=== PATIENT | female | born 1945 | race Caucasian/White ===

== ENCOUNTER → 2017-02-06 | Outpatient (CLI) | payer MEDICARE, MEDICAID ==
[~2017-02-06] MED LIST: AC325T; ACET-1697 PO; ACET-2267 PO; ACET325T38 PO; ACET650S15 PR; ACTOS15 MG PO; ALBU17AE23 IH; ALBU2.5V4 NEB; ALBU8.5H2 IH; AMLO10TA PO; AMLO10TA2 PO; AMLO10TA82 PO; AMLO5TAB2 GT; AMLO5TAB2 PO; ASP81CT PO; ASPI-266 PO; BISA10SU6 RC; BUPR150T14 PO; BUPR300T51 PO; BUSP10TA95 PO; BUSP15TA60 PO; CARV12.53 PO; CEFD300C3 PO; CEFP250T2 PO; CETI10TA17 PO; CHOL200059 PO; CHOL400T43 PO; CHOL500050 PO; CINN500C7 PO; CIPR500T4 PO; CLN.1T PO; CLOB15CR3 TP; CLON0.1T PO; CLON1PAT33 TD; CNC1KV IJ; CPR500T PO; CYCL10TA9 PO; DEXL60CA5 PO; DEXT1TAB3 PO; DIGO125T PO; DIGO250T PO; DIVA-20; DOCU-143 PO; ESTR42.52 VG; FAMO20TA5 PO; FESO8TAB PO; FLUT16SP22 NS; FNT.05A2 IV; FRSM20T PO; FURO20TA4 PO; FURO40TA4 PO; GABA-486 PO; GABA-488 PO; HCT25T PO; HYDR-3583 PO; HYDR-3729 PO; HYDR-3731 PO; HYDR-3812 PO; HYDR-3816 PO; HYDR-3820 PO; HYDR-3923 PO; HYDR-756 PO; HYDR1TAB PO; HYDR25TA4 PO; HYDR473S17 GT; IMIP50TA2 PO; INSU100C4 SQ; INSU100I10 SQ; INSU100I14 SC; INSU100I14 SQ; INSU100I16 SQ; INSU100I29 SC; INSU100V3 SC; INSU100V3 SQ; INSU100V5 SQ; IRB150T; ISOS30TA3 PO; KETO120S11 TOP; KETO120S11 TP; KETO15CR TP; LACT10SO PO; LACT10SO46 PO; LACT1CAP62 PO; LEVO500T80 PO; LEVO750T9 PO; LINA5TAB PO; LISD70CA3; LISI-552 PO; LISI1TAB10 PO; LISI20TA PO; LISI40TA PO; LORA-407 PO; LORA1TAB PO; LORA2TAB PO; MAG355OR16 PO; MAGN400O7 PO; MAGN400T39 PO; MAGN400T6 PO; MAX FREEZE TOP; METF-380 PO; METF1000 PO; METF500T4 PO; METH20TA9 PO; METH85CR TP; MULT-35 PO; NAPR-243 PO; NF-ESOM40C PO; NITR100C3 PO; NYST1000 PO; OMEG1CAP74 PO; ONDA4TAB8 PO; ONDA4VIA28 IV; OXCA300T PO; OXCA600T PO; PARO20TA57 PO; PHEN57OI3 RC; PHENOL MM; POLY17PO6 PO; POTA10CA43 PO; POTA10TA10 PO; POTA10TA6 PO; POTA20TA15 PO; PRAV10TA PO; PREG75CA PO; PRIM250T PO; PRM25T PO; PROC10TA PO; PROC10TA23 PO; PROM25TA14 PO; PROP20TA5 PO; PROP80TA3 PO; QUET100T69 PO; QUET25TA73 PO; QUET50TA55 PO; RANI150T15 PO; RIVA20TA PO; RIVA20TA2 PO; RT-ALBUINH IH; SCR1T1 PO; SENN-1 PO; SENN-140 PO; SITA1TAB2; SODIUM PHENOLATE MM; SUCR1TAB PO; SUCR1TAB36 PO; TOPI200T19 PO; TRAM50TA2 PO; TROS20TA3 PO; VANC1PLA3 IV; WARF7.5T PO; WRF10T PO; WRF5T PO; [UNRECOGNIZED DRUG - CODE]
--- OUTSIDE RECORDS SUMMARY | 2017-02-06 11:54 | XMS REPORT | Continuity of Care Document ---
Author Author [facility] Organization [facility] Address Unknown Phone Unavailable Care Team Providers Care Bath Mixer Name Role Phone PCP Unavailable Source Comments Some departments are not documenting in the electronic medical record. If you do not see the information that you expected, contact Release of Information in the Health Information Management department at [phone] for further assistance in locating additional records.[facility] Active Allergies and Adverse Reactions Allergen Noted Date Severity Reactions Comments Codeine 02/05/2013 NAUSEA AND VOMITING Estrace 02/05/2013 HEADACHE, NAUSEA AND VOMITING, DIZZINESS Pcn 02/05/2013 NAUSEA AND VOMITING Sulfur 02/05/2013 NAUSEA AND VOMITING Current Medications Prescription Sig. Disp. Refills Start End Date Status Date furosemide (LASIX) 20 mg Take 20 mg by mouth Active tablet daily. potassium chloride(+) Take 10 mEq by mouth Active (MICRO-K) 10 mEq capsule daily. primidone (MYSOLINE) 250 Take 250 mg by mouth Active mg tablet every 6 hours. prochlorperazine Take 10 mg by mouth every Active (COMPAZINE) 10 mg tablet 6 hours as needed. propranolol (INDERAL) 80 Take 80 mg by mouth three Active mg tablet times daily. traMADol (ULTRAM) 50 mg Take 50 mg by mouth every Active tablet 6 hours as needed. esomeprazole DR(+) Take 40 mg by mouth every Active (NEXIUM) 40 mg capsule morning. albuterol (VENTOLIN HFA, Inhale 2 Puffs by mouth Active PROAIR HFA) 90 every 6 hours as needed. mcg/actuation inhaler rosiglitazone/metFORMIN Take by mouth twice Active (AVANDAMET) 12/999 mg daily with meals. tablet insulin aspart (NOVOLOG) Inject 5 Units into Active 100 unit/mL flexPEN area(s) as directed three times daily with meals. 4 units with breakfast and 5 units with dinner promethazine (PHENERGAN) Take 12.5 mg by mouth Active 25 mg tablet every 6 hours as needed. LORazepam (ATIVAN) 2 mg Take 2 mg by mouth every Active tablet 6 hours as needed. methylphenidate CD Take 20 mg by mouth daily Active (METADATE CD) 20 mg before breakfast capsule topiramate (TOPAMAX) 200 Take 200 mg by mouth Active mg tablet twice daily. OXcarbazepine (TRILEPTAL) Take 300 mg by mouth Active 300 mg tablet twice daily. aspirin EC 81 mg tablet Take 81 mg by mouth Active daily. warfarin (COUMADIN) 10 mg Take 10 mg by mouth Active tablet daily. pravastatin (PRAVACHOL) Take 10 mg by mouth Active 10 mg tablet daily. fesoterodine ER(+) Take by mouth. 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 She had CT scans on 09/05 and 01/07 for non-specific right lower quadrant abdominal pain. The first CT in 09/05 did not mention AML of right kidney, but it appears that they were present on review. CT in December mentioned AML. Referred here by Dr. Luz for further evaluation. Both CT scans were non-contrast (stone protocol). L ast Assessment & Plan: Patient with 2 small AMLs of right kidney. Not likely source of her right lower quadrant discomfort (which appears either more musculoskeletal or GI in nature). I do recommend a renal ultrasound to ensure no other masses not fully evaluated on non-contrast CT scan. She would prefer to get closer to home. Given small size of angiomyolipomas and no evidence of bleeding, she does not require any intervention for those at this time. -- Renal ultrasound in 2-3 months to ensure stability of AMLs and evaluate for any additional lesions/masses. Patient will get done locally and send me results. -- F/U with Dr. Sethi in [place] for further urological issues (already has an appointment with him) -- Patient to call with any questions -- Warnings given to patient who expressed understanding. Chronic right flank pain 02/05/2013 Overview: Patient with right lower quadrant/flank pain for several months. Usually dull at best, but occasionally sharp. Has history of kidney stones, but none on recent imaging. Patient on oxycodone for pain. L ast Assessment & Plan: Kidney lesions not likely source of pain. Patient is also taking oxycodone ever 6 hours since that is the way it was prescribed. -- I have recommended that she taper off the oxycodone and start on plain tylenol since it does not appear her pain is bad enough to require narcotics -- Continue to monitor discomfort -- Stay on current bowel regimen Social History Tobacco Use Types Packs/Day Years Used Date Former Smoker Smokeless Tobacco: Never Used Alcohol Use Drinks/Week oz/Week Comments No Last Filed Vital Signs Vital Sign Reading Time Taken Blood Pressure 155/72 02/05/2013 1:30 PM CDT Pulse 89 02/05/2013 1:30 PM CDT Temperature - - Respiratory Rate - - Height 1.727 m (5' 8") 02/05/2013 1:30 PM CDT Weight 107.049 kg (236 lb) 02/05/2013 1:30 PM CDT Body Mass Index 35.89 02/05/2013 1:30 PM CDT Oxygen Saturation - - Plan of Care Health Maintenance Due Date Last Done Comments Physical (Comprehensive) 1951 Exam Pertussis Vaccine 1955 Tetanus Vaccine 1961 Breast Cancer Screening 1984 Colorectal Cancer 1994 Screening Shingles Vaccine 2004 Osteoporosis Screening 2009 Prevnar/Pneumovax (#1) 2009 Influenza Vaccine 07/26/2016 Results from Last 3 Months Not on file
--- NOTE | 2017-02-07 09:08 | ECHOCARDIOGRAPHY REPORT ---
PROCEDURE PHYSICIAN: SHEELA BANUELOS DATE OF PROCEDURE: 02/06/2017 TWO DIMENSIONAL ECHOCARDIOGRAM REPORT PRIMARY PHYSICIAN: OTHER PHYSICIAN: REFERRING PHYSICIAN: Dr. Lb Christine ORDERING PHYSICIAN: INDICATION FOR THE PROCEDURE: 1. Chest pain. 2. Atrial fibrillation. MEASUREMENTS DERIVED VALUES LV DIAMETER (LAX) NORMALS NORMALS Diastolic 4.5 (3.6-5.2) Eject. Fract. 60% (60%+/-6%) Systolic (2.3-3.9) Diastolic Vol. % Shortening (0.22-0.42) Systolic Vol. Aortic Root IVS THICKNESS Diastolic 1.2 (0.6-1.1) LVPW THICKNESS Diastolic 1.2 (0.6-1.1) LA DIAMETER Systolic 3.7 (2.1-3.7) FINDINGS: 1. Technical quality is good. 2. The left ventricle is normal in size with mild left ventricular hypertrophy noted diffusely. Systolic function appeared to be normal. Estimated ejection fraction 60%. 3. The left atrium is normal in size. No clot or thrombus were seen within the left atrium. 4. The right atrium and right ventricle are normal in size. No clot or thrombus were seen within the right side. 5. Mitral valve is calcified with mild to moderate mitral regurgitation noted by color Doppler flow. No mitral valve prolapse. No mitral valve stenosis. 6. Aortic valve is calcified. Doppler across the aortic valve estimated the peak gradient of 15 mmHg, mean gradient of 9 mmHg. There is no significant aortic valve stenosis. Mild aortic regurgitation noted by color Doppler flow. 7. Tricuspid valve is normal in morphology with mild tricuspid regurgitation noted by color Doppler flow. Doppler across tricuspid valve estimated pulmonary artery pressure of 42+ right atrial pressure. 8. Pulmonic valve is functioning normally. 9. No pericardial effusion. IN CONCLUSION: 1. Mild left ventricular hypertrophy with normal systolic function. Estimated ejection fraction 60%. 2. 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 3. Calcified aortic valve with trivial aortic valve stenosis. Mild aortic regurgitation. 4. Pulmonary hypertension with estimated pulmonary artery pressure of 50 mmHg. Job ID: [id number] Dictated Date: 02/06/2017 16:26:46 Sap Hana Developer Date: 02/07/2017 09:04:24 / ruperto
== END ==
LOC: CARD 11:50
PROVIDERS: ATTEND Internal Medicine Cardiovascular Disease
DX: I48.0 Paroxysmal atrial fibrillation (principal); R07.9 Chest pain, unspecified; I10 Essential (primary) hypertension; E78.2 Mixed hyperlipidemia; G25.0 Essential tremor
CPT/HCPCS: 93306

== ENCOUNTER 2017-03-04 22:17 | Observation (INO) | payer MEDICARE, MEDICAID ==
[~2017-03-04] VITALS: Ht 172.7 cm; Wt 91.3 kg
[~2017-03-04 22:17] MED LIST changes: -CHOL500050 PO; -CIPR500T4 PO; -CNC1KV IJ; -DIGO125T PO; -HYDR-3729 PO; -HYDR-756 PO; -LINA5TAB PO; -PREG75CA PO; -TROS20TA3 PO
[2017-03-04] MEDS ORDERED: ASPIRIN 81 MG CHEW (CHILDREN'S ASA) PO ONE (22:30)
[2017-03-04 22:35] LABS: BASOPHILS # (AUTO) 0.1 10^3/uL (0.0-0.1); BASOPHILS % (AUTO) 1 % (0-10); EOSINOPHILS # (AUTO) 0.2 10^3/uL (0.0-0.3); EOSINOPHILS % (AUTO) 2 % (0-10); LYMPHOCYTES # (AUTO) 3.7 X 10^3 (1.0-4.0); LYMPHOCYTES % (AUTO) 30 % (12-44); MEAN CORPUSCULAR HEMOGLOBIN 30 PG (25-34); MEAN CORPUSCULAR HGB CONC 33 G/DL (32-36); MEAN CORPUSCULAR VOLUME 90 FL (80-99); MONOCYTES # (AUTO) 0.8 X 10^3 (0.0-1.0); MONOCYTES % (AUTO) 6 % (0-12); NEUTROPHILS # (AUTO) 7.8 X 10^3 (1.8-7.8); NEUTROPHILS % (AUTO) 62 % (42-75); PLATELET COUNT 262 10^3/uL (130-400); RED BLOOD COUNT 4.79 10^6/uL (4.35-5.85); RED CELL DISTRIBUTION WIDTH 14.3 % (10.0-14.5); WHITE BLOOD COUNT 12.6 10^3/uL (4.3-11.0)
[2017-03-04 22:45] LABS: INR 1.2 (0.8-1.4); PROTHROMBIN TIME PATIENT 14.8 SEC (12.2-14.7)
[2017-03-04] MEDS ORDERED: LINA5TAB PO (22:47)
[2017-03-04] MEDS ORDERED: METF500T4 PO (22:47)
[2017-03-04] MEDS ORDERED: TROS20TA3 PO (22:47)
[2017-03-04] MEDS ORDERED: PREG75CA PO (22:47)
[2017-03-04 22:52] LABS: ALANINE AMINOTRANSFERASE 20 U/L (0-55); ALBUMIN 3.3 G/DL (3.2-4.5); ANION GAP 13 MMOL/L (5-14); ASPARTATE AMINO TRANSFERASE 60 U/L (5-34); BILIRUBIN,TOTAL 0.4 MG/DL (0.1-1.0); BLOOD UREA NITROGEN 12 MG/DL (7-18); BUN/CREATININE RATIO 14; CALCIUM 9.5 MG/DL (8.5-10.1); CARBON DIOXIDE 29 MMOL/L (21-32); CHLORIDE 102 MMOL/L (98-107); CREATININE SERUM 0.84 MG/DL (0.60-1.30); GFR ESTIMATED > 60; GLUCOSE 117 MG/DL (70-105); POTASSIUM 2.9 MMOL/L (3.6-5.0); SODIUM 144 MMOL/L (135-145); TOTAL PROTEIN 7.3 G/DL (6.4-8.2)
[2017-03-04 22:59] LABS: MYOGLOBIN SERUM 30.2 NG/ML (10.0-92.0)
[2017-03-04 23:11] VITALS: BP 173/80
[2017-03-04] MEDS ORDERED: NS W/KCL 20 MEQ/L 1,000 ML IV ONE (23:30)
[2017-03-05] VITALS (13 sets, daily range): BP systolic 170–215; BP diastolic 85–104
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
[2017-03-05] MEDS ORDERED: HYDROcodone/APAP 5 MG/325 MG (LORTAB) TAB PO ONE (00:45)
[2017-03-05] MEDS ORDERED: NITROGLYCERIN SUBLINGUAL 0.4 MG TAB (NITROSTAT) SL PRN (01:30)
[2017-03-05] MEDS ORDERED: morphine INJ 4 MG/ML 1 ML (VIAL/SYRINGE) IV PRN (01:30)
[2017-03-05] MEDS: NS W/KCL 40 MEQ/L 1,000 ML IV SCH ×2 (01:59→09:30)
[2017-03-05] MEDS ORDERED: lisINopril 20 MG (ZESTRIL) TAB PO ONE (04:30)
[2017-03-05 05:05] LABS: BASOPHILS # (AUTO) 0.1 10^3/uL (0.0-0.1); BASOPHILS % (AUTO) 1 % (0-10); EOSINOPHILS # (AUTO) 0.1 10^3/uL (0.0-0.3); EOSINOPHILS % (AUTO) 1 % (0-10); LYMPHOCYTES # (AUTO) 2.7 X 10^3 (1.0-4.0); LYMPHOCYTES % (AUTO) 18 % (12-44); MEAN CORPUSCULAR HEMOGLOBIN 30 PG (25-34); MEAN CORPUSCULAR HGB CONC 33 G/DL (32-36); MEAN CORPUSCULAR VOLUME 91 FL (80-99); MEAN PLATELET VOLUME 11.8 FL (7.4-10.4); MONOCYTES # (AUTO) 0.8 X 10^3 (0.0-1.0); MONOCYTES % (AUTO) 5 % (0-12); NEUTROPHILS # (AUTO) 11.3 X 10^3 (1.8-7.8); NEUTROPHILS % (AUTO) 76 % (42-75); PLATELET COUNT 243 10^3/uL (130-400); RED CELL DISTRIBUTION WIDTH 14.2 % (10.0-14.5); WHITE BLOOD COUNT 14.9 10^3/uL (4.3-11.0)
[2017-03-05 05:32] LABS: ANION GAP 13 MMOL/L (5-14); BLOOD UREA NITROGEN 11 MG/DL (7-18); BUN/CREATININE RATIO 15; CALCIUM 9.2 MG/DL (8.5-10.1); CARBON DIOXIDE 23 MMOL/L (21-32); CHLORIDE 106 MMOL/L (98-107); CREATININE SERUM 0.73 MG/DL (0.60-1.30); GFR ESTIMATED > 60; GLUCOSE 173 MG/DL (70-105); POTASSIUM 3.6 MMOL/L (3.6-5.0); SODIUM 142 MMOL/L (135-145)
[2017-03-05 06:01] LABS: CHOLESTEROL 165 MG/DL (< 200); DIRECT LDL 81 MG/DL (1-129); TRIGLYCERIDES 107 MG/DL (<150); VLDL CHOLESTEROL 21 MG/DL (5-40)
--- NOTE | 2017-03-05 07:19 | Consultation-Cardiology ---
HPI-Cardiology Cardiology Consultation Date of Consultation 03/05/17 Date of Admission Indication: chest pain HPI 71 years old lady with history of mild coronary artery disease per cardiac catheterization done twice in 2010 and 2013. Was in her usual state of health until last night while she was laying down in bed she had sudden onset sharp chest pain in the retrosternal area, continue to wax and wane, came into the emergency room where she was admitted. She was hypertensive. Currently feeling better although her blood pressure has been elevated for the past week. Denied any palpitation, no syncope, noted to be in atrial fibrillation. Home Medications & Allergies Allergies: Coded Allergies: Penicillins (Verified Allergy, Mild, 09/15/15) codeine (Verified Allergy, Mild, PT TAKES HYDROCODONE AT HOME, 10/17/15) nitrofurantoin (Verified Allergy, Mild, RASH, 11/13/14) ITCHING/RASH sulfur dioxide (Verified Allergy, Unknown, 09/15/15) Home Medication List Reviewed: Yes JVG-Valbph-Fzorug Hx Patient Social History Marital Status: Employed/Student: retired Alcohol Use: Denies Use Recreational Drug Use: No Smoking Status: Never a Smoker 2nd Hand Smoke Exposure: No Recent Foreign Travel: No Recent Infectious Disease Expo: No Recent Hopitalizations: No Physical Abuse Screen: No Sexual Abuse: No Immunizations Up To Date Tetanus Booster (TDap): Unknown Date of Pneumonia Vaccine: Sep 05, 2012 Date of Influenza Vaccine: Aug 25, 2015 Past Medical History past medical history as discussed below Family Medical History Significant Family History: No Pertinent Family Hx Family History: G8 BROTHER FH: cancer G8 SISTER FH: kidney cancer G8 BROTHER Diabetes mellitus G8 BROTHER BULBAR POLIO UNCLE Diabetes mellitus Constitutional: see HPI, malaise, weakness EENTM: no symptoms reported, see HPI Respiratory: no symptoms reported, see HPI Cardiovascular: see HPI, chest pain, No edema, No Hx of Intervention, No palpitations, No syncope, No vascular heart diseas, No other Gastrointestinal: no symptoms reported, see HPI Genitourinary: no symptoms reported, see HPI Musculoskeletal: no symptoms reported, see HPI Skin: no symptoms reported, see HPI Psychiatric/Neurological: No Symptoms Reported, See HPI Reviewed Test Results Reviewed Test Results Lab Laboratory Tests Test 03/04/17 22:25 03/05/17 04:50 Range/Units White Blood Count 12.6 H 14.9 H 4.3-11.0 10^3/uL Red Blood Count 4.79 4.20 L 4.35-5.85 10^6/uL Hemoglobin 14.2 12.6 11.5-16.0 G/DL Hematocrit 43 38 35-52 % Mean Corpuscular Volume 90 91 80-99 FL Mean Corpuscular Hemoglobin 30 30 25-34 PG Mean Corpuscular Hemoglobin Concent 33 33 32-36 G/DL Red Cell Distribution Width 14.3 14.2 10.0-14.5 % Platelet Count 262 243 130-400 10^3/uL Mean Platelet Volume 12.0 H 11.8 H 7.4-10.4 FL Neutrophils (%) (Auto) 62 76 H 42-75 % Lymphocytes (%) (Auto) 30 18 12-44 % Monocytes (%) (Auto) 6 5 0-12 % Eosinophils (%) (Auto) 2 1 0-10 % Basophils (%) (Auto) 1 1 0-10 % Neutrophils # (Auto) 7.8 11.3 H 1.8-7.8 X 10^3 Lymphocytes # (Auto) 3.7 2.7 1.0-4.0 X 10^3 Monocytes # (Auto) 0.8 0.8 0.0-1.0 X 10^3 Eosinophils # (Auto) 0.2 0.1 0.0-0.3 10^3/uL Basophils # (Auto) 0.1 0.1 0.0-0.1 10^3/uL Prothrombin Time 14.8 H 12.2-14.7 SEC INR Comment 1.2 0.8-1.4 Activated Partial Thromboplast Time 30 24-35 SEC Sodium Level 144 142 135-145 MMOL/L Potassium Level 2.9 L 3.6 3.6-5.0 MMOL/L Chloride Level 102 106 98-107 MMOL/L Carbon Dioxide Level 29 23 21-32 MMOL/L Anion Gap 13 13 5-14 MMOL/L Blood Urea Nitrogen 12 11 7-18 MG/DL Creatinine 0.84 0.73 0.60-1.30 MG/DL Estimat Glomerular Filtration Rate > 60 > 60 BUN/Creatinine Ratio 14 15 Glucose Level 117 H 173 H 70-105 MG/DL Calcium Level 9.5 9.2 8.5-10.1 MG/DL Magnesium Level 2.0 1.8-2.4 MG/DL Total Bilirubin 0.4 0.1-1.0 MG/DL Aspartate Amino Transf (AST/SGOT) 60 H 5-34 U/L Alanine Aminotransferase (ALT/SGPT) 20 0-55 U/L Alkaline Phosphatase 65 40-136 U/L Myoglobin 30.2 10.0-92.0 NG/ML Troponin I < 0.30 < 0.30 <0.30 NG/ML C-Reactive Protein High Sensitivity 0.53 H 0.00-0.50 MG/DL Total Protein 7.3 6.4-8.2 G/DL Albumin 3.3 3.2-4.5 G/DL Digoxin Level < 0.30 L 0.80-2.00 NG/ML Triglycerides Level 107 <150 MG/DL Cholesterol Level 165 < 200 MG/DL LDL Cholesterol Direct 81 1-129 MG/DL VLDL Cholesterol 21 5-40 MG/DL HDL Cholesterol 61 H 40-60 MG/DL Physical Exam Vital Signs Vital Sign - Last 12Hours Capillary Refill : Less Than 3 Seconds General Appearance: No Apparent Distress, WD/WN Eyes: Bilateral Eye EOMI, Bilateral Eye Normal Inspection, Bilateral Eye PERRL HEENT: PERRL/EOMI, TMs Normal, Normal ENT Inspection, Pharynx Normal Neck: Full Range of Motion, Normal Inspection, Non Tender, Supple, Carotid Bruit Respiratory: Chest Non Tender, Lungs Clear, Normal Breath Sounds, No Accessory Muscle Use, No Respiratory Distress Cardiovascular: No Edema, No Gallop, No JVD, Normal Peripheral Pulses, Systolic Murmur, Irregularly Irregular Gastrointestinal: Normal Bowel Sounds, No Organomegaly, No Pulsatile Mass, Non Tender, Soft Back: Normal Inspection, No CVA Tenderness, No Vertebral Tenderness Extremity: Normal Capillary Refill, Normal Inspection, Normal Range of Motion, Non Tender, No Calf Tenderness, Pedal Edema Neurologic/Psychiatric: Alert, Oriented x3, No Motor/Sensory Deficits, Normal Mood/Affect Skin: Normal Color, Warm/Dry Lymphatic: No Adenopathy A/P-Cardiology Admission Diagnosis chest pain nonspecific etiology Hypertensive emergency Paroxysmal atrial fibrillation Coronary artery disease Assessment/Plan Chest pain nonspecific etiology, atypical in presentation, extensive cardiac workup in the past, so far her EKG showed atrial fibrillation with occasional PVCs, cardiac enzymes has been normal. I reassured her, it could be secondary to her elevated blood pressure or gastroesophageal reflux disease noncardiac pain. Coronary artery disease, cardiac catheterization was carried out in 2010 and it was normal, repeat cardiac catheterization was done in October 2014 with IVS done by Dr. Carney and showed 30-40 percent stenosis in the LAD, 10 percent stenosis in the left main, nonobstructive disease. Cardiac enzymes are normal at this time. Paroxysmal atrial fibrillation, status post electrical cardioversion, back to atrial fibrillation. Rate is controlled, maintained on Coreg 12.5 mg twice daily. Hypertensive emergency, poorly controlled. History of syncope in the past. I will add lisinopril and evaluate her tolerance and response. History of Syncope-unknown etiology. Patient underwent cardiac catheterization in 2013 revealing nonobstructive disease. Tilt table test negative, 2-D echocardiogram revealed normal EF. Patient denies any further episodes. Continue to monitor. [id number] score is 4, yearly risk patient is 4 percent, started on Xarelto, doing well. Continue on current medication. Patent haw[place], 1.1 cm with [id number] shunt per 2-D echocardiogram 2014, continue to monitor Pulmonary hypertension, followed and managed by primary care physician. Chronic DVT to lower extremity-no changes recommended at this time, maintained on Xarelto. Hyperlipidemia, last lipid profile was done in June 2016 showing total cholesterol 139, triglyceride 70, LDL 79, HDL 46. Continue to monitor Mild bilateral carotid stenosis, last ultrasound was done in June 2016, continue to monitor History of dyspnea on exertion, chronic, no changes from baseline. Continue to monitor Mild to moderate mitral regurgitation, Mild tricuspid regurgitation, continue to monitor at this time., No change from baseline. Obesity, BMI is 30, lost significant weight, managed by Dr Christine Benign essential tremor Diabetes mellitus, managed by primary care physician History of renal cysts, has been followed by Dr. Sethi. History of breast cancer, followed and managed by Dr. Fernández. Bipolar disorder Mnires disease Anxiety Depression Obstructive sleep apnea using Bi-PAP Clinical Quality Measures AMI/AHF: ASA po Prior to arrival: No DVT/VTE Risk/Contraindication: Risk Factor Score Per Nursin RFS Level Per Nursing on Admit: 4+=Very High SHEELA BANUELOS MD Mar 05, 2017 07:19
--- NOTE | 2017-03-05 08:09 | Diagnostic Imaging Report ---
Portable upright radiograph of the chest. INDICATION: Chest pain. FINDINGS: The heart is mildly enlarged. There is diffuse interstitial thickening with right perihilar atelectasis. There is also prominent right perihilar opacity measuring 3 cm. The left lung demonstrates no focal infiltrate. No pleural effusion or pneumothorax. IMPRESSION: Prominent 3-cm opacity in the right perihilar region seen on this portable radiograph. Better evaluation with PA and lateral radiographs or CT chest is recommended. Dictated by: Dictated on workstation # [id number]
[2017-03-05] MEDS ORDERED: PATIENT MAY USE OWN MEDS, ALL MC SCH (08:15)
[2017-03-05] MEDS ORDERED: lisINopril 5 MG (PRINIVIL) TABLET PO SCH (09:00)
[2017-03-05] MEDS ORDERED: ASPIRIN E.C. 325 MG (ECOTRIN) TABLET PO SCH (09:00)
[2017-03-05] MEDS ORDERED: FUROSEMIDE 40 MG (LASIX) TAB PO SCH (09:00)
[2017-03-05] MEDS ORDERED: DIGOXIN 0.25 MG (LANOXIN) TAB PO SCH (09:00)
[2017-03-05] MEDS ORDERED: CARVEDILOL 12.5 MG (COREG) TABLET PO SCH ×2 (09:00→09:22)
[2017-03-05] MEDS ORDERED: CNC1KV IJ (09:12)
[2017-03-05] MEDS ORDERED: CIPR500T4 PO (09:12)
[2017-03-05] MEDS ORDERED: POTA10TA10 PO (09:12)
[2017-03-05] MEDS ORDERED: HYDR-756 PO (09:12)
[2017-03-05] MEDS ORDERED: DIGO125T PO (09:12)
[2017-03-05] MEDS ORDERED: CHOL500050 PO (09:12)
[2017-03-05] MEDS ORDERED: LISI-552 PO (10:18)
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
[2017-03-05] MEDS ORDERED: MAGNESIUM OXIDE (MAG-OX)400 MG TAB PO SCH (12:00)
[2017-03-05] MEDS ORDERED: RIVAROXABAN 20 MG TABLET (XARELTO) PO SCH (18:00)
[2017-03-05] MEDS ORDERED: KCL 20 MEQ TAB (K-DUR) PO SCH (21:00)
[2017-03-13] MEDS ORDERED: HYDR-3729 PO (09:16)
== END 2017-03-05 10:19 | disposition home or self-care (01) ==
LOC: EDUNIT# 22:17 → ER 22:18 → UNDOADMOB 03-05 00:09 → ICU 03-05 00:09 → UNDODISOB 03-05 10:19
PROVIDERS: ADMIT Internal Medicine; ATTEND Internal Medicine
DX: R07.9 Chest pain, unspecified (principal); I16.1 Hypertensive emergency; I10 Essential (primary) hypertension; I25.10 Atherosclerotic heart disease of native coronary artery without angina pectoris; I48.0 Paroxysmal atrial fibrillation; I27.2 Other secondary pulmonary hypertension; Z86.718 Personal history of other venous thrombosis and embolism; E78.5 Hyperlipidemia, unspecified; I65.23 Occlusion and stenosis of bilateral carotid arteries; I08.1 Rheumatic disorders of both mitral and tricuspid valves; E66.9 Obesity, unspecified; G25.0 Essential tremor; F31.9 Bipolar disorder, unspecified; G47.33 Obstructive sleep apnea (adult) (pediatric); E87.6 Hypokalemia; Z68.30 Body mass index [BMI] 30.0-30.9, adult
CPT/HCPCS: 36415; 71010; 80048; 80053; 80061; 80162; 82962; 83735; 83874; 84484; 85025; 85610; 85730; 86141; 93005; 93041; 96360; G0378

== ENCOUNTER 2017-03-06 09:10 | Outpatient (CLI) | payer MEDICARE, MEDICAID ==
[~2017-03-06] VITALS: Ht 172.7 cm; Wt 89.8 kg
[~2017-03-06 09:10] MED LIST changes: +CHOL500050 PO; +CIPR500T4 PO; +CNC1KV IJ; +DIGO125T PO; +HYDR-756 PO; +LINA5TAB PO; +PREG75CA PO; +TROS20TA3 PO
[2017-03-06 09:34] VITALS: BP 150/74
[2017-03-13] MEDS ORDERED: HYDR-3729 PO (09:16)
== END 2017-03-06 10:27 | disposition home or self-care (01) ==
LOC: PREOP 09:10
PROVIDERS: ATTEND Podiatrist
DX: Z01.818 Encounter for other preprocedural examination (principal); Z11.2 Encounter for screening for other bacterial diseases; M21.6X1 Other acquired deformities of right foot
CPT/HCPCS: 87081

== ENCOUNTER → 2017-03-28 | Outpatient (CLI) | payer MEDICARE, MEDICAID ==
[~2017-03-28] MED LIST changes: +HYDR-3729 PO
--- NOTE | 2017-03-28 11:18 | Diagnostic Imaging Report ---
EXAMINATION: Right lower extremity duplex venous ultrasound. TECHNIQUE: DVT protocol. Multiple sonographic images with color Doppler and waveform interrogation were performed of the right lower extremity veins with compression and augmentation maneuvers. INDICATION: Right leg edema and pain. FINDINGS: The right lower extremity veins from the groin to below the knee veins were examined with normal color-flow, compressibility and normal waveform demonstrated. The great saphenous vein is patent. IMPRESSION: No evidence of DVT in the right lower extremity. Dictated by: Dictated on workstation # [id number]
== END ==
LOC: RAD 10:22
PROVIDERS: ATTEND Podiatrist
DX: M79.604 Pain in right leg (principal)

== ENCOUNTER → 2017-04-12 | Outpatient (CLI) | payer MEDICARE, MEDICAID ==
--- NOTE | 2017-04-12 09:44 | Diagnostic Imaging Report ---
INDICATION: Pelvic pain TECHNIQUE: Multiple real time redmond scale sonographic images were obtained of the pelvis transabdominally. CORRELATION STUDY: None FINDINGS: UTERUS/ENDOMETRIUM: Absent. RIGHT OVARY: Not visualized. LEFT OVARY: Not visualized. Left portion urinary bladder appearing unremarkable. No definitive abnormal pelvic mass lesion. No significant free pelvic fluid. IMPRESSION: 1. Nonvisualization of the uterus and/or either ovary. No abnormal pelvic mass lesion. Dictated by: Dictated on workstation # [id number]
--- NOTE | 2017-04-12 14:42 | Diagnostic Imaging Report ---
PROCEDURE: US abdomen complete. TECHNIQUE: Multiple real-time grayscale images were obtained over the abdomen in various projections. INDICATION: Abdominal and pelvic pain. FINDINGS: The pancreas is largely obscured by bowel gas. The liver is fairly homogeneous with no focal lesion seen. Hepatopetal flow in the portal vein is demonstrated. The gallbladder has been surgically removed. The CBD is 11 mm in caliber with no significant intrahepatic biliary dilatation seen. This is the probably normal for the patient's age and after cholecystectomy. The spleen has been removed. The abdominal aorta distal aspect is visualized and appears grossly unremarkable. The right kidney is 13.3 cm and the left kidney is 13.4 cm in length. There is no hydronephrosis. An exophytic simple-appearing large cyst from the left kidney upper pole measuring 13.8 x 13 x 8 cm is seen with no solid component. No fluid collection or free fluid in the abdomen is seen. IMPRESSION: 1. Large simple cyst in the left kidney with no solid component identified. 2. Minimal dilatation of the CBD probably normal for the patient's age and after cholecystectomy. If there are clinical signs of biliary obstruction, then evaluation with MRCP could be considered. Dictated by: Dictated on workstation # [id number]
== END ==
LOC: RAD 08:15
PROVIDERS: ATTEND Nurse Practitioner Family
DX: R10.2 Pelvic and perineal pain (principal); N28.1 Cyst of kidney, acquired
CPT/HCPCS: 76700; 76830; 76856

== ENCOUNTER → 2017-04-23 | Outpatient (CLI) | payer MEDICARE, MEDICAID ==
--- NOTE | 2017-04-23 18:48 | Diagnostic Imaging Report ---
Exam: Renal ultrasound. Indication: Right flank pain. Left renal cyst. Comparison: 04/17/2016 Findings: The right kidney is 11.6 and the left kidney is 12.8 cm in length. There is no hydronephrosis or focal lesion. A large simple-appearing cyst is seen arising from the medial inferior aspect of the left kidney measuring 13.4 x 9.4 x 10 cm. Another 2 cm simple cyst in the lower pole of the left kidney is seen. Also, less prominently seen on the current exam is a 1.6 cm hyperechoic lesion in the upper pole of the right kidney, similar to prior studies, suggestive of angiomyolipoma. The urinary bladder appears unremarkable. Impression: 1. A 13.4 cm simple-appearing cyst at the inferior aspect of the left kidney, similar to the previous exam. 2. 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 Dictated by: Dictated on workstation # [id number]
== END ==
LOC: RAD 14:02
PROVIDERS: ATTEND Urology
DX: N28.1 Cyst of kidney, acquired (principal)
CPT/HCPCS: 76770

== ENCOUNTER 2017-05-09 12:00 | Outpatient (RCR) | payer MEDICARE, MEDICAID ==
[~2017-05-09 12:00] MED LIST changes: -KETO15CR TP; +KETO15CR2 TP; -VANC1PLA3 IV; +VANC1PLA6 IV
[2017-05-09 12:45] LABS: BASOPHILS % (AUTO) 0 % (0-10); EOSINOPHILS # (AUTO) 0.2 10^3/uL (0.0-0.3); EOSINOPHILS % (AUTO) 2 % (0-10); LYMPHOCYTES % (AUTO) 32 % (12-44); MEAN CORPUSCULAR HEMOGLOBIN 30 PG (25-34); MEAN CORPUSCULAR HGB CONC 33 G/DL (32-36); MEAN CORPUSCULAR VOLUME 90 FL (80-99); MEAN PLATELET VOLUME 11.6 FL (7.4-10.4); MONOCYTES # (AUTO) 0.8 X 10^3 (0.0-1.0); MONOCYTES % (AUTO) 7 % (0-12); NEUTROPHILS # (AUTO) 7.3 X 10^3 (1.8-7.8); NEUTROPHILS % (AUTO) 59 % (42-75); PLATELET COUNT 260 10^3/uL (130-400); RED BLOOD COUNT 4.63 10^6/uL (4.35-5.85); RED CELL DISTRIBUTION WIDTH 14.6 % (10.0-14.5); WHITE BLOOD COUNT 12.4 10^3/uL (4.3-11.0)
[2017-05-09 13:02] LABS: ALANINE AMINOTRANSFERASE 11 U/L (0-55); ALBUMIN 3.4 GM/DL (3.2-4.5); ANION GAP 10 MMOL/L (5-14); ASPARTATE AMINO TRANSFERASE 17 U/L (5-34); BILIRUBIN,TOTAL 0.5 MG/DL (0.1-1.0); BLOOD UREA NITROGEN 16 MG/DL (7-18); BUN/CREATININE RATIO 21 (0-20); CALCIUM 9.4 MG/DL (8.5-10.1); CARBON DIOXIDE 25 MMOL/L (21-32); CHLORIDE 107 MMOL/L (98-107); CREATININE SERUM 0.78 MG/DL (0.60-1.30); GFR ESTIMATED > 60; GLUCOSE 105 MG/DL (70-105); POTASSIUM 3.8 MMOL/L (3.6-5.0); SODIUM 142 MMOL/L (135-145); TOTAL PROTEIN 6.8 GM/DL (6.4-8.2)
[2017-09-04] MEDS ORDERED: HYDR-3820 PO (12:24)
== END 2017-08-07 | disposition home or self-care (01) ==
LOC: ONC 12:00
PROVIDERS: ATTEND Internal Medicine Hematology & Oncology
DX: Z08 Encounter for follow-up examination after completed treatment for malignant neoplasm (principal); Z85.3 Personal history of malignant neoplasm of breast; I10 Essential (primary) hypertension; E78.5 Hyperlipidemia, unspecified; E11.9 Type 2 diabetes mellitus without complications; Z86.718 Personal history of other venous thrombosis and embolism; Z90.11 Acquired absence of right breast and nipple; Z92.21 Personal history of antineoplastic chemotherapy; Z79.01 Long term (current) use of anticoagulants; Z79.4 Long term (current) use of insulin
CPT/HCPCS: 80053; 85025; 99213

== ENCOUNTER 2017-05-29 05:34 | Outpatient (CLI) | payer MEDICARE, MEDICAID ==
[~2017-05-29] VITALS: Ht 172.7 cm; Wt 89.8 kg
[2017-09-04] MEDS ORDERED: HYDR-3820 PO (12:24)
== END 2017-05-29 15:35 ==
LOC: PREOP 05:34
PROVIDERS: ATTEND Internal Medicine
DX: Z01.818 Encounter for other preprocedural examination (principal); K62.5 Hemorrhage of anus and rectum

== ENCOUNTER 2017-05-31 06:27 | Day surgery (SDC) | payer MEDICARE, MEDICAID ==
[~2017-05-31] VITALS: Ht 172.7 cm; Wt 89.8 kg
[2017-05-31] MEDS ORDERED: 1/2 NS IV SOLUTION 1,000 ML IV STA (07:10)
[2017-05-31] MEDS ORDERED: LIDOCAINE JELLY 2% (XYLOCAINE) 5 ML TUBE MM PRN (07:15)
[2017-05-31 07:34] VITALS: BP 193/80
--- NOTE | 2017-05-31 07:39 | Pre-Op Note & Conscious Sedat ---
Pre-Operative Progress Note H&P Reviewed The H&P was reviewed, patient examined and no changes noted. Date H&P Reviewed: May 31, 2017 Time H&P Reviewed: 07:39 Conscious Sedation Pre-Proced ASA Class: 2 Airway Mallampati Classification: ([place] appropriate class) I. II. III, IV Lungs Heart ASA score ASA 1: a normal healthy patient ASA 2: a patient with a mild systemic disease (mid diabetes, controlled hypertension, obesity ASA 3: a patient with a severe systemic disease that limits activity (angina , COPD, prior Myocardial infarction) ASA 4: a patient with an incapacitating disease that is a constant threat to life (CHF, renal failure) ASA 5: a moribund patient not expected to survive 24 hrs. (ruptured aneurysm) ASA 6: a declared brain patient whose organs are being harvested. For emergent operations, add the letter E after the classification Grade 3 Sedation Plan: Analgesia, Amnesia, Plan communicated to team members, Discussed options with patient/fam, Discussed risks with patient/fam Note The patient is an appropriate candidate to undergo the planned procedure, sedation, and anesthesia. The patient immediately re-assessed prior to indication. YANG VALERA MD May 31, 2017 07:39
[2017-05-31] MEDS ORDERED: LIDOCAINE JELLY 2% (XYLOCAINE) 5 ML TUBE ONE (07:45)
[2017-05-31] MEDS ORDERED: fentaNYL INJECTION 100 MCG/2 ML AMP ONE (07:45)
[2017-05-31] MEDS ORDERED: MIDAZOLAM 2 MG/2 ML (VERSED) VIAL ONE ×2 (07:46)
[2017-05-31] MEDS: fentaNYL INJECTION 100 MCG/2 ML AMP IVP PRN ×2 (08:17→08:20)
[2017-05-31] MEDS: MIDAZOLAM 2 MG/2 ML (VERSED) VIAL IVP PRN ×2 (08:18→08:21)
[2017-05-31 09:15] VITALS: BP 185/79
[2017-05-31 09:45] VITALS: BP 166/91
[2017-05-31 10:05] VITALS: BP 166/91
--- NOTE | 2017-06-02 00:06 | PROCEDURE REPORT ---
PROCEDURE PHYSICIAN: YANG VALERA DATE OF PROCEDURE: 05/31/2017 INDICATION FOR THE PROCEDURE: Diagnostic colonoscopy. The patient has past history of colon polyps and was noticing some intermittent bright red blood per rectum. The patient was placed in left lateral decubitus position. Prior to undergoing colonoscopy, digital rectal evaluation was performed. Anal sphincter tone was normal and the perianal reflex was intact. The colonoscope was then inserted into the rectum and under direct visualization advanced to the cecum. The cecum was identified by identification of the ileocecal valve and cecal strap. Photographic documentation was obtained. A careful inspection was made as colonoscope withdrawn. The patient tolerated the procedure well. FINDINGS: No evidence for internal or external hemorrhoids. The rectum was unremarkable. Mild to moderate number of medium to large sized diverticulum were noted, confined to the sigmoid colon. There was no evidence for diverticulitis. The proximal transverse colon was unremarkable. A diminutive adenomas appearing polyp measuring 3 x 4 mm in size was noted in the mid transverse colon. It was biopsied and ablated, and submitted for histopathology. A similar sessile polyp was noted in the hepatic flexure. It was biopsied, ablated, and submitted for histopathology. The remainder of the colonoscopy was unremarkable. ASSESSMENT: Two diminutive polyps were removed; one from the transverse colon and the other one from the hepatic flexure via hot forceps with no significant blood loss. It was advised the patient abstain from Xarelto until next Saturday and then resume. She had mild to moderate diverticular disease confined to the sigmoid colon without evidence for diverticulitis. We will need to await histopathology report before advocating timing of future surveillance colonoscopy. I thank you for the referral. Sincerely, Job ID: [id number] Dictated Date: 05/31/2017 11:58:36 Cooker Cleaner Date: 06/02/2017 00:00:42 / ruperto OLIVA
--- OUTSIDE RECORDS SUMMARY | 2017-06-04 06:08 | XMS REPORT | Continuity of Care Document ---
Author Author [facility] Organization [facility] Address Unknown Phone Unavailable Care Team Providers Care Barber Shop Manager Name Role Phone PCP Unavailable Source Comments Some departments are not documenting in the electronic medical record. If you do not see the information that you expected, contact Release of Information in the Health Information Management department at [phone] for further assistance in locating additional records.[facility] Active Allergies and Adverse Reactions Allergen Noted [...] results. -- F/U with Dr. Sethi in [place] for further urological issues (already has an [...] Screening 2009 Prevnar/Pneumovax (#1) 2009 Influenza Vaccine 07/26/2017 Results from Last 3 Months Not on file
--- OUTSIDE RECORDS SUMMARY | 2017-06-04 06:24 | XMS REPORT | Continuity of Care Document ---
Author Author [facility] Organization [facility] Address Unknown Phone Unavailable Allergies Active Description Code Type Severity Reaction Onset Reported/Identified Relationship to Patient Clinical Status Yes Sulfa (Sulfonamide Antibiotics) [id number] Drug Allergy Mild N/A 03/27/2009 Yes codeine [id number] Drug Allergy Mild N/A 09/15/2015 Yes codeine [id number] Drug Allergy Mild PT TAKES HYDROC 03/06/2017 Yes nitrofurantoin [id number] Drug Allergy Mild RASH 03/06/2017 Yes Penicillins [id number] Drug Allergy Mild N/A 03/06/2017 Yes sulfur dioxide [id number] Drug Allergy Unknown N/A 03/06/2017 Medications Problems Date Dx Coded Attending Type Code Diagnosis Diagnosed By 08/29/2009 Ot 726.0 08/29/2009 Ot 905.2 08/29/2009 Ot E929.3 08/29/2009 Ot V57.1 09/18/2009 Ot 250.00 09/18/2009 Ot 451.2 09/29/2009 Ot 786.09 11/28/2009 Ot 250.00 11/28/2009 Ot 451.2 04/03/2010 Ot 250.00 04/03/2010 Ot 333.1 04/03/2010 Ot 401.9 04/03/2010 Ot 714.0 04/03/2010 Ot 724.2 04/03/2010 Ot 729.1 04/03/2010 Ot V10.3 04/03/2010 Ot V45.71 04/03/2010 Ot V54.11 04/03/2010 Ot V57.1 04/03/2010 Ot V58.43 05/24/2010 Ot 250.00 05/24/2010 Ot 451.2 08/24/2010 Ot 250.00 08/24/2010 Ot 451.2 04/30/2011 Ot 250.00 DIAB TJ WO COMPL, TYPE II OR UNSPEC TY 04/30/2011 Ot 251.0 HYPOGLYCEMIC COMA 04/30/2011 Ot 401.9 HYPERTENSION NOS 04/30/2011 Ot E932.3 ADV EFF INSULIN/ANTIDIAB 07/18/2011 Ot 272.4 HYPERLIPIDEMIA NEC/NOS 07/18/2011 Ot 327.23 OBSTRUCTIVE SLEEP APNEA (ADULT) (PEDIATR 07/18/2011 Ot 333.1 TREMOR NEC 07/18/2011 Ot 401.9 HYPERTENSION NOS 07/18/2011 Ot 416.8 CHR PULMON HEART DIS NEC 07/18/2011 Ot 496 CHR AIRWAY OBSTRUCT NEC 07/18/2011 Ot 794.30 ABN CARDIOVASC STUDY NOS 07/18/2011 Ot V10.3 HX OF BREAST MALIGNANCY 07/18/2011 Ot V58.67 LONG-TERM (CURRENT) USE OF INSULIN 07/18/2011 Ot V58.69 OTH MED,LT,CURRENT USE 09/06/2011 Ot 250.00 DIAB TJ WO COMPL, TYPE II OR UNSPEC TY 09/06/2011 Ot 354.0 CARPAL TUNNEL SYNDROME 09/06/2011 Ot V58.61 ANTICOAGULANTS,LT,CURRENT USE 09/06/2011 Ot V58.69 OTH MED,LT,CURRENT USE 09/21/2011 Ot 250.00 DIAB TJ WO COMPL, TYPE II OR UNSPEC TY 09/21/2011 Ot 251.0 HYPOGLYCEMIC COMA 09/21/2011 Ot 276.8 HYPOPOTASSEMIA 09/21/2011 Ot 401.9 HYPERTENSION NOS 09/21/2011 Ot 427.31 ATRIAL FIBRILLATION 09/21/2011 Ot 780.09 OTHER ALTERATION OF CONSCIOUSNESS 09/21/2011 Ot 791.9 ABN URINE FINDINGS NEC 09/21/2011 Ot E932.3 ADV EFF INSULIN/ANTIDIAB 09/21/2011 Ot V58.67 LONG-TERM (CURRENT) USE OF INSULIN 05/13/2012 Ot 217 BENIGN NEOPLASM BREAST 05/13/2012 Ot 610.8 BENIGN MAMM DYSPLAS NEC 05/13/2012 Ot 611.89 OTHER SPECIFIED DISORDERS OF BREAST 09/16/2012 Ot 599.0 URIN TRACT INFECTION NOS 09/16/2012 Ot 789.09 ABDOMINAL PAIN, OTHER SPECIFIED SITE 09/16/2012 Ot V58.61 ANTICOAGULANTS,LT,CURRENT USE 09/16/2012 Ot V58.69 OTH MED,LT,CURRENT USE 12/31/2012 Ot 250.00 DIAB TJ WO COMPL, TYPE II OR UNSPEC TY 12/31/2012 Ot 272.4 HYPERLIPIDEMIA NEC/NOS 12/31/2012 Ot 275.2 DIS MAGNESIUM METABOLISM 12/31/2012 Ot 276.8 HYPOPOTASSEMIA 12/31/2012 Ot 327.23 OBSTRUCTIVE SLEEP APNEA (ADULT) (PEDIATR 12/31/2012 Ot 401.9 HYPERTENSION NOS 12/31/2012 Ot 427.31 ATRIAL FIBRILLATION 12/31/2012 Ot 496 CHR AIRWAY OBSTRUCT NEC 12/31/2012 Ot 729.1 MYALGIA AND MYOSITIS NOS 12/31/2012 Ot 786.59 CHEST PAIN NEC 12/31/2012 Ot V12.51 HX-VENOUS THROMBOSIS EMBOLISM 12/31/2012 Ot V58.61 ANTICOAGULANTS,LT,CURRENT USE 01/02/2013 Ot 599.0 URIN TRACT INFECTION NOS 01/02/2013 Ot 789.01 ABDOMINAL PAIN, RIGHT UPPER QUADRANT 12/16/2013 ARI GASTELUM MD Ot 250.00 DIAB TJ WO COMPL, TYPE II OR UNSPEC TY 12/16/2013 ARI GASTELUM MD Ot 272.0 PURE HYPERCHOLESTEROLEM 12/16/2013 ARI GASTELUM MD Ot 401.9 HYPERTENSION NOS 12/16/2013 ARI GASTELUM MD Ot 496 CHR AIRWAY OBSTRUCT NEC 12/16/2013 ARI GASTELUM MD Ot 530.11 REFLUX ESOPHAGITIS 12/16/2013 ARI GASTELUM MD Ot 535.50 UNSP GASTRITIS GASTRODUODENITIS W/O ME 12/16/2013 ARI GASTELUM MD Ot 535.60 DUODENITIS, WITHOUT MENTION OF HEMORRHAG 12/16/2013 ARI GASTELUM MD Ot 553.3 DIAPHRAGMATIC HERNIA 12/16/2013 ARI GASTELUM MD Ot V12.51 HX-VENOUS THROMBOSIS EMBOLISM 12/16/2013 ARI GASTELUM MD Ot V25.5 [ENCOUNTER] INSERT IMPLANT SUBDERM CONTR 12/16/2013 ARI GASTELUM MD Ot V58.69 OTH MED,LT,CURRENT USE 06/04/2014 CORBY SULTANA MD Ot 327.23 OBSTRUCTIVE SLEEP APNEA (ADULT) (PEDIATR 06/04/2014 CORBY SULTANA MD Ot 799.02 HYPOXEMIA 11/09/2014 MEGHA PANDA MD Ot 786.2 11/15/2014 MEGHA PANDA MD Ot 250.70 DIAB W PERIPH CIRC DIS, TYPE II OR UNSPE 11/15/2014 MEGHA PANDA MD Ot 272.0 PURE HYPERCHOLESTEROLEM 11/15/2014 MEGHA PANDA MD Ot 276.1 HYPOSMOLALITY 11/15/2014 MEGHA PANDA MD Ot 278.00 OBESITY, NOS 11/15/2014 MEGHA PANDA MD Ot 300.00 ANXIETY STATE NOS 11/15/2014 MEGHA PANDA MD Ot 311 DEPRESSIVE DISORDER NEC 11/15/2014 MEGHA PANDA MD Ot 333.1 TREMOR NEC 11/15/2014 MEGHA PANDA MD Ot 386.00 MENIERE'S DISEASE, UNSPECIFIED 11/15/2014 MEGHA PANDA MD Ot 401.9 HYPERTENSION NOS 11/15/2014 MEGHA PANDA MD Ot 410.71 AC MYOCARDIAL INFARCT,SUBENDO INFARCT,IN 11/15/2014 MEGHA PANDA MD Ot 414.01 CORONARY ATHEROSCLEROSIS OF [place] CORON 11/15/2014 MEGHA PANDA MD Ot 427.31 ATRIAL FIBRILLATION 11/15/2014 MEGHA PANDA MD Ot 443.81 ANGIOPATHY IN OTHER DIS 11/15/2014 MEGHA PANDA MD Ot 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 11/15/2014 MEGHA PANDA MD Ot 729.1 MYALGIA AND MYOSITIS NOS 11/15/2014 MEGHA PANDA MD Ot 780.57 UNSPECIFIED SLEEP APNEA 11/15/2014 MEGHA PANDA MD Ot 794.2 ABN PULMONARY FUNC STUDY 11/15/2014 MEGHA PANDA MD Ot E944.3 ADV EFF SALURETICS 11/15/2014 MEGHA PANDA MD Ot E944.4 ADV EFF DIURETICS NEC 11/15/2014 MEGHA PANDA MD Ot V10.3 HX OF BREAST MALIGNANCY 11/15/2014 MEGHA PANDA MD Ot V12.51 HX-VENOUS THROMBOSIS EMBOLISM 11/15/2014 MEGHA PANDA MD Ot V12.79 PERSONAL HISTORY OTH SPEC DIGESTIVE SYST 11/15/2014 MEGHA PANDA MD Ot V13.02 PERSONAL HISTORY, URINARY (TRACT) INFECT 11/15/2014 MEGHA PANDA MD Ot V45.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 11/15/2014 MEGHA PANDA MD Ot V58.67 LONG-TERM (CURRENT) USE OF INSULIN 11/15/2014 MEGHA PANAD MD Ot V85.41 BODY MASS INDEX 40.0-44.9, ADULT 11/16/2014 MEGHA PANDA MD, Ot 786.2 11/16/2014 DANY HOLLIS DO Ot 428.0 CONGESTIVE HEART FAILURE NOS 11/16/2014 DANY HOLLIS DO Ot 599.0 URIN TRACT INFECTION NOS 11/16/2014 DANY HOLLIS DO Ot 786.2 COUGH 11/16/2014 DANY HOLLIS DO Ot 786.50 CHEST PAIN NOS 11/16/2014 DANY HOLLIS DO Ot 786.59 CHEST PAIN NEC 11/16/2014 MEGHA PANDA MD Ot 250.70 11/16/2014 MEGHA PANDA MD Ot 272.0 11/16/2014 MEGHA PANDA MD Ot 276.1 11/16/2014 MEGHA PANDA MD Ot 278.00 11/16/2014 MEGHA PANDA MD Ot 300.00 11/16/2014 MEGHA PANDA MD Ot 311 11/16/2014 MEGHA PANDA MD Ot 333.1 11/16/2014 MEGHA PANDA MD Ot 386.00 11/16/2014 MEGHA PANDA MD Ot 401.9 11/16/2014 MEGHA PANDA MD Ot 410.71 11/16/2014 MEGHA PANDA MD Ot 414.01 11/16/2014 MEGHA PANDA MD Ot 427.31 11/16/2014 MEGHA PANDA MD Ot 443.81 11/16/2014 MEGHA PANDA MD Ot 721.90 11/16/2014 MEGHA PANDA MD Ot 729.1 11/16/2014 MEGHA PANDA MD Ot 780.57 11/16/2014 MEGHA PANDA MD Ot 794.2 11/16/2014 MEGHA PANDA MD Ot E944.3 11/16/2014 MEGHA PANDA MD Ot E944.4 11/16/2014 MEGHA PANDA MD Ot V10.3 11/16/2014 MEGHA PANDA MD Ot V12.51 11/16/2014 MEGHA PANDA MD Ot V12.79 11/16/2014 MEGHA PANDA MD Ot V13.02 11/16/2014 MEGHA PANDA MD Ot V45.77 11/16/2014 MEGHA PANDA MD Ot V58.67 11/16/2014 MEGHA PANDA MD Ot V85.41 11/16/2014 MEGHA PANDA MD Ot 250.70 11/16/2014 MEGHA PANDA MD Ot 272.0 11/16/2014 MEGHA PANDA MD Ot 276.1 11/16/2014 FARZAD MOULTON, MEGHA Ku Ot 278.00 11/16/2014 MEGHA PANDA MD Ot 300.00 11/16/2014 FARZAD MOULTON, MEGHA Ku Ot 311 11/16/2014 MEGHA PANDA MD Ot 333.1 11/16/2014 FARZAD MOULTON, MEGHA Ku Ot 386.00 11/16/2014 MEGHA PANDA MD Ot 401.9 11/16/2014 MEGHA PANDA MD Ot 410.71 11/16/2014 MEGHA PANDA MD Ot 414.01 11/16/2014 MEGHA PANDA MD Ot 427.31 11/16/2014 MEGHA PANDA MD Ot 443.81 11/16/2014 MEGHA PANDA MD Ot 721.90 11/16/2014 MEGHA PANDA MD Ot 729.1 11/16/2014 MEGHA PANDA MD Ot 780.57 11/16/2014 MEGHA PANDA MD Ot 794.2 11/16/2014 MEGHA PANDA MD Ot E944.3 11/16/2014 MEGHA PANDA MD Ot E944.4 11/16/2014 MEGHA PANDA MD Ot V10.3 11/16/2014 MEGHA PANDA MD Ot V12.51 11/16/2014 MEGHA PANDA MD Ot V12.79 11/16/2014 MEGHA PANDA MD Ot V13.02 11/16/2014 MEGHA PANDA MD Ot V45.77 11/16/2014 MEGHA PANDA MD Ot V58.67 11/16/2014 MEGHA PANDA MD Ot V85.41 11/16/2014 MEGHA PANDA MD Ot 250.70 11/16/2014 MEGHA PANDA MD Ot 272.0 11/16/2014 MEGHA PANDA MD Ot 276.1 11/16/2014 MEGHA PANDA MD Ot 278.00 11/16/2014 MEGHA PANDA MD Ot 300.00 11/16/2014 MEGHA PANDA MD Ot 311 11/16/2014 MEGHA PANDA MD Ot 333.1 11/16/2014 MEGHA PANDA MD Ot 386.00 11/16/2014 MEGHA PANDA MD Ot 401.9 11/16/2014 MEGHA PANDA MD Ot 410.71 11/16/2014 MEGHA PANDA MD Ot 414.01 11/16/2014 MEGHA PANDA MD Ot 427.31 11/16/2014 MEGHA PANDA MD Ot 443.81 11/16/2014 MEGHA PANDA MD Ot 721.90 11/16/2014 MEGHA PANDA MD Ot 729.1 11/16/2014 MEGHA PANDA MD Ot 780.57 11/16/2014 MEGHA PANDA MD Ot 794.2 11/16/2014 MEGHA PANDA MD Ot E944.3 11/16/2014 MEGHA PANDA MD Ot E944.4 11/16/2014 MEGHA PANDA MD Ot V10.3 11/16/2014 MEGHA PANDA MD Ot V12.51 11/16/2014 MEGHA PANDA MD Ot V12.79 11/16/2014 MEGHA PANDA MD Ot V13.02 11/16/2014 MEGHA PANDA MD Ot V45.77 11/16/2014 MEGHA PANDA MD Ot V58.67 11/16/2014 MEGHA PANDA MD Ot V85.41 11/24/2014 ERVIN OSBORNE MD Ot 593.2 11/29/2014 Ot 397.0 11/29/2014 Ot 401.9 11/29/2014 Ot 416.8 11/29/2014 Ot 424.1 11/29/2014 Ot 429.3 11/29/2014 Ot 496 11/29/2014 Ot 726.0 11/29/2014 Ot 905.2 11/29/2014 Ot E929.3 11/29/2014 Ot V57.1 11/29/2014 Ot V49.81 11/29/2014 Ot V82.81 11/29/2014 Ot 733.82 11/29/2014 Ot 250.00 11/29/2014 Ot 278.00 11/29/2014 Ot 301.13 11/29/2014 Ot 250.00 11/29/2014 Ot 416.2 11/29/2014 Ot 453.50 11/29/2014 Ot V10.3 11/29/2014 Ot V45.71 11/29/2014 Ot V58.61 11/29/2014 Ot V58.67 11/29/2014 Ot V58.69 11/29/2014 Ot V67.2 11/29/2014 Ot V10.3 11/29/2014 Ot V45.71 11/29/2014 Ot V76.11 11/29/2014 Ot 272.4 11/29/2014 Ot 401.9 11/29/2014 Ot 414.00 11/29/2014 Ot 250.00 11/29/2014 Ot 451.2 11/29/2014 Ot V10.3 11/29/2014 Ot V45.71 11/29/2014 Ot V76.11 11/29/2014 Ot 793.80 11/29/2014 Ot 354.9 11/29/2014 Ot 416.2 11/29/2014 Ot 453.50 11/29/2014 Ot V10.3 11/29/2014 Ot V45.71 11/29/2014 Ot V58.61 11/29/2014 Ot V58.67 11/29/2014 Ot V58.69 11/29/2014 Ot V67.2 11/29/2014 Ot 174.9 11/29/2014 Ot 397.0 11/29/2014 Ot 401.9 11/29/2014 Ot 416.8 11/29/2014 Ot 424.0 11/29/2014 Ot 429.3 11/29/2014 Ot 722.4 11/29/2014 Ot 250.00 11/29/2014 Ot 272.4 11/29/2014 Ot 401.9 11/29/2014 Ot 429.3 11/29/2014 Ot 786.09 11/29/2014 Ot 354.0 11/29/2014 Ot V72.83 11/29/2014 Ot V74.8 11/29/2014 Ot 250.00 11/29/2014 Ot 401.9 11/29/2014 Ot 562.10 11/29/2014 Ot 569.89 11/29/2014 Ot V10.3 11/29/2014 Ot V58.61 11/29/2014 Ot V58.69 11/29/2014 Ot V76.51 11/29/2014 Ot 562.10 11/29/2014 Ot 174.9 11/29/2014 Ot 174.9 11/29/2014 Ot V76.11 11/29/2014 Ot 174.9 11/29/2014 Ot 793.81 11/29/2014 Ot 793.81 11/29/2014 Ot V64.3 11/29/2014 Ot 611.72 11/29/2014 Ot V72.83 11/29/2014 Ot V74.8 11/29/2014 Ot 611.89 11/29/2014 Ot V67.09 11/29/2014 FARZAD MOULTON, MEGHA Ku Ot 786.2 11/29/2014 Ot 729.5 11/29/2014 Ot V12.51 11/29/2014 FAITH TURK N Ot 174.9 11/29/2014 FARZAD MOULTON, MEGHA Ku Ot 453.40 11/29/2014 ROSALEEFAITH RABAGO N Ot V10.3 11/29/2014 ROSALEEFAITH RABAGO N Ot V67.9 11/29/2014 INDIA MOULTON, ERVIN A Ot 593.9 11/29/2014 INDIA MOULTON, ERVIN A Ot 753.10 11/29/2014 JOSELUIS BORGES CAMPAIGN ANALYST Ot 174.9 11/29/2014 JOSELUIS BORGES CAMPAIGN ANALYST Ot V67.9 11/29/2014 INDIA MOULTON, ERVIN A Ot 593.2 11/29/2014 [facility] Ot V72.84 11/29/2014 INDIA MOULTON, ERVIN A Ot 593.2 11/29/2014 FAITH TURK N Ot 174.9 11/29/2014 ROSALEEFAITH RABAGO N Ot V67.9 11/29/2014 FAITH TURK N Ot 793.80 11/29/2014 RAVEN LEO APRN Ot 729.5 11/29/2014 ARVEN LEO SET BUILDER Ot 786.05 11/29/2014 INDIA MOULTON, ERVIN Lanier Ot 593.2 11/29/2014 RAVEN LEO SET BUILDER Ot 729.5 11/29/2014 RAVEN LEO SET BUILDER Ot 786.05 11/30/2014 RAVEN LEO SET BUILDER Ot 729.5 11/30/2014 RAVEN LEO SET BUILDER Ot 786.05 11/30/2014 Ot 397.0 11/30/2014 Ot 401.9 11/30/2014 Ot 416.8 11/30/2014 Ot 424.1 11/30/2014 Ot 429.3 11/30/2014 Ot 496 11/30/2014 Ot 726.0 11/30/2014 Ot 905.2 11/30/2014 Ot E929.3 11/30/2014 Ot V57.1 11/30/2014 Ot V49.81 11/30/2014 Ot V82.81 11/30/2014 Ot 733.82 11/30/2014 Ot 250.00 11/30/2014 Ot 278.00 11/30/2014 Ot 301.13 11/30/2014 Ot 250.00 11/30/2014 Ot 416.2 11/30/2014 Ot 453.50 11/30/2014 Ot V10.3 11/30/2014 Ot V45.71 11/30/2014 Ot V58.61 11/30/2014 Ot V58.67 11/30/2014 Ot V58.69 11/30/2014 Ot V67.2 11/30/2014 Ot V10.3 11/30/2014 Ot V45.71 11/30/2014 Ot V76.11 11/30/2014 Ot 272.4 11/30/2014 Ot 401.9 11/30/2014 Ot 414.00 11/30/2014 Ot 250.00 11/30/2014 Ot 451.2 11/30/2014 Ot V10.3 11/30/2014 Ot V45.71 11/30/2014 Ot V76.11 11/30/2014 Ot 793.80 11/30/2014 Ot 354.9 11/30/2014 Ot 416.2 11/30/2014 Ot 453.50 11/30/2014 Ot V10.3 11/30/2014 Ot V45.71 11/30/2014 Ot V58.61 11/30/2014 Ot V58.67 11/30/2014 Ot V58.69 11/30/2014 Ot V67.2 11/30/2014 Ot 174.9 11/30/2014 Ot 397.0 11/30/2014 Ot 401.9 11/30/2014 Ot 416.8 11/30/2014 Ot 424.0 11/30/2014 Ot 429.3 11/30/2014 Ot 722.4 11/30/2014 Ot 250.00 11/30/2014 Ot 272.4 11/30/2014 Ot 401.9 11/30/2014 Ot 429.3 11/30/2014 Ot 786.09 11/30/2014 Ot 354.0 11/30/2014 Ot V72.83 11/30/2014 Ot V74.8 11/30/2014 Ot 250.00 11/30/2014 Ot 401.9 11/30/2014 Ot 562.10 11/30/2014 Ot 569.89 11/30/2014 Ot V10.3 11/30/2014 Ot V58.61 11/30/2014 Ot V58.69 11/30/2014 Ot V76.51 11/30/2014 Ot 562.10 11/30/2014 Ot 174.9 11/30/2014 Ot 174.9 11/30/2014 Ot V76.11 11/30/2014 Ot 174.9 11/30/2014 Ot 793.81 11/30/2014 Ot 793.81 11/30/2014 Ot V64.3 11/30/2014 Ot 611.72 11/30/2014 Ot V72.83 11/30/2014 Ot V74.8 11/30/2014 Ot 611.89 11/30/2014 Ot V67.09 11/30/2014 FARZAD MOULTON, MEGAH Ku Ot 786.2 11/30/2014 Ot 729.5 11/30/2014 Ot V12.51 11/30/2014 FAITH TURK N Ot 174.9 11/30/2014 FARZAD MOULTON, MEGHA Ku Ot 453.40 11/30/2014 ROSALEEFAITH N Ot V10.3 11/30/2014 ROSALEEFAITH RABAGO N Ot V67.9 11/30/2014 INDIA MOULTON, ERVIN Lanier Ot 593.9 11/30/2014 INDIA MOULTON, ERVIN Lanier Ot 753.10 11/30/2014 JOSELUIS BORGES CAMPAIGN ANALYST Ot 174.9 11/30/2014 JOSELUIS BORGES CAMPAIGN ANALYST Ot V67.9 11/30/2014 INDIA MOULTON, ERVIN Lanier Ot 593.2 11/30/2014 NIRAV MOULTON, ARI Ot V72.84 11/30/2014 INDIA MOULTON, ERVIN Lanier Ot 593.2 11/30/2014 ROSALEEFAITH RABAGO N Ot 174.9 11/30/2014 ROSALEE, BOBAN N Ot V67.9 11/30/2014 ROSALEE BOBAN N Ot 793.80 11/30/2014 RAVEN LEO SET BUILDER Ot 729.5 11/30/2014 RAVEN LEO APRN Ot 786.05 11/30/2014 INDIA MOULTON, ERVIN A Ot 593.2 12/02/2014 LAKISHA MOULTON, SHEELA Short Ot 724.5 12/02/2014 LAKISHA MOULTON, SHEELA Short Ot 729.5 12/02/2014 LAKISHA MOULTON, SHEELA Short Ot V57.1 12/02/2014 INDIA MOULTON, ERVIN Lanier Ot 593.2 12/07/2014 LAKISHA MOULTON, SHEELA Shrot Ot 724.5 12/07/2014 LAKISHA MOULTON, SHEELA Short Ot 729.5 12/07/2014 LAKISHA MOULTON, SHEELA Short Ot V57.1 12/28/2014 LAKISHA MOULTON, SHEELA Short Ot 724.5 12/28/2014 LAKISHA MOULTON, SHEELA Short Ot 729.5 12/28/2014 SHEELA BANUELOS MD Ot V57.1 12/28/2014 LAKISHA MOULTON, SHEELA Short Ot 724.5 12/28/2014 SHEELA BANUELOS MD Ot 729.5 12/28/2014 SHEELA BANUELOS MD Ot V57.1 01/03/2015 SHEELA BANUELOS MD Ot 724.5 01/03/2015 LAKISHA MOULTON, SHEELA Short Ot 729.5 01/03/2015 SHEELA BANUELOS MD Ot V57.1 01/03/2015 FARZAD MOULTON, MEGHA Ku Ot 428.0 01/04/2015 MEGHA PANDA MD Ot 428.0 01/07/2015 SHEELA BANUELOS MD Ot 724.5 01/07/2015 SHEELA BANUELOS MD Ot 729.5 01/07/2015 SHEELA BANUELOS MD Ot V57.1 02/18/2015 SHEELA BANUELOS MD Ot 724.5 BACKACHE NOS 02/18/2015 SHEELA BANUELOS MD Ot 729.5 PAIN IN LIMB 02/18/2015 SHEELA BANUELOS MD Ot V57.1 PHYSICAL THERAPY NEC 04/09/2015 MEGHA PANDA MD Ot 250.00 04/09/2015 MEGHA PANDA MD Ot 311 04/09/2015 MEGHA PANDA MD Ot 327.23 04/09/2015 MEGHA PANDA MD Ot 333.1 04/09/2015 MEGHA PANDA MD Ot 386.00 04/09/2015 MEGHA PANDA MD Ot 401.9 04/09/2015 MEGHA PANDA MD Ot 414.01 04/09/2015 MEGHA PANDA MD Ot 493.00 04/09/2015 MEGHA PANDA MD Ot 596.51 04/09/2015 MEGHA PANDA MD Ot 729.1 04/09/2015 MEGHA PANDA MD Ot 745.5 04/09/2015 MEGHA PANDA MD Ot 786.59 04/09/2015 MEGHA PANDA MD Ot V12.51 04/09/2015 MEGHA PANDA MD Ot 250.00 DIAB TJ WO COMPL, TYPE II OR UNSPEC TY 04/09/2015 MEGHA PANDA MD Ot 311 DEPRESSIVE DISORDER NEC 04/09/2015 MEGHA PANDA MD Ot 327.23 OBSTRUCTIVE SLEEP APNEA (ADULT) (PEDIATR 04/09/2015 MEGHA PANDA MD Ot 333.1 TREMOR NEC 04/09/2015 MEGHA PANDA MD Ot 386.00 MENIERE'S DISEASE, UNSPECIFIED 04/09/2015 MEGHA PANDA MD Ot 401.9 HYPERTENSION NOS 04/09/2015 MEGHA PANDA MD Ot 414.01 CORONARY ATHEROSCLEROSIS OF [place] CORON 04/09/2015 MEGHA PANDA MD Ot 493.00 EXTRINSIC ASTHMA, NOS 04/09/2015 MEGHA PANDA MD Ot 596.51 HYPERTONICITY OF [place]AD[place] 04/09/2015 MEGHA PANDA MD Ot 729.1 MYALGIA AND MYOSITIS NOS 04/09/2015 MEGHA PANDA MD Ot 745.5 SECUNDUM ATRIAL SEPT DEF 04/09/2015 MEGHA PANDA MD Ot 786.59 CHEST PAIN NEC 04/09/2015 MEGHA PANDA MD Ot V12.51 HX-VENOUS THROMBOSIS EMBOLISM 05/03/2015 Ot 733.82 05/03/2015 Ot 250.00 05/03/2015 Ot 278.00 05/03/2015 Ot 301.13 05/03/2015 Ot 250.00 05/03/2015 Ot 416.2 05/03/2015 Ot 453.50 05/03/2015 Ot V10.3 05/03/2015 Ot V45.71 05/03/2015 Ot V58.61 05/03/2015 Ot V58.67 05/03/2015 Ot V58.69 05/03/2015 Ot V67.2 05/03/2015 Ot V10.3 05/03/2015 Ot V45.71 05/03/2015 Ot V76.11 05/03/2015 Ot 272.4 05/03/2015 Ot 401.9 05/03/2015 Ot 414.00 05/03/2015 Ot 250.00 05/03/2015 Ot 451.2 05/03/2015 Ot V10.3 05/03/2015 Ot V45.71 05/03/2015 Ot V76.11 05/03/2015 Ot 793.80 05/03/2015 Ot 354.9 05/03/2015 Ot 416.2 05/03/2015 Ot 453.50 05/03/2015 Ot V10.3 05/03/2015 Ot V45.71 05/03/2015 Ot V58.61 05/03/2015 Ot V58.67 05/03/2015 Ot V58.69 05/03/2015 Ot V67.2 05/03/2015 Ot 174.9 05/03/2015 Ot 397.0 05/03/2015 Ot 401.9 05/03/2015 Ot 416.8 05/03/2015 Ot 424.0 05/03/2015 Ot 429.3 05/03/2015 Ot 722.4 05/03/2015 Ot 250.00 05/03/2015 Ot 272.4 05/03/2015 Ot 401.9 05/03/2015 Ot 429.3 05/03/2015 Ot 786.09 05/03/2015 Ot 354.0 05/03/2015 Ot V72.83 05/03/2015 Ot V74.8 05/03/2015 Ot 250.00 05/03/2015 Ot 401.9 05/03/2015 Ot 562.10 05/03/2015 Ot 569.89 05/03/2015 Ot V10.3 05/03/2015 Ot V58.61 05/03/2015 Ot V58.69 05/03/2015 Ot V76.51 05/03/2015 Ot 562.10 05/03/2015 Ot 174.9 05/03/2015 Ot 174.9 05/03/2015 Ot V76.11 05/03/2015 Ot 174.9 05/03/2015 Ot 793.81 05/03/2015 Ot 793.81 05/03/2015 Ot V64.3 05/03/2015 Ot 611.72 05/03/2015 Ot V72.83 05/03/2015 Ot V74.8 05/03/2015 Ot 611.89 05/03/2015 Ot V67.09 05/03/2015 FARZAD MOULTON, MEGHA Ku Ot 786.2 05/03/2015 Ot 729.5 05/03/2015 Ot V12.51 05/03/2015 FAITH TURK N Ot 174.9 05/03/2015 FARZAD MOULTON, MEGHA Ku Ot 453.40 05/03/2015 FAITH TURK N Ot V10.3 05/03/2015 FAITH TURK N Ot V67.9 05/03/2015 INDIA MOULTON, ERVIN A Ot 593.9 05/03/2015 INDIA MOULTON, ERVIN A Ot 753.10 05/03/2015 JOSELUIS BORGES CAMPAIGN ANALYST Ot 174.9 05/03/2015 JOSELUIS BORGES CAMPAIGN ANALYST Ot V67.9 05/03/2015 INDIA MOULTON, ERVIN A Ot 593.2 05/03/2015 NIRAV MOULTON, ARI Ot V72.84 05/03/2015 INDIA MOULTON, ERVIN A Ot 593.2 05/03/2015 FAITH TURK N Ot 174.9 05/03/2015 FATIH TURK N Ot V67.9 05/03/2015 FAITH TURK N Ot 793.80 05/03/2015 RAVEN LEO APRN Ot 729.5 05/03/2015 RAVEN LEO APRN Ot 786.05 05/03/2015 INDIA MOULTON, ERVIN Lanier Ot 593.2 05/03/2015 FARZAD MOULTON, MEGHA Ku Ot 428.0 05/18/2015 Ot 733.82 05/18/2015 Ot 250.00 05/18/2015 Ot 278.00 05/18/2015 Ot 301.13 05/18/2015 Ot 250.00 05/18/2015 Ot 416.2 05/18/2015 Ot 453.50 05/18/2015 Ot V10.3 05/18/2015 Ot V45.71 05/18/2015 Ot V58.61 05/18/2015 Ot V58.67 05/18/2015 Ot V58.69 05/18/2015 Ot V67.2 05/18/2015 Ot V10.3 05/18/2015 Ot V45.71 05/18/2015 Ot V76.11 05/18/2015 Ot 272.4 05/18/2015 Ot 401.9 05/18/2015 Ot 414.00 05/18/2015 Ot 250.00 05/18/2015 Ot 451.2 05/18/2015 Ot V10.3 05/18/2015 Ot V45.71 05/18/2015 Ot V76.11 05/18/2015 Ot 793.80 05/18/2015 Ot 354.9 05/18/2015 Ot 416.2 05/18/2015 Ot 453.50 05/18/2015 Ot V10.3 05/18/2015 Ot V45.71 05/18/2015 Ot V58.61 05/18/2015 Ot V58.67 05/18/2015 Ot V58.69 05/18/2015 Ot V67.2 05/18/2015 Ot 174.9 05/18/2015 Ot 397.0 05/18/2015 Ot 401.9 05/18/2015 Ot 416.8 05/18/2015 Ot 424.0 05/18/2015 Ot 429.3 05/18/2015 Ot 722.4 05/18/2015 Ot 250.00 05/18/2015 Ot 272.4 05/18/2015 Ot 401.9 05/18/2015 Ot 429.3 05/18/2015 Ot 786.09 05/18/2015 Ot 354.0 05/18/2015 Ot V72.83 05/18/2015 Ot V74.8 05/18/2015 Ot 250.00 05/18/2015 Ot 401.9 05/18/2015 Ot 562.10 05/18/2015 Ot 569.89 05/18/2015 Ot V10.3 05/18/2015 Ot V58.61 05/18/2015 Ot V58.69 05/18/2015 Ot V76.51 05/18/2015 Ot 562.10 05/18/2015 Ot 174.9 05/18/2015 Ot 174.9 05/18/2015 Ot V76.11 05/18/2015 Ot 174.9 05/18/2015 Ot 793.81 05/18/2015 Ot 793.81 05/18/2015 Ot V64.3 05/18/2015 Ot 611.72 05/18/2015 Ot V72.83 05/18/2015 Ot V74.8 05/18/2015 Ot 611.89 05/18/2015 Ot V67.09 05/18/2015 FARZAD MOULTON, MEGHA Ku Ot 786.2 05/18/2015 Ot 729.5 05/18/2015 Ot V12.51 05/18/2015 ROSALEE, BOBAN N Ot 174.9 05/18/2015 FARZAD MOULTON, MEGHA Ku Ot 453.40 05/18/2015 ROSALEE, EDNAAN N Ot V10.3 05/18/2015 ROSALEE, BOBAN N Ot V67.9 05/18/2015 INDIA MOULTON, ERVIN A Ot 593.9 05/18/2015 INDIA MOULTON, ERVIN A Ot 753.10 05/18/2015 JOSELUIS BORGES CAMPAIGN ANALYST Ot 174.9 05/18/2015 JOSELUIS BORGES CAMPAIGN ANALYST Ot V67.9 05/18/2015 INDIA MOULTON, ERVIN A Ot 593.2 05/18/2015 NIRAV [facility]LTON[facility] Ot V72.84 05/18/2015 INDIA MOULTON, ERVIN A Ot 593.2 05/18/2015 ROSALEE, BOBAN N Ot 174.9 05/18/2015 ROSALEE, BOBAN N Ot V67.9 05/18/2015 ROSALEE, BOBAN N Ot 793.80 05/18/2015 RAVEN LEO SET BUILDER Ot 729.5 05/18/2015 RAVEN LEO SET BUILDER Ot 786.05 05/18/2015 INDIA MOULTON, ERVIN Lanier Ot 593.2 05/18/2015 FARZAD MOULTON, MEGHA Ku Ot 428.0 05/18/2015 RAVEN LEO SET BUILDER Ot 719.41 05/18/2015 RAVEN LEO SET BUILDER Ot 786.59 05/18/2015 RAVEN LEO SET BUILDER Ot V57.1 05/18/2015 INDIA MOULTON, ERVIN A Ot 753.10 05/18/2015 ROSALEE, BOBAN N Ot V10.3 05/18/2015 ROSALEE, BOBAN N Ot V12.51 05/18/2015 ROSALEE, BOBAN N Ot V12.55 05/18/2015 ROSALEE, BOBAN N Ot V45.71 05/18/2015 ROSALEE, BOBAN N Ot V58.61 05/18/2015 FAITH TURK N Ot V58.69 05/18/2015 FAITH TURK Ot V67.2 05/23/2015 RAVEN LEO SET BUILDER Ot 719.41 05/23/2015 RAVEN LEO SET BUILDER Ot 786.59 05/23/2015 RAVEN LEO SET BUILDER Ot V57.1 05/23/2015 ERVIN OSBORNE MD Ot 753.10 05/25/2015 Ot 733.82 05/25/2015 Ot 250.00 05/25/2015 Ot 278.00 05/25/2015 Ot 301.13 05/25/2015 Ot 250.00 05/25/2015 Ot 416.2 05/25/2015 Ot 453.50 05/25/2015 Ot V10.3 05/25/2015 Ot V45.71 05/25/2015 Ot V58.61 05/25/2015 Ot V58.67 05/25/2015 Ot V58.69 05/25/2015 Ot V67.2 05/25/2015 Ot V10.3 05/25/2015 Ot V45.71 05/25/2015 Ot V76.11 05/25/2015 Ot 272.4 05/25/2015 Ot 401.9 05/25/2015 Ot 414.00 05/25/2015 Ot 250.00 05/25/2015 Ot 451.2 05/25/2015 Ot V10.3 05/25/2015 Ot V45.71 05/25/2015 Ot V76.11 05/25/2015 Ot 793.80 05/25/2015 Ot 354.9 05/25/2015 Ot 416.2 05/25/2015 Ot 453.50 05/25/2015 Ot V10.3 05/25/2015 Ot V45.71 05/25/2015 Ot V58.61 05/25/2015 Ot V58.67 05/25/2015 Ot V58.69 05/25/2015 Ot V67.2 05/25/2015 Ot 174.9 05/25/2015 Ot 397.0 05/25/2015 Ot 401.9 05/25/2015 Ot 416.8 05/25/2015 Ot 424.0 05/25/2015 Ot 429.3 05/25/2015 Ot 722.4 05/25/2015 Ot 250.00 05/25/2015 Ot 272.4 05/25/2015 Ot 401.9 05/25/2015 Ot 429.3 05/25/2015 Ot 786.09 05/25/2015 Ot 354.0 05/25/2015 Ot V72.83 05/25/2015 Ot V74.8 05/25/2015 Ot 250.00 05/25/2015 Ot 401.9 05/25/2015 Ot 562.10 05/25/2015 Ot 569.89 05/25/2015 Ot V10.3 05/25/2015 Ot V58.61 05/25/2015 Ot V58.69 05/25/2015 Ot V76.51 05/25/2015 Ot 562.10 05/25/2015 Ot 174.9 05/25/2015 Ot 174.9 05/25/2015 Ot V76.11 05/25/2015 Ot 174.9 05/25/2015 Ot 793.81 05/25/2015 Ot 793.81 05/25/2015 Ot V64.3 05/25/2015 Ot 611.72 05/25/2015 Ot V72.83 05/25/2015 Ot V74.8 05/25/2015 Ot 611.89 05/25/2015 Ot V67.09 05/25/2015 FARZAD MOULTON, MEGHA Ku Ot 786.2 05/25/2015 Ot 729.5 05/25/2015 Ot V12.51 05/25/2015 FAITH TURK Ot 174.9 05/25/2015 FARZAD MOULTON, MEGHA Ku Ot 453.40 05/25/2015 FAITH TURK Ot V10.3 05/25/2015 FAITH TURK Ot V67.9 05/25/2015 INDIA MOULTON, ERVIN Lanier Ot 593.9 05/25/2015 INDIA MOULTON, ERVIN Lanier Ot 753.10 05/25/2015 JOSELUIS BORGES CAMPAIGN ANALYST Ot 174.9 05/25/2015 JOSELUIS BORGES CAMPAIGN ANALYST Ot V67.9 05/25/2015 INDIA MOULTON, ERVIN Lanier Ot 593.2 05/25/2015 NIRAV MOULTON, ARI Ot V72.84 05/25/2015 INDIA MOULTON, ERVIN Lanier Ot 593.2 05/25/2015 ROSALEE, BOBAN N Ot 174.9 05/25/2015 ROSALEE, BOBAN N Ot V67.9 05/25/2015 ROSALEE, BOBAN N Ot 793.80 05/25/2015 AHMET, RAVEN R SET BUILDER Ot 729.5 05/25/2015 AHMET,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 05/11/2016 JOSELUIS BORGESP Ot Z08 ENCNTR FOR FOLLOW-UP EXAM AFTER TRTMT FO 05/11/2016 JOSELUIS BORGESP Ot Z79.01 MCC (CURRENT) USE OF ANTICOAGULANT 05/11/2016 JOSELUIS BORGESP Ot Z85.3 PERSONAL HISTORY OF MALIGNANT NEOPLASM O 05/11/2016 JOSELUIS BORGESP Ot Z86.718 PERSONAL HISTORY OF OTHER VENOUS THROMBO 05/11/2016 JOSELUIS BORGES CAMPAIGN ANALYST Ot Z90.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 05/14/2016 Ot 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 05/14/2016 Ot N28.1 CYST OF KIDNEY, ACQUIRED 05/17/2016 Ot 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 05/17/2016 Ot N28.1 CYST OF KIDNEY, ACQUIRED 05/22/2016 DANY ESPINAL DO Ot F02.81 DEMENTIA IN OTH DISEASES CLASSD [facility] W 05/24/2016 DANY ESPINAL DO, Ot F02.81 [facility] 05/24/2016 DANY ESPINAL DO, Ot F02.81 DEMENTIA IN OT DISEASES CLASSD [facility] W 05/24/2016 DANY ESPINAL DO Ot 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 , 05/25/2016 NELLY SMITH DO Ot I51.7 CARDIOMEGALY 05/25/2016 NELLY SMITH DO Ot N39.0 URINARY TRACT INFECTION, SITE NOT SPECIF 05/25/2016 NELLY SMITH DO Ot R09.89 [facility] SYMPTOMS AND SIGNS INVOLVING THE CIR 05/26/2016 DANY ESPINAL DO Ot F02.81 DEMENTIA IN OTH DISEASES CLASSD [facility] W 05/26/2016 DANY ESPINAL DO, Ot 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 , 05/28/2016 Ot 354.9 MONONEURITIS ARM NOS 05/28/2016 Ot 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 05/28/2016 Ot 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 05/28/2016 Ot V10.3 HX OF BREAST MALIGNANCY 05/28/2016 Ot V45.71 ACQUIRED ABSENCE OF BREAST AND NIPPLE 05/28/2016 Ot V58.61 ANTICOAGULANTS,LT,CURRENT USE 05/28/2016 Ot V58.67 LONG-TERM (CURRENT) USE OF INSULIN 05/28/2016 Ot V58.69 OTH MED,LT,CURRENT USE 05/28/2016 Ot V67.2 CHEMOTHERAPY FOLLOW-UP 05/28/2016 Ot 174.9 MALIGN NEOPL BREAST NOS 05/28/2016 Ot 397.0 TRICUSPID VALVE DISEASE 05/28/2016 Ot 401.9 HYPERTENSION NOS 05/28/2016 Ot 416.8 CHR PULMON HEART DIS NEC 05/28/2016 Ot 424.0 MITRAL VALVE DISORDER 05/28/2016 Ot 429.3 CARDIOMEGALY 05/28/2016 Ot 722.4 CERVICAL DISC DEGEN 05/28/2016 Ot 250.00 DIAB TJ WO COMPL, TYPE II OR UNSPEC TY 05/28/2016 Ot 272.4 HYPERLIPIDEMIA NEC/NOS 05/28/2016 Ot 401.9 HYPERTENSION NOS 05/28/2016 Ot 429.3 CARDIOMEGALY 05/28/2016 Ot 786.09 RESPIRATORY ABNORM NEC 05/28/2016 Ot 354.0 CARPAL TUNNEL SYNDROME 05/28/2016 Ot V72.83 EXAM PRE-OPERATIVE NEC 05/28/2016 Ot V74.8 SCREEN-BACTERIAL DIS NEC 05/28/2016 Ot 250.00 DIAB TJ WO COMPL, TYPE II OR UNSPEC TY 05/28/2016 Ot 401.9 HYPERTENSION NOS 05/28/2016 Ot 562.10 DIVERTICULOSIS COLON (W/O MENT OF HEMORR 05/28/2016 Ot 569.89 INTESTINAL DISORDERS NEC 05/28/2016 Ot V10.3 HX OF BREAST MALIGNANCY 05/28/2016 Ot V58.61 ANTICOAGULANTS,LT,CURRENT USE 05/28/2016 Ot V58.69 OTH MED,LT,CURRENT USE 05/28/2016 Ot V76.51 SCREEN MAL NEOP-COLON 05/28/2016 Ot 562.10 DIVERTICULOSIS COLON (W/O MENT OF HEMORR 05/28/2016 Ot 174.9 MALIGN NEOPL BREAST NOS 05/28/2016 Ot 174.9 MALIGN NEOPL BREAST NOS 05/28/2016 Ot V76.11 SCRN MAMMO-HIGH RISK PT, MALIGNANT NEOPL 05/28/2016 Ot 174.9 MALIGN NEOPL BREAST NOS 05/28/2016 Ot 793.81 MAMMOGRAPHIC MICROCLACIFICATION 05/28/2016 Ot 793.81 MAMMOGRAPHIC MICROCLACIFICATION 05/28/2016 Ot V64.3 NO PROC FOR REASONS NEC 05/28/2016 Ot 611.72 LUMP OR MASS IN BREAST 05/28/2016 Ot V72.83 EXAM PRE-OPERATIVE NEC 05/28/2016 Ot V74.8 SCREEN-BACTERIAL DIS NEC 05/28/2016 Ot 611.89 OTHER SPECIFIED DISORDERS OF BREAST 05/28/2016 Ot V67.09 SURGERY FOLLOW-UP, OTHER SURGERY 05/28/2016 FARZAD MOULTON, MEGHA Ku Ot 786.2 COUGH 05/28/2016 Ot 729.5 PAIN IN LIMB 05/28/2016 Ot V12.51 HX-VENOUS THROMBOSIS EMBOLISM 05/28/2016 FAITH TURK Ot 174.9 MALIGN NEOPL BREAST NOS 05/28/2016 FARZAD MOULTON, MEGHA Ku Ot 453.40 ACUTE VENOUS EMBOLISM THROMBOSIS UNSP 05/28/2016 FAITH TURK Ot V10.3 HX OF BREAST MALIGNANCY 05/28/2016 FAITH TURK Ot V67.9 FOLLOW-UP EXAM NOS 05/28/2016 INDIA MOULTON, ERVIN Lanier Ot 593.9 RENAL URETERAL DIS NOS 05/28/2016 ERVIN OSBORNE MD Ot 753.10 CYSTIC KIDNEY DISEASE, UNSPECIFIED 05/28/2016 JOSELUIS BORGES CAMPAIGN ANALYST Ot 174.9 MALIGN NEOPL BREAST NOS 05/28/2016 JOSELUIS BORGES CAMPAIGN ANALYST Ot V67.9 FOLLOW-UP EXAM NOS 05/28/2016 ERVIN OSBORNE MD Ot 593.2 CYST OF KIDNEY, ACQUIRED 05/28/2016 NIRAV MOULTON, ARI Ot V72.84 EXAM PRE-OPERATIVE NOS 05/28/2016 INDIA MOULTON, ERVIN Lanier Ot 593.2 CYST OF KIDNEY, ACQUIRED 05/28/2016 FAITH TURK Ot 174.9 MALIGN NEOPL BREAST NOS 05/28/2016 FAITH TURK Ot V67.9 FOLLOW-UP EXAM NOS 05/28/2016 FAITH TURK Ot 793.80 UNSPEC ABNORMAL MAMMOGRAM 05/28/2016 RAVEN LEO SET BUILDER Ot 729.5 PAIN IN LIMB 05/28/2016 RAVEN LEO SET BUILDER Ot 786.05 SHORTNESS OF BREATH 05/28/2016 ERVIN OSBORNE MD Ot 593.2 CYST OF KIDNEY, ACQUIRED 05/28/2016 FARZAD MOULTON, MEGHA Ku Ot 428.0 CONGESTIVE HEART FAILURE NOS 05/28/2016 ERVIN OSBORNE MD Ot 753.10 CYSTIC KIDNEY DISEASE, UNSPECIFIED 05/28/2016 FAITH TURK Ot V10.3 HX OF BREAST MALIGNANCY 05/28/2016 FAITH TURK Ot V12.51 HX-VENOUS THROMBOSIS EMBOLISM 05/28/2016 FAITH TURK Ot V12.55 PERSONAL HISTORY OF PULMONARY EMBOLISM 05/28/2016 FAITH TURK Ot V45.71 ACQUIRED ABSENCE OF BREAST AND NIPPLE 05/28/2016 FAITH TURK Ot V58.61 ANTICOAGULANTS,LT,CURRENT USE 05/28/2016 FAITH TURK Ot V58.69 OTH MED,LT,CURRENT USE 05/28/2016 FAITH TURK Ot V67.2 CHEMOTHERAPY FOLLOW-UP 05/28/2016 FAITH TURK Evy Ot 174.9 MALIGN NEOPL BREAST NOS 05/28/2016 MEGHA PANDA MD Ot 276.1 HYPOSMOLALITY 05/28/2016 MEGHA PANDA MD Ot 250.00 DIAB TJ WO COMPL, TYPE II OR UNSPEC TY 05/28/2016 MEGHA PANDA MD Ot 276.8 HYPOPOTASSEMIA 05/28/2016 MEGHA PANDA MD Ot 250.00 DIAB TJ WO COMPL, TYPE II OR UNSPEC TY 05/28/2016 MEGHA PANDA MD Ot V58.69 OTH MED,LT,CURRENT USE 05/28/2016 MEGHA PANDA MD Ot L03.90 CELLULITIS, UNSPECIFIED 05/28/2016 MEGHA PANDA MD Ot Z51.81 ENCOUNTER FOR THERAPEUTIC DRUG LEVEL MON 05/28/2016 MEGHA PANDA MD Ot Z79.2 MCC (CURRENT) USE OF ANTIBIOTICS 05/28/2016 AGATHA ESPINAL Ot N39.0 URINARY TRACT INFECTION, SITE NOT SPECIF 05/28/2016 DANY ESPINAL DO Ot E03.9 HYPOTHYROIDISM, UNSPECIFIED 05/28/2016 DANY ESPINAL DO Ot I48.2 CHRONIC ATRIAL FIBRILLATION 05/28/2016 DANY ESPINAL DO Ot N39.0 URINARY TRACT INFECTION, SITE NOT SPECIF 05/28/2016 DANY ESPINAL DO Ot N39.0 URINARY TRACT INFECTION, SITE NOT SPECIF 05/28/2016 Ot 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 05/28/2016 Ot N28.1 CYST OF KIDNEY, ACQUIRED 05/28/2016 JOSELUIS BORGES Ot Z08 ENCNTR FOR FOLLOW-UP EXAM AFTER TRTMT FO 05/28/2016 BORGES, HILAH S CAMPAIGN ANALYST Ot Z79.01 MCC (CURRENT) USE OF ANTICOAGULANT 05/28/2016 JOSELUIS BORGES CAMPAIGN ANALYST Ot Z85.3 PERSONAL HISTORY OF MALIGNANT NEOPLASM O 05/28/2016 JOSELUIS BORGES CAMPAIGN ANALYST Ot Z86.718 PERSONAL HISTORY OF OTHER VENOUS THROMBO 05/28/2016 REDD BORGESCAITIE Marito CAMPAIGN ANALYST Ot Z90.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 05/28/2016 DANY ESPINAL DO Ot 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 05/28/2016 DANY ESPINAL DO Ot 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 , 05/28/2016 JAYE MENG SET BUILDER Ot I48.2 CHRONIC ATRIAL FIBRILLATION 05/28/2016 JAYE MENG SET BUILDER Ot I50.9 HEART FAILURE, UNSPECIFIED 05/28/2016 JAYE MENG APRN Ot K59.00 CONSTIPATION, UNSPECIFIED 05/28/2016 JAYE MENG SET BUILDER Ot R07.89 OTHER CHEST PAIN 05/30/2016 JOSELUIS BORGESP Ot Z08 ENCNTR FOR FOLLOW-UP EXAM AFTER TRTMT FO 05/30/2016 JOSELUIS BORGESP Ot Z79.01 MCC (CURRENT) USE OF ANTICOAGULANT 05/30/2016 JOSELUIS BORGES CAMPAIGN ANALYST Ot Z85.3 PERSONAL HISTORY OF MALIGNANT NEOPLASM O 05/30/2016 JOSELUIS BORGES CAMPAIGN ANALYST Ot Z86.718 PERSONAL HISTORY OF OTHER VENOUS THROMBO 05/30/2016 JOSELUIS BOGRES CAMPAIGN ANALYST Ot Z90.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 05/31/2016 JAYE MENG SET BUILDER Ot I48.2 CHRONIC ATRIAL FIBRILLATION 05/31/2016 JAYE MENG SET BUILDER Ot I50.9 HEART FAILURE, UNSPECIFIED 05/31/2016 JAYE MENG SET BUILDER Ot K59.00 CONSTIPATION, UNSPECIFIED 05/31/2016 JAYE MENG SET BUILDER Ot R07.89 OTHER CHEST PAIN 06/07/2016 JOSELUIS BORGES CAMPAIGN ANALYST Ot Z08 ENCNTR FOR FOLLOW-UP EXAM AFTER TRTMT FO 06/07/2016 JOSELUIS BORGES CAMPAIGN ANALYST Ot Z79.01 MCC (CURRENT) USE OF ANTICOAGULANT 06/07/2016 JOSELUIS BORGES CAMPAIGN ANALYST Ot Z85.3 PERSONAL HISTORY OF MALIGNANT NEOPLASM O 06/07/2016 BORGESJOSELUIS Devi CAMPAIGN ANALYST Ot Z86.718 PERSONAL HISTORY OF OTHER VENOUS THROMBO 06/07/2016 BORGESJOSELUIS Devi [facility] Ot Z90.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 06/14/2016 DANY ESPINAL DO Ot 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 06/14/2016 DANY ESPINAL DO, Ot 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 , 06/25/2016 Ot S05.02XA INJ CONJUNCTIVA AND CORNEAL ABRASION W/O 06/25/2016 Ot W22.8XXA STRIKING AGAINST OR STRUCK BY OTHER OBJE 06/28/2016 DANY ESPINAL DO, Ot 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 06/28/2016 DANY ESPINAL DO, Ot 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 , 07/11/2016 Ot 354.9 MONONEURITIS ARM NOS 07/11/2016 Ot 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 07/11/2016 Ot 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 07/11/2016 Ot V10.3 HX OF BREAST MALIGNANCY 07/11/2016 Ot V45.71 ACQUIRED ABSENCE OF BREAST AND NIPPLE 07/11/2016 Ot V58.61 ANTICOAGULANTS,LT,CURRENT USE 07/11/2016 Ot V58.67 LONG-TERM (CURRENT) USE OF INSULIN 07/11/2016 Ot V58.69 OTH MED,LT,CURRENT USE 07/11/2016 Ot V67.2 CHEMOTHERAPY FOLLOW-UP 07/11/2016 Ot 174.9 MALIGN NEOPL BREAST NOS 07/11/2016 Ot 397.0 TRICUSPID VALVE DISEASE 07/11/2016 Ot 401.9 HYPERTENSION NOS 07/11/2016 Ot 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 CHR PULMON HEART DIS NEC 07/11/2016 Ot 424.0 MITRAL VALVE DISORDER 07/11/2016 Ot 429.3 CARDIOMEGALY 07/11/2016 Ot 722.4 CERVICAL DISC DEGEN 07/11/2016 Ot 250.00 DIAB TJ WO COMPL, TYPE II OR UNSPEC TY 07/11/2016 Ot 272.4 HYPERLIPIDEMIA NEC/NOS 07/11/2016 Ot 401.9 HYPERTENSION NOS 07/11/2016 Ot 429.3 CARDIOMEGALY 07/11/2016 Ot 786.09 RESPIRATORY ABNORM NEC 07/11/2016 Ot 354.0 CARPAL TUNNEL SYNDROME 07/11/2016 Ot V72.83 EXAM PRE-OPERATIVE NEC 07/11/2016 Ot V74.8 SCREEN-BACTERIAL DIS NEC 07/11/2016 Ot 250.00 DIAB TJ WO COMPL, TYPE II OR UNSPEC TY 07/11/2016 Ot 401.9 HYPERTENSION NOS 07/11/2016 Ot 562.10 DIVERTICULOSIS COLON (W/O MENT OF HEMORR 07/11/2016 Ot 569.89 INTESTINAL DISORDERS NEC 07/11/2016 Ot V10.3 HX OF BREAST MALIGNANCY 07/11/2016 Ot V58.61 ANTICOAGULANTS,LT,CURRENT USE 07/11/2016 Ot V58.69 OTH MED,LT,CURRENT USE 07/11/2016 Ot V76.51 SCREEN MAL NEOP-COLON 07/11/2016 Ot 562.10 DIVERTICULOSIS COLON (W/O MENT OF HEMORR 07/11/2016 Ot 174.9 MALIGN NEOPL BREAST NOS 07/11/2016 Ot 174.9 MALIGN NEOPL BREAST NOS 07/11/2016 Ot V76.11 SCRN MAMMO-HIGH RISK PT, MALIGNANT NEOPL 07/11/2016 Ot 174.9 MALIGN NEOPL BREAST NOS 07/11/2016 Ot 793.81 MAMMOGRAPHIC MICROCLACIFICATION 07/11/2016 Ot 793.81 MAMMOGRAPHIC MICROCLACIFICATION 07/11/2016 Ot V64.3 NO PROC FOR REASONS NEC 07/11/2016 Ot 611.72 LUMP OR MASS IN BREAST 07/11/2016 Ot V72.83 EXAM PRE-OPERATIVE NEC 07/11/2016 Ot V74.8 SCREEN-BACTERIAL DIS NEC 07/11/2016 Ot 611.89 OTHER SPECIFIED DISORDERS OF BREAST 07/11/2016 Ot V67.09 SURGERY FOLLOW-UP, OTHER SURGERY 07/11/2016 FARZAD MOULTON, MEGHA Ku Ot 786.2 COUGH 07/11/2016 Ot 729.5 PAIN IN LIMB 07/11/2016 Ot V12.51 HX-VENOUS THROMBOSIS EMBOLISM 07/11/2016 FAITH TURK Ot 174.9 MALIGN NEOPL BREAST NOS 07/11/2016 MEGHA PANDA MD Ot 453.40 ACUTE VENOUS EMBOLISM THROMBOSIS UNSP 07/11/2016 FAITH TURK Ot V10.3 HX OF BREAST MALIGNANCY 07/11/2016 FAITH TURK Ot V67.9 FOLLOW-UP EXAM NOS 07/11/2016 INDIA MOULTON, ERVIN Lanier Ot 593.9 RENAL URETERAL DIS NOS 07/11/2016 INDIA MOULTON, ERVIN Lanier Ot 753.10 CYSTIC KIDNEY DISEASE, UNSPECIFIED 07/11/2016 JOSELUIS BORGES CAMPAIGN ANALYST Ot 174.9 MALIGN NEOPL BREAST NOS 07/11/2016 JOSEULIS BORGES CAMPAIGN ANALYST Ot V67.9 FOLLOW-UP EXAM NOS 07/11/2016 INDIA MOULTON, ERVIN Lanier Ot 593.2 CYST OF KIDNEY, ACQUIRED 07/11/2016 NIRAV MOULTON, ARI Ot V72.84 EXAM PRE-OPERATIVE NOS 07/11/2016 INDIA MOULTON, ERVIN Lanier Ot 593.2 CYST OF KIDNEY, ACQUIRED 07/11/2016 FAITH TURK Ot 174.9 MALIGN NEOPL BREAST NOS 07/11/2016 FAITH TURK Ot V67.9 FOLLOW-UP EXAM NOS 07/11/2016 FAITH TURK Ot 793.80 UNSPEC ABNORMAL MAMMOGRAM 07/11/2016 RAVEN LEO SET BUILDER Ot 729.5 PAIN IN LIMB 07/11/2016 RAVEN LEO SET BUILDER Ot 786.05 SHORTNESS OF BREATH 07/11/2016 INDIA MOULTON, ERVIN Lanier Ot 593.2 CYST OF KIDNEY, ACQUIRED 07/11/2016 FARZAD MOULTON, MEGHA Ku Ot 428.0 CONGESTIVE HEART FAILURE NOS 07/11/2016 INDIA MOULTON, ERVIN Lanier Ot 753.10 CYSTIC KIDNEY DISEASE, UNSPECIFIED 07/11/2016 FAITH TURK Ot V10.3 HX OF BREAST MALIGNANCY 07/11/2016 FAITH TURK Ot V12.51 HX-VENOUS THROMBOSIS EMBOLISM 07/11/2016 FAITH TURK Ot V12.55 PERSONAL HISTORY OF PULMONARY EMBOLISM 07/11/2016 FAITH TURK Ot V45.71 ACQUIRED ABSENCE OF BREAST AND NIPPLE 07/11/2016 FAITH TURK Ot V58.61 ANTICOAGULANTS,LT,CURRENT USE 07/11/2016 FAITH TURK Ot V58.69 OTH MED,LT,CURRENT USE 07/11/2016 FAITH TURK Ot V67.2 CHEMOTHERAPY FOLLOW-UP 07/11/2016 FAITH TURK Ot 174.9 MALIGN NEOPL BREAST NOS 07/11/2016 MEGHA PANDA MD Ot 276.1 HYPOSMOLALITY 07/11/2016 MEGHA PANDA MD Ot 250.00 DIAB TJ WO COMPL, TYPE II OR UNSPEC TY 07/11/2016 MEGHA PANDA MD Ot 276.8 HYPOPOTASSEMIA 07/11/2016 MEGHA PANDA MD Ot 250.00 DIAB TJ WO COMPL, TYPE II OR UNSPEC TY 07/11/2016 MEGHA PANDA MD Ot V58.69 OT MED,LT,CURRENT USE 07/11/2016 MEGHA PANDA MD Ot L03.90 CELLULITIS, UNSPECIFIED 07/11/2016 MEGHA PANDA MD Ot Z51.81 ENCOUNTER FOR THERAPEUTIC DRUG LEVEL MON 07/11/2016 MEGHA PANDA MD Ot Z79.2 DIRECTOR GLOBAL DEVELOPMENT (CURRENT) USE OF ANTIBIOTICS 07/11/2016 AGATHA ESPINAL Ot N39.0 URINARY TRACT INFECTION, SITE NOT SPECIF 07/11/2016 DANY ESPINAL DO Ot E03.9 HYPOTHYROIDISM, UNSPECIFIED 07/11/2016 DANY ESPINAL DO Ot I48.2 CHRONIC ATRIAL FIBRILLATION 07/11/2016 DANY ESPINAL DO Ot N39.0 URINARY TRACT INFECTION, SITE NOT SPECIF 07/11/2016 DANY ESPINAL DO, Ot N39.0 URINARY TRACT INFECTION, SITE NOT SPECIF 07/11/2016 Ot 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 07/11/2016 Ot N28.1 CYST OF KIDNEY, ACQUIRED 07/11/2016 JOSELUIS BORGES Ot Z08 ENCNTR FOR FOLLOW-UP EXAM AFTER TRTMT FO 07/11/2016 JOSELUIS BORGES Ot Z79.01 DIRECTOR GLOBAL DEVELOPMENT (CURRENT) USE OF ANTICOAGULANT 07/11/2016 JOSELUIS BORGES Ot Z85.3 PERSONAL HISTORY OF MALIGNANT NEOPLASM O 07/11/2016 JOSELUIS BORGES Ot Z86.718 PERSONAL HISTORY OF OTHER VENOUS THROMBO 07/11/2016 JOSELUIS BORGES Ot Z90.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 07/11/2016 DANY ESPINAL DO Ot F02.81 DEMENTIA IN OT DISEASES CLASSD ELSWHR W 07/11/2016 DANY ESPINAL DO Ot 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 , 07/11/2016 MEGHA PANDA MD Ot L03.90 CELLULITIS, UNSPECIFIED 07/11/2016 MEGHA PANDA MD Ot Z51.81 ENCOUNTER FOR THERAPEUTIC DRUG LEVEL MON 07/11/2016 MEGHA PANDA MD Ot Z79.2 MCC (CURRENT) USE OF ANTIBIOTICS 07/11/2016 MEGHA PANDA MD Ot L03.90 CELLULITIS, UNSPECIFIED 07/11/2016 MEGHA PANDA MD Ot Z51.81 ENCOUNTER FOR THERAPEUTIC DRUG LEVEL MON 07/11/2016 MEGHA PANDA MD Ot Z79.2 MCC (CURRENT) USE OF ANTIBIOTICS 08/07/2016 JOSELUIS BORGES CAMPAIGN ANALYST Ot Z12.31 ENCNTR SCREEN MAMMOGRAM FOR MALIGNANT NE 08/08/2016 JOSELUIS BORGES CAMPAIGN ANALYST Ot Z12.31 ENCNTR SCREEN MAMMOGRAM FOR MALIGNANT NE 08/08/2016 JOSELUIS BORGES CAMPAIGN ANALYST Ot Z12.31 ENCNTR SCREEN MAMMOGRAM FOR MALIGNANT NE 08/14/2016 JOSELUIS BORGES CAMPAIGN ANALYST Ot R92.8 OTH ABN AND INCONCLUSIVE FINDINGS ON DX 08/15/2016 JOSELUIS BORGES CAMPAIGN ANALYST Ot R92.8 OTH ABN AND INCONCLUSIVE FINDINGS ON DX 08/15/2016 JOSELUIS BORGES CAMPAIGN ANALYST Ot R92.8 OTH ABN AND INCONCLUSIVE FINDINGS ON DX 08/29/2016 JOSELUIS BORGES CAMPAIGN ANALYST Ot Z12.31 ENCNTR SCREEN MAMMOGRAM FOR MALIGNANT NE 09/05/2016 JOSELUIS BORGES CAMPAIGN ANALYST Ot R92.8 OTH ABN AND INCONCLUSIVE FINDINGS ON DX 09/05/2016 JOSELUIS BORGES CAMPAIGN ANALYST Ot Z12.31 ENCNTR SCREEN MAMMOGRAM FOR MALIGNANT NE 09/12/2016 JOSELUIS BORGES CAMPAIGN ANALYST Ot R92.8 OTH ABN AND INCONCLUSIVE FINDINGS ON DX 09/25/2016 NELLY SMITH DO Ot I51.7 CARDIOMEGALY 09/25/2016 NELLY SMITH DO Ot N39.0 URINARY TRACT INFECTION, SITE NOT SPECIF 09/25/2016 NELLY SMITH DO Ot R09.89 OTH SYMPTOMS AND SIGNS INVOLVING THE CIR 01/23/2017 Ot S05.02XA INJ CONJUNCTIVA AND CORNEAL ABRASION W/O 01/23/2017 Ot W22.8XXA STRIKING AGAINST OR STRUCK BY OTHER OBJE 02/06/2017 Ot 354.0 CARPAL TUNNEL SYNDROME 02/06/2017 Ot V72.83 EXAM PRE-OPERATIVE NEC 02/06/2017 Ot V74.8 SCREEN-BACTERIAL DIS NEC 02/06/2017 Ot 250.00 DIAB TJ WO COMPL, TYPE II OR UNSPEC TY 02/06/2017 Ot 401.9 HYPERTENSION NOS 02/06/2017 Ot 562.10 DIVERTICULOSIS COLON (W/O MENT OF HEMORR 02/06/2017 Ot 569.89 INTESTINAL DISORDERS NEC 02/06/2017 Ot V10.3 HX OF BREAST MALIGNANCY 02/06/2017 Ot V58.61 ANTICOAGULANTS,LT,CURRENT USE 02/06/2017 Ot V58.69 OTH MED,LT,CURRENT USE 02/06/2017 Ot V76.51 SCREEN MAL NEOP-COLON 02/06/2017 Ot 562.10 DIVERTICULOSIS COLON (W/O MENT OF HEMORR 02/06/2017 Ot 174.9 MALIGN NEOPL BREAST NOS 02/06/2017 Ot 174.9 MALIGN NEOPL BREAST NOS 02/06/2017 Ot V76.11 SCRN MAMMO-HIGH RISK PT, MALIGNANT NEOPL 02/06/2017 Ot 174.9 MALIGN NEOPL BREAST NOS 02/06/2017 Ot 793.81 MAMMOGRAPHIC MICROCLACIFICATION 02/06/2017 Ot 793.81 MAMMOGRAPHIC MICROCLACIFICATION 02/06/2017 Ot V64.3 NO PROC FOR REASONS NEC 02/06/2017 Ot 611.72 LUMP OR MASS IN BREAST 02/06/2017 Ot V72.83 EXAM PRE-OPERATIVE NEC 02/06/2017 Ot V74.8 SCREEN-BACTERIAL DIS NEC 02/06/2017 Ot 611.89 OTHER SPECIFIED DISORDERS OF BREAST 02/06/2017 Ot V67.09 SURGERY FOLLOW-UP, OTHER SURGERY 02/06/2017 MEGHA PANDA MD Ot 786.2 COUGH 02/06/2017 Ot 729.5 PAIN IN LIMB 02/06/2017 Ot V12.51 HX-VENOUS THROMBOSIS EMBOLISM 02/06/2017 FAITH TURK Ot 174.9 MALIGN NEOPL BREAST NOS 02/06/2017 MEGHA PANDA MD Ot 453.40 ACUTE VENOUS EMBOLISM THROMBOSIS UNSP 02/06/2017 FAITH TURK Ot V10.3 HX OF BREAST MALIGNANCY 02/06/2017 FAITH TURK Ot V67.9 FOLLOW-UP EXAM NOS 02/06/2017 ERVIN OSBORNE MD Ot 593.9 RENAL URETERAL DIS NOS 02/06/2017 ERVIN OSBORNE MD Ot 753.10 CYSTIC KIDNEY DISEASE, UNSPECIFIED 02/06/2017 JOSELUIS BORGES CAMPAIGN ANALYST Ot 174.9 MALIGN NEOPL BREAST NOS 02/06/2017 JOSELUIS BORGES CAMPAIGN ANALYST Ot V67.9 FOLLOW-UP EXAM NOS 02/06/2017 ERVIN OSBORNE MD Ot 593.2 CYST OF KIDNEY, ACQUIRED 02/06/2017 NIRAV MOULTON, ARI Ot V72.84 EXAM PRE-OPERATIVE NOS 02/06/2017 ERVIN OSBORNE MD Ot 593.2 CYST OF KIDNEY, ACQUIRED 02/06/2017 FAITH TURK Ot 174.9 MALIGN NEOPL BREAST NOS 02/06/2017 FAITH TURK Ot V67.9 FOLLOW-UP EXAM NOS 02/06/2017 FAITH TURK Ot 793.80 UNSPEC ABNORMAL MAMMOGRAM 02/06/2017 RAVEN LEO SET BUILDER Ot 729.5 PAIN IN LIMB 02/06/2017 RAVEN LEO SET BUILDER Ot 786.05 SHORTNESS OF BREATH 02/06/2017 ERVIN OSBORNE MD Ot 593.2 CYST OF KIDNEY, ACQUIRED 02/06/2017 FARZAD MOULTON, MEGHA Ku Ot 428.0 CONGESTIVE HEART FAILURE NOS 02/06/2017 ERVIN OSBORNE MD Ot 753.10 CYSTIC KIDNEY DISEASE, UNSPECIFIED 02/06/2017 FAITH TURK Ot V10.3 HX OF BREAST MALIGNANCY 02/06/2017 FAITH TURK Ot V12.51 HX-VENOUS THROMBOSIS EMBOLISM 02/06/2017 FAITH TURK Ot V12.55 PERSONAL HISTORY OF PULMONARY EMBOLISM 02/06/2017 FAITH TURK Ot V45.71 ACQUIRED ABSENCE OF BREAST AND NIPPLE 02/06/2017 FAITH TURK Ot V58.61 ANTICOAGULANTS,LT,CURRENT USE 02/06/2017 FAITH TURK Ot V58.69 OTH MED,LT,CURRENT USE 02/06/2017 FAITH UTRK Ot V67.2 CHEMOTHERAPY FOLLOW-UP 02/06/2017 ROSALEE, BOBAN N Ot 174.9 MALIGN NEOPL BREAST NOS 02/06/2017 MEGHA PANDA MD Ot 276.1 HYPOSMOLALITY 02/06/2017 MEGHA PANDA MD Ot 250.00 DIAB TJ WO COMPL, TYPE II OR UNSPEC TY 02/06/2017 MEGHA PANDA MD Ot 276.8 HYPOPOTASSEMIA 02/06/2017 MEGHA PANDA MD Ot 250.00 DIAB TJ WO COMPL, TYPE II OR UNSPEC TY 02/06/2017 MEGHA PANDA MD Ot V58.69 OTH MED,LT,CURRENT USE 02/06/2017 MEGHA PANDA MD Ot L03.90 CELLULITIS, UNSPECIFIED 02/06/2017 MEGHA PANDA MD Ot Z51.81 ENCOUNTER FOR THERAPEUTIC DRUG LEVEL MON 02/06/2017 MEGHA PANDA MD Ot Z79.2 DIRECTOR GLOBAL DEVELOPMENT (CURRENT) USE OF ANTIBIOTICS 02/06/2017 AGATHA ESPINAL Ot N39.0 URINARY TRACT INFECTION, SITE NOT SPECIF 02/06/2017 DANY ESPINAL DO Ot E03.9 HYPOTHYROIDISM, UNSPECIFIED 02/06/2017 DANY ESPINAL DO Ot I48.2 CHRONIC ATRIAL FIBRILLATION 02/06/2017 DANY ESPINAL DO Ot N39.0 URINARY TRACT INFECTION, SITE NOT SPECIF 02/06/2017 DANY ESPINAL DO Ot N39.0 URINARY TRACT INFECTION, SITE NOT SPECIF 02/06/2017 Ot 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 02/06/2017 Ot N28.1 CYST OF KIDNEY, ACQUIRED 02/06/2017 JOSELUIS BORGES Ot Z08 ENCNTR FOR FOLLOW-UP EXAM AFTER TRTMT FO 02/06/2017 JOSELUIS BORGES Ot Z79.01 MCC (CURRENT) USE OF ANTICOAGULANT 02/06/2017 JOSELUIS BORGES Ot Z85.3 PERSONAL HISTORY OF MALIGNANT NEOPLASM O 02/06/2017 JOSELUIS BORGES Ot Z86.718 PERSONAL HISTORY OF OTHER VENOUS THROMBO 02/06/2017 JOSELUIS BORGES Ot Z90.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 02/06/2017 JOSELUIS BORGES Ot Z12.31 ENCNTR SCREEN MAMMOGRAM FOR MALIGNANT NE 02/06/2017 DANY ESPINAL DO Ot F02.81 DEMENTIA IN OT DISEASES CLASSD ELSWHR W 02/06/2017 DANY ESPINAL DO Ot 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 , 02/06/2017 JOSELUIS BORGES Ot R92.8 OT ABN AND INCONCLUSIVE FINDINGS ON DX 02/07/2017 SHEELA BANUELOS MD Ot E78.2 MIXED HYPERLIPIDEMIA 02/07/2017 SHEELA BANUELOS MD Ot G25.0 ESSENTIAL TREMOR 02/07/2017 SHEELA BANUELOS MD Ot I10 ESSENTIAL (PRIMARY) HYPERTENSION 02/07/2017 SHEELA BANUELOS MD Ot I48.0 PAROXYSMAL ATRIAL FIBRILLATION 02/07/2017 SHEELA BANUELOS MD Ot R07.9 CHEST PAIN, UNSPECIFIED 02/12/2017 SHEELA BANUELOS MD Ot E78.2 MIXED HYPERLIPIDEMIA 02/12/2017 SHEELA BANUELOS MD Ot G25.0 ESSENTIAL TREMOR 02/12/2017 SHEELA BANUELOS MD Ot I10 ESSENTIAL (PRIMARY) HYPERTENSION 02/12/2017 SHEELA BANUELOS MD Ot I48.0 PAROXYSMAL ATRIAL FIBRILLATION 02/12/2017 SHEELA BANUELOS MD Ot R07.9 CHEST PAIN, UNSPECIFIED 02/27/2017 SHEELA BANUELOS MD Ot E78.2 MIXED HYPERLIPIDEMIA 02/27/2017 SHEELA BANUELOS MD Ot G25.0 ESSENTIAL TREMOR 02/27/2017 SHEELA BANUELOS MD Ot I10 ESSENTIAL (PRIMARY) HYPERTENSION 02/27/2017 SHELEA BANUELOS MD Ot I48.0 PAROXYSMAL ATRIAL FIBRILLATION 02/27/2017 SHEELA BANUELOS MD Ot R07.9 CHEST PAIN, UNSPECIFIED 03/05/2017 SANGEETA MARSHALL MD Ot E66.9 OBESITY, UNSPECIFIED 03/05/2017 SANGEETA MARSHALL MD Ot E78.5 HYPERLIPIDEMIA, UNSPECIFIED 03/05/2017 SANGEETA MARSHALL MD Ot E87.6 HYPOKALEMIA 03/05/2017 SANGEETA MARSHALL MD Ot F31.9 BIPOLAR DISORDER, UNSPECIFIED 03/05/2017 SANGEETA MARSHALL MD Ot G25.0 ESSENTIAL TREMOR 03/05/2017 SANGEETA MARSHALL MD Ot G47.33 OBSTRUCTIVE SLEEP APNEA (ADULT) (PEDIATR 03/05/2017 SANGEETA MARSHALL MD Ot 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9, ADULT 03/05/2017 SANGEETA MARSHALL MD Ot Z86.718 PERSONAL HISTORY OF OTHER VENOUS THROMBO 03/05/2017 SANGEETA MARSHALL MD Ot E66.9 OBESITY, UNSPECIFIED 03/05/2017 SANGEETA MARSHALL MD Ot E78.5 HYPERLIPIDEMIA, UNSPECIFIED 03/05/2017 SANGEETA MARSHALL MD Ot E87.6 HYPOKALEMIA 03/05/2017 SANGEETA MARSHALL MD Ot F31.9 BIPOLAR DISORDER, UNSPECIFIED 03/05/2017 SANGEETA MARSHALL MD Ot G25.0 ESSENTIAL TREMOR 03/05/2017 SANGEETA MARSHALL MD Ot G47.33 OBSTRUCTIVE SLEEP APNEA (ADULT) (PEDIATR 03/05/2017 SANGEETA MARSHALL MD Ot 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9, ADULT 03/05/2017 SANGEETA MARSHALL MD Ot Z86.718 PERSONAL HISTORY OF OTHER VENOUS THROMBO 03/06/2017 BLANCHO DPMFRANCK Ot M21.6X1 OTHER ACQUIRED DEFORMITIES OF RIGHT FOOT 03/06/2017 BLANCHO DPMFRANCK Ot Z01.818 ENCOUNTER FOR OTHER PREPROCEDURAL EXAMIN 03/06/2017 YASSINENCHO DPMFRANCK Ot Z11.2 ENCOUNTER FOR SCREENING FOR OTHER BACTER 03/06/2017 SHEELA BANUELOS MD Ot E78.2 MIXED HYPERLIPIDEMIA 03/06/2017 SHEELA BANUELOS MD Ot G25.0 ESSENTIAL TREMOR 03/06/2017 SHEELA BANUELOS MD Ot I10 ESSENTIAL (PRIMARY) HYPERTENSION 03/06/2017 SHEELA BANUELOS MD Ot I48.0 PAROXYSMAL ATRIAL FIBRILLATION 03/06/2017 SHEELA BANUELOS MD Ot R07.9 CHEST PAIN, UNSPECIFIED 03/08/2017 BLANCHO DPM, FRANCK Stanton Ot M21.6X1 OTHER ACQUIRED DEFORMITIES OF RIGHT FOOT 03/08/2017 BLANCHO DPMFRANCK Ot Z01.818 ENCOUNTER FOR OTHER PREPROCEDURAL EXAMIN 03/08/2017 BLANCHO DPMFRANCK Ot Z11.2 ENCOUNTER FOR SCREENING FOR OTHER BACTER 03/12/2017 BLANCHO DPMFRANCK Ot M21.6X1 OTHER ACQUIRED DEFORMITIES OF RIGHT FOOT 03/12/2017 BLANCHO DPMFRANCK Ot Z01.818 ENCOUNTER FOR OTHER PREPROCEDURAL EXAMIN 03/12/2017 BLANCHO DPMFRANCK Ot Z11.2 ENCOUNTER FOR SCREENING FOR OTHER BACTER 03/13/2017 Ot 250.00 DIAB TJ WO COMPL, TYPE II OR UNSPEC TY 03/13/2017 Ot 401.9 HYPERTENSION NOS 03/13/2017 Ot 562.10 DIVERTICULOSIS COLON (W/O MENT OF HEMORR 03/13/2017 Ot 569.89 INTESTINAL DISORDERS NEC 03/13/2017 Ot V10.3 HX OF BREAST MALIGNANCY 03/13/2017 Ot V58.61 ANTICOAGULANTS,LT,CURRENT USE 03/13/2017 Ot V58.69 OTH MED,LT,CURRENT USE 03/13/2017 Ot V76.51 SCREEN MAL NEOP-COLON 03/13/2017 Ot 562.10 DIVERTICULOSIS COLON (W/O MENT OF HEMORR 03/13/2017 Ot 174.9 MALIGN NEOPL BREAST NOS 03/13/2017 Ot 174.9 MALIGN NEOPL BREAST NOS 03/13/2017 Ot V76.11 SCRN MAMMO-HIGH RISK PT, MALIGNANT NEOPL 03/13/2017 Ot 174.9 MALIGN NEOPL BREAST NOS 03/13/2017 Ot 793.81 MAMMOGRAPHIC MICROCLACIFICATION 03/13/2017 Ot 793.81 MAMMOGRAPHIC MICROCLACIFICATION 03/13/2017 Ot V64.3 NO PROC FOR REASONS NEC 03/13/2017 Ot 611.72 LUMP OR MASS IN BREAST 03/13/2017 Ot V72.83 EXAM PRE-OPERATIVE NEC 03/13/2017 Ot V74.8 SCREEN-BACTERIAL DIS NEC 03/13/2017 Ot 611.89 OTHER SPECIFIED DISORDERS OF BREAST 03/13/2017 Ot V67.09 SURGERY FOLLOW-UP, OTHER SURGERY 03/13/2017 FARZAD MOULTON, MEGHA Ku Ot 786.2 COUGH 03/13/2017 Ot 729.5 PAIN IN LIMB 03/13/2017 Ot V12.51 HX-VENOUS THROMBOSIS EMBOLISM 03/13/2017 FAITH TURK Ot 174.9 MALIGN NEOPL BREAST NOS 03/13/2017 MEGHA PANDA MD Ot 453.40 ACUTE VENOUS EMBOLISM THROMBOSIS UNSP 03/13/2017 FAITH TURK Ot V10.3 HX OF BREAST MALIGNANCY 03/13/2017 FAITH TURK Ot V67.9 FOLLOW-UP EXAM NOS 03/13/2017 INDIA MOULTON, ERVIN Lanier Ot 593.9 RENAL URETERAL DIS NOS 03/13/2017 INDIA MOULTON, ERVIN Lanier Ot 753.10 CYSTIC KIDNEY DISEASE, UNSPECIFIED 03/13/2017 JOSELUIS BORGES CAMPAIGN ANALYST Ot 174.9 MALIGN NEOPL BREAST NOS 03/13/2017 JOSELUIS BORGES CAMPAIGN ANALYST Ot V67.9 FOLLOW-UP EXAM NOS 03/13/2017 INDIA MOULTON, ERVIN Lanier Ot 593.2 CYST OF KIDNEY, ACQUIRED 03/13/2017 NIRAV MOULTON, ARI Ot V72.84 EXAM PRE-OPERATIVE NOS 03/13/2017 INDIA MOULTON, ERVIN Lanier Ot 593.2 CYST OF KIDNEY, ACQUIRED 03/13/2017 ROSALEEFAITH Ot 174.9 MALIGN NEOPL BREAST NOS 03/13/2017 ROSALEE FAITH Ratliff Ot V67.9 FOLLOW-UP EXAM NOS 03/13/2017 ROSALEE FAITH Ratliff Ot 793.80 UNSPEC ABNORMAL MAMMOGRAM 03/13/2017 RAVEN LEO SET BUILDER Ot 729.5 PAIN IN LIMB 03/13/2017 RAVEN LEO SET BUILDER Ot 786.05 SHORTNESS OF BREATH 03/13/2017 INDIA MOULTON, ERVIN Lanier Ot 593.2 CYST OF KIDNEY, ACQUIRED 03/13/2017 FARZAD MOULTON, MEGHA Ku Ot 428.0 CONGESTIVE HEART FAILURE NOS 03/13/2017 INDIA MOULTON, ERVIN Lanier Ot 753.10 CYSTIC KIDNEY DISEASE, UNSPECIFIED 03/13/2017 FAITH TURK Ot V10.3 HX OF BREAST MALIGNANCY 03/13/2017 FAITH TURK Ot V12.51 HX-VENOUS THROMBOSIS EMBOLISM 03/13/2017 FAITH TURK Ot V12.55 PERSONAL HISTORY OF PULMONARY EMBOLISM 03/13/2017 FAITH TURK Ot V45.71 ACQUIRED ABSENCE OF BREAST AND NIPPLE 03/13/2017 FAITH TURK Ot V58.61 ANTICOAGULANTS,LT,CURRENT USE 03/13/2017 FAITH TURK Ot V58.69 OTH MED,LT,CURRENT USE 03/13/2017 FAITH TURK Ot V67.2 CHEMOTHERAPY FOLLOW-UP 03/13/2017 FAITH TURK Ot 174.9 MALIGN NEOPL BREAST NOS 03/13/2017 MEGHA PANDA MD Ot 276.1 HYPOSMOLALITY 03/13/2017 MEGHA PANDA MD Ot 250.00 DIAB TJ WO COMPL, TYPE II OR UNSPEC TY 03/13/2017 MEGHA PANDA MD Ot 276.8 HYPOPOTASSEMIA 03/13/2017 MEGHA PANDA MD Ot 250.00 DIAB TJ WO COMPL, TYPE II OR UNSPEC TY 03/13/2017 MEGHA PANDA MD Ot V58.69 OTH MED,LT,CURRENT USE 03/13/2017 MEGHA PANDA MD Ot L03.90 CELLULITIS, UNSPECIFIED 03/13/2017 FARZAD MOULTON, MEGHA Ku Ot Z51.81 ENCOUNTER FOR THERAPEUTIC DRUG LEVEL MON 03/13/2017 MEGHA PANDA MD Ot Z79.2 DIRECTOR GLOBAL DEVELOPMENT (CURRENT) USE OF ANTIBIOTICS 03/13/2017 AGATHA ESPINAL Ot N39.0 URINARY TRACT INFECTION, SITE NOT SPECIF 03/13/2017 DANY ESPINAL DO Ot E03.9 HYPOTHYROIDISM, UNSPECIFIED 03/13/2017 DANY ESPINAL DO Ot I48.2 CHRONIC ATRIAL FIBRILLATION 03/13/2017 DANY ESPINAL DO Ot N39.0 URINARY TRACT INFECTION, SITE NOT SPECIF 03/13/2017 DANY ESPINAL DO Ot N39.0 URINARY TRACT INFECTION, SITE NOT SPECIF 03/13/2017 Ot 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 03/13/2017 Ot N28.1 CYST OF KIDNEY, ACQUIRED 03/13/2017 JOSELUIS BORGES Ot Z08 ENCNTR FOR FOLLOW-UP EXAM AFTER TRTMT FO 03/13/2017 JOSELUIS BORGES Ot Z79.01 DIRECTOR GLOBAL DEVELOPMENT (CURRENT) USE OF ANTICOAGULANT 03/13/2017 JOSELUIS BORGES Ot Z85.3 PERSONAL HISTORY OF MALIGNANT NEOPLASM O 03/13/2017 JOSELUIS BORGES Ot Z86.718 PERSONAL HISTORY OF OTHER VENOUS THROMBO 03/13/2017 JOSELUIS BORGES Ot Z90.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 03/13/2017 JOSELUIS BORGES Ot Z12.31 ENCNTR SCREEN MAMMOGRAM FOR MALIGNANT NE 03/13/2017 DANY ESPINAL DO Ot 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 03/13/2017 DANY ESPINAL DO Ot 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 , 03/13/2017 JOSELUIS BORGES Ot R92.8 OTH ABN AND INCONCLUSIVE FINDINGS ON DX 03/13/2017 SHEELA BANUELOS MD Ot E78.2 MIXED HYPERLIPIDEMIA 03/13/2017 SHEELA BANUELOS MD, Ot G25.0 ESSENTIAL TREMOR 03/13/2017 SHEELA BANUELOS MD Ot I10 ESSENTIAL (PRIMARY) HYPERTENSION 03/13/2017 SHEELA BANUELOS MD Ot I48.0 PAROXYSMAL ATRIAL FIBRILLATION 03/13/2017 LAKISHA MOULTON, SHEELA Short Ot R07.9 CHEST PAIN, UNSPECIFIED 03/13/2017 BLANCHO DPM, FRANCK Stanton Ot E11.9 TYPE 2 DIABETES MELLITUS WITHOUT COMPLIC 03/13/2017 BLANCHO DPM, FRANCK Stanton Ot I10 ESSENTIAL (PRIMARY) HYPERTENSION 03/13/2017 BLANCHO DPM, FRANCK Stanton Ot M20.41 OTHER HAMMER TOE(S) (ACQUIRED), RIGHT FO 03/13/2017 BLANCHO DPM, FRANCK Stanton Ot M21.6X1 OTHER ACQUIRED DEFORMITIES OF RIGHT FOOT 03/13/2017 BLANCHO DPM, FRANCK Stanton Ot Z79.4 MCC (CURRENT) USE OF INSULIN 03/13/2017 JOAOHO DPAsh, FRANCK Maximino Ot Z79.84 DIRECTOR GLOBAL DEVELOPMENT (CURRENT) USE OF ORAL HYPOGLYC 03/13/2017 YASSINENCHO DPAsh, FRANCK Stanton Ot Z79.899 OTHER DIRECTOR GLOBAL DEVELOPMENT (CURRENT) DRUG THERAPY 03/28/2017 Ot 250.00 DIAB TJ WO COMPL, TYPE II OR UNSPEC TY 03/28/2017 Ot 401.9 HYPERTENSION NOS 03/28/2017 Ot 562.10 DIVERTICULOSIS COLON (W/O MENT OF HEMORR 03/28/2017 Ot 569.89 INTESTINAL DISORDERS NEC 03/28/2017 Ot V10.3 HX OF BREAST MALIGNANCY 03/28/2017 Ot V58.61 ANTICOAGULANTS,LT,CURRENT USE 03/28/2017 Ot V58.69 OTH MED,LT,CURRENT USE 03/28/2017 Ot V76.51 SCREEN MAL NEOP-COLON 03/28/2017 Ot 562.10 DIVERTICULOSIS COLON (W/O MENT OF HEMORR 03/28/2017 Ot 174.9 MALIGN NEOPL BREAST NOS 03/28/2017 Ot 174.9 MALIGN NEOPL BREAST NOS 03/28/2017 Ot V76.11 SCRN MAMMO-HIGH RISK PT, MALIGNANT NEOPL 03/28/2017 Ot 174.9 MALIGN NEOPL BREAST NOS 03/28/2017 Ot 793.81 MAMMOGRAPHIC MICROCLACIFICATION 03/28/2017 Ot 793.81 MAMMOGRAPHIC MICROCLACIFICATION 03/28/2017 Ot V64.3 NO PROC FOR REASONS NEC 03/28/2017 Ot 611.72 LUMP OR MASS IN BREAST 03/28/2017 Ot V72.83 EXAM PRE-OPERATIVE NEC 03/28/2017 Ot V74.8 SCREEN-BACTERIAL DIS NEC 03/28/2017 Ot 611.89 OTHER SPECIFIED DISORDERS OF BREAST 03/28/2017 Ot V67.09 SURGERY FOLLOW-UP, OTHER SURGERY 03/28/2017 FARZAD MOULTON, MEGHA Ku Ot 786.2 COUGH 03/28/2017 Ot 729.5 PAIN IN LIMB 03/28/2017 Ot V12.51 HX-VENOUS THROMBOSIS EMBOLISM 03/28/2017 FAITH TURK Ot 174.9 MALIGN NEOPL BREAST NOS 03/28/2017 FARZAD MOULTON, MEGHA Ku Ot 453.40 ACUTE VENOUS EMBOLISM THROMBOSIS UNSP 03/28/2017 FAITH TURK Ot V10.3 HX OF BREAST MALIGNANCY 03/28/2017 FAITH TURK Ot V67.9 FOLLOW-UP EXAM NOS 03/28/2017 INDIA MOULTON, ERVIN Lanier Ot 593.9 RENAL URETERAL DIS NOS 03/28/2017 INDIA MOULTON, ERVIN Lanier Ot 753.10 CYSTIC KIDNEY DISEASE, UNSPECIFIED 03/28/2017 JOSELUIS BORGES CAMPAIGN ANALYST Ot 174.9 MALIGN NEOPL BREAST NOS 03/28/2017 JOSELUIS BORGES CAMPAIGN ANALYST Ot V67.9 FOLLOW-UP EXAM NOS 03/28/2017 ERVIN OSBORNE MD Ot 593.2 CYST OF KIDNEY, ACQUIRED 03/28/2017 NIRAV MOULTON, ARI Ot V72.84 EXAM PRE-OPERATIVE NOS 03/28/2017 ERVIN OSBORNE MD Ot 593.2 CYST OF KIDNEY, ACQUIRED 03/28/2017 FAITH TURK Ot 174.9 MALIGN NEOPL BREAST NOS 03/28/2017 FAITH TURK Ot V67.9 FOLLOW-UP EXAM NOS 03/28/2017 FAITH TURK Ot 793.80 UNSPEC ABNORMAL MAMMOGRAM 03/28/2017 RAVEN LEO APRN Ot 729.5 PAIN IN LIMB 03/28/2017 RAVEN LEO APRN Ot 786.05 SHORTNESS OF BREATH 03/28/2017 ERVIN OSBORNE MD Ot 593.2 CYST OF KIDNEY, ACQUIRED 03/28/2017 MARSHA DPAsh, FRANCK Stanton Ot M79.604 PAIN IN RIGHT LEG 04/19/2017 FRANCK LARSON DPM Ot M79.604 PAIN IN RIGHT LEG 04/25/2017 SARAH NELLY CHAUHAN Ot I51.7 CARDIOMEGALY 04/25/2017 NELLY SMITH DO Ot N39.0 URINARY TRACT INFECTION, SITE NOT SPECIF 04/25/2017 NELLY SMITH DO Ot R09.89 OTH SYMPTOMS AND SIGNS INVOLVING THE CIR 04/25/2017 AGATHA ESPINAL CAMPAIGN ANALYST Ot N28.1 CYST OF KIDNEY, ACQUIRED 04/25/2017 AGATHA ESPINAL CAMPAIGN ANALYST Ot R10.2 PELVIC AND PERINEAL PAIN 04/26/2017 INDIA MOULTON, ERVIN Lanier Ot N28.1 CYST OF KIDNEY, ACQUIRED 04/26/2017 MARSHA PAL, FRANCK Stanton Ot M79.604 PAIN IN RIGHT LEG 04/26/2017 INDIA MOULTON, ERVIN Lanier Ot N28.1 CYST OF KIDNEY, ACQUIRED 04/26/2017 INDIA MOULTON, ERVIN Lanier Ot N28.1 CYST OF KIDNEY, ACQUIRED 04/26/2017 INDIA MOULTON, ERVIN A Ot N28.1 CYST OF KIDNEY, ACQUIRED 05/10/2017 FAITH TURK Ot E11.9 TYPE 2 DIABETES MELLITUS WITHOUT COMPLIC 05/10/2017 FAITH TURK Ot E78.5 HYPERLIPIDEMIA, UNSPECIFIED 05/10/2017 FAITH TURK Ot I10 ESSENTIAL (PRIMARY) HYPERTENSION 05/10/2017 FAITH TURK Ot Z08 ENCNTR FOR FOLLOW-UP EXAM AFTER TRTMT FO 05/10/2017 FAITH TURK Ot Z79.01 DIRECTOR GLOBAL DEVELOPMENT (CURRENT) USE OF ANTICOAGULANT 05/10/2017 FAITH TURK Ot Z79.4 MCC (CURRENT) USE OF INSULIN 05/10/2017 FAITH TURK Ot Z85.3 PERSONAL HISTORY OF MALIGNANT NEOPLASM O 05/10/2017 FAITH TURK Ot Z86.718 PERSONAL HISTORY OF OTHER VENOUS THROMBO 05/10/2017 FAITH TURK Ot Z90.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 05/10/2017 FAITH TURK Ot Z92.21 PERSONAL HISTORY OF ANTINEOPLASTIC CHEMO 05/14/2017 AGATHA ESPINAL CAMPAIGN ANALYST Ot N28.1 CYST OF KIDNEY, ACQUIRED 05/14/2017 AGATHA ESPINAL CAMPAIGN ANALYST Ot R10.2 PELVIC AND PERINEAL PAIN 05/14/2017 INDIA MOULTON, ERVIN Lanier Ot N28.1 CYST OF KIDNEY, ACQUIRED 05/24/2017 ERVIN OSBORNE MD Ot N28.1 CYST OF KIDNEY, ACQUIRED 05/30/2017 YANG VALERA MD Ot K62.5 HEMORRHAGE OF ANUS AND RECTUM 05/30/2017 YANG VALERA MD Ot Z01.818 ENCOUNTER FOR OTHER PREPROCEDURAL EXAMIN Procedures Code Description Performed By Performed On 88.72 DX ULTRASOUND-HEART 12/30/2012 99.62 HEART COUNTERSHOCK NEC 12/30/2012 37.22 LEFT HEART CARDIAC CATH 11/14/2014 88.53 LT HEART ANGIOCARDIOGRAM 11/14/2014 88.56 CORONAR ARTERIOGR-2 CATH 11/14/2014 [id number] REPOSITION R UP FEMUR WITH INTRAMED FIX, 09/04/2015 [id number] REMOVAL OF INT FIX FROM R UP FEMUR, EXTE 09/16/2015 [id number] REPOSITION RIGHT UPPER FEMUR WITH INT FI 09/16/2015 [id number] DRAIN OF L UP LEG SUBCU/FASCIA WITH DRAI 10/17/2015 Results Test Result Range Complete blood count (CBC) with automated white blood cell (WBC) differential - 03/04/17 22:25 Blood leukocytes automated count (number/volume) 12.6 10*3/ uL 4.3-11.0 Blood erythrocytes automated count (number/volume) 4.79 10*6 /uL 4.35-5.85 Venous blood hemoglobin measurement (mass/volume) 14.2 g/dL 11.5-16.0 Blood hematocrit (volume fraction) 43 % 35-52 Automated erythrocyte mean corpuscular volume 90 [foz_us] 80-99 Automated erythrocyte mean corpuscular hemoglobin (mass per erythrocyte) 30 pg 25-34 Automated erythrocyte mean corpuscular hemoglobin concentration measurement ( mass/volume) 33 g/dL 32-36 Automated erythrocyte distribution width ratio 14.3 % 10.0-14.5 Automated blood platelet count (count/volume) 262 10*3/uL 130-400 Automated blood platelet mean volume measurement 12.0 [foz_ us] 7.4-10.4 Automated blood neutrophils/100 leukocytes 62 % 42-75 Automated blood lymphocytes/100 leukocytes 30 % 12-44 Blood monocytes/100 leukocytes 6 % 0-12 Automated blood eosinophils/100 leukocytes 2 % 0-10 Automated blood basophils/100 leukocytes 1 % 0-10 Blood neutrophils automated count (number/volume) 7.8 10*3 1.8-7.8 Blood lymphocytes automated count (number/volume) 3.7 10*3 1.0-4.0 Blood monocytes automated count (number/volume) 0.8 10*3 0.0-1.0 Automated eosinophil count 0.2 10*3/uL 0.0-0.3 Automated blood basophil count (count/volume) 0.1 10*3/uL 0.0-0.1 PT panel in platelet poor plasma by coagulation assay - 03/04/17 22:25 Prothrombin time (PT) in platelet poor plasma by coagulation assay 14.8 s 12.2-14.7 INR in platelet poor plasma or blood by coagulation assay 1.2 0.8-1.4 Activated partial thromboplastin time (aPTT) in platelet poor plasma bycoagulation assay - 03/04/17 22:25 Activated partial thromboplastin time (aPTT) in platelet poor plasma bycoagulation assay 30 s 24-35 Comprehensive metabolic panel - 03/04/17 22:25 Serum or plasma sodium measurement (moles/volume) 144 mmol/ L 135-145 Serum or plasma potassium measurement (moles/volume) 2.9 mmol/L 3.6-5.0 Serum or plasma chloride measurement (moles/volume) 102 mmol /L 98-107 Carbon dioxide 29 mmol/L 21-32 Serum or plasma anion gap determination (moles/volume) 13 mmol/L 5-14 Serum or plasma urea nitrogen measurement (mass/volume) 12 mg/dL 7-18 Serum or plasma creatinine measurement (mass/volume) 0.84 mg /dL 0.60-1.30 Serum or plasma urea nitrogen/creatinine mass ratio 14 NRG Serum or plasma creatinine measurement with calculation of estimated glomerular filtration rate > NRG Serum or plasma glucose measurement (mass/volume) 117 mg/dL 70-105 Serum or plasma calcium measurement (mass/volume) 9.5 mg/dL 8.5-10.1 Serum or plasma total bilirubin measurement (mass/volume) 0.4 mg/dL 0.1-1.0 Serum or plasma alkaline phosphatase measurement (enzymatic activity/volume) 65 U/L 40-136 Serum or plasma aspartate aminotransferase measurement (enzymatic activity/ volume) 60 U/L 5-34 Serum or plasma alanine aminotransferase measurement (enzymatic activity/volume ) 20 U/L 0-55 Serum or plasma protein measurement (mass/volume) 7.3 g/dL 6.4-8.2 Serum or plasma albumin measurement (mass/volume) 3.3 g/dL 3.2-4.5 Magnesium - 03/04/17 22:25 Magnesium 2.0 mg/dL 1.8-2.4 Serum or plasma troponin i.cardiac measurement (mass/volume) - 03/04/17 22:25 Serum or plasma troponin i.cardiac measurement (mass/volume) < ng/mL <0.30 Myoglobin, serum - 03/04/17 22:25 Myoglobin, serum 30.2 ng/mL 10.0-92.0 Digoxin - 03/04/17 22:25 Digoxin < ng/mL 0.80-2.00 Serum or plasma C reactive protein measurement (mass/volume) - 03/04/17 22:25 Serum or plasma C reactive protein measurement (mass/volume) 0.53 mg/dL 0.00-0.50 Complete blood count (CBC) with automated white blood cell (WBC) differential - 03/05/17 04:50 Blood leukocytes automated count (number/volume) 14.9 10*3/ uL 4.3-11.0 Blood erythrocytes automated count (number/volume) 4.20 10*6 /uL 4.35-5.85 Venous blood hemoglobin measurement (mass/volume) 12.6 g/dL 11.5-16.0 Blood hematocrit (volume fraction) 38 % 35-52 Automated erythrocyte mean corpuscular volume 91 [foz_us] 80-99 Automated erythrocyte mean corpuscular hemoglobin (mass per erythrocyte) 30 pg 25-34 Automated erythrocyte mean corpuscular hemoglobin concentration measurement ( mass/volume) 33 g/dL 32-36 Automated erythrocyte distribution width ratio 14.2 % 10.0-14.5 Automated blood platelet count (count/volume) 243 10*3/uL 130-400 Automated blood platelet mean volume measurement 11.8 [foz_ us] 7.4-10.4 Automated blood neutrophils/100 leukocytes 76 % 42-75 Automated blood lymphocytes/100 leukocytes 18 % 12-44 Blood monocytes/100 leukocytes 5 % 0-12 Automated blood eosinophils/100 leukocytes 1 % 0-10 Automated blood basophils/100 leukocytes 1 % 0-10 Blood neutrophils automated count (number/volume) 11.3 10*3 1.8-7.8 Blood lymphocytes automated count (number/volume) 2.7 10*3 1.0-4.0 Blood monocytes automated count (number/volume) 0.8 10*3 0.0-1.0 Automated eosinophil count 0.1 10*3/uL 0.0-0.3 Automated blood basophil count (count/volume) 0.1 10*3/uL 0.0-0.1 Whole blood basic metabolic panel - 03/05/17 04:50 Serum or plasma sodium measurement (moles/volume) 142 mmol/ L 135-145 Serum or plasma potassium measurement (moles/volume) 3.6 mmol/L 3.6-5.0 Serum or plasma chloride measurement (moles/volume) 106 mmol /L 98-107 Carbon dioxide 23 mmol/L 21-32 Serum or plasma anion gap determination (moles/volume) 13 mmol/L 5-14 Serum or plasma urea nitrogen measurement (mass/volume) 11 mg/dL 7-18 Serum or plasma creatinine measurement (mass/volume) 0.73 mg /dL 0.60-1.30 Serum or plasma urea nitrogen/creatinine mass ratio 15 NRG Serum or plasma creatinine measurement with calculation of estimated glomerular filtration rate > NRG Serum or plasma glucose measurement (mass/volume) 173 mg/dL 70-105 Serum or plasma calcium measurement (mass/volume) 9.2 mg/dL 8.5-10.1 Serum or plasma troponin i.cardiac measurement (mass/volume) - 03/05/17 04:50 Serum or plasma troponin i.cardiac measurement (mass/volume) < ng/mL <0.30 Lipid 1996 panel - 03/05/17 04:50 Serum or plasma triglyceride measurement (mass/volume) 107 mg/dL <150 Serum or plasma cholesterol measurement (mass/volume) 165 mg /dL < 200 Serum or plasma cholesterol in HDL measurement (mass/volume) 61 mg/dL 40-60 Cholesterol in LDL [mass/volume] in serum or plasma by direct assay 81 mg/dL 1-129 Serum or plasma cholesterol in VLDL measurement (mass/volume) 21 mg/dL 5-40 Capillary blood glucose measurement by glucometer (mass/volume) - 03/05/17 09: 40 Capillary blood glucose measurement by glucometer (mass/volume) 201 mg/dL 70-110 Methicillin resistant Staphylococcus aureus (MRSA) screening culture - 10:15 MRSA SCREEN RESULT MRSA ISOLATED NRG Capillary blood glucose measurement by glucometer (mass/volume) - 03/13/17 06: 19 Capillary blood glucose measurement by glucometer (mass/volume) 186 mg/dL 70-110 Capillary blood glucose measurement by glucometer (mass/volume) - 05/31/17 07: 42 Capillary blood glucose measurement by glucometer (mass/volume) 174 mg/dL 70-110 Encounters ACCT No. Visit Date/Time Discharge Status Pt. Type Provider Facility Loc./Unit Complaint [id number] 05/31/2017 06:27:00 2016 10:05:00 DIS Outpatient YANG VALERA MD [facility] ENDO RECTAL BLEEDING [id number] 05/29/2017 05:34:00 2016 15:35:00 DIS Outpatient YANG VALERA MD [facility] PREOP COLONOSCOPY [id number] 03/13/2017 06:00:00 2016 11:25:00 DIS Outpatient FRANCK LARSON DPM [facility] SDC EQUINUS DEFORMITY RLE [id number] 03/06/2017 09:10:00 2016 10:27:00 DIS Outpatient FRANCK LARSON DPM [facility] PREOP EQUINUS DEFORMITY RLE [id number] 03/05/2017 00:09:00 2016 11:15:00 DIS Inpatient SANGEETA MARSHALL MD [facility] ICU CHEST PAIN [id number] 05/28/2016 19:14:00 2015 21:28:00 DIS Emergency JAYE MENG APRN [facility] ER CHEST PAIN [id number] 03/19/2016 01:26:00 2015 13:45:00 DIS Inpatient SANGEETA MARSHALL MD [facility] 4TH AMS; SUSPENDED UTI; FEVER [id number] 03/08/2016 21:09:00 2015 12:07:00 DIS Inpatient JOSE ELIAS NG DO [facility] 4TH SEPSIS,UTI,AMS [id number] 03/08/2016 01:39:00 2015 03:44:00 DIS Outpatient NELLY SMITH DO [facility] ER AMS,UTI,R LEG PAIN [id number] 01/30/2016 17:30:00 2015 14:30:00 DIS Inpatient SANGEETA MARSHALL MD Via [address] UTI,CONFUSION [id number] 10/15/2015 15:55:00 2014 16:30:00 DIS Inpatient MEGHA PANDA MD Via [address] EXTENSIVE CELLULITIS RT HIP,FEVER,S/P RT HIP IF [id number] 09/15/2015 14:20:00 2014 14:37:00 DIS Inpatient MEGHA MATIAS MD Via [address] HARDWARE FAILURE [id number] 09/08/2015 13:29:00 2014 13:30:00 DIS Inpatient JAQUAN MOULTON, VENUS Felix [facility] IRF RIGHT HIP FRACTURE, CLOSED [id number] 09/03/2015 18:45:00 2014 11:15:00 DIS Inpatient MEGHA PANDA MD [facility] 4TH RIGHT HIP FRACTURE, CLOSED [id number] 07/05/2015 10:30:00 2014 23:59:59 CLS Outpatient MEGHA PANDA MD [facility] DIABETES,CHRONIC DIURETIC USE [id number] 06/24/2015 10:40:00 2014 23:59:59 CLS Outpatient MEGHA PANDA MD [facility] DM, HYPOPOTASSEMIA [id number] 06/17/2015 12:00:00 2014 23:59:59 CLS Outpatient MEGHA PANDA MD [facility] HYPONATREMIA [id number] 05/20/2015 14:13:00 2014 09:42:00 DIS Outpatient RAVEN LEO APRN [facility] REHAB MUSCULOSKELETAL CHEST AND SHOULDER PAIN [id number] 06/14/2015 11:45:00 2014 14:36:00 DIS Outpatient WILLARD PARR [facility] CARD AFIB,HTN,SYNCOPE [id number] 06/08/2015 21:25:00 2014 13:15:00 DIS Inpatient MEGHA PANDA MD [facility] SURGICAL HYPONATREMIA, AMS, WEAKNESS [id number] 05/25/2015 07:00:00 2014 14:20:00 DIS Inpatient MEGHA PANDA MD [facility] SURGICAL FALL/CONTUSION [id number] 05/18/2015 14:02:00 2014 23:59:59 CLS Outpatient FAITH TURK [facility] RAD BREAST CA [id number] 05/12/2015 13:11:00 2014 23:59:59 CLS Outpatient FAITH TURK [facility] ONC [id number] 05/03/2015 13:04:00 2014 23:59:59 CLS Outpatient ERVIN OSBORNE MD [facility] RAD LEFT RENAL CYST [id number] 04/08/2015 21:00:00 2014 13:25:00 DIS Inpatient MGEHA PANDA MD [facility] ICU CHEST PAIN [id number] 01/10/2015 10:18:00 2014 23:59:59 CLS Outpatient SHEELA BANUELOS MD [facility] REHAB LEG AND BACK PAIN [id number] 11/29/2014 09:14:00 2014 23:59:59 CLS Outpatient MEGHA PANDA MD [facility] RAD F/U CHF [id number] 11/16/2014 10:19:00 2013 12:59:00 DIS Emergency DANY HOLLIS DO [facility] ER CHEST PAINS [id number] 11/14/2014 15:42:00 2013 16:15:00 DIS Inpatient MEGHA PANDA MD [facility] ICU CHEST AND SHOULDER PAIN [id number] 11/01/2014 14:09:00 2013 23:59:59 CLS Outpatient ERVIN OSBORNE MD [facility] RAD LEFT RENAL CYST [id number] 10/28/2014 14:49:00 2013 23:59:59 CLS Outpatient RAVEN LEO APRN [facility] RAD SOB,BLE PAIN [id number] 10/14/2014 12:15:00 2013 23:59:59 CLS Outpatient MEGHA PANDA MD [facility] RAD COUGH [id number] 07/18/2014 12:07:00 2013 23:59:59 CLS Outpatient [id number] 06/03/2014 21:01:00 2013 07:38:00 DIS Outpatient CORBY SULTANA MD [facility] SLEEP MAEDLYN [id number] 06/01/2014 15:12:00 2013 23:59:59 CLS Outpatient FAITH TURK [facility] RAD SCREENING [id number] 05/13/2014 13:29:00 2013 23:59:59 CLS Outpatient FAITH TURK [facility] ONC [id number] 05/04/2014 13:59:00 2013 23:59:59 CLS Outpatient ERVIN OSBORNE MD [facility] RAD LEFT RENAL CYST,RAML [id number] 12/16/2013 07:13:00 2013 10:35:00 DIS Outpatient ARI GASTELUM MD [facility] SDC DYSPHAGIA [id number] 12/09/2013 07:36:00 2013 23:59:59 CLS Outpatient ARI GASTELUM MD [facility] PREOP DYSPHAGIA [id number] 12/03/2013 13:16:00 2013 23:59:59 CLS Outpatient JOSELUIS BORGES [facility] RAD SIX MONTH FOLLOW-UP [id number] 11/04/2013 14:02:00 2012 23:59:59 CLS Outpatient ERVIN OSBORNE MD [facility] RAD LT RENAL CYST [id number] 06/01/2013 14:05:00 2012 23:59:59 CLS Outpatient FAITH TURK [facility] RAD FOLLOW-UP,HX CA BREAST [id number] 04/28/2013 13:07:00 2012 23:59:59 CLS Outpatient ERVIN OSBORNE MD [facility] RAD RENAL MASSES [id number] 03/23/2013 14:02:00 2012 23:59:59 CLS Outpatient MEGHA PANDA MD [facility] LAB [id number] 03/23/2013 13:33:00 2012 23:59:59 CLS Outpatient FAITH TURK [facility] ONC [id number] 05/09/2017 15:12:00 PEN Preadmit FAITH TURK [facility] RAD SCREENING Z12.31 [id number] 05/09/2017 12:00:00 ACT Outpatient FAITH TURK [facility] ONC [id number] 05/09/2017 10:38:00 PEN Preadmit FAITH TURK [facility] ONC [id number] 04/23/2017 14:02:00 ACT Outpatient ERVIN OSBORNE MD [facility] RAD RT SM,LT RENAL CYST [id number] 04/12/2017 08:15:00 ACT Outpatient AGATHA ESPINAL CAMPAIGN ANALYST [facility] RAD ABDOMINAL/PELVIC PAIN [id number] 03/28/2017 10:22:00 ACT Outpatient FRANCK LARSON DPM [facility] RAD DVT [id number] 02/06/2017 11:50:00 ACT Outpatient SHEELA BANUELOS MD [facility] CARD AF,CHEST PAIN,HTN,HLP [id number] 08/14/2016 07:46:00 ACT Outpatient JOSELUIS BORGES CAMPAIGN ANALYST [facility] RAD ABNORMAL SCREENING MAMMO [id number] 08/07/2016 10:57:00 ACT Outpatient JOSELUIS BORGES [facility] RAD SCREENING,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 [id number] 05/22/2016 11:13:00 ACT Outpatient DANY ESPINAL DO [facility] RAD F02.81 [id number] 05/10/2016 12:33:00 ACT Outpatient JOSELUIS BORGES [facility] ONC [id number] 04/17/2016 09:14:00 Document Registration [id number] 03/01/2016 12:00:00 ACT Outpatient DANY ESPINAL DO [facility] POSSIBLE UTI [id number] 02/16/2016 14:52:00 ACT Outpatient DANY ESPINAL DO [facility] UTI, HYPOTHYROIDISM [id number] 01/28/2016 18:13:00 ACT Outpatient AGATHA ESPINAL [facility] LAB UTI [id number] 11/15/2015 10:07:00 ACT Outpatient MEGHA PANDA MD [facility] GLC CELLULITIS, VANCO IV [id number] 09/06/2015 17:01:00 Document Registration [id number] 11/29/2014 09:14:00 Document Registration [id number] 01/01/2013 18:45:00 Document Registration [id number] 12/28/2012 17:05:00 Document Registration [id number] 12/01/2012 13:35:00 Document Registration [id number] 11/28/2012 12:10:00 Document Registration [id number] 09/16/2012 19:40:00 Document Registration [id number] 05/13/2012 05:38:00 Document Registration [id number] 05/08/2012 11:44:00 Document Registration [id number] 05/06/2012 12:30:00 Document Registration [id number] 04/29/2012 07:26:00 Document Registration [id number] 04/08/2012 13:03:00 Document Registration [id number] 03/26/2012 15:10:00 Document Registration [id number] 03/24/2012 10:29:00 Document Registration [id number] 12/17/2011 07:36:00 Document Registration [id number] 09/21/2011 21:48:00 Document Registration [id number] 09/06/2011 05:38:00 Document Registration [id number] 09/04/2011 09:37:00 Document Registration [id number] 07/18/2011 08:49:00 Document Registration [id number] 07/11/2011 06:30:00 Document Registration [id number] 04/30/2011 18:01:00 Document Registration [id number] 04/25/2011 13:30:00 Document Registration [id number] 03/12/2011 13:01:00 Document Registration [id number] 03/02/2011 13:14:00 Document Registration [id number] 02/19/2011 12:40:00 Document Registration [id number] 07/07/2010 15:10:00 Document Registration [id number] 04/07/2010 16:16:00 Document Registration [id number] 03/17/2010 15:02:00 Document Registration [id number] 03/07/2010 14:00:00 Document Registration [id number] 03/02/2010 12:39:00 Document Registration [id number] 03/02/2010 12:35:00 Document Registration [id number] 02/23/2010 09:02:00 Document Registration [id number] 02/13/2010 14:39:00 Document Registration [id number] 12/07/2009 10:08:00 Document Registration [id number] 12/07/2009 10:07:00 Document Registration [id number] 10/07/2009 12:26:00 Document Registration [id number] 09/28/2009 10:28:00 Document Registration [id number] 09/21/2009 11:39:00 Document Registration [id number] 08/30/2009 00:00:00 Document Registration [id number] 08/23/2009 13:57:00 Document Registration [id number] 08/17/2009 13:00:00 Document Registration [id number] 08/12/2009 12:31:00 Document Registration
--- NOTE | 2017-06-06 12:03 | PROCEDURE REPORT ---
PROCEDURE PHYSICIAN: YANG VALERA ADDENDUM - FOLLOW-UP TO PATHOLOGY RESULTS: This is a follow-up on histopathology results on Agata Pringle. She had 2 polyps removed. They both were tubular adenomas and small in size around 5 mm. The tubular adenoma from the hepatic flexure, however did have some high grade dysplasia noted in the center only. Considering this and it's small size, would advocate repeat surveillance colonoscopy in one year. I thank you for the referral of this pleasant lady. Sincerely, Job ID: [id number] Dictated Date: 06/04/2017 11:10:53 Scientific Investigator Date: 06/06/2017 11:57:22 / ruperto OLIVA
--- NOTE | 2017-06-28 11:01 | HISTORY AND PHYSICAL ---
DATE OF SERVICE: COLONOSCOPY HISTORY AND PHYSICAL REQUESTING PHYSICIAN: Dr. Christine. INDICATION FOR PROCEDURE: Rectal bleeding. HISTORY OF PRESENT ILLNESS: The patient is a pleasant 71-year-old white female who reports intermittent bright red blood per rectum over the past 2 weeks. She reports no past history of known hemorrhoids and denies any association with pain or with constipation. Her last colonoscopy was in [address] Rodrigez. It was incomplete as there was failure to visualize the right colon apparently due to technical difficulty. Part of it was a bowel prep issue for which she was given Colyte and reported that it did not work well for her despite reportedly compliant with instructions. She did undergo barium enema evaluation that was also reportedly a difficult procedure in reading radiologist report. A few diverticulum were noted with no other abnormalities under apparent suboptimal viewing. She denies any change in her usual abdominal pain. It is in the right lower quadrant and over the previous herpes zoster involved dermatome. She reports that her weight has been stable. PAST MEDICAL HISTORY: Rather extensive. She does have nonobstructive coronary disease, history of hypertension, atrial fibrillation and type 2 diabetes mellitus. She also reports history of Meniere's disease and obstructive sleep apnea. She has a past history of right mastectomy for breast cancer in 1994. She had a cholecystectomy in 1987, hysterectomy in 1986, splenectomy in 1962 and tonsillectomy in 1958. She has had several DVTs and superficial thrombophlebitis and has been on chronic anticoagulant therapy apparently since in 1995. As of late, she has been on Xarelto. SOCIAL HISTORY: She has been in the assisted on at least 1 occasion, but is currently living at home with her , with no reported past significant smoking or drinking history. MEDICATIONS ON ADMISSION: Include buspirone 15 mg 3 times daily, carvedilol 12.5 mg b.i.d., digoxin 0.125 mg daily, Pepcid 20 mg p.o. daily, furosemide 40 mg daily, hydrocodone 7.5/325 mg q.6 hours p.r.n. mag oxide 400 mg daily, metformin 500 mg daily, Lyrica 75 mg t.i.d., oxcarbazepine 300 mg for mood stabilization and underlying bipolar disorder mentioned above, potassium 10 mEq daily, Tradjenta 5 mg daily and Xarelto 20 mg daily. She is on 15 units of Levemir each morning with NovoLog for sliding scale. PHYSICAL EXAMINATION: GENERAL: Reveals a pleasant, articulate white female who appears to be in no acute distress. SKIN: Evaluation reveals no evidence for pallor. VITAL SIGNS: Blood pressure was 140/62, heart rate 72 and regular. HEENT: Oral cavity reveals a Mallampati class II configuration. NECK: Revealed no JVD, adenopathy or bruits. CARDIOVASCULAR: Reveals a regular rate and rhythm with a 2/6 systolic ejection murmur heard best over the left lower sternal border and second intercostal space without significant pulsus parvus or tardus being noted. No S3 or S4 were appreciated. ABDOMEN: Soft, supple. There is hypesthesia over the right lower quadrant of the abdomen. No mass or organomegaly is noted. She does have some mild epigastric discomfort to palpation without rebound or guarding. No bruits are appreciated. EXTREMITIES: Reveal trace edema without cyanosis or clubbing. ASSESSMENT: The patient was set up for diagnostic colonoscopy for evaluation of intermittent bright red blood per rectum on the 05/31/2017 as she was offered this week, but she was going to be gone as I recall. She will need to hold Xarelto for 48 hours prior and will continue her other medications unchanged except for the morning of her procedure. Prep instructions with the Suprep kit were given and a sample of the kit was given as well. Questions were answered. With review of her extensive records and evaluation today, a little over 45 minutes of my direct care was spent, another 15 minutes of staff time. Job ID: [id number] DocumentID: [id number] Dictated Date: 05/15/2017 14:58:25 Stamp Redemption Clerk Date: 05/15/2017 15:44:33 Dictated By: YANG VALERA MD
[2017-09-04] MEDS ORDERED: HYDR-3820 PO (12:24)
== END 2017-05-31 10:05 | disposition home or self-care (01) ==
LOC: ENDO 06:27
PROVIDERS: ATTEND Internal Medicine
DX: K62.5 Hemorrhage of anus and rectum; I10 Essential (primary) hypertension; I48.0 Paroxysmal atrial fibrillation; E11.9 Type 2 diabetes mellitus without complications; K57.30 Diverticulosis of large intestine without perforation or abscess without bleeding; Z79.899 Other long term (current) drug therapy; D12.3 Benign neoplasm of transverse colon
CPT/HCPCS: 82962; 88305

== ENCOUNTER → 2017-07-25 | Outpatient (CLI) | payer MEDICARE, MEDICAID ==
--- NOTE | 2017-07-25 19:22 | Diagnostic Imaging Report ---
PROCEDURE: MRI lumbar spine. TECHNIQUE: Multiplanar, multisequence MRI of the lumbar spine was performed without contrast. INDICATION: Pain radiating into the right leg. FINDINGS: There is mild left convexity curvature of the lumbar spine. Vertebral body heights are maintained. There is diffuse desiccation of lumbar discs with moderate disc space narrowing at L4-5. There is associated degenerative disc bulging and endplate spurring at L4-5 which flattens the ventral thecal sac. This, in association with degenerative facet arthropathy, results in mild trefoil type spinal stenosis at this level. There is also mild disc bulging eccentric toward the left at L3-4 without significant spinal or neural foraminal stenosis. No other focal disc herniation is identified. There is increased T2 signal within the superior endplate of T12 to the right of midline. Conus medullaris is unremarkable at the T12-L1 level. IMPRESSION: Degenerative disc and facet disease at L4-5 results in mild trefoil type spinal stenosis. Abnormal increased T2 signal to the right of midline at the T12 superior endplate is noted. There is mild degenerative spurring at this level, as well. The possibility of marrow edema or contusion is not excluded however no definite fracture or volume loss is seen. Correlation at the site of pain would be of use. Dictated by: Dictated on workstation # [id number]
== END ==
LOC: RAD 17:31
PROVIDERS: ATTEND Orthopaedic Surgery
DX: M51.36 Other intervertebral disc degeneration, lumbar region (principal)
CPT/HCPCS: 72148

== ENCOUNTER → 2017-08-09 | Outpatient (CLI) | payer MEDICARE, MEDICAID ==
--- NOTE | 2017-08-09 11:39 | Diagnostic Imaging Report ---
Left breast diagnostic mammogram with tomography. CAD is utilized. COMPARISON: 08/07/2016. INDICATION: Prominent lymph nodes in the left axilla seen on exam from 08/07/2016. Breast cancer status post right mastectomy. FINDINGS: Scattered fibroglandular densities are seen. There are scattered benign-appearing calcifications noted. No mass, architectural distortion, or suspicious cluster of calcifications. The previously seen left axillary lymph nodes are not present at this time. Questionable asymmetry along the upper aspect of the left breast appears to spread out between the lateral and MLO views with no definitive underlying lesion on tomography. IMPRESSION: 1. Resolution of the previously seen left axillary lymph nodes. 2. Asymmetry along the upper aspect of the left breast is favored to be summation artifact of parenchyma. Ultrasound evaluation pending. ACR BI-RADS Category 0: Incomplete. (Needs additional imaging evaluation). Result letter will be mailed to the patient. Note: At least 10% of breast cancer is not imaged by mammography. Dictated by: Dictated on workstation # [id number]
--- NOTE | 2017-08-09 19:32 | Diagnostic Imaging Report ---
Left breast ultrasound. INDICATION: Upper left breast asymmetry. FINDINGS: At 2 o'clock zone, 6 cm from the nipple there is a 4 mm cystic lesion with internal debris and no internal vascularity identified. It is uncertain if this would explain the asymmetry seen on mammography. IMPRESSION: Findings suggestive of a complicated cyst at 2 o'clock zone, 6 cm from the nipple. It is uncertain if this explains the upper left breast asymmetry. Six-month follow-up mammogram and ultrasound is recommended to ensure no adverse development. ACR BI-RADS Category 3: Probably benign findings. Dictated on workstation # [id number]
== END ==
LOC: RAD 10:23
PROVIDERS: ATTEND Internal Medicine Hematology & Oncology
DX: R92.8 Other abnormal and inconclusive findings on diagnostic imaging of breast (principal)
CPT/HCPCS: 76642

== ENCOUNTER 2017-09-04 11:43 | Day surgery (SDC) | payer MEDICARE, MEDICAID ==
[~2017-09-04] VITALS: Ht 172.7 cm; Wt 90.7 kg
--- OUTSIDE RECORDS SUMMARY | 2017-09-04 11:47 | XMS REPORT | Clinical Summary ---
Author Author [facility] Organization [facility] Address Unknown Phone Unavailable Care Team Providers Care Security Systems Integrator Name Role Phone PCP Unavailable Source Comments Some departments are not documenting in the electronic medical record. If you do not see the information that you expected, contact Release of Information in the Health Information Management department at [phone] for further assistance in locating additional records.[facility] Allergies Active Allergy Reactions Severity Noted Date Comments Codeine NAUSEA AND VOMITING 02/05/2013 Estradiol HEADACHE, NAUSEA AND 02/05/2013 VOMITING, DIZZINESS Penicillins NAUSEA AND VOMITING 02/05/2013 Sulfur NAUSEA AND VOMITING 02/05/2013 Current Medications Prescription Sig. Disp. Refills Start [...] results. -- F/U with Dr. Sethi in [place] for further urological issues (already has an [...] discomfort -- Stay on current bowel regimen Family History Medical History Relation Name Comments Cancer Other Diabetes Other Hypertension Other Relation Name Status Comments Other Social History Tobacco Use Types Packs/Day Years Used Date Former Smoker Smokeless Tobacco: Never Used Alcohol Use Drinks/Week oz/Week Comments No Sex Assigned at Date Recorded Not on file Last Filed Vital Signs Vital Sign Reading Time Taken Blood Pressure 155/72 02/05/2013 1:30 PM CDT Pulse 89 02/05/2013 1:30 PM CDT Temperature - - Respiratory Rate - - Oxygen Saturation - - Inhaled Oxygen - - Concentration Weight 107 kg (236 lb) 02/05/2013 1:30 PM CDT Height 172.7 cm (5' 8") 02/05/2013 1:30 PM CDT Body Mass Index 35.88 02/05/2013 1:30 PM CDT Plan of Treatment Health Maintenance Due Date Last Done Comments PHYSICAL (COMPREHENSIVE) 1952 EXAM PERTUSSIS VACCINE 1955 TETANUS VACCINE 1961 BREAST CANCER SCREENING 1984 COLORECTAL CANCER 1994 SCREENING SHINGLES VACCINE 2004 OSTEOPOROSIS SCREENING 2009 PREVNAR/PNEUMOVAX (#1) 2009 INFLUENZA VACCINE 08/25/2017 Results Not on filefrom Last 3 Months
[2017-09-04] MEDS ORDERED: BUP/EPI 0.5% 1:200,000 (MARCAINE) 10ML VIAL IJ ONE (12:07)
[2017-09-04] MEDS ORDERED: VANCOMYCIN 1 GM/NS 250 ML IVPB IV ONE ×2 (12:15)
[2017-09-04 12:20] VITALS: BP 167/78
[2017-09-04] MEDS ORDERED: ONDANSETRON 4 MG/2 ML (SDV) Z0FRAN ONE ×2 (12:23→13:25)
[2017-09-04] MEDS ORDERED: fentaNYL INJECTION 100 MCG/2 ML AMP ONE ×2 (12:23→12:29)
[2017-09-04] MEDS ORDERED: FAMOTIDINE 20MG/2ML IV (PEPCID) ONE (12:23)
--- NOTE | 2017-09-04 12:23 | Progress Note-Pre Operative ---
Pre-Operative Progress Note H&P Reviewed The H&P was reviewed, patient examined and no changes noted. Date Seen by Provider: Sep 04, 2017 Time Seen by Provider: 12:35 Date H&P Reviewed: Sep 04, 2017 Time H&P Reviewed: 12:22 Pre-Operative Diagnosis: Bilateral temporal headache ARVIND BOGGS MD Sep 04, 2017 12:23 pm
[2017-09-04] MEDS ORDERED: HYDR-3820 PO (12:24)
--- NOTE | 2017-09-04 12:24 | Discharge Inst-Simple/Standard ---
Discharge Inst-Standard Discharge Medications New, Converted or Re-Newed RX: RX on Chart Patient Instructions/Follow Up Plan of Care/Instructions/FU: Dressing off in 48 hours. We shall call with pathology reports. Activity as Tolerated: Yes Discharge Diet: No Restrictions ARVIND BOGGS MD Sep 04, 2017 12:24 pm
[2017-09-04] MEDS ORDERED: SEVOFLURANE (ULTANE) 15 ML INHAL SOLN ONE (12:28)
[2017-09-04] MEDS ORDERED: proPOfol 200 MG/20 ML (DIPRIVAN) VIAL IV ONE (12:28)
[2017-09-04] MEDS ORDERED: LIDOCAINE PF 2% 5 ML (XYLOCAINE) VIAL ONE (12:28)
[2017-09-04] MEDS ORDERED: MIDAZOLAM 2 MG/2 ML (VERSED) VIAL ONE (12:29)
[2017-09-04] MEDS: LACTATED RINGERS 1,000 ML IV PRN ×2 (12:30→13:34)
[2017-09-04] MEDS ORDERED: ONDANSETRON 4 MG/2 ML (SDV) Z0FRAN IV ONE (12:45)
[2017-09-04] MEDS ORDERED: fentaNYL INJECTION 100 MCG/2 ML AMP IV ONE (12:45)
[2017-09-04] MEDS ORDERED: FAMOTIDINE 20MG/2ML IV (PEPCID) IV ONE (12:45)
--- NOTE | 2017-09-04 13:51 | Operative Report ---
Operative Report Date of Procedure/Surgery Sep 04, 2017 Surgeon (s) ARVIND BOGGS MD Tube Teller (s): Not applicable Post-Operative Diagnosis Same Procedure Performed Bilateral temporal artery biopsy Description of Procedure Anesthesia Type: General Estimated blood loss (mL): Minimal Specimen(s) collected/removed segments of superficial temporal artery from each side Description of the Procedure Indication for procedure: This lady presented with classic symptoms of temporal arteritis. It was therefore felt reasonable to perform temporal artery biopsy to establish a definitive diagnosis. Informed consent was obtained after reviewing the operative details and complications postoperative hematoma and wound infection. Description of the procedure: She was placed supine on the operative table and general anesthesia induced using a laryngeal mask airway. A gram of vancomycin was administered intravenously as prophylaxis against wound infection. Both temporal regions were prepared and draped in the usual sterile manner. I began the dissection on the right side. Pre-emptive analgesia was established using 0.5 percent Marcaine with epinephrine. A 3 cm vertical incision was made anterior to the lobe and a segment of the superficial temporal artery isolated. Both ends where controlled using 3-0 silk ties and ligaclips and the segment was sent for histological examination. Hemostasis was achieved using cautery and ligaclips. The incision was then closed using 4- 0 Vicryl sutures in an interrupted, subcuticular fashion. A similar procedure was repeated on the left side. She tolerated the procedure well, was extubated in the operating room and taken to the recovery room in a stable condition. Findings of the Procedure see operative report Allergies and Home Medications Allergies Coded Allergies: Penicillins (Verified Allergy, Mild, 03/06/17) codeine (Verified Allergy, Mild, PT TAKES HYDROCODONE AT HOME, 03/06/17) nitrofurantoin (Verified Allergy, Mild, RASH, 03/06/17) ITCHING/RASH sulfur dioxide (Verified Allergy, Unknown, 03/06/17) Home Medications Buspirone HCl 15 Mg Tablet, 15 MG PO TID, (Reported) Carvedilol 12.5 Mg Tablet, 12.5 MG PO BID, (Reported) Cholecalciferol (Vitamin D3) 5,000 Unit Capsule, 5,000 UNIT PO DAILY, (Reported) Cyanocobalamin 1,000 Mcg/Ml Inj, 1,000 MCG IJ WEEK, (Reported) RECEIVES ON SATURDAYS Digoxin 125 Mcg Tablet, 0.125 MCG PO DAILY, (Reported) IF HEART RATE IS < 60 Famotidine 20 Mg Tablet, 20 MG PO DAILY, (Reported) Furosemide 40 Mg Tablet, 40 MG PO DAILY, (Reported) Hydrocodone/Acetaminophen 1 Each Tablet, 1 TAB PO Q6H PRN for PAIN, (Reported) Hydrocodone/Acetaminophen 1 Each Tablet, 1 TAB PO Q4H PRN for PAIN-MILD TO MODERATE, #20 Ref 0 Prescribed by: ARVIND BOGGS on 09/04/17 1224 Insulin Aspart 300 Units/3 Ml Solution, SC SLIDING/SCALE, (Reported) 70-140 = 0 UNITS 141-180= 2 UNITS 181-220= 4 UNITS 221-260= 6 UNITS 261-300= 8 UNITS 301-340=10 UNITS 341-380=12 UNITS 381-400=14 UNITS ABOVE [address] Insulin Detemir 100 Unit/1 Ml Insuln.pen, 10 UNITS SC DAILY, (Reported) Linagliptin 5 Mg Tablet, 5 MG PO DAILY, (Reported) Magnesium Oxide 400 Mg Tablet, 400 MG PO 1200, (Reported) Metformin HCl 500 Mg Tablet, 500 MG PO DAILY, (Reported) Oxcarbazepine 300 Mg Tablet, 300 MG PO DAILY, (Reported) Potassium Chloride 10 Meq Tablet.er, 10 MEQ PO DAILY, (Reported) ARVIND BOGGS MD Sep 04, 2017 1:51 pm
[2017-09-04] MEDS ORDERED: ONDANSETRON 4 MG/2 ML (SDV) Z0FRAN IVP PRN (14:00)
[2017-09-04] MEDS: morphine INJ 10 MG/ML 1ML (SYR OR VIAL) IVP PRN ×2 (14:09→14:25)
[2017-09-04 15:00] VITALS: BP 181/90
[2017-09-04 15:30] VITALS: BP 193/94
[2017-09-04 16:00] VITALS: BP 193/94
[2017-09-04 17:03] VITALS: BP 193/94
== END 2017-09-04 16:40 | disposition home or self-care (01) ==
LOC: SDC 11:43
PROVIDERS: ATTEND Surgery
DX: R51 Headache (principal); I10 Essential (primary) hypertension; E11.9 Type 2 diabetes mellitus without complications; E78.5 Hyperlipidemia, unspecified; I27.20 Pulmonary hypertension, unspecified; G47.33 Obstructive sleep apnea (adult) (pediatric); F31.9 Bipolar disorder, unspecified; G25.0 Essential tremor; M79.7 Fibromyalgia; Z79.4 Long term (current) use of insulin; Z79.899 Other long term (current) drug therapy
CPT/HCPCS: 82962; 87081

== ENCOUNTER 2017-09-13 19:40 | Observation (INO) | payer MEDICARE, MEDICAID ==
[~2017-09-13] VITALS: Ht 172.7 cm; Wt 91.3 kg
--- OUTSIDE RECORDS SUMMARY | 2017-09-13 19:46 | XMS REPORT | Clinical Summary ---
Author Author [facility] Organization [facility] Address Unknown Phone Unavailable Care Team Providers Care Rn Enterostomal Name Role Phone PCP Unavailable Source Comments Some departments are not documenting in the electronic medical record. If you do not see the information that you expected, contact Release of Information in the Health Information Management department at [phone] for further assistance in locating additional records.[facility] Allergies Active Allergy Reactions Severity Noted Date [...] results. -- F/U with Dr. Sethi in [place] for further urological issues (already has an [...] SCREENING 2009 PREVNAR/PNEUMOVAX (#1) 2009 INFLUENZA VACCINE 06/25/2017 Results Not on filefrom Last 3 Months
[2017-09-13] MEDS ORDERED: DOXY100C2 (19:50)
[2017-09-13] MEDS ORDERED: ONDANSETRON 4 MG/2 ML (SDV) Z0FRAN IV ONE (20:00)
[2017-09-13] MEDS ORDERED: ASPIRIN 81 MG CHEW (CHILDREN'S ASA) PO ONE (20:00)
[2017-09-13 20:04] LABS: BASOPHILS # (AUTO) 0.1 10^3/uL (0.0-0.1); BASOPHILS % (AUTO) 0 % (0-10); EOSINOPHILS # (AUTO) 0.1 10^3/uL (0.0-0.3); EOSINOPHILS % (AUTO) 1 % (0-10); LYMPHOCYTES # (AUTO) 2.4 X 10^3 (1.0-4.0); LYMPHOCYTES % (AUTO) 14 % (12-44); MEAN CORPUSCULAR HEMOGLOBIN 30 PG (25-34); MEAN CORPUSCULAR HGB CONC 33 G/DL (32-36); MEAN CORPUSCULAR VOLUME 90 FL (80-99); MEAN PLATELET VOLUME 11.7 FL (7.4-10.4); MONOCYTES # (AUTO) 1.2 X 10^3 (0.0-1.0); MONOCYTES % (AUTO) 7 % (0-12); NEUTROPHILS # (AUTO) 14.2 X 10^3 (1.8-7.8); NEUTROPHILS % (AUTO) 79 % (42-75); PLATELET COUNT 277 10^3/uL (130-400); RED BLOOD COUNT 4.74 10^6/uL (4.35-5.85); RED CELL DISTRIBUTION WIDTH 14.6 % (10.0-14.5)
[2017-09-13 20:14] LABS: INR 1.1 (0.8-1.4); PROTHROMBIN TIME PATIENT 13.8 SEC (12.2-14.7)
[2017-09-13 20:18] LABS: BAND NEUTROPHILS 1 %; BASOPHILS % (MANUAL) 1 %; EOSINOPHILS % (MANUAL) 1 %; LYMPHOCYTES % (MANUAL) 27 %; NEUTROPHILS % (MANUAL) 66 %
--- NOTE | 2017-09-13 20:18 | Diagnostic Imaging Report ---
INDICATION: Chest pain, atrial fibrillation. TECHNIQUE: Single view chest, 8:04 p.m. CORRELATION STUDY: 03/04/2017. FINDINGS: Heart size and mediastinum remain enlarged. Soft tissue fullness and density of the right robert are generally stable. No evidence for overt failure with the vasculature appearing improved on followup. Chronic type change about the lung parenchyma. No infiltrate. Chronic deformity of the right shoulder. IMPRESSION: 1. Cardiac enlargement. Vasculature is slightly prominent without evidence for overt failure and actually improved from prior study. 2. Density over the right hilum appears to be generally stable. Dictated by: Dictated on workstation # [id number]
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
[2017-09-13 20:23] LABS: ALANINE AMINOTRANSFERASE 59 U/L (0-55); ALBUMIN 3.5 GM/DL (3.2-4.5); AMYLASE 60 U/L (25-125); ANION GAP 9 MMOL/L (5-14); ASPARTATE AMINO TRANSFERASE 136 U/L (5-34); BILIRUBIN,TOTAL 0.6 MG/DL (0.1-1.0); BLOOD UREA NITROGEN 25 MG/DL (7-18); BUN/CREATININE RATIO 32; CALCIUM 9.5 MG/DL (8.5-10.1); CARBON DIOXIDE 27 MMOL/L (21-32); CHLORIDE 106 MMOL/L (98-107); CREATINE KINASE 21 U/L (29-168); CREATININE SERUM 0.79 MG/DL (0.60-1.30); GFR ESTIMATED > 60; GLUCOSE 119 MG/DL (70-105); LIPASE 73 U/L (8-78); MAGNESIUM 2.2 MG/DL (1.8-2.4); POTASSIUM 4.2 MMOL/L (3.6-5.0); SODIUM 142 MMOL/L (135-145); TOTAL PROTEIN 7.7 GM/DL (6.4-8.2)
[2017-09-13 20:29] LABS: TROPONIN I < 0.30 NG/ML (<0.30)
[2017-09-13 20:52] VITALS: BP 152/88
[2017-09-13] MEDS ORDERED: NITROGLYCERIN 0.4 MG SL TABS BTL 25'S SL PRN ×2 (21:00→22:30)
[2017-09-13] MEDS ORDERED: PANTOPRAZOLE 40 MG/10 ML (PROTONIX) VIAL IV ONE (21:00)
[2017-09-13 21:45] VITALS: BP 147/75
[2017-09-13 22:00] VITALS: BP 153/81
[2017-09-13] MEDS ORDERED: morphine INJ 4 MG/ML 1 ML (VIAL/SYRINGE) IV PRN (22:30)
[2017-09-13 23:00] VITALS: BP 159/92
[2017-09-13] MEDS ORDERED: TROS20TA3 PO (23:31)
[2017-09-13] MEDS ORDERED: CLON0.1T PO (23:31)
[2017-09-13] MEDS ORDERED: FAMO20TA3 PO (23:31)
[2017-09-13] MEDS ORDERED: SUCR1TAB PO (23:31)
[2017-09-13] MEDS ORDERED: LISI40TA PO (23:31)
[2017-09-14] VITALS (7 sets, daily range): BP systolic 150–183; BP diastolic 72–89
[2017-09-14 02:31] LABS: BASOPHILS % (AUTO) 0 % (0-10); EOSINOPHILS # (AUTO) 0.1 10^3/uL (0.0-0.3); EOSINOPHILS % (AUTO) 1 % (0-10); LYMPHOCYTES # (AUTO) 2.3 X 10^3 (1.0-4.0); LYMPHOCYTES % (AUTO) 12 % (12-44); MEAN CORPUSCULAR HEMOGLOBIN 30 PG (25-34); MEAN CORPUSCULAR HGB CONC 33 G/DL (32-36); MEAN CORPUSCULAR VOLUME 90 FL (80-99); MEAN PLATELET VOLUME 11.5 FL (7.4-10.4); MONOCYTES # (AUTO) 1.2 X 10^3 (0.0-1.0); MONOCYTES % (AUTO) 6 % (0-12); NEUTROPHILS % (AUTO) 81 % (42-75); PLATELET COUNT 245 10^3/uL (130-400); RED BLOOD COUNT 4.34 10^6/uL (4.35-5.85); RED CELL DISTRIBUTION WIDTH 14.3 % (10.0-14.5); WHITE BLOOD COUNT 18.5 10^3/uL (4.3-11.0)
[2017-09-14 02:57] LABS: ALANINE AMINOTRANSFERASE 93 U/L (0-55); ALBUMIN 3.1 GM/DL (3.2-4.5); ANION GAP 9 MMOL/L (5-14); ASPARTATE AMINO TRANSFERASE 138 U/L (5-34); BILIRUBIN,TOTAL 0.3 MG/DL (0.1-1.0); BLOOD UREA NITROGEN 28 MG/DL (7-18); BUN/CREATININE RATIO 37; CALCIUM 9.3 MG/DL (8.5-10.1); CARBON DIOXIDE 25 MMOL/L (21-32); CHLORIDE 105 MMOL/L (98-107); CHOLESTEROL 142 MG/DL (< 200); CREATININE SERUM 0.75 MG/DL (0.60-1.30); DIRECT LDL 69 MG/DL (1-129); GFR ESTIMATED > 60; GLUCOSE 196 MG/DL (70-105); POTASSIUM 4.1 MMOL/L (3.6-5.0); SODIUM 139 MMOL/L (135-145); TOTAL PROTEIN 6.7 GM/DL (6.4-8.2); TRIGLYCERIDES 51 MG/DL (<150); VLDL CHOLESTEROL 10 MG/DL (5-40)
[2017-09-14 03:06] LABS: MYOGLOBIN SERUM 32.9 NG/ML (10.0-92.0)
[2017-09-14] MEDS: inSUlin (REGULAR) HUMAN 1 UNIT/0.01 ML (CHARGE PER UNIT) SC SCH ×2 (06:55→14:13)
[2017-09-14] MEDS ORDERED: INFLUENZA TRIvalent 2017-2018 0.5 ML/45 MCG SYR IM ONE (07:30)
[2017-09-14] MEDS ORDERED: CARVEDILOL 12.5 MG (COREG) TABLET PO SCH (09:00)
[2017-09-14] MEDS ORDERED: ASPIRIN E.C. 325 MG (ECOTRIN) TABLET PO SCH (09:00)
[2017-09-14] MEDS ORDERED: FUROSEMIDE 40 MG (LASIX) TAB PO SCH (09:00)
[2017-09-14] MEDS ORDERED: DIGOXIN 0.125 MG (LANOXIN) TAB PO SCH (09:00)
--- NOTE | 2017-09-14 11:16 | Consultation-Cardiology ---
HPI-Cardiology Cardiology Consultation: Date of Consultation 09/14/17 Time Seen by Provider: 10:50 Date of Admission Attending Physician Lb Christine DO Admitting Physician Lb Christine DO Consulting Physician SAVANNAH BLACKWELL MD, MA, FACP, FACC, FSCAI, CCDS HPI: Chief Complaint: Chest discomfort 71 yo woman with chest discomfort on 09/13/17: lower transthoracic, mod to severe, sharp, squeezing, no radiation, no associated symptoms other than a feeling of palpitations, no relation to exertion, lasted an hour, no aggravating or relieving factors. Has experienced symptoms like this before, last was in February 2017 and he was seen by Dr Pavon, her voucher clerk, at this hosp at that time She does not report syncope or presyncope. Has a h/o intermittent leg swelling Review of Systems-Cardiology Review of Systems Constitutional: tiredness, weight loss (Has had 130 lb wgt loss in the last one year), No weight gain Eyes: No vision change Ears/Nose/Throat: No ear discharge, No nasal drainage, No recent hearing loss, No ulcerations Respiratory: As described under HPI Cardiovascular: As described under HPI Gastrointestinal: No constipation, No diarrhea, No nausea, No vomiting Genitourinary: No dysuria, No hematuria, No urine frequency changes Musculoskeletal: back pain, joint pain (chronic) Skin: No rash, No ulcerations Psychiatric/Neurological: syncope (H/o syncope several years ago that she states was worked up Dr Pavon and no specific reason found; no recurrence since) , No seizure, No focal weakness Hematologic: No bleeding abnormalities JBC-[id number]-Wgdpla Hx Patient Social History Alcohol Use: Denies Use Recreational Drug Use: No Smoking Status: Never a Smoker 2nd Hand Smoke Exposure: No Recent Foreign Travel: No Recent Infectious Disease Expo: No Hospitalization with Isolation: Denies Physical Abuse Screen: No Sexual Abuse: No Immunizations Up To Date Tetanus Booster (TDap): Unknown Date of Pneumonia Vaccine: Sep 05, 2012 Date of Influenza Vaccine: Sep 03, 2016 Past Medical History PMH As described under Assessment. Family Medical History Family History: BULBAR POLIO G8 BROTHER Diabetes mellitus G8 BROTHER UNCLE FH: cancer G8 BROTHER FH: kidney cancer G8 SISTER Allergies and Home Medications Allergies Coded Allergies: Penicillins (Verified Allergy, Mild, 03/06/17) codeine (Verified Allergy, Mild, PT TAKES HYDROCODONE AT HOME, 03/06/17) nitrofurantoin (Verified Allergy, Mild, RASH, 03/06/17) ITCHING/RASH sulfur dioxide (Verified Allergy, Unknown, 03/06/17) Home Medications Buspirone HCl 15 Mg Tablet, 15 MG PO TID, (Reported) Carvedilol 12.5 Mg Tablet, 12.5 MG PO BID, (Reported) Cholecalciferol (Vitamin D3) 5,000 Unit Capsule, 5,000 UNIT PO DAILY, (Reported) Clonidine HCl 0.1 Mg Tablet, 0.1 MG PO DAILY, (Reported) Cyanocobalamin 1,000 Mcg/Ml Inj, 1,000 MCG IJ WEEK, (Reported) RECEIVES ON SATURDAYS Digoxin 125 Mcg Tablet, 0.125 MCG PO DAILY, (Reported) IF HEART RATE IS < 60 Doxycycline Hyclate 100 Mg Capsule, (Reported) Famotidine 20 Mg Tablet, 20 MG PO DAILY, (Reported) Furosemide 40 Mg Tablet, 40 MG PO DAILY, (Reported) Hydrocodone/Acetaminophen 1 Each Tablet, 1 TAB PO Q6H PRN for PAIN, (Reported) Insulin Aspart 300 Units/3 Ml Solution, SC SLIDING/SCALE, (Reported) 70-140 = 0 UNITS 141-180= 2 UNITS 181-220= 4 UNITS 221-260= 6 UNITS 261-300= 8 UNITS 301-340=10 UNITS 341-380=12 UNITS 381-400=14 UNITS ABOVE 4000 CALL Insulin Detemir 100 Unit/1 Ml Insuln.pen, 10 UNITS SC DAILY, (Reported) Linagliptin 5 Mg Tablet, 5 MG PO DAILY, (Reported) Lisinopril 40 Mg Tablet, 40 MG PO DAILY, (Reported) Magnesium Oxide 400 Mg Tablet, 400 MG PO 1200, (Reported) Metformin HCl 500 Mg Tablet, 500 MG PO DAILY, (Reported) Oxcarbazepine 300 Mg Tablet, 300 MG PO DAILY, (Reported) Potassium Chloride 10 Meq Tablet.er, 10 MEQ PO DAILY, (Reported) Sucralfate 1 Gm Tablet, 1 GM PO AC, (Reported) Trospium Chloride 20 Mg Tablet, 20 MG PO DAILY, (Reported) Physical Exam-Cardiology Physical Exam Vital Signs/I&O Vital Sign - Last 12Hours 09/14/17 09/14/17 09/14/17 09/14/17 00:00 00:00 00:00 01:00 Temp 97.0 Pulse 75 70 B/P (MAP) 158/75 150/83 O2 Delivery Room Air Room Air Room Air 09/14/17 09/14/17 09/14/17 09/14/17 01:00 02:00 03:00 04:00 Pulse 59 67 65 B/P (MAP) 151/73 158/72 O2 Delivery Room Air Room Air Room Air 09/14/17 09/14/17 09/14/17 09/14/17 04:00 04:00 07:00 08:00 Temp 98.0 98.2 Pulse 78 63 76 Resp 18 B/P (MAP) 160/79 183/89 O2 Delivery Room Air Room Air Capillary Refill : Less Than 3 Seconds Constitutional: AAO x 3, well-developed, well-nourished HEENT: PERRL, hearing is well preserved, xanthelasmas are seen Neck: carotid pulses are 2 + bilaterally, with good upstrokes Respiratory: No accessory muscle use, lungs clear to percussion, lungs clear to auscultation Cardiovascular: irregularly irregular, S1 and S2, systolic murmur (2/6 SABRINA at card base) Gastrointestinal: No tender, soft, No guarding, No rebound, audible bowel sounds Extremities: No clubbing, No cyanosis, No significant edema Neurologic/Psychiatric: oriented x 3, grossly intact, power is 5/5 both on sides Skin: No rash on exposed areas, No ulcerations on exposed areas Data Review Labs Laboratory Tests 09/13/17 19:50: White Blood Count 18.0H, Red Blood Count 4.74, Hemoglobin 14.0, Hematocrit 43, Mean Corpuscular Volume 90, Mean Corpuscular Hemoglobin 30, Mean Corpuscular Hemoglobin Concent 33, Red Cell Distribution Width 14.6H, Platelet Count 277, Mean Platelet Volume 11.7H, Neutrophils (%) (Auto) 79H, Lymphocytes (%) (Auto) 14, Monocytes (%) (Auto) 7, Eosinophils (%) (Auto) 1, Basophils (%) (Auto) 0, Neutrophils # (Auto) 14.2H, Lymphocytes # (Auto) 2.4, Monocytes # (Auto) 1.2H, Eosinophils # (Auto) 0.1, Basophils # (Auto) 0.1, Neutrophils % (Manual) 66, Lymphocytes % (Manual) 27, Monocytes % (Manual) 3, Eosinophils % (Manual) 1, Basophils % (Manual) 1, Band Neutrophils 1, Blood Morphology Comment NORMAL, Prothrombin Time 13.8, INR Comment 1.1, Activated Partial Thromboplast Time 27, Sodium Level 142, Potassium Level 4.2, Chloride Level 106, Carbon Dioxide Level 27, Anion Gap 9, Blood Urea Nitrogen 25H, Creatinine 0.79, Estimat Glomerular Filtration Rate > 60, BUN/Creatinine Ratio 32, Glucose Level 119H, Calcium Level 9.5, Magnesium Level 2.2, Total Bilirubin 0.6, Aspartate Amino Transf (AST /SGOT) 136H, Alanine Aminotransferase (ALT/SGPT) 59H, Alkaline Phosphatase 64, Total Creatine Kinase 21L, Creatine Kinase MB 0.8, Troponin I < 0.30, B-Type Natriuretic Peptide 131.2H, Total Protein 7.7, Albumin 3.5, Amylase Level 60, Lipase 73, Digoxin Level < 0.30L 09/14/17 02:21: White Blood Count 18.5H, Red Blood Count 4.34L, Hemoglobin 12.9, Hematocrit 39, Mean Corpuscular Volume 90, Mean Corpuscular Hemoglobin 30, Mean Corpuscular Hemoglobin Concent 33, Red Cell Distribution Width 14.3, Platelet Count 245, Mean Platelet Volume 11.5H, Neutrophils (%) (Auto) 81H, Lymphocytes (%) (Auto) 12, Monocytes (%) (Auto) 6, Eosinophils (%) (Auto) 1, Basophils (%) (Auto) 0, Neutrophils # (Auto) 15.0H, Lymphocytes # (Auto) 2.3, Monocytes # (Auto) 1.2H, Eosinophils # (Auto) 0.1, Basophils # (Auto) 0.0, Sodium Level 139, Potassium Level 4.1, Chloride Level 105, Carbon Dioxide Level 25, Anion Gap 9, Blood Urea Nitrogen 28H, Creatinine 0.75, Estimat Glomerular Filtration Rate > 60, BUN/ Creatinine Ratio 37, Glucose Level 196H, Calcium Level 9.3, Total Bilirubin 0.3 , Aspartate Amino Transf (AST/SGOT) 138H, Alanine Aminotransferase (ALT/SGPT) 93H, Alkaline Phosphatase 66, Troponin I < 0.30, Total Protein 6.7, Albumin 3.1L , Myoglobin 32.9, Triglycerides Level 51, Cholesterol Level 142, LDL Cholesterol Direct 69, VLDL Cholesterol 10, HDL Cholesterol 62H 09/14/17 08:05: Troponin I < 0.30 A/P-Cardiology Assessment/Admission Diagnosis Chest discomfort w/o any evidence of ACS Mild CAD on card caths of 2010 and 2013 Relatively remote syncope for which she has undergone a w/u with Dr Pavon and specific cause found. Patient underwent cardiac catheterization in 2013 revealing nonobstructive disease. Tilt table test negative, 2-D echocardiogram revealed normal EF. No recent episodes Paroxysmal atrial fibrillation-maintained on digoxin, Coreg, Xarelto Patent hawkins ovale, 1.1 cm with [id number] shunt per 2-D echocardiogram 2014 Pulmonary hypertension-pulmonary artery pressure 50 mmHg per 2-D echocardiogram January 2017. Possibly due to COPD. Monitored by Dr Pavon Chronic DVT to lower extremity-no changes recommended at this time, maintained on Xarelto. Hypertension, poorly controlled Hyperlipidemia, managed by Dr Pavon Mild bilateral carotid stenosis, last ultrasound was done in June 2016 H/o mild to moderate mitral regurgitation and mild tricuspid regurgitation Obesity, BMI currently 30. Reports 130 lbs wgt loss in [id number]. This is being managed by Dr Christine, her pcp Essential tremor, chronic Diabetes mellitus, managed by Dr. Romero. History of renal cysts, has been followed by Dr. Sethi. History of breast cancer, followed and managed by Dr. Fernández. Bipolar disorder Mnires disease H/o anxiety and depression, currently controlled Discussion and Recomendations * Continue current cardiac regimen of bb, FER-inhib, clonidine, dig, rivaroxaban that Dr Pavon has her maintained on * Add low dose ASA, given h/o mild CAD * I reviewed her previous records, including Dr Pavon's office notes * I had an extensive discussion with her and her family and answered CV related questions * I have advised f/u with Dr Pavon next week * I have advised return to ER in case or recurrence of symptoms Clinical Quality Measures AMI/AHF: ASA po Prior to arrival: No DVT/VTE Risk/Contraindication: Risk Factor Score Per Nursin RFS Level Per Nursing on Admit: 3=High SAVANNAH BLACKWELL MD FACP FAC CCDS Sep 14, 2017 11:16
[2017-09-14] MEDS ORDERED: HYDROcodone/APAP 7.5 MG/325 MG (LORTAB, LORCET PLUS) TABLET PO PRN (12:00)
[2017-09-14] MEDS ORDERED: MAGNESIUM OXIDE (MAG-OX)400 MG TAB PO SCH (12:00)
[2017-09-14] MEDS ORDERED: cloNIDine 0.1 MG (CATAPRES) TAB PO NR (12:05)
[2017-09-14] MEDS ORDERED: lisINopril 20 MG (ZESTRIL) TAB PO NR (12:09)
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
[2017-09-14] MEDS ORDERED: busPIRone 15 MG (BUSPAR) TABLET PO SCH (13:00)
[2017-09-14] MEDS ORDERED: SUCRALFATE 1 GM (CARAFATE) TAB PO SCH (16:00)
[2017-09-14] MEDS ORDERED: inSUlin DETERMIR 1 UNIT/0.01 ML (LEVEMIR) CHARGE PER UNIT SQ SCH (21:00)
[2017-09-14] MEDS ORDERED: cloNIDine 0.1 MG (CATAPRES) TAB PO SCH (21:00)
[2017-09-15] MEDS ORDERED: NON-FORMULARY MEDICATION 1 EA EA (Lisinopril 40 MG) PO SCH (09:00)
[2017-09-15] MEDS ORDERED: lisINopril 20 MG (ZESTRIL) TAB PO SCH (09:00)
[2017-09-15] MEDS ORDERED: LINAGLIPTIN (TRADJENTA) 5 MG TABLET PO SCH (09:00)
[2017-09-15] MEDS ORDERED: OXcarbazepine (TRILEPTAL) 300 MG TAB PO SCH (09:00)
[2017-09-15] MEDS ORDERED: cloNIDine 0.1 MG (CATAPRES) TAB PO SCH (09:00)
[2017-09-15] MEDS ORDERED: FAMOTIDINE 20 MG (PEPCID) TABLET PO SCH (09:00)
[2017-09-15] MEDS ORDERED: metFORMIN 500 MG (GLUCOPHAGE) TAB PO SCH (09:00)
[2017-09-15] MEDS ORDERED: KCL 10 MEQ TAB (MICRO K) PO SCH (09:00)
[2017-09-15] MEDS ORDERED: TROSPIUM 20 MG (SANCTURA) TAB PO SCH (09:00)
== END 2017-09-14 11:53 | disposition home or self-care (01) ==
LOC: EDUNIT# 19:40 → ER 19:41 → ICU 21:00 → UNDOADMOB 21:00 → ICU 21:45 → UNDODISOB 09-14 15:45
PROVIDERS: ADMIT Internal Medicine; ATTEND Internal Medicine
DX: R07.9 Chest pain, unspecified (principal); N39.0 Urinary tract infection, site not specified; I51.7 Cardiomegaly; I25.10 Atherosclerotic heart disease of native coronary artery without angina pectoris; J44.9 Chronic obstructive pulmonary disease, unspecified; I48.2 Chronic atrial fibrillation; E78.5 Hyperlipidemia, unspecified; E11.9 Type 2 diabetes mellitus without complications; I27.20 Pulmonary hypertension, unspecified; K59.00 Constipation, unspecified; E66.9 Obesity, unspecified; Z68.30 Body mass index [BMI] 30.0-30.9, adult; D72.829 Elevated white blood cell count, unspecified; F31.9 Bipolar disorder, unspecified; Z79.4 Long term (current) use of insulin; Z79.01 Long term (current) use of anticoagulants; Z79.899 Other long term (current) drug therapy; Z90.81 Acquired absence of spleen; Z90.11 Acquired absence of right breast and nipple; Z85.3 Personal history of malignant neoplasm of breast; Z86.718 Personal history of other venous thrombosis and embolism
CPT/HCPCS: 36415; 71010; 80053; 80061; 80162; 82150; 82550; 82553; 82962; 83690; 83735; 83874; 83880; 84484; 85007; 85025; 85027; 85610; 85730; 93005; 93041; 96374; 96375

== ENCOUNTER → 2018-02-10 | Outpatient (CLI) | payer MEDICARE, MEDICAID ==
[~2018-02-10] MED LIST changes: +ACHD5005 PO; +DOXY100C2; +FAMO20TA3 PO; +HYDR-34 PO; -HYDR-3812 PO; -HYDR-3816 PO; +VANC1PLA12 IV; -VANC1PLA6 IV
--- NOTE | 2018-02-10 14:07 | Diagnostic Imaging Report ---
INDICATION: Six-month followup of left breast density. COMPARISON: 08/09/2017, 08/07/2016. TECHNIQUE: Digital diagnostic mammography was performed of the left breast with a Computer Aided Detection (CAD) system. FINDINGS: Moderate parenchymal density is noted in the left breast. The area of asymmetry in the upper outer left breast appears stable. No new mass or malignant appearing microcalcifications are seen. There are benign calcifications. The left axilla is unremarkable. IMPRESSION: Stable left mammogram. The patient will undergo left breast ultrasound today to further evaluate the previously described complex left breast cyst at the 2 o'clock location. ACR BI-RADS Category 0: Incomplete. (Needs additional imaging evaluation). Result letter will be mailed to the patient. Note: At least 10% of breast cancer is not imaged by mammography. Dictated by: Dictated on workstation # [id number]
--- NOTE | 2018-02-10 14:10 | Diagnostic Imaging Report ---
INDICATION: Six-month followup of left breast cyst. COMPARISON: Correlation is made with the prior left breast ultrasound from 08/09/2017 as well as a diagnostic mammogram performed earlier this same day. FINDINGS: Sonographic interrogation of the 2 o'clock location of the left breast was performed. There is a small cyst at this location 4 cm from the nipple measuring 4 mm x 4 mm x 3 mm. This is similar in size and appearance to the prior exam. There appears to be minimal internal debris. No internal vascularity is present. No new mass is identified. IMPRESSION: Stable when compared with the prior examination of 6 months earlier. Followup mammogram and left breast ultrasound in 6 months would be recommended to show continued stability. ACR BI-RADS Category 3: Probably benign findings. Dictated by: Dictated on workstation # [id number]
== END ==
LOC: RAD 12:48
PROVIDERS: ATTEND Nurse Practitioner Adult Health
DX: C50.911 Malignant neoplasm of unspecified site of right female breast (principal); N60.02 Solitary cyst of left breast
CPT/HCPCS: 76642

== ENCOUNTER 2018-03-08 09:24 | Emergency (ER) | payer MEDICARE, MEDICAID ==
[~2018-03-08] VITALS: Ht 175.3 cm; Wt 90.7 kg
[~2018-03-08 09:24] MED LIST changes: -METF1000 PO; +METF10002 PO; -METF500T4 PO; +METF500T5 PO; -PROC10TA PO; +PROC10TA10 PO; -RANI150T15 PO; +RANI150T46 PO; -SENN-1 PO; +SENN-145 PO
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
[2018-03-08] MEDS ORDERED: LIDOCAINE UROJET 2% GEL 10 ML PKG TOP ONE (10:45)
[2018-03-08 11:00] LABS: BASOPHILS % (AUTO) 0 % (0-10); EOSINOPHILS # (AUTO) 0.2 10^3/uL (0.0-0.3); EOSINOPHILS % (AUTO) 2 % (0-10); HEMATOCRIT 38 % (35-52); HEMOGLOBIN 12.5 G/DL (11.5-16.0); LYMPHOCYTES # (AUTO) 2.3 X 10^3 (1.0-4.0); LYMPHOCYTES % (AUTO) 18 % (12-44); MEAN CORPUSCULAR HEMOGLOBIN 30 PG (25-34); MEAN CORPUSCULAR HGB CONC 33 G/DL (32-36); MEAN CORPUSCULAR VOLUME 93 FL (80-99); MEAN PLATELET VOLUME 11.9 FL (7.4-10.4); MONOCYTES # (AUTO) 0.8 X 10^3 (0.0-1.0); MONOCYTES % (AUTO) 6 % (0-12); NEUTROPHILS # (AUTO) 9.4 X 10^3 (1.8-7.8); NEUTROPHILS % (AUTO) 74 % (42-75); PLATELET COUNT 236 10^3/uL (130-400); RED BLOOD COUNT 4.12 10^6/uL (4.35-5.85); RED CELL DISTRIBUTION WIDTH 14.5 % (10.0-14.5); WHITE BLOOD COUNT 12.7 10^3/uL (4.3-11.0)
[2018-03-08 11:30] VITALS: BP 170/100
--- NOTE | 2018-03-08 12:02 | Diagnostic Imaging Report ---
EXAMINATION: Paranasal sinus radiographs, 3 views. COMPARISON: CT head, neck, and facial area and cervical spine 05/25/2015. HISTORY: 72-year-old female, trouble breathing. Difficulty with nosebleeds. FINDINGS: There is no radiographically apparent air-fluid level within the paranasal sinuses. IMPRESSION: No radiographically apparent air-fluid level to specifically suggest acute sinusitis. Dictated by: Dictated on workstation # [id number]
--- OUTSIDE RECORDS SUMMARY | 2018-03-09 09:34 | XMS REPORT | Clinical Summary ---
Author Author [facility] Organization [facility] Address Unknown Phone Unavailable Care Team Providers Care Freight Service Inspector Name Role Phone Darien Salguero MD Unavailable Source Comments Some departments are not documenting in the electronic medical record. If you do not see the information that you expected, contact Release of Information in the Health Information Management department at [phone] for further assistance in locating additional records.[facility] Allergies Active Allergy Reactions Severity Noted Date [...] results. -- F/U with Dr. Sethi in [place] for further urological issues (already has an [...] SCREENING 2009 PREVNAR/PNEUMOVAX (#1) 2009 INFLUENZA VACCINE 08/25/2018 Results Not on filefrom Last 3 Months
--- OUTSIDE RECORDS SUMMARY | 2018-03-09 09:37 | XMS REPORT ---
Author Author RAYO RIVAS Organization [facility] Address [address] [place] [address] Care Team Providers Care Quick Technician Name Role Phone RAYO RIVAS Unavailable PROBLEMS Unknown Problems ALLERGIES No Information ENCOUNTERS Encounter Location Date Diagnosis [facility] [id number] [place] [address] [id number] Dec, Dental caries K02.9 [facility] [id number] [place] [address] [phone] Dec, Dental examination Z01.20 [facility] [id number] [place] [address] [phone] Apr, Dental examination Z01.20 [facility] [id number] [place] [address] [id number] Apr, Dental examination Z01.20 [facility] [id number] [place] [address] [phone] Oct, Encounter for dental examination Z01.20 [facility] [id number] [place] [phone] Jun, IMMUNIZATIONS No Known Immunizations SOCIAL HISTORY Never Assessed REASON FOR VISIT prophy/mena PLAN OF CARE Activity Details Follow Up First Available Reason:Prophy VITAL SIGNS MEDICATIONS No Known Medications RESULTS No Results PROCEDURES Procedure Date Ordered Result Body Site Billing Notes on claim May 10, 2017 INSTRUCTIONS MEDICATIONS ADMINISTERED No Known Medications MEDICAL (GENERAL) HISTORY Type Description Date Medical History Acute CHF Medical History Personal hx of UTI Medical History Fracture of left radius Medical History Altered mental status Medical History Sepsis Medical History Dementia Medical History Bipolar Medical History diabetes Surgical History 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 Surgical History Gall Bladder removed Surgical History Spleen removed Surgical History Tonsils Surgical History 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
--- OUTSIDE RECORDS SUMMARY | 2018-03-09 09:38 | XMS REPORT ---
Author Author RUSTY BEATTY Organization [facility] Address [address] [place] [address] Phone Unavailable Care Team Providers Care Entertainment Centre Manager Name Role Phone RUSTY BEATTY Unavailable Unavailable PROBLEMS Unknown Problems ALLERGIES Substance Reaction Event Type Date Status Sulfacetamide Sodium Unknown Drug Allergy Apr, Active Penicillin V Potassium Unknown Drug Allergy Apr, Active Nitrofurantoin Unknown Drug Allergy Apr, Active Codeine Sulfate Unknown Drug Allergy Apr, Active ENCOUNTERS Encounter Location Date Diagnosis [facility] [id number] [place] [address] [phone] Dec, Dental caries K02.9 [facility] [id number] [place] [address] [phone] Dec, Dental examination Z01.20 [facility] [id number] [place] [address] [phone] Apr, Dental examination Z01.20 [facility] [id number] [place] [address] [phone] Apr, Dental examination Z01.20 [facility] [id number] [place] [address] [phone] Oct, Encounter for dental examination Z01.20 [facility] [id number] [place] [address] [phone] Jun, IMMUNIZATIONS No Known Immunizations SOCIAL HISTORY Never Assessed REASON FOR VISIT Prprophy/premed required PLAN OF CARE Activity Details Follow Up chase Reason:restore VITAL SIGNS Blood pressure systolic 164 mmHg 2017-05-22 Blood pressure diastolic 85 mmHg 2017-05-22 MEDICATIONS Medication Instructions Dosage Frequency Start Date End Date Duration Status NovoLog Active Lyrica Active Hydrocodone-Acetaminophen 7.5-325 MG Orally every 4-6 hrs 1 or 2 tablets as needed SENIOR CARE PATIENT Jun, Active Digoxin Active Furosemide Active Vitamin B 12 Active potassium Active Oxcarbazepine Active Famotidine Active BusPIRone HCl Active Coreg Active Xarelto Active Levemir Active Tradjenta Active Metformin HCl Active Vitamin D Active RESULTS No Results PROCEDURES Procedure Date Ordered Result Body Site COMP ORAL EVALUATION - NEW/EST PT May 22, 2017 INTRAORL-PERIAPICAL 1 FILM [id number] May 22, 2017 TOPICAL FLUORIDE VARNISH May 22, 2017 INTRAORL-PERIAPICAL EA ADD FILM May 22, 2017 INTRAORL-PERIAPICAL EA ADD FILM May 22, 2017 PROPHYLAXIS - ADULT May 22, 2017 INTRAORL-PERIAPICAL EA ADD FILM May 22, 2017 INSTRUCTIONS MEDICATIONS ADMINISTERED No Known Medications [...]
--- OUTSIDE RECORDS SUMMARY | 2018-03-09 09:54 | XMS REPORT | Continuity of Care Document ---
Author Author [facility] Organization [facility] Address Unknown Phone Unavailable Allergies Active Description Code Type Severity Reaction Onset Reported/Identified Relationship to Patient Clinical Status Yes Sulfa (Sulfonamide Antibiotics) [id number] Drug Allergy Mild N/A 2008 Yes codeine [id number] Drug Allergy Mild N/A 09/15/2015 Yes codeine [id number] Drug Allergy Mild PT TAKES HYDROC 03/06/2017 Yes nitrofurantoin [id number] Drug Allergy Mild RASH 03/06/2017 Yes Penicillins [id number] Drug Allergy Mild N/A 03/06/2017 Yes sulfur dioxide [id number] Drug Allergy Unknown N/A 03/06/2017 Medications There is no data. Problems Date Dx Coded Attending Type Code [...] OF BREAST MALIGNANCY 07/18/2011 Ot V58.67 LONG-TERM ( CURRENT) USE OF INSULIN 07/18/2011 Ot V58.69 OTH MED,LT, CURRENT USE 09/06/2011 Ot 250.00 DIAB TJ WO COMPL, TYPE II OR UNSPEC TY 09/06/2011 Ot 354.0 CARPAL TUNNEL SYNDROME 09/06/2011 Ot V58.61 ANTICOAGULANTS,LT,CURRENT USE 09/06/2011 Ot V58.69 OTH MED,LT, CURRENT USE 09/21/2011 Ot 250.00 DIAB TJ WO COMPL, TYPE II OR UNSPEC TY 09/21/2011 Ot 251.0 HYPOGLYCEMIC COMA 09/21/2011 Ot 276.8 HYPOPOTASSEMIA 09/21/2011 Ot 401.9 HYPERTENSION NOS 09/21/2011 Ot 427.31 ATRIAL FIBRILLATION 09/21/2011 Ot 780.09 OTHER ALTERATION OF CONSCIOUSNESS 09/21/2011 Ot 791.9 ABN URINE FINDINGS NEC 09/21/2011 Ot E932.3 ADV EFF INSULIN/ANTIDIAB 09/21/2011 Ot V58.67 LONG-TERM ( CURRENT) USE OF INSULIN 05/13/2012 Ot 217 BENIGN NEOPLASM BREAST 05/13/2012 Ot 610.8 BENIGN MAMM DYSPLAS NEC 05/13/2012 Ot 611.89 OTHER SPECIFIED DISORDERS OF BREAST 09/16/2012 Ot 599.0 URIN TRACT INFECTION NOS 09/16/2012 Ot 789.09 ABDOMINAL PAIN, OTHER SPECIFIED SITE 09/16/2012 Ot V58.61 ANTICOAGULANTS,LT,CURRENT USE 09/16/2012 Ot V58.69 OTH MED,LT, CURRENT USE 12/31/2012 Ot 250.00 DIAB TJ WO [...] PANDA MD Ot 414.01 CORONARY ATHEROSCLEROSIS OF [place] CORON 11/15/2014 MEGHA PANDA MD Ot 427.31 [...] LONG-TERM (CURRENT) USE OF INSULIN 11/15/2014 MEGHA PANDA MD Ot V85.41 BODY MASS INDEX 40.0-44.9, ADULT 11/16/2014 MEGHA PANDA MD Ot 786.2 11/16/2014 DANY HOLLIS DO Ot [...] 11/29/2014 Ot 729.5 11/29/2014 Ot V12.51 11/29/2014 ROSALEEFAITH RABAGO N Ot 174.9 11/29/2014 FARZAD MOULTON, MEGHA Ku Ot 453.40 11/29/2014 ROSALEEFAITH RABAGO N Ot V10.3 11/29/2014 ROSALEEFAITH RABAGO N Ot V67.9 11/29/2014 INDIA MOULTON, ERVIN Lanier Ot 593.9 11/29/2014 INDIA MOULTON, ERVIN A Ot 753.10 11/29/2014 JOSELUIS BORGES FINANCIAL AID Ot 174.9 11/29/2014 BORGESJOSELUIS Devi FINANCIAL AID Ot V67.9 11/29/2014 INDIA MOULTON, ERVIN A Ot 593.2 11/29/2014 [facility] Ot V72.84 11/29/2014 INDIA MOULTON, ERVIN A Ot 593.2 11/29/2014 ROSALEEFAITH RABAGO N Ot 174.9 11/29/2014 ROSALEEFAITH RABAGO N Ot V67.9 11/29/2014 ROSALEEFAITH RABAGO N Ot 793.80 11/29/2014 RAVEN LEO ATTRACTION ATTENDANT Ot 729.5 11/29/2014 RAVEN LEO ATTRACTION ATTENDANT Ot 786.05 11/29/2014 INDIA MOULTON, ERVIN Lanier Ot 593.2 11/29/2014 RAVEN LEO APRN Ot 729.5 11/29/2014 RAVEN LEO ATTRACTION ATTENDANT Ot 786.05 11/30/2014 RAVEN LEO ATTRACTION ATTENDANT Ot 729.5 11/30/2014 RAVEN LEO APRN Ot 786.05 11/30/2014 Ot 397.0 11/30/2014 Ot [...] 611.89 11/30/2014 Ot V67.09 11/30/2014 FARZAD MOULTON, MEGHA Ku Ot 786.2 11/30/2014 Ot 729.5 11/30/2014 Ot V12.51 11/30/2014 FAITH TURK N Ot 174.9 11/30/2014 FARZAD MOULTON, MEGHA Ku Ot 453.40 11/30/2014 ROSALEEFAITH N Ot V10.3 11/30/2014 ROSALEEFAITH RABAGO N Ot V67.9 11/30/2014 INDIA MOULTON, ERVIN Lanier Ot 593.9 11/30/2014 INDIA MOULTON, ERVIN Lanier Ot 753.10 11/30/2014 JOSELUIS BORGES FINANCIAL AID Ot 174.9 11/30/2014 JOSELUIS BORGES FINANCIAL AID Ot V67.9 11/30/2014 INDIA MOULTON, ERVIN Lanier Ot 593.2 11/30/2014 NIRAV MOULTON, TAKANALI Ot V72.84 11/30/2014 INDIA MOULTON, ERVIN Lanier Ot 593.2 11/30/2014 ROSALEEFAITH RABAGO N Ot 174.9 11/30/2014 ROSALEE, BOBAN N Ot V67.9 11/30/2014 ROSALEEFAITH RABAGO N Ot 793.80 11/30/2014 RAVEN LEO APRN Ot 729.5 11/30/2014 RAVEN LEO APRN Ot 786.05 11/30/2014 INDIA MOULTON, ERVIN Lanier Ot 593.2 12/02/2014 LAKISHA MOULTON, SHELEA Short Ot 724.5 12/02/2014 LAKISHA MOULTON, SHEELA Short Ot 729.5 12/02/2014 LAKISHA MOULTON, SHEELA Short Ot V57.1 12/02/2014 INDIA MOULTON, ERVIN Lanier Ot 593.2 12/07/2014 LAKISHA MOULTON, SHEELA Short Ot 724.5 12/07/2014 LAKISHA MOULTON, SHEELA Short Ot 729.5 12/07/2014 LAKISHA MOULTON, SHEELA Short Ot V57.1 12/28/2014 LAKISHA MOULTON, SHEELA Short Ot 724.5 12/28/2014 LAKISHA MOULTON, SHEELA Short Ot 729.5 12/28/2014 LAKISHA MOULTON, SHEELA Short Ot V57.1 12/28/2014 SHEELA BANUELOS MD Ot 724.5 12/28/2014 SHEELA BANUELOS MD Ot 729.5 12/28/2014 SHEELA BANUELOS MD Ot V57.1 01/03/2015 LAKISHA MOULTON, SHEELA Short Ot 724.5 01/03/2015 LAKISHA MOULTON, SHEELA Short Ot 729.5 01/03/2015 LAKISHA MOULTON, SHEELA Short Ot V57.1 01/03/2015 FARZAD MOULTON, MEGHA Ku Ot 428.0 01/04/2015 MEGHA PANDA MD Ot 428.0 01/07/2015 LAKISHA MOULTON, SHEELA Short Ot 724.5 01/07/2015 SHEELA BANUELOS MD Ot [...] PANDA MD Ot 414.01 CORONARY ATHEROSCLEROSIS OF [place] CORON 04/09/2015 MEGHA PANDA MD Ot 493.00 [...] N Ot V67.9 05/03/2015 INDIA MOULTON, ERVIN Lanier Ot 593.9 05/03/2015 INDIA MOULTON, ERVIN Lanier Ot 753.10 05/03/2015 JOSELUIS BORGES FINANCIAL AID Ot 174.9 05/03/2015 JOSELUIS BORGES FINANCIAL AID Ot V67.9 05/03/2015 INDIA MOULTON, ERVIN A Ot 593.2 05/03/2015 NIRAV MOULTON, ARI Ot V72.84 05/03/2015 INDIA MOULTON, ERVIN A Ot 593.2 05/03/2015 FAITH TURK N Ot 174.9 05/03/2015 FAITH TURK N Ot V67.9 05/03/2015 FAITH TUKR N Ot 793.80 05/03/2015 RAVEN LEO ATTRACTION ATTENDANT Ot 729.5 05/03/2015 RAVEN LEO APRN Ot [...] Ot 729.5 05/18/2015 Ot V12.51 05/18/2015 ROSALEE, EDNAAN N Ot 174.9 05/18/2015 FARZAD MOULTON, MEGHA Ku Ot 453.40 05/18/2015 ROSALEE, BOBAN N Ot V10.3 05/18/2015 ROSALEE, BOBAN N Ot V67.9 05/18/2015 INDIA MOULTON, ERVIN A Ot 593.9 05/18/2015 INDIA MOULTON, ERVIN A Ot 753.10 05/18/2015 JOSELUIS BORGES FINANCIAL AID Ot 174.9 05/18/2015 BORGESJOSELUIS Devi FINANCIAL AID Ot V67.9 05/18/2015 INDIA MOULTON, ERVIN A Ot 593.2 05/18/2015 NIRAV [facility]LTON[facility] Ot V72.84 05/18/2015 INDIA MOULTON, ERVIN A Ot 593.2 05/18/2015 ROSALEE, BOBAN N Ot 174.9 05/18/2015 ROSALEE, FAITH N Ot V67.9 05/18/2015 ROSALEE, BOBAN N Ot 793.80 05/18/2015 RAVEN LEO ATTRACTION ATTENDANT Ot 729.5 05/18/2015 RAVEN LEO ATTRACTION ATTENDANT Ot 786.05 05/18/2015 INDIA MOULTON, ERVIN Lanier Ot 593.2 05/18/2015 FARZAD MOULTON, MEGHA Ku Ot 428.0 05/18/2015 RAVEN LEO ATTRACTION ATTENDANT Ot 719.41 05/18/2015 RAVEN LEO ATTRACTION ATTENDANT Ot 786.59 05/18/2015 RAVEN LEO ATTRACTION ATTENDANT Ot V57.1 05/18/2015 INDIA MOULTON, ERVIN A Ot 753.10 05/18/2015 ROSALEE, BOBAN N Ot V10.3 05/18/2015 ROSALEE, BOBAN N Ot V12.51 05/18/2015 ROSALEE, BOBAN N Ot V12.55 05/18/2015 ROSALEE, BOBAN N Ot V45.71 05/18/2015 FAITH TURK N Ot V58.61 05/18/2015 FAITH TURK N Ot V58.69 05/18/2015 FAITH TURK Ot V67.2 05/23/2015 RAVEN LEO ATTRACTION ATTENDANT Ot 719.41 05/23/2015 RAVEN LEO ATTRACTION ATTENDANT Ot 786.59 05/23/2015 RAVEN LEO ATTRACTION ATTENDANT Ot V57.1 05/23/2015 ERVIN OSBORNE MD Ot [...] V12.51 05/25/2015 FAITH TURK Ot 174.9 05/25/2015 MEGHA PANAD MD Ot 453.40 05/25/2015 FAITH TURK N Ot V10.3 05/25/2015 FAITH TURK N Ot V67.9 05/25/2015 INDIA MOULTON, ERVIN Lanier Ot 593.9 05/25/2015 INDIA MOULTON, ERVIN Lanier Ot 753.10 05/25/2015 JOSELUIS BORGES FINANCIAL AID Ot 174.9 05/25/2015 JOSELUIS BORGES FINANCIAL AID Ot V67.9 05/25/2015 INDIA MOULTON, ERVIN Lanier Ot 593.2 05/25/2015 NIRAV MOULTON, ARI Ot V72.84 05/25/2015 INDIA MOULTON, ERVIN Lanier Ot 593.2 05/25/2015 ROSALEE, BOBAN N Ot 174.9 05/25/2015 ROSALEE, BOBAN N Ot V67.9 05/25/2015 ROSALEE, BOBAN N Ot 793.80 05/25/2015 AHMET, RAVEN R ATTRACTION ATTENDANT Ot 729.5 05/25/2015 AHMET, RAVEN R ATTRACTION ATTENDANT Ot 786.05 05/25/2015 INDIA MOULTON, ERVIN Lanier Ot 593.2 05/25/2015 FARZAD MOULTON, MEGHA Ku Ot 428.0 05/25/2015 AHMET, RAVEN R ATTRACTION ATTENDANT Ot 719.41 05/25/2015 AHMET, RAVEN R ATTRACTION ATTENDANT Ot 786.59 05/25/2015 AHMET, RAVEN R ATTRACTION ATTENDANT Ot V57.1 05/25/2015 INDIA MOULTON, ERVIN A Ot 753.10 05/25/2015 ROSALEE, BOBAN N Ot V10.3 05/25/2015 ROSALEE, BOBAN N Ot V12.51 05/25/2015 ROSALEE, BOBAN N Ot V12.55 05/25/2015 ROSALEE, BOBAN N Ot V45.71 05/25/2015 ROSALEE, BOBAN N Ot V58.61 05/25/2015 ROSALEE, BOBAN N Ot V58.69 05/25/2015 ROSALEE, BOBAN N Ot V67.2 05/25/2015 ROSALEE, BOBAN N Ot 174.9 05/25/2015 AHMET, RAVEN R ATTRACTION ATTENDANT Ot 719.41 05/25/2015 AHMET, RAVEN R ATTRACTION ATTENDANT Ot 786.59 05/25/2015 AHMET, RAVEN R ATTRACTION ATTENDANT Ot V57.1 05/25/2015 AHMET, RAVEN R ATTRACTION ATTENDANT Ot 719.41 05/25/2015 AHMET, RAVEN R ATTRACTION ATTENDANT Ot 786.59 05/25/2015 AHMET, RAVNE R ATTRACTION ATTENDANT Ot V57.1 05/25/2015 AHMET, RAVEN R ATTRACTION ATTENDANT Ot 719.41 05/25/2015 AHMET, RAVEN R ATTRACTION ATTENDANT Ot 786.59 05/25/2015 AHMET, RAVEN R ATTRACTION ATTENDANT Ot V57.1 05/27/2015 FARZAD MOULTON, MEGHA Ku [...] 06/03/2015 ROSALEE, BOBAN N Ot V12.55 06/03/2015 ROASLEE, BOBAN N Ot V45.71 06/03/2015 ROSALEE, BOBAN [...] 780.2 SYNCOPE AND COLLAPSE 06/14/2015 FAITH TURK N Ot 174.9 06/16/2015 RAVEN LEO APRN Ot 719.41 JOINT PAIN-SHLDER 06/16/2015 RAVEN LEO ATTRACTION ATTENDANT Ot 786.59 CHEST PAIN NEC 06/16/2015 RAVEN [...] STRUCK BY OTHER OBJE 09/08/2015 MEGHA PANDA MD, Ot D62 ACUTE POSTHEMORRHAGIC ANEMIA 09/08/2015 MEGHA [...] ADULT 09/08/2015 MEGHA PANDA MD, Ot Z79.01 SENIOR LIVING (CURRENT) USE OF ANTICOAGULANT 09/08/2015 MEGHA PANDA MD, Ot Z79.4 SENIOR LIVING (CURRENT) USE OF INSULIN 09/08/2015 MEGHA PANDA MD Ot Z85.3 PERSONAL HISTORY OF MALIGNANT NEOPLASM O 09/08/2015 MEGHA PANDA MD Ot Z86.711 PERSONAL HISTORY OF PULMONARY EMBOLISM 09/08/2015 MEGHA PANDA MD Ot Z86.718 PERSONAL HISTORY OF OTHER VENOUS THROMBO 09/15/2015 DASH PARTIDA MDIC E Ot D64.9 ANEMIA, UNSPECIFIED 09/15/2015 JAQUAN MOULTON VENUS E Ot E11.9 TYPE 2 DIABETES MELLITUS WITHOUT COMPLIC 09/15/2015 JAQUAN MOULTON VENUS E Ot E66.9 OBESITY, UNSPECIFIED 09/15/2015 DASH PARTIDA MDIC E Ot E83.42 HYPOMAGNESEMIA 09/15/2015 DASH PARTIDA MDIC E Ot E83.51 HYPOCALCEMIA 09/15/2015 DASH PARTIDA MDIC E Ot E87.6 HYPOKALEMIA 09/15/2015 VENUS PARTIDA MD E Ot F31.9 BIPOLAR DISORDER, UNSPECIFIED 09/15/2015 DASH PARTIDA MDIC E Ot F41.9 ANXIETY DISORDER, UNSPECIFIED 09/15/2015 JAQUAN MOULTON VENUS E Ot G25.0 ESSENTIAL TREMOR 09/15/2015 DASH PARTIDA MDIC E Ot G47.33 OBSTRUCTIVE SLEEP APNEA (ADULT) (PEDIATR 09/15/2015 DASH PARTIDA MDIC E Ot H91.10 PRESBYCUSIS, UNSPECIFIED EAR 09/15/2015 JAQUAN MOULTON VENUS E Ot I10 ESSENTIAL (PRIMARY) HYPERTENSION 09/15/2015 DASH PARTIDA MDIC E Ot I27.2 OTHER SECONDARY PULMONARY HYPERTENSION 09/15/2015 DASH PARTIDA MDIC E Ot I48.91 UNSPECIFIED ATRIAL FIBRILLATION 09/15/2015 JAQUAN MOULTON VENUS E Ot J44.9 CHRONIC OBSTRUCTIVE PULMONARY DISEASE, U 09/15/2015 DASH PARTIDA MDIC E Ot K59.00 CONSTIPATION, UNSPECIFIED 09/15/2015 DASH PARTIDA MDIC E Ot Q21.1 ATRIAL SEPTAL DEFECT 09/15/2015 VENUS PARTIDA MD E Ot R50.9 FEVER, UNSPECIFIED 09/15/2015 VENUS PARTIDA MD E Ot S72.141D DISPL INTERTROCH FX R FEMUR, SUBS FOR CL 09/15/2015 VEUNS PARTIDA MD E Ot S72.21XD DISPL SUBTROCHNT [...] ADULT 09/23/2015 MEGHA MATIAS MD, Ot Z79.01 SPOOL WINDER (CURRENT) USE OF ANTICOAGULANT 09/23/2015 MEGHA MATIAS MD, Ot Z79.4 SENIOR LIVING (CURRENT) USE OF INSULIN 10/19/2015 MEGHA PANDA MD, Ot B95.62 METHICILLIN RESIS STAPH INFCT CAUSING DI 10/19/2015 MEGHA PANDA MD, Ot D64.9 ANEMIA, UNSPECIFIED 10/19/2015 MEGHA PANDA MD, Ot E11.9 TYPE 2 DIABETES MELLITUS WITHOUT COMPLIC 10/19/2015 MEGHA PANDA MD, Ot E66.01 MORBID (SEVERE) OBESITY DUE [...] MD, Ot I48.91 UNSPECIFIED ATRIAL FIBRILLATION 10/19/2015 EMGHA PANDA MD, Ot J44.9 CHRONIC OBSTRUCTIVE PULMONARY DISEASE, U 10/19/2015 MEGHA PANDA MD, Ot L03.115 CELLULITIS OF RIGHT LOWER LIMB 10/19/2015 MEGHA PANDA MD, Ot L29.9 PRURITUS, UNSPECIFIED 10/19/2015 MEGHA PANDA MD, Ot Q21.1 ATRIAL SEPTAL DEFECT 10/19/2015 MEGHA PANDA MD, Ot T81.4XXA INFECTION FOLLOWING A PROCEDURE, INITIAL 10/19/2015 MEGHA PANDA MD, Ot T88.8XXA OTH COMPLICATIONS OF SURGICAL AND MEDICA 10/19/2015 MEGHA PANDA MD, Ot Z68.38 BODY MASS INDEX (BMI) 38.0-38.9, ADULT 10/19/2015 MEGHA PANDA MD, Ot Z79.4 SPOOL WINDER (CURRENT) USE OF INSULIN 12/06/2015 MEGHA PANDA [...] SPECIF 02/02/2016 SANGEETA MARSHALL MD Ot Z79.4 SPOOL WINDER (CURRENT) USE OF INSULIN 02/17/2016 DANY ESPINAL DO Ot E03.9 02/17/2016 DANY ESPINAL DO Ot I48.2 02/17/2016 DANY ESPINAL DO Ot N39.0 02/22/2016 AGATHA ESPINAL FINANCIAL AID Ot N39.0 03/01/2016 AGATHA ESPINAL FINANCIAL AID Ot N39.0 03/06/2016 DANY ESPINAL DO Ot N39.0 03/07/2016 DANY ESPINAL DO Ot E03.9 03/07/2016 DANY ESPINAL DO Ot I48.2 03/07/2016 DANY ESPINAL DO Ot N39.0 03/08/2016 CELI SMITH DOA Cricket Ot I51.7 CARDIOMEGALY 03/08/2016 SARAH DO NELLY K Ot N39.0 URINARY TRACT INFECTION, SITE NOT SPECIF 03/08/2016 SARAH CELI CHAUHANA K Ot R09.89 OT SYMPTOMS AND SIGNS INVOLVING THE CIR 03/09/2016 SARAH DO NELLY K Ot I51.7 CARDIOMEGALY 03/09/2016 SARAH DO NELLY K Ot N39.0 URINARY TRACT INFECTION, SITE NOT SPECIF 03/09/2016 SARAH DO, NELLY K Ot R09.89 OT SYMPTOMS AND SIGNS INVOLVING THE CIR 03/12/2016 BERENICE CHAUHAN JOSE ELIAS Ot A41.51 SEPSIS DUE TO ESCHERICHIA COLI [E. 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 03/12/2016 BERENICE CHAUHAN JOSE ELIAS Ot J44.9 CHRONIC OBSTRUCTIVE PULMONARY DISEASE, U 03/12/2016 BERENICE CHAUHAN JOSE ELIAS Ot K59.00 CONSTIPATION, UNSPECIFIED 03/12/2016 BERENICE CHAUHAN JOSE ELIAS Ot N39.0 URINARY TRACT INFECTION, SITE NOT SPECIF 03/12/2016 BERENICE CHAUHAN JOSE ELIAS Ot Z66 DO NOT RESUSCITATE 03/12/2016 BERENICE CHAUHAN JOSE ELIAS Ot Z68.33 BODY MASS INDEX (BMI) 33.0-33.9, ADULT 03/12/2016 BERENICE CHAUHAN JOSE ELIAS Ot Z99.81 DEPENDENCE ON SUPPLEMENTAL OXYGEN 03/14/2016 DANY ESPINAL DO Ot E03.9 HYPOTHYROIDISM, UNSPECIFIED 03/14/2016 DANY ESPINAL DO Ot I48.2 CHRONIC ATRIAL FIBRILLATION 03/14/2016 DANY ESPINAL DO Ot N39.0 URINARY TRACT INFECTION, SITE NOT SPECIF 03/21/2016 SANGEETA MARSHALL MD Ot D72.829 ELEVATED WHITE [...] Ot M54.10 RADICULOPATHY, SITE UNSPECIFIED 03/21/2016 SANGEETA MARSHLAL MD Ot R41.0 DISORIENTATION, UNSPECIFIED 03/21/2016 SANGEETA MARSHALL MD Ot R44.3 HALLUCINATIONS, UNSPECIFIED 03/21/2016 SANGEETA MARSHALL MD Ot R50.9 FEVER, UNSPECIFIED 03/21/2016 SANGEETA MARSHALL MD Ot Z79.01 SPOOL WINDER (CURRENT) USE OF ANTICOAGULANT 03/21/2016 SANGEETA MARSHALL MD Ot Z79.4 SPOOL WINDER (CURRENT) USE OF INSULIN 03/21/2016 SANGEETA MARSHALL MD Ot Z86.711 PERSONAL HISTORY OF PULMONARY EMBOLISM 03/21/2016 SANGEETA MARSHALL MD Ot Z86.718 PERSONAL HISTORY OF OTHER VENOUS THROMBO 03/22/2016 DANY ESPINAL DO Ot N39.0 URINARY TRACT INFECTION, SITE NOT SPECIF 03/22/2016 SANGEETA MARSHALL MD Ot D72.829 ELEVATED WHITE BLOOD CELL COUNT, UNSPECI 03/22/2016 SANGEETA MARSHALL MD Ot E11.9 TYPE 2 DIABETES MELLITUS WITHOUT COMPLIC 03/22/2016 SANGEETA MARSHALL MD Ot E78.0 PURE HYPERCHOLESTEROLEMIA 03/22/2016 SANGEETA MARSHALL MD Ot E87.6 HYPOKALEMIA 03/22/2016 SANGEETA MARSHALL MD Ot F32.9 MAJOR DEPRESSIVE DISORDER, SINGLE EPISOD 03/22/2016 SANGEETA MARSHALL MD Ot F41.9 ANXIETY DISORDER, UNSPECIFIED 03/22/2016 SANGEETA MARSHALL MD Ot G47.30 SLEEP APNEA, UNSPECIFIED 03/22/2016 SANGEETA MARSHALL MD Ot I10 ESSENTIAL (PRIMARY) HYPERTENSION 03/22/2016 SANGEETA MARSHALL MD Ot I27.2 OTHER SECONDARY PULMONARY HYPERTENSION 03/22/2016 SANGEETA MARSHALL MD Ot I48.91 UNSPECIFIED ATRIAL FIBRILLATION 03/22/2016 SANGEETA MARSHALL MD Ot J44.9 CHRONIC OBSTRUCTIVE PULMONARY DISEASE, U 03/22/2016 SANGEETA MARSHALL MD Ot K59.00 CONSTIPATION, UNSPECIFIED 03/22/2016 SANGEETA MARSHALL MD Ot M21.371 FOOT DROP, RIGHT FOOT 03/22/2016 SANGEETA MARSHALL MD Ot M54.10 RADICULOPATHY, SITE UNSPECIFIED 03/22/2016 SANGEETA MARSHALL MD Ot R41.0 DISORIENTATION, UNSPECIFIED 03/22/2016 SANGEETA MARSAHLL MD Ot R44.3 HALLUCINATIONS, UNSPECIFIED 03/22/2016 SANGEETA MARSHALL MD Ot R50.9 FEVER, UNSPECIFIED 03/22/2016 SANGEETA MARSHALL MD Ot R53.2 FUNCTIONAL QUADRIPLEGIA 03/22/2016 SANGEETA MARSHALL MD Ot Z79.01 SPOOL WINDER (CURRENT) USE OF ANTICOAGULANT 03/22/2016 SANGEETA MARSHALL MD Ot Z79.4 SENIOR LIVING (CURRENT) USE OF INSULIN 03/22/2016 SANGEETA MARSHALL MD Ot Z86.711 PERSONAL HISTORY OF PULMONARY EMBOLISM 03/22/2016 SANGEETA MARSHALL MD Ot Z86.718 PERSONAL HISTORY OF OTHER VENOUS THROMBO 03/22/2016 SANGEETA MARSHALL MD Ot Z87.440 PERSONAL HISTORY OF URINARY (TRACT) INFE 03/22/2016 SANGEETA MARSHALL MD Ot Z91.19 PATIENT'S NONCOMPLIANCE W OT MEDICAL TR 03/28/2016 NELLY SMITH DO Ot I51.7 CARDIOMEGALY 03/28/2016 NELLY SMITH DO Ot N39.0 URINARY TRACT INFECTION, SITE NOT SPECIF 03/28/2016 NELLY SMITH DO Ot R09.89 OT SYMPTOMS AND SIGNS INVOLVING THE CIR 04/04/2016 [...] V58.61 ANTICOAGULANTS,LT,CURRENT USE 04/26/2016 Ot V58.67 LONG-TERM ( CURRENT) USE OF INSULIN 04/26/2016 Ot V58.69 OT MED,LT, CURRENT USE 04/26/2016 Ot V67.2 CHEMOTHERAPY FOLLOW-UP 04/26/2016 [...] CARPAL TUNNEL SYNDROME 04/26/2016 Ot V72.83 EXAM PRE- OPERATIVE NEC 04/26/2016 Ot V74.8 SCREEN- BACTERIAL DIS NEC 04/26/2016 Ot 250.00 DIAB TJ WO COMPL, TYPE II OR UNSPEC TY 04/26/2016 Ot 401.9 HYPERTENSION NOS 04/26/2016 Ot 562.10 DIVERTICULOSIS COLON (W/O MENT OF HEMORR 04/26/2016 Ot 569.89 INTESTINAL DISORDERS NEC 04/26/2016 Ot V10.3 HX OF BREAST MALIGNANCY 04/26/2016 Ot V58.61 ANTICOAGULANTS,LT,CURRENT USE 04/26/2016 Ot V58.69 OTH MED,LT, CURRENT USE 04/26/2016 Ot V76.51 SCREEN MAL NEOP-COLON 04/26/2016 Ot 562.10 DIVERTICULOSIS COLON (W/O MENT OF HEMORR 04/26/2016 Ot 174.9 MALIGN NEOPL BREAST NOS 04/26/2016 Ot 174.9 MALIGN NEOPL BREAST NOS 04/26/2016 Ot V76.11 SCRN MAMMO- HIGH RISK PT, MALIGNANT NEOPL 04/26/2016 Ot 174.9 MALIGN NEOPL BREAST NOS 04/26/2016 Ot 793.81 MAMMOGRAPHIC MICROCLACIFICATION 04/26/2016 Ot 793.81 MAMMOGRAPHIC MICROCLACIFICATION 04/26/2016 Ot V64.3 NO PROC FOR REASONS NEC 04/26/2016 Ot 611.72 LUMP OR MASS IN BREAST 04/26/2016 Ot V72.83 EXAM PRE- OPERATIVE NEC 04/26/2016 Ot V74.8 SCREEN- BACTERIAL DIS NEC 04/26/2016 Ot 611.89 OTHER SPECIFIED [...] TURK Ot V67.9 FOLLOW-UP EXAM NOS 04/26/2016 ERVIN OSBORNE MD Ot 593.9 RENAL URETERAL DIS NOS 04/26/2016 ERVIN OSBORNE MD Ot 753.10 CYSTIC KIDNEY DISEASE, UNSPECIFIED 04/26/2016 JOSELUIS BORGES FINANCIAL AID Ot 174.9 MALIGN NEOPL BREAST NOS 04/26/2016 JOSELUIS BORGES FINANCIAL AID Ot V67.9 FOLLOW-UP EXAM NOS 04/26/2016 ERVIN OSBORNE MD Ot 593.2 CYST OF KIDNEY, ACQUIRED 04/26/2016 [facility]TON[facility] Ot V72.84 EXAM PRE-OPERATIVE NOS 04/26/2016 ERVIN OSBORNE MD Ot 593.2 CYST OF KIDNEY, ACQUIRED 04/26/2016 FAITH TURK Ot 174.9 MALIGN NEOPL BREAST NOS 04/26/2016 FAITH TURK Ot V67.9 FOLLOW-UP EXAM NOS 04/26/2016 FAITH TURK Ot 793.80 UNSPEC ABNORMAL MAMMOGRAM 04/26/2016 RAVEN LEO ATTRACTION ATTENDANT Ot 729.5 PAIN IN LIMB 04/26/2016 RAVEN LEO ATTRACTION ATTENDANT Ot 786.05 SHORTNESS OF BREATH 04/26/2016 ERVIN OSBORNE MD Ot 593.2 CYST OF KIDNEY, ACQUIRED 04/26/2016 FARZAD MOULTON, MEGHA Ku Ot 428.0 CONGESTIVE HEART FAILURE NOS 04/26/2016 [...] TY 04/26/2016 MEGHA PANDA MD Ot V58.69 OTH MED,LT,CURRENT USE 04/26/2016 MEGHA PANDA MD Ot L03.90 CELLULITIS, UNSPECIFIED 04/26/2016 MEGHA PANDA MD Ot Z51.81 ENCOUNTER FOR THERAPEUTIC DRUG LEVEL MON 04/26/2016 MEGHA PANDA MD Ot Z79.2 SPOOL WINDER (CURRENT) USE OF ANTIBIOTICS 04/26/2016 AGATHA ESPINAL [...] FOLLOW-UP EXAM AFTER TRTMT FO 05/11/2016 JOSELUIS BORGES Ot Z79.01 SENIOR LIVING (CURRENT) USE OF ANTICOAGULANT 05/11/2016 JOSELUIS BORGESP Ot Z85.3 PERSONAL HISTORY OF MALIGNANT NEOPLASM O 05/11/2016 JOSELUIS BORGES Ot Z86.718 PERSONAL HISTORY OF OTHER VENOUS THROMBO 05/11/2016 JOSELUIS BORGES Ot Z90.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 05/11/2016 JOSELUIS BORGES Ot Z08 ENCNTR FOR FOLLOW-UP EXAM AFTER TRTMT FO 05/11/2016 JOSELUIS BORGES Ot Z79.01 SPOOL WINDER (CURRENT) USE OF ANTICOAGULANT 05/11/2016 JOSELUIS BORGESP Ot Z85.3 PERSONAL HISTORY OF MALIGNANT NEOPLASM O 05/11/2016 BORGESJOSELUIS Devi JASON Ot Z86.718 PERSONAL HISTORY OF OTHER VENOUS THROMBO 05/11/2016 BORGESJOSELUIS Devi FINANCIAL AID Ot Z90.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 05/14/2016 Ot 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 05/14/2016 Ot N28.1 CYST OF KIDNEY, ACQUIRED 05/17/2016 Ot 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 05/17/2016 Ot N28.1 CYST OF KIDNEY, ACQUIRED 05/22/2016 DANY ESPINAL DO Ot F02.81 DEMENTIA IN OT DISEASES CLASSD ELSR W 05/24/2016 DANY ESPINAL DO, Ot F02.81 DEMENTIA IN OT DISEASES CLASSD ELSR W 05/24/2016 DANY ESPINLA DO, Ot F02.81 DEMENTIA IN OT DISEASES [facility] 05/24/2016 DANY ESPINAL DO Ot 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, 05/25/2016 NELLY SMITH DO Ot I51.7 CARDIOMEGALY 05/25/2016 NELLY SMITH DO Ot N39.0 URINARY TRACT INFECTION, SITE NOT SPECIF 05/25/2016 NELLY SMITH DO Ot R09.89 [facility] SYMPTOMS AND SIGNS INVOLVING THE CIR 05/26/2016 DANY ESPINAL DO Ot F02.81 DEMENTIA IN OTH DISEASES CLASSD ELSR W 05/26/2016 DANY ESPINAL DO, Ot 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, 05/28/2016 Ot 354.9 MONONEURITIS ARM NOS 05/28/2016 Ot 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 05/28/2016 Ot 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 05/28/2016 Ot V10.3 HX OF BREAST MALIGNANCY 05/28/2016 Ot V45.71 ACQUIRED ABSENCE OF BREAST AND NIPPLE 05/28/2016 Ot V58.61 ANTICOAGULANTS,LT,CURRENT USE 05/28/2016 Ot V58.67 LONG-TERM ( CURRENT) USE OF INSULIN 05/28/2016 Ot V58.69 OTH MED,LT, CURRENT USE 05/28/2016 Ot V67.2 CHEMOTHERAPY FOLLOW-UP 05/28/2016 [...] CARPAL TUNNEL SYNDROME 05/28/2016 Ot V72.83 EXAM PRE- OPERATIVE NEC 05/28/2016 Ot V74.8 SCREEN- BACTERIAL DIS NEC 05/28/2016 Ot 250.00 DIAB TJ WO COMPL, TYPE II OR UNSPEC TY 05/28/2016 Ot 401.9 HYPERTENSION NOS 05/28/2016 Ot 562.10 DIVERTICULOSIS COLON (W/O MENT OF HEMORR 05/28/2016 Ot 569.89 INTESTINAL DISORDERS NEC 05/28/2016 Ot V10.3 HX OF BREAST MALIGNANCY 05/28/2016 Ot V58.61 ANTICOAGULANTS,LT,CURRENT USE 05/28/2016 Ot V58.69 OTH MED,LT, CURRENT USE 05/28/2016 Ot V76.51 SCREEN MAL NEOP-COLON 05/28/2016 Ot 562.10 DIVERTICULOSIS COLON (W/O MENT OF HEMORR 05/28/2016 Ot 174.9 MALIGN NEOPL BREAST NOS 05/28/2016 Ot 174.9 MALIGN NEOPL BREAST NOS 05/28/2016 Ot V76.11 SCRN MAMMO- HIGH RISK PT, MALIGNANT NEOPL 05/28/2016 Ot 174.9 MALIGN NEOPL BREAST NOS 05/28/2016 Ot 793.81 MAMMOGRAPHIC MICROCLACIFICATION 05/28/2016 Ot 793.81 MAMMOGRAPHIC MICROCLACIFICATION 05/28/2016 Ot V64.3 NO PROC FOR REASONS NEC 05/28/2016 Ot 611.72 LUMP OR MASS IN BREAST 05/28/2016 Ot V72.83 EXAM PRE- OPERATIVE NEC 05/28/2016 Ot V74.8 SCREEN- BACTERIAL DIS NEC 05/28/2016 Ot 611.89 OTHER SPECIFIED [...] CYSTIC KIDNEY DISEASE, UNSPECIFIED 05/28/2016 JOSELUIS BORGES FINANCIAL AID Ot 174.9 MALIGN NEOPL BREAST NOS 05/28/2016 JOSELUIS BORGES FINANCIAL AID Ot V67.9 FOLLOW-UP EXAM NOS 05/28/2016 ERVIN OSBORNE MD Ot 593.2 CYST OF KIDNEY, ACQUIRED 05/28/2016 NIRAV MOULTON, ARI Ot V72.84 EXAM PRE-OPERATIVE NOS 05/28/2016 ERVIN OSBORNE MD Ot 593.2 CYST OF KIDNEY, ACQUIRED 05/28/2016 FAITH TURK Ot 174.9 MALIGN NEOPL BREAST NOS 05/28/2016 FAITH TURK Ot V67.9 FOLLOW-UP EXAM NOS 05/28/2016 FAITH TURK Ot 793.80 UNSPEC ABNORMAL MAMMOGRAM 05/28/2016 RAVEN LEO ATTRACTION ATTENDANT Ot 729.5 PAIN IN LIMB 05/28/2016 RAVEN LEO ATTRACTION ATTENDANT Ot 786.05 SHORTNESS OF BREATH 05/28/2016 ERVIN [...] MON 05/28/2016 MEGHA PANDA MD Ot Z79.2 SENIOR LIVING (CURRENT) USE OF ANTIBIOTICS 05/28/2016 AGATHA ESPINAL [...] AFTER TRTMT FO 05/28/2016 BORGES, HILAH S FINANCIAL AID Ot Z79.01 SPOOL WINDER (CURRENT) USE OF ANTICOAGULANT 05/28/2016 JOSELUIS BORGES FINANCIAL AID Ot Z85.3 PERSONAL HISTORY OF MALIGNANT NEOPLASM O 05/28/2016 JOSELUIS BORGESP Ot Z86.718 PERSONAL HISTORY OF OTHER VENOUS THROMBO 05/28/2016 JOSELUIS BORGES FINANCIAL AID Ot Z90.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 05/28/2016 DANY ESPINAL DO Ot 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 05/28/2016 DANY ESPINAL DO Ot 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, 05/28/2016 JAYE MENG APRN Ot I48.2 CHRONIC ATRIAL FIBRILLATION 05/28/2016 JAYE MENG APRN Ot I50.9 HEART FAILURE, UNSPECIFIED 05/28/2016 JAYE MENG APRN Ot K59.00 CONSTIPATION, UNSPECIFIED 05/28/2016 JAYE MENG APRN Ot R07.89 OTHER CHEST PAIN 05/30/2016 JOSELUIS BORGES FINANCIAL AID Ot Z08 ENCNTR FOR FOLLOW-UP EXAM AFTER TRTMT FO 05/30/2016 JOSELUIS BORGES FINANCIAL AID Ot Z79.01 SENIOR LIVING (CURRENT) USE OF ANTICOAGULANT 05/30/2016 JOSELUIS BORGES FINANCIAL AID Ot Z85.3 PERSONAL HISTORY OF MALIGNANT NEOPLASM O 05/30/2016 JOSELUIS BORGES FINANCIAL AID Ot Z86.718 PERSONAL HISTORY OF OTHER VENOUS THROMBO 05/30/2016 JOSELUIS BORGES FINANCIAL AID Ot Z90.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 05/31/2016 JAYE MENG ATTRACTION ATTENDANT Ot I48.2 CHRONIC ATRIAL FIBRILLATION 05/31/2016 JAYE MENG ATTRACTION ATTENDANT Ot I50.9 HEART FAILURE, UNSPECIFIED 05/31/2016 JAYE MENG APRN Ot K59.00 CONSTIPATION, UNSPECIFIED 05/31/2016 JAYE MENG ATTRACTION ATTENDANT Ot R07.89 OTHER CHEST PAIN 06/07/2016 JOSELUIS BORGES FINANCIAL AID Ot Z08 ENCNTR FOR FOLLOW-UP EXAM AFTER TRTMT FO 06/07/2016 JOSELUIS BORGES FINANCIAL AID Ot Z79.01 SPOOL WINDER (CURRENT) USE OF ANTICOAGULANT 06/07/2016 JOSELUIS BORGES FINANCIAL AID Ot Z85.3 PERSONAL HISTORY OF MALIGNANT NEOPLASM O 06/07/2016 BORGES JOSELUIS Marito GOMEZ Ot Z86.718 PERSONAL HISTORY OF OTHER VENOUS THROMBO 06/07/2016 REDD BORGESCAITIE Marito GOMEZ Ot Z90.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 06/14/2016 DANY ESPINAL DO Ot 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 06/14/2016 DANY ESPINAL DO, Ot 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, 06/25/2016 Ot S05.02XA INJ CONJUNCTIVA AND CORNEAL ABRASION W/O 06/25/2016 Ot W22.8XXA STRIKING AGAINST OR STRUCK BY OTHER OBJE 06/28/2016 DANY ESPINAL DO, Ot 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 06/28/2016 DANY ESPINAL DO, Ot 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, 07/11/2016 Ot 354.9 MONONEURITIS ARM NOS 07/11/2016 Ot 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 07/11/2016 Ot 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 07/11/2016 Ot V10.3 HX OF BREAST MALIGNANCY 07/11/2016 Ot V45.71 ACQUIRED ABSENCE OF BREAST AND NIPPLE 07/11/2016 Ot V58.61 ANTICOAGULANTS,LT,CURRENT USE 07/11/2016 Ot V58.67 LONG-TERM ( CURRENT) USE OF INSULIN 07/11/2016 Ot V58.69 OTH MED,LT, CURRENT USE 07/11/2016 Ot V67.2 CHEMOTHERAPY FOLLOW-UP 07/11/2016 [...] CARPAL TUNNEL SYNDROME 07/11/2016 Ot V72.83 EXAM PRE- OPERATIVE NEC 07/11/2016 Ot V74.8 SCREEN- BACTERIAL DIS NEC 07/11/2016 Ot 250.00 DIAB JT WO COMPL, TYPE II OR UNSPEC TY 07/11/2016 Ot 401.9 HYPERTENSION NOS 07/11/2016 Ot 562.10 DIVERTICULOSIS COLON (W/O MENT OF HEMORR 07/11/2016 Ot 569.89 INTESTINAL DISORDERS NEC 07/11/2016 Ot V10.3 HX OF BREAST MALIGNANCY 07/11/2016 Ot V58.61 ANTICOAGULANTS,LT,CURRENT USE 07/11/2016 Ot V58.69 OTH MED,LT, CURRENT USE 07/11/2016 Ot V76.51 SCREEN MAL NEOP-COLON 07/11/2016 Ot 562.10 DIVERTICULOSIS COLON (W/O MENT OF HEMORR 07/11/2016 Ot 174.9 MALIGN NEOPL BREAST NOS 07/11/2016 Ot 174.9 MALIGN NEOPL BREAST NOS 07/11/2016 Ot V76.11 SCRN MAMMO- HIGH RISK PT, MALIGNANT NEOPL 07/11/2016 Ot 174.9 MALIGN NEOPL BREAST NOS 07/11/2016 Ot 793.81 MAMMOGRAPHIC MICROCLACIFICATION 07/11/2016 Ot 793.81 MAMMOGRAPHIC MICROCLACIFICATION 07/11/2016 Ot V64.3 NO PROC FOR REASONS NEC 07/11/2016 Ot 611.72 LUMP OR MASS IN BREAST 07/11/2016 Ot V72.83 EXAM PRE- OPERATIVE NEC 07/11/2016 Ot V74.8 SCREEN- BACTERIAL DIS NEC 07/11/2016 Ot 611.89 OTHER SPECIFIED DISORDERS OF BREAST 07/11/2016 Ot V67.09 SURGERY FOLLOW-UP, OTHER SURGERY 07/11/2016 MEGHA PANDA MD Ot 786.2 COUGH 07/11/2016 Ot 729.5 PAIN [...] CYSTIC KIDNEY DISEASE, UNSPECIFIED 07/11/2016 JOSELUIS BORGES FINANCIAL AID Ot 174.9 MALIGN NEOPL BREAST NOS 07/11/2016 JOSELUIS BORGES FINANCIAL AID Ot V67.9 FOLLOW-UP EXAM NOS 07/11/2016 [place] [...] 793.80 UNSPEC ABNORMAL MAMMOGRAM 07/11/2016 RAVEN LEO ATTRACTION ATTENDANT Ot 729.5 PAIN IN LIMB 07/11/2016 RAVEN LEO ATTRACTION ATTENDANT Ot 786.05 SHORTNESS OF BREATH 07/11/2016 [place] [...] FAITH TURK Ot V67.2 CHEMOTHERAPY FOLLOW-UP 07/11/2016 ROSALEE, BOBAN N Ot 174.9 MALIGN NEOPL BREAST NOS 07/11/2016 MEGHA PANDA MD Ot 276.1 HYPOSMOLALITY 07/11/2016 MEGHA PANDA MD Ot 250.00 DIAB TJ WO COMPL, TYPE II OR UNSPEC TY 07/11/2016 MEGHA PANDA MD Ot 276.8 HYPOPOTASSEMIA 07/11/2016 MEGHA PANDA MD, Ot 250.00 DIAB TJ WO COMPL, TYPE II OR UNSPEC TY 07/11/2016 MEGHA PANDA MD, Ot V58.69 OT MED,LT,CURRENT USE 07/11/2016 MEGHA PANDA MD, Ot L03.90 CELLULITIS, UNSPECIFIED 07/11/2016 MEGHA PANDA MD, Ot Z51.81 ENCOUNTER FOR THERAPEUTIC DRUG LEVEL MON 07/11/2016 MEGHA PANDA MD, Ot Z79.2 SENIOR LIVING (CURRENT) USE OF ANTIBIOTICS 07/11/2016 AGATHA ESPINAL [...] TRTMT FO 07/11/2016 JOSELUIS BORGES Ot Z79.01 SENIOR LIVING (CURRENT) USE OF ANTICOAGULANT 07/11/2016 JOSELUIS BORGES Ot Z85.3 PERSONAL HISTORY OF MALIGNANT NEOPLASM O 07/11/2016 JOSELUIS BORGES Ot Z86.718 PERSONAL HISTORY OF OTHER VENOUS THROMBO 07/11/2016 JOSELUIS BORGES Ot Z90.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 07/11/2016 DANY ESPINAL DO Ot F02.81 DEMENTIA IN OT DISEASES CLASSD ELSWHR W 07/11/2016 ESPINAL DO, DANY J Ot 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, 07/11/2016 MEGHA PNADA MD Ot L03.90 CELLULITIS, UNSPECIFIED 07/11/2016 MEGHA PANDA MD Ot Z51.81 ENCOUNTER FOR THERAPEUTIC DRUG LEVEL MON 07/11/2016 MEGHA PANDA MD Ot Z79.2 SENIOR LIVING (CURRENT) USE OF ANTIBIOTICS 07/11/2016 MEGHA PANDA MD, Ot L03.90 CELLULITIS, UNSPECIFIED 07/11/2016 MEGHA PANDA MD Ot Z51.81 ENCOUNTER FOR THERAPEUTIC DRUG LEVEL MON 07/11/2016 MEGHA PANDA MD, Ot Z79.2 SPOOL WINDER (CURRENT) USE OF ANTIBIOTICS 08/07/2016 JOSELUIS BORGES FINANCIAL AID Ot Z12.31 ENCNTR SCREEN MAMMOGRAM FOR MALIGNANT NE 08/08/2016 JOSELUIS BORGES FINANCIAL AID Ot Z12.31 ENCNTR SCREEN MAMMOGRAM FOR MALIGNANT NE 08/08/2016 JOSELUIS BORGES FINANCIAL AID Ot Z12.31 ENCNTR SCREEN MAMMOGRAM FOR MALIGNANT NE 08/14/2016 JOSELUIS BORGES FINANCIAL AID Ot R92.8 OTH ABN AND INCONCLUSIVE FINDINGS ON DX 08/15/2016 JOSELUIS BORGES FINANCIAL AID Ot R92.8 OTH ABN AND INCONCLUSIVE FINDINGS ON DX 08/15/2016 JOSELUIS BORGES FINANCIAL AID Ot R92.8 OTH ABN AND INCONCLUSIVE FINDINGS ON DX 08/29/2016 JOSELUIS BORGES FINANCIAL AID Ot Z12.31 ENCNTR SCREEN MAMMOGRAM FOR MALIGNANT NE 09/05/2016 JOSELUIS BORGES FINANCIAL AID Ot R92.8 OTH ABN AND INCONCLUSIVE FINDINGS ON DX 09/05/2016 JOSELUIS BORGES FINANCIAL AID Ot Z12.31 ENCNTR SCREEN MAMMOGRAM FOR MALIGNANT NE 09/12/2016 JOSELUIS BORGES FINANCIAL AID Ot R92.8 OTH ABN AND INCONCLUSIVE FINDINGS [...] CARPAL TUNNEL SYNDROME 02/06/2017 Ot V72.83 EXAM PRE- OPERATIVE NEC 02/06/2017 Ot V74.8 SCREEN- BACTERIAL DIS NEC 02/06/2017 Ot 250.00 DIAB TJ WO COMPL, TYPE II OR UNSPEC TY 02/06/2017 Ot 401.9 HYPERTENSION NOS 02/06/2017 Ot 562.10 DIVERTICULOSIS COLON (W/O MENT OF HEMORR 02/06/2017 Ot 569.89 INTESTINAL DISORDERS NEC 02/06/2017 Ot V10.3 HX OF BREAST MALIGNANCY 02/06/2017 Ot V58.61 ANTICOAGULANTS,LT,CURRENT USE 02/06/2017 Ot V58.69 OTH MED,LT, CURRENT USE 02/06/2017 Ot V76.51 SCREEN MAL NEOP-COLON 02/06/2017 Ot 562.10 DIVERTICULOSIS COLON (W/O MENT OF HEMORR 02/06/2017 Ot 174.9 MALIGN NEOPL BREAST NOS 02/06/2017 Ot 174.9 MALIGN NEOPL BREAST NOS 02/06/2017 Ot V76.11 SCRN MAMMO- HIGH RISK PT, MALIGNANT NEOPL 02/06/2017 Ot 174.9 MALIGN NEOPL BREAST NOS 02/06/2017 Ot 793.81 MAMMOGRAPHIC MICROCLACIFICATION 02/06/2017 Ot 793.81 MAMMOGRAPHIC MICROCLACIFICATION 02/06/2017 Ot V64.3 NO PROC FOR REASONS NEC 02/06/2017 Ot 611.72 LUMP OR MASS IN BREAST 02/06/2017 Ot V72.83 EXAM PRE- OPERATIVE NEC 02/06/2017 Ot V74.8 SCREEN- BACTERIAL DIS NEC 02/06/2017 Ot 611.89 OTHER SPECIFIED [...] CYSTIC KIDNEY DISEASE, UNSPECIFIED 02/06/2017 JOSELUIS BORGES FINANCIAL AID Ot 174.9 MALIGN NEOPL BREAST NOS 02/06/2017 JOSELUIS BORGES FINANCIAL AID Ot V67.9 FOLLOW-UP EXAM NOS 02/06/2017 ERVIN OSBORNE MD Ot 593.2 CYST OF KIDNEY, ACQUIRED 02/06/2017 NIRAV MOULTON, ARI Ot V72.84 EXAM PRE-OPERATIVE NOS 02/06/2017 ERVIN OSBORNE MD Ot 593.2 CYST OF KIDNEY, ACQUIRED 02/06/2017 FAITH TURK Ot 174.9 MALIGN NEOPL BREAST NOS 02/06/2017 FAITH TURK Ot V67.9 FOLLOW-UP EXAM NOS 02/06/2017 FAITH TURK Ot 793.80 UNSPEC ABNORMAL MAMMOGRAM 02/06/2017 RAVEN LEO ATTRACTION ATTENDANT Ot 729.5 PAIN IN LIMB 02/06/2017 RAVEN LEO ATTRACTION ATTENDANT Ot 786.05 SHORTNESS OF BREATH 02/06/2017 ERVIN [...] Ot V58.69 OTH MED,LT,CURRENT USE 02/06/2017 FAITH TURK Ot V67.2 CHEMOTHERAPY FOLLOW-UP 02/06/2017 FAITH TURK N Ot 174.9 MALIGN NEOPL BREAST NOS [...] MON 02/06/2017 MEGHA PANDA MD Ot Z79.2 SENIOR LIVING (CURRENT) USE OF ANTIBIOTICS 02/06/2017 AGATHA ESPINAL Ot N39.0 URINARY TRACT INFECTION, SITE NOT SPECIF 02/06/2017 DANY ESPINAL DO Ot E03.9 HYPOTHYROIDISM, UNSPECIFIED 02/06/2017 DANY ESPINAL DO Ot I48.2 CHRONIC ATRIAL FIBRILLATION 02/06/2017 DANY ESPINAL DO Ot N39.0 URINARY TRACT INFECTION, SITE NOT SPECIF 02/06/2017 DANY ESPINAL DO, Ot N39.0 URINARY TRACT INFECTION, SITE NOT SPECIF 02/06/2017 Ot 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 02/06/2017 Ot N28.1 CYST OF KIDNEY, ACQUIRED 02/06/2017 JOSELUIS BORGES Ot Z08 ENCNTR FOR FOLLOW-UP EXAM AFTER TRTMT FO 02/06/2017 JOSELUIS BORGES Ot Z79.01 SENIOR LIVING (CURRENT) USE OF ANTICOAGULANT 02/06/2017 JOSELUIS BORGES [...] DO Ot 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, 02/06/2017 JOSELUIS BORGES FINANCIAL AID Ot R92.8 OT ABN AND INCONCLUSIVE FINDINGS [...] MD Ot I10 ESSENTIAL (PRIMARY) HYPERTENSION 02/27/2017 SHEELA BANUELOS MD Ot I48.0 PAROXYSMAL ATRIAL FIBRILLATION 02/27/2017 SHEELA BANUELOS MD Ot R07.9 CHEST PAIN, UNSPECIFIED 03/05/2017 SANGEETA MARSAHLL MD Ot E66.9 OBESITY, UNSPECIFIED 03/05/2017 SANGEETA [...] MARSHALL MD Ot I16.1 HYPERTENSIVE EMERGENCY 03/05/2017 SANGETEA MARSHALL MD Ot I25.10 ATHSCL HEART DISEASE OF [place] CORONARY 03/05/2017 SANGEETA MARSHALL MD Ot I27.2 [...] MD Ot I25.10 ATHSCL HEART DISEASE OF [place] CORONARY 03/05/2017 SANGEETA MARSHALL MD Ot I27.2 [...] HISTORY OF OTHER VENOUS THROMBO 03/06/2017 BLANCHO DPMFARNCK Ot M21.6X1 OTHER ACQUIRED DEFORMITIES OF RIGHT FOOT 03/06/2017 BLANCHO DPMFRANCK Ot Z01.818 ENCOUNTER FOR OTHER PREPROCEDURAL EXAMIN 03/06/2017 YASSINENCHO DPFRANCK Aleman Ot Z11.2 ENCOUNTER FOR SCREENING FOR OTHER [...] V58.61 ANTICOAGULANTS,LT,CURRENT USE 03/13/2017 Ot V58.69 OTH MED,LT, CURRENT USE 03/13/2017 Ot V76.51 SCREEN MAL NEOP-COLON 03/13/2017 Ot 562.10 DIVERTICULOSIS COLON (W/O MENT OF HEMORR 03/13/2017 Ot 174.9 MALIGN NEOPL BREAST NOS 03/13/2017 Ot 174.9 MALIGN NEOPL BREAST NOS 03/13/2017 Ot V76.11 SCRN MAMMO- HIGH RISK PT, MALIGNANT NEOPL 03/13/2017 Ot 174.9 MALIGN NEOPL BREAST NOS 03/13/2017 Ot 793.81 MAMMOGRAPHIC MICROCLACIFICATION 03/13/2017 Ot 793.81 MAMMOGRAPHIC MICROCLACIFICATION 03/13/2017 Ot V64.3 NO PROC FOR REASONS NEC 03/13/2017 Ot 611.72 LUMP OR MASS IN BREAST 03/13/2017 Ot V72.83 EXAM PRE- OPERATIVE NEC 03/13/2017 Ot V74.8 SCREEN- BACTERIAL DIS NEC 03/13/2017 Ot 611.89 OTHER SPECIFIED DISORDERS OF BREAST 03/13/2017 Ot V67.09 SURGERY FOLLOW-UP, OTHER SURGERY 03/13/2017 MEGHA PANDA MD Ot 786.2 COUGH 03/13/2017 Ot 729.5 PAIN IN LIMB 03/13/2017 Ot V12.51 HX-VENOUS THROMBOSIS EMBOLISM 03/13/2017 FAITH TURK Ot 174.9 MALIGN NEOPL BREAST NOS 03/13/2017 MEGHA PANDA MD Ot 453.40 ACUTE VENOUS EMBOLISM THROMBOSIS UNSP 03/13/2017 FAITH TURK Ot V10.3 HX OF BREAST MALIGNANCY 03/13/2017 FAITH TURK Ot V67.9 FOLLOW-UP EXAM NOS 03/13/2017 ERVIN OSBORNE MD Ot 593.9 RENAL URETERAL DIS NOS 03/13/2017 [place] MOULTON, ERVIN Lanier Ot 753.10 CYSTIC KIDNEY DISEASE, UNSPECIFIED 03/13/2017 JOSELUIS BORGES FINANCIAL AID Ot 174.9 MALIGN NEOPL BREAST NOS 03/13/2017 JOSELUIS BORGES FINANCIAL AID Ot V67.9 FOLLOW-UP EXAM NOS 03/13/2017 ERVIN OSBORNE MD Ot 593.2 CYST OF KIDNEY, ACQUIRED 03/13/2017 NIRAV MOULTON, ARI Ot V72.84 EXAM PRE-OPERATIVE NOS 03/13/2017 [place] MOULTON, ERVIN Lanier Ot 593.2 CYST OF KIDNEY, ACQUIRED 03/13/2017 ROSALEEFAITH Ot 174.9 MALIGN NEOPL BREAST NOS 03/13/2017 FAITH TURK Evy Ot V67.9 FOLLOW-UP EXAM NOS 03/13/2017 ROSALEE EDNASUJATA Evy Ot 793.80 UNSPEC ABNORMAL MAMMOGRAM 03/13/2017 RAVEN LEO ATTRACTION ATTENDANT Ot 729.5 PAIN IN LIMB 03/13/2017 RAVEN LEO ATTRACTION ATTENDANT Ot 786.05 SHORTNESS OF BREATH 03/13/2017 [place] MOULTON, ERVIN Lanier Ot 593.2 CYST OF KIDNEY, ACQUIRED 03/13/2017 FARZAD MOULTON, MEGHA Ku Ot 428.0 CONGESTIVE HEART FAILURE NOS 03/13/2017 [place] MOULTON, ERVIN Lanier Ot 753.10 CYSTIC KIDNEY DISEASE, UNSPECIFIED 03/13/2017 ROSALEEEDNA RABAGOSUJATA Evy Ot V10.3 HX OF BREAST MALIGNANCY 03/13/2017 ROSALEEFAITH Ot V12.51 HX-VENOUS THROMBOSIS EMBOLISM 03/13/2017 FAITH TURK Ot V12.55 PERSONAL HISTORY OF PULMONARY EMBOLISM 03/13/2017 FAITH TURK Ot V45.71 ACQUIRED ABSENCE OF BREAST AND NIPPLE 03/13/2017 ROSALEEFAITH Ot V58.61 ANTICOAGULANTS,LT,CURRENT USE 03/13/2017 EDNA TURKSUJATA Evy Ot V58.69 OTH MED,LT,CURRENT USE 03/13/2017 ROSALEEFAITH Ot V67.2 CHEMOTHERAPY FOLLOW-UP 03/13/2017 ROSALEEFAITH RABAGO Ot 174.9 MALIGN NEOPL BREAST NOS 03/13/2017 [...] PANDA MD Ot L03.90 CELLULITIS, UNSPECIFIED 03/13/2017 MEGHA PANDA MD Ot Z51.81 ENCOUNTER FOR THERAPEUTIC DRUG LEVEL MON 03/13/2017 MEGHA PANDA MD Ot Z79.2 SENIOR LIVING (CURRENT) USE OF ANTIBIOTICS 03/13/2017 AGATHA ESPINAL [...] TRTMT FO 03/13/2017 JOSELUIS BORGES Ot Z79.01 SENIOR LIVING (CURRENT) USE OF ANTICOAGULANT 03/13/2017 JOSELUIS BORGES Ot Z85.3 PERSONAL HISTORY OF MALIGNANT NEOPLASM O 03/13/2017 JOSELUIS BORGES Ot Z86.718 PERSONAL HISTORY OF OTHER VENOUS THROMBO 03/13/2017 JOSELUIS BORGES Ot Z90.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 03/13/2017 JOSELUIS BORGES Ot Z12.31 ENCNTR SCREEN MAMMOGRAM FOR MALIGNANT NE 03/13/2017 DANY ESPINAL DO Ot F02.81 DEMENTIA IN OT DISEASES CLASSD ELSWHR W 03/13/2017 DANY ESPINAL DO Ot 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, 03/13/2017 JOSELUIS BORGES Ot R92.8 OT ABN AND INCONCLUSIVE FINDINGS ON DX 03/13/2017 SHEELA BANUELOS MD Ot E78.2 MIXED HYPERLIPIDEMIA 03/13/2017 SHEELA BANUELOS MD, Ot G25.0 ESSENTIAL TREMOR 03/13/2017 SHEELA BANUELOS MD Ot I10 ESSENTIAL (PRIMARY) HYPERTENSION 03/13/2017 LAKISHA MD, BASHAR J Ot I48.0 PAROXYSMAL ATRIAL FIBRILLATION 03/13/2017 SHEELA BANUELOS MD Ot R07.9 CHEST PAIN, UNSPECIFIED 03/13/2017 JOAOHO DPAsh, FRANCK Maximino Ot E11.9 TYPE 2 DIABETES MELLITUS WITHOUT COMPLIC 03/13/2017 JOAOHO DPAsh, FRANCK Stanton Ot I10 ESSENTIAL (PRIMARY) HYPERTENSION 03/13/2017 BLANCHO DPM, FRANCK Stanton Ot M20.41 OTHER HAMMER TOE(S) (ACQUIRED), RIGHT FO 03/13/2017 BLANCHO DPM, FRANCK Maximino Ot M21.6X1 OTHER ACQUIRED DEFORMITIES OF RIGHT FOOT 03/13/2017 BLAXOCHILTHO DPM, FRANCK Stanton Ot Z79.4 SENIOR LIVING (CURRENT) USE OF INSULIN 03/13/2017 JOAOHO DPAsh, FRANCK Maximino Ot Z79.84 SPOOL WINDER (CURRENT) USE OF ORAL HYPOGLYC 03/13/2017 JOAOHO DPAsh FRANCK Stanton Ot Z79.899 OTHER SPOOL WINDER (CURRENT) DRUG THERAPY 03/28/2017 Ot 250.00 DIAB TJ WO COMPL, TYPE II OR UNSPEC TY 03/28/2017 Ot 401.9 HYPERTENSION NOS 03/28/2017 Ot 562.10 DIVERTICULOSIS COLON (W/O MENT OF HEMORR 03/28/2017 Ot 569.89 INTESTINAL DISORDERS NEC 03/28/2017 Ot V10.3 HX OF BREAST MALIGNANCY 03/28/2017 Ot V58.61 ANTICOAGULANTS,LT,CURRENT USE 03/28/2017 Ot V58.69 OTH MED,LT, CURRENT USE 03/28/2017 Ot V76.51 SCREEN MAL NEOP-COLON 03/28/2017 Ot 562.10 DIVERTICULOSIS COLON (W/O MENT OF HEMORR 03/28/2017 Ot 174.9 MALIGN NEOPL BREAST NOS 03/28/2017 Ot 174.9 MALIGN NEOPL BREAST NOS 03/28/2017 Ot V76.11 SCRN MAMMO- HIGH RISK PT, MALIGNANT NEOPL 03/28/2017 Ot 174.9 MALIGN NEOPL BREAST NOS 03/28/2017 Ot 793.81 MAMMOGRAPHIC MICROCLACIFICATION 03/28/2017 Ot 793.81 MAMMOGRAPHIC MICROCLACIFICATION 03/28/2017 Ot V64.3 NO PROC FOR REASONS NEC 03/28/2017 Ot 611.72 LUMP OR MASS IN BREAST 03/28/2017 Ot V72.83 EXAM PRE- OPERATIVE NEC 03/28/2017 Ot V74.8 SCREEN- BACTERIAL DIS NEC 03/28/2017 Ot 611.89 OTHER SPECIFIED DISORDERS OF BREAST 03/28/2017 Ot V67.09 SURGERY FOLLOW-UP, OTHER SURGERY 03/28/2017 MEGHA PANDA MD Ot 786.2 COUGH 03/28/2017 Ot 729.5 PAIN IN LIMB 03/28/2017 Ot V12.51 HX-VENOUS THROMBOSIS EMBOLISM 03/28/2017 FAITH TURK Ot 174.9 MALIGN NEOPL BREAST NOS 03/28/2017 MEGAH PANDA MD Ot 453.40 ACUTE VENOUS EMBOLISM THROMBOSIS UNSP 03/28/2017 FAITH TURK Ot V10.3 HX OF BREAST MALIGNANCY 03/28/2017 FAITH TURK Ot V67.9 FOLLOW-UP EXAM NOS 03/28/2017 ERIVN OSBORNE MD Ot 593.9 RENAL URETERAL DIS NOS 03/28/2017 ERVIN OSBORNE MD Ot 753.10 CYSTIC KIDNEY DISEASE, UNSPECIFIED 03/28/2017 JOSELUIS BORGES FINANCIAL AID Ot 174.9 MALIGN NEOPL BREAST NOS 03/28/2017 JOSELUIS BORGES FINANCIAL AID Ot V67.9 FOLLOW-UP EXAM NOS 03/28/2017 ERVIN [...] Ot 593.2 CYST OF KIDNEY, ACQUIRED 03/28/2017 FRANCK LARSON DPM Ot M79.604 PAIN IN RIGHT LEG 04/19/2017 FRANCK LARSON DPM Ot M79.604 PAIN IN RIGHT LEG 04/25/2017 SARAH NELLY CHAUHAN K Ot I51.7 CARDIOMEGALY 04/25/2017 SARAH NELLY CHAUHAN K Ot N39.0 URINARY TRACT INFECTION, SITE NOT SPECIF 04/25/2017 SARAH NELLY CHAUHAN K Ot R09.89 OTH SYMPTOMS AND SIGNS INVOLVING THE CIR 04/25/2017 AGATHA ESPINAL FINANCIAL AID Ot N28.1 CYST OF KIDNEY, ACQUIRED 04/25/2017 AGATHA ESPINAL FINANCIAL AID Ot R10.2 PELVIC AND PERINEAL PAIN 04/26/2017 [place] MOULTON, ERVIN Lanier Ot N28.1 CYST OF KIDNEY, ACQUIRED 04/26/2017 MARSHA GALLOWAYM, FRANCK Stanton Ot M79.604 PAIN IN RIGHT LEG 04/26/2017 [place] MOULTON, ERVIN A Ot N28.1 CYST OF KIDNEY, ACQUIRED 04/26/2017 [place] MOULTON, ERVIN A Ot N28.1 CYST OF KIDNEY, ACQUIRED 04/26/2017 [place] MOULTON, ERVIN A Ot N28.1 CYST OF KIDNEY, ACQUIRED 05/10/2017 FAITH TURK Ot E11.9 TYPE 2 DIABETES MELLITUS WITHOUT COMPLIC 05/10/2017 FAITH TURK Ot E78.5 HYPERLIPIDEMIA, UNSPECIFIED 05/10/2017 FAITH TURK Ot I10 ESSENTIAL (PRIMARY) HYPERTENSION 05/10/2017 FAITH TURK Ot Z08 ENCNTR FOR FOLLOW-UP EXAM AFTER TRTMT FO 05/10/2017 FAITH TURK Ot Z79.01 SENIOR LIVING (CURRENT) USE OF ANTICOAGULANT 05/10/2017 FAITH TURK Ot Z79.4 SPOOL WINDER (CURRENT) USE OF INSULIN 05/10/2017 FAITH TURK Ot Z85.3 PERSONAL HISTORY OF MALIGNANT NEOPLASM O 05/10/2017 FAITH TURK Ot Z86.718 PERSONAL HISTORY OF OTHER VENOUS THROMBO 05/10/2017 FAITH TURK Ot Z90.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 05/10/2017 FAITH TURK Ot Z92.21 PERSONAL HISTORY OF ANTINEOPLASTIC CHEMO 05/14/2017 AGATHA ESPINAL FINANCIAL AID Ot N28.1 CYST OF KIDNEY, ACQUIRED 05/14/2017 AGATHA ESPINALP Ot R10.2 PELVIC AND PERINEAL PAIN 05/14/2017 [place] MOULTON, ERVIN A Ot N28.1 CYST OF KIDNEY, ACQUIRED 05/24/2017 [place] MOULTON, ERVIN A Ot N28.1 CYST OF KIDNEY, ACQUIRED 05/29/2017 YANG VALERA MD Ot K62.5 HEMORRHAGE OF ANUS AND RECTUM 05/29/2017 MORAIMA MOULTON, YANG Ku Ot Z01.818 ENCOUNTER FOR OTHER PREPROCEDURAL EXAMIN 05/30/2017 YANG VALERA MD Ot K62.5 HEMORRHAGE OF ANUS AND RECTUM 05/30/2017 MORAIMA MOULTON, YANG Ku Ot Z01.818 ENCOUNTER FOR OTHER PREPROCEDURAL EXAMIN 05/31/2017 YANG VALERA MD Ot D12.3 BENIGN NEOPLASM OF TRANSVERSE COLON 05/31/2017 YANG VALERA MD Ot E11.9 TYPE 2 DIABETES MELLITUS WITHOUT COMPLIC 05/31/2017 YANG VALERA MD Ot I10 ESSENTIAL (PRIMARY) HYPERTENSION 05/31/2017 YANG VALERA MD Ot I48.0 PAROXYSMAL ATRIAL FIBRILLATION 05/31/2017 YANG VALERA MD Ot K57.30 DVRTCLOS OF LG INT W/O PERFORATION OR AB 05/31/2017 YANG VALERA MD Ot K62.5 HEMORRHAGE OF ANUS AND RECTUM 05/31/2017 YANG VALERA MD Ot Z79.899 OTHER SENIOR LIVING (CURRENT) DRUG THERAPY 06/04/2017 YANG VALERA MD Ot D12.3 BENIGN NEOPLASM OF TRANSVERSE COLON 06/04/2017 YANG VALERA MD Ot E11.9 TYPE 2 DIABETES MELLITUS WITHOUT COMPLIC 06/04/2017 YANG VALERA MD Ot I10 ESSENTIAL (PRIMARY) HYPERTENSION 06/04/2017 YANG VALERA MD Ot I48.0 PAROXYSMAL ATRIAL FIBRILLATION 06/04/2017 YANG VALERA MD Ot K57.30 DVRTCLOS OF LG INT W/O PERFORATION OR AB 06/04/2017 YANG VALERA MD Ot K62.5 HEMORRHAGE OF ANUS AND RECTUM 06/04/2017 YANG VALERA MD Ot Z79.899 OTHER SPOOL WINDER (CURRENT) DRUG THERAPY 06/13/2017 AGATHA ESPINAL FINANCIAL AID Ot N28.1 CYST OF KIDNEY, ACQUIRED 06/13/2017 AGATHA ESPINAL FINANCIAL AID Ot R10.2 PELVIC AND PERINEAL PAIN 06/17/2017 ROSALEE EDNASUJATA Evy Ot E11.9 TYPE 2 DIABETES MELLITUS WITHOUT COMPLIC 06/17/2017 ROSALEE EDNASUJATA Evy Ot E78.5 HYPERLIPIDEMIA, UNSPECIFIED 06/17/2017 ROSALEEEDNA RABAGOSUJATA Evy Ot I10 ESSENTIAL (PRIMARY) HYPERTENSION 06/17/2017 FAITH TURK Ot Z08 ENCNTR FOR FOLLOW-UP EXAM AFTER TRTMT FO 06/17/2017 FAITH TURK Ot Z79.01 SPOOL WINDER (CURRENT) USE OF ANTICOAGULANT 06/17/2017 FAITH TURK Ot Z79.4 SPOOL WINDER (CURRENT) USE OF INSULIN 06/17/2017 FAITH TURK Ot Z85.3 PERSONAL HISTORY OF MALIGNANT NEOPLASM O 06/17/2017 FAITH TURK Ot Z86.718 PERSONAL HISTORY OF OTHER VENOUS THROMBO 06/17/2017 FAITH TURK Ot Z90.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 06/17/2017 FAITH TURK Ot Z92.21 PERSONAL HISTORY OF ANTINEOPLASTIC CHEMO 06/25/2017 Ot S05.02XA INJ CONJUNCTIVA AND CORNEAL ABRASION W/O 06/25/2017 Ot W22.8XXA STRIKING AGAINST OR STRUCK BY OTHER OBJE 06/26/2017 FAITH TURK Ot E11.9 TYPE 2 DIABETES MELLITUS WITHOUT COMPLIC 06/26/2017 FAITH TURK Ot E78.5 HYPERLIPIDEMIA, UNSPECIFIED 06/26/2017 FAITH TURK Ot I10 ESSENTIAL (PRIMARY) HYPERTENSION 06/26/2017 FAITH TURK Ot Z08 ENCNTR FOR FOLLOW-UP EXAM AFTER TRTMT FO 06/26/2017 FAITH TURK Ot Z79.01 SENIOR LIVING (CURRENT) USE OF ANTICOAGULANT 06/26/2017 FAITH TURK Ot Z79.4 SPOOL WINDER (CURRENT) USE OF INSULIN 06/26/2017 FAITH TURK Ot Z85.3 PERSONAL HISTORY OF MALIGNANT NEOPLASM O 06/26/2017 FAITH TURK Ot Z86.718 PERSONAL HISTORY OF OTHER VENOUS THROMBO 06/26/2017 FAITH TURK Ot Z90.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 06/26/2017 ROSALEEFAITH Ot Z92.21 PERSONAL HISTORY OF ANTINEOPLASTIC CHEMO 07/04/2017 FAITH TURK Ot Z12.31 ENCNTR SCREEN MAMMOGRAM FOR MALIGNANT NE 07/26/2017 Ot S05.02XA INJ CONJUNCTIVA AND CORNEAL ABRASION W/O 07/26/2017 Ot W22.8XXA STRIKING AGAINST OR STRUCK BY OTHER OBJE 07/26/2017 SARAH DO NELLY K Ot I51.7 CARDIOMEGALY 07/26/2017 SARAH DO NELLY K Ot N39.0 URINARY TRACT INFECTION, SITE NOT SPECIF 07/26/2017 SARAH DO NELLY K Ot R09.89 OTH SYMPTOMS AND SIGNS INVOLVING THE CIR 08/07/2017 FAITH TURK Ot E11.9 TYPE 2 DIABETES MELLITUS WITHOUT COMPLIC 08/07/2017 FAITH TURK Ot E78.5 HYPERLIPIDEMIA, UNSPECIFIED 08/07/2017 FAITH TURK Ot I10 ESSENTIAL (PRIMARY) HYPERTENSION 08/07/2017 FAITH TURK Ot Z08 ENCNTR FOR FOLLOW-UP EXAM AFTER TRTMT FO 08/07/2017 FAITH TURK Ot Z79.01 SENIOR LIVING (CURRENT) USE OF ANTICOAGULANT 08/07/2017 FAITH TURK Ot Z79.4 SENIOR LIVING (CURRENT) USE OF INSULIN 08/07/2017 FAITH TURK Ot Z85.3 PERSONAL HISTORY OF MALIGNANT NEOPLASM O 08/07/2017 FAITH TURK Ot Z86.718 PERSONAL HISTORY OF OTHER VENOUS THROMBO 08/07/2017 FAITH TURK Ot Z90.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 08/07/2017 FAITH TURK Ot Z92.21 PERSONAL HISTORY OF ANTINEOPLASTIC CHEMO 08/09/2017 FAITH TURK Ot R92.8 OTH ABN AND INCONCLUSIVE FINDINGS ON DX 08/16/2017 KO KENDRICK DO Ot M51.36 OTHER INTERVERTEBRAL DISC DEGENERATION, 08/23/2017 KO KENDRICK DO Ot M51.36 OTHER INTERVERTEBRAL DISC DEGENERATION, 08/30/2017 FAITH TURK Ot R92.8 OTH ABN AND INCONCLUSIVE FINDINGS ON DX 09/04/2017 FLAKITA MOULTON, ARVIND Aleman Ot E11.9 TYPE 2 DIABETES MELLITUS WITHOUT COMPLIC 09/04/2017 FLAKITA MOULTON, ARVIND Aleman Ot E78.5 HYPERLIPIDEMIA, UNSPECIFIED 09/04/2017 FLAKITA MOULTON, ARVIND Aleman Ot F31.9 BIPOLAR DISORDER, UNSPECIFIED 09/04/2017 FLAKITA MOULTON, ARVIND Aleman Ot G25.0 ESSENTIAL TREMOR 09/04/2017 ARVIND BOGGS MD Ot G47.33 OBSTRUCTIVE SLEEP APNEA (ADULT) (PEDIATR 09/04/2017 FLAKITA MOULTON, ARVIND Aleman Ot I10 ESSENTIAL (PRIMARY) HYPERTENSION 09/04/2017 FLAKITA MOULTON, ARVIND Aleman Ot I27.20 PULMONARY HYPERTENSION, UNSPECIFIED 09/04/2017 FLAKITA MOULTON, ARVIND Aleman Ot M79.7 FIBROMYALGIA 09/04/2017 ARVIND BOGGS MD Ot R51 HEADACHE 09/04/2017 ARVIND BOGGS MD Ot Z79.4 SPOOL WINDER (CURRENT) USE OF INSULIN 09/04/2017 ARVIND BOGGS MD Ot Z79.899 OTHER SPOOL WINDER (CURRENT) DRUG THERAPY 09/11/2017 ARVIND BOGGS MD Ot E11.9 TYPE 2 DIABETES MELLITUS WITHOUT COMPLIC 09/11/2017 ARVIND BOGGS MD Ot E78.5 HYPERLIPIDEMIA, UNSPECIFIED 09/11/2017 ARVIND BOGGS MD Ot F31.9 BIPOLAR DISORDER, UNSPECIFIED 09/11/2017 ARVIND BOGGS MD Ot G25.0 ESSENTIAL TREMOR 09/11/2017 ARVIND BOGGS MD Ot G47.33 OBSTRUCTIVE SLEEP APNEA (ADULT) (PEDIATR 09/11/2017 ARVIND BOGGS MD Ot I10 ESSENTIAL (PRIMARY) HYPERTENSION 09/11/2017 ARVIND BOGGS MD Ot I27.20 PULMONARY HYPERTENSION, UNSPECIFIED 09/11/2017 ARVIND BOGGS MD Ot M79.7 FIBROMYALGIA 09/11/2017 ARVIND BOGGS MD Ot R51 HEADACHE 09/11/2017 ARVIND BOGGS MD Ot Z79.4 SPOOL WINDER (CURRENT) USE OF INSULIN 09/11/2017 ARVIND BOGGS MD Ot Z79.899 OTHER SPOOL WINDER (CURRENT) DRUG THERAPY 09/14/2017 DANY ESPINAL DO Ot D72.829 ELEVATED WHITE BLOOD CELL COUNT, UNSPECI 09/14/2017 DANY ESPINAL DO Ot E11.9 TYPE 2 DIABETES MELLITUS WITHOUT COMPLIC 09/14/2017 DANY ESPINAL DO, Ot E66.9 OBESITY, UNSPECIFIED 09/14/2017 DANY ESPINAL DO, Ot E78.5 HYPERLIPIDEMIA, UNSPECIFIED 09/14/2017 DANY ESPINAL DO, Ot F31.9 BIPOLAR DISORDER, UNSPECIFIED 09/14/2017 DANY ESPINAL DO, Ot I25.10 ATHSCL HEART DISEASE OF [place] CORONARY 09/14/2017 DANY ESPINAL DO, Ot I27.20 PULMONARY HYPERTENSION, UNSPECIFIED 09/14/2017 DANY ESPINAL DO, Ot I48.2 CHRONIC ATRIAL FIBRILLATION 09/14/2017 DANY ESPINAL DO, Ot I51.7 CARDIOMEGALY 09/14/2017 DANY ESPINAL DO, Ot J44.9 CHRONIC OBSTRUCTIVE PULMONARY DISEASE, U 09/14/2017 DANY ESPINAL DO, Ot K59.00 CONSTIPATION, UNSPECIFIED 09/14/2017 DANY ESPINAL DO, Ot N39.0 URINARY TRACT INFECTION, SITE NOT SPECIF 09/14/2017 DANY ESPINAL DO, Ot R07.9 CHEST PAIN, UNSPECIFIED 09/14/2017 DANY ESPINAL DO, Ot Z68.30 BODY MASS INDEX (BMI) 30.0-30.9, ADULT 09/14/2017 DANY ESPINAL DO, Ot Z79.01 SPOOL WINDER (CURRENT) USE OF ANTICOAGULANT 09/14/2017 DANY ESPINAL DO, Ot Z79.4 SPOOL WINDER (CURRENT) USE OF INSULIN 09/14/2017 DANY ESPINAL DO, Ot Z79.899 OTHER SENIOR LIVING (CURRENT) DRUG THERAPY 09/14/2017 DANY ESPINAL DO, Ot Z85.3 PERSONAL HISTORY OF MALIGNANT NEOPLASM O 09/14/2017 DANY ESPINAL DO, Ot Z86.718 PERSONAL HISTORY OF OTHER VENOUS THROMBO 09/14/2017 DANY ESPINAL DO, Ot Z90.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 09/14/2017 DANY ESPINAL DO, Ot Z90.81 ACQUIRED ABSENCE OF SPLEEN 09/16/2017 FAITH TURK Ot R92.8 OTH ABN AND INCONCLUSIVE FINDINGS ON DX 02/03/2018 JOSELUIS BORGES Ot R92.8 OTH ABN AND INCONCLUSIVE FINDINGS ON DX 02/03/2018 Ot 611.89 OTHER SPECIFIED DISORDERS OF BREAST 02/03/2018 Ot V67.09 SURGERY FOLLOW-UP, OTHER SURGERY 02/03/2018 FARZAD MOULTON, MEGHA Ku Ot 786.2 COUGH 02/03/2018 Ot 729.5 PAIN IN LIMB 02/03/2018 Ot V12.51 HX-VENOUS THROMBOSIS EMBOLISM 02/03/2018 FAITH TURK Ot 174.9 MALIGN NEOPL BREAST NOS 02/03/2018 FARZAD MOULTON, MEGHA Ku Ot 453.40 ACUTE VENOUS EMBOLISM THROMBOSIS UNSP 02/03/2018 FAITH TURK Ot V10.3 HX OF BREAST MALIGNANCY 02/03/2018 FAITH TURK Ot V67.9 FOLLOW-UP EXAM NOS 02/03/2018 INDIA MOULTON, ERVIN Lanier Ot 593.9 RENAL URETERAL DIS NOS 02/03/2018 ERVIN OSBORNE MD Ot 753.10 CYSTIC KIDNEY DISEASE, UNSPECIFIED 02/03/2018 JOSELUIS BORGES FINANCIAL AID Ot 174.9 MALIGN NEOPL BREAST NOS 02/03/2018 JOSELUIS BORGES FINANCIAL AID Ot V67.9 FOLLOW-UP EXAM NOS 02/03/2018 ERVIN OSBORNE MD Ot 593.2 CYST OF KIDNEY, ACQUIRED 02/03/2018 NIRAV MOULTON, ARI Ot V72.84 EXAM PRE-OPERATIVE NOS 02/03/2018 ERVIN OSBORNE MD Ot 593.2 CYST OF KIDNEY, ACQUIRED 02/03/2018 FAITH TURK Ot 174.9 MALIGN NEOPL BREAST NOS 02/03/2018 FAITH TURK Ot V67.9 FOLLOW-UP EXAM NOS 02/03/2018 FAITH TURK Ot 793.80 UNSPEC ABNORMAL MAMMOGRAM 02/03/2018 RAVEN LEO ATTRACTION ATTENDANT Ot 729.5 PAIN IN LIMB 02/03/2018 RAVEN LEO ATTRACTION ATTENDANT Ot 786.05 SHORTNESS OF BREATH 02/03/2018 ERVIN OSBORNE MD Ot 593.2 CYST OF KIDNEY, ACQUIRED 02/03/2018 FARZAD MOULTON, MEGHA Ku Ot 428.0 CONGESTIVE HEART FAILURE NOS 02/03/2018 ERVIN OSBORNE MD Ot 753.10 CYSTIC KIDNEY DISEASE, UNSPECIFIED 02/03/2018 FAITH TURK Ot V10.3 HX OF BREAST MALIGNANCY 02/03/2018 FAITH TURK Ot V12.51 HX-VENOUS THROMBOSIS EMBOLISM 02/03/2018 FAITH TURK Ot V12.55 PERSONAL HISTORY OF PULMONARY EMBOLISM 02/03/2018 FAITH TURK Ot V45.71 ACQUIRED ABSENCE OF BREAST AND NIPPLE 02/03/2018 FAITH TURK Ot V58.61 ANTICOAGULANTS,LT,CURRENT USE 02/03/2018 FAITH TURK Ot V58.69 OTH MED,LT,CURRENT USE 02/03/2018 FAITH TURK Ot V67.2 CHEMOTHERAPY FOLLOW-UP 02/03/2018 FAITH TURK Evy Ot 174.9 MALIGN NEOPL BREAST NOS 02/03/2018 MEGHA PANDA MD Ot 276.1 HYPOSMOLALITY 02/03/2018 MEGHA PANDA MD Ot 250.00 DIAB TJ WO COMPL, TYPE II OR UNSPEC TY 02/03/2018 MEGHA PANDA MD Ot 276.8 HYPOPOTASSEMIA 02/03/2018 MEGHA PANDA MD Ot 250.00 DIAB TJ WO COMPL, TYPE II OR UNSPEC TY 02/03/2018 MEGHA PANDA MD Ot V58.69 OTH MED,LT,CURRENT USE 02/03/2018 MEGHA PANDA MD Ot L03.90 CELLULITIS, UNSPECIFIED 02/03/2018 MEGHA PANDA MD Ot Z51.81 ENCOUNTER FOR THERAPEUTIC DRUG LEVEL MON 02/03/2018 MEGHA PANDA MD Ot Z79.2 SPOOL WINDER (CURRENT) USE OF ANTIBIOTICS 02/03/2018 AGATHA ESPINAL Ot N39.0 URINARY TRACT INFECTION, SITE NOT SPECIF 02/03/2018 DANY ESPINAL DO Ot E03.9 HYPOTHYROIDISM, UNSPECIFIED 02/03/2018 DANY ESPINAL DO Ot I48.2 CHRONIC ATRIAL FIBRILLATION 02/03/2018 DANY ESPINAL DO Ot N39.0 URINARY TRACT INFECTION, SITE NOT SPECIF 02/03/2018 DANY ESPINAL DO Ot N39.0 URINARY TRACT INFECTION, SITE NOT SPECIF 02/03/2018 Ot 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 02/03/2018 Ot N28.1 CYST OF KIDNEY, ACQUIRED 02/03/2018 JOSELUIS BORGES Ot Z08 ENCNTR FOR FOLLOW-UP EXAM AFTER TRTMT FO 02/03/2018 BORGES, HILAH S FINANCIAL AID Ot Z79.01 SPOOL WINDER (CURRENT) USE OF ANTICOAGULANT 02/03/2018 JOSELUIS BORGES FINANCIAL AID Ot Z85.3 PERSONAL HISTORY OF MALIGNANT NEOPLASM O 02/03/2018 JOSELUIS BORGES JASON Ot Z86.718 PERSONAL HISTORY OF OTHER VENOUS THROMBO 02/03/2018 JOSELUIS BORGES JASON Ot Z90.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 02/03/2018 BORGESJOSELUIS Devi JASON Ot Z12.31 ENCNTR SCREEN MAMMOGRAM FOR MALIGNANT NE 02/03/2018 DANY ESPINAL DO Ot 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 02/03/2018 DANY ESPINAL DO Ot 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, 02/03/2018 BORGESJOSELUIS Devi JASON Ot R92.8 OTH ABN AND INCONCLUSIVE FINDINGS ON DX 02/03/2018 SHEELA BANUELOS MD Ot E78.2 MIXED HYPERLIPIDEMIA 02/03/2018 SHEELA BANUELOS MD Ot G25.0 ESSENTIAL TREMOR 02/03/2018 SHEELA BANUELOS MD Ot I10 ESSENTIAL (PRIMARY) HYPERTENSION 02/03/2018 SHEELA BANUELOS MD Ot I48.0 PAROXYSMAL ATRIAL FIBRILLATION 02/03/2018 SHEELA BANUELOS MD Ot R07.9 CHEST PAIN, UNSPECIFIED 02/03/2018 MARSHA PAL, FRANCK Stanton Ot M79.604 PAIN IN RIGHT LEG 02/03/2018 AGATHA ESPINAL FINANCIAL AID Ot N28.1 CYST OF KIDNEY, ACQUIRED 02/03/2018 AGATHA ESPINAL FINANCIAL AID Ot R10.2 PELVIC AND PERINEAL PAIN 02/03/2018 [place] MOULTON, ERVIN Lanier Ot N28.1 CYST OF KIDNEY, ACQUIRED 02/03/2018 KO KENDRICK DO Ot M51.36 OTHER INTERVERTEBRAL DISC DEGENERATION, 02/03/2018 FAITH TURK Ot R92.8 OTH ABN AND INCONCLUSIVE FINDINGS ON DX 02/03/2018 FAITH TURK Ot E11.9 TYPE 2 DIABETES MELLITUS WITHOUT COMPLIC 02/03/2018 FAITH TURK Ot E78.5 HYPERLIPIDEMIA, UNSPECIFIED 02/03/2018 FAITH TURK Ot I10 ESSENTIAL (PRIMARY) HYPERTENSION 02/03/2018 FAITH TURK Ot Z08 ENCNTR FOR FOLLOW-UP EXAM AFTER TRTMT FO 02/03/2018 FAITH TURK Ot Z79.01 SENIOR LIVING (CURRENT) USE OF ANTICOAGULANT 02/03/2018 FAITH TURK Ot Z79.4 SENIOR LIVING (CURRENT) USE OF INSULIN 02/03/2018 FAITH TURK Ot Z85.3 PERSONAL HISTORY OF MALIGNANT NEOPLASM O 02/03/2018 FAITH TURK Ot Z86.718 PERSONAL HISTORY OF OTHER VENOUS THROMBO 02/03/2018 FAITH TURK Ot Z90.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 02/03/2018 FAITH TURK Ot Z92.21 PERSONAL HISTORY OF ANTINEOPLASTIC CHEMO 02/03/2018 JOSELUIS BORGES Ot R92.8 OTH ABN AND INCONCLUSIVE FINDINGS ON DX 02/10/2018 Ot 611.89 OTHER SPECIFIED DISORDERS OF BREAST 02/10/2018 Ot V67.09 SURGERY FOLLOW-UP, OTHER SURGERY 02/10/2018 MEGHA PANDA MD Ot 786.2 COUGH 02/10/2018 Ot 729.5 PAIN IN LIMB 02/10/2018 Ot V12.51 HX-VENOUS THROMBOSIS EMBOLISM 02/10/2018 FAITH TURK Ot 174.9 MALIGN NEOPL BREAST NOS 02/10/2018 MEGHA PANDA MD Ot 453.40 ACUTE VENOUS EMBOLISM THROMBOSIS UNSP 02/10/2018 FAITH TURK Ot V10.3 HX OF BREAST MALIGNANCY 02/10/2018 FAITH TURK Ot V67.9 FOLLOW-UP EXAM NOS 02/10/2018 ERVIN OSBORNE MD Ot 593.9 RENAL URETERAL DIS NOS 02/10/2018 ERVIN OSBORNE MD Ot 753.10 CYSTIC KIDNEY DISEASE, UNSPECIFIED 02/10/2018 JOSELUIS BORGES Ot 174.9 MALIGN NEOPL BREAST NOS 02/10/2018 JOSELUIS BORGES Ot V67.9 FOLLOW-UP EXAM NOS 02/10/2018 ERVIN OSBORNE MD Ot 593.2 CYST OF KIDNEY, ACQUIRED 02/10/2018 NIRAV MOULTON, ARI Ot V72.84 EXAM PRE-OPERATIVE NOS 02/10/2018 ERVIN OSBORNE MD Ot 593.2 CYST OF KIDNEY, ACQUIRED 02/10/2018 ROSALEE FAITH Ratliff Ot 174.9 MALIGN NEOPL BREAST NOS 02/10/2018 ROSALEE FAITH Ratliff Ot V67.9 FOLLOW-UP EXAM NOS 02/10/2018 ROSALEE EDNASUJATA Evy Ot 793.80 UNSPEC ABNORMAL MAMMOGRAM 02/10/2018 RAVEN LEO ATTRACTION ATTENDANT Ot 729.5 PAIN IN LIMB 02/10/2018 RAVEN LEO ATTRACTION ATTENDANT Ot 786.05 SHORTNESS OF BREATH 02/10/2018 [place] MOULTON, ERVIN Lanier Ot 593.2 CYST OF KIDNEY, ACQUIRED 02/10/2018 MEGHA PANDA MD Ot 428.0 CONGESTIVE HEART FAILURE NOS 02/10/2018 [place] MOULTON, ERVIN Lanier Ot 753.10 CYSTIC KIDNEY DISEASE, UNSPECIFIED 02/10/2018 ROSALEEFAITH Ot V10.3 HX OF BREAST MALIGNANCY 02/10/2018 FAITH TURK Ot V12.51 HX-VENOUS THROMBOSIS EMBOLISM 02/10/2018 FAITH TURK Ot V12.55 PERSONAL HISTORY OF PULMONARY EMBOLISM 02/10/2018 ROSALEEFAITH Ot V45.71 ACQUIRED ABSENCE OF BREAST AND NIPPLE 02/10/2018 ROSALEEFAITH Ot V58.61 ANTICOAGULANTS,LT,CURRENT USE 02/10/2018 FAITH TURK Ot V58.69 OTH MED,LT,CURRENT USE 02/10/2018 ROSALEEFAITH N Ot V67.2 CHEMOTHERAPY FOLLOW-UP 02/10/2018 ROSALEEFAITH RABAGO Ot 174.9 MALIGN NEOPL BREAST NOS 02/10/2018 MEGHA PANDA MD Ot 276.1 HYPOSMOLALITY 02/10/2018 MEGHA PANDA MD Ot 250.00 DIAB TJ WO COMPL, TYPE II OR UNSPEC TY 02/10/2018 MEGHA PANDA MD Ot 276.8 HYPOPOTASSEMIA 02/10/2018 MEGHA PANDA MD Ot 250.00 DIAB TJ WO COMPL, TYPE II OR UNSPEC TY 02/10/2018 MEGHA PANDA MD Ot V58.69 OTH MED,LT,CURRENT USE 02/10/2018 MEGHA PANDA MD Ot L03.90 CELLULITIS, UNSPECIFIED 02/10/2018 MEGHA PANDA MD Ot Z51.81 ENCOUNTER FOR THERAPEUTIC DRUG LEVEL MON 02/10/2018 MEGHA PANDA MD Ot Z79.2 SENIOR LIVING (CURRENT) USE OF ANTIBIOTICS 02/10/2018 AGATHA ESPINAL Ot N39.0 URINARY TRACT INFECTION, SITE NOT SPECIF 02/10/2018 DANY ESPINAL DO Ot E03.9 HYPOTHYROIDISM, UNSPECIFIED 02/10/2018 DANY ESPINAL DO Ot I48.2 CHRONIC ATRIAL FIBRILLATION 02/10/2018 DANY ESPINAL DO Ot N39.0 URINARY TRACT INFECTION, SITE NOT SPECIF 02/10/2018 DANY ESPINAL DO Ot N39.0 URINARY TRACT INFECTION, SITE NOT SPECIF 02/10/2018 Ot 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 02/10/2018 Ot N28.1 CYST OF KIDNEY, ACQUIRED 02/10/2018 JOSELUIS BORGES Ot Z08 ENCNTR FOR FOLLOW-UP EXAM AFTER TRTMT FO 02/10/2018 JOSELUIS BORGES Ot Z79.01 SENIOR LIVING (CURRENT) USE OF ANTICOAGULANT 02/10/2018 JOSELUIS BORGES Ot Z85.3 PERSONAL HISTORY OF MALIGNANT NEOPLASM O 02/10/2018 JOSELUIS BORGES Ot Z86.718 PERSONAL HISTORY OF OTHER VENOUS THROMBO 02/10/2018 JOSELUIS BORGES Ot Z90.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 02/10/2018 JOSELUIS BORGES Ot Z12.31 ENCNTR SCREEN MAMMOGRAM FOR MALIGNANT NE 02/10/2018 DANY ESPINAL DO Ot F02.81 DEMENTIA IN OT DISEASES CLASSD ELSWHR W 02/10/2018 DANY ESPINAL DO, Ot 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, 02/10/2018 JOSELUIS BORGES Ot R92.8 OT ABN AND INCONCLUSIVE FINDINGS ON DX 02/10/2018 SHEELA BANUELOS MD Ot E78.2 MIXED HYPERLIPIDEMIA 02/10/2018 SHEELA BANUELOS MD Ot G25.0 ESSENTIAL TREMOR 02/10/2018 SHEELA BANUELOS MD Ot I10 ESSENTIAL (PRIMARY) HYPERTENSION 02/10/2018 SHEELA BANUELOS MD Ot I48.0 PAROXYSMAL ATRIAL FIBRILLATION 02/10/2018 SHEELA BANUELOS MD Ot R07.9 CHEST PAIN, UNSPECIFIED 02/10/2018 MARSHA DPM, FRANCK Stanton Ot M79.604 PAIN IN RIGHT LEG 02/10/2018 TEDDYHENRIETTAAGATHA L FINANCIAL AID Ot N28.1 CYST OF KIDNEY, ACQUIRED 02/10/2018 AGATHA ESPINAL FINANCIAL AID Ot R10.2 PELVIC AND PERINEAL PAIN 02/10/2018 [place] MOULTON, ERVIN Lanier Ot N28.1 CYST OF KIDNEY, ACQUIRED 02/10/2018 KO KENDRICK DO Ot M51.36 OTHER INTERVERTEBRAL DISC DEGENERATION, 02/10/2018 FAITH TURK Evy Ot R92.8 OTH ABN AND INCONCLUSIVE FINDINGS ON DX 02/10/2018 FAITH TURK Evy Ot E11.9 TYPE 2 DIABETES MELLITUS WITHOUT COMPLIC 02/10/2018 FAITH TURK Evy Ot E78.5 HYPERLIPIDEMIA, UNSPECIFIED 02/10/2018 FAITH TURK Evy Ot I10 ESSENTIAL (PRIMARY) HYPERTENSION 02/10/2018 ROSALEEFAITH RABAGO Evy Ot Z08 ENCNTR FOR FOLLOW-UP EXAM AFTER TRTMT FO 02/10/2018 ROSALEE FAITH Evy Ot Z79.01 SPOOL WINDER (CURRENT) USE OF ANTICOAGULANT 02/10/2018 ROSALEE FAITH N Ot Z79.4 SENIOR LIVING (CURRENT) USE OF INSULIN 02/10/2018 FAITH TURK Evy Ot Z85.3 PERSONAL HISTORY OF MALIGNANT NEOPLASM O 02/10/2018 ROSALEEFAITH RABAGO Evy Ot Z86.718 PERSONAL HISTORY OF OTHER VENOUS THROMBO 02/10/2018 FAITH TURK Evy Ot Z90.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 02/10/2018 FAITH TURK Evy Ot Z92.21 PERSONAL HISTORY OF ANTINEOPLASTIC CHEMO 02/10/2018 JOSELUIS BORGES FINANCIAL AID Ot R92.8 OTH ABN AND INCONCLUSIVE FINDINGS ON DX 02/11/2018 JOSELUIS BORGES FINANCIAL AID Ot C50.911 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 02/11/2018 JOSELUIS BORGES FINANCIAL AID Ot 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 02/11/2018 JOSELUIS BORGES FINANCIAL AID Ot C50.911 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 02/11/2018 JOSELUIS BORGES FINANCIAL AID Ot 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 02/21/2018 JOSELUIS BORGES FINANCIAL AID Ot C50.911 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 02/21/2018 JOSELUIS BORGES FINANCIAL AID Ot 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 02/21/2018 JOSELUIS BORGES FINANCIAL AID Ot C50.911 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 02/21/2018 JOSELUIS BORGES FINANCIAL AID Ot 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 Procedures Code Description Performed By Performed On 88.72 DX ULTRASOUND-HEART 12/30/2012 99.62 HEART COUNTERSHOCK NEC 12/30/2012 37.22 LEFT HEART CARDIAC CATH 11/14/2014 88.53 LT HEART ANGIOCARDIOGRAM 11/14/2014 88.56 CORONAR ARTERIOGR-2 CATH 11/14/2014 [id number] REPOSITION R UP FEMUR WITH INTRAMED FIX, 09/04/2015 [id number] REMOVAL OF INT FIX FROM R UP FEMUR, EXTE 09/16/2015 [id number] REPOSITION RIGHT UPPER FEMUR WITH INT FI 09/16/2015 [id number] DRAIN OF L UP LEG SUBCU/ FASCIA WITH DRAI 10/17/2015 Results Test Result Range Complete blood count (CBC) with automated white blood cell (WBC) differential - 03/04/17 22:25 Blood leukocytes automated count (number/volume) 12.6 10*3/uL 4.3-11.0 Blood erythrocytes automated count (number/volume) 4.79 10*6/uL 4.35-5.85 Venous blood hemoglobin measurement (mass/volume) 14.2 [...] Automated blood platelet mean volume measurement 12.0 [foz_us] 7.4-10.4 Automated blood neutrophils/100 leukocytes 62 % [...] Serum or plasma sodium measurement (moles/volume) 144 mmol/L 135-145 Serum or plasma potassium measurement (moles/volume) 2.9 mmol/L 3.6-5.0 Serum or plasma chloride measurement (moles/volume) 102 mmol/L 98-107 Carbon dioxide 29 mmol/L 21-32 Serum or plasma anion gap determination (moles/volume) 13 mmol/L 5-14 Serum or plasma urea nitrogen measurement (mass/volume) 12 mg/dL 7-18 Serum or plasma creatinine measurement (mass/volume) 0.84 mg/dL 0.60-1.30 Serum or plasma urea nitrogen/creatinine mass [...] or plasma troponin i.cardiac measurement (mass/volume) < ng/ mL <0.30 Myoglobin, serum - 03/04/17 22:25 Myoglobin, serum 30.2 ng/mL 10.0-92.0 Digoxin - 03/04/17 22:25 Digoxin < ng/mL 0.80-2.00 Serum or plasma C reactive protein measurement (mass/volume) - 03/04/17 22:25 Serum or plasma C reactive protein measurement (mass/volume) 0.53 mg /dL 0.00-0.50 Complete blood count (CBC) with automated white blood cell (WBC) differential - 03/05/17 04:50 Blood leukocytes automated count (number/volume) 14.9 10*3/uL 4.3-11.0 Blood erythrocytes automated count (number/volume) 4.20 10*6/uL 4.35-5.85 Venous blood hemoglobin measurement (mass/volume) 12.6 [...] Automated blood platelet mean volume measurement 11.8 [foz_us] 7.4-10.4 Automated blood neutrophils/100 leukocytes 76 % [...] Serum or plasma sodium measurement (moles/volume) 142 mmol/L 135-145 Serum or plasma potassium measurement (moles/volume) 3.6 mmol/L 3.6-5.0 Serum or plasma chloride measurement (moles/volume) 106 mmol/L 98-107 Carbon dioxide 23 mmol/L 21-32 Serum or plasma anion gap determination (moles/volume) 13 mmol/L 5-14 Serum or plasma urea nitrogen measurement (mass/volume) 11 mg/dL 7-18 Serum or plasma creatinine measurement (mass/volume) 0.73 mg/dL 0.60-1.30 Serum or plasma urea nitrogen/creatinine mass ratio 15 NRG Serum or plasma creatinine measurement with calculation of estimated glomerular filtration rate > NRG Serum or plasma glucose measurement (mass/volume) 173 mg/dL 70-105 Serum or plasma calcium measurement (mass/volume) 9.2 mg/dL 8.5-10.1 Serum or plasma troponin i.cardiac measurement (mass/volume) - 03/05/17 04:50 Serum or plasma troponin i.cardiac measurement (mass/volume) < ng/ mL <0.30 Lipid 1996 panel - 03/05/17 04:50 Serum or plasma triglyceride measurement (mass/volume) 107 mg/dL <150 Serum or plasma cholesterol measurement (mass/volume) 165 mg/dL < 200 Serum or plasma cholesterol in HDL measurement (mass/volume) 61 mg/ dL 40-60 Cholesterol in LDL [mass/volume] in serum or plasma by direct assay 81 mg/dL 1-129 Serum or plasma cholesterol in VLDL measurement (mass/volume) 21 mg/ dL 5-40 Capillary blood glucose measurement by glucometer [...] measurement by glucometer (mass/volume) 174 mg/dL 70-110 Methicillin resistant Staphylococcus aureus (MRSA) screening culture - 12:10 Methicillin resistant Staphylococcus aureus (MRSA) screening culture NEG NRG Capillary blood glucose measurement by glucometer (mass/volume) - 09/04/17 12: 16 Capillary blood glucose measurement by glucometer (mass/volume) 134 mg/dL 70-110 Complete blood count (CBC) with automated white blood cell (WBC) differential - 09/13/17 19:50 Blood leukocytes automated count (number/volume) 18.0 10*3/uL 4.3-11.0 Blood erythrocytes automated count (number/volume) 4.74 10*6/uL 4.35-5.85 Venous blood hemoglobin measurement (mass/volume) 14.0 g/dL 11.5-16.0 Blood hematocrit (volume fraction) 43 % 35-52 Automated erythrocyte mean corpuscular volume 90 [foz_us] 80-99 Automated erythrocyte mean corpuscular hemoglobin (mass per erythrocyte) 30 pg 25-34 Automated erythrocyte mean corpuscular hemoglobin concentration measurement ( mass/volume) 33 g/dL 32-36 Automated erythrocyte distribution width ratio 14.6 % 10.0-14.5 Automated blood platelet count (count/volume) 277 10*3/uL 130-400 Automated blood platelet mean volume measurement 11.7 [foz_us] 7.4-10.4 Automated blood neutrophils/100 leukocytes 79 % 42-75 Automated blood lymphocytes/100 leukocytes 14 % 12-44 Blood monocytes/100 leukocytes 7 % 0-12 Automated blood eosinophils/100 leukocytes 1 % 0-10 Automated blood basophils/100 leukocytes 0 % 0-10 Blood neutrophils automated count (number/volume) 14.2 10*3 1.8-7.8 Blood lymphocytes automated count (number/volume) 2.4 10*3 1.0-4.0 Blood monocytes automated count (number/volume) 1.2 10*3 0.0-1.0 Automated eosinophil count 0.1 10*3/uL 0.0-0.3 Automated blood basophil count (count/volume) 0.1 10*3/uL 0.0-0.1 Blood manual differential performed detection - 09/13/17 19:50 Blood monocytes/100 leukocytes 3 % NRG Manual blood segmented neutrophils/100 leukocytes 66 % NRG Blood band neutrophils/100 leukocytes 1 % NRG Manual blood lymphocytes/100 leukocytes 27 % NRG Manual eosinophils/100 leukocytes in nose 1 % NRG Manual blood basophils/100 leukocytes 1 % NRG Blood erythrocyte morphology finding identification NORMAL NRG PT panel in platelet poor plasma by coagulation assay - 09/13/17 19:50 Prothrombin time (PT) in platelet poor plasma by coagulation assay 13.8 s 12.2-14.7 INR in platelet poor plasma or blood by coagulation assay 1.1 0.8-1.4 Activated partial thromboplastin time (aPTT) in platelet poor plasma bycoagulation assay - 09/13/17 19:50 Activated partial thromboplastin time (aPTT) in platelet poor plasma bycoagulation assay 27 s 24-35 Comprehensive metabolic panel - 09/13/17 19:50 Serum or plasma sodium measurement (moles/volume) 142 mmol/L 135-145 Serum or plasma potassium measurement (moles/volume) 4.2 mmol/L 3.6-5.0 Serum or plasma chloride measurement (moles/volume) 106 mmol/L 98-107 Carbon dioxide 27 mmol/L 21-32 Serum or plasma anion gap determination (moles/volume) 9 mmol/L 5-14 Serum or plasma urea nitrogen measurement (mass/volume) 25 mg/dL 7-18 Serum or plasma creatinine measurement (mass/volume) 0.79 mg/dL 0.60-1.30 Serum or plasma urea nitrogen/creatinine mass ratio 32 NRG Serum or plasma creatinine measurement with calculation of estimated glomerular filtration rate > NRG Serum or plasma glucose measurement (mass/volume) 119 mg/dL 70-105 Serum or plasma calcium measurement (mass/volume) 9.5 mg/dL 8.5-10.1 Serum or plasma total bilirubin measurement (mass/volume) 0.6 mg/dL 0.1-1.0 Serum or plasma alkaline phosphatase measurement (enzymatic activity/volume) 64 U/L 40-136 Serum or plasma aspartate aminotransferase measurement (enzymatic activity/ volume) 136 U/L 5-34 Serum or plasma alanine aminotransferase measurement (enzymatic activity/volume ) 59 U/L 0-55 Serum or plasma protein measurement (mass/volume) 7.7 g/dL 6.4-8.2 Serum or plasma albumin measurement (mass/volume) 3.5 g/dL 3.2-4.5 Magnesium - 09/13/17 19:50 Magnesium 2.2 mg/dL 1.8-2.4 Serum or plasma creatine kinase measurement (enzymatic activity/volume) - 09/13 19:50 Serum or plasma creatine kinase measurement (enzymatic activity/volume) 21 U/L 29-168 Serum or plasma creatine kinase MB measurement (enzymatic activity/volume) - 19:50 Serum or plasma creatine kinase MB measurement (enzymatic activity/volume) 0.8 ng/mL <6.6 Serum or plasma troponin i.cardiac measurement (mass/volume) - 09/13/17 19:50 Serum or plasma troponin i.cardiac measurement (mass/volume) < ng/ mL <0.30 Serum or plasma amylase measurement (enzymatic activity/volume) - 09/13/17 19: 50 Serum or plasma amylase measurement (enzymatic activity/volume) 60 U /L 25-125 Serum or plasma lithium measurement (moles/volume) - 09/13/17 19:50 BNP level 131.2 pg/mL <100.0 Lipase - 09/13/17 19:50 Lipase 73 U/L 8-78 Digoxin - 09/13/17 19:50 Digoxin < ng/mL 0.80-2.00 Complete blood count (CBC) with automated white blood cell (WBC) differential - 09/14/17 02:21 Blood leukocytes automated count (number/volume) 18.5 10*3/uL 4.3-11.0 Blood erythrocytes automated count (number/volume) 4.34 10*6/uL 4.35-5.85 Venous blood hemoglobin measurement (mass/volume) 12.9 g/dL 11.5-16.0 Blood hematocrit (volume fraction) 39 % 35-52 Automated erythrocyte mean corpuscular volume 90 [foz_us] 80-99 Automated erythrocyte mean corpuscular hemoglobin (mass per erythrocyte) 30 pg 25-34 Automated erythrocyte mean corpuscular hemoglobin concentration measurement ( mass/volume) 33 g/dL 32-36 Automated erythrocyte distribution width ratio 14.3 % 10.0-14.5 Automated blood platelet count (count/volume) 245 10*3/uL 130-400 Automated blood platelet mean volume measurement 11.5 [foz_us] 7.4-10.4 Automated blood neutrophils/100 leukocytes 81 % 42-75 Automated blood lymphocytes/100 leukocytes 12 % 12-44 Blood monocytes/100 leukocytes 6 % 0-12 Automated blood eosinophils/100 leukocytes 1 % 0-10 Automated blood basophils/100 leukocytes 0 % 0-10 Blood neutrophils automated count (number/volume) 15.0 10*3 1.8-7.8 Blood lymphocytes automated count (number/volume) 2.3 10*3 1.0-4.0 Blood monocytes automated count (number/volume) 1.2 10*3 0.0-1.0 Automated eosinophil count 0.1 10*3/uL 0.0-0.3 Automated blood basophil count (count/volume) 0.0 10*3/uL 0.0-0.1 Comprehensive metabolic panel - 09/14/17 02:21 Serum or plasma sodium measurement (moles/volume) 139 mmol/L 135-145 Serum or plasma potassium measurement (moles/volume) 4.1 mmol/L 3.6-5.0 Serum or plasma chloride measurement (moles/volume) 105 mmol/L 98-107 Carbon dioxide 25 mmol/L 21-32 Serum or plasma anion gap determination (moles/volume) 9 mmol/L 5-14 Serum or plasma urea nitrogen measurement (mass/volume) 28 mg/dL 7-18 Serum or plasma creatinine measurement (mass/volume) 0.75 mg/dL 0.60-1.30 Serum or plasma urea nitrogen/creatinine mass ratio 37 NRG Serum or plasma creatinine measurement with calculation of estimated glomerular filtration rate > NRG Serum or plasma glucose measurement (mass/volume) 196 mg/dL 70-105 Serum or plasma calcium measurement (mass/volume) 9.3 mg/dL 8.5-10.1 Serum or plasma total bilirubin measurement (mass/volume) 0.3 mg/dL 0.1-1.0 Serum or plasma alkaline phosphatase measurement (enzymatic activity/volume) 66 U/L 40-136 Serum or plasma aspartate aminotransferase measurement (enzymatic activity/ volume) 138 U/L 5-34 Serum or plasma alanine aminotransferase measurement (enzymatic activity/volume ) 93 U/L 0-55 Serum or plasma protein measurement (mass/volume) 6.7 g/dL 6.4-8.2 Serum or plasma albumin measurement (mass/volume) 3.1 g/dL 3.2-4.5 Lipid 1996 panel - 09/14/17 02:21 Serum or plasma triglyceride measurement (mass/volume) 51 mg/dL <150 Serum or plasma cholesterol measurement (mass/volume) 142 mg/dL < 200 Serum or plasma cholesterol in HDL measurement (mass/volume) 62 mg/ dL 40-60 Cholesterol in LDL [mass/volume] in serum or plasma by direct assay 69 mg/dL 1-129 Serum or plasma cholesterol in VLDL measurement (mass/volume) 10 mg/ dL 5-40 Serum or plasma troponin i.cardiac measurement (mass/volume) - 09/14/17 02:21 Serum or plasma troponin i.cardiac measurement (mass/volume) < ng/ mL <0.30 Myoglobin, serum - 09/14/17 02:21 Myoglobin, serum 32.9 ng/mL 10.0-92.0 Serum or plasma troponin i.cardiac measurement (mass/volume) - 09/14/17 08:05 Serum or plasma troponin i.cardiac measurement (mass/volume) < ng/ mL <0.30 Capillary blood glucose measurement by glucometer (mass/volume) - 09/14/17 11: 46 Capillary blood glucose measurement by glucometer (mass/volume) 312 mg/dL 70-110 Encounters ACCT No. Visit Date/Time Discharge Status Pt. Type Provider Facility Loc./Unit Complaint [id number] 02/10/2018 12:48:00 02/10/2018 23:59:59 CLS Outpatient JOSELUIS BORGES [facility] RAD ABNORMAL SCREENING [id number] 09/13/2017 21:00:00 09/14/2017 15:45:00 DIS Inpatient DANY ESPINAL DO [facility] ICU CHEST PAIN,CHRONIC ATRIAL FIB [id number] 09/04/2017 11:43:00 09/04/2017 16:40:00 DIS Outpatient ARVIND BOGGS MD [facility] SDC TEMPORAL ARTERITIS/ SEVERE HEADACHE [id number] 08/09/2017 10:23:00 08/09/2017 23:59:59 CLS Outpatient FAITH TURK [facility] RAD R92.8 [id number] 08/08/2017 00:25:00 08/08/2017 23:59:59 CLS Preadmit FAITH TURK N [facility] ONC [id number] 05/09/2017 12:00:00 08/07/2017 00:01:00 DIS Outpatient FAITH TURK Evy [facility] ONC [id number] 07/25/2017 17:31:00 07/25/2017 23:59:59 CLS Outpatient KO KENDRICK DO [facility] RAD BACK PAIN [id number] 05/31/2017 06:27:00 05/31/2017 10:05:00 DIS Outpatient YANG VALERA MD [facility] ENDO RECTAL BLEEDING [id number] 05/29/2017 05:34:00 05/29/2017 15:35:00 DIS Outpatient YANG VALERA MD [facility] PREOP COLONOSCOPY [id number] 05/09/2017 15:12:00 05/09/2017 23:59:59 CLS Preadmit ROSALEE FAITH Evy [facility] RAD SCREENING Z12.31 [id number] 05/09/2017 10:38:00 05/09/2017 23:59:59 CLS Preadmit FAITH TURK Evy [facility] ONC [id number] 04/23/2017 14:02:00 04/23/2017 23:59:59 CLS Outpatient ERVIN OSBORNE MD [facility] RAD RT SM,LT RENAL CYST [id number] 04/12/2017 08:15:00 04/12/2017 23:59:59 CLS Outpatient AGATHA ESPINAL FINANCIAL AID [facility] RAD ABDOMINAL/PELVIC PAIN [id number] 03/28/2017 10:22:00 03/28/2017 23:59:59 CLS Outpatient FRANCK LARSON DPM [facility] RAD DVT [id number] 03/13/2017 06:00:00 03/13/2017 11:25:00 DIS Outpatient BLAFRANCK JARRETT DPM [facility] SDC EQUINUS DEFORMITY RLE [id number] 03/06/2017 09:10:00 03/06/2017 10:27:00 DIS Outpatient BLANCHO FRANCK PAL [facility] PREOP EQUINUS DEFORMITY RLE [id number] 03/05/2017 00:09:00 03/05/2017 11:15:00 DIS Inpatient SANGEETA MARSHALL MD [facility] ICU CHEST PAIN [id number] 02/06/2017 11:50:00 02/06/2017 23:59:59 CLS Outpatient SHEELA BANUELOS MD [facility] CARD AF,CHEST PAIN,HTN,HLP [id number] 08/14/2016 07:46:00 08/14/2016 23:59:59 CLS Outpatient JOSELUIS BORGES [employer]CIAL AID [facility] RAD ABNORMAL SCREENING MAMMO [id number] 08/07/2016 10:57:00 08/07/2016 23:59:59 CLS Outpatient JOSELUIS BORGES FINANCIAL AID [facility] RAD SCREENING,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 [id number] 05/28/2016 19:14:00 05/28/2016 21:28:00 DIS Emergency JAYE MENG APRN [facility] ER CHEST PAIN [id number] 05/22/2016 11:13:00 05/22/2016 23:59:59 CLS Outpatient DANY ESPINAL DO [facility] RAD F02.81 [id number] 05/10/2016 12:33:00 05/10/2016 23:59:59 CLS Outpatient JOSELUIS BORGES FINANCIAL AID [facility] ONC [id number] 03/19/2016 01:26:00 03/22/2016 13:45:00 DIS Inpatient SANGEETA MARSHALL MD [facility] 4TH AMS; SUSPENDED UTI; FEVER [id number] 03/08/2016 21:09:00 03/12/2016 12:07:00 DIS Inpatient NG DO, JOSE ELIAS [facility] 4TH SEPSIS,UTI,AMS [id number] 03/08/2016 01:39:00 03/08/2016 03:44:00 DIS Emergency NELLY SMITH DO [facility] ER AMS,UTI,R LEG PAIN [id number] 03/01/2016 12:00:00 03/01/2016 23:59:59 CLS Outpatient DANY ESPINAL DO [facility] HH POSSIBLE UTI [id number] 02/16/2016 14:52:00 02/16/2016 23:59:59 CLS Outpatient DANY ESPINAL DO [facility] UTI, HYPOTHYROIDISM [id number] 01/30/2016 17:30:00 02/02/2016 14:30:00 DIS Inpatient SANGEETA MARSHALL MD [facility] 4TH UTI,CONFUSION [id number] 01/28/2016 18:13:00 01/28/2016 23:59:59 CLS Outpatient AGATHA ESPINAL FINANCIAL AID [facility] LAB UTI [id number] 11/15/2015 10:07:00 11/15/2015 23:59:59 CLS Outpatient MEGHA PANDA MD [facility] GLC CELLULITIS, VANCO IV [id number] 10/15/2015 15:55:00 10/19/2015 16:30:00 DIS Inpatient MEGHA PANDA MD [address] EXTENSIVE CELLULITIS RT HIP,FEVER,S/P RT HIP IF [id number] 09/15/2015 14:20:00 09/23/2015 14:37:00 DIS Inpatient MEGHA MATIAS MD [facility] 4TH HARDWARE FAILURE [id number] 09/08/2015 13:29:00 09/15/2015 13:30:00 DIS Inpatient VENUS PARTIDA MD [facility] IRF RIGHT HIP FRACTURE, CLOSED [id number] 09/03/2015 18:45:00 09/08/2015 11:15:00 DIS Inpatient MEGHA PANDA MD [facility] 4TH RIGHT HIP FRACTURE, CLOSED [id number] 07/05/2015 10:30:00 07/05/2015 23:59:59 CLS Outpatient MEGHA PANDA MD [facility] DIABETES,CHRONIC DIURETIC USE [id number] 06/24/2015 10:40:00 06/24/2015 23:59:59 CLS Outpatient MEGHA PANDA MD [facility] DM, HYPOPOTASSEMIA [id number] 06/17/2015 12:00:00 06/17/2015 23:59:59 CLS Outpatient MEGHA PANDA MD [facility] HYPONATREMIA [id number] 05/20/2015 14:13:00 06/16/2015 09:42:00 DIS Outpatient RAVEN LEO APRN [facility] REHAB MUSCULOSKELETAL CHEST AND SHOULDER PAIN [id number] 06/14/2015 11:45:00 06/14/2015 14:36:00 DIS Outpatient WILLARD PARR [facility] CARD AFIB,HTN, SYNCOPE [id number] 06/08/2015 21:25:00 06/10/2015 13:15:00 DIS Inpatient MEGHA PANDA MD [facility] SURGICAL HYPONATREMIA, AMS, WEAKNESS [id number] 05/25/2015 07:00:00 05/27/2015 14:20:00 DIS Inpatient MEGHA PANDA MD [facility] SURGICAL FALL/CONTUSION [id number] 05/18/2015 14:02:00 05/18/2015 23:59:59 CLS Outpatient FAITH TURK [facility] RAD BREAST CA [id number] 05/12/2015 13:11:00 05/12/2015 23:59:59 CLS Outpatient FATIH TURK [facility] ONC [id number] 05/03/2015 13:04:00 05/03/2015 23:59:59 CLS Outpatient ERVIN OSBORNE MD [facility] RAD LEFT RENAL CYST [id number] 04/08/2015 21:00:00 04/09/2015 13:25:00 DIS Inpatient MEGHA PANDA MD [facility] ICU CHEST PAIN [id number] 01/10/2015 10:18:00 01/10/2015 23:59:59 CLS Outpatient SHEELA BANUELOS MD [facility] REHAB LEG AND BACK PAIN [id number] 11/29/2014 09:14:00 11/29/2014 23:59:59 CLS Outpatient MEGHA PANDA MD [facility] RAD F/U CHF [id number] 11/16/2014 10:19:00 11/16/2014 12:59:00 DIS Emergency DANY HOLLIS DO [facility] ER CHEST PAINS [id number] 11/14/2014 15:42:00 11/15/2014 16:15:00 DIS Inpatient MEGHA PANDA MD [facility] ICU CHEST AND SHOULDER PAIN [id number] 11/01/2014 14:09:00 11/01/2014 23:59:59 CLS Outpatient ERVIN OSBORNE MD [facility] RAD LEFT RENAL CYST [id number] 10/28/2014 14:49:00 10/28/2014 23:59:59 CLS Outpatient RAVEN LEO APRN [facility] RAD SOB,BLE PAIN [id number] 10/14/2014 12:15:00 10/14/2014 23:59:59 CLS Outpatient MEGHA PANDA MD [facility] RAD COUGH [id number] 07/18/2014 12:07:00 07/18/2014 23:59:59 CLS Outpatient [id number] 06/03/2014 21:01:00 06/04/2014 07:38:00 DIS Outpatient CORBY SULTANA MD [facility] SLEEP MADELYN [id number] 06/01/2014 15:12:00 06/01/2014 23:59:59 CLS Outpatient FAITH TURK [facility] RAD SCREENING [id number] 05/13/2014 13:29:00 05/13/2014 23:59:59 CLS Outpatient FAITH TURK [facility] ONC [id number] 05/04/2014 13:59:00 05/04/2014 23:59:59 CLS Outpatient ERVIN OSBORNE MD [facility] RAD LEFT RENAL CYST,RAML [id number] 12/16/2013 07:13:00 12/16/2013 10:35:00 DIS Outpatient ARI GASTELUM MD [facility] SDC DYSPHAGIA [id number] 12/09/2013 07:36:00 12/09/2013 23:59:59 CLS Outpatient ARI GASTELUM MD [facility] PREOP DYSPHAGIA [id number] 12/03/2013 13:16:00 12/03/2013 23:59:59 CLS Outpatient JOSELUIS BORGES [facility] RAD SIX MONTH FOLLOW-UP [id number] 11/04/2013 14:02:00 11/04/2013 23:59:59 CLS Outpatient ERVIN OSBORNE MD [facility] RAD LT RENAL CYST [id number] 06/01/2013 14:05:00 06/01/2013 23:59:59 CLS Outpatient FAITH TURK [facility] RAD FOLLOW-UP,HX CA BREAST [id number] 04/28/2013 13:07:00 04/28/2013 23:59:59 CLS Outpatient ERVIN OSBORNE MD [facility] RAD RENAL MASSES [id number] 03/23/2013 14:02:00 03/23/2013 23:59:59 CLS Outpatient MEGHA PANDA MD [facility] LAB [id number] 03/23/2013 13:33:00 03/23/2013 23:59:59 CLS Outpatient FAITH TURK [facility] ONC [id number] 04/17/2016 09:14:00 Document Registration [id number] 09/06/2015 17:01:00 Document Registration [id number] 11/29/2014 09:14:00 Document Registration [id number] 01/01/2013 18:45:00 Document Registration [id number] 12/28/2012 17:05:00 Document Registration [id number] 12/01/2012 13:35:00 Document Registration [id number] 11/28/2012 12:10:00 Document Registration [id number] 09/16/2012 19:40:00 Document Registration [id number] 05/13/2012 05:38:00 Document Registration [id number] 05/08/2012 11:44:00 Document Registration [id number] 05/06/2012 12:30:00 Document Registration [id number] 04/29/2012 07:26:00 Document Registration [id number] 04/08/2012 13:03:00 Document Registration [id number] 03/26/2012 15:10:00 Document Registration [id number] 03/24/2012 10:29:00 Document Registration [id number] 12/17/2011 07:36:00 Document Registration [id number] 09/21/2011 21:48:00 Document Registration [id number] 09/06/2011 05:38:00 Document Registration [id number] 09/04/2011 09:37:00 Document Registration [id number] 07/18/2011 08:49:00 Document Registration [id number] 07/11/2011 06:30:00 Document Registration [id number] 04/30/2011 18:01:00 Document Registration [id number] 04/25/2011 13:30:00 Document Registration [id number] 03/12/2011 13:01:00 Document Registration [id number] 03/02/2011 13:14:00 Document Registration [id number] 02/19/2011 12:40:00 Document Registration [id number] 07/07/2010 15:10:00 Document Registration [id number] 04/07/2010 16:16:00 Document Registration [id number] 03/17/2010 15:02:00 Document Registration [id number] 03/07/2010 14:00:00 Document Registration [id number] 03/02/2010 12:39:00 Document Registration [id number] 03/02/2010 12:35:00 Document Registration [id number] 02/23/2010 09:02:00 Document Registration [id number] 02/13/2010 14:39:00 Document Registration [id number] 12/07/2009 10:08:00 Document Registration [id number] 12/07/2009 10:07:00 Document Registration [id number] 10/07/2009 12:26:00 Document Registration [id number] 09/28/2009 10:28:00 Document Registration [id number] 09/21/2009 11:39:00 Document Registration [id number] 08/30/2009 00:00:00 Document Registration [id number] 08/23/2009 13:57:00 Document Registration [id number] 08/17/2009 13:00:00 Document Registration [id number] 08/12/2009 12:31:00 Document Registration [id number] 07/06/2015 08:10:04 ACT Document Registration [id number] 01/03/2018 14:30:00 01/03/2018 23:59:59 [facility] Outpatient DARCY HAN APRN [facility]
== END 2018-03-08 11:30 | disposition home or self-care (01) ==
LOC: EDUNIT# 09:24 → ER 09:26
DX: R04.0 Epistaxis (principal); F41.9 Anxiety disorder, unspecified; F32.9 Major depressive disorder, single episode, unspecified; E11.9 Type 2 diabetes mellitus without complications; F03.90 Unspecified dementia, unspecified severity, without behavioral disturbance, psychotic disturbance, mood disturbance, and anxiety; I48.91 Unspecified atrial fibrillation; I25.10 Atherosclerotic heart disease of native coronary artery without angina pectoris; E78.00 Pure hypercholesterolemia, unspecified; I10 Essential (primary) hypertension; J44.9 Chronic obstructive pulmonary disease, unspecified; Z85.3 Personal history of malignant neoplasm of breast; Z79.01 Long term (current) use of anticoagulants; Z86.711 Personal history of pulmonary embolism; Z86.718 Personal history of other venous thrombosis and embolism; Z87.81 Personal history of (healed) traumatic fracture; Z87.19 Personal history of other diseases of the digestive system; Z87.01 Personal history of pneumonia (recurrent); Z90.49 Acquired absence of other specified parts of digestive tract; Z90.11 Acquired absence of right breast and nipple; Z90.710 Acquired absence of both cervix and uterus; Z87.828 Personal history of other (healed) physical injury and trauma; Z90.89 Acquired absence of other organs; Z87.09 Personal history of other diseases of the respiratory system; Z79.4 Long term (current) use of insulin; Z88.0 Allergy status to penicillin; Z88.2 Allergy status to sulfonamides; Z88.5 Allergy status to narcotic agent
CPT/HCPCS: 30901; 36415; 70220; 85025; 99281

== ENCOUNTER 2018-03-08 17:37 | Emergency (ER) | payer MEDICARE, MEDICAID ==
[~2018-03-08] VITALS: Ht 175.3 cm; Wt 90.8 kg
[2018-03-08 17:50] VITALS: BP 158/89
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
--- OUTSIDE RECORDS SUMMARY | 2018-03-09 10:14 | XMS REPORT | Clinical Summary ---
Author Author [facility] Organization [facility] Address Unknown Phone Unavailable Care Team Providers Care Passenger Coach Driver Name Role Phone Darien Salguero MD Unavailable Source Comments Some departments are not documenting in the electronic medical record. If you do not see the information that you expected, contact Release of Information in the Health Information Management department at [phone] for further assistance in locating additional records.[facility] Allergies Active Allergy Reactions Severity Noted Date [...] results. -- F/U with Dr. Sethi in [place] for further urological issues (already has an [...]
--- OUTSIDE RECORDS SUMMARY | 2018-03-09 10:33 | XMS REPORT | Continuity of Care Document ---
Author Author [facility] Organization [facility] Address Unknown Phone Unavailable Allergies Active Description Code Type Severity Reaction Onset Reported/Identified Relationship to Patient Clinical Status Yes Sulfa (Sulfonamide Antibiotics) [id number] Drug Allergy Mild N/A 2008 Yes codeine [id number] Drug Allergy Mild N/A 09/15/2015 Yes codeine [id number] Drug Allergy Mild PT TAKES HYDROC 03/06/2017 Yes nitrofurantoin [id number] Drug Allergy Mild RASH 03/06/2017 Yes Penicillins [id number] Drug Allergy Mild N/A 03/06/2017 Yes sulfur dioxide [id number] Drug Allergy Unknown N/A 03/06/2017 Medications There [...] GASTELUM MD Ot 530.11 REFLUX ESOPHAGITIS 12/16/2013 RAI GASTELUM MD Ot 535.50 UNSP GASTRITIS GASTRODUODENITIS [...] PANDA MD Ot 414.01 CORONARY ATHEROSCLEROSIS OF [place] CORON 11/15/2014 MEGHA PANDA MD Ot 427.31 [...] 11/16/2014 MEGHA PANDA MD Ot V58.67 11/16/2014 EMGHA PANDA MD Ot V85.41 11/16/2014 MEGHA PANDA [...] MEGHA PANDA MD Ot 794.2 11/16/2014 MEGHA PNADA MD Ot E944.3 11/16/2014 MEGHA PANDA MD [...] ERVIN A Ot 753.10 11/29/2014 JOSELUIS BORGES TRANSITION PROGRAM MANAGER Ot 174.9 11/29/2014 BORGESJOSELUIS Devi TRANSITION PROGRAM MANAGER Ot V67.9 11/29/2014 INDIA MOULTON, ERVIN A Ot 593.2 11/29/2014 NIRAV MOULTON, [facility] Ot V72.84 11/29/2014 [place] MOULTON, ERVIN A Ot 593.2 11/29/2014 ROSALEEFAITH RABAGO N Ot 174.9 11/29/2014 ROSALEEFAITH RABAGO N Ot V67.9 11/29/2014 ROSALEEFAITH RABAGO N Ot 793.80 11/29/2014 RAVEN LEO ORDER ANALYST Ot 729.5 11/29/2014 RAVEN LEO ORDER ANALYST Ot 786.05 11/29/2014 IND[place] MOULTON, ERVIN Lanier Ot 593.2 11/29/2014 RAVEN LEO APRN Ot 729.5 11/29/2014 RAVEN LEO ORDER ANALYST Ot 786.05 11/30/2014 RAVEN LEO ORDER ANALYST Ot 729.5 11/30/2014 RAVEN LEO APRN Ot [...] ERVIN Lanier Ot 753.10 11/30/2014 JOSELUIS BORGES TRANSITION PROGRAM MANAGER Ot 174.9 11/30/2014 JOSELUIS BORGES TRANSITION PROGRAM MANAGER Ot V67.9 11/30/2014 [place] MOULTON, ERVIN Lanier Ot 593.2 11/30/2014 NIRAV MOULTON, TAKANALI Ot V72.84 11/30/2014 [place] MOULTON, ERVIN Lanier Ot 593.2 11/30/2014 ROSALEEFAITH RABAGO N Ot 174.9 11/30/2014 ROSALEE, BOBAN N Ot V67.9 11/30/2014 ROSALEEFAITH RABAGO N Ot 793.80 11/30/2014 RAVEN LEO APRN Ot 729.5 11/30/2014 RAVEN LEO APRN Ot 786.05 11/30/2014 [place] MOULTON, ERVIN Lanier Ot 593.2 12/02/2014 LAKISHA MOULTON, SHEELA Short [...] FARZAD MOULTON, MEGHA Ku Ot 428.0 01/04/2015 EMGHA PANDA MD Ot 428.0 01/07/2015 LAKISHA MOULTON, [...] PANDA MD Ot 414.01 CORONARY ATHEROSCLEROSIS OF [place] CORON 04/09/2015 MEGHA PANDA MD Ot 493.00 [...] ERVIN Lanier Ot 753.10 05/03/2015 JOSELUIS BORGES TRANSITION PROGRAM MANAGER Ot 174.9 05/03/2015 JOSELUIS BORGES TRANSITION PROGRAM MANAGER Ot V67.9 05/03/2015 IND[place] MOULTON, ERVIN A Ot 593.2 05/03/2015 NIRAV MOULTON, ARI Ot V72.84 05/03/2015 INDIA MOULTON, ERVIN A Ot 593.2 05/03/2015 FAITH TURK N Ot 174.9 05/03/2015 FAITH TURK N Ot V67.9 05/03/2015 FAITH TURK N Ot 793.80 05/03/2015 RAVEN LEO ORDER ANALYST Ot 729.5 05/03/2015 RAVEN LEO APRN Ot [...] ERVIN A Ot 753.10 05/18/2015 JOSELUIS BORGES TRANSITION PROGRAM MANAGER Ot 174.9 05/18/2015 BORGESJOSELUIS Devi TRANSITION PROGRAM MANAGER Ot V67.9 05/18/2015 INDIA MOULTON, ERVIN A Ot 593.2 05/18/2015 NIRAV MOULTON, [facility]LL Ot V72.84 05/18/2015 IND[place] MOULTON, ERVIN A Ot 593.2 05/18/2015 ROSALEE, BOBAN N Ot 174.9 05/18/2015 ROSALEE, FAITH N Ot V67.9 05/18/2015 ROSALEE, BOBAN N Ot 793.80 05/18/2015 RAVEN LEO ORDER ANALYST Ot 729.5 05/18/2015 RAVEN LEO ORDER ANALYST Ot 786.05 05/18/2015 INDIA MOULTON, ERVIN Lanier Ot 593.2 05/18/2015 FARZAD MOULTON, MEGHA Ku Ot 428.0 05/18/2015 RAVEN LEO ORDER ANALYST Ot 719.41 05/18/2015 RAVEN LEO ORDER ANALYST Ot 786.59 05/18/2015 RAVEN LEO ORDER ANALYST Ot V57.1 05/18/2015 INDIA MOULTON, ERVIN A Ot 753.10 05/18/2015 ROSALEE, BOBAN N Ot V10.3 05/18/2015 ROSALEE, BOBAN N Ot V12.51 05/18/2015 ROSALEE, BOBAN N Ot V12.55 05/18/2015 ROSALEE, BOBAN N Ot V45.71 05/18/2015 FAITH TURK N Ot V58.61 05/18/2015 FAITH TURK N Ot V58.69 05/18/2015 FAITH TURK Ot V67.2 05/23/2015 RAVEN LEO ORDER ANALYST Ot 719.41 05/23/2015 RAVEN LEO ORDER ANALYST Ot 786.59 05/23/2015 RAVEN LEO ORDER ANALYST Ot V57.1 05/23/2015 ERVIN OSBORNE MD Ot [...] 05/25/2015 FAITH TURK Ot 174.9 05/25/2015 MEGHA PANDA MD Ot 453.40 05/25/2015 FAITH TURK N Ot V10.3 05/25/2015 FAITH TURK N Ot V67.9 05/25/2015 INDIA MOULTON, ERVIN Lanier Ot 593.9 05/25/2015 INDIA MOULTON, ERVIN Lanier Ot 753.10 05/25/2015 JOSELUIS BORGES TRANSITION PROGRAM MANAGER Ot 174.9 05/25/2015 JOSELUIS BORGES TRANSITION PROGRAM MANAGER Ot V67.9 05/25/2015 INDIA MOULTON, ERVIN Lanier Ot 593.2 05/25/2015 NIRAV MOULTON, ARI Ot V72.84 05/25/2015 INDIA MOULTON, ERVIN Lanier Ot 593.2 05/25/2015 ROSALEE, BOBAN N Ot 174.9 05/25/2015 ROSALEE, BOBAN N Ot V67.9 05/25/2015 ROSALEE, BOBAN N Ot 793.80 05/25/2015 AHMET, RAVEN R ORDER ANALYST Ot 729.5 05/25/2015 AHMET, RAVEN R ORDER ANALYST Ot 786.05 05/25/2015 IND[place] MOULTON, ERVIN Lanier Ot 593.2 05/25/2015 FARZAD MOULTON, MEGHA Ku Ot 428.0 05/25/2015 AHMET, RAVEN R ORDER ANALYST Ot 719.41 05/25/2015 AHMET, RAVEN R ORDER ANALYST Ot 786.59 05/25/2015 AHMET, RAVEN R ORDER ANALYST Ot V57.1 05/25/2015 INDIA MOULTON, ERVIN A Ot 753.10 05/25/2015 ROSALEE, BOBAN N Ot V10.3 05/25/2015 ROSALEE, BOBAN N Ot V12.51 05/25/2015 ROSALEE, BOBAN N Ot V12.55 05/25/2015 ROSALEE, BOBAN N Ot V45.71 05/25/2015 ROSALEE, BOBAN N Ot V58.61 05/25/2015 ROSALEE, BOBAN N Ot V58.69 05/25/2015 ROSALEE, BOBAN N Ot V67.2 05/25/2015 ROSALEE, BOBAN N Ot 174.9 05/25/2015 AHMET, RAVEN R ORDER ANALYST Ot 719.41 05/25/2015 AHMET, RAVEN R ORDER ANALYST Ot 786.59 05/25/2015 AHMET, RAVEN R ORDER ANALYST Ot V57.1 05/25/2015 AHMET, RAVEN R ORDER ANALYST Ot 719.41 05/25/2015 AHMET, RAVEN R ORDER ANALYST Ot 786.59 05/25/2015 AHMET, RAVEN R ORDER ANALYST Ot V57.1 05/25/2015 AHMET, RAVEN R ORDER ANALYST Ot 719.41 05/25/2015 AHMET, RAVEN R ORDER ANALYST Ot 786.59 05/25/2015 AHMET, RAVEN R ORDER ANALYST Ot V57.1 05/27/2015 FARZAD MOULTON, MEGHA Ku [...] Ot 719.41 JOINT PAIN-SHLDER 06/16/2015 RAVEN LEO ORDER ANALYST Ot 786.59 CHEST PAIN NEC 06/16/2015 RAVEN [...] ADULT 09/08/2015 MEGHA PANDA MD, Ot Z79.01 [facility] (CURRENT) USE OF ANTICOAGULANT 09/08/2015 MEGHA PANDA MD, Ot Z79.4 [facility] (CURRENT) USE OF INSULIN 09/08/2015 MEGHA PANDA [...] ADULT 09/23/2015 MEGHA MATIAS MD, Ot Z79.01 [facility] ([facility]) USE OF ANTICOAGULANT 09/23/2015 MEGHA MATIAS MD, Ot Z79.4 [facility] (CURRENT) USE OF INSULIN 10/19/2015 MEGHA PANDA [...] ADULT 10/19/2015 MEGHA PANDA MD, Ot Z79.4 [facility] (CURRENT) USE OF INSULIN 12/06/2015 MEGHA PANDA [...] SPECIF 02/02/2016 SANGEETA MARSHALL MD Ot Z79.4 [facility] ([facility]) USE OF INSULIN 02/17/2016 DANY ESPINAL DO Ot E03.9 02/17/2016 DANY ESPINAL DO Ot I48.2 02/17/2016 DANY ESPINAL DO Ot N39.0 02/22/2016 AGATHA ESPINAL TRANSITION PROGRAM MANAGER Ot N39.0 03/01/2016 AGATHA ESPINAL TRANSITION PROGRAM MANAGER Ot N39.0 03/06/2016 DANY ESPINAL DO Ot [...] UNSPECIFIED 03/21/2016 SANGEETA MARSHALL MD Ot Z79.01 [facility] (CURRENT) USE OF ANTICOAGULANT 03/21/2016 SANGEETA MARSHALL MD Ot Z79.4 [facility] ([facility]) USE OF INSULIN 03/21/2016 SANGEETA MARSHALL [...] Ot R41.0 DISORIENTATION, UNSPECIFIED 03/22/2016 SANGEETA MARSHALL MD Ot R44.3 HALLUCINATIONS, UNSPECIFIED 03/22/2016 SANGEETA MARSHALL MD Ot R50.9 FEVER, UNSPECIFIED 03/22/2016 SANGEETA MARSHALL MD Ot R53.2 FUNCTIONAL QUADRIPLEGIA 03/22/2016 SANGEETA MARSHALL MD Ot Z79.01 [facility] (CURRENT) USE OF ANTICOAGULANT 03/22/2016 SANGEETA MARSHALL MD Ot Z79.4 [facility] (CURRENT) USE OF INSULIN 03/22/2016 SANGEETA MARSHALL [...] CYSTIC KIDNEY DISEASE, UNSPECIFIED 04/26/2016 JOSELUIS BORGES TRANSITION PROGRAM MANAGER Ot 174.9 MALIGN NEOPL BREAST NOS 04/26/2016 JOSELUIS BORGES TRANSITION PROGRAM MANAGER Ot V67.9 FOLLOW-UP EXAM NOS 04/26/2016 ERVIN OSBORNE MD Ot 593.2 CYST OF KIDNEY, ACQUIRED 04/26/2016 NIRAV [facility]OULTON[facility] Ot V72.84 EXAM PRE-OPERATIVE NOS 04/26/2016 ERVIN OSBORNE MD Ot 593.2 CYST OF KIDNEY, ACQUIRED 04/26/2016 FAITH TURK Ot 174.9 MALIGN NEOPL BREAST NOS 04/26/2016 FAITH TURK Ot V67.9 FOLLOW-UP EXAM NOS 04/26/2016 FAITH TURK Ot 793.80 UNSPEC ABNORMAL MAMMOGRAM 04/26/2016 RAVEN LEO ORDER ANALYST Ot 729.5 PAIN IN LIMB 04/26/2016 RAVEN LEO ORDER ANALYST Ot 786.05 SHORTNESS OF BREATH 04/26/2016 ERVIN [...] MON 04/26/2016 MEGHA PANDA MD Ot Z79.2 [facility] (CURRENT) USE OF ANTIBIOTICS 04/26/2016 AGATHA ESPINAL [...] TRTMT FO 05/11/2016 JOSELUIS BORGES Ot Z79.01 [facility] (CURRENT) USE OF ANTICOAGULANT 05/11/2016 JOSELUIS BORGESP Ot Z85.3 PERSONAL HISTORY OF MALIGNANT NEOPLASM O 05/11/2016 JOSELUIS BORGES Ot Z86.718 PERSONAL HISTORY OF OTHER VENOUS THROMBO 05/11/2016 JOSELUIS BORGES Ot Z90.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 05/11/2016 JOSELUIS BORGES Ot Z08 ENCNTR FOR FOLLOW-UP EXAM AFTER TRTMT FO 05/11/2016 JOSELUIS BORGES Ot Z79.01 [facility] (CURRENT) USE OF ANTICOAGULANT 05/11/2016 JOSELUIS BORGESP Ot Z85.3 PERSONAL HISTORY OF MALIGNANT NEOPLASM O 05/11/2016 BORGESJOSELUIS Devi JASON Ot Z86.718 PERSONAL HISTORY OF OTHER VENOUS THROMBO 05/11/2016 BORGESJOSELUIS Devi TRANSITION PROGRAM MANAGER Ot Z90.11 ACQUIRED ABSENCE OF RIGHT BREAST [...] Ot F02.81 DEMENTIA IN [facility] 05/24/2016 DANY ESPINAL DO Ot 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, 05/25/2016 NELLY SMITH DO Ot I51.7 CARDIOMEGALY 05/25/2016 NELLY SMITH DO Ot N39.0 URINARY TRACT INFECTION, SITE NOT SPECIF 05/25/2016 NELLY SMITH DO Ot R09.89 [facility] SYMPTOMS AND SIGNS INVOLVING THE [...] V67.09 SURGERY FOLLOW-UP, OTHER SURGERY 05/28/2016 FARZAD MOLUTON, MEGHA Ku Ot 786.2 COUGH 05/28/2016 Ot [...] CYSTIC KIDNEY DISEASE, UNSPECIFIED 05/28/2016 JOSELUIS BORGES TRANSITION PROGRAM MANAGER Ot 174.9 MALIGN NEOPL BREAST NOS 05/28/2016 JOSELUIS BORGES TRANSITION PROGRAM MANAGER Ot V67.9 FOLLOW-UP EXAM NOS 05/28/2016 ERVIN OSBORNE MD Ot 593.2 CYST OF KIDNEY, ACQUIRED 05/28/2016 NIRAV MOULTON, ARI Ot V72.84 EXAM PRE-OPERATIVE NOS 05/28/2016 ERVIN OSBORNE MD Ot 593.2 CYST OF KIDNEY, ACQUIRED 05/28/2016 FAITH TURK Ot 174.9 MALIGN NEOPL BREAST NOS 05/28/2016 FAITH TURK Ot V67.9 FOLLOW-UP EXAM NOS 05/28/2016 FAITH TURK Ot 793.80 UNSPEC ABNORMAL MAMMOGRAM 05/28/2016 RAVEN LEO ORDER ANALYST Ot 729.5 PAIN IN LIMB 05/28/2016 RAVEN LEO ORDER ANALYST Ot 786.05 SHORTNESS OF BREATH 05/28/2016 ERVIN [...] MON 05/28/2016 MEGHA PANDA MD Ot Z79.2 [facility] (CURRENT) USE OF ANTIBIOTICS 05/28/2016 AGATHA ESPINAL [...] AFTER TRTMT FO 05/28/2016 BORGES, HILAH S TRANSITION PROGRAM MANAGER Ot Z79.01 [facility] (CURRENT) USE OF ANTICOAGULANT 05/28/2016 JOSELUIS BORGES TRANSITION PROGRAM MANAGER Ot Z85.3 PERSONAL HISTORY OF MALIGNANT NEOPLASM O 05/28/2016 JOSELUIS BORGESP Ot Z86.718 PERSONAL HISTORY OF OTHER VENOUS THROMBO 05/28/2016 JOSELUIS BORGES TRANSITION PROGRAM MANAGER Ot Z90.11 ACQUIRED ABSENCE OF RIGHT BREAST [...] R07.89 OTHER CHEST PAIN 05/30/2016 JOSELUIS BORGES TRANSITION PROGRAM MANAGER Ot Z08 ENCNTR FOR FOLLOW-UP EXAM AFTER TRTMT FO 05/30/2016 JOSELUIS BORGES TRANSITION PROGRAM MANAGER Ot Z79.01 [facility] (CURRENT) USE OF ANTICOAGULANT 05/30/2016 JOSELUIS BORGES TRANSITION PROGRAM MANAGER Ot Z85.3 PERSONAL HISTORY OF MALIGNANT NEOPLASM O 05/30/2016 JOSELUIS BORGES TRANSITION PROGRAM MANAGER Ot Z86.718 PERSONAL HISTORY OF OTHER VENOUS THROMBO 05/30/2016 JOSELUIS BORGES TRANSITION PROGRAM MANAGER Ot Z90.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 05/31/2016 JAYE MENG ORDER ANALYST Ot I48.2 CHRONIC ATRIAL FIBRILLATION 05/31/2016 JAYE MENG ORDER ANALYST Ot I50.9 HEART FAILURE, UNSPECIFIED 05/31/2016 JAYE MENG APRN Ot K59.00 CONSTIPATION, UNSPECIFIED 05/31/2016 JAYE MENG ORDER ANALYST Ot R07.89 OTHER CHEST PAIN 06/07/2016 JOSELUIS BORGES TRANSITION PROGRAM MANAGER Ot Z08 ENCNTR FOR FOLLOW-UP EXAM AFTER TRTMT FO 06/07/2016 JOSELUIS BORGES TRANSITION PROGRAM MANAGER Ot Z79.01 [facility] ([facility]) USE OF ANTICOAGULANT 06/07/2016 JOSELUIS BORGES TRANSITION PROGRAM MANAGER Ot Z85.3 PERSONAL HISTORY OF MALIGNANT NEOPLASM [...] BACTERIAL DIS NEC 07/11/2016 Ot 250.00 DIAB TJ [...] CYSTIC KIDNEY DISEASE, UNSPECIFIED 07/11/2016 JOSELUIS BORGES TRANSITION PROGRAM MANAGER Ot 174.9 MALIGN NEOPL BREAST NOS 07/11/2016 JOSELUIS BORGES TRANSITION PROGRAM MANAGER Ot V67.9 FOLLOW-UP EXAM NOS 07/11/2016 [place] [...] 793.80 UNSPEC ABNORMAL MAMMOGRAM 07/11/2016 RAVEN LEO ORDER ANALYST Ot 729.5 PAIN IN LIMB 07/11/2016 RAVEN LEO ORDER ANALYST Ot 786.05 SHORTNESS OF BREATH 07/11/2016 [place] [...] 07/11/2016 MEGHA PANDA MD, Ot 250.00 DIAB JT WO COMPL, TYPE II OR UNSPEC TY 07/11/2016 MEGHA PANDA MD, Ot V58.69 OT MED,LT,CURRENT USE 07/11/2016 MEGHA PANDA MD, Ot L03.90 CELLULITIS, UNSPECIFIED 07/11/2016 MEGHA PANDA MD, Ot Z51.81 ENCOUNTER FOR THERAPEUTIC DRUG LEVEL MON 07/11/2016 MEGHA PANDA MD, Ot Z79.2 [facility] (CURRENT) USE OF ANTIBIOTICS 07/11/2016 AGATHA ESPINAL [...] TRTMT FO 07/11/2016 JOSELUIS BORGES Ot Z79.01 [facility] (CURRENT) USE OF ANTICOAGULANT 07/11/2016 JOSELUIS BORGES [...] DEGENERATIVE DISEASE OF NERVOUS SYSTEM, 07/11/2016 MEGHA PANDA MD Ot L03.90 CELLULITIS, UNSPECIFIED 07/11/2016 MEGHA PANDA MD Ot Z51.81 ENCOUNTER FOR THERAPEUTIC DRUG LEVEL MON 07/11/2016 MEGHA PANDA MD Ot Z79.2 [facility] (CURRENT) USE OF ANTIBIOTICS 07/11/2016 MEGHA PANDA MD, Ot L03.90 CELLULITIS, UNSPECIFIED 07/11/2016 MEGHA PANDA MD Ot Z51.81 ENCOUNTER FOR THERAPEUTIC DRUG LEVEL MON 07/11/2016 MEGHA PANDA MD, Ot Z79.2 [facility] (CURRENT) USE OF ANTIBIOTICS 08/07/2016 JOSELUIS BORGES TRANSITION PROGRAM MANAGER Ot Z12.31 ENCNTR SCREEN MAMMOGRAM FOR MALIGNANT NE 08/08/2016 JOSELUIS BORGES TRANSITION PROGRAM MANAGER Ot Z12.31 ENCNTR SCREEN MAMMOGRAM FOR MALIGNANT NE 08/08/2016 JOSELUIS BORGES TRANSITION PROGRAM MANAGER Ot Z12.31 ENCNTR SCREEN MAMMOGRAM FOR MALIGNANT NE 08/14/2016 JOSELUIS BORGES TRANSITION PROGRAM MANAGER Ot R92.8 OTH ABN AND INCONCLUSIVE FINDINGS ON DX 08/15/2016 JOSELUIS BORGES TRANSITION PROGRAM MANAGER Ot R92.8 OTH ABN AND INCONCLUSIVE FINDINGS ON DX 08/15/2016 JOSELUIS BORGES TRANSITION PROGRAM MANAGER Ot R92.8 OTH ABN AND INCONCLUSIVE FINDINGS ON DX 08/29/2016 JOSELUIS BORGES TRANSITION PROGRAM MANAGER Ot Z12.31 ENCNTR SCREEN MAMMOGRAM FOR MALIGNANT NE 09/05/2016 JOSELUIS BORGES TRANSITION PROGRAM MANAGER Ot R92.8 OTH ABN AND INCONCLUSIVE FINDINGS ON DX 09/05/2016 JOSELUIS BORGES TRANSITION PROGRAM MANAGER Ot Z12.31 ENCNTR SCREEN MAMMOGRAM FOR MALIGNANT NE 09/12/2016 JOSELUIS BORGES TRANSITION PROGRAM MANAGER Ot R92.8 OTH ABN AND INCONCLUSIVE FINDINGS [...] CYSTIC KIDNEY DISEASE, UNSPECIFIED 02/06/2017 JOSELUIS BORGES TRANSITION PROGRAM MANAGER Ot 174.9 MALIGN NEOPL BREAST NOS 02/06/2017 JOSELUIS BORGES TRANSITION PROGRAM MANAGER Ot V67.9 FOLLOW-UP EXAM NOS 02/06/2017 ERVIN OSBORNE MD Ot 593.2 CYST OF KIDNEY, ACQUIRED 02/06/2017 NIRAV MOULTON, ARI Ot V72.84 EXAM PRE-OPERATIVE NOS 02/06/2017 ERVIN OSBORNE MD Ot 593.2 CYST OF KIDNEY, ACQUIRED 02/06/2017 FAITH TURK Ot 174.9 MALIGN NEOPL BREAST NOS 02/06/2017 FAITH TURK Ot V67.9 FOLLOW-UP EXAM NOS 02/06/2017 FAITH TURK Ot 793.80 UNSPEC ABNORMAL MAMMOGRAM 02/06/2017 RAVEN LEO ORDER ANALYST Ot 729.5 PAIN IN LIMB 02/06/2017 RAVEN LEO ORDER ANALYST Ot 786.05 SHORTNESS OF BREATH 02/06/2017 ERVIN [...] ABSENCE OF BREAST AND NIPPLE 02/06/2017 FAITH UTRK Ot V58.61 ANTICOAGULANTS,LT,CURRENT USE 02/06/2017 FAITH TURK [...] MON 02/06/2017 MEGHA PANDA MD Ot Z79.2 [facility] (CURRENT) USE OF ANTIBIOTICS 02/06/2017 AGATHA ESPINAL [...] N28.1 CYST OF KIDNEY, ACQUIRED 02/06/2017 JOSELUIS BROGES Ot Z08 ENCNTR FOR FOLLOW-UP EXAM AFTER TRTMT FO 02/06/2017 JOSELUIS BORGES Ot Z79.01 [facility] (CURRENT) USE OF ANTICOAGULANT 02/06/2017 JOSELUIS BORGES Ot Z85.3 PERSONAL HISTORY OF MALIGNANT NEOPLASM O 02/06/2017 JSOELUIS BORGES Ot Z86.718 PERSONAL HISTORY OF OTHER VENOUS THROMBO 02/06/2017 JOSELUIS BORGES Ot Z90.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 02/06/2017 JOSELUIS BORGES Ot Z12.31 ENCNTR SCREEN MAMMOGRAM FOR MALIGNANT NE 02/06/2017 DANY ESPINAL DO Ot F02.81 DEMENTIA IN OT DISEASES CLASSD ELSWHR W 02/06/2017 DANY ESPINAL DO Ot 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, 02/06/2017 JOSELUIS BORGES TRANSITION PROGRAM MANAGER Ot R92.8 OT ABN AND INCONCLUSIVE FINDINGS [...] MD Ot I25.10 ATHSCL HEART DISEASE OF [place] CORONARY 03/05/2017 SANGEETA MARSHALL MD Ot I27.2 [...] MD Ot I16.1 HYPERTENSIVE EMERGENCY 03/05/2017 SANGEETA MASRHALL MD Ot I25.10 ATHSCL HEART DISEASE OF [place] CORONARY 03/05/2017 SANGEETA MARSHALL MD Ot I27.2 [...] CYSTIC KIDNEY DISEASE, UNSPECIFIED 03/13/2017 JOSELUIS BORGES TRANSITION PROGRAM MANAGER Ot 174.9 MALIGN NEOPL BREAST NOS 03/13/2017 JOSELUIS BORGES TRANSITION PROGRAM MANAGER Ot V67.9 FOLLOW-UP EXAM NOS 03/13/2017 ERVIN [...] 793.80 UNSPEC ABNORMAL MAMMOGRAM 03/13/2017 RAVEN LEO ORDER ANALYST Ot 729.5 PAIN IN LIMB 03/13/2017 RAVEN LEO ORDER ANALYST Ot 786.05 SHORTNESS OF BREATH 03/13/2017 [place] [...] MON 03/13/2017 MEGHA PANDA MD Ot Z79.2 [facility] (CURRENT) USE OF ANTIBIOTICS 03/13/2017 AGATHA ESPINAL [...] TRTMT FO 03/13/2017 JOSELUIS BORGES Ot Z79.01 [facility] (CURRENT) USE OF ANTICOAGULANT 03/13/2017 JOSELUIS BORGES [...] 03/13/2017 BLAXOCHILTHO DPM, FRANCK Stanton Ot Z79.4 [facility] (CURRENT) USE OF INSULIN 03/13/2017 JOAOHO DPAsh, FRANCK Maximino Ot Z79.84 [facility] (CURRENT) USE OF ORAL HYPOGLYC 03/13/2017 JOAOHO DPAsh FRANCK Stanton Ot Z79.899 [facility] (CURRENT) DRUG THERAPY 03/28/2017 Ot 250.00 DIAB [...] Ot 174.9 MALIGN NEOPL BREAST NOS 03/28/2017 MEGHA PANDA MD Ot 453.40 ACUTE VENOUS EMBOLISM THROMBOSIS UNSP 03/28/2017 FAITH TURK Ot V10.3 HX OF BREAST MALIGNANCY 03/28/2017 FAITH TURK Ot V67.9 FOLLOW-UP EXAM NOS 03/28/2017 ERVIN OSBORNE MD Ot 593.9 RENAL URETERAL DIS NOS 03/28/2017 ERVIN OSBORNE MD Ot 753.10 CYSTIC KIDNEY DISEASE, UNSPECIFIED 03/28/2017 JOSELUIS BORGES TRANSITION PROGRAM MANAGER Ot 174.9 MALIGN NEOPL BREAST NOS 03/28/2017 JOSELUIS BORGES TRANSITION PROGRAM MANAGER Ot V67.9 FOLLOW-UP EXAM NOS 03/28/2017 ERVIN [...] M79.604 PAIN IN RIGHT LEG 04/25/2017 SARAH ENLLY CHAUHAN K Ot I51.7 CARDIOMEGALY 04/25/2017 SARAH NELLY CHAUHAN K Ot N39.0 URINARY TRACT INFECTION, SITE NOT SPECIF 04/25/2017 SARAH NELLY CHAUHAN K Ot R09.89 OTH SYMPTOMS AND SIGNS INVOLVING THE CIR 04/25/2017 AGATHA ESPINAL TRANSITION PROGRAM MANAGER Ot N28.1 CYST OF KIDNEY, ACQUIRED 04/25/2017 AGATHA ESPINAL TRANSITION PROGRAM MANAGER Ot R10.2 PELVIC AND PERINEAL PAIN 04/26/2017 [...] TRTMT FO 05/10/2017 FAITH TURK Ot Z79.01 [facility] (CURRENT) USE OF ANTICOAGULANT 05/10/2017 FAITH TURK Ot Z79.4 [facility] ([facility]) USE OF INSULIN 05/10/2017 FAITH TURK Ot Z85.3 PERSONAL HISTORY OF MALIGNANT NEOPLASM O 05/10/2017 FAITH TURK Ot Z86.718 PERSONAL HISTORY OF OTHER VENOUS THROMBO 05/10/2017 FAITH TURK Ot Z90.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 05/10/2017 FAITH TURK Ot Z92.21 PERSONAL HISTORY OF ANTINEOPLASTIC CHEMO 05/14/2017 AGATHA ESPINAL TRANSITION PROGRAM MANAGER Ot N28.1 CYST OF KIDNEY, ACQUIRED 05/14/2017 [...] 05/31/2017 YANG VALERA MD Ot Z79.899 OTHER [facility] (CURRENT) DRUG THERAPY 06/04/2017 YANG VALERA MD [...] 06/04/2017 YANG VALERA MD Ot Z79.899 [facility] ([facility]) DRUG THERAPY 06/13/2017 AGATHA ESPINAL TRANSITION PROGRAM MANAGER Ot N28.1 CYST OF KIDNEY, ACQUIRED 06/13/2017 AGATHA ESPINAL TRANSITION PROGRAM MANAGER Ot R10.2 PELVIC AND PERINEAL PAIN 06/17/2017 ROSALEE EDNASUJATA Evy Ot E11.9 TYPE 2 DIABETES MELLITUS WITHOUT COMPLIC 06/17/2017 ROSALEE EDNASUJATA Evy Ot E78.5 HYPERLIPIDEMIA, UNSPECIFIED 06/17/2017 ROSALEEEDNA RABAGOSUJATA Evy Ot I10 ESSENTIAL (PRIMARY) HYPERTENSION 06/17/2017 FAITH TURK Ot Z08 ENCNTR FOR FOLLOW-UP EXAM AFTER TRTMT FO 06/17/2017 FAITH TURK Ot Z79.01 [facility] ([facility] USE OF ANTICOAGULANT 06/17/2017 FAITH TURK Ot Z79.4 [facility] ([facility]) USE OF INSULIN 06/17/2017 FAITH TURK [...] TRTMT FO 06/26/2017 FAITH TURK Ot Z79.01 [facility] (CURRENT) USE OF ANTICOAGULANT 06/26/2017 FAITH TURK Ot Z79.4 [facility] ([facility]) USE OF INSULIN 06/26/2017 FAITH TURK [...] TRTMT FO 08/07/2017 FAITH TURK Ot Z79.01 [facility] (CURRENT) USE OF ANTICOAGULANT 08/07/2017 FAITH TURK Ot Z79.4 [facility] (CURRENT) USE OF INSULIN 08/07/2017 FAITH TURK [...] HEADACHE 09/04/2017 ARVIND BOGGS MD Ot Z79.4 [facility] USE OF INSULIN 09/04/2017 ARVIND BOGGS MD Ot Z79.899 [facility] (CURRENT) DRUG THERAPY 09/11/2017 ARVIND BOGGS MD [...] HEADACHE 09/11/2017 ARVIND BOGGS MD Ot Z79.4 [facility] ([facility]) USE OF INSULIN 09/11/2017 ARVIND BOGGS MD Ot Z79.899 [facility] (CURRENT) DRUG THERAPY 09/14/2017 DANY ESPINAL DO Ot D72.829 ELEVATED WHITE BLOOD CELL COUNT, UNSPECI 09/14/2017 DANY ESPINAL DO Ot E11.9 TYPE 2 DIABETES MELLITUS WITHOUT COMPLIC 09/14/2017 DANY ESPINAL DO, Ot E66.9 OBESITY, UNSPECIFIED 09/14/2017 DANY ESPINAL DO, Ot E78.5 HYPERLIPIDEMIA, UNSPECIFIED 09/14/2017 DANY ESPINAL DO, Ot F31.9 BIPOLAR DISORDER, UNSPECIFIED 09/14/2017 DANY ESPINAL DO, Ot I25.10 ATHSCL HEART DISEASE OF [place] CORONARY 09/14/2017 DANY ESPINAL DO, Ot I27.20 [...] ADULT 09/14/2017 DANY ESPINAL DO, Ot Z79.01 [facility] ([facility] USE OF ANTICOAGULANT 09/14/2017 DANY ESPINAL DO, Ot Z79.4 [facility] ([facility] USE OF INSULIN 09/14/2017 DANY ESPINAL DO, Ot Z79.899 OTHER [facility] (CURRENT) DRUG THERAPY 09/14/2017 DANY ESPINAL DO, [...] CYSTIC KIDNEY DISEASE, UNSPECIFIED 02/03/2018 JOSELUIS BORGES TRANSITION PROGRAM MANAGER Ot 174.9 MALIGN NEOPL BREAST NOS 02/03/2018 JOSELUIS BORGES TRANSITION PROGRAM MANAGER Ot V67.9 FOLLOW-UP EXAM NOS 02/03/2018 ERVIN OSBORNE MD Ot 593.2 CYST OF KIDNEY, ACQUIRED 02/03/2018 NIRAV MOULTON, ARI Ot V72.84 EXAM PRE-OPERATIVE NOS 02/03/2018 ERVIN OSBORNE MD Ot 593.2 CYST OF KIDNEY, ACQUIRED 02/03/2018 FAITH TURK Ot 174.9 MALIGN NEOPL BREAST NOS 02/03/2018 FAITH TURK Ot V67.9 FOLLOW-UP EXAM NOS 02/03/2018 FAITH TURK Ot 793.80 UNSPEC ABNORMAL MAMMOGRAM 02/03/2018 RAVEN LEO ORDER ANALYST Ot 729.5 PAIN IN LIMB 02/03/2018 RAVEN LEO ORDER ANALYST Ot 786.05 SHORTNESS OF BREATH 02/03/2018 ERVIN [...] MON 02/03/2018 MEGHA PANDA MD Ot Z79.2 [facility] ([facility] USE OF ANTIBIOTICS 02/03/2018 AGATHA ESPINAL [...] AFTER TRTMT FO 02/03/2018 BORGES, HILAH S TRANSITION PROGRAM MANAGER Ot Z79.01 [facility] ([facility] USE OF ANTICOAGULANT 02/03/2018 JOSELUIS BORGES TRANSITION PROGRAM MANAGER Ot Z85.3 PERSONAL HISTORY OF MALIGNANT NEOPLASM [...] Ot I48.0 PAROXYSMAL ATRIAL FIBRILLATION 02/03/2018 SHEELA BANEULOS MD Ot R07.9 CHEST PAIN, UNSPECIFIED 02/03/2018 MARSHA PAL, FRANCK Stanton Ot M79.604 PAIN IN RIGHT LEG 02/03/2018 AGATHA ESPINAL TRANSITION PROGRAM MANAGER Ot N28.1 CYST OF KIDNEY, ACQUIRED 02/03/2018 AGATHA ESPINAL TRANSITION PROGRAM MANAGER Ot R10.2 PELVIC AND PERINEAL PAIN 02/03/2018 [...] TRTMT FO 02/03/2018 FAITH TURK Ot Z79.01 [facility] (CURRENT) USE OF ANTICOAGULANT 02/03/2018 FAITH TURK Ot Z79.4 [facility] (CURRENT) USE OF INSULIN 02/03/2018 FAITH TURK [...] 793.80 UNSPEC ABNORMAL MAMMOGRAM 02/10/2018 RAVEN LEO ORDER ANALYST Ot 729.5 PAIN IN LIMB 02/10/2018 RAVEN LEO ORDER ANALYST Ot 786.05 SHORTNESS OF BREATH 02/10/2018 [place] [...] MON 02/10/2018 MEGHA PANDA MD Ot Z79.2 [facility] (CURRENT) USE OF ANTIBIOTICS 02/10/2018 AGATHA ESPINAL [...] TRTMT FO 02/10/2018 JOSELUIS BORGES Ot Z79.01 [facility] (CURRENT) USE OF ANTICOAGULANT 02/10/2018 JOSELUIS BORGES [...] PAIN IN RIGHT LEG 02/10/2018 TEDDYHENRIETTAAGATHA L TRANSITION PROGRAM MANAGER Ot N28.1 CYST OF KIDNEY, ACQUIRED 02/10/2018 AGATHA ESPINAL TRANSITION PROGRAM MANAGER Ot R10.2 PELVIC AND PERINEAL PAIN 02/10/2018 [...] FO 02/10/2018 ROSALEE FAITH Evy Ot Z79.01 [facility] (CURRENT) USE OF ANTICOAGULANT 02/10/2018 ROSALEE FAITH N Ot Z79.4 [facility] (CURRENT) USE OF INSULIN 02/10/2018 FAITH TURK Evy Ot Z85.3 PERSONAL HISTORY OF MALIGNANT NEOPLASM O 02/10/2018 ROSALEEFAITH RABAGO Evy Ot Z86.718 PERSONAL HISTORY OF OTHER VENOUS THROMBO 02/10/2018 FAITH TURK Evy Ot Z90.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 02/10/2018 FAITH TURK Evy Ot Z92.21 PERSONAL HISTORY OF ANTINEOPLASTIC CHEMO 02/10/2018 JOSELUIS BORGES TRANSITION PROGRAM MANAGER Ot R92.8 OTH ABN AND INCONCLUSIVE FINDINGS ON DX 02/11/2018 JOSELUIS BORGES TRANSITION PROGRAM MANAGER Ot C50.911 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 02/11/2018 JOSELUIS BORGES TRANSITION PROGRAM MANAGER Ot 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 02/11/2018 JOSELUIS BORGES TRANSITION PROGRAM MANAGER Ot C50.911 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 02/11/2018 JOSELUIS BORGES TRANSITION PROGRAM MANAGER Ot 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 02/21/2018 JOSELUIS BORGES TRANSITION PROGRAM MANAGER Ot C50.911 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 02/21/2018 JOSELUIS BORGES TRANSITION PROGRAM MANAGER Ot 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 02/21/2018 JOSELUIS BORGES TRANSITION PROGRAM MANAGER Ot C50.911 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 02/21/2018 JOSELUIS BORGES TRANSITION PROGRAM MANAGER Ot 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 Procedures Code Description Performed By Performed On 88.72 DX ULTRASOUND-HEART 12/30/2012 99.62 HEART COUNTERSHOCK NEC 12/30/2012 37.22 LEFT HEART CARDIAC CATH 11/14/2014 88.53 LT HEART ANGIOCARDIOGRAM 11/14/2014 88.56 CORONAR ARTERIOGR-2 CATH 11/14/2014 [id number] REPOSITION R UP FEMUR WITH INTRAMED FIX, 09/04/2015 0XL4H6C REMOVAL OF INT FIX FROM R UP FEMUR, EXTE 09/16/2015 [id number] REPOSITION RIGHT UPPER FEMUR WITH INT FI 09/16/2015 [id number] DRAIN OF L UP LEG SUBCU/ FASCIA [...] Status Pt. Type Provider Facility Loc./Unit Complaint [id number] 02/10/2018 12:48:00 02/10/2018 23:59:59 CLS Outpatient JOSELUIS BORGES [facility] RAD ABNORMAL SCREENING [id number] 09/13/2017 21:00:00 09/14/2017 15:45:00 DIS Inpatient DANY ESPINAL DO [facility] ICU CHEST PAIN,CHRONIC ATRIAL FIB [id number] 09/04/2017 11:43:00 09/04/2017 16:40:00 DIS Outpatient ARVIND BOGGS MD [facility] SDC TEMPORAL ARTERITIS/ SEVERE HEADACHE [id number] 08/09/2017 10:23:00 08/09/2017 23:59:59 CLS Outpatient FAITH TURK [facility] RAD R92.8 [id number] 08/08/2017 00:25:00 08/08/2017 23:59:59 CLS Preadmit FAITH TURK N [facility] ONC [id number] 05/09/2017 12:00:00 08/07/2017 00:01:00 DIS Outpatient FAITH TURK Evy [facility] ONC [id number] 07/25/2017 17:31:00 07/25/2017 23:59:59 CLS Outpatient KO KENDRICK DO [facility] RAD BACK PAIN [id number] 05/31/2017 06:27:00 05/31/2017 10:05:00 DIS Outpatient YANG VALERA MD [facility] ENDO RECTAL BLEEDING [id number] 05/29/2017 05:34:00 05/29/2017 15:35:00 DIS Outpatient YANG VALERA MD [facility] PREOP COLONOSCOPY [id number] 05/09/2017 15:12:00 05/09/2017 23:59:59 CLS Preadmit ROSALEE FAITH Evy [facility] RAD SCREENING Z12.31 [id number] 05/09/2017 10:38:00 05/09/2017 23:59:59 CLS Preadmit FAITH TURK Evy [facility] ONC [id number] 04/23/2017 14:02:00 04/23/2017 23:59:59 CLS Outpatient ERVIN OSBORNE MD [facility] RAD RT SM,LT RENAL CYST [id number] 04/12/2017 08:15:00 04/12/2017 23:59:59 CLS Outpatient AGATHA ESPINAL TRANSITION PROGRAM MANAGER [facility] RAD ABDOMINAL/PELVIC PAIN [id number] 03/28/2017 10:22:00 03/28/2017 23:59:59 CLS Outpatient FRANCK LARSON DPM [facility] RAD DVT [id number] 03/13/2017 06:00:00 03/13/2017 11:25:00 DIS Outpatient BLAFRANCK JARRETT DPM [facility] SDC EQUINUS DEFORMITY RLE [id number] 03/06/2017 09:10:00 03/06/2017 10:27:00 DIS Outpatient BLANCHO FRANCK PAL [facility] PREOP EQUINUS DEFORMITY RLE [id number] 03/05/2017 00:09:00 03/05/2017 11:15:00 DIS Inpatient SANGEETA MARSHALL MD [facility] ICU CHEST PAIN [id number] 02/06/2017 11:50:00 02/06/2017 23:59:59 CLS Outpatient SHEELA BANUELOS MD [facility] CARD AF,CHEST PAIN,HTN,HLP [id number] 08/14/2016 07:46:00 08/14/2016 23:59:59 CLS Outpatient JOSELUIS BORGES TRANSITION PROGRAM MANAGER [facility] RAD ABNORMAL SCREENING MAMMO [id number] 08/07/2016 10:57:00 08/07/2016 23:59:59 CLS Outpatient JOSELUIS BORGES TRANSITION PROGRAM MANAGER [facility] RAD SCREENING,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 [id number] 05/28/2016 19:14:00 05/28/2016 21:28:00 DIS Emergency JAYE MENG APRN [facility] ER CHEST PAIN [id number] 05/22/2016 11:13:00 05/22/2016 23:59:59 CLS Outpatient DANY ESPINAL DO [facility] RAD F02.81 [id number] 05/10/2016 12:33:00 05/10/2016 23:59:59 CLS Outpatient JOSELUIS BORGES TRANSITION PROGRAM MANAGER [facility] ONC [id number] 03/19/2016 01:26:00 03/22/2016 13:45:00 DIS Inpatient SANGEETA MARSHALL MD [facility] 4TH AMS; SUSPENDED UTI; FEVER [id number] 03/08/2016 21:09:00 03/12/2016 12:07:00 DIS Inpatient NG DO, JOSE ELIAS [facility] 4TH SEPSIS,UTI,AMS [id number] 03/08/2016 01:39:00 03/08/2016 03:44:00 DIS Emergency NELLY SMITH DO [facility] ER AMS,UTI,R LEG PAIN [id number] 03/01/2016 12:00:00 03/01/2016 23:59:59 CLS Outpatient DANY ESPINAL DO [facility] HH POSSIBLE UTI [id number] 02/16/2016 14:52:00 02/16/2016 23:59:59 CLS Outpatient DANY ESPINAL DO [facility] UTI, HYPOTHYROIDISM [id number] 01/30/2016 17:30:00 02/02/2016 14:30:00 DIS Inpatient SANGEETA MARSHALL MD [facility] 4TH UTI,CONFUSION [id number] 01/28/2016 18:13:00 01/28/2016 23:59:59 CLS Outpatient AGATHA ESPINAL TRANSITION PROGRAM MANAGER [facility] LAB UTI [id number] 11/15/2015 10:07:00 11/15/2015 23:59:59 CLS Outpatient MEGHA PANDA MD [facility] GLC CELLULITIS, VANCO IV [id number] 10/15/2015 15:55:00 10/19/2015 16:30:00 DIS Inpatient MEGHA PANDA MD [address] EXTENSIVE CELLULITIS RT HIP,FEVER,S/P RT HIP IF [id number] 09/15/2015 14:20:00 09/23/2015 14:37:00 DIS Inpatient MEGHA MATIAS MD [facility] 4TH HARDWARE FAILURE [id number] 09/08/2015 13:29:00 09/15/2015 13:30:00 DIS Inpatient VENUS PARTIDA MD [facility] IRF RIGHT HIP FRACTURE, CLOSED [id number] 09/03/2015 18:45:00 09/08/2015 11:15:00 DIS Inpatient MEGHA PANDA MD [facility] 4TH RIGHT HIP FRACTURE, CLOSED [id number] 07/05/2015 10:30:00 07/05/2015 23:59:59 CLS Outpatient MEGHA PANDA MD [facility] DIABETES,CHRONIC DIURETIC USE [id number] 06/24/2015 10:40:00 06/24/2015 23:59:59 CLS Outpatient MEGHA PANDA MD [facility] DM, HYPOPOTASSEMIA [id number] 06/17/2015 12:00:00 06/17/2015 23:59:59 CLS Outpatient MEGHA PANDA MD [facility] HYPONATREMIA [id number] 05/20/2015 14:13:00 06/16/2015 09:42:00 DIS Outpatient RAVEN LEO APRN [facility] REHAB MUSCULOSKELETAL CHEST AND SHOULDER PAIN [id number] 06/14/2015 11:45:00 06/14/2015 14:36:00 DIS Outpatient WILLARD PARR [facility] CARD AFIB,HTN, SYNCOPE [id number] 06/08/2015 21:25:00 06/10/2015 13:15:00 DIS Inpatient MEGHA PANDA MD [facility] SURGICAL HYPONATREMIA, AMS, WEAKNESS [id number] 05/25/2015 07:00:00 05/27/2015 14:20:00 DIS Inpatient MEGHA PANDA MD [facility] SURGICAL FALL/CONTUSION [id number] 05/18/2015 14:02:00 05/18/2015 23:59:59 CLS Outpatient FAITH TURK [facility] RAD BREAST CA [id number] 05/12/2015 13:11:00 05/12/2015 23:59:59 CLS Outpatient FAITH TURK [facility] ONC [id number] 05/03/2015 13:04:00 05/03/2015 23:59:59 CLS Outpatient ERVIN OSBORNE MD [facility] RAD LEFT RENAL CYST [id number] 04/08/2015 21:00:00 04/09/2015 13:25:00 DIS Inpatient MEGHA PANDA MD [facility] ICU CHEST PAIN [id number] 01/10/2015 10:18:00 01/10/2015 23:59:59 CLS Outpatient SHEELA BANUELOS MD [facility] REHAB LEG AND BACK PAIN [id number] 11/29/2014 09:14:00 11/29/2014 23:59:59 CLS Outpatient MEGHA PANDA MD [facility] RAD F/U CHF [id number] 11/16/2014 10:19:00 11/16/2014 12:59:00 DIS Emergency DANY HOLLIS DO [facility] ER CHEST PAINS [id number] 11/14/2014 15:42:00 11/15/2014 16:15:00 DIS Inpatient MEGHA PANDA MD [facility] ICU CHEST AND SHOULDER PAIN [id number] 11/01/2014 14:09:00 11/01/2014 23:59:59 CLS Outpatient ERVIN OSBORNE MD [facility] RAD LEFT RENAL CYST [id number] 10/28/2014 14:49:00 10/28/2014 23:59:59 CLS Outpatient RAVEN LEO APRN [facility] RAD SOB,BLE PAIN [id number] 10/14/2014 12:15:00 10/14/2014 23:59:59 CLS Outpatient MEGHA PANDA MD [facility] RAD COUGH [id number] 07/18/2014 12:07:00 07/18/2014 23:59:59 CLS Outpatient [id number] 06/03/2014 21:01:00 06/04/2014 07:38:00 DIS Outpatient CORBY SULTANA MD [facility] SLEEP MADELYN [id number] 06/01/2014 15:12:00 06/01/2014 23:59:59 CLS Outpatient FAITH TURK [facility] RAD SCREENING [id number] 05/13/2014 13:29:00 05/13/2014 23:59:59 CLS Outpatient FAITH TURK [facility] ONC [id number] 05/04/2014 13:59:00 05/04/2014 23:59:59 CLS Outpatient ERVIN OSBORNE MD [facility] RAD LEFT RENAL CYST,RAML [id number] 12/16/2013 07:13:00 12/16/2013 10:35:00 DIS Outpatient ARI GASTELUM MD [facility] SDC DYSPHAGIA [id number] 12/09/2013 07:36:00 12/09/2013 23:59:59 CLS Outpatient ARI GASTELUM MD [facility] PREOP DYSPHAGIA [id number] 12/03/2013 13:16:00 12/03/2013 23:59:59 CLS Outpatient JOSELUIS BORGES [facility] RAD SIX MONTH FOLLOW-UP [id number] 11/04/2013 14:02:00 11/04/2013 23:59:59 CLS Outpatient ERVIN OSBORNE MD [facility] RAD LT RENAL CYST [id number] 06/01/2013 14:05:00 06/01/2013 23:59:59 CLS Outpatient FAITH TURK [facility] RAD FOLLOW-UP,HX CA BREAST [id number] 04/28/2013 13:07:00 04/28/2013 23:59:59 CLS Outpatient ERVIN OSBORNE MD [facility] RAD RENAL MASSES [id number] 03/23/2013 14:02:00 03/23/2013 23:59:59 CLS Outpatient MEGHA PANDA MD [facility] LAB [id number] 03/23/2013 13:33:00 03/23/2013 23:59:59 CLS Outpatient FAITH TURK [facility] ONC [id number] 04/17/2016 09:14:00 Document Registration [id number] 09/06/2015 17:01:00 Document Registration [id number] 11/29/2014 09:14:00 Document Registration [id number] 01/01/2013 18:45:00 Document Registration [id number] 12/28/2012 17:05:00 Document Registration [id number] 12/01/2012 13:35:00 Document Registration [id number] 11/28/2012 12:10:00 Document Registration [id number] 09/16/2012 19:40:00 Document Registration [id number] 05/13/2012 05:38:00 Document Registration [id number] 05/08/2012 11:44:00 Document Registration [id number] 05/06/2012 12:30:00 Document Registration [id number] 04/29/2012 07:26:00 Document Registration [id number] 04/08/2012 13:03:00 Document Registration [id number] 03/26/2012 15:10:00 Document Registration [id number] 03/24/2012 10:29:00 Document Registration [id number] 12/17/2011 07:36:00 Document Registration [id number] 09/21/2011 21:48:00 Document Registration [id number] 09/06/2011 05:38:00 Document Registration [id number] 09/04/2011 09:37:00 Document Registration [id number] 07/18/2011 08:49:00 Document Registration [id number] 07/11/2011 06:30:00 Document Registration [id number] 04/30/2011 18:01:00 Document Registration [id number] 04/25/2011 13:30:00 Document Registration [id number] 03/12/2011 13:01:00 Document Registration [id number] 03/02/2011 13:14:00 Document Registration [id number] 02/19/2011 12:40:00 Document Registration [id number] 07/07/2010 15:10:00 Document Registration [id number] 04/07/2010 16:16:00 Document Registration [id number] 03/17/2010 15:02:00 Document Registration [id number] 03/07/2010 14:00:00 Document Registration [id number] 03/02/2010 12:39:00 Document Registration [id number] 03/02/2010 12:35:00 Document Registration [id number] 02/23/2010 09:02:00 Document Registration [id number] 02/13/2010 14:39:00 Document Registration [id number] 12/07/2009 10:08:00 Document Registration [id number] 12/07/2009 10:07:00 Document Registration [id number] 10/07/2009 12:26:00 Document Registration [id number] 09/28/2009 10:28:00 Document Registration [id number] 09/21/2009 11:39:00 Document Registration [id number] 08/30/2009 00:00:00 Document Registration [id number] 08/23/2009 13:57:00 Document Registration [id number] 08/17/2009 13:00:00 Document Registration [id number] 08/12/2009 12:31:00 Document Registration [id number] 07/06/2015 08:10:04 ACT Document Registration [id number] 01/03/2018 14:30:00 01/03/2018 23:59:59 [facility] Outpatient DARCY HAN APRN [facility]
== END 2018-03-08 17:50 | disposition home or self-care (01) ==
LOC: EDUNIT# 17:37 → ER 17:40
DX: R04.0 Epistaxis (principal); J44.9 Chronic obstructive pulmonary disease, unspecified; G47.30 Sleep apnea, unspecified; E11.9 Type 2 diabetes mellitus without complications; I25.10 Atherosclerotic heart disease of native coronary artery without angina pectoris; E78.00 Pure hypercholesterolemia, unspecified; I10 Essential (primary) hypertension; F41.9 Anxiety disorder, unspecified; F32.9 Major depressive disorder, single episode, unspecified; F03.90 Unspecified dementia, unspecified severity, without behavioral disturbance, psychotic disturbance, mood disturbance, and anxiety; I48.91 Unspecified atrial fibrillation; Z86.718 Personal history of other venous thrombosis and embolism; Z87.828 Personal history of other (healed) physical injury and trauma; Z86.711 Personal history of pulmonary embolism; Z87.2 Personal history of diseases of the skin and subcutaneous tissue; Z90.49 Acquired absence of other specified parts of digestive tract; Z90.710 Acquired absence of both cervix and uterus; Z90.89 Acquired absence of other organs; Z87.448 Personal history of other diseases of urinary system; Z87.19 Personal history of other diseases of the digestive system; Z87.81 Personal history of (healed) traumatic fracture; Z85.3 Personal history of malignant neoplasm of breast; Z98.890 Other specified postprocedural states; Z90.10 Acquired absence of unspecified breast and nipple; Z79.4 Long term (current) use of insulin; Z79.01 Long term (current) use of anticoagulants; Z88.0 Allergy status to penicillin; Z88.5 Allergy status to narcotic agent; Z88.2 Allergy status to sulfonamides; Z88.8 Allergy status to other drugs, medicaments and biological substances
CPT/HCPCS: 99281

== ENCOUNTER 2018-03-11 09:58 | Emergency (ER) | payer MEDICARE, MEDICAID ==
[~2018-03-11] VITALS: Ht 175.3 cm; Wt 90.7 kg
--- OUTSIDE RECORDS SUMMARY | 2018-03-11 10:04 | XMS REPORT | Clinical Summary ---
Author Author [facility] Organization [facility] Address Unknown Phone Unavailable Care Team Providers Care Card Decorator Name Role Phone Darien Salguero MD Unavailable Source Comments Some departments are not documenting in the electronic medical record. If you do not see the information that you expected, contact Release of Information in the Health Information Management department at [phone] for further assistance in locating additional records.[facility] Allergies Active Allergy Reactions Severity Noted Date [...] results. -- F/U with Dr. Sethi in [place] for further urological issues (already has an [...]
[2018-03-11] MEDS ORDERED: ONDANSETRON 4 MG/2 ML (SDV) Z0FRAN IVP ONE (10:15)
--- OUTSIDE RECORDS SUMMARY | 2018-03-11 10:21 | XMS REPORT | Continuity of Care Document ---
Author Author [facility] Organization [facility] Address Unknown Phone Unavailable Allergies Active Description Code Type Severity Reaction Onset Reported/Identified Relationship to Patient Clinical Status Yes Sulfa (Sulfonamide Antibiotics) [id number] Drug Allergy Mild N/A 2008 Yes codeine [id number] Drug Allergy Mild N/A 09/15/2015 Yes codeine [id number] Drug Allergy Mild PT TAKES HYDROC 03/06/2017 Yes nitrofurantoin [id number] Drug Allergy Mild RASH 03/06/2017 Yes Penicillins [id number] Drug Allergy Mild N/A 03/06/2017 Yes sulfur dioxide [id number] Drug Allergy Unknown N/A 03/06/2017 Medications There [...] PANDA MD Ot 414.01 CORONARY ATHEROSCLEROSIS OF [place] CORON 11/15/2014 MEGHA PANDA MD Ot 427.31 [...] E944.4 ADV EFF DIURETICS NEC 11/15/2014 MEGHA APNDA MD Ot V10.3 HX OF BREAST MALIGNANCY [...] 11/16/2014 MEGHA PANDA MD Ot 410.71 11/16/2014 MEGAH PANDA MD Ot 414.01 11/16/2014 MEGHA PANDA [...] MEGHA PANDA MD Ot 276.1 11/16/2014 MEGHA PNADA MD Ot 278.00 11/16/2014 MEGHA PANDA MD [...] ERVIN A Ot 753.10 11/29/2014 JOSELUIS BORGES TONGUE PRESSER Ot 174.9 11/29/2014 BORGESJOSELUIS Devi TONGUE PRESSER Ot V67.9 11/29/2014 INDIA MOULTON, ERVIN A Ot 593.2 11/29/2014 NIRAV MOULTON, [facility] Ot V72.84 11/29/2014 INDIA MOULTON, ERVIN A Ot 593.2 11/29/2014 ROSALEEFAITH RABAGO N Ot 174.9 11/29/2014 ROSALEEFAITH RABAGO N Ot V67.9 11/29/2014 ROSALEEFAITH RABAGO N Ot 793.80 11/29/2014 RAVEN LEO SQUILGEER Ot 729.5 11/29/2014 RAVEN LEO SQUILGEER Ot 786.05 11/29/2014 INDIA MOULTON, ERVIN Lanier Ot 593.2 11/29/2014 RAVEN LEO APRN Ot 729.5 11/29/2014 RAVEN LEO SQUILGEER Ot 786.05 11/30/2014 RAVEN LEO SQUILGEER Ot 729.5 11/30/2014 RAVEN LEO APRN Ot [...] ERVIN Lanier Ot 753.10 11/30/2014 JOSELUIS BORGES TONGUE PRESSER Ot 174.9 11/30/2014 JOSELUIS BORGES TONGUE PRESSER Ot V67.9 11/30/2014 INDIA MOULTON, ERVIN Lanier [...] PANDA MD Ot 414.01 CORONARY ATHEROSCLEROSIS OF [place] CORON 04/09/2015 MEGHA PANDA MD Ot 493.00 [...] ERVIN Lanier Ot 753.10 05/03/2015 JOSELUIS BORGES TONGUE PRESSER Ot 174.9 05/03/2015 JOSELUIS BORGES TONGUE PRESSER Ot V67.9 05/03/2015 INDIA MOULTON, ERVIN A Ot 593.2 05/03/2015 NIRAV MOULTON, ARI Ot V72.84 05/03/2015 INDIA MOULTON, ERVIN A Ot 593.2 05/03/2015 FAITH TURK N Ot 174.9 05/03/2015 FAITH TURK N Ot V67.9 05/03/2015 FAITH TURK N Ot 793.80 05/03/2015 RAVEN LEO SQUILGEER Ot 729.5 05/03/2015 RAVEN LEO APRN Ot [...] ERVIN A Ot 753.10 05/18/2015 JOSELUIS BORGES TONGUE PRESSER Ot 174.9 05/18/2015 BORGESJOSELUIS Devi TONGUE PRESSER Ot V67.9 05/18/2015 INDIA MOULTON, ERVIN A Ot 593.2 05/18/2015 NIRAV MOULTON, [facility] Ot V72.84 05/18/2015 INDIA MOULTON, ERVIN A Ot 593.2 05/18/2015 ROSALEE, BOBAN N Ot 174.9 05/18/2015 ROSALEE, FAITH N Ot V67.9 05/18/2015 ROSALEE, BOBAN N Ot 793.80 05/18/2015 RAVEN LEO SQUILGEER Ot 729.5 05/18/2015 RAVEN LEO SQUILGEER Ot 786.05 05/18/2015 INDIA MOULTON, ERVIN Lanier Ot 593.2 05/18/2015 FARZAD MOULTON, MEGHA Ku Ot 428.0 05/18/2015 RAVEN LEO SQUILGEER Ot 719.41 05/18/2015 RAVEN LEO SQUILGEER Ot 786.59 05/18/2015 RAVEN LEO SQUILGEER Ot V57.1 05/18/2015 INDIA MOULTON, ERVIN A Ot 753.10 05/18/2015 ROSALEE, BOBAN N Ot V10.3 05/18/2015 ROSALEE, BOBAN N Ot V12.51 05/18/2015 ROSALEE, BOBAN N Ot V12.55 05/18/2015 ROSALEE, BOBAN N Ot V45.71 05/18/2015 FAITH TURK N Ot V58.61 05/18/2015 FAITH TURK N Ot V58.69 05/18/2015 FAITH TURK Ot V67.2 05/23/2015 RAVEN LEO SQUILGEER Ot 719.41 05/23/2015 RAVEN LEO SQUILGEER Ot 786.59 05/23/2015 RAVEN LEO SQUILGEER Ot V57.1 05/23/2015 ERVIN OSBORNE MD Ot [...] ERVIN Lanier Ot 753.10 05/25/2015 JOSELUIS BORGES TONGUE PRESSER Ot 174.9 05/25/2015 JOSELUIS BORGES TONGUE PRESSER Ot V67.9 05/25/2015 INDIA MOULTON, ERVIN Lanier Ot 593.2 05/25/2015 NIRAV MOULTON, ARI Ot V72.84 05/25/2015 INDIA MOULTON, ERVIN Lanier Ot 593.2 05/25/2015 ROSALEE, BOBAN N Ot 174.9 05/25/2015 ROSALEE, BOBAN N Ot V67.9 05/25/2015 ROSALEE, BOBAN N Ot 793.80 05/25/2015 AHMET, RAVEN R SQUILGEER Ot 729.5 05/25/2015 AHMET, RAVEN R SQUILGEER Ot 786.05 05/25/2015 INDIA MOULTON, ERVIN Lanier Ot 593.2 05/25/2015 FARZAD MOULTON, MEGHA Ku Ot 428.0 05/25/2015 AHMET, RAVEN R SQUILGEER Ot 719.41 05/25/2015 AHMET, RAVEN R SQUILGEER Ot 786.59 05/25/2015 AHMET, RAVEN R SQUILGEER Ot V57.1 05/25/2015 INDIA MOULTON, ERVIN A Ot 753.10 05/25/2015 ROSALEE, BOBAN N Ot V10.3 05/25/2015 ROSALEE, BOBAN N Ot V12.51 05/25/2015 ROSALEE, BOBAN N Ot V12.55 05/25/2015 ROSALEE, BOBAN N Ot V45.71 05/25/2015 ROSALEE, BOBAN N Ot V58.61 05/25/2015 ROSALEE, BOBAN N Ot V58.69 05/25/2015 ROSALEE, BOBAN N Ot V67.2 05/25/2015 ROSALEE, BOBAN N Ot 174.9 05/25/2015 AHMET, RAVEN R SQUILGEER Ot 719.41 05/25/2015 AHMET, RAVEN R SQUILGEER Ot 786.59 05/25/2015 AHMET, RAVEN R SQUILGEER Ot V57.1 05/25/2015 AHMET, RAVEN R SQUILGEER Ot 719.41 05/25/2015 AHMET, RAVEN R SQUILGEER Ot 786.59 05/25/2015 AHMET, RAVEN R SQUILGEER Ot V57.1 05/25/2015 AHMET, RAVEN R SQUILGEER Ot 719.41 05/25/2015 AHMET, RAVEN R SQUILGEER Ot 786.59 05/25/2015 AHMET, RAVEN R SQUILGEER Ot V57.1 05/27/2015 FARZAD MOULTON, MEGHA Ku [...] WILLARD PARR Ot 272.4 HYPERLIPIDEMIA NEC/NOS 06/14/2015 WILALRD PARR Ot 278.00 OBESITY, NOS 06/14/2015 WILLARD PARR Ot 401.9 HYPERTENSION NOS 06/14/2015 WILLARD PARR Ot 427.31 ATRIAL FIBRILLATION 06/14/2015 WILLARD PARR Ot 780.2 SYNCOPE AND COLLAPSE 06/14/2015 FAITH TURK N Ot 174.9 06/16/2015 RAVEN LEO APRN Ot 719.41 JOINT PAIN-SHLDER 06/16/2015 RAVEN LEO SQUILGEER Ot 786.59 CHEST PAIN NEC 06/16/2015 RAVEN [...] ADULT 09/08/2015 MEGHA PANDA MD, Ot Z79.01 [facility] (CURRENT) USE OF ANTICOAGULANT 09/08/2015 MEGHA PANDA MD, Ot Z79.4 [facility] (CURRENT) USE OF INSULIN 09/08/2015 MEGHA PANDA [...] ADULT 09/23/2015 MEGHA MATIAS MD, Ot Z79.01 LOGISTICS SUPPORT (CURRENT) USE OF ANTICOAGULANT 09/23/2015 MEGHA MATIAS MD, Ot Z79.4 [facility] (CURRENT) USE OF INSULIN 10/19/2015 MEGHA PANDA [...] ADULT 10/19/2015 MEGHA PANDA MD, Ot Z79.4 LOGISTICS SUPPORT (CURRENT) USE OF INSULIN 12/06/2015 MEGHA PANDA [...] SPECIF 02/02/2016 SANGEETA MARSHALL MD Ot Z79.4 LOGISTICS SUPPORT (CURRENT) USE OF INSULIN 02/17/2016 DANY ESPINAL DO Ot E03.9 02/17/2016 DANY ESPINAL DO Ot I48.2 02/17/2016 DANY ESPINAL DO Ot N39.0 02/22/2016 AGATHA ESPINAL TONGUE PRESSER Ot N39.0 03/01/2016 AGATHA ESPINAL TONGUE PRESSER Ot N39.0 03/06/2016 DANY ESPINAL DO Ot [...] UNSPECIFIED 03/21/2016 SANGEETA MARSHALL MD Ot Z79.01 LOGISTICS SUPPORT (CURRENT) USE OF ANTICOAGULANT 03/21/2016 SANGEETA MARSHALL MD Ot Z79.4 LOGISTICS SUPPORT (CURRENT) USE OF INSULIN 03/21/2016 SANGEETA MARSHALL [...] QUADRIPLEGIA 03/22/2016 SANGEETA MARSHALL MD Ot Z79.01 LOGISTICS SUPPORT (CURRENT) USE OF ANTICOAGULANT 03/22/2016 SANGEETA MARSHALL MD Ot Z79.4 [facility] (CURRENT) USE OF INSULIN 03/22/2016 SANGEETA MARSHALL [...] CYSTIC KIDNEY DISEASE, UNSPECIFIED 04/26/2016 JOSELUIS BORGES TONGUE PRESSER Ot 174.9 MALIGN NEOPL BREAST NOS 04/26/2016 JOSELUIS BORGES TONGUE PRESSER Ot V67.9 FOLLOW-UP EXAM NOS 04/26/2016 ERVIN OSBORNE MD Ot 593.2 CYST OF KIDNEY, ACQUIRED 04/26/2016 [facility]AV [facility]LTON[facility] Ot V72.84 EXAM PRE-OPERATIVE NOS 04/26/2016 ERVIN OSBORNE MD Ot 593.2 CYST OF KIDNEY, ACQUIRED 04/26/2016 FAITH TURK Ot 174.9 MALIGN NEOPL BREAST NOS 04/26/2016 FAITH TURK Ot V67.9 FOLLOW-UP EXAM NOS 04/26/2016 FAITH TURK Ot 793.80 UNSPEC ABNORMAL MAMMOGRAM 04/26/2016 RAVEN LEO SQUILGEER Ot 729.5 PAIN IN LIMB 04/26/2016 RAVEN LEO SQUILGEER Ot 786.05 SHORTNESS OF BREATH 04/26/2016 ERVIN [...] MON 04/26/2016 MEGHA PANDA MD Ot Z79.2 LOGISTICS SUPPORT (CURRENT) USE OF ANTIBIOTICS 04/26/2016 AGATHA ESPINAL [...] TRTMT FO 05/11/2016 JOSELUIS BORGES Ot Z79.01 [facility] (CURRENT) USE OF ANTICOAGULANT 05/11/2016 JOSELUIS BORGESP Ot Z85.3 PERSONAL HISTORY OF MALIGNANT NEOPLASM O 05/11/2016 JOSELUIS BORGES Ot Z86.718 PERSONAL HISTORY OF OTHER VENOUS THROMBO 05/11/2016 JOSELUIS BORGES Ot Z90.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 05/11/2016 JOSELUIS BORGES Ot Z08 ENCNTR FOR FOLLOW-UP EXAM AFTER TRTMT FO 05/11/2016 JOSELUIS BORGES Ot Z79.01 LOGISTICS SUPPORT (CURRENT) USE OF ANTICOAGULANT 05/11/2016 JOSELUIS BORGESP Ot Z85.3 PERSONAL HISTORY OF MALIGNANT NEOPLASM O 05/11/2016 BORGESJOSELUIS Devi JASON Ot Z86.718 PERSONAL HISTORY OF OTHER VENOUS THROMBO 05/11/2016 BORGESJOSELUIS Devi TONGUE PRESSER Ot Z90.11 ACQUIRED ABSENCE OF RIGHT BREAST [...] Ot F02.81 DEMENTIA IN OT DISEASES [facility] W 05/24/2016 DANY ESPINAL DO Ot 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, 05/25/2016 NELLY SMITH DO Ot I51.7 CARDIOMEGALY 05/25/2016 NELLY SMITH DO Ot N39.0 URINARY TRACT INFECTION, SITE NOT SPECIF 05/25/2016 NELLY SMITH DO Ot R09.89 [facility] SYMPTOMS AND SIGNS INVOLVING THE [...] CYSTIC KIDNEY DISEASE, UNSPECIFIED 05/28/2016 JOSELUIS BORGES TONGUE PRESSER Ot 174.9 MALIGN NEOPL BREAST NOS 05/28/2016 JOSELUIS BORGES TONGUE PRESSER Ot V67.9 FOLLOW-UP EXAM NOS 05/28/2016 ERVIN OSBORNE MD Ot 593.2 CYST OF KIDNEY, ACQUIRED 05/28/2016 NIRAV MOULTON, ARI Ot V72.84 EXAM PRE-OPERATIVE NOS 05/28/2016 ERVIN OSBORNE MD Ot 593.2 CYST OF KIDNEY, ACQUIRED 05/28/2016 FAITH TURK Ot 174.9 MALIGN NEOPL BREAST NOS 05/28/2016 FAITH TURK Ot V67.9 FOLLOW-UP EXAM NOS 05/28/2016 FAITH TURK Ot 793.80 UNSPEC ABNORMAL MAMMOGRAM 05/28/2016 RAVEN LEO SQUILGEER Ot 729.5 PAIN IN LIMB 05/28/2016 RAVEN LEO SQUILGEER Ot 786.05 SHORTNESS OF BREATH 05/28/2016 ERVIN [...] MON 05/28/2016 MEGHA PANDA MD Ot Z79.2 [facility] (CURRENT) USE OF ANTIBIOTICS 05/28/2016 AGATHA ESPINAL [...] AFTER TRTMT FO 05/28/2016 BORGES, HILAH S TONGUE PRESSER Ot Z79.01 LOGISTICS SUPPORT (CURRENT) USE OF ANTICOAGULANT 05/28/2016 JOSELUIS BORGES TONGUE PRESSER Ot Z85.3 PERSONAL HISTORY OF MALIGNANT NEOPLASM O 05/28/2016 JOSELUIS BORGESP Ot Z86.718 PERSONAL HISTORY OF OTHER VENOUS THROMBO 05/28/2016 JOSELUIS BORGES TONGUE PRESSER Ot Z90.11 ACQUIRED ABSENCE OF RIGHT BREAST [...] R07.89 OTHER CHEST PAIN 05/30/2016 JOSELUIS BORGES TONGUE PRESSER Ot Z08 ENCNTR FOR FOLLOW-UP EXAM AFTER TRTMT FO 05/30/2016 JOSELUIS BORGES TONGUE PRESSER Ot Z79.01 [facility] (CURRENT) USE OF ANTICOAGULANT 05/30/2016 JOSELUIS BORGES TONGUE PRESSER Ot Z85.3 PERSONAL HISTORY OF MALIGNANT NEOPLASM O 05/30/2016 JOSELUIS BORGES TONGUE PRESSER Ot Z86.718 PERSONAL HISTORY OF OTHER VENOUS THROMBO 05/30/2016 JOSELUIS BORGES TONGUE PRESSER Ot Z90.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 05/31/2016 JAYE MENG SQUILGEER Ot I48.2 CHRONIC ATRIAL FIBRILLATION 05/31/2016 JAYE MENG SQUILGEER Ot I50.9 HEART FAILURE, UNSPECIFIED 05/31/2016 JAYE MENG APRN Ot K59.00 CONSTIPATION, UNSPECIFIED 05/31/2016 JAYE MENG SQUILGEER Ot R07.89 OTHER CHEST PAIN 06/07/2016 JOSELUIS BORGES TONGUE PRESSER Ot Z08 ENCNTR FOR FOLLOW-UP EXAM AFTER TRTMT FO 06/07/2016 JOSELUIS BORGES TONGUE PRESSER Ot Z79.01 LOGISTICS SUPPORT (CURRENT) USE OF ANTICOAGULANT 06/07/2016 JOSELUIS BORGES TONGUE PRESSER Ot Z85.3 PERSONAL HISTORY OF MALIGNANT NEOPLASM [...] CYSTIC KIDNEY DISEASE, UNSPECIFIED 07/11/2016 JOSELUIS BORGES TONGUE PRESSER Ot 174.9 MALIGN NEOPL BREAST NOS 07/11/2016 JOSELUIS BORGES TONGUE PRESSER Ot V67.9 FOLLOW-UP EXAM NOS 07/11/2016 INDIA [...] 793.80 UNSPEC ABNORMAL MAMMOGRAM 07/11/2016 RAVEN LEO SQUILGEER Ot 729.5 PAIN IN LIMB 07/11/2016 RAVEN LEO SQUILGEER Ot 786.05 SHORTNESS OF BREATH 07/11/2016 INDIA [...] MON 07/11/2016 MEGHA PANDA MD, Ot Z79.2 [facility] (CURRENT) USE OF ANTIBIOTICS 07/11/2016 AGATHA ESPINAL [...] TRTMT FO 07/11/2016 JOSELUIS BORGES Ot Z79.01 [facility] (CURRENT) USE OF ANTICOAGULANT 07/11/2016 JOSELUIS BORGES [...] MON 07/11/2016 MEGHA PANDA MD Ot Z79.2 [facility] (CURRENT) USE OF ANTIBIOTICS 07/11/2016 MEGHA PANDA MD, Ot L03.90 CELLULITIS, UNSPECIFIED 07/11/2016 MEGHA PANDA MD Ot Z51.81 ENCOUNTER FOR THERAPEUTIC DRUG LEVEL MON 07/11/2016 MEGHA PANDA MD, Ot Z79.2 LOGISTICS SUPPORT (CURRENT) USE OF ANTIBIOTICS 08/07/2016 JOSELUIS BORGES TONGUE PRESSER Ot Z12.31 ENCNTR SCREEN MAMMOGRAM FOR MALIGNANT NE 08/08/2016 JOSELUIS BORGES TONGUE PRESSER Ot Z12.31 ENCNTR SCREEN MAMMOGRAM FOR MALIGNANT NE 08/08/2016 JOSELUIS BORGES TONGUE PRESSER Ot Z12.31 ENCNTR SCREEN MAMMOGRAM FOR MALIGNANT NE 08/14/2016 JOSELUIS BORGES TONGUE PRESSER Ot R92.8 OTH ABN AND INCONCLUSIVE FINDINGS ON DX 08/15/2016 JOSELUIS BORGES TONGUE PRESSER Ot R92.8 OTH ABN AND INCONCLUSIVE FINDINGS ON DX 08/15/2016 JOSELUIS BORGES TONGUE PRESSER Ot R92.8 OTH ABN AND INCONCLUSIVE FINDINGS ON DX 08/29/2016 JOSELUIS BORGES TONGUE PRESSER Ot Z12.31 ENCNTR SCREEN MAMMOGRAM FOR MALIGNANT NE 09/05/2016 JOSELUIS BORGES TONGUE PRESSER Ot R92.8 OTH ABN AND INCONCLUSIVE FINDINGS ON DX 09/05/2016 JOSELUIS BORGES TONGUE PRESSER Ot Z12.31 ENCNTR SCREEN MAMMOGRAM FOR MALIGNANT NE 09/12/2016 JOSELUIS BORGES TONGUE PRESSER Ot R92.8 OTH ABN AND INCONCLUSIVE FINDINGS [...] CYSTIC KIDNEY DISEASE, UNSPECIFIED 02/06/2017 JOSELUIS BORGES TONGUE PRESSER Ot 174.9 MALIGN NEOPL BREAST NOS 02/06/2017 JOSELUIS BORGES TONGUE PRESSER Ot V67.9 FOLLOW-UP EXAM NOS 02/06/2017 ERVIN OSBORNE MD Ot 593.2 CYST OF KIDNEY, ACQUIRED 02/06/2017 NIRAV MOULTON, ARI Ot V72.84 EXAM PRE-OPERATIVE NOS 02/06/2017 ERVIN OSBORNE MD Ot 593.2 CYST OF KIDNEY, ACQUIRED 02/06/2017 FAITH TURK Ot 174.9 MALIGN NEOPL BREAST NOS 02/06/2017 FAITH TURK Ot V67.9 FOLLOW-UP EXAM NOS 02/06/2017 FAITH TURK Ot 793.80 UNSPEC ABNORMAL MAMMOGRAM 02/06/2017 RAVEN LEO SQUILGEER Ot 729.5 PAIN IN LIMB 02/06/2017 RAVEN LEO SQUILGEER Ot 786.05 SHORTNESS OF BREATH 02/06/2017 ERVIN [...] MON 02/06/2017 MEGHA PANDA MD Ot Z79.2 [facility] (CURRENT) USE OF ANTIBIOTICS 02/06/2017 AGATHA ESPINAL [...] TRTMT FO 02/06/2017 JOSELUIS BORGES Ot Z79.01 [facility] (CURRENT) USE OF ANTICOAGULANT 02/06/2017 JOSELUIS BORGES [...] DISEASE OF NERVOUS SYSTEM, 02/06/2017 JOSELUIS BORGES TONGUE PRESSER Ot R92.8 OT ABN AND INCONCLUSIVE FINDINGS [...] MD Ot I25.10 ATHSCL HEART DISEASE OF [place] CORONARY 03/05/2017 SANGEETA MARSHALL MD Ot I27.2 OTHER SECONDARY PULMONARY HYPERTENSION 03/05/2017 SANGEETA MARSHALL MD Ot I48.0 PAROXYSMAL ATRIAL FIBRILLATION 03/05/2017 SANGEETA MARSHALL MD Ot I65.23 OCCLUSION AND STENOSIS OF BILATERAL [place] 03/05/2017 SANGEETA MARSHALL MD Ot R07.9 CHEST PAIN, UNSPECIFIED 03/05/2017 SANGEETA MARSHALL MD Ot Z68.30 BODY MASS INDEX (BMI) 30.0-30.9, ADULT 03/05/2017 SANEGETA MARSHALL MD Ot Z86.718 PERSONAL HISTORY OF [...] MD Ot I25.10 ATHSCL HEART DISEASE OF [place] CORONARY 03/05/2017 SANGEETA MARSHALL MD Ot I27.2 [...] Ot 174.9 MALIGN NEOPL BREAST NOS 03/13/2017 MEGAH PANDA MD Ot 453.40 ACUTE VENOUS EMBOLISM THROMBOSIS UNSP 03/13/2017 FAITH TURK Ot V10.3 HX OF BREAST MALIGNANCY 03/13/2017 FAITH TURK Ot V67.9 FOLLOW-UP EXAM NOS 03/13/2017 ERVIN OSBORNE MD Ot 593.9 RENAL URETERAL DIS NOS 03/13/2017 INDIA MOULTON, ERVIN Lanier Ot 753.10 CYSTIC KIDNEY DISEASE, UNSPECIFIED 03/13/2017 JOSELUIS BORGES TONGUE PRESSER Ot 174.9 MALIGN NEOPL BREAST NOS 03/13/2017 JOSELUIS BORGES TONGUE PRESSER Ot V67.9 FOLLOW-UP EXAM NOS 03/13/2017 ERVIN [...] 793.80 UNSPEC ABNORMAL MAMMOGRAM 03/13/2017 RAVEN LEO SQUILGEER Ot 729.5 PAIN IN LIMB 03/13/2017 RAVEN LEO SQUILGEER Ot 786.05 SHORTNESS OF BREATH 03/13/2017 INDIA [...] MON 03/13/2017 MEGHA PANDA MD Ot Z79.2 [facility] (CURRENT) USE OF ANTIBIOTICS 03/13/2017 AGATHA ESPINAL [...] TRTMT FO 03/13/2017 JOSELUIS BORGES Ot Z79.01 [facility] (CURRENT) USE OF ANTICOAGULANT 03/13/2017 JOSELUIS BORGES [...] 03/13/2017 BLAXOCHILTHO DPM, FRANCK Stanton Ot Z79.4 [facility] (CURRENT) USE OF INSULIN 03/13/2017 JOAOHO DPAsh, FRANCK Maximino Ot Z79.84 LOGISTICS SUPPORT (CURRENT) USE OF ORAL HYPOGLYC 03/13/2017 JOAOHO DPAsh FRANCK Stanton Ot Z79.899 OTHER LOGISTICS SUPPORT (CURRENT) DRUG THERAPY 03/28/2017 Ot 250.00 DIAB [...] V67.09 SURGERY FOLLOW-UP, OTHER SURGERY 03/28/2017 MEGHA APNDA MD Ot 786.2 COUGH 03/28/2017 Ot 729.5 PAIN IN LIMB 03/28/2017 Ot V12.51 HX-VENOUS THROMBOSIS EMBOLISM 03/28/2017 FAITH TURK Ot 174.9 MALIGN NEOPL BREAST NOS 03/28/2017 MEGHA PNADA MD Ot 453.40 ACUTE VENOUS EMBOLISM THROMBOSIS UNSP 03/28/2017 FAITH TURK Ot V10.3 HX OF BREAST MALIGNANCY 03/28/2017 FAITH TURK Ot V67.9 FOLLOW-UP EXAM NOS 03/28/2017 ERVIN OSBORNE MD Ot 593.9 RENAL URETERAL DIS NOS 03/28/2017 ERVIN OSBORNE MD Ot 753.10 CYSTIC KIDNEY DISEASE, UNSPECIFIED 03/28/2017 JOSELUIS BORGES TONGUE PRESSER Ot 174.9 MALIGN NEOPL BREAST NOS 03/28/2017 JOSELUIS BORGES TONGUE PRESSER Ot V67.9 FOLLOW-UP EXAM NOS 03/28/2017 ERVIN [...] SIGNS INVOLVING THE CIR 04/25/2017 AGATHA ESPINAL TONGUE PRESSER Ot N28.1 CYST OF KIDNEY, ACQUIRED 04/25/2017 AGATHA ESPINAL TONGUE PRESSER Ot R10.2 PELVIC AND PERINEAL PAIN 04/26/2017 [...] TRTMT FO 05/10/2017 FAITH TURK Ot Z79.01 [facility] (CURRENT) USE OF ANTICOAGULANT 05/10/2017 FAITH TURK Ot Z79.4 LOGISTICS SUPPORT (CURRENT) USE OF INSULIN 05/10/2017 FAITH TURK Ot Z85.3 PERSONAL HISTORY OF MALIGNANT NEOPLASM O 05/10/2017 FAITH TURK Ot Z86.718 PERSONAL HISTORY OF OTHER VENOUS THROMBO 05/10/2017 FAITH TURK Ot Z90.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 05/10/2017 FAITH TURK Ot Z92.21 PERSONAL HISTORY OF ANTINEOPLASTIC CHEMO 05/14/2017 AGATHA ESPINAL TONGUE PRESSER Ot N28.1 CYST OF KIDNEY, ACQUIRED 05/14/2017 [...] 05/31/2017 YANG VALERA MD Ot Z79.899 OTHER [facility] (CURRENT) DRUG THERAPY 06/04/2017 YANG VALERA MD [...] 06/04/2017 YANG VALERA MD Ot Z79.899 OTHER LOGISTICS SUPPORT (CURRENT) DRUG THERAPY 06/13/2017 AGATHA ESPINAL TONGUE PRESSER Ot N28.1 CYST OF KIDNEY, ACQUIRED 06/13/2017 AGATHA ESPINAL TONGUE PRESSER Ot R10.2 PELVIC AND PERINEAL PAIN 06/17/2017 ROSALEE EDNASUJATA Evy Ot E11.9 TYPE 2 DIABETES MELLITUS WITHOUT COMPLIC 06/17/2017 ROSALEE EDNASUJATA Evy Ot E78.5 HYPERLIPIDEMIA, UNSPECIFIED 06/17/2017 ROSALEEEDNA RABAGOSUJATA Evy Ot I10 ESSENTIAL (PRIMARY) HYPERTENSION 06/17/2017 FAITH TURK Ot Z08 ENCNTR FOR FOLLOW-UP EXAM AFTER TRTMT FO 06/17/2017 FAITH TURK Ot Z79.01 LOGISTICS SUPPORT (CURRENT) USE OF ANTICOAGULANT 06/17/2017 FAITH TURK Ot Z79.4 LOGISTICS SUPPORT (CURRENT) USE OF INSULIN 06/17/2017 FAITH TURK [...] FAITH TURK Ot E78.5 HYPERLIPIDEMIA, UNSPECIFIED 06/26/2017 AFITH TURK Ot I10 ESSENTIAL (PRIMARY) HYPERTENSION 06/26/2017 FAITH TURK Ot Z08 ENCNTR FOR FOLLOW-UP EXAM AFTER TRTMT FO 06/26/2017 FAITH TURK Ot Z79.01 [facility] (CURRENT) USE OF ANTICOAGULANT 06/26/2017 FAITH TURK Ot Z79.4 LOGISTICS SUPPORT (CURRENT) USE OF INSULIN 06/26/2017 FAITH TURK [...] TRTMT FO 08/07/2017 FAITH TURK Ot Z79.01 [facility] (CURRENT) USE OF ANTICOAGULANT 08/07/2017 FAITH TURK Ot Z79.4 [facility] (CURRENT) USE OF INSULIN 08/07/2017 FAITH TURK [...] HEADACHE 09/04/2017 ARVIND BOGGS MD Ot Z79.4 LOGISTICS SUPPORT (CURRENT) USE OF INSULIN 09/04/2017 ARVIND BOGGS MD Ot Z79.899 OTHER LOGISTICS SUPPORT (CURRENT) DRUG THERAPY 09/11/2017 ARVIND BOGGS MD [...] HEADACHE 09/11/2017 ARVIND BOGGS MD Ot Z79.4 LOGISTICS SUPPORT (CURRENT) USE OF INSULIN 09/11/2017 ARVIND BOGGS MD Ot Z79.899 OTHER LOGISTICS SUPPORT (CURRENT) DRUG THERAPY 09/14/2017 DANY ESPINAL DO Ot D72.829 ELEVATED WHITE BLOOD CELL COUNT, UNSPECI 09/14/2017 DANY ESPINAL DO Ot E11.9 TYPE 2 DIABETES MELLITUS WITHOUT COMPLIC 09/14/2017 ADNY ESPINAL DO, Ot E66.9 OBESITY, UNSPECIFIED 09/14/2017 DANY ESPINAL DO, Ot E78.5 HYPERLIPIDEMIA, UNSPECIFIED 09/14/2017 DANY ESPINAL DO, Ot F31.9 BIPOLAR DISORDER, UNSPECIFIED 09/14/2017 DANY ESPINAL DO, Ot I25.10 ATHSCL HEART DISEASE OF [place] CORONARY 09/14/2017 DANY ESPINAL DO, Ot I27.20 [...] ADULT 09/14/2017 DANY ESPINAL DO, Ot Z79.01 LOGISTICS SUPPORT (CURRENT) USE OF ANTICOAGULANT 09/14/2017 DANY ESPINAL DO, Ot Z79.4 LOGISTICS SUPPORT (CURRENT) USE OF INSULIN 09/14/2017 DANY ESPINAL DO, Ot Z79.899 OTHER [facility] (CURRENT) DRUG THERAPY 09/14/2017 DANY ESPINAL DO, [...] CYSTIC KIDNEY DISEASE, UNSPECIFIED 02/03/2018 JOSELUIS BORGES TONGUE PRESSER Ot 174.9 MALIGN NEOPL BREAST NOS 02/03/2018 JOSELUIS BORGES TONGUE PRESSER Ot V67.9 FOLLOW-UP EXAM NOS 02/03/2018 ERVIN OSBORNE MD Ot 593.2 CYST OF KIDNEY, ACQUIRED 02/03/2018 NIRAV MOULTON, ARI Ot V72.84 EXAM PRE-OPERATIVE NOS 02/03/2018 ERVIN OSBORNE MD Ot 593.2 CYST OF KIDNEY, ACQUIRED 02/03/2018 FAITH TURK Ot 174.9 MALIGN NEOPL BREAST NOS 02/03/2018 FAITH TURK Ot V67.9 FOLLOW-UP EXAM NOS 02/03/2018 FAITH TURK Ot 793.80 UNSPEC ABNORMAL MAMMOGRAM 02/03/2018 RAEVN LEO SQUILGEER Ot 729.5 PAIN IN LIMB 02/03/2018 RAVEN LEO SQUILGEER Ot 786.05 SHORTNESS OF BREATH 02/03/2018 ERVIN [...] MON 02/03/2018 MEGHA PANDA MD Ot Z79.2 LOGISTICS SUPPORT (CURRENT) USE OF ANTIBIOTICS 02/03/2018 AGATHA ESPINAL [...] AFTER TRTMT FO 02/03/2018 BORGES, HILAH S TONGUE PRESSER Ot Z79.01 LOGISTICS SUPPORT (CURRENT) USE OF ANTICOAGULANT 02/03/2018 JOSELUIS BORGES TONGUE PRESSER Ot Z85.3 PERSONAL HISTORY OF MALIGNANT NEOPLASM [...] PAIN IN RIGHT LEG 02/03/2018 AGATHA ESPINAL TONGUE PRESSER Ot N28.1 CYST OF KIDNEY, ACQUIRED 02/03/2018 AGATHA ESPINAL TONGUE PRESSER Ot R10.2 PELVIC AND PERINEAL PAIN 02/03/2018 [...] TRTMT FO 02/03/2018 FAITH TURK Ot Z79.01 [facility] (CURRENT) USE OF ANTICOAGULANT 02/03/2018 FAITH TURK Ot Z79.4 [facility] (CURRENT) USE OF INSULIN 02/03/2018 FAITH TURK [...] 793.80 UNSPEC ABNORMAL MAMMOGRAM 02/10/2018 RAVEN LEO SQUILGEER Ot 729.5 PAIN IN LIMB 02/10/2018 RAVEN LEO SQUILGEER Ot 786.05 SHORTNESS OF BREATH 02/10/2018 [place] [...] MON 02/10/2018 MEGHA PANDA MD Ot Z79.2 [facility] (CURRENT) USE OF ANTIBIOTICS 02/10/2018 AGATHA ESPINAL [...] TRTMT FO 02/10/2018 JOSELUIS BORGES Ot Z79.01 [facility] (CURRENT) USE OF ANTICOAGULANT 02/10/2018 JOSELUIS BORGES [...] PAIN IN RIGHT LEG 02/10/2018 TEDDYHENRIETTAAGATHA L TONGUE PRESSER Ot N28.1 CYST OF KIDNEY, ACQUIRED 02/10/2018 AGATHA ESPINAL TONGUE PRESSER Ot R10.2 PELVIC AND PERINEAL PAIN 02/10/2018 [...] FO 02/10/2018 ROSALEE FAITH Evy Ot Z79.01 LOGISTICS SUPPORT (CURRENT) USE OF ANTICOAGULANT 02/10/2018 ROSALEE FAITH N Ot Z79.4 [facility] (CURRENT) USE OF INSULIN 02/10/2018 FAITH TURK Evy Ot Z85.3 PERSONAL HISTORY OF MALIGNANT NEOPLASM O 02/10/2018 ROSALEEFAITH RABAGO Evy Ot Z86.718 PERSONAL HISTORY OF OTHER VENOUS THROMBO 02/10/2018 FAITH TURK Evy Ot Z90.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 02/10/2018 FAITH TURK Evy Ot Z92.21 PERSONAL HISTORY OF ANTINEOPLASTIC CHEMO 02/10/2018 JOSELUIS BORGES TONGUE PRESSER Ot R92.8 OTH ABN AND INCONCLUSIVE FINDINGS ON DX 02/11/2018 JOSELUIS BORGES TONGUE PRESSER Ot C50.911 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 02/11/2018 JOSELUIS BORGES TONGUE PRESSER Ot 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 02/11/2018 JOSELUIS BORGES TONGUE PRESSER Ot C50.911 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 02/11/2018 JOSELUIS BORGES TONGUE PRESSER Ot 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 02/21/2018 JOSELUIS BORGES TONGUE PRESSER Ot C50.911 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 02/21/2018 JOSELUIS BORGES TONGUE PRESSER Ot 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 02/21/2018 JOSELUIS BORGES TONGUE PRESSER Ot C50.911 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 02/21/2018 JOSELUIS BORGES TONGUE PRESSER Ot 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 Procedures Code Description Performed By Performed On 88.72 DX ULTRASOUND-HEART 12/30/2012 99.62 HEART COUNTERSHOCK NEC 12/30/2012 37.22 LEFT HEART CARDIAC CATH 11/14/2014 88.53 LT HEART ANGIOCARDIOGRAM 11/14/2014 88.56 CORONAR ARTERIOGR-2 CATH 11/14/2014 [id number] REPOSITION R UP FEMUR WITH INTRAMED FIX, 09/04/2015 [id number] REMOVAL OF INT FIX FROM R UP FEMUR, EXTE 09/16/2015 [id number] REPOSITION RIGHT UPPER FEMUR WITH INT FI 09/16/2015 [id number] DRAIN OF L UP LEG SUBCU/ FASCIA [...] Status Pt. Type Provider Facility Loc./Unit Complaint [id number] 02/10/2018 12:48:00 02/10/2018 23:59:59 CLS Outpatient JOSELUIS BORGES [facility] RAD ABNORMAL SCREENING [id number] 09/13/2017 21:00:00 09/14/2017 15:45:00 DIS Inpatient DANY ESPINAL DO [facility] ICU CHEST PAIN,CHRONIC ATRIAL FIB [id number] 09/04/2017 11:43:00 09/04/2017 16:40:00 DIS Outpatient ARVIND BOGGS MD [facility] SDC TEMPORAL ARTERITIS/ SEVERE HEADACHE [id number] 08/09/2017 10:23:00 08/09/2017 23:59:59 CLS Outpatient FAITH TURK [facility] RAD R92.8 [id number] 08/08/2017 00:25:00 08/08/2017 23:59:59 CLS Preadmit FAITH TURK N [facility] ONC [id number] 05/09/2017 12:00:00 08/07/2017 00:01:00 DIS Outpatient FAITH TURK [facility] [facility] ONC [id number] 07/25/2017 17:31:00 07/25/2017 23:59:59 CLS Outpatient KO KENDRICK DO [facility] RAD BACK PAIN [id number] 05/31/2017 06:27:00 05/31/2017 10:05:00 DIS Outpatient YANG VALERA MD [facility] ENDO RECTAL BLEEDING [id number] 05/29/2017 05:34:00 05/29/2017 15:35:00 DIS Outpatient YANG VALERA MD [facility] PREOP COLONOSCOPY [id number] 05/09/2017 15:12:00 05/09/2017 23:59:59 CLS Preadmit ROSALEE FAITH Evy [facility] RAD SCREENING Z12.31 [id number] 05/09/2017 10:38:00 05/09/2017 23:59:59 CLS Preadmit FAITH TURK Evy [facility] ONC [id number] 04/23/2017 14:02:00 04/23/2017 23:59:59 CLS Outpatient ERVIN OSBORNE MD [facility] RAD RT SM,LT RENAL CYST [id number] 04/12/2017 08:15:00 04/12/2017 23:59:59 CLS Outpatient AGATHA ESPINAL TONGUE PRESSER [facility] RAD ABDOMINAL/PELVIC PAIN [id number] 03/28/2017 10:22:00 03/28/2017 23:59:59 CLS Outpatient FRANCK LARSON DPM [facility] RAD DVT [id number] 03/13/2017 06:00:00 03/13/2017 11:25:00 DIS Outpatient BLAFRANCK JARRETT DPM [facility] SDC EQUINUS DEFORMITY RLE [id number] 03/06/2017 09:10:00 03/06/2017 10:27:00 DIS Outpatient BLANCHO FRANCK PAL [facility] PREOP EQUINUS DEFORMITY RLE [id number] 03/05/2017 00:09:00 03/05/2017 11:15:00 DIS Inpatient SANGEETA MARSHALL MD [facility] ICU CHEST PAIN [id number] 02/06/2017 11:50:00 02/06/2017 23:59:59 CLS Outpatient SHEELA BANUELOS MD [facility] CARD AF,CHEST PAIN,HTN,HLP [id number] 08/14/2016 07:46:00 08/14/2016 23:59:59 CLS Outpatient JOSELUIS BORGES TONGUE PRESSER [facility] RAD ABNORMAL SCREENING MAMMO [id number] 08/07/2016 10:57:00 08/07/2016 23:59:59 CLS Outpatient JOSELUIS BORGES TONGUE PRESSER 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 ER CHEST PAIN [id number] 05/22/2016 11:13:00 05/22/2016 23:59:59 CLS Outpatient DANY ESPINAL DO [facility] RAD F02.81 [id number] 05/10/2016 12:33:00 05/10/2016 23:59:59 CLS Outpatient JOSELUIS BORGES TONGUE PRESSER [facility] ONC [id number] 03/19/2016 01:26:00 03/22/2016 13:45:00 DIS Inpatient SANGEETA MARSHALL MD [facility] 4TH AMS; SUSPENDED UTI; FEVER [id number] 03/08/2016 21:09:00 03/12/2016 12:07:00 DIS Inpatient NG DO, JOSE ELIAS [facility] 4TH SEPSIS,UTI,AMS [id number] 03/08/2016 01:39:00 03/08/2016 03:44:00 DIS Emergency NELLY SMITH DO [facility] ER AMS,UTI,R LEG PAIN [id number] 03/01/2016 12:00:00 03/01/2016 23:59:59 CLS Outpatient DANY ESPINAL DO [facility] HH POSSIBLE UTI [id number] 02/16/2016 14:52:00 02/16/2016 23:59:59 CLS Outpatient DANY ESPINAL DO [facility] UTI, HYPOTHYROIDISM [id number] 01/30/2016 17:30:00 02/02/2016 14:30:00 DIS Inpatient SANGEETA MARSHALL MD [facility] 4TH UTI,CONFUSION [id number] 01/28/2016 18:13:00 01/28/2016 23:59:59 CLS Outpatient AGATHA ESPINAL TONGUE PRESSER [facility] LAB UTI [id number] 11/15/2015 10:07:00 11/15/2015 23:59:59 CLS Outpatient MEGHA PANDA MD [facility] GLC CELLULITIS, VANCO IV [id number] 10/15/2015 15:55:00 10/19/2015 16:30:00 DIS Inpatient MEGHA PANDA MD Via [address] EXTENSIVE CELLULITIS RT HIP,FEVER,S/P RT HIP IF [id number] 09/15/2015 14:20:00 09/23/2015 14:37:00 DIS Inpatient MEGHA MATIAS MD [facility] 4TH HARDWARE FAILURE [id number] 09/08/2015 13:29:00 09/15/2015 13:30:00 DIS Inpatient VENUS PARTIDA MD [facility] IRF RIGHT HIP FRACTURE, CLOSED [id number] 09/03/2015 18:45:00 09/08/2015 11:15:00 DIS Inpatient MEGHA PANDA MD [facility] 4TH RIGHT HIP FRACTURE, CLOSED [id number] 07/05/2015 10:30:00 07/05/2015 23:59:59 CLS Outpatient MEGHA PANDA MD [facility] DIABETES,CHRONIC DIURETIC USE [id number] 06/24/2015 10:40:00 06/24/2015 23:59:59 CLS Outpatient MEGHA PANDA MD [facility] DM, HYPOPOTASSEMIA [id number] 06/17/2015 12:00:00 06/17/2015 23:59:59 CLS Outpatient MEGHA PANDA MD [facility] HYPONATREMIA [id number] 05/20/2015 14:13:00 06/16/2015 09:42:00 DIS Outpatient RAVEN LEO APRN [facility] REHAB MUSCULOSKELETAL CHEST AND SHOULDER PAIN [id number] 06/14/2015 11:45:00 06/14/2015 14:36:00 DIS Outpatient WILLARD PARR [facility] CARD AFIB,HTN, SYNCOPE [id number] 06/08/2015 21:25:00 06/10/2015 13:15:00 DIS Inpatient MEGHA PANDA MD [facility] SURGICAL HYPONATREMIA, AMS, WEAKNESS [id number] 05/25/2015 07:00:00 05/27/2015 14:20:00 DIS Inpatient MEGHA PANDA MD [facility] SURGICAL FALL/CONTUSION [id number] 05/18/2015 14:02:00 05/18/2015 23:59:59 CLS Outpatient FAITH TURK [facility] RAD BREAST CA [id number] 05/12/2015 13:11:00 05/12/2015 23:59:59 CLS Outpatient FAITH TURK [facility] ONC [id number] 05/03/2015 13:04:00 05/03/2015 23:59:59 CLS Outpatient ERVIN OSBORNE MD [facility] RAD LEFT RENAL CYST [id number] 04/08/2015 21:00:00 04/09/2015 13:25:00 DIS Inpatient MEGHA PANDA MD [facility] ICU CHEST PAIN [id number] 01/10/2015 10:18:00 01/10/2015 23:59:59 CLS Outpatient SHEELA BANUELOS MD [facility] REHAB LEG AND BACK PAIN [id number] 11/29/2014 09:14:00 11/29/2014 23:59:59 CLS Outpatient MEGHA PANDA MD [facility] RAD F/U CHF [id number] 11/16/2014 10:19:00 11/16/2014 12:59:00 DIS Emergency DANY HOLLIS DO [facility] ER CHEST PAINS [id number] 11/14/2014 15:42:00 11/15/2014 16:15:00 DIS Inpatient MEGHA PANDA MD [facility] ICU CHEST AND SHOULDER PAIN [id number] 11/01/2014 14:09:00 11/01/2014 23:59:59 CLS Outpatient ERVIN OSBORNE MD [facility] RAD LEFT RENAL CYST [id number] 10/28/2014 14:49:00 10/28/2014 23:59:59 CLS Outpatient RAVEN LEO APRN [facility] RAD SOB,BLE PAIN [id number] 10/14/2014 12:15:00 10/14/2014 23:59:59 CLS Outpatient MEGHA PANDA MD [facility] RAD COUGH [id number] 07/18/2014 12:07:00 07/18/2014 23:59:59 CLS Outpatient [id number] 06/03/2014 21:01:00 06/04/2014 07:38:00 DIS Outpatient CORBY SULTANA MD [facility] SLEEP MADELYN [id number] 06/01/2014 15:12:00 06/01/2014 23:59:59 CLS Outpatient FAITH TURK [facility] RAD SCREENING [id number] 05/13/2014 13:29:00 05/13/2014 23:59:59 CLS Outpatient FAITH TURK [facility] ONC [id number] 05/04/2014 13:59:00 05/04/2014 23:59:59 CLS Outpatient ERVIN OSBORNE MD [facility] RAD LEFT RENAL CYST,RAML [id number] 12/16/2013 07:13:00 12/16/2013 10:35:00 DIS Outpatient ARI GASTELUM MD [facility] SDC DYSPHAGIA [id number] 12/09/2013 07:36:00 12/09/2013 23:59:59 CLS Outpatient ARI GASTELUM MD [facility] PREOP DYSPHAGIA [id number] 12/03/2013 13:16:00 12/03/2013 23:59:59 CLS Outpatient JOSELUIS BORGES [facility] RAD SIX MONTH FOLLOW-UP [id number] 11/04/2013 14:02:00 11/04/2013 23:59:59 CLS Outpatient ERVIN OSBORNE MD [facility] RAD LT RENAL CYST [id number] 06/01/2013 14:05:00 06/01/2013 23:59:59 CLS Outpatient FAITH TURK [facility] RAD FOLLOW-UP,HX CA BREAST [id number] 04/28/2013 13:07:00 04/28/2013 23:59:59 CLS Outpatient ERVIN OSBORNE MD [facility] RAD RENAL MASSES [id number] 03/23/2013 14:02:00 03/23/2013 23:59:59 CLS Outpatient MEGHA PANDA MD [facility] LAB [id number] 03/23/2013 13:33:00 03/23/2013 23:59:59 CLS Outpatient FAITH TURK [facility] ONC [id number] 04/17/2016 09:14:00 Document Registration [id number] 09/06/2015 17:01:00 Document Registration [id number] 11/29/2014 09:14:00 Document Registration [id number] 01/01/2013 18:45:00 Document Registration [id number] 12/28/2012 17:05:00 Document Registration [id number] 12/01/2012 13:35:00 Document Registration [id number] 11/28/2012 12:10:00 Document Registration [id number] 09/16/2012 19:40:00 Document Registration [id number] 05/13/2012 05:38:00 Document Registration [id number] 05/08/2012 11:44:00 Document Registration [id number] 05/06/2012 12:30:00 Document Registration [id number] 04/29/2012 07:26:00 Document Registration [id number] 04/08/2012 13:03:00 Document Registration [id number] 03/26/2012 15:10:00 Document Registration [id number] 03/24/2012 10:29:00 Document Registration [id number] 12/17/2011 07:36:00 Document Registration [id number] 09/21/2011 21:48:00 Document Registration [id number] 09/06/2011 05:38:00 Document Registration [id number] 09/04/2011 09:37:00 Document Registration [id number] 07/18/2011 08:49:00 Document Registration [id number] 07/11/2011 06:30:00 Document Registration [id number] 04/30/2011 18:01:00 Document Registration [id number] 04/25/2011 13:30:00 Document Registration [id number] 03/12/2011 13:01:00 Document Registration [id number] 03/02/2011 13:14:00 Document Registration [id number] 02/19/2011 12:40:00 Document Registration [id number] 07/07/2010 15:10:00 Document Registration [id number] 04/07/2010 16:16:00 Document Registration [id number] 03/17/2010 15:02:00 Document Registration [id number] 03/07/2010 14:00:00 Document Registration [id number] 03/02/2010 12:39:00 Document Registration [id number] 03/02/2010 12:35:00 Document Registration [id number] 02/23/2010 09:02:00 Document Registration [id number] 02/13/2010 14:39:00 Document Registration [id number] 12/07/2009 10:08:00 Document Registration [id number] 12/07/2009 10:07:00 Document Registration [id number] 10/07/2009 12:26:00 Document Registration [id number] 09/28/2009 10:28:00 Document Registration [id number] 09/21/2009 11:39:00 Document Registration [id number] 08/30/2009 00:00:00 Document Registration [id number] 08/23/2009 13:57:00 Document Registration [id number] 08/17/2009 13:00:00 Document Registration [id number] 08/12/2009 12:31:00 Document Registration [id number] 07/06/2015 08:10:04 ACT Document Registration [id number] 01/03/2018 14:30:00 01/03/2018 23:59:59 [facility] Outpatient DARCY HAN APRN [facility]
[2018-03-11 10:25] LABS: BASOPHILS % (AUTO) 0 % (0-10); EOSINOPHILS # (AUTO) 0.3 10^3/uL (0.0-0.3); EOSINOPHILS % (AUTO) 2 % (0-10); HEMATOCRIT 39 % (35-52); HEMOGLOBIN 12.7 G/DL (11.5-16.0); LYMPHOCYTES # (AUTO) 2.4 X 10^3 (1.0-4.0); LYMPHOCYTES % (AUTO) 17 % (12-44); MEAN CORPUSCULAR HEMOGLOBIN 31 PG (25-34); MEAN CORPUSCULAR HGB CONC 33 G/DL (32-36); MEAN CORPUSCULAR VOLUME 94 FL (80-99); MEAN PLATELET VOLUME 11.8 FL (7.4-10.4); MONOCYTES % (AUTO) 7 % (0-12); NEUTROPHILS # (AUTO) 10.3 X 10^3 (1.8-7.8); NEUTROPHILS % (AUTO) 74 % (42-75); PLATELET COUNT 252 10^3/uL (130-400); RED BLOOD COUNT 4.14 10^6/uL (4.35-5.85); RED CELL DISTRIBUTION WIDTH 14.8 % (10.0-14.5); WHITE BLOOD COUNT 13.9 10^3/uL (4.3-11.0)
[2018-03-11 10:38] LABS: INR 1.6 (0.8-1.4); PROTHROMBIN TIME PATIENT 18.7 SEC (12.2-14.7)
[2018-03-11 10:44] LABS: LIPASE 9 U/L (8-78); MAGNESIUM 1.7 MG/DL (1.8-2.4)
--- NOTE | 2018-03-11 10:50 | Diagnostic Imaging Report ---
INDICATION: Chest pain, atrial fibrillation.. TECHNIQUE: Single view chest 10:36 AM. CORRELATION STUDY: 09/21/2017 FINDINGS: Heart size has increased. Vasculature also appears increased from prior study. Lung mendoza with prominent interstitial markings. No superimposed infiltrate. No significant effusion. Density over the right robert generally stable, given difference in technique. Probable old healed traumatic changes about the right shoulder girdle including the bony glenoid, proximal humerus and clavicle with some associated advanced degenerative changes. IMPRESSION: 1. Increasing cardiac enlargement with vascular congestion suggesting fluid overload or failure. Dictated by: Dictated on workstation # [id number]
[2018-03-11 10:53] LABS: MYOGLOBIN SERUM 32.3 NG/ML (10.0-92.0)
[2018-03-11 11:35] LABS: ALANINE AMINOTRANSFERASE 10 U/L (0-55); ALBUMIN 3.5 GM/DL (3.2-4.5); ALKALINE PHOSPHATASE 51 U/L (40-136); BILIRUBIN,TOTAL 0.5 MG/DL (0.1-1.0); BUN/CREATININE RATIO 17; CALCIUM 9.3 MG/DL (8.5-10.1); CARBON DIOXIDE 29 MMOL/L (21-32); CHLORIDE 103 MMOL/L (98-107); CREATININE SERUM 0.77 MG/DL (0.60-1.30); GFR ESTIMATED > 60; GLUCOSE 120 MG/DL (70-105); SODIUM 141 MMOL/L (135-145); TOTAL PROTEIN 7.3 GM/DL (6.4-8.2)
[2018-03-11] MEDS ORDERED: ANTACID SUSP 30 ML UDC (MYLANTA) PO ONE (11:45)
[2018-03-11] MEDS ORDERED: LIDOCAINE 2% VISCOUS 15 ML UDC PO ONE (11:45)
[2018-03-11 12:23] LABS: BILIRUBIN,URINE NEGATIVE (NEGATIVE); CLARITY,URINE CLEAR; COLOR,URINE YELLOW; GLUCOSE, URINE (UA) NEGATIVE (NEGATIVE); KETONES,URINE NEGATIVE (NEGATIVE); LEUKOCYTE ESTERASE ,URINE NEGATIVE (NEGATIVE); NITRITE,URINE NEGATIVE (NEGATIVE); PH,URINE 5 (5-9); PROTEIN,URINE 3+ (NEGATIVE); UROBILINOGEN,URINE NORMAL (NORMAL)
[2018-03-11 12:29] LABS: BACTERIA,URINE NEGATIVE /HPF; SQUAMOUS EPITHELIAL CELL,UR 0-2 /HPF
[2018-03-11] MEDS ORDERED: ONDA4TAB8 SL (12:40)
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
[2018-03-11 12:45] VITALS: BP 141/84
== END 2018-03-11 12:45 | disposition home or self-care (01) ==
LOC: EDUNIT# 09:58 → ER 09:59
DX: R10.13 Epigastric pain (principal); R11.2 Nausea with vomiting, unspecified; E87.70 Fluid overload, unspecified; G47.30 Sleep apnea, unspecified; J44.9 Chronic obstructive pulmonary disease, unspecified; I25.10 Atherosclerotic heart disease of native coronary artery without angina pectoris; E78.00 Pure hypercholesterolemia, unspecified; I10 Essential (primary) hypertension; F03.90 Unspecified dementia, unspecified severity, without behavioral disturbance, psychotic disturbance, mood disturbance, and anxiety; F41.9 Anxiety disorder, unspecified; F32.9 Major depressive disorder, single episode, unspecified; E11.9 Type 2 diabetes mellitus without complications; I48.91 Unspecified atrial fibrillation; Z85.3 Personal history of malignant neoplasm of breast; Z92.21 Personal history of antineoplastic chemotherapy; Z80.51 Family history of malignant neoplasm of kidney; Z79.01 Long term (current) use of anticoagulants; Z88.2 Allergy status to sulfonamides; Z87.440 Personal history of urinary (tract) infections; Z88.0 Allergy status to penicillin; Z88.5 Allergy status to narcotic agent; Z88.8 Allergy status to other drugs, medicaments and biological substances; Z79.4 Long term (current) use of insulin; Z90.11 Acquired absence of right breast and nipple; Z90.81 Acquired absence of spleen; Z90.49 Acquired absence of other specified parts of digestive tract; Z90.710 Acquired absence of both cervix and uterus; Z86.718 Personal history of other venous thrombosis and embolism; Z90.89 Acquired absence of other organs; Z87.19 Personal history of other diseases of the digestive system
CPT/HCPCS: 36415; 71045; 80053; 80162; 81000; 83690; 83735; 83874; 83880; 84484; 85025; 85610; 85730; 86141; 93005; 93041; 96374

== ENCOUNTER 2018-03-13 14:51 | Outpatient (CLI) | payer MEDICARE, MEDICAID ==
[~2018-03-13] VITALS: Ht 175.3 cm; Wt 90.8 kg
[~2018-03-13 14:51] MED LIST changes: +ONDA4TAB8 SL
[2018-03-13] MEDS ORDERED: CARV25TA PO (15:05)
[2018-03-13] MEDS ORDERED: RIVA20TA PO (15:05)
[2018-03-13] MEDS ORDERED: NYST50002 PO (15:05)
[2018-03-14] MEDS ORDERED: LEVO500T2 PO (10:28)
== END 2018-03-13 15:26 ==
LOC: PREOP 14:51
PROVIDERS: ATTEND Otolaryngology Otolaryngology/Facial Plastic Surgery
DX: Z01.818 Encounter for other preprocedural examination (principal); R04.0 Epistaxis; Z88.1 Allergy status to other antibiotic agents

== ENCOUNTER 2018-03-14 06:57 | Day surgery (SDC) | payer MEDICARE, MEDICAID ==
[~2018-03-14] VITALS: Ht 175.3 cm; Wt 90.8 kg
[~2018-03-14 06:57] MED LIST changes: +CARV25TA PO; +METF1000 PO; -METF10002 PO; +METF500T4 PO; -METF500T5 PO; +NYST50002 PO; +PROC10TA PO; -PROC10TA10 PO; +SENN-1 PO; -SENN-145 PO
[2018-03-14 07:00] VITALS: BP 179/97
--- OUTSIDE RECORDS SUMMARY | 2018-03-14 07:02 | XMS REPORT | Clinical Summary ---
Author Author [facility] Organization [facility] Address Unknown Phone Unavailable Care Team Providers Care Property Analyst Name Role Phone Darien Salguero MD Unavailable Source Comments Some departments are not documenting in the electronic medical record. If you do not see the information that you expected, contact Release of Information in the Health Information Management department at [phone] for further assistance in locating additional records.[facility] Allergies Active Allergy Reactions Severity Noted [...] results. -- F/U with Dr. Sethi in [place] for further urological issues (already has an [...]
--- NOTE | 2018-03-14 07:07 | Progress Note-Pre Operative ---
Pre-Operative Progress Note H&P Reviewed The H&P was reviewed, patient examined and no changes noted. Date Seen by Provider: Mar 14, 2018 Time Seen by Provider: 07:00 Date H&P Reviewed: Mar 14, 2018 Time H&P Reviewed: 07:00 Pre-Operative Diagnosis: Recurrent Right Epistaxis CORBY SULTANA MD Mar 14, 2018 7:07 am
--- OUTSIDE RECORDS SUMMARY | 2018-03-14 07:19 | XMS REPORT | Continuity of Care Document ---
Author Author [facility] Organization [facility] Address Unknown Phone Unavailable Allergies Active Description Code Type Severity Reaction Onset Reported/Identified Relationship to Patient Clinical Status Yes Sulfa (Sulfonamide Antibiotics) [id number] Drug Allergy Mild N/A 2008 Yes codeine [id number] Drug Allergy Mild N/A 09/15/2015 Yes codeine [id number] Drug Allergy Mild PT TAKES HYDROC 03/06/2017 Yes nitrofurantoin [id number] Drug Allergy Mild RASH 03/06/2017 Yes Penicillins [id number] Drug Allergy Mild N/A 03/06/2017 Yes sulfur dioxide [id number] Drug Allergy Unknown N/A 03/06/2017 Medications There [...] PANDA MD Ot 414.01 CORONARY ATHEROSCLEROSIS OF [place] CORON 11/15/2014 MEGHA PANDA MD Ot 427.31 [...] MEGHA PANDA MD Ot 272.0 11/16/2014 MEGHA APNDA MD Ot 276.1 11/16/2014 MEGHA PANDA MD [...] RABAGO N Ot V67.9 11/29/2014 INDIA MOULTON, ERVNI Lanier Ot 593.9 11/29/2014 INDIA MOULTON, ERVIN A Ot 753.10 11/29/2014 JOSELUIS BORGES BILL CHECKER Ot 174.9 11/29/2014 BORGESJOSELUIS Devi BILL CHECKER Ot V67.9 11/29/2014 INDIA MOULTON, ERVIN A Ot 593.2 11/29/2014 NIRAV MOULTON, [facility] Ot V72.84 11/29/2014 INDIA MOULTON, ERVIN A Ot 593.2 11/29/2014 ROSALEEFAITH RABAGO N Ot 174.9 11/29/2014 ROSALEEFAITH RABAGO N Ot V67.9 11/29/2014 ROSALEEFAITH RABAGO N Ot 793.80 11/29/2014 RAVEN LEO SURVEILL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 Ot 729.5 11/29/2014 RAVEN LEO SURVEILL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 Ot 786.05 11/29/2014 INDIA MOULTON, ERVIN Lanier Ot 593.2 11/29/2014 RAVEN LEO APRN Ot 729.5 11/29/2014 RAVEN LEO SURVEILL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 Ot 786.05 11/30/2014 RAVEN LEO SURVEILL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 Ot 729.5 11/30/2014 RAVEN LEO APRN [...] ERVIN Lanier Ot 753.10 11/30/2014 JOSELUIS BORGES BILL CHECKER Ot 174.9 11/30/2014 JOSELUIS BORGES BILL CHECKER Ot V67.9 11/30/2014 INDIA MOULTON, ERVIN Lanier [...] PANDA MD Ot 414.01 CORONARY ATHEROSCLEROSIS OF [place] CORON 04/09/2015 MEGHA PANDA MD Ot 493.00 [...] ERVIN Lanier Ot 753.10 05/03/2015 JOSELUIS BORGES BILL CHECKER Ot 174.9 05/03/2015 JOSELUIS BORGES BILL CHECKER Ot V67.9 05/03/2015 INDIA MOULTON, ERVIN A Ot 593.2 05/03/2015 NIRAV MOULTON, ARI Ot V72.84 05/03/2015 INDIA MOULTON, ERVIN A Ot 593.2 05/03/2015 FIATH TURK N Ot 174.9 05/03/2015 FAITH TURK N Ot V67.9 05/03/2015 FAITH TURK N Ot 793.80 05/03/2015 RAVEN [employer] SUR[employer]ILL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 Ot 729.5 05/03/2015 RAVEN LEO APRN [...] ERVIN A Ot 753.10 05/18/2015 JOSELUIS BORGES BILL CHECKER Ot 174.9 05/18/2015 BORGESJOSELUIS Devi BILL CHECKER Ot V67.9 05/18/2015 INDIA MOULTON, ERVIN A Ot 593.2 05/18/2015 NIRAV MOULTON, [facility] Ot V72.84 05/18/2015 INDIA MOULTON, ERVIN A Ot 593.2 05/18/2015 ROSALEE, BOBAN N Ot 174.9 05/18/2015 ROSALEE, FAITH N Ot V67.9 05/18/2015 ROSALEE, BOBAN N Ot 793.80 05/18/2015 RAVEN LE[employer] SURVEILL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 Ot 729.5 05/18/2015 RAVEN LEO SURVEILL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 Ot 786.05 05/18/2015 INDIA MOULTON, ERVIN Lanier Ot 593.2 05/18/2015 FARZAD MOULTON, MEGHA Ku Ot 428.0 05/18/2015 RAVEN [employer] SUR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 Ot 719.41 05/18/2015 RAVEN LEO SURVEILL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 Ot 786.59 05/18/2015 RAVEN LEO SURVEILL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 Ot V57.1 05/18/2015 INDIA MOULTON, ERVIN A Ot 753.10 05/18/2015 ROSALEE, BOBAN N Ot V10.3 05/18/2015 ROSALEE, BOBAN N Ot V12.51 05/18/2015 ROSALEE, BOBAN N Ot V12.55 05/18/2015 ROSALEE, BOBAN N Ot V45.71 05/18/2015 FAITH TURK N Ot V58.61 05/18/2015 FAITH TURK N Ot V58.69 05/18/2015 FAITH TURK Ot V67.2 05/23/2015 RAVEN LE[employer] SUR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 Ot 719.41 05/23/2015 RAVEN LEO SURVEILL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 Ot 786.59 05/23/2015 RAVEN LEO SURVEILL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 Ot V57.1 05/23/2015 ERVIN OSBORNE MD [...] MEGHA PANDA MD Ot 453.40 05/25/2015 FAITH TUKR N Ot V10.3 05/25/2015 FAITH TURK N Ot V67.9 05/25/2015 INDIA MOULTON, ERVIN Lanier Ot 593.9 05/25/2015 INDIA MOULTON, ERVIN Lanier Ot 753.10 05/25/2015 JOSELUIS BORGES BILL CHECKER Ot 174.9 05/25/2015 JOSELUIS BORGES BILL CHECKER Ot V67.9 05/25/2015 INDIA MOULTON, ERVIN Lanier Ot 593.2 05/25/2015 NIRAV MOULTON, ARI Ot V72.84 05/25/2015 INDIA MOULTON, ERVIN Lanier Ot 593.2 05/25/2015 ROSALEE, BOBAN N Ot 174.9 05/25/2015 ROSALEE, BOBAN N Ot V67.9 05/25/2015 ROSALEE, BOBAN N Ot 793.80 05/25/2015 AHMET, RAVEN R SURVEILL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 Ot 729.5 05/25/2015 AHMET, RAVEN R SURVEILL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 Ot 786.05 05/25/2015 INDIA MOULTON, ERVIN Lanier Ot 593.2 05/25/2015 FARZAD MOULTON, MEGHA Ku Ot 428.0 05/25/2015 AHMET, RAVEN R SURVEILL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 Ot 719.41 05/25/2015 AHMET, RAVEN R SURVEILL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 Ot 786.59 05/25/2015 AHMET, RAVEN R SURVEILL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 Ot V57.1 05/25/2015 INDIA MOULTON, ERVIN A Ot 753.10 05/25/2015 ROSALEE, BOBAN N Ot V10.3 05/25/2015 ROSALEE, BOBAN N Ot V12.51 05/25/2015 ROSALEE, BOBAN N Ot V12.55 05/25/2015 ROSALEE, BOBAN N Ot V45.71 05/25/2015 ROSALEE, BOBAN N Ot V58.61 05/25/2015 ROSALEE, BOBAN N Ot V58.69 05/25/2015 ROSALEE, BOBAN N Ot V67.2 05/25/2015 ROSALEE, BOBAN N Ot 174.9 05/25/2015 AHMET, RAVEN R SURVEILL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 Ot 719.41 05/25/2015 AHMET, RAVEN R SURVEILL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 Ot 786.59 05/25/2015 AHMET, RAVEN R SURVEILL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 Ot V57.1 05/25/2015 AHMET, RAVEN R SURVEILL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 Ot 719.41 05/25/2015 AHMET, RAVEN R SURVEILL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 Ot 786.59 05/25/2015 AHMET, RAVEN R SURVEILL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 Ot V57.1 05/25/2015 AHMET, RAVEN R SURVEILL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 Ot 719.41 05/25/2015 AHMET, RAVEN R SURVEILL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 Ot 786.59 05/25/2015 AHMET, RAVEN R SURVEILL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 Ot V57.1 05/27/2015 FARZAD MOULTON, MEGHA [...] 05/27/2015 MEGHA PANDA MD Ot E000.8 05/27/2015 MEGAH PANDA MD Ot E849.0 05/27/2015 MEGHA PANDA [...] Ot 719.41 JOINT PAIN-SHLDER 06/16/2015 RAVEN LEO SURVE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 Ot 786.59 CHEST PAIN NEC 06/16/2015 [...] PANDA MD, Ot E66.9 OBESITY, UNSPECIFIED 09/08/2015 MEHGA PANDA MD, Ot E78.0 PURE HYPERCHOLESTEROLEMIA 09/08/2015 [...] ADULT 09/08/2015 MEGHA PANDA MD, Ot Z79.01 CARE HOME (CURRENT) USE OF ANTICOAGULANT 09/08/2015 MEGHA PANDA MD, Ot Z79.4 CARE HOME (CURRENT) USE OF INSULIN 09/08/2015 MEGHA PANDA [...] ADULT 09/23/2015 MEGHA MATIAS MD, Ot Z79.01 ANALYTICAL LAB ANALYST (CURRENT) USE OF ANTICOAGULANT 09/23/2015 MEGHA MATIAS MD, Ot Z79.4 CARE HOME (CURRENT) USE OF INSULIN 10/19/2015 MEGHA PANDA [...] ADULT 10/19/2015 MEGHA PANDA MD, Ot Z79.4 ANALYTICAL LAB ANALYST (CURRENT) USE OF INSULIN 12/06/2015 MEGHA PANDA [...] SPECIF 02/02/2016 SANGEETA MARSHALL MD Ot Z79.4 ANALYTICAL LAB ANALYST (CURRENT) USE OF INSULIN 02/17/2016 DANY ESPINAL DO Ot E03.9 02/17/2016 DANY ESPINAL DO Ot I48.2 02/17/2016 DANY ESPINAL DO Ot N39.0 02/22/2016 AGATHA ESPINAL BILL CHECKER Ot N39.0 03/01/2016 AGATHA ESPINAL BILL CHECKER Ot N39.0 03/06/2016 DANY ESPINAL DO Ot [...] UNSPECIFIED 03/21/2016 SANGEETA MARSHALL MD Ot Z79.01 ANALYTICAL LAB ANALYST (CURRENT) USE OF ANTICOAGULANT 03/21/2016 SANGEETA MARSHALL MD Ot Z79.4 ANALYTICAL LAB ANALYST (CURRENT) USE OF INSULIN 03/21/2016 SANGEETA MARSHALL [...] QUADRIPLEGIA 03/22/2016 SANGEETA MARSHALL MD Ot Z79.01 ANALYTICAL LAB ANALYST (CURRENT) USE OF ANTICOAGULANT 03/22/2016 SANGEETA MARSHALL MD Ot Z79.4 CARE HOME (CURRENT) USE OF INSULIN 03/22/2016 SANGEETA MARSHALL [...] CYSTIC KIDNEY DISEASE, UNSPECIFIED 04/26/2016 JOSELUIS BORGES BILL CHECKER Ot 174.9 MALIGN NEOPL BREAST NOS 04/26/2016 JOSELUIS BORGES BILL CHECKER Ot V67.9 FOLLOW-UP EXAM NOS 04/26/2016 ERVIN OSBORNE MD Ot 593.2 CYST OF KIDNEY, ACQUIRED 04/26/2016 NIRAV [facility]OULTON[facility] Ot V72.84 EXAM PRE-OPERATIVE NOS 04/26/2016 ERVIN OSBORNE MD Ot 593.2 CYST OF KIDNEY, ACQUIRED 04/26/2016 FAITH TURK Ot 174.9 MALIGN NEOPL BREAST NOS 04/26/2016 FAITH TURK Ot V67.9 FOLLOW-UP EXAM NOS 04/26/2016 FAITH TURK Ot 793.80 UNSPEC ABNORMAL MAMMOGRAM 04/26/2016 RAVEN LEO SURVEILL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 Ot 729.5 PAIN IN LIMB 04/26/2016 RAVEN LEO SURVE[employer]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 Ot 786.05 SHORTNESS OF BREATH 04/26/2016 [...] MON 04/26/2016 MEGHA PANDA MD Ot Z79.2 ANALYTICAL LAB ANALYST (CURRENT) USE OF ANTIBIOTICS 04/26/2016 AGATHA ESPINAL [...] TRTMT FO 05/11/2016 JOSELUIS BORGES Ot Z79.01 CARE HOME (CURRENT) USE OF ANTICOAGULANT 05/11/2016 JOSELUIS BORGESP Ot Z85.3 PERSONAL HISTORY OF MALIGNANT NEOPLASM O 05/11/2016 JOSELUIS BORGES Ot Z86.718 PERSONAL HISTORY OF OTHER VENOUS THROMBO 05/11/2016 JOSELUIS BORGES Ot Z90.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 05/11/2016 JOSELUIS BORGES Ot Z08 ENCNTR FOR FOLLOW-UP EXAM AFTER TRTMT FO 05/11/2016 JOSELUIS BORGES Ot Z79.01 ANALYTICAL LAB ANALYST (CURRENT) USE OF ANTICOAGULANT 05/11/2016 JOSELUIS BORGESP Ot Z85.3 PERSONAL HISTORY OF MALIGNANT NEOPLASM O 05/11/2016 BORGESJOSELUIS Devi JASON Ot Z86.718 PERSONAL HISTORY OF OTHER VENOUS THROMBO 05/11/2016 BORGESJOSELUIS Devi BILL CHECKER Ot Z90.11 ACQUIRED ABSENCE OF RIGHT BREAST [...] Ot F02.81 DEMENTIA IN [facility] 05/24/2016 DANY ESPINAL DO Ot 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, 05/25/2016 NELLY SMITH DO Ot I51.7 CARDIOMEGALY 05/25/2016 NELLY SMITH DO Ot N39.0 URINARY TRACT INFECTION, SITE NOT SPECIF 05/25/2016 NELLY SMITH DO Ot R09.89 [facility] SYMPTOMS AND SIGNS INVOLVING THE CIR 05/26/2016 DANY ESPINAL DO Ot F02.81 DEMENTIA IN OTH DISEASES CLASSD [facility] W 05/26/2016 DANY ESPINLA DO, Ot G31.9 DEGENERATIVE DISEASE OF NERVOUS [...] CYSTIC KIDNEY DISEASE, UNSPECIFIED 05/28/2016 JOSELUIS BORGES BILL CHECKER Ot 174.9 MALIGN NEOPL BREAST NOS 05/28/2016 JOSELUIS BORGES BILL CHECKER Ot V67.9 FOLLOW-UP EXAM NOS 05/28/2016 ERVIN OSBORNE MD Ot 593.2 CYST OF KIDNEY, ACQUIRED 05/28/2016 NIRAV MOULTON, ARI Ot V72.84 EXAM PRE-OPERATIVE NOS 05/28/2016 ERVIN OSBORNE MD Ot 593.2 CYST OF KIDNEY, ACQUIRED 05/28/2016 FAITH TURK Ot 174.9 MALIGN NEOPL BREAST NOS 05/28/2016 FAITH TURK Ot V67.9 FOLLOW-UP EXAM NOS 05/28/2016 FAITH TURK Ot 793.80 UNSPEC ABNORMAL MAMMOGRAM 05/28/2016 RAVEN LEO SURVEILL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 Ot 729.5 PAIN IN LIMB 05/28/2016 RAVEN LEO SURVEILL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 Ot 786.05 SHORTNESS OF BREATH 05/28/2016 [...] MON 05/28/2016 MEGHA PANDA MD Ot Z79.2 CARE HOME (CURRENT) USE OF ANTIBIOTICS 05/28/2016 AGATHA ESPINAL [...] AFTER TRTMT FO 05/28/2016 BORGES, HILAH S BILL CHECKER Ot Z79.01 ANALYTICAL LAB ANALYST (CURRENT) USE OF ANTICOAGULANT 05/28/2016 JOSELUIS BORGES BILL CHECKER Ot Z85.3 PERSONAL HISTORY OF MALIGNANT NEOPLASM O 05/28/2016 JOSELUIS BORGESP Ot Z86.718 PERSONAL HISTORY OF OTHER VENOUS THROMBO 05/28/2016 JOSELUIS BORGES BILL CHECKER Ot Z90.11 ACQUIRED ABSENCE OF RIGHT BREAST [...] R07.89 OTHER CHEST PAIN 05/30/2016 JOSELUIS BORGES BILL CHECKER Ot Z08 ENCNTR FOR FOLLOW-UP EXAM AFTER TRTMT FO 05/30/2016 JOSELUIS BORGES BILL CHECKER Ot Z79.01 CARE HOME (CURRENT) USE OF ANTICOAGULANT 05/30/2016 JOSELUIS BORGES BILL CHECKER Ot Z85.3 PERSONAL HISTORY OF MALIGNANT NEOPLASM O 05/30/2016 JOSELUIS BORGSE BILL CHECKER Ot Z86.718 PERSONAL HISTORY OF OTHER VENOUS THROMBO 05/30/2016 JOSELUIS BORGES BILL CHECKER Ot Z90.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 05/31/2016 JAYE MENG SURVEILL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 Ot I48.2 CHRONIC ATRIAL FIBRILLATION 05/31/2016 JAYE MENG SURVEILL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 Ot I50.9 HEART FAILURE, UNSPECIFIED 05/31/2016 JAYE MENG APRN Ot K59.00 CONSTIPATION, UNSPECIFIED 05/31/2016 JAYE MENG SURVEILL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 Ot R07.89 OTHER CHEST PAIN 06/07/2016 JOSELUIS BORGES BILL CHECKER Ot Z08 ENCNTR FOR FOLLOW-UP EXAM AFTER TRTMT FO 06/07/2016 JOSELUIS BORGES BILL CHECKER Ot Z79.01 ANALYTICAL LAB ANALYST (CURRENT) USE OF ANTICOAGULANT 06/07/2016 JOSELUIS BORGES BILL CHECKER Ot Z85.3 PERSONAL HISTORY OF MALIGNANT NEOPLASM [...] V10.3 HX OF BREAST MALIGNANCY 07/11/2016 FAITH UTRK Ot V67.9 FOLLOW-UP EXAM NOS 07/11/2016 INDIA MOULTON, ERVIN Lanier Ot 593.9 RENAL URETERAL DIS NOS 07/11/2016 INDIA MOULTON, ERVIN Lanier Ot 753.10 CYSTIC KIDNEY DISEASE, UNSPECIFIED 07/11/2016 JOSELUIS BORGES BILL CHECKER Ot 174.9 MALIGN NEOPL BREAST NOS 07/11/2016 JOSELUIS BORGES BILL CHECKER Ot V67.9 FOLLOW-UP EXAM NOS 07/11/2016 INDIA [...] 793.80 UNSPEC ABNORMAL MAMMOGRAM 07/11/2016 RAVEN LEO SURVEILL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 Ot 729.5 PAIN IN LIMB 07/11/2016 RAVEN LEO SURVEILL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 Ot 786.05 SHORTNESS OF BREATH 07/11/2016 [...] MON 07/11/2016 MEGHA PANDA MD, Ot Z79.2 CARE HOME (CURRENT) USE OF ANTIBIOTICS 07/11/2016 AGATHA ESPINAL [...] TRTMT FO 07/11/2016 JOSELUIS BORGES Ot Z79.01 CARE HOME (CURRENT) USE OF ANTICOAGULANT 07/11/2016 JOSELUIS BORGES [...] MON 07/11/2016 MEGHA PANDA MD Ot Z79.2 CARE HOME (CURRENT) USE OF ANTIBIOTICS 07/11/2016 MEGHA PANDA MD, Ot L03.90 CELLULITIS, UNSPECIFIED 07/11/2016 MEGHA PANDA MD Ot Z51.81 ENCOUNTER FOR THERAPEUTIC DRUG LEVEL MON 07/11/2016 MEGHA PANDA MD, Ot Z79.2 ANALYTICAL LAB ANALYST (CURRENT) USE OF ANTIBIOTICS 08/07/2016 JOSELUIS BORGES BILL CHECKER Ot Z12.31 ENCNTR SCREEN MAMMOGRAM FOR MALIGNANT NE 08/08/2016 JOSELUIS BORGES BILL CHECKER Ot Z12.31 ENCNTR SCREEN MAMMOGRAM FOR MALIGNANT NE 08/08/2016 JOSELUIS BORGES BILL CHECKER Ot Z12.31 ENCNTR SCREEN MAMMOGRAM FOR MALIGNANT NE 08/14/2016 JOSELUIS BORGES BILL CHECKER Ot R92.8 OTH ABN AND INCONCLUSIVE FINDINGS ON DX 08/15/2016 JOSELUIS BORGES BILL CHECKER Ot R92.8 OTH ABN AND INCONCLUSIVE FINDINGS ON DX 08/15/2016 JOSELUIS BORGES BILL CHECKER Ot R92.8 OTH ABN AND INCONCLUSIVE FINDINGS ON DX 08/29/2016 JOSELUIS BORGES BILL CHECKER Ot Z12.31 ENCNTR SCREEN MAMMOGRAM FOR MALIGNANT NE 09/05/2016 JOSELUIS BORGES BILL CHECKER Ot R92.8 OTH ABN AND INCONCLUSIVE FINDINGS ON DX 09/05/2016 JOSELUIS BORGES BILL CHECKER Ot Z12.31 ENCNTR SCREEN MAMMOGRAM FOR MALIGNANT NE 09/12/2016 JOSELUIS BORGES BILL CHECKER Ot R92.8 OTH ABN AND INCONCLUSIVE FINDINGS [...] CYSTIC KIDNEY DISEASE, UNSPECIFIED 02/06/2017 JOSELUIS BORGES BILL CHECKER Ot 174.9 MALIGN NEOPL BREAST NOS 02/06/2017 JOSELUIS BORGES BILL CHECKER Ot V67.9 FOLLOW-UP EXAM NOS 02/06/2017 ERVIN OSBORNE MD Ot 593.2 CYST OF KIDNEY, ACQUIRED 02/06/2017 NIRAV MOULTON, ARI Ot V72.84 EXAM PRE-OPERATIVE NOS 02/06/2017 ERVIN OSBORNE MD Ot 593.2 CYST OF KIDNEY, ACQUIRED 02/06/2017 FAITH TURK Ot 174.9 MALIGN NEOPL BREAST NOS 02/06/2017 FAITH TURK Ot V67.9 FOLLOW-UP EXAM NOS 02/06/2017 FAITH TURK Ot 793.80 UNSPEC ABNORMAL MAMMOGRAM 02/06/2017 RAVEN LEO SURVEILL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 Ot 729.5 PAIN IN LIMB 02/06/2017 RAVEN LEO SURVEILL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 Ot 786.05 SHORTNESS OF BREATH 02/06/2017 [...] MON 02/06/2017 MEGHA PANDA MD Ot Z79.2 CARE HOME (CURRENT) USE OF ANTIBIOTICS 02/06/2017 AGATHA ESPINAL [...] TRTMT FO 02/06/2017 JOSELUIS BORGES Ot Z79.01 CARE HOME (CURRENT) USE OF ANTICOAGULANT 02/06/2017 JOSELUIS BORGES [...] DISEASE OF NERVOUS SYSTEM, 02/06/2017 JOSELUIS BORGES BILL CHECKER Ot R92.8 OT ABN AND INCONCLUSIVE FINDINGS [...] MD Ot I25.10 ATHSCL HEART DISEASE OF [place] CORONARY 03/05/2017 SANGEETA MARSHALL MD Ot I27.2 [...] MD Ot I25.10 ATHSCL HEART DISEASE OF [place] CORONARY 03/05/2017 SANGEETA MARSHALL MD Ot I27.2 [...] ENCOUNTER FOR OTHER PREPROCEDURAL EXAMIN 03/08/2017 BLANCHO DPMRFANCK Ot Z11.2 ENCOUNTER FOR SCREENING FOR OTHER [...] CYSTIC KIDNEY DISEASE, UNSPECIFIED 03/13/2017 JOSELUIS BORGES BILL CHECKER Ot 174.9 MALIGN NEOPL BREAST NOS 03/13/2017 JOSELUIS BORGES BILL CHECKER Ot V67.9 FOLLOW-UP EXAM NOS 03/13/2017 ERVIN [...] 793.80 UNSPEC ABNORMAL MAMMOGRAM 03/13/2017 RAVEN LEO SURVEILL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 Ot 729.5 PAIN IN LIMB 03/13/2017 RAVEN LEO SURVEILL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 Ot 786.05 SHORTNESS OF BREATH 03/13/2017 [...] MON 03/13/2017 MEGHA PANDA MD Ot Z79.2 CARE HOME (CURRENT) USE OF ANTIBIOTICS 03/13/2017 AGATHA ESPINAL [...] TRTMT FO 03/13/2017 JOSELUIS BORGES Ot Z79.01 CARE HOME (CURRENT) USE OF ANTICOAGULANT 03/13/2017 JOSELUIS BORGES [...] 03/13/2017 BLAXOCHILTHO DPM, FRANCK Stanton Ot Z79.4 CARE HOME (CURRENT) USE OF INSULIN 03/13/2017 JOAOHO DPAsh, FRANCK Maximino Ot Z79.84 ANALYTICAL LAB ANALYST (CURRENT) USE OF ORAL HYPOGLYC 03/13/2017 JOAOHO DPAsh FRANCK Stanton Ot Z79.899 OTHER ANALYTICAL LAB ANALYST (CURRENT) DRUG THERAPY 03/28/2017 Ot 250.00 DIAB [...] CYSTIC KIDNEY DISEASE, UNSPECIFIED 03/28/2017 JOSELUIS BORGES BILL CHECKER Ot 174.9 MALIGN NEOPL BREAST NOS 03/28/2017 JOSELUIS BORGES BILL CHECKER Ot V67.9 FOLLOW-UP EXAM NOS 03/28/2017 ERVIN [...] SIGNS INVOLVING THE CIR 04/25/2017 AGATHA ESPINAL BILL CHECKER Ot N28.1 CYST OF KIDNEY, ACQUIRED 04/25/2017 AGATHA ESPINAL BILL CHECKER Ot R10.2 PELVIC AND PERINEAL PAIN 04/26/2017 INDIA MOULTON, ERVIN Lanier Ot N28.1 CYST OF KIDNEY, ACQUIRED 04/26/2017 MARSHA GALLWOAYM, FRANCK Stanton Ot M79.604 PAIN IN RIGHT [...] TRTMT FO 05/10/2017 FAITH TURK Ot Z79.01 CARE HOME (CURRENT) USE OF ANTICOAGULANT 05/10/2017 FAITH TURK Ot Z79.4 ANALYTICAL LAB ANALYST (CURRENT) USE OF INSULIN 05/10/2017 FAITH TURK Ot Z85.3 PERSONAL HISTORY OF MALIGNANT NEOPLASM O 05/10/2017 FAITH TURK Ot Z86.718 PERSONAL HISTORY OF OTHER VENOUS THROMBO 05/10/2017 FAITH TURK Ot Z90.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 05/10/2017 FAITH TURK Ot Z92.21 PERSONAL HISTORY OF ANTINEOPLASTIC CHEMO 05/14/2017 AGATHA ESPINAL BILL CHECKER Ot N28.1 CYST OF KIDNEY, ACQUIRED 05/14/2017 [...] 05/31/2017 YANG VALERA MD Ot Z79.899 OTHER CARE HOME (CURRENT) DRUG THERAPY 06/04/2017 YANG VALERA MD [...] 06/04/2017 YANG VALERA MD Ot Z79.899 OTHER ANALYTICAL LAB ANALYST (CURRENT) DRUG THERAPY 06/13/2017 AGATHA ESPINAL BILL CHECKER Ot N28.1 CYST OF KIDNEY, ACQUIRED 06/13/2017 AGATHA ESPINAL BILL CHECKER Ot R10.2 PELVIC AND PERINEAL PAIN 06/17/2017 ROSALEE EDNASUJATA Evy Ot E11.9 TYPE 2 DIABETES MELLITUS WITHOUT COMPLIC 06/17/2017 ROSALEE EDNASUJATA Evy Ot E78.5 HYPERLIPIDEMIA, UNSPECIFIED 06/17/2017 ROSALEEEDNA RABAGOSUJATA Evy Ot I10 ESSENTIAL (PRIMARY) HYPERTENSION 06/17/2017 FAITH TURK Ot Z08 ENCNTR FOR FOLLOW-UP EXAM AFTER TRTMT FO 06/17/2017 FAITH TURK Ot Z79.01 ANALYTICAL LAB ANALYST (CURRENT) USE OF ANTICOAGULANT 06/17/2017 FAITH TURK Ot Z79.4 ANALYTICAL LAB ANALYST (CURRENT) USE OF INSULIN 06/17/2017 FAITH TURK [...] FOR FOLLOW-UP EXAM AFTER TRTMT FO 06/26/2017 FATIH TURK Ot Z79.01 CARE HOME (CURRENT) USE OF ANTICOAGULANT 06/26/2017 FAITH TURK Ot Z79.4 ANALYTICAL LAB ANALYST (CURRENT) USE OF INSULIN 06/26/2017 FAITH TURK [...] TRTMT FO 08/07/2017 FAITH TURK Ot Z79.01 CARE HOME (CURRENT) USE OF ANTICOAGULANT 08/07/2017 FAITH TURK Ot Z79.4 CARE HOME (CURRENT) USE OF INSULIN 08/07/2017 FAITH TURK [...] HEADACHE 09/04/2017 ARVIND BOGGS MD Ot Z79.4 ANALYTICAL LAB ANALYST (CURRENT) USE OF INSULIN 09/04/2017 ARVIND BOGGS MD Ot Z79.899 OTHER ANALYTICAL LAB ANALYST (CURRENT) DRUG THERAPY 09/11/2017 ARVIND BOGGS MD [...] HEADACHE 09/11/2017 ARVIND BOGGS MD Ot Z79.4 ANALYTICAL LAB ANALYST (CURRENT) USE OF INSULIN 09/11/2017 ARVIND BOGGS MD Ot Z79.899 OTHER ANALYTICAL LAB ANALYST (CURRENT) DRUG THERAPY 09/14/2017 DANY ESPINAL DO Ot D72.829 ELEVATED WHITE BLOOD CELL COUNT, UNSPECI 09/14/2017 DANY ESPINAL DO Ot E11.9 TYPE 2 DIABETES MELLITUS WITHOUT COMPLIC 09/14/2017 DANY ESPINAL DO, Ot E66.9 OBESITY, UNSPECIFIED 09/14/2017 DANY ESPINAL DO, Ot E78.5 HYPERLIPIDEMIA, UNSPECIFIED 09/14/2017 DANY ESPINAL DO, Ot F31.9 BIPOLAR DISORDER, UNSPECIFIED 09/14/2017 DANY ESPINAL DO, Ot I25.10 ATHSCL HEART DISEASE OF [place] CORONARY 09/14/2017 DANY ESPINAL DO, Ot I27.20 PULMONARY HYPERTENSION, UNSPECIFIED 09/14/2017 DANY ESPINAL DO, Ot I48.2 CHRONIC ATRIAL FIBRILLATION 09/14/2017 ADNY ESPINAL DO, Ot I51.7 CARDIOMEGALY 09/14/2017 DANY ESPINAL DO, Ot J44.9 CHRONIC OBSTRUCTIVE PULMONARY DISEASE, U 09/14/2017 DANY ESPINAL DO, Ot K59.00 CONSTIPATION, UNSPECIFIED 09/14/2017 DANY ESPINAL DO, Ot N39.0 URINARY TRACT INFECTION, SITE NOT SPECIF 09/14/2017 DANY ESPINAL DO, Ot R07.9 CHEST PAIN, UNSPECIFIED 09/14/2017 DANY ESPINAL DO, Ot Z68.30 BODY MASS INDEX (BMI) 30.0-30.9, ADULT 09/14/2017 DANY ESPINAL DO, Ot Z79.01 ANALYTICAL LAB ANALYST (CURRENT) USE OF ANTICOAGULANT 09/14/2017 DANY ESPINAL DO, Ot Z79.4 ANALYTICAL LAB ANALYST (CURRENT) USE OF INSULIN 09/14/2017 DANY ESPINAL DO, Ot Z79.899 OTHER CARE HOME (CURRENT) DRUG THERAPY 09/14/2017 ADNY ESPINAL DO, Ot Z85.3 PERSONAL HISTORY OF [...] CYSTIC KIDNEY DISEASE, UNSPECIFIED 02/03/2018 JOSELUIS BORGES BILL CHECKER Ot 174.9 MALIGN NEOPL BREAST NOS 02/03/2018 JOSELUIS BORGES BILL CHECKER Ot V67.9 FOLLOW-UP EXAM NOS 02/03/2018 ERVIN OSBORNE MD Ot 593.2 CYST OF KIDNEY, ACQUIRED 02/03/2018 NIRAV MOULTON, ARI Ot V72.84 EXAM PRE-OPERATIVE NOS 02/03/2018 ERVIN OSBORNE MD Ot 593.2 CYST OF KIDNEY, ACQUIRED 02/03/2018 FAITH TURK Ot 174.9 MALIGN NEOPL BREAST NOS 02/03/2018 FAITH TURK Ot V67.9 FOLLOW-UP EXAM NOS 02/03/2018 FAITH TUKR Ot 793.80 UNSPEC ABNORMAL MAMMOGRAM 02/03/2018 RAVEN LEO SURVEILL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 Ot 729.5 PAIN IN LIMB 02/03/2018 RAVEN LEO SURVEILL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 Ot 786.05 SHORTNESS OF BREATH 02/03/2018 [...] PANDA MD Ot L03.90 CELLULITIS, UNSPECIFIED 02/03/2018 MGEHA PANDA MD Ot Z51.81 ENCOUNTER FOR THERAPEUTIC DRUG LEVEL MON 02/03/2018 MEGHA PANDA MD Ot Z79.2 ANALYTICAL LAB ANALYST (CURRENT) USE OF ANTIBIOTICS 02/03/2018 AGATHA ESPINAL [...] AFTER TRTMT FO 02/03/2018 BORGES, HILAH S BILL CHECKER Ot Z79.01 ANALYTICAL LAB ANALYST (CURRENT) USE OF ANTICOAGULANT 02/03/2018 JOSELUIS BORGES BILL CHECKER Ot Z85.3 PERSONAL HISTORY OF MALIGNANT NEOPLASM [...] PAIN IN RIGHT LEG 02/03/2018 AGATHA ESPINAL BILL CHECKER Ot N28.1 CYST OF KIDNEY, ACQUIRED 02/03/2018 AGATHA ESPINAL BILL CHECKER Ot R10.2 PELVIC AND PERINEAL PAIN 02/03/2018 INDIA MOULTON, ERVIN Lanier Ot N28.1 CYST OF KIDNEY, ACQUIRED 02/03/2018 KO KENDRICK DO Ot M51.36 OTHER INTERVERTEBRAL DISC DEGENERATION, 02/03/2018 FAITH TURK Ot R92.8 OTH ABN AND INCONCLUSIVE FINDINGS ON DX 02/03/2018 FAITH TURK Ot E11.9 TYPE 2 DIABETES MELLITUS WITHOUT COMPLIC 02/03/2018 FAIHT TRUK Ot E78.5 HYPERLIPIDEMIA, UNSPECIFIED 02/03/2018 FAITH TURK Ot I10 ESSENTIAL (PRIMARY) HYPERTENSION 02/03/2018 FAITH TURK Ot Z08 ENCNTR FOR FOLLOW-UP EXAM AFTER TRTMT FO 02/03/2018 FAITH TURK Ot Z79.01 CARE HOME (CURRENT) USE OF ANTICOAGULANT 02/03/2018 FAITH TURK Ot Z79.4 CARE HOME (CURRENT) USE OF INSULIN 02/03/2018 FAITH TURK [...] 793.80 UNSPEC ABNORMAL MAMMOGRAM 02/10/2018 RAVEN LEO SURVEILL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 Ot 729.5 PAIN IN LIMB 02/10/2018 RAVEN LEO SURVEILL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 Ot 786.05 SHORTNESS OF BREATH 02/10/2018 [...] MON 02/10/2018 MEGHA PANDA MD Ot Z79.2 CARE HOME (CURRENT) USE OF ANTIBIOTICS 02/10/2018 AGATHA ESPINAL [...] TRTMT FO 02/10/2018 JOSELUIS BORGES Ot Z79.01 CARE HOME (CURRENT) USE OF ANTICOAGULANT 02/10/2018 JOSELUIS BORGES [...] PAIN IN RIGHT LEG 02/10/2018 TEDDYHENRIETTAAGATHA L BILL CHECKER Ot N28.1 CYST OF KIDNEY, ACQUIRED 02/10/2018 AGATHA ESPINAL BILL CHECKER Ot R10.2 PELVIC AND PERINEAL PAIN 02/10/2018 INDIA MOULTON, ERVIN Lanier Ot N28.1 CYST OF KIDNEY, ACQUIRED 02/10/2018 OK KENRDICK DO Ot M51.36 OTHER INTERVERTEBRAL DISC DEGENERATION, 02/10/2018 FAITH TURK Evy Ot R92.8 OTH ABN AND INCONCLUSIVE FINDINGS ON DX 02/10/2018 FAIHT TURK Evy Ot E11.9 TYPE 2 DIABETES MELLITUS WITHOUT COMPLIC 02/10/2018 FAITH TURK Evy Ot E78.5 HYPERLIPIDEMIA, UNSPECIFIED 02/10/2018 FAITH TURK Evy Ot I10 ESSENTIAL (PRIMARY) HYPERTENSION 02/10/2018 ROSALEEFAITH RABAGO Evy Ot Z08 ENCNTR FOR FOLLOW-UP EXAM AFTER TRTMT FO 02/10/2018 ROSALEE FAITH Evy Ot Z79.01 ANALYTICAL LAB ANALYST (CURRENT) USE OF ANTICOAGULANT 02/10/2018 ROSALEE FAITH N Ot Z79.4 CARE HOME (CURRENT) USE OF INSULIN 02/10/2018 FAITH TURK Evy Ot Z85.3 PERSONAL HISTORY OF MALIGNANT NEOPLASM O 02/10/2018 ROSALEEFAITH RABAGO Evy Ot Z86.718 PERSONAL HISTORY OF OTHER VENOUS THROMBO 02/10/2018 FAITH TURK Evy Ot Z90.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 02/10/2018 FAITH TURK Evy Ot Z92.21 PERSONAL HISTORY OF ANTINEOPLASTIC CHEMO 02/10/2018 JOSELUIS BORGES BILL CHECKER Ot R92.8 OTH ABN AND INCONCLUSIVE FINDINGS ON DX 02/11/2018 JOSELUIS BORGES BILL CHECKER Ot C50.911 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 02/11/2018 JOSELUIS BORGES BILL CHECKER Ot 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 02/11/2018 JOSELUIS BORGES BILL CHECKER Ot C50.911 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 02/11/2018 JOSELUIS BORGES BILL CHECKER Ot 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 02/21/2018 JOSELUIS BORGES BILL CHECKER Ot C50.911 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 02/21/2018 JOSELUIS BORGES BILL CHECKER Ot 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 02/21/2018 JOSELUIS BORGES BILL CHECKER Ot C50.911 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 02/21/2018 JOSELUIS BORGES BILL CHECKER Ot 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 03/08/2018 Ot 611.89 OTHER SPECIFIED DISORDERS OF BREAST 03/08/2018 Ot V67.09 SURGERY FOLLOW-UP, OTHER SURGERY 03/08/2018 FARZAD MOULTON, MEGHA Ku Ot 786.2 COUGH 03/08/2018 Ot 729.5 PAIN IN LIMB 03/08/2018 Ot V12.51 HX-VENOUS THROMBOSIS EMBOLISM 03/08/2018 FAITH TURK Ot 174.9 MALIGN NEOPL BREAST NOS 03/08/2018 FARZAD MOULTON, MEGHA Ku Ot 453.40 ACUTE VENOUS EMBOLISM THROMBOSIS UNSP 03/08/2018 FAITH TURK Ot V10.3 HX OF BREAST MALIGNANCY 03/08/2018 FAITH TURK Ot V67.9 FOLLOW-UP EXAM NOS 03/08/2018 ERVIN OSBORNE MD Ot 593.9 RENAL URETERAL DIS NOS 03/08/2018 INDIA MOULTON, ERVIN Lanier Ot 753.10 CYSTIC KIDNEY DISEASE, UNSPECIFIED 03/08/2018 JOSELUIS BORGES Marito BILL CHECKER Ot 174.9 MALIGN NEOPL BREAST NOS 03/08/2018 BORGESJOSELUIS Devi BILL CHECKER Ot V67.9 FOLLOW-UP EXAM NOS 03/08/2018 ERVIN OSBORNE MD Ot 593.2 CYST OF KIDNEY, ACQUIRED 03/08/2018 NIRAV MOULTON, ARI Ot V72.84 EXAM PRE-OPERATIVE NOS 03/08/2018 ERVIN OSBORNE MD Ot 593.2 CYST OF KIDNEY, ACQUIRED 03/08/2018 FAITH TURK Ot 174.9 MALIGN NEOPL BREAST NOS 03/08/2018 FAITH TURK Ot V67.9 FOLLOW-UP EXAM NOS 03/08/2018 FAITH TURK Ot 793.80 UNSPEC ABNORMAL MAMMOGRAM 03/08/2018 RAVEN LEO SURVEILL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 Ot 729.5 PAIN IN LIMB 03/08/2018 RAVEN LEO SURVEILL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 Ot 786.05 SHORTNESS OF BREATH 03/08/2018 IND[place] MOULTON, ERVIN Lanier Ot 593.2 CYST OF KIDNEY, ACQUIRED 03/08/2018 MEGHA PANDA MD Ot 428.0 CONGESTIVE HEART FAILURE NOS 03/08/2018 IND[place] MOULTON, ERVIN Lanier Ot 753.10 CYSTIC KIDNEY DISEASE, UNSPECIFIED 03/08/2018 ROSALEEFAITH Ot V10.3 HX OF BREAST MALIGNANCY 03/08/2018 FAITH TURK Ot V12.51 HX-VENOUS THROMBOSIS EMBOLISM 03/08/2018 FAITH TURK Ot V12.55 PERSONAL HISTORY OF PULMONARY EMBOLISM 03/08/2018 FAITH TURK Ot V45.71 ACQUIRED ABSENCE OF BREAST AND NIPPLE 03/08/2018 FAITH TURK Ot V58.61 ANTICOAGULANTS,LT,CURRENT USE 03/08/2018 FAITH TURK Ot V58.69 OTH MED,LT,CURRENT USE 03/08/2018 FAITH TURK Ot V67.2 CHEMOTHERAPY FOLLOW-UP 03/08/2018 FAITH TURK Ot 174.9 MALIGN NEOPL BREAST NOS 03/08/2018 MEGHA PANDA MD Ot 276.1 HYPOSMOLALITY 03/08/2018 MEGHA PANDA MD Ot 250.00 DIAB TJ WO COMPL, TYPE II OR UNSPEC TY 03/08/2018 MEGHA PANDA MD Ot 276.8 HYPOPOTASSEMIA 03/08/2018 MEGHA PANDA MD Ot 250.00 DIAB TJ WO COMPL, TYPE II OR UNSPEC TY 03/08/2018 MEGHA PANDA MD Ot V58.69 OTH MED,LT,CURRENT USE 03/08/2018 MEGHA PANDA MD Ot L03.90 CELLULITIS, UNSPECIFIED 03/08/2018 MEGHA PANDA MD Ot Z51.81 ENCOUNTER FOR THERAPEUTIC DRUG LEVEL MON 03/08/2018 MEGHA PANDA MD Ot Z79.2 CARE HOME (CURRENT) USE OF ANTIBIOTICS 03/08/2018 AGATHA ESPINAL Ot N39.0 URINARY TRACT INFECTION, SITE NOT SPECIF 03/08/2018 DANY ESPINAL DO Ot E03.9 HYPOTHYROIDISM, UNSPECIFIED 03/08/2018 DANY ESPINAL DO Ot I48.2 CHRONIC ATRIAL FIBRILLATION 03/08/2018 DANY ESPINAL DO Ot N39.0 URINARY TRACT INFECTION, SITE NOT SPECIF 03/08/2018 DANY ESPINAL DO Ot N39.0 URINARY TRACT INFECTION, SITE NOT SPECIF 03/08/2018 Ot 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 03/08/2018 Ot N28.1 CYST OF KIDNEY, ACQUIRED 03/08/2018 JOSELUIS BORGES Ot Z08 ENCNTR FOR FOLLOW-UP EXAM AFTER TRTMT FO 03/08/2018 JOSELUIS BORGES Ot Z79.01 CARE HOME (CURRENT) USE OF ANTICOAGULANT 03/08/2018 JOSELUIS BORGES Ot Z85.3 PERSONAL HISTORY OF MALIGNANT NEOPLASM O 03/08/2018 JOSELUIS BORGES Ot Z86.718 PERSONAL HISTORY OF OTHER VENOUS THROMBO 03/08/2018 JOSELUIS BORGES Ot Z90.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 03/08/2018 JOSELUIS BORGES Ot Z12.31 ENCNTR SCREEN MAMMOGRAM FOR MALIGNANT NE 03/08/2018 DANY ESPINAL DO Ot 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 03/08/2018 DANY ESPINAL DO Ot 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, 03/08/2018 JOSELUIS BORGES Ot R92.8 OTH ABN AND INCONCLUSIVE FINDINGS ON DX 03/08/2018 SHEELA BANUELOS MD Ot E78.2 MIXED HYPERLIPIDEMIA 03/08/2018 SHEELA BANUELOS MD, Ot G25.0 ESSENTIAL TREMOR 03/08/2018 SHEELA BANUELOS MD Ot I10 ESSENTIAL (PRIMARY) HYPERTENSION 03/08/2018 SHEELA BANUELOS MD Ot I48.0 PAROXYSMAL ATRIAL FIBRILLATION 03/08/2018 SHEELA BANUELOS MD Ot R07.9 CHEST PAIN, UNSPECIFIED 03/08/2018 MARSHA GALLOWAYM, FRANCK Stanton Ot M79.604 PAIN IN RIGHT LEG 03/08/2018 AGATHA ESPINAL Ot N28.1 CYST OF KIDNEY, ACQUIRED 03/08/2018 AGATHA ESPINAL Ot R10.2 PELVIC AND PERINEAL PAIN 03/08/2018 IND[place] MOULTON, ERVIN Lanier Ot N28.1 CYST OF KIDNEY, ACQUIRED 03/08/2018 KO KENDRICK DO Ot M51.36 OTHER INTERVERTEBRAL DISC DEGENERATION, 03/08/2018 FAITH TURK Ot R92.8 OTH ABN AND INCONCLUSIVE FINDINGS ON DX 03/08/2018 FAITH TURK Ot E11.9 TYPE 2 DIABETES MELLITUS WITHOUT COMPLIC 03/08/2018 FAITH TURK Ot E78.5 HYPERLIPIDEMIA, UNSPECIFIED 03/08/2018 FAITH TURK Ot I10 ESSENTIAL (PRIMARY) HYPERTENSION 03/08/2018 FAITH TURK Ot Z08 ENCNTR FOR FOLLOW-UP EXAM AFTER TRTMT FO 03/08/2018 FAITH TURK Ot Z79.01 ANALYTICAL LAB ANALYST (CURRENT) USE OF ANTICOAGULANT 03/08/2018 FAITH TURK Ot Z79.4 ANALYTICAL LAB ANALYST (CURRENT) USE OF INSULIN 03/08/2018 FAITH TURK Ot Z85.3 PERSONAL HISTORY OF MALIGNANT NEOPLASM O 03/08/2018 FAITH TURK Ot Z86.718 PERSONAL HISTORY OF OTHER VENOUS THROMBO 03/08/2018 FAITH TURK Ot Z90.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 03/08/2018 FAITH TURK Ot Z92.21 PERSONAL HISTORY OF ANTINEOPLASTIC CHEMO 03/08/2018 JOSELUIS BORGES BILL CHECKER Ot C50.911 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 03/08/2018 JOSELUIS BORGES BILL CHECKER Ot 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 03/10/2018 DEEPA MOULTON, YANG Devi Ot E11.9 TYPE 2 DIABETES MELLITUS WITHOUT COMPLIC 03/10/2018 YANG ARENAS MD Ot E78.00 PURE HYPERCHOLESTEROLEMIA, UNSPECIFIED 03/10/2018 YANG ARENAS MD Ot F03.90 UNSPECIFIED DEMENTIA WITHOUT BEHAVIORAL 03/10/2018 YANG ARENAS MD Ot F32.9 MAJOR DEPRESSIVE DISORDER, SINGLE EPISOD 03/10/2018 YANG ARENAS MD Ot F41.9 ANXIETY DISORDER, UNSPECIFIED 03/10/2018 YANG ARENAS MD Ot I10 ESSENTIAL (PRIMARY) HYPERTENSION 03/10/2018 YANG ARENAS MD Ot I25.10 ATHSCL HEART DISEASE OF [place] CORONARY 03/10/2018 YANG ARENAS MD Ot I48.91 UNSPECIFIED ATRIAL FIBRILLATION 03/10/2018 YANG ARENAS MD Ot J44.9 CHRONIC OBSTRUCTIVE PULMONARY DISEASE, U 03/10/2018 YANG ARENAS MD Ot R04.0 EPISTAXIS 03/10/2018 YANG ARENAS MD Ot Z79.01 CARE HOME (CURRENT) USE OF ANTICOAGULANT 03/10/2018 YANG ARENAS MD Ot Z79.4 CARE HOME (CURRENT) USE OF INSULIN 03/10/2018 YANG ARENAS MD Ot Z85.3 PERSONAL HISTORY OF MALIGNANT NEOPLASM O 03/10/2018 YANG ARENAS MD Ot Z86.711 PERSONAL HISTORY OF PULMONARY EMBOLISM 03/10/2018 YANG ARENAS MD Ot Z86.718 PERSONAL HISTORY OF OTHER VENOUS THROMBO 03/10/2018 YANG ARENAS MD Ot Z87.01 PERSONAL HISTORY OF PNEUMONIA (RECURRENT 03/10/2018 YANG ARENAS MD Ot Z87.09 PERSONAL HISTORY OF OTHER DISEASES OF 03/10/2018 YANG ARENAS MD Ot Z87.19 PERSONAL HISTORY OF OTHER DISEASES OF 03/10/2018 YANG ARENAS MD Ot Z87.81 PERSONAL HISTORY OF (HEALED) TRAUMATIC F 03/10/2018 YANG ARENAS MD Ot Z87.828 PERSONAL HISTORY OF OTH (HEALED) PHYSICA 03/10/2018 YANG ARENAS MD Ot Z88.0 ALLERGY STATUS TO PENICILLIN 03/10/2018 YANG ARENAS MD Ot Z88.2 ALLERGY STATUS TO SULFONAMIDES STATUS 03/10/2018 YANG ARENAS MD Ot Z88.5 ALLERGY STATUS TO NARCOTIC AGENT STATUS 03/10/2018 YANG ARENAS MD Ot Z90.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 03/10/2018 YANG ARENAS MD Ot Z90.49 ACQUIRED ABSENCE OF OTHER SPECIFIED PART 03/10/2018 YANG ARENAS MD Ot Z90.710 ACQUIRED ABSENCE OF BOTH CERVIX AND UTER 03/10/2018 YANG ARENAS MD Ot Z90.89 ACQUIRED ABSENCE OF OTHER ORGANS 03/10/2018 YANG ARENAS MD Ot E11.9 TYPE 2 DIABETES MELLITUS WITHOUT COMPLIC 03/10/2018 YANG ARENAS MD Ot E78.00 PURE HYPERCHOLESTEROLEMIA, UNSPECIFIED 03/10/2018 YANG ARENAS MD Ot F03.90 UNSPECIFIED DEMENTIA WITHOUT BEHAVIORAL 03/10/2018 DEEPA MOULTON, YANG Devi Ot F32.9 MAJOR DEPRESSIVE DISORDER, SINGLE EPISOD 03/10/2018 DEEPA MOULTON, YANG Devi Ot F41.9 ANXIETY DISORDER, UNSPECIFIED 03/10/2018 DEEPA MOULTON, YANG Devi Ot G47.30 SLEEP APNEA, UNSPECIFIED 03/10/2018 YANG ARENAS MD Ot I10 ESSENTIAL (PRIMARY) HYPERTENSION 03/10/2018 DEEPA MOULTON, YANG Devi Ot I25.10 ATHSCL HEART DISEASE OF [place] CORONARY 03/10/2018 DEEPA MOULTON, YANG Devi Ot I48.91 UNSPECIFIED ATRIAL FIBRILLATION 03/10/2018 DEEPA MOULTON, YANG Devi Ot J44.9 CHRONIC OBSTRUCTIVE PULMONARY DISEASE, U 03/10/2018 YANG ARENAS MD Ot R04.0 EPISTAXIS 03/10/2018 YANG ARENAS MD Ot Z79.01 ANALYTICAL LAB ANALYST (CURRENT) USE OF ANTICOAGULANT 03/10/2018 YANG ARENAS MD Ot Z79.4 ANALYTICAL LAB ANALYST (CURRENT) USE OF INSULIN 03/10/2018 YANG ARENAS MD Ot Z85.3 PERSONAL HISTORY OF MALIGNANT NEOPLASM O 03/10/2018 YANG ARENAS MD Ot Z86.711 PERSONAL HISTORY OF PULMONARY EMBOLISM 03/10/2018 YANG ARENAS MD Ot Z86.718 PERSONAL HISTORY OF OTHER VENOUS THROMBO 03/10/2018 YANG ARENAS MD Ot Z87.19 PERSONAL HISTORY OF OTHER DISEASES OF TH 03/10/2018 YANG ARENAS MD Ot Z87.2 PERSONAL HISTORY OF DISEASES OF THE SKIN 03/10/2018 YANG ARENAS MD Ot Z87.448 PERSONAL HISTORY OF OTHER DISEASES OF UR 03/10/2018 YANG ARENAS MD Ot Z87.81 PERSONAL HISTORY OF (HEALED) TRAUMATIC F 03/10/2018 YANG ARENAS MD Ot Z87.828 PERSONAL HISTORY OF OTH (HEALED) PHYSICA 03/10/2018 YANG ARENAS MD Ot Z88.0 ALLERGY STATUS TO PENICILLIN 03/10/2018 YANG ARENAS MD Ot Z88.2 ALLERGY STATUS TO SULFONAMIDES STATUS 03/10/2018 YANG ARENAS MD Ot Z88.5 ALLERGY STATUS TO NARCOTIC AGENT STATUS 03/10/2018 YANG ARENAS MD Ot Z88.8 ALLERGY STATUS TO [facility] DRUG/MEDS/BIOL SUB 03/10/2018 DEEPA MOULTON, YANG Marito Ot Z90.10 ACQUIRED ABSENCE OF UNSPECIFIED BREAST A 03/10/2018 DEEPA MOULTON, YANG Marito Ot Z90.49 ACQUIRED ABSENCE OF OTHER SPECIFIED PART 03/10/2018 DEEPA MOULTON, YANG Marito Ot Z90.710 ACQUIRED ABSENCE OF BOTH CERVIX AND UTER 03/10/2018 DEEPA MOULTON, YANG Devi Ot Z90.89 ACQUIRED ABSENCE OF OTHER ORGANS 03/10/2018 DEEPA MOULTON, YANG Devi Ot Z98.890 OTHER SPECIFIED POSTPROCEDURAL STATES 03/10/2018 DEEPA MOULTON, YANG Marito Ot E11.9 TYPE 2 DIABETES MELLITUS WITHOUT COMPLIC 03/10/2018 DEEPA MOULTON, YANG Devi Ot E78.00 PURE HYPERCHOLESTEROLEMIA, UNSPECIFIED 03/10/2018 DEEPA MOULTON, YANG Devi Ot F03.90 UNSPECIFIED DEMENTIA WITHOUT BEHAVIORAL 03/10/2018 DEEPA MOULTON, YANG Devi Ot F32.9 MAJOR DEPRESSIVE DISORDER, SINGLE EPISOD 03/10/2018 DEEPA MOULTON, YANG Marito Ot F41.9 ANXIETY DISORDER, UNSPECIFIED 03/10/2018 DEEPA MOULTON, YANG eDvi Ot G47.30 SLEEP APNEA, UNSPECIFIED 03/10/2018 DEEPA MOULTON, YANG Devi Ot I10 ESSENTIAL (PRIMARY) HYPERTENSION 03/10/2018 DEEPA MOULTON, YANG Marito Ot I25.10 ATHSCL HEART DISEASE OF [place] CORONARY 03/10/2018 DEEPA MOULTON, YANG Marito Ot I48.91 UNSPECIFIED ATRIAL FIBRILLATION 03/10/2018 DEEPA MOULTON, YANG Devi Ot J44.9 CHRONIC OBSTRUCTIVE PULMONARY DISEASE, U 03/10/2018 DEEPA MOULTON, YANG Marito Ot R04.0 EPISTAXIS 03/10/2018 DEEPA MOULTON, YANG Marito Ot Z79.01 CARE HOME (CURRENT) USE OF ANTICOAGULANT 03/10/2018 YANG ARENAS MD Ot Z79.4 CARE HOME (CURRENT) USE OF INSULIN 03/10/2018 DEEPA MOULTON, YANG Devi Ot Z85.3 PERSONAL HISTORY OF MALIGNANT NEOPLASM O 03/10/2018 DEEPA MOULTON, YANG Devi Ot Z86.711 PERSONAL HISTORY OF PULMONARY EMBOLISM 03/10/2018 DEEPA MOULTON, YANG Devi Ot Z86.718 PERSONAL HISTORY OF OTHER VENOUS THROMBO 03/10/2018 YANG ARENAS MD Ot Z87.19 PERSONAL HISTORY OF OTHER DISEASES OF TH 03/10/2018 YANG ARENAS MD Ot Z87.2 PERSONAL HISTORY OF DISEASES OF THE SKIN 03/10/2018 YANG ARENAS MD Ot Z87.448 PERSONAL HISTORY OF OTHER DISEASES OF UR 03/10/2018 YANG ARENAS MD Ot Z87.81 PERSONAL HISTORY OF (HEALED) TRAUMATIC F 03/10/2018 YANG ARENAS MD Ot Z87.828 PERSONAL HISTORY OF OTH (HEALED) PHYSICA 03/10/2018 YANG ARENSA MD Ot Z88.0 ALLERGY STATUS TO PENICILLIN 03/10/2018 YANG ARENAS MD Ot Z88.2 ALLERGY STATUS TO SULFONAMIDES STATUS 03/10/2018 YANG ARENAS MD Ot Z88.5 ALLERGY STATUS TO NARCOTIC AGENT STATUS 03/10/2018 YANG ARENAS MD Ot Z88.8 ALLERGY STATUS TO OTH DRUG/MEDS/BIOL SUB 03/10/2018 YANG ARENAS MD Ot Z90.10 ACQUIRED ABSENCE OF UNSPECIFIED BREAST A 03/10/2018 YANG ARENAS MD Ot Z90.49 ACQUIRED ABSENCE OF OTHER SPECIFIED PART 03/10/2018 YANG ARENAS MD Ot Z90.710 ACQUIRED ABSENCE OF BOTH CERVIX AND UTER 03/10/2018 YANG ARENAS MD Ot Z90.89 ACQUIRED ABSENCE OF OTHER ORGANS 03/10/2018 YANG ARENAS MD Ot Z98.890 OTHER SPECIFIED POSTPROCEDURAL STATES 03/13/2018 BRIAN HENDRICKSON MD Ot E11.9 TYPE 2 DIABETES MELLITUS WITHOUT COMPLIC 03/13/2018 BRIAN HENDRICKSON MD Ot E78.00 PURE HYPERCHOLESTEROLEMIA, UNSPECIFIED 03/13/2018 BRIAN HENDRICKSON MD Ot E87.70 FLUID OVERLOAD, UNSPECIFIED 03/13/2018 BRIAN HENDRICKSON MD Ot F03.90 UNSPECIFIED DEMENTIA WITHOUT BEHAVIORAL 03/13/2018 BRIAN HENDRICKSON MD Ot F32.9 MAJOR DEPRESSIVE DISORDER, SINGLE EPISOD 03/13/2018 BRIAN HENDRICKSON MD Ot F41.9 ANXIETY DISORDER, UNSPECIFIED 03/13/2018 BRIAN HENDRICKSON MD, Ot G47.30 SLEEP APNEA, UNSPECIFIED 03/13/2018 BRIAN HENDRICKSON MD, Ot I10 ESSENTIAL (PRIMARY) HYPERTENSION 03/13/2018 BRIAN HENDRICKSON MD, Ot I25.10 ATHSCL HEART DISEASE OF [place] CORONARY 03/13/2018 BRIAN HENDRICKSON MD, Ot I48.91 UNSPECIFIED ATRIAL FIBRILLATION 03/13/2018 BRIAN HENDRICKSON MD, Ot J44.9 CHRONIC OBSTRUCTIVE PULMONARY DISEASE, U 03/13/2018 BRIAN HENDRICKSON MD, Ot R10.13 EPIGASTRIC PAIN 03/13/2018 BRIAN HENDRICKSON MD, Ot R11.2 NAUSEA WITH VOMITING, UNSPECIFIED 03/13/2018 BRIAN HENDRICKSON MD, Ot Z79.01 ANALYTICAL LAB ANALYST (CURRENT) USE OF ANTICOAGULANT 03/13/2018 BRIAN HENDRICKSON MD, Ot Z79.4 CARE HOME (CURRENT) USE OF INSULIN 03/13/2018 BRIAN HENDRICKSON MD, Ot Z80.51 FAMILY HISTORY OF MALIGNANT NEOPLASM OF 03/13/2018 BRIAN HENDRICKSON MD, Ot Z85.3 PERSONAL HISTORY OF MALIGNANT NEOPLASM O 03/13/2018 BRIAN HENDRICKSON MD, Ot Z86.718 PERSONAL HISTORY OF OTHER VENOUS THROMBO 03/13/2018 BRIAN HENDRICKSON MD, Ot Z87.19 PERSONAL HISTORY OF OTHER DISEASES OF 03/13/2018 BRIAN HENDRICKSON MD Ot Z87.440 PERSONAL HISTORY OF URINARY (TRACT) INFE 03/13/2018 BRIAN HENDRICKSON MD Ot Z88.0 ALLERGY STATUS TO PENICILLIN 03/13/2018 BRIAN HENDRICKSON MD Ot Z88.2 ALLERGY STATUS TO SULFONAMIDES STATUS 03/13/2018 BRIAN HENDRICKSON MD Ot Z88.5 ALLERGY STATUS TO NARCOTIC AGENT STATUS 03/13/2018 BRIAN HENDRICKSON MD, Ot Z88.8 ALLERGY STATUS TO OTH DRUG/MEDS/BIOL SUB 03/13/2018 BRIAN HENDRICKSON MD, Ot Z90.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 03/13/2018 BRIAN HENDRICKSON MD, Ot Z90.49 ACQUIRED ABSENCE OF OTHER SPECIFIED PART 03/13/2018 BRIAN HENDRICKSON MD, Ot Z90.710 ACQUIRED ABSENCE OF BOTH CERVIX AND UTER 03/13/2018 BRIAN HENDRICKSON MD, Ot Z90.81 ACQUIRED ABSENCE OF SPLEEN 03/13/2018 BRIAN HENDRICKSON MD, Ot Z90.89 ACQUIRED ABSENCE OF OTHER ORGANS 03/13/2018 BRIAN HENDRICKSON MD, Ot Z92.21 PERSONAL HISTORY OF ANTINEOPLASTIC CHEMO Procedures Code Description Performed By Performed On 88.72 DX ULTRASOUND-HEART 12/30/2012 99.62 HEART COUNTERSHOCK NEC 12/30/2012 37.22 LEFT HEART CARDIAC CATH 11/14/2014 88.53 LT HEART ANGIOCARDIOGRAM 11/14/2014 88.56 CORONAR ARTERIOGR-2 CATH 11/14/2014 [id number] REPOSITION R UP FEMUR WITH INTRAMED FIX, 09/04/2015 [id number] REMOVAL OF INT FIX FROM R UP FEMUR, EXTE 09/16/2015 [id number] REPOSITION RIGHT UPPER FEMUR WITH INT FI 09/16/2015 [id number] DRAIN OF L UP LEG SUBCU/ FASCIA [...] measurement by glucometer (mass/volume) 312 mg/dL 70-110 Complete blood count (CBC) with automated white blood cell (WBC) differential - 03/08/18 10:48 Blood leukocytes automated count (number/volume) 12.7 10*3/uL 4.3-11.0 Blood erythrocytes automated count (number/volume) 4.12 10*6/uL 4.35-5.85 Venous blood hemoglobin measurement (mass/volume) 12.5 g/dL 11.5-16.0 Blood hematocrit (volume fraction) 38 % 35-52 Automated erythrocyte mean corpuscular volume 93 [foz_us] 80-99 Automated erythrocyte mean corpuscular hemoglobin (mass per erythrocyte) 30 pg 25-34 Automated erythrocyte mean corpuscular hemoglobin concentration measurement ( mass/volume) 33 g/dL 32-36 Automated erythrocyte distribution width ratio 14.5 % 10.0-14.5 Automated blood platelet count (count/volume) 236 10*3/uL 130-400 Automated blood platelet mean volume measurement 11.9 [foz_us] 7.4-10.4 Automated blood neutrophils/100 leukocytes 74 % 42-75 Automated blood lymphocytes/100 leukocytes 18 % 12-44 Blood monocytes/100 leukocytes 6 % 0-12 Automated blood eosinophils/100 leukocytes 2 % 0-10 Automated blood basophils/100 leukocytes 0 % 0-10 Blood neutrophils automated count (number/volume) 9.4 10*3 1.8-7.8 Blood lymphocytes automated count (number/volume) 2.3 10*3 1.0-4.0 Blood monocytes automated count (number/volume) 0.8 10*3 0.0-1.0 Automated eosinophil count 0.2 10*3/uL 0.0-0.3 Automated blood basophil count (count/volume) 0.0 10*3/uL 0.0-0.1 Complete blood count (CBC) with automated white blood cell (WBC) differential - 03/11/18 10:17 Blood leukocytes automated count (number/volume) 13.9 10*3/uL 4.3-11.0 Blood erythrocytes automated count (number/volume) 4.14 10*6/uL 4.35-5.85 Venous blood hemoglobin measurement (mass/volume) 12.7 g/dL 11.5-16.0 Blood hematocrit (volume fraction) 39 % 35-52 Automated erythrocyte mean corpuscular volume 94 [foz_us] 80-99 Automated erythrocyte mean corpuscular hemoglobin (mass per erythrocyte) 31 pg 25-34 Automated erythrocyte mean corpuscular hemoglobin concentration measurement ( mass/volume) 33 g/dL 32-36 Automated erythrocyte distribution width ratio 14.8 % 10.0-14.5 Automated blood platelet count (count/volume) 252 10*3/uL 130-400 Automated blood platelet mean volume measurement 11.8 [foz_us] 7.4-10.4 Automated blood neutrophils/100 leukocytes 74 % 42-75 Automated blood lymphocytes/100 leukocytes 17 % 12-44 Blood monocytes/100 leukocytes 7 % 0-12 Automated blood eosinophils/100 leukocytes 2 % 0-10 Automated blood basophils/100 leukocytes 0 % 0-10 Blood neutrophils automated count (number/volume) 10.3 10*3 1.8-7.8 Blood lymphocytes automated count (number/volume) 2.4 10*3 1.0-4.0 Blood monocytes automated count (number/volume) 1.0 10*3 0.0-1.0 Automated eosinophil count 0.3 10*3/uL 0.0-0.3 Automated blood basophil count (count/volume) 0.0 10*3/uL 0.0-0.1 PT panel in platelet poor plasma by coagulation assay - 03/11/18 10:17 Prothrombin time (PT) in platelet poor plasma by coagulation assay 18.7 s 12.2-14.7 INR in platelet poor plasma or blood by coagulation assay 1.6 0.8-1.4 Activated partial thromboplastin time (aPTT) in platelet poor plasma bycoagulation assay - 03/11/18 10:17 Activated partial thromboplastin time (aPTT) in platelet poor plasma bycoagulation assay 35 s 24-35 Comprehensive metabolic panel - 03/11/18 10:17 Serum or plasma sodium measurement (moles/volume) 141 mmol/L 135-145 Serum or plasma potassium measurement (moles/volume) 4.0 mmol/L 3.6-5.0 Serum or plasma chloride measurement (moles/volume) 103 mmol/L 98-107 Carbon dioxide 29 mmol/L 21-32 Serum or plasma anion gap determination (moles/volume) 9 mmol/L 5-14 Serum or plasma urea nitrogen measurement (mass/volume) 13 mg/dL 7-18 Serum or plasma creatinine measurement (mass/volume) 0.77 mg/dL 0.60-1.30 Serum or plasma urea nitrogen/creatinine mass ratio 17 NRG Serum or plasma creatinine measurement with calculation of estimated glomerular filtration rate > NRG Serum or plasma glucose measurement (mass/volume) 120 mg/dL 70-105 Serum or plasma calcium measurement (mass/volume) 9.3 mg/dL 8.5-10.1 Serum or plasma total bilirubin measurement (mass/volume) 0.5 mg/dL 0.1-1.0 Serum or plasma alkaline phosphatase measurement (enzymatic activity/volume) 51 U/L 40-136 Serum or plasma aspartate aminotransferase measurement (enzymatic activity/ volume) 12 U/L 5-34 Serum or plasma alanine aminotransferase measurement (enzymatic activity/volume ) 10 U/L 0-55 Serum or plasma protein measurement (mass/volume) 7.3 g/dL 6.4-8.2 Serum or plasma albumin measurement (mass/volume) 3.5 g/dL 3.2-4.5 Magnesium - 03/11/18 10:17 Magnesium 1.7 mg/dL 1.8-2.4 Serum or plasma troponin i.cardiac measurement (mass/volume) - 03/11/18 10:17 Serum or plasma troponin i.cardiac measurement (mass/volume) < ng/ mL <0.30 Myoglobin, serum - 03/11/18 10:17 Myoglobin, serum 32.3 ng/mL 10.0-92.0 Lipase - 03/11/18 10:17 Lipase 9 U/L 8-78 Serum or plasma C reactive protein measurement (mass/volume) - 03/11/18 10:17 Serum or plasma C reactive protein measurement (mass/volume) 1.77 mg /dL 0.00-0.50 Serum or plasma lithium measurement (moles/volume) - 03/11/18 10:17 BNP level 259.8 pg/mL <100.0 Digoxin - 03/11/18 10:17 Digoxin 0.39 ng/mL 0.80-2.00 Complete urinalysis with reflex to culture - 03/11/18 12:15 Urine color determination YELLOW NRG Urine clarity determination CLEAR NRG Urine pH measurement by test strip 5 5-9 Specific gravity of urine by test strip 1.020 1.016- 1.022 Urine protein assay by test strip, semi-quantitative 3+ NEGATIVE Urine glucose detection by automated test strip NEGATIVE NEGATIVE Erythrocytes detection in urine sediment by light microscopy NEGATIVE NEGATIVE Urine ketones detection by automated test strip NEGATIVE NEGATIVE Urine nitrite detection by test strip NEGATIVE NEGATIVE Urine total bilirubin detection by test strip NEGATIVE NEGATIVE Urine urobilinogen measurement by automated test strip (mass/volume) NORMAL NORMAL Urine leukocyte esterase detection by dipstick NEGATIVE NEGATIVE Automated urine sediment erythrocyte count by microscopy (number/high power field) NONE NRG Automated urine sediment leukocyte count by microscopy (number/high power field ) NONE NRG Bacteria detection in urine sediment by light microscopy NEGATIVE NRG Squamous epithelial cells detection in urine sediment by light microscopy 0-2 NRG Crystals detection in urine sediment by light microscopy NONE NRG Casts detection in urine sediment by light microscopy PRESENT NRG Mucus detection in urine sediment by light microscopy NEGATIVE NRG Complete urinalysis with reflex to culture NO NRG Hyaline casts detection in urine sediment by light microscopy 5-10 NRG Encounters ACCT No. Visit Date/Time Discharge Status Pt. Type Provider Facility Loc./Unit Complaint [id number] 03/11/2018 09:59:00 03/11/2018 12:45:00 DIS Outpatient BRIAN HENDRICKSON MD [facility] ER VOMITING,TROUBLE BREATHING [id number] 03/08/2018 17:40:00 03/08/2018 17:50:00 DIS Emergency YANG RAENAS MD [facility] ER WOUND CARE NO CHARGE [id number] 03/08/2018 09:26:00 03/08/2018 11:30:00 DIS Outpatient YANG ARENAS MD [facility] ER SINUS INFECTION,NOSE BLEEDS,SOB [id number] 02/10/2018 12:48:00 02/10/2018 23:59:59 CLS Outpatient JOSELUIS BORGES BILL CHECKER [facility] RAD ABNORMAL SCREENING [id number] 09/13/2017 21:00:00 09/14/2017 15:45:00 DIS Inpatient DANY ESPINAL DO [facility] ICU CHEST PAIN,CHRONIC ATRIAL FIB [id number] 09/04/2017 11:43:00 09/04/2017 16:40:00 DIS Outpatient ARVIND BOGGS MD [facility] SDC TEMPORAL ARTERITIS/ SEVERE HEADACHE [id number] 08/09/2017 10:23:00 08/09/2017 23:59:59 CLS Outpatient FAITH TURK [facility] RAD R92.8 [id number] 08/08/2017 00:25:00 08/08/2017 23:59:59 CLS Preadmit FAITH TURK [facility] ONC [id number] 05/09/2017 12:00:00 08/07/2017 00:01:00 DIS Outpatient FAITH TURK [facility] ONC [id number] 07/25/2017 17:31:00 07/25/2017 23:59:59 CLS Outpatient KO KENDRICK DO [facility] RAD BACK PAIN [id number] 05/31/2017 06:27:00 05/31/2017 10:05:00 DIS Outpatient YANG VALERA MD [facility] ENDO RECTAL BLEEDING [id number] 05/29/2017 05:34:00 05/29/2017 15:35:00 DIS Outpatient YANG VALERA MD [facility] PREOP COLONOSCOPY [id number] 05/09/2017 15:12:00 05/09/2017 23:59:59 CLS Preadmit FAITH TURK [facility] RAD SCREENING Z12.31 [id number] 05/09/2017 10:38:00 05/09/2017 23:59:59 CLS Preadmit FAITH TURK [facility] ONC [id number] 04/23/2017 14:02:00 04/23/2017 23:59:59 CLS Outpatient ERVIN OSBORNE MD [facility] RAD RT SM,LT RENAL CYST [id number] 04/12/2017 08:15:00 04/12/2017 23:59:59 CLS Outpatient AGATHA ESPINAL BILL CHECKER [facility] RAD ABDOMINAL/PELVIC PAIN [id number] 03/28/2017 10:22:00 03/28/2017 23:59:59 CLS Outpatient JOAOHO FRANCK PAL [facility] RAD DVT [id number] 03/13/2017 06:00:00 03/13/2017 11:25:00 DIS Outpatient FRANCK LARSON DPM [facility] SDC EQUINUS DEFORMITY RLE [id number] 03/06/2017 09:10:00 03/06/2017 10:27:00 DIS Outpatient FRANCK LARSON DPM [facility] PREOP EQUINUS DEFORMITY RLE [id number] 03/05/2017 00:09:00 03/05/2017 11:15:00 DIS Inpatient SANGEETA MARSHALL MD [facility] ICU CHEST PAIN [id number] 02/06/2017 11:50:00 02/06/2017 23:59:59 CLS Outpatient SHEELA BANUELOS MD [facility] CARD AF,CHEST PAIN,HTN,HLP [id number] 08/14/2016 07:46:00 08/14/2016 23:59:59 CLS Outpatient JOSELUIS BORGESP [facility] RAD ABNORMAL SCREENING MAMMO [id number] 08/07/2016 10:57:00 08/07/2016 23:59:59 CLS Outpatient JOSELUIS BORGES BILL CHECKER [facility] RAD SCREENING,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 [id number] 05/28/2016 19:14:00 05/28/2016 21:28:00 DIS Emergency JAYE MENG [employer]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 [facility] ER CHEST PAIN [id number] 05/22/2016 11:13:00 05/22/2016 23:59:59 CLS Outpatient DANY ESPINAL DO [facility] RAD F02.81 [id number] 05/10/2016 12:33:00 05/10/2016 23:59:59 CLS Outpatient JOSELUIS BORGESP [facility] ONC [id number] 03/19/2016 01:26:00 03/22/2016 13:45:00 DIS Inpatient SANGEETA MARSHALL MD [facility] 4TH AMS; SUSPENDED UTI; FEVER [id number] 03/08/2016 21:09:00 03/12/2016 12:07:00 DIS Inpatient JOSE ELIAS NG DO [facility] 4TH SEPSIS,UTI,AMS [id number] 03/08/2016 01:39:00 03/08/2016 03:44:00 DIS Emergency NELLY SMITH DO [facility] ER AMS,UTI,R LEG PAIN [id number] 03/01/2016 12:00:00 03/01/2016 23:59:59 CLS Outpatient DANY ESPINAL DO [facility] HH POSSIBLE UTI [id number] 02/16/2016 14:52:00 02/16/2016 23:59:59 CLS Outpatient TEDDY CHAUHAN DANY Short [facility] UTI, HYPOTHYROIDISM [id number] 01/30/2016 17:30:00 02/02/2016 14:30:00 DIS Inpatient SANGEETA MARSHALL MD [address] UTI,CONFUSION [id number] 01/28/2016 18:13:00 01/28/2016 23:59:59 CLS Outpatient AGATHA ESPINAL [place] GOMEZ [facility] UTI [id number] 11/15/2015 10:07:00 11/15/2015 23:59:59 CLS Outpatient MEGHA PANDA MD [facility] CELLULITIS, VANCO IV [id number] 10/15/2015 15:55:00 10/19/2015 16:30:00 DIS Inpatient MEGHA PANDA MD [address] EXTENSIVE CELLULITIS RT HIP,FEVER,S/P RT HIP IF [id number] 09/15/2015 14:20:00 09/23/2015 14:37:00 DIS Inpatient MEGHA MATIAS MD Via [address] HARDWARE FAILURE [id number] 09/08/2015 13:29:00 09/15/2015 13:30:00 DIS Inpatient VENUS PARTIDA MD [facility] RIGHT HIP FRACTURE, CLOSED [id number] 09/03/2015 18:45:00 09/08/2015 11:15:00 DIS Inpatient MEGHA PANDA MD [facility] 4TH RIGHT HIP FRACTURE, CLOSED [id number] 07/05/2015 10:30:00 07/05/2015 23:59:59 CLS Outpatient MEGHA PANDA MD [facility] DIABETES,CHRONIC DIURETIC USE [id number] 06/24/2015 10:40:00 06/24/2015 23:59:59 CLS Outpatient MEGHA PANDA MD [facility] DM, HYPOPOTASSEMIA [id number] 06/17/2015 12:00:00 06/17/2015 23:59:59 CLS Outpatient MEGHA PANDA MD [facility] HYPONATREMIA [id number] 05/20/2015 14:13:00 06/16/2015 09:42:00 DIS Outpatient RAVEN LEO APRN [facility] REHAB MUSCULOSKELETAL CHEST AND SHOULDER PAIN [id number] 06/14/2015 11:45:00 06/14/2015 14:36:00 DIS Outpatient WILLRAD PARR [facility] CARD AFIB,HTN, SYNCOPE [id number] 06/08/2015 21:25:00 06/10/2015 13:15:00 DIS Inpatient MEGHA PANDA MD [facility] SURGICAL HYPONATREMIA, AMS, WEAKNESS [id number] 05/25/2015 07:00:00 05/27/2015 14:20:00 DIS Inpatient MEGHA PANDA MD [facility] SURGICAL FALL/CONTUSION [id number] 05/18/2015 14:02:00 05/18/2015 23:59:59 CLS Outpatient FAITH TURK [facility] RAD BREAST CA [id number] 05/12/2015 13:11:00 05/12/2015 23:59:59 CLS Outpatient FAITH TURK [facility] ONC [id number] 05/03/2015 13:04:00 05/03/2015 23:59:59 CLS Outpatient ERVIN OSBORNE MD [facility] RAD LEFT RENAL CYST [id number] 04/08/2015 21:00:00 04/09/2015 13:25:00 DIS Inpatient MEGHA PANDA MD [facility] ICU CHEST PAIN [id number] 01/10/2015 10:18:00 01/10/2015 23:59:59 CLS Outpatient SHEELA BANUELOS MD [facility] REHAB LEG AND BACK PAIN [id number] 11/29/2014 09:14:00 11/29/2014 23:59:59 CLS Outpatient MEGHA PANDA MD [facility] RAD F/U CHF [id number] 11/16/2014 10:19:00 11/16/2014 12:59:00 DIS Emergency DANY HOLLIS DO [facility] ER CHEST PAINS [id number] 11/14/2014 15:42:00 11/15/2014 16:15:00 DIS Inpatient MEGHA PANDA MD [facility] ICU CHEST AND SHOULDER PAIN [id number] 11/01/2014 14:09:00 11/01/2014 23:59:59 CLS Outpatient ERVIN OSBORNE MD [facility] RAD LEFT RENAL CYST [id number] 10/28/2014 14:49:00 10/28/2014 23:59:59 CLS Outpatient RAVEN LEO APRN [facility] RAD SOB,BLE PAIN [id number] 10/14/2014 12:15:00 10/14/2014 23:59:59 CLS Outpatient MEGHA PANDA MD [facility] RAD COUGH [id number] 07/18/2014 12:07:00 07/18/2014 23:59:59 CLS Outpatient [id number] 06/03/2014 21:01:00 06/04/2014 07:38:00 DIS Outpatient CORBY SULTANA MD [facility] SLEEP MADELYN [id number] 06/01/2014 15:12:00 06/01/2014 23:59:59 CLS Outpatient FAITH TURK [facility] RAD SCREENING [id number] 05/13/2014 13:29:00 05/13/2014 23:59:59 CLS Outpatient FAITH TURK [facility] ONC [id number] 05/04/2014 13:59:00 05/04/2014 23:59:59 CLS Outpatient ERVIN OSBORNE MD [facility] RAD LEFT RENAL CYST,RAML [id number] 12/16/2013 07:13:00 12/16/2013 10:35:00 DIS Outpatient ARI GASTELUM MD [facility] SDC DYSPHAGIA [id number] 12/09/2013 07:36:00 12/09/2013 23:59:59 CLS Outpatient ARI GASTELUM MD [facility] PREOP DYSPHAGIA [id number] 12/03/2013 13:16:00 12/03/2013 23:59:59 CLS Outpatient BORGES JOSELUIS Marito GOMEZ [facility] RAD SIX MONTH FOLLOW-UP [id number] 11/04/2013 14:02:00 11/04/2013 23:59:59 CLS Outpatient ERVIN OSBORNE MD [facility] RAD LT RENAL CYST [id number] 06/01/2013 14:05:00 06/01/2013 23:59:59 CLS Outpatient FAITH TURK [facility] RAD FOLLOW-UP,HX CA BREAST [id number] 04/28/2013 13:07:00 04/28/2013 23:59:59 CLS Outpatient ERVIN OSBORNE MD [facility] RAD RENAL MASSES [id number] 03/23/2013 14:02:00 03/23/2013 23:59:59 CLS Outpatient MEGHA PANDA MD [facility] LAB [id number] 03/23/2013 13:33:00 03/23/2013 23:59:59 CLS Outpatient FAITH TURK [facility] ONC [id number] 03/14/2018 07:08:00 Document Registration [id number] 04/17/2016 09:14:00 Document Registration [id number] 09/06/2015 17:01:00 Document Registration [id number] 11/29/2014 09:14:00 Document Registration [id number] 01/01/2013 18:45:00 Document Registration [id number] 12/28/2012 17:05:00 Document Registration [id number] 12/01/2012 13:35:00 Document Registration [id number] 11/28/2012 12:10:00 Document Registration [id number] 09/16/2012 19:40:00 Document Registration [id number] 05/13/2012 05:38:00 Document Registration [id number] 05/08/2012 11:44:00 Document Registration [id number] 05/06/2012 12:30:00 Document Registration [id number] 04/29/2012 07:26:00 Document Registration [id number] 04/08/2012 13:03:00 Document Registration [id number] 03/26/2012 15:10:00 Document Registration [id number] 03/24/2012 10:29:00 Document Registration [id number] 12/17/2011 07:36:00 Document Registration [id number] 09/21/2011 21:48:00 Document Registration [id number] 09/06/2011 05:38:00 Document Registration [id number] 09/04/2011 09:37:00 Document Registration [id number] 07/18/2011 08:49:00 Document Registration [id number] 07/11/2011 06:30:00 Document Registration [id number] 04/30/2011 18:01:00 Document Registration [id number] 04/25/2011 13:30:00 Document Registration [id number] 03/12/2011 13:01:00 Document Registration [id number] 03/02/2011 13:14:00 Document Registration [id number] 02/19/2011 12:40:00 Document Registration [id number] 07/07/2010 15:10:00 Document Registration [id number] 04/07/2010 16:16:00 Document Registration [id number] 03/17/2010 15:02:00 Document Registration [id number] 03/07/2010 14:00:00 Document Registration [id number] 03/02/2010 12:39:00 Document Registration [id number] 03/02/2010 12:35:00 Document Registration [id number] 02/23/2010 09:02:00 Document Registration [id number] 02/13/2010 14:39:00 Document Registration [id number] 12/07/2009 10:08:00 Document Registration [id number] 12/07/2009 10:07:00 Document Registration [id number] 10/07/2009 12:26:00 Document Registration [id number] 09/28/2009 10:28:00 Document Registration [id number] 09/21/2009 11:39:00 Document Registration [id number] 08/30/2009 00:00:00 Document Registration [id number] 08/23/2009 13:57:00 Document Registration [id number] 08/17/2009 13:00:00 Document Registration [id number] 08/12/2009 12:31:00 Document Registration [id number] 07/06/2015 08:10:04 ACT Document Registration [id number] 01/03/2018 14:30:00 01/03/2018 23:59:59 CLS Outpatient DARCY HAN APRN [facility]
[2018-03-14] MEDS ORDERED: LACTATED RINGERS 1,000 ML IV PRN ×2 (07:20→07:22)
[2018-03-14] MEDS ORDERED: SCOPOLAMINE 1.5 MG (TRANSDERM-SCOP) PATCH ONE (07:22)
[2018-03-14] MEDS ORDERED: ONDANSETRON 4 MG/2 ML (SDV) Z0FRAN ONE ×2 (07:22→08:12)
[2018-03-14] MEDS ORDERED: FAMOTIDINE 20MG/2ML IV (PEPCID) ONE (07:22)
[2018-03-14] MEDS ORDERED: ONDANSETRON 4 MG/2 ML (SDV) Z0FRAN IV ONE (07:30)
[2018-03-14] MEDS ORDERED: SCOPOLAMINE 1.5 MG (TRANSDERM-SCOP) PATCH TOP ONE (07:30)
[2018-03-14] MEDS ORDERED: FAMOTIDINE 20MG/2ML IV (PEPCID) IV ONE (07:30)
[2018-03-14 07:32] LABS: BASOPHILS % (AUTO) 0 % (0-10); EOSINOPHILS # (AUTO) 0.2 10^3/uL (0.0-0.3); EOSINOPHILS % (AUTO) 1 % (0-10); HEMATOCRIT 38 % (35-52); HEMOGLOBIN 12.2 G/DL (11.5-16.0); LYMPHOCYTES # (AUTO) 1.9 X 10^3 (1.0-4.0); LYMPHOCYTES % (AUTO) 16 % (12-44); MEAN CORPUSCULAR HEMOGLOBIN 30 PG (25-34); MEAN CORPUSCULAR HGB CONC 32 G/DL (32-36); MEAN CORPUSCULAR VOLUME 94 FL (80-99); MEAN PLATELET VOLUME 12.3 FL (7.4-10.4); MONOCYTES # (AUTO) 0.7 X 10^3 (0.0-1.0); MONOCYTES % (AUTO) 6 % (0-12); NEUTROPHILS # (AUTO) 9.4 X 10^3 (1.8-7.8); NEUTROPHILS % (AUTO) 77 % (42-75); PLATELET COUNT 262 10^3/uL (130-400); RED BLOOD COUNT 4.07 10^6/uL (4.35-5.85); RED CELL DISTRIBUTION WIDTH 14.9 % (10.0-14.5); WHITE BLOOD COUNT 12.3 10^3/uL (4.3-11.0)
[2018-03-14] MEDS ORDERED: COCAINE HCL 4% 2 ML SYR ONE (07:41)
[2018-03-14] MEDS ORDERED: LIDOCAINE/EPI 1%-1:200,000 (XYLOCAINE) 10 ML VIAL ONE (07:41)
[2018-03-14] MEDS ORDERED: MUPIROCIN 2% OINT 22 GM (BACTROBAN) TUBE ONE (07:41)
[2018-03-14] MEDS ORDERED: PHENYLEPHRINE 0.5% NASAL SPR (NEO-SYNEPHRINE) REG ONE (07:41)
[2018-03-14] MEDS ORDERED: fentaNYL INJECTION 100 MCG/2 ML AMP ONE (07:44)
[2018-03-14 07:47] LABS: CALCIUM 9.8 MG/DL (8.5-10.1); CREATININE SERUM 1.03 MG/DL (0.60-1.30); POTASSIUM 4.8 MMOL/L (3.6-5.0)
[2018-03-14] MEDS ORDERED: MIDAZOLAM 2 MG/2 ML (VERSED) VIAL ONE (07:50)
[2018-03-14] MEDS ORDERED: SEVOFLURANE (ULTANE) 15 ML INHAL SOLN ONE ×2 (08:11→08:22)
[2018-03-14] MEDS ORDERED: SUCCINYLCHOLINE INJ 100 MG/5 ML SYR ONE (08:12)
[2018-03-14] MEDS ORDERED: proPOfol 200 MG/20 ML (DIPRIVAN) VIAL IV ONE (08:12)
[2018-03-14] MEDS ORDERED: LIDOCAINE PF 2% 5 ML (XYLOCAINE) VIAL ONE (08:12)
[2018-03-14] MEDS ORDERED: D5 1/2 NS W/KCL 20 MEQ/L 1,000 ML IV SCH (08:39)
--- NOTE | 2018-03-14 08:39 | Progress Note-Post Operative ---
Post-Operative Progess Note Surgeon (s)/Grappler (s) Surgeon CORBY SULTANA MD Grappler n/a Pre-Operative Diagnosis Recurrent Right Epistaxis Post-Operative Diagnosis same Post-Op Procedure Note Date of Procedure: Mar 14, 2018 Name of Procedure Performed: Endoscopic REpair of Right Posterior Epistaxis Description & Findings Description and Findings: n/a Anesthesia Type get Estimated Blood Loss minimal Packing none. Specimen(s) collected/removed none CORBY SULTANA MD Mar 14, 2018 8:39 am
[2018-03-14] MEDS ORDERED: ONDANSETRON 4 MG/2 ML (SDV) Z0FRAN IVP PRN (08:45)
[2018-03-14] MEDS ORDERED: PHENYLEPHRINE 0.5% NASAL SPR (NEO-SYNEPHRINE) REG PRN (08:45)
[2018-03-14] MEDS ORDERED: MEPERIDINE (DEMEROL) INJ 50 MG/ML IVP PRN (08:45)
[2018-03-14] MEDS: morphine INJ 10 MG/ML 1ML (SYR OR VIAL) IVP PRN ×2 (09:04→09:18)
[2018-03-14] MEDS ORDERED: ACETAMINOPHEN 325 MG TABLET/CAPLET (TYLENOL) PO PRN (09:30)
[2018-03-14 09:40] VITALS: BP_SYST 168; BP_SYST 180; BP_DIAS 88; BP_DIAS 91
[2018-03-14 10:10] VITALS: BP 168/91
[2018-03-14] MEDS ORDERED: LEVO500T2 PO (10:28)
[2018-03-14 10:40] VITALS: BP 186/97
[2018-03-14 11:30] VITALS: BP 186/97
== END 2018-03-14 11:30 | disposition home or self-care (01) ==
LOC: SDC 06:57
PROVIDERS: ATTEND Otolaryngology Otolaryngology/Facial Plastic Surgery
DX: R04.0 Epistaxis (principal); E11.9 Type 2 diabetes mellitus without complications; I10 Essential (primary) hypertension; I48.91 Unspecified atrial fibrillation; K21.9 Gastro-esophageal reflux disease without esophagitis; Z85.3 Personal history of malignant neoplasm of breast; Z79.01 Long term (current) use of anticoagulants; Z79.4 Long term (current) use of insulin; Z79.899 Other long term (current) drug therapy
CPT/HCPCS: 36415; 80048; 82962; 85025; 87081; 93005

== ENCOUNTER → 2018-03-28 | Outpatient (CLI) | payer MEDICARE, MEDICAID ==
[~2018-03-28] MED LIST changes: +ASPI-983 PO; +CETI10TA20 PO; +CHOL500044 PO; +CLOT15CR6 TOP; +FLUT9.9S NS; +LEVO500T2 PO; +LIDO700A45 TOP; -METF1000 PO; +METF10002 PO; -METF500T4 PO; +METF500T5 PO; +NAPR220C11 PO; +NPB.9O TP; +OXYM30SP70 NS; -PROC10TA PO; +PROC10TA10 PO; -SENN-1 PO; +SENN-145 PO; +SODI14.12 NS; +VITA400C60 PO
--- NOTE | 2018-03-28 09:03 | Diagnostic Imaging Report ---
PROCEDURE: CT sinuses without contrast TECHNIQUE: Multiple contiguous axial images were obtained through the sinuses without the use of intravenous contrast. Coronal and sagittal reformations were then performed. INDICATION: Sinus infection There is rightward bowing of the nasal septum. Ostiomeatal complexes are patent. There is no evidence of mural thickening or fluid within the paranasal sinuses. Atherosclerotic calcification is noted within distal internal carotid arteries, bilaterally. Mastoid air cells appear clear. There are dystrophic calcifications in the tissues anterior to the ears, bilaterally. IMPRESSION: Rightward bowing of nasal septum without CT evidence of sinusitis. Dictated by: Dictated on workstation # [id number]
== END ==
LOC: RAD 08:39
PROVIDERS: ATTEND Internal Medicine
DX: J32.9 Chronic sinusitis, unspecified (principal)
CPT/HCPCS: 70486

== ENCOUNTER 2018-04-21 08:16 | Observation (INO) | payer MEDICARE, MEDICAID ==
[~2018-04-21] VITALS: Ht 175.3 cm; Wt 103.0 kg
[~2018-04-21 08:16] MED LIST changes: -ASPI-983 PO; -CETI10TA20 PO; -CHOL500044 PO; -CLOT15CR6 TOP; -FLUT9.9S NS; -LIDO700A45 TOP; -NAPR220C11 PO; -NPB.9O TP; -OXYM30SP70 NS; -SODI14.12 NS; -VITA400C60 PO
--- OUTSIDE RECORDS SUMMARY | 2018-04-21 08:21 | XMS REPORT | Clinical Summary ---
Author Author [facility] Organization [facility] Address Unknown Phone Unavailable Care Team Providers Care Snorkelling Instructor Name Role Phone Darien Salguero MD Unavailable Source Comments Some departments are not documenting in the electronic medical record. If you do not see the information that you expected, contact Release of Information in the Health Information Management department at [phone] for further assistance in locating additional records.[place] [...] results. -- F/U with Dr. Sethi in [place] for further urological issues (already has an [...] SCREENING SHINGLES VACCINE 2004 OSTEOPOROSIS SCREENING 2009 PNEUMONIA (PCV13/PPSV23) 2009 VACCINES (1 of 2 - PCV13) INFLUENZA VACCINE 08/25/2018 Results Not on filefrom Last 3 Months
[2018-04-21] MEDS ORDERED: NITROGLYCERIN 0.4 MG SL TABS BTL 25'S SL PRN ×2 (08:30→13:30)
[2018-04-21] MEDS ORDERED: ASPIRIN 81 MG CHEW (CHILDREN'S ASA) PO ONE (08:30)
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
[2018-04-21] MEDS ORDERED: ONDANSETRON 4 MG/2 ML (SDV) Z0FRAN IVP ONE (08:45)
[2018-04-21 08:58] LABS: BASOPHILS % (AUTO) 0 % (0-10); EOSINOPHILS # (AUTO) 0.2 10^3/uL (0.0-0.3); EOSINOPHILS % (AUTO) 2 % (0-10); HEMATOCRIT 36 % (35-52); HEMOGLOBIN 11.4 G/DL (11.5-16.0); LYMPHOCYTES # (AUTO) 1.7 X 10^3 (1.0-4.0); LYMPHOCYTES % (AUTO) 12 % (12-44); MEAN CORPUSCULAR HEMOGLOBIN 30 PG (25-34); MEAN CORPUSCULAR HGB CONC 32 G/DL (32-36); MEAN CORPUSCULAR VOLUME 93 FL (80-99); MEAN PLATELET VOLUME 12.3 FL (7.4-10.4); MONOCYTES # (AUTO) 0.7 X 10^3 (0.0-1.0); MONOCYTES % (AUTO) 5 % (0-12); NEUTROPHILS # (AUTO) 11.3 X 10^3 (1.8-7.8); NEUTROPHILS % (AUTO) 81 % (42-75); PLATELET COUNT 241 10^3/uL (130-400); RED BLOOD COUNT 3.81 10^6/uL (4.35-5.85); RED CELL DISTRIBUTION WIDTH 15.1 % (10.0-14.5); WHITE BLOOD COUNT 13.9 10^3/uL (4.3-11.0)
[2018-04-21 09:06] LABS: INR 1.6 (0.8-1.4); PROTHROMBIN TIME PATIENT 19.5 SEC (12.2-14.7)
--- NOTE | 2018-04-21 09:08 | Diagnostic Imaging Report ---
EXAMINATION: Chest radiograph, portable AP view. DATE: April 21, 2018 at 0855 hours. INDICATION: 72-year-old female, chest pain and shortness of breath. COMPARISON: 03/16/2018. FINDINGS: Stable overall appearance of the cardiomediastinal silhouette. There is no identified pneumothorax. There is no large pleural effusion. There are mildly prominent interstitial markings which appear unchanged since comparison exam. This is unchanged since at least 09/13/2017. There is no identified interval focal airspace consolidation. There is a redemonstrated fracture deformity of the right proximal humerus. IMPRESSION: 1. No identified interval acute cardiopulmonary abnormality. 2. Redemonstrated fracture deformity of the right proximal humerus. Dictated by: Dictated on workstation # [id number]
[2018-04-21 09:10] LABS: BILIRUBIN,URINE NEGATIVE (NEGATIVE); CLARITY,URINE CLEAR; COLOR,URINE YELLOW; GLUCOSE, URINE (UA) 2+ (NEGATIVE); KETONES,URINE NEGATIVE (NEGATIVE); LEUKOCYTE ESTERASE ,URINE NEGATIVE (NEGATIVE); NITRITE,URINE NEGATIVE (NEGATIVE); PH,URINE 8 (5-9); PROTEIN,URINE 3+ (NEGATIVE); UROBILINOGEN,URINE NORMAL (NORMAL)
[2018-04-21 09:17] LABS: ALANINE AMINOTRANSFERASE 12 U/L (0-55); ALBUMIN 3.5 GM/DL (3.2-4.5); ALKALINE PHOSPHATASE 54 U/L (40-136); BILIRUBIN,TOTAL 0.5 MG/DL (0.1-1.0); BUN/CREATININE RATIO 17; CALCIUM 9.5 MG/DL (8.5-10.1); CARBON DIOXIDE 24 MMOL/L (21-32); CHLORIDE 103 MMOL/L (98-107); CREATININE SERUM 0.81 MG/DL (0.60-1.30); GFR ESTIMATED > 60; GLUCOSE 283 MG/DL (70-105); LIPASE 11 U/L (8-78); POTASSIUM 4.2 MMOL/L (3.6-5.0); SODIUM 139 MMOL/L (135-145); TOTAL PROTEIN 7.3 GM/DL (6.4-8.2)
[2018-04-21 09:25] LABS: MYOGLOBIN SERUM 37.5 NG/ML (10.0-92.0)
[2018-04-21 09:29] LABS: BACTERIA,URINE NEGATIVE /HPF
--- OUTSIDE RECORDS SUMMARY | 2018-04-21 11:01 | XMS REPORT | Clinical Summary ---
Author Author [facility] Organization [facility] Address Unknown Phone Unavailable Care Team Providers Care Corporate Legal Intern Name Role Phone Darien Salguero MD Unavailable Source Comments Some departments are not documenting in the electronic medical record. If you do not see the information that you expected, contact Release of Information in the Health Information Management department at [phone] for further assistance in locating additional records.[facility] Allergies Active Allergy Reactions Severity Noted Date [...] results. -- F/U with Dr. Sethi in [place] for further urological issues (already has an [...]
[2018-04-21] MEDS ORDERED: ASPI-983 PO (12:14)
[2018-04-21] MEDS ORDERED: FLUT9.9S NS (12:32)
[2018-04-21] MEDS ORDERED: CLON0.1T PO ×2 (12:32)
[2018-04-21] MEDS ORDERED: GABA-486 PO (12:35)
--- NOTE | 2018-04-21 12:38 | Consultation-Cardiology ---
HPI-Cardiology Cardiology Consultation: Date of Consultation 04/21/18 Time Seen by Provider: 12:10 Date of Admission Attending Physician Zak Mckeon MD Admitting Physician Lb Christine DO Consulting Physician SAVANNAH BLACKWELL MD, MA, FACP, FACC, FSCAI, CCDS Primary junior underwriter: Dr Pavno HPI: Chief Complaint: CC: Chest discomfort 72 yo woman with chest discomfort: L parasternal and lower mid sternal, present for 3 days, continuous, varies but unresolved, worse today, mod in intensity, radiating to mid back, perceived as pressure, not associated with other symptoms , w/o aggravating or relieving factors Chronic exertional shortness of breath, worse lately Chronic bilat leg swelling, worse over last several days No fever or chills No palp or syncope Review of Systems-Cardiology Review of Systems Constitutional: malaise, tiredness; No weight loss, No weight gain Eyes: No vision change Ears/Nose/Throat: No ear discharge, No recent hearing loss Respiratory: As described under HPI Cardiovascular: As described under HPI Gastrointestinal: No diarrhea, No nausea, No vomiting Genitourinary: No dysuria Musculoskeletal: back pain (chronic), joint pain (chronic) Skin: No rash Psychiatric/Neurological: No seizure, No focal weakness, No syncope Hematologic: No bleeding abnormalities [id number] Hx Patient Social History Alcohol Use: Denies Use Recreational Drug Use: No Smoking Status: Never a Smoker 2nd Hand Smoke Exposure: No Recent Foreign Travel: No Recent Infectious Disease Expo: No Hospitalization with Isolation: Denies Immunizations Up To Date Tetanus Booster (TDap): Unknown Date of Pneumonia Vaccine: Sep 05, 2012 Date of Influenza Vaccine: Sep 03, 2017 Past Medical History PMH As described under Assessment. Family Medical History Family History: BULBAR POLIO G8 BROTHER Diabetes mellitus G8 BROTHER UNCLE FH: cancer G8 BROTHER FH: kidney cancer G8 SISTER Allergies and Home Medications Allergies Coded Allergies: Penicillins (Verified Allergy, Mild, 03/06/17) codeine (Verified Allergy, Mild, PT TAKES HYDROCODONE AT HOME, 03/06/17) nitrofurantoin (Verified Allergy, Mild, RASH, 03/06/17) ITCHING/RASH pregabalin (Verified Allergy, Unknown, 03/13/18) sulfur dioxide (Verified Allergy, Unknown, 03/06/17) Home Medications Aspirin 81 Mg Tablet., 81 MG PO DAILY Prescribed by: JANNIE GUARDADO on 04/21/18 1214 Buspirone HCl 15 Mg Tablet, 15 MG PO TID, (Reported) Carvedilol 25 Mg Tablet, 25 MG PO BID, (Reported) Cholecalciferol (Vitamin D3) 5,000 Unit Capsule, 5,000 UNIT PO DAILY, (Reported) Clonidine HCl 0.1 Mg Tablet, 0.1 MG PO BID CLONIDINE 0.1 MG TAB PO BID (AM AND HS) AND MAY TAKE ON ADDITIONAL TAB AT NOON IF B/P >150/90 Prescribed by: JANNIE GUARDADO on 04/21/18 1232 Clonidine HCl 0.1 Mg Tablet, 0.1 MG PO PRN PRN for BLOOD PRESSURE MAY AT ONE TAB PRN AT NOON IF B/P >150/90 IF NEEDED Prescribed by: JANNIE GUARDADO on 04/21/18 1232 Cyanocobalamin 1,000 Mcg/Ml Inj, 1,000 MCG IJ WEEK, (Reported) RECEIVES ON SATURDAYS Digoxin 125 Mcg Tablet, 0.125 MCG PO DAILY, (Reported) IF HEART RATE IS > 60 Famotidine 20 Mg Tablet, 20 MG PO DAILY, (Reported) Fluticasone Propionate 9.9 Ml [place].susp, 2 SPRAY NS DAILY 2 SPRAYS PER NOSTRIL DAILY Prescribed by: JANNIE GUARDADO on 04/21/18 1232 Furosemide 40 Mg Tablet, 40 MG PO DAILY, (Reported) Hydrocodone/Acetaminophen 1 Each Tablet, 1 TAB PO Q6H PRN for PAIN, (Reported) Insulin Aspart 300 Units/3 Ml Solution, SC SLIDING/SCALE, (Reported) 70-140 = 0 UNITS 141-180= 2 UNITS 181-220= 4 UNITS 221-260= 6 UNITS 261-300= 8 UNITS 301-340=10 UNITS 341-380=12 UNITS 381-400=14 UNITS ABOVE 4000 CALL Insulin Detemir 100 Unit/1 Ml Insuln.pen, 26 UNITS SC DAILY, (Reported) Linagliptin 5 Mg Tablet, 5 MG PO DAILY, (Reported) Lisinopril 40 Mg Tablet, 40 MG PO DAILY, (Reported) Magnesium Oxide 400 Mg Tablet, 400 MG PO 1200, (Reported) Metformin HCl 500 Mg Tablet, 500 MG PO BID, (Reported) Nystatin 500,000 Unit Tablet, 500,000 UNIT PO TID, (Reported) Ondansetron 4 Mg Tab.rapdis, 4 MG SL Q4H PRN for NAUSEA/VOMITING-1ST LINE Prescribed by: BRIAN HERBERT on 03/11/18 1240 Oxcarbazepine 300 Mg Tablet, 300 MG PO DAILY, (Reported) Potassium Chloride 10 Meq Tablet.er, 10 MEQ PO DAILY, (Reported) Trospium Chloride 20 Mg Tablet, 20 MG PO BID, (Reported) Patient Home Medication List Home Medication List Reviewed: Yes Physical Exam-Cardiology Physical Exam Vital Signs/I&O 04/21/18 04/21/18 04/21/18 08:16 08:18 11:09 Temp 98.2 98.2 Pulse 73 73 Resp 20 20 B/P (MAP) 180/95 (123) 180/95 (123) Pulse Ox 97 97 97 O2 Delivery Room Air Room Air Capillary Refill : Less Than 3 Seconds Constitutional: AAO x 3, well-developed, well-nourished HEENT: PERRL, EOMI; No xanthelasmas are seen Neck: carotid pulses are 2 + bilaterally Respiratory: No accessory muscle use; other (Fair to good bilat air entry) Cardiovascular: irregularly irregular, S1 and S2, systolic murmur (2-3/6 MSM) Gastrointestinal: No tender; soft; No guarding, No rebound; audible bowel sounds Extremities: No clubbing, No cyanosis, No significant edema (2+ leg edema on L ; 3+ leg edema on R) Neurologic/Psychiatric: oriented x 3, grossly intact, power is 5/5 both on sides Skin: No rash on exposed areas, No ulcerations on exposed areas Data Review Labs Laboratory Tests 04/21/18 08:50: White Blood Count 13.9H, Red Blood Count 3.81L, Hemoglobin 11.4L, Hematocrit 36 , Mean Corpuscular Volume 93, Mean Corpuscular Hemoglobin 30, Mean Corpuscular Hemoglobin Concent 32, Red Cell Distribution Width 15.1H, Platelet Count 241, Mean Platelet Volume 12.3H, Neutrophils (%) (Auto) 81H, Lymphocytes (%) (Auto) 12, Monocytes (%) (Auto) 5, Eosinophils (%) (Auto) 2, Basophils (%) (Auto) 0, Neutrophils # (Auto) 11.3H, Lymphocytes # (Auto) 1.7, Monocytes # (Auto) 0.7, Eosinophils # (Auto) 0.2, Basophils # (Auto) 0.0, Prothrombin Time 19.5H, INR Comment 1.6H, Activated Partial Thromboplast Time 33, Sodium Level 139, Potassium Level 4.2, Chloride Level 103, Carbon Dioxide Level 24, Anion Gap 12, Blood Urea Nitrogen 14, Creatinine 0.81, Estimat Glomerular Filtration Rate > 60 , BUN/Creatinine Ratio 17, Glucose Level 283H, Calcium Level 9.5, Magnesium Level 2.0, Total Bilirubin 0.5, Aspartate Amino Transf (AST/SGOT) 17, Alanine Aminotransferase (ALT/SGPT) 12, Alkaline Phosphatase 54, Myoglobin 37.5, Troponin I < 0.30, B-Type Natriuretic Peptide 417.9H, Total Protein 7.3, Albumin 3.5, Lipase 11 04/21/18 08:58: Urine Color YELLOW, Urine Clarity CLEAR, Urine pH 8, Urine Specific [place] 1.010L, Urine Protein 3+H, Urine Glucose (UA) 2+H, Urine Ketones NEGATIVE, Urine Nitrite NEGATIVE, Urine Bilirubin NEGATIVE, Urine Urobilinogen NORMAL, Urine Leukocyte Esterase NEGATIVE, Urine RBC (Auto) NEGATIVE, Urine RBC NONE, Urine WBC NONE, Urine Squamous Epithelial Cells NONE, Urine Crystals NONE, Urine Bacteria NEGATIVE, Urine Casts NONE, Urine Mucus NEGATIVE, Urine Culture Indicated NO Laboratory Tests 04/21/18 08:50 A/P-Cardiology Assessment/Admission Diagnosis Chest discomfort w/o any evidence of ACS Probable acute diastolic CHF, as suggested by shortness of breath, elevated BNP and increasing ankle swelling Mild CAD on card caths of 2010 and 2013 Relatively remote syncope for which she has undergone a w/u with Dr Pavon and specific cause found. Patient underwent cardiac catheterization in 2013 revealing nonobstructive disease. Tilt table test negative, 2-D echocardiogram revealed normal EF. No recent episodes Chronic A Fib with good rate control; stroke prophylaxis with Xarelto Patent hawkins ovale, 1.1 cm with [id number] shunt per 2-D echocardiogram 2014 Pulmonary hypertension-pulmonary artery pressure 50 mmHg per 2-D echocardiogram January 2017. Possibly due to COPD. Monitored by Dr Pavon Chronic DVT to lower extremity- maintained on Xarelto. Hypertension, not well controlled Hyperlipidemia, managed by Dr Pavon Mild bilateral carotid stenosis, last ultrasound was done in June 2016 H/o mild to moderate mitral regurgitation and mild tricuspid regurgitation Obesity, BMI currently 30. Reports 130 lbs wgt loss in [id number]. This is being managed by Dr Christine, her pcp Essential tremor, chronic Diabetes mellitus, managed by Dr. Romero. History of renal cysts, has been followed by Dr. Sethi. History of breast cancer, followed and managed by Dr. Fernández. H/o Bipolar disorder H/o Mnires disease H/o anxiety and depression, currently controlled Discussion and Recomendations * She had multiple comorbidities that are outlined above * Continue OAC (Xarelto) * iv diuretics to treat bilat leg swelling and suspected ac brunson CHF * Adjust treatment for hypertension as needed and as tolerated * Monitor labs * I spoke with her in detail and answered questions SAVANNAH BLACKWELL MD FACP FAC CCDS April 21, 2018 12:38
[2018-04-21] MEDS ORDERED: cloNIDine 0.1 MG (CATAPRES) TAB PO SCH ×2 (13:00→21:00)
[2018-04-21] MEDS ORDERED: FUROSEMIDE 40 MG/4 ML INJ (LASIX) IVP NR (13:05)
[2018-04-21] MEDS ORDERED: ACETAMINOPHEN 500 MG TAB (TYLENOL) PO PRN (13:15)
[2018-04-21] MEDS ORDERED: ONDANSETRON 4 MG/2 ML (SDV) Z0FRAN IVP PRN (13:15)
[2018-04-21] MEDS ORDERED: morphine INJ 4 MG/ML 1 ML (VIAL/SYRINGE) IVP PRN (13:30)
[2018-04-21] MEDS: fentaNYL INJECTION 100 MCG/2 ML AMP IVP PRN ×3 (13:42→19:13)
[2018-04-21] MEDS: 1/2 NS W/KCL 20 MEQ/L 1,000 ML IV SCH ×2 (13:59→22:18)
[2018-04-21] MEDS ORDERED: PATIENT MAY USE OWN MEDS, ALL MC SCH (14:15)
[2018-04-21] MEDS ORDERED: RT-ALBUTEROL SULF 2.5 MG/3 ML PRE-MIX VIAL INH PRN (15:45)
[2018-04-21 15:49] VITALS: BP 168/72
[2018-04-21 16:00] VITALS: BP 168/72
[2018-04-21] MEDS: inSUlin ASPART (NovoLOG) 1 UNIT/0.01 ML (CHARGE PER UNIT) SC SCH ×2 (16:08→21:58)
[2018-04-21] MEDS ORDERED: RIVAROXABAN 20 MG TABLET (XARELTO) PO SCH (17:00)
[2018-04-21] MEDS ORDERED: GABAPENTIN 100 MG (NEURONTIN) CAP ONE ×2 (18:29→19:53)
[2018-04-21] MEDS ORDERED: HYDROcodone/APAP 7.5 MG/325 MG (LORTAB, LORCET PLUS) TABLET PO ONE (18:30)
[2018-04-21] MEDS: HYDROcodone/APAP 7.5 MG/325 MG (LORTAB, LORCET PLUS) TABLET PO PRN (18:37)
[2018-04-21] MEDS: GABAPENTIN 100 MG (NEURONTIN) CAP PO SCH ×2 (18:37→21:58)
[2018-04-21 19:30] VITALS: BP_SYST 168; BP_SYST 182; BP_DIAS 72; BP_DIAS 80
[2018-04-21] MEDS ORDERED: busPIRone 10 MG (BUSPAR) TAB ONE (19:53)
[2018-04-21] MEDS ORDERED: metFORMIN 500 MG (GLUCOPHAGE) TAB ONE (19:54)
[2018-04-21] MEDS ORDERED: CARVEDILOL 25MG TABLET PO SCH (21:00)
[2018-04-21] MEDS ORDERED: NYSTATIN 500000 UNIT PO SCH (21:00)
[2018-04-21] MEDS ORDERED: TROSPIUM 20 MG (SANCTURA) TAB PO SCH (21:00)
[2018-04-21] MEDS ORDERED: NON-FORMULARY MEDICATION 1 EA EA (Metformin HCl 500 MG) PO SCH (21:00)
[2018-04-21] MEDS ORDERED: busPIRone 15 MG (BUSPAR) TABLET PO SCH (21:00)
[2018-04-21] MEDS ORDERED: TROSPIUM 20 MG (SANCTURA) TAB PO ONE (21:23)
[2018-04-21] MEDS: SALINE NASAL SPRAY (OCEAN) 45 ML BTL SCH (21:36)
[2018-04-22] VITALS: BP 178/82
[2018-04-22] MEDS ORDERED: HYDROcodone/APAP 7.5 MG/325 MG (LORTAB, LORCET PLUS) TABLET PO ONE (02:44)
[2018-04-22] MEDS: HYDROcodone/APAP 7.5 MG/325 MG (LORTAB, LORCET PLUS) TABLET PO PRN ×2 (02:50→10:22)
[2018-04-22 04:00] VITALS: BP 182/81
[2018-04-22 05:28] LABS: BASOPHILS % (AUTO) 0 % (0-10); EOSINOPHILS # (AUTO) 0.3 10^3/uL (0.0-0.3); EOSINOPHILS % (AUTO) 2 % (0-10); HEMATOCRIT 35 % (35-52); HEMOGLOBIN 11.4 G/DL (11.5-16.0); LYMPHOCYTES # (AUTO) 2.3 X 10^3 (1.0-4.0); LYMPHOCYTES % (AUTO) 18 % (12-44); MEAN CORPUSCULAR HEMOGLOBIN 30 PG (25-34); MEAN CORPUSCULAR HGB CONC 32 G/DL (32-36); MEAN CORPUSCULAR VOLUME 93 FL (80-99); MEAN PLATELET VOLUME 11.6 FL (7.4-10.4); MONOCYTES # (AUTO) 0.7 X 10^3 (0.0-1.0); MONOCYTES % (AUTO) 6 % (0-12); NEUTROPHILS # (AUTO) 9.6 X 10^3 (1.8-7.8); NEUTROPHILS % (AUTO) 74 % (42-75); PLATELET COUNT 223 10^3/uL (130-400); RED BLOOD COUNT 3.77 10^6/uL (4.35-5.85); RED CELL DISTRIBUTION WIDTH 15.1 % (10.0-14.5); WHITE BLOOD COUNT 12.9 10^3/uL (4.3-11.0)
[2018-04-22 05:47] LABS: BUN/CREATININE RATIO 16; CARBON DIOXIDE 23 MMOL/L (21-32); CHLORIDE 105 MMOL/L (98-107); CHOLESTEROL 153 MG/DL (< 200); CREATININE SERUM 0.75 MG/DL (0.60-1.30); GFR ESTIMATED > 60; GLUCOSE 189 MG/DL (70-105); HDL CHOLESTEROL 53 MG/DL (40-60); POTASSIUM 4.4 MMOL/L (3.6-5.0); SODIUM 139 MMOL/L (135-145); TRIGLYCERIDES 97 MG/DL (<150); VLDL CHOLESTEROL 19 MG/DL (5-40)
[2018-04-22] MEDS: inSUlin ASPART (NovoLOG) 1 UNIT/0.01 ML (CHARGE PER UNIT) SC SCH ×2 (06:46→11:59)
[2018-04-22] MEDS ORDERED: KCL 10 MEQ TAB (MICRO K) PO SCH ×2 (07:00→09:00)
[2018-04-22 08:00] VITALS: BP 219/95
--- NOTE | 2018-04-22 08:20 | Cardiology Progress Note ---
Subjective Date Seen by Provider: April 22, 2018 Time Seen by Provider: 08:15 Subjective/Events-last exam Patient was seen and evaluated, event since admission were reviewed. Patient reported improvement in the chest pain and shortness of breath, still having some pedal edema on the right side, reported significant pain and discomfort in her right lower extremity, reporting improvement at this time. Review of Systems General: No Chills, No Night Sweats, No Fatigue, No Malaise, No Appetite, No Other HEENT: No Head Aches, No Visual Changes, No Eye Pain, No Ear Pain, No Dysphasia , No Sinus Congestion, No Post Nasal Drip, No Sore Throat, No Other Pulmonary: No Dyspnea, No Cough, No Pleuritic Chest Pain, No Other Cardiovascular: Edema (RLE); No: Chest Pain, Palpitations, Orthopnea, Paroxysmal Noc. Dyspnea, Lt Headedness, Other Objective-Cardiology Exam Last Set of Vital Signs Vital Signs 04/21/18 04/22/18 04/22/18 04/22/18 15:27 04:00 07:00 07:13 Temp 98.9 Pulse 62 Resp 16 B/P (MAP) 182/81 (114) Pulse Ox 97 O2 Delivery Room Air FiO2 21 Capillary Refill : Less Than 3 Seconds I&O Intake and Output 04/22/18 00:00 Intake Total 350 ml Output Total 1700 ml Balance -1350 ml Intake Oral 350 ml Output Urine Total 1700 ml Daily Weight Change Unsure General: Alert, Oriented X3, Cooperative HEENT: Atraumatic, PERRLA Neck: Supple, No JVD, No Thyromegaly Lungs: Clear to Auscultation, Normal Air Movement Heart: Normal S1, Normal S2, No Murmurs, Other (a fib) Abdomen: Normal Bowel Sounds, Soft, No Tenderness, No Hepatosplenomegaly, No Masses Extremities: No Clubbing, No Cyanosis, Normal Pulses, No Tenderness/Swelling, Other (RLE edema) Skin: No Rashes, No Breakdown, No Significant Lesion Neuro: Normal Gait, Normal Speech, Strength at 5/5 X4 Ext, Normal Tone, Sensation Intact Psych/Mental Status: Mental Status NL, Mood NL Results Lab Laboratory Tests 04/21/18 08:50 04/22/18 05:10 A/P-Cardiology Admission Diagnosis Chest pain Shortness of breath DVT Hypertension Assessment/Plan Chest pain, atypical in presentation. No EKG changes, cardiac enzymes were negative Shortness of breath, mild elevation in BNP, pedal edema more pronounced on the right. Although patient has been on Xarelto, I will evaluate ultrasound to the right lower extremity Mild CAD on card caths of 2010 and 2013 Relatively remote syncope for which she has undergone a w/u with Dr Pavon and specific cause was not found. Patient underwent cardiac catheterization in 2013 revealing nonobstructive disease. Tilt table test negative, 2-D echocardiogram revealed normal EF. No recent episodes Chronic A Fib with good rate control; stroke prophylaxis with Xarelto Patent [place]kins [place], 1.1 cm with [id number] shunt per 2-D echocardiogram 2014 Pulmonary hypertension-pulmonary artery pressure 50 mmHg per 2-D echocardiogram January 2017. Possibly due to COPD. continue to monitor Chronic DVT to lower extremity- maintained on Xarelto, having worsening pain at this time, reevaluate ultrasound Hypertension, not well controlled, restart home medication, has been on lisinopril, Coreg and clonidine which will be restarted Hyperlipidemia, continue home medications Mild bilateral carotid stenosis, last ultrasound was done in June 2016 H/o mild to moderate mitral regurgitation and mild tricuspid regurgitation Obesity, BMI currently 30. Reports 130 lbs wgt loss in [id number]. This is being managed by Dr Christine, her pcp Essential tremor, chronic Diabetes mellitus, managed by Dr. Romero. History of renal cysts, has been followed by Dr. Sethi. History of breast cancer, followed and managed by Dr. Fernández. H/o Bipolar disorder H/o Mnires disease H/o anxiety and depression, currently controlled Clinical Quality Measures DVT/VTE Risk/Contraindication: Risk Factor Score Per Nursin RFS Level Per Nursing on Admit: 4+=Very High SHEELA PAVON MD April 22, 2018 08:20
[2018-04-22] MEDS ORDERED: cloNIDine 0.1 MG (CATAPRES) TAB PO PRN (08:45)
[2018-04-22] MEDS ORDERED: LISINOPRIL 40 MG PO SCH (09:00)
[2018-04-22] MEDS ORDERED: FUROSEMIDE 40 MG/4 ML INJ (LASIX) IVP SCH (09:00)
[2018-04-22] MEDS ORDERED: CARVEDILOL 25 MG PO SCH (09:00)
[2018-04-22] MEDS ORDERED: lisINopril 40 MG (PRINIVIL) TABLET PO SCH (09:00)
[2018-04-22] MEDS ORDERED: FUROSEMIDE 40 MG (LASIX) TAB PO SCH (09:00)
[2018-04-22] MEDS ORDERED: inSUlin DETERMIR 1 UNIT/0.01 ML (LEVEMIR) CHARGE PER UNIT SQ SCH ×2 (09:00)
[2018-04-22] MEDS ORDERED: TROSPIUM 20 MG (SANCTURA) TAB PO SCH (09:00)
[2018-04-22] MEDS ORDERED: VITAMIN D3 5,000 UNITS (CHOLECALCIFEROL ) CAPSULE PO SCH (09:00)
[2018-04-22] MEDS ORDERED: DIGOXIN 0.125 MG (LANOXIN) TAB PO SCH ×2 (09:00)
[2018-04-22] MEDS ORDERED: cloNIDine 0.1 MG (CATAPRES) TAB PO SCH (09:00)
[2018-04-22] MEDS ORDERED: LINAGLIPTIN (TRADJENTA) 5 MG TABLET PO SCH (09:00)
[2018-04-22] MEDS ORDERED: OXcarbazepine (TRILEPTAL) 300 MG TAB PO SCH ×2 (09:00)
[2018-04-22] MEDS ORDERED: FAMOTIDINE 20 MG (PEPCID) TABLET PO SCH ×2 (09:00)
[2018-04-22] MEDS ORDERED: ASPIRIN E.C. 81 MG (ECOTRIN) TAB PO SCH ×2 (09:00)
--- NOTE | 2018-04-22 09:26 | Diagnostic Imaging Report ---
PROCEDURE: US right lower extremity venous. TECHNIQUE: Multiple real-time grayscale images were obtained over the right lower extremity in various projections. Additional duplex Doppler and color Doppler images were also obtained. INDICATION: Right lower extremity pain and swelling. FINDINGS: There is normal color flow enhancement from the external iliac vein throughout the right lower extremity to the ankle. Calf compression shows normal augmentation of flow at the popliteal level with normal waveforms. No evidence of popliteal cyst. IMPRESSION: Negative right lower extremity for venous thrombosis. Dictated by: Dictated on workstation # [id number]
[2018-04-22] MEDS ORDERED: ONDANSETRON 4 MG (ZOFRAN) ORAL DISSOLVE TAB PO PRN (09:30)
[2018-04-22] MEDS: GABAPENTIN 100 MG (NEURONTIN) CAP PO SCH ×2 (09:52→12:01)
[2018-04-22] MEDS: busPIRone 15 MG (BUSPAR) TABLET PO SCH ×2 (09:52→12:01)
[2018-04-22] MEDS: SALINE NASAL SPRAY (OCEAN) 45 ML BTL SCH (09:57)
[2018-04-22] MEDS: SALINE NASAL SPRAY SCH ×2 (10:21→12:01)
[2018-04-22] MEDS: 1/2 NS W/KCL 20 MEQ/L 1,000 ML IV SCH (10:21)
[2018-04-22] MEDS: NYSTATIN ORAL SUSP 5 ML UDC PO SCH ×2 (10:21→12:01)
[2018-04-22] MEDS ORDERED: RIVA20TA PO (11:19)
[2018-04-22] MEDS ORDERED: VITA400C60 PO (11:19)
[2018-04-22] MEDS ORDERED: SODI14.12 NS (11:19)
[2018-04-22] MEDS ORDERED: OXYM30SP70 NS (11:19)
[2018-04-22] MEDS ORDERED: NAPR220C11 PO (11:19)
[2018-04-22] MEDS ORDERED: LIDO700A45 TOP (11:19)
[2018-04-22] MEDS ORDERED: CLOT15CR6 TOP (11:19)
[2018-04-22] MEDS ORDERED: CETI10TA20 PO (11:19)
[2018-04-22] MEDS ORDERED: NPB.9O TP (11:19)
[2018-04-22] MEDS ORDERED: CHOL500044 PO (11:24)
[2018-04-22 12:00] VITALS: BP 180/82
[2018-04-22] MEDS ORDERED: MAGNESIUM PO SCH (12:00)
--- NOTE | 2018-04-22 12:18 | Discharge Inst-Simple/Standard ---
Discharge Inst-Standard Discharge Medications New, Converted or Re-Newed RX: Other Patient Instructions/Follow Up Plan of Care/Instructions/FU: Please continue to take your medications as written and follow up with you PCP Dr Christine and Dr Pavon as scheduled. Activity as Tolerated: Yes Discharge Diet: ADA Diet, Cardiac Diet Return to The Hospital For: Chest pain, shortness of breath, if you feel you are getting worse. ILENE GORMAN MD April 22, 2018 12:18 pm
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
[2018-04-22 14:36] VITALS: BP 180/82
[2018-04-22] MEDS ORDERED: metFORMIN 500 MG (GLUCOPHAGE) TAB PO SCH (17:00)
--- OUTSIDE RECORDS SUMMARY | 2018-04-24 17:12 | XMS REPORT | Clinical Summary ---
Author Author [facility] Organization [facility] Address Unknown Phone Unavailable Care Team Providers Care Loader Operator/Ground Leader Name Role Phone Darien Salguero MD Unavailable Source Comments Some departments are not documenting in the electronic medical record. If you do not see the information that you expected, contact Release of Information in the Health Information Management department at [phone] for further assistance in locating additional records.[facility] Allergies Active Allergy Reactions Severity Noted [...] results. -- F/U with Dr. Sethi in [place] for further urological issues (already has an [...]
--- OUTSIDE RECORDS SUMMARY | 2018-04-24 17:30 | XMS REPORT | Continuity of Care Document ---
Author Author [facility] Organization [facility] Address Unknown Phone Unavailable Allergies Active Description Code Type Severity Reaction Onset Reported/Identified Relationship to Patient Clinical Status Yes Sulfa (Sulfonamide Antibiotics) [id number] Drug Allergy Mild N/A 2008 Yes codeine [id number] Drug Allergy Mild N/A 09/15/2015 Yes codeine [id number] Drug Allergy Mild PT TAKES HYDROC 03/06/2017 Yes nitrofurantoin [id number] Drug Allergy Mild RASH 03/06/2017 Yes Penicillins [id number] Drug Allergy Mild N/A 03/06/2017 Yes sulfur dioxide [id number] Drug Allergy Unknown N/A 03/06/2017 Yes pregabalin [id number] Drug Allergy Unknown N/A 03/13/2018 Medications There is no data. 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 11/15/2014 MEGHA PANDA MD Ot 729.1 MYALGIA AND MYOSITIS NOS 11/15/2014 MEGHA PANDA MD Ot 780.57 UNSPECIFIED SLEEP APNEA 11/15/2014 MEGHA PANDA MD Ot 794.2 ABN PULMONARY FUNC STUDY 11/15/2014 MEGHA PNADA MD Ot E944.3 ADV EFF SALURETICS 11/15/2014 [...] 11/16/2014 MEGHA PANDA MD Ot V85.41 11/16/2014 FARZAD MOULTON, MEGHA Ku Ot 250.70 11/16/2014 FARZAD MOULTON, MEGHA Ku Ot 272.0 11/16/2014 MEGHA PANDA MD Ot [...] ERVIN A Ot 753.10 11/29/2014 JOSELUIS BORGES BRANCH ASSISTANT Ot 174.9 11/29/2014 BORGESJOSELUIS Devi BRANCH ASSISTANT Ot V67.9 11/29/2014 INDIA MOULTON, ERVIN A Ot 593.2 11/29/2014 NIRAV MOULTON, ARI Ot V72.84 11/29/2014 INDIA MOULTON, ERVIN Lanier Ot 593.2 11/29/2014 ROSALEEFAITH RABAGO N Ot 174.9 11/29/2014 ROSALEE, FAITH N Ot V67.9 11/29/2014 ROSALEE, FAITH N Ot 793.80 11/29/2014 RAVEN LEO TREE KILLER Ot 729.5 11/29/2014 RAVEN LEO TREE KILLER Ot 786.05 11/29/2014 INDIA MOULTON, ERVIN Lanier Ot 593.2 11/29/2014 RAVEN LEO TREE KILLER Ot 729.5 11/29/2014 RAVEN LEO TREE KILLER Ot 786.05 11/30/2014 RAVEN LEO TREE KILLER Ot 729.5 11/30/2014 RAVEN LEO APRN Ot [...] 11/30/2014 Ot 729.5 11/30/2014 Ot V12.51 11/30/2014 ROSALEE, FAITH N Ot 174.9 11/30/2014 FARZAD MOULTON, MEGHA Ku Ot 453.40 11/30/2014 ROSALEEFAITH RABAGO N Ot V10.3 11/30/2014 ROSALEEFAITH RABAGO N Ot V67.9 11/30/2014 INDIA MOULTON, ERVIN Lanier Ot 593.9 11/30/2014 INDIA MOULTON, ERVIN Lanier Ot 753.10 11/30/2014 JOSELUIS BORGES BRANCH ASSISTANT Ot 174.9 11/30/2014 JOSELUIS BORGES BRANCH ASSISTANT Ot V67.9 11/30/2014 INDIA MOULTON, ERVIN A Ot 593.2 11/30/2014 NIRVA MOULTON, ARI Ot V72.84 11/30/2014 INDIA MOULTON, ERVIN Lanier Ot 593.2 11/30/2014 ROSALEEFAITH RABAGO N Ot 174.9 11/30/2014 ROSALEEEDNA RABAGOAN N Ot V67.9 11/30/2014 ROSALEEFAITH RABAGO N Ot 793.80 11/30/2014 RAVEN LEO APRN Ot 729.5 11/30/2014 RAVEN LEO APRN Ot 786.05 11/30/2014 INDIA MOULTON, ERVIN Lanier Ot 593.2 12/02/2014 LAKISHA MOULTON, SHEELA Short Ot 724.5 12/02/2014 LAKISHA MOULTON, SHEELA Short Ot 729.5 12/02/2014 LAKISHA MOULTON, SHEELA Short Ot V57.1 12/02/2014 INDIA MOULTON, ERVIN Lanier Ot 593.2 12/07/2014 SHEELA BANUELOS MD Ot 724.5 12/07/2014 SHEELA BANUELOS MD Ot 729.5 12/07/2014 SHEELA BANUELOS MD Ot V57.1 12/28/2014 SHEELA BANUELOS MD Ot 724.5 12/28/2014 SHEELA BANUELOS MD Ot 729.5 12/28/2014 SHEELA BANUELOS MD Ot V57.1 12/28/2014 SHEELA BANUELOS MD Ot 724.5 12/28/2014 SHEELA BANUELOS MD Ot 729.5 12/28/2014 SHEELA BANUELOS MD Ot V57.1 01/03/2015 SHEELA BANUELOS MD Ot 724.5 01/03/2015 SHEELA BANUELOS MD Ot 729.5 01/03/2015 SHEELA BANUELOS MD Ot [...] PANDA MD Ot 414.01 CORONARY ATHEROSCLEROSIS OF [place] CORON 04/09/2015 MEGHA PANDA MD Ot 493.00 [...] ERVIN Lanier Ot 753.10 05/03/2015 JOSELUIS BORGES BRANCH ASSISTANT Ot 174.9 05/03/2015 JOSELUIS BORGES BRANCH ASSISTANT Ot V67.9 05/03/2015 INDIA MOULTON, ERVIN Lanier Ot 593.2 05/03/2015 NIRAV MOULTON, ARI Ot V72.84 05/03/2015 INDIA MOULTON, ERVIN Lanier Ot 593.2 05/03/2015 FAITH TURK N Ot [...] Ot 729.5 05/18/2015 Ot V12.51 05/18/2015 ROSALEE, FAITH N Ot 174.9 05/18/2015 FARZAD MOULTON, MEGHA Ku Ot 453.40 05/18/2015 ROSALEE, EDNAAN N Ot V10.3 05/18/2015 ROSALEE, EDNAAN N Ot V67.9 05/18/2015 INDIA MOULTON, ERVIN Lanier Ot 593.9 05/18/2015 INDIA MOULTON, ERVIN A Ot 753.10 05/18/2015 JOSELUIS BORGES BRANCH ASSISTANT Ot 174.9 05/18/2015 JOSELUIS BORGES BRANCH ASSISTANT Ot V67.9 05/18/2015 INDIA MOULTON, ERVIN A Ot 593.2 05/18/2015 NIRAV MOULTON, ARI Ot V72.84 05/18/2015 INDIA MOULTON, ERVIN Lanier Ot 593.2 05/18/2015 ROSALEE, FAITH N Ot 174.9 05/18/2015 ROSALEE, FAITH N Ot V67.9 05/18/2015 ROSALEE, FAITH N Ot 793.80 05/18/2015 RAVEN LEO TREE KILLER Ot 729.5 05/18/2015 RAVEN LEO TREE KILLER Ot 786.05 05/18/2015 INDIA MOULTON, ERVIN Lanier Ot 593.2 05/18/2015 FARZAD MOULTON, MEGHA Ku Ot 428.0 05/18/2015 RAVEN LEO TREE KILLER Ot 719.41 05/18/2015 RAVEN LEO TREE KILLER Ot 786.59 05/18/2015 RAVEN LEO TREE KILLER Ot V57.1 05/18/2015 INDIA MOULTON, ERVIN Lanier Ot 753.10 05/18/2015 ROSALEEFAITH RABAGO N Ot V10.3 05/18/2015 ROSALEEFAITH RABAGO N Ot V12.51 05/18/2015 ROSALEEFAITH RABAGO N Ot V12.55 05/18/2015 FAITH TURK N Ot V45.71 05/18/2015 FAITH TURK N Ot V58.61 05/18/2015 FAITH TURK N Ot V58.69 05/18/2015 FAITH TURK N Ot V67.2 05/23/2015 RAVEN LEO TREE KILLER Ot 719.41 05/23/2015 RAVEN LEO TREE KILLER Ot 786.59 05/23/2015 RAVEN LEO TREE KILLER Ot V57.1 05/23/2015 ERVIN OSBORNE MD Ot [...] 729.5 05/25/2015 Ot V12.51 05/25/2015 FAITH TURK N Ot 174.9 05/25/2015 FARZAD MOULTON, MEGHA Ku Ot 453.40 05/25/2015 FAITH TURK N Ot V10.3 05/25/2015 FAITH TURK N Ot V67.9 05/25/2015 INDIA MOULTON, ERVIN Lanier Ot 593.9 05/25/2015 INDIA MOULTON, ERVIN Lanier Ot 753.10 05/25/2015 JOSELUIS BORGES BRANCH ASSISTANT Ot 174.9 05/25/2015 JOSELUIS BORGES BRANCH ASSISTANT Ot V67.9 05/25/2015 INDIA MOULTON, ERVIN Lanier Ot 593.2 05/25/2015 ARI GASTELUM MD Ot V72.84 05/25/2015 INDIA MOULTON, ERVIN A Ot 593.2 05/25/2015 ROSALEE, BOBAN N Ot 174.9 05/25/2015 ROSALEE, BOBAN N Ot V67.9 05/25/2015 ROSALEE, BOBAN N Ot 793.80 05/25/2015 AHMET, RAVEN R TREE KILLER Ot 729.5 05/25/2015 AHMET, RAVEN R TREE KILLER Ot 786.05 05/25/2015 INDIA MOULTON, ERVIN Lanier Ot 593.2 05/25/2015 FARZAD MOULTON, MEGHA Ku Ot 428.0 05/25/2015 AHMET, RAVEN R TREE KILLER Ot 719.41 05/25/2015 AHMET, RAVEN R TREE KILLER Ot 786.59 05/25/2015 AHMET, RAVEN R TREE KILLER Ot V57.1 05/25/2015 INDIA MOULTON, ERVIN A Ot 753.10 05/25/2015 ROSALEE, BOBAN N Ot V10.3 05/25/2015 ROSALEE, BOBAN N Ot V12.51 05/25/2015 ROSALEE, BOBAN N Ot V12.55 05/25/2015 ROSALEE, BOBAN N Ot V45.71 05/25/2015 ROSALEE, BOBAN N Ot V58.61 05/25/2015 ROSALEE, BOBAN N Ot V58.69 05/25/2015 ROSALEE, BOBAN N Ot V67.2 05/25/2015 ROSALEE, BOBAN N Ot 174.9 05/25/2015 AHMET, RAVEN R TREE KILLER Ot 719.41 05/25/2015 AHMET, RAVEN R TREE KILLER Ot 786.59 05/25/2015 AHMET, RAVEN R TREE KILLER Ot V57.1 05/25/2015 AHMET, RAVEN R TREE KILLER Ot 719.41 05/25/2015 AHMET, RAVEN R TREE KILLER Ot 786.59 05/25/2015 AHMET, RAVEN R TREE KILLER Ot V57.1 05/25/2015 AHMET, RAVEN R TREE KILLER Ot 719.41 05/25/2015 AHMET, RAVEN R TREE KILLER Ot 786.59 05/25/2015 AHMET, RAVEN R TREE KILLER Ot V57.1 05/27/2015 FARZAD MOULTON, MEGHA Ku Ot 250.00 DIAB TJ WO COMPL, TYPE II OR UNSPEC TY 05/27/2015 MEGHA PANDA MD Ot 276.1 HYPOSMOLALITY 05/27/2015 MEGHA PANDA MD [...] 05/27/2015 MEGHA PANDA MD Ot 496 05/27/2015 FARZAD MOULTON, MEGHA Ku Ot 564.1 05/27/2015 MEGHA PANDA MD Ot 715.90 05/27/2015 MEGHA PANDA MD Ot 729.1 05/27/2015 FARZAD MOULTON, MEGHA Ku Ot 802.0 05/27/2015 MEGHA PANDA MD Ot [...] PARR Ot 780.2 SYNCOPE AND COLLAPSE 06/14/2015 ROSALEE EDNASUJATA N Ot 174.9 06/16/2015 RAVEN LEO APRN Ot 719.41 JOINT PAIN-SHLDER 06/16/2015 RAVEN LEO TREE KILLER Ot 786.59 CHEST PAIN NEC 06/16/2015 RAVEN [...] ADULT 09/08/2015 MEGHA PANDA MD, Ot Z79.01 CORRECTION (CURRENT) USE OF ANTICOAGULANT 09/08/2015 MEGHA PANDA MD Ot Z79.4 BUILDING APPRAISER (CURRENT) USE OF INSULIN 09/08/2015 MEGHA PANDA MD Ot Z85.3 PERSONAL HISTORY OF MALIGNANT NEOPLASM O 09/08/2015 MEGHA PANDA MD Ot Z86.711 PERSONAL HISTORY OF PULMONARY EMBOLISM 09/08/2015 MEGHA PANDA MD Ot Z86.718 PERSONAL HISTORY OF OTHER VENOUS THROMBO 09/15/2015 VENUS PARTIDA MD E Ot D64.9 ANEMIA, UNSPECIFIED 09/15/2015 JAQUAN MOULTON VENUS E Ot E11.9 TYPE 2 DIABETES MELLITUS WITHOUT COMPLIC 09/15/2015 DASH PARTIDA MDIC E Ot E66.9 OBESITY, UNSPECIFIED 09/15/2015 DASH PARTIDA MDIC E Ot E83.42 HYPOMAGNESEMIA 09/15/2015 DASH PARTIDA MDIC E Ot E83.51 HYPOCALCEMIA 09/15/2015 DASH PARTIDA MDIC E Ot E87.6 HYPOKALEMIA 09/15/2015 DASH PARTIDA MDIC E Ot F31.9 BIPOLAR DISORDER, UNSPECIFIED 09/15/2015 JAQUAN MOULTON VENUS E Ot F41.9 ANXIETY DISORDER, UNSPECIFIED 09/15/2015 JAQUAN MOULTON VENUS E Ot G25.0 ESSENTIAL TREMOR 09/15/2015 DASH PARTIDA MDIC E Ot G47.33 OBSTRUCTIVE SLEEP APNEA (ADULT) (PEDIATR 09/15/2015 JAQUAN MOULTON VENUS E Ot H91.10 PRESBYCUSIS, UNSPECIFIED EAR 09/15/2015 JAQUAN MOULTON VENUS E Ot I10 ESSENTIAL (PRIMARY) HYPERTENSION 09/15/2015 JAQUAN MOULTON VENUS E Ot I27.2 OTHER SECONDARY PULMONARY HYPERTENSION 09/15/2015 JAQUAN MOULTON VENUS E Ot I48.91 UNSPECIFIED ATRIAL FIBRILLATION 09/15/2015 [...] ADULT 09/23/2015 MEGHA MATIAS MD, Ot Z79.01 BUILDING APPRAISER (CURRENT) USE OF ANTICOAGULANT 09/23/2015 MEGHA MATIAS MD, Ot Z79.4 CORRECTION (CURRENT) USE OF INSULIN 10/19/2015 MEGHA PANDA [...] ADULT 10/19/2015 MEGHA PANDA MD, Ot Z79.4 CORRECTION (CURRENT) USE OF INSULIN 12/06/2015 MEGHA PANDA MD, Ot L03.90 12/06/2015 MEGHA PANDA MD, Ot Z51.81 12/06/2015 MEGHA PANDA MD, Ot Z79.2 01/02/2016 MEGHA PANDA MD, Ot L03.90 01/02/2016 MEGHA PANDA MD Ot Z51.81 01/02/2016 MEGHA PANDA MD Ot Z79.2 02/02/2016 SANGEETA MARSHALL MD Ot [...] SPECIF 02/02/2016 SANGEETA MARSHALL MD Ot Z79.4 BUILDING APPRAISER (CURRENT) USE OF INSULIN 02/17/2016 DANY ESPINAL DO Ot E03.9 02/17/2016 DANY ESPINAL DO Ot I48.2 02/17/2016 DANY ESPINAL DO Ot N39.0 02/22/2016 AGATHA ESPINAL BRANCH ASSISTANT Ot N39.0 03/01/2016 AGATHA ESPINAL BRANCH ASSISTANT Ot N39.0 03/06/2016 DANY ESPINAL DO Ot N39.0 03/07/2016 DANY ESPINAL DO Ot E03.9 03/07/2016 DANY ESPINAL DO Ot I48.2 03/07/2016 DNAY ESPINAL DO Ot N39.0 03/08/2016 NELLY SMITH DO Ot I51.7 CARDIOMEGALY 03/08/2016 SARAH CELI CHAUHANA Cricket Ot N39.0 URINARY TRACT INFECTION, SITE NOT SPECIF 03/08/2016 CELI SMITH DOA Cricket Ot R09.89 OTH SYMPTOMS AND SIGNS INVOLVING THE CIR 03/09/2016 CELI SMITH DOA Cricket Ot I51.7 CARDIOMEGALY 03/09/2016 SARAH DO NELLY K Ot N39.0 URINARY TRACT INFECTION, SITE NOT SPECIF 03/09/2016 NELLY SMITH DO Ot R09.89 OTH SYMPTOMS AND SIGNS INVOLVING THE CIR 03/12/2016 OLGA NG DOI Ot A41.51 SEPSIS DUE TO ESCHERICHIA COLI [E. COLI] 03/12/2016 BERENICE CHAUHAN JOSE ELIAS Ot E11.649 TYPE 2 DIABETES MELLITUS WITH [...] UNSPECIFIED 03/21/2016 SANGEETA MARSHALL MD Ot Z79.01 CORRECTION (CURRENT) USE OF ANTICOAGULANT 03/21/2016 SANGEETA MARSHALL MD Ot Z79.4 BUILDING APPRAISER (CURRENT) USE OF INSULIN 03/21/2016 SANGEETA MARSHALL [...] QUADRIPLEGIA 03/22/2016 SANGEETA MARSHALL MD Ot Z79.01 CORRECTION (CURRENT) USE OF ANTICOAGULANT 03/22/2016 SANGEETA MARSHALL MD Ot Z79.4 BUILDING APPRAISER (CURRENT) USE OF INSULIN 03/22/2016 SANGEETA MARSHALL MD Ot Z86.711 PERSONAL HISTORY OF PULMONARY EMBOLISM 03/22/2016 SANGEETA MARSHALL MD Ot Z86.718 PERSONAL HISTORY OF OTHER VENOUS THROMBO 03/22/2016 SANGEETA MARSHALL MD Ot Z87.440 PERSONAL HISTORY OF URINARY (TRACT) INFE 03/22/2016 JOANNA MOULTON, SANGEETA Cricket Ot Z91.19 PATIENT'S NONCOMPLIANCE W OT MEDICAL TR 03/28/2016 NELLY SMITH DO Cricket Ot I51.7 CARDIOMEGALY 03/28/2016 NELLY SMITH DO [...] CYSTIC KIDNEY DISEASE, UNSPECIFIED 04/26/2016 JOSELUIS BORGES BRANCH ASSISTANT Ot 174.9 MALIGN NEOPL BREAST NOS 04/26/2016 JOSELUIS BORGES BRANCH ASSISTANT Ot V67.9 FOLLOW-UP EXAM NOS 04/26/2016 ERVIN OSBORNE MD Ot 593.2 CYST OF KIDNEY, ACQUIRED 04/26/2016 NIRAV MOULTON, [facility] Ot V72.84 EXAM PRE-OPERATIVE NOS 04/26/2016 INDIA MOULTON, ERVIN Lanier Ot 593.2 CYST OF KIDNEY, ACQUIRED 04/26/2016 FAITH TURK Ot 174.9 MALIGN NEOPL BREAST NOS 04/26/2016 FAITH TURK Ot V67.9 FOLLOW-UP EXAM NOS 04/26/2016 FAITH TURK Ot 793.80 UNSPEC ABNORMAL MAMMOGRAM 04/26/2016 RAVEN LEO TREE KILLER Ot 729.5 PAIN IN LIMB 04/26/2016 RAVEN LEO TREE KILLER Ot 786.05 SHORTNESS OF BREATH 04/26/2016 ERVIN [...] MON 04/26/2016 MEGHA PANDA MD Ot Z79.2 BUILDING APPRAISER (CURRENT) USE OF ANTIBIOTICS 04/26/2016 AGATHA ESPINAL [...] TRTMT FO 05/11/2016 JOSELUIS BORGES Ot Z79.01 CORRECTION (CURRENT) USE OF ANTICOAGULANT 05/11/2016 JOSELUIS BORGESP Ot Z85.3 PERSONAL HISTORY OF MALIGNANT NEOPLASM O 05/11/2016 JOSELUIS BORGES Ot Z86.718 PERSONAL HISTORY OF OTHER VENOUS THROMBO 05/11/2016 JOSELUIS BORGES Ot Z90.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 05/11/2016 JOSELUIS BORGES Ot Z08 ENCNTR FOR FOLLOW-UP EXAM AFTER TRTMT FO 05/11/2016 JOSELUIS BORGES Ot Z79.01 CORRECTION (CURRENT) USE OF ANTICOAGULANT 05/11/2016 JOSELUIS BORGES S JASON Ot Z85.3 PERSONAL HISTORY OF MALIGNANT NEOPLASM O 05/11/2016 BORGES JOSELUIS Devi JASON Ot Z86.718 PERSONAL HISTORY OF OTHER VENOUS THROMBO 05/11/2016 BORGES JOSELUIS Devi JASON Ot Z90.11 ACQUIRED ABSENCE OF RIGHT [...] DISEASES CLASSD ELSR W 05/24/2016 DANY ESPINAL DO Ot F02.81 DEMENTIA IN OTH DISEASES CLASSD [facility] W 05/24/2016 DANY ESPINAL DO Ot 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, 05/25/2016 NELLY SMITH DO Ot I51.7 CARDIOMEGALY 05/25/2016 NELLY SMITH DO Ot N39.0 URINARY TRACT INFECTION, SITE NOT SPECIF 05/25/2016 NELLY SMITH DO Ot R09.89 [facility] SYMPTOMS AND SIGNS INVOLVING THE CIR 05/26/2016 DANY ESPINAL DO Ot F02.81 DEMENTIA IN OTH DISEASES CLASSD [facility] W 05/26/2016 DANY ESPINAL DO, Ot [...] BREAST NOS 05/28/2016 MEGHA PANDA MD Ot 453.40 ACUTE VENOUS EMBOLISM THROMBOSIS UNSP 05/28/2016 FAITH TURK Ot V10.3 HX OF BREAST MALIGNANCY 05/28/2016 FAITH TURK Ot V67.9 FOLLOW-UP EXAM NOS 05/28/2016 INDIA MOULTON, ERVIN Lanier Ot 593.9 RENAL URETERAL DIS NOS 05/28/2016 ERVIN OSBORNE MD Ot 753.10 CYSTIC KIDNEY DISEASE, UNSPECIFIED 05/28/2016 JOSELUIS BORGES BRANCH ASSISTANT Ot 174.9 MALIGN NEOPL BREAST NOS 05/28/2016 JOSELUIS BORGES BRANCH ASSISTANT Ot V67.9 FOLLOW-UP EXAM NOS 05/28/2016 ERVIN OSBORNE MD Ot 593.2 CYST OF KIDNEY, ACQUIRED 05/28/2016 NIRAV MOULTON, ARI Ot V72.84 EXAM PRE-OPERATIVE NOS 05/28/2016 ERVIN OSBORNE MD Ot 593.2 CYST OF KIDNEY, ACQUIRED 05/28/2016 FAITH TURK Ot 174.9 MALIGN NEOPL BREAST NOS 05/28/2016 FAITH TURK Ot V67.9 FOLLOW-UP EXAM NOS 05/28/2016 FAITH TURK Ot 793.80 UNSPEC ABNORMAL MAMMOGRAM 05/28/2016 RAVNE LEO TREE KILLER Ot 729.5 PAIN IN LIMB 05/28/2016 RAVEN LEO TREE KILLER Ot 786.05 SHORTNESS OF BREATH 05/28/2016 ERVIN OSBORNE MD Ot 593.2 CYST OF KIDNEY, ACQUIRED 05/28/2016 MEGHA PANDA MD Ot 428.0 CONGESTIVE HEART FAILURE NOS 05/28/2016 [...] MON 05/28/2016 MEGHA PANDA MD Ot Z79.2 CORRECTION (CURRENT) USE OF ANTIBIOTICS 05/28/2016 AGATHA ESPINAL [...] FOR FOLLOW-UP EXAM AFTER TRTMT FO 05/28/2016 JOSELUIS BORGES BRANCH ASSISTANT Ot Z79.01 BUILDING APPRAISER (CURRENT) USE OF ANTICOAGULANT 05/28/2016 JOSELUIS BORGES BRANCH ASSISTANT Ot Z85.3 PERSONAL HISTORY OF MALIGNANT NEOPLASM O 05/28/2016 JOSELUIS BORGES BRANCH ASSISTANT Ot Z86.718 PERSONAL HISTORY OF OTHER VENOUS THROMBO 05/28/2016 JOSELUIS BORGES BRANCH ASSISTANT Ot Z90.11 ACQUIRED ABSENCE OF RIGHT BREAST [...] TRTMT FO 05/30/2016 JOSELUIS BORGESP Ot Z79.01 BUILDING APPRAISER (CURRENT) USE OF ANTICOAGULANT 05/30/2016 JOSELUIS BORGES BRANCH ASSISTANT Ot Z85.3 PERSONAL HISTORY OF MALIGNANT NEOPLASM O 05/30/2016 JOSELUIS BOREGS BRANCH ASSISTANT Ot Z86.718 PERSONAL HISTORY OF OTHER VENOUS THROMBO 05/30/2016 JOSELUIS BORGES BRANCH ASSISTANT Ot Z90.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 05/31/2016 JAYE MENG APRN Ot I48.2 CHRONIC ATRIAL FIBRILLATION 05/31/2016 JAYE MENG APRN Ot I50.9 HEART FAILURE, UNSPECIFIED 05/31/2016 JAYE MENG APRN Ot K59.00 CONSTIPATION, UNSPECIFIED 05/31/2016 JAYE MENG TREE KILLER Ot R07.89 OTHER CHEST PAIN 06/07/2016 JOSELUIS BORGES BRANCH ASSISTANT Ot Z08 ENCNTR FOR FOLLOW-UP EXAM AFTER TRTMT FO 06/07/2016 JOSELUIS BORGES BRANCH ASSISTANT Ot Z79.01 BUILDING APPRAISER (CURRENT) USE OF ANTICOAGULANT 06/07/2016 BORGESJOSELUIS Devi JASON Ot Z85.3 PERSONAL HISTORY OF MALIGNANT NEOPLASM O 06/07/2016 BORGES JOSELUIS Devi JASON Ot Z86.718 PERSONAL HISTORY OF OTHER VENOUS THROMBO 06/07/2016 BORGES JOSELUIS Devi JASON Ot Z90.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 06/14/2016 DANY ESPINAL DO Ot 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 06/14/2016 DANY ESPINAL DO Ot 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, 06/25/2016 Ot S05.02XA INJ CONJUNCTIVA AND CORNEAL ABRASION W/O 06/25/2016 Ot W22.8XXA STRIKING AGAINST OR STRUCK BY OTHER OBJE 06/28/2016 DANY ESPINAL DO Ot F02.81 DEMENTIA IN OTH DISEASES CLASSD ELSR W 06/28/2016 DANY ESPINAL DO, Ot G31.9 [...] Ot 593.9 RENAL URETERAL DIS NOS 07/11/2016 ERVIN OSBORNE MD Ot 753.10 CYSTIC KIDNEY DISEASE, UNSPECIFIED 07/11/2016 JOSELUIS BORGES BRANCH ASSISTANT Ot 174.9 MALIGN NEOPL BREAST NOS 07/11/2016 JOSELUIS BORGES BRANCH ASSISTANT Ot V67.9 FOLLOW-UP EXAM NOS 07/11/2016 INDIA MOULTON, ERVIN Lanier Ot 593.2 CYST OF KIDNEY, ACQUIRED 07/11/2016 NIRAV MOULTON, ARI Ot V72.84 EXAM PRE-OPERATIVE NOS 07/11/2016 INDIA MOULTON, ERVIN Lanier Ot 593.2 CYST OF KIDNEY, ACQUIRED 07/11/2016 FAITH TURK Ot 174.9 MALIGN NEOPL BREAST NOS 07/11/2016 FIATH TURK Ot V67.9 FOLLOW-UP EXAM NOS 07/11/2016 FAITH TURK Ot 793.80 UNSPEC ABNORMAL MAMMOGRAM 07/11/2016 RAVEN LEO TREE KILLER Ot 729.5 PAIN IN LIMB 07/11/2016 RAVEN LEO TREE KILLER Ot 786.05 SHORTNESS OF BREATH 07/11/2016 INDIA [...] Ot V67.2 CHEMOTHERAPY FOLLOW-UP 07/11/2016 FAITH TURK Evy Ot 174.9 MALIGN NEOPL BREAST NOS 07/11/2016 [...] MON 07/11/2016 MEGHA PANDA MD Ot Z79.2 CORRECTION (CURRENT) USE OF ANTIBIOTICS 07/11/2016 AGATHA ESPINAL Ot N39.0 URINARY TRACT INFECTION, SITE NOT SPECIF 07/11/2016 DANY ESPINAL DO Ot E03.9 HYPOTHYROIDISM, UNSPECIFIED 07/11/2016 DANY ESPINAL DO Ot I48.2 CHRONIC ATRIAL FIBRILLATION 07/11/2016 DANY ESPINAL DO Ot N39.0 URINARY TRACT INFECTION, SITE NOT SPECIF 07/11/2016 DANY ESPINAL DO Ot N39.0 URINARY TRACT INFECTION, SITE NOT SPECIF 07/11/2016 Ot 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 07/11/2016 Ot N28.1 CYST OF KIDNEY, ACQUIRED 07/11/2016 JOSELUIS BORGES Ot Z08 ENCNTR FOR FOLLOW-UP EXAM AFTER TRTMT FO 07/11/2016 JOSELUIS BORGES Ot Z79.01 CORRECTION (CURRENT) USE OF ANTICOAGULANT 07/11/2016 JOSELUIS BORGES Ot Z85.3 PERSONAL HISTORY OF MALIGNANT NEOPLASM O 07/11/2016 JOSELUIS BORGES Ot Z86.718 PERSONAL HISTORY OF OTHER VENOUS THROMBO 07/11/2016 JOSELUIS BORGES Ot Z90.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 07/11/2016 DANY ESPINAL DO Ot 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 07/11/2016 TEDDY CHAUHAN DANY Short Ot 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, 07/11/2016 MEGHA PANDA MD Ot L03.90 CELLULITIS, UNSPECIFIED 07/11/2016 MEGHA PANDA MD Ot Z51.81 ENCOUNTER FOR THERAPEUTIC DRUG LEVEL MON 07/11/2016 MEGHA PANDA MD Ot Z79.2 CORRECTION (CURRENT) USE OF ANTIBIOTICS 07/11/2016 MEGHA PANDA MD, Ot L03.90 CELLULITIS, UNSPECIFIED 07/11/2016 MEGHA PANDA MD Ot Z51.81 ENCOUNTER FOR THERAPEUTIC DRUG LEVEL MON 07/11/2016 MEGHA PANDA MD, Ot Z79.2 CORRECTION (CURRENT) USE OF ANTIBIOTICS 08/07/2016 JOSELUIS BORGES BRANCH ASSISTANT Ot Z12.31 ENCNTR SCREEN MAMMOGRAM FOR MALIGNANT NE 08/08/2016 JOSELUIS BORGES BRANCH ASSISTANT Ot Z12.31 ENCNTR SCREEN MAMMOGRAM FOR MALIGNANT NE 08/08/2016 JOSELUIS BORGES BRANCH ASSISTANT Ot Z12.31 ENCNTR SCREEN MAMMOGRAM FOR MALIGNANT NE 08/14/2016 JOSELUIS BORGES BRANCH ASSISTANT Ot R92.8 OTH ABN AND INCONCLUSIVE FINDINGS ON DX 08/15/2016 JOSELUIS BORGES BRANCH ASSISTANT Ot R92.8 OTH ABN AND INCONCLUSIVE FINDINGS ON DX 08/15/2016 JOSELUIS BORGES BRANCH ASSISTANT Ot R92.8 OTH ABN AND INCONCLUSIVE FINDINGS ON DX 08/29/2016 JOSELUIS BORGES BRANCH ASSISTANT Ot Z12.31 ENCNTR SCREEN MAMMOGRAM FOR MALIGNANT NE 09/05/2016 JOSELUIS BORGES BRANCH ASSISTANT Ot R92.8 OTH ABN AND INCONCLUSIVE FINDINGS ON DX 09/05/2016 JOSELUIS BORGES BRANCH ASSISTANT Ot Z12.31 ENCNTR SCREEN MAMMOGRAM FOR MALIGNANT NE 09/12/2016 JOSELUIS BORGES BRANCH ASSISTANT Ot R92.8 OTH ABN AND INCONCLUSIVE FINDINGS ON DX 09/25/2016 NELLY SMITH DO Ot I51.7 CARDIOMEGALY 09/25/2016 NELLY SMITH DO Ot N39.0 URINARY TRACT INFECTION, SITE NOT SPECIF 09/25/2016 NELLY SMITH DO Ot R09.89 OT SYMPTOMS AND SIGNS INVOLVING THE CIR 01/23/2017 [...] CYSTIC KIDNEY DISEASE, UNSPECIFIED 02/06/2017 JOSELUIS BORGES BRANCH ASSISTANT Ot 174.9 MALIGN NEOPL BREAST NOS 02/06/2017 JOSELUIS BORGES BRANCH ASSISTANT Ot V67.9 FOLLOW-UP EXAM NOS 02/06/2017 ERVIN OSBORNE MD Ot 593.2 CYST OF KIDNEY, ACQUIRED 02/06/2017 NIRAV MOULTON, ARI Ot V72.84 EXAM PRE-OPERATIVE NOS 02/06/2017 ERVIN OSBORNE MD Ot 593.2 CYST OF KIDNEY, ACQUIRED 02/06/2017 FAITH TURK Ot 174.9 MALIGN NEOPL BREAST NOS 02/06/2017 FAITH TURK Ot V67.9 FOLLOW-UP EXAM NOS 02/06/2017 FAITH TURK Ot 793.80 UNSPEC ABNORMAL MAMMOGRAM 02/06/2017 RAVEN LEO TREE KILLER Ot 729.5 PAIN IN LIMB 02/06/2017 RAVEN LEO TREE KILLER Ot 786.05 SHORTNESS OF BREATH 02/06/2017 ERVIN [...] Ot V67.2 CHEMOTHERAPY FOLLOW-UP 02/06/2017 FAITH TURK Ot 174.9 MALIGN NEOPL [...] MON 02/06/2017 MEGHA PANDA MD Ot Z79.2 CORRECTION (CURRENT) USE OF ANTIBIOTICS 02/06/2017 AGATHA ESPINAL [...] TRTMT FO 02/06/2017 JOSELUIS BORGES Ot Z79.01 CORRECTION (CURRENT) USE OF ANTICOAGULANT 02/06/2017 JOSELUIS BORGES Ot Z85.3 PERSONAL HISTORY OF MALIGNANT NEOPLASM O 02/06/2017 JOSELUIS BORGES Ot Z86.718 PERSONAL HISTORY OF OTHER VENOUS THROMBO 02/06/2017 JOSELUIS BORGES Ot Z90.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 02/06/2017 JOSELUIS BORGES Ot Z12.31 ENCNTR SCREEN MAMMOGRAM FOR MALIGNANT NE 02/06/2017 DANY ESPINAL DO Ot 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 02/06/2017 DANY ESPINAL DO Ot 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, 02/06/2017 JOSELUIS BORGES JASON Ot R92.8 OTH ABN AND INCONCLUSIVE FINDINGS ON DX 02/07/2017 [...] MD Ot I25.10 ATHSCL HEART DISEASE OF [place] CORONARY 03/05/2017 SANGEETA MARSHALL MD Ot I27.2 [...] MD Ot I25.10 ATHSCL HEART DISEASE OF [place] CORONARY 03/05/2017 SANGEETA MARSHALL MD Ot I27.2 [...] OTHER ACQUIRED DEFORMITIES OF RIGHT FOOT 03/06/2017 JOAOHO DPFRANCK Aleman Ot Z01.818 ENCOUNTER FOR OTHER PREPROCEDURAL EXAMIN 03/06/2017 FRANCK LARSON DPM Ot Z11.2 ENCOUNTER FOR SCREENING FOR OTHER BACTER 03/06/2017 SHEELA BANUELOS MD Ot E78.2 MIXED HYPERLIPIDEMIA 03/06/2017 SHEELA BANUELOS MD Ot G25.0 ESSENTIAL TREMOR 03/06/2017 SHEELA BANUELOS MD Ot I10 ESSENTIAL (PRIMARY) HYPERTENSION 03/06/2017 SHEELA BANUELOS MD Ot I48.0 PAROXYSMAL ATRIAL FIBRILLATION 03/06/2017 SHEELA BANUELOS MD Ot R07.9 CHEST PAIN, UNSPECIFIED 03/08/2017 BLANCHO DPMFRANCK Ot M21.6X1 OTHER ACQUIRED DEFORMITIES OF RIGHT FOOT 03/08/2017 JOAOHO DPFRANCK Aleman Ot Z01.818 ENCOUNTER FOR OTHER PREPROCEDURAL EXAMIN 03/08/2017 BLANCHO DPFRANCK Aleman Ot Z11.2 ENCOUNTER FOR SCREENING FOR OTHER BACTER 03/12/2017 YASSINENCHO DPMFRANCK Ot M21.6X1 OTHER ACQUIRED DEFORMITIES OF RIGHT FOOT 03/12/2017 BLAXOCHILTHO DPMFRANCK Ot Z01.818 ENCOUNTER FOR OTHER PREPROCEDURAL EXAMIN 03/12/2017 JOAOHO FRANCK PAL Ot Z11.2 ENCOUNTER FOR SCREENING FOR OTHER [...] CYSTIC KIDNEY DISEASE, UNSPECIFIED 03/13/2017 JOSELUIS BORGES BRANCH ASSISTANT Ot 174.9 MALIGN NEOPL BREAST NOS 03/13/2017 JOSELUIS BORGES BRANCH ASSISTANT Ot V67.9 FOLLOW-UP EXAM NOS 03/13/2017 [place] MOULTON, ERVIN Lanier Ot 593.2 CYST OF KIDNEY, ACQUIRED 03/13/2017 NIRAV MOULTON, ARI Ot V72.84 EXAM PRE-OPERATIVE NOS 03/13/2017 [place] MOULTON, ERVIN Lanier Ot 593.2 CYST OF KIDNEY, ACQUIRED 03/13/2017 FAITH TURK Ot 174.9 MALIGN NEOPL BREAST NOS 03/13/2017 FAITH TURK Ot V67.9 FOLLOW-UP EXAM NOS 03/13/2017 FAITH TURK Ot 793.80 UNSPEC ABNORMAL MAMMOGRAM 03/13/2017 RAVEN LEO TREE KILLER Ot 729.5 PAIN IN LIMB 03/13/2017 RAVEN LEO TREE KILLER Ot 786.05 SHORTNESS OF BREATH 03/13/2017 [place] [...] Ot 174.9 MALIGN NEOPL BREAST NOS 03/13/2017 FARZAD MOULTON, MEGHA Ku Ot 276.1 HYPOSMOLALITY 03/13/2017 MEGHA PANDA MD [...] MON 03/13/2017 MEGHA PANDA MD Ot Z79.2 CORRECTION (CURRENT) USE OF ANTIBIOTICS 03/13/2017 AGATHA ESPINAL Ot N39.0 URINARY TRACT INFECTION, SITE NOT SPECIF 03/13/2017 DANY ESPINAL DO Ot E03.9 HYPOTHYROIDISM, UNSPECIFIED 03/13/2017 DANY ESPINAL DO Ot I48.2 CHRONIC ATRIAL FIBRILLATION 03/13/2017 DANY ESPINAL DO Ot N39.0 URINARY TRACT INFECTION, SITE NOT SPECIF 03/13/2017 DANY ESPINAL DO, Ot N39.0 URINARY TRACT INFECTION, SITE NOT SPECIF 03/13/2017 Ot 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 03/13/2017 Ot N28.1 CYST OF KIDNEY, ACQUIRED 03/13/2017 JOSELUIS BORGES Ot Z08 ENCNTR FOR FOLLOW-UP EXAM AFTER TRTMT FO 03/13/2017 JOSELUIS BORGES Ot Z79.01 CORRECTION (CURRENT) USE OF ANTICOAGULANT 03/13/2017 JOSELUIS BORGES [...] BANUELOS MD, Ot G25.0 ESSENTIAL TREMOR 03/13/2017 LAKISHA MD, BASHAR J Ot I10 ESSENTIAL (PRIMARY) HYPERTENSION 03/13/2017 LAKISHA MOULTON, SHEELA Short Ot I48.0 PAROXYSMAL ATRIAL FIBRILLATION 03/13/2017 SHEELA BANUELOS MD Ot R07.9 CHEST PAIN, UNSPECIFIED 03/13/2017 MARSHA DPFRANCK Aleman Ot E11.9 TYPE 2 DIABETES MELLITUS WITHOUT COMPLIC 03/13/2017 JOAOHO DPM, FRANCK Stanton Ot I10 ESSENTIAL (PRIMARY) HYPERTENSION 03/13/2017 BLANCHO DPM, FRANCK Stanton Ot M20.41 OTHER HAMMER TOE(S) (ACQUIRED), RIGHT FO 03/13/2017 BLANCHO DPM, FRANCK Stanton Ot M21.6X1 OTHER ACQUIRED DEFORMITIES OF RIGHT FOOT 03/13/2017 JOAOHO DPAsh, FRANCK Stanton Ot Z79.4 BUILDING APPRAISER (CURRENT) USE OF INSULIN 03/13/2017 JOAOHO DPFRANCK Aleman Ot Z79.84 BUILDING APPRAISER (CURRENT) USE OF ORAL HYPOGLYC 03/13/2017 JOAOHO DPFRANCK Aleman Ot Z79.899 OTHER BUILDING APPRAISER (CURRENT) DRUG THERAPY 03/28/2017 Ot 250.00 DIAB [...] CYSTIC KIDNEY DISEASE, UNSPECIFIED 03/28/2017 JOSELUIS BORGES BRANCH ASSISTANT Ot 174.9 MALIGN NEOPL BREAST NOS 03/28/2017 JOSELUIS BORGES BRANCH ASSISTANT Ot V67.9 FOLLOW-UP EXAM NOS 03/28/2017 ERVIN [...] 729.5 PAIN IN LIMB 03/28/2017 RAVEN LEO TREE KILLER Ot 786.05 SHORTNESS OF BREATH 03/28/2017 ERVIN OSBORNE MD Ot 593.2 CYST OF KIDNEY, ACQUIRED 03/28/2017 MARSHA PAL, FRANCK Stanton Ot M79.604 PAIN IN RIGHT LEG 04/19/2017 BLANCHO DPM, FRANCK Stanton Ot M79.604 PAIN IN RIGHT LEG 04/25/2017 NELLY SMITH DO Ot I51.7 CARDIOMEGALY 04/25/2017 NELLY SMITH DO Ot N39.0 URINARY TRACT INFECTION, SITE NOT SPECIF 04/25/2017 NELLY SMITH DO Ot R09.89 OTH SYMPTOMS AND SIGNS INVOLVING THE CIR 04/25/2017 AGATHA ESPINAL BRANCH ASSISTANT Ot N28.1 CYST OF KIDNEY, ACQUIRED 04/25/2017 AGATHA ESPINAL BRANCH ASSISTANT Ot R10.2 PELVIC AND PERINEAL PAIN 04/26/2017 INDIA MOULTON, ERVIN Lanier Ot N28.1 CYST OF KIDNEY, ACQUIRED 04/26/2017 JOAOHO DPM, FRANCK Maximino Ot M79.604 PAIN IN RIGHT LEG 04/26/2017 [...] TRTMT FO 05/10/2017 FAITH TURK Ot Z79.01 BUILDING APPRAISER (CURRENT) USE OF ANTICOAGULANT 05/10/2017 FAITH TURK Ot Z79.4 CORRECTION (CURRENT) USE OF INSULIN 05/10/2017 FAITH TURK Ot Z85.3 PERSONAL HISTORY OF MALIGNANT NEOPLASM O 05/10/2017 FAITH TURK Ot Z86.718 PERSONAL HISTORY OF OTHER VENOUS THROMBO 05/10/2017 FAITH TURK Ot Z90.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 05/10/2017 FAITH TURK Ot Z92.21 PERSONAL HISTORY OF ANTINEOPLASTIC CHEMO 05/14/2017 AGATHA ESPINAL BRANCH ASSISTANT Ot N28.1 CYST OF KIDNEY, ACQUIRED 05/14/2017 TEDDY AGATHA L BRANCH ASSISTANT Ot R10.2 PELVIC AND PERINEAL PAIN 05/14/2017 INDIA MOULTON, ERVIN Yannick Ot N28.1 CYST OF KIDNEY, ACQUIRED 05/24/2017 [...] 05/31/2017 YANG VALERA MD Ot Z79.899 OTHER BUILDING APPRAISER (CURRENT) DRUG THERAPY 06/04/2017 YANG VALERA MD [...] 06/04/2017 YANG VALERA MD Ot Z79.899 OTHER BUILDING APPRAISER (CURRENT) DRUG THERAPY 06/13/2017 AGATHA ESPINAL BRANCH ASSISTANT Ot N28.1 CYST OF KIDNEY, ACQUIRED 06/13/2017 AGATHA ESPINAL BRANCH ASSISTANT Ot R10.2 PELVIC AND PERINEAL PAIN 06/17/2017 FAITH TURK Ot E11.9 TYPE 2 DIABETES MELLITUS WITHOUT COMPLIC 06/17/2017 FAITH TURK Ot E78.5 HYPERLIPIDEMIA, UNSPECIFIED 06/17/2017 FAITH TURK Ot I10 ESSENTIAL (PRIMARY) HYPERTENSION 06/17/2017 FAITH TURK Ot Z08 ENCNTR FOR FOLLOW-UP EXAM AFTER TRTMT FO 06/17/2017 FAITH TURK Ot Z79.01 BUILDING APPRAISER (CURRENT) USE OF ANTICOAGULANT 06/17/2017 FAITH TURK Ot Z79.4 BUILDING APPRAISER (CURRENT) USE OF INSULIN 06/17/2017 FAITH TURK [...] TRTMT FO 06/26/2017 FAITH TURK Ot Z79.01 BUILDING APPRAISER (CURRENT) USE OF ANTICOAGULANT 06/26/2017 FAITH TURK Ot Z79.4 CORRECTION (CURRENT) USE OF INSULIN 06/26/2017 FAITH TURK Ot Z85.3 PERSONAL HISTORY OF MALIGNANT NEOPLASM O 06/26/2017 FAITH TURK Ot Z86.718 PERSONAL HISTORY OF OTHER VENOUS THROMBO 06/26/2017 FAITH TURK Evy Ot Z90.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 06/26/2017 FAITH TURK Evy Ot Z92.21 PERSONAL HISTORY OF ANTINEOPLASTIC CHEMO 07/04/2017 FAITH TURK Evy Ot Z12.31 ENCNTR SCREEN MAMMOGRAM FOR MALIGNANT NE 07/26/2017 Ot S05.02XA INJ CONJUNCTIVA AND CORNEAL ABRASION W/O 07/26/2017 Ot W22.8XXA STRIKING AGAINST OR STRUCK BY OTHER OBJE 07/26/2017 SARAH DO NELLY K Ot I51.7 CARDIOMEGALY 07/26/2017 SARAH DO NELLY K Ot N39.0 URINARY TRACT INFECTION, SITE NOT SPECIF 07/26/2017 SARAH DO NELLY K Ot R09.89 OTH SYMPTOMS AND SIGNS INVOLVING THE CIR 08/07/2017 ROSALEE, EDNASUJATA Evy Ot E11.9 TYPE 2 DIABETES MELLITUS WITHOUT COMPLIC 08/07/2017 EDNA TURKSUJATA Evy Ot E78.5 HYPERLIPIDEMIA, UNSPECIFIED 08/07/2017 EDNA TURKSUJATA Evy Ot I10 ESSENTIAL (PRIMARY) HYPERTENSION 08/07/2017 ROSALEE, EDNASUJATA Evy Ot Z08 ENCNTR FOR FOLLOW-UP EXAM AFTER TRTMT FO 08/07/2017 ROSALEEFAITH RABAGO Evy Ot Z79.01 BUILDING APPRAISER (CURRENT) USE OF ANTICOAGULANT 08/07/2017 EDNA TURKSUJATA Evy Ot Z79.4 CORRECTION (CURRENT) USE OF INSULIN 08/07/2017 ROSALEEEDNASUJATA Evy Ot Z85.3 PERSONAL HISTORY OF MALIGNANT NEOPLASM O 08/07/2017 ROSALEE, EDNASUJATA Evy Ot Z86.718 PERSONAL HISTORY OF OTHER VENOUS THROMBO 08/07/2017 ROSALEE, EDNASUJATA Evy Ot Z90.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 08/07/2017 FAITH TURK Evy Ot Z92.21 PERSONAL HISTORY OF ANTINEOPLASTIC CHEMO 08/09/2017 ROSALEE EDNASUJATA Evy Ot R92.8 OTH ABN AND INCONCLUSIVE [...] Aleman Ot F31.9 BIPOLAR DISORDER, UNSPECIFIED 09/04/2017 ARVIND BOGGS MD Ot G25.0 ESSENTIAL TREMOR 09/04/2017 FLAKITA MOULTON, ARVIND Aleman Ot G47.33 OBSTRUCTIVE SLEEP APNEA (ADULT) (PEDIATR 09/04/2017 ARVIND BOGGS MD Ot I10 ESSENTIAL (PRIMARY) HYPERTENSION 09/04/2017 ARVIND BOGGS MD Ot I27.20 PULMONARY HYPERTENSION, UNSPECIFIED 09/04/2017 ARVIND BOGGS MD Ot M79.7 FIBROMYALGIA 09/04/2017 ARVIND BOGGS MD Ot R51 HEADACHE 09/04/2017 ARVIND BOGGS MD Ot Z79.4 BUILDING APPRAISER (CURRENT) USE OF INSULIN 09/04/2017 ARVIND BOGGS MD Ot Z79.899 OTHER BUILDING APPRAISER (CURRENT) DRUG THERAPY 09/11/2017 ARVIND BOGGS MD [...] HEADACHE 09/11/2017 ARVIND BOGGS MD Ot Z79.4 BUILDING APPRAISER (CURRENT) USE OF INSULIN 09/11/2017 ARVIND BOGGS MD Ot Z79.899 OTHER CORRECTION (CURRENT) DRUG THERAPY 09/14/2017 DANY ESPINAL DO Ot D72.829 ELEVATED WHITE BLOOD CELL COUNT, UNSPECI 09/14/2017 DANY ESPINAL DO, Ot E11.9 TYPE 2 DIABETES MELLITUS WITHOUT COMPLIC 09/14/2017 DANY ESPINAL DO, Ot E66.9 OBESITY, UNSPECIFIED 09/14/2017 DANY ESPINAL DO, Ot E78.5 HYPERLIPIDEMIA, UNSPECIFIED 09/14/2017 DANY ESPINAL DO, Ot F31.9 BIPOLAR DISORDER, UNSPECIFIED 09/14/2017 DANY ESPINAL DO, Ot I25.10 ATHSCL HEART DISEASE OF [place] CORONARY 09/14/2017 DANY ESPINAL DO, Ot I27.20 [...] ADULT 09/14/2017 DANY ESPINAL DO, Ot Z79.01 BUILDING APPRAISER (CURRENT) USE OF ANTICOAGULANT 09/14/2017 DANY ESPINAL DO, Ot Z79.4 CORRECTION (CURRENT) USE OF INSULIN 09/14/2017 DANY ESPINAL DO, Ot Z79.899 OTHER CORRECTION (CURRENT) DRUG THERAPY 09/14/2017 DANY ESPINAL DO, Ot Z85.3 PERSONAL HISTORY OF MALIGNANT NEOPLASM O 09/14/2017 DANY ESPINAL DO, Ot Z86.718 PERSONAL HISTORY OF OTHER VENOUS THROMBO 09/14/2017 DANY ESPINAL DO, Ot Z90.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 09/14/2017 DANY ESPINAL DO, Ot Z90.81 ACQUIRED ABSENCE OF SPLEEN 09/16/2017 FAITH TURK Ot R92.8 OTH ABN AND INCONCLUSIVE FINDINGS ON DX 02/03/2018 BORGES, HILAH S BRANCH ASSISTANT Ot R92.8 OTH ABN AND INCONCLUSIVE FINDINGS ON DX 02/03/2018 Ot 611.89 OTHER SPECIFIED DISORDERS OF BREAST 02/03/2018 Ot V67.09 SURGERY FOLLOW-UP, OTHER SURGERY 02/03/2018 FARZAD MOULTON, MEGHA Ku Ot 786.2 COUGH 02/03/2018 Ot 729.5 PAIN IN LIMB 02/03/2018 Ot V12.51 HX-VENOUS THROMBOSIS EMBOLISM 02/03/2018 FAITH TURK Ot 174.9 MALIGN NEOPL BREAST NOS 02/03/2018 MEGHA PANDA MD Ot 453.40 ACUTE VENOUS EMBOLISM THROMBOSIS UNSP 02/03/2018 FAITH TURK Ot V10.3 HX OF BREAST MALIGNANCY 02/03/2018 FAITH TURK Ot V67.9 FOLLOW-UP EXAM NOS 02/03/2018 ERVIN OSBORNE MD Ot 593.9 RENAL URETERAL DIS NOS 02/03/2018 ERVIN OSBORNE MD Ot 753.10 CYSTIC KIDNEY DISEASE, UNSPECIFIED 02/03/2018 JOSELUIS BORGES BRANCH ASSISTANT Ot 174.9 MALIGN NEOPL BREAST NOS 02/03/2018 JOSELUIS BORGES BRANCH ASSISTANT Ot V67.9 FOLLOW-UP EXAM NOS 02/03/2018 ERVIN OSBORNE MD Ot 593.2 CYST OF KIDNEY, ACQUIRED 02/03/2018 NIRAV MOULTON, ARI Ot V72.84 EXAM PRE-OPERATIVE NOS 02/03/2018 ERVIN OSBORNE MD Ot 593.2 CYST OF KIDNEY, ACQUIRED 02/03/2018 FAITH TURK Ot 174.9 MALIGN NEOPL BREAST NOS 02/03/2018 FAITH TURK Ot V67.9 FOLLOW-UP EXAM NOS 02/03/2018 FAITH TURK Ot 793.80 UNSPEC ABNORMAL MAMMOGRAM 02/03/2018 RAVEN LEO TREE KILLER Ot 729.5 PAIN IN LIMB 02/03/2018 RAVEN LEO TREE KILLER Ot 786.05 SHORTNESS OF BREATH 02/03/2018 ERVIN OSBORNE MD Ot 593.2 CYST OF KIDNEY, ACQUIRED 02/03/2018 MEGHA PANDA MD Ot 428.0 CONGESTIVE HEART FAILURE NOS 02/03/2018 [...] FAITH TURK Ot V67.2 CHEMOTHERAPY FOLLOW-UP 02/03/2018 FATIH TURK Ot 174.9 MALIGN NEOPL BREAST NOS 02/03/2018 MEGHA PANDA MD Ot 276.1 HYPOSMOLALITY 02/03/2018 MEGHA PANDA MD Ot 250.00 DIAB TJ WO COMPL, TYPE II OR UNSPEC TY 02/03/2018 MEGHA PANDA MD Ot 276.8 HYPOPOTASSEMIA 02/03/2018 MEGHA PANDA MD Ot 250.00 DIAB TJ WO COMPL, TYPE II OR UNSPEC TY 02/03/2018 MEGHA PANDA MD, Ot V58.69 OTH MED,LT,CURRENT USE 02/03/2018 MEGHA PANDA MD Ot L03.90 CELLULITIS, UNSPECIFIED 02/03/2018 MEGHA PANDA MD Ot Z51.81 ENCOUNTER FOR THERAPEUTIC DRUG LEVEL MON 02/03/2018 MEGHA PANDA MD Ot Z79.2 CORRECTION (CURRENT) USE OF ANTIBIOTICS 02/03/2018 AGATHA ESPINAL [...] FOR FOLLOW-UP EXAM AFTER TRTMT FO 02/03/2018 JOSELUIS BORGES BRANCH ASSISTANT Ot Z79.01 BUILDING APPRAISER (CURRENT) USE OF ANTICOAGULANT 02/03/2018 JOSELUIS BORGES BRANCH ASSISTANT Ot Z85.3 PERSONAL HISTORY OF MALIGNANT NEOPLASM O 02/03/2018 JOSELUIS BORGESP Ot Z86.718 PERSONAL HISTORY OF OTHER VENOUS THROMBO 02/03/2018 JOSELUIS BORGES JASON Ot Z90.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 02/03/2018 JOSELUIS BORGES BRANCH ASSISTANT Ot Z12.31 ENCNTR SCREEN MAMMOGRAM FOR MALIGNANT [...] Ot R07.9 CHEST PAIN, UNSPECIFIED 02/03/2018 MARSHA GALLOWAYM, FRANCK Stanton Ot M79.604 PAIN IN RIGHT LEG 02/03/2018 AGATHA ESPINAL BRANCH ASSISTANT Ot N28.1 CYST OF KIDNEY, ACQUIRED 02/03/2018 AGATHA ESPINAL BRANCH ASSISTANT Ot R10.2 PELVIC AND PERINEAL PAIN 02/03/2018 [...] TRTMT FO 02/03/2018 FAITH TURK Ot Z79.01 CORRECTION (CURRENT) USE OF ANTICOAGULANT 02/03/2018 FAITH TURK Ot Z79.4 BUILDING APPRAISER (CURRENT) USE OF INSULIN 02/03/2018 FAITH TURK [...] Ot V67.09 SURGERY FOLLOW-UP, OTHER SURGERY 02/10/2018 FARZAD MOULTON, MEGHA Ku Ot 786.2 COUGH 02/10/2018 Ot 729.5 PAIN IN LIMB 02/10/2018 Ot V12.51 HX-VENOUS THROMBOSIS EMBOLISM 02/10/2018 FAITH TURK Evy Ot 174.9 MALIGN NEOPL BREAST NOS 02/10/2018 MEGHA PANDA MD Ot 453.40 ACUTE VENOUS EMBOLISM THROMBOSIS UNSP 02/10/2018 FAITH TURK Evy Ot V10.3 HX OF BREAST MALIGNANCY 02/10/2018 FAITH TURK Evy Ot V67.9 FOLLOW-UP EXAM NOS 02/10/2018 INDIA MOULTON, ERVIN Lanier Ot 593.9 RENAL URETERAL DIS NOS 02/10/2018 INDIA MOULTON, ERVIN Lanier Ot 753.10 CYSTIC KIDNEY DISEASE, UNSPECIFIED 02/10/2018 JOSELUIS BORGES BRANCH ASSISTANT Ot 174.9 MALIGN NEOPL BREAST NOS 02/10/2018 JOSELUIS BORGESP Ot V67.9 FOLLOW-UP EXAM NOS 02/10/2018 ERVIN OSBORNE MD Ot 593.2 CYST OF KIDNEY, ACQUIRED 02/10/2018 NIRAV MOULTON, ARI Ot V72.84 EXAM PRE-OPERATIVE NOS 02/10/2018 INDIA MOULTON, ERVIN Lanier Ot 593.2 CYST OF KIDNEY, ACQUIRED 02/10/2018 FAITH TURK Ot 174.9 MALIGN NEOPL BREAST NOS 02/10/2018 ROSALEEFAITH Ot V67.9 FOLLOW-UP EXAM NOS 02/10/2018 ROSALEE FAITH Ratliff Ot 793.80 UNSPEC ABNORMAL MAMMOGRAM 02/10/2018 RAVEN LEO TREE KILLER Ot 729.5 PAIN IN LIMB 02/10/2018 RAVEN LEO TREE KILLER Ot 786.05 SHORTNESS OF BREATH 02/10/2018 INDIA MOULTON, ERVIN Lanier Ot 593.2 CYST OF KIDNEY, ACQUIRED 02/10/2018 FARZAD MOULTON, MEGHA Ku Ot 428.0 CONGESTIVE HEART FAILURE NOS 02/10/2018 IND[place] MOULTON, ERVIN Lanier Ot 753.10 CYSTIC KIDNEY DISEASE, UNSPECIFIED 02/10/2018 FAITH TURK Ot V10.3 HX OF BREAST MALIGNANCY 02/10/2018 FAITH TURK Ot V12.51 HX-VENOUS THROMBOSIS EMBOLISM 02/10/2018 FAITH TURK Ot V12.55 PERSONAL HISTORY OF PULMONARY EMBOLISM 02/10/2018 FAITH TURK Ot V45.71 ACQUIRED ABSENCE OF BREAST AND NIPPLE 02/10/2018 FAITH TURK Ot V58.61 ANTICOAGULANTS,LT,CURRENT USE 02/10/2018 FAITH TURK Ot V58.69 OTH MED,LT,CURRENT USE 02/10/2018 FAITH TURK Ot V67.2 CHEMOTHERAPY FOLLOW-UP 02/10/2018 FAITH TURK Ot 174.9 MALIGN NEOPL BREAST NOS 02/10/2018 MEGAH PANDA MD Ot 276.1 HYPOSMOLALITY 02/10/2018 MEGHA [...] ENCOUNTER FOR THERAPEUTIC DRUG LEVEL MON 02/10/2018 FARZAD MOULTON, MEGHA Ku Ot Z79.2 CORRECTION (CURRENT) USE OF ANTIBIOTICS 02/10/2018 AGATHA ESPINAL Ot N39.0 URINARY TRACT INFECTION, SITE NOT SPECIF 02/10/2018 DANY ESPINAL DO Ot E03.9 HYPOTHYROIDISM, UNSPECIFIED 02/10/2018 DANY ESPINAL DO Ot I48.2 CHRONIC ATRIAL FIBRILLATION 02/10/2018 DANY ESPINAL DO Ot N39.0 URINARY TRACT INFECTION, SITE NOT SPECIF 02/10/2018 DANY ESPINAL DO, Ot N39.0 URINARY TRACT INFECTION, SITE NOT SPECIF 02/10/2018 Ot 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 02/10/2018 Ot N28.1 CYST OF KIDNEY, ACQUIRED 02/10/2018 JOSELUIS BORGES Ot Z08 ENCNTR FOR FOLLOW-UP EXAM AFTER TRTMT FO 02/10/2018 JOSELUIS BORGES Ot Z79.01 BUILDING APPRAISER (CURRENT) USE OF ANTICOAGULANT 02/10/2018 JOSELUIS BORGES Ot Z85.3 PERSONAL HISTORY OF MALIGNANT NEOPLASM O 02/10/2018 JOSELUIS BORGES Ot Z86.718 PERSONAL HISTORY OF OTHER VENOUS THROMBO 02/10/2018 JOSELUIS BORGES Ot Z90.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 02/10/2018 JOSELUIS BORGES Ot Z12.31 ENCNTR SCREEN MAMMOGRAM FOR MALIGNANT NE 02/10/2018 DANY ESPINAL DO Ot 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 02/10/2018 DANY ESPINAL DO Ot 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, 02/10/2018 JOSELUIS BORGES Ot R92.8 OTH ABN AND INCONCLUSIVE FINDINGS ON DX 02/10/2018 SHEELA BANUELOS MD Ot E78.2 MIXED HYPERLIPIDEMIA 02/10/2018 SHEELA BANULEOS MD, Ot G25.0 ESSENTIAL TREMOR 02/10/2018 SHEELA BANUELOS MD Ot I10 ESSENTIAL (PRIMARY) HYPERTENSION 02/10/2018 SHEELA BANUELOS MD Ot I48.0 PAROXYSMAL ATRIAL FIBRILLATION 02/10/2018 SHEELA BANUELOS MD Ot R07.9 CHEST PAIN, UNSPECIFIED 02/10/2018 MARSHA PAL, FRANCK Stanton Ot M79.604 PAIN IN RIGHT LEG 02/10/2018 AGATHA ESPINAL BRANCH ASSISTANT Ot N28.1 CYST OF KIDNEY, ACQUIRED 02/10/2018 ESPINALAGATHA RIOS BRANCH ASSISTANT Ot R10.2 PELVIC AND PERINEAL PAIN 02/10/2018 IND[place] MOULTON, ERVIN Lanier Ot N28.1 CYST OF KIDNEY, ACQUIRED 02/10/2018 KO KENDRICK DO Ot M51.36 OTHER INTERVERTEBRAL DISC DEGENERATION, 02/10/2018 FAITH TURK Evy Ot R92.8 OTH ABN AND INCONCLUSIVE FINDINGS ON DX 02/10/2018 ROSALEEFAITH RABAGO Evy Ot E11.9 TYPE 2 DIABETES MELLITUS WITHOUT COMPLIC 02/10/2018 ROSALEE FAITH Evy Ot E78.5 HYPERLIPIDEMIA, UNSPECIFIED 02/10/2018 ROSALEE FAITH Evy Ot I10 ESSENTIAL (PRIMARY) HYPERTENSION 02/10/2018 EDNA TURKSUJATA Evy Ot Z08 ENCNTR FOR FOLLOW-UP EXAM AFTER TRTMT FO 02/10/2018 ROSALEE FAITH Evy Ot Z79.01 CORRECTION (CURRENT) USE OF ANTICOAGULANT 02/10/2018 ROSALEEEDNASUJATA Evy Ot Z79.4 BUILDING APPRAISER (CURRENT) USE OF INSULIN 02/10/2018 ROSALEE FAITH Evy Ot Z85.3 PERSONAL HISTORY OF MALIGNANT NEOPLASM O 02/10/2018 ROSALEE FAITH Evy Ot Z86.718 PERSONAL HISTORY OF OTHER VENOUS THROMBO 02/10/2018 ROSALEE FAITH Evy Ot Z90.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 02/10/2018 ROSALEE FAITH Evy Ot Z92.21 PERSONAL HISTORY OF ANTINEOPLASTIC CHEMO 02/10/2018 JOSELUIS BORGES BRANCH ASSISTANT Ot R92.8 OTH ABN AND INCONCLUSIVE FINDINGS ON DX 02/11/2018 JOSLEUIS BORGES BRANCH ASSISTANT Ot C50.911 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 02/11/2018 JOSELUIS BORGES BRANCH ASSISTANT Ot 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 02/11/2018 JOSEULIS BORGES BRANCH ASSISTANT Ot C50.911 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 02/11/2018 JOSELUIS BORGES BRANCH ASSISTANT Ot 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 02/21/2018 JOSELUIS BORGES BRANCH ASSISTANT Ot C50.911 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 02/21/2018 JOSELUIS BORGES BRANCH ASSISTANT Ot 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 02/21/2018 JOSELUIS BORGES BRANCH ASSISTANT Ot C50.911 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 02/21/2018 JOSELUIS BORGES BRANCH ASSISTANT Ot 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 03/08/2018 DEEPA MOULTON, YANG Devi Ot E11.9 TYPE 2 DIABETES MELLITUS WITHOUT COMPLIC 03/08/2018 DEEPA MOULTON, YANG Devi Ot E78.00 PURE HYPERCHOLESTEROLEMIA, UNSPECIFIED 03/08/2018 DEEPA MOULTON, YANG Devi Ot F03.90 UNSPECIFIED DEMENTIA WITHOUT BEHAVIORAL 03/08/2018 DEEPA MOULTON, YANG Devi Ot F32.9 MAJOR DEPRESSIVE DISORDER, SINGLE EPISOD 03/08/2018 DEEPA MOULTON, YANG Devi Ot F41.9 ANXIETY DISORDER, UNSPECIFIED 03/08/2018 DEEPA MOULTON, YANG Devi Ot I10 ESSENTIAL (PRIMARY) HYPERTENSION 03/08/2018 DEEPA MOULTON, YANG Devi Ot I25.10 ATHSCL HEART DISEASE OF [place] CORONARY 03/08/2018 DEEPA MOULTON, YANG Devi Ot I48.91 UNSPECIFIED ATRIAL FIBRILLATION 03/08/2018 YANG ARENAS MD Ot J44.9 CHRONIC OBSTRUCTIVE PULMONARY DISEASE, U 03/08/2018 YANG ARENAS MD Ot R04.0 EPISTAXIS 03/08/2018 YANG ARENAS MD Ot Z79.01 BUILDING APPRAISER (CURRENT) USE OF ANTICOAGULANT 03/08/2018 YANG ARENAS MD Ot Z79.4 CORRECTION (CURRENT) USE OF INSULIN 03/08/2018 YANG ARENAS MD Ot Z85.3 PERSONAL HISTORY OF MALIGNANT NEOPLASM O 03/08/2018 YANG ARENAS MD Ot Z86.711 PERSONAL HISTORY OF PULMONARY EMBOLISM 03/08/2018 YANG ARENAS MD Ot Z86.718 PERSONAL HISTORY OF OTHER VENOUS THROMBO 03/08/2018 YANG ARENAS MD Ot Z87.01 PERSONAL HISTORY OF PNEUMONIA (RECURRENT 03/08/2018 YANG ARENAS MD Ot Z87.09 PERSONAL HISTORY OF OTHER DISEASES OF TH 03/08/2018 YANG ARENAS MD Ot Z87.19 PERSONAL HISTORY OF OTHER DISEASES OF TH 03/08/2018 DEEPA MOULTON, YANG Devi Ot Z87.81 PERSONAL HISTORY OF (HEALED) TRAUMATIC F 03/08/2018 DEEPA MOULTON, YANG Devi Ot Z87.828 PERSONAL HISTORY OF OTH (HEALED) PHYSICA 03/08/2018 DEEPA MOULTON, YANG Devi Ot Z88.0 ALLERGY STATUS TO PENICILLIN 03/08/2018 DEEPA MOULTON, YANG Devi Ot Z88.2 ALLERGY STATUS TO SULFONAMIDES STATUS 03/08/2018 DEEPA MOULTON, YANG Marito Ot Z88.5 ALLERGY STATUS TO NARCOTIC AGENT STATUS 03/08/2018 DEEPA MOULTON, YANG Devi Ot Z90.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 03/08/2018 DEEPA MOULTON, YANG Marito Ot Z90.49 ACQUIRED ABSENCE OF OTHER SPECIFIED PART 03/08/2018 DEEPA MOULTON YANG Marito Ot Z90.710 ACQUIRED ABSENCE OF BOTH CERVIX AND UTER 03/08/2018 DEEPA MOULTON YANG Marito Ot Z90.89 ACQUIRED ABSENCE OF OTHER ORGANS 03/08/2018 Ot 611.89 OTHER SPECIFIED DISORDERS OF BREAST 03/08/2018 Ot V67.09 SURGERY FOLLOW-UP, OTHER SURGERY 03/08/2018 FARZAD MOULTON, MEGHA Ku Ot 786.2 COUGH 03/08/2018 Ot 729.5 PAIN IN LIMB 03/08/2018 Ot V12.51 HX-VENOUS THROMBOSIS EMBOLISM 03/08/2018 FAITH TURK Ot 174.9 MALIGN NEOPL BREAST NOS 03/08/2018 MEGHA PANDA MD Ot 453.40 ACUTE VENOUS EMBOLISM THROMBOSIS UNSP 03/08/2018 FAITH TURK Ot V10.3 HX OF BREAST MALIGNANCY 03/08/2018 FAITH TURK Ot V67.9 FOLLOW-UP EXAM NOS 03/08/2018 ERVIN OSBORNE MD Ot 593.9 RENAL URETERAL DIS NOS 03/08/2018 ERVIN OSBORNE MD Ot 753.10 CYSTIC KIDNEY DISEASE, UNSPECIFIED 03/08/2018 JOSELUIS BORGES BRANCH ASSISTANT Ot 174.9 MALIGN NEOPL BREAST NOS 03/08/2018 JOSELUIS BORGES BRANCH ASSISTANT Ot V67.9 FOLLOW-UP EXAM NOS 03/08/2018 ERVIN OSBORNE MD Ot 593.2 CYST OF KIDNEY, ACQUIRED 03/08/2018 NIRAV MOULTON, ARI Ot V72.84 EXAM PRE-OPERATIVE NOS 03/08/2018 INDIA MOULTON, ERVIN Lanier Ot 593.2 CYST OF KIDNEY, ACQUIRED 03/08/2018 FAITH TURK Evy Ot 174.9 MALIGN NEOPL BREAST NOS 03/08/2018 FAITH TURK Evy Ot V67.9 FOLLOW-UP EXAM NOS 03/08/2018 FAITH TURK Evy Ot 793.80 UNSPEC ABNORMAL MAMMOGRAM 03/08/2018 RAVEN LEO TREE KILLER Ot 729.5 PAIN IN LIMB 03/08/2018 RAVEN LEO TREE KILLER Ot 786.05 SHORTNESS OF BREATH 03/08/2018 IND[place] MOULTON, ERVIN Lanier Ot 593.2 CYST OF KIDNEY, ACQUIRED 03/08/2018 FARZAD MOULTON, MEGHA Ku Ot 428.0 CONGESTIVE HEART FAILURE NOS 03/08/2018 [place] MOULTON, ERVIN Lanier Ot 753.10 CYSTIC KIDNEY DISEASE, UNSPECIFIED 03/08/2018 ROSALEEEDNASUJATA Evy Ot V10.3 HX OF BREAST MALIGNANCY 03/08/2018 ROSALEEEDNASUJATA Evy Ot V12.51 HX-VENOUS THROMBOSIS EMBOLISM 03/08/2018 ROSALEEEDNASUJATA Evy Ot V12.55 PERSONAL HISTORY OF PULMONARY EMBOLISM 03/08/2018 ROSALEE FAITH Evy Ot V45.71 ACQUIRED ABSENCE OF BREAST AND NIPPLE 03/08/2018 ROSALEE FAITH Evy Ot V58.61 ANTICOAGULANTS,LT,CURRENT USE 03/08/2018 ROSALEE FAITH Evy Ot V58.69 OTH MED,LT,CURRENT USE 03/08/2018 ROSALEE FAITH Evy Ot V67.2 CHEMOTHERAPY FOLLOW-UP 03/08/2018 ROSALEEFAITH Ot 174.9 MALIGN NEOPL BREAST NOS 03/08/2018 [...] MON 03/08/2018 MEGHA PANDA MD Ot Z79.2 BUILDING APPRAISER (CURRENT) USE OF ANTIBIOTICS 03/08/2018 AGATHA ESPINAL [...] TRTMT FO 03/08/2018 JOSELUIS BORGES Ot Z79.01 BUILDING APPRAISER (CURRENT) USE OF ANTICOAGULANT 03/08/2018 JOSELUIS BORGES Ot Z85.3 PERSONAL HISTORY OF MALIGNANT NEOPLASM O 03/08/2018 JOSELUIS BORGES Ot Z86.718 PERSONAL HISTORY OF OTHER VENOUS THROMBO 03/08/2018 JOSELUIS BORGES Ot Z90.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 03/08/2018 JOSELUIS BORGES Ot Z12.31 ENCNTR SCREEN MAMMOGRAM FOR MALIGNANT NE 03/08/2018 DANY ESPINAL DO Ot F02.81 DEMENTIA IN OT DISEASES CLASSD ELSWHR W 03/08/2018 DANY ESPINAL DO Ot 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, 03/08/2018 JOSELUIS BORGES Ot R92.8 OT ABN AND INCONCLUSIVE FINDINGS ON DX 03/08/2018 SHEELA BANUELOS MD, Ot E78.2 MIXED HYPERLIPIDEMIA 03/08/2018 SHEELA BANUELOS MD, Ot G25.0 ESSENTIAL TREMOR 03/08/2018 SHEELA BANUELOS MD Ot I10 ESSENTIAL (PRIMARY) HYPERTENSION 03/08/2018 LAKISHA MD, BASHAR J Ot I48.0 PAROXYSMAL ATRIAL FIBRILLATION 03/08/2018 LAKISHA MOULTON, SHEELA Short Ot R07.9 CHEST PAIN, UNSPECIFIED 03/08/2018 MARSHA PAL, FRANCK Stanton Ot M79.604 PAIN IN RIGHT LEG 03/08/2018 AGATHA ESPINAL BRANCH ASSISTANT Ot N28.1 CYST OF KIDNEY, ACQUIRED 03/08/2018 ESPINALAGATHA CASTRO L BRANCH ASSISTANT Ot R10.2 PELVIC AND PERINEAL PAIN 03/08/2018 INDIA MOULTON, ERVIN Lanier Ot N28.1 CYST OF KIDNEY, ACQUIRED 03/08/2018 MIREILEL DO KO Aleman Ot M51.36 OTHER INTERVERTEBRAL DISC DEGENERATION, 03/08/2018 ROSALEEFAITH RABAGO Evy Ot R92.8 OTH ABN AND INCONCLUSIVE FINDINGS ON DX 03/08/2018 ROSALEEEDNASUJATA Evy Ot E11.9 TYPE 2 DIABETES MELLITUS WITHOUT COMPLIC 03/08/2018 EDNA TURKSUJATA Evy Ot E78.5 HYPERLIPIDEMIA, UNSPECIFIED 03/08/2018 ROSALEE FAITH Evy Ot I10 ESSENTIAL (PRIMARY) HYPERTENSION 03/08/2018 ROSALEE FAITH Evy Ot Z08 ENCNTR FOR FOLLOW-UP EXAM AFTER TRTMT FO 03/08/2018 ROSALEE FAITH Evy Ot Z79.01 CORRECTION (CURRENT) USE OF ANTICOAGULANT 03/08/2018 ROSALEE FAITH Evy Ot Z79.4 CORRECTION (CURRENT) USE OF INSULIN 03/08/2018 ROSALEE FAITH Evy Ot Z85.3 PERSONAL HISTORY OF MALIGNANT NEOPLASM O 03/08/2018 ROSALEE FAITH Evy Ot Z86.718 PERSONAL HISTORY OF OTHER VENOUS THROMBO 03/08/2018 ROSALEE FAITH Evy Ot Z90.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 03/08/2018 ROSALEE FAITH Evy Ot Z92.21 PERSONAL HISTORY OF ANTINEOPLASTIC CHEMO 03/08/2018 JOSELUIS BORGES BRANCH ASSISTANT Ot C50.911 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 03/08/2018 JOSELUIS BORGES BRANCH ASSISTANT Ot 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 03/08/2018 DEEPA MOULTON, YANG Devi Ot E11.9 TYPE 2 DIABETES MELLITUS WITHOUT COMPLIC 03/08/2018 DEEPA MOULTON, YANG Devi Ot E78.00 PURE HYPERCHOLESTEROLEMIA, UNSPECIFIED 03/08/2018 DEEPA MOULTON, YANG Devi Ot F03.90 UNSPECIFIED DEMENTIA WITHOUT BEHAVIORAL 03/08/2018 DEEPA MOULTON, YANG Devi Ot F32.9 MAJOR DEPRESSIVE DISORDER, SINGLE EPISOD 03/08/2018 DEEPA MOULTON, YANG Devi Ot F41.9 ANXIETY DISORDER, UNSPECIFIED 03/08/2018 DEEPA MOULTON, YANG Devi Ot G47.30 SLEEP APNEA, UNSPECIFIED 03/08/2018 DEEPA MOULTON, YANG Devi Ot I10 ESSENTIAL (PRIMARY) HYPERTENSION 03/08/2018 DEEPA MOULTON, YANG eDvi Ot I25.10 ATHSCL HEART DISEASE OF [place] CORONARY 03/08/2018 DEEPA MOULTON, YANG Devi Ot I48.91 UNSPECIFIED ATRIAL FIBRILLATION 03/08/2018 DEEPA MOULTON, YANG Devi Ot J44.9 CHRONIC OBSTRUCTIVE PULMONARY DISEASE, U 03/08/2018 YANG ARENAS MD Ot R04.0 EPISTAXIS 03/08/2018 DEEPA MOULTON, YANG Devi Ot Z79.01 CORRECTION (CURRENT) USE OF ANTICOAGULANT 03/08/2018 YANG ARENAS MD Ot Z79.4 CORRECTION (CURRENT) USE OF INSULIN 03/08/2018 YANG ARENAS MD Ot Z85.3 PERSONAL HISTORY OF MALIGNANT NEOPLASM O 03/08/2018 YANG ARENAS MD Ot Z86.711 PERSONAL HISTORY OF PULMONARY EMBOLISM 03/08/2018 YANG ARENAS MD Ot Z86.718 PERSONAL HISTORY OF OTHER VENOUS THROMBO 03/08/2018 YANG ARENAS MD Ot Z87.19 PERSONAL HISTORY OF OTHER DISEASES OF TH 03/08/2018 YANG ARENAS MD Ot Z87.2 PERSONAL HISTORY OF DISEASES OF THE SKIN 03/08/2018 YANG ARENAS MD Ot Z87.448 PERSONAL HISTORY OF OTHER DISEASES OF UR 03/08/2018 YANG ARENAS MD Ot Z87.81 PERSONAL HISTORY OF (HEALED) TRAUMATIC F 03/08/2018 YANG ARENAS MD Ot Z87.828 PERSONAL HISTORY OF OTH (HEALED) PHYSICA 03/08/2018 YANG ARENAS MD Ot Z88.0 ALLERGY STATUS TO PENICILLIN 03/08/2018 YANG ARENAS MD Ot Z88.2 ALLERGY STATUS TO SULFONAMIDES STATUS 03/08/2018 YANG ARENAS MD Ot Z88.5 ALLERGY STATUS TO NARCOTIC AGENT STATUS 03/08/2018 DEEPA MOULTON, YANG Marito Ot Z88.8 ALLERGY STATUS TO OTH DRUG/MEDS/BIOL SUB 03/08/2018 DEEPA MOULTON YANG Marito Ot Z90.10 ACQUIRED ABSENCE OF UNSPECIFIED BREAST A 03/08/2018 YANG ARENAS MD Ot Z90.49 ACQUIRED ABSENCE OF OTHER SPECIFIED PART 03/08/2018 YANG ARENAS MD Ot Z90.710 ACQUIRED ABSENCE OF BOTH CERVIX AND UTER 03/08/2018 DEEPA MOULTON YANG Marito Ot Z90.89 ACQUIRED ABSENCE OF OTHER ORGANS 03/08/2018 DEEPA MOULTON, YANG Devi Ot Z98.890 OTHER SPECIFIED POSTPROCEDURAL STATES 03/10/2018 YANG ARENAS MD Ot E11.9 TYPE 2 DIABETES MELLITUS WITHOUT COMPLIC 03/10/2018 YANG ARENAS MD Ot E78.00 PURE HYPERCHOLESTEROLEMIA, UNSPECIFIED 03/10/2018 DEEPA MOULTON YANG Marito Ot F03.90 UNSPECIFIED DEMENTIA WITHOUT BEHAVIORAL 03/10/2018 YANG ARENAS MD Ot F32.9 MAJOR DEPRESSIVE DISORDER, SINGLE EPISOD 03/10/2018 DEEPA MOULTON YANG Marito Ot F41.9 ANXIETY DISORDER, UNSPECIFIED 03/10/2018 YANG ARENAS MD Ot I10 ESSENTIAL (PRIMARY) HYPERTENSION 03/10/2018 YANG ARENAS MD Ot I25.10 ATHSCL HEART DISEASE OF [place] CORONARY 03/10/2018 DEEPA MOULTON YANG Marito Ot I48.91 UNSPECIFIED ATRIAL FIBRILLATION 03/10/2018 YANG ARENAS MD Ot J44.9 CHRONIC OBSTRUCTIVE PULMONARY DISEASE, U 03/10/2018 YANG ARENAS MD Ot R04.0 EPISTAXIS 03/10/2018 YANG ARENAS MD Ot Z79.01 CORRECTION (CURRENT) USE OF ANTICOAGULANT 03/10/2018 YANG ARENAS MD Ot Z79.4 BUILDING APPRAISER (CURRENT) USE OF INSULIN 03/10/2018 YANG ARENAS MD Ot Z85.3 PERSONAL HISTORY OF MALIGNANT NEOPLASM O 03/10/2018 YANG ARENAS MD Ot Z86.711 PERSONAL HISTORY OF PULMONARY EMBOLISM 03/10/2018 YANG ARENAS MD Ot Z86.718 PERSONAL HISTORY OF OTHER VENOUS THROMBO 03/10/2018 DEEPA MOULTON YANG Devi Ot Z87.01 PERSONAL HISTORY OF PNEUMONIA (RECURRENT 03/10/2018 YANG ARNEAS MD Ot Z87.09 PERSONAL HISTORY OF OTHER DISEASES OF TH 03/10/2018 YANG ARENAS MD Ot Z87.19 PERSONAL HISTORY OF OTHER DISEASES OF TH 03/10/2018 YANG ARENAS MD Ot Z87.81 PERSONAL HISTORY OF (HEALED) TRAUMATIC F 03/10/2018 YANG ARENAS MD Ot Z87.828 PERSONAL HISTORY OF OTH (HEALED) PHYSICA 03/10/2018 DEEPA MOULTON, YANG Devi Ot Z88.0 ALLERGY STATUS TO PENICILLIN 03/10/2018 [...] DISORDER, UNSPECIFIED 03/10/2018 YANG ARENAS MD Ot G47.30 SLEEP APNEA, UNSPECIFIED 03/10/2018 YANG ARENAS MD Ot I10 ESSENTIAL (PRIMARY) HYPERTENSION 03/10/2018 YANG ARENAS MD Ot I25.10 ATHSCL HEART DISEASE OF [place] CORONARY 03/10/2018 YANG ARENAS MD Ot I48.91 UNSPECIFIED ATRIAL FIBRILLATION 03/10/2018 YANG ARENAS MD Ot J44.9 CHRONIC OBSTRUCTIVE PULMONARY DISEASE, U 03/10/2018 YANG ARENAS MD Ot R04.0 EPISTAXIS 03/10/2018 YANG ARENAS MD Ot Z79.01 CORRECTION (CURRENT) USE OF ANTICOAGULANT 03/10/2018 YANG ARENAS MD Ot Z79.4 CORRECTION (CURRENT) USE OF INSULIN 03/10/2018 YANG ARENAS [...] ABSENCE OF UNSPECIFIED BREAST A 03/10/2018 YANG RAENAS MD Ot Z90.49 ACQUIRED ABSENCE OF OTHER SPECIFIED PART 03/10/2018 YANG ARENAS MD Ot Z90.710 ACQUIRED ABSENCE OF BOTH CERVIX AND UTER 03/10/2018 YANG ARENAS MD Ot Z90.89 ACQUIRED ABSENCE OF OTHER ORGANS 03/10/2018 YANG ARENAS MD Ot Z98.890 OTHER SPECIFIED POSTPROCEDURAL STATES 03/10/2018 YANG ARENAS MD Ot E11.9 TYPE [...] Devi Ot G47.30 SLEEP APNEA, UNSPECIFIED 03/10/2018 DEEPA MOULTON, YANG Devi Ot I10 ESSENTIAL (PRIMARY) HYPERTENSION 03/10/2018 DEEPA MOULTON, YANG Devi Ot I25.10 ATHSCL HEART DISEASE OF [place] CORONARY 03/10/2018 DEEPA MOULTON, YANG Devi Ot I48.91 UNSPECIFIED ATRIAL FIBRILLATION 03/10/2018 DEEPA MOULTON, YANG Devi Ot J44.9 CHRONIC OBSTRUCTIVE PULMONARY DISEASE, U 03/10/2018 YANG ARENAS MD Ot R04.0 EPISTAXIS 03/10/2018 YANG ARENAS MD Ot Z79.01 CORRECTION (CURRENT) USE OF ANTICOAGULANT 03/10/2018 YANG ARENAS MD Ot Z79.4 BUILDING APPRAISER (CURRENT) USE OF INSULIN 03/10/2018 YANG ARENAS [...] MD Ot Z98.890 OTHER SPECIFIED POSTPROCEDURAL STATES 03/11/2018 MADHAVI MOULTON, BRIAN Dangelo Ot E11.9 TYPE 2 DIABETES MELLITUS WITHOUT COMPLIC 03/11/2018 BRIAN HENDRICKSON MD Ot E78.00 PURE HYPERCHOLESTEROLEMIA, UNSPECIFIED 03/11/2018 BRIAN HENDRICKSON MD Ot E87.70 FLUID OVERLOAD, UNSPECIFIED 03/11/2018 BRIAN HENDRICKSON MD Ot F03.90 UNSPECIFIED DEMENTIA WITHOUT BEHAVIORAL 03/11/2018 BRIAN HENDRICKSON MD Ot F32.9 MAJOR DEPRESSIVE DISORDER, SINGLE EPISOD 03/11/2018 BRIAN HENDRICKSON MD Ot F41.9 ANXIETY DISORDER, UNSPECIFIED 03/11/2018 BRIAN HENDRICKSON MD Ot G47.30 SLEEP APNEA, UNSPECIFIED 03/11/2018 BRIAN HENDRICKSON MD Ot I10 ESSENTIAL (PRIMARY) HYPERTENSION 03/11/2018 BRIAN HENDRICKSON MD Ot I25.10 ATHSCL HEART DISEASE OF [place] CORONARY 03/11/2018 BRIAN HENDRICKSON MD Ot I48.91 UNSPECIFIED ATRIAL FIBRILLATION 03/11/2018 BRIAN HENDRICKSON MD Ot J44.9 CHRONIC OBSTRUCTIVE PULMONARY DISEASE, U 03/11/2018 BRIAN HENDRICKSON MD Ot R10.13 EPIGASTRIC PAIN 03/11/2018 BRIAN HENDRICKSON MD Ot R11.2 NAUSEA WITH VOMITING, UNSPECIFIED 03/11/2018 BRIAN HENDRICKSON MD, Ot Z79.01 CORRECTION (CURRENT) USE OF ANTICOAGULANT 03/11/2018 BRIAN HENDRICKSON MD, Ot Z79.4 CORRECTION (CURRENT) USE OF INSULIN 03/11/2018 BRIAN HENDRICKSON MD Ot Z80.51 FAMILY HISTORY OF MALIGNANT NEOPLASM OF 03/11/2018 BRIAN HENDRICKSON MD, Ot Z85.3 PERSONAL HISTORY OF MALIGNANT NEOPLASM O 03/11/2018 BRIAN HENDRICKSON MD, Ot Z86.718 PERSONAL HISTORY OF OTHER VENOUS THROMBO 03/11/2018 BRIAN HENDRICKSON MD, Ot Z87.19 PERSONAL HISTORY OF OTHER DISEASES OF TH 03/11/2018 BRIAN HENDRICKSON MD, Ot Z87.440 PERSONAL HISTORY OF URINARY (TRACT) INFE 03/11/2018 BRIAN HENDRICKSON MD Ot Z88.0 ALLERGY STATUS TO PENICILLIN 03/11/2018 BRIAN HENDRICKSON MD Ot Z88.2 ALLERGY STATUS TO SULFONAMIDES STATUS 03/11/2018 BRIAN HENDRICKSON MD, Ot Z88.5 ALLERGY STATUS TO NARCOTIC AGENT STATUS 03/11/2018 BRIAN HENDRICKSON MD, Ot Z88.8 ALLERGY STATUS TO OTH DRUG/MEDS/BIOL SUB 03/11/2018 BRIAN HENDRICKSON MD Ot Z90.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 03/11/2018 BRIAN HENDRICKSON MD Ot Z90.49 ACQUIRED ABSENCE OF OTHER SPECIFIED PART 03/11/2018 BRIAN HENDRICKSON MD, Ot Z90.710 ACQUIRED ABSENCE OF BOTH CERVIX AND UTER 03/11/2018 BRIAN HENDRICKSON MD Ot Z90.81 ACQUIRED ABSENCE OF SPLEEN 03/11/2018 BRIAN HENDRICKSON MD, Ot Z90.89 ACQUIRED ABSENCE OF OTHER ORGANS 03/11/2018 BRIAN HENDRICKSON MD, Ot Z92.21 PERSONAL HISTORY OF ANTINEOPLASTIC CHEMO 03/13/2018 BRIAN HENDRICKSON MD Ot E11.9 TYPE 2 DIABETES MELLITUS WITHOUT COMPLIC 03/13/2018 BRIAN HENDRICKSON MD Ot E78.00 PURE HYPERCHOLESTEROLEMIA, UNSPECIFIED 03/13/2018 BRIAN HENDRICKSON MD Ot E87.70 FLUID OVERLOAD, UNSPECIFIED 03/13/2018 BRIAN HENDRICKSON MD Ot F03.90 UNSPECIFIED DEMENTIA WITHOUT BEHAVIORAL 03/13/2018 BRIAN HENDRICKSON MD Ot F32.9 MAJOR DEPRESSIVE DISORDER, SINGLE EPISOD 03/13/2018 BRIAN HENDRICKSON MD Ot F41.9 ANXIETY DISORDER, UNSPECIFIED 03/13/2018 BRIAN HENDRICKSON MD Ot G47.30 SLEEP APNEA, UNSPECIFIED 03/13/2018 BRIAN HENDRICKSON MD Ot I10 ESSENTIAL (PRIMARY) HYPERTENSION 03/13/2018 BRIAN HENDRICKSON MD Ot I25.10 ATHSCL HEART DISEASE OF [place] CORONARY 03/13/2018 BRIAN HENDRICKSON MD Ot I48.91 UNSPECIFIED ATRIAL FIBRILLATION 03/13/2018 BRIAN HENDRICKSON MD Ot J44.9 CHRONIC OBSTRUCTIVE PULMONARY DISEASE, U 03/13/2018 BRIAN HENDRICKSON MD Ot R10.13 EPIGASTRIC PAIN 03/13/2018 BRIAN HENDRICKSON MD Ot R11.2 NAUSEA WITH VOMITING, UNSPECIFIED 03/13/2018 BRIAN HENDRICKSON MD Ot Z79.01 CORRECTION (CURRENT) USE OF ANTICOAGULANT 03/13/2018 BRIAN HENDRICKSON MD Ot Z79.4 BUILDING APPRAISER (CURRENT) USE OF INSULIN 03/13/2018 BRIAN HENDRICKSON MD Ot Z80.51 FAMILY HISTORY OF MALIGNANT NEOPLASM OF 03/13/2018 BRIAN HENDRICKSON MD Ot Z85.3 PERSONAL HISTORY OF MALIGNANT NEOPLASM O 03/13/2018 BRIAN HENDRICKSON MD Ot Z86.718 PERSONAL HISTORY OF OTHER VENOUS THROMBO 03/13/2018 BRIAN HENDRICKSON MD Ot Z87.19 PERSONAL HISTORY OF OTHER DISEASES OF TH 03/13/2018 BRIAN HENDRICKSON MD Ot Z87.440 PERSONAL HISTORY OF URINARY (TRACT) INFE 03/13/2018 BRIAN HENDRICKSON MD Ot Z88.0 ALLERGY STATUS TO PENICILLIN 03/13/2018 BRIAN HENDRICKSON MD Ot Z88.2 ALLERGY STATUS TO SULFONAMIDES STATUS 03/13/2018 BRIAN HENDRICKSON MD, Ot Z88.5 ALLERGY STATUS TO NARCOTIC AGENT STATUS 03/13/2018 BRIAN HENDRICKSON MD Ot Z88.8 ALLERGY STATUS TO OTH DRUG/MEDS/BIOL SUB 03/13/2018 BRIAN HENDRICKSON MD Ot Z90.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 03/13/2018 BRIAN HENDRICKSON MD Ot Z90.49 ACQUIRED ABSENCE OF OTHER SPECIFIED PART 03/13/2018 BRIAN HENDRICKSON MD Ot Z90.710 ACQUIRED ABSENCE OF BOTH CERVIX AND UTER 03/13/2018 BRIAN HENDRICKSON MD Ot Z90.81 ACQUIRED ABSENCE OF SPLEEN 03/13/2018 BRIAN HENDRICKSON MD Ot Z90.89 ACQUIRED ABSENCE OF OTHER ORGANS 03/13/2018 BRIAN HENDRICKSON MD Ot Z92.21 PERSONAL HISTORY OF ANTINEOPLASTIC CHEMO 03/13/2018 FAITH TURK Ot E11.9 TYPE 2 DIABETES MELLITUS WITHOUT COMPLIC 03/13/2018 FAITH TURK Ot E78.5 HYPERLIPIDEMIA, UNSPECIFIED 03/13/2018 FAITH TURK Ot I10 ESSENTIAL (PRIMARY) HYPERTENSION 03/13/2018 FAITH TURK Ot Z08 ENCNTR FOR FOLLOW-UP EXAM AFTER TRTMT FO 03/13/2018 FAITH TURK Ot Z79.01 CORRECTION (CURRENT) USE OF ANTICOAGULANT 03/13/2018 FAITH TURK Ot Z79.4 CORRECTION (CURRENT) USE OF INSULIN 03/13/2018 FAITH TURK Ot Z85.3 PERSONAL HISTORY OF MALIGNANT NEOPLASM O 03/13/2018 FAITH TURK Ot Z86.718 PERSONAL HISTORY OF OTHER VENOUS THROMBO 03/13/2018 FAITH TURK Ot Z90.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 03/13/2018 FAITH TURK Ot Z92.21 PERSONAL HISTORY OF ANTINEOPLASTIC CHEMO 03/13/2018 KAYY MOULTON, CORBY Duncan Ot R04.0 EPISTAXIS 03/13/2018 KAYY MOULTON, CORBY Duncan Ot Z01.818 ENCOUNTER FOR OTHER PREPROCEDURAL EXAMIN 03/13/2018 KAYY MOULTON, CORBY Duncan Ot Z88.1 ALLERGY STATUS TO OTHER ANTIBIOTIC AGENT 03/14/2018 DEEPA MOULTON, YANG Devi Ot E11.9 TYPE 2 DIABETES MELLITUS WITHOUT COMPLIC 03/14/2018 DEEPA MOULTON, YANG Devi Ot E78.00 PURE HYPERCHOLESTEROLEMIA, UNSPECIFIED 03/14/2018 DEEPA MOULTON, YANG Devi Ot F03.90 UNSPECIFIED DEMENTIA WITHOUT BEHAVIORAL 03/14/2018 DEEPA MOULTON, YANG Devi Ot F32.9 MAJOR DEPRESSIVE DISORDER, SINGLE EPISOD 03/14/2018 DEEPA MOULTON, YANG Devi Ot F41.9 ANXIETY DISORDER, UNSPECIFIED 03/14/2018 DEEPA MOULTON, YANG Devi Ot I10 ESSENTIAL (PRIMARY) HYPERTENSION 03/14/2018 DEEPA MOULTON, YANG Devi Ot I25.10 ATHSCL HEART DISEASE OF [place] CORONARY 03/14/2018 DEEPA MOULTON, YANG Devi Ot I48.91 UNSPECIFIED ATRIAL FIBRILLATION 03/14/2018 DEEPA MOULTON, YANG Devi Ot J44.9 CHRONIC OBSTRUCTIVE PULMONARY DISEASE, U 03/14/2018 DEEPA MOULTON, YANG Devi Ot R04.0 EPISTAXIS 03/14/2018 DEEPA MOULTON, YANG Devi Ot Z79.01 BUILDING APPRAISER (CURRENT) USE OF ANTICOAGULANT 03/14/2018 YANG ARENAS MD Ot Z79.4 CORRECTION (CURRENT) USE OF INSULIN 03/14/2018 DEEPA MOULTON, YANG Devi Ot Z85.3 PERSONAL HISTORY OF MALIGNANT NEOPLASM O 03/14/2018 DEEPA MOULTON, YANG Devi Ot Z86.711 PERSONAL HISTORY OF PULMONARY EMBOLISM 03/14/2018 YANG ARENAS MD Ot Z86.718 PERSONAL HISTORY OF OTHER VENOUS THROMBO 03/14/2018 DEEPA MOULTON, YANG Devi Ot Z87.01 PERSONAL HISTORY OF PNEUMONIA (RECURRENT 03/14/2018 DEEPA MOULTON, YANG Devi Ot Z87.09 PERSONAL HISTORY OF OTHER DISEASES OF TH 03/14/2018 DEEPA MOULTON, YANG Devi Ot Z87.19 PERSONAL HISTORY OF OTHER DISEASES OF TH 03/14/2018 DEEPA MOULTON, YANG Devi Ot Z87.81 PERSONAL HISTORY OF (HEALED) TRAUMATIC F 03/14/2018 DEEPA MOULTON, YANG Devi Ot Z87.828 PERSONAL HISTORY OF OTH (HEALED) PHYSICA 03/14/2018 YANG ARENAS MD Ot Z88.0 ALLERGY STATUS TO PENICILLIN 03/14/2018 YANG ARENAS MD Ot Z88.2 ALLERGY STATUS TO SULFONAMIDES STATUS 03/14/2018 YANG ARENAS MD Ot Z88.5 ALLERGY STATUS TO NARCOTIC AGENT STATUS 03/14/2018 YANG ARENAS MD Ot Z90.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 03/14/2018 YANG ARENAS MD Ot Z90.49 ACQUIRED ABSENCE OF OTHER SPECIFIED PART 03/14/2018 YANG ARENAS MD Ot Z90.710 ACQUIRED ABSENCE OF BOTH CERVIX AND UTER 03/14/2018 YANG ARENAS MD Ot Z90.89 ACQUIRED ABSENCE OF OTHER ORGANS 03/14/2018 CORBY SULTANA MD Ot E11.9 TYPE 2 DIABETES MELLITUS WITHOUT COMPLIC 03/14/2018 CORBY SULTANA MD Ot I10 ESSENTIAL (PRIMARY) HYPERTENSION 03/14/2018 CORBY SULTANA MD Ot I48.91 UNSPECIFIED ATRIAL FIBRILLATION 03/14/2018 CORBY SULTANA MD Ot K21.9 GASTRO-ESOPHAGEAL REFLUX DISEASE WITHOUT 03/14/2018 CORBY SULTANA MD Ot R04.0 EPISTAXIS 03/14/2018 CORBY SULTANA MD Ot Z79.01 CORRECTION (CURRENT) USE OF ANTICOAGULANT 03/14/2018 CORBY SULTANA MD Ot Z79.4 BUILDING APPRAISER (CURRENT) USE OF INSULIN 03/14/2018 CORBY SULTANA MD Ot Z79.899 OTHER CORRECTION (CURRENT) DRUG THERAPY 03/14/2018 CORBY SULTANA MD Ot Z85.3 PERSONAL HISTORY OF MALIGNANT NEOPLASM O 03/14/2018 CORBY SULTANA MD Ot R04.0 EPISTAXIS 03/14/2018 CORBY SULTANA MD Ot Z01.818 ENCOUNTER FOR OTHER PREPROCEDURAL EXAMIN 03/14/2018 CORBY SULTANA MD Ot Z88.1 ALLERGY STATUS TO OTHER ANTIBIOTIC AGENT 03/14/2018 CORBY SULTANA MD Ot R04.0 EPISTAXIS 03/14/2018 CORBY SULTANA MD Ot Z01.818 ENCOUNTER FOR OTHER PREPROCEDURAL EXAMIN 03/14/2018 CORBY SULTANA MD Ot Z88.1 ALLERGY STATUS TO OTHER ANTIBIOTIC AGENT 03/16/2018 NELLY SMITH DO Ot E11.9 TYPE 2 DIABETES MELLITUS WITHOUT COMPLIC 03/16/2018 SARAH CHAUHAN NELLY Cricket Ot E78.00 PURE HYPERCHOLESTEROLEMIA, UNSPECIFIED 03/16/2018 SARAH NELLY Cricket Ot F03.90 UNSPECIFIED DEMENTIA WITHOUT BEHAVIORAL 03/16/2018 SARAH NELLY Cricket Ot F32.9 MAJOR DEPRESSIVE DISORDER, SINGLE EPISOD 03/16/2018 SARAH NELLY Cricket Ot F41.9 ANXIETY DISORDER, UNSPECIFIED 03/16/2018 SARAH NELLY Cricket Ot G47.30 SLEEP APNEA, UNSPECIFIED 03/16/2018 SARAH NELLY Cricket Ot G89.18 OTHER ACUTE POSTPROCEDURAL PAIN 03/16/2018 SARAH NELLY K Ot I10 ESSENTIAL (PRIMARY) HYPERTENSION 03/16/2018 SARAH NELLY K Ot I25.10 ATHSCL HEART DISEASE OF [place] CORONARY 03/16/2018 SARAH DO NELLY K Ot I48.91 UNSPECIFIED ATRIAL FIBRILLATION 03/16/2018 SARAH DO NELLY K Ot J31.0 CHRONIC RHINITIS 03/16/2018 SARAH DO NELLY K Ot J44.9 CHRONIC OBSTRUCTIVE PULMONARY DISEASE, U 03/16/2018 SARAH DO NELLY K Ot Z79.4 CORRECTION (CURRENT) USE OF INSULIN 03/16/2018 SARAH DO NELLY K Ot Z80.51 FAMILY HISTORY OF MALIGNANT NEOPLASM OF 03/16/2018 SARAH NELLY CHAUHAN Ot Z85.3 PERSONAL HISTORY OF MALIGNANT NEOPLASM O 03/16/2018 SARAH DO NELLY K Ot Z86.718 PERSONAL HISTORY OF OTHER VENOUS THROMBO 03/16/2018 SARAH NELLY CHAUHAN Ot Z87.01 PERSONAL HISTORY OF PNEUMONIA (RECURRENT 03/16/2018 SARAH NELLY CHAUHAN Ot Z87.19 PERSONAL HISTORY OF OTHER DISEASES OF TH 03/16/2018 SARAH NELLY CHAUHAN Ot Z87.440 PERSONAL HISTORY OF URINARY (TRACT) INFE 03/16/2018 NELLY SMITH DO Ot Z88.0 ALLERGY STATUS TO PENICILLIN 03/16/2018 SARAH CELI CHAUHANA Cricket Ot Z88.2 ALLERGY STATUS TO SULFONAMIDES STATUS 03/16/2018 SARAH NELLY CHAUHAN Ot Z88.5 ALLERGY STATUS TO NARCOTIC AGENT STATUS 03/16/2018 SARAH NELLY CHAUHAN Ot Z88.8 ALLERGY STATUS TO OTH DRUG/MEDS/BIOL SUB 03/16/2018 SARAH NELLY Cricket Ot Z90.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 03/16/2018 SARAH NELLY K Ot Z90.49 ACQUIRED ABSENCE OF OTHER SPECIFIED PART 03/16/2018 SARAH NELLY K Ot Z90.710 ACQUIRED ABSENCE OF BOTH CERVIX AND UTER 03/16/2018 SARAH NELLY K Ot Z90.81 ACQUIRED ABSENCE OF SPLEEN 03/16/2018 [facility] NELLY K Ot Z90.89 ACQUIRED ABSENCE OF OTHER ORGANS 03/16/2018 SARAH NELLY K Ot Z98.890 OTHER SPECIFIED POSTPROCEDURAL STATES 03/18/2018 SARAH NELLY K Ot E11.9 TYPE 2 DIABETES MELLITUS WITHOUT COMPLIC 03/18/2018 SARAH NELLY Cricket Ot E78.00 PURE HYPERCHOLESTEROLEMIA, UNSPECIFIED 03/18/2018 SARAH NELLY K Ot F03.90 UNSPECIFIED DEMENTIA WITHOUT BEHAVIORAL 03/18/2018 SARAH NELLY CHAUHAN Ot F32.9 MAJOR DEPRESSIVE DISORDER, SINGLE EPISOD 03/18/2018 SARAH NELLY Ot F41.9 ANXIETY DISORDER, UNSPECIFIED 03/18/2018 [facility] NELLY K Ot G47.30 SLEEP APNEA, UNSPECIFIED 03/18/2018 SARAH NELLY K Ot G89.18 OTHER ACUTE POSTPROCEDURAL PAIN 03/18/2018 SARAH DO NELLY Cricket Ot I10 ESSENTIAL (PRIMARY) HYPERTENSION 03/18/2018 SARAH DO NELLY K Ot I25.10 ATHSCL HEART DISEASE OF [place] CORONARY 03/18/2018 SARAH NELLY CHAUHAN Ot I48.91 UNSPECIFIED ATRIAL FIBRILLATION 03/18/2018 SARAH CELI CHAUHANA Cricket Ot J31.0 CHRONIC RHINITIS 03/18/2018 SARAH CELI CHAUHANA Cricket Ot J44.9 CHRONIC OBSTRUCTIVE PULMONARY DISEASE, U 03/18/2018 SARAH NELLY CHAUHAN Ot Z79.4 CORRECTION (CURRENT) USE OF INSULIN 03/18/2018 SARAH CELI CHAUHANA Cricket Ot Z80.51 FAMILY HISTORY OF MALIGNANT NEOPLASM OF 03/18/2018 NELLY SMITH DO Ot Z85.3 PERSONAL HISTORY OF MALIGNANT NEOPLASM O 03/18/2018 SARAH NELLY CHAUHAN Ot Z86.718 PERSONAL HISTORY OF OTHER VENOUS THROMBO 03/18/2018 NELLY SMITH DO Ot Z87.01 PERSONAL HISTORY OF PNEUMONIA (RECURRENT 03/18/2018 SARAH CHAUHAN NELLY Harley Ot Z87.19 PERSONAL HISTORY OF OTHER DISEASES OF TH 03/18/2018 SARAH CHAUHAN NELLY Cricket Ot Z87.440 PERSONAL HISTORY OF URINARY (TRACT) INFE 03/18/2018 SARAH CHAUHAN NELLY Harley Ot Z88.0 ALLERGY STATUS TO PENICILLIN 03/18/2018 SARAH CHAUHAN NELLY Cricket Ot Z88.2 ALLERGY STATUS TO SULFONAMIDES STATUS 03/18/2018 SARAH CHAUHAN NELLY Harley Ot Z88.5 ALLERGY STATUS TO NARCOTIC AGENT STATUS 03/18/2018 SARAH CHAUHAN NELLY Cricket Ot Z88.8 ALLERGY STATUS TO OTH DRUG/MEDS/BIOL SUB 03/18/2018 SARAH CHAUHAN NELLY Cricket Ot Z90.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 03/18/2018 SARAH CHAUHAN NELLY Cricket Ot Z90.49 ACQUIRED ABSENCE OF OTHER SPECIFIED PART 03/18/2018 SARAH CHAUHAN NELLY Cricket Ot Z90.710 ACQUIRED ABSENCE OF BOTH CERVIX AND UTER 03/18/2018 SARAH CHAUHAN NELLY Cricket Ot Z90.81 ACQUIRED ABSENCE OF SPLEEN 03/18/2018 SARAH CHAUHAN NELLY Cricket Ot Z90.89 ACQUIRED ABSENCE OF OTHER ORGANS 03/18/2018 SARAH CHAUHAN NELLY Cricket Ot Z98.890 OTHER SPECIFIED POSTPROCEDURAL STATES 03/23/2018 CORBY SULTANA MD Ot R04.0 EPISTAXIS 03/23/2018 CORBY SULTANA MD Ot Z01.818 ENCOUNTER FOR OTHER PREPROCEDURAL EXAMIN 03/23/2018 CORBY SULTANA MD Ot Z88.1 ALLERGY STATUS TO OTHER ANTIBIOTIC AGENT 03/31/2018 DANY ESPINAL DO, Ot J32.9 CHRONIC SINUSITIS, UNSPECIFIED 04/03/2018 DANY ESPINAL DO, Ot J32.9 CHRONIC SINUSITIS, UNSPECIFIED 04/10/2018 DANY ESPINAL DO, Ot J32.9 CHRONIC SINUSITIS, UNSPECIFIED Procedures Code Description Performed By Performed On 88.72 DX ULTRASOUND-HEART 12/30/2012 99.62 HEART COUNTERSHOCK NEC 12/30/2012 37.22 LEFT HEART CARDIAC CATH 11/14/2014 88.53 LT HEART ANGIOCARDIOGRAM 11/14/2014 88.56 CORONAR ARTERIOGR-2 CATH 11/14/2014 [id number] REPOSITION R UP FEMUR WITH INTRAMED FIX, 09/04/2015 [id number] REMOVAL OF INT FIX FROM R UP FEMUR, EXTE 09/16/2015 [id number] REPOSITION RIGHT UPPER FEMUR WITH INT FI 09/16/2015 [id number] DRAIN OF L UP LEG SUBCU/ FASCIA [...] urine sediment by light microscopy 5-10 NRG Methicillin resistant Staphylococcus aureus (MRSA) screening culture - 07:12 Methicillin resistant Staphylococcus aureus (MRSA) screening culture NEG NRG Complete blood count (CBC) with automated white blood cell (WBC) differential - 03/14/18 07:20 Blood leukocytes automated count (number/volume) 12.3 10*3/uL 4.3-11.0 Blood erythrocytes automated count (number/volume) 4.07 10*6/uL 4.35-5.85 Venous blood hemoglobin measurement (mass/volume) 12.2 g/dL 11.5-16.0 Blood hematocrit (volume fraction) 38 % 35-52 Automated erythrocyte mean corpuscular volume 94 [foz_us] 80-99 Automated erythrocyte mean corpuscular hemoglobin (mass per erythrocyte) 30 pg 25-34 Automated erythrocyte mean corpuscular hemoglobin concentration measurement ( mass/volume) 32 g/dL 32-36 Automated erythrocyte distribution width ratio 14.9 % 10.0-14.5 Automated blood platelet count (count/volume) 262 10*3/uL 130-400 Automated blood platelet mean volume measurement 12.3 [foz_us] 7.4-10.4 Automated blood neutrophils/100 leukocytes 77 % 42-75 Automated blood lymphocytes/100 leukocytes 16 % 12-44 Blood monocytes/100 leukocytes 6 % 0-12 Automated blood eosinophils/100 leukocytes 1 % 0-10 Automated blood basophils/100 leukocytes 0 % 0-10 Blood neutrophils automated count (number/volume) 9.4 10*3 1.8-7.8 Blood lymphocytes automated count (number/volume) 1.9 10*3 1.0-4.0 Blood monocytes automated count (number/volume) 0.7 10*3 0.0-1.0 Automated eosinophil count 0.2 10*3/uL 0.0-0.3 Automated blood basophil count (count/volume) 0.0 10*3/uL 0.0-0.1 Whole blood basic metabolic panel - 03/14/18 07:20 Serum or plasma sodium measurement (moles/volume) 142 mmol/L 135-145 Serum or plasma potassium measurement (moles/volume) 4.8 mmol/L 3.6-5.0 Serum or plasma chloride measurement (moles/volume) 102 mmol/L 98-107 Carbon dioxide 27 mmol/L 21-32 Serum or plasma anion gap determination (moles/volume) 13 mmol/L 5-14 Serum or plasma urea nitrogen measurement (mass/volume) 19 mg/dL 7-18 Serum or plasma creatinine measurement (mass/volume) 1.03 mg/dL 0.60-1.30 Serum or plasma urea nitrogen/creatinine mass ratio 18 NRG Serum or plasma creatinine measurement with calculation of estimated glomerular filtration rate 53 NRG Serum or plasma glucose measurement (mass/volume) 227 mg/dL 70-105 Serum or plasma calcium measurement (mass/volume) 9.8 mg/dL 8.5-10.1 Capillary blood glucose measurement by glucometer (mass/volume) - 03/14/18 07: 37 Capillary blood glucose measurement by glucometer (mass/volume) 245 mg/dL 70-110 Complete blood count (CBC) with automated white blood cell (WBC) differential - 03/16/18 21:10 Blood leukocytes automated count (number/volume) 15.2 10*3/uL 4.3-11.0 Blood erythrocytes automated count (number/volume) 3.93 10*6/uL 4.35-5.85 Venous blood hemoglobin measurement (mass/volume) 11.9 g/dL 11.5-16.0 Blood hematocrit (volume fraction) 37 % 35-52 Automated erythrocyte mean corpuscular volume 93 [foz_us] 80-99 Automated erythrocyte mean corpuscular hemoglobin (mass per erythrocyte) 30 pg 25-34 Automated erythrocyte mean corpuscular hemoglobin concentration measurement ( mass/volume) 33 g/dL 32-36 Automated erythrocyte distribution width ratio 14.6 % 10.0-14.5 Automated blood platelet count (count/volume) 254 10*3/uL 130-400 Automated blood platelet mean volume measurement 12.0 [foz_us] 7.4-10.4 Automated blood neutrophils/100 leukocytes 77 % 42-75 Automated blood lymphocytes/100 leukocytes 14 % 12-44 Blood monocytes/100 leukocytes 8 % 0-12 Automated blood eosinophils/100 leukocytes 1 % 0-10 Automated blood basophils/100 leukocytes 0 % 0-10 Blood neutrophils automated count (number/volume) 11.7 10*3 1.8-7.8 Blood lymphocytes automated count (number/volume) 2.1 10*3 1.0-4.0 Blood monocytes automated count (number/volume) 1.2 10*3 0.0-1.0 Automated eosinophil count 0.2 10*3/uL 0.0-0.3 Automated blood basophil count (count/volume) 0.0 10*3/uL 0.0-0.1 PT panel in platelet poor plasma by coagulation assay - 03/16/18 21:10 Prothrombin time (PT) in platelet poor plasma by coagulation assay 14.0 s 12.2-14.7 INR in platelet poor plasma or blood by coagulation assay 1.1 0.8-1.4 Activated partial thromboplastin time (aPTT) in platelet poor plasma bycoagulation assay - 03/16/18 21:10 Activated partial thromboplastin time (aPTT) in platelet poor plasma bycoagulation assay 29 s 24-35 Comprehensive metabolic panel - 03/16/18 21:10 Serum or plasma sodium measurement (moles/volume) 141 mmol/L 135-145 Serum or plasma potassium measurement (moles/volume) 3.3 mmol/L 3.6-5.0 Serum or plasma chloride measurement (moles/volume) 101 mmol/L 98-107 Carbon dioxide 27 mmol/L 21-32 Serum or plasma anion gap determination (moles/volume) 13 mmol/L 5-14 Serum or plasma urea nitrogen measurement (mass/volume) 18 mg/dL 7-18 Serum or plasma creatinine measurement (mass/volume) 1.01 mg/dL 0.60-1.30 Serum or plasma urea nitrogen/creatinine mass ratio 18 NRG Serum or plasma creatinine measurement with calculation of estimated glomerular filtration rate 54 NRG Serum or plasma glucose measurement (mass/volume) 150 mg/dL 70-105 Serum or plasma calcium measurement (mass/volume) 9.2 mg/dL 8.5-10.1 Serum or plasma total bilirubin measurement (mass/volume) 0.4 mg/dL 0.1-1.0 Serum or plasma alkaline phosphatase measurement (enzymatic activity/volume) 49 U/L 40-136 Serum or plasma aspartate aminotransferase measurement (enzymatic activity/ volume) 13 U/L 5-34 Serum or plasma alanine aminotransferase measurement (enzymatic activity/volume ) 11 U/L 0-55 Serum or plasma protein measurement (mass/volume) 6.9 g/dL 6.4-8.2 Serum or plasma albumin measurement (mass/volume) 3.4 g/dL 3.2-4.5 Magnesium - 03/16/18 21:10 Magnesium 1.7 mg/dL 1.8-2.4 Serum or plasma lithium measurement (moles/volume) - 03/16/18 21:10 BNP level 323.1 pg/mL <100.0 Serum or plasma troponin i.cardiac measurement (mass/volume) - 03/16/18 21:10 Serum or plasma troponin i.cardiac measurement (mass/volume) < ng/ mL <0.30 Complete blood count (CBC) with automated white blood cell (WBC) differential - 04/21/18 08:50 Blood leukocytes automated count (number/volume) 13.9 10*3/uL 4.3-11.0 Blood erythrocytes automated count (number/volume) 3.81 10*6/uL 4.35-5.85 Venous blood hemoglobin measurement (mass/volume) 11.4 g/dL 11.5-16.0 Blood hematocrit (volume fraction) 36 % 35-52 Automated erythrocyte mean corpuscular volume 93 [foz_us] 80-99 Automated erythrocyte mean corpuscular hemoglobin (mass per erythrocyte) 30 pg 25-34 Automated erythrocyte mean corpuscular hemoglobin concentration measurement ( mass/volume) 32 g/dL 32-36 Automated erythrocyte distribution width ratio 15.1 % 10.0-14.5 Automated blood platelet count (count/volume) 241 10*3/uL 130-400 Automated blood platelet mean volume measurement 12.3 [foz_us] 7.4-10.4 Automated blood neutrophils/100 leukocytes 81 % 42-75 Automated blood lymphocytes/100 leukocytes 12 % 12-44 Blood monocytes/100 leukocytes 5 % 0-12 Automated blood eosinophils/100 leukocytes 2 % 0-10 Automated blood basophils/100 leukocytes 0 % 0-10 Blood neutrophils automated count (number/volume) 11.3 10*3 1.8-7.8 Blood lymphocytes automated count (number/volume) 1.7 10*3 1.0-4.0 Blood monocytes automated count (number/volume) 0.7 10*3 0.0-1.0 Automated eosinophil count 0.2 10*3/uL 0.0-0.3 Automated blood basophil count (count/volume) 0.0 10*3/uL 0.0-0.1 PT panel in platelet poor plasma by coagulation assay - 04/21/18 08:50 Prothrombin time (PT) in platelet poor plasma by coagulation assay 19.5 s 12.2-14.7 INR in platelet poor plasma or blood by coagulation assay 1.6 0.8-1.4 Activated partial thromboplastin time (aPTT) in platelet poor plasma bycoagulation assay - 04/21/18 08:50 Activated partial thromboplastin time (aPTT) in platelet poor plasma bycoagulation assay 33 s 24-35 Comprehensive metabolic panel - 04/21/18 08:50 Serum or plasma sodium measurement (moles/volume) 139 mmol/L 135-145 Serum or plasma potassium measurement (moles/volume) 4.2 mmol/L 3.6-5.0 Serum or plasma chloride measurement (moles/volume) 103 mmol/L 98-107 Carbon dioxide 24 mmol/L 21-32 Serum or plasma anion gap determination (moles/volume) 12 mmol/L 5-14 Serum or plasma urea nitrogen measurement (mass/volume) 14 mg/dL 7-18 Serum or plasma creatinine measurement (mass/volume) 0.81 mg/dL 0.60-1.30 Serum or plasma urea nitrogen/creatinine mass ratio 17 NRG Serum or plasma creatinine measurement with calculation of estimated glomerular filtration rate > NRG Serum or plasma glucose measurement (mass/volume) 283 mg/dL 70-105 Serum or plasma calcium measurement (mass/volume) 9.5 mg/dL 8.5-10.1 Serum or plasma total bilirubin measurement (mass/volume) 0.5 mg/dL 0.1-1.0 Serum or plasma alkaline phosphatase measurement (enzymatic activity/volume) 54 U/L 40-136 Serum or plasma aspartate aminotransferase measurement (enzymatic activity/ volume) 17 U/L 5-34 Serum or plasma alanine aminotransferase measurement (enzymatic activity/volume ) 12 U/L 0-55 Serum or plasma protein measurement (mass/volume) 7.3 g/dL 6.4-8.2 Serum or plasma albumin measurement (mass/volume) 3.5 g/dL 3.2-4.5 Magnesium - 04/21/18 08:50 Magnesium 2.0 mg/dL 1.8-2.4 Serum or plasma troponin i.cardiac measurement (mass/volume) - 04/21/18 08:50 Serum or plasma troponin i.cardiac measurement (mass/volume) < ng/ mL <0.30 Serum or plasma lithium measurement (moles/volume) - 04/21/18 08:50 BNP level 417.9 pg/mL <100.0 Myoglobin, serum - 04/21/18 08:50 Myoglobin, serum 37.5 ng/mL 10.0-92.0 Lipase - 04/21/18 08:50 Lipase 11 U/L 8-78 Complete urinalysis with reflex to culture - 04/21/18 08:58 Urine color determination YELLOW NRG Urine clarity determination CLEAR NRG Urine pH measurement by test strip 8 5-9 Specific gravity of urine by test strip 1.010 1.016- 1.022 Urine protein assay by test strip, semi-quantitative 3+ NEGATIVE Urine glucose detection by automated test strip 2+ NEGATIVE Erythrocytes detection in urine sediment by [...] urine sediment by light microscopy NONE NRG Crystals detection in urine sediment by light microscopy NONE NRG Casts detection in urine sediment by light microscopy NONE NRG Mucus detection in urine sediment by light microscopy NEGATIVE NRG Complete urinalysis with reflex to culture NO NRG Capillary blood glucose measurement by glucometer (mass/volume) - 04/21/18 15: 49 Capillary blood glucose measurement by glucometer (mass/volume) 165 mg/dL 70-110 Capillary blood glucose measurement by glucometer (mass/volume) - 04/21/18 21: 17 Capillary blood glucose measurement by glucometer (mass/volume) 222 mg/dL 70-110 Capillary blood glucose measurement by glucometer (mass/volume) - 04/22/18 05: 09 Capillary blood glucose measurement by glucometer (mass/volume) 191 mg/dL 70-110 Complete blood count (CBC) with automated white blood cell (WBC) differential - 04/22/18 05:10 Blood leukocytes automated count (number/volume) 12.9 10*3/uL 4.3-11.0 Blood erythrocytes automated count (number/volume) 3.77 10*6/uL 4.35-5.85 Venous blood hemoglobin measurement (mass/volume) 11.4 g/dL 11.5-16.0 Blood hematocrit (volume fraction) 35 % 35-52 Automated erythrocyte mean corpuscular volume 93 [foz_us] 80-99 Automated erythrocyte mean corpuscular hemoglobin (mass per erythrocyte) 30 pg 25-34 Automated erythrocyte mean corpuscular hemoglobin concentration measurement ( mass/volume) 32 g/dL 32-36 Automated erythrocyte distribution width ratio 15.1 % 10.0-14.5 Automated blood platelet count (count/volume) 223 10*3/uL 130-400 Automated blood platelet mean volume measurement 11.6 [foz_us] 7.4-10.4 Automated blood neutrophils/100 leukocytes 74 % 42-75 Automated blood lymphocytes/100 leukocytes 18 % 12-44 Blood monocytes/100 leukocytes 6 % 0-12 Automated blood eosinophils/100 leukocytes 2 % 0-10 Automated blood basophils/100 leukocytes 0 % 0-10 Blood neutrophils automated count (number/volume) 9.6 10*3 1.8-7.8 Blood lymphocytes automated count (number/volume) 2.3 10*3 1.0-4.0 Blood monocytes automated count (number/volume) 0.7 10*3 0.0-1.0 Automated eosinophil count 0.3 10*3/uL 0.0-0.3 Automated blood basophil count (count/volume) 0.0 10*3/uL 0.0-0.1 Whole blood basic metabolic panel - 04/22/18 05:10 Serum or plasma sodium measurement (moles/volume) 139 mmol/L 135-145 Serum or plasma potassium measurement (moles/volume) 4.4 mmol/L 3.6-5.0 Serum or plasma chloride measurement (moles/volume) 105 mmol/L 98-107 Carbon dioxide 23 mmol/L 21-32 Serum or plasma anion gap determination (moles/volume) 11 mmol/L 5-14 Serum or plasma urea nitrogen measurement (mass/volume) 12 mg/dL 7-18 Serum or plasma creatinine measurement (mass/volume) 0.75 mg/dL 0.60-1.30 Serum or plasma urea nitrogen/creatinine mass ratio 16 NRG Serum or plasma creatinine measurement with calculation of estimated glomerular filtration rate > NRG Serum or plasma glucose measurement (mass/volume) 189 mg/dL 70-105 Serum or plasma calcium measurement (mass/volume) 9.0 mg/dL 8.5-10.1 Lipid 1996 panel - 04/22/18 05:10 Serum or plasma triglyceride measurement (mass/volume) 97 mg/dL <150 Serum or plasma cholesterol measurement (mass/volume) 153 mg/dL < 200 Serum or plasma cholesterol in HDL measurement (mass/volume) 53 mg/ dL 40-60 Cholesterol in LDL [mass/volume] in serum or plasma by direct assay 86 mg/dL 1-129 Serum or plasma cholesterol in VLDL measurement (mass/volume) 19 mg/ dL 5-40 Capillary blood glucose measurement by glucometer (mass/volume) - 04/22/18 11: 12 Capillary blood glucose measurement by glucometer (mass/volume) 237 mg/dL 70-110 Encounters ACCT No. Visit Date/Time Discharge Status Pt. Type Provider Facility Loc./Unit Complaint [id number] 04/15/2018 14:13:00 04/15/2018 23:59:59 CLS Preadmit ERVIN OSBORNE MD [facility] RAD RV AML,LV RENAL CYST [id number] 03/28/2018 08:39:00 03/28/2018 23:59:59 CLS Outpatient DANY ESPINAL DO [facility] RAD REFACTORY SINUSITIS [id number] 03/16/2018 20:05:00 03/16/2018 22:59:00 DIS Emergency NELYL SMITH DO [facility] ER NOSE SURGERY SATURDAY, LEAKING FLUIDS [id number] 03/14/2018 06:57:00 03/14/2018 11:30:00 DIS Outpatient CORBY SULTAAN MD [facility] SDC EPISTAXIS [id number] 03/13/2018 14:51:00 03/13/2018 15:26:00 DIS Outpatient CORBY SULTANA MD [facility] PREOP EPISTAXIS [id number] 03/11/2018 09:59:00 03/11/2018 12:45:00 DIS Emergency BRIAN HENDRICKSON MD [facility] ER VOMITING,TROUBLE BREATHING [id number] 03/08/2018 17:40:00 03/08/2018 17:50:00 DIS Emergency YANG ARENAS MD [facility] ER WOUND CARE NO CHARGE [id number] 03/08/2018 09:26:00 03/08/2018 11:30:00 DIS Emergency YANG ARENAS MD [facility] ER SINUS INFECTION,NOSE BLEEDS,SOB [id number] 02/10/2018 12:48:00 02/10/2018 23:59:59 CLS Outpatient JOSELUIS BORGES [facility] RAD ABNORMAL SCREENING [id number] 09/13/2017 21:00:00 09/14/2017 15:45:00 DIS Inpatient TEDDY CHAUHAN DANY Short [facility] ICU CHEST PAIN,CHRONIC ATRIAL FIB [id number] 09/04/2017 11:43:00 09/04/2017 16:40:00 DIS Outpatient ARVIND BOGGS MD [facility] SDC TEMPORAL ARTERITIS/ SEVERE HEADACHE [id number] 08/09/2017 10:23:00 08/09/2017 23:59:59 CLS Outpatient FAITH TURK [facility] RAD R92.8 [id number] 08/08/2017 00:25:00 08/08/2017 23:59:59 CLS Preadmit FAITH TURK [facility] ONC [id number] 05/09/2017 12:00:00 08/07/2017 00:01:00 DIS Outpatient FAITH TURK [facility] ONC [id number] 07/25/2017 17:31:00 07/25/2017 23:59:59 CLS Outpatient KO KENDRICK DO [facility] RAD BACK PAIN [id number] 05/31/2017 06:27:00 05/31/2017 10:05:00 DIS Outpatient YANG VALERA MD [facility] ENDO RECTAL BLEEDING [id number] 05/29/2017 05:34:00 05/29/2017 15:35:00 DIS Outpatient YANG VALERA MD [facility] PREOP COLONOSCOPY [id number] 05/09/2017 15:12:00 05/09/2017 23:59:59 CLS Preadmit FAITH TURK [facility] RAD SCREENING Z12.31 [id number] 05/09/2017 10:38:00 05/09/2017 23:59:59 CLS Preadmit FAITH TURK [facility] ONC [id number] 04/23/2017 14:02:00 04/23/2017 23:59:59 CLS Outpatient ERVIN OSBORNE MD [facility] RAD RT SM,LT RENAL CYST [id number] 04/12/2017 08:15:00 04/12/2017 23:59:59 CLS Outpatient AGATHA ESPINAL BRANCH ASSISTANT [facility] RAD ABDOMINAL/PELVIC PAIN [id number] 03/28/2017 10:22:00 03/28/2017 23:59:59 CLS Outpatient BLANCHO DPFRANCK Aleman [facility] RAD DVT [id number] 03/13/2017 06:00:00 03/13/2017 11:25:00 DIS Outpatient BLANCHO DPFRANCK Aleman Maximino [facility] SDC EQUINUS DEFORMITY RLE [id number] 03/06/2017 09:10:00 03/06/2017 10:27:00 DIS Outpatient BLANCHO DPFRANCK Aleman [facility] PREOP EQUINUS DEFORMITY RLE [id number] 03/05/2017 00:09:00 03/05/2017 11:15:00 DIS Inpatient JOANNA MOULTON, SANGEETA Harley [facility] ICU CHEST PAIN [id number] 02/06/2017 11:50:00 02/06/2017 23:59:59 CLS Outpatient SHEELA BANUELOS MD [facility] CARD AF,CHEST PAIN,HTN,HLP [id number] 08/14/2016 07:46:00 08/14/2016 23:59:59 CLS Outpatient JOSELUIS BORGES BRANCH ASSISTANT [facility] RAD ABNORMAL SCREENING MAMMO [id number] 08/07/2016 10:57:00 08/07/2016 23:59:59 CLS Outpatient JOSELUIS BORGES BRANCH ASSISTANT [facility] RAD SCREENING,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 [id number] 05/28/2016 19:14:00 05/28/2016 21:28:00 DIS Emergency JAYE MENG APRN [facility] ER CHEST PAIN [id number] 05/22/2016 11:13:00 05/22/2016 23:59:59 CLS Outpatient DANY ESPINAL DO [facility] RAD F02.81 [id number] 05/10/2016 12:33:00 05/10/2016 23:59:59 CLS Outpatient JOSELUIS BORGES BRANCH ASSISTANT [facility] ONC [id number] 03/19/2016 01:26:00 03/22/2016 13:45:00 DIS Inpatient SANGEETA MARSHALL MD [address] AMS; SUSPENDED UTI; FEVER [id number] 03/08/2016 21:09:00 03/12/2016 12:07:00 DIS Inpatient JOSE ELIAS NG DO [facility] 4TH SEPSIS,UTI,AMS [id number] 03/08/2016 01:39:00 03/08/2016 03:44:00 DIS Emergency NELLY SMITH DO [facility] ER AMS,UTI,R LEG PAIN [id number] 03/01/2016 12:00:00 03/01/2016 23:59:59 CLS Outpatient DANY ESPINAL DO [facility] POSSIBLE UTI [id number] 02/16/2016 14:52:00 02/16/2016 23:59:59 CLS Outpatient DANY ESPINAL DO [facility] UTI, HYPOTHYROIDISM [id number] 01/30/2016 17:30:00 02/02/2016 14:30:00 DIS Inpatient SANGEETA MARSHALL MD [address] UTI,CONFUSION [id number] 01/28/2016 18:13:00 01/28/2016 23:59:59 CLS Outpatient AGATHA ESPINAL [facility] LAB UTI [id number] 11/15/2015 10:07:00 11/15/2015 23:59:59 CLS Outpatient MEGHA PANDA MD [facility] GLC CELLULITIS, VANCO IV [id number] 10/15/2015 15:55:00 10/19/2015 16:30:00 DIS Inpatient MEGHA PANDA MD [facility] [address] EXTENSIVE CELLULITIS RT HIP,FEVER,S/P RT HIP IF [id number] 09/15/2015 14:20:00 09/23/2015 14:37:00 DIS Inpatient MEGHA MATIAS MD [facility] 4TH HARDWARE FAILURE [id number] 09/08/2015 13:29:00 09/15/2015 13:30:00 DIS Inpatient VENUS PARTIDA MD [facility] IRF RIGHT HIP FRACTURE, CLOSED [id number] 09/03/2015 18:45:00 09/08/2015 11:15:00 DIS Inpatient MEGHA PANDA MD [facility] 4TH RIGHT HIP FRACTURE, CLOSED [id number] 07/05/2015 10:30:00 07/05/2015 23:59:59 CLS Outpatient MEGHA PANDA MD [facility] DIABETES,CHRONIC DIURETIC USE [id number] 06/24/2015 10:40:00 06/24/2015 23:59:59 CLS Outpatient MEGHA PANDA MD [facility] DM, HYPOPOTASSEMIA [id number] 06/17/2015 12:00:00 06/17/2015 23:59:59 CLS Outpatient MEGHA PANDA MD [facility] HH HYPONATREMIA [id number] 05/20/2015 14:13:00 06/16/2015 09:42:00 DIS Outpatient RAVEN LEO APRN [facility] REHAB MUSCULOSKELETAL CHEST AND SHOULDER PAIN [id number] 06/14/2015 11:45:00 06/14/2015 14:36:00 DIS Outpatient WILLARD PARR [facility] CARD AFIB,HTN, SYNCOPE [id number] 06/08/2015 21:25:00 06/10/2015 13:15:00 DIS Inpatient MEGHA PANDA MD [facility] SURGICAL HYPONATREMIA, AMS, WEAKNESS [id number] 05/25/2015 07:00:00 05/27/2015 14:20:00 DIS Inpatient MEGHA PANDA MD [facility] SURGICAL FALL/CONTUSION [id number] 05/18/2015 14:02:00 05/18/2015 23:59:59 CLS Outpatient FAITH TURK [facility] RAD BREAST CA [id number] 05/12/2015 13:11:00 05/12/2015 23:59:59 CLS Outpatient FAITH TURK [facility] ONC [id number] 05/03/2015 13:04:00 05/03/2015 23:59:59 CLS Outpatient ERVIN OSBORNE MD [facility] RAD LEFT RENAL CYST [id number] 04/08/2015 21:00:00 04/09/2015 13:25:00 DIS Inpatient MEGHA PANDA MD [facility] ICU CHEST PAIN [id number] 01/10/2015 10:18:00 01/10/2015 23:59:59 CLS Outpatient SHEELA BANUELOS MD [facility] REHAB LEG AND BACK PAIN [id number] 11/29/2014 09:14:00 11/29/2014 23:59:59 CLS Outpatient MEGHA PANDA MD [facility] RAD F/U CHF [id number] 11/16/2014 10:19:00 11/16/2014 12:59:00 DIS Emergency DANY HOLLIS DO [facility] ER CHEST PAINS [id number] 11/14/2014 15:42:00 11/15/2014 16:15:00 DIS Inpatient MEGHA PANDA MD [facility] ICU CHEST AND SHOULDER PAIN [id number] 11/01/2014 14:09:00 11/01/2014 23:59:59 CLS Outpatient ERVIN OSBORNE MD [facility] RAD LEFT RENAL CYST [id number] 10/28/2014 14:49:00 10/28/2014 23:59:59 CLS Outpatient RAVEN LEO APRN [facility] RAD SOB,BLE PAIN [id number] 10/14/2014 12:15:00 10/14/2014 23:59:59 CLS Outpatient MEGHA PANDA MD [facility] RAD COUGH [id number] 07/18/2014 12:07:00 07/18/2014 23:59:59 CLS Outpatient [id number] 06/03/2014 21:01:00 06/04/2014 07:38:00 DIS Outpatient CORBY SULTANA MD [facility] SLEEP MADELYN [id number] 06/01/2014 15:12:00 06/01/2014 23:59:59 CLS Outpatient FAITH TURK [facility] RAD SCREENING [id number] 05/13/2014 13:29:00 05/13/2014 23:59:59 CLS Outpatient FAITH TURK [facility] ONC [id number] 05/04/2014 13:59:00 05/04/2014 23:59:59 CLS Outpatient ERVIN OSBORNE MD [facility] RAD LEFT RENAL CYST,RAML [id number] 12/16/2013 07:13:00 12/16/2013 10:35:00 DIS Outpatient ARI GASTELUM MD [facility] SDC DYSPHAGIA [id number] 12/09/2013 07:36:00 12/09/2013 23:59:59 CLS Outpatient ARI GASTELUM MD [facility] PREOP DYSPHAGIA [id number] 12/03/2013 13:16:00 12/03/2013 23:59:59 CLS Outpatient JOSELUIS BORGES [facility] RAD SIX MONTH FOLLOW-UP [id number] 11/04/2013 14:02:00 11/04/2013 23:59:59 CLS Outpatient ERVIN OSBORNE MD [facility] RAD LT RENAL CYST [id number] 06/01/2013 14:05:00 06/01/2013 23:59:59 CLS Outpatient FAITH TURK [facility] RAD FOLLOW-UP,HX CA BREAST [id number] 04/28/2013 13:07:00 04/28/2013 23:59:59 CLS Outpatient ERVIN OSBORNE MD [facility] RAD RENAL MASSES [id number] 03/23/2013 14:02:00 03/23/2013 23:59:59 CLS Outpatient MEGHA PANDA MD [facility] LAB [id number] 03/23/2013 13:33:00 03/23/2013 23:59:59 CLS Outpatient FAITH TURK [facility] ONC [id number] 04/21/2018 08:59:00 Document Registration [id number] 04/17/2016 09:14:00 Document Registration [id number] 09/06/2015 17:01:00 Document Registration [id number] 11/29/2014 09:14:00 Document Registration [id number] 01/01/2013 18:45:00 Document Registration [id number] 12/28/2012 17:05:00 Document Registration [id number] 12/01/2012 13:35:00 Document Registration [id number] 11/28/2012 12:10:00 Document Registration [id number] 09/16/2012 19:40:00 Document Registration [id number] 05/13/2012 05:38:00 Document Registration [id number] 05/08/2012 11:44:00 Document Registration [id number] 05/06/2012 12:30:00 Document Registration [id number] 04/29/2012 07:26:00 Document Registration [id number] 04/08/2012 13:03:00 Document Registration [id number] 03/26/2012 15:10:00 Document Registration [id number] 03/24/2012 10:29:00 Document Registration [id number] 12/17/2011 07:36:00 Document Registration [id number] 09/21/2011 21:48:00 Document Registration [id number] 09/06/2011 05:38:00 Document Registration [id number] 09/04/2011 09:37:00 Document Registration [id number] 07/18/2011 08:49:00 Document Registration [id number] 07/11/2011 06:30:00 Document Registration [id number] 04/30/2011 18:01:00 Document Registration [id number] 04/25/2011 13:30:00 Document Registration [id number] 03/12/2011 13:01:00 Document Registration [id number] 03/02/2011 13:14:00 Document Registration [id number] 02/19/2011 12:40:00 Document Registration [id number] 07/07/2010 15:10:00 Document Registration [id number] 04/07/2010 16:16:00 Document Registration [id number] 03/17/2010 15:02:00 Document Registration [id number] 03/07/2010 14:00:00 Document Registration [id number] 03/02/2010 12:39:00 Document Registration [id number] 03/02/2010 12:35:00 Document Registration [id number] 02/23/2010 09:02:00 Document Registration [id number] 02/13/2010 14:39:00 Document Registration [id number] 12/07/2009 10:08:00 Document Registration [id number] 12/07/2009 10:07:00 Document Registration [id number] 10/07/2009 12:26:00 Document Registration [id number] 09/28/2009 10:28:00 Document Registration [id number] 09/21/2009 11:39:00 Document Registration [id number] 08/30/2009 00:00:00 Document Registration [id number] 08/23/2009 13:57:00 Document Registration [id number] 08/17/2009 13:00:00 Document Registration [id number] 08/12/2009 12:31:00 Document Registration [id number] 07/06/2015 08:10:04 ACT Document Registration [id number] 01/03/2018 14:30:00 01/03/2018 23:59:59 [facility] Outpatient DARCY HAN APRN [facility]
[2018-04-26] MEDS ORDERED: CYANOCOBALAMIN INJ 1000 MCG/ML IM SCH (09:00)
== END 2018-04-22 12:18 | disposition home or self-care (01) ==
LOC: EDUNIT# 08:16 → ER 08:17 → 4TH 10:57 → UNDOADMOB 10:57 → 4TH 11:35 → UNDODISOB 04-22 14:38
PROVIDERS: ADMIT Internal Medicine; ATTEND Internal Medicine
DX: R07.9 Chest pain, unspecified (principal); I48.2 Chronic atrial fibrillation; I25.10 Atherosclerotic heart disease of native coronary artery without angina pectoris; E78.00 Pure hypercholesterolemia, unspecified; I10 Essential (primary) hypertension; J44.9 Chronic obstructive pulmonary disease, unspecified; Z86.718 Personal history of other venous thrombosis and embolism; E11.9 Type 2 diabetes mellitus without complications; Z79.4 Long term (current) use of insulin; Z92.21 Personal history of antineoplastic chemotherapy; Z85.3 Personal history of malignant neoplasm of breast; F41.9 Anxiety disorder, unspecified; M79.7 Fibromyalgia; I27.20 Pulmonary hypertension, unspecified; I65.23 Occlusion and stenosis of bilateral carotid arteries; I08.1 Rheumatic disorders of both mitral and tricuspid valves; F31.9 Bipolar disorder, unspecified
CPT/HCPCS: 36415; 71045; 80048; 80053; 80061; 81000; 82962; 83690; 83735; 83874; 83880; 84484; 85025; 85610; 85730; 93005; 93041; 93306; 94760; 96374; G0378

== ENCOUNTER → 2018-04-23 | Outpatient (CLI) | payer MEDICARE, MEDICAID ==
[~2018-04-23] MED LIST changes: +ASPI-983 PO; +CETI10TA20 PO; +CHOL500044 PO; +CLOT15CR6 TOP; +FLUT9.9S NS; +LIDO700A45 TOP; +NAPR220C11 PO; +NPB.9O TP; +OXYM30SP70 NS; +SODI14.12 NS; +VITA400C60 PO
--- NOTE | 2018-04-23 11:01 | Diagnostic Imaging Report ---
PROCEDURE: CT abdomen and pelvis without contrast. TECHNIQUE: Multiple contiguous axial images were obtained through the abdomen and pelvis without the use of intravenous contrast. INDICATION: Followup renal cyst. COMPARISON: Correlation is made with prior CT from 01/01/2013. FINDINGS: The lung bases are clear. No discrete liver mass is identified. The gallbladder is not well-seen and may be surgically absent. The pancreas and spleen are unremarkable. No adrenal mass is identified. The large exophytic cyst extending anteriorly from the left kidney is again noted. This is slightly larger in size now measuring 11.5 cm transverse compared with 10.6 cm on prior exam. Several other cortical lesions appear to be larger as well. A cyst in the lower pole of the left kidney is approximately 2 cm in diameter. The previously noted fat-containing mass in the upper pole right kidney is actually not well seen on today's study. There is a tiny exophytic lesion arising posteriorly from the upper pole right kidney, not present on prior exam measuring approximately 1 cm in size. This does show some increased density and is indeterminate between a solid lesion versus a hemorrhagic cyst. No renal calculi are identified. There is no hydronephrosis. The aorta is nonaneurysmal. Small and large bowel loops are normal caliber. There is no ascites. Moderate stool in the rectum and sigmoid colon. There are shotty lymph nodes in the central retroperitoneum but no pathologically enlarged nodes are seen. No definite pelvic lymphadenopathy is seen. There are postop changes to the right hip. IMPRESSION: 1. Slight increase in size of large simple cyst in the left kidney when compared with exam from 01/01/2013. There has been some increase in size of additional smaller cysts in left kidney as well. 2. Previously noted fat-containing lesion of the right kidney is not visualized on today's exam. There is a small hyperdense mass in the right kidney upper pole, new since prior exam, indeterminate between a solid lesion versus a hemorrhagic cyst. Close CT followup with repeat study in 3-4 months recommended to confirm stability. 3. No other significant abnormality is detected. Dictated by: Dictated on workstation # [id number]
== END ==
LOC: RAD 10:14
PROVIDERS: ATTEND Urology
DX: C92.00 Acute myeloblastic leukemia, not having achieved remission (principal); N28.1 Cyst of kidney, acquired
CPT/HCPCS: 74176

== ENCOUNTER → 2018-05-06 | Outpatient (CLI) | payer MEDICARE, MEDICAID ==
[2018-05-06 13:19] LABS: BASOPHILS % (AUTO) 0 % (0-10); EOSINOPHILS # (AUTO) 0.3 10^3/uL (0.0-0.3); EOSINOPHILS % (AUTO) 3 % (0-10); HEMATOCRIT 34 % (35-52); HEMOGLOBIN 11.2 G/DL (11.5-16.0); LYMPHOCYTES # (AUTO) 2.3 X 10^3 (1.0-4.0); LYMPHOCYTES % (AUTO) 19 % (12-44); MEAN CORPUSCULAR HEMOGLOBIN 31 PG (25-34); MEAN CORPUSCULAR HGB CONC 33 G/DL (32-36); MEAN CORPUSCULAR VOLUME 94 FL (80-99); MEAN PLATELET VOLUME 11.7 FL (7.4-10.4); MONOCYTES # (AUTO) 0.7 X 10^3 (0.0-1.0); MONOCYTES % (AUTO) 5 % (0-12); NEUTROPHILS % (AUTO) 73 % (42-75); PLATELET COUNT 251 10^3/uL (130-400); RED BLOOD COUNT 3.62 10^6/uL (4.35-5.85); RED CELL DISTRIBUTION WIDTH 15.7 % (10.0-14.5); WHITE BLOOD COUNT 12.4 10^3/uL (4.3-11.0)
[2018-05-06 13:31] LABS: ALANINE AMINOTRANSFERASE 11 U/L (0-55); ALBUMIN 3.4 GM/DL (3.2-4.5); ALKALINE PHOSPHATASE 51 U/L (40-136); BILIRUBIN,TOTAL 0.3 MG/DL (0.1-1.0); BUN/CREATININE RATIO 20; CALCIUM 9.2 MG/DL (8.5-10.1); CARBON DIOXIDE 26 MMOL/L (21-32); CHLORIDE 104 MMOL/L (98-107); CREATININE SERUM 0.82 MG/DL (0.60-1.30); GFR ESTIMATED > 60; GLUCOSE 246 MG/DL (70-105); POTASSIUM 4.2 MMOL/L (3.6-5.0); SODIUM 141 MMOL/L (135-145); TOTAL PROTEIN 7.4 GM/DL (6.4-8.2)
== END ==
LOC: ONC 12:55
PROVIDERS: ATTEND Internal Medicine Hematology & Oncology
DX: Z08 Encounter for follow-up examination after completed treatment for malignant neoplasm (principal); Z85.3 Personal history of malignant neoplasm of breast; B02.29 Other postherpetic nervous system involvement; I48.2 Chronic atrial fibrillation; I10 Essential (primary) hypertension; E11.9 Type 2 diabetes mellitus without complications; E78.5 Hyperlipidemia, unspecified; I27.20 Pulmonary hypertension, unspecified; G47.33 Obstructive sleep apnea (adult) (pediatric); Z86.711 Personal history of pulmonary embolism; Z86.718 Personal history of other venous thrombosis and embolism; Z90.11 Acquired absence of right breast and nipple; Z79.01 Long term (current) use of anticoagulants; Z79.4 Long term (current) use of insulin; Z79.82 Long term (current) use of aspirin; Z79.899 Other long term (current) drug therapy; Z92.21 Personal history of antineoplastic chemotherapy
CPT/HCPCS: 36415; 80053; 85025; 99213

== ENCOUNTER 2018-05-23 13:50 | Emergency (ER) | payer OTHER, MEDICAID ==
[~2018-05-23] VITALS: Ht 160 cm; Wt 108.9 kg
[~2018-05-23 13:50] MED LIST changes: -KETO120S11 TOP; -KETO120S11 TP; +KETO120S2 TOP; +KETO120S2 TP
--- OUTSIDE RECORDS SUMMARY | 2018-05-23 13:56 | XMS REPORT | Clinical Summary ---
Author Author [facility] Organization [facility] Address Unknown Phone Unavailable Care Team Providers Care [employer] Name Role Phone Darien Salguero MD Unavailable Source Comments Some departments are not documenting in the electronic medical record. If you do not see the information that you expected, contact Release of Information in the Health Information Management department at [phone] for further assistance in locating additional records.[facility] Allergies Active Allergy Reactions Severity Noted [...] results. -- F/U with Dr. Sethi in [place] for further urological issues (already has an [...] SCREENING 1984 COLORECTAL CANCER 1994 SCREENING SHINGLES RECOMBINANT 1994 VACCINE (1 of 2) OSTEOPOROSIS SCREENING 2009 PNEUMONIA (PCV13/PPSV23) 2009 VACCINES (1 of 2 - PCV13) INFLUENZA VACCINE 08/25/2018 Results Not on filefrom Last 3 Months
[2018-05-23 14:02] LABS: BASOPHILS % (AUTO) 0 % (0-10); EOSINOPHILS # (AUTO) 0.3 10^3/uL (0.0-0.3); EOSINOPHILS % (AUTO) 3 % (0-10); HEMATOCRIT 36 % (35-52); HEMOGLOBIN 11.4 G/DL (11.5-16.0); LYMPHOCYTES # (AUTO) 1.9 X 10^3 (1.0-4.0); LYMPHOCYTES % (AUTO) 14 % (12-44); MEAN CORPUSCULAR HEMOGLOBIN 30 PG (25-34); MEAN CORPUSCULAR HGB CONC 32 G/DL (32-36); MEAN CORPUSCULAR VOLUME 94 FL (80-99); MEAN PLATELET VOLUME 11.7 FL (7.4-10.4); MONOCYTES # (AUTO) 0.9 X 10^3 (0.0-1.0); MONOCYTES % (AUTO) 7 % (0-12); NEUTROPHILS # (AUTO) 10.2 X 10^3 (1.8-7.8); NEUTROPHILS % (AUTO) 76 % (42-75); PLATELET COUNT 285 10^3/uL (130-400); RED CELL DISTRIBUTION WIDTH 16.3 % (10.0-14.5); WHITE BLOOD COUNT 13.4 10^3/uL (4.3-11.0)
[2018-05-23 14:22] LABS: ALBUMIN 3.5 GM/DL (3.2-4.5); BILIRUBIN,TOTAL 0.3 MG/DL (0.1-1.0); CALCIUM 9.4 MG/DL (8.5-10.1); CREATININE SERUM 0.96 MG/DL (0.60-1.30); POTASSIUM 4.1 MMOL/L (3.6-5.0); TOTAL PROTEIN 7.6 GM/DL (6.4-8.2)
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
[2018-05-23 15:04] LABS: BILIRUBIN,URINE NEGATIVE (NEGATIVE); CLARITY,URINE CLEAR; COLOR,URINE YELLOW; GLUCOSE, URINE (UA) NEGATIVE (NEGATIVE); KETONES,URINE NEGATIVE (NEGATIVE); LEUKOCYTE ESTERASE ,URINE 2+ (NEGATIVE); NITRITE,URINE NEGATIVE (NEGATIVE); PH,URINE 5 (5-9); PROTEIN,URINE 3+ (NEGATIVE); UROBILINOGEN,URINE NORMAL (NORMAL)
[2018-05-23 15:17] LABS: BACTERIA,URINE FEW /HPF; RBC,URINE 0-2 /HPF
[2018-05-23 15:18] LABS: HYALINE CASTS, URINE 0-2 /LPF; SQUAMOUS EPITHELIAL CELL,UR 0-2 /HPF
--- NOTE | 2018-05-23 16:13 | Diagnostic Imaging Report ---
PROCEDURE: CT head without contrast. TECHNIQUE: Multiple contiguous axial images were obtained through the brain without the use of intravenous contrast. INDICATION: Hypoglycemia, drowsiness, altered mental status. COMPARISON: 05/22/2016. FINDINGS: The ventricles and cortical sulci are mildly prominent, consistent with generalized parenchymal volume loss. There are few focal areas of white matter hypoattenuation suggestive of chronic microvascular disease. There is no midline shift or mass effect. No CT evidence of acute territorial ischemia seen. There is a stable calcification in the left choroid plexus. There is marked hyperostosis frontalis. Small calcifications or foreign bodies are seen anterior to the ears bilaterally, new since 2015. The paranasal sinuses appear clear. IMPRESSION: 1. No acute intracranial hemorrhage. No CT evidence of acute territorial ischemia. 2. Generalized parenchymal volume loss with findings of chronic microvascular disease. 3. Marked hyperostosis frontalis. 4. Soft tissue calcifications or foreign bodies anterior to the ears bilaterally, new since 2015. Dictated by: Dictated on workstation # [id number]
[2018-05-23 16:34] VITALS: BP 139/80
[2018-06-25] MEDS ORDERED: CEFD300C3 PO (08:09)
== END 2018-05-23 16:41 | disposition home or self-care (01) ==
LOC: EDUNIT# 13:50 → ER 13:51
DX: R53.1 Weakness (principal); E11.9 Type 2 diabetes mellitus without complications; J44.9 Chronic obstructive pulmonary disease, unspecified; G47.30 Sleep apnea, unspecified; I48.91 Unspecified atrial fibrillation; I25.10 Atherosclerotic heart disease of native coronary artery without angina pectoris; E78.00 Pure hypercholesterolemia, unspecified; I10 Essential (primary) hypertension; F41.9 Anxiety disorder, unspecified; F32.9 Major depressive disorder, single episode, unspecified; Z85.3 Personal history of malignant neoplasm of breast; Z87.81 Personal history of (healed) traumatic fracture; Z86.718 Personal history of other venous thrombosis and embolism; Z79.01 Long term (current) use of anticoagulants; Z90.49 Acquired absence of other specified parts of digestive tract; Z90.710 Acquired absence of both cervix and uterus; Z90.89 Acquired absence of other organs; Z87.01 Personal history of pneumonia (recurrent); Z86.711 Personal history of pulmonary embolism; Z79.82 Long term (current) use of aspirin; Z79.4 Long term (current) use of insulin; Z88.0 Allergy status to penicillin; Z88.6 Allergy status to analgesic agent; Z88.2 Allergy status to sulfonamides; Z88.8 Allergy status to other drugs, medicaments and biological substances
CPT/HCPCS: 36415; 70450; 80053; 81000; 82962; 85025

== ENCOUNTER 2018-06-16 05:31 | Outpatient (CLI) | payer MEDICARE, MEDICAID ==
[~2018-06-16] VITALS: Ht 160 cm; Wt 108.9 kg
[2018-06-16] MEDS ORDERED: GABA-488 PO (15:32)
[2018-06-16] MEDS ORDERED: METO2.5T PO (15:32)
[2018-06-16] MEDS ORDERED: CALC-250 PO (15:32)
[2018-06-16] MEDS ORDERED: CYAN50008 PO (15:32)
[2018-06-16] MEDS ORDERED: AMLO5TAB2 PO (15:32)
[2018-06-16] MEDS ORDERED: NYST50002 PO (15:32)
[2018-06-16] MEDS ORDERED: FLUT15.88 NS (15:32)
[2018-06-16] MEDS ORDERED: INSU100I32 SQ (15:32)
[2018-06-25] MEDS ORDERED: CEFD300C3 PO (08:09)
== END 2018-06-16 15:35 ==
LOC: PREOP 05:31
PROVIDERS: ATTEND Internal Medicine
DX: Z01.818 Encounter for other preprocedural examination (principal)

== ENCOUNTER 2018-06-19 15:53 | Emergency (ER) | payer MEDICARE, MEDICAID ==
[~2018-06-19] VITALS: Ht 175.3 cm; Wt 111.1 kg
[~2018-06-19 15:53] MED LIST changes: +CALC-250 PO; +CYAN50008 PO; +FLUT15.88 NS; +INSU100I32 SQ; +METO2.5T PO
[2018-06-19] MEDS ORDERED: D5 1/2 NS 1000 ML IV SOLUTION 500 ML IV ONE (16:15)
[2018-06-19 17:14] LABS: BASOPHILS # (AUTO) 0.1 10^3/uL (0.0-0.1); BASOPHILS % (AUTO) 0 % (0-10); EOSINOPHILS # (AUTO) 0.4 10^3/uL (0.0-0.3); EOSINOPHILS % (AUTO) 4 % (0-10); HEMATOCRIT 35 % (35-52); HEMOGLOBIN 11.2 G/DL (11.5-16.0); LYMPHOCYTES # (AUTO) 2.1 X 10^3 (1.0-4.0); LYMPHOCYTES % (AUTO) 18 % (12-44); MEAN CORPUSCULAR HEMOGLOBIN 30 PG (25-34); MEAN CORPUSCULAR HGB CONC 32 G/DL (32-36); MEAN CORPUSCULAR VOLUME 94 FL (80-99); MEAN PLATELET VOLUME 12.1 FL (7.4-10.4); MONOCYTES % (AUTO) 9 % (0-12); NEUTROPHILS # (AUTO) 8.1 X 10^3 (1.8-7.8); NEUTROPHILS % (AUTO) 69 % (42-75); PLATELET COUNT 212 10^3/uL (130-400); RED BLOOD COUNT 3.69 10^6/uL (4.35-5.85); RED CELL DISTRIBUTION WIDTH 15.8 % (10.0-14.5); WHITE BLOOD COUNT 11.7 10^3/uL (4.3-11.0)
[2018-06-19 17:36] LABS: ALBUMIN 3.6 GM/DL (3.2-4.5); BILIRUBIN,TOTAL 0.3 MG/DL (0.1-1.0); CALCIUM 9.5 MG/DL (8.5-10.1); CREATININE SERUM 1.09 MG/DL (0.60-1.30); TOTAL PROTEIN 7.5 GM/DL (6.4-8.2)
[2018-06-19 17:44] LABS: BILIRUBIN,URINE NEGATIVE (NEGATIVE); CLARITY,URINE CLEAR; COLOR,URINE YELLOW; GLUCOSE, URINE (UA) NEGATIVE (NEGATIVE); KETONES,URINE NEGATIVE (NEGATIVE); LEUKOCYTE ESTERASE ,URINE 1+ (NEGATIVE); NITRITE,URINE NEGATIVE (NEGATIVE); PH,URINE 7 (5-9); PROTEIN,URINE 2+ (NEGATIVE); UROBILINOGEN,URINE NORMAL (NORMAL)
[2018-06-19 17:56] LABS: BACTERIA,URINE FEW /HPF; SQUAMOUS EPITHELIAL CELL,UR 0-2 /HPF
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
[2018-06-19] MEDS ORDERED: AZIT500T5 PO (18:17)
[2018-06-19 18:22] VITALS: BP 139/75
[2018-06-25] MEDS ORDERED: CEFD300C3 PO (08:09)
== END 2018-06-19 18:30 | disposition home or self-care (01) ==
LOC: EDUNIT# 15:53 → ER 15:54
DX: E10.649 Type 1 diabetes mellitus with hypoglycemia without coma (principal); N39.0 Urinary tract infection, site not specified; I10 Essential (primary) hypertension; I27.0 Primary pulmonary hypertension; I48.91 Unspecified atrial fibrillation; I25.10 Atherosclerotic heart disease of native coronary artery without angina pectoris; F03.90 Unspecified dementia, unspecified severity, without behavioral disturbance, psychotic disturbance, mood disturbance, and anxiety; E78.00 Pure hypercholesterolemia, unspecified; G47.30 Sleep apnea, unspecified; F41.9 Anxiety disorder, unspecified; F32.9 Major depressive disorder, single episode, unspecified; J44.9 Chronic obstructive pulmonary disease, unspecified; Z86.718 Personal history of other venous thrombosis and embolism; Z87.01 Personal history of pneumonia (recurrent); Z80.51 Family history of malignant neoplasm of kidney; Z88.0 Allergy status to penicillin; Z85.3 Personal history of malignant neoplasm of breast; Z92.21 Personal history of antineoplastic chemotherapy; Z88.5 Allergy status to narcotic agent; Z88.2 Allergy status to sulfonamides; Z88.8 Allergy status to other drugs, medicaments and biological substances; Z79.82 Long term (current) use of aspirin; Z79.52 Long term (current) use of systemic steroids; Z79.4 Long term (current) use of insulin; Z79.01 Long term (current) use of anticoagulants; Z90.11 Acquired absence of right breast and nipple; Z98.890 Other specified postprocedural states; Z90.81 Acquired absence of spleen; Z90.89 Acquired absence of other organs; Z90.710 Acquired absence of both cervix and uterus
CPT/HCPCS: 36415; 80053; 81000; 82962; 85025; 87077; 87088; 87186; 96360

== ENCOUNTER → 2018-07-09 | Outpatient (CLI) | payer MEDICARE, MEDICAID ==
[~2018-07-09] MED LIST changes: +AZIT500T5 PO
--- NOTE | 2018-07-09 14:25 | Diagnostic Imaging Report ---
PROCEDURE: CT sinuses without contrast TECHNIQUE: Multiple contiguous axial images were obtained through the sinuses without the use of intravenous contrast. Coronal and sagittal reformations were then performed. INDICATION: Chronic sinus issues. The frontal sinus is clear. Ethmoid air cells and sphenoid sinus are clear. Bilateral maxillary sinuses as well as mastoid air cells are well aerated. No mucosal thickening or air-fluid levels are seen. The ostiomeatal complexes are patent bilaterally. There is slight nasal septal deviation to the right. IMPRESSION: No evidence of sinusitis. Dictated by: Dictated on workstation # [id number]
== END ==
LOC: RAD 14:01
PROVIDERS: ATTEND Internal Medicine
DX: J01.01 Acute recurrent maxillary sinusitis (principal)
CPT/HCPCS: 70486

== ENCOUNTER 2018-07-11 08:25 | Day surgery (SDC) | payer MEDICARE, MEDICAID ==
--- NOTE | 2018-06-03 13:25 | HISTORY AND PHYSICAL ---
DATE OF SERVICE: COLONOSCOPY H AND P HISTORY OF PRESENT ILLNESS: The patient is a 72-year-old white female referred by Dr. Christine for surveillance colonoscopy. She underwent colonoscopy 1 year ago at which time she had a sessile tubular adenoma noted at the hepatic flexure. It did have high-grade dysplastic features noted in the center of the polyp with no reported evidence for invasive carcinoma. She had another tubular adenoma without evidence for advance dysplasia removed from the mid transverse colon. She reports no changes in rather extensive past medical history. She has had baseline level of intermittent abdominal discomfort without bloating and without bright red blood per rectum, melena or reported change in weight. She is not aware of any family history for colon cancer. She also denies chills or fever. PAST MEDICAL HISTORY: Significant for nonobstructive coronary artery disease, history of hypertension, atrial fibrillation, type 2 diabetes mellitus, Meniere's disease and obstructive sleep apnea as well as a past history of breast cancer. PAST SURGICAL HISTORY: Significant for right mastectomy for breast cancer in 1994, she had a cholecystectomy in 1987, hysterectomy in 1986, appendectomy in 1962 and a tonsillectomy in 1958. ADDITIONAL PAST MEDICAL HISTORY: Significant for several episodes of lower extremity DVT and superficial thrombophlebitis for which the patient has been chronically on Xarelto after a long history of being on Coumadin. SOCIAL HISTORY: She currently lives at home with her , is disabled due to her multiple medical problems with no reported past smoking or drinking history. PHYSICAL EXAMINATION: GENERAL: Reveals a very pleasant overweight white female, who appears to be in no acute distress and she is wheelchair bound due to obesity, chronic back pain with deconditioning and we were unable to weigh her today. This was the case last year as well. VITAL SIGNS: Blood pressure was 140/76 with a heart rate of 70 and regular. HEENT: Examination is unremarkable. Oral cavity reveals a Mallampati class 2 configuration. NECK: Reveals no JVD, adenopathy or bruits. CHEST: Clear. CARDIOVASCULAR: Reveals a regular rate and rhythm with a 2/6 systolic ejection murmur heard best at second intercostal space and left lower sternal border without evidence for pulsus, parvus or tardus. No S3 or S4 were appreciated. ABDOMEN: Soft, supple, obese and nontender. No organomegaly or masses are noted, but sensitivity is significantly diminished by obesity. EXTREMITIES: Reveal chronic venous insufficiency change with 2 to 3+ edema. No evidence for ulceration is noted and the patient reports after a recent exacerbation with need for increasing diuretic therapy. She is back to about her usual baseline level of edema. ASSESSMENT: The patient is set up for surveillance colonoscopy. Attention to the hepatic flexure where a tubular adenoma with high-grade dysplasia was removed one year ago. Prep instructions with Suprep kit were given and questions were answered. I thank you for the referral of this pleasant lady. Sincerely, Job ID: [id number] DocumentID: [id number] Dictated Date: 06/03/2018 10:48:39 Dinkey Mechanic Date: 06/03/2018 11:36:07 Dictated By: YANG VALERA MD
--- NOTE | 2018-06-30 12:22 | HISTORY AND PHYSICAL ---
DATE OF SERVICE: ADDENDUM The patient is a 72-year-old white female, who we had originally scheduled for colonoscopy towards the end of May. The day prior to her test, she had hypoglycemic reaction with blood sugar down to 40. In the early afternoon, she had not had any calories in liquid diet, only having some sugarless popsicles and inadvertently took her regular dose of NovoLog around 23 units and several hours later, blood sugars were low. She came in with a current blood sugar log on 45 units of Tarceva each morning and 23 units of NovoLog before meals three times daily and has had no subsequent hypoglycemic symptomatology. She is set up for surveillance colonoscopy. She has had past history of colon polyps and it has been over 5 years since her last colonoscopy. PHYSICAL EXAMINATION: GENERAL: Reveals a pleasant white female, who appears to be in no acute distress. VITAL SIGNS: Blood pressure 140/76. CHEST: Clear. CARDIOVASCULAR: Reveal a regular rate and rhythm without significant murmur, S3 or S4. EXTREMITIES: Reveal trace edema without cyanosis or clubbing. ASSESSMENT: The patient was set up for repeat colonoscopy on the 07/11/2018. She had written instructions outlining the need to discontinue aspirin one week before the test, Xarelto 48 hours before the test and the day before the test, she is to take 25 units of Traciba and decrease her NovoLog to 10 units before meals. Discussed the need to have calories in her liquid diet and she has honey on hand should she start to feel low. She is to monitor her blood sugar more closely and we will hold insulin the morning of her dose. She will require anesthesia. She is extremely anxious and had difficulty with past colonoscopies per her report. Job ID: [id number] DocumentID: [id number] Dictated Date: 06/30/2018 11:55:02 Sales Correspondence Clerk Date: 06/30/2018 12:21:34 Dictated By: YANG VALERA MD [facility]ITALElm[facility]
--- NOTE | 2018-06-30 12:24 | HISTORY AND PHYSICAL ---
DATE OF SERVICE: ADDENDUM The patient was seen in the office on 06/30/2017. Job ID: [id number] DocumentID: [id number] Dictated Date: 06/30/2018 11:56:21 Senior Functional Analyst Date: 06/30/2018 12:24:01 Dictated By: YANG VALERA MD MTDD
[~2018-07-11] VITALS: Ht 175.3 cm; Wt 111.1 kg
[2018-07-11] MEDS ORDERED: LACTATED RINGERS 1,000 ML IV STA (08:37)
[2018-07-11] MEDS ORDERED: LACTATED RINGERS 1,000 ML IV ONE (08:40)
[2018-07-11 09:30] VITALS: BP 154/76
[2018-07-11] MEDS ORDERED: RT-ALBUINH IH (09:56)
[2018-07-11] MEDS ORDERED: PROPOFOL INJECTION 50 ML IV ONE (09:59)
[2018-07-11] MEDS ORDERED: LIDOCAINE JELLY 2% (XYLOCAINE) 5 ML TUBE ONE (10:01)
--- NOTE | 2018-07-11 10:03 | Pre-Op Note & Conscious Sedat ---
Pre-Operative Progress Note H&P Reviewed The H&P was reviewed, patient examined and no changes noted. Date H&P Reviewed: Jul 11, 2018 Time H&P Reviewed: 09:55 Conscious Sedation Pre-Proced ASA Class: 3 Airway Mallampati Classification: ([place] appropriate class) I. II. III, IV Lungs Heart ASA score ASA 1: a normal healthy patient ASA 2: a patient with a mild systemic disease (mid diabetes, controlled hypertension, obesity ASA 3: a patient with a severe systemic disease that limits activity (angina , COPD, prior Myocardial infarction) ASA 4: a patient with an incapacitating disease that is a constant threat to life (CHF, renal failure) ASA 5: a moribund patient not expected to survive 24 hrs. (ruptured aneurysm) ASA 6: a declared brain patient whose organs are being harvested. For emergent operations, add the letter E after the classification Grade 3 Sedation Plan: Analgesia, Amnesia, Plan communicated to team members, Discussed options with patient/fam, Discussed risks with patient/fam Note The patient is an appropriate candidate to undergo the planned procedure, sedation, and anesthesia. The patient immediately re-assessed prior to indication. YANG VALERA MD Jul 11, 2018 10:03
[2018-07-11] MEDS ORDERED: proPOfol 200 MG/20 ML (DIPRIVAN) VIAL IV ONE ×2 (10:44→11:00)
[2018-07-11] MEDS ORDERED: LIDOCAINE JELLY 2% (XYLOCAINE) 5 ML TUBE TOP ONE (11:00)
[2018-07-11 11:25] VITALS: BP 154/78
[2018-07-11 11:55] VITALS: BP 154/84
[2018-07-11 12:18] VITALS: BP 154/84
--- NOTE | 2018-07-11 14:03 | OPERATIVE REPORT ---
DATE OF SERVICE: COLONOSCOPY SUMMARY INDICATION FOR THE PROCEDURE: Surveillance. History of colon polyps. DESCRIPTION OF PROCEDURE: The patient was placed in the left lateral decubitus position. Prior to undergoing colonoscopy, a digital rectal evaluation was performed. Anal sphincter tone was somewhat lax, but the perianal reflex was intact. No abnormalities were noted to digital inspection of the anal canal or distal rectal vault. The colonoscope was then inserted into the rectum and under direct visualization advanced to the cecum. The cecum was identified by the identification of the ileocecal valve and cecal strap. Photographic documentation was obtained. A careful inspection was made with colonoscope withdrawn. FINDINGS: There was no evidence for internal or external hemorrhoids and the rectum was unremarkable. Several small to medium sigmoid diverticulum were present without evidence for diverticulitis. No other sigmoid colonic abnormalities were appreciated. The descending colon, splenic flexure, transverse colon, hepatic flexure, ascending colon and cecum were unremarkable. ASSESSMENT: Mild diverticular disease confined to the sigmoid colon was present with otherwise normal colonoscopy to the cecum. Considering the patient's age and significant medical comorbidities, IG would not advocate future surveillance colonoscopy. I thank you for the referral of this pleasant lady. Job ID: [id number] DocumentID: [id number] Dictated Date: 07/11/2018 11:41:12 Toilet Attendant Date: 07/11/2018 14:03:02 Dictated By: YANG VALERA MD
--- OUTSIDE RECORDS SUMMARY | 2018-07-11 17:10 | XMS REPORT ---
Author Author [facility] Address Unknown Care Team Providers Care Technical Instructor Name Role Phone RED PLASCENCIA Unavailable PROBLEMS Unknown Problems ALLERGIES Substance Reaction Event Type Date Status Sulfacetamide Sodium Unknown Drug Allergy Dec, Active Penicillin V Potassium Unknown Drug Allergy Dec, Active Nitrofurantoin Unknown Drug Allergy Dec, Active Codeine Sulfate Unknown Drug Allergy Dec, Active ENCOUNTERS Encounter Location Date Diagnosis [facility] [address] [id number] Dec, Dental caries K02.9 [facility] [address] [phone] Dec, Dental examination Z01.20 [facility] [phone] [place] [phone] Apr, Dental examination Z01.20 [facility] [phone] [place] [phone] Apr, Dental examination Z01.20 [facility] [phone] [place] [phone] Oct, Encounter for dental examination Z01.20 [facility] [id number] [place] [address] [phone] Jun, IMMUNIZATIONS No Known Immunizations SOCIAL HISTORY Never Assessed REASON FOR VISIT 1 WK TE PLAN OF CARE Activity Details Follow Up prn Reason:JOY VITAL SIGNS Blood pressure systolic 177 mmHg 2018-01-16 Blood pressure diastolic 64 mmHg 2018-01-16 MEDICATIONS Medication Instructions Dosage Frequency Start Date End Date Duration Status NovoLog Active Vitamin D Active Lactulose Not-Taking Oxcarbazepine Active Trileptal Not-Taking Hydrocodone-Acetaminophen 7.5-325 MG Orally every 4-6 hrs 1 or 2 tablets as needed [facility] PATIENT Jun, Active Furosemide Active Lactinex Not-Taking Famotidine Active BusPIRone HCl Active Xarelto Active Metformin HCl Active Coricidin HBP Cold/Flu Not-Taking Carafate Not-Taking Lasix Not-Taking Tradjenta Active Lyrica Active Digoxin Active Mucinex Not-Taking Zithromax 250 MG Orally Once a day 2 tablets on the first day, then 1 tablet daily for 4 days 24h 5 day(s) Active Gabapentin Not-Taking Clonidine HCl (Analgesia) Not-Taking Vitamin B 12 Active Magnesium Oxide Not-Taking Ativan Not-Taking Senna Not-Taking potassium Active Tramadol HCl Not-Taking Coreg Active Levemir Active Sanctura Not-Taking Flonase Not-Taking RESULTS No Results PROCEDURES Procedure Date Ordered Result Body Site EXTRAC ERUPTED TOOTH/EXPOSED ROOT Jan 16, 2018 INSTRUCTIONS MEDICATIONS ADMINISTERED No Known Medications MEDICAL [...]
--- OUTSIDE RECORDS SUMMARY | 2018-07-11 17:10 | XMS REPORT | Clinical Summary ---
Author Author [facility] Organization [facility] Address Unknown Phone Unavailable Care Team Providers Care Supervisor Asphalt Paving Name Role Phone Darien Salguero MD Unavailable Source Comments Some departments are not documenting in the electronic medical record. 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 Referred here by Dr. uLz for further evaluation. Both CT scans were [...] results. -- F/U with Dr. Sethi in [place] for further urological issues (already has an [...]
== END 2018-07-11 12:18 | disposition home or self-care (01) ==
LOC: ENDO 08:25
PROVIDERS: ATTEND Internal Medicine
DX: Z09 Encounter for follow-up examination after completed treatment for conditions other than malignant neoplasm (principal); Z86.010 Personal history of colon polyps; K57.30 Diverticulosis of large intestine without perforation or abscess without bleeding; E11.9 Type 2 diabetes mellitus without complications; I25.10 Atherosclerotic heart disease of native coronary artery without angina pectoris; I10 Essential (primary) hypertension; I48.91 Unspecified atrial fibrillation; G47.33 Obstructive sleep apnea (adult) (pediatric); H81.09 Meniere's disease, unspecified ear; Z85.3 Personal history of malignant neoplasm of breast; Z86.718 Personal history of other venous thrombosis and embolism; Z79.01 Long term (current) use of anticoagulants; Z90.11 Acquired absence of right breast and nipple
CPT/HCPCS: 82962

== ENCOUNTER → 2018-08-21 | Outpatient (CLI) | payer MEDICARE, MEDICAID ==
[~2018-08-21] MED LIST changes: -AMLO10TA2 PO; +AMLO10TA6 PO; -AMLO5TAB2 PO; +AMLO5TAB7 PO; +HYDR-4227 PO; -HYDR-756 PO; +METF-397 PO; +METF-399 PO; -METF10002 PO; -METF500T5 PO; +ONDA2VIACC IV; -ONDA4VIA28 IV; +OXCA300T18 PO; -OXCA600T PO; +OXCA600T10 PO
--- NOTE | 2018-08-21 19:56 | Diagnostic Imaging Report ---
EXAMINATION: Ultrasound of the left breast, limited. INDICATION: Followup exam. FINDINGS: The previous left breast ultrasound exam of 02/10/2018 noted a small slightly complicated 4 x 4 x 3 mm cyst in the 2 o'clock position of the left breast. This finding seemed stable on the diagnostic mammogram performed prior to this exam. On this study, there is again a benign-appearing fairly well-circumscribed hypoechoic lesion in the 2 o'clock position of the left breast, roughly 6 cm from the nipple. This measures 4 x 3 x 5 mm and would correspond to the finding of the previous exam. This hypoechoic lesion has the appearance of a simple cyst on this study. There is no solid mass identified. IMPRESSION: 1. There is a small benign-appearing simple cyst in the 2 o'clock position of the left breast. There is no evidence of malignancy. 2. The patient should have her annual bilateral screening mammogram on schedule in six months for continued evaluation. ACR BI-RADS Category 2: Benign findings. Dictated by: Dictated on workstation # [id number]
--- NOTE | 2018-08-22 22:52 | Diagnostic Imaging Report ---
Unilateral diagnostic left mammogram with 3-D tomosynthesis The current study was also evaluated with a Computer Aided Detection (CAD) system. 3-D tomosynthesis was also performed and reviewed. INDICATION: Followup cyst This study was compared to prior exams of 02/10/2018, 08/09/2017 and 08/07/2016. The previous diagnostic mammogram and ultrasound exam of 02/10/2018 noted a small benign-appearing complex cyst in the left breast at the 2 o'clock position. That density is again evident on this study and does not seem to have changed significantly. Ultrasound is pending for further evaluation. There are scattered fibroglandular densities in the left breast which could obscure a lesion. Overall, there does not appear to have been any significant change when compared to the prior studies. There is no primary or secondary sign of malignancy noted. IMPRESSION: 1. The small benign-appearing nodular density in the upper-outer aspect of the left breast seen previously is again evident and appear stable. Ultrasound is pending for further study. 2. There is no evidence for malignancy. ACR BI-RADS Category 0: Incomplete. (Needs additional imaging evaluation). Result letter will be mailed to the patient. Note: At least 10% of breast cancer is not imaged by mammography. Dictated by: Dictated on workstation # [id number]
== END ==
LOC: RAD 12:32
PROVIDERS: ATTEND Nurse Practitioner Adult Health
DX: Z12.31 Encounter for screening mammogram for malignant neoplasm of breast (principal); N60.02 Solitary cyst of left breast; R92.8 Other abnormal and inconclusive findings on diagnostic imaging of breast; Z85.3 Personal history of malignant neoplasm of breast
CPT/HCPCS: 76642

== ENCOUNTER 2018-09-12 10:09 | Observation (INO) | payer MEDICARE, MEDICAID ==
[~2018-09-12] VITALS: Ht 177.8 cm; Wt 112.9 kg
[2018-09-12] MEDS ORDERED: ASPIRIN 81 MG CHEW (CHILDREN'S ASA) PO ONE (10:15)
--- OUTSIDE RECORDS SUMMARY | 2018-09-12 10:15 | XMS REPORT | Clinical Summary ---
Author Author [facility] Organization [facility] Address Unknown Phone Unavailable Care Team Providers Care Dip Painter Name Role Phone Darien Salguero MD Unavailable Source Comments Some departments are not documenting in the electronic medical record. If you do not see the information that you expected, contact Release of Information in the Health Information Management department at [phone] for further assistance in locating additional records.[facility] Allergies Active Allergy Reactions Severity Noted [...] results. -- F/U with Dr. Sethi in [place] for further urological issues (already has an [...] (1 of 2 - PCV13) INFLUENZA VACCINE 06/25/2018 Results Not on filefrom Last 3 Months
[2018-09-12 10:29] LABS: BASOPHILS % (AUTO) 0 % (0-10); EOSINOPHILS # (AUTO) 0.1 10^3/uL (0.0-0.3); EOSINOPHILS % (AUTO) 1 % (0-10); HEMATOCRIT 37 % (35-52); HEMOGLOBIN 12.5 G/DL (11.5-16.0); LYMPHOCYTES # (AUTO) 1.1 X 10^3 (1.0-4.0); LYMPHOCYTES % (AUTO) 10 % (12-44); MEAN CORPUSCULAR HEMOGLOBIN 31 PG (25-34); MEAN CORPUSCULAR HGB CONC 34 G/DL (32-36); MEAN CORPUSCULAR VOLUME 90 FL (80-99); MEAN PLATELET VOLUME 12.1 FL (7.4-10.4); MONOCYTES # (AUTO) 0.3 X 10^3 (0.0-1.0); MONOCYTES % (AUTO) 2 % (0-12); NEUTROPHILS # (AUTO) 9.6 X 10^3 (1.8-7.8); NEUTROPHILS % (AUTO) 87 % (42-75); PLATELET COUNT 242 10^3/uL (130-400); RED BLOOD COUNT 4.09 10^6/uL (4.35-5.85); RED CELL DISTRIBUTION WIDTH 15.9 % (10.0-14.5)
[2018-09-12] MEDS ORDERED: NITROGLYCERIN 0.4 MG SL TABS BTL 25'S SL PRN (10:30)
[2018-09-12 10:44] LABS: INR 1.8 (0.8-1.4); PROTHROMBIN TIME PATIENT 20.9 SEC (12.2-14.7)
[2018-09-12 10:48] LABS: ALANINE AMINOTRANSFERASE 35 U/L (0-55); ALBUMIN 3.4 GM/DL (3.2-4.5); ALKALINE PHOSPHATASE 62 U/L (40-136); BILIRUBIN,TOTAL 0.5 MG/DL (0.1-1.0); BUN/CREATININE RATIO 21; CALCIUM 9.8 MG/DL (8.5-10.1); CARBON DIOXIDE 26 MMOL/L (21-32); CHLORIDE 96 MMOL/L (98-107); GFR ESTIMATED 49; GLUCOSE 350 MG/DL (70-105); MAGNESIUM 2.5 MG/DL (1.8-2.4); POTASSIUM 4.4 MMOL/L (3.6-5.0); SODIUM 137 MMOL/L (135-145); TOTAL PROTEIN 8.1 GM/DL (6.4-8.2)
[2018-09-12 10:53] LABS: BAND NEUTROPHILS 0 %; BASOPHILS % (MANUAL) 0 %; EOSINOPHILS % (MANUAL) 0 %; LYMPHOCYTES % (MANUAL) 14 %; MONOCYTES % (MANUAL) 1 %; NEUTROPHILS % (MANUAL) 85 %; RBC MORPH NORMAL
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
[2018-09-12 10:56] LABS: MYOGLOBIN SERUM 42.4 NG/ML (10.0-92.0)
--- NOTE | 2018-09-12 10:57 | Diagnostic Imaging Report ---
INDICATION: Substernal chest pain. Portable chest 10:38 AM FINDINGS: Heart size and pulmonary vascularity are normal. Lungs are clear. There are no effusions or pneumothoraces. IMPRESSION: Negative chest. Dictated by: Dictated on workstation # [id number]
--- OUTSIDE RECORDS SUMMARY | 2018-09-12 12:33 | XMS REPORT | Clinical Summary ---
Author Author [facility] Organization [facility] Address Unknown Phone Unavailable Care Team Providers Care Solar Energy Sales Specialist Name Role Phone Darien Salguero MD Unavailable Source Comments Some departments are not documenting in the electronic medical record. If you do not see the information that you expected, contact Release of Information in the Health Information Management department at [phone] for further assistance in locating additional records.[facility] [...] results. -- F/U with Dr. Sethi in [place] for further urological issues (already has an [...]
--- NOTE | 2018-09-12 12:50 | Consultation-Cardiology ---
HPI-Cardiology Cardiology Consultation: Date of Consultation 09/12/18 Date of Admission Attending Physician Robbie Bonilla MD Admitting Physician Lb Christine DO Consulting Physician Ash WEBSTER MD HPI: Time Seen by a Provider: 12:50 Chief Complaint: Chest pain. This is a 72-year-old lady who follows with Dr. Pavon. She has history of mild CAD on coronary angiography in 2010 and 2013. Apparently the coronary angiography in 2013 was done because of for non-ST elevation [place] but no significant stenosis was noted. Echocardiogram done in January 2017 shows normal LV function with myxomatous mitral valve with pulmonary hypertension. She has atrial fibrillation on oral anticoagulation. She presents with an episode of chest pain which was substernal with no significant radiation. She denies any shortness of breath, palpitation, syncope or near syncope. Review of Systems-Cardiology Review of Systems Constitutional: As described under HPI; No As described under HPI, No no symptoms reported, No chills, No fever, No lightheadedness Eyes: No As described under HPI, No no symptoms reported, No blindness, No blurred vision, No contact lenses, No drainage, No decreased acuity, No foreign body sensation, No pain, No vision change Ears/Nose/Throat: No As described under HPI, No no symptoms reported, No chronic hearing loss, No ear discharge, No ear pain, No nasal drainage, No ulcerations Respiratory: No no symptoms reported; As described under HPI; No As described under HPI, No cough, No orthopnea, No shortness of breath, No SOB with excertion Cardiovascular: No no symptoms reported; As described under HPI; No As described under HPI; chest pain; No edema, No irregular heart rate, No lightheadedness, No palpitations Gastrointestinal: No no symptoms reported, No As described under HPI, No abdomen distended, No abdominal pain, No blood streaked bowels, No constipation , No diarrhea, No nausea, No vomiting, No stool coloration changes Genitourinary: No As described under HPI, No burning, No dysuria, No discharge , No frequency, No flank pain, No hematuria, No urgency : Yes : No Skin: No rash, No skin related problems, No ulcerations Psychiatric/Neurological: No anxiety, No depression, No seizure, No focal weakness, No syncope Hematologic: No bleeding abnormalities All Other Systems Reviewed Negative Unless Noted: Yes WIT-[id number]-Ohrgzs Hx Patient Social History Alcohol Use: Denies Use Recreational Drug Use: No Smoking Status: Never a Smoker Type Used: Cigarettes 2nd Hand Smoke Exposure: No Recent Foreign Travel: No Recent Infectious Disease Expo: No Immunizations Up To Date Tetanus Booster (TDap): Unknown Date of Pneumonia Vaccine: Sep 05, 2012 Date of Influenza Vaccine: Aug 25, 2018 Past Medical History PMH As described under Assessment. Family Medical History Family History: BULBAR POLIO G8 BROTHER Diabetes mellitus G8 BROTHER UNCLE FH: cancer G8 BROTHER FH: kidney cancer G8 SISTER Allergies and Home Medications Allergies Coded Allergies: Penicillins (Verified Allergy, Mild, 06/16/18) codeine (Verified Allergy, Mild, PT TAKES HYDROCODONE AT HOME, 06/16/18) nitrofurantoin (Verified Allergy, Mild, RASH, 06/16/18) ITCHING/RASH pregabalin (Verified Allergy, Unknown, 06/16/18) sulfur dioxide (Verified Allergy, Unknown, 06/16/18) Home Medications Albuterol Sulfate 1 Puff Puff, 2 PUFF IH Q6H PRN for SHORTNESS OF BREATH, ( Reported) 1 PUFF = 90 MCG Amlodipine Besylate 5 Mg Tablet, 5 MG PO DAILY, (Reported) Aspirin 81 Mg Tablet.dr, 81 MG PO DAILY, (Reported) Buspirone HCl 15 Mg Tablet, 15 MG PO TID, (Reported) Carvedilol 25 Mg Tablet, 25 MG PO BID, (Reported) Cetirizine HCl 10 Mg Tablet, 10 MG PO DAILY, (Reported) Cholecalciferol 5,000 Unit Capsule, 5,000 UNIT PO DAILY, (Reported) Clonidine HCl 0.1 Mg Tablet, 0.1 MG PO BID, (Reported) Clonidine HCl 0.1 Mg Tablet, 0.1 MG PO 1200 PRN for BP ABOVE 150/90, (Reported) Cyanocobalamin 1,000 Mcg/Ml Inj, 1,000 MCG IM Th, (Reported) Digoxin 125 Mcg Tablet, 0.125 MCG PO DAILY, (Reported) IF HEART RATE IS > 60 Famotidine 20 Mg Tablet, 20 MG PO DAILY, (Reported) Fluticasone Propionate 16 Gm [place].susp, 16 GM NS BID PRN for CONGESTION, ( Reported) Furosemide 40 Mg Tablet, 80 MG PO DAILY, (Reported) TAKES 2 (40MG) TABLETS Gabapentin 300 Mg Capsule, 300 MG PO TID, (Reported) Hydrocodone/Acetaminophen 1 Each Tablet, 1 TAB PO Q6H PRN for PAIN-MODERATE, ( Reported) Insulin Aspart 300 Units/3 Ml Solution, 23 UNITS SC TIDAC, (Reported) Insulin Degludec 100 Unit/1 Ml Insuln.pen, 45 UNIT SQ DAILY, (Reported) Lisinopril 40 Mg Tablet, 40 MG PO DAILY, (Reported) Magnesium Oxide 400 Mg Tablet, 400 MG PO 1200, (Reported) Menthol/Lanolin/Calamine/Znox 71 Gm Oint, TP BID PRN for BARRIER, (Reported) Metformin HCl 500 Mg Tablet, 500 MG PO BID, (Reported) Metolazone 2.5 Mg Tablet, 2.5 MG PO MoWeFr, (Reported) Oxcarbazepine 300 Mg Tablet, 300 MG PO DAILY, (Reported) Potassium Chloride 10 Meq Tablet.er, 10 MEQ PO DAILY, (Reported) Rivaroxaban 20 Mg Tablet, 20 MG PO HS, (Reported) Sodium Chloride/Aloe Vera 14.1 Gm Gel..gram., NS DAILY PRN for MINERE'S DISEASE, (Reported) Trospium Chloride 20 Mg Tablet, 20 MG PO BID, (Reported) Vit C/Vit E/Lutein/Min/[place]worth-3 1 Each Capsule, 1 CAP PO DAILY, (Reported) Patient Home Medication List Home Medication List Reviewed: Yes Physical Exam-Cardiology Physical Exam Vital Signs/I&O 09/13/18 09/13/18 09/13/18 09/13/18 04:00 07:00 08:00 08:00 Temp 97.8 97.4 Pulse 65 66 64 Resp 16 16 B/P (MAP) 133/66 (88) 152/68 (96) Pulse Ox 91 95 97 O2 Delivery Room Air Room Air Room Air 09/13/18 00:00 Intake Total 1490 ml Balance 1490 ml Capillary Refill : Less Than 3 Seconds Constitutional: appears stated age, AAO x 3; No apparent distress; well- developed, well-nourished HEENT: PERRL; No normal ENT inspection, No TMs normal, No pharynx normal, No scleral icterus (R), No scleral icterus (L), No pale conjunctivae (R), No pale conjunctivae (L), No photophobia, No TM abnormal (R), No TM abnormal (L), No pharyngeal erythema, No tonsillar exudate, No other, No discharge, No EOMI; hearing is well preserved; No hard of hearing; oral hygience is good; No ulceration, No xanthelasmas are seen Neck: No non-tender, No full range of motion, No supple, No normal inspection, No carotid bruit, No limited range of motion, No lymphadenopathy (R), No lymphadenopathy (L), No tender lateral, No tender midline, No thyromegaly, No other; carotid pulses are 2 + bilaterally; No with good upstrokes Respiratory: No accessory muscle use, No respiratory distress, No chest tender , No chest expansion is symmetric; chest is bilaterally symmetric; No lungs clear to percussion; lungs clear to auscultation; No crackles, No rhonchi, No rales, No stridor, No wheezing, No pleural rub, No other Cardiovascular: irregularly irregular; No extra beats, No parasternal heave is noted, No JVD, No edema, No bradycardia, No tachycardia, No point of maximal impulse, No cardiac thrills are palpable; S1 and S2; No gallop/S3, No gallop/S4 , No diastolic murmur, No systolic murmur, No friction rub, No click, No other Gastrointestinal: No tender, No soft, No round, No distended, No pulsatile mass , No organomegaly, No guarding, No rebound, No tenderness, No hernia, No mass, No audible bowel sounds, No abnormal bowel sounds, No abdominal bruits, No spleenomegaly, No other Rectal: deferred Extremities: No normal range of motion, No non-tender, No normal inspection, No pedal edema, No calf tenderness, No normal capillary refill, No pelvis stable , No calf tenderness, No inflammation, No pedal edema, No slow capillary refill , No swelling, No other, No abrasion, No clubbing, No cyanosis, No ecchymosis, No laceration, No no lower extremity edema bilateral, No significant edema, No tenderness, No wound Neurologic/Psychiatric: no motor/sensory deficits, alert, normal mood/affect, oriented x 3, power is 5/5 both on sides Skin: No rash, No ulcerations Data Review Labs Laboratory Tests 09/12/18 15:01: Glucometer 452*H 09/12/18 19:43: Glucometer 343H 09/13/18 05:10: White Blood Count 8.1, Red Blood Count 3.91L, Hemoglobin 11.5, Hematocrit 36, Mean Corpuscular Volume 91, Mean Corpuscular Hemoglobin 29, Mean Corpuscular Hemoglobin Concent 32, Red Cell Distribution Width 16.1H, Platelet Count 215, Mean Platelet Volume 11.9H, Neutrophils (%) (Auto) 78H, Lymphocytes (%) (Auto) 16, Monocytes (%) (Auto) 5, Eosinophils (%) (Auto) 1, Basophils (%) (Auto) 0, Neutrophils # (Auto) 6.3, Lymphocytes # (Auto) 1.3, Monocytes # (Auto) 0.4, Eosinophils # (Auto) 0.1, Basophils # (Auto) 0.0, Sodium Level 138, Potassium Level 3.8, Chloride Level 97L, Carbon Dioxide Level 29, Anion Gap 12, Blood Urea Nitrogen 21H, Creatinine 0.99, Estimat Glomerular Filtration Rate 55, BUN/ Creatinine Ratio 21, Glucose Level 240H, Calcium Level 8.8, Corrected Calcium 9.6, Total Bilirubin 0.3, Aspartate Amino Transf (AST/SGOT) 58H, Alanine Aminotransferase (ALT/SGPT) 46, Alkaline Phosphatase 53, Total Creatine Kinase 34, Myoglobin 49.3, Troponin I < 0.30, Total Protein 7.0, Albumin 3.0L, Triglycerides Level 107, Cholesterol Level 145, LDL Cholesterol Direct 80, VLDL Cholesterol 21, HDL Cholesterol 48 09/13/18 06:40: Glucometer 264H 09/13/18 09:27: Glucometer 246H ECG Impression ECG Initial ECG Impression: Atrial Fibrillation Comment Downsloping ST segment and T-wave inversion noted A/P-Cardiology Assessment/Admission Diagnosis Admission Diagnosis Chest pain Shortness of breath DVT Hypertension, Atrial fibrillation Plan Assessment/Plan Chest pain, atypical in presentation. EKG shows downsloping ST segment with T wave inversion. First troponin is negative. We will admit to rule out ACS with serial negative troponin. Mild CAD on card caths of 2010 and 2013 Relatively remote syncope for which she has undergone a w/u with Dr Pavon and specific cause was not found. Patient underwent cardiac catheterization in 2013 revealing nonobstructive disease. Tilt table test negative, 2-D echocardiogram revealed normal EF. No recent episodes Chronic A Fib with good rate control; stroke prophylaxis with Xarelto Patent [place], 1.1 cm with [id number] shunt per 2-D echocardiogram 2014 Pulmonary hypertension-pulmonary artery pressure 50 mmHg per 2-D echocardiogram January 2017. Possibly due to COPD. continue to monitor Chronic DVT to lower extremity- maintained on Xarelto, having worsening pain at this time, reevaluate ultrasound Hypertension, well controlled. Hyperlipidemia, continue home medications Mild bilateral carotid stenosis, followed with Dr. Pavon. H/o mild to moderate mitral regurgitation and mild tricuspid regurgitation Obesity, BMI currently 30. Reports 130 lbs wgt loss in [id number]. This is being managed by Dr Christine, her pcp Essential tremor, chronic Diabetes mellitus, managed by Dr. Romero. History of renal cysts, has been followed by Dr. Sethi. History of breast cancer, followed and managed by Dr. Fernández. H/o Bipolar disorder H/o Mnires disease H/o anxiety and depression, currently controlled Thank you for your consultation. Please call me if you have any questions. Rebeca Webster MD, FACP, FACC, FSCAI, FHRS, CCDS Interventional Cardiology Cardiac Electrophysiology Vascular Medicine and Endovascular Interventions Clinical Quality Measures AMI/AHF: ASA po Prior to arrival: Yes Ash WEBSTER MD Sep 12, 2018 12:50
[2018-09-12] MEDS ORDERED: NS IV 1000 ML 1,000 ML IV SCH (13:45)
[2018-09-12] MEDS ORDERED: CATHETER FLUSH 10 ML SYR IV PRN (13:45)
[2018-09-12] MEDS ORDERED: inSUlin ASPART (NovoLOG) 1 UNIT/0.01 ML (CHARGE PER UNIT) SC SCH (14:30)
[2018-09-12] MEDS: CATHETER FLUSH 10 ML SYR IV SCH ×2 (15:11→22:01)
[2018-09-12] MEDS ORDERED: inSUlin (REGULAR) HUMAN 1 UNIT/0.01 ML (CHARGE PER UNIT) SC ONE (15:15)
[2018-09-12] MEDS ORDERED: inSUlin ASPART (NovoLOG) 1 UNIT/0.01 ML (CHARGE PER UNIT) SC NR (15:15)
[2018-09-12] MEDS ORDERED: FLUT16SP22 NS (15:27)
[2018-09-12] MEDS ORDERED: CNC1KV IM (15:27)
[2018-09-12] MEDS ORDERED: AMOX1TAB11 PO (15:28)
[2018-09-12] MEDS ORDERED: MENT71OI TP (15:28)
[2018-09-12] MEDS ORDERED: VIT1CAPS9 PO (15:28)
[2018-09-12] MEDS ORDERED: CLON0.1T PO ×2 (15:28)
[2018-09-12] MEDS ORDERED: ASPI-983 PO (15:28)
[2018-09-12] MEDS ORDERED: HYDR-3816 PO (15:28)
[2018-09-12] MEDS ORDERED: SODI14.12 NS (15:28)
[2018-09-12 16:00] VITALS: BP 139/65
[2018-09-12] MEDS ORDERED: cloNIDine 0.1 MG (CATAPRES) TAB PO PRN (16:15)
[2018-09-12] MEDS ORDERED: FLUTICASONE NASAL SPRAY (FLONASE) 16 GM BTL NS PRN (16:15)
[2018-09-12] MEDS ORDERED: PATIENT MAY USE OWN MEDS, ALL MC SCH ×3 (16:15)
[2018-09-12] MEDS ORDERED: RT-ALBUTEROL SULF 2.5 MG/3 ML PRE-MIX VIAL IH PRN (16:15)
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
[2018-09-12 19:25] VITALS: BP 155/70
[2018-09-12] MEDS ORDERED: RIVAROXABAN 20 MG TABLET (XARELTO) PO SCH (21:00)
[2018-09-12] MEDS: TROSPIUM 20 MG (SANCTURA) TAB PO SCH (21:57)
[2018-09-12] MEDS: NOVOLOG FLEX PEN SQ SCH (21:57)
[2018-09-12] MEDS: cloNIDine 0.1 MG (CATAPRES) TAB PO SCH (21:58)
[2018-09-12] MEDS: Carvedilol 25 MG TABLET PO SCH (21:59)
[2018-09-12] MEDS: busPIRone 15 MG (BUSPAR) TABLET PO SCH (21:59)
[2018-09-12] MEDS: GABAPENTIN 300 MG (NEURONTIN) CAP PO SCH (22:00)
[2018-09-13] VITALS: BP 149/65
[2018-09-13] MEDS ORDERED: HYDROcodone/APAP 5 MG/325 MG (LORTAB) TAB PO PRN (00:45)
[2018-09-13 04:00] VITALS: BP 133/66
[2018-09-13 05:23] LABS: BASOPHILS % (AUTO) 0 % (0-10); EOSINOPHILS # (AUTO) 0.1 10^3/uL (0.0-0.3); EOSINOPHILS % (AUTO) 1 % (0-10); HEMATOCRIT 36 % (35-52); HEMOGLOBIN 11.5 G/DL (11.5-16.0); LYMPHOCYTES # (AUTO) 1.3 X 10^3 (1.0-4.0); LYMPHOCYTES % (AUTO) 16 % (12-44); MEAN CORPUSCULAR HEMOGLOBIN 29 PG (25-34); MEAN CORPUSCULAR HGB CONC 32 G/DL (32-36); MEAN CORPUSCULAR VOLUME 91 FL (80-99); MEAN PLATELET VOLUME 11.9 FL (7.4-10.4); MONOCYTES # (AUTO) 0.4 X 10^3 (0.0-1.0); MONOCYTES % (AUTO) 5 % (0-12); NEUTROPHILS # (AUTO) 6.3 X 10^3 (1.8-7.8); NEUTROPHILS % (AUTO) 78 % (42-75); PLATELET COUNT 215 10^3/uL (130-400); RED BLOOD COUNT 3.91 10^6/uL (4.35-5.85); RED CELL DISTRIBUTION WIDTH 16.1 % (10.0-14.5); WHITE BLOOD COUNT 8.1 10^3/uL (4.3-11.0)
[2018-09-13 05:46] LABS: CHOLESTEROL 145 MG/DL (< 200); HDL CHOLESTEROL 48 MG/DL (40-60); TRIGLYCERIDES 107 MG/DL (<150); VLDL CHOLESTEROL 21 MG/DL (5-40)
[2018-09-13 05:48] LABS: ALANINE AMINOTRANSFERASE 46 U/L (0-55); ALKALINE PHOSPHATASE 53 U/L (40-136); BILIRUBIN,TOTAL 0.3 MG/DL (0.1-1.0); BUN/CREATININE RATIO 21; CALCIUM 8.8 MG/DL (8.5-10.1); CARBON DIOXIDE 29 MMOL/L (21-32); CHLORIDE 97 MMOL/L (98-107); CREATINE KINASE 34 U/L (29-168); CREATININE SERUM 0.99 MG/DL (0.60-1.30); GFR ESTIMATED 55; GLUCOSE 240 MG/DL (70-105); POTASSIUM 3.8 MMOL/L (3.6-5.0); SODIUM 138 MMOL/L (135-145)
[2018-09-13 06:00] VITALS: BP 133/66
[2018-09-13 06:06] LABS: MYOGLOBIN SERUM 49.3 NG/ML (10.0-92.0)
[2018-09-13] MEDS: TROSPIUM 20 MG (SANCTURA) TAB PO SCH (06:16)
[2018-09-13] MEDS: NOVOLOG FLEX PEN SQ SCH ×2 (06:16→09:59)
[2018-09-13] MEDS: CATHETER FLUSH 10 ML SYR IV SCH (06:17)
[2018-09-13] MEDS ORDERED: KCL 10 MEQ TAB (MICRO K) PO SCH (07:00)
[2018-09-13 08:00] VITALS: BP 152/68
[2018-09-13] MEDS ORDERED: ASPIRIN E.C. 81 MG (ECOTRIN) TAB PO SCH (09:00)
[2018-09-13] MEDS ORDERED: FUROSEMIDE 40 MG (LASIX) TAB PO SCH (09:00)
[2018-09-13] MEDS ORDERED: FAMOTIDINE 20 MG (PEPCID) TABLET PO SCH (09:00)
[2018-09-13] MEDS ORDERED: lisINopril 40 MG (PRINIVIL) TABLET PO SCH (09:00)
[2018-09-13] MEDS ORDERED: amLODIPine 5 MG (NORVASC) TAB PO SCH (09:00)
[2018-09-13] MEDS ORDERED: LORATADINE (CLARITIN) 10 MG TAB PO SCH (09:00)
[2018-09-13] MEDS ORDERED: OXcarbazepine (TRILEPTAL) 300 MG TAB PO SCH (09:00)
[2018-09-13] MEDS ORDERED: DIGOXIN 0.125 MG (LANOXIN) TAB PO SCH (09:00)
[2018-09-13] MEDS: Carvedilol 25 MG TABLET PO SCH (09:09)
[2018-09-13] MEDS: busPIRone 15 MG (BUSPAR) TABLET PO SCH ×2 (09:10→12:46)
[2018-09-13] MEDS: cloNIDine 0.1 MG (CATAPRES) TAB PO SCH (09:12)
[2018-09-13] MEDS: GABAPENTIN 300 MG (NEURONTIN) CAP PO SCH ×2 (09:14→12:47)
--- NOTE | 2018-09-13 09:26 | Discharge Summary-Hospitalist ---
Diagnosis/Chief Complaint Date of Admission Sep 12, 2018 at 12:29 Date of Discharge Discharge Date: Sep 13, 2018 Admission Diagnosis A/P right upper quadrant abdominal pain and chest pain. I am personally not impressed with her EKG there is nondiagnostic anterior ST changes aggravated by a little artifact as well as baseline wander will be obtaining serial troponin levels and will defer to cardiology considering that she does have a history of coronary artery disease. We'll continue her other home medications. 2. Chronic afibrillation continues her also. 3. Type II diabetes mellitus insulin requiring continual basal bolus insulin and blood sugar monitoring. 4. Hypertension continue clonidine and amlodipine. Discharge Summary Discharge Physical Exam Allergies: Coded Allergies: Penicillins (Verified Allergy, Mild, 06/16/18) codeine (Verified Allergy, Mild, PT TAKES HYDROCODONE AT HOME, 06/16/18) nitrofurantoin (Verified Allergy, Mild, RASH, 06/16/18) ITCHING/RASH pregabalin (Verified Allergy, Unknown, 06/16/18) sulfur dioxide (Verified Allergy, Unknown, 06/16/18) Vitals & I&Os Vital Signs Date Time Temp Pulse Resp B/P (MAP) Pulse Ox O2 Delivery O2 Flow Rate FiO2 09/13/18 08:00 97.4 64 16 152/68 (96) 95 Room Air General Appearance: No Apparent Distress, Obese Respiratory: Chest Non Tender, Lungs Clear, Normal Breath Sounds, No Accessory Muscle Use, No Respiratory Distress Cardiovascular: No Edema, No Gallop, No JVD, No Murmur, Irregularly Irregular Gastrointestinal: Normal Bowel Sounds, No Organomegaly, No Pulsatile Mass, Non Tender, Soft Hospital Course Patient presented to the emergency room with a several hour history of right upper quadrant abdominal pain that then radiated into the chest. It initially had been just right upper quadrant pain worse when bending forward. When she had radiation of the chest she became concerned as she does have a history of coronary artery disease. Is not similar to previous anginal discomforts that she has had prior to her previous acute coronary syndromes. The emergency room physician was concerned about anterior ST changes however on review there were quite nondiagnostic and aggravated by baseline wander. She had no subsequent discomfort overnight with negative serial troponins studies and no recurrence of discomfort. Discussed the possible neuropathic etiology as there is a thoracic radicular sounding component but no evidence for acute coronary syndrome. Patient reports she does have an appointment see Dr. Christine this coming week. She is advised to keep this follow-up and continue her home medications unchanged. Labs (last 24 hrs) Laboratory Tests 09/12/18 10:23: White Blood Count 11.0, Red Blood Count 4.09L, Hemoglobin 12.5, Hematocrit 37, Mean Corpuscular Volume 90, Mean Corpuscular Hemoglobin 31, Mean Corpuscular Hemoglobin Concent 34, Red Cell Distribution Width 15.9H, Platelet Count 242, Mean Platelet Volume 12.1H, Neutrophils (%) (Auto) 87H, Lymphocytes (%) (Auto) 10L, Monocytes (%) (Auto) 2, Eosinophils (%) (Auto) 1, Basophils (%) (Auto) 0, Neutrophils # (Auto) 9.6H, Lymphocytes # (Auto) 1.1, Monocytes # (Auto) 0.3, Eosinophils # (Auto) 0.1, Basophils # (Auto) 0.0, Neutrophils % (Manual) 85, Lymphocytes % (Manual) 14, Monocytes % (Manual) 1, Eosinophils % (Manual) 0, Basophils % (Manual) 0, Band Neutrophils 0, Blood Morphology Comment NORMAL, Prothrombin Time 20.9H, INR Comment 1.8H, Activated Partial Thromboplast Time 33 , Sodium Level 137, Potassium Level 4.4, Chloride Level 96L, Carbon Dioxide Level 26, Anion Gap 15H, Blood Urea Nitrogen 23H, Creatinine 1.10, Estimat Glomerular Filtration Rate 49, BUN/Creatinine Ratio 21, Glucose Level 350H, Calcium Level 9.8, Corrected Calcium 10.3H, Magnesium Level 2.5H, Total Bilirubin 0.5, Aspartate Amino Transf (AST/SGOT) 92H, Alanine Aminotransferase ( ALT/SGPT) 35, Alkaline Phosphatase 62, Myoglobin 42.4, Troponin I < 0.30, Total Protein 8.1, Albumin 3.4 09/12/18 15:01: Glucometer 452*H 09/12/18 19:43: Glucometer 343H 09/13/18 05:10: White Blood Count 8.1, Red Blood Count 3.91L, Hemoglobin 11.5, Hematocrit 36, Mean Corpuscular Volume 91, Mean Corpuscular Hemoglobin 29, Mean Corpuscular Hemoglobin Concent 32, Red Cell Distribution Width 16.1H, Platelet Count 215, Mean Platelet Volume 11.9H, Neutrophils (%) (Auto) 78H, Lymphocytes (%) (Auto) 16, Monocytes (%) (Auto) 5, Eosinophils (%) (Auto) 1, Basophils (%) (Auto) 0, Neutrophils # (Auto) 6.3, Lymphocytes # (Auto) 1.3, Monocytes # (Auto) 0.4, Eosinophils # (Auto) 0.1, Basophils # (Auto) 0.0, Sodium Level 138, Potassium Level 3.8, Chloride Level 97L, Carbon Dioxide Level 29, Anion Gap 12, Blood Urea Nitrogen 21H, Creatinine 0.99, Estimat Glomerular Filtration Rate 55, BUN/ Creatinine Ratio 21, Glucose Level 240H, Calcium Level 8.8, Corrected Calcium 9.6, Total Bilirubin 0.3, Aspartate Amino Transf (AST/SGOT) 58H, Alanine Aminotransferase (ALT/SGPT) 46, Alkaline Phosphatase 53, Myoglobin 49.3, Troponin I < 0.30, Total Protein 7.0, Albumin 3.0L, Total Creatine Kinase 34, Triglycerides Level 107, Cholesterol Level 145, LDL Cholesterol Direct 80, VLDL Cholesterol 21, HDL Cholesterol 48 09/13/18 06:40: Glucometer 264H Patient resulted labs reviewed. Pending Labs Laboratory Tests 09/13/18 05:10: White Blood Count 8.1, Red Blood Count 3.91, Hemoglobin 11.5, Hematocrit 36, Mean Corpuscular Volume 91, Mean Corpuscular Hemoglobin 29, Mean Corpuscular Hemoglobin Concent 32, Red Cell Distribution Width 16.1, Platelet Count 215, Mean Platelet Volume 11.9, Neutrophils (%) (Auto) 78, Lymphocytes (%) (Auto) 16 , Monocytes (%) (Auto) 5, Eosinophils (%) (Auto) 1, Basophils (%) (Auto) 0, Neutrophils # (Auto) 6.3, Lymphocytes # (Auto) 1.3, Monocytes # (Auto) 0.4, Eosinophils # (Auto) 0.1, Basophils # (Auto) 0.0, Sodium Level 138, Potassium Level 3.8, Chloride Level 97, Carbon Dioxide Level 29, Anion Gap 12, Blood Urea Nitrogen 21, Creatinine 0.99, Estimat Glomerular Filtration Rate 55, BUN/ Creatinine Ratio 21, Glucose Level 240, Calcium Level 8.8, Corrected Calcium 9.6 , Total Bilirubin 0.3, Aspartate Amino Transf (AST/SGOT) 58, Alanine Aminotransferase (ALT/SGPT) 46, Alkaline Phosphatase 53, Total Creatine Kinase 34, Myoglobin 49.3, Troponin I < 0.30, Total Protein 7.0, Albumin 3.0, Triglycerides Level 107, Cholesterol Level 145, LDL Cholesterol Direct 80, VLDL Cholesterol 21, HDL Cholesterol 48 09/13/18 06:40: Glucometer 264 Discussion & Recommendations Discharge Planning: >30 minutes discharge planning Discharge Home Medications: Active Scripts Active Reported Ocuvite Softgel (Vit C/Vit E/Lutein/Min/[place]-3) 1 Each Capsule 1 Cap PO DAILY [place] Saline Nasal Gel (Sodium Chloride/Aloe Vera) 14.1 Gm Gel..gram. NS DAILY PRN Calmoseptine Ointment (Menthol/Lanolin/Calamine/Znox) 71 Gm Oint TP BID PRN Clonidine HCl 0.1 Mg Tablet 0.1 Mg PO 1200 PRN Clonidine HCl 0.1 Mg Tablet 0.1 Mg PO BID Aspirin EC (Aspirin) 81 Mg Tablet.dr 81 Mg PO DAILY Hydrocodone-Acetamin 7.5-325 (Hydrocodone/Acetaminophen) 1 Each Tablet 1 Tab PO Q6H PRN Amox Tr-K Clv 500-125 mg Tab (Amoxicillin/Potassium Clav) 1 Each Tablet 1 Tab PO BID 7 Days 7 DAY THEARPY FILLED 09-06-18 (2 TABS LEFT) Cyanocobalamin Injection (Cyanocobalamin) 1,000 Mcg/Ml Inj 1,000 Mcg IM TH Fluticasone Propionate 16 Gm [place].susp 16 Gm NS BID PRN Ventolin Hfa (Albuterol Sulfate) 1 Puff Puff 2 Puff IH Q6H PRN 1 PUFF = 90 MCG Tresiba Flextouch U-100 (Insulin Degludec) 100 Unit/1 Ml Insuln.pen 45 Unit SQ DAILY Vitamin D (Cholecalciferol) 5,000 Unit Capsule 5,000 Unit PO DAILY Metolazone 2.5 Mg Tablet 2.5 Mg PO MOWEFR Amlodipine Besylate 5 Mg Tablet 5 Mg PO DAILY Gabapentin 300 Mg Capsule 300 Mg PO TID Zyrtec (Cetirizine HCl) 10 Mg Tablet 10 Mg PO DAILY Xarelto (Rivaroxaban) 20 Mg Tablet 20 Mg PO HS Carvedilol 25 Mg Tablet 25 Mg PO BID Acid Integration Aide (FAMOTIDINE) (Famotidine) 20 Mg Tablet 20 Mg PO DAILY Trospium Chloride 20 Mg Tablet 20 Mg PO BID Lisinopril 40 Mg Tablet 40 Mg PO DAILY Potassium Chloride 10 Meq Tablet.er 10 Meq PO DAILY Digoxin 125 Mcg Tablet 0.125 Mcg PO DAILY IF HEART RATE IS > 60 Metformin HCl 500 Mg Tablet 500 Mg PO BID Oxcarbazepine 300 Mg Tablet 300 Mg PO DAILY Novolog Flexpen (Insulin Aspart) 300 Units/3 Ml Solution 23 Units SC TIDAC Furosemide 40 Mg Tablet 80 Mg PO DAILY TAKES 2 (40MG) TABLETS Magnesium Oxide 400 Mg Tablet 400 Mg PO 1200 Buspirone HCl 15 Mg Tablet 15 Mg PO TID Instructions to patient/family Please see electronic discharge instructions given to patient. Clinical Quality Measures AMI/AHF: ASA po Prior to arrival: Yes DVT/VTE Risk/Contraindication: Risk Factor Score Per Nursin RFS Level Per Nursing on Admit: 4+=Very High Copy Copies To 2: DANY CHRISTINE MARK D MD Sep 13, 2018 09:26
[2018-09-13 12:00] VITALS: BP 130/62
[2018-09-13] MEDS ORDERED: MAGNESIUM OXIDE (MAG-OX)400 MG TAB PO SCH (12:00)
--- NOTE | 2018-09-13 13:31 | Cardiology Progress Note ---
Cardiology SOAP Progress Note Subjective: Further chest pain. Objective: I&O/Vital Signs 09/13/18 09/13/18 09/13/18 09/13/18 04:00 07:00 08:00 08:00 Temp 97.8 97.4 Pulse 65 66 64 Resp 16 16 B/P (MAP) 133/66 (88) 152/68 (96) Pulse Ox 91 95 97 O2 Delivery Room Air Room Air Room Air 09/13/18 00:00 Intake Total 1490 ml Balance 1490 ml Weight (Pounds): 249 Weight (Ounces): 0.0 Weight (Calculated Kilograms): [id number] Constitutional: appears stated age, AAO x 3; No apparent distress; well- developed, well-nourished Respiratory: No accessory muscle use, No respiratory distress, No chest tender , No chest expansion is symmetric; chest is bilaterally symmetric; No lungs clear to percussion; lungs clear to auscultation; No crackles, No rhonchi, No rales, No stridor, No wheezing, No pleural rub, No other Cardiovascular: irregularly irregular; No extra beats, No parasternal heave is noted, No JVD, No edema, No bradycardia, No tachycardia, No point of maximal impulse, No cardiac thrills are palpable; S1 and S2; No gallop/S3, No gallop/S4 , No diastolic murmur, No systolic murmur, No friction rub, No click, No other Gastrointestional: No tender, No soft, No round, No distended, No pulsatile mass, No organomegaly, No guarding, No rebound, No tenderness, No hernia, No mass, No audible bowel sounds, No abnormal bowel sounds, No abdominal bruits, No spleenomegaly, No other Extremities: No normal range of motion, No non-tender, No normal inspection, No pedal edema, No calf tenderness, No normal capillary refill, No pelvis stable , No calf tenderness, No inflammation, No pedal edema, No slow capillary refill , No swelling, No other, No abrasion, No clubbing, No cyanosis, No ecchymosis, No laceration, No no lower extremity edema bilateral, No significant edema, No tenderness, No wound Neurologic/Psychiatric: no motor/sensory deficits, alert, normal mood/affect, oriented x 3, power is 5/5 both on sides Skin: No rash, No ulcerations Results/Procedures: Labs Laboratory Tests 09/12/18 15:01: Glucometer 452*H 09/12/18 19:43: Glucometer 343H 09/13/18 05:10: White Blood Count 8.1, Red Blood Count 3.91L, Hemoglobin 11.5, Hematocrit 36, Mean Corpuscular Volume 91, Mean Corpuscular Hemoglobin 29, Mean Corpuscular Hemoglobin Concent 32, Red Cell Distribution Width 16.1H, Platelet Count 215, Mean Platelet Volume 11.9H, Neutrophils (%) (Auto) 78H, Lymphocytes (%) (Auto) 16, Monocytes (%) (Auto) 5, Eosinophils (%) (Auto) 1, Basophils (%) (Auto) 0, Neutrophils # (Auto) 6.3, Lymphocytes # (Auto) 1.3, Monocytes # (Auto) 0.4, Eosinophils # (Auto) 0.1, Basophils # (Auto) 0.0, Sodium Level 138, Potassium Level 3.8, Chloride Level 97L, Carbon Dioxide Level 29, Anion Gap 12, Blood Urea Nitrogen 21H, Creatinine 0.99, Estimat Glomerular Filtration Rate 55, BUN/ Creatinine Ratio 21, Glucose Level 240H, Calcium Level 8.8, Corrected Calcium 9.6, Total Bilirubin 0.3, Aspartate Amino Transf (AST/SGOT) 58H, Alanine Aminotransferase (ALT/SGPT) 46, Alkaline Phosphatase 53, Total Creatine Kinase 34, Myoglobin 49.3, Troponin I < 0.30, Total Protein 7.0, Albumin 3.0L, Triglycerides Level 107, Cholesterol Level 145, LDL Cholesterol Direct 80, VLDL Cholesterol 21, HDL Cholesterol 48 09/13/18 06:40: Glucometer 264H 09/13/18 09:27: Glucometer 246H A/P: Assessment/Dx: Admission Diagnosis Chest pain Shortness of breath DVT Hypertension, Atrial fibrillation Plan: Assessment/Plan Chest pain, atypical in presentation. EKG shows downsloping ST segment with T wave inversion. Acute coronary syndrome ruled out with serial negative troponin. Patient will be discharged to follow-up with Dr. Pavon in the next one week. Dr. Pavon to decide about nuclear stress testing. Mild CAD on card caths of 2010 and 2013 Relatively remote syncope for which she has undergone a w/u with Dr Pavon and specific cause was not found. Patient underwent cardiac catheterization in 2013 revealing nonobstructive disease. Tilt table test negative, 2-D echocardiogram revealed normal EF. No recent episodes Chronic A Fib with good rate control; stroke prophylaxis with Xarelto Patent [place], 1.1 cm with [id number] shunt per 2-D echocardiogram 2014 Pulmonary hypertension-pulmonary artery pressure 50 mmHg per 2-D echocardiogram January 2017. Possibly due to COPD. continue to monitor Chronic DVT to lower extremity- maintained on Xarelto, having worsening pain at this time, reevaluate ultrasound Hypertension, well controlled. Hyperlipidemia, continue home medications Mild bilateral carotid stenosis, followed with Dr. Pavon. H/o mild to moderate mitral regurgitation and mild tricuspid regurgitation Obesity, BMI currently 30. Reports 130 lbs wgt loss in [id number]. This is being managed by Dr Christine, her pcp Essential tremor, chronic Diabetes mellitus, managed by Dr. Romero. History of renal cysts, has been followed by Dr. Sethi. History of breast cancer, followed and managed by Dr. Fernández. H/o Bipolar disorder H/o Mnires disease H/o anxiety and depression, currently controlled Thank you for your consultation. Please call me if you have any questions. Rebeca Webster MD, FACP, FACC, FSCAI, FHRS, CCDS Interventional Cardiology Cardiac Electrophysiology Vascular Medicine and Endovascular Interventions Clinical Quality Measures AMI/AHF: ASA po Prior to arrival: Yes Ash WEBSTER MD Sep 13, 2018 13:31
[2018-09-13 14:20] VITALS: BP 130/62
== END 2018-09-13 14:20 | disposition home or self-care (01) ==
LOC: EDUNIT# 10:09 → ER 10:11 → 4TH 12:29
PROVIDERS: ADMIT Internal Medicine; ATTEND Internal Medicine
DX: R07.9 Chest pain, unspecified (principal); R10.11 Right upper quadrant pain; I48.2 Chronic atrial fibrillation; I10 Essential (primary) hypertension; Z79.4 Long term (current) use of insulin; Z79.899 Other long term (current) drug therapy; Z87.891 Personal history of nicotine dependence; J44.9 Chronic obstructive pulmonary disease, unspecified; Z66 Do not resuscitate; I25.10 Atherosclerotic heart disease of native coronary artery without angina pectoris; Z86.718 Personal history of other venous thrombosis and embolism; E78.00 Pure hypercholesterolemia, unspecified; F03.90 Unspecified dementia, unspecified severity, without behavioral disturbance, psychotic disturbance, mood disturbance, and anxiety; N19 Unspecified kidney failure; M79.7 Fibromyalgia; F41.9 Anxiety disorder, unspecified; E11.9 Type 2 diabetes mellitus without complications; Z85.3 Personal history of malignant neoplasm of breast; Z92.21 Personal history of antineoplastic chemotherapy; F32.9 Major depressive disorder, single episode, unspecified
CPT/HCPCS: 36415; 71045; 80053; 80061; 82550; 82962; 83735; 83874; 84484; 85007; 85025; 85027; 85610; 85730; 93005; 93041; G0378

== ENCOUNTER 2018-09-16 16:01 | Emergency (ER) | payer MEDICARE, MEDICAID ==
[~2018-09-16] VITALS: Ht 175.3 cm; Wt 108.9 kg
[~2018-09-16 16:01] MED LIST changes: +AMOX1TAB11 PO; +CNC1KV IM; +HYDR-3816 PO; +MENT71OI TP; +VIT1CAPS9 PO
--- OUTSIDE RECORDS SUMMARY | 2018-09-16 16:09 | XMS REPORT | Clinical Summary ---
Author Author [facility] Organization [facility] Address Unknown Phone Unavailable Care Team Providers Care Medical Assistant Supervisor Name Role Phone Darien Salguero MD Unavailable Source Comments Some departments are not documenting in the electronic medical record. If you do not see the information that you expected, contact Release of Information in the Health Information Management department at [phone] for further assistance in locating additional records.[facility] Allergies Active Allergy Reactions Severity [...] results. -- F/U with Dr. Sethi in [place] for further urological issues (already has an [...]
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
[2018-09-16 16:43] LABS: BILIRUBIN,URINE NEGATIVE (NEGATIVE); CLARITY,URINE SLIGHTLY CLOUDY; COLOR,URINE YELLOW; GLUCOSE, URINE (UA) NEGATIVE (NEGATIVE); KETONES,URINE NEGATIVE (NEGATIVE); LEUKOCYTE ESTERASE ,URINE 1+ (NEGATIVE); NITRITE,URINE POSITIVE (NEGATIVE); PH,URINE 6 (5-9); PROTEIN,URINE 2+ (NEGATIVE); UROBILINOGEN,URINE NORMAL (NORMAL)
[2018-09-16 16:56] LABS: BACTERIA,URINE LARGE /HPF
[2018-09-16 16:57] LABS: SQUAMOUS EPITHELIAL CELL,UR >50 /HPF; YEAST,URINE FEW /HPF
[2018-09-16] MEDS ORDERED: cefTRIAXone FOR IV USE 1,000 MG in NS (IVPB) 50 ML IV ONE (17:00)
--- NOTE | 2018-09-16 17:14 | Diagnostic Imaging Report ---
PROCEDURE: CT head without contrast. TECHNIQUE: Multiple contiguous axial images were obtained through the brain without the use of intravenous contrast. INDICATION: Weakness, dizziness, confusion, vision problems. CORRELATION STUDY: 05/23/2018 FINDINGS: The ventricles and sulci are age-appropriate and unchanged. No abnormal areas of decreased attenuation to suggest edema. No intracranial hemorrhage. No midline shift or mass effect. Unchanged calcifications in the left choroid plexus. Scattered areas of asymmetric hyperostosis of the bony calvarium is noted. Calcification of the soft tissues just anterior to both ears appear unchanged. Paranasal sinus and mastoid air cells are clear. IMPRESSION: Generally stable, negative appearing noncontrast CT imaging of the head. No acute intracranial abnormality. Dictated by: Dictated on workstation # [id number]
--- NOTE | 2018-09-16 17:20 | Diagnostic Imaging Report ---
INDICATION: Productive cough. TIME OF EXAM: 04:54 p.m. Correlation is made with prior chest from 09/12/2018. FINDINGS: The heart is enlarged. Central vascularity appears prominent consistent with congestion. No overt failure is seen. No effusion or pneumothorax is identified. IMPRESSION: Central congestion. Dictated by: Dictated on workstation # [id number]
[2018-09-16 17:31] LABS: BASOPHILS # (AUTO) 0.1 10^3/uL (0.0-0.1); BASOPHILS % (AUTO) 1 % (0-10); EOSINOPHILS # (AUTO) 0.1 10^3/uL (0.0-0.3); EOSINOPHILS % (AUTO) 1 % (0-10); HEMATOCRIT 36 % (35-52); HEMOGLOBIN 11.4 G/DL (11.5-16.0); LYMPHOCYTES # (AUTO) 2.7 X 10^3 (1.0-4.0); LYMPHOCYTES % (AUTO) 28 % (12-44); MEAN CORPUSCULAR HEMOGLOBIN 29 PG (25-34); MEAN CORPUSCULAR HGB CONC 32 G/DL (32-36); MEAN CORPUSCULAR VOLUME 93 FL (80-99); MEAN PLATELET VOLUME 11.9 FL (7.4-10.4); MONOCYTES # (AUTO) 0.8 X 10^3 (0.0-1.0); MONOCYTES % (AUTO) 8 % (0-12); NEUTROPHILS % (AUTO) 63 % (42-75); PLATELET COUNT 253 10^3/uL (130-400); RED BLOOD COUNT 3.89 10^6/uL (4.35-5.85); RED CELL DISTRIBUTION WIDTH 16.6 % (10.0-14.5); WHITE BLOOD COUNT 9.6 10^3/uL (4.3-11.0)
[2018-09-16 17:51] LABS: ALANINE AMINOTRANSFERASE 30 U/L (0-55); ALBUMIN 3.2 GM/DL (3.2-4.5); ALKALINE PHOSPHATASE 59 U/L (40-136); BILIRUBIN,TOTAL 0.2 MG/DL (0.1-1.0); BUN/CREATININE RATIO 36; CALCIUM 8.9 MG/DL (8.5-10.1); CARBON DIOXIDE 28 MMOL/L (21-32); CHLORIDE 97 MMOL/L (98-107); CREATININE SERUM 1.35 MG/DL (0.60-1.30); GFR ESTIMATED 38; GLUCOSE 159 MG/DL (70-105); POTASSIUM 4.3 MMOL/L (3.6-5.0); SODIUM 141 MMOL/L (135-145); TOTAL PROTEIN 7.1 GM/DL (6.4-8.2)
[2018-09-16] MEDS ORDERED: NS IV 500 ML 500 ML IV SCH (18:00)
[2018-09-16 18:10] LABS: DIGOXIN 0.88 NG/ML (0.80-2.00)
[2018-09-16 19:11] VITALS: BP 150/61
== END 2018-09-16 19:11 | disposition home or self-care (01) ==
LOC: EDUNIT# 16:01 → ER 16:04
DX: R53.1 Weakness (principal); N39.0 Urinary tract infection, site not specified; I48.91 Unspecified atrial fibrillation; N28.9 Disorder of kidney and ureter, unspecified; J44.9 Chronic obstructive pulmonary disease, unspecified; G47.30 Sleep apnea, unspecified; I25.10 Atherosclerotic heart disease of native coronary artery without angina pectoris; E78.00 Pure hypercholesterolemia, unspecified; I10 Essential (primary) hypertension; F03.90 Unspecified dementia, unspecified severity, without behavioral disturbance, psychotic disturbance, mood disturbance, and anxiety; E11.9 Type 2 diabetes mellitus without complications; F41.9 Anxiety disorder, unspecified; F32.9 Major depressive disorder, single episode, unspecified; Z80.51 Family history of malignant neoplasm of kidney; Z85.3 Personal history of malignant neoplasm of breast; Z98.890 Other specified postprocedural states; Z87.440 Personal history of urinary (tract) infections; Z86.718 Personal history of other venous thrombosis and embolism; Z88.0 Allergy status to penicillin; Z88.5 Allergy status to narcotic agent; Z88.2 Allergy status to sulfonamides; Z79.51 Long term (current) use of inhaled steroids; Z79.82 Long term (current) use of aspirin; Z79.4 Long term (current) use of insulin; Z79.01 Long term (current) use of anticoagulants; Z87.891 Personal history of nicotine dependence; Z90.81 Acquired absence of spleen; Z90.11 Acquired absence of right breast and nipple; Z90.710 Acquired absence of both cervix and uterus; Z86.711 Personal history of pulmonary embolism
CPT/HCPCS: 36415; 70450; 71045; 80053; 80162; 81000; 83880; 84443; 84484; 85025; 87077; 87088; 87186; 93005

== ENCOUNTER → 2018-09-22 | Outpatient (CLI) | payer MEDICARE, MEDICAID ==
[~2018-09-22] MED LIST changes: +CATHETER FLUSH 10 ML SYR IV PRN; +REGADENOSON 0.4 MG/5 ML SYR (LEXISCAN) IV ONE
[2018-09-22 08:59] VITALS: BP 174/88
[2018-09-22 09:05] VITALS: BP 155/77
--- NOTE | 2018-09-22 15:19 | STRESS TEST ---
DATE OF SERVICE: 09/22/2018 LEXISCAN MYOVIEW STRESS TEST REPORT Baseline heart rate is 74, baseline blood pressure 174/88. Baseline EKG is atrial fibrillation with occasional PVCs. In summary, the patient was injected with 10.8 mCi of technetium-99 Myoview and the resting images were obtained. Then, the patient received 0.4 mg of Lexiscan followed by 31.7 mCi of technetium-99 Myoview. Throughout the test, there were no EKG changes. The resting and stress images were reviewed and compared in the short axis, horizontal long axis, and vertical long axis views. Review of the images showed increased gastric and intestinal uptake affecting the quality of the images. Overall, there is mild fixed defect at the inferior wall, probably due to the extracardiac attenuation, no significant ischemia was noted. SSS is 5, SDS 1, TID value 1.06. On the gated images, the left ventricle appeared to be normal size with normal contractility. Calculated ejection fraction 70%. CONCLUSION: 1. The patient tolerated Lexiscan well. 2. Extracardiac attenuation affecting the quality of the images. 3. No significant ischemia or infarction on SPECT images. 4. Normal left ventricular size with normal contractility. Calculated ejection fraction 70%. Job ID: [id number] DocumentID: [id number] Dictated Date: 09/22/2018 12:34:17 Road Crew Member Date: 09/22/2018 15:18:44 Dictated By: SHEELA BANUELOS MD
== END ==
LOC: CARD 07:07
PROVIDERS: ATTEND Physician Assistant
DX: I48.0 Paroxysmal atrial fibrillation (principal); R07.9 Chest pain, unspecified; R06.00 Dyspnea, unspecified; G25.0 Essential tremor
CPT/HCPCS: 78452; 93017

== ENCOUNTER 2018-12-03 05:42 | Emergency (ER) | payer MEDICARE, MEDICAID ==
[~2018-12-03] VITALS: Ht 175.3 cm; Wt 108.9 kg
[~2018-12-03 05:42] MED LIST changes: -CATHETER FLUSH 10 ML SYR IV PRN; -REGADENOSON 0.4 MG/5 ML SYR (LEXISCAN) IV ONE; -SENN-140 PO; +SENN-141 PO
[2018-12-03] MEDS ORDERED: TRANEXAMIC ACID 100 MG/ML 10 ML INJECTION IV ONE ×2 (05:50→07:07)
--- NOTE | 2018-12-03 06:00 | NUR ---
DR. SMITH IN ROOM WITH PT FOR EXAM, ENCOURAGES PT TO BLOW HER NOSE TO EXPELL OLD BLOOD CLOTS AND APPLIES TXA SOAKED GAUZE SPONGES TO PT'S NARES. PT TOLERATES PROCEDURE WELL.
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
[2018-12-03 06:32] LABS: BASOPHILS # (AUTO) 0.1 10^3/uL (0.0-0.1); BASOPHILS % (AUTO) 0 % (0-10); EOSINOPHILS # (AUTO) 0.4 10^3/uL (0.0-0.3); EOSINOPHILS % (AUTO) 3 % (0-10); HEMATOCRIT 37 % (35-52); HEMOGLOBIN 11.4 G/DL (11.5-16.0); LYMPHOCYTES # (AUTO) 1.5 X 10^3 (1.0-4.0); LYMPHOCYTES % (AUTO) 10 % (12-44); MEAN CORPUSCULAR HEMOGLOBIN 31 PG (25-34); MEAN CORPUSCULAR HGB CONC 31 G/DL (32-36); MEAN CORPUSCULAR VOLUME 98 FL (80-99); MEAN PLATELET VOLUME 11.8 FL (7.4-10.4); MONOCYTES # (AUTO) 0.6 X 10^3 (0.0-1.0); MONOCYTES % (AUTO) 4 % (0-12); NEUTROPHILS % (AUTO) 83 % (42-75); PLATELET COUNT 268 10^3/uL (130-400); RED BLOOD COUNT 3.74 10^6/uL (4.35-5.85); RED CELL DISTRIBUTION WIDTH 16.7 % (10.0-14.5); WHITE BLOOD COUNT 15.7 10^3/uL (4.3-11.0)
[2018-12-03 06:45] LABS: ANISOCYTOSIS SLIGHT; BAND NEUTROPHILS 0 %; BASOPHILS % (MANUAL) 0 %; EOSINOPHILS % (MANUAL) 4 %; HYPOCHROMASIA SLIGHT; INR 2.2 (0.8-1.4); LYMPHOCYTES % (MANUAL) 11 %; MONOCYTES % (MANUAL) 2 %; NEUTROPHILS % (MANUAL) 83 %; POLYCHROMASIA SLIGHT; PROTHROMBIN TIME PATIENT 24.4 SEC (12.2-14.7); TARGET CELLS SLIGHT
[2018-12-03 06:48] LABS: CALCIUM 9.4 MG/DL (8.5-10.1); CREATININE SERUM 1.07 MG/DL (0.60-1.30); POTASSIUM 4.2 MMOL/L (3.6-5.0)
--- NOTE | 2018-12-03 07:11 | NUR ---
TXA PULLED FOR DR SMITH TO USE ON NOSE BLEED
[2018-12-03] MEDS ORDERED: LEVO500T2 PO (07:17)
[2018-12-03] MEDS ORDERED: meTOprolol 5 MG/5 ML (LOPRESSOR) VIAL ONE (07:21)
[2018-12-03] MEDS ORDERED: cloNIDine 0.1 MG (CATAPRES) TAB ONE (07:24)
[2018-12-03] MEDS ORDERED: cloNIDine 0.1 MG (CATAPRES) TAB PO ONE (07:30)
[2018-12-03] MEDS ORDERED: meTOprolol 5 MG/5 ML (LOPRESSOR) VIAL IV ONE ×2 (07:30→08:15)
--- NOTE | 2018-12-03 08:02 | NUR ---
DR SMITH TALKED WITH DR SULTANA OFFICE WILL COME SEE PATINT. CON'T TO HAVE BLEEDING.
[2018-12-03 08:03] VITALS: BP 170/91
--- NOTE | 2018-12-03 08:11 | NUR ---
CALLED TO ROOM BLEEDING NOTED AROUND PACKING IN L NARE CLAMP PLACED. Addendum: 12/03/[address] SARAH MONROY,
[2018-12-03] MEDS ORDERED: LORazepam INJ 2 MG/ML (ATIVAN) VIAL IVP ONE (08:15)
--- NOTE | 2018-12-03 08:21 | NUR ---
EV BOYD HERE FROM DR GARCIA OFFICE
[2018-12-03] MEDS ORDERED: PHENYLEPHRINE 0.25% NASAL SPR (NEO-SYNEPHRINE) 15 ML NS ONE (08:27)
[2018-12-03] MEDS ORDERED: RT-ALBUTEROL/IPRATROPIUM 3 ML (DUONEB) VIAL INH ONE (08:30)
--- NOTE | 2018-12-03 08:55 | NUR ---
NOSE PACKING BY VE BOYD
--- NOTE | 2018-12-03 09:00 | Progress Note-Standard ---
Standard Progress Note Progress Notes/Assess & Plan Date Seen by a Provider: Dec 03, 2018 Time Seen by a Provider: 08:30 Progress/Assessment & Plan Patient reported to ER for left nose bleed. ENT services was consulted. Patient is on Xarelto. Has Rhino Rocket in place at this time. Is bleeding anteriorly and posteriorly. Has a history of nosebleeds. Blood pressure is elevated and patient is receiving medication ordered by Dr. Samuels to improve. Nose- Rhino Rocket in place, bleeding continues. Verbal consent was obtained. The packing was removed. Active bleeding was noted midway back on the left side of the septum. 2 sticks of silver nitrate were used to cauterize the area. Hemostasis resulted. The silver nitrate was reversed with [place] Jelly. Two merocel packs were placed parallel and flooded with Afrin. The strings were attached to the side of the nose. Plan- Advised patient to keep packing in place until Saturday. Keep moist with Afrin 2 sprays BID and Saline 2 sprays BID to keep packing moist. Call office for appointment time upon discharge. Take Levaquin as prescribed. Final Diagnosis Epistaxis EV ENRIQUEZ APRN Dec 03, 2018 09:00
[2018-12-03 09:07] VITALS: BP 149/98
--- NOTE | 2018-12-03 09:07 | NUR ---
DISCHARGE PER W/C WITH NO BLEEIDNG NOTED ON DISCHARGE PACKING IN PLACE.
== END 2018-12-03 09:07 | disposition home or self-care (01) ==
LOC: EDUNIT# 05:42 → ER 05:43
DX: R04.0 Epistaxis (principal); I10 Essential (primary) hypertension; J44.1 Chronic obstructive pulmonary disease with (acute) exacerbation; J32.9 Chronic sinusitis, unspecified; F41.9 Anxiety disorder, unspecified; I27.0 Primary pulmonary hypertension; G47.30 Sleep apnea, unspecified; I25.2 Old myocardial infarction; I48.91 Unspecified atrial fibrillation; I25.10 Atherosclerotic heart disease of native coronary artery without angina pectoris; E78.00 Pure hypercholesterolemia, unspecified; F03.90 Unspecified dementia, unspecified severity, without behavioral disturbance, psychotic disturbance, mood disturbance, and anxiety; F31.9 Bipolar disorder, unspecified; E11.9 Type 2 diabetes mellitus without complications; Z86.718 Personal history of other venous thrombosis and embolism; Z85.3 Personal history of malignant neoplasm of breast; Z86.711 Personal history of pulmonary embolism; Z87.891 Personal history of nicotine dependence; Z79.01 Long term (current) use of anticoagulants; Z80.51 Family history of malignant neoplasm of kidney; Z79.02 Long term (current) use of antithrombotics/antiplatelets; Z79.82 Long term (current) use of aspirin; Z90.81 Acquired absence of spleen; Z90.11 Acquired absence of right breast and nipple; Z90.710 Acquired absence of both cervix and uterus; Z88.0 Allergy status to penicillin; Z88.2 Allergy status to sulfonamides; Z79.51 Long term (current) use of inhaled steroids; Z79.4 Long term (current) use of insulin; Z79.84 Long term (current) use of oral hypoglycemic drugs
CPT/HCPCS: 36415; 80048; 80162; 85007; 85027; 85610; 85730; 94640; 96374; 96375; 96376

== ENCOUNTER 2018-12-29 00:31 | Emergency (ER) | payer MEDICARE, MEDICAID ==
[~2018-12-29] VITALS: Ht 175.3 cm; Wt 108.9 kg
[~2018-12-29 00:31] MED LIST changes: -AMLO10TA6 PO; +AMLO10TA7 PO; -AMLO5TAB7 PO; +AMLO5TAB9 PO
--- OUTSIDE RECORDS SUMMARY | 2018-12-29 00:38 | XMS REPORT | Clinical Summary ---
Author Author [facility] Organization [facility] Address Unknown Phone Unavailable Care Team Providers Care Retail Loss Prevention Investigator Name Role Phone Darien Salguero MD Unavailable Source Comments Some departments are not documenting in the electronic medical record. If you do not see the information that you expected, contact Release of Information in the Health Information Management department at [phone] for further assistance in locating additional records.[facility] Allergies Comments Active Allergy Reactions Severity Noted Date Codeine NAUSEA AND 02/05/2013 VOMITING Estradiol HEADACHE, 02/05/2013 NAUSEA AND VOMITING, DIZZINESS Penicillins NAUSEA AND 02/05/2013 VOMITING Sulfur NAUSEA AND 02/05/2013 VOMITING Medications End Date Status Medication Sig Dispensed Refills Start Date Active furosemide (LASIX) 20 mg Take 20 mg by 0 tablet mouth daily. Active potassium chloride(+) Take 10 mEq 0 (MICRO-K) 10 mEq capsule by mouth daily. Active primidone (MYSOLINE) 250 Take 250 mg 0 mg tablet by mouth every 6 hours. Active prochlorperazine Take 10 mg by 0 (COMPAZINE) 10 mg tablet mouth every 6 hours as needed. Active propranolol (INDERAL) 80 Take 80 mg by 0 mg tablet mouth three times daily. Active traMADol (ULTRAM) 50 mg Take 50 mg by 0 tablet mouth every 6 hours as needed. Active esomeprazole DR(+) Take 40 mg by 0 (NEXIUM) 40 mg capsule mouth every morning. Active albuterol (VENTOLIN HFA, Inhale 2 0 PROAIR HFA) 90 Puffs by mcg/actuation inhaler mouth every 6 hours as needed. Active rosiglitazone/metFORMIN Take by 0 (AVANDAMET) 12/999 mg mouth twice tablet daily with meals. Active insulin aspart (NOVOLOG) Inject 5 0 100 unit/mL flexPEN Units into area(s) as directed three times daily with meals. 4 units with breakfast and 5 units with dinner Active promethazine (PHENERGAN) Take 12.5 mg 0 25 mg tablet by mouth every 6 hours as needed. Active LORazepam (ATIVAN) 2 mg Take 2 mg by 0 tablet mouth every 6 hours as needed. Active methylphenidate CD Take 20 mg by 0 (METADATE CD) 20 mg mouth daily capsule before breakfast Active topiramate (TOPAMAX) 200 Take 200 mg 0 mg tablet by mouth twice daily. Active OXcarbazepine (TRILEPTAL) Take 300 mg 0 300 mg tablet by mouth twice daily. Active aspirin EC 81 mg tablet Take 81 mg by 0 mouth daily. Active warfarin (COUMADIN) 10 mg Take 10 mg by 0 tablet mouth daily. Active pravastatin (PRAVACHOL) Take 10 mg by 0 10 mg tablet mouth daily. Active fesoterodine ER(+) Take by 0 (TOVIAZ) 8 mg tablet mouth. Active Problems Problem Noted Date Renal angiomyolipoma [...] results. -- F/U with Dr. Sethi in [place] for further urological issues (already has an [...] Relation Name Status Comments Other Social History Date Tobacco Use Types Packs/Day Years Used Former Smoker Smokeless Tobacco: Never Used Alcohol Use Drinks/Week oz/Week Comments No Sex Assigned at Date Recorded Not on file Industry Job Start Date Occupation Not on file Not on file Not on file Travel End Travel History Travel Start No recent travel history available. Last Filed Vital Signs Time Taken Vital Sign Reading 02/05/2013 1:30 PM CDT Blood Pressure 155/72 02/05/2013 1:30 PM CDT Pulse 89 - Temperature - - Respiratory Rate - - Oxygen Saturation - - Inhaled Oxygen - Concentration 02/05/2013 1:30 PM CDT Weight 107 kg (236 lb) 02/05/2013 1:30 PM CDT Height 172.7 cm (5' 8") 02/05/2013 1:30 PM CDT Body Mass Index 35.88 Plan of Treatment Health Maintenance Due Date Last Done Comments PHYSICAL (COMPREHENSIVE) 1951 EXAM DTAP/TDAP VACCINES (1 - 1962 Tdap) BREAST CANCER SCREENING 1984 COLORECTAL CANCER 1994 SCREENING SHINGLES RECOMBINANT 1994 VACCINE (1 of 2) OSTEOPOROSIS 2009 SCREENING/MONITORING PNEUMONIA (PCV13/PPSV23) 2009 VACCINES (1 of 2 - PCV13) INFLUENZA VACCINE 06/25/2018 Results Not on filefrom Last 3 Months
[2018-12-29] MEDS ORDERED: ASPIRIN 81 MG CHEW (CHILDREN'S ASA) PO ONE (00:45)
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
[2018-12-29 01:01] LABS: BASOPHILS % (AUTO) 0 % (0-10); EOSINOPHILS # (AUTO) 0.4 10^3/uL (0.0-0.3); EOSINOPHILS % (AUTO) 3 % (0-10); HEMATOCRIT 33 % (35-52); HEMOGLOBIN 10.1 G/DL (11.5-16.0); LYMPHOCYTES % (AUTO) 15 % (12-44); MEAN CORPUSCULAR HEMOGLOBIN 30 PG (25-34); MEAN CORPUSCULAR HGB CONC 31 G/DL (32-36); MEAN CORPUSCULAR VOLUME 97 FL (80-99); MEAN PLATELET VOLUME 11.8 FL (7.4-10.4); MONOCYTES # (AUTO) 0.7 X 10^3 (0.0-1.0); MONOCYTES % (AUTO) 5 % (0-12); NEUTROPHILS # (AUTO) 10.6 X 10^3 (1.8-7.8); NEUTROPHILS % (AUTO) 77 % (42-75); PLATELET COUNT 271 10^3/uL (130-400); RED CELL DISTRIBUTION WIDTH 16.2 % (10.0-14.5); WHITE BLOOD COUNT 13.7 10^3/uL (4.3-11.0)
[2018-12-29 01:51] LABS: INR 2.6 (0.8-1.4); PROTHROMBIN TIME PATIENT 28.4 SEC (12.2-14.7)
[2018-12-29 01:59] LABS: ALANINE AMINOTRANSFERASE 10 U/L (0-55); ALBUMIN 3.2 GM/DL (3.2-4.5); ALKALINE PHOSPHATASE 46 U/L (40-136); BILIRUBIN,TOTAL 0.3 MG/DL (0.1-1.0); BUN/CREATININE RATIO 16; CARBON DIOXIDE 29 MMOL/L (21-32); CHLORIDE 100 MMOL/L (98-107); GFR ESTIMATED 44; GLUCOSE 276 MG/DL (70-105); MAGNESIUM 2.1 MG/DL (1.8-2.4); POTASSIUM 3.6 MMOL/L (3.6-5.0); SODIUM 142 MMOL/L (135-145); TOTAL PROTEIN 7.1 GM/DL (6.4-8.2)
[2018-12-29 02:06] LABS: MYOGLOBIN SERUM 38.9 NG/ML (10.0-92.0)
[2018-12-29] MEDS ORDERED: ACYC800T PO (04:17)
[2018-12-29 04:34] VITALS: BP 169/76
--- NOTE | 2018-12-29 07:01 | Diagnostic Imaging Report ---
EXAMINATION: Right ribs, 3 views. INDICATION: Right rib pain. COMPARISON: Multiple prior chest radiographs, most recent performed on 09/16/2018. FINDINGS: No displaced rib fracture is demonstrated. Chronic fracture deformity of the proximal right humeral head is again demonstrated. Old right mid clavicular fracture is also demonstrated. The visualized lungs are clear. Multilevel degenerative changes involve the spine. IMPRESSION: No displaced rib fracture. Dictated by: Dictated on workstation # [id number]
== END 2018-12-29 04:35 | disposition home or self-care (01) ==
LOC: EDUNIT# 00:31 → ER 00:33
DX: R07.81 Pleurodynia (principal); B02.9 Zoster without complications; G47.30 Sleep apnea, unspecified; J44.9 Chronic obstructive pulmonary disease, unspecified; I48.91 Unspecified atrial fibrillation; I25.10 Atherosclerotic heart disease of native coronary artery without angina pectoris; I25.2 Old myocardial infarction; E11.40 Type 2 diabetes mellitus with diabetic neuropathy, unspecified; E78.00 Pure hypercholesterolemia, unspecified; F41.9 Anxiety disorder, unspecified; F31.9 Bipolar disorder, unspecified; I10 Essential (primary) hypertension; F03.90 Unspecified dementia, unspecified severity, without behavioral disturbance, psychotic disturbance, mood disturbance, and anxiety; Z86.718 Personal history of other venous thrombosis and embolism; Z85.3 Personal history of malignant neoplasm of breast; Z80.51 Family history of malignant neoplasm of kidney; Z92.21 Personal history of antineoplastic chemotherapy; Z86.711 Personal history of pulmonary embolism; Z88.0 Allergy status to penicillin; Z88.5 Allergy status to narcotic agent; Z88.2 Allergy status to sulfonamides; Z79.51 Long term (current) use of inhaled steroids; Z79.82 Long term (current) use of aspirin; Z79.4 Long term (current) use of insulin; Z79.01 Long term (current) use of anticoagulants; Z87.891 Personal history of nicotine dependence; Z90.49 Acquired absence of other specified parts of digestive tract; Z90.710 Acquired absence of both cervix and uterus; Z90.89 Acquired absence of other organs; Z87.01 Personal history of pneumonia (recurrent)
CPT/HCPCS: 36415; 71100; 80053; 83735; 83874; 84484; 85025; 85610; 85730; 93005; 93041

== ENCOUNTER 2019-01-11 21:54 | Emergency (ER) | payer MEDICARE, MEDICAID ==
[~2019-01-11] VITALS: Ht 175.3 cm; Wt 108.9 kg
[~2019-01-11 21:54] MED LIST changes: +ACYC800T PO
--- OUTSIDE RECORDS SUMMARY | 2019-01-11 21:59 | XMS REPORT | Clinical Summary ---
Author Author [facility] Organization [facility] Address Unknown Phone Unavailable Care Team Providers Care Aquacultural Worker Supervisor Name Role Phone Darien Salguero MD Unavailable Source Comments Some departments are not documenting in the electronic medical record. If you do not see the information that you expected, contact Release of Information in the Health Information Management department at [phone] for further assistance in locating additional records.[facility] Allergies Comments Active Allergy Reactions Severity Noted [...] results. -- F/U with Dr. Sethi in [place] for further urological issues (already has an [...]
[2019-01-11] MEDS ORDERED: FUROSEMIDE 40 MG/4 ML INJ (LASIX) IV STA (22:12)
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
[2019-01-11 22:30] LABS: BASOPHILS % (AUTO) 0 % (0-10); EOSINOPHILS # (AUTO) 0.4 10^3/uL (0.0-0.3); EOSINOPHILS % (AUTO) 3 % (0-10); HEMATOCRIT 33 % (35-52); HEMOGLOBIN 10.2 G/DL (11.5-16.0); LYMPHOCYTES # (AUTO) 1.8 X 10^3 (1.0-4.0); LYMPHOCYTES % (AUTO) 14 % (12-44); MEAN CORPUSCULAR HEMOGLOBIN 30 PG (25-34); MEAN CORPUSCULAR HGB CONC 31 G/DL (32-36); MEAN CORPUSCULAR VOLUME 97 FL (80-99); MEAN PLATELET VOLUME 11.8 FL (7.4-10.4); MONOCYTES # (AUTO) 0.6 X 10^3 (0.0-1.0); MONOCYTES % (AUTO) 4 % (0-12); NEUTROPHILS # (AUTO) 10.6 X 10^3 (1.8-7.8); NEUTROPHILS % (AUTO) 79 % (42-75); PLATELET COUNT 300 10^3/uL (130-400); RED CELL DISTRIBUTION WIDTH 16.9 % (10.0-14.5); WHITE BLOOD COUNT 13.3 10^3/uL (4.3-11.0)
[2019-01-11 22:34] LABS: INR 2.4 (0.8-1.4); PROTHROMBIN TIME PATIENT 26.7 SEC (12.2-14.7)
[2019-01-11 22:45] LABS: ALANINE AMINOTRANSFERASE 11 U/L (0-55); ALBUMIN 3.4 GM/DL (3.2-4.5); ALKALINE PHOSPHATASE 47 U/L (40-136); BILIRUBIN,TOTAL 0.4 MG/DL (0.1-1.0); BUN/CREATININE RATIO 13; CALCIUM 9.5 MG/DL (8.5-10.1); CARBON DIOXIDE 29 MMOL/L (21-32); CHLORIDE 98 MMOL/L (98-107); CREATINE KINASE 38 U/L (29-168); CREATININE SERUM 1.25 MG/DL (0.60-1.30); GFR ESTIMATED 42; GLUCOSE 359 MG/DL (70-105); MAGNESIUM 2.3 MG/DL (1.8-2.4); POTASSIUM 3.7 MMOL/L (3.6-5.0); SODIUM 139 MMOL/L (135-145); TOTAL PROTEIN 7.9 GM/DL (6.4-8.2)
[2019-01-11 22:54] LABS: CREATINE KINASE MB 0.8 NG/ML (<6.6)
[2019-01-11 22:56] LABS: BILIRUBIN,URINE NEGATIVE (NEGATIVE); CLARITY,URINE CLEAR; COLOR,URINE YELLOW; GLUCOSE, URINE (UA) 3+ (NEGATIVE); KETONES,URINE NEGATIVE (NEGATIVE); LEUKOCYTE ESTERASE ,URINE NEGATIVE (NEGATIVE); NITRITE,URINE NEGATIVE (NEGATIVE); PH,URINE 7 (5-9); PROTEIN,URINE 2+ (NEGATIVE); UROBILINOGEN,URINE NORMAL (NORMAL)
[2019-01-11 23:10] LABS: RBC,URINE RARE /HPF; WBC,URINE 0-2 /HPF
--- NOTE | 2019-01-11 23:10 | NUR ---
Report given to Mary Worrell RN
[2019-01-11 23:11] LABS: AMORPHOUS SEDIMENT,UR FEW AMOR URATES /LPF; BACTERIA,URINE FEW /HPF; SQUAMOUS EPITHELIAL CELL,UR RARE /HPF
[2019-01-11] MEDS ORDERED: cefTRIAXone FOR IV USE 1,000 MG in WATER (STERILE) FOR INJECTION 10 ML IV ONE (23:15)
[2019-01-11] MEDS ORDERED: cefTRIAXone 1,000 MG IV (ROCEPHIN) VIAL ONE (23:16)
[2019-01-11] MEDS ORDERED: NS (IVPB) 50 ML ONE (23:17)
[2019-01-12] MEDS ORDERED: NS (IVPB) 100 ML ONE (00:03)
[2019-01-12] MEDS ORDERED: NS (IVPB) 100 ML IV ONE (00:15)
[2019-01-12] MEDS ORDERED: inSUlin (REGULAR) HUMAN 1 UNIT/0.01 ML (CHARGE PER UNIT) IV ONE (00:15)
--- NOTE | 2019-01-12 00:40 | NUR ---
REPORT GIVEN TO KEVIN BETTENCOURT FROM [facility].
--- NOTE | 2019-01-12 00:59 | NUR ---
[facility] SQL REPORT ANALYST CONTACTED TO REQUEST PT TRANSFER TO [facility].
[2019-01-12] MEDS ORDERED: ORPHENADRINE 60 MG/2 ML (NORFLEX) AMP ONE (01:12)
[2019-01-12 01:54] VITALS: BP 142/75
--- NOTE | 2019-01-12 05:33 | Diagnostic Imaging Report ---
INDICATION: Shortness of air. COMPARISON: 09/16/2018 FINDINGS: Single frontal radiographic view of the chest was obtained and demonstrates moderate cardiomegaly and mild pulmonary vascular congestion. There is also mild diffuse prominence of the pulmonary interstitium. Jordan B-lines are noted. No large effusion or pneumothorax on either side. Bony structures show no gross acute abnormalities. IMPRESSION: 1. Cardiomegaly with sequela of CHF including interstitial pulmonary edema. Dictated by: Dictated on workstation # [id number]
== END 2019-01-12 01:55 | disposition short-term general hospital (02) ==
LOC: EDUNIT# 21:54 → ER 21:55
DX: I11.0 Hypertensive heart disease with heart failure (principal); I50.9 Heart failure, unspecified; J18.9 Pneumonia, unspecified organism; I48.2 Chronic atrial fibrillation; I27.0 Primary pulmonary hypertension; J44.9 Chronic obstructive pulmonary disease, unspecified; G47.30 Sleep apnea, unspecified; I25.10 Atherosclerotic heart disease of native coronary artery without angina pectoris; I25.2 Old myocardial infarction; E78.00 Pure hypercholesterolemia, unspecified; F03.90 Unspecified dementia, unspecified severity, without behavioral disturbance, psychotic disturbance, mood disturbance, and anxiety; E11.40 Type 2 diabetes mellitus with diabetic neuropathy, unspecified; F41.9 Anxiety disorder, unspecified; F31.9 Bipolar disorder, unspecified; Z99.81 Dependence on supplemental oxygen; Z80.51 Family history of malignant neoplasm of kidney; Z92.21 Personal history of antineoplastic chemotherapy; Z85.3 Personal history of malignant neoplasm of breast; Z87.19 Personal history of other diseases of the digestive system; Z86.718 Personal history of other venous thrombosis and embolism; Z88.0 Allergy status to penicillin; Z88.5 Allergy status to narcotic agent; Z88.2 Allergy status to sulfonamides; Z79.51 Long term (current) use of inhaled steroids; Z79.52 Long term (current) use of systemic steroids; Z87.01 Personal history of pneumonia (recurrent); Z79.82 Long term (current) use of aspirin; Z87.891 Personal history of nicotine dependence; Z90.49 Acquired absence of other specified parts of digestive tract; Z90.710 Acquired absence of both cervix and uterus
CPT/HCPCS: 36415; 51702; 71045; 80053; 80162; 81000; 82550; 82553; 82962; 83605; 83735; 83880; 84484; 85025; 85610; 85730; 87040; 87804; 93005; 93041; 96365; 96367; 96375

== ENCOUNTER 2019-02-16 12:00 | Emergency (ER) | payer MEDICARE, MEDICAID ==
[~2019-02-16] VITALS: Ht 175.3 cm; Wt 108.9 kg
[~2019-02-16 12:00] MED LIST changes: +OCUVITE SOFTGE1 EACH PO; -VIT1CAPS9 PO
--- OUTSIDE RECORDS SUMMARY | 2019-02-16 12:06 | XMS REPORT | Clinical Summary ---
Author Author [facility] Organization [facility] Address Unknown Phone Unavailable Care Team Providers Care Marshmallow Machine Operator Name Role Phone Darien Salguero MD Unavailable Source Comments Some departments are not documenting in the electronic medical record. If you do not see the information that you expected, contact Release of Information in the Health Information Management department at [phone] for further assistance in locating additional records.[facility] Allergies Comments Active Allergy Reactions Severity Noted [...] results. -- F/U with Dr. Sethi in [place] for further urological issues (already has an [...]
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
[2019-02-16] MEDS ORDERED: PANTOPRAZOLE 40 MG (PROTONIX) TAB PO ONE (12:30)
[2019-02-16] MEDS ORDERED: LIDOCAINE 2% VISCOUS 15 ML UDC PO ONE (12:30)
[2019-02-16] MEDS ORDERED: ANTACID SUSP 30 ML UDC (MYLANTA) PO ONE (12:30)
[2019-02-16 12:42] LABS: BASOPHILS % (AUTO) 0 % (0-10); EOSINOPHILS # (AUTO) 0.4 10^3/uL (0.0-0.3); EOSINOPHILS % (AUTO) 3 % (0-10); HEMATOCRIT 40 % (35-52); HEMOGLOBIN 12.5 G/DL (11.5-16.0); LYMPHOCYTES # (AUTO) 2.3 X 10^3 (1.0-4.0); LYMPHOCYTES % (AUTO) 17 % (12-44); MEAN CORPUSCULAR HEMOGLOBIN 30 PG (25-34); MEAN CORPUSCULAR HGB CONC 32 G/DL (32-36); MEAN CORPUSCULAR VOLUME 93 FL (80-99); MEAN PLATELET VOLUME 11.6 FL (7.4-10.4); MONOCYTES # (AUTO) 0.7 X 10^3 (0.0-1.0); MONOCYTES % (AUTO) 5 % (0-12); NEUTROPHILS # (AUTO) 10.2 X 10^3 (1.8-7.8); NEUTROPHILS % (AUTO) 75 % (42-75); PLATELET COUNT 313 10^3/uL (130-400); RED CELL DISTRIBUTION WIDTH 16.8 % (10.0-14.5); WHITE BLOOD COUNT 13.6 10^3/uL (4.3-11.0)
[2019-02-16 13:00] LABS: ALANINE AMINOTRANSFERASE 9 U/L (0-55); ALBUMIN 3.6 GM/DL (3.2-4.5); ALKALINE PHOSPHATASE 56 U/L (40-136); BILIRUBIN,TOTAL 0.2 MG/DL (0.1-1.0); BUN/CREATININE RATIO 14; CARBON DIOXIDE 26 MMOL/L (21-32); CHLORIDE 104 MMOL/L (98-107); CREATININE SERUM 0.86 MG/DL (0.60-1.30); GFR ESTIMATED > 60; GLUCOSE 90 MG/DL (70-105); LIPASE 23 U/L (8-78); POTASSIUM 3.8 MMOL/L (3.6-5.0); SODIUM 144 MMOL/L (135-145); TOTAL PROTEIN 8.2 GM/DL (6.4-8.2)
[2019-02-16] MEDS ORDERED: PANT40TA2 PO (13:44)
[2019-02-16 13:56] VITALS: BP 154/77
== END 2019-02-16 13:56 | disposition home or self-care (01) ==
LOC: EDUNIT# 12:00 → ER 12:01
DX: R13.10 Dysphagia, unspecified (principal); I48.91 Unspecified atrial fibrillation; K58.9 Irritable bowel syndrome, unspecified; G47.30 Sleep apnea, unspecified; J44.9 Chronic obstructive pulmonary disease, unspecified; I25.10 Atherosclerotic heart disease of native coronary artery without angina pectoris; I25.2 Old myocardial infarction; E78.00 Pure hypercholesterolemia, unspecified; I10 Essential (primary) hypertension; F03.90 Unspecified dementia, unspecified severity, without behavioral disturbance, psychotic disturbance, mood disturbance, and anxiety; K21.9 Gastro-esophageal reflux disease without esophagitis; E11.9 Type 2 diabetes mellitus without complications; F41.9 Anxiety disorder, unspecified; F31.9 Bipolar disorder, unspecified; Z80.51 Family history of malignant neoplasm of kidney; Z85.3 Personal history of malignant neoplasm of breast; Z87.440 Personal history of urinary (tract) infections; Z87.448 Personal history of other diseases of urinary system; Z86.718 Personal history of other venous thrombosis and embolism; Z87.01 Personal history of pneumonia (recurrent); Z86.711 Personal history of pulmonary embolism; Z87.891 Personal history of nicotine dependence; Z90.710 Acquired absence of both cervix and uterus; Z79.01 Long term (current) use of anticoagulants; Z88.0 Allergy status to penicillin; Z79.82 Long term (current) use of aspirin; Z79.4 Long term (current) use of insulin; Z88.5 Allergy status to narcotic agent; Z88.2 Allergy status to sulfonamides; Z79.51 Long term (current) use of inhaled steroids
CPT/HCPCS: 36415; 80053; 83690; 85025; 99283

== ENCOUNTER 2019-02-19 05:39 | Outpatient (CLI) | payer MEDICARE, MEDICAID ==
[~2019-02-19] VITALS: Ht 175.3 cm; Wt 113.4 kg
[~2019-02-19 05:39] MED LIST changes: +PANT40TA2 PO
== END 2019-02-19 10:11 | disposition home or self-care (01) ==
LOC: PREOP 05:39
PROVIDERS: ATTEND Surgery
DX: Z01.818 Encounter for other preprocedural examination (principal)

== ENCOUNTER 2019-02-20 11:09 | Day surgery (SDC) | payer MEDICARE, MEDICAID ==
[~2019-02-20] VITALS: Ht 175.3 cm; Wt 113.4 kg
[~2019-02-20 11:09] MED LIST changes: -RIVA20TA PO
--- OUTSIDE RECORDS SUMMARY | 2019-02-20 11:14 | XMS REPORT | Clinical Summary ---
Author Author [facility] Organization [facility] Address Unknown Phone Unavailable Care Team Providers Care Monument Setter Helper Name Role Phone Darien Salguero MD Unavailable Source Comments Some departments are not documenting in the electronic medical record. If you do not see the information that you expected, contact Release of Information in the Health Information Management department at [phone] for further assistance in locating additional records.[facility] Allergies Comments Active Allergy Reactions Severity Noted [...] results. -- F/U with Dr. Sethi in [place] for further urological issues (already has an [...]
[2019-02-20] MEDS ORDERED: NS IV 500 ML 500 ML IV PRN (11:31)
[2019-02-20] MEDS ORDERED: NS IV 500 ML 500 ML ONE (11:35)
[2019-02-20] MEDS ORDERED: MIDAZOLAM 2 MG/2 ML (VERSED) VIAL IVP ONE (11:45)
[2019-02-20] MEDS ORDERED: HURRICAINE EXT TUBE (BENZOCAINE) XX PRN (11:45)
[2019-02-20] MEDS ORDERED: fentaNYL INJECTION 100 MCG/2 ML AMP IVP ONE (11:45)
[2019-02-20] MEDS ORDERED: LIDOCAINE JELLY 2% 6 ML SYRINGE MM PRN (11:45)
[2019-02-20 11:48] VITALS: BP 150/87
--- NOTE | 2019-02-20 11:59 | Conscious Sedation/ASA ---
Conscious Sedation Pre-Proced Time 11:30 ASA Score 3 For ASA 3 and 4: Consider anesthesia and medical clearance. Also, for patients with a history of failed moderate sedation consider anesthesia. Airway Lungs Heart ASA score ASA 1: a normal healthy patient ASA 2: a patient with a mild systemic disease (mid diabetes, controlled hypertension, obesity ASA 3: a patient with a severe systemic disease that limits activity (angina , COPD, prior Myocardial infarction) ASA 4: a patient with an incapacitating disease that is a constant threat to life (CHF, renal failure) ASA 5: a moribund patient not expected to survive 24 hrs. (ruptured aneurysm) ASA 6: a declared brain- patient whose organs are being harvested. For emergent operations, add the letter E after the classification Mallampati Classification Grade 3 Sedation Plan Analgesia, Amnesia, Plan communicated to team members, Discussed options with patient/fam, Discussed risks with patient/fam The patient is an appropriate candidate to undergo the planned procedure, sedation, and anesthesia. The patient immediately re-assessed prior to indication. ARI GASTELUM MD Feb 20, 2019 11:58
--- NOTE | 2019-02-20 11:59 | Progress Note-Pre Operative ---
Pre-Operative Progress Note H&P Reviewed The H&P was reviewed, patient examined and no changes noted. Date Seen by Provider: Feb 20, 2019 Time Seen by Provider: 11: Date H&P Reviewed: Feb 20, 2019 Time H&P Reviewed: :30 Pre-Operative Diagnosis: GERD, dysphagia ARI GASTELUM MD Feb 20, 2019 11:59
--- NOTE | 2019-02-20 12:04 | Discharge Inst-Surgical ---
D/C Lap Instructions-NIRAV Follow Up Appt in 6 weeks Activity as tolerated High Fiber Diet 25g or more per day Avoid Alcohol, Caffeine, Spicy [place] and Acid foods. Drink 64 fluid oz or more of fluids per day. Symptoms to Report: Fever over 101 degree F, Nausea/Vomiting If any problems/questions: Contact your physician or go to Emergency Room ARI GASTELUM MD Feb 20, 2019 12:04
[2019-02-20] MEDS ORDERED: MIDAZOLAM 2 MG/2 ML (VERSED) VIAL ONE ×4 (12:54→13:22)
[2019-02-20] MEDS ORDERED: fentaNYL INJECTION 100 MCG/2 ML AMP ONE (12:54)
[2019-02-20] MEDS ORDERED: LIDOCAINE JELLY 2% 6 ML SYRINGE ONE (12:54)
[2019-02-20] MEDS ORDERED: HURRICAINE EXT TUBE (BENZOCAINE) ONE (12:55)
[2019-02-20 14:05] VITALS: BP 176/75
[2019-02-20 14:27] VITALS: BP 146/79
[2019-02-20 14:40] VITALS: BP 146/79
--- NOTE | 2019-02-20 14:42 | Progress Note-Post Operative ---
Post-Operative Progess Note Surgeon (s)/Electrical Parts Reconditioner (s) Surgeon ARI GASTELUM MD Electrical Parts Reconditioner: none Pre-Operative Diagnosis GERD, dysphagia Post-Operative Diagnosis reflux esophagitis (stage 2), small HH(2cm), moderate gastritis. Procedure & Operative Findings Date of Procedure 02/20/19 Procedure Performed/Findings EGD with bx and balloon dilation. Anesthesia Type CS Estimated Blood Loss Estimated blood loss (mL): minimal Specimens/Packing Specimens Removed ge ARI Regalado MD Feb 20, 2019 14:42
--- NOTE | 2019-02-20 21:53 | OPERATIVE REPORT ---
DATE OF SERVICE: 02/20/2019 ATTENDING PRIMARY CARE PHYSICIAN: Dr. Christine. PREOPERATIVE DIAGNOSES: Gastroesophageal reflux disease, dysphagia. POSTOPERATIVE DIAGNOSES: Reflux esophagitis stage II, mild distal esophageal stricture. Small to moderate size hiatal hernia approximately 2 cm in size. PROCEDURE: EGD with biopsy and balloon dilatation. SURGEON: Ari Gastelum MD ANESTHESIA: Conscious sedation. ESTIMATED BLOOD LOSS: Minimal. FINDINGS: Reflux esophagitis stage II, mild distal esophageal stricture. Small to moderate size hiatal hernia approximately 2 cm in size.. DISPOSITION: The patient tolerated the procedure well. INDICATIONS: The patient is a 73-year-old female known to us. She has had a longstanding history of gastroesophageal reflux disease for greater than 20 years. She has been on different acid reducers in the past and is currently on Pepcid. In 2013, we had an EGD, which did show a reflux esophagitis stage II as well as a small hiatal hernia approximately 2 cm in size and biopsies were negative for H. pylori as well for Fleming's esophagus. Since that time, she has had significant medical history including a fall, breaking her hip and then complications stemming from this, which entailed repair of the hip as well as a reoperation two weeks later and the development of MRSA and multiple debridements. Since that time, she has been in and out of rehabilitation centers as well as nursing homes for many months. She did have an EGD performed in 2018, which she brought the pictures and it appears that she does have a significant reflux esophagitis as well as a Schatzki's ring and distal esophageal stricture. DESCRIPTION OF PROCEDURE: The patient was brought to the endoscopy suite, laid in the left lateral decubitus position. The endoscope was then placed in the mouth visualizing the pharynx and hypopharyngeal region. Vocal cords, epiglottis and vallecula identified and appeared to be normal. The endoscope was then gently intubated at the esophageal opening and esophagus was insufflated. Endoscope was then advanced through the first, second and third portions of the esophagus. At the level of the GE junction, a reflux esophagitis stage II identified. There was also a mild distal esophageal stricture and Schatzki's ring identified. A biopsy was taken of this region with forceps with visualization of good hemostasis. The endoscope was then easily advanced in the stomach and the endoscope retroflexed, visualizing a hiatal hernia, which was small to moderate in size, approximately 2 to 2.5 cm in size and the Schatzki's ring was also identified through this angle. A moderate severity gastritis was noted. There were no formal ulcerations, polyps or any neoplasms. A biopsy was taken of the antrum with forceps to rule out H. pylori with visualization of good hemostasis. The endoscope was then advanced to the pylorus and first and second portion of the duodenum, which appeared normal with no distal obstructions. We then proceeded with dilatation of esophageal stricture. The balloon was placed in the stomach and then pulled back to the area of the stricture and first dilated with 2 atmospheres of pressure with no resistance. We then proceeded to 4 atmospheres of pressure with mild resistance. We then proceeded to 6 atmospheres of pressure or 20 mm in circumferential diameter with mild to moderate resistance and left this in place for approximately 60 seconds. The balloon was then desufflated and removed with visualization of good hemostasis as well as no mucosal tears. The endoscope was then slowly withdrawn while taking a second look and suctioning of residual air with no additional findings. The patient tolerated the procedure well. We will recommend the necessary lifestyle and diet accommodation including small and more frequent meals, avoidance of eating at night as well as head elevation while lying supine. Unfortunately, she is on a number of different medications for her other medical problems including nonsteroidal antiinflammatory. She does have a significant gastritis; however, which her current Pepcid is not controlling and we will start her back on Protonix 40 mg daily. If she does have recurrent episodes of dysphagia, we will have her return for a graded dilatation of the esophageal stricture. Job ID: [id number] DocumentID: [id number] Dictated Date: 02/20/2019 13:43:30 Operations Assistant Date: 02/20/2019 21:52:35 Dictated By: ARI GASTELUM MD
== END 2019-02-20 14:40 | disposition home or self-care (01) ==
LOC: ENDO 11:09
PROVIDERS: ATTEND Surgery
DX: K21.0 Gastro-esophageal reflux disease with esophagitis (principal); K22.2 Esophageal obstruction; K44.9 Diaphragmatic hernia without obstruction or gangrene; K29.50 Unspecified chronic gastritis without bleeding; I10 Essential (primary) hypertension; J44.9 Chronic obstructive pulmonary disease, unspecified; E78.00 Pure hypercholesterolemia, unspecified; F41.9 Anxiety disorder, unspecified; Z86.711 Personal history of pulmonary embolism; Z86.718 Personal history of other venous thrombosis and embolism; Z85.3 Personal history of malignant neoplasm of breast; Z79.899 Other long term (current) drug therapy

== ENCOUNTER → 2019-02-24 | Outpatient (CLI) | payer MEDICARE, MEDICAID ==
[~2019-02-24] MED LIST changes: +RIVA20TA PO
--- NOTE | 2019-02-25 13:15 | Diagnostic Imaging Report ---
INDICATION: Routine screening. COMPARISON: 08/21/2018, 02/10/2018, and 08/09/2017. TECHNIQUE: Unilateral left 2D and 3D screening mammography was performed with CAD. FINDINGS: The left breast is heterogeneously dense, limiting the sensitivity of mammography. Benign calcifications in the left breast are noted. The overall parenchymal pattern is stable. A tiny circumscribed density in the superior left breast appears stable. No new mass is identified. No suspicious microcalcifications are seen. IMPRESSION: No mammographic features suspicious for malignancy are identified. ACR BI-RADS Category 2: Benign findings. Result letter will be mailed to the patient. Note: At least 10% of breast cancer is not imaged by mammography. Dictated by: Dictated on workstation # [id number]
== END ==
LOC: RAD 12:56
PROVIDERS: ATTEND Nurse Practitioner Adult Health
DX: Z12.31 Encounter for screening mammogram for malignant neoplasm of breast (principal); Z85.3 Personal history of malignant neoplasm of breast

== ENCOUNTER → 2019-05-01 | Outpatient (CLI) | payer MEDICARE, MEDICAID ==
[~2019-05-01] MED LIST changes: -RIVA20TA PO
--- NOTE | 2019-05-01 13:15 | Diagnostic Imaging Report ---
PROCEDURE: CT abdomen and pelvis without contrast. TECHNIQUE: Multiple contiguous axial images were obtained through the abdomen and pelvis without the use of intravenous contrast. Auto Exposure Controls were utilized during the CT exam to meet ALARA standards for radiation dose reduction. INDICATION: Left renal cyst, follow-up. Correlation is made with prior CT from 04/23/2018. FINDINGS: The lung bases are clear. The liver is unremarkable. No mass is seen. Gallbladder appears to be surgically absent. There is no biliary ductal dilatation. The pancreas is unremarkable. Spleen appears to be very small. No adrenal mass is seen. Previously noted hyperdense lesion in the upper pole of the right kidney measures approximately 13 mm compared with 10-11 mm on prior exam. Continued close follow-up is recommended. The large simple-appearing cystic lesion involving the left kidney has decreased in size, measuring 10.2 cm compared with 11.5 cm on prior. A lesion in the lower pole of the left kidney also appears smaller measuring 1.8 cm compared with 2.1 cm on prior. Aorta is nonaneurysmal. No central retroperitoneal or mesenteric lymphadenopathy is seen. The small and large bowel loops are normal caliber. There is no ascites. The bladder is decompressed. There are postsurgical changes involving the right hip which also demonstrates marked degenerative changes. No acute bony abnormality is seen. IMPRESSION: 1. Decrease in size of simple left renal cysts since prior exam from March 2018. A slightly hyperdense lesion in the upper pole of right kidney is measuring minimally larger and continued close follow-up is recommended to confirm stability. Dictated by: Dictated on workstation # [id number]
== END ==
LOC: RAD 12:27
PROVIDERS: ATTEND Urology
DX: N28.1 Cyst of kidney, acquired (principal); Z98.890 Other specified postprocedural states
CPT/HCPCS: 74176

== ENCOUNTER 2019-05-05 07:54 | Outpatient (RCR) | payer MEDICARE, MEDICAID ==
[~2019-05-05 07:54] MED LIST changes: -BISA10SU6 RC; +BISA10SU8 RC; +RANI-613 PO; -RANI150T46 PO
[2019-05-05 11:12] LABS: BASOPHILS # (AUTO) 0.1 10^3/uL (0.0-0.1); BASOPHILS % (AUTO) 1 % (0-10); EOSINOPHILS # (AUTO) 0.3 10^3/uL (0.0-0.3); EOSINOPHILS % (AUTO) 2 % (0-10); HEMATOCRIT 41 % (35-52); HEMOGLOBIN 13.1 G/DL (11.5-16.0); LYMPHOCYTES # (AUTO) 2.4 X 10^3 (1.0-4.0); LYMPHOCYTES % (AUTO) 20 % (12-44); MEAN CORPUSCULAR HEMOGLOBIN 29 PG (25-34); MEAN CORPUSCULAR HGB CONC 32 G/DL (32-36); MEAN CORPUSCULAR VOLUME 90 FL (80-99); MONOCYTES # (AUTO) 0.6 X 10^3 (0.0-1.0); MONOCYTES % (AUTO) 5 % (0-12); NEUTROPHILS # (AUTO) 8.7 X 10^3 (1.8-7.8); NEUTROPHILS % (AUTO) 72 % (42-75); PLATELET COUNT 270 10^3/uL (130-400); RED CELL DISTRIBUTION WIDTH 15.9 % (10.0-14.5); WHITE BLOOD COUNT 12.1 10^3/uL (4.3-11.0)
[2019-05-05 11:30] LABS: ALBUMIN 3.5 GM/DL (3.2-4.5); BILIRUBIN,TOTAL 0.3 MG/DL (0.1-1.0); CALCIUM 9.5 MG/DL (8.5-10.1); CREATININE SERUM 1.06 MG/DL (0.60-1.30); POTASSIUM 4.5 MMOL/L (3.6-5.0); TOTAL PROTEIN 7.9 GM/DL (6.4-8.2)
== END 2019-08-03 | disposition home or self-care (01) ==
LOC: ONC 07:54
PROVIDERS: ATTEND Internal Medicine Hematology & Oncology
DX: Z08 Encounter for follow-up examination after completed treatment for malignant neoplasm (principal); Z85.3 Personal history of malignant neoplasm of breast; D64.9 Anemia, unspecified; I10 Essential (primary) hypertension; E11.9 Type 2 diabetes mellitus without complications; E78.5 Hyperlipidemia, unspecified; G47.33 Obstructive sleep apnea (adult) (pediatric); I27.20 Pulmonary hypertension, unspecified; E66.9 Obesity, unspecified; Z68.35 Body mass index [BMI] 35.0-35.9, adult; Z86.718 Personal history of other venous thrombosis and embolism; Z79.01 Long term (current) use of anticoagulants; Z79.4 Long term (current) use of insulin; Z79.899 Other long term (current) drug therapy; Z92.21 Personal history of antineoplastic chemotherapy; Z90.11 Acquired absence of right breast and nipple
CPT/HCPCS: 36415; 80053; 85025; 99213

== ENCOUNTER 2019-09-08 22:37 | Observation (INO) | payer MEDICARE, MEDICAID ==
[~2019-09-08] VITALS: Ht 175.3 cm; Wt 120.2 kg
[2019-09-08] MEDS ORDERED: morphine INJ 10 MG/ML 1ML (SYR OR VIAL) IVP ONE (23:30)
[2019-09-08 23:33] LABS: BASOPHILS % (AUTO) 0 % (0-10); EOSINOPHILS # (AUTO) 0.6 10^3/uL (0.0-0.3); EOSINOPHILS % (AUTO) 4 % (0-10); HEMATOCRIT 38 % (35-52); LYMPHOCYTES # (AUTO) 2.9 X 10^3 (1.0-4.0); LYMPHOCYTES % (AUTO) 22 % (12-44); MEAN CORPUSCULAR HEMOGLOBIN 29 PG (25-34); MEAN CORPUSCULAR HGB CONC 32 G/DL (32-36); MEAN CORPUSCULAR VOLUME 93 FL (80-99); MEAN PLATELET VOLUME 11.8 FL (7.4-10.4); MONOCYTES # (AUTO) 0.8 X 10^3 (0.0-1.0); MONOCYTES % (AUTO) 6 % (0-12); NEUTROPHILS # (AUTO) 8.6 X 10^3 (1.8-7.8); NEUTROPHILS % (AUTO) 67 % (42-75); PLATELET COUNT 303 10^3/uL (130-400); RED CELL DISTRIBUTION WIDTH 14.1 % (10.0-14.5)
[2019-09-08 23:47] LABS: ALANINE AMINOTRANSFERASE 25 U/L (0-55); ALKALINE PHOSPHATASE 72 U/L (40-136); BILIRUBIN,TOTAL 0.2 MG/DL (0.1-1.0); BUN/CREATININE RATIO 20; CALCIUM 9.2 MG/DL (8.5-10.1); CARBON DIOXIDE 30 MMOL/L (21-32); CHLORIDE 101 MMOL/L (98-107); CREATININE SERUM 0.85 MG/DL (0.60-1.30); GFR ESTIMATED > 60; GLUCOSE 175 MG/DL (70-105); POTASSIUM 3.6 MMOL/L (3.6-5.0); SODIUM 142 MMOL/L (135-145); TOTAL PROTEIN 7.1 GM/DL (6.4-8.2)
[2019-09-08 23:48] LABS: INR 1.1 (0.8-1.4); PROTHROMBIN TIME PATIENT 14.5 SEC (12.2-14.7)
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
[2019-09-09] VITALS (26 sets, daily range): BP systolic 144–210; BP diastolic 72–144
[2019-09-09] MEDS ORDERED: RIVAROXABAN 20 MG TABLET (XARELTO) PO ONE (00:45)
[2019-09-09] MEDS ORDERED: NS IV 1000 ML 1,000 ML ONE (02:26)
[2019-09-09] MEDS ORDERED: RT-ALBUTEROL SULF 2.5 MG/3 ML PRE-MIX VIAL INH PRN (02:30)
[2019-09-09] MEDS ORDERED: NS IV 1000 ML 1,000 ML IV SCH (03:30)
[2019-09-09] MEDS ORDERED: NITROGLYCERIN 0.4 MG SL TABS BTL 25'S SL PRN (03:30)
[2019-09-09] MEDS ORDERED: morphine INJ 4 MG/ML 1 ML (VIAL/SYRINGE) IV PRN (03:30)
[2019-09-09 03:38] LABS: BASOPHILS % (AUTO) 0 % (0-10); EOSINOPHILS # (AUTO) 0.6 10^3/uL (0.0-0.3); EOSINOPHILS % (AUTO) 5 % (0-10); HEMATOCRIT 37 % (35-52); HEMOGLOBIN 11.7 G/DL (11.5-16.0); LYMPHOCYTES # (AUTO) 2.4 X 10^3 (1.0-4.0); LYMPHOCYTES % (AUTO) 20 % (12-44); MEAN CORPUSCULAR HGB CONC 32 G/DL (32-36); MEAN CORPUSCULAR VOLUME 93 FL (80-99); MEAN PLATELET VOLUME 11.8 FL (7.4-10.4); MONOCYTES # (AUTO) 0.6 X 10^3 (0.0-1.0); MONOCYTES % (AUTO) 5 % (0-12); NEUTROPHILS # (AUTO) 8.7 X 10^3 (1.8-7.8); NEUTROPHILS % (AUTO) 70 % (42-75); PLATELET COUNT 285 10^3/uL (130-400); RED CELL DISTRIBUTION WIDTH 14.2 % (10.0-14.5); WHITE BLOOD COUNT 12.4 10^3/uL (4.3-11.0)
[2019-09-09 03:47] LABS: MEAN CORPUSCULAR HEMOGLOBIN 29 PG (25-34)
[2019-09-09 04:04] LABS: ALANINE AMINOTRANSFERASE 24 U/L (0-55); ALBUMIN 2.9 GM/DL (3.2-4.5); ALKALINE PHOSPHATASE 69 U/L (40-136); BILIRUBIN,TOTAL 0.2 MG/DL (0.1-1.0); BUN/CREATININE RATIO 19; CALCIUM 9.1 MG/DL (8.5-10.1); CARBON DIOXIDE 29 MMOL/L (21-32); CHLORIDE 103 MMOL/L (98-107); CHOLESTEROL 162 MG/DL (< 200); CREATININE SERUM 0.78 MG/DL (0.60-1.30); GFR ESTIMATED > 60; GLUCOSE 132 MG/DL (70-105); HDL CHOLESTEROL 49 MG/DL (40-60); POTASSIUM 3.7 MMOL/L (3.6-5.0); SODIUM 143 MMOL/L (135-145); TRIGLYCERIDES 88 MG/DL (<150); VLDL CHOLESTEROL 18 MG/DL (5-40)
--- NOTE | 2019-09-09 04:49 | NUR ---
0413-- CONTACTED DR. MARSHALL IN REGARDS TO PTS HIGH BLOOD PRESSURE. NO NEW ORDERS RECEIVED.
[2019-09-09] MEDS: inSUlin ASPART (NovoLOG) 1 UNIT/0.01 ML (CHARGE PER UNIT) SC SCH ×3 (05:02→16:18)
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
[2019-09-09] MEDS ORDERED: ACETAMINOPHEN 325 MG TABLET PO PRN (05:45)
[2019-09-09] MEDS ORDERED: cloNIDine 0.2 MG (CATAPRES) TAB ONE (05:48)
[2019-09-09] MEDS ORDERED: amLODIPine 10 MG (NORVASC) TAB ONE (05:49)
[2019-09-09] MEDS ORDERED: lisINopril 40 MG (PRINIVIL) TABLET ONE (05:49)
[2019-09-09] MEDS: amLODIPine 5 MG (NORVASC) TAB PO SCH ×2 (05:51→06:38)
[2019-09-09] MEDS: cloNIDine 0.2 MG (CATAPRES) TAB PO SCH ×2 (05:51→05:53)
[2019-09-09] MEDS: lisINopril 20 MG (PRINIVIL) TABLET PO SCH ×2 (05:52→06:39)
[2019-09-09] MEDS: hydrALAZINE (APESOLINE) 20 MG/ML VIAL IV SCH ×3 (06:03→18:50)
--- NOTE | 2019-09-09 06:12 | NUR ---
Patient called staff to the room c/o chest pain rated 7 out of 0-10. Stat EKG obtained. Patient hypertensive 201/107. Patient c/o mid sternal chest pain radiating to mid back.
--- NOTE | 2019-09-09 06:36 | Diagnostic Imaging Report ---
INDICATION: Chest pain. Comparison made with prior examination from 12/29/2018 FINDINGS: There is cardiomegaly. There is some venous congestion. There is no pleural effusion or pneumothorax. The mediastinum is unremarkable. IMPRESSION: Cardiomegaly and mild central pulmonary venous congestion. Dictated by: Dictated on workstation # [id number]
--- NOTE | 2019-09-09 06:40 | NUR ---
MORNING DOSE OF CLONIDINE, AMLODIPINE, AND LISINOPRIL ADMINISTERED EARLY PER DR. ADORNO D/T HYPERTENSION AND C/O HEADACHE.
[2019-09-09] MEDS ORDERED: RT-ALBUTEROL SULF 2.5 MG/3 ML PRE-MIX VIAL INH SCH (08:00)
[2019-09-09] MEDS ORDERED: ASPIRIN E.C. 81 MG (ECOTRIN) TAB PO SCH (09:00)
[2019-09-09] MEDS ORDERED: C,E,1CAP2 PO (09:17)
[2019-09-09] MEDS ORDERED: INSU100I23 SC (09:17)
[2019-09-09] MEDS ORDERED: ALBU18HF2 INH (09:17)
[2019-09-09] MEDS ORDERED: METO2.5T PO (09:17)
[2019-09-09] MEDS ORDERED: FAMO20TA5 PO (09:17)
[2019-09-09] MEDS ORDERED: GBPN600T PO (09:17)
[2019-09-09] MEDS ORDERED: INSU100I32 SQ (09:30)
[2019-09-09] MEDS ORDERED: NAPR220T66 PO (09:30)
[2019-09-09] MEDS ORDERED: LORA10TA76 PO (09:34)
[2019-09-09] MEDS ORDERED: MULT1TAB69 PO (09:34)
[2019-09-09] MEDS ORDERED: ASCO-262 PO (09:34)
--- NOTE | 2019-09-09 09:35 | NUR ---
WENT OVER THE EXT MED HX WITH THE PATIENT AND HER . THEY VERIFIED HOW SHE TAKES EACH MEDICATION. SHE IS NO LONGER TAKING THE METOLAZONE, IT HAS BEEN DISCONTINUED. OTC MEDS INCLUDE: VITAMIN D DAILY MAGNESIUM AT 1200 OCUVITE DAILY CALMOSEPTINE PRN FLONASE PRN ALEVE BID MTV DAILY VITAMIN D DAILY AN OTC ALLERGY MED DAILY(ENTERED CLARITIN BUT THEY ARE UNSURE, THEY JUST KNOW ITS AN EQUATE ALLERGY MED OTC.)
--- NOTE | 2019-09-09 10:43 | Consultation-Cardiology ---
HPI-Cardiology Cardiology Consultation Date of Consultation 09/09/19 Date of Admission Time Seen by Provider: 10:42 Indication: Chest pain HPI 73-year-old lady with history of recurrent chest pain, last stress test was done in August 2018, workup with tingling in her left arm spread up to her left shoulder than left side of her chest nitroglycerin then came to the emergency ro om, she was admitted for monitoring, early this morning had another episode of chest pain described it as dull in nature in the retrosternal area and left side of her arm. Currently sitting comfortably, no shortness of breath. No palpitation, no syncope, has been under increasing stress recently. Home Medications & Allergies Allergies: Coded Allergies: Penicillins (Verified Allergy, Mild, 02/19/19) codeine (Verified Allergy, Mild, PT TAKES HYDROCODONE AT HOME, 02/19/19) nitrofurantoin (Verified Allergy, Mild, RASH, 02/19/19) ITCHING/RASH pregabalin (Verified Allergy, Unknown, 02/19/19) sulfur dioxide (Verified Allergy, Unknown, 02/19/19) Home Medication List Reviewed: Yes [id number] Hx Patient Social History Marital Status: Employed/Student: retired Alcohol Use: Occasionally Uses Recreational Drug Use: No Smoking Status: Former Smoker Type Used: Cigarettes 2nd Hand Smoke Exposure: No Recent Foreign Travel: No Recent Infectious Disease Expo: No Recent Hopitalizations: No Immunizations Up To Date Tetanus Booster (TDap): Unknown Date of Pneumonia Vaccine: Sep 05, 2012 Date of Influenza Vaccine: Aug 25, 2018 Past Medical History discussed below Family Medical History Family History: BULBAR POLIO G8 BROTHER Diabetes mellitus G8 BROTHER UNCLE FH: cancer G8 BROTHER FH: kidney cancer G8 SISTER Review of Systems-General Review of Systems Constitutional: see HPI; No chills, No fever EENTM: see HPI, no symptoms reported Respiratory: no symptoms reported, see HPI Cardiovascular: see HPI, chest pain; No edema, No Hx of Intervention, No palpitations, No syncope, No vascular heart diseas, No other Gastrointestinal: no symptoms reported, see HPI Genitourinary: no symptoms reported, see HPI Musculoskeletal: muscle pain; No muscle weakness Skin: no symptoms reported Psychiatric/Neurological: No Symptoms Reported All Other Systems Reviewed Negative Unless Noted: Yes Reviewed Test Results Reviewed Test Results Lab Laboratory Tests Test 09/08/19 23:13 09/09/19 03:20 09/09/19 05:35 Range/Units White Blood Count 13.0 H 12.4 H 4.3-11.0 10^3/uL Red Blood Count 4.08 L 3.97 L 4.35-5.85 10^6/uL Hemoglobin 12.0 11.7 11.5-16.0 G/DL Hematocrit 38 37 35-52 % Mean Corpuscular Volume 93 93 80-99 FL Mean Corpuscular Hemoglobin 29 29 25-34 PG Mean Corpuscular Hemoglobin Concent 32 32 32-36 G/DL Red Cell Distribution Width 14.1 14.2 10.0-14.5 % Platelet Count 303 285 130-400 10^3/uL Mean Platelet Volume 11.8 H 11.8 H 7.4-10.4 FL Neutrophils (%) (Auto) 67 70 42-75 % Lymphocytes (%) (Auto) 22 20 12-44 % Monocytes (%) (Auto) 6 5 0-12 % Eosinophils (%) (Auto) 4 5 0-10 % Basophils (%) (Auto) 0 0 0-10 % Neutrophils # (Auto) 8.6 H 8.7 H 1.8-7.8 X 10^3 Lymphocytes # (Auto) 2.9 2.4 1.0-4.0 X 10^3 Monocytes # (Auto) 0.8 0.6 0.0-1.0 X 10^3 Eosinophils # (Auto) 0.6 H 0.6 H 0.0-0.3 10^3/uL Basophils # (Auto) 0.0 0.0 0.0-0.1 10^3/uL Prothrombin Time 14.5 12.2-14.7 SEC INR Comment 1.1 0.8-1.4 Activated Partial Thromboplast Time 33 24-35 SEC Sodium Level 142 143 135-145 MMOL/L Potassium Level 3.6 3.7 3.6-5.0 MMOL/L Chloride Level 101 103 98-107 MMOL/L Carbon Dioxide Level 30 29 21-32 MMOL/L Anion Gap 11 11 5-14 MMOL/L Blood Urea Nitrogen 17 15 7-18 MG/DL Creatinine 0.85 0.78 0.60-1.30 MG/DL Estimat Glomerular Filtration Rate > 60 > 60 BUN/Creatinine Ratio 20 19 Glucose Level 175 H 132 H 70-105 MG/DL Calcium Level 9.2 9.1 8.5-10.1 MG/DL Corrected Calcium 10.0 10.0 8.5-10.1 MG/DL Magnesium Level 2.0 1.6-2.4 MG/DL Total Bilirubin 0.2 0.2 0.1-1.0 MG/DL Aspartate Amino Transf (AST/SGOT) 19 19 5-34 U/L Alanine Aminotransferase (ALT/SGPT) 25 24 0-55 U/L Alkaline Phosphatase 72 69 40-136 U/L Myoglobin 35.7 10.0-92.0 NG/ML Troponin I < 0.028 < 0.028 <0.028 NG/ML B-Type Natriuretic Peptide 51.3 <100.0 PG/ML Total Protein 7.1 7.0 6.4-8.2 GM/DL Albumin 3.0 L 2.9 L 3.2-4.5 GM/DL Triglycerides Level 88 <150 MG/DL Cholesterol Level 162 < 200 MG/DL LDL Cholesterol Direct 102 1-129 MG/DL VLDL Cholesterol 18 5-40 MG/DL HDL Cholesterol 49 40-60 MG/DL Physical Exam Physical Exam Vital Signs Vital Signs - First Documented 09/08/19 09/09/19 09/09/19 22:39 01:38 06:16 Temp 36.5 Pulse 84 Resp 22 B/P (MAP) 158/78 (104) Pulse Ox 97 O2 Delivery Room Air O2 Flow Rate 2.00 Capillary Refill : Less Than 3 Seconds Height, Weight, BMI Height: 5'9.00" Weight: 250lbs. 0.0oz. 113.994076wc; 39.11 BMI Method:Stated General Appearance: No Apparent Distress, WD/WN Eyes: Bilateral Eye Normal Inspection, Bilateral Eye PERRL, Bilateral Eye EOMI HEENT: PERRL/EOMI, Pharynx Normal Neck: Non Tender, Supple Respiratory: Lungs Clear, Normal Breath Sounds Cardiovascular: Regular Rate, Rhythm, No Edema, No Gallop, No JVD, No Murmur, Irregularly Irregular Gastrointestinal: Normal Bowel Sounds, Non Tender, Soft Back: Normal Inspection, No CVA Tenderness, No Vertebral Tenderness Extremity: Normal Range of Motion, Non Tender Neurologic/Psychiatric: Alert, Oriented x3 Skin: Normal Color, Warm/Dry Lymphatic: No Adenopathy A/P-Cardiology Admission Diagnosis Chest pain Syncope Coronary artery disease Hypertension Assessment/Plan Chest pain, nonspecific etiology, last stress test was done in August 2018, was borderline stress test, had another episode of chest pain early this morning, planning to repeat her stress test today. history of Syncope, unknown etiology, extensive workup, no source was found, having occasional dizziness no further syncope was reported. Paroxysmal atrial fibrillation-maintained on digoxin, Coreg, Xarelto, no further episodes of atrial fibrillation were reported. Continue to monitor [id number] score is 4, yearly risk patient is 4 percent, started on Xarelto, doing well. Continue on current medication. 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 Continue to monitor Chronic DVT to lower extremity-no changes recommended at this time, maintained on Xarelto. History of chronic chest pain with a normal cardiac catheterization in 2010, repeat cardiac catheterization was done in October 2014 with IVUS done by Dr. Carney and showed 30-40 percent LAD stenosis, 10 percent left main stenosis otherwise nonobstructive disease. Patient was reassured Hypertension, currently well controlled. Continue monitor blood pressure/heart rate. Hyperlipidemia, lipid profile was done on August 04, 2018 showing total cholesterol 137, HDL 57, triglyceride 71, LDL 66. Continue on current medications and monitor Mild bilateral carotid stenosis, last ultrasound was done in August 2017, I will reevaluate carotid duplex. History of dyspnea on exertion, chronic, no changes from baseline. Continue to monitor Obesity, BMI is 35, discussed weight loss Benign essential tremor Diabetes mellitus, managed by Dr. Romero. History of renal cysts, has been followed by Dr. Sethi. History of breast cancer, followed and managed by Dr. Fernández. Bipolar disorder Mnires disease Anxiety Depression Obstructive sleep apnea not using BiPAP at this time. Degenerative joint disease, multiple hip surgeries, MRSA infection. Now followed and managed by primary care physician Clinical Quality Measures AMI/AHF: ASA po Prior to arrival: Yes DVT/VTE Risk/Contraindication: Risk Factor Score Per Nursin RFS Level Per Nursing on Admit: 4+=Very High SHEELA BANUELOS MD Sep 09, 2019 10:43
[2019-09-09] MEDS ORDERED: REGADENOSON 0.4 MG/5 ML SYR (LEXISCAN) IV ONE ×2 (10:45→13:06)
[2019-09-09 11:52] LABS: BILIRUBIN,URINE NEGATIVE (NEGATIVE); GLUCOSE, URINE (UA) NEGATIVE (NEGATIVE); KETONES,URINE NEGATIVE (NEGATIVE); LEUKOCYTE ESTERASE ,URINE 1+ (NEGATIVE); NITRITE,URINE NEGATIVE (NEGATIVE); PH,URINE 7 (5-9); PROTEIN,URINE 4+ (NEGATIVE)
[2019-09-09 11:59] LABS: BACTERIA,URINE MODERATE /HPF; CLARITY,URINE CLEAR; COLOR,URINE YELLOW; SQUAMOUS EPITHELIAL CELL,UR 25-50 /HPF
[2019-09-09] MEDS ORDERED: FLUTICASONE NASAL SPRAY (FLONASE) 16 GM BTL NS PRN (14:45)
[2019-09-09] MEDS ORDERED: SPIRONOLACTONE 25 MG (ALDACTONE) TAB PO NR (14:45)
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
[2019-09-09] MEDS ORDERED: cloNIDine 0.2 MG (CATAPRES) TAB PO SCH (15:00)
[2019-09-09] MEDS ORDERED: TROSPIUM 20 MG (SANCTURA) TAB PO SCH ×2 (16:00→21:00)
--- NOTE | 2019-09-09 17:06 | Clinic Account Progress/Dx ---
Clinic Account Progress/Dx DIAGNOSIS: Date Seen by Provider: Sep 09, 2019 Time Seen by Provider: 17:05 Chest pain Syncope Coronary artery disease Hypertension SHEELA BANUELOS MD Sep 09, 2019 17:06
--- NOTE | 2019-09-09 17:28 | STRESS TEST ---
DATE OF SERVICE: 09/09/2019 LEXISCAN MYOVIEW STRESS TEST REFERRING PHYSICIANS: 1. Lb Christine DO 2. Zak Mckeon MD Baseline heart rate is 82. Baseline blood pressure is 186/98. Baseline EKG is atrial fibrillation with no ischemic changes. In summary, the patient was injected with 9.2 mCi of technetium-99 Myoview and the resting images were obtained. Then, the patient received 0.4 mg of Lexiscan followed by 29.0 mCi of technetium-99 Myoview. Throughout the test, there were no EKG changes. The resting and stress images were reviewed and compared in the short axis, horizontal long axis, and vertical long axis views. Review of the images showed good radiotracer uptake with no significant ischemia or infarction. SSS is 2, SDS 2, TID value 1.08. On the gated images, the left ventricle appeared to be in normal size. Calculated ejection fraction is 61%. Underlying atrial fibrillation. CONCLUSION: 1. The patient tolerated Lexiscan well. 2. Baseline atrial fibrillation with no ischemic changes. 3. No ischemia or infarction on SPECT images. 4. Normal left ventricular size with normal contractility. Calculated ejection fraction is 61%, underlying rhythm is atrial fibrillation. Job ID: [id number] DocumentID: [id number] Dictated Date: 09/09/2019 16:58:14 Transfer Car Operator Date: 09/09/2019 17:26:56 Dictated By: SHEELA BANUELOS MD
[2019-09-09] MEDS ORDERED: RIVAROXABAN 20 MG TABLET (XARELTO) PO SCH (21:00)
[2019-09-09] MEDS ORDERED: busPIRone 15 MG (BUSPAR) TABLET PO SCH (21:00)
[2019-09-09] MEDS ORDERED: GABAPENTIN 600 MG (NEURONTIN) TAB PO SCH (21:00)
[2019-09-10] MEDS ORDERED: SPIRONOLACTONE 25 MG (ALDACTONE) TAB PO SCH (09:00)
[2019-09-10] MEDS ORDERED: FAMOTIDINE 20 MG (PEPCID) TABLET PO SCH (09:00)
[2019-09-10] MEDS ORDERED: OXcarbazepine (TRILEPTAL) 300 MG TAB PO SCH (09:00)
[2019-09-10] MEDS ORDERED: FUROSEMIDE 40 MG (LASIX) TAB PO SCH (09:00)
[2019-09-10] MEDS ORDERED: LORATADINE (CLARITIN) 10 MG TAB PO SCH (09:00)
== END 2019-09-09 18:25 | disposition home or self-care (01) ==
LOC: EDUNIT# 22:37 → ER 22:39 → ICU 09-09 00:40
PROVIDERS: ADMIT Internal Medicine; ATTEND Internal Medicine
DX: I25.10 Atherosclerotic heart disease of native coronary artery without angina pectoris (principal); I82.509 Chronic embolism and thrombosis of unspecified deep veins of unspecified lower extremity; I48.91 Unspecified atrial fibrillation; I25.2 Old myocardial infarction; I11.9 Hypertensive heart disease without heart failure; I26.99 Other pulmonary embolism without acute cor pulmonale; J30.9 Allergic rhinitis, unspecified; G47.30 Sleep apnea, unspecified; J44.9 Chronic obstructive pulmonary disease, unspecified; K21.9 Gastro-esophageal reflux disease without esophagitis; K52.9 Noninfective gastroenteritis and colitis, unspecified; M19.90 Unspecified osteoarthritis, unspecified site; M79.7 Fibromyalgia; G89.29 Other chronic pain; M54.9 Dorsalgia, unspecified; E11.9 Type 2 diabetes mellitus without complications; H35.30 Unspecified macular degeneration; F31.9 Bipolar disorder, unspecified; Z88.5 Allergy status to narcotic agent; Z88.0 Allergy status to penicillin; Z88.8 Allergy status to other drugs, medicaments and biological substances; Z79.4 Long term (current) use of insulin; Z79.84 Long term (current) use of oral hypoglycemic drugs
CPT/HCPCS: 36415; 71045; 80053; 80061; 81000; 82962; 83735; 83874; 83880; 84484; 85025; 85610; 85730; 87088; 93005; 93041; 94640

== ENCOUNTER → 2019-10-15 | Outpatient (CLI) | payer MEDICARE, MEDICAID ==
[~2019-10-15] MED LIST changes: +ALBU18HF2 INH; +ASCO-262 PO; +C,E,1CAP2 PO; +GBPN600T PO; +INSU100I23 SC; +LORA10TA76 PO; +MULT1TAB69 PO; +NAPR220T66 PO
--- NOTE | 2019-10-15 11:16 | Diagnostic Imaging Report ---
INDICATION: Neck pain. TIME OF EXAM: 10:08 a.m. TECHNIQUE: Multiple views of the cervical spine were obtained. FINDINGS: Curvature and alignment is normal. There is multilevel facet arthropathy. There is also degenerative disc disease at C4-C5 and C5-C6 levels with disc space narrowing and marginal spurring. Prevertebral tissues are normal. Odontoid is intact. IMPRESSION: Cervical spondylosis. No acute bony abnormality is detected. Dictated by: Dictated on workstation # [id number]
== END ==
LOC: LAB 09:13
PROVIDERS: ATTEND Nurse Practitioner Family
DX: M47.812 Spondylosis without myelopathy or radiculopathy, cervical region (principal); N30.11 Interstitial cystitis (chronic) with hematuria; J01.01 Acute recurrent maxillary sinusitis
CPT/HCPCS: 72050

== ENCOUNTER 2019-11-25 10:47 | Emergency (ER) | payer MEDICARE, MEDICAID ==
[~2019-11-25] VITALS: Ht 172.2 cm; Wt 109.0 kg
[~2019-11-25 10:47] MED LIST changes: +TRM50T PO
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
[2019-11-25] MEDS ORDERED: predniSONE 20 MG TAB PO ONE (12:15)
[2019-11-25] MEDS ORDERED: BENZONATATE 100 MG (TESSALON) CAPSULE PO ONE (12:15)
[2019-11-25] MEDS ORDERED: guaiFENesin (MUCINEX) 600 MG TAB PO ONE (12:15)
[2019-11-25] MEDS ORDERED: RT-ALBUTEROL/IPRATROPIUM 3 ML (DUONEB) VIAL INH ONE ×2 (12:15→14:15)
--- NOTE | 2019-11-25 12:49 | NUR ---
WAITING FOR MEDS TO COME FROM PHARMACY
--- NOTE | 2019-11-25 13:08 | Diagnostic Imaging Report ---
INDICATION: Chest pain. TECHNIQUE: Two-view chest at 12:58 p.m. CORRELATION STUDY: 09/08/2019. FINDINGS: Heart size is generally stable. There is abnormal fullness of the hilar structures, right greater than left. Vasculature appears increased. Lung mendoza peripherally demonstrate no consolidating infiltrate. Mild bridging osteophytes at the thoracic spine. Chronic, likely post-traumatic changes about the right shoulder. IMPRESSION: 1. Abnormal fullness of the hilar structures, right greater than left. This has adversely changed from prior study. This could be owing to underlying edema versus infiltrate. However, at the right hilum, underlying adenopathy and/or mass lesion is not excluded. Short-term follow-up two-view chest imaging would be recommended for reassessment. Dictated by: Dictated on workstation # [id number]
[2019-11-25] MEDS ORDERED: BENZ100C18 PO (14:22)
[2019-11-25] MEDS ORDERED: CIPR500T4 PO (14:22)
[2019-11-25] MEDS ORDERED: ALBU2.5V4 INH (14:22)
[2019-11-25] MEDS ORDERED: PRD20T PO (14:22)
[2019-11-25 14:56] VITALS: BP 177/109
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
== END 2019-11-25 15:00 | disposition home or self-care (01) ==
LOC: EDUNIT# 10:47 → ER 10:48
DX: J18.9 Pneumonia, unspecified organism (principal); J44.0 Chronic obstructive pulmonary disease with (acute) lower respiratory infection; I10 Essential (primary) hypertension; E78.00 Pure hypercholesterolemia, unspecified; I25.2 Old myocardial infarction; I25.10 Atherosclerotic heart disease of native coronary artery without angina pectoris; I48.91 Unspecified atrial fibrillation; G47.30 Sleep apnea, unspecified; F03.90 Unspecified dementia, unspecified severity, without behavioral disturbance, psychotic disturbance, mood disturbance, and anxiety; E11.9 Type 2 diabetes mellitus without complications; F41.9 Anxiety disorder, unspecified; F31.9 Bipolar disorder, unspecified; K21.9 Gastro-esophageal reflux disease without esophagitis; M79.7 Fibromyalgia; Z85.3 Personal history of malignant neoplasm of breast; Z99.89 Dependence on other enabling machines and devices; Z87.440 Personal history of urinary (tract) infections; Z86.718 Personal history of other venous thrombosis and embolism; Z88.0 Allergy status to penicillin; Z88.5 Allergy status to narcotic agent; Z88.8 Allergy status to other drugs, medicaments and biological substances; Z79.51 Long term (current) use of inhaled steroids; Z79.4 Long term (current) use of insulin; Z87.891 Personal history of nicotine dependence; Z90.49 Acquired absence of other specified parts of digestive tract; Z90.710 Acquired absence of both cervix and uterus; Z90.89 Acquired absence of other organs; Z86.711 Personal history of pulmonary embolism; Z80.51 Family history of malignant neoplasm of kidney
CPT/HCPCS: 71046; 87070; 87077; 87185; 87186; 87205; 94640

== ENCOUNTER 2019-12-17 10:49 | Observation (INO) | payer MEDICARE, MEDICAID ==
[~2019-12-17] VITALS: Ht 175.3 cm; Wt 133.8 kg
[~2019-12-17 10:49] MED LIST changes: +ALBU2.5V4 INH; -AZIT500T5 PO; +AZIT500T9 PO; +BENZ100C18 PO; -DIGO125T PO; +DIGO125T3 PO; -DIGO250T PO; +DIGO250T3 PO; +FLUT15.845 NS; -FLUT15.88 NS; -MAGN400T6 PO; +MAGN400T8 PO; +OX05NA15 NS; -OXYM30SP70 NS; +PRD20T PO; -VANC1PLA12 IV; +VANC1PLA18 IV
[2019-12-17] MEDS ORDERED: ASPIRIN 81 MG CHEW (CHILDREN'S ASA) PO ONE (11:00)
[2019-12-17] MEDS: NITROGLYCERIN 0.4 MG SL TABS BTL 25'S SL PRN ×2 (11:15→11:27)
[2019-12-17 11:19] LABS: BASOPHILS # (AUTO) 0.1 10^3/uL (0.0-0.1); BASOPHILS % (AUTO) 1 % (0-10); EOSINOPHILS # (AUTO) 0.5 10^3/uL (0.0-0.3); EOSINOPHILS % (AUTO) 5 % (0-10); HEMATOCRIT 40 % (35-52); HEMOGLOBIN 12.6 G/DL (11.5-16.0); LYMPHOCYTES # (AUTO) 1.9 X 10^3 (1.0-4.0); LYMPHOCYTES % (AUTO) 18 % (12-44); MEAN CORPUSCULAR HEMOGLOBIN 30 PG (25-34); MEAN CORPUSCULAR HGB CONC 31 G/DL (32-36); MEAN CORPUSCULAR VOLUME 95 FL (80-99); MEAN PLATELET VOLUME 11.3 FL (7.4-10.4); MONOCYTES # (AUTO) 0.6 X 10^3 (0.0-1.0); MONOCYTES % (AUTO) 6 % (0-12); NEUTROPHILS # (AUTO) 7.7 X 10^3 (1.8-7.8); NEUTROPHILS % (AUTO) 72 % (42-75); PLATELET COUNT 296 10^3/uL (130-400); RED CELL DISTRIBUTION WIDTH 15.6 % (10.0-14.5); WHITE BLOOD COUNT 10.8 10^3/uL (4.3-11.0)
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
[2019-12-17 11:37] LABS: ALANINE AMINOTRANSFERASE 7 U/L (0-55); ALBUMIN 3.6 GM/DL (3.2-4.5); ALKALINE PHOSPHATASE 58 U/L (40-136); BILIRUBIN,TOTAL 0.3 MG/DL (0.1-1.0); BUN/CREATININE RATIO 14; CALCIUM 9.6 MG/DL (8.5-10.1); CARBON DIOXIDE 28 MMOL/L (21-32); CHLORIDE 103 MMOL/L (98-107); CREATININE SERUM 0.84 MG/DL (0.60-1.30); GFR ESTIMATED > 60; GLUCOSE 114 MG/DL (70-105); POTASSIUM 4.1 MMOL/L (3.6-5.0); SODIUM 143 MMOL/L (135-145); TOTAL PROTEIN 8.2 GM/DL (6.4-8.2)
--- NOTE | 2019-12-17 11:45 | Diagnostic Imaging Report ---
INDICATION: Shortness of breath. Portable chest obtained at 11:32 a.m. and compared to 11/25/2019. There is cardiomegaly. There is diffuse central vascular congestion with borderline interstitial edema. There is no consolidation, pneumothorax, or pleural fluid. IMPRESSION: Cardiomegaly with central vascular congestion and borderline interstitial edema. No consolidation or pleural fluid. Dictated by: Dictated on workstation # [id number]
[2019-12-17] MEDS ORDERED: FUROSEMIDE 40 MG/4 ML INJ (LASIX) IVP ONE (12:00)
[2019-12-17 12:09] LABS: INR 1.4 (0.8-1.4); PROTHROMBIN TIME PATIENT 17.8 SEC (12.2-14.7)
[2019-12-17] MEDS ORDERED: hydrALAZINE (APESOLINE) 20 MG/ML VIAL IV ONE (12:15)
[2019-12-17] MEDS ORDERED: RT-ALBUINH IH (13:05)
[2019-12-17] MEDS ORDERED: POTA10TA PO (13:05)
[2019-12-17] MEDS ORDERED: ALBU2.5V4 NEB (13:05)
[2019-12-17] MEDS ORDERED: CARV12.53 PO (13:05)
[2019-12-17] MEDS ORDERED: cloNIDine 0.1 MG (CATAPRES) TAB PO NR (13:45)
[2019-12-17] MEDS ORDERED: CATHETER FLUSH 10 ML SYR IV PRN (14:00)
[2019-12-17] MEDS ORDERED: MAGN400C3 PO (14:03)
[2019-12-17] MEDS ORDERED: INSU100I14 SQ (14:03)
[2019-12-17] MEDS ORDERED: CHOL500050 PO (14:03)
[2019-12-17] MEDS ORDERED: MIRA50TA PO (14:03)
--- NOTE | 2019-12-17 14:05 | NUR ---
PATIENTS BROUGHT IN A DETAILED MEDICATION LIST. I WENT OVER THAT LIST WITH THE PATIENT AND HER WELL COMPARING TO THE EXT MED HX. SEE LIST ON CHART FOR DETAILS.
[2019-12-17 14:29] VITALS: BP 141/83
[2019-12-17 14:46] VITALS: BP 185/109
--- NOTE | 2019-12-17 15:17 | NUR ---
Pastoral care visit, pt requested a visit and also a huller operator. I visited with the pt and provided reassurance, I also called [facility] and they advised a Patternmaker Wood would visit.
[2019-12-17 16:00] VITALS: BP 176/73
[2019-12-17] MEDS ORDERED: RT-ALBUTEROL/IPRATROPIUM 3 ML (DUONEB) VIAL INH PRN (16:00)
[2019-12-17] MEDS ORDERED: FUROSEMIDE 40 MG/4 ML INJ (LASIX) IV SCH (17:00)
[2019-12-17] MEDS: FUROSEMIDE 40 MG/4 ML INJ (LASIX) IVP SCH (17:43)
[2019-12-17] MEDS: ENOXAPARIN 40 MG/0.4 ML (LOVENOX) SYR SC SCH (17:46)
[2019-12-17] MEDS: KCL 20 MEQ TAB (K-DUR) PO SCH (17:47)
[2019-12-17] MEDS: CATHETER FLUSH 10 ML SYR IV SCH ×2 (17:48→21:39)
[2019-12-17] MEDS: inSUlin ASPART (NovoLOG) 1 UNIT/0.01 ML (CHARGE PER UNIT) SC SCH ×2 (17:56→21:12)
[2019-12-17] MEDS ORDERED: RT-ALBUTEROL/IPRATROPIUM 3 ML (DUONEB) VIAL INH SCH (18:00)
[2019-12-17] MEDS: RT-ALBUTEROL/IPRATROPIUM 3 ML (DUONEB) VIAL INH SCH (19:00)
[2019-12-17] MEDS: CARVEDILOL 12.5 MG (COREG) TABLET PO SCH (20:17)
[2019-12-17] MEDS: cloNIDine 0.1 MG (CATAPRES) TAB PO SCH (20:17)
[2019-12-17 20:30] VITALS: BP 167/78
[2019-12-17] MEDS: HYDROcodone/APAP 7.5 MG/325 MG (LORTAB, LORCET PLUS) TABLET PO PRN (21:10)
[2019-12-17] MEDS ORDERED: MELATONIN 3 MG TABLET PO PRN (21:45)
[2019-12-18 00:40] VITALS: BP 162/68
[2019-12-18] MEDS: HYDROcodone/APAP 7.5 MG/325 MG (LORTAB, LORCET PLUS) TABLET PO PRN ×2 (01:31→10:57)
[2019-12-18 04:17] VITALS: BP 142/71
[2019-12-18 05:12] LABS: BASOPHILS % (AUTO) 0 % (0-10); EOSINOPHILS # (AUTO) 0.4 10^3/uL (0.0-0.3); EOSINOPHILS % (AUTO) 4 % (0-10); HEMATOCRIT 34 % (35-52); HEMOGLOBIN 10.6 G/DL (11.5-16.0); LYMPHOCYTES # (AUTO) 2.1 X 10^3 (1.0-4.0); LYMPHOCYTES % (AUTO) 23 % (12-44); MEAN CORPUSCULAR HEMOGLOBIN 29 PG (25-34); MEAN CORPUSCULAR HGB CONC 31 G/DL (32-36); MEAN CORPUSCULAR VOLUME 94 FL (80-99); MEAN PLATELET VOLUME 11.4 FL (7.4-10.4); MONOCYTES # (AUTO) 0.7 X 10^3 (0.0-1.0); MONOCYTES % (AUTO) 7 % (0-12); NEUTROPHILS # (AUTO) 5.9 X 10^3 (1.8-7.8); NEUTROPHILS % (AUTO) 65 % (42-75); PLATELET COUNT 273 10^3/uL (130-400); RED CELL DISTRIBUTION WIDTH 15.3 % (10.0-14.5); WHITE BLOOD COUNT 9.1 10^3/uL (4.3-11.0)
[2019-12-18 05:36] LABS: ALBUMIN 2.8 GM/DL (3.2-4.5); BILIRUBIN,TOTAL 0.3 MG/DL (0.1-1.0); CREATININE SERUM 0.91 MG/DL (0.60-1.30); POTASSIUM 4.1 MMOL/L (3.6-5.0); TOTAL PROTEIN 6.9 GM/DL (6.4-8.2)
[2019-12-18] MEDS: ENOXAPARIN 40 MG/0.4 ML (LOVENOX) SYR SC SCH (05:50)
[2019-12-18] MEDS: CATHETER FLUSH 10 ML SYR IV SCH (05:50)
[2019-12-18] MEDS: inSUlin ASPART (NovoLOG) 1 UNIT/0.01 ML (CHARGE PER UNIT) SC SCH ×2 (05:52→12:11)
[2019-12-18] MEDS: RT-ALBUTEROL/IPRATROPIUM 3 ML (DUONEB) VIAL INH SCH ×3 (06:27→14:16)
[2019-12-18] MEDS: KCL 20 MEQ TAB (K-DUR) PO SCH (06:35)
[2019-12-18] MEDS: FUROSEMIDE 40 MG/4 ML INJ (LASIX) IVP SCH (06:35)
--- NOTE | 2019-12-18 07:25 | Diagnostic Imaging Report ---
INDICATION: Congestive heart failure Portable chest 3:35 AM There is cardiomegaly with pulmonary vascular congestion. Lungs are clear. There are no effusions or pneumothoraces. IMPRESSION: Congestive heart failure. No appreciable change compared to the previous day. Dictated by: Dictated on workstation # [id number]
[2019-12-18 08:00] VITALS: BP 138/60
--- NOTE | 2019-12-18 08:49 | Consultation-Cardiology ---
HPI-Cardiology Cardiology Consultation Date of Consultation 12/18/19 Date of Admission Time Seen by Provider: 08:21 Indication: Chest pain, shortness of breath HPI This is a 74 y/o pt w/ PMH of HTN, Afib, CHF, pulmonary HTN, DVTs, and PE who presented to the ED yesterday (12/17/2019) with increased peripheral edema and chest pain over xiphoid process. States the chest pain started on Saturday (12/16/2019) and after mentioning her pain to her PCP, Dr. Christine, yesterday she was advised to report to the ED. Her cardiac work up at the ED was negative except evidence of CHF, mild interstitial edema, and pulmonary vascular HTN on CXR. Pt currently c/o swelling and tenderness to bilat LE but denies CP, SOB, palpitations, BERRY, N/V, or any other new sx. 74-year-old lady with history of congestive heart failure, left ventricular diastolic dysfunction, chronic atrial fibrillation, hypertension. Has been having increasing peripheral edema, chest pain, generalized body. Had recent workup with stress test showing no ischemia, echo was done today showing normal left ventricular size, diastolic dysfunction, feeling better this morning. Responding to diuretics. Home Medications & Allergies Allergies: Coded Allergies: Penicillins (Verified Allergy, Mild, 02/19/19) codeine (Verified Allergy, Mild, PT TAKES HYDROCODONE AT HOME, 02/19/19) nitrofurantoin (Verified Allergy, Mild, RASH, 02/19/19) ITCHING/RASH pregabalin (Verified Allergy, Unknown, 02/19/19) sulfur dioxide (Verified Allergy, Unknown, 02/19/19) Home Medication List Reviewed: Yes Medication list reviewed CLE-Fkjnzs-Hmomef Hx Patient Social History Marital Status: Employed/Student: retired Alcohol Use: Denies Use Recreational Drug Use: No Smoking Status: Former Smoker Type Used: Cigarettes 2nd Hand Smoke Exposure: No Recent Foreign Travel: No Recent Infectious Disease Expo: No Recent Hopitalizations: No Immunizations Up To Date Tetanus Booster (TDap): Unknown Date of Pneumonia Vaccine: Sep 05, 2012 Date of Influenza Vaccine: Aug 25, 2019 Past Medical History Discussed below Family Medical History Significant Family History: No Pertinent Family Hx Family History: G8 BROTHER FH: cancer G8 SISTER FH: kidney cancer G8 BROTHER Diabetes mellitus G8 BROTHER BULBAR POLIO UNCLE Diabetes mellitus Review of Systems-General Review of Systems Constitutional: see HPI, dizziness (chronic); No fever, No malaise EENTM: see HPI, no symptoms reported Respiratory: see HPI; No cough; dyspnea on exertion; No orthopnea; short of breath Cardiovascular: see HPI, chest pain, edema, Hx of Intervention; No palpitations Gastrointestinal: see HPI; No abdominal pain, No nausea, No vomiting Genitourinary: no symptoms reported, see HPI Musculoskeletal: see HPI, back pain, joint pain; No joint swelling; muscle stiffness, other (bilat LE tenderness ) Skin: no symptoms reported, see HPI Psychiatric/Neurological: No Symptoms Reported, See HPI Reviewed Test Results Reviewed Test Results Lab Laboratory Tests 12/17/19 11:09 12/18/19 04:55 Physical Exam Physical Exam Vital Signs Vital Signs - First Documented 12/17/19 14:46 FiO2 21 Capillary Refill : Less Than 3 Seconds Height, Weight, BMI Height: 5'9.00" Weight: 250lbs. 0.0oz. [id number]; 44.15 BMI Method:Stated General Appearance: No Apparent Distress, WD/WN, Obese HEENT: PERRL/EOMI, TMs Normal Respiratory: No Accessory Muscle Use, No Respiratory Distress, Crackles (mild diffuse crackles), Other (no respiratory distress speaks in full sentences smiling well appearing) Cardiovascular: Normal Peripheral Pulses, Systolic Murmur, Irregularly Irregular (rate controlled, rate of 80 A. fib) Gastrointestinal: Normal Bowel Sounds, Non Tender, Soft Extremity: Normal Capillary Refill, Calf Tenderness, Pedal Edema, Other (bilateral 3+ peripheral edema up to mid diamond, with tenderness to palpation of bilateral LE ) Neurologic/Psychiatric: Alert, Oriented x3, Other (hx of dementia) Skin: Normal Color, Warm/Dry A/P-Cardiology Admission Diagnosis Chest pain Shortness of breath Chronic atrial fibrillation Hypertension Assessment/Plan Chest pain, nonspecific etiology, last stress test was done in August 2019, showed baseline Afib with no ischemic changes. Estimated EF was calculated at 61%, cardiac enzymes are negative, EKG did not show any acute changes. Okay for discharge from cardiology standpoint Congestive heart failure, acute on chronic left ventricular diastolic dysfunction, responded to diuretics well. Continue with diuretic cautiously due to history of hypotension and syncope, discussed with Dr. High Paroxysmal atrial fibrillation-Taking Xarelto, currently in Afib. Rate controlled. Continue to monitor Pulmonary hypertension, PA pressure of 70 mmHg, last echocardiogram was done in March 2018, she had calcified mitral valve with moderate to severe mitral regurgitation, moderate aortic regurgitation and moderate tricuspid regurgitation, ejection fraction 75-80 percent. Continue to monitor Patent [place], 1.1 cm with [id number]-[id number] shunt per 2-D echocardiogram 2014, continue to monitor Chronic DVT to lower extremity-maintained on Xarelto, pt has tenderness to LE, may consider venous Doppler U/S of LE History of chronic chest pain with a normal cardiac catheterization in 2010, repeat cardiac catheterization was done in October 2014 with IVUS done by Dr. Carney and showed 30-35% percent LAD stenosis, 10 percent left main stenosis otherwise nonobstructive disease. Hypertension, better controlled, monitor blood pressure Hyperlipidemia, Managed by PCP Obesity, BMI 43.5 Benign essential tremor Diabetes mellitus, Managed by primary care team History of renal cysts, has been followed by Dr. Sethi who did a cystoscopy for her in 2018. History of breast cancer Bipolar disorder Mnires disease Anxiety Depression Dementia Obstructive sleep apnea not using BiPAP at this time. Degenerative joint disease, multiple hip surgeries, MRSA infection, and hx of multiple UTIs Clinical Quality Measures AMI/AHF: ASA po Prior to arrival: No DVT/VTE Risk/Contraindication: Risk Factor Score Per Nursin RFS Level Per Nursing on Admit: 4+=Very High Supervisory-Addendum Brief Verification & Attestation Participated in pt care: history, MDM, physical Personally performed: exam, history, MDM, supervision of care Care discussed with: Medical Student Procedures: n/a Results interpretation: Verified all documentation Verification and Attestation of Medical Student E/M Service A medical student performed and documented this service in my presence. I reviewed and verified all information documented by the medical student and made modifications to such information, when appropriate. I personally performed the physical exam and medical decision making. I made few modifications to the note using Italic font Sheela Pavon, Dec 18, 2019,10:19 [facility] Dec 18, 2019 08:49 SHEELA PAVON MD Dec 18, 2019 10:18
[2019-12-18] MEDS: cloNIDine 0.1 MG (CATAPRES) TAB PO SCH (08:55)
[2019-12-18] MEDS: CARVEDILOL 12.5 MG (COREG) TABLET PO SCH (08:55)
[2019-12-18] MEDS ORDERED: lisINopril 40 MG (PRINIVIL) TABLET PO SCH (09:00)
[2019-12-18] MEDS ORDERED: amLODIPine 5 MG (NORVASC) TAB PO SCH (09:00)
[2019-12-18 12:00] VITALS: BP 125/81
[2019-12-18 14:17] VITALS: BP 125/81
--- NOTE | 2019-12-18 14:52 | Discharge Summary ---
Discharge Summary Hospital Course Was the Problem List Reviewed?: Yes Problems/Dx: (1) Acute exacerbation of CHF (congestive heart failure) Status: Acute Qualifiers: Qualified Codes: I50.9 - Heart failure, unspecified Final Diagnosis: acute exacerbation of CHF Hospital Course Date of Admission: Dec 17, 2019 at 12:22 Admission Diagnosis : acute exacerbation of CHF Family Physician/Provider: Lb Christine DO Date of Discharge: 12/18/19 Discharge Diagnosis: acute exacerbation of CHF Hospital Course: Agata Pringle is a 74-year-old female who presented with shortness of breath and chest pain and was admitted with acute exacerbation of CHF. Her chest pain was deemed to be musculoskeletal in nature. She was given IV Lasix and responded rapidly. She was evaluated by cardiology. She was discharged home the following day. Labs and Pending Lab Test: Laboratory Tests 12/17/19 16:28: Glucometer 124H 12/17/19 18:11: Troponin I < 0.028 12/17/19 20:03: Glucometer 124H 12/18/19 04:55: White Blood Count 9.1, Red Blood Count 3.66L, Hemoglobin 10.6L, Hematocrit 34L, Mean Corpuscular Volume 94, Mean Corpuscular Hemoglobin 29, Mean Corpuscular Hemoglobin Concent 31L, Red Cell Distribution Width 15.3H, Platelet Count 273, Mean Platelet Volume 11.4H, Neutrophils (%) (Auto) 65, Lymphocytes (%) (Auto) 23, Monocytes (%) (Auto) 7, Eosinophils (%) (Auto) 4, Basophils (%) (Auto) 0, Neutrophils # (Auto) 5.9, Lymphocytes # (Auto) 2.1, Monocytes # (Auto) 0.7, Eosinophils # (Auto) 0.4H, Basophils # (Auto) 0.0, Sodium Level 143, Potassium Level 4.1, Chloride Level 103, Carbon Dioxide Level 28, Anion Gap 12, Blood Urea Nitrogen 13, Creatinine 0.91, Estimat Glomerular Filtration Rate 60, BUN/Creatinine Ratio 14, Glucose Level 69L, Calcium Level 9.0, Corrected Calcium 10.0, Total Bilirubin 0.3, Aspartate Amino Transf (AST/SGOT) 20, Alanine Abdalla otransferase (ALT/SGPT) 8, Alkaline Phosphatase 48, Total Protein 6.9, Albumin 2.8L, Triglycerides Level 75, Cholesterol Level 131, LDL Cholesterol Direct 68, VLDL Cholesterol 15, HDL Cholesterol 49 12/18/19 06:09: Glucometer 68L 12/18/19 11:07: Glucometer 152H Home Meds Active Reported Myrbetriq (Mirabegron) 50 Mg Tab.er.24h 50 Mg PO DAILY Novolog Flexpen (Insulin Aspart) 300 Units/3 Ml Solution 3-5 Units SQ TIDAC Vitamin D3 (Cholecalciferol (Vitamin D3)) 125 Mcg Capsule 125 Mcg PO DAILY Triple Magnesium Complex (Magnesium Oxide,Aspartate,Citr) 400 Mg Capsule 400 Mg PO 1200 K-Tab ER (Potassium Chloride) 10 Meq Tablet.er 10 Meq PO DAILY Carvedilol 12.5 Mg Tablet 12.5 Mg PO BID Albuterol Sulfate 2.5 Mg/3 Ml Vial.neb 2.5 Mg NEB Q6H PRN Proair Hfa (Albuterol Sulfate) 1 Puff Puff 2 Puff IH Q6H PRN 1 PUFF = 90 MCG Claritin (Loratadine) 10 Mg Tablet 10 Mg PO DAILY PRN Vitamin C (Ascorbate Calcium) 500 Mg Tablet 500 Mg PO DAILY Multivitamins (Multivitamin) 1 Each Tablet 1 Tab PO DAILY Aleve (Naproxen Sodium) 220 Mg Tablet 220 Mg PO BID Tresiba Flextouch U-100 (Insulin Degludec) 100 Unit/1 Ml Insuln.pen 46 Unit SQ TH Famotidine 20 Mg Tablet 20 Mg PO DAILY Gabapentin 600 Mg Tablet 600 Mg PO TID Ocuvite Adult 50 Plus Softgel (C,E,Zinc,Copper 24/Om3/Lut/Rita) 1 Each Capsule 1 Cap PO DAILY Clonidine HCl 0.1 Mg Tablet 0.1 Mg PO 1200 PRN Clonidine HCl 0.1 Mg Tablet 0.1 Mg PO BID Hydrocodone-Acetamin 7.5-325 (Hydrocodone/Acetaminophen) 1 Each Tablet 1 Tab PO BID PRN Fluticasone Propionate 16 Gm [place].susp 1 [place] NS BID PRN Tresiba Flextouch U-100 (Insulin Degludec) 100 Unit/1 Ml Insuln.pen 48 Unit SQ SUMOTUWEFRSA Amlodipine Besylate 5 Mg Tablet 5 Mg PO DAILY Xarelto Tablet (Rivaroxaban) 20 Mg Tablet 20 Mg PO HS Trospium Chloride 20 Mg Tablet 20 Mg PO BID TAKE ON AN EMPTY STOMACH Lisinopril 40 Mg Tablet 40 Mg PO DAILY Metformin HCl 500 Mg Tablet 500 Mg PO BID Oxcarbazepine 300 Mg Tablet 300 Mg PO DAILY Furosemide 40 Mg Tablet 80 Mg PO DAILY TAKES 2 (40MG) TABLETS Buspirone HCl 15 Mg Tablet 15 Mg PO TID Assessment/Pt Instructions take medications as prescribed. Follow-up with your primary care doctor in about 2 weeks. Follow up with cardiology as scheduled. Discharge Instructions Discharge Diet: Low Sodium Diet Activity as Tolerated: Yes Pneumonia Vaccine Order Indica: Yes Consultations Cardiology Discharge Physical Examination General Appearance: Alert, Oriented X3, Cooperative, No Acute Distress HEENT: Atraumatic, PERRLA, EOMI, Mucous Memb Moist/[place] Respiratory: Clear to Auscultation, Normal Air Movement Cardiovascular: Regular Rate, Normal S1, Normal S2, No Murmurs Abdominal: Normal Bowel Sounds, Soft, No Tenderness Extremities: No Edema, No Tenderness/Swelling Skin: No Rashes, No Significant Lesion Neuro: Normal Speech, Strength at 5/5 X4 Ext Psych/Mental Status: Mental Status NL, Mood NL Allergies: Coded Allergies: Penicillins (Verified Allergy, Mild, 02/19/19) codeine (Verified Allergy, Mild, PT TAKES HYDROCODONE AT HOME, 02/19/19) nitrofurantoin (Verified Allergy, Mild, RASH, 02/19/19) ITCHING/RASH pregabalin (Verified Allergy, Unknown, 02/19/19) sulfur dioxide (Verified Allergy, Unknown, 02/19/19) Copy Copies To 1: LB CHRISTINE DO Discharge Summary Date of Admission Dec 17, 2019 at 12:22 Date of Discharge Discharge Date: Dec 18, 2019 Discharge Time: 1500 Admission Diagnosis acute exacerbation of CHF Consults/Procedures Consulations Cardiology Discharge Diagnosis acute exacerbation of CHF (1) Acute exacerbation of CHF (congestive heart failure) Status: Acute Qualifiers: Qualified Codes: I50.9 - Heart failure, unspecified Clinical Quality Measures AMI/AHF: ASA po Prior to arrival: No DVT/VTE Risk/Contraindication: Risk Factor Score Per Nursin RFS Level Per Nursing on Admit: 4+=Very High KELY WEBSTER MD Dec 18, 2019 14:51
== END 2019-12-18 14:17 | disposition home or self-care (01) ==
LOC: EDUNIT# 10:49 → ER 10:50 → 4TH 12:22
PROVIDERS: ADMIT Internal Medicine; ATTEND Internal Medicine
DX: I11.0 Hypertensive heart disease with heart failure (principal); I50.33 Acute on chronic diastolic (congestive) heart failure; I48.0 Paroxysmal atrial fibrillation; I25.10 Atherosclerotic heart disease of native coronary artery without angina pectoris; I82.409 Acute embolism and thrombosis of unspecified deep veins of unspecified lower extremity; E78.00 Pure hypercholesterolemia, unspecified; I25.2 Old myocardial infarction; N39.0 Urinary tract infection, site not specified; K21.9 Gastro-esophageal reflux disease without esophagitis; J44.9 Chronic obstructive pulmonary disease, unspecified; M19.90 Unspecified osteoarthritis, unspecified site; M79.7 Fibromyalgia; M54.9 Dorsalgia, unspecified; G89.29 Other chronic pain; E11.9 Type 2 diabetes mellitus without complications; G47.33 Obstructive sleep apnea (adult) (pediatric); F41.9 Anxiety disorder, unspecified; F31.9 Bipolar disorder, unspecified; Z88.2 Allergy status to sulfonamides; Z88.0 Allergy status to penicillin; Z88.5 Allergy status to narcotic agent; Z79.891 Long term (current) use of opiate analgesic; Z79.84 Long term (current) use of oral hypoglycemic drugs; Z85.3 Personal history of malignant neoplasm of breast; Z92.21 Personal history of antineoplastic chemotherapy
CPT/HCPCS: 36415; 71045; 80053; 80061; 82962; 83735; 83874; 83880; 84484; 85025; 85610; 85730; 93005; 93041; 93306; 94640; 94760; 96374; 96375

== ENCOUNTER 2020-01-22 16:54 | Emergency (ER) | payer MEDICARE, MEDICAID ==
[~2020-01-22] VITALS: Ht 175.2 cm; Wt 111.1 kg
[~2020-01-22 16:54] MED LIST changes: +ACHYD1T PO; +BUPR300T98 PO; -CETI10TA20 PO; +CETI10TA21 PO; -HYDR-3816 PO; -HYDR-3820 PO; +MAGN400C3 PO; +MIRA50TA PO; +POTA10TA PO; +QUET100T33 PO; -QUET100T69 PO; +SODI0.5GEL NS; -SODI14.12 NS
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
[2020-01-22 17:33] LABS: BILIRUBIN,URINE NEGATIVE (NEGATIVE); CLARITY,URINE CLEAR; COLOR,URINE YELLOW; GLUCOSE, URINE (UA) NEGATIVE (NEGATIVE); KETONES,URINE NEGATIVE (NEGATIVE); LEUKOCYTE ESTERASE ,URINE TRACE (NEGATIVE); NITRITE,URINE NEGATIVE (NEGATIVE); PROTEIN,URINE 3+ (NEGATIVE)
[2020-01-22 17:43] LABS: BACTERIA,URINE TRACE /HPF; WBC,URINE 25-50 /HPF
[2020-01-22 17:46] LABS: BASOPHILS % (AUTO) 0 % (0-10); EOSINOPHILS # (AUTO) 0.4 10^3/uL (0.0-0.3); EOSINOPHILS % (AUTO) 4 % (0-10); HEMATOCRIT 41 % (35-52); HEMOGLOBIN 12.6 G/DL (11.5-16.0); LYMPHOCYTES # (AUTO) 2.4 X 10^3 (1.0-4.0); LYMPHOCYTES % (AUTO) 21 % (12-44); MEAN CORPUSCULAR HEMOGLOBIN 29 PG (25-34); MEAN CORPUSCULAR HGB CONC 31 G/DL (32-36); MEAN CORPUSCULAR VOLUME 92 FL (80-99); MONOCYTES # (AUTO) 0.6 X 10^3 (0.0-1.0); MONOCYTES % (AUTO) 5 % (0-12); NEUTROPHILS # (AUTO) 8.2 X 10^3 (1.8-7.8); NEUTROPHILS % (AUTO) 71 % (42-75); PLATELET COUNT 263 10^3/uL (130-400); WHITE BLOOD COUNT 11.6 10^3/uL (4.3-11.0)
[2020-01-22 18:02] LABS: CALCIUM 9.7 MG/DL (8.5-10.1); CREATININE SERUM 1.29 MG/DL (0.60-1.30)
[2020-01-22] MEDS ORDERED: NS IV 500 ML 500 ML IV ONE (18:40)
--- NOTE | 2020-01-22 18:57 | Diagnostic Imaging Report ---
PROCEDURE: CT abdomen and pelvis without contrast. TECHNIQUE: Multiple contiguous axial images were obtained through the abdomen and pelvis without the use of intravenous contrast. Auto Exposure Controls were utilized during the CT exam to meet ALARA standards for radiation dose reduction. INDICATION: Right lower quadrant pain for six months, history of several abdominal surgeries including appendectomy, cholecystectomy, hysterectomy and splenectomy. No previous history of cancer. COMPARISON STUDY: CT of the abdomen and pelvis from 05/01/2019. FINDINGS: Lung bases demonstrate calcification of the coronary arteries and aortic valve leaflets. Cardiomegaly is present. The liver appears normal. Common bile duct is prominent without intrahepatic ductal dilatation. No calculi are present. This is probably normal postoperative finding. The spleen is absent. The pancreas and adrenal glands appear normal. There is an 11.5 cm exophytic cyst off the left kidney which has not appreciably changed. Right kidney has an 18 mm nodule off of the upper pole of the right kidney that previously measured 14 mm. This is nonspecific and needs further follow-up given its enlargement. Most likely, this is a hyperdense cyst given its exophytic nature and smooth borders. This measures 29 Hounsfield units on both pre and postcontrast images and strongly suggested that this is a hyperdense cyst. Urinary bladder is normal. The uterus is absent. Bowel loops demonstrate some increased stool in the colon. No obstruction or inflammatory changes are present. There is no ascites, free air, or loculated fluid collections. Postoperative changes are present in the right hip. Degenerative changes are present in the spine. IMPRESSION: 1. There is increased stool throughout the colon. 2. Exophytic renal lesion on the right has increased in size but is still suggestive of a hyperdense cyst. 3. There is a 11.5 cm left renal cyst which was seen previously. 4. Arterial sclerosis is present with cardiomegaly, coronary and aortic valvular calcifications. Dictated by: Dictated on workstation # [id number]
[2020-01-22 19:30] VITALS: BP 152/80
== END 2020-01-22 19:31 | disposition home or self-care (01) ==
LOC: EDUNIT# 16:54 → ER 16:57
DX: K59.09 Other constipation (principal); N39.0 Urinary tract infection, site not specified; I10 Essential (primary) hypertension; E11.9 Type 2 diabetes mellitus without complications; J44.9 Chronic obstructive pulmonary disease, unspecified; I48.91 Unspecified atrial fibrillation; I25.10 Atherosclerotic heart disease of native coronary artery without angina pectoris; I25.2 Old myocardial infarction; F31.9 Bipolar disorder, unspecified; F41.9 Anxiety disorder, unspecified; G47.30 Sleep apnea, unspecified; E78.00 Pure hypercholesterolemia, unspecified; K21.9 Gastro-esophageal reflux disease without esophagitis; Z99.89 Dependence on other enabling machines and devices; Z86.711 Personal history of pulmonary embolism; Z85.3 Personal history of malignant neoplasm of breast; Z86.718 Personal history of other venous thrombosis and embolism; Z88.0 Allergy status to penicillin; Z88.5 Allergy status to narcotic agent; Z88.1 Allergy status to other antibiotic agents; Z88.8 Allergy status to other drugs, medicaments and biological substances; Z79.51 Long term (current) use of inhaled steroids; Z79.4 Long term (current) use of insulin; Z79.01 Long term (current) use of anticoagulants; Z87.891 Personal history of nicotine dependence; Z80.51 Family history of malignant neoplasm of kidney
CPT/HCPCS: 36415; 74176; 80048; 81000; 85025; 87077; 87088; 87186

== ENCOUNTER → 2020-01-25 | Outpatient (CLI) | payer MEDICARE, MEDICAID ==
--- NOTE | 2020-01-25 16:03 | Diagnostic Imaging Report ---
PROCEDURE: US Non-ob pelvis comp/trans. TECHNIQUE: Multiple realtime grayscale images were obtained of the pelvis in various projections endovaginally. Transabdominal imaging was also performed. INDICATION: Pelvic pain. FINDINGS: There are no prior bladder ultrasound examinations available for comparison. The CT abdomen/pelvis exam of 01/22/2020 failed to show any abnormality of the bladder. By history, the patient has had a prior hysterectomy and bilateral oophorectomy. On this study, the bladder is partially distended by urine. There is no obvious bladder mass evident. The prevoid bladder volume was 373.4 mL. Following voiding, there is only 10.5 mL of urine within the bladder. Neither ureteral jet was visualized. IMPRESSION: 1. There is no obvious bladder mass. 2. There was good clearing of the urine from the bladder. Dictated by: Dictated on workstation # [id number]
== END ==
LOC: RAD 12:48
PROVIDERS: ATTEND Nurse Practitioner Family
DX: R10.2 Pelvic and perineal pain (principal)
CPT/HCPCS: 76830; 76856

== ENCOUNTER 2020-02-01 10:50 | Outpatient (RCR) | payer MEDICARE, MEDICAID ==
[2020-01-13 12:36] VITALS: BP 141/78
[2020-01-13] MEDS: cefTRIAXone 1,000 MG/SWFI 10 ML IV PUSH IV SCH ×2 (13:10)
[2020-01-14] MEDS: cefTRIAXone 1,000 MG/SWFI 10 ML IV PUSH IV SCH ×2 (09:18)
[2020-01-14 09:22] VITALS: BP 158/80
[2020-01-15] MEDS: cefTRIAXone 1,000 MG/SWFI 10 ML IV PUSH IV SCH ×2 (10:10)
[2020-01-15 10:24] VITALS: BP 143/97
[2020-01-16] MEDS: cefTRIAXone 1,000 MG/SWFI 10 ML IV PUSH IV SCH ×2 (08:46)
[2020-01-16 08:55] VITALS: BP 136/73
[2020-01-17] MEDS: cefTRIAXone 1,000 MG/SWFI 10 ML IV PUSH IV SCH ×2 (08:50)
[2020-01-17 08:58] VITALS: BP 122/74
[2020-01-18] MEDS: cefTRIAXone 1,000 MG/SWFI 10 ML IV PUSH IV SCH ×2 (09:05)
[2020-01-18 09:42] VITALS: BP 136/92
[2020-01-19] MEDS: cefTRIAXone 1,000 MG/SWFI 10 ML IV PUSH IV SCH ×2 (09:02)
[2020-01-19 09:03] VITALS: BP 129/86
[2020-01-21 09:00] VITALS: BP 145/82
[2020-01-21] MEDS: cefTRIAXone 1,000 MG/SWFI 10 ML IV PUSH IV SCH ×4 (09:02→09:14)
[2020-01-22 09:20] VITALS: BP 129/83
[2020-01-22] MEDS: cefTRIAXone 1,000 MG/SWFI 10 ML IV PUSH IV SCH ×2 (09:25)
[2020-01-23] MEDS: cefTRIAXone 1,000 MG/SWFI 10 ML IV PUSH IV SCH ×2 (09:12)
[2020-01-23 09:15] VITALS: BP 125/90
[2020-01-24] MEDS: cefTRIAXone 1,000 MG/SWFI 10 ML IV PUSH IV SCH ×2 (09:41)
[2020-01-24 09:52] VITALS: BP 150/73
[2020-01-25] MEDS: cefTRIAXone 1,000 MG/SWFI 10 ML IV PUSH IV SCH ×2 (09:24)
[2020-01-25 09:34] VITALS: BP 137/78
[2020-01-26 08:54] VITALS: BP 0/0
[2020-01-26] MEDS: cefTRIAXone 1,000 MG/SWFI 10 ML IV PUSH IV SCH ×2 (09:02)
[2020-01-27 09:21] VITALS: BP 143/88
[2020-01-27] MEDS: cefTRIAXone 1,000 MG/SWFI 10 ML IV PUSH IV SCH ×2 (09:34)
[~2020-02-01] VITALS: Wt 133.8 kg
[2020-02-01 11:01] VITALS: BP 141/84
== END 2020-02-01 11:01 | disposition home or self-care (01) ==
LOC: SDC 10:50
PROVIDERS: ATTEND Nurse Practitioner Family
DX: N39.0 Urinary tract infection, site not specified (principal)
CPT/HCPCS: 76937; 96374

== ENCOUNTER 2020-02-04 10:50 | Outpatient (RCR) | payer MEDICARE, MEDICAID ==
[~2020-02-04 10:50] MED LIST changes: -SENN-141 PO; +SENN-234 PO
== END 2020-03-16 12:42 | disposition home or self-care (01) ==
PROVIDERS: ATTEND Nurse Practitioner Family
DX: M54.2 Cervicalgia (principal); I89.0 Lymphedema, not elsewhere classified; E11.40 Type 2 diabetes mellitus with diabetic neuropathy, unspecified; R32 Unspecified urinary incontinence; Z87.441 Personal history of nephrotic syndrome; Z86.718 Personal history of other venous thrombosis and embolism

== ENCOUNTER → 2020-05-03 | Outpatient (CLI) | payer MEDICARE, MEDICAID ==
[2020-05-03 10:23] LABS: BASOPHILS % (AUTO) 0 % (0-10); EOSINOPHILS # (AUTO) 0.2 10^3/uL (0.0-0.3); EOSINOPHILS % (AUTO) 2 % (0-10); HEMATOCRIT 40 % (35-52); HEMOGLOBIN 12.9 G/DL (11.5-16.0); LYMPHOCYTES # (AUTO) 1.5 X 10^3 (1.0-4.0); LYMPHOCYTES % (AUTO) 16 % (12-44); MEAN CORPUSCULAR HEMOGLOBIN 29 PG (25-34); MEAN CORPUSCULAR HGB CONC 32 G/DL (32-36); MEAN CORPUSCULAR VOLUME 91 FL (80-99); MONOCYTES # (AUTO) 0.5 X 10^3 (0.0-1.0); MONOCYTES % (AUTO) 6 % (0-12); NEUTROPHILS # (AUTO) 7.1 X 10^3 (1.8-7.8); NEUTROPHILS % (AUTO) 76 % (42-75); PLATELET COUNT 251 10^3/uL (130-400); RED CELL DISTRIBUTION WIDTH 16.9 % (10.0-14.5); WHITE BLOOD COUNT 9.4 10^3/uL (4.3-11.0)
[2020-05-03 10:39] LABS: ALBUMIN 3.3 GM/DL (3.2-4.5); BILIRUBIN,TOTAL 0.3 MG/DL (0.1-1.0); CALCIUM 8.9 MG/DL (8.5-10.1); CREATININE SERUM 0.92 MG/DL (0.60-1.30); TOTAL PROTEIN 7.7 GM/DL (6.4-8.2)
== END ==
LOC: EDSTATUS 08-04 15:18 → ONC 10:15
PROVIDERS: ATTEND Internal Medicine Hematology & Oncology
DX: I10 Essential (primary) hypertension (principal); E78.2 Mixed hyperlipidemia; Z85.3 Personal history of malignant neoplasm of breast
CPT/HCPCS: 80053; 85025; 99213

== ENCOUNTER 2020-05-12 15:07 | Emergency (ER) | payer MEDICARE, MEDICAID ==
[~2020-05-12] VITALS: Ht 175.2 cm; Wt 111.3 kg
[2020-05-12] MEDS ORDERED: meTOprolol 5 MG/5 ML (LOPRESSOR) VIAL IV ONE ×2 (15:30→17:00)
[2020-05-12 15:34] LABS: BILIRUBIN,URINE NEGATIVE (NEGATIVE); CLARITY,URINE SL CLOUDY; COLOR,URINE YELLOW; GLUCOSE, URINE (UA) NEGATIVE (NEGATIVE); KETONES,URINE NEGATIVE (NEGATIVE); LEUKOCYTE ESTERASE ,URINE NEGATIVE (NEGATIVE); NITRITE,URINE NEGATIVE (NEGATIVE); PROTEIN,URINE 2+ (NEGATIVE)
[2020-05-12 15:36] LABS: BASOPHILS # (AUTO) 0.1 10^3/uL (0.0-0.1); BASOPHILS % (AUTO) 0 % (0-10); EOSINOPHILS # (AUTO) 0.1 10^3/uL (0.0-0.3); EOSINOPHILS % (AUTO) 1 % (0-10); HEMATOCRIT 41 % (35-52); HEMOGLOBIN 13.1 G/DL (11.5-16.0); LYMPHOCYTES # (AUTO) 1.4 X 10^3 (1.0-4.0); LYMPHOCYTES % (AUTO) 10 % (12-44); MEAN CORPUSCULAR HEMOGLOBIN 30 PG (25-34); MEAN CORPUSCULAR HGB CONC 32 G/DL (32-36); MEAN CORPUSCULAR VOLUME 92 FL (80-99); MEAN PLATELET VOLUME 11.7 FL (7.4-10.4); MONOCYTES # (AUTO) 0.4 X 10^3 (0.0-1.0); MONOCYTES % (AUTO) 3 % (0-12); NEUTROPHILS # (AUTO) 12.4 X 10^3 (1.8-7.8); NEUTROPHILS % (AUTO) 86 % (42-75); PLATELET COUNT 269 10^3/uL (130-400); RED CELL DISTRIBUTION WIDTH 16.6 % (10.0-14.5); WHITE BLOOD COUNT 14.3 10^3/uL (4.3-11.0)
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
[2020-05-12] MEDS ORDERED: cloNIDine 0.1 MG (CATAPRES) TAB PO ONE (15:45)
[2020-05-12 15:49] LABS: ALBUMIN 3.4 GM/DL (3.2-4.5); CHLORIDE 101 MMOL/L (98-107); POTASSIUM 4.4 MMOL/L (3.6-5.0); SODIUM 141 MMOL/L (135-145)
[2020-05-12 15:50] LABS: CALCIUM 9.6 MG/DL (8.5-10.1)
[2020-05-12 15:51] LABS: GLUCOSE 82 MG/DL (70-105); TOTAL PROTEIN 8.4 GM/DL (6.4-8.2)
[2020-05-12 15:52] LABS: CARBON DIOXIDE 29 MMOL/L (21-32)
[2020-05-12 15:53] LABS: BILIRUBIN,TOTAL 0.3 MG/DL (0.1-1.0)
[2020-05-12 15:55] LABS: ALKALINE PHOSPHATASE 57 U/L (40-136); CREATININE SERUM 0.84 MG/DL (0.60-1.30); GFR ESTIMATED > 60
[2020-05-12 15:56] LABS: BUN/CREATININE RATIO 18
[2020-05-12 15:58] LABS: ALANINE AMINOTRANSFERASE 13 U/L (0-55)
[2020-05-12 16:06] LABS: BACTERIA,URINE TRACE /HPF; RBC,URINE RARE /HPF
[2020-05-12 16:16] LABS: INR 1.3 (0.8-1.4); PROTHROMBIN TIME PATIENT 16.6 SEC (12.2-14.7)
[2020-05-12 16:20] LABS: BAND NEUTROPHILS 6 %; LYMPHOCYTES % (MANUAL) 12 %; MONOCYTES % (MANUAL) 3 %; NEUTROPHILS % (MANUAL) 79 %; RBC MORPH NORMAL
--- NOTE | 2020-05-12 16:30 | Diagnostic Imaging Report ---
INDICATION: Altered mental status. EXAMINATION: Portable chest at 04:23 p.m. FINDINGS: Heart size and pulmonary vascularity are normal. Lungs are clear. There are no effusions or pneumothoraces. IMPRESSION: No acute abnormalities in the chest. Dictated by: Dictated on workstation # [id number]
[2020-05-12] MEDS ORDERED: amLODIPine 5 MG (NORVASC) TAB PO ONE (16:45)
--- NOTE | 2020-05-12 17:08 | NUR ---
Two cross necklaces placed in bio bag and pt sticker placed on bag. Pt in possession of bag at this time.
[2020-05-12 17:12] LABS: ABG BASE EXCESS 8.5 MMOL/L (-2.5-2.5); ABG OXYGEN SATURATION 92 % (94-100); ABG PCO2 55 MMHG (35-45); ABG PO2 68 MMHG (79-93); ABG TCO2 35.2 MMOL/L (21.0-31.0)
[2020-05-12 17:13] LABS: ALLENS TEST POS; INSPIRED O2 ROOM AIR; PATIENT TEMP 98.3; VENTILATOR NO
--- NOTE | 2020-05-12 17:27 | Diagnostic Imaging Report ---
PROCEDURE: CT head without contrast. TECHNIQUE: Multiple contiguous axial images were obtained through the brain without the use of intravenous contrast. Auto Exposure Controls were utilized during the CT exam to meet ALARA standards for radiation dose reduction. INDICATION: Altered mental status. FINDINGS: There is generalized atrophy. There are no masses or hemorrhages. There are no extra-axial fluid collections. IMPRESSION: Diffuse cerebral degeneration. No acute abnormalities seen. Dictated by: Dictated on workstation # [id number]
[2020-05-12 17:52] VITALS: BP 160/105
--- NOTE | 2020-05-12 18:18 | NUR ---
ASSIST TO W/C WITHOUT PROBLEM [facility] REMOVED APX 1500 CC URINE RETURND TO [facility] BAG.
[2020-05-13] MEDS ORDERED: CEPH-507 PO (08:59)
== END 2020-05-12 18:00 | disposition home or self-care (01) ==
LOC: EDUNIT# 15:07 → ER 15:08
DX: I16.1 Hypertensive emergency (principal); R53.1 Weakness; J44.9 Chronic obstructive pulmonary disease, unspecified; I27.20 Pulmonary hypertension, unspecified; I10 Essential (primary) hypertension; E78.00 Pure hypercholesterolemia, unspecified; I25.2 Old myocardial infarction; I25.10 Atherosclerotic heart disease of native coronary artery without angina pectoris; I48.91 Unspecified atrial fibrillation; F03.90 Unspecified dementia, unspecified severity, without behavioral disturbance, psychotic disturbance, mood disturbance, and anxiety; K21.9 Gastro-esophageal reflux disease without esophagitis; E11.9 Type 2 diabetes mellitus without complications; F31.9 Bipolar disorder, unspecified; F41.9 Anxiety disorder, unspecified; Z88.0 Allergy status to penicillin; Z88.5 Allergy status to narcotic agent; Z88.2 Allergy status to sulfonamides; Z88.8 Allergy status to other drugs, medicaments and biological substances; Z79.4 Long term (current) use of insulin; Z87.891 Personal history of nicotine dependence; Z90.710 Acquired absence of both cervix and uterus; Z86.711 Personal history of pulmonary embolism; Z85.3 Personal history of malignant neoplasm of breast; Z85.528 Personal history of other malignant neoplasm of kidney; Z79.51 Long term (current) use of inhaled steroids
CPT/HCPCS: 36415; 51702; 70450; 71045; 80053; 81000; 82805; 83880; 85007; 85027; 85610; 93005

== ENCOUNTER 2020-05-13 07:51 | Emergency (ER) | payer MEDICARE, MEDICAID ==
[~2020-05-13] VITALS: Ht 175 cm; Wt 99.7 kg
[2020-05-13 08:06] LABS: BASOPHILS % (AUTO) 0 % (0-10); EOSINOPHILS # (AUTO) 0.2 10^3/uL (0.0-0.3); EOSINOPHILS % (AUTO) 2 % (0-10); HEMATOCRIT 40 % (35-52); HEMOGLOBIN 12.6 G/DL (11.5-16.0); LYMPHOCYTES % (AUTO) 18 % (12-44); MEAN CORPUSCULAR HEMOGLOBIN 30 PG (25-34); MEAN CORPUSCULAR HGB CONC 32 G/DL (32-36); MEAN CORPUSCULAR VOLUME 93 FL (80-99); MEAN PLATELET VOLUME 11.6 FL (7.4-10.4); MONOCYTES # (AUTO) 0.7 X 10^3 (0.0-1.0); MONOCYTES % (AUTO) 6 % (0-12); NEUTROPHILS % (AUTO) 74 % (42-75); PLATELET COUNT 258 10^3/uL (130-400); RED CELL DISTRIBUTION WIDTH 16.7 % (10.0-14.5); WHITE BLOOD COUNT 10.8 10^3/uL (4.3-11.0)
--- OUTSIDE RECORDS SUMMARY | 2020-05-13 08:06 | XMS REPORT | Clinical Summary ---
Author Author [facility] Organization [facility] Address Unknown Phone Unavailable Care Team Providers Care Financial Cost Analyst Name Role Phone Darien Salguero MD Unavailable Source Comments Some departments are not documenting in the electronic medical record. If you d o not see the information that you expected, contact Release of Information in [facility] [employer] Information Management department at [phone] for further assistan ce in locating additional records.[facility] Allergies Comments Active Allergy Reactions Severity Noted [...] Overview: Patient with new diagnosis of renal ang iomyolipoma of right kidney. She had CT scans on 09/05 and 01/07 for non- specific right lower quadrant abdominal pain. The first CT in 09/05 did not mention AML of right kidney, but it appears that they were present o n review. CT in December mentioned AML. Referred here by Dr. Luz for further evaluation. Both CT scans were non-contrast (stone protocol). L ast Assessment & Plan: Patient with 2 small AMLs of right kidn ey. Not likely source of her right lower quadrant discomfort (which appear s either more musculoskeletal or GI in nature). I do recommend a renal ult rasound to ensure no other masses not fully evaluated on non-contrast CT scan. She would prefer to get closer to home. Given small size of an giomyolipomas and no evidence of bleeding, she does not require any inte rvention for those at this time. -- Renal ultrasound in 2-3 months to en sure stability of AMLs and evaluate for any additional lesions/masses. Pat ient will get done locally and send me results. -- F/U with Dr. Sethi in [place] for further urological issues (already has an appointment with him) -- Patient to call with any questions -- Warnings given to patient who expres sed understanding. Chronic right flank pain 02/05/2013 Overview: Patient with right lower quadrant/flank pain for several months. Usually dull at best, but occasionally sharp. Has history of kidney stones, but none on recent imaging. Patient on oxy codone for pain. L ast Assessment & Plan: Kidney lesions not likely source of ninfa n. Patient is also taking oxycodone ever 6 hours since that is the way it w as prescribed. -- I have recommended that she taper of f the oxycodone and start on plain tylenol since it does not appear her pa in is bad enough to require narcotics -- Continue to monitor discomfort -- Stay on current bowel regimen Family History Medical History Relation Name Comments Cancer Other Diabetes Other Hypertension Other Relation Name Status Comments Other Social History Date Tobacco Use Types Packs/Day Years Used Former Smoker Smokeless Tobacco: Never Used Drinks/Week oz/Week Comments Alcohol Use No Sex Assigned at Date Recorded Not on file Industry Job Start Date Occupation Not on file Not on file Not on file Travel End Travel History Travel Start No recent travel history available. Last Filed Vital Signs Reading Time Taken Comments Vital Sign 155/72 02/05/2013 1:30 PM CDT Blood Pressure 89 02/05/2013 1:30 PM CDT Pulse - - Temperature - - Respiratory Rate - - Oxygen Saturation - - Inhaled Oxygen Concentration 107 kg (236 lb) 02/05/2013 1:30 PM CDT Weight 172.7 cm (5' 8") 02/05/2013 1:30 PM CDT Height 35.88 02/05/2013 1:30 PM CDT Body Mass Index Plan of Treatment Health Maintenance Due Date Last Done Comments DTAP/TDAP VACCINES (1 - 1962 Tdap) HEPATITIS C SCREENING 1962 PHYSICAL (COMPREHENSIVE) 1962 EXAM COLORECTAL CANCER 1994 SCREENING SHINGLES RECOMBINANT 1994 VACCINE (1 of 2) OSTEOPOROSIS 2009 SCREENING/MONITORING PNEUMONIA (PPSV23) 2009 VACCINE (1 of 1 - PPSV23) INFLUENZA VACCINE 08/25/2020 Results Not on filefrom Last 3 Months
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
[2020-05-13 08:09] LABS: BILIRUBIN,URINE NEGATIVE (NEGATIVE); CLARITY,URINE CLEAR; COLOR,URINE YELLOW; GLUCOSE, URINE (UA) NEGATIVE (NEGATIVE); KETONES,URINE NEGATIVE (NEGATIVE); LEUKOCYTE ESTERASE ,URINE 1+ (NEGATIVE); NITRITE,URINE NEGATIVE (NEGATIVE); PH,URINE 6.5 (5-9); PROTEIN,URINE 3+ (NEGATIVE)
--- OUTSIDE RECORDS SUMMARY | 2020-05-13 08:14 | XMS REPORT | Continuity of Care Document ---
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 OBSTRUCTIVE SLEEP APNEA (ADULT) (PEDIATR 09/15/2015 VENUS PARTIDA MD E Ot H91.1 0 PRESBYCUSIS, UNSPECIFIED EAR 09/15/2015 VENUS PARTIDA MD E Ot I10 ESSENTIAL (PRIMARY) HYPERTENSION 09/15/2015 VENUS PARTIDA MD E Ot I27.2 OTHER SECONDARY PULMONARY HYPERTENSION 09/15/2015 VENUS PARTIDA MD E Ot I48.9 1 UNSPECIFIED ATRIAL FIBRILLATION 09/15/2015 VENUS PARTIDA MD E Ot J44.9 CHRONIC OBSTRUCTIVE PULMONARY DISEASE, U 09/15/2015 VENUS PARTIDA MD E Ot K59.0 0 CONSTIPATION, UNSPECIFIED 09/15/2015 VENUS PARTIDA MD E Ot Q21.1 ATRIAL SEPTAL DEFECT 09/15/2015 VENUS PARTIDA MD E Ot R50.9 FEVER, UNSPECIFIED 09/15/2015 DASH PARTIDA MDIC E Ot S72.141D DISPL INTERTROCH FX R FEMUR, SUBS FOR CL 09/15/2015 VENUS PARTIDA MD E Ot S72.21XD DISPL SUBTROCHNT FX R FEMUR, SUBS FOR CL 09/15/2015 VENUS PARTIDA MD E Ot T84.328A DISPLACEMENT OF OTH BONE DEVICES, IMPLAN 09/15/2015 VENUS PARTIDA MD E Ot W19.XXXD UNSPECIFIED FALL, SUBSEQUENT ENCOUNTER 09/15/2015 VENUS PARTIDA MD Ot Z68.4 1 BODY MASS INDEX (BMI) 40.0-44.9, ADULT 09/23/2015 MEGHA MATIAS MD Ot D62 ACUTE POSTHEMORRHAGIC ANEMIA 09/23/2015 MEGHA MATIAS MD Ot D72.82 9 ELEVATED WHITE BLOOD CELL COUNT, UNSPECI 09/23/2015 MEGHA MATIAS MD Ot E11.9 TYPE 2 DIABETES MELLITUS [...] SEPTAL DEFECT 09/23/2015 MEGHA MATIAS MD, Ot S84.11 XS INJ PERONEAL NRV AT LOWER LEG LEVEL, RIG 09/23/2015 MEGHA MATIAS MD, Ot T84.11 4A BREAKDOWN (MECHANICAL) OF INT FIX OF RIG 09/23/2015 MEGHA MATIAS MD, Ot Z68.41 BODY MASS INDEX (BMI) 40.0-44.9, ADULT 09/23/2015 MEGHA MATIAS MD, Ot Z79.01 ENVIRONMENTAL DIRECTOR (CURRENT) USE OF ANTICOAGULANT 09/23/2015 MEGHA MATIAS MD, Ot Z79.4 [facility] (CURRENT) USE OF INSULIN 10/19/2015 MEGHA PANDA MD, Ot B95.6 2 METHICILLIN RESIS STAPH INFCT CAUSING DI 10/19/2015 MEGHA PANDA MD, Ot D64.9 ANEMIA, UNSPECIFIED 10/19/2015 MEGHA PANDA MD, Ot E11.9 TYPE 2 DIABETES MELLITUS WITHOUT COMPLIC 10/19/2015 MEGHA PANDA MD, Ot E66.0 1 MORBID (SEVERE) OBESITY DUE TO EXCESS CA 10/19/2015 MEGHA PANDA MD, Ot E78.5 HYPERLIPIDEMIA, UNSPECIFIED 10/19/2015 MEGHA PANDA MD, Ot E83.4 2 HYPOMAGNESEMIA 10/19/2015 MEGHA PANDA MD, Ot E87.6 HYPOKALEMIA 10/19/2015 MEGHA PANDA MD, Ot F31.9 BIPOLAR DISORDER, UNSPECIFIED 10/19/2015 MEGHA PANDA MD, Ot F41.9 ANXIETY DISORDER, UNSPECIFIED 10/19/2015 MEGHA PANDA MD, Ot G47.3 3 OBSTRUCTIVE SLEEP APNEA (ADULT) (PEDIATR 10/19/2015 MEGHA PANDA MD, Ot G57.3 1 LESION OF LATERAL POPLITEAL NERVE, RIGHT 10/19/2015 MEGHA PANDA MD, Ot H81.0 9 MENIERE'S DISEASE, UNSPECIFIED EAR 10/19/2015 MEGHA PANDA MD, Ot I10 ESSENTIAL (PRIMARY) HYPERTENSION 10/19/2015 MEGHA PANDA MD, Ot I27.2 OTHER SECONDARY PULMONARY HYPERTENSION 10/19/2015 MEGHA PANDA MD, Ot I48.9 1 UNSPECIFIED ATRIAL FIBRILLATION 10/19/2015 MEGHA PANDA MD, Ot J44.9 CHRONIC OBSTRUCTIVE PULMONARY DISEASE, U 10/19/2015 MEGHA PANDA MD, Ot L03.1 15 CELLULITIS OF RIGHT LOWER LIMB 10/19/2015 MEGHA PANDA MD, Ot L29.9 PRURITUS, UNSPECIFIED 10/19/2015 MEGHA PANDA MD, Ot Q21.1 ATRIAL SEPTAL DEFECT 10/19/2015 MEGHA PANDA MD, Ot T81.4XXA INFECTION FOLLOWING A PROCEDURE, INITIAL 10/19/2015 MEGHA PANDA MD, Ot T88.8XXA OTH COMPLICATIONS OF SURGICAL AND MEDICA 10/19/2015 MEGHA PANDA MD, Ot Z68.3 8 BODY MASS INDEX (BMI) 38.0-38.9, ADULT 10/19/2015 MEGHA PANDA MD, Ot Z79.4 [facility] (CURRENT) USE OF INSULIN 12/06/2015 MEGHA PANDA MD, Ot L03.9 0 12/06/2015 MEGHA PANDA MD, Ot Z51.8 1 12/06/2015 MEGHA PANDA MD, Ot Z79.2 01/02/2016 MEGHA PANDA MD, Ot L03.9 0 01/02/2016 MEGHA PANDA MD, Ot Z51.8 1 01/02/2016 MEGHA PANDA MD, Ot Z79.2 02/02/2016 SANGEETA MARSHALL MD Ot B96.20 UNSP ESCHERICHIA COLI THE CAUSE OF DI 02/02/2016 SANGEETA MARSHALL MD Ot E11.649 TYPE 2 DIABETES MELLITUS WITH HYPOGLYCEM 02/02/2016 SANGEETA MARSHALL MD, Ot G93.40 ENCEPHALOPATHY, UNSPECIFIED 02/02/2016 SANGEETA MARSHALL MD Ot I10 ESSENTIAL (PRIMARY) HYPERTENSION 02/02/2016 SANGEETA MARSHALL MD, Ot I27 .2 OTHER SECONDARY PULMONARY HYPERTENSION 02/02/2016 SANGEETA MARSHALL MD, Ot I48.91 UNSPECIFIED ATRIAL FIBRILLATION 02/02/2016 SANGEETA MARSHALL MD Ot J44 .9 CHRONIC OBSTRUCTIVE PULMONARY DISEASE, U 02/02/2016 SANGEETA MARSHALL MD Ot N39 .0 URINARY TRACT INFECTION, SITE NOT SPECIF 02/02/2016 SANGEETA MARSHALL MD Ot Z79 .4 [facility] (CURRENT) USE OF INSULIN 02/17/2016 TEDDY CHAUHAN DANY Short Ot E03.9 02/17/2016 TEDDY CHAUHAN DANY Short Ot I48.2 02/17/2016 ESPINAL DO DANY Short Ot N39.0 02/22/2016 TEDDY AGATHA [place] [facility] DIRECTOR Ot N39.0 03/01/2016 TEDDY AGATHA [place] [facility] DIRECTOR Ot N39.0 03/06/2016 ESPINAL DO DANY Short Ot N39.0 03/07/2016 ESPINAL DO DANY Short Ot E03.9 03/07/2016 TEDDY CHAUHAN DANY Short Ot I48.2 03/07/2016 TEDDY CHAUHAN DANY Short Ot N39.0 03/08/2016 SARAH , NELLY K Ot I51.7 CARDIOMEGALY 03/08/2016 SARAH , NELLY K Ot N39.0 URINARY TRACT INFECTION, SITE NOT SPECIF 03/08/2016 SARAH NELLY K Ot R09.89 OTH SYMPTOMS AND SIGNS INVOLVING THE CIR 03/09/2016 SARAH NELLY K Ot I51.7 CARDIOMEGALY 03/09/2016 SARAH , NELLY K Ot N39.0 URINARY TRACT INFECTION, SITE NOT SPECIF 03/09/2016 SARAH , NELLY K Ot R09.89 OTH SYMPTOMS AND SIGNS INVOLVING THE CIR 03/12/2016 JOSE ELIAS NG DO Ot A41.51 SEPSIS DUE TO ESCHERICHIA COLI [E. COLI] 03/12/2016 JOSE ELIAS NG DO Ot E11.64 9 TYPE 2 DIABETES MELLITUS WITH HYPOGLYCEM 03/12/2016 JOSE ELIAS NG DO Ot E66.9 OBESITY, UNSPECIFIED 03/12/2016 JOSE ELIAS NG DO Ot E78.5 HYPERLIPIDEMIA, UNSPECIFIED 03/12/2016 JOSE ELIAS NG DO Ot F31.9 BIPOLAR DISORDER, UNSPECIFIED 03/12/2016 NG DO, JOSE ELIAS Ot F32.9 MAJOR DEPRESSIVE DISORDER, SINGLE EPISOD 03/12/2016 NG DO, JOSE ELIAS Ot F41.9 ANXIETY DISORDER, UNSPECIFIED 03/12/2016 NG DO, JOSE ELIAS Ot G47.30 SLEEP APNEA, UNSPECIFIED 03/12/2016 NG DO, JOSE ELIAS Ot G93.41 METABOLIC ENCEPHALOPATHY 03/12/2016 NG DO, JOSE ELIAS Ot I10 ESSENTIAL (PRIMARY) HYPERTENSION 03/12/2016 NG DO, JOSE ELIAS Ot I27.2 OTHER SECONDARY PULMONARY HYPERTENSION 03/12/2016 NG DO, JOSE ELIAS Ot I48.0 PAROXYSMAL ATRIAL FIBRILLATION 03/12/2016 NG DO, JOSE ELIAS Ot I48.1 PERSISTENT ATRIAL FIBRILLATION 03/12/2016 NG DO, JOSE ELIAS Ot I82.50 3 CHRONIC EMBLSM AND THOMBOS UNSP DEEP VEI 03/12/2016 NG DO JOSE ELIAS Ot J44.9 CHRONIC OBSTRUCTIVE PULMONARY DISEASE, U 03/12/2016 NG DO JOSE ELIAS Ot K59.00 CONSTIPATION, UNSPECIFIED 03/12/2016 NG DO JOSE ELIAS Ot N39.0 URINARY TRACT INFECTION, SITE NOT SPECIF 03/12/2016 NG DO JOSE ELIAS Ot Z66 DO NOT RESUSCITATE 03/12/2016 NG DO, JOSE ELIAS Ot Z68.33 BODY MASS INDEX (BMI) 33.0-33.9, ADULT 03/12/2016 NG DO, JOSE ELIAS Ot Z99.81 DEPENDENCE ON SUPPLEMENTAL OXYGEN 03/14/2016 DANY ESPINAL DO Ot E03.9 HYPOTHYROIDISM, UNSPECIFIED 03/14/2016 DANY ESPINAL DO Ot I48.2 CHRONIC ATRIAL FIBRILLATION 03/14/2016 DANY ESPINAL DO Ot N39.0 URINARY TRACT INFECTION, SITE NOT SPECIF 03/21/2016 SANGEETA MARSHALL MD Ot D72.829 ELEVATED WHITE BLOOD CELL COUNT, UNSPECI 03/21/2016 SANGEETA MARSHALL MD Ot E11 .9 TYPE 2 DIABETES MELLITUS WITHOUT COMPLIC 03/21/2016 SANGEETA MARSHALL MD Ot E78 .0 PURE HYPERCHOLESTEROLEMIA 03/21/2016 SANGEETA MARSHALL MD Ot F32 .9 MAJOR DEPRESSIVE DISORDER, SINGLE EPISOD 03/21/2016 SANGEETA MARSHALL MD Ot F41 .9 ANXIETY DISORDER, UNSPECIFIED 03/21/2016 SANGEETA MARSHALL MD, Ot G47.30 SLEEP APNEA, UNSPECIFIED 03/21/2016 SANGEETA MARSHALL MD Ot I10 ESSENTIAL (PRIMARY) HYPERTENSION 03/21/2016 SANGEETA MARSHALL MD, Ot I27 .2 OTHER SECONDARY PULMONARY HYPERTENSION 03/21/2016 SANGEETA MARSHALL MD Ot I48.91 UNSPECIFIED ATRIAL FIBRILLATION 03/21/2016 SANGEETA MARSHALL MD Ot J44 .9 CHRONIC OBSTRUCTIVE PULMONARY DISEASE, U 03/21/2016 SANGEETA MARSHALL MD Ot M21.371 FOOT DROP, RIGHT FOOT 03/21/2016 SANGEETA MARSHALL MD, Ot M54.10 RADICULOPATHY, SITE UNSPECIFIED 03/21/2016 SANGEETA MARSHALL MD, Ot R41 .0 DISORIENTATION, UNSPECIFIED 03/21/2016 SANGEETA MARSHALL MD, Ot R44 .3 HALLUCINATIONS, UNSPECIFIED 03/21/2016 SANGEETA MARSHALL MD Ot R50 .9 FEVER, UNSPECIFIED 03/21/2016 SANGEETA MARSHALL MD Ot Z79.01 [facility] (CURRENT) USE OF ANTICOAGULANT 03/21/2016 SANGEETA MARSHALL MD Ot Z79 .4 ENVIRONMENTAL DIRECTOR (CURRENT) USE OF INSULIN 03/21/2016 SANGEETA MARSHALL MD Ot Z86.711 PERSONAL HISTORY OF PULMONARY EMBOLISM 03/21/2016 SANGEETA MARSHALL MD, Ot Z86.718 PERSONAL HISTORY OF OTHER VENOUS THROMBO 03/22/2016 DANY ESPINAL DO Ot N39.0 URINARY TRACT INFECTION, SITE NOT SPECIF 03/22/2016 SANGEETA MARSHALL MD, Ot D72.829 ELEVATED WHITE BLOOD CELL COUNT, UNSPECI 03/22/2016 SANGEETA MARSHALL MD Ot E11 .9 TYPE 2 DIABETES MELLITUS WITHOUT COMPLIC 03/22/2016 SANGEETA MARSHALL MD Ot E78 .0 PURE HYPERCHOLESTEROLEMIA 03/22/2016 SANGEETA MARSHALL MD Ot E87 .6 HYPOKALEMIA 03/22/2016 SANGEETA MARSHALL MD Ot F32 .9 MAJOR DEPRESSIVE DISORDER, SINGLE EPISOD 03/22/2016 SANGEETA MARSHALL MD Ot F41 .9 ANXIETY DISORDER, UNSPECIFIED 03/22/2016 SANGEETA MARSHALL MD Ot G47.30 SLEEP APNEA, UNSPECIFIED 03/22/2016 SANGEETA MARSHALL MD Ot I10 ESSENTIAL (PRIMARY) HYPERTENSION 03/22/2016 SANGEETA MARSHALL MD Ot I27 .2 OTHER SECONDARY PULMONARY HYPERTENSION 03/22/2016 SANGEETA MARSHALL MD Ot I48.91 UNSPECIFIED ATRIAL FIBRILLATION 03/22/2016 SANGEETA MARSHALL MD Ot J44 .9 CHRONIC OBSTRUCTIVE PULMONARY DISEASE, U 03/22/2016 SANGEETA MARSHALL MD Ot K59.00 CONSTIPATION, UNSPECIFIED 03/22/2016 SANGEETA MARSHALL MD Ot M21.371 FOOT DROP, RIGHT FOOT 03/22/2016 SANGEETA MARSHALL MD Ot M54.10 RADICULOPATHY, SITE UNSPECIFIED 03/22/2016 SANGEETA MARSHALL MD Ot R41 .0 DISORIENTATION, UNSPECIFIED 03/22/2016 SANGEETA MARSHALL MD Ot R44 .3 HALLUCINATIONS, UNSPECIFIED 03/22/2016 SANGEETA MARSHALL MD Ot R50 .9 FEVER, UNSPECIFIED 03/22/2016 SANGEETA MARSHALL MD Ot R53 .2 FUNCTIONAL QUADRIPLEGIA 03/22/2016 SANGEETA MARSHALL MD Ot Z79.01 [facility] (CURRENT) USE OF ANTICOAGULANT 03/22/2016 SANGEETA MARSHALL MD Ot Z79 .4 ENVIRONMENTAL DIRECTOR (CURRENT) USE OF INSULIN 03/22/2016 SANGEETA MARSHALL [...] TRACT INFECTION, SITE NOT SPECIF 03/28/2016 NELLY SMIHT DO Ot R09.89 [facility] SYMPTOMS AND SIGNS INVOLVING THE CIR 04/04/2016 DANY ESPINAL DO Ot N39.0 URINARY TRACT INFECTION, SITE NOT SPECIF 04/18/2016 Ot 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 04/18/2016 Ot N28.1 CYST OF KIDNEY, ACQUIRED 04/19/2016 Ot 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 04/19/2016 Ot N28.1 CYST OF KIDNEY, ACQUIRED 04/26/2016 Ot 354.9 MONO NEURITIS ARM NOS 04/26/2016 Ot 416.2 PATCH SETTER EDVIN PULMONARY EMBOLISM 04/26/2016 Ot 453.50 CHR ONIC VENOUS EMBOLISM THROMBOSIS UNS 04/26/2016 Ot V10.3 HX O F BREAST MALIGNANCY 04/26/2016 Ot V45.71 ACQ UIRED ABSENCE OF BREAST AND NIPPLE 04/26/2016 Ot V58.61 ANTICOAGULANTS,LT,CURRENT USE 04/26/2016 Ot V58.67 WILMER G-TERM (CURRENT) USE OF INSULIN 04/26/2016 Ot V58.69 OTH MED,LT,CURRENT USE 04/26/2016 Ot V67.2 CHEM OTHERAPY FOLLOW-UP 04/26/2016 Ot 174.9 ANNA MARIE GN NEOPL BREAST NOS 04/26/2016 Ot 397.0 TRIC USPID VALVE DISEASE 04/26/2016 Ot 401.9 HYPE RTENSION NOS 04/26/2016 Ot 416.8 CHR PULMON HEART DIS NEC 04/26/2016 Ot 424.0 MITR AL VALVE DISORDER 04/26/2016 Ot 429.3 CARD IOMEGALY 04/26/2016 Ot 722.4 CERV ICAL DISC DEGEN 04/26/2016 Ot 250.00 LYN B TJ WO COMPL, TYPE II OR UNSPEC TY 04/26/2016 Ot 272.4 HYPE RLIPIDEMIA NEC/NOS 04/26/2016 Ot 401.9 HYPE RTENSION NOS 04/26/2016 Ot 429.3 CARD IOMEGALY 04/26/2016 Ot 786.09 RES PIRATORY ABNORM NEC 04/26/2016 Ot 354.0 CARP AL TUNNEL SYNDROME 04/26/2016 Ot V72.83 EXA M PRE- OPERATIVE NEC 04/26/2016 Ot V74.8 SCRE EN-BACTERIAL DIS NEC 04/26/2016 Ot 250.00 LYN B TJ WO COMPL, TYPE II OR UNSPEC TY 04/26/2016 Ot 401.9 HYPE RTENSION NOS 04/26/2016 Ot 562.10 DIV ERTICULOSIS COLON (W/O MENT OF HEMORR 04/26/2016 Ot 569.89 INT ESTINAL DISORDERS NEC 04/26/2016 Ot V10.3 HX O F BREAST MALIGNANCY 04/26/2016 Ot V58.61 ANTICOAGULANTS,LT,CURRENT USE 04/26/2016 Ot V58.69 OTH MED,LT,CURRENT USE 04/26/2016 Ot V76.51 SCR EEN MAL NEOP- COLON 04/26/2016 Ot 562.10 DIV ERTICULOSIS COLON (W/O MENT OF HEMORR 04/26/2016 Ot 174.9 ANNA MARIE GN NEOPL BREAST NOS 04/26/2016 Ot 174.9 ANNA MARIE GN NEOPL BREAST NOS 04/26/2016 Ot V76.11 SCR N MAMMO-HIGH RISK PT, MALIGNANT NEOPL 04/26/2016 Ot 174.9 ANNA MARIE GN NEOPL BREAST NOS 04/26/2016 Ot 793.81 BOO MOGRAPHIC MICROCLACIFICATION 04/26/2016 Ot 793.81 BOO MOGRAPHIC MICROCLACIFICATION 04/26/2016 Ot V64.3 NO P ANUSHA FOR REASONS NEC 04/26/2016 Ot 611.72 LUM P OR MASS IN BREAST 04/26/2016 Ot V72.83 EXA M PRE- OPERATIVE NEC 04/26/2016 Ot V74.8 SCRE EN-BACTERIAL DIS NEC 04/26/2016 Ot 611.89 OTH ER SPECIFIED DISORDERS OF BREAST 04/26/2016 Ot V67.09 PATRICK CORNELIO FOLLOW- UP, OTHER SURGERY 04/26/2016 FARZAD MOULTON, MEGHA Ku Ot 786.2 COUGH 04/26/2016 Ot 729.5 PAIN IN LIMB 04/26/2016 Ot V12.51 HX- VENOUS THROMBOSIS EMBOLISM 04/26/2016 FAITH TURK Ot 174.9 MALIGN NEOPL BREAST NOS 04/26/2016 MEGHA PANDA MD Ot 453.4 0 ACUTE VENOUS EMBOLISM THROMBOSIS UNSP 04/26/2016 FAITH TURK Ot V10.3 HX OF BREAST MALIGNANCY 04/26/2016 FAITH TURK Ot V67.9 FOLLOW-UP EXAM NOS 04/26/2016 ERVIN OSBORNE MD Ot 593.9 RENAL URETERAL DIS NOS 04/26/2016 ERVIN OSBORNE MD Ot 753.1 0 CYSTIC KIDNEY DISEASE, UNSPECIFIED 04/26/2016 JOSELUIS BORGES [facility] HEALTH DIRECTOR Ot 174.9 MALIGN NEOPL BREAST NOS 04/26/2016 JOSELUIS BORGES COMMUNITY HEALTH DIRECTOR Ot V67.9 FOLLOW-UP EXAM NOS 04/26/2016 INDIA MOULTON, ERVIN Lanier Ot 593.2 CYST OF KIDNEY, ACQUIRED 04/26/2016 ARI GASTELUM MD Ot V72.84 EXAM PRE-OPERATIVE NOS 04/26/2016 ERVIN OSBORNE MD Ot 593.2 CYST OF KIDNEY, ACQUIRED 04/26/2016 FAITH TURK Ot 174.9 MALIGN NEOPL BREAST NOS 04/26/2016 FAITH TURK Ot V67.9 FOLLOW-UP EXAM NOS 04/26/2016 FAITH TURK Ot 793.80 UNSPEC ABNORMAL MAMMOGRAM 04/26/2016 RAVEN LEO WILL CALL ORDER CLERK Ot 729.5 PAIN IN LIMB 04/26/2016 RAVEN LEO WILL CALL ORDER CLERK Ot 786.05 SHORTNESS OF BREATH 04/26/2016 ERVIN OSBORNE MD Ot 593.2 CYST OF KIDNEY, ACQUIRED 04/26/2016 FARZAD MOULTON, MEGHA Ku Ot 428.0 CONGESTIVE HEART FAILURE NOS 04/26/2016 ERVIN OSBORNE MD Ot 753.1 0 CYSTIC KIDNEY DISEASE, UNSPECIFIED 04/26/2016 FAITH TURK Ot V10.3 HX OF BREAST MALIGNANCY 04/26/2016 FAITH TURK Ot V12.51 HX- VENOUS THROMBOSIS EMBOLISM 04/26/2016 FAITH TURK Ot V12.55 [...] 276.1 HYPOSMOLALITY 04/26/2016 MEGHA PANDA MD Ot 250.0 0 DIAB TJ WO COMPL, TYPE II OR UNSPEC TY 04/26/2016 MEGHA PANDA MD Ot 276.8 HYPOPOTASSEMIA 04/26/2016 MEGHA PANDA MD Ot 250.0 0 DIAB TJ WO COMPL, TYPE II OR UNSPEC TY 04/26/2016 MEGHA PANDA MD Ot V58.6 9 OTH MED,LT,CURRENT USE 04/26/2016 MEGHA PANDA MD Ot L03.9 0 CELLULITIS, UNSPECIFIED 04/26/2016 MEGHA PANDA MD Ot Z51.8 1 ENCOUNTER FOR THERAPEUTIC DRUG LEVEL 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 04/26/2016 Ot N28.1 CYST OF KIDNEY, ACQUIRED 05/11/2016 JOSELUIS BORGESP Ot Z 08 ENCNTR FOR FOLLOW-UP EXAM AFTER TRTMT FO 05/11/2016 JOSELUIS BORGESP Ot Z79.01 [facility] (CURRENT) USE OF ANTICOAGULANT 05/11/2016 JOSELUIS BORGES COMMUNITY HE[facility] DIRECTOR Ot Z85.3 PERSONAL HISTORY OF MALIGNANT NEOPLASM O 05/11/2016 JOSELUIS BORGES COMMUNITY HEALTH DIRECTOR Ot Z86.718 PERSONAL HISTORY OF OTHER VENOUS THROMBO 05/11/2016 JOSELUIS BORGES COMMUNITY HEALTH DIRECTOR Ot Z90.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 05/11/2016 JOSELUIS BORGES COMMUNITY HEALTH DIRECTOR Ot Z 08 ENCNTR FOR FOLLOW-UP EXAM AFTER TRTMT FO 05/11/2016 JOSELUIS BORGESP Ot Z79.01 ENVIRONMENTAL DIRECTOR (CURRENT) USE OF ANTICOAGULANT 05/11/2016 JOSELUIS BORGES COMMUNITY HE[facility] DIRECTOR Ot Z85.3 PERSONAL HISTORY OF MALIGNANT NEOPLASM O 05/11/2016 JOSELUIS BORGES COMMUNITY HEALTH DIRECTOR Ot Z86.718 PERSONAL HISTORY OF OTHER VENOUS THROMBO 05/11/2016 JOSELUIS BORGES COMMUNITY HEALTH DIRECTOR Ot Z90.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 05/14/2016 Ot 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 05/14/2016 Ot N28.1 CYST OF KIDNEY, ACQUIRED 05/17/2016 Ot 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 05/17/2016 Ot N28.1 CYST OF KIDNEY, ACQUIRED 05/22/2016 DANY ESPINAL DO, Ot F02.81 DEMENTIA IN OTH DISEASES CLASSD [facility]SR W 05/24/2016 DANY ESPINAL DO, Ot 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 05/24/2016 DANY ESPINAL DO, Ot F02.81 DEMENTIA IN OTH DISEASES CLASSD [facility] W 05/24/2016 DANY ESPINAL DO Ot 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, 05/25/2016 NELLY SMITH DO Ot I51.7 CARDIOMEGALY 05/25/2016 NELLY SMITH DO Ot N39.0 URINARY TRACT INFECTION, SITE NOT SPECIF 05/25/2016 NELLY SMITH DO Ot R09.89 [facility] SYMPTOMS AND SIGNS INVOLVING THE CIR 05/26/2016 DANY ESPINAL DO Ot F02.81 DEMENTIA IN OTH DISEASES CLASSD [facility] W 05/26/2016 DANY ESPINAL DO, Ot 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, 05/28/2016 Ot 354.9 MONO NEURITIS ARM NOS 05/28/2016 Ot 416.2 PATCH SETTER EDVIN PULMONARY EMBOLISM 05/28/2016 Ot 453.50 CHR ONIC VENOUS EMBOLISM THROMBOSIS UNS 05/28/2016 Ot V10.3 HX O F BREAST MALIGNANCY 05/28/2016 Ot V45.71 ACQ UIRED ABSENCE OF BREAST AND NIPPLE 05/28/2016 Ot V58.61 ANTICOAGULANTS,LT,CURRENT USE 05/28/2016 Ot V58.67 WILMER G-TERM (CURRENT) USE OF INSULIN 05/28/2016 Ot V58.69 OTH MED,LT,CURRENT USE 05/28/2016 Ot V67.2 CHEM OTHERAPY FOLLOW-UP 05/28/2016 Ot 174.9 ANNA MARIE GN NEOPL BREAST NOS 05/28/2016 Ot 397.0 TRIC USPID VALVE DISEASE 05/28/2016 Ot 401.9 HYPE RTENSION NOS 05/28/2016 Ot 416.8 CHR PULMON HEART DIS NEC 05/28/2016 Ot 424.0 MITR AL VALVE DISORDER 05/28/2016 Ot 429.3 CARD IOMEGALY 05/28/2016 Ot 722.4 CERV ICAL DISC DEGEN 05/28/2016 Ot 250.00 LYN B TJ WO COMPL, TYPE II OR UNSPEC TY 05/28/2016 Ot 272.4 HYPE RLIPIDEMIA NEC/NOS 05/28/2016 Ot 401.9 HYPE RTENSION NOS 05/28/2016 Ot 429.3 CARD IOMEGALY 05/28/2016 Ot 786.09 RES PIRATORY ABNORM NEC 05/28/2016 Ot 354.0 CARP AL TUNNEL SYNDROME 05/28/2016 Ot V72.83 EXA M PRE- OPERATIVE NEC 05/28/2016 Ot V74.8 SCRE EN-BACTERIAL DIS NEC 05/28/2016 Ot 250.00 LYN Aspen SPENCER WO COMPL, TYPE II OR UNSPEC TY 05/28/2016 Ot 401.9 HYPE RTENSION NOS 05/28/2016 Ot 562.10 DIV ERTICULOSIS COLON (W/O MENT OF HEMORR 05/28/2016 Ot 569.89 INT ESTINAL DISORDERS NEC 05/28/2016 Ot V10.3 HX O F BREAST MALIGNANCY 05/28/2016 Ot V58.61 ANTICOAGULANTS,LT,CURRENT USE 05/28/2016 Ot V58.69 OTH MED,LT,CURRENT USE 05/28/2016 Ot V76.51 SCR EEN MAL NEOP- COLON 05/28/2016 Ot 562.10 DIV ERTICULOSIS COLON (W/O MENT OF HEMORR 05/28/2016 Ot 174.9 ANNA MARIE GN NEOPL BREAST NOS 05/28/2016 Ot 174.9 ANNA MARIE GN NEOPL BREAST NOS 05/28/2016 Ot V76.11 SCR N MAMMO-HIGH RISK PT, MALIGNANT NEOPL 05/28/2016 Ot 174.9 ANNA MARIE GN NEOPL BREAST NOS 05/28/2016 Ot 793.81 BOO MOGRAPHIC MICROCLACIFICATION 05/28/2016 Ot 793.81 BOO MOGRAPHIC MICROCLACIFICATION 05/28/2016 Ot V64.3 NO P ANUSHA FOR REASONS NEC 05/28/2016 Ot 611.72 LUM P OR MASS IN BREAST 05/28/2016 Ot V72.83 EXA M PRE- OPERATIVE NEC 05/28/2016 Ot V74.8 SCRE EN-BACTERIAL DIS NEC 05/28/2016 Ot 611.89 OTH ER SPECIFIED DISORDERS OF BREAST 05/28/2016 Ot V67.09 PATRICK CORNELIO FOLLOW- UP, OTHER SURGERY 05/28/2016 MEGHA PANDA MD Ot 786.2 COUGH 05/28/2016 Ot 729.5 PAIN IN LIMB 05/28/2016 Ot V12.51 HX- VENOUS THROMBOSIS EMBOLISM 05/28/2016 FAITH TURK Ot 174.9 MALIGN NEOPL BREAST NOS 05/28/2016 MEGHA PANDA MD Ot 453.4 0 ACUTE VENOUS EMBOLISM THROMBOSIS UNSP 05/28/2016 FAITH TURK Ot V10.3 HX OF BREAST MALIGNANCY 05/28/2016 FAITH TURK Ot V67.9 FOLLOW-UP EXAM NOS 05/28/2016 ERVIN OSBORNE MD Ot 593.9 RENAL URETERAL DIS NOS 05/28/2016 ERVIN OSBORNE MD Ot 753.1 0 CYSTIC KIDNEY DISEASE, UNSPECIFIED 05/28/2016 JOSELUIS BORGES COMMUNITY HEALTH DIRECTOR Ot 174.9 MALIGN NEOPL BREAST NOS 05/28/2016 JOSELUIS BORGES COMMUNITY HEALTH DIRECTOR Ot V67.9 FOLLOW-UP EXAM NOS 05/28/2016 ERVIN OSBORNE MD Ot 593.2 CYST OF KIDNEY, ACQUIRED 05/28/2016 NIRAV MOULTON, ARI Ot V72.84 EXAM PRE-OPERATIVE NOS 05/28/2016 ERVIN OSBORNE MD Ot 593.2 CYST OF KIDNEY, ACQUIRED 05/28/2016 FAITH TURK Ot 174.9 MALIGN NEOPL BREAST NOS 05/28/2016 FAITH TURK Ot V67.9 FOLLOW-UP EXAM NOS 05/28/2016 FAITH TURK Ot 793.80 UNSPEC ABNORMAL MAMMOGRAM 05/28/2016 RAVEN LEO APRN Ot 729.5 PAIN IN LIMB 05/28/2016 RAVEN LEO APRN Ot 786.05 SHORTNESS OF BREATH 05/28/2016 ERVIN OSBORNE MD Ot 593.2 CYST OF KIDNEY, ACQUIRED 05/28/2016 MEGHA PANDA MD Ot 428.0 CONGESTIVE HEART FAILURE NOS 05/28/2016 ERVIN OSBORNE MD Ot 753.1 0 CYSTIC KIDNEY DISEASE, UNSPECIFIED 05/28/2016 FAITH TURK Ot V10.3 HX OF BREAST MALIGNANCY 05/28/2016 FAITH TURK Evy Ot V12.51 HX- VENOUS THROMBOSIS EMBOLISM 05/28/2016 FAITH TURK Evy Ot V12.55 PERSONAL HISTORY OF PULMONARY EMBOLISM 05/28/2016 FAITH TURK Evy Ot V45.71 ACQUIRED ABSENCE OF BREAST AND NIPPLE 05/28/2016 FAITH TURK Evy Ot V58.61 ANTICOAGULANTS,LT,CURRENT USE 05/28/2016 FAITH TURK Evy Ot V58.69 OTH MED,LT,CURRENT USE 05/28/2016 FAITH TURK Evy Ot V67.2 CHEMOTHERAPY FOLLOW-UP 05/28/2016 FAITH TURK Evy Ot 174.9 MALIGN NEOPL BREAST NOS 05/28/2016 MEGHA PANDA MD Ot 276.1 HYPOSMOLALITY 05/28/2016 MEGHA PANDA MD Ot 250.0 0 DIAB TJ WO COMPL, TYPE II OR UNSPEC TY 05/28/2016 MEGHA PANDA MD Ot 276.8 HYPOPOTASSEMIA 05/28/2016 MEGHA PANDA MD Ot 250.0 0 DIAB TJ WO COMPL, TYPE II OR UNSPEC TY 05/28/2016 MEGHA PANDA MD Ot V58.6 9 OTH MED,LT,CURRENT USE 05/28/2016 MEGHA PANDA MD Ot L03.9 0 CELLULITIS, UNSPECIFIED 05/28/2016 MEGHA PANDA MD Ot Z51.8 1 ENCOUNTER FOR THERAPEUTIC DRUG LEVEL MON 05/28/2016 MEGHA PANDA MD Ot Z79.2 ENVIRONMENTAL DIRECTOR (CURRENT) USE OF ANTIBIOTICS 05/28/2016 AGATHA ESPINAL Ot N39.0 URINARY TRACT INFECTION, SITE NOT SPECIF 05/28/2016 DANY ESPINAL DO Ot E03.9 HYPOTHYROIDISM, UNSPECIFIED 05/28/2016 DANY ESPINAL DO Ot I48.2 CHRONIC ATRIAL FIBRILLATION 05/28/2016 DANY ESPINAL DO Ot N39.0 URINARY TRACT INFECTION, SITE NOT SPECIF 05/28/2016 DANY ESPINAL DO Ot N39.0 URINARY TRACT INFECTION, SITE NOT SPECIF 05/28/2016 Ot 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 05/28/2016 Ot N28.1 CYST OF KIDNEY, ACQUIRED 05/28/2016 BORGES, HILAH S COMMUNITY HEALTH DIRECTOR Ot Z 08 ENCNTR FOR FOLLOW-UP EXAM AFTER TRTMT FO 05/28/2016 JOSELUIS BORGES COMMUNITY HEALTH DIRECTOR Ot Z79.01 ENVIRONMENTAL DIRECTOR (CURRENT) USE OF ANTICOAGULANT 05/28/2016 JOSELUIS BORGES COMMUNITY HEALTH DIRECTOR Ot Z85.3 PERSONAL HISTORY OF MALIGNANT NEOPLASM O 05/28/2016 JOSELUIS BORGES COMMUNITY HEALTH DIRECTOR Ot Z86.718 PERSONAL HISTORY OF OTHER VENOUS THROMBO 05/28/2016 REDD BORGESCAITIE Marito COMMUNITY HEALTH DIRECTOR Ot Z90.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 05/28/2016 DANY ESPINAL DO Ot 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 05/28/2016 DANY ESPINAL DO Ot 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, 05/28/2016 JAYE MENG APRN Ot I48 .2 CHRONIC ATRIAL FIBRILLATION 05/28/2016 JAYE MENG APRN Ot I50 .9 HEART FAILURE, UNSPECIFIED 05/28/2016 JAYE MENG APRN Ot K59.00 CONSTIPATION, UNSPECIFIED 05/28/2016 JAYE MENG APRN Ot R07.89 OTHER CHEST PAIN 05/30/2016 JOSELUIS BORGES COMMUNITY HEALTH DIRECTOR Ot Z 08 ENCNTR FOR FOLLOW-UP EXAM AFTER TRTMT FO 05/30/2016 JOSELUIS BORGES COMMUNITY HEALTH DIRECTOR Ot Z79.01 [facility]CI (CURRENT) USE OF ANTICOAGULANT 05/30/2016 JOSELUIS BORGES COMMUNITY HEALTH DIRECTOR Ot Z85.3 PERSONAL HISTORY OF MALIGNANT NEOPLASM O 05/30/2016 JOSELUIS BORGES COMMUNITY HEALTH DIRECTOR Ot Z86.718 PERSONAL HISTORY OF OTHER VENOUS THROMBO 05/30/2016 JOSELUIS BORGES COMMUNITY HEALTH DIRECTOR Ot Z90.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 05/31/2016 JAYE MENG APRN Ot I48 .2 CHRONIC ATRIAL FIBRILLATION 05/31/2016 JAYE MENG APRN Ot I50 .9 HEART FAILURE, UNSPECIFIED 05/31/2016 JAYE MENG APRN Ot K59.00 CONSTIPATION, UNSPECIFIED 05/31/2016 JAYE MENG APRN Ot R07.89 OTHER CHEST PAIN 06/07/2016 JOSELUIS BORGES COMMUNITY HEALTH DIRECTOR Ot Z 08 ENCNTR FOR FOLLOW-UP EXAM AFTER TRTMT FO 06/07/2016 JOSELUIS BORGES Ot Z79.01 [facility]CI (CURRENT) USE OF ANTICOAGULANT 06/07/2016 JOSELUIS BORGES Ot Z85.3 PERSONAL HISTORY OF MALIGNANT NEOPLASM O 06/07/2016 JOSELUIS BORGES Ot Z86.718 PERSONAL HISTORY OF OTHER VENOUS THROMBO 06/07/2016 JOSELUIS BORGES Ot Z90.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 06/14/2016 DANY ESPINAL DO Ot 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 06/14/2016 DANY ESPINAL DO Ot 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 PAIN IN LIMB 03/28/2017 Ot V12.51 HX- VENOUS THROMBOSIS EMBOLISM 03/28/2017 FAITH TURK Ot 174.9 MALIGN NEOPL BREAST NOS 03/28/2017 MEGHA PANDA MD Ot 453.4 0 ACUTE VENOUS EMBOLISM THROMBOSIS UNSP 03/28/2017 FAITH TURK Ot V10.3 HX OF BREAST MALIGNANCY 03/28/2017 FAITH TURK Ot V67.9 FOLLOW-UP EXAM NOS 03/28/2017 ERVIN OSBORNE MD Ot 593.9 RENAL URETERAL DIS NOS 03/28/2017 ERVIN OSBORNE MD Ot 753.1 0 CYSTIC KIDNEY DISEASE, UNSPECIFIED 03/28/2017 JOSELUIS BORGES COMMUNITY HEALTH DIRECTOR Ot 174.9 MALIGN NEOPL BREAST NOS 03/28/2017 JOSELUIS BORGES COMMUNITY HEALTH DIRECTOR Ot V67.9 FOLLOW-UP EXAM NOS 03/28/2017 INDIA MOULTON, ERVIN Lanier Ot 593.2 CYST OF KIDNEY, ACQUIRED 03/28/2017 ARI GASTELUM MD Ot V72.84 EXAM PRE-OPERATIVE NOS 03/28/2017 INDIA MOULTON, ERVIN Lanier Ot 593.2 CYST OF KIDNEY, ACQUIRED 03/28/2017 FAITH TURK Ot 174.9 MALIGN NEOPL BREAST NOS 03/28/2017 FAITH TURK Ot V67.9 FOLLOW-UP EXAM NOS 03/28/2017 FAITH TURK Ot 793.80 UNSPEC ABNORMAL MAMMOGRAM 03/28/2017 RAVEN LEO WILL CALL ORDER CLERK Ot 729.5 PAIN IN LIMB 03/28/2017 RAVEN LEO WILL CALL ORDER CLERK Ot 786.05 SHORTNESS OF BREATH 03/28/2017 ERVIN OSBORNE MD Ot 593.2 CYST OF KIDNEY, ACQUIRED 03/28/2017 BLAXOCHILTHO DPM, FRANCK Stanton Ot M79.604 PAIN IN RIGHT LEG 04/19/2017 BLANCHO DPM, FRANCK Stanton Ot M79.604 PAIN IN RIGHT LEG 04/25/2017 SARAH DO, NELLY K Ot I51.7 CARDIOMEGALY 04/25/2017 SARAH DO, NELLY K Ot N39.0 URINARY TRACT INFECTION, SITE NOT SPECIF 04/25/2017 SARAH DO, NELLY K Ot R09.89 OTH SYMPTOMS AND SIGNS INVOLVING THE CIR 04/25/2017 AGATHA ESPINAL COMMUNITY HEALTH DIRECTOR Ot N28.1 CYST OF KIDNEY, ACQUIRED 04/25/2017 AGATHA ESPINAL COMMUNITY HEALTH DIRECTOR Ot R10.2 PELVIC AND PERINEAL PAIN 04/26/2017 ERVIN OSBORNE MD Ot N28.1 CYST OF KIDNEY, ACQUIRED 04/26/2017 BLANCHO DPM, FRANCK Stanton Ot M79.604 PAIN IN RIGHT LEG 04/26/2017 ERVIN OSBORNE MD Ot N28.1 CYST OF KIDNEY, ACQUIRED 04/26/2017 ERVIN OSBORNE MD Ot N28.1 CYST OF KIDNEY, ACQUIRED 04/26/2017 ERVIN OSBORNE MD Ot N28.1 CYST OF KIDNEY, ACQUIRED 05/10/2017 FAITH TURK Ot E11.9 TYPE 2 DIABETES MELLITUS WITHOUT COMPLIC 05/10/2017 FAITH TURK Ot E78.5 HYPERLIPIDEMIA, UNSPECIFIED 05/10/2017 FAITH TURK Ot I10 ESSENTIAL (PRIMARY) HYPERTENSION 05/10/2017 FAITH TURK Ot Z08 ENCNTR FOR FOLLOW-UP EXAM AFTER TRTMT FO 05/10/2017 FAITH TURK Ot Z79.01 ENVIRONMENTAL DIRECTOR (CURRENT) USE OF ANTICOAGULANT 05/10/2017 FAITH TURK Ot Z79.4 [facility] (CURRENT) USE OF INSULIN 05/10/2017 FAITH TURK Ot Z85.3 PERSONAL HISTORY OF MALIGNANT NEOPLASM O 05/10/2017 FAITH TURK Ot Z86.718 PERSONAL HISTORY OF OTHER VENOUS THROMBO 05/10/2017 FAITH TURK Ot Z90.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 05/10/2017 FAITH TURK Ot Z92.21 PERSONAL HISTORY OF ANTINEOPLASTIC CHEMO 05/14/2017 AGATHA ESPINAL COMMUNITY HEALTH DIRECTOR Ot N28.1 CYST OF KIDNEY, ACQUIRED 05/14/2017 AGATHA ESPINAL COMMUNITY HEALTH DIRECTOR Ot R10.2 PELVIC AND PERINEAL PAIN 05/14/2017 INDIA MOULTON, ERVIN A Ot N28.1 CYST OF KIDNEY, ACQUIRED 05/24/2017 ERVIN OSBORNE MD A Ot N28.1 CYST OF KIDNEY, ACQUIRED 05/29/2017 YANG VALERA MD Ot K62. 5 HEMORRHAGE OF ANUS AND RECTUM 05/29/2017 YANG VALERA MD Ot Z01.818 ENCOUNTER FOR OTHER PREPROCEDURAL EXAMIN 05/30/2017 YANG VALERA MD Ot K62. 5 HEMORRHAGE OF ANUS AND RECTUM 05/30/2017 YANG VALERA MD Ot Z01.818 ENCOUNTER FOR OTHER PREPROCEDURAL EXAMIN 05/31/2017 YANG VALERA MD Ot D12. 3 BENIGN NEOPLASM OF TRANSVERSE COLON 05/31/2017 YANG VALERA MD Ot E11. 9 TYPE 2 DIABETES MELLITUS WITHOUT COMPLIC 05/31/2017 YANG VALERA MD Ot I10 ESSENTIAL (PRIMARY) HYPERTENSION 05/31/2017 YANG VALERA MD Ot I48. 0 PAROXYSMAL ATRIAL FIBRILLATION 05/31/2017 VALERA MD, YANG D Ot K57. 30 DVRTCLOS OF LG INT W/O PERFORATION OR AB 05/31/2017 YANG VALERA MD Ot K62. 5 HEMORRHAGE OF ANUS AND RECTUM 05/31/2017 YANG VALERA MD Ot Z79.899 OTHER [facility] (CURRENT) DRUG THERAPY 06/04/2017 YANG VALERA MD Ot D12. 3 BENIGN NEOPLASM OF TRANSVERSE COLON 06/04/2017 YANG VALERA MD Ot E11. 9 TYPE 2 DIABETES MELLITUS WITHOUT COMPLIC 06/04/2017 YANG VALERA MD Ot I10 ESSENTIAL (PRIMARY) HYPERTENSION 06/04/2017 YANG VALERA MD Ot I48. 0 PAROXYSMAL ATRIAL FIBRILLATION 06/04/2017 YANG VALERA MD, Ot K57. 30 DVRTCLOS OF LG INT W/O PERFORATION OR AB 06/04/2017 YANG VALERA MD Ot K62. 5 HEMORRHAGE OF ANUS AND RECTUM 06/04/2017 YANG VALERA MD, Ot Z79.899 OTHER [facility] (CURRENT) DRUG THERAPY 06/13/2017 AGATHA ESPINAL COMMUNITY HEALTH DIRECTOR Ot N28.1 CYST OF KIDNEY, ACQUIRED 06/13/2017 AGATHA ESPINAL COMMUNITY HEALTH DIRECTOR Ot R10.2 PELVIC AND PERINEAL PAIN 06/17/2017 FAITH TURK Ot E11.9 TYPE 2 DIABETES MELLITUS WITHOUT COMPLIC 06/17/2017 FAITH TURK Ot E78.5 HYPERLIPIDEMIA, UNSPECIFIED 06/17/2017 FAITH TURK Ot I10 ESSENTIAL (PRIMARY) HYPERTENSION 06/17/2017 FAITH TURK Ot Z08 ENCNTR FOR FOLLOW-UP EXAM AFTER TRTMT FO 06/17/2017 FAITH TURK Ot Z79.01 ENVIRONMENTAL DIRECTOR (CURRENT) USE OF ANTICOAGULANT 06/17/2017 FAITH TURK Ot Z79.4 [facility] (CURRENT) USE OF INSULIN 06/17/2017 FAITH TURK Ot Z85.3 PERSONAL HISTORY OF MALIGNANT NEOPLASM O 06/17/2017 FAITH TURK Ot Z86.718 PERSONAL HISTORY OF OTHER VENOUS THROMBO 06/17/2017 FAITH TURK Ot Z90.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 06/17/2017 FAITH TURK Ot Z92.21 PERSONAL HISTORY OF ANTINEOPLASTIC CHEMO 06/25/2017 Ot S05.02XA I NJ CONJUNCTIVA AND CORNEAL ABRASION W/O 06/25/2017 Ot W22.8XXA S TRIKING AGAINST OR STRUCK BY OTHER OBJE 06/26/2017 FAITH TURK Ot E11.9 TYPE 2 DIABETES MELLITUS WITHOUT COMPLIC 06/26/2017 FAITH TURK Ot E78.5 HYPERLIPIDEMIA, UNSPECIFIED 06/26/2017 FAITH TURK Ot I10 ESSENTIAL (PRIMARY) HYPERTENSION 06/26/2017 FAITH TURK Ot Z08 ENCNTR FOR FOLLOW-UP EXAM AFTER TRTMT FO 06/26/2017 FAITH TURK Ot Z79.01 ENVIRONMENTAL DIRECTOR (CURRENT) USE OF ANTICOAGULANT 06/26/2017 FAITH TURK Ot Z79.4 ENVIRONMENTAL DIRECTOR (CURRENT) USE OF INSULIN 06/26/2017 FAITH TURK Ot Z85.3 PERSONAL HISTORY OF MALIGNANT NEOPLASM O 06/26/2017 FAITH TURK Ot Z86.718 PERSONAL HISTORY OF OTHER VENOUS THROMBO 06/26/2017 FAITH TURK Ot Z90.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 06/26/2017 FAITH TURK Ot Z92.21 PERSONAL HISTORY OF ANTINEOPLASTIC CHEMO 07/04/2017 FAITH TURK Ot Z12.31 ENCNTR SCREEN MAMMOGRAM FOR MALIGNANT NE 07/26/2017 Ot S05.02XA I NJ CONJUNCTIVA AND CORNEAL ABRASION W/O 07/26/2017 Ot W22.8XXA S TRIKING AGAINST OR STRUCK BY OTHER OBJE 07/26/2017 SARAH DO NELLY K Ot I51.7 CARDIOMEGALY 07/26/2017 SARAH DO NELLY K Ot N39.0 URINARY TRACT INFECTION, SITE NOT SPECIF 07/26/2017 SARAH CHAUHAN NELLY K Ot R09.89 OTH SYMPTOMS AND SIGNS INVOLVING THE CIR 08/07/2017 FAITH TURK Ot E11.9 TYPE 2 DIABETES MELLITUS WITHOUT COMPLIC 08/07/2017 FAITH TURK Ot E78.5 HYPERLIPIDEMIA, UNSPECIFIED 08/07/2017 FAITH TURK Ot I10 ESSENTIAL (PRIMARY) HYPERTENSION 08/07/2017 FAITH TURK Ot Z08 ENCNTR FOR FOLLOW-UP EXAM AFTER TRTMT FO 08/07/2017 FAITH TURK Ot Z79.01 ENVIRONMENTAL DIRECTOR (CURRENT) USE OF ANTICOAGULANT 08/07/2017 FAITH TURK Ot Z79.4 [facility] (CURRENT) USE OF INSULIN 08/07/2017 FAITH TURK [...] TYPE 2 DIABETES MELLITUS WITHOUT COMPLIC 09/04/2017 ARVIND BOGGS MD Ot E78.5 HYPERLIPIDEMIA, UNSPECIFIED 09/04/2017 ARVIND BOGGS MD Ot F31.9 BIPOLAR DISORDER, UNSPECIFIED 09/04/2017 ARVIND BOGGS MD Ot G25.0 ESSENTIAL TREMOR 09/04/2017 ARVIND BOGGS MD Ot G47.33 OBSTRUCTIVE SLEEP APNEA (ADULT) (PEDIATR 09/04/2017 ARVIND BOGGS MD Ot I1 0 ESSENTIAL (PRIMARY) HYPERTENSION 09/04/2017 ARVIND BOGGS MD Ot I27.20 PULMONARY HYPERTENSION, UNSPECIFIED 09/04/2017 ARVIND BOGGS MD Ot M79.7 FIBROMYALGIA 09/04/2017 ARVIND BOGGS MD Ot R5 1 HEADACHE 09/04/2017 ARVIND BOGGS MD Ot Z79.4 [facility] (CURRENT) USE OF INSULIN 09/04/2017 ARVIND BOGGS MD Ot Z79.899 OTHER [facility] (CURRENT) DRUG THERAPY 09/11/2017 ARVIND BOGGS MD Ot E11.9 TYPE 2 DIABETES MELLITUS WITHOUT COMPLIC 09/11/2017 ARVIND BOGGS MD Ot E78.5 HYPERLIPIDEMIA, UNSPECIFIED 09/11/2017 FLAKITA MOULTON, ARVIND Aleman Ot F31.9 BIPOLAR DISORDER, UNSPECIFIED 09/11/2017 FLAKITA MOULTON, ARVIND Aleman Ot G25.0 ESSENTIAL TREMOR 09/11/2017 FLAKITA MOULTON, ARVIND Aleman Ot G47.33 OBSTRUCTIVE SLEEP APNEA (ADULT) (PEDIATR 09/11/2017 FLAKITA MOULTON, ARVIND Aleman Ot I1 0 ESSENTIAL (PRIMARY) HYPERTENSION 09/11/2017 FLAKITA MOULTON, ARVIND Aleman Ot I27.20 PULMONARY HYPERTENSION, UNSPECIFIED 09/11/2017 FLAKITA MOULTON, ARVIND Aleman Ot M79.7 FIBROMYALGIA 09/11/2017 LFAKITA MOULTON, ARVIND Aleman Ot R5 1 HEADACHE 09/11/2017 FLAKITA MOULTON, ARVIND Aleman Ot Z79.4 [facility] (CURRENT) USE OF INSULIN 09/11/2017 FLAKITA MOULTON, ARVIND Aleman Ot Z79.899 OTHER [facility] (CURRENT) DRUG THERAPY 09/14/2017 DANY ESPINAL DO, Ot D72.829 ELEVATED WHITE BLOOD CELL COUNT, UNSPECI 09/14/2017 DANY ESPINAL DO, Ot E11.9 TYPE 2 DIABETES MELLITUS WITHOUT COMPLIC 09/14/2017 DANY ESPINAL DO, Ot E66.9 OBESITY, UNSPECIFIED 09/14/2017 DANY ESPINAL DO, Ot E78.5 HYPERLIPIDEMIA, UNSPECIFIED 09/14/2017 DANY ESPINAL DO, Ot F31.9 BIPOLAR DISORDER, UNSPECIFIED 09/14/2017 DANY ESPINAL DO, Ot I25.10 ATHSCL HEART DISEASE OF [place] CORONARY 09/14/2017 DANY ESPINAL DO, Ot I27.20 [...] ADULT 09/14/2017 DANY ESPINAL DO, Ot Z79.01 ENVIRONMENTAL DIRECTOR (CURRENT) USE OF ANTICOAGULANT 09/14/2017 DANY ESPINAL DO, Ot Z79.4 [facility] (CURRENT) USE OF INSULIN 09/14/2017 DANY ESPINAL DO, Ot Z79.899 OTHER [facility] (CURRENT) DRUG THERAPY 09/14/2017 DANY ESPINAL DO, [...] INCONCLUSIVE FINDINGS ON DX 02/03/2018 Ot 611.89 OTH ER SPECIFIED DISORDERS OF BREAST 02/03/2018 Ot V67.09 PATRICK CORNELIO FOLLOW- UP, OTHER SURGERY 02/03/2018 FARZAD MOULTON, MEGHA Ku Ot 786.2 COUGH 02/03/2018 Ot 729.5 PAIN IN LIMB 02/03/2018 Ot V12.51 HX- VENOUS THROMBOSIS EMBOLISM 02/03/2018 FAITH TURK Ot 174.9 MALIGN NEOPL BREAST NOS 02/03/2018 MEGHA PANDA MD Ot 453.4 0 ACUTE VENOUS EMBOLISM THROMBOSIS UNSP 02/03/2018 FAITH TURK Ot V10.3 HX OF BREAST MALIGNANCY 02/03/2018 FAITH TURK Ot V67.9 FOLLOW-UP EXAM NOS 02/03/2018 ERVIN OSBORNE MD Ot 593.9 RENAL URETERAL DIS NOS 02/03/2018 ERVIN OSBORNE MD Ot 753.1 0 CYSTIC KIDNEY DISEASE, UNSPECIFIED 02/03/2018 JOSELUIS BORGESP Ot 174.9 MALIGN NEOPL BREAST NOS 02/03/2018 JOSELUIS BORGES Ot V67.9 FOLLOW-UP EXAM NOS 02/03/2018 ERVIN OSBORNE MD Ot 593.2 CYST OF KIDNEY, ACQUIRED 02/03/2018 NIRAV MOULTON, RACHIDLAVELL Ot V72.84 EXAM PRE-OPERATIVE NOS 02/03/2018 INDIA MOULTON, ERVIN Lanier Ot 593.2 CYST OF KIDNEY, ACQUIRED 02/03/2018 FAITH TURK Ot 174.9 MALIGN NEOPL BREAST NOS 02/03/2018 ROSALEE FAITH Ratliff Ot V67.9 FOLLOW-UP EXAM NOS 02/03/2018 FAITH TURK Ot 793.80 UNSPEC ABNORMAL MAMMOGRAM 02/03/2018 RAVEN LEO WILL CALL ORDER CLERK Ot 729.5 PAIN IN LIMB 02/03/2018 RAVEN LEO WILL CALL ORDER CLERK Ot 786.05 SHORTNESS OF BREATH 02/03/2018 INDIA MOULTON, ERVIN Lanier Ot 593.2 CYST OF KIDNEY, ACQUIRED 02/03/2018 MEGHA PANDA MD Ot 428.0 CONGESTIVE HEART FAILURE NOS 02/03/2018 ERVIN OSBORNE MD Ot 753.1 0 CYSTIC KIDNEY DISEASE, UNSPECIFIED 02/03/2018 FAITH TURK Ot V10.3 HX OF BREAST MALIGNANCY 02/03/2018 FAITH TURK Ot V12.51 HX- VENOUS THROMBOSIS EMBOLISM 02/03/2018 FAITH TURK Ot V12.55 PERSONAL HISTORY OF PULMONARY EMBOLISM 02/03/2018 FAITH TURK Ot V45.71 ACQUIRED ABSENCE OF BREAST AND NIPPLE 02/03/2018 FAITH TURK Ot V58.61 ANTICOAGULANTS,LT,CURRENT USE 02/03/2018 FAITH TURK Ot V58.69 OTH MED,LT,CURRENT USE 02/03/2018 FAITH TURK Ot V67.2 CHEMOTHERAPY FOLLOW-UP 02/03/2018 FAITH TURK Ot 174.9 MALIGN NEOPL BREAST NOS 02/03/2018 MEGHA PANDA MD Ot 276.1 HYPOSMOLALITY 02/03/2018 MEGHA PANDA MD Ot 250.0 0 DIAB TJ WO COMPL, TYPE II OR UNSPEC TY 02/03/2018 MEGHA PANDA MD Ot 276.8 HYPOPOTASSEMIA 02/03/2018 MEGHA PANDA MD Ot 250.0 0 DIAB TJ WO COMPL, TYPE II OR UNSPEC TY 02/03/2018 MEGHA PANDA MD Ot V58.6 9 OTH MED,LT,CURRENT USE 02/03/2018 MEGHA PANDA MD Ot L03.9 0 CELLULITIS, UNSPECIFIED 02/03/2018 MEGHA PANDA MD Ot Z51.8 1 ENCOUNTER FOR THERAPEUTIC DRUG LEVEL MON 02/03/2018 MEGHA PANDA MD Ot Z79.2 ENVIRONMENTAL DIRECTOR (CURRENT) USE OF ANTIBIOTICS 02/03/2018 AGATHA ESPINAL Ot N39.0 URINARY TRACT INFECTION, SITE NOT SPECIF 02/03/2018 DANY ESPINAL DO Ot E03.9 HYPOTHYROIDISM, UNSPECIFIED 02/03/2018 DANY ESPINAL DO Ot I48.2 CHRONIC ATRIAL FIBRILLATION 02/03/2018 DANY ESPINAL DO Ot N39.0 URINARY TRACT INFECTION, SITE NOT SPECIF 02/03/2018 DANY ESPINAL DO Ot N39.0 URINARY TRACT INFECTION, SITE NOT SPECIF 02/03/2018 Ot 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 02/03/2018 Ot N28.1 CYST OF KIDNEY, ACQUIRED 02/03/2018 JOSELUIS BORGES Ot Z 08 ENCNTR FOR FOLLOW-UP EXAM AFTER TRTMT FO 02/03/2018 JOSELUIS BORGES Ot Z79.01 ENVIRONMENTAL DIRECTOR (CURRENT) USE OF ANTICOAGULANT 02/03/2018 JOSELUIS BORGES Ot Z85.3 PERSONAL HISTORY OF MALIGNANT NEOPLASM O 02/03/2018 JOSELUIS BORGES Ot Z86.718 PERSONAL HISTORY OF OTHER VENOUS THROMBO 02/03/2018 JOSELUIS BORGES Ot Z90.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 02/03/2018 JOSELUIS BORGES Ot Z12.31 ENCNTR SCREEN MAMMOGRAM FOR MALIGNANT NE 02/03/2018 DANY ESPINAL DO Ot 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 2 MIXED HYPERLIPIDEMIA 02/03/2018 SHEELA BANUELOS MD Ot G25. 0 ESSENTIAL TREMOR 02/03/2018 SHEELA BANUELOS MD Ot I10 ESSENTIAL (PRIMARY) HYPERTENSION 02/03/2018 LAKISHA MOULTON, SHEELA Short Ot I48. 0 PAROXYSMAL ATRIAL FIBRILLATION 02/03/2018 LAKISHA MOULTON, SHEELA Short Ot R07. 9 CHEST PAIN, UNSPECIFIED 02/03/2018 MARSHA GALLOWAYM, FRANCK Stanton Ot M79.604 PAIN IN RIGHT LEG 02/03/2018 TEDDYAGATHA [place] COMMUNITY HEALTH DIRECTOR Ot N28.1 CYST OF KIDNEY, ACQUIRED 02/03/2018 AGATHA ESPINAL L COMMUNITY HEALTH DIRECTOR Ot R10.2 PELVIC AND PERINEAL PAIN 02/03/2018 [...] TRTMT FO 02/03/2018 FAITH TURK Ot Z79.01 [facility] (CURRENT) USE OF ANTICOAGULANT 02/03/2018 FAITH TURK Ot Z79.4 [facility] (CURRENT) USE OF INSULIN 02/03/2018 FAITH TURK Ot Z85.3 PERSONAL HISTORY OF MALIGNANT NEOPLASM O 02/03/2018 FAITH TURK Ot Z86.718 PERSONAL HISTORY OF OTHER VENOUS THROMBO 02/03/2018 FAITH TURK Ot Z90.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 02/03/2018 FAITH TURK Ot Z92.21 PERSONAL HISTORY OF ANTINEOPLASTIC CHEMO 02/03/2018 JOSELUIS BORGES COMMUNITY HEALTH DIRECTOR Ot R92.8 OTH ABN AND INCONCLUSIVE FINDINGS ON DX 02/10/2018 Ot 611.89 OTH ER SPECIFIED DISORDERS OF BREAST 02/10/2018 Ot V67.09 PATRICK CORNELIO FOLLOW- UP, OTHER SURGERY 02/10/2018 FARZAD MOULTON, MEGHA Ku Ot 786.2 COUGH 02/10/2018 Ot 729.5 PAIN IN LIMB 02/10/2018 Ot V12.51 HX- VENOUS THROMBOSIS EMBOLISM 02/10/2018 FAITH TURK Ot 174.9 MALIGN NEOPL BREAST NOS 02/10/2018 FARZAD MOULTON, MEGHA Ku Ot 453.4 0 ACUTE VENOUS EMBOLISM THROMBOSIS UNSP 02/10/2018 FAITH TURK Ot V10.3 HX OF BREAST MALIGNANCY 02/10/2018 FAITH TURK Ot V67.9 FOLLOW-UP EXAM NOS 02/10/2018 INDIA MOULTON, ERVIN Lanier Ot 593.9 RENAL URETERAL DIS NOS 02/10/2018 INDIA MOULTON, ERVIN Lanier Ot 753.1 0 CYSTIC KIDNEY DISEASE, UNSPECIFIED 02/10/2018 JOSELUIS BORGES COMMUNITY HEALTH DIRECTOR Ot 174.9 MALIGN NEOPL BREAST NOS 02/10/2018 JOSELIUS BORGES COMMUNITY HEALTH DIRECTOR Ot V67.9 FOLLOW-UP EXAM NOS 02/10/2018 ERVIN OSBORNE MD Ot 593.2 CYST OF KIDNEY, ACQUIRED 02/10/2018 NIRAV MOULTON, ARI Ot V72.84 EXAM PRE-OPERATIVE NOS 02/10/2018 INDIA MOULTON, ERVIN Lanier Ot 593.2 CYST OF KIDNEY, ACQUIRED 02/10/2018 FAITH TURK Ot 174.9 MALIGN NEOPL BREAST NOS 02/10/2018 FAITH TURK Ot V67.9 FOLLOW-UP EXAM NOS 02/10/2018 FAITH TURK Ot 793.80 UNSPEC ABNORMAL MAMMOGRAM 02/10/2018 RAVEN LEO WILL CALL ORDER CLERK Ot 729.5 PAIN IN LIMB 02/10/2018 RAVEN LEO WILL CALL ORDER CLERK Ot 786.05 SHORTNESS OF BREATH 02/10/2018 ERVIN OSBORNE MD A Ot 593.2 CYST OF KIDNEY, ACQUIRED 02/10/2018 FARZAD MOULTON, MEGHA Ku Ot 428.0 CONGESTIVE HEART FAILURE NOS 02/10/2018 ERVIN OSBORNE MD A Ot 753.1 0 CYSTIC KIDNEY DISEASE, UNSPECIFIED 02/10/2018 FAITH TURK Ot V10.3 HX OF BREAST MALIGNANCY 02/10/2018 FAITH TURK Ot V12.51 HX- VENOUS THROMBOSIS EMBOLISM 02/10/2018 FAITH TURK Ot V12.55 PERSONAL HISTORY OF PULMONARY EMBOLISM 02/10/2018 FAITH TURK Evy Ot V45.71 ACQUIRED ABSENCE OF BREAST AND NIPPLE 02/10/2018 FAITH TURK Evy Ot V58.61 ANTICOAGULANTS,LT,CURRENT USE 02/10/2018 ROSALEE FAITH Ratliff Ot V58.69 OTH MED,LT,CURRENT USE 02/10/2018 FAITH TURK Evy Ot V67.2 CHEMOTHERAPY FOLLOW-UP 02/10/2018 FAITH TURK Ot 174.9 MALIGN NEOPL BREAST NOS 02/10/2018 MEGHA PANDA MD Ot 276.1 HYPOSMOLALITY 02/10/2018 MEGHA PANDA MD Ot 250.0 0 DIAB TJ WO COMPL, TYPE II OR UNSPEC TY 02/10/2018 MEGHA PANDA MD Ot 276.8 HYPOPOTASSEMIA 02/10/2018 MEGHA PANDA MD Ot 250.0 0 DIAB TJ WO COMPL, TYPE II OR UNSPEC TY 02/10/2018 MEGHA PANDA MD Ot V58.6 9 OTH MED,LT,CURRENT USE 02/10/2018 MEGHA PANDA MD Ot L03.9 0 CELLULITIS, UNSPECIFIED 02/10/2018 MEGHA PANDA MD Ot Z51.8 1 ENCOUNTER FOR THERAPEUTIC DRUG LEVEL MON 02/10/2018 MEGHA PANDA MD Ot Z79.2 [facility] (CURRENT) USE OF ANTIBIOTICS 02/10/2018 AGATHA ESPINAL Ot N39.0 URINARY TRACT INFECTION, SITE NOT SPECIF 02/10/2018 DANY ESPINAL DO Ot E03.9 HYPOTHYROIDISM, UNSPECIFIED 02/10/2018 DANY ESPINAL DO Ot I48.2 CHRONIC ATRIAL FIBRILLATION 02/10/2018 DANY ESPINAL DO Ot N39.0 URINARY TRACT INFECTION, SITE NOT SPECIF 02/10/2018 DANY ESPINAL DO Ot N39.0 URINARY TRACT INFECTION, SITE NOT SPECIF 02/10/2018 Ot 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 02/10/2018 Ot N28.1 CYST OF KIDNEY, ACQUIRED 02/10/2018 JOSELUIS BORGES Ot Z 08 ENCNTR FOR FOLLOW-UP EXAM AFTER TRTMT FO 02/10/2018 JOSELUIS BORGES Ot Z79.01 ENVIRONMENTAL DIRECTOR (CURRENT) USE OF ANTICOAGULANT 02/10/2018 BORGES, HILAH S COMMUNITY HEALTH DIRECTOR Ot Z85.3 PERSONAL HISTORY OF MALIGNANT NEOPLASM O 02/10/2018 JOSELUIS BORGES COMMUNITY HEALTH DIRECTOR Ot Z86.718 PERSONAL HISTORY OF OTHER VENOUS THROMBO 02/10/2018 JOSELUIS BORGES COMMUNITY HEALTH DIRECTOR Ot Z90.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 02/10/2018 JOSELUIS BORGES COMMUNITY HEALTH DIRECTOR Ot Z12.31 ENCNTR SCREEN MAMMOGRAM FOR MALIGNANT NE 02/10/2018 DANY ESPINAL DO Ot 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 02/10/2018 DANY ESPINAL DO Ot 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, 02/10/2018 JOSELUIS BORGES COMMUNITY HEALTH DIRECTOR Ot R92.8 OTH ABN AND INCONCLUSIVE FINDINGS ON DX 02/10/2018 SHEELA BANUELOS MD Ot E78. 2 MIXED HYPERLIPIDEMIA 02/10/2018 SHEELA BANUELOS MD Ot G25. 0 ESSENTIAL TREMOR 02/10/2018 SHEELA BANUELOS MD, Ot I10 ESSENTIAL (PRIMARY) HYPERTENSION 02/10/2018 SHEELA BANUELOS MD Ot I48. 0 PAROXYSMAL ATRIAL FIBRILLATION 02/10/2018 SHEELA BANUELOS MD Ot R07. 9 CHEST PAIN, UNSPECIFIED 02/10/2018 MARSHA GALLOWAYM, FRANCK Stanton Ot M79.604 PAIN IN RIGHT LEG 02/10/2018 AGATHA ESPINAL COMMUNITY HEALTH DIRECTOR Ot N28.1 CYST OF KIDNEY, ACQUIRED 02/10/2018 AGATHA ESPINAL COMMUNITY HEALTH DIRECTOR Ot R10.2 PELVIC AND PERINEAL PAIN 02/10/2018 INDIA MOULTON, ERVIN Lanier Ot N28.1 CYST OF KIDNEY, ACQUIRED 02/10/2018 KO KENDRICK DO Ot M51.36 OTHER INTERVERTEBRAL DISC DEGENERATION, 02/10/2018 FAITH TURK Ot R92.8 OTH ABN AND INCONCLUSIVE FINDINGS ON DX 02/10/2018 FAITH TURK Ot E11.9 TYPE 2 DIABETES MELLITUS WITHOUT COMPLIC 02/10/2018 FAITH TURK Ot E78.5 HYPERLIPIDEMIA, UNSPECIFIED 02/10/2018 FAITH TURK Ot I10 ESSENTIAL (PRIMARY) HYPERTENSION 02/10/2018 FAIHT TURK Ot Z08 ENCNTR FOR FOLLOW-UP EXAM AFTER TRTMT FO 02/10/2018 FAITH TURK Ot Z79.01 ENVIRONMENTAL DIRECTOR (CURRENT) USE OF ANTICOAGULANT 02/10/2018 FAITH TURK Ot Z79.4 [facility] (CURRENT) USE OF INSULIN 02/10/2018 FAITH TURK Ot Z85.3 PERSONAL HISTORY OF MALIGNANT NEOPLASM O 02/10/2018 FAITH TURK Ot Z86.718 PERSONAL HISTORY OF OTHER VENOUS THROMBO 02/10/2018 FAITH TURK Ot Z90.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 02/10/2018 FAITH TURK Ot Z92.21 PERSONAL HISTORY OF ANTINEOPLASTIC CHEMO 02/10/2018 REDD BORGESCAITIE Devi COMMUNITY HEALTH DIRECTOR Ot R92.8 OTH ABN AND INCONCLUSIVE FINDINGS ON DX 02/11/2018 JOSELUIS BORGES Marito COMMUNITY HEALTH DIRECTOR Ot C50.911 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 02/11/2018 REDD BORGESCAITIE S COMMUNITY HEALTH DIRECTOR Ot 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 02/11/2018 REDD BORGESCAITIE Devi COMMUNITY HEALTH DIRECTOR Ot C50.911 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 02/11/2018 BORGES JOSELUIS S COMMUNITY HEALTH DIRECTOR Ot 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 02/21/2018 BORGES JOSELUIS S COMMUNITY HEALTH DIRECTOR Ot C50.911 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 02/21/2018 REDD BORGESCAITIE S COMMUNITY HEALTH DIRECTOR Ot 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 02/21/2018 BORGES JOSELUIS S COMMUNITY HEALTH DIRECTOR Ot C50.911 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 02/21/2018 REDD BORGESCAITIE S COMMUNITY HEALTH DIRECTOR Ot 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 03/08/2018 DEEPA MOULTON, YANG Devi Ot E11. 9 TYPE 2 DIABETES MELLITUS WITHOUT COMPLIC 03/08/2018 YANG ARENAS MD Ot E78. 00 PURE HYPERCHOLESTEROLEMIA, UNSPECIFIED 03/08/2018 DEEPA MOULTON, YANG Devi Ot F03. 90 UNSPECIFIED DEMENTIA WITHOUT BEHAVIORAL 03/08/2018 DEEPA MOULTON, YANG Devi Ot F32. 9 MAJOR DEPRESSIVE DISORDER, SINGLE EPISOD 03/08/2018 YANG ARENAS MD Ot F41. 9 ANXIETY DISORDER, UNSPECIFIED 03/08/2018 DEEPA MOULTON, YANG Devi Ot I10 ESSENTIAL (PRIMARY) HYPERTENSION 03/08/2018 DEEPAYANG INGRAM MD Ot I25. 10 ATHSCL HEART DISEASE OF [place] CORONARY 03/08/2018 YANG ARENAS MD Ot I48. 91 UNSPECIFIED ATRIAL FIBRILLATION 03/08/2018 YANG ARENAS MD Ot J44. 9 CHRONIC OBSTRUCTIVE PULMONARY DISEASE, U 03/08/2018 YANG ARENAS MD Ot R04. 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 4 [facility] (CURRENT) USE OF INSULIN 03/08/2018 YANG ARENAS MD Ot Z85. 3 PERSONAL HISTORY OF MALIGNANT NEOPLASM O 03/08/2018 YANG ARENAS MD Ot Z86.711 PERSONAL HISTORY OF PULMONARY EMBOLISM 03/08/2018 YANG ARENAS MD Ot Z86.718 PERSONAL HISTORY OF OTHER VENOUS THROMBO 03/08/2018 YANG ARENAS MD Ot Z87. 01 PERSONAL HISTORY OF PNEUMONIA (RECURRENT 03/08/2018 YANG ARENAS MD Ot Z87. 09 PERSONAL HISTORY OF OTHER DISEASES OF TH 03/08/2018 YANG ARENAS MD Ot Z87. 19 PERSONAL HISTORY OF OTHER DISEASES OF TH 03/08/2018 YANG ARENAS MD Ot Z87. 81 PERSONAL HISTORY OF (HEALED) TRAUMATIC F 03/08/2018 YANG ARENAS MD Ot Z87.828 PERSONAL HISTORY OF OTH (HEALED) PHYSICA 03/08/2018 YANG ARENAS MD Ot Z88. 0 ALLERGY STATUS TO PENICILLIN 03/08/2018 YANG ARENAS MD Ot Z88. 2 ALLERGY STATUS TO SULFONAMIDES STATUS 03/08/2018 YANG ARENAS MD Ot Z88. 5 ALLERGY STATUS TO NARCOTIC AGENT STATUS 03/08/2018 YANG ARENAS MD Ot Z90. 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 03/08/2018 YANG ARENAS MD Ot Z90. 49 ACQUIRED ABSENCE OF OTHER SPECIFIED PART 03/08/2018 YANG ARENAS MD Ot Z90.710 ACQUIRED ABSENCE OF BOTH CERVIX AND UTER 03/08/2018 YANG ARENAS MD Ot Z90. 89 ACQUIRED ABSENCE OF OTHER ORGANS 03/08/2018 Ot 611.89 OTH ER SPECIFIED DISORDERS OF BREAST 03/08/2018 Ot V67.09 PATRICK CORNELIO FOLLOW- UP, OTHER SURGERY 03/08/2018 FARZAD MOULTON, MEGHA Ku Ot 786.2 COUGH 03/08/2018 Ot 729.5 PAIN IN LIMB 03/08/2018 Ot V12.51 HX- VENOUS THROMBOSIS EMBOLISM 03/08/2018 FAITH TURK Ot 174.9 MALIGN NEOPL BREAST NOS 03/08/2018 MEGHA PANDA MD Ot 453.4 0 ACUTE VENOUS EMBOLISM THROMBOSIS UNSP 03/08/2018 FAITH TURK Ot V10.3 HX OF BREAST MALIGNANCY 03/08/2018 FAITH TURK Ot V67.9 FOLLOW-UP EXAM NOS 03/08/2018 ERVIN OSBORNE MD Ot 593.9 RENAL URETERAL DIS NOS 03/08/2018 ERVIN OSBORNE MD Ot 753.1 0 CYSTIC KIDNEY DISEASE, UNSPECIFIED 03/08/2018 JOSELUIS BORGES COMMUNITY HEALTH DIRECTOR Ot 174.9 MALIGN NEOPL BREAST NOS 03/08/2018 JOSELUIS BORGES COMMUNITY HEALTH DIRECTOR Ot V67.9 FOLLOW-UP EXAM NOS 03/08/2018 ERVIN OSBORNE MD Ot 593.2 CYST OF KIDNEY, ACQUIRED 03/08/2018 NIRAV MOULTON, ARI Ot V72.84 EXAM PRE-OPERATIVE NOS 03/08/2018 ERVIN OSBORNE MD Ot 593.2 CYST OF KIDNEY, ACQUIRED 03/08/2018 FAITH TURK Ot 174.9 MALIGN NEOPL BREAST NOS 03/08/2018 FAITH TURK Ot V67.9 FOLLOW-UP EXAM NOS 03/08/2018 FAITH TURK Ot 793.80 UNSPEC ABNORMAL MAMMOGRAM 03/08/2018 RAVEN LEO WILL CALL ORDER CLERK Ot 729.5 PAIN IN LIMB 03/08/2018 RAVEN LEO WILL CALL ORDER CLERK Ot 786.05 SHORTNESS OF BREATH 03/08/2018 ERVIN OSBORNE MD Ot 593.2 CYST OF KIDNEY, ACQUIRED 03/08/2018 MEGHA PANDA MD Ot 428.0 CONGESTIVE HEART FAILURE NOS 03/08/2018 ERVIN OSBORNE MD Ot 753.1 0 CYSTIC KIDNEY DISEASE, UNSPECIFIED 03/08/2018 FAITH TURK Ot V10.3 HX OF BREAST MALIGNANCY 03/08/2018 FAITH TURK Ot V12.51 HX- VENOUS THROMBOSIS EMBOLISM 03/08/2018 FAITH TURK Ot V12.55 PERSONAL HISTORY OF PULMONARY EMBOLISM 03/08/2018 FAITH TURK Ot V45.71 ACQUIRED ABSENCE OF BREAST AND NIPPLE 03/08/2018 FAITH TURK Ot V58.61 ANTICOAGULANTS,LT,CURRENT USE 03/08/2018 FAITH TURK Ot V58.69 OTH MED,LT,CURRENT USE 03/08/2018 FAITH TURK Ot V67.2 CHEMOTHERAPY FOLLOW-UP 03/08/2018 FAITH TURK Evy Ot 174.9 MALIGN NEOPL BREAST NOS 03/08/2018 MEGHA PANDA MD Ot 276.1 HYPOSMOLALITY 03/08/2018 MEGHA PANDA MD Ot 250.0 0 DIAB TJ WO COMPL, TYPE II OR UNSPEC TY 03/08/2018 MEGHA PANDA MD Ot 276.8 HYPOPOTASSEMIA 03/08/2018 MEGHA PANDA MD Ot 250.0 0 DIAB TJ WO COMPL, TYPE II OR UNSPEC TY 03/08/2018 MEGHA PANDA MD Ot V58.6 9 OTH MED,LT,CURRENT USE 03/08/2018 MEGHA PANDA MD Ot L03.9 0 CELLULITIS, UNSPECIFIED 03/08/2018 MEGHA PANDA MD Ot Z51.8 1 ENCOUNTER FOR THERAPEUTIC DRUG LEVEL MON 03/08/2018 MEGHA PANDA MD Ot Z79.2 [facility] (CURRENT) USE OF ANTIBIOTICS 03/08/2018 AGATHA ESPINAL Ot N39.0 URINARY TRACT INFECTION, SITE NOT SPECIF 03/08/2018 DANY ESPINAL DO Ot E03.9 HYPOTHYROIDISM, UNSPECIFIED 03/08/2018 DANY ESPINAL DO Ot I48.2 CHRONIC ATRIAL FIBRILLATION 03/08/2018 DANY ESPINAL DO Ot N39.0 URINARY TRACT INFECTION, SITE NOT SPECIF 03/08/2018 DANY ESPINAL DO Ot N39.0 URINARY TRACT INFECTION, SITE NOT SPECIF 03/08/2018 Ot 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 03/08/2018 Ot N28.1 CYST OF KIDNEY, ACQUIRED 03/08/2018 JOSELUIS BORGES Ot Z 08 ENCNTR FOR FOLLOW-UP EXAM AFTER TRTMT FO 03/08/2018 JOSELUIS BORGES COMMUNITY HEALTH DIRECTOR Ot Z79.01 ENVIRONMENTAL DIRECTOR (CURRENT) USE OF ANTICOAGULANT 03/08/2018 JOSELUIS BORGES COMMUNITY HEALTH DIRECTOR Ot Z85.3 PERSONAL HISTORY OF MALIGNANT NEOPLASM O 03/08/2018 JOSELUIS BORGES COMMUNITY HEALTH DIRECTOR Ot Z86.718 PERSONAL HISTORY OF OTHER VENOUS THROMBO 03/08/2018 JOSELUIS BORGESP Ot Z90.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 03/08/2018 JOSELUIS BORGES COMMUNITY HEALTH DIRECTOR Ot Z12.31 ENCNTR SCREEN MAMMOGRAM FOR MALIGNANT NE 03/08/2018 DANY ESPINAL DO Ot 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 03/08/2018 DANY ESPINAL DO Ot 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, 03/08/2018 BORGESJOSELUIS Devi JASON Ot R92.8 OTH ABN AND INCONCLUSIVE FINDINGS ON DX 03/08/2018 SHEELA BANUELOS MD Ot E78. 2 MIXED HYPERLIPIDEMIA 03/08/2018 SHEELA BANUELOS MD Ot G25. 0 ESSENTIAL TREMOR 03/08/2018 SHEELA BANUELOS MD Ot I10 ESSENTIAL (PRIMARY) HYPERTENSION 03/08/2018 SHEELA BANUELOS MD Ot I48. 0 PAROXYSMAL ATRIAL FIBRILLATION 03/08/2018 SHEELA BANUELOS MD Ot R07. 9 CHEST PAIN, UNSPECIFIED 03/08/2018 MARSHA GALLOWAYM, FRANCK Stanton Ot M79.604 PAIN IN RIGHT LEG 03/08/2018 AGATHA ESPINAL COMMUNITY HEALTH DIRECTOR Ot N28.1 CYST OF KIDNEY, ACQUIRED 03/08/2018 AGATHA ESPINAL COMMUNITY HEALTH DIRECTOR Ot R10.2 PELVIC AND PERINEAL PAIN 03/08/2018 [...] TRTMT FO 03/08/2018 FAITH TURK Ot Z79.01 ENVIRONMENTAL DIRECTOR (CURRENT) USE OF ANTICOAGULANT 03/08/2018 FAITH TURK Ot Z79.4 ENVIRONMENTAL DIRECTOR (CURRENT) USE OF INSULIN 03/08/2018 FAITH TURK Ot Z85.3 PERSONAL HISTORY OF MALIGNANT NEOPLASM O 03/08/2018 FAITH TURK Ot Z86.718 PERSONAL HISTORY OF OTHER VENOUS THROMBO 03/08/2018 FAITH TURK Ot Z90.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 03/08/2018 FAITH TURK Ot Z92.21 PERSONAL HISTORY OF ANTINEOPLASTIC CHEMO 03/08/2018 JOSELUIS BORGES COMMUNITY HEALTH DIRECTOR Ot C50.911 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 03/08/2018 JOSELUIS BORGESP Ot 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 03/08/2018 DEEPA MOULTON, YANG Devi Ot E11. 9 TYPE 2 DIABETES MELLITUS WITHOUT COMPLIC 03/08/2018 DEEPA MOULTON, YANG Devi Ot E78. 00 PURE HYPERCHOLESTEROLEMIA, UNSPECIFIED 03/08/2018 DEEPA MOULTON, YANG Devi Ot F03. 90 UNSPECIFIED DEMENTIA WITHOUT BEHAVIORAL 03/08/2018 DEEPA MOULTON, YANG Devi Ot F32. 9 MAJOR DEPRESSIVE DISORDER, SINGLE EPISOD 03/08/2018 DEEPA MOULTON, YANG Devi Ot F41. 9 ANXIETY DISORDER, UNSPECIFIED 03/08/2018 YANG ARENAS MD Ot G47. 30 SLEEP APNEA, UNSPECIFIED 03/08/2018 DEEPA MOULTON, YANG Devi Ot I10 ESSENTIAL (PRIMARY) HYPERTENSION 03/08/2018 YANG ARENAS MD Ot I25. 10 ATHSCL HEART DISEASE OF [place] CORONARY 03/08/2018 YANG ARENAS MD Ot I48. 91 UNSPECIFIED ATRIAL FIBRILLATION 03/08/2018 DEEPA MOULTON, YANG Devi Ot J44. 9 CHRONIC OBSTRUCTIVE PULMONARY DISEASE, U 03/08/2018 YANG ARENAS MD Ot R04. 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 01 [facility] (CURRENT) USE OF ANTICOAGULANT 03/08/2018 YANG ARENAS MD Ot Z79. 4 [facility] (CURRENT) USE OF INSULIN 03/08/2018 YANG ARENAS MD Ot Z85. 3 PERSONAL HISTORY OF MALIGNANT NEOPLASM O 03/08/2018 YANG ARENAS MD Ot Z86.711 PERSONAL HISTORY OF PULMONARY EMBOLISM 03/08/2018 YANG ARENAS MD Ot Z86.718 PERSONAL HISTORY OF OTHER VENOUS THROMBO 03/08/2018 YANG ARENAS MD Ot Z87. 19 PERSONAL HISTORY OF OTHER DISEASES OF TH 03/08/2018 YANG ARENAS MD Ot Z87. 2 PERSONAL HISTORY OF DISEASES OF THE SKIN 03/08/2018 YANG ARENAS MD Ot Z87.448 PERSONAL HISTORY OF OTHER DISEASES OF UR 03/08/2018 YANG ARENAS MD Ot Z87. 81 PERSONAL HISTORY OF (HEALED) TRAUMATIC F 03/08/2018 YANG ARENAS MD Ot Z87.828 PERSONAL HISTORY OF OTH (HEALED) PHYSICA 03/08/2018 YANG ARENAS MD Ot Z88. 0 ALLERGY STATUS TO PENICILLIN 03/08/2018 YANG ARENAS MD Ot Z88. 2 ALLERGY STATUS TO SULFONAMIDES STATUS 03/08/2018 YANG ARENAS MD Ot Z88. 5 ALLERGY STATUS TO NARCOTIC AGENT STATUS 03/08/2018 YANG ARENAS MD Ot Z88. 8 ALLERGY STATUS TO OTH DRUG/MEDS/BIOL SUB 03/08/2018 YANG ARENAS MD Ot Z90. 10 ACQUIRED ABSENCE OF UNSPECIFIED BREAST A 03/08/2018 YANG ARENAS MD Ot Z90. 49 ACQUIRED ABSENCE OF OTHER SPECIFIED PART 03/08/2018 YANG ARENAS MD Ot Z90.710 ACQUIRED ABSENCE OF BOTH CERVIX AND UTER 03/08/2018 YANG ARENAS MD Ot Z90. 89 ACQUIRED ABSENCE OF OTHER ORGANS 03/08/2018 YANG ARENAS MD Ot Z98.890 OTHER SPECIFIED POSTPROCEDURAL STATES 03/10/2018 YANG ARENAS MD Ot E11. 9 TYPE 2 DIABETES MELLITUS WITHOUT COMPLIC 03/10/2018 YANG ARENAS MD Ot E78. 00 PURE HYPERCHOLESTEROLEMIA, UNSPECIFIED 03/10/2018 YANG ARENAS MD Ot F03. 90 UNSPECIFIED DEMENTIA WITHOUT BEHAVIORAL 03/10/2018 YANG ARENAS MD Ot F32. 9 MAJOR DEPRESSIVE DISORDER, SINGLE EPISOD 03/10/2018 DEEPA MOULTON, YANG Devi Ot F41. 9 ANXIETY DISORDER, UNSPECIFIED 03/10/2018 DEEPA MOULTON, YANG Devi Ot I10 ESSENTIAL (PRIMARY) HYPERTENSION 03/10/2018 DEEPA MOULTON, YANG Devi Ot I25. 10 ATHSCL HEART DISEASE OF [place] CORONARY 03/10/2018 DEEPA MOULTON, YANG Devi Ot I48. 91 UNSPECIFIED ATRIAL FIBRILLATION 03/10/2018 DEEPA MOULTON, YANG Devi Ot J44. 9 CHRONIC OBSTRUCTIVE PULMONARY DISEASE, U 03/10/2018 DEEPA MOULTON, YANG Devi Ot R04. 0 EPISTAXIS 03/10/2018 DEEPA MOULTON, YANG Devi Ot Z79. 01 ENVIRONMENTAL DIRECTOR (CURRENT) USE OF ANTICOAGULANT 03/10/2018 YANG ARENAS MD Ot Z79. 4 ENVIRONMENTAL DIRECTOR (CURRENT) USE OF INSULIN 03/10/2018 YANG ARENAS MD Ot Z85. 3 PERSONAL HISTORY OF MALIGNANT NEOPLASM O 03/10/2018 YANG ARENAS MD Ot Z86.711 PERSONAL HISTORY OF PULMONARY EMBOLISM 03/10/2018 YANG ARENAS MD Ot Z86.718 PERSONAL HISTORY OF OTHER VENOUS THROMBO 03/10/2018 EDEPA MOULTON, YANG Devi Ot Z87. 01 PERSONAL HISTORY OF PNEUMONIA (RECURRENT 03/10/2018 YANG ARENAS MD Ot Z87. 09 PERSONAL HISTORY OF OTHER DISEASES OF TH 03/10/2018 YANG ARENAS MD Ot Z87. 19 PERSONAL HISTORY OF OTHER DISEASES OF TH 03/10/2018 YANG ARENAS MD Ot Z87. 81 PERSONAL HISTORY OF (HEALED) TRAUMATIC F 03/10/2018 YANG ARENAS MD Ot Z87.828 PERSONAL HISTORY OF OTH (HEALED) PHYSICA 03/10/2018 DEEPA MOULTON, YANG Devi Ot Z88. 0 ALLERGY STATUS TO PENICILLIN 03/10/2018 YANG ARENAS MD Ot Z88. 2 ALLERGY STATUS TO SULFONAMIDES STATUS 03/10/2018 YANG ARENAS MD Ot Z88. 5 ALLERGY STATUS TO NARCOTIC AGENT STATUS 03/10/2018 DEEPA MOULTON, YANG Devi Ot Z90. 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 03/10/2018 YANG ARENAS MD Ot Z90. 49 ACQUIRED ABSENCE OF OTHER SPECIFIED PART 03/10/2018 YANG ARENAS MD Ot Z90.710 ACQUIRED ABSENCE OF BOTH CERVIX AND UTER 03/10/2018 YANG ARENAS MD Ot Z90. 89 ACQUIRED ABSENCE OF OTHER ORGANS 03/10/2018 DEEPA MOULTON, YANG Devi Ot E11. 9 TYPE 2 DIABETES MELLITUS WITHOUT COMPLIC 03/10/2018 YANG ARENAS MD Ot E78. 00 PURE HYPERCHOLESTEROLEMIA, UNSPECIFIED 03/10/2018 DEEPA MOULTON, YANG Devi Ot F03. 90 UNSPECIFIED DEMENTIA WITHOUT BEHAVIORAL 03/10/2018 DEEPA MOULTON, YANG Devi Ot F32. 9 MAJOR DEPRESSIVE DISORDER, SINGLE EPISOD 03/10/2018 DEEPA MOULTON, YANG Devi Ot F41. 9 ANXIETY DISORDER, UNSPECIFIED 03/10/2018 YANG ARENAS MD Ot G47. 30 SLEEP APNEA, UNSPECIFIED 03/10/2018 YANG ARENAS MD Ot I10 ESSENTIAL (PRIMARY) HYPERTENSION 03/10/2018 YANG ARENAS MD Ot I25. 10 ATHSCL HEART DISEASE OF [place] CORONARY 03/10/2018 YANG ARENAS MD Ot I48. 91 UNSPECIFIED ATRIAL FIBRILLATION 03/10/2018 YANG ARENAS MD Ot J44. 9 CHRONIC OBSTRUCTIVE PULMONARY DISEASE, U 03/10/2018 YANG ARENAS MD Ot R04. 0 EPISTAXIS 03/10/2018 YANG ARENAS MD Ot Z79. 01 ENVIRONMENTAL DIRECTOR (CURRENT) USE OF ANTICOAGULANT 03/10/2018 YANG ARENAS MD Ot Z79. 4 [facility] (CURRENT) USE OF INSULIN 03/10/2018 YANG ARENAS MD Ot Z85. 3 PERSONAL HISTORY OF MALIGNANT NEOPLASM O 03/10/2018 YANG ARENAS MD Ot Z86.711 PERSONAL HISTORY OF PULMONARY EMBOLISM 03/10/2018 YANG ARENAS MD Ot Z86.718 PERSONAL HISTORY OF OTHER VENOUS THROMBO 03/10/2018 YANG ARENAS MD Ot Z87. 19 PERSONAL HISTORY OF OTHER DISEASES OF TH 03/10/2018 YANG ARENAS MD Ot Z87. 2 PERSONAL HISTORY OF DISEASES OF THE SKIN 03/10/2018 YANG ARENAS MD Ot Z87.448 PERSONAL HISTORY OF OTHER DISEASES OF UR 03/10/2018 YANG ARENAS MD Ot Z87. 81 PERSONAL HISTORY OF (HEALED) TRAUMATIC F 03/10/2018 DEEPA MOULTON, YANG Devi Ot Z87.828 PERSONAL HISTORY OF OTH (HEALED) PHYSICA 03/10/2018 DEEPA MOULTON, YANG Devi Ot Z88. 0 ALLERGY STATUS TO PENICILLIN 03/10/2018 DEEPA MOULTON, YANG Marito Ot Z88. 2 ALLERGY STATUS TO SULFONAMIDES STATUS 03/10/2018 DEEPA MOULTON, YANG Marito Ot Z88. 5 ALLERGY STATUS TO NARCOTIC AGENT STATUS 03/10/2018 DEEPA MOULTON, YANG Marito Ot Z88. 8 ALLERGY STATUS TO OTH DRUG/MEDS/BIOL SUB 03/10/2018 DEEPA MOULTON, YANG Devi Ot Z90. 10 ACQUIRED ABSENCE OF UNSPECIFIED BREAST A 03/10/2018 DEEPA MOULTON, YANG Marito Ot Z90. 49 ACQUIRED ABSENCE OF OTHER SPECIFIED PART 03/10/2018 DEEPA MOULTON, YANG Mraito Ot Z90.710 ACQUIRED ABSENCE OF BOTH CERVIX AND UTER 03/10/2018 DEEPA MOULTON, YANG Marito Ot Z90. 89 ACQUIRED ABSENCE OF OTHER ORGANS 03/10/2018 DEEPA MOULTON, YANG Marito Ot Z98.890 OTHER SPECIFIED POSTPROCEDURAL STATES 03/10/2018 DEEPA MOULTON, YANG Marito Ot E11. 9 TYPE 2 DIABETES MELLITUS WITHOUT COMPLIC 03/10/2018 DEEPA MOULTON, YANG Marito Ot E78. 00 PURE HYPERCHOLESTEROLEMIA, UNSPECIFIED 03/10/2018 DEEPA MOULTON, YANG Marito Ot F03. 90 UNSPECIFIED DEMENTIA WITHOUT BEHAVIORAL 03/10/2018 DEEPA MOULTON, YANG Marito Ot F32. 9 MAJOR DEPRESSIVE DISORDER, SINGLE EPISOD 03/10/2018 DEEPA MOULTON, YANG Marito Ot F41. 9 ANXIETY DISORDER, UNSPECIFIED 03/10/2018 DEEPA MOULTON, YANG Mairto Ot G47. 30 SLEEP APNEA, UNSPECIFIED 03/10/2018 DEEPA MOULTON, YANG Marito Ot I10 ESSENTIAL (PRIMARY) HYPERTENSION 03/10/2018 DEEPA MOULTON, YANG Marito Ot I25. 10 ATHSCL HEART DISEASE OF [place] CORONARY 03/10/2018 DEEPA MOULTON, YANG Devi Ot I48. 91 UNSPECIFIED ATRIAL FIBRILLATION 03/10/2018 DEEPA MOULTON, YANG Devi Ot J44. 9 CHRONIC OBSTRUCTIVE PULMONARY DISEASE, U 03/10/2018 DEEPA MOULTON, YANG Devi Ot R04. 0 EPISTAXIS 03/10/2018 YANG ARENAS MD Ot Z79. 01 [facility] (CURRENT) USE OF ANTICOAGULANT 03/10/2018 YANG ARENAS MD Ot Z79. 4 ENVIRONMENTAL DIRECTOR (CURRENT) USE OF INSULIN 03/10/2018 YANG ARENAS MD Ot Z85. 3 PERSONAL HISTORY OF MALIGNANT NEOPLASM O 03/10/2018 YANG ARENAS MD Ot Z86.711 PERSONAL HISTORY OF PULMONARY EMBOLISM 03/10/2018 YANG ARENAS MD Ot Z86.718 PERSONAL HISTORY OF OTHER VENOUS THROMBO 03/10/2018 YANG ARENAS MD Ot Z87. 19 PERSONAL HISTORY OF OTHER DISEASES OF TH 03/10/2018 YANG ARENAS MD Ot Z87. 2 PERSONAL HISTORY OF DISEASES OF THE SKIN 03/10/2018 YANG ARENAS MD Ot Z87.448 PERSONAL HISTORY OF OTHER DISEASES OF UR 03/10/2018 YANG ARENAS MD Ot Z87. 81 PERSONAL HISTORY OF (HEALED) TRAUMATIC F 03/10/2018 YANG ARENAS MD Ot Z87.828 PERSONAL HISTORY OF OTH (HEALED) PHYSICA 03/10/2018 YANG ARENAS MD Ot Z88. 0 ALLERGY STATUS TO PENICILLIN 03/10/2018 YANG ARENAS MD Ot Z88. 2 ALLERGY STATUS TO SULFONAMIDES STATUS 03/10/2018 YANG ARENAS MD Ot Z88. 5 ALLERGY STATUS TO NARCOTIC AGENT STATUS 03/10/2018 YANG ARENAS MD Ot Z88. 8 ALLERGY STATUS TO OTH DRUG/MEDS/BIOL SUB 03/10/2018 YANG ARENAS MD Ot Z90. 10 ACQUIRED ABSENCE OF UNSPECIFIED BREAST A 03/10/2018 YANG ARENAS MD Ot Z90. 49 ACQUIRED ABSENCE OF OTHER SPECIFIED PART 03/10/2018 YANG ARENAS MD Ot Z90.710 ACQUIRED ABSENCE OF BOTH CERVIX AND UTER 03/10/2018 YANG ARENAS MD Ot Z90. 89 ACQUIRED ABSENCE OF OTHER ORGANS 03/10/2018 YANG ARENAS MD Ot Z98.890 OTHER SPECIFIED POSTPROCEDURAL STATES 03/11/2018 BRIAN HENDRICKSON MD Ot E11.9 TYPE 2 DIABETES MELLITUS WITHOUT COMPLIC 03/11/2018 BRIAN HENDRICKSON MD Ot E78.00 PURE HYPERCHOLESTEROLEMIA, UNSPECIFIED 03/11/2018 BRIAN HENDRICKSON MD Ot E87.70 FLUID OVERLOAD, UNSPECIFIED 03/11/2018 BRIAN HENDRICKSON MD Ot F03.90 UNSPECIFIED DEMENTIA WITHOUT BEHAVIORAL 03/11/2018 BRIAN HENDRICKSON MD Ot F32.9 MAJOR DEPRESSIVE DISORDER, SINGLE EPISOD 03/11/2018 BRIAN HENDRICKSON MD Ot F41.9 ANXIETY DISORDER, UNSPECIFIED 03/11/2018 BRIAN HNEDRICKSON MD Ot G47.30 SLEEP APNEA, UNSPECIFIED 03/11/2018 BRIAN HENDRICKSON MD Ot I10 ESSENTIAL (PRIMARY) HYPERTENSION 03/11/2018 BRIAN HENDRICKSON MD Ot I25.10 ATHSCL HEART DISEASE OF [place] CORONARY 03/11/2018 BRIAN HENDRICKSON MD Ot I48.91 UNSPECIFIED ATRIAL FIBRILLATION 03/11/2018 BRIAN HENDRICKSON MD Ot J44.9 CHRONIC OBSTRUCTIVE PULMONARY DISEASE, U 03/11/2018 BRIAN HENDRICKSON MD Ot R10.13 EPIGASTRIC PAIN 03/11/2018 BRIAN HENDRICKSON MD Ot R11.2 NAUSEA WITH VOMITING, UNSPECIFIED 03/11/2018 BRIAN HENDRICKSON MD Ot Z79.01 ENVIRONMENTAL DIRECTOR (CURRENT) USE OF ANTICOAGULANT 03/11/2018 BRIAN HENDRICKSON MD Ot Z79.4 [facility] (CURRENT) USE OF INSULIN 03/11/2018 BRIAN HENDRICKSON MD Ot Z80.51 FAMILY HISTORY OF MALIGNANT NEOPLASM OF 03/11/2018 BRIAN HENDRICKSON MD Ot Z85.3 PERSONAL HISTORY OF MALIGNANT NEOPLASM O 03/11/2018 BRIAN HENDRICKSON MD Ot Z86.718 PERSONAL HISTORY OF OTHER VENOUS THROMBO 03/11/2018 BRIAN HENDRICKSON MD Ot Z87.19 PERSONAL HISTORY OF OTHER DISEASES OF TH 03/11/2018 BRIAN HENDRICKSON MD Ot Z87.440 PERSONAL HISTORY OF URINARY (TRACT) INFE 03/11/2018 BRIAN HENDRICKSON MD Ot Z88.0 ALLERGY STATUS TO PENICILLIN 03/11/2018 BRIAN HENDRICKSON MD, Ot Z88.2 ALLERGY STATUS TO SULFONAMIDES STATUS 03/11/2018 BRIAN HENDRICKSON MD, Ot Z88.5 ALLERGY STATUS TO NARCOTIC AGENT STATUS 03/11/2018 BRIAN HENDRICKSON MD Ot Z88.8 ALLERGY STATUS TO OTH DRUG/MEDS/BIOL SUB 03/11/2018 BRIAN HENDRICKSON MD Ot Z90.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 03/11/2018 BRIAN HENDRICKSON MD Ot Z90.49 ACQUIRED ABSENCE OF OTHER SPECIFIED PART 03/11/2018 BRIAN HENDRICKSON MD Ot Z90.710 ACQUIRED ABSENCE OF BOTH CERVIX AND UTER 03/11/2018 BRIAN HENDRICKSON MD Ot Z90.81 ACQUIRED ABSENCE OF SPLEEN 03/11/2018 BRIAN HENDRICKSON MD Ot Z90.89 ACQUIRED ABSENCE OF OTHER ORGANS 03/11/2018 BRIAN HENDRICKSON MD Ot Z92.21 PERSONAL HISTORY [...] MD Ot I25.10 ATHSCL HEART DISEASE OF [place] CORONARY 03/13/2018 BRIAN HENDRICKSON MD Ot I48.91 UNSPECIFIED ATRIAL FIBRILLATION 03/13/2018 BRIAN HENDRICKSON MD Ot J44.9 CHRONIC OBSTRUCTIVE PULMONARY DISEASE, U 03/13/2018 BRIAN HENDRICKSON MD, Ot R10.13 EPIGASTRIC PAIN 03/13/2018 BRIAN HENDRICKSON MD, Ot R11.2 NAUSEA WITH VOMITING, UNSPECIFIED 03/13/2018 BRIAN HENDRICKSON MD, Ot Z79.01 ENVIRONMENTAL DIRECTOR (CURRENT) USE OF ANTICOAGULANT 03/13/2018 BRIAN HENDRICKSON MD Ot Z79.4 ENVIRONMENTAL DIRECTOR (CURRENT) USE OF INSULIN 03/13/2018 BRIAN HENDRICKSON MD, Ot Z80.51 FAMILY HISTORY OF MALIGNANT NEOPLASM OF 03/13/2018 BRIAN HENDRICKSON MD, Ot Z85.3 PERSONAL HISTORY OF MALIGNANT NEOPLASM O 03/13/2018 BRIAN HENDRICKSON MD, Ot Z86.718 PERSONAL HISTORY OF OTHER VENOUS THROMBO 03/13/2018 BRIAN HENDRICKSON MD, Ot Z87.19 PERSONAL HISTORY OF OTHER DISEASES OF TH 03/13/2018 BRIAN HENDRICKSON MD, Ot Z87.440 PERSONAL HISTORY OF URINARY (TRACT) INFE 03/13/2018 BRIAN HENDRICKSON MD Ot Z88.0 ALLERGY STATUS TO PENICILLIN 03/13/2018 BRIAN HENDRICKSON MD Ot Z88.2 ALLERGY STATUS TO SULFONAMIDES STATUS 03/13/2018 BRIAN HENDRICKSON MD Ot Z88.5 ALLERGY STATUS TO NARCOTIC AGENT STATUS 03/13/2018 BRIAN HENDRICKSON MD Ot Z88.8 ALLERGY STATUS TO OTH DRUG/MEDS/BIOL SUB 03/13/2018 BRIAN HENDRICKSNO MD Ot Z90.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 03/13/2018 BRIAN HENDRICKSON MD Ot Z90.49 ACQUIRED ABSENCE OF OTHER SPECIFIED PART 03/13/2018 BRIAN HENDRICKSON MD Ot Z90.710 ACQUIRED ABSENCE OF BOTH CERVIX AND UTER 03/13/2018 BRIAN HENDRICKSON MD Ot Z90.81 ACQUIRED ABSENCE OF SPLEEN 03/13/2018 BRIAN HENDRICKSON MD Ot Z90.89 ACQUIRED ABSENCE OF OTHER ORGANS 03/13/2018 BRIAN HENDRICKSON MD T Ot Z92.21 PERSONAL HISTORY OF ANTINEOPLASTIC CHEMO 03/13/2018 FAITH TURK Evy Ot E11.9 TYPE 2 DIABETES MELLITUS WITHOUT COMPLIC 03/13/2018 FAITH TURK Evy Ot E78.5 HYPERLIPIDEMIA, UNSPECIFIED 03/13/2018 FAITH TURK Evy Ot I10 ESSENTIAL (PRIMARY) HYPERTENSION 03/13/2018 FAITH TURK Evy Ot Z08 ENCNTR FOR FOLLOW-UP EXAM AFTER TRTMT FO 03/13/2018 FAITH TURK Evy Ot Z79.01 [facility] (CURRENT) USE OF ANTICOAGULANT 03/13/2018 FAITH TURK Evy Ot Z79.4 ENVIRONMENTAL DIRECTOR (CURRENT) USE OF INSULIN 03/13/2018 FAITH TURK Evy Ot Z85.3 PERSONAL HISTORY OF MALIGNANT NEOPLASM O 03/13/2018 FAITH TURK Evy Ot Z86.718 PERSONAL HISTORY OF OTHER VENOUS THROMBO 03/13/2018 FAITH TURK Evy Ot Z90.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 03/13/2018 FAITH TURK Evy Ot Z92.21 PERSONAL HISTORY OF ANTINEOPLASTIC CHEMO 03/13/2018 KAYY MOULTON, CORBY Duncan Ot R04 .0 EPISTAXIS 03/13/2018 KAYY MOULTON, CORBY Duncan Ot Z01.818 ENCOUNTER FOR OTHER PREPROCEDURAL EXAMIN 03/13/2018 KAYY MOULTON, CORBY Duncan Ot Z88 .1 ALLERGY STATUS TO OTHER ANTIBIOTIC AGENT 03/14/2018 DEEPA MOULTON, YANG Devi Ot E11. 9 TYPE 2 DIABETES MELLITUS WITHOUT COMPLIC 03/14/2018 YANG ARENAS MD Ot E78. 00 PURE HYPERCHOLESTEROLEMIA, UNSPECIFIED 03/14/2018 YANG ARENAS MD Ot F03. 90 UNSPECIFIED DEMENTIA WITHOUT BEHAVIORAL 03/14/2018 YANG ARENAS MD Ot F32. 9 MAJOR DEPRESSIVE DISORDER, SINGLE EPISOD 03/14/2018 YANG ARENAS MD Ot F41. 9 ANXIETY DISORDER, UNSPECIFIED 03/14/2018 YANG ARENAS MD Ot I10 ESSENTIAL (PRIMARY) HYPERTENSION 03/14/2018 YANG ARENAS MD Ot I25. 10 ATHSCL HEART DISEASE OF [place] CORONARY 03/14/2018 YANG ARENAS MD Ot I48. 91 UNSPECIFIED ATRIAL FIBRILLATION 03/14/2018 YANG ARENAS MD Ot J44. 9 CHRONIC OBSTRUCTIVE PULMONARY DISEASE, U 03/14/2018 DEEPA MOULTON, YANG Devi Ot R04. 0 EPISTAXIS 03/14/2018 DEEPA MOULTON, YANG Devi Ot Z79. 01 ENVIRONMENTAL DIRECTOR (CURRENT) USE OF ANTICOAGULANT 03/14/2018 YANG ARENAS MD Ot Z79. 4 ENVIRONMENTAL DIRECTOR (CURRENT) USE OF INSULIN 03/14/2018 YANG ARENAS MD Ot Z85. 3 PERSONAL HISTORY OF MALIGNANT NEOPLASM O 03/14/2018 YANG ARENAS MD Ot Z86.711 PERSONAL HISTORY OF PULMONARY EMBOLISM 03/14/2018 YANG ARENAS MD Ot Z86.718 PERSONAL HISTORY OF OTHER VENOUS THROMBO 03/14/2018 YANG ARENAS MD Ot Z87. 01 PERSONAL HISTORY OF PNEUMONIA (RECURRENT 03/14/2018 YANG ARENAS MD Ot Z87. 09 PERSONAL HISTORY OF OTHER DISEASES OF TH 03/14/2018 YANG ARENAS MD Ot Z87. 19 PERSONAL HISTORY OF OTHER DISEASES OF 03/14/2018 YANG ARENAS MD Ot Z87. 81 PERSONAL HISTORY OF (HEALED) TRAUMATIC F 03/14/2018 YANG ARENAS MD Ot Z87.828 PERSONAL HISTORY OF OTH (HEALED) PHYSICA 03/14/2018 YANG ARENAS MD Ot Z88. 0 ALLERGY STATUS TO PENICILLIN 03/14/2018 YANG ARENAS MD Ot Z88. 2 ALLERGY STATUS TO SULFONAMIDES STATUS 03/14/2018 YANG ARENAS MD Ot Z88. 5 ALLERGY STATUS TO NARCOTIC AGENT STATUS 03/14/2018 YANG ARENAS MD Ot Z90. 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 03/14/2018 YANG ARENAS MD Ot Z90. 49 ACQUIRED ABSENCE OF OTHER SPECIFIED PART 03/14/2018 YANG ARENAS MD Ot Z90.710 ACQUIRED ABSENCE OF BOTH CERVIX AND UTER 03/14/2018 YANG ARENAS MD Ot Z90. 89 ACQUIRED ABSENCE OF OTHER ORGANS 03/14/2018 CORBY SULTANA MD Ot E11 .9 TYPE 2 DIABETES MELLITUS WITHOUT COMPLIC 03/14/2018 CORBY SULTANA MD Ot I10 ESSENTIAL (PRIMARY) HYPERTENSION 03/14/2018 CORBY SULTANA MD Ot I48.91 UNSPECIFIED ATRIAL FIBRILLATION 03/14/2018 CORBY SULTANA MD, Ot K21 .9 GASTRO-ESOPHAGEAL REFLUX DISEASE WITHOUT 03/14/2018 CORBY SULTANA MD Ot R04 .0 EPISTAXIS 03/14/2018 CORBY SULTANA MD Ot Z79.01 ENVIRONMENTAL DIRECTOR (CURRENT) USE OF ANTICOAGULANT 03/14/2018 CORBY SULTANA MD Ot Z79 .4 ENVIRONMENTAL DIRECTOR (CURRENT) USE OF INSULIN 03/14/2018 CORBY SULTANA MD Ot Z79.899 OTHER ENVIRONMENTAL DIRECTOR (CURRENT) DRUG THERAPY 03/14/2018 CORBY SULTANA MD Ot Z85 .3 PERSONAL HISTORY OF MALIGNANT NEOPLASM O 03/14/2018 CORBY SULTANA MD, Ot R04 .0 EPISTAXIS 03/14/2018 CORBY SULTANA MD Ot Z01.818 ENCOUNTER FOR OTHER PREPROCEDURAL EXAMIN 03/14/2018 CORBY SULTANA MD Ot Z88 .1 ALLERGY STATUS TO OTHER ANTIBIOTIC AGENT 03/14/2018 CORBY SULTANA MD, Ot R04 .0 EPISTAXIS 03/14/2018 CORBY SULTANA MD Ot Z01.818 ENCOUNTER FOR OTHER PREPROCEDURAL EXAMIN 03/14/2018 CORBY SULTANA MD Ot Z88 .1 ALLERGY STATUS TO OTHER ANTIBIOTIC AGENT 03/16/2018 SARAH DO NELLY K Ot E11.9 TYPE 2 DIABETES MELLITUS WITHOUT COMPLIC 03/16/2018 SARAH CHAUHAN NELLY K Ot E78.00 PURE HYPERCHOLESTEROLEMIA, UNSPECIFIED 03/16/2018 SARAH DO NELLY K Ot F03.90 UNSPECIFIED DEMENTIA WITHOUT BEHAVIORAL 03/16/2018 SARAH CHAUHAN NELLY K Ot F32.9 MAJOR DEPRESSIVE DISORDER, SINGLE EPISOD 03/16/2018 SARAH CHAUHAN NELLY K Ot F41.9 ANXIETY DISORDER, UNSPECIFIED 03/16/2018 SARAH DO NELLY K Ot G47.30 SLEEP APNEA, UNSPECIFIED 03/16/2018 SARAH DO NELLY K Ot G89.18 OTHER ACUTE POSTPROCEDURAL PAIN 03/16/2018 SARAH DO NELLY K Ot I10 ESSENTIAL (PRIMARY) HYPERTENSION 03/16/2018 SARAH CHAUHAN NELLY K Ot I25.10 ATHSCL HEART DISEASE OF [place] CORONARY 03/16/2018 SARAH CHAUHAN NELLY K Ot I48.91 UNSPECIFIED ATRIAL FIBRILLATION 03/16/2018 CELI SMITH DOA K Ot J31.0 CHRONIC RHINITIS 03/16/2018 SARAH DO, NELLY K Ot J44.9 CHRONIC OBSTRUCTIVE PULMONARY DISEASE, U 03/16/2018 SARAH NELLY Ot Z79.4 ENVIRONMENTAL DIRECTOR (CURRENT) USE OF INSULIN 03/16/2018 NELLY SMITH DO Ot Z80.51 FAMILY HISTORY OF MALIGNANT NEOPLASM OF 03/16/2018 SARAH CHAUHANCELIA Cricket Ot Z85.3 PERSONAL HISTORY OF MALIGNANT NEOPLASM O 03/16/2018 SARAH CELIA Cricket Ot Z86.718 PERSONAL HISTORY OF OTHER VENOUS THROMBO 03/16/2018 NELLY SMITH DO Ot Z87.01 PERSONAL HISTORY OF PNEUMONIA (RECURRENT 03/16/2018 SARAH NELLY Ot Z87.19 PERSONAL HISTORY OF OTHER DISEASES OF TH 03/16/2018 SARAH NELLY Ot Z87.440 PERSONAL HISTORY OF URINARY (TRACT) INFE 03/16/2018 NELLY SMITH DO Ot Z88.0 ALLERGY STATUS TO PENICILLIN 03/16/2018 NELLY SMITH DO Ot Z88.2 ALLERGY STATUS TO SULFONAMIDES STATUS 03/16/2018 NELLY SMITH DO Ot Z88.5 ALLERGY STATUS TO NARCOTIC AGENT STATUS 03/16/2018 SARAH NELLY CHAUHAN Ot Z88.8 ALLERGY STATUS TO OTH DRUG/MEDS/BIOL SUB 03/16/2018 CELI SMITH DOA Cricket Ot Z90.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 03/16/2018 NELLY SMITH DO Ot Z90.49 ACQUIRED ABSENCE OF OTHER SPECIFIED PART 03/16/2018 NELLY SMITH DO Ot Z90.710 ACQUIRED ABSENCE OF BOTH CERVIX AND UTER 03/16/2018 NELLY SMITH DO Ot Z90.81 ACQUIRED ABSENCE OF SPLEEN 03/16/2018 NELLY SMITH DO Ot Z90.89 ACQUIRED ABSENCE OF OTHER ORGANS 03/16/2018 NELLY SMITH DO Ot Z98.890 OTHER SPECIFIED POSTPROCEDURAL STATES 03/18/2018 NELLY SMITH DO Ot E11.9 TYPE 2 DIABETES MELLITUS WITHOUT COMPLIC 03/18/2018 NELLY SMITH DO Ot E78.00 PURE HYPERCHOLESTEROLEMIA, UNSPECIFIED 03/18/2018 NELLY SMITH DO Ot F03.90 UNSPECIFIED DEMENTIA WITHOUT BEHAVIORAL 03/18/2018 NELLY SMITH DO Ot F32.9 MAJOR DEPRESSIVE DISORDER, SINGLE EPISOD 03/18/2018 SARAH NELLY Cricket Ot F41.9 ANXIETY DISORDER, UNSPECIFIED 03/18/2018 SARAH NELLY Cricket Ot G47.30 SLEEP APNEA, UNSPECIFIED 03/18/2018 SARAH NELLY Cricket Ot G89.18 OTHER ACUTE POSTPROCEDURAL PAIN 03/18/2018 SARAH NELLY Cricket Ot I10 ESSENTIAL (PRIMARY) HYPERTENSION 03/18/2018 SARAH NELLY Cricket Ot I25.10 ATHSCL HEART DISEASE OF [place] CORONARY 03/18/2018 SARAH NELLY Cricket Ot I48.91 UNSPECIFIED ATRIAL FIBRILLATION 03/18/2018 SARAH NELLY K Ot J31.0 CHRONIC RHINITIS 03/18/2018 SARAH NELLY K Ot J44.9 CHRONIC OBSTRUCTIVE PULMONARY DISEASE, U 03/18/2018 SARAH NELLY Cricket Ot Z79.4 ENVIRONMENTAL DIRECTOR (CURRENT) USE OF INSULIN 03/18/2018 SARAH DO NELLY Cricket Ot Z80.51 FAMILY HISTORY OF MALIGNANT NEOPLASM OF 03/18/2018 SARAH NELLY Cricket Ot Z85.3 PERSONAL HISTORY OF MALIGNANT NEOPLASM O 03/18/2018 SARAH NELLY Cricket Ot Z86.718 PERSONAL HISTORY OF OTHER VENOUS THROMBO 03/18/2018 SARAH NELLY K Ot Z87.01 PERSONAL HISTORY OF PNEUMONIA (RECURRENT 03/18/2018 SARAH NELLY Cricket Ot Z87.19 PERSONAL HISTORY OF OTHER DISEASES OF TH 03/18/2018 SARAH NELLY Cricket Ot Z87.440 PERSONAL HISTORY OF URINARY (TRACT) INFE 03/18/2018 SARAH NELLY CHAUHAN Ot Z88.0 ALLERGY STATUS TO PENICILLIN 03/18/2018 SARAH NELLY CHAUHAN Ot Z88.2 ALLERGY STATUS TO SULFONAMIDES STATUS 03/18/2018 SARAH CELI CHAUHANA Cricket Ot Z88.5 ALLERGY STATUS TO NARCOTIC AGENT STATUS 03/18/2018 SARAH CELI CHAUHANA Cricket Ot Z88.8 ALLERGY STATUS TO OTH DRUG/MEDS/BIOL SUB 03/18/2018 SARAH DO NELLY Cricket Ot Z90.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 03/18/2018 SARAH NELLY CHAUHAN Ot Z90.49 ACQUIRED ABSENCE OF OTHER SPECIFIED PART 03/18/2018 NELLY SMITH DO Ot Z90.710 ACQUIRED ABSENCE OF BOTH CERVIX AND UTER 03/18/2018 SARAH CELI CHAUHANYannick Harley Ot Z90.81 ACQUIRED ABSENCE OF SPLEEN 03/18/2018 SARAH HCAUHAN NELLY K Ot Z90.89 ACQUIRED ABSENCE OF OTHER ORGANS 03/18/2018 SARAH CHAUHAN NELLY Cricket Ot Z98.890 OTHER SPECIFIED POSTPROCEDURAL STATES 03/23/2018 CORBY SULTANA MD Ot R04 .0 EPISTAXIS 03/23/2018 CORBY SULTANA MD, Ot Z01.818 ENCOUNTER FOR OTHER PREPROCEDURAL EXAMIN 03/23/2018 CORBY SULTANA MD, Ot Z88 .1 ALLERGY STATUS TO OTHER ANTIBIOTIC AGENT 03/31/2018 DANY ESPINAL DO, Ot J32.9 CHRONIC SINUSITIS, UNSPECIFIED 04/03/2018 DANY ESPINAL DO, Ot J32.9 CHRONIC SINUSITIS, UNSPECIFIED 04/10/2018 DANY ESPINAL DO, Ot J32.9 CHRONIC SINUSITIS, UNSPECIFIED 04/22/2018 SANGEETA MARSHALL MD Ot E11 .9 TYPE 2 DIABETES MELLITUS WITHOUT COMPLIC 04/22/2018 SANGEETA MARSHALL MD, Ot E78.00 PURE HYPERCHOLESTEROLEMIA, UNSPECIFIED 04/22/2018 SANGEETA MARSHALL MD Ot F31 .9 BIPOLAR DISORDER, UNSPECIFIED 04/22/2018 SANGEETA MARSHALL MD, Ot F41 .9 ANXIETY DISORDER, UNSPECIFIED 04/22/2018 SANGEETA MARSHALL MD Ot 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 04/22/2018 SANGEETA MARSHALL MD Ot I10 ESSENTIAL (PRIMARY) HYPERTENSION 04/22/2018 SANGEETA MARSHALL MD Ot I25.10 ATHSCL HEART DISEASE OF [place] CORONARY 04/22/2018 SANGEETA MARSHALL MD, Ot I27.20 PULMONARY HYPERTENSION, UNSPECIFIED 04/22/2018 SANGEETA MARSHALL MD Ot I48 .2 CHRONIC ATRIAL FIBRILLATION 04/22/2018 SANGEETA MARSHALL MD Ot I65.23 OCCLUSION AND STENOSIS OF BILATERAL [place] 04/22/2018 SANGEETA MARSHALL MD Ot J44 .9 CHRONIC OBSTRUCTIVE PULMONARY DISEASE, U 04/22/2018 SANGEETA MARSHALL MD Ot M79 .7 FIBROMYALGIA 04/22/2018 SANGEETA MARSHALL MD Ot R07 .9 CHEST PAIN, UNSPECIFIED 04/22/2018 SANGEETA MARSHALL MD Ot Z79 .4 ENVIRONMENTAL DIRECTOR (CURRENT) USE OF INSULIN 04/22/2018 SANGEETA MARSHALL MD, Ot Z85 .3 PERSONAL HISTORY OF MALIGNANT NEOPLASM O 04/22/2018 SANGEETA MARSHALL MD, Ot Z86.718 PERSONAL HISTORY OF OTHER VENOUS THROMBO 04/22/2018 SANGEETA MARSHALL MD, Ot Z92.21 PERSONAL HISTORY OF ANTINEOPLASTIC CHEMO 04/22/2018 SANGEETA MARSHALL MD Ot E11 .9 TYPE 2 DIABETES MELLITUS WITHOUT COMPLIC 04/22/2018 SANGEETA MARSHALL MD, Ot E78.00 PURE HYPERCHOLESTEROLEMIA, UNSPECIFIED 04/22/2018 SANGEETA MARSHALL MD, Ot F31 .9 BIPOLAR DISORDER, UNSPECIFIED 04/22/2018 SANGEETA MARSHALL MD, Ot F41 .9 ANXIETY DISORDER, UNSPECIFIED 04/22/2018 SANGEETA MARSHALL MD Ot 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 04/22/2018 SANGEETA MARSHALL MD Ot I10 ESSENTIAL (PRIMARY) HYPERTENSION 04/22/2018 SANGEETA MARSHALL MD, Ot I25.10 ATHSCL HEART DISEASE OF [place] CORONARY 04/22/2018 SANGEETA MARSHALL MD, Ot I27.20 PULMONARY HYPERTENSION, UNSPECIFIED 04/22/2018 SANGEETA MARSHALL MD, Ot I48 .2 CHRONIC ATRIAL FIBRILLATION 04/22/2018 SANGEETA MARSHALL MD, Ot I65.23 OCCLUSION AND STENOSIS OF B[place]ATERAL [place] 04/22/2018 SANGEETA MARSHALL MD Ot J44 .9 CHRONIC OBSTRUCTIVE PULMONARY DISEASE, U 04/22/2018 SANGEETA MARSHALL MD Ot M79 .7 FIBROMYALGIA 04/22/2018 SANGEETA MARSHALL MD Ot R07 .9 CHEST PAIN, UNSPECIFIED 04/22/2018 SANGEETA MARSHALL MD, Ot Z79 .4 ENVIRONMENTAL DIRECTOR (CURRENT) USE OF INSULIN 04/22/2018 SANGEETA MARSHALL MD, Ot Z85 .3 PERSONAL HISTORY OF MALIGNANT NEOPLASM O 04/22/2018 SANGEETA MARSHALL MD, Ot Z86.718 PERSONAL HISTORY OF OTHER VENOUS THROMBO 04/22/2018 SANGEETA MARSHALL MD Ot Z92.21 PERSONAL HISTORY OF ANTINEOPLASTIC CHEMO 04/24/2018 ERVIN OSBORNE MD Ot C92.0 0 ACUTE MYELOBLASTIC LEUKEMIA, NOT HAVING 04/24/2018 INDIA MOULTON, ERVIN Lanier Ot N28.1 CYST OF KIDNEY, ACQUIRED 05/07/2018 INDIA MOULTON, ERVIN Lanier Ot C92.0 0 ACUTE MYELOBLASTIC LEUKEMIA, NOT HAVING 05/07/2018 ERVIN OSBORNE MD Ot N28.1 CYST OF KIDNEY, ACQUIRED 05/07/2018 FAITH TURK Ot B02.29 OTHER POSTHERPETIC NERVOUS SYSTEM INVOLV 05/07/2018 FAITH TURK Ot E11.9 TYPE 2 DIABETES MELLITUS WITHOUT COMPLIC 05/07/2018 FAITH TURK Ot E78.5 HYPERLIPIDEMIA, UNSPECIFIED 05/07/2018 FAITH TURK Ot G47.33 OBSTRUCTIVE SLEEP APNEA (ADULT) (PEDIATR 05/07/2018 FAITH TURK Ot I10 ESSENTIAL (PRIMARY) HYPERTENSION 05/07/2018 FAITH TURK Ot I27.20 PULMONARY HYPERTENSION, UNSPECIFIED 05/07/2018 FAITH TURK Ot I48.2 CHRONIC ATRIAL FIBRILLATION 05/07/2018 FAITH TURK Ot Z08 ENCNTR FOR FOLLOW-UP EXAM AFTER TRTMT FO 05/07/2018 FAITH TURK Ot Z79.01 ENVIRONMENTAL DIRECTOR (CURRENT) USE OF ANTICOAGULANT 05/07/2018 FAITH TURK Ot Z79.4 ENVIRONMENTAL DIRECTOR (CURRENT) USE OF INSULIN 05/07/2018 FAITH TURK Ot Z79.82 [facility] (CURRENT) USE OF ASPIRIN 05/07/2018 FAITH TURK Ot Z79.899 OTHER ENVIRONMENTAL DIRECTOR (CURRENT) DRUG THERAPY 05/07/2018 FAITH TURK Ot Z85.3 PERSONAL HISTORY OF MALIGNANT NEOPLASM O 05/07/2018 FAITH TURK Ot Z86.711 PERSONAL HISTORY OF PULMONARY EMBOLISM 05/07/2018 FAITH TURK Ot Z86.718 PERSONAL HISTORY OF OTHER VENOUS THROMBO 05/07/2018 FAITH TURK Ot Z90.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 05/07/2018 FAITH TURK Ot Z92.21 PERSONAL HISTORY OF ANTINEOPLASTIC CHEMO 05/19/2018 DANY ESPINAL DO Ot J32.9 CHRONIC SINUSITIS, UNSPECIFIED 05/19/2018 FAITH TURK Ot B02.29 OTHER POSTHERPETIC NERVOUS SYSTEM INVOLV 05/19/2018 ROSALEE EDNASUJATA Evy Ot E11.9 TYPE 2 DIABETES MELLITUS WITHOUT COMPLIC 05/19/2018 ROSALEE EDNASUJATA Evy Ot E78.5 HYPERLIPIDEMIA, UNSPECIFIED 05/19/2018 ROSALEE EDNASUJATA Evy Ot G47.33 OBSTRUCTIVE SLEEP APNEA (ADULT) (PEDIATR 05/19/2018 FAITH TURK Ot I10 ESSENTIAL (PRIMARY) HYPERTENSION 05/19/2018 ROSALEEFAITH Ot I27.20 PULMONARY HYPERTENSION, UNSPECIFIED 05/19/2018 ROSALEE EDNASUJATA Evy Ot I48.2 CHRONIC ATRIAL FIBRILLATION 05/19/2018 ROSALEE FAITH Ratliff Ot Z08 ENCNTR FOR FOLLOW-UP EXAM AFTER TRTMT FO 05/19/2018 ROSALEEFAITH Ot Z79.01 [facility] (CURRENT) USE OF ANTICOAGULANT 05/19/2018 FAITH TURK Ot Z79.4 [facility] (CURRENT) USE OF INSULIN 05/19/2018 FAITH TURK Ot Z79.82 ENVIRONMENTAL DIRECTOR (CURRENT) USE OF ASPIRIN 05/19/2018 ROSALEEFAITH Ot Z79.899 OTHER ENVIRONMENTAL DIRECTOR (CURRENT) DRUG THERAPY 05/19/2018 ROSALEE EDNASUJATA Evy Ot Z85.3 PERSONAL HISTORY OF MALIGNANT NEOPLASM O 05/19/2018 ROSALEEFAITH Ot Z86.711 PERSONAL HISTORY OF PULMONARY EMBOLISM 05/19/2018 ROSALEEFAITH Ot Z86.718 PERSONAL HISTORY OF OTHER VENOUS THROMBO 05/19/2018 ROSALEEFAITH Ot Z90.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 05/19/2018 FAITH TURK Ot Z92.21 PERSONAL HISTORY OF ANTINEOPLASTIC CHEMO 05/23/2018 JAYE MENG APRN Ot E11 .9 TYPE 2 DIABETES MELLITUS WITHOUT COMPLIC 05/23/2018 JAYE MENG APRN Ot E78.00 PURE HYPERCHOLESTEROLEMIA, UNSPECIFIED 05/23/2018 JAYE MENG APRN Ot F32 .9 MAJOR DEPRESSIVE DISORDER, SINGLE EPISOD 05/23/2018 JAYE MENG APRN Ot F41 .9 ANXIETY DISORDER, UNSPECIFIED 05/23/2018 JAYE MENG APRN Ot G47.30 SLEEP APNEA, UNSPECIFIED 05/23/2018 JAYE MENG APRN Ot I10 ESSENTIAL (PRIMARY) HYPERTENSION 05/23/2018 JAYE MENG APRN Ot I25.10 ATHSCL HEART DISEASE OF [place] CORONARY 05/23/2018 JAYE MENG APRN Ot I48.91 UNSPECIFIED ATRIAL FIBRILLATION 05/23/2018 JAYE MENG APRN Ot J44 .9 CHRONIC OBSTRUCTIVE PULMONARY DISEASE, U 05/23/2018 JAYE MENG APRN Ot R40 .0 SOMNOLENCE 05/23/2018 JAYE MENG APRN Ot R53 .1 WEAKNESS 05/23/2018 JAYE MENG APRN Ot Z79.01 ENVIRONMENTAL DIRECTOR (CURRENT) USE OF ANTICOAGULANT 05/23/2018 JAYE MENG APRN Ot Z79 .4 ENVIRONMENTAL DIRECTOR (CURRENT) USE OF INSULIN 05/23/2018 JAYE MENG APRN Ot Z79.82 [facility] (CURRENT) USE OF ASPIRIN 05/23/2018 JAYE MENG APRN Ot Z85 .3 PERSONAL HISTORY OF MALIGNANT NEOPLASM O 05/23/2018 JAYE MENG APRN Ot Z86.711 PERSONAL HISTORY OF PULMONARY EMBOLISM 05/23/2018 JAYE MENG APRN Ot Z86.718 PERSONAL HISTORY OF OTHER VENOUS THROMBO 05/23/2018 JAYE MENG APRN Ot Z87.01 PERSONAL HISTORY OF PNEUMONIA (RECURRENT 05/23/2018 JAYE MENG APRN Ot Z87.81 PERSONAL HISTORY OF (HEALED) TRAUMATIC F 05/23/2018 JAYE MENG APRN Ot Z88 .0 ALLERGY STATUS TO PENICILLIN 05/23/2018 JAYE MENG APRN Ot Z88 .2 ALLERGY STATUS TO SULFONAMIDES STATUS 05/23/2018 JAYE MENG APRN Ot Z88 .6 ALLERGY STATUS TO ANALGESIC AGENT STATUS 05/23/2018 JAYE MENG APRN Ot Z88 .8 ALLERGY STATUS TO OTH DRUG/MEDS/BIOL SUB 05/23/2018 JAYE MENG APRN Ot Z90.49 ACQUIRED ABSENCE OF OTHER SPECIFIED PART 05/23/2018 JAYE MENG APRN Ot Z90.710 ACQUIRED ABSENCE OF BOTH CERVIX AND UTER 05/23/2018 JAYE MENG APRN Ot Z90.89 ACQUIRED ABSENCE OF OTHER ORGANS 05/26/2018 JAYE MENG APRN Ot E11 .9 TYPE 2 DIABETES MELLITUS WITHOUT COMPLIC 05/26/2018 JAYE MENG APRN Ot E78.00 PURE HYPERCHOLESTEROLEMIA, UNSPECIFIED 05/26/2018 JAYE MENG APRN Ot F32 .9 MAJOR DEPRESSIVE DISORDER, SINGLE EPISOD 05/26/2018 JAYE MENG APRN Ot F41 .9 ANXIETY DISORDER, UNSPECIFIED 05/26/2018 JAYE MENG APRN Ot G47.30 SLEEP APNEA, UNSPECIFIED 05/26/2018 JAYE MENG APRN Ot I10 ESSENTIAL (PRIMARY) HYPERTENSION 05/26/2018 JAYE MENG APRN Ot I25.10 ATHSCL HEART DISEASE OF [place] CORONARY 05/26/2018 JAYE MENG APRN Ot I48.91 UNSPECIFIED ATRIAL FIBRILLATION 05/26/2018 JAYE MENG APRN Ot J44 .9 CHRONIC OBSTRUCTIVE PULMONARY DISEASE, U 05/26/2018 JAYE MENG APRN Ot R40 .0 SOMNOLENCE 05/26/2018 JAYE MENG APRN Ot R53 .1 WEAKNESS 05/26/2018 JAYE MENG APRN Ot Z79.01 [facility] (CURRENT) USE OF ANTICOAGULANT 05/26/2018 JAYE MENG APRN Ot Z79 .4 [facility] (CURRENT) USE OF INSULIN 05/26/2018 JAYE MENG APRN Ot Z79.82 [facility] (CURRENT) USE OF ASPIRIN 05/26/2018 JAYE MENG APRN Ot Z85 .3 PERSONAL HISTORY OF MALIGNANT NEOPLASM O 05/26/2018 JAYE MENG APRN Ot Z86.711 PERSONAL HISTORY OF PULMONARY EMBOLISM 05/26/2018 JAYE MENG APRN Ot Z86.718 PERSONAL HISTORY OF OTHER VENOUS THROMBO 05/26/2018 JAYE MENG APRN Ot Z87.01 PERSONAL HISTORY OF PNEUMONIA (RECURRENT 05/26/2018 JAYE MENG APRN Ot Z87.81 PERSONAL HISTORY OF (HEALED) TRAUMATIC F 05/26/2018 JAYE MENG APRN Ot Z88 .0 ALLERGY STATUS TO PENICILLIN 05/26/2018 JAYE MENG APRN Ot Z88 .2 ALLERGY STATUS TO SULFONAMIDES STATUS 05/26/2018 JAYE MENG APRN Ot Z88 .6 ALLERGY STATUS TO ANALGESIC AGENT STATUS 05/26/2018 JAYE MENG APRN Ot Z88 .8 ALLERGY STATUS TO OTH DRUG/MEDS/BIOL SUB 05/26/2018 JAYE MENG APRN Ot Z90.49 ACQUIRED ABSENCE OF OTHER SPECIFIED PART 05/26/2018 JAYE MENG APRN Ot Z90.710 ACQUIRED ABSENCE OF BOTH CERVIX AND UTER 05/26/2018 JAYE MENG APRN Ot Z90.89 ACQUIRED ABSENCE OF OTHER ORGANS 05/29/2018 JAYE MENG APRN Ot E11 .9 TYPE 2 DIABETES MELLITUS WITHOUT COMPLIC 05/29/2018 JAYE MENG APRN Ot E78.00 PURE HYPERCHOLESTEROLEMIA, UNSPECIFIED 05/29/2018 JAYE MENG APRN Ot F32 .9 MAJOR DEPRESSIVE DISORDER, SINGLE EPISOD 05/29/2018 JAYE MENG APRN Ot F41 .9 ANXIETY DISORDER, UNSPECIFIED 05/29/2018 JAYE MENG APRN Ot G47.30 SLEEP APNEA, UNSPECIFIED 05/29/2018 JAYE MENG APRN Ot I10 ESSENTIAL (PRIMARY) HYPERTENSION 05/29/2018 JAYE MENG APRN Ot I25.10 ATHSCL HEART DISEASE OF [place] CORONARY 05/29/2018 JAYE MENG APRN Ot I48.91 UNSPECIFIED ATRIAL FIBRILLATION 05/29/2018 JAYE MENG APRN Ot J44 .9 CHRONIC OBSTRUCTIVE PULMONARY DISEASE, U 05/29/2018 JAYE MENG APRN Ot R40 .0 SOMNOLENCE 05/29/2018 JAYE MENG APRN Ot R53 .1 WEAKNESS 05/29/2018 JAYE MENG APRN Ot Z79.01 [facility] (CURRENT) USE OF ANTICOAGULANT 05/29/2018 JAYE MENG APRN Ot Z79 .4 [facility] (CURRENT) USE OF INSULIN 05/29/2018 JAYE MENG APRN Ot Z79.82 ENVIRONMENTAL DIRECTOR (CURRENT) USE OF ASPIRIN 05/29/2018 JAYE MENG APRN Ot Z85 .3 PERSONAL HISTORY OF MALIGNANT NEOPLASM O 05/29/2018 JAYE MENG APRN Ot Z86.711 PERSONAL HISTORY OF PULMONARY EMBOLISM 05/29/2018 JAYE MENG APRN Ot Z86.718 PERSONAL HISTORY OF OTHER VENOUS THROMBO 05/29/2018 JAYE MENG APRN Ot Z87.01 PERSONAL HISTORY OF PNEUMONIA (RECURRENT 05/29/2018 JAYE MENG APRN Ot Z87.81 PERSONAL HISTORY OF (HEALED) TRAUMATIC F 05/29/2018 JAYE MENG APRN Ot Z88 .0 ALLERGY STATUS TO PENICILLIN 05/29/2018 JAYE MENG APRN Ot Z88 .2 ALLERGY STATUS TO SULFONAMIDES STATUS 05/29/2018 JAYE MENG APRN Ot Z88 .6 ALLERGY STATUS TO ANALGESIC AGENT STATUS 05/29/2018 JAYE MNEG APRN Ot Z88 .8 ALLERGY STATUS TO OTH DRUG/MEDS/BIOL SUB 05/29/2018 JAYE MENG APRN Ot Z90.49 ACQUIRED ABSENCE OF OTHER SPECIFIED PART 05/29/2018 JAYE MENG APRN Ot Z90.710 ACQUIRED ABSENCE OF BOTH CERVIX AND UTER 05/29/2018 JAYE MENG APRN Ot Z90.89 ACQUIRED ABSENCE OF OTHER ORGANS 06/16/2018 FAITH TURK Ot E11.9 TYPE 2 DIABETES MELLITUS WITHOUT COMPLIC 06/16/2018 FAITH TURK Ot E78.5 HYPERLIPIDEMIA, UNSPECIFIED 06/16/2018 FAITH TURK Ot I10 ESSENTIAL (PRIMARY) HYPERTENSION 06/16/2018 FAITH TURK Ot Z08 ENCNTR FOR FOLLOW-UP EXAM AFTER TRTMT FO 06/16/2018 FAITH TURK Ot Z79.01 [facility] (CURRENT) USE OF ANTICOAGULANT 06/16/2018 FAITH TURK Ot Z79.4 [facility] (CURRENT) USE OF INSULIN 06/16/2018 FAITH TURK Ot Z85.3 PERSONAL HISTORY OF MALIGNANT NEOPLASM O 06/16/2018 FAITH TURK Ot Z86.718 PERSONAL HISTORY OF OTHER VENOUS THROMBO 06/16/2018 FAITH TURK Ot Z90.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 06/16/2018 FAITH TURK Ot Z92.21 PERSONAL HISTORY OF ANTINEOPLASTIC CHEMO 06/16/2018 JOSELUIS BORGES COMMUNITY HEALTH DIRECTOR Ot R92.8 OT ABN AND INCONCLUSIVE FINDINGS ON DX 06/16/2018 MORAIMA MOULTON, YANG Ku Ot Z01.818 ENCOUNTER FOR OTHER PREPROCEDURAL EXAMIN 06/16/2018 YANG VALERA MD Ot Z01.818 ENCOUNTER FOR OTHER PREPROCEDURAL EXAMIN 06/17/2018 FARZAD MOULTON, MEGHA Ku Ot 786.2 COUGH 06/17/2018 ROSALEE, BOBAN N Ot 174.9 MALIGN NEOPL BREAST NOS 06/17/2018 FARZAD MOULTON, MEGHA Ku Ot 453.4 0 ACUTE VENOUS EMBOLISM THROMBOSIS UNSP 06/17/2018 FAITH TURK Ot V10.3 HX OF BREAST MALIGNANCY 06/17/2018 FAITH TURK Ot V67.9 FOLLOW-UP EXAM NOS 06/17/2018 INDIA MOULTON, ERVIN Lanier Ot 593.9 RENAL URETERAL DIS NOS 06/17/2018 INDIA MOULTON, ERVIN Lanier Ot 753.1 0 CYSTIC KIDNEY DISEASE, UNSPECIFIED 06/17/2018 BORGESJOSELUIS Devi COMMUNITY HEALTH DIRECTOR Ot 174.9 MALIGN NEOPL BREAST NOS 06/17/2018 BORGESJOSELUIS Devi COMMUNITY HEALTH DIRECTOR Ot V67.9 FOLLOW-UP EXAM NOS 06/17/2018 ERVIN OSBORNE MD Ot 593.2 CYST OF KIDNEY, ACQUIRED 06/17/2018 NIRAV MOULTON, ARI Ot V72.84 EXAM PRE-OPERATIVE NOS 06/17/2018 ERVIN OSBORNE MD Ot 593.2 CYST OF KIDNEY, ACQUIRED 06/17/2018 FAITH TURK Ot 174.9 MALIGN NEOPL BREAST NOS 06/17/2018 FAITH TURK Ot V67.9 FOLLOW-UP EXAM NOS 06/17/2018 FAITH TURK Ot 793.80 UNSPEC ABNORMAL MAMMOGRAM 06/17/2018 RAVEN LEO WILL CALL ORDER CLERK Ot 729.5 PAIN IN LIMB 06/17/2018 RAVEN LEO WILL CALL ORDER CLERK Ot 786.05 SHORTNESS OF BREATH 06/17/2018 ERVIN OSBORNE MD Ot 593.2 CYST OF KIDNEY, ACQUIRED 06/17/2018 FARZAD MOULTON, MEGHA Ku Ot 428.0 CONGESTIVE HEART FAILURE NOS 06/17/2018 ERVIN OSBORNE MD Ot 753.1 0 CYSTIC KIDNEY DISEASE, UNSPECIFIED 06/17/2018 FAITH TURK Ot V10.3 HX OF BREAST MALIGNANCY 06/17/2018 FAITH TURK Ot V12.51 HX- VENOUS THROMBOSIS EMBOLISM 06/17/2018 FAITH TURK Ot V12.55 PERSONAL HISTORY OF PULMONARY EMBOLISM 06/17/2018 FAITH TURK Ot V45.71 ACQUIRED ABSENCE OF BREAST AND NIPPLE 06/17/2018 FAITH TURK Ot V58.61 ANTICOAGULANTS,LT,CURRENT USE 06/17/2018 ROSALEEFAITH RABAGO Evy Ot V58.69 OTH MED,LT,CURRENT USE 06/17/2018 ROSALEEFAITH RABAGO Evy Ot V67.2 CHEMOTHERAPY FOLLOW-UP 06/17/2018 RSOALEE FAITH Ratliff Ot 174.9 MALIGN NEOPL BREAST NOS 06/17/2018 MEGHA PANDA MD Ot 276.1 HYPOSMOLALITY 06/17/2018 MEGHA PANDA MD Ot 250.0 0 DIAB TJ WO COMPL, TYPE II OR UNSPEC TY 06/17/2018 MEGHA PANDA MD Ot 276.8 HYPOPOTASSEMIA 06/17/2018 MEGHA PANDA MD Ot 250.0 0 DIAB TJ WO COMPL, TYPE II OR UNSPEC TY 06/17/2018 MEGHA PANDA MD Ot V58.6 9 OTH MED,LT,CURRENT USE 06/17/2018 MEGHA PANDA MD Ot L03.9 0 CELLULITIS, UNSPECIFIED 06/17/2018 MEGHA PANDA MD Ot Z51.8 1 ENCOUNTER FOR THERAPEUTIC DRUG LEVEL MON 06/17/2018 MEGHA PANDA MD Ot Z79.2 ENVIRONMENTAL DIRECTOR (CURRENT) USE OF ANTIBIOTICS 06/17/2018 AGATHA ESPINAL Ot N39.0 URINARY TRACT INFECTION, SITE NOT SPECIF 06/17/2018 DANY ESPINAL DO Ot E03.9 HYPOTHYROIDISM, UNSPECIFIED 06/17/2018 DANY ESPINAL DO Ot I48.2 CHRONIC ATRIAL FIBRILLATION 06/17/2018 DANY ESPINAL DO Ot N39.0 URINARY TRACT INFECTION, SITE NOT SPECIF 06/17/2018 DANY ESPINAL DO Ot N39.0 URINARY TRACT INFECTION, SITE NOT SPECIF 06/17/2018 Ot 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 06/17/2018 Ot N28.1 CYST OF KIDNEY, ACQUIRED 06/17/2018 JOSELUIS BORGES Ot Z 08 ENCNTR FOR FOLLOW-UP EXAM AFTER TRTMT FO 06/17/2018 JOSELUIS BORGES Ot Z79.01 ENVIRONMENTAL DIRECTOR (CURRENT) USE OF ANTICOAGULANT 06/17/2018 JOSELUIS BORGES Ot Z85.3 PERSONAL HISTORY OF MALIGNANT NEOPLASM O 06/17/2018 JOSELUIS BORGES Ot Z86.718 PERSONAL HISTORY OF OTHER VENOUS THROMBO 06/17/2018 JOSELUIS BORGESP Ot Z90.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 06/17/2018 JOSELUIS BORGES COMMUNITY HEALTH DIRECTOR Ot Z12.31 ENCNTR SCREEN MAMMOGRAM FOR MALIGNANT NE 06/17/2018 DANY ESPINAL DO Ot 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 2 MIXED HYPERLIPIDEMIA 06/17/2018 LAKISHA MOULTON, SHEELA Short Ot G25. 0 ESSENTIAL TREMOR 06/17/2018 SHEELA BANUELOS MD, Ot I10 ESSENTIAL (PRIMARY) HYPERTENSION 06/17/2018 LAKISHA MOULTON, SHEELA Short Ot I48. 0 PAROXYSMAL ATRIAL FIBRILLATION 06/17/2018 SHEELA BANUELOS MD Ot R07. 9 CHEST PAIN, UNSPECIFIED 06/17/2018 MARSHA DPM, FRANCK Stanton Ot M79.604 PAIN IN RIGHT LEG 06/17/2018 AGATHA ESPINAL COMMUNITY HEALTH DIRECTOR Ot N28.1 CYST OF KIDNEY, ACQUIRED 06/17/2018 AGATHA ESPINAL COMMUNITY HEALTH DIRECTOR Ot R10.2 PELVIC AND PERINEAL PAIN 06/17/2018 IND[place] MOULTON, ERVIN Lanier Ot N28.1 CYST OF KIDNEY, ACQUIRED 06/17/2018 FAITH TURK Ot B02.29 OTHER POSTHERPETIC NERVOUS SYSTEM INVOLV 06/17/2018 FAITH TURK Ot E11.9 TYPE 2 DIABETES MELLITUS WITHOUT COMPLIC 06/17/2018 FAITH TURK Ot E78.5 HYPERLIPIDEMIA, UNSPECIFIED 06/17/2018 FAITH TURK Ot G47.33 OBSTRUCTIVE SLEEP APNEA (ADULT) (PEDIATR 06/17/2018 FAITH TURK Ot I10 ESSENTIAL (PRIMARY) HYPERTENSION 06/17/2018 FAITH TURK Ot I27.20 PULMONARY HYPERTENSION, UNSPECIFIED 06/17/2018 FAITH TURK Ot I48.2 CHRONIC ATRIAL FIBRILLATION 06/17/2018 FAITH TURK Ot Z08 ENCNTR FOR FOLLOW-UP EXAM AFTER TRTMT FO 06/17/2018 FAITH TURK Evy Ot Z79.01 ENVIRONMENTAL DIRECTOR (CURRENT) USE OF ANTICOAGULANT 06/17/2018 ROSALEEFAITH N Ot Z79.4 ENVIRONMENTAL DIRECTOR (CURRENT) USE OF INSULIN 06/17/2018 ROSALEEFAITH N Ot Z79.82 ENVIRONMENTAL DIRECTOR (CURRENT) USE OF ASPIRIN 06/17/2018 ROSALEEFAITH Ot Z79.899 OTHER [facility] (CURRENT) DRUG THERAPY 06/17/2018 FAITH TURK Ot Z85.3 PERSONAL HISTORY OF MALIGNANT NEOPLASM O 06/17/2018 ROSALEEFAITH N Ot Z86.711 PERSONAL HISTORY OF PULMONARY EMBOLISM 06/17/2018 ROSALEEFAITH N Ot Z86.718 PERSONAL HISTORY OF OTHER VENOUS THROMBO 06/17/2018 ROSALEEFAITH N Ot Z90.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 06/17/2018 ROSALEEFAITH N Ot Z92.21 PERSONAL HISTORY OF ANTINEOPLASTIC CHEMO 06/17/2018 KO KENDRICK DO Ot M51.36 OTHER INTERVERTEBRAL DISC DEGENERATION, 06/17/2018 ROSALEEFAITH Ot R92.8 OTH ABN AND INCONCLUSIVE FINDINGS ON DX 06/17/2018 ROSALEEFAITH Ot E11.9 TYPE 2 DIABETES MELLITUS WITHOUT COMPLIC 06/17/2018 FAITH TURK Ot E78.5 HYPERLIPIDEMIA, UNSPECIFIED 06/17/2018 FAITH TURK Ot I10 ESSENTIAL (PRIMARY) HYPERTENSION 06/17/2018 ROSALEEFAITH Ot Z08 ENCNTR FOR FOLLOW-UP EXAM AFTER TRTMT FO 06/17/2018 FAITH TURK Ot Z79.01 ENVIRONMENTAL DIRECTOR (CURRENT) USE OF ANTICOAGULANT 06/17/2018 FAITH TURK N Ot Z79.4 ENVIRONMENTAL DIRECTOR (CURRENT) USE OF INSULIN 06/17/2018 ROSALEEFAITH N Ot Z85.3 PERSONAL HISTORY OF MALIGNANT NEOPLASM O 06/17/2018 FAITH TURK N Ot Z86.718 PERSONAL HISTORY OF OTHER VENOUS THROMBO 06/17/2018 FAITH TURK N Ot Z90.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 06/17/2018 ROSALEEFAITH N Ot Z92.21 PERSONAL HISTORY OF ANTINEOPLASTIC CHEMO 06/17/2018 JOSELUIS BORGES [facility] DIRECTOR Ot C50.911 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 06/17/2018 JOSELUIS [facility]GES [facility] DIRECTOR Ot 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 06/17/2018 JOSELUIS BORGES [facility] DIRECTOR Ot R92.8 OTH ABN AND INCONCLUSIVE FINDINGS ON DX 06/18/2018 JAYE MENG APRN Ot E11 .9 TYPE 2 DIABETES MELLITUS WITHOUT COMPLIC 06/18/2018 JAYE MENG APRN Ot E78.00 PURE HYPERCHOLESTEROLEMIA, UNSPECIFIED 06/18/2018 JAYE MENG APRN Ot F32 .9 MAJOR DEPRESSIVE DISORDER, SINGLE EPISOD 06/18/2018 JAYE MENG APRN Ot F41 .9 ANXIETY DISORDER, UNSPECIFIED 06/18/2018 JAYE MENG APRN Ot G47.30 SLEEP APNEA, UNSPECIFIED 06/18/2018 JAYE MENG APRN Ot I10 ESSENTIAL (PRIMARY) HYPERTENSION 06/18/2018 JAYE MENG APRN Ot I25.10 ATHSCL HEART DISEASE OF [place] CORONARY 06/18/2018 JAYE MENG APRN Ot I48.91 UNSPECIFIED ATRIAL FIBRILLATION 06/18/2018 JAYE MENG APRN Ot J44 .9 CHRONIC OBSTRUCTIVE PULMONARY DISEASE, U 06/18/2018 JAYE MENG APRN Ot R40 .0 SOMNOLENCE 06/18/2018 JAYE MENG APRN Ot R53 .1 WEAKNESS 06/18/2018 JAYE MENG APRN Ot Z79.01 ENVIRONMENTAL DIRECTOR (CURRENT) USE OF ANTICOAGULANT 06/18/2018 JAYE MENG APRN Ot Z79 .4 ENVIRONMENTAL DIRECTOR (CURRENT) USE OF INSULIN 06/18/2018 JAYE MENG APRN Ot Z79.82 ENVIRONMENTAL DIRECTOR (CURRENT) USE OF ASPIRIN 06/18/2018 JAYE MENG APRN Ot Z85 .3 PERSONAL HISTORY OF MALIGNANT NEOPLASM O 06/18/2018 JAYE MENG APRN Ot Z86.711 PERSONAL HISTORY OF PULMONARY EMBOLISM 06/18/2018 JAYE MENG APRN Ot Z86.718 PERSONAL HISTORY OF OTHER VENOUS THROMBO 06/18/2018 JAYE MENG APRN Ot Z87.01 PERSONAL HISTORY OF PNEUMONIA (RECURRENT 06/18/2018 JAYE MENG APRN Ot Z87.81 PERSONAL HISTORY OF (HEALED) TRAUMATIC F 06/18/2018 MENG, PETER J WILL CALL ORDER CLERK Ot Z88 .0 ALLERGY STATUS TO PENICILLIN 06/18/2018 JAYE MENG WILL CALL ORDER CLERK Ot Z88 .2 ALLERGY STATUS TO SULFONAMIDES STATUS 06/18/2018 JAYE MENG WILL CALL ORDER CLERK Ot Z88 .6 ALLERGY STATUS TO ANALGESIC AGENT STATUS 06/18/2018 JAYE MENG WILL CALL ORDER CLERK Ot Z88 .8 ALLERGY STATUS TO OTH DRUG/MEDS/BIOL SUB 06/18/2018 JAYE MENG APRN Ot Z90.49 ACQUIRED ABSENCE OF OTHER SPECIFIED PART 06/18/2018 JAYE MENG WILL CALL ORDER CLERK Ot Z90.710 ACQUIRED ABSENCE OF BOTH CERVIX AND UTER 06/18/2018 JAYE MENG WILL CALL ORDER CLERK Ot Z90.89 ACQUIRED ABSENCE OF OTHER ORGANS 06/19/2018 FARZAD MOULTON, MEGHA Ku Ot 786.2 COUGH 06/19/2018 FAITH TURK Ot 174.9 MALIGN NEOPL BREAST NOS 06/19/2018 FARZAD MOULTON, MEGHA Ku Ot 453.4 0 ACUTE VENOUS EMBOLISM THROMBOSIS UNSP 06/19/2018 FATIH TURK Ot V10.3 HX OF BREAST MALIGNANCY 06/19/2018 FAITH TURK Ot V67.9 FOLLOW-UP EXAM NOS 06/19/2018 ERVIN OSBORNE MD Ot 593.9 RENAL URETERAL DIS NOS 06/19/2018 [place] MOULTON, ERVIN Lanier Ot 753.1 0 CYSTIC KIDNEY DISEASE, UNSPECIFIED 06/19/2018 [facility]IS [facility] DIRECTOR Ot 174.9 MALIGN NEOPL BREAST NOS 06/19/2018 JOSELUIS [facility]ES [facility] DIRECTOR Ot V67.9 FOLLOW-UP EXAM NOS 06/19/2018 ERVIN OSBORNE MD Ot 593.2 CYST OF KIDNEY, ACQUIRED 06/19/2018 NIRAV MOULTON, ARI Ot V72.84 EXAM PRE-OPERATIVE NOS 06/19/2018 ERVIN OSBORNE MD Ot 593.2 CYST OF KIDNEY, ACQUIRED 06/19/2018 FAITH TURK Ot 174.9 MALIGN NEOPL BREAST NOS 06/19/2018 FAITH TURK Ot V67.9 FOLLOW-UP EXAM NOS 06/19/2018 FAITH TURK Ot 793.80 UNSPEC ABNORMAL MAMMOGRAM 06/19/2018 RAVEN LEO WILL CALL ORDER CLERK Ot 729.5 PAIN IN LIMB 06/19/2018 RAVEN LEO APRN Ot 786.05 SHORTNESS OF BREATH 06/19/2018 ERVIN OSBORNE MD Ot 593.2 CYST OF KIDNEY, ACQUIRED 06/19/2018 MEGHA PANDA MD Ot 428.0 CONGESTIVE HEART FAILURE NOS 06/19/2018 ERVIN OSBORNE MD Ot 753.1 0 CYSTIC KIDNEY DISEASE, UNSPECIFIED 06/19/2018 FAITH TURK Ot V10.3 HX OF BREAST MALIGNANCY 06/19/2018 FAITH TURK Ot V12.51 HX- VENOUS THROMBOSIS EMBOLISM 06/19/2018 FAITH TURK Ot V12.55 PERSONAL HISTORY OF PULMONARY EMBOLISM 06/19/2018 FAITH TURK Ot V45.71 ACQUIRED ABSENCE OF BREAST AND NIPPLE 06/19/2018 FAITH TURK Ot V58.61 ANTICOAGULANTS,LT,CURRENT USE 06/19/2018 FAITH TURK Ot V58.69 OTH MED,LT,CURRENT USE 06/19/2018 FAITH TURK Ot V67.2 CHEMOTHERAPY FOLLOW-UP 06/19/2018 FAITH TURK Ot 174.9 MALIGN NEOPL BREAST NOS 06/19/2018 MEGHA PANDA MD Ot 276.1 HYPOSMOLALITY 06/19/2018 MEGHA PANDA MD Ot 250.0 0 DIAB TJ WO COMPL, TYPE II OR UNSPEC TY 06/19/2018 MEGHA PANDA MD Ot 276.8 HYPOPOTASSEMIA 06/19/2018 MEGHA PANDA MD Ot 250.0 0 DIAB TJ WO COMPL, TYPE II OR UNSPEC TY 06/19/2018 MEGHA PANDA MD Ot V58.6 9 OTH MED,LT,CURRENT USE 06/19/2018 MEGHA PANDA MD Ot L03.9 0 CELLULITIS, UNSPECIFIED 06/19/2018 MEGHA PANDA MD Ot Z51.8 1 ENCOUNTER FOR THERAPEUTIC DRUG LEVEL MON 06/19/2018 MEGHA PANDA MD Ot Z79.2 [facility] (CURRENT) USE OF ANTIBIOTICS 06/19/2018 AGATHA ESPINAL Ot N39.0 URINARY TRACT INFECTION, SITE NOT SPECIF 06/19/2018 DANY ESPINAL DO Ot E03.9 HYPOTHYROIDISM, UNSPECIFIED 06/19/2018 DANY ESPINAL DO Ot I48.2 CHRONIC ATRIAL FIBRILLATION 06/19/2018 DANY ESPINAL DO Ot N39.0 URINARY TRACT INFECTION, SITE NOT SPECIF 06/19/2018 DANY ESPINAL DO Ot N39.0 URINARY TRACT INFECTION, SITE NOT SPECIF 06/19/2018 Ot 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 06/19/2018 Ot N28.1 CYST OF KIDNEY, ACQUIRED 06/19/2018 JOSELUIS BORGES Ot Z 08 ENCNTR FOR FOLLOW-UP EXAM AFTER TRTMT FO 06/19/2018 JOSELUIS BORGES Ot Z79.01 ENVIRONMENTAL DIRECTOR (CURRENT) USE OF ANTICOAGULANT 06/19/2018 JOSELUIS BORGES Ot Z85.3 PERSONAL HISTORY OF MALIGNANT NEOPLASM O 06/19/2018 JOSELUIS BORGES Ot Z86.718 PERSONAL HISTORY OF OTHER VENOUS THROMBO 06/19/2018 JOSELUIS BORGES Ot Z90.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 06/19/2018 JOSELUIS BORGES Ot Z12.31 ENCNTR SCREEN MAMMOGRAM FOR MALIGNANT NE 06/19/2018 DANY ESPINAL DO Ot 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 06/19/2018 DANY ESPINAL DO Ot 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, 06/19/2018 JOSELUIS BORGES Ot R92.8 OTH ABN AND INCONCLUSIVE FINDINGS ON DX 06/19/2018 SHEELA BANUELOS MD Ot E78. 2 MIXED HYPERLIPIDEMIA 06/19/2018 SHEELA BANUELOS MD Ot G25. 0 ESSENTIAL TREMOR 06/19/2018 SHEELA BANUELOS MD Ot I10 ESSENTIAL (PRIMARY) HYPERTENSION 06/19/2018 SHEELA BANUELOS MD Ot I48. 0 PAROXYSMAL ATRIAL FIBRILLATION 06/19/2018 SHEELA BANUELOS MD Ot R07. 9 CHEST PAIN, UNSPECIFIED 06/19/2018 MARSHA GALLOWAYM, FRANCK Stanton Ot M79.604 PAIN IN RIGHT LEG 06/19/2018 AGATHA ESPINAL Ot N28.1 CYST OF KIDNEY, ACQUIRED 06/19/2018 AGATHA ESPINAL COMMUNITY HEALTH DIRECTOR Ot R10.2 PELVIC AND PERINEAL PAIN 06/19/2018 [place] MOULTON, ERVIN Lanier Ot N28.1 CYST OF KIDNEY, ACQUIRED 06/19/2018 ROSALEE, FAITH Ratliff Ot B02.29 OTHER POSTHERPETIC NERVOUS SYSTEM INVOLV 06/19/2018 FAITH TURK Ot E11.9 TYPE 2 DIABETES MELLITUS WITHOUT COMPLIC 06/19/2018 FAITH TURK Ot E78.5 HYPERLIPIDEMIA, UNSPECIFIED 06/19/2018 FAITH TURK Ot G47.33 OBSTRUCTIVE SLEEP APNEA (ADULT) (PEDIATR 06/19/2018 FAITH TURK Ot I10 ESSENTIAL (PRIMARY) HYPERTENSION 06/19/2018 FAITH TURK Ot I27.20 PULMONARY HYPERTENSION, UNSPECIFIED 06/19/2018 FAITH TURK Ot I48.2 CHRONIC ATRIAL FIBRILLATION 06/19/2018 FAITH TURK Ot Z08 ENCNTR FOR FOLLOW-UP EXAM AFTER TRTMT FO 06/19/2018 FAITH TURK Ot Z79.01 [facility] (CURRENT) USE OF ANTICOAGULANT 06/19/2018 FAITH TURK Ot Z79.4 [facility] (CURRENT) USE OF INSULIN 06/19/2018 FAITH TURK Ot Z79.82 ENVIRONMENTAL DIRECTOR (CURRENT) USE OF ASPIRIN 06/19/2018 FAITH TURK Ot Z79.899 OTHER [facility] (CURRENT) DRUG THERAPY 06/19/2018 FAITH TURK Ot Z85.3 PERSONAL HISTORY OF MALIGNANT NEOPLASM O 06/19/2018 FAITH TURK Ot Z86.711 PERSONAL HISTORY OF PULMONARY EMBOLISM 06/19/2018 FAITH TURK Ot Z86.718 PERSONAL HISTORY OF OTHER VENOUS THROMBO 06/19/2018 FAITH TURK Ot Z90.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 06/19/2018 FAITH TURK Ot Z92.21 PERSONAL HISTORY OF ANTINEOPLASTIC CHEMO 06/19/2018 KO KENDRICK DO Ot M51.36 OTHER INTERVERTEBRAL DISC DEGENERATION, 06/19/2018 FAITH TURK Ot R92.8 OTH ABN AND INCONCLUSIVE FINDINGS ON DX 06/19/2018 FAITH TURK Ot E11.9 TYPE 2 DIABETES MELLITUS WITHOUT COMPLIC 06/19/2018 FAITH TURK Ot E78.5 HYPERLIPIDEMIA, UNSPECIFIED 06/19/2018 FAITH TURK Ot I10 ESSENTIAL (PRIMARY) HYPERTENSION 06/19/2018 FAITH TURK Ot Z08 ENCNTR FOR FOLLOW-UP EXAM AFTER TRTMT FO 06/19/2018 FAITH TURK Ot Z79.01 ENVIRONMENTAL DIRECTOR (CURRENT) USE OF ANTICOAGULANT 06/19/2018 FAITH TURK Ot Z79.4 ENVIRONMENTAL DIRECTOR (CURRENT) USE OF INSULIN 06/19/2018 FAITH TURK Ot Z85.3 PERSONAL HISTORY OF MALIGNANT NEOPLASM O 06/19/2018 FAITH TURK Ot Z86.718 PERSONAL HISTORY OF OTHER VENOUS THROMBO 06/19/2018 FAITH TURK Ot Z90.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 06/19/2018 FAITH TURK Ot Z92.21 PERSONAL HISTORY OF ANTINEOPLASTIC CHEMO 06/19/2018 JOSELUIS BORGESP Ot C50.911 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 06/19/2018 JOSELUIS BORGES COMMUNITY HEALTH DIRECTOR Ot 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 06/19/2018 DANY ESPINAL DO Ot J32.9 CHRONIC SINUSITIS, UNSPECIFIED 06/19/2018 [place] MOULTON, ERVIN Lanier Ot C92.0 0 ACUTE MYELOBLASTIC LEUKEMIA, NOT HAVING 06/19/2018 ERVIN OSBORNE MD Ot N28.1 CYST OF KIDNEY, ACQUIRED 06/19/2018 JOSELUIS BORGES Ot R92.8 OTH ABN AND INCONCLUSIVE FINDINGS ON DX 06/19/2018 MARTHA DAVIS COMMUNITY HEALTH DIRECTOR Ot E10.649 TYPE 1 DIABETES MELLITUS WITH HYPOGLYCEM 06/19/2018 MARTHA, DAVIS COMMUNITY HEALTH DIRECTOR Ot E16.2 HYPOGLYCEMIA, UNSPECIFIED 06/19/2018 MARTHA, DAVIS COMMUNITY HEALTH DIRECTOR Ot E78.00 PURE HYPERCHOLESTEROLEMIA, UNSPECIFIED 06/19/2018 MARTHA, DAVIS COMMUNITY HEALTH DIRECTOR Ot F03.90 UNSPECIFIED DEMENTIA WITHOUT BEHAVIORAL 06/19/2018 MARTHA, DAVIS COMMUNITY HEALTH DIRECTOR Ot F32.9 MAJOR DEPRESSIVE DISORDER, SINGLE EPISOD 06/19/2018 MARTHA, DAVIS COMMUNITY HEALTH DIRECTOR Ot F41.9 ANXIETY DISORDER, UNSPECIFIED 06/19/2018 MARTHA, DAVIS COMMUNITY HEALTH DIRECTOR Ot G47.30 SLEEP APNEA, UNSPECIFIED 06/19/2018 MARTHA, DAVIS COMMUNITY HEALTH DIRECTOR Ot I10 ESSENTIAL (PRIMARY) HYPERTENSION 06/19/2018 MARTHA, DAVIS COMMUNITY HEALTH DIRECTOR Ot I25.10 ATHSCL HEART DISEASE OF [place] CORONARY 06/19/2018 DAVIS THOMAS Ot I27.0 PRIMARY PULMONARY HYPERTENSION 06/19/2018 DAVIS THOMAS Ot I48.91 UNSPECIFIED ATRIAL FIBRILLATION 06/19/2018 DAVIS THOMAS Ot J44.9 CHRONIC OBSTRUCTIVE PULMONARY DISEASE, U 06/19/2018 DAVIS THOMAS Ot N39.0 URINARY TRACT INFECTION, SITE NOT SPECIF 06/19/2018 DAVIS THOMAS Ot Z79.01 [facility] (CURRENT) USE OF ANTICOAGULANT 06/19/2018 DAVIS THOMASP Ot Z79.4 ENVIRONMENTAL DIRECTOR (CURRENT) USE OF INSULIN 06/19/2018 DAVIS THOMASP Ot Z79.52 [facility] (CURRENT) USE OF SYSTEMIC STER 06/19/2018 DAVIS THOMASP Ot Z79.82 ENVIRONMENTAL DIRECTOR (CURRENT) USE OF ASPIRIN 06/19/2018 DAVIS THOMASP Ot Z80.51 FAMILY HISTORY OF MALIGNANT NEOPLASM OF 06/19/2018 DAVIS THOMASP Ot Z85.3 PERSONAL HISTORY OF MALIGNANT NEOPLASM O 06/19/2018 DAVIS THOMASP Ot Z86.718 PERSONAL HISTORY OF OTHER VENOUS THROMBO 06/19/2018 DAVIS THOMASP Ot Z87.01 PERSONAL HISTORY OF PNEUMONIA (RECURRENT 06/19/2018 DAVIS THOMASP Ot Z88.0 ALLERGY STATUS TO PENICILLIN 06/19/2018 DAVIS THOMASP Ot Z88.2 ALLERGY STATUS TO SULFONAMIDES STATUS 06/19/2018 DAVIS THOMASP Ot Z88.5 ALLERGY STATUS TO NARCOTIC AGENT STATUS 06/19/2018 DAVIS THOMASP Ot Z88.8 ALLERGY STATUS TO OT DRUG/MEDS/BIOL SUB 06/19/2018 DAVIS THOMASP Ot Z90.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 06/19/2018 DAVIS THOMASP Ot Z90.710 ACQUIRED ABSENCE OF BOTH CERVIX AND UTER 06/19/2018 DAVIS THOMASP Ot Z90.81 ACQUIRED ABSENCE OF SPLEEN 06/19/2018 DAVIS THOMASP Ot Z90.89 ACQUIRED ABSENCE OF OTHER ORGANS 06/19/2018 DAVIS THOMASP Ot Z92.21 PERSONAL HISTORY OF ANTINEOPLASTIC CHEMO 06/19/2018 DAVIS THOMASP Ot Z98.890 OTHER SPECIFIED POSTPROCEDURAL STATES 06/23/2018 MARTHA, DAVIS COMMUNITY HEALTH DIRECTOR Ot E10.649 TYPE 1 DIABETES MELLITUS WITH HYPOGLYCEM 06/23/2018 MARTHA, DAVIS COMMUNITY HEALTH DIRECTOR Ot E16.2 HYPOGLYCEMIA, UNSPECIFIED 06/23/2018 MARTHA, DAVIS COMMUNITY HEALTH DIRECTOR Ot E78.00 PURE HYPERCHOLESTEROLEMIA, UNSPECIFIED 06/23/2018 MARTHA, DAVIS COMMUNITY HEALTH DIRECTOR Ot F03.90 UNSPECIFIED DEMENTIA WITHOUT BEHAVIORAL 06/23/2018 MARTHA, DAVIS COMMUNITY HEALTH DIRECTOR Ot F32.9 MAJOR DEPRESSIVE DISORDER, SINGLE EPISOD 06/23/2018 MARTHA, DAVIS COMMUNITY HEALTH DIRECTOR Ot F41.9 ANXIETY DISORDER, UNSPECIFIED 06/23/2018 MARTHA, DAVIS COMMUNITY HEALTH DIRECTOR Ot G47.30 SLEEP APNEA, UNSPECIFIED 06/23/2018 MARHTA, DAVIS COMMUNITY HEALTH DIRECTOR Ot I10 ESSENTIAL (PRIMARY) HYPERTENSION 06/23/2018 MARTHA, DAVIS COMMUNITY HEALTH DIRECTOR Ot I25.10 ATHSCL HEART DISEASE OF [place] CORONARY 06/23/2018 MARTHA, DAVIS COMMUNITY HEALTH DIRECTOR Ot I27.0 PRIMARY PULMONARY HYPERTENSION 06/23/2018 MARTHA, DAVIS COMMUNITY HEALTH DIRECTOR Ot I48.91 UNSPECIFIED ATRIAL FIBRILLATION 06/23/2018 MARTHA, DAVIS COMMUNITY HEALTH DIRECTOR Ot J44.9 CHRONIC OBSTRUCTIVE PULMONARY DISEASE, U 06/23/2018 MARTHA, DAVIS COMMUNITY HEALTH DIRECTOR Ot N39.0 URINARY TRACT INFECTION, SITE NOT SPECIF 06/23/2018 MARTHA DAVIS COMMUNITY HEALTH DIRECTOR Ot Z79.01 [facility] (CURRENT) USE OF ANTICOAGULANT 06/23/2018 MARTHA DAVIS COMMUNITY HEALTH DIRECTOR Ot Z79.4 [facility] (CURRENT) USE OF INSULIN 06/23/2018 MARTHA DAVIS COMMUNITY HEALTH DIRECTOR Ot Z79.52 [facility] (CURRENT) USE OF SYSTEMIC STER 06/23/2018 MARTHA DAVIS COMMUNITY HEALTH DIRECTOR Ot Z79.82 ENVIRONMENTAL DIRECTOR (CURRENT) USE OF ASPIRIN 06/23/2018 MARTHA DAVIS COMMUNITY HEALTH DIRECTOR Ot Z80.51 FAMILY HISTORY OF MALIGNANT NEOPLASM OF 06/23/2018 MARTHA DAVIS COMMUNITY HEALTH DIRECTOR Ot Z85.3 PERSONAL HISTORY OF MALIGNANT NEOPLASM O 06/23/2018 MARTHA DAVIS COMMUNITY HEALTH DIRECTOR Ot Z86.718 PERSONAL HISTORY OF OTHER VENOUS THROMBO 06/23/2018 MARTHA DAVIS COMMUNITY HEALTH DIRECTOR Ot Z87.01 PERSONAL HISTORY OF PNEUMONIA (RECURRENT 06/23/2018 MARTHA DAVIS COMMUNITY HEALTH DIRECTOR Ot Z88.0 ALLERGY STATUS TO PENICILLIN 06/23/2018 MARTHA DAVIS COMMUNITY HEALTH DIRECTOR Ot Z88.2 ALLERGY STATUS TO SULFONAMIDES STATUS 06/23/2018 MARTHADAVIS COMMUNITY HEALTH DIRECTOR Ot Z88.5 ALLERGY STATUS TO NARCOTIC AGENT STATUS 06/23/2018 MARTHADAVIS COMMUNITY HEALTH DIRECTOR Ot Z88.8 ALLERGY STATUS TO OTH DRUG/MEDS/BIOL SUB 06/23/2018 MARTHADAVIS COMMUNITY HEALTH DIRECTOR Ot Z90.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 06/23/2018 MARTHADAVIS COMMUNITY HEALTH DIRECTOR Ot Z90.710 ACQUIRED ABSENCE OF BOTH CERVIX AND UTER 06/23/2018 MARTHADAVIS FelixP Ot Z90.81 ACQUIRED ABSENCE OF SPLEEN 06/23/2018 MARTHADAVIS FelixP Ot Z90.89 ACQUIRED ABSENCE OF OTHER ORGANS 06/23/2018 MARTHADAVIS FelixP Ot Z92.21 PERSONAL HISTORY OF ANTINEOPLASTIC CHEMO 06/23/2018 MARTHADAVIS FelixP Ot Z98.890 OTHER SPECIFIED POSTPROCEDURAL STATES 07/11/2018 MORAIMA MOULTON, YANG Ku Ot E11. 9 TYPE 2 DIABETES MELLITUS WITHOUT COMPLIC 07/11/2018 YANG VALERA MD, Ot G47. 33 OBSTRUCTIVE SLEEP APNEA (ADULT) (PEDIATR 07/11/2018 YANG VALERA MD Ot H81. 09 MENIERE'S DISEASE, UNSPECIFIED EAR 07/11/2018 YANG VALERA MD Ot I10 ESSENTIAL (PRIMARY) HYPERTENSION 07/11/2018 YANG VALERA MD, Ot I25. 10 ATHSCL HEART DISEASE OF [place] CORONARY 07/11/2018 YANG VALERA MD, Ot I48. 91 UNSPECIFIED ATRIAL FIBRILLATION 07/11/2018 YANG VALERA MD, Ot K57. 30 DVRTCLOS OF LG INT W/O PERFORATION OR AB 07/11/2018 YANG VALERA MD Ot Z09 ENCNTR FOR F/U EXAM AFT TRTMT FOR COND O 07/11/2018 YANG VALERA MD Ot Z79. 01 ENVIRONMENTAL DIRECTOR (CURRENT) USE OF ANTICOAGULANT 07/11/2018 YANG VALERA MD, Ot Z85. 3 PERSONAL HISTORY OF MALIGNANT NEOPLASM O 07/11/2018 YANG VALERA MD, Ot Z86.010 PERSONAL HISTORY OF COLONIC POLYPS 07/11/2018 YANG VALERA MD, Ot Z86.718 PERSONAL HISTORY OF OTHER VENOUS THROMBO 07/11/2018 YANG VALERA MD Ot Z90. 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 07/14/2018 ERVIN OSBORNE MD Ot C92.0 0 ACUTE MYELOBLASTIC LEUKEMIA, NOT HAVING 07/14/2018 ERVIN OSBORNE MD Ot N28.1 CYST OF KIDNEY, ACQUIRED 07/15/2018 YANG VALERA MD Ot E11. 9 TYPE 2 DIABETES MELLITUS WITHOUT COMPLIC 07/15/2018 YANG VALERA MD, Ot G47. 33 OBSTRUCTIVE SLEEP APNEA (ADULT) (PEDIATR 07/15/2018 YANG VALERA MD Ot H81. 09 MENIERE'S DISEASE, UNSPECIFIED EAR 07/15/2018 YANG VALERA MD, Ot I10 ESSENTIAL (PRIMARY) HYPERTENSION 07/15/2018 YANG VALERA MD, Ot I25. 10 ATHSCL HEART DISEASE OF [place] CORONARY 07/15/2018 YANG VALERA MD, Ot I48. 91 UNSPECIFIED ATRIAL FIBRILLATION 07/15/2018 YANG VALERA MD, Ot K57. 30 DVRTCLOS OF LG INT W/O PERFORATION OR AB 07/15/2018 YANG VALERA MD, Ot Z09 ENCNTR FOR F/U EXAM AFT TRTMT FOR COND O 07/15/2018 YANG VALERA MD Ot Z79. 01 [facility] (CURRENT) USE OF ANTICOAGULANT 07/15/2018 YANG VALERA MD Ot Z85. 3 PERSONAL HISTORY OF MALIGNANT NEOPLASM O 07/15/2018 YANG VALERA MD Ot Z86.010 PERSONAL HISTORY OF COLONIC POLYPS 07/15/2018 YANG VALERA MD Ot Z86.718 PERSONAL HISTORY OF OTHER VENOUS THROMBO 07/15/2018 YANG VALERA MD Ot Z90. 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 07/17/2018 FAITH TURK Ot B02.29 OTHER POSTHERPETIC NERVOUS SYSTEM INVOLV 07/17/2018 FAITH TURK Ot E11.9 TYPE 2 DIABETES MELLITUS WITHOUT COMPLIC 07/17/2018 FAITH TURK Ot E78.5 HYPERLIPIDEMIA, UNSPECIFIED 07/17/2018 FAITH TURK N Ot G47.33 OBSTRUCTIVE SLEEP APNEA (ADULT) (PEDIATR 07/17/2018 FAITH TURK N Ot I10 ESSENTIAL (PRIMARY) HYPERTENSION 07/17/2018 FAITH TURK N Ot I27.20 PULMONARY HYPERTENSION, UNSPECIFIED 07/17/2018 FAITH TURK Ot I48.2 CHRONIC ATRIAL FIBRILLATION 07/17/2018 FAITH TURK Ot Z08 ENCNTR FOR FOLLOW-UP EXAM AFTER TRTMT FO 07/17/2018 FAITH TURK Ot Z79.01 ENVIRONMENTAL DIRECTOR (CURRENT) USE OF ANTICOAGULANT 07/17/2018 FAITH TURK Ot Z79.4 [facility] (CURRENT) USE OF INSULIN 07/17/2018 FAITH TURK Ot Z79.82 [facility] (CURRENT) USE OF ASPIRIN 07/17/2018 FAITH TURK Ot Z79.899 OTHER ENVIRONMENTAL DIRECTOR (CURRENT) DRUG THERAPY 07/17/2018 FAITH TURK Ot Z85.3 PERSONAL HISTORY OF MALIGNANT NEOPLASM O 07/17/2018 FAITH TURK Ot Z86.711 PERSONAL HISTORY OF PULMONARY EMBOLISM 07/17/2018 FAITH TURK Ot Z86.718 PERSONAL HISTORY OF OTHER VENOUS THROMBO 07/17/2018 FAITH TURK Ot Z90.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 07/17/2018 FAITH TURK Ot Z92.21 PERSONAL HISTORY OF ANTINEOPLASTIC CHEMO 07/23/2018 Ot J01.01 ACU TE RECURRENT MAXILLARY SINUSITIS 08/04/2018 Ot J01.01 ACU TE RECURRENT MAXILLARY SINUSITIS 08/08/2018 JOSELUIS BORGES COMMUNITY HEALTH DIRECTOR Ot R92.8 OTH ABN AND INCONCLUSIVE FINDINGS ON DX 08/08/2018 JOSELUIS BORGES COMMUNITY HEALTH DIRECTOR Ot R92.8 OTH ABN AND INCONCLUSIVE FINDINGS ON DX 08/23/2018 JOSELUIS BORGES COMMUNITY HEALTH DIRECTOR Ot 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 08/23/2018 JOSELUIS BORGESP Ot R92.8 OTH ABN AND INCONCLUSIVE FINDINGS ON DX 08/23/2018 JOSELUIS BORGESP Ot Z12.31 ENCNTR SCREEN MAMMOGRAM FOR MALIGNANT NE 08/23/2018 JOSELUIS BORGES COMMUNITY HEALTH DIRECTOR Ot Z85.3 PERSONAL HISTORY OF MALIGNANT NEOPLASM O 09/06/2018 DEEPA MOULTON, YANG Devi Ot E11. 9 TYPE 2 DIABETES MELLITUS WITHOUT COMPLIC 09/06/2018 DEEPA MOULTON, YANG Devi Ot E78. 00 PURE HYPERCHOLESTEROLEMIA, UNSPECIFIED 09/06/2018 DEEPA MOULTON, YANG Devi Ot F03. 90 UNSPECIFIED DEMENTIA WITHOUT BEHAVIORAL 09/06/2018 DEEPA MOULTON, YANG Devi Ot F32. 9 MAJOR DEPRESSIVE DISORDER, SINGLE EPISOD 09/06/2018 DEEPA MOULTON, YANG Devi Ot F41. 9 ANXIETY DISORDER, UNSPECIFIED 09/06/2018 YANG ARENAS MD Ot I10 ESSENTIAL (PRIMARY) HYPERTENSION 09/06/2018 YANG ARENAS MD Ot I25. 10 ATHSCL HEART DISEASE OF [place] CORONARY 09/06/2018 YANG ARENAS MD Ot I48. 91 UNSPECIFIED ATRIAL FIBRILLATION 09/06/2018 YANG ARENAS MD Ot J44. 9 CHRONIC OBSTRUCTIVE PULMONARY DISEASE, U 09/06/2018 YANG ARENAS MD Ot R04. 0 EPISTAXIS 09/06/2018 YANG ARENAS MD Ot Z79. 01 [facility] (CURRENT) USE OF ANTICOAGULANT 09/06/2018 YANG ARENAS MD Ot Z79. 4 ENVIRONMENTAL DIRECTOR (CURRENT) USE OF INSULIN 09/06/2018 YANG ARENAS MD Ot Z85. 3 PERSONAL HISTORY OF MALIGNANT NEOPLASM O 09/06/2018 YANG ARENAS MD Ot Z86.711 PERSONAL HISTORY OF PULMONARY EMBOLISM 09/06/2018 YANG ARENAS MD Ot Z86.718 PERSONAL HISTORY OF OTHER VENOUS THROMBO 09/06/2018 YANG ARENAS MD Ot Z87. 01 PERSONAL HISTORY OF PNEUMONIA (RECURRENT 09/06/2018 YANG ARENAS MD Ot Z87. 09 PERSONAL HISTORY OF OTHER DISEASES OF TH 09/06/2018 YANG ARENAS MD Ot Z87. 19 PERSONAL HISTORY OF OTHER DISEASES OF TH 09/06/2018 YANG ARENAS MD Ot Z87. 81 PERSONAL HISTORY OF (HEALED) TRAUMATIC F 09/06/2018 YANG ARENAS MD Ot Z87.828 PERSONAL HISTORY OF OTH (HEALED) PHYSICA 09/06/2018 YANG ARENAS MD Ot Z88. 0 ALLERGY STATUS TO PENICILLIN 09/06/2018 YANG ARENAS MD Ot Z88. 2 ALLERGY STATUS TO SULFONAMIDES STATUS 09/06/2018 YANG ARENAS MD Ot Z88. 5 ALLERGY STATUS TO NARCOTIC AGENT STATUS 09/06/2018 YANG ARENAS MD Ot Z90. 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 09/06/2018 YANG ARENAS MD Ot Z90. 49 ACQUIRED ABSENCE OF OTHER SPECIFIED PART 09/06/2018 DEEPA MOULTON, YANG Devi Ot Z90.710 ACQUIRED ABSENCE OF BOTH CERVIX AND UTER 09/06/2018 DEEPA MOULTON, YANG Devi Ot Z90. 89 ACQUIRED ABSENCE OF OTHER ORGANS 09/13/2018 YANG VALERA MD Ot E11. 9 TYPE 2 DIABETES MELLITUS WITHOUT COMPLIC 09/13/2018 YANG VALERA MD Ot E78. 00 PURE HYPERCHOLESTEROLEMIA, UNSPECIFIED 09/13/2018 YANG VALERA MD Ot F03. 90 UNSPECIFIED DEMENTIA WITHOUT BEHAVIORAL 09/13/2018 YANG VALERA MD Ot F32. 9 MAJOR DEPRESSIVE DISORDER, SINGLE EPISOD 09/13/2018 YANG VALERA MD, Ot F41. 9 ANXIETY DISORDER, UNSPECIFIED 09/13/2018 YANG VALERA MD Ot I10 ESSENTIAL (PRIMARY) HYPERTENSION 09/13/2018 YANG VALERA MD Ot I25. 10 ATHSCL HEART DISEASE OF [place] CORONARY 09/13/2018 YANG VALERA MD Ot I48. 2 CHRONIC ATRIAL FIBRILLATION 09/13/2018 YANG VALERA MD Ot J44. 9 CHRONIC OBSTRUCTIVE PULMONARY DISEASE, U 09/13/2018 YANG VALERA MD Ot M79. 7 FIBROMYALGIA 09/13/2018 YANG VALERA MD Ot N19 UNSPECIFIED KIDNEY FAILURE 09/13/2018 YANG VALERA MD Ot R07. 9 CHEST PAIN, UNSPECIFIED 09/13/2018 YANG VALERA MD Ot R10. 11 RIGHT UPPER QUADRANT PAIN 09/13/2018 YANG VALERA MD Ot Z66 DO NOT RESUSCITATE 09/13/2018 YANG VALERA MD, Ot Z79. 4 ENVIRONMENTAL DIRECTOR (CURRENT) USE OF INSULIN 09/13/2018 YANG VALERA MD Ot Z79.899 OTHER ENVIRONMENTAL DIRECTOR (CURRENT) DRUG THERAPY 09/13/2018 YANG VALERA MD, Ot Z85. 3 PERSONAL HISTORY OF MALIGNANT NEOPLASM O 09/13/2018 YANG VALERA MD Ot Z86.718 PERSONAL HISTORY OF OTHER VENOUS THROMBO 09/13/2018 YANG VALERA MD, Ot Z87.891 PERSONAL HISTORY OF NICOTINE DEPENDENCE 09/13/2018 YANG VALERA MD Ot Z92. 21 PERSONAL HISTORY OF ANTINEOPLASTIC CHEMO 09/13/2018 YANG VALERA MD Ot E11. 9 TYPE 2 DIABETES MELLITUS WITHOUT COMPLIC 09/13/2018 YANG VALERA MD Ot E78. 00 PURE HYPERCHOLESTEROLEMIA, UNSPECIFIED 09/13/2018 YANG VALERA MD Ot F03. 90 UNSPECIFIED DEMENTIA WITHOUT BEHAVIORAL 09/13/2018 YANG VALERA MD Ot F32. 9 MAJOR DEPRESSIVE DISORDER, SINGLE EPISOD 09/13/2018 YANG VALERA MD Ot F41. 9 ANXIETY DISORDER, UNSPECIFIED 09/13/2018 YANG VALERA MD Ot I10 ESSENTIAL (PRIMARY) HYPERTENSION 09/13/2018 YANG VALERA MD Ot I25. 10 ATHSCL HEART DISEASE OF [place] CORONARY 09/13/2018 YANG VALERA MD Ot I48. 2 CHRONIC ATRIAL FIBRILLATION 09/13/2018 YANG VALERA MD Ot J44. 9 CHRONIC OBSTRUCTIVE PULMONARY DISEASE, U 09/13/2018 YANG VALERA MD Ot M79. 7 FIBROMYALGIA 09/13/2018 YANG VALERA MD Ot N19 UNSPECIFIED KIDNEY FAILURE 09/13/2018 YANG VALERA MD Ot R07. 9 CHEST PAIN, UNSPECIFIED 09/13/2018 YANG VALERA MD Ot R10. 11 RIGHT UPPER QUADRANT PAIN 09/13/2018 YANG VALERA MD Ot Z66 DO NOT RESUSCITATE 09/13/2018 YANG VALERA MD Ot Z79. 4 ENVIRONMENTAL DIRECTOR (CURRENT) USE OF INSULIN 09/13/2018 YANG VALERA MD Ot Z79.899 OTHER [facility] (CURRENT) DRUG THERAPY 09/13/2018 YANG VALERA MD Ot Z85. 3 PERSONAL HISTORY OF MALIGNANT NEOPLASM O 09/13/2018 YANG VALERA MD Ot Z86.718 PERSONAL HISTORY OF OTHER VENOUS THROMBO 09/13/2018 YANG VALERA MD Ot Z87.891 PERSONAL HISTORY OF NICOTINE DEPENDENCE 09/13/2018 YANG VALERA MD Ot Z92. 21 PERSONAL HISTORY OF ANTINEOPLASTIC CHEMO 09/16/2018 JAYE MENG APRN Ot E11 .9 TYPE 2 DIABETES MELLITUS WITHOUT COMPLIC 09/16/2018 JAYE MENG APRN Ot E78.00 PURE HYPERCHOLESTEROLEMIA, UNSPECIFIED 09/16/2018 JAYE MENG APRN Ot F03.90 UNSPECIFIED DEMENTIA WITHOUT BEHAVIORAL 09/16/2018 JAYE MENG APRN Ot F32 .9 MAJOR DEPRESSIVE DISORDER, SINGLE EPISOD 09/16/2018 JAYE MENG APRN Ot F41 .9 ANXIETY DISORDER, UNSPECIFIED 09/16/2018 JAYE MENG APRN Ot G47.30 SLEEP APNEA, UNSPECIFIED 09/16/2018 JAYE MENG APRN Ot I10 ESSENTIAL (PRIMARY) HYPERTENSION 09/16/2018 JAYE MENG APRN Ot I25.10 ATHSCL HEART DISEASE OF [place] CORONARY 09/16/2018 JAYE MENG APRN Ot I48.91 UNSPECIFIED ATRIAL FIBRILLATION 09/16/2018 JAYE MENG APRN Ot J44 .9 CHRONIC OBSTRUCTIVE PULMONARY DISEASE, U 09/16/2018 JAYE MENG APRN Ot N28 .9 DISORDER OF KIDNEY AND URETER, UNSPECIFI 09/16/2018 JAYE MENG APRN Ot N39 .0 URINARY TRACT INFECTION, SITE NOT SPECIF 09/16/2018 JAYE MENG APRN Ot R53 .1 WEAKNESS 09/16/2018 JAYE MENG APRN Ot Z79.01 [facility] (CURRENT) USE OF ANTICOAGULANT 09/16/2018 JAYE MENG APRN Ot Z79 .4 [facility] (CURRENT) USE OF INSULIN 09/16/2018 JAYE MENG APRN Ot Z79.51 ENVIRONMENTAL DIRECTOR (CURRENT) USE OF INHALED STERO 09/16/2018 JAYE MENG APRN Ot Z79.82 [facility] (CURRENT) USE OF ASPIRIN 09/16/2018 JAYE MENG APRN Ot Z80.51 FAMILY HISTORY OF MALIGNANT NEOPLASM OF 09/16/2018 JAYE MENG APRN Ot Z85 .3 PERSONAL HISTORY OF MALIGNANT NEOPLASM O 09/16/2018 JAYE MENG APRN Ot Z86.711 PERSONAL HISTORY OF PULMONARY EMBOLISM 09/16/2018 JAYE MENG APRN Ot Z86.718 PERSONAL HISTORY OF OTHER VENOUS THROMBO 09/16/2018 JAYE MENG APRN Ot Z87.440 PERSONAL HISTORY OF URINARY (TRACT) INFE 09/16/2018 JAYE MENG APRN Ot Z87.891 PERSONAL HISTORY OF NICOTINE DEPENDENCE 09/16/2018 JAYE MENG APRN Ot Z88 .0 ALLERGY STATUS TO PENICILLIN 09/16/2018 JAYE MENG APRN Ot Z88 .2 ALLERGY STATUS TO SULFONAMIDES STATUS 09/16/2018 JAYE MENG APRN Ot Z88 .5 ALLERGY STATUS TO NARCOTIC AGENT STATUS 09/16/2018 JAYE MENG APRN Ot Z90.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 09/16/2018 JAYE MENG APRN Ot Z90.710 ACQUIRED ABSENCE OF BOTH CERVIX AND UTER 09/16/2018 JAYE MENG APRN Ot Z90.81 ACQUIRED ABSENCE OF SPLEEN 09/16/2018 JAYE MENG APRN Ot Z98.890 OTHER SPECIFIED POSTPROCEDURAL STATES 09/18/2018 JAYE MENG APRN Ot E11 .9 TYPE 2 DIABETES MELLITUS WITHOUT COMPLIC 09/18/2018 JAYE MENG APRN Ot E78.00 PURE HYPERCHOLESTEROLEMIA, UNSPECIFIED 09/18/2018 JAYE MENG APRN Ot F03.90 UNSPECIFIED DEMENTIA WITHOUT BEHAVIORAL 09/18/2018 JAYE MENG APRN Ot F32 .9 MAJOR DEPRESSIVE DISORDER, SINGLE EPISOD 09/18/2018 JAYE MENG APRN Ot F41 .9 ANXIETY DISORDER, UNSPECIFIED 09/18/2018 JAYE MENG APRN Ot G47.30 SLEEP APNEA, UNSPECIFIED 09/18/2018 JAYE MENG APRN Ot I10 ESSENTIAL (PRIMARY) HYPERTENSION 09/18/2018 JAYE MENG APRN Ot I25.10 ATHSCL HEART DISEASE OF [place] CORONARY 09/18/2018 JAYE MENG APRN Ot I48.91 UNSPECIFIED ATRIAL FIBRILLATION 09/18/2018 JAYE MENG APRN Ot J44 .9 CHRONIC OBSTRUCTIVE PULMONARY DISEASE, U 09/18/2018 JAYE MENG APRN Ot N28 .9 DISORDER OF KIDNEY AND URETER, UNSPECIFI 09/18/2018 JAYE MENG APRN Ot N39 .0 URINARY TRACT INFECTION, SITE NOT SPECIF 09/18/2018 JAYE MENG APRN Ot R53 .1 WEAKNESS 09/18/2018 JAYE MENG APRN Ot Z79.01 ENVIRONMENTAL DIRECTOR (CURRENT) USE OF ANTICOAGULANT 09/18/2018 JAYE MENG APRN Ot Z79 .4 [facility] (CURRENT) USE OF INSULIN 09/18/2018 JAYE MENG APRN Ot Z79.51 ENVIRONMENTAL DIRECTOR (CURRENT) USE OF INHALED STERO 09/18/2018 JAYE MENG APRN Ot Z79.82 ENVIRONMENTAL DIRECTOR (CURRENT) USE OF ASPIRIN 09/18/2018 JAYE MENG APRN Ot Z80.51 FAMILY HISTORY OF MALIGNANT NEOPLASM OF 09/18/2018 JAYE MENG APRN Ot Z85 .3 PERSONAL HISTORY OF MALIGNANT NEOPLASM O 09/18/2018 JAYE MENG APRN Ot Z86.711 PERSONAL HISTORY OF PULMONARY EMBOLISM 09/18/2018 JAYE MENG APRN Ot Z86.718 PERSONAL HISTORY OF OTHER VENOUS THROMBO 09/18/2018 JAYE MENG APRN Ot Z87.440 PERSONAL HISTORY OF URINARY (TRACT) INFE 09/18/2018 JAYE MENG APRN Ot Z87.891 PERSONAL HISTORY OF NICOTINE DEPENDENCE 09/18/2018 JAYE MENG APRN Ot Z88 .0 ALLERGY STATUS TO PENICILLIN 09/18/2018 JAYE MENG APRN Ot Z88 .2 ALLERGY STATUS TO SULFONAMIDES STATUS 09/18/2018 JAYE MENG APRN Ot Z88 .5 ALLERGY STATUS TO NARCOTIC AGENT STATUS 09/18/2018 JAYE MENG APRN Ot Z90.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 09/18/2018 JAYE MENG APRN Ot Z90.710 ACQUIRED ABSENCE OF BOTH CERVIX AND UTER 09/18/2018 JAYE MENG APRN Ot Z90.81 ACQUIRED ABSENCE OF SPLEEN 09/18/2018 JAYE MENG APRN Ot Z98.890 OTHER SPECIFIED POSTPROCEDURAL STATES 09/19/2018 JOSELUIS BORGES Ot Z12.31 ENCNTR SCREEN MAMMOGRAM FOR MALIGNANT NE 09/23/2018 WILLARD PARR Ot G25.0 ESSENTIAL TREMOR 09/23/2018 WILLARD PARR Ot I48.0 PAROXYSMAL ATRIAL FIBRILLATION 09/23/2018 WILLARD PARR Ot R06.00 DYSPNEA, UNSPECIFIED 09/23/2018 WILLARD PARR Ot R07.9 CHEST PAIN, UNSPECIFIED 11/22/2018 WILLARD PARR Ot G25.0 ESSENTIAL TREMOR 11/22/2018 WILLARD PARR Ot I48.0 PAROXYSMAL ATRIAL FIBRILLATION 11/22/2018 WILLARD PARR Ot R06.00 DYSPNEA, UNSPECIFIED 11/22/2018 MONTOYA-AHMET PA, WILLARD K Ot R07.9 CHEST PAIN, UNSPECIFIED 12/03/2018 BRIAN HENDRICKSON MD Ot E11.9 TYPE 2 DIABETES MELLITUS WITHOUT COMPLIC 12/03/2018 BRIAN HENDRICKSON MD Ot E78.00 PURE HYPERCHOLESTEROLEMIA, UNSPECIFIED 12/03/2018 BRIAN HENDRICKSON MD Ot F03.90 UNSPECIFIED DEMENTIA WITHOUT BEHAVIORAL 12/03/2018 BRIAN HENDRICKSON MD Ot F31.9 BIPOLAR DISORDER, UNSPECIFIED 12/03/2018 BRIAN HENDRICKSON MD Ot F41.9 ANXIETY DISORDER, UNSPECIFIED 12/03/2018 BRIAN HENDRICKSON MD Ot G47.30 SLEEP APNEA, UNSPECIFIED 12/03/2018 BRIAN HENDRICKSON MD Ot I10 ESSENTIAL (PRIMARY) HYPERTENSION 12/03/2018 BRIAN HENDRICKSON MD Ot I25.10 ATHSCL HEART DISEASE OF [place] CORONARY 12/03/2018 BRIAN HENDRICKSON MD Ot I25.2 OLD MYOCARDIAL INFARCTION 12/03/2018 BRIAN HENDRICKSON MD Ot I27.0 PRIMARY PULMONARY HYPERTENSION 12/03/2018 BRIAN HENDRICKSON MD Ot I48.91 UNSPECIFIED ATRIAL FIBRILLATION 12/03/2018 BRIAN HENDRICKSON MD, Ot J32.9 CHRONIC SINUSITIS, UNSPECIFIED 12/03/2018 BRIAN HENDRICKSON MD, Ot J44.1 CHRONIC OBSTRUCTIVE PULMONARY DISEASE W 12/03/2018 BRIAN HENDRICKSON MD Ot R04.0 EPISTAXIS 12/03/2018 BRIAN HENDRICKSON MD Ot Z79.01 [facility] (CURRENT) USE OF ANTICOAGULANT 12/03/2018 BRIAN HENDRICKSON MD Ot Z79.02 ENVIRONMENTAL DIRECTOR (CURRENT) USE OF ANTITHROMBOTI 12/03/2018 BRIAN HENDRICKSON MD Ot Z79.4 [facility] (CURRENT) USE OF INSULIN 12/03/2018 BRIAN HENDRICKSON MD Ot Z79.51 ENVIRONMENTAL DIRECTOR (CURRENT) USE OF INHALED STERO 12/03/2018 BRIAN HENDRICKSON MD Ot Z79.82 [facility] (CURRENT) USE OF ASPIRIN 12/03/2018 BRIAN HENDRICKSON MD, Ot Z79.84 ENVIRONMENTAL DIRECTOR (CURRENT) USE OF ORAL HYPOGLYC 12/03/2018 BRIAN HENDRICKSON MD, Ot Z80.51 FAMILY HISTORY OF MALIGNANT NEOPLASM OF 12/03/2018 BRIAN HENDRICKSON MD, Ot Z85.3 PERSONAL HISTORY OF MALIGNANT NEOPLASM O 12/03/2018 BRIAN HENDRICKSON MD, Ot Z86.711 PERSONAL HISTORY OF PULMONARY EMBOLISM 12/03/2018 BRIAN HENDRICKSON MD, Ot Z86.718 PERSONAL HISTORY OF OTHER VENOUS THROMBO 12/03/2018 BRIAN HENDRICKSON MD, Ot Z87.891 PERSONAL HISTORY OF NICOTINE DEPENDENCE 12/03/2018 BRIAN HENDRICKSON MD, Ot Z88.0 ALLERGY STATUS TO PENICILLIN 12/03/2018 BRIAN HENDRICKSON MD, Ot Z88.2 ALLERGY STATUS TO SULFONAMIDES STATUS 12/03/2018 BRIAN HENDRICKSON MD, Ot Z90.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 12/03/2018 BRIAN HENDRICKSON MD, Ot Z90.710 ACQUIRED ABSENCE OF BOTH CERVIX AND UTER 12/03/2018 BRIAN HENDRICKSON MD Ot Z90.81 ACQUIRED ABSENCE OF SPLEEN 12/05/2018 RBIAN HENDRICKSON MD, Ot E11.9 TYPE 2 DIABETES MELLITUS WITHOUT COMPLIC 12/05/2018 BRIAN HENDRICKSON MD, Ot E78.00 PURE HYPERCHOLESTEROLEMIA, UNSPECIFIED 12/05/2018 BRIAN HENDRICKSON MD Ot F03.90 UNSPECIFIED DEMENTIA WITHOUT BEHAVIORAL 12/05/2018 BRIAN HENDRICKSON MD, Ot F31.9 BIPOLAR DISORDER, UNSPECIFIED 12/05/2018 BRIAN HENDRICKSON MD, Ot F41.9 ANXIETY DISORDER, UNSPECIFIED 12/05/2018 BRIAN HENDRICKSON MD, Ot G47.30 SLEEP APNEA, UNSPECIFIED 12/05/2018 BRIAN HENDRICKSON MD, Ot I10 ESSENTIAL (PRIMARY) HYPERTENSION 12/05/2018 BRIAN HENDRICKSON MD, Ot I25.10 ATHSCL HEART DISEASE OF [place] CORONARY 12/05/2018 BRIAN HENDRICKSON MD, Ot I25.2 OLD MYOCARDIAL INFARCTION 12/05/2018 BRIAN HENDRICKSON MD, Ot I27.0 PRIMARY PULMONARY HYPERTENSION 12/05/2018 BRIAN HENDRICKSON MD, Ot I48.91 UNSPECIFIED ATRIAL FIBRILLATION 12/05/2018 BRIAN HENDRICKSON MD, Ot J32.9 CHRONIC SINUSITIS, UNSPECIFIED 12/05/2018 BRIAN HENDRICKSON MD, Ot J44.1 CHRONIC OBSTRUCTIVE PULMONARY DISEASE W 12/05/2018 BRIAN HENDRICKSON MD, Ot R04.0 EPISTAXIS 12/05/2018 BRIAN HENDRICKSON MD, Ot Z79.01 [facility] (CURRENT) USE OF ANTICOAGULANT 12/05/2018 BRIAN HENDRICKSON MD, Ot Z79.02 ENVIRONMENTAL DIRECTOR (CURRENT) USE OF ANTITHROMBOTI 12/05/2018 BRIAN HENDRICKSON MD, Ot Z79.4 ENVIRONMENTAL DIRECTOR (CURRENT) USE OF INSULIN 12/05/2018 BRIAN HENDRICKSON MD, Ot Z79.51 ENVIRONMENTAL DIRECTOR (CURRENT) USE OF INHALED STERO 12/05/2018 BRIAN HENDRICKSON MD, Ot Z79.82 ENVIRONMENTAL DIRECTOR (CURRENT) USE OF ASPIRIN 12/05/2018 BRIAN HENDRICKSON MD, Ot Z79.84 ENVIRONMENTAL DIRECTOR (CURRENT) USE OF ORAL HYPOGLYC 12/05/2018 BRIAN HENDRICKSON MD, Ot Z80.51 FAMILY HISTORY OF MALIGNANT NEOPLASM OF 12/05/2018 BRIAN HENDRICKSON MD, Ot Z85.3 PERSONAL HISTORY OF MALIGNANT NEOPLASM O 12/05/2018 BRIAN HENDRICKSON MD, Ot Z86.711 PERSONAL HISTORY OF PULMONARY EMBOLISM 12/05/2018 BRIAN HENDRICKSON MD, Ot Z86.718 PERSONAL HISTORY OF OTHER VENOUS THROMBO 12/05/2018 BRIAN HENDRICKSON MD, Ot Z87.891 PERSONAL HISTORY OF NICOTINE DEPENDENCE 12/05/2018 BRIAN HENDRICKSON MD, Ot Z88.0 ALLERGY STATUS TO PENICILLIN 12/05/2018 BRIAN HENDRICKSON MD Ot Z88.2 ALLERGY STATUS TO SULFONAMIDES STATUS 12/05/2018 BRIAN HENDRICKSON MD, Ot Z90.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 12/05/2018 BRIAN HENDRICKSON MD Ot Z90.710 ACQUIRED ABSENCE OF BOTH CERVIX AND UTER 12/05/2018 BRIAN HENDRICKSON MD Ot Z90.81 ACQUIRED ABSENCE OF SPLEEN 12/29/2018 KIMO KUMAR MD Ot B02. 9 ZOSTER WITHOUT COMPLICATIONS 12/29/2018 KIMO KUMAR MD Ot E11. 40 TYPE 2 DIABETES MELLITUS WITH DIABETIC N 12/29/2018 KIMO KUMAR MD Ot E78. 00 PURE HYPERCHOLESTEROLEMIA, UNSPECIFIED 12/29/2018 KIMO KUMAR MD Ot F03. 90 UNSPECIFIED DEMENTIA WITHOUT BEHAVIORAL 12/29/2018 KIMO KUMAR MD Ot F31. 9 BIPOLAR DISORDER, UNSPECIFIED 12/29/2018 KIMO KUMAR MD Ot F41. 9 ANXIETY DISORDER, UNSPECIFIED 12/29/2018 KIMO KUMAR MD Ot G47. 30 SLEEP APNEA, UNSPECIFIED 12/29/2018 KIMO KUMAR MD Ot I10 ESSENTIAL (PRIMARY) HYPERTENSION 12/29/2018 KIMO KUMAR MD Ot I25. 10 ATHSCL HEART DISEASE OF [place] CORONARY 12/29/2018 KIMO KUMAR MD Ot I25. 2 OLD MYOCARDIAL INFARCTION 12/29/2018 KIMO KUMAR MD Ot I48. 91 UNSPECIFIED ATRIAL FIBRILLATION 12/29/2018 KIMO KUMAR MD Ot J44. 9 CHRONIC OBSTRUCTIVE PULMONARY DISEASE, U 12/29/2018 KIMO KUMAR MD Ot R07. 81 PLEURODYNIA 12/29/2018 KIMO KUMAR MD Ot Z79. 01 [facility] (CURRENT) USE OF ANTICOAGULANT 12/29/2018 KIMO KUMAR MD Ot Z79. 4 [facility] (CURRENT) USE OF INSULIN 12/29/2018 KIMO KUMAR MD Ot Z79. 51 ENVIRONMENTAL DIRECTOR (CURRENT) USE OF INHALED STERO 12/29/2018 KIMO KUMAR MD Ot Z79. 82 [facility] (CURRENT) USE OF ASPIRIN 12/29/2018 KIMO KUMAR MD Ot Z80. 51 FAMILY HISTORY OF MALIGNANT NEOPLASM OF 12/29/2018 KIMO KUMAR MD Ot Z85. 3 PERSONAL HISTORY OF MALIGNANT NEOPLASM O 12/29/2018 KIMO KUMAR MD Ot Z86.711 PERSONAL HISTORY OF PULMONARY EMBOLISM 12/29/2018 KIMO KUMAR MD Ot Z86.718 PERSONAL HISTORY OF OTHER VENOUS THROMBO 12/29/2018 KIMO KUMAR MD Ot Z87. 01 PERSONAL HISTORY OF PNEUMONIA (RECURRENT 12/29/2018 KIMO KUMAR MD Ot Z87.891 PERSONAL HISTORY OF NICOTINE DEPENDENCE 12/29/2018 KIMO KUMAR MD Ot Z88. 0 ALLERGY STATUS TO PENICILLIN 12/29/2018 KIMO KUMAR MD Ot Z88. 2 ALLERGY STATUS TO SULFONAMIDES STATUS 12/29/2018 KIMO KUMAR MD Ot Z88. 5 ALLERGY STATUS TO NARCOTIC AGENT STATUS 12/29/2018 KIMO KUMAR MD Ot Z90. 49 ACQUIRED ABSENCE OF OTHER SPECIFIED PART 12/29/2018 KIMO KUMAR MD Ot Z90.710 ACQUIRED ABSENCE OF BOTH CERVIX AND UTER 12/29/2018 KIMO KUMAR MD Ot Z90. 89 ACQUIRED ABSENCE OF OTHER ORGANS 12/29/2018 KIMO KUMAR MD Ot Z92. 21 PERSONAL HISTORY OF ANTINEOPLASTIC CHEMO 12/31/2018 KIMO KUMAR MD Ot B02. 9 ZOSTER WITHOUT COMPLICATIONS 12/31/2018 KIMO KUMAR MD Ot E11. 40 TYPE 2 DIABETES MELLITUS WITH DIABETIC N 12/31/2018 KIMO KUMAR MD Ot E78. 00 PURE HYPERCHOLESTEROLEMIA, UNSPECIFIED 12/31/2018 KIMO KUMAR MD Ot F03. 90 UNSPECIFIED DEMENTIA WITHOUT BEHAVIORAL 12/31/2018 KIMO KUMAR MD Ot F31. 9 BIPOLAR DISORDER, UNSPECIFIED 12/31/2018 KIMO KUMAR MD Ot F41. 9 ANXIETY DISORDER, UNSPECIFIED 12/31/2018 KIMO KUMAR MD Ot G47. 30 SLEEP APNEA, UNSPECIFIED 12/31/2018 KIMO KUMAR MD Ot I10 ESSENTIAL (PRIMARY) HYPERTENSION 12/31/2018 KIMO KUMAR MD Ot I25. 10 ATHSCL HEART DISEASE OF [place] CORONARY 12/31/2018 KIMO KUMAR MD Ot I25. 2 OLD MYOCARDIAL INFARCTION 12/31/2018 KIMO KUMAR MD Ot I48. 91 UNSPECIFIED ATRIAL FIBRILLATION 12/31/2018 KIMO KUMAR MD Ot J44. 9 CHRONIC OBSTRUCTIVE PULMONARY DISEASE, U 12/31/2018 KIMO KUMAR MD Ot R07. 81 PLEURODYNIA 12/31/2018 KIMO KUMAR MD Ot Z79. 01 ENVIRONMENTAL DIRECTOR (CURRENT) USE OF ANTICOAGULANT 12/31/2018 KIMO KUMAR MD Ot Z79. 4 [facility] (CURRENT) USE OF INSULIN 12/31/2018 KIMO KUMAR MD Ot Z79. 51 [facility] (CURRENT) USE OF INHALED STERO 12/31/2018 KIMO KUMAR MD Ot Z79. 82 ENVIRONMENTAL DIRECTOR (CURRENT) USE OF ASPIRIN 12/31/2018 KIMO KUMAR MD Ot Z80. 51 FAMILY HISTORY OF MALIGNANT NEOPLASM OF 12/31/2018 KIMO KUMAR MD Ot Z85. 3 PERSONAL HISTORY OF MALIGNANT NEOPLASM O 12/31/2018 KIMO KUMAR MD Ot Z86.711 PERSONAL HISTORY OF PULMONARY EMBOLISM 12/31/2018 KIMO KUMAR MD Ot Z86.718 PERSONAL HISTORY OF OTHER VENOUS THROMBO 12/31/2018 KIMO KUMAR MD Ot Z87. 01 PERSONAL HISTORY OF PNEUMONIA (RECURRENT 12/31/2018 KIMO KUMAR MD Ot Z87.891 PERSONAL HISTORY OF NICOTINE DEPENDENCE 12/31/2018 KIMO KUMAR MD Ot Z88. 0 ALLERGY STATUS TO PENICILLIN 12/31/2018 KIMO KUMAR MD Ot Z88. 2 ALLERGY STATUS TO SULFONAMIDES STATUS 12/31/2018 KIMO KUMAR MD Ot Z88. 5 ALLERGY STATUS TO NARCOTIC AGENT STATUS 12/31/2018 KIMO KUMAR MD Ot Z90. 49 ACQUIRED ABSENCE OF OTHER SPECIFIED PART 12/31/2018 KIMO KUMAR MD Ot Z90.710 ACQUIRED ABSENCE OF BOTH CERVIX AND UTER 12/31/2018 KIMO KUMAR MD Ot Z90. 89 ACQUIRED ABSENCE OF OTHER ORGANS 12/31/2018 KIMO KUMAR MD Ot Z92. 21 PERSONAL HISTORY OF ANTINEOPLASTIC CHEMO 01/11/2019 FARZAD MOULTON, MEGHA Ku Ot 786.2 COUGH 01/11/2019 JOSELUIS BORGES COMMUNITY HEALTH DIRECTOR Ot 174.9 MALIGN NEOPL BREAST NOS 01/11/2019 JOSELUIS BORGES COMMUNITY HEALTH DIRECTOR Ot V67.9 FOLLOW-UP EXAM NOS 01/11/2019 EDY OSBORNE MDAS A Ot 593.2 CYST OF KIDNEY, ACQUIRED 01/11/2019 NIRAV MOULTON, ARI Ot V72.84 EXAM PRE-OPERATIVE NOS 01/11/2019 INDIA MOULTON, ERVIN Lanier Ot 593.2 CYST OF KIDNEY, ACQUIRED 01/11/2019 FAITH TURK Ot 174.9 MALIGN NEOPL BREAST NOS 01/11/2019 FAITH TURK Ot V67.9 FOLLOW-UP EXAM NOS 01/11/2019 FAITH TURK Ot 793.80 UNSPEC ABNORMAL MAMMOGRAM 01/11/2019 RAVEN LEO WILL CALL ORDER CLERK Ot 729.5 PAIN IN LIMB 01/11/2019 RAVEN LEO WILL CALL ORDER CLERK Ot 786.05 SHORTNESS OF BREATH 01/11/2019 INDIA MOULTON, ERVIN Lanier Ot 593.2 CYST OF KIDNEY, ACQUIRED 01/11/2019 FARZAD MOULTON, MEGHA Ku Ot 428.0 CONGESTIVE HEART FAILURE NOS 01/11/2019 ERVIN OSBORNE MD Ot 753.1 0 CYSTIC KIDNEY DISEASE, UNSPECIFIED 01/11/2019 FAITH TURK Ot V10.3 HX OF BREAST MALIGNANCY 01/11/2019 FAITH TURK Ot V12.51 HX- VENOUS THROMBOSIS EMBOLISM 01/11/2019 FAITH TURK Ot V12.55 PERSONAL HISTORY OF PULMONARY EMBOLISM 01/11/2019 FAITH TURK Ot V45.71 ACQUIRED ABSENCE OF BREAST AND NIPPLE 01/11/2019 FAITH TURK Ot V58.61 ANTICOAGULANTS,LT,CURRENT USE 01/11/2019 FAITH TURK Ot V58.69 OTH MED,LT,CURRENT USE 01/11/2019 FAITH TURK Ot V67.2 CHEMOTHERAPY FOLLOW-UP 01/11/2019 FAITH TURK Ot 174.9 MALIGN NEOPL BREAST NOS 01/11/2019 FARZAD MOULTON, MEGHA Ku Ot 276.1 HYPOSMOLALITY 01/11/2019 MEGHA PANDA MD Ot 250.0 0 DIAB TJ WO COMPL, TYPE II OR UNSPEC TY 01/11/2019 MEGHA PANDA MD Ot 276.8 HYPOPOTASSEMIA 01/11/2019 MEGHA PANDA MD Ot 250.0 0 DIAB TJ WO COMPL, TYPE II OR UNSPEC TY 01/11/2019 MEGHA PANDA MD Ot V58.6 9 OTH MED,LT,CURRENT USE 01/11/2019 MEGHA PANDA MD Ot L03.9 0 CELLULITIS, UNSPECIFIED 01/11/2019 MEGHA PANDA MD Ot Z51.8 1 ENCOUNTER FOR THERAPEUTIC DRUG LEVEL MON 01/11/2019 MEGHA PANDA MD Ot Z79.2 ENVIRONMENTAL DIRECTOR (CURRENT) USE OF ANTIBIOTICS 01/11/2019 AGATHA ESPINAL Ot N39.0 URINARY TRACT INFECTION, SITE NOT SPECIF 01/11/2019 DANY ESPINAL DO Ot E03.9 HYPOTHYROIDISM, UNSPECIFIED 01/11/2019 DANY ESPINAL DO Ot I48.2 CHRONIC ATRIAL FIBRILLATION 01/11/2019 DANY ESPINAL DO Ot N39.0 URINARY TRACT INFECTION, SITE NOT SPECIF 01/11/2019 DANY ESPINAL DO Ot N39.0 URINARY TRACT INFECTION, SITE NOT SPECIF 01/11/2019 Ot 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 01/11/2019 Ot N28.1 CYST OF KIDNEY, ACQUIRED 01/11/2019 JOSELUIS BORGES Ot Z 08 ENCNTR FOR FOLLOW-UP EXAM AFTER TRTMT FO 01/11/2019 JOSELUIS BORGES Ot Z79.01 [facility] (CURRENT) USE OF ANTICOAGULANT 01/11/2019 JOSELUIS BORGES Ot Z85.3 PERSONAL HISTORY OF MALIGNANT NEOPLASM O 01/11/2019 JOSELUIS BORGES Ot Z86.718 PERSONAL HISTORY OF OTHER VENOUS THROMBO 01/11/2019 JOSELUIS BORGES Ot Z90.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 01/11/2019 JOSELUIS BORGES Ot Z12.31 ENCNTR SCREEN MAMMOGRAM FOR MALIGNANT NE 01/11/2019 DANY ESPINAL DO Ot F02.81 DEMENTIA IN OT DISEASES CLASSD ELSWHR W 01/11/2019 DANY ESPINAL DO Ot 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, 01/11/2019 JOSELUIS BORGES Ot R92.8 OT ABN AND INCONCLUSIVE FINDINGS ON DX 01/11/2019 LAKISHA MOULTON, SHEELA Short Ot E78. 2 MIXED HYPERLIPIDEMIA 01/11/2019 SHEELA BANUELOS MD Ot G25. 0 ESSENTIAL TREMOR 01/11/2019 LAKISHA MOULTON, SHEELA Short Ot I10 ESSENTIAL (PRIMARY) HYPERTENSION 01/11/2019 LAKISHA MOULTON, SHEELA Short Ot I48. 0 PAROXYSMAL ATRIAL FIBRILLATION 01/11/2019 LAKISHA MOULTON, SHEELA Short Ot R07. 9 CHEST PAIN, UNSPECIFIED 01/11/2019 MARSHA GALLOWAYM, FRANCK Maximino Ot M79.604 PAIN IN RIGHT LEG 01/11/2019 AGATHA ESPINAL COMMUNITY HEALTH DIRECTOR Ot N28.1 CYST OF KIDNEY, ACQUIRED 01/11/2019 AAGTHA ESPINAL COMMUNITY HEALTH DIRECTOR Ot R10.2 PELVIC AND PERINEAL PAIN 01/11/2019 INDIA MOULTON, ERVIN Lanier Ot N28.1 CYST OF KIDNEY, ACQUIRED 01/11/2019 FAITH TURK Ot B02.29 OTHER POSTHERPETIC NERVOUS SYSTEM INVOLV 01/11/2019 FAITH TURK Ot E11.9 TYPE 2 DIABETES MELLITUS WITHOUT COMPLIC 01/11/2019 FAITH TURK Ot E78.5 HYPERLIPIDEMIA, UNSPECIFIED 01/11/2019 FAITH TURK Ot G47.33 OBSTRUCTIVE SLEEP APNEA (ADULT) (PEDIATR 01/11/2019 FAITH TURK Ot I10 ESSENTIAL (PRIMARY) HYPERTENSION 01/11/2019 FAITH TURK Ot I27.20 PULMONARY HYPERTENSION, UNSPECIFIED 01/11/2019 FAITH TURK Ot I48.2 CHRONIC ATRIAL FIBRILLATION 01/11/2019 FAITH TURK Ot Z08 ENCNTR FOR FOLLOW-UP EXAM AFTER TRTMT FO 01/11/2019 FAITH TURK Ot Z79.01 [facility] (CURRENT) USE OF ANTICOAGULANT 01/11/2019 FAITH TURK Ot Z79.4 ENVIRONMENTAL DIRECTOR (CURRENT) USE OF INSULIN 01/11/2019 FAITH TURK Ot Z79.82 ENVIRONMENTAL DIRECTOR (CURRENT) USE OF ASPIRIN 01/11/2019 FAITH TURK Ot Z79.899 OTHER [facility] (CURRENT) DRUG THERAPY 01/11/2019 FAITH TURK Ot Z85.3 PERSONAL HISTORY OF MALIGNANT NEOPLASM O 01/11/2019 FAITH TURK Ot Z86.711 PERSONAL HISTORY OF PULMONARY EMBOLISM 01/11/2019 FAITH TURK Ot Z86.718 PERSONAL HISTORY OF OTHER VENOUS THROMBO 01/11/2019 FAITH TURK Ot Z90.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 01/11/2019 FAITH TURK Ot Z92.21 PERSONAL HISTORY OF ANTINEOPLASTIC CHEMO 01/11/2019 KO KENDRICK DO Ot M51.36 OTHER INTERVERTEBRAL DISC DEGENERATION, 01/11/2019 FAITH TURK Ot R92.8 OTH ABN AND INCONCLUSIVE FINDINGS ON DX 01/11/2019 FAITH TURK Ot E11.9 TYPE 2 DIABETES MELLITUS WITHOUT COMPLIC 01/11/2019 FAITH TURK Ot E78.5 HYPERLIPIDEMIA, UNSPECIFIED 01/11/2019 FAITH TURK Ot I10 ESSENTIAL (PRIMARY) HYPERTENSION 01/11/2019 FAITH TURK Ot Z08 ENCNTR FOR FOLLOW-UP EXAM AFTER TRTMT FO 01/11/2019 FAITH TURK Ot Z79.01 ENVIRONMENTAL DIRECTOR (CURRENT) USE OF ANTICOAGULANT 01/11/2019 FAITH TURK Evy Ot Z79.4 [facility] (CURRENT) USE OF INSULIN 01/11/2019 FAITH TURK Ot Z85.3 PERSONAL HISTORY OF MALIGNANT NEOPLASM O 01/11/2019 FAITH TURK Ot Z86.718 PERSONAL HISTORY OF OTHER VENOUS THROMBO 01/11/2019 FAITH TURK Ot Z90.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 01/11/2019 FAITH TURK Ot Z92.21 PERSONAL HISTORY OF ANTINEOPLASTIC CHEMO 01/11/2019 JOSELUIS BORGES Ot C50.911 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 01/11/2019 JOSELUIS BORGESP Ot 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 01/11/2019 DANY ESPINAL DO Ot J32.9 CHRONIC SINUSITIS, UNSPECIFIED 01/11/2019 INDIA MOULTON, ERVIN Lanier Ot C92.0 0 ACUTE MYELOBLASTIC LEUKEMIA, NOT HAVING 01/11/2019 INDIA MOULTON, ERVIN Lanier Ot N28.1 CYST OF KIDNEY, ACQUIRED 01/11/2019 JOSELUIS BORGES COMMUNITY HEALTH DIRECTOR Ot 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 01/11/2019 JOSELUIS BORGES Ot R92.8 OTH ABN AND INCONCLUSIVE FINDINGS ON DX 01/11/2019 JOSELUIS BORGES Ot Z12.31 ENCNTR SCREEN MAMMOGRAM FOR MALIGNANT NE 01/11/2019 JONYJOSELUIS JASON Ot Z85.3 PERSONAL HISTORY OF MALIGNANT NEOPLASM O 01/11/2019 Ot J01.01 ACU TE RECURRENT MAXILLARY SINUSITIS 01/11/2019 BORGESJOSELUIS Devi JASON Ot Z12.31 ENCNTR SCREEN MAMMOGRAM FOR MALIGNANT NE 01/11/2019 YANG JASSO, WILLARD Harley Ot G25.0 ESSENTIAL TREMOR 01/11/2019 YANG JASSO, WILLARD Harley Ot I48.0 PAROXYSMAL ATRIAL FIBRILLATION 01/11/2019 YANG JASSO, WILLARD Harley Ot R06.00 DYSPNEA, UNSPECIFIED 01/11/2019 YANG JASSO, WILLARD Harley Ot R07.9 CHEST PAIN, UNSPECIFIED 01/12/2019 SARAH DO NELLY K Ot E11.40 TYPE 2 DIABETES MELLITUS WITH DIABETIC N 01/12/2019 SARAH DO NELLY K Ot E78.00 PURE HYPERCHOLESTEROLEMIA, UNSPECIFIED 01/12/2019 SARAH DO NELLY K Ot F03.90 UNSPECIFIED DEMENTIA WITHOUT BEHAVIORAL 01/12/2019 SARAH DO NELLY K Ot F31.9 BIPOLAR DISORDER, UNSPECIFIED 01/12/2019 SARAH DO NELLY K Ot F41.9 ANXIETY DISORDER, UNSPECIFIED 01/12/2019 SARAH DO NELLY K Ot G47.30 SLEEP APNEA, UNSPECIFIED 01/12/2019 SARAH DO NELLY K Ot I10 ESSENTIAL (PRIMARY) HYPERTENSION 01/12/2019 SARAH DO NELLY K Ot I11.0 HYPERTENSIVE HEART DISEASE WITH HEART FA 01/12/2019 SARAH DO NELLY K Ot I25.10 ATHSCL HEART DISEASE OF [place] CORONARY 01/12/2019 SARAH DO NELLY K Ot I25.2 OLD MYOCARDIAL INFARCTION 01/12/2019 SARAH DO NELLY K Ot I27.0 PRIMARY PULMONARY HYPERTENSION 01/12/2019 SARAH DO NELLY K Ot I48.2 CHRONIC ATRIAL FIBRILLATION 01/12/2019 SARAH DO NELLY K Ot I48.91 UNSPECIFIED ATRIAL FIBRILLATION 01/12/2019 SARAH DO NELLY K Ot I50.9 HEART FAILURE, UNSPECIFIED 01/12/2019 SARAH DO NELLY K Ot J18.9 PNEUMONIA, UNSPECIFIED ORGANISM 01/12/2019 NELLY SMITH DO, Ot J44.9 CHRONIC OBSTRUCTIVE PULMONARY DISEASE, U 01/12/2019 NELLY SMITH DO, Ot R07.89 OTHER CHEST PAIN 01/12/2019 NELLY SMITH DO, Ot Z79.51 ENVIRONMENTAL DIRECTOR (CURRENT) USE OF INHALED STERO 01/12/2019 NELLY SMITH DO Ot Z79.52 [facility] (CURRENT) USE OF SYSTEMIC STER 01/12/2019 NELLY SMITH DO Ot Z79.82 [facility] (CURRENT) USE OF ASPIRIN 01/12/2019 SARAH NELLY CHAUHAN Ot Z80.51 FAMILY HISTORY OF MALIGNANT NEOPLASM OF 01/12/2019 NELLY SMITH DO, Ot Z85.3 PERSONAL HISTORY OF MALIGNANT NEOPLASM O 01/12/2019 NELLY SMITH DO, Ot Z86.19 PERSONAL HISTORY OF OTHER INFECTIOUS AND 01/12/2019 SARAH NELLY CHAUHAN Ot Z86.718 PERSONAL HISTORY OF OTHER VENOUS THROMBO 01/12/2019 NELLY SMITH DO, Ot Z87.01 PERSONAL HISTORY OF PNEUMONIA (RECURRENT 01/12/2019 NELLY SMITH DO Ot Z87.19 PERSONAL HISTORY OF OTHER DISEASES OF TH 01/12/2019 NELLY SMITH DO, Ot Z87.440 PERSONAL HISTORY OF URINARY (TRACT) INFE 01/12/2019 NELLY SMITH DO, Ot Z87.891 PERSONAL HISTORY OF NICOTINE DEPENDENCE 01/12/2019 SARAH NELLY CHAUHAN Ot Z88.0 ALLERGY STATUS TO PENICILLIN 01/12/2019 NELLY SMITH DO Ot Z88.2 ALLERGY STATUS TO SULFONAMIDES STATUS 01/12/2019 SARAH NELLY CHAUHAN Ot Z88.5 ALLERGY STATUS TO NARCOTIC AGENT STATUS 01/12/2019 SARAH NELLY CHAUHAN Ot Z88.8 ALLERGY STATUS TO OTH DRUG/MEDS/BIOL SUB 01/12/2019 NELLY SMITH DO, Ot Z90.49 ACQUIRED ABSENCE OF OTHER SPECIFIED PART 01/12/2019 NELLY SMITH DO Ot Z90.710 ACQUIRED ABSENCE OF BOTH CERVIX AND UTER 01/12/2019 NELLY SMITH DO Ot Z90.89 ACQUIRED ABSENCE OF OTHER ORGANS 01/12/2019 NELLY SMITH DO Ot Z92.21 PERSONAL HISTORY OF ANTINEOPLASTIC CHEMO 01/12/2019 NELLY SMITH DO Ot Z98.890 OTHER SPECIFIED POSTPROCEDURAL STATES 01/12/2019 NELLY SMITH DO Ot Z99.81 DEPENDENCE ON SUPPLEMENTAL OXYGEN 01/22/2019 SARAH NELLY CHAUHAN Ot E11.40 TYPE 2 DIABETES MELLITUS WITH DIABETIC N 01/22/2019 SARAH NELLY CHAUHAN Ot E78.00 PURE HYPERCHOLESTEROLEMIA, UNSPECIFIED 01/22/2019 SARAH NELLY CHAUHAN Ot F03.90 UNSPECIFIED DEMENTIA WITHOUT BEHAVIORAL 01/22/2019 SARAH NELLY CHAUHAN Ot F31.9 BIPOLAR DISORDER, UNSPECIFIED 01/22/2019 SARAH NELLY CHAUHAN Ot F41.9 ANXIETY DISORDER, UNSPECIFIED 01/22/2019 SARAH NELLY CHAUHAN Ot G47.30 SLEEP APNEA, UNSPECIFIED 01/22/2019 SARAH NELLY CHAUHAN Ot I11.0 HYPERTENSIVE HEART DISEASE WITH HEART FA 01/22/2019 NELLY SMITH DO Ot I25.10 ATHSCL HEART DISEASE OF [place] CORONARY 01/22/2019 NELLY SMITH DO Ot I25.2 OLD MYOCARDIAL INFARCTION 01/22/2019 SARAH NELLY CHAUHAN Ot I27.0 PRIMARY PULMONARY HYPERTENSION 01/22/2019 NELLY SMITH DO Ot I48.2 CHRONIC ATRIAL FIBRILLATION 01/22/2019 NELLY SMITH DO Ot I50.9 HEART FAILURE, UNSPECIFIED 01/22/2019 SARAH NELLY CHAUHAN Ot J18.9 PNEUMONIA, UNSPECIFIED ORGANISM 01/22/2019 NELLY SMITH DO Ot J44.9 CHRONIC OBSTRUCTIVE PULMONARY DISEASE, U 01/22/2019 NELLY SMITH DO Ot R07.89 OTHER CHEST PAIN 01/22/2019 NELLY SMITH DO Ot Z79.51 ENVIRONMENTAL DIRECTOR (CURRENT) USE OF INHALED STERO 01/22/2019 NELLY SMITH DO Ot Z79.52 [facility] (CURRENT) USE OF SYSTEMIC STER 01/22/2019 NELLY SMITH DO Ot Z79.82 ENVIRONMENTAL DIRECTOR (CURRENT) USE OF ASPIRIN 01/22/2019 NELLY SMITH DO Ot Z80.51 FAMILY HISTORY OF MALIGNANT NEOPLASM OF 01/22/2019 NELLY SMITH DO Ot Z85.3 PERSONAL HISTORY OF MALIGNANT NEOPLASM O 01/22/2019 NELLY SMITH DO Cricket Ot Z86.718 PERSONAL HISTORY OF OTHER VENOUS THROMBO 01/22/2019 SARAH NELLY Ot Z87.01 PERSONAL HISTORY OF PNEUMONIA (RECURRENT 01/22/2019 SARAH NELLY CHAUHAN Ot Z87.19 PERSONAL HISTORY OF OTHER DISEASES OF TH 01/22/2019 SARAH NELLY CHAUHAN Ot Z87.891 PERSONAL HISTORY OF NICOTINE DEPENDENCE 01/22/2019 [place] NELLY CHAUHAN Ot Z88.0 ALLERGY STATUS TO PENICILLIN [facility]/22[facility] ALLERGY STATUS TO SULFONAMIDES STATUS 01/22/2019 [facility].5 ALLERGY STATUS TO NARCOTIC AGENT STATUS 01/22/2019 SARAH NELLY CHAUHAN Ot Z90.49 ACQUIRED ABSENCE OF OTHER SPECIFIED PART 01/22/2019 SARAH NELLY CHAUHAN Ot Z90.710 ACQUIRED ABSENCE OF BOTH CERVIX AND UTER 01/22/2019 SARAH NELLY CHAUHAN Ot Z92.21 PERSONAL HISTORY OF ANTINEOPLASTIC CHEMO 01/22/2019 SARAH NELLY CHAUHAN Ot Z99.81 DEPENDENCE ON SUPPLEMENTAL OXYGEN 01/22/2019 [place] NELLY CHAUHAN Ot E11.40 TYPE 2 DIABETES MELLITUS WITH DIABETIC N 01/22/2019 SARAH NELLY CHAUHAN Ot E78.00 PURE HYPERCHOLESTEROLEMIA, UNSPECIFIED 01/22/2019 [facility].90 UNSPECIFIED DEMENTIA WITHOUT BEHAVIORAL 01/22/2019 [place] NELLY CHAUHAN Ot F31.9 BIPOLAR DISORDER, UNSPECIFIED 01/22/2019 [facility] F41.9 ANXIETY DISORDER, UNSPECIFIED 01/22/2019 [facility] G47.30 SLEEP APNEA, UNSPECIFIED 01/22/2019 [place] NELLY CHAUHAN Ot I11.0 HYPERTENSIVE HEART DISEASE WITH HEART FA 01/22/2019 SARAH NELLY CHAUHAN Ot I25.10 ATHSCL HEART DISEASE OF [place] CORONARY 01/22/2019 SARAH NELLY CHAUHAN Ot I25.2 OLD MYOCARDIAL INFARCTION 01/22/2019 SARAH NELLY CHAUHAN Ot I27.0 PRIMARY PULMONARY HYPERTENSION 01/22/2019 SARAH NELLY CHAUHAN Ot I48.2 CHRONIC ATRIAL FIBRILLATION 01/22/2019 SARAH NELLY CHAUHAN Ot I50.9 HEART FAILURE, UNSPECIFIED 01/22/2019 NELLY SMITH DO Ot J18.9 PNEUMONIA, UNSPECIFIED ORGANISM 01/22/2019 NELLY SMITH DO Cricket Ot J44.9 CHRONIC OBSTRUCTIVE PULMONARY DISEASE, U 01/22/2019 SARAH CHAUHAN NELLY Harley Ot R07.89 OTHER CHEST PAIN 01/22/2019 SARAH CHAUHAN NELLY Cricket Ot Z79.51 ENVIRONMENTAL DIRECTOR (CURRENT) USE OF INHALED STERO 01/22/2019 SARAH CHAUHAN NELLY Cricket Ot Z79.52 ENVIRONMENTAL DIRECTOR (CURRENT) USE OF SYSTEMIC STER 01/22/2019 SARAH NELLY Cricket Ot Z79.82 [facility] (CURRENT) USE OF ASPIRIN 01/22/2019 SARAH NELLY Cricket Ot Z80.51 FAMILY HISTORY OF MALIGNANT NEOPLASM OF 01/22/2019 SARAH CHAUHAN NELLY Cricket Ot Z85.3 PERSONAL HISTORY OF MALIGNANT NEOPLASM O 01/22/2019 SARAH CHAUHAN NELLY Cricket Ot Z86.718 PERSONAL HISTORY OF OTHER VENOUS THROMBO 01/22/2019 SARAH CHAUHAN NELLY Cricket Ot Z87.01 PERSONAL HISTORY OF PNEUMONIA (RECURRENT 01/22/2019 SARAH CHAUHAN NELLY Cricket Ot Z87.19 PERSONAL HISTORY OF OTHER DISEASES OF TH 01/22/2019 NELLY SMITH DO Ot Z87.891 PERSONAL HISTORY OF NICOTINE DEPENDENCE 01/22/2019 SARAH NELLY Harley Ot Z88.0 ALLERGY STATUS TO PENICILLIN 01/22/2019 SARAH NELLY Cricket Ot Z88.2 ALLERGY STATUS TO SULFONAMIDES STATUS 01/22/2019 SARAH NELLY Cricket Ot Z88.5 ALLERGY STATUS TO NARCOTIC AGENT STATUS 01/22/2019 SARAH NELLY Cricket Ot Z90.49 ACQUIRED ABSENCE OF OTHER SPECIFIED PART 01/22/2019 SARAH CHAUHAN NELLY Cricket Ot Z90.710 ACQUIRED ABSENCE OF BOTH CERVIX AND UTER 01/22/2019 SARAH CHAUHAN NELLY Cricket Ot Z92.21 PERSONAL HISTORY OF ANTINEOPLASTIC CHEMO 01/22/2019 SARAH CHAUHAN NELLY Cricket Ot Z99.81 DEPENDENCE ON SUPPLEMENTAL OXYGEN 02/16/2019 JOSÉ MOULTON, KIMO Short Ot E11. 9 TYPE 2 DIABETES MELLITUS WITHOUT COMPLIC 02/16/2019 JOSÉ MOULTON, KIMO Short Ot E78. 00 PURE HYPERCHOLESTEROLEMIA, UNSPECIFIED 02/16/2019 KIMO KUMAR MD Ot F03. 90 UNSPECIFIED DEMENTIA WITHOUT BEHAVIORAL 02/16/2019 KIMO KUMAR MD Ot F31. 9 BIPOLAR DISORDER, UNSPECIFIED 02/16/2019 KIMO KUMAR MD Ot F41. 9 ANXIETY DISORDER, UNSPECIFIED 02/16/2019 KIMO KUMAR MD Ot G47. 30 SLEEP APNEA, UNSPECIFIED 02/16/2019 KIMO KUMAR MD Ot I10 ESSENTIAL (PRIMARY) HYPERTENSION 02/16/2019 KIMO KUMAR MD Ot I25. 10 ATHSCL HEART DISEASE OF [place] CORONARY 02/16/2019 KIMO KUMAR MD Ot I25. 2 OLD MYOCARDIAL INFARCTION 02/16/2019 KIMO KUMAR MD Ot I48. 91 UNSPECIFIED ATRIAL FIBRILLATION 02/16/2019 KIMO KUMAR MD Ot J44. 9 CHRONIC OBSTRUCTIVE PULMONARY DISEASE, U 02/16/2019 KIMO KUMAR MD Ot K21. 9 GASTRO-ESOPHAGEAL REFLUX DISEASE WITHOUT 02/16/2019 KIMO KUMAR MD Ot K58. 9 IRRITABLE BOWEL SYNDROME WITHOUT DIARRHE 02/16/2019 KIMO KUMAR MD Ot R13. 10 DYSPHAGIA, UNSPECIFIED 02/16/2019 KIMO KUMAR MD Ot Z79. 01 ENVIRONMENTAL DIRECTOR (CURRENT) USE OF ANTICOAGULANT 02/16/2019 KIMO KUMAR MD Ot Z79. 4 [facility] (CURRENT) USE OF INSULIN 02/16/2019 KIMO KUMAR MD Ot Z79. 51 ENVIRONMENTAL DIRECTOR (CURRENT) USE OF INHALED STERO 02/16/2019 KIMO KUMAR MD Ot Z79. 82 ENVIRONMENTAL DIRECTOR (CURRENT) USE OF ASPIRIN 02/16/2019 KIMO KUMAR MD Ot Z80. 51 FAMILY HISTORY OF MALIGNANT NEOPLASM OF 02/16/2019 KIMO KUMAR MD Ot Z85. 3 PERSONAL HISTORY OF MALIGNANT NEOPLASM O 02/16/2019 KIMO KUMAR MD Ot Z86.711 PERSONAL HISTORY OF PULMONARY EMBOLISM 02/16/2019 KIMO KUMAR MD Ot Z86.718 PERSONAL HISTORY OF OTHER VENOUS THROMBO 02/16/2019 KIMO KUMAR MD Ot Z87. 01 PERSONAL HISTORY OF PNEUMONIA (RECURRENT 02/16/2019 KIMO KUMAR MD Ot Z87.440 PERSONAL HISTORY OF URINARY (TRACT) INFE 02/16/2019 KIMO KUMAR MD Ot Z87.448 PERSONAL HISTORY OF OTHER DISEASES OF UR 02/16/2019 KIMO KUMAR MD Ot Z87.891 PERSONAL HISTORY OF NICOTINE DEPENDENCE 02/16/2019 KIMO KUMAR MD Ot Z88. 0 ALLERGY STATUS TO PENICILLIN 02/16/2019 KIMO KUMAR MD Ot Z88. 2 ALLERGY STATUS TO SULFONAMIDES STATUS 02/16/2019 KIMO KUMAR MD Ot Z88. 5 ALLERGY STATUS TO NARCOTIC AGENT STATUS 02/16/2019 KIMO KUMAR MD Ot Z90.710 ACQUIRED ABSENCE OF BOTH CERVIX AND UTER 02/18/2019 KIMO KUMAR MD Ot E11. 9 TYPE 2 DIABETES MELLITUS WITHOUT COMPLIC 02/18/2019 KIMO KUMAR MD Ot E78. 00 PURE HYPERCHOLESTEROLEMIA, UNSPECIFIED 02/18/2019 KIMO KUMAR MD Ot F03. 90 UNSPECIFIED DEMENTIA WITHOUT BEHAVIORAL 02/18/2019 KIMO KUMAR MD Ot F31. 9 BIPOLAR DISORDER, UNSPECIFIED 02/18/2019 KIMO KUMAR MD Ot F41. 9 ANXIETY DISORDER, UNSPECIFIED 02/18/2019 KIMO KUMAR MD Ot G47. 30 SLEEP APNEA, UNSPECIFIED 02/18/2019 KIMO KUMAR MD Ot I10 ESSENTIAL (PRIMARY) HYPERTENSION 02/18/2019 KIMO KUMAR MD Ot I25. 10 ATHSCL HEART DISEASE OF [place] CORONARY 02/18/2019 KIMO KUMAR MD Ot I25. 2 OLD MYOCARDIAL INFARCTION 02/18/2019 KIMO KUMAR MD Ot I48. 91 UNSPECIFIED ATRIAL FIBRILLATION 02/18/2019 KIMO KUMAR MD Ot J44. 9 CHRONIC OBSTRUCTIVE PULMONARY DISEASE, U 02/18/2019 KIMO KUMAR MD Ot K21. 9 GASTRO-ESOPHAGEAL REFLUX DISEASE WITHOUT 02/18/2019 KIMO KUMAR MD Ot K58. 9 IRRITABLE BOWEL SYNDROME WITHOUT DIARRHE 02/18/2019 KIMO KUMAR MD Ot R13. 10 DYSPHAGIA, UNSPECIFIED 02/18/2019 KIMO KUMAR MD Ot Z79. 01 [facility] (CURRENT) USE OF ANTICOAGULANT 02/18/2019 KIMO KUMAR MD Ot Z79. 4 [facility] (CURRENT) USE OF INSULIN 02/18/2019 KIMO KUMAR MD Ot Z79. 51 [facility] (CURRENT) USE OF INHALED STERO 02/18/2019 KIMO KUMAR MD Ot Z79. 82 [facility] (CURRENT) USE OF ASPIRIN 02/18/2019 KIMO KUMAR MD Ot Z80. 51 FAMILY HISTORY OF MALIGNANT NEOPLASM OF 02/18/2019 KIMO KUMAR MD Ot Z85. 3 PERSONAL HISTORY OF MALIGNANT NEOPLASM O 02/18/2019 KIMO KUMAR MD Ot Z86.711 PERSONAL HISTORY OF PULMONARY EMBOLISM 02/18/2019 KIMO KUMAR MD Ot Z86.718 PERSONAL HISTORY OF OTHER VENOUS THROMBO 02/18/2019 KIMO KUMAR MD Ot Z87. 01 PERSONAL HISTORY OF PNEUMONIA (RECURRENT 02/18/2019 KIMO KUMAR MD Ot Z87.440 PERSONAL HISTORY OF URINARY (TRACT) INFE 02/18/2019 KIMO KUMAR MD Ot Z87.448 PERSONAL HISTORY OF OTHER DISEASES OF UR 02/18/2019 KIMO KUMAR MD Ot Z87.891 PERSONAL HISTORY OF NICOTINE DEPENDENCE 02/18/2019 KIMO KUMAR MD Ot Z88. 0 ALLERGY STATUS TO PENICILLIN 02/18/2019 KIMO KUMAR MD Ot Z88. 2 ALLERGY STATUS TO SULFONAMIDES STATUS 02/18/2019 KIMO KUMAR MD Ot Z88. 5 ALLERGY STATUS TO NARCOTIC AGENT STATUS 02/18/2019 KIMO KUMAR MD Ot Z90.710 ACQUIRED ABSENCE OF BOTH CERVIX AND UTER 02/19/2019 FAITH TURK Ot E11.9 TYPE 2 DIABETES MELLITUS WITHOUT COMPLIC 02/19/2019 FAITH TURK Ot E78.5 HYPERLIPIDEMIA, UNSPECIFIED 02/19/2019 FAITH TURK Ot I10 ESSENTIAL (PRIMARY) HYPERTENSION 02/19/2019 FAITH TURK Ot Z08 ENCNTR FOR FOLLOW-UP EXAM AFTER TRTMT FO 02/19/2019 FAITH TURK Ot Z79.01 ENVIRONMENTAL DIRECTOR (CURRENT) USE OF ANTICOAGULANT 02/19/2019 FAITH TURK Ot Z79.4 [facility] (CURRENT) USE OF INSULIN 02/19/2019 FAITH TURK Ot Z85.3 PERSONAL HISTORY OF MALIGNANT NEOPLASM O 02/19/2019 FAITH TURK Ot Z86.718 PERSONAL HISTORY OF OTHER VENOUS THROMBO 02/19/2019 FAITH TURK Ot Z90.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 02/19/2019 FAITH TURK Ot Z92.21 PERSONAL HISTORY OF ANTINEOPLASTIC CHEMO 02/19/2019 JOSELUIS BORGES COMMUNITY HEALTH DIRECTOR Ot Z12.31 ENCNTR SCREEN MAMMOGRAM FOR MALIGNANT NE 02/19/2019 NIRAV MOULTON, ARI Ot Z01.81 8 ENCOUNTER FOR OTHER PREPROCEDURAL EXAMIN 02/19/2019 JOSELUIS BORGES COMMUNITY HEALTH DIRECTOR Ot Z12.31 ENCNTR SCREEN MAMMOGRAM FOR MALIGNANT NE 02/20/2019 JOSELUIS BORGES COMMUNITY HEALTH DIRECTOR Ot Z12.31 ENCNTR SCREEN MAMMOGRAM FOR MALIGNANT NE 02/20/2019 FARZAD MOULTON, MEGHA Ku Ot 786.2 COUGH 02/20/2019 JOSELUIS BORGES COMMUNITY HEALTH DIRECTOR Ot 174.9 MALIGN NEOPL BREAST NOS 02/20/2019 JOSELUIS BORGES COMMUNITY HEALTH DIRECTOR Ot V67.9 FOLLOW-UP EXAM NOS 02/20/2019 ERVIN OSBORNE MD Ot 593.2 CYST OF KIDNEY, ACQUIRED 02/20/2019 NIRAV MOULTON, ARI Ot V72.84 EXAM PRE-OPERATIVE NOS 02/20/2019 ERVIN OSBORNE MD Ot 593.2 CYST OF KIDNEY, ACQUIRED 02/20/2019 FAITH TURK Ot 174.9 MALIGN NEOPL BREAST NOS 02/20/2019 FAITH TURK Ot V67.9 FOLLOW-UP EXAM NOS 02/20/2019 FAITH TURK Ot 793.80 UNSPEC ABNORMAL MAMMOGRAM 02/20/2019 RAVEN LEO WILL CALL ORDER CLERK Ot 729.5 PAIN IN LIMB 02/20/2019 RAVEN LEO WILL CALL ORDER CLERK Ot 786.05 SHORTNESS OF BREATH 02/20/2019 ERVIN OSBORNE MD Ot 593.2 CYST OF KIDNEY, ACQUIRED 02/20/2019 FARZAD MOULTON, MEGHA Ku Ot 428.0 CONGESTIVE HEART FAILURE NOS 02/20/2019 ERVIN OSBORNE MD Ot 753.1 0 CYSTIC KIDNEY DISEASE, UNSPECIFIED 02/20/2019 FAITH TURK Ot V10.3 HX OF BREAST MALIGNANCY 02/20/2019 FAITH TURK Ot V12.51 HX- VENOUS THROMBOSIS EMBOLISM 02/20/2019 FAITH TURK Evy Ot V12.55 PERSONAL HISTORY OF PULMONARY EMBOLISM 02/20/2019 FAITH TURK Ot V45.71 ACQUIRED ABSENCE OF BREAST AND NIPPLE 02/20/2019 FAITH TURK Ot V58.61 ANTICOAGULANTS,LT,CURRENT USE 02/20/2019 FAITH TURK Ot V58.69 OTH MED,LT,CURRENT USE 02/20/2019 FAITH TURK Evy Ot V67.2 CHEMOTHERAPY FOLLOW-UP 02/20/2019 FAITH TURK Evy Ot 174.9 MALIGN NEOPL BREAST NOS 02/20/2019 MEGHA PANDA MD Ot 276.1 HYPOSMOLALITY 02/20/2019 MEGHA PANDA MD Ot 250.0 0 DIAB TJ WO COMPL, TYPE II OR UNSPEC TY 02/20/2019 MEGHA PANDA MD Ot 276.8 HYPOPOTASSEMIA 02/20/2019 MEGHA PANDA MD Ot 250.0 0 DIAB TJ WO COMPL, TYPE II OR UNSPEC TY 02/20/2019 MEGHA PANDA MD Ot V58.6 9 OTH MED,LT,CURRENT USE 02/20/2019 MEGHA PANDA MD Ot L03.9 0 CELLULITIS, UNSPECIFIED 02/20/2019 MEGHA PANDA MD Ot Z51.8 1 ENCOUNTER FOR THERAPEUTIC DRUG LEVEL MON 02/20/2019 MEGHA PANDA MD Ot Z79.2 [facility] (CURRENT) USE OF ANTIBIOTICS 02/20/2019 AGATHA ESPINAL Ot N39.0 URINARY TRACT INFECTION, SITE NOT SPECIF 02/20/2019 DANY ESPINAL DO Ot E03.9 HYPOTHYROIDISM, UNSPECIFIED 02/20/2019 ADNY ESPINAL DO Ot I48.2 CHRONIC ATRIAL FIBRILLATION 02/20/2019 DANY ESPINAL DO Ot N39.0 URINARY TRACT INFECTION, SITE NOT SPECIF 02/20/2019 DANY ESPINAL DO Ot N39.0 URINARY TRACT INFECTION, SITE NOT SPECIF 02/20/2019 Ot 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 02/20/2019 Ot N28.1 CYST OF KIDNEY, ACQUIRED 02/20/2019 JOSELUIS BORGES Ot Z 08 ENCNTR FOR FOLLOW-UP EXAM AFTER TRTMT FO 02/20/2019 BORGES, HILAH S COMMUNITY HEALTH DIRECTOR Ot Z79.01 [facility] (CURRENT) USE OF ANTICOAGULANT 02/20/2019 JOSELUIS BORGES JASON Ot Z85.3 PERSONAL HISTORY OF MALIGNANT NEOPLASM O 02/20/2019 JOSELUIS BORGES JASON Ot Z86.718 PERSONAL HISTORY OF OTHER VENOUS THROMBO 02/20/2019 JOSELUIS BORGES JASON Ot Z90.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 02/20/2019 BORGESJOSELUIS Devi JASON Ot Z12.31 ENCNTR SCREEN MAMMOGRAM FOR MALIGNANT NE 02/20/2019 DANY ESPINAL DO Ot 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 02/20/2019 DANY ESPINAL DO, Ot 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, 02/20/2019 BORGESJOSELUIS Devi JASON Ot R92.8 OTH ABN AND INCONCLUSIVE FINDINGS ON DX 02/20/2019 SHEELA BANUELOS MD Ot E78. 2 MIXED HYPERLIPIDEMIA 02/20/2019 SHEELA BANUELOS MD, Ot G25. 0 ESSENTIAL TREMOR 02/20/2019 SHEELA BANUELOS MD Ot I10 ESSENTIAL (PRIMARY) HYPERTENSION 02/20/2019 SHEELA BANUELOS MD Ot I48. 0 PAROXYSMAL ATRIAL FIBRILLATION 02/20/2019 SHEELA BANUELOS MD Ot R07. 9 CHEST PAIN, UNSPECIFIED 02/20/2019 MARSHA GALLOWAYM, FRANCK Stanton Ot M79.604 PAIN IN RIGHT LEG 02/20/2019 AGATHA ESPINAL COMMUNITY HEALTH DIRECTOR Ot N28.1 CYST OF KIDNEY, ACQUIRED 02/20/2019 AGATHA ESPINALP Ot R10.2 PELVIC AND PERINEAL PAIN 02/20/2019 INDIA MOULTON, ERVIN Lanier Ot N28.1 CYST OF KIDNEY, ACQUIRED 02/20/2019 FAITH TURK Ot B02.29 OTHER POSTHERPETIC NERVOUS SYSTEM INVOLV 02/20/2019 FAITH TURK Ot E11.9 TYPE 2 DIABETES MELLITUS WITHOUT COMPLIC 02/20/2019 FAITH TURK Ot E78.5 HYPERLIPIDEMIA, UNSPECIFIED 02/20/2019 FAITH TURK Ot G47.33 OBSTRUCTIVE SLEEP APNEA (ADULT) (PEDIATR 02/20/2019 FAITH TURK Ot I10 ESSENTIAL (PRIMARY) HYPERTENSION 02/20/2019 ROSALEE FAITH Ratliff Ot I27.20 PULMONARY HYPERTENSION, UNSPECIFIED 02/20/2019 ROSALEE FAITH Ratliff Ot I48.2 CHRONIC ATRIAL FIBRILLATION 02/20/2019 ROSALEE FAITH Ratliff Ot Z08 ENCNTR FOR FOLLOW-UP EXAM AFTER TRTMT FO 02/20/2019 ROSALEE EDNASUJATA Evy Ot Z79.01 [facility] (CURRENT) USE OF ANTICOAGULANT 02/20/2019 ROSALEEFAITH Ot Z79.4 ENVIRONMENTAL DIRECTOR (CURRENT) USE OF INSULIN 02/20/2019 ROSALEEFAITH Ot Z79.82 ENVIRONMENTAL DIRECTOR (CURRENT) USE OF ASPIRIN 02/20/2019 ROSALEEFAITH Ot Z79.899 OTHER [facility] (CURRENT) DRUG THERAPY 02/20/2019 FAITH TURK Ot Z85.3 PERSONAL HISTORY OF MALIGNANT NEOPLASM O 02/20/2019 FAITH TURK Ot Z86.711 PERSONAL HISTORY OF PULMONARY EMBOLISM 02/20/2019 FAITH TURK Ot Z86.718 PERSONAL HISTORY OF OTHER VENOUS THROMBO 02/20/2019 ROSALEEFAITH Ot Z90.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 02/20/2019 ROSALEEFAITH Ot Z92.21 PERSONAL HISTORY OF ANTINEOPLASTIC CHEMO 02/20/2019 KO KENDRICK DO Ot M51.36 OTHER INTERVERTEBRAL DISC DEGENERATION, 02/20/2019 ROSALEE FAITH Ratliff Ot R92.8 OTH ABN AND INCONCLUSIVE FINDINGS ON DX 02/20/2019 ROSALEE FAITH Ratliff Ot E11.9 TYPE 2 DIABETES MELLITUS WITHOUT COMPLIC 02/20/2019 FAITH TURK Ot E78.5 HYPERLIPIDEMIA, UNSPECIFIED 02/20/2019 FAITH TURK Ot I10 ESSENTIAL (PRIMARY) HYPERTENSION 02/20/2019 ROSALEE FAITH Ratliff Ot Z08 ENCNTR FOR FOLLOW-UP EXAM AFTER TRTMT FO 02/20/2019 ROSALEEFAITH RABAGO Ot Z79.01 [facility] (CURRENT) USE OF ANTICOAGULANT 02/20/2019 FAITH TURK Ot Z79.4 [facility] (CURRENT) USE OF INSULIN 02/20/2019 FAITH TURK Ot Z85.3 PERSONAL HISTORY OF MALIGNANT NEOPLASM O 02/20/2019 FAITH TURK Ot Z86.718 PERSONAL HISTORY OF OTHER VENOUS THROMBO 02/20/2019 FAITH TURK Ot Z90.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 02/20/2019 FAITH TURK Ot Z92.21 PERSONAL HISTORY OF ANTINEOPLASTIC CHEMO 02/20/2019 REDD BORGESCAITIE Devi COMMUNITY HEALTH DIRECTOR Ot C50.911 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 02/20/2019 REDD BORGESCAITIE Devi COMMUNITY HEALTH DIRECTOR Ot 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 02/20/2019 DANY ESPINAL DO Ot J32.9 CHRONIC SINUSITIS, UNSPECIFIED 02/20/2019 ERVIN OSBORNE MD Ot C92.0 0 ACUTE MYELOBLASTIC LEUKEMIA, NOT HAVING 02/20/2019 ERVIN OSBORNE MD Ot N28.1 CYST OF KIDNEY, ACQUIRED 02/20/2019 REDD BORGESCAITIE Marito COMMUNITY HEALTH DIRECTOR Ot 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 02/20/2019 REDD BORGESCAITIE Marito COMMUNITY HEALTH DIRECTOR Ot R92.8 OTH ABN AND INCONCLUSIVE FINDINGS ON DX 02/20/2019 JOSELUIS BORGESP Ot Z12.31 ENCNTR SCREEN MAMMOGRAM FOR MALIGNANT NE 02/20/2019 JOSELUIS BORGES COMMUNITY HEALTH DIRECTOR Ot Z85.3 PERSONAL HISTORY OF MALIGNANT NEOPLASM O 02/20/2019 Ot J01.01 ACU TE RECURRENT MAXILLARY SINUSITIS 02/20/2019 JOSELUIS BORGES COMMUNITY HEALTH DIRECTOR Ot Z12.31 ENCNTR SCREEN MAMMOGRAM FOR MALIGNANT NE 02/20/2019 WILLARD PARR Ot G25.0 ESSENTIAL TREMOR 02/20/2019 WILLARD PARR Ot I48.0 PAROXYSMAL ATRIAL FIBRILLATION 02/20/2019 WILLARD PARR Ot R06.00 DYSPNEA, UNSPECIFIED 02/20/2019 WILLARD PARR Ot R07.9 CHEST PAIN, UNSPECIFIED 02/20/2019 ARI GASTELUM MD Ot E78.00 PURE HYPERCHOLESTEROLEMIA, UNSPECIFIED 02/20/2019 ARI GASTELUM MD Ot F41.9 ANXIETY DISORDER, UNSPECIFIED 02/20/2019 ARI GASTELUM MD Ot I10 ESSENTIAL (PRIMARY) HYPERTENSION 02/20/2019 ARI GASTELUM MD Ot J44.9 CHRONIC OBSTRUCTIVE PULMONARY DISEASE, U 02/20/2019 ARI GASTELUM MD, Ot K21.0 GASTRO-ESOPHAGEAL REFLUX DISEASE WITH ES 02/20/2019 ARI GASTELUM MD, Ot K22.2 ESOPHAGEAL OBSTRUCTION 02/20/2019 ARI GASTELUM MD, Ot K29.50 UNSPECIFIED CHRONIC GASTRITIS WITHOUT BL 02/20/2019 ARI GASTELUM MD, Ot K29.70 GASTRITIS, UNSPECIFIED, WITHOUT BLEEDING 02/20/2019 ARI GASTELUM MD, Ot K44.9 DIAPHRAGMATIC HERNIA WITHOUT OBSTRUCTION 02/20/2019 ARI GASTELUM MD, Ot Z79.89 9 OTHER [facility] (CURRENT) DRUG THERAPY 02/20/2019 ARI GASTELUM MD, Ot Z85.3 PERSONAL HISTORY OF MALIGNANT NEOPLASM O 02/20/2019 ARI GASTELUM MD, Ot Z86.71 1 PERSONAL HISTORY OF PULMONARY EMBOLISM 02/20/2019 ARI AGSTELUM MD, Ot Z86.71 8 PERSONAL HISTORY OF OTHER VENOUS THROMBO 02/20/2019 ARI GASTELUM MD Ot Z01.81 8 ENCOUNTER FOR OTHER PREPROCEDURAL EXAMIN 02/25/2019 ARI GASTEULM MD Ot Z01.81 8 ENCOUNTER FOR OTHER PREPROCEDURAL EXAMIN 02/26/2019 ARI GASTELUM MD Ot E78.00 PURE HYPERCHOLESTEROLEMIA, UNSPECIFIED 02/26/2019 ARI GASTELUM MD, Ot F41.9 ANXIETY DISORDER, UNSPECIFIED 02/26/2019 ARI GASTELUM MD, Ot I10 ESSENTIAL (PRIMARY) HYPERTENSION 02/26/2019 ARI GASTELUM MD, Ot J44.9 CHRONIC OBSTRUCTIVE PULMONARY DISEASE, U 02/26/2019 ARI GASTELUM MD, Ot K21.0 GASTRO-ESOPHAGEAL REFLUX DISEASE WITH ES 02/26/2019 ARI GASTELUM MD, Ot K22.2 ESOPHAGEAL OBSTRUCTION 02/26/2019 ARI GASTELUM MD, Ot K29.50 UNSPECIFIED CHRONIC GASTRITIS WITHOUT BL 02/26/2019 ARI GASTELUM MD, Ot K44.9 DIAPHRAGMATIC HERNIA WITHOUT OBSTRUCTION 02/26/2019 ARI GASTELUM MD, Ot Z79.89 9 OTHER [facility] (CURRENT) DRUG THERAPY 02/26/2019 ARI GASTELUM MD Ot Z85.3 PERSONAL HISTORY OF MALIGNANT NEOPLASM O 02/26/2019 ARI GASTELUM MD Ot Z86.71 1 PERSONAL HISTORY OF PULMONARY EMBOLISM 02/26/2019 ARI GASTELUM MD Ot Z86.71 8 PERSONAL HISTORY OF OTHER VENOUS THROMBO 03/02/2019 JOSELUIS BORGES Ot Z12.31 ENCNTR SCREEN MAMMOGRAM FOR MALIGNANT NE 03/02/2019 JOSELUIS BORGES Ot Z85.3 PERSONAL HISTORY OF MALIGNANT NEOPLASM O 03/02/2019 ARI GASTELUM MD Ot E78.00 PURE HYPERCHOLESTEROLEMIA, UNSPECIFIED 03/02/2019 ARI GASTELUM MD, Ot F41.9 ANXIETY DISORDER, UNSPECIFIED 03/02/2019 ARI GASTELUM MD Ot I10 ESSENTIAL (PRIMARY) HYPERTENSION 03/02/2019 ARI GASTELUM MD, Ot J44.9 CHRONIC OBSTRUCTIVE PULMONARY DISEASE, U 03/02/2019 ARI GASTELUM MD, Ot K21.0 GASTRO-ESOPHAGEAL REFLUX DISEASE WITH ES 03/02/2019 ARI GASTELUM MD, Ot K22.2 ESOPHAGEAL OBSTRUCTION 03/02/2019 ARI GASTELUM MD, Ot K29.50 UNSPECIFIED CHRONIC GASTRITIS WITHOUT BL 03/02/2019 ARI GASTELUM MD Ot K44.9 DIAPHRAGMATIC HERNIA WITHOUT OBSTRUCTION 03/02/2019 ARI GASTELUM MD Ot Z79.89 9 OTHER [facility] (CURRENT) DRUG THERAPY 03/02/2019 ARI GASTELUM MD, Ot Z85.3 PERSONAL HISTORY OF MALIGNANT NEOPLASM O 03/02/2019 ARI GASTELUM MD Ot Z86.71 1 PERSONAL HISTORY OF PULMONARY EMBOLISM 03/02/2019 ARI GASTELUM MD Ot Z86.71 8 PERSONAL HISTORY OF OTHER VENOUS THROMBO 05/12/2019 ERVIN OSBORNE MD Ot N28.1 CYST OF KIDNEY, ACQUIRED 05/12/2019 ERVIN OSBORNE MD Ot Z98.8 90 OTHER SPECIFIED POSTPROCEDURAL STATES 05/15/2019 ERVIN OSBORNE MD Ot N28.1 CYST OF KIDNEY, ACQUIRED 05/15/2019 ERVIN OSBORNE MD Ot Z98.8 90 OTHER SPECIFIED POSTPROCEDURAL STATES 06/11/2019 ERVIN OSBORNE MD Ot N28.1 CYST OF KIDNEY, ACQUIRED 06/11/2019 ERVIN OSBORNE MD Ot Z98.8 90 OTHER SPECIFIED POSTPROCEDURAL STATES 08/03/2019 FAITH TURK N Ot D64.9 ANEMIA, UNSPECIFIED 08/03/2019 ROSALEE FAITH Ratliff Ot E11.9 TYPE 2 DIABETES MELLITUS WITHOUT COMPLIC 08/03/2019 ROSALEEFAITH Ot E66.9 OBESITY, UNSPECIFIED 08/03/2019 ROSALEEFAITH Ot E78.5 HYPERLIPIDEMIA, UNSPECIFIED 08/03/2019 ROSALEE FAITH Ratliff Ot G47.33 OBSTRUCTIVE SLEEP APNEA (ADULT) (PEDIATR 08/03/2019 FAITH TURK Ot I10 ESSENTIAL (PRIMARY) HYPERTENSION 08/03/2019 ROSALEEFAITH Ot I27.20 PULMONARY HYPERTENSION, UNSPECIFIED 08/03/2019 ROSALEEFAITH Ot Z08 ENCNTR FOR FOLLOW-UP EXAM AFTER TRTMT FO 08/03/2019 ROSALEEFAITH Ot Z68.35 BODY MASS INDEX (BMI) 35.0-35.9, ADULT 08/03/2019 ROSALEEFAITH Ot Z79.01 [facility] (CURRENT) USE OF ANTICOAGULANT 08/03/2019 FAITH TURK Ot Z79.4 [facility] (CURRENT) USE OF INSULIN 08/03/2019 ROSALEEFAITH Ot Z79.899 OTHER ENVIRONMENTAL DIRECTOR (CURRENT) DRUG THERAPY 08/03/2019 ROSALEEFAITH Ot Z85.3 PERSONAL HISTORY OF MALIGNANT NEOPLASM O 08/03/2019 FAITH TURK Ot Z86.718 PERSONAL HISTORY OF OTHER VENOUS THROMBO 08/03/2019 FAITH TURK Ot Z90.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 08/03/2019 FAITH TURK Ot Z92.21 PERSONAL HISTORY OF ANTINEOPLASTIC CHEMO 09/09/2019 FARZAD MOULTON, MEGHA Ku Ot 786.2 COUGH 09/09/2019 [place] MOULTON, ERVIN Lanier Ot 593.2 CYST OF KIDNEY, ACQUIRED 09/09/2019 FAITH TURK Ot 174.9 MALIGN NEOPL BREAST NOS 09/09/2019 FAITH TURK Ot V67.9 FOLLOW-UP EXAM NOS 09/09/2019 FAITH TURK Ot 793.80 UNSPEC ABNORMAL MAMMOGRAM 09/09/2019 RAVEN LEO WILL CALL ORDER CLERK Ot 729.5 PAIN IN LIMB 09/09/2019 RAVEN LEO WILL CALL ORDER CLERK Ot 786.05 SHORTNESS OF BREATH 09/09/2019 INDIA MOULTON, ERVIN Lanier Ot 593.2 CYST OF KIDNEY, ACQUIRED 09/09/2019 MEGHA PANDA MD Ot 428.0 CONGESTIVE HEART FAILURE NOS 09/09/2019 INDIA MOULTON, ERVIN Lanier Ot 753.1 0 CYSTIC KIDNEY DISEASE, UNSPECIFIED 09/09/2019 FAITH TURK Ot V10.3 HX OF BREAST MALIGNANCY 09/09/2019 FAITH TURK Ot V12.51 HX- VENOUS THROMBOSIS EMBOLISM 09/09/2019 FAITH TURK Ot V12.55 PERSONAL HISTORY OF PULMONARY EMBOLISM 09/09/2019 FAITH TURK Ot V45.71 ACQUIRED ABSENCE OF BREAST AND NIPPLE 09/09/2019 FAITH TURK Ot V58.61 ANTICOAGULANTS,LT,CURRENT USE 09/09/2019 FAITH TURK Ot V58.69 OTH MED,LT,CURRENT USE 09/09/2019 FAITH TURK Ot V67.2 CHEMOTHERAPY FOLLOW-UP 09/09/2019 FAITH TURK Ot 174.9 MALIGN NEOPL BREAST NOS 09/09/2019 MEGHA PANDA MD Ot 276.1 HYPOSMOLALITY 09/09/2019 MEGHA PANDA MD Ot 250.0 0 DIAB TJ WO COMPL, TYPE II OR UNSPEC TY 09/09/2019 MEGHA PANDA MD Ot 276.8 HYPOPOTASSEMIA 09/09/2019 MEGHA PANDA MD Ot 250.0 0 DIAB TJ WO COMPL, TYPE II OR UNSPEC TY 09/09/2019 MEGHA PANDA MD Ot V58.6 9 OTH MED,LT,CURRENT USE 09/09/2019 MEGHA PANDA MD Ot L03.9 0 CELLULITIS, UNSPECIFIED 09/09/2019 MEGHA PANDA MD Ot Z51.8 1 ENCOUNTER FOR THERAPEUTIC DRUG LEVEL MON 09/09/2019 MEGHA PANDA MD Ot Z79.2 [facility] (CURRENT) USE OF ANTIBIOTICS 09/09/2019 AGATHA ESPINAL Ot N39.0 URINARY TRACT INFECTION, SITE NOT SPECIF 09/09/2019 DANY ESPINAL DO Ot E03.9 HYPOTHYROIDISM, UNSPECIFIED 09/09/2019 DANY ESPINAL DO Ot I48.2 CHRONIC ATRIAL FIBRILLATION 09/09/2019 DANY ESPINAL DO Ot N39.0 URINARY TRACT INFECTION, SITE NOT SPECIF 09/09/2019 DANY ESPINAL DO Ot N39.0 URINARY TRACT INFECTION, SITE NOT SPECIF 09/09/2019 Ot 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 09/09/2019 Ot N28.1 CYST OF KIDNEY, ACQUIRED 09/09/2019 JOSELUIS BORGES Ot Z 08 ENCNTR FOR FOLLOW-UP EXAM AFTER TRTMT FO 09/09/2019 JOSELUIS BORGES Ot Z79.01 ENVIRONMENTAL DIRECTOR (CURRENT) USE OF ANTICOAGULANT 09/09/2019 JOSELUIS BORGES Ot Z85.3 PERSONAL HISTORY OF MALIGNANT NEOPLASM O 09/09/2019 JOSELUIS BORGES Ot Z86.718 PERSONAL HISTORY OF OTHER VENOUS THROMBO 09/09/2019 JOSELUIS BORGES Ot Z90.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 09/09/2019 JOSELUIS BORGES Ot Z12.31 ENCNTR SCREEN MAMMOGRAM FOR MALIGNANT NE 09/09/2019 DANY ESPINAL DO Ot 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 09/09/2019 DANY ESPINAL DO Ot 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, 09/09/2019 JOSELUIS BORGES Ot R92.8 OTH ABN AND INCONCLUSIVE FINDINGS ON DX 09/09/2019 SHEELA BANUELOS MD Ot E78. 2 MIXED HYPERLIPIDEMIA 09/09/2019 SHEELA BANUELOS MD, Ot G25. 0 ESSENTIAL TREMOR 09/09/2019 SHEELA BANUELOS MD, Ot I10 ESSENTIAL (PRIMARY) HYPERTENSION 09/09/2019 SHEELA BANUELOS MD Ot I48. 0 PAROXYSMAL ATRIAL FIBRILLATION 09/09/2019 SHEELA BANUELOS MD Ot R07. 9 CHEST PAIN, UNSPECIFIED 09/09/2019 MARSHA PAL, FRANCK Stanton Ot M79.604 PAIN IN RIGHT LEG 09/09/2019 AGATHA ESPINAL Ot N28.1 CYST OF KIDNEY, ACQUIRED 09/09/2019 AGATHA ESPINAL Ot R10.2 PELVIC AND PERINEAL PAIN 09/09/2019 INDIA MOULTON, ERVIN Lanier Ot N28.1 CYST OF KIDNEY, ACQUIRED 09/09/2019 FAITH TURK Ot B02.29 OTHER POSTHERPETIC NERVOUS SYSTEM INVOLV 09/09/2019 FAITH TURK Ot E11.9 TYPE 2 DIABETES MELLITUS WITHOUT COMPLIC 09/09/2019 FAITH TURK Ot E78.5 HYPERLIPIDEMIA, UNSPECIFIED 09/09/2019 FAITH TURK Ot G47.33 OBSTRUCTIVE SLEEP APNEA (ADULT) (PEDIATR 09/09/2019 FAITH TURK N Ot I10 ESSENTIAL (PRIMARY) HYPERTENSION 09/09/2019 FAITH TURK Ot I27.20 PULMONARY HYPERTENSION, UNSPECIFIED 09/09/2019 FAITH TURK Ot I48.2 CHRONIC ATRIAL FIBRILLATION 09/09/2019 FAITH TURK N Ot Z08 ENCNTR FOR FOLLOW-UP EXAM AFTER TRTMT FO 09/09/2019 FAITH TURK Ot Z79.01 [facility] (CURRENT) USE OF ANTICOAGULANT 09/09/2019 FAITH TRUK N Ot Z79.4 [facility] (CURRENT) USE OF INSULIN 09/09/2019 FAITH TURK Ot Z79.82 ENVIRONMENTAL DIRECTOR (CURRENT) USE OF ASPIRIN 09/09/2019 FAITH TURK N Ot Z79.899 OTHER [facility] (CURRENT) DRUG THERAPY 09/09/2019 FAITH TURK Ot Z85.3 PERSONAL HISTORY OF MALIGNANT NEOPLASM O 09/09/2019 FAITH TURK Ot Z86.711 PERSONAL HISTORY OF PULMONARY EMBOLISM 09/09/2019 FAITH TURK Ot Z86.718 PERSONAL HISTORY OF OTHER VENOUS THROMBO 09/09/2019 FAITH TURK Ot Z90.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 09/09/2019 FAITH TURK Ot Z92.21 PERSONAL HISTORY OF ANTINEOPLASTIC CHEMO 09/09/2019 KO KENDRICK DO Ot M51.36 OTHER INTERVERTEBRAL DISC DEGENERATION, 09/09/2019 FAITH TURK Ot R92.8 OTH ABN AND INCONCLUSIVE FINDINGS ON DX 09/09/2019 FAITH TURK Ot E11.9 TYPE 2 DIABETES MELLITUS WITHOUT COMPLIC 09/09/2019 FAITH TURK Ot E78.5 HYPERLIPIDEMIA, UNSPECIFIED 09/09/2019 FAITH TURK Ot I10 ESSENTIAL (PRIMARY) HYPERTENSION 09/09/2019 FAITH TURK Ot Z08 ENCNTR FOR FOLLOW-UP EXAM AFTER TRTMT FO 09/09/2019 FAITH TURK Ot Z79.01 ENVIRONMENTAL DIRECTOR (CURRENT) USE OF ANTICOAGULANT 09/09/2019 FAITH TURK Ot Z79.4 [facility] (CURRENT) USE OF INSULIN 09/09/2019 FAITH TURK Ot Z85.3 PERSONAL HISTORY OF MALIGNANT NEOPLASM O 09/09/2019 FAITH TURK Ot Z86.718 PERSONAL HISTORY OF OTHER VENOUS THROMBO 09/09/2019 FAITH TURK Ot Z90.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 09/09/2019 FAITH TURK Ot Z92.21 PERSONAL HISTORY OF ANTINEOPLASTIC CHEMO 09/09/2019 JOSELUIS BORGES Ot C50.911 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 09/09/2019 JOSELUIS BORGES Ot 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 09/09/2019 DANY ESPINAL DO Ot J32.9 CHRONIC SINUSITIS, UNSPECIFIED 09/09/2019 INDIA MOULTON, ERVIN Lanier Ot C92.0 0 ACUTE MYELOBLASTIC LEUKEMIA, NOT HAVING 09/09/2019 ERVIN OSBORNE MD Ot N28.1 CYST OF KIDNEY, ACQUIRED 09/09/2019 JOSELUIS BORGES Ot 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 09/09/2019 JOSELUIS BORGES Ot R92.8 OTH ABN AND INCONCLUSIVE FINDINGS ON DX 09/09/2019 JOSELUIS BORGES Ot Z12.31 ENCNTR SCREEN MAMMOGRAM FOR MALIGNANT NE 09/09/2019 JOSELUIS BORGES Ot Z85.3 PERSONAL HISTORY OF MALIGNANT NEOPLASM O 09/09/2019 Ot J01.01 ACU TE RECURRENT MAXILLARY SINUSITIS 09/09/2019 JOSELUIS BORGESP Ot Z12.31 ENCNTR SCREEN MAMMOGRAM FOR MALIGNANT NE 09/09/2019 JOSELUIS BORGES Ot Z85.3 PERSONAL HISTORY OF MALIGNANT NEOPLASM O 09/09/2019 WILLARD PARR Ot G25.0 ESSENTIAL TREMOR 09/09/2019 WILLARD PARR Ot I48.0 PAROXYSMAL ATRIAL FIBRILLATION 09/09/2019 WILLARD PARR Ot R06.00 DYSPNEA, UNSPECIFIED 09/09/2019 YANG AJSSO, WILLARD Harley Ot R07.9 CHEST PAIN, UNSPECIFIED 09/09/2019 INDIA MOULTON, ERVIN Lanier Ot N28.1 CYST OF KIDNEY, ACQUIRED 09/09/2019 ERVIN OSBORNE MD Ot Z98.8 90 OTHER SPECIFIED POSTPROCEDURAL STATES 09/09/2019 FAITH TURK Ot Z12.31 ENCNTR SCREEN MAMMOGRAM FOR MALIGNANT NE 09/09/2019 FAITH TURK Ot D64.9 ANEMIA, UNSPECIFIED 09/09/2019 FAITH TURK N Ot E11.9 TYPE 2 DIABETES MELLITUS WITHOUT COMPLIC 09/09/2019 FAITH TURK Ot E66.9 OBESITY, UNSPECIFIED 09/09/2019 FAITH TURK Ot E78.5 HYPERLIPIDEMIA, UNSPECIFIED 09/09/2019 FAITH TURK N Ot G47.33 OBSTRUCTIVE SLEEP APNEA (ADULT) (PEDIATR 09/09/2019 FAITH TURK Ot I10 ESSENTIAL (PRIMARY) HYPERTENSION 09/09/2019 FAITH TURK N Ot I27.20 PULMONARY HYPERTENSION, UNSPECIFIED 09/09/2019 FAITH TURK N Ot Z08 ENCNTR FOR FOLLOW-UP EXAM AFTER TRTMT FO 09/09/2019 FAITH TURK Ot Z68.35 BODY MASS INDEX (BMI) 35.0-35.9, ADULT 09/09/2019 FAITH TURK N Ot Z79.01 ENVIRONMENTAL DIRECTOR (CURRENT) USE OF ANTICOAGULANT 09/09/2019 FAITH TURK N Ot Z79.4 ENVIRONMENTAL DIRECTOR (CURRENT) USE OF INSULIN 09/09/2019 FAITH TURK N Ot Z79.899 OTHER ENVIRONMENTAL DIRECTOR (CURRENT) DRUG THERAPY 09/09/2019 FAITH TURK N Ot Z85.3 PERSONAL HISTORY OF MALIGNANT NEOPLASM O 09/09/2019 FAITH TURK Ot Z86.718 PERSONAL HISTORY OF OTHER VENOUS THROMBO 09/09/2019 FAITH TURK N Ot Z90.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 09/09/2019 FAITH TURK Ot Z92.21 PERSONAL HISTORY OF ANTINEOPLASTIC CHEMO 09/09/2019 FARZAD MOULTON, MEGHA Ku Ot 786.2 COUGH 09/09/2019 INDIA MOULTON, ERVIN Lanier Ot 593.2 CYST OF KIDNEY, ACQUIRED 09/09/2019 FAITH TURK Ot 174.9 MALIGN NEOPL BREAST NOS 09/09/2019 FAITH TURK Ot V67.9 FOLLOW-UP EXAM NOS 09/09/2019 ROSALEE FAITH Ratliff Ot 793.80 UNSPEC ABNORMAL MAMMOGRAM 09/09/2019 RAVEN LEO WILL CALL ORDER CLERK Ot 729.5 PAIN IN LIMB 09/09/2019 RAVEN LEO WILL CALL ORDER CLERK Ot 786.05 SHORTNESS OF BREATH 09/09/2019 INDIA MOULTON, ERVIN Lanier Ot 593.2 CYST OF KIDNEY, ACQUIRED 09/09/2019 MEGHA PANDA MD Ot 428.0 CONGESTIVE HEART FAILURE NOS 09/09/2019 INDIA MOULTON, ERVIN Lanier Ot 753.1 0 CYSTIC KIDNEY DISEASE, UNSPECIFIED 09/09/2019 FAITH TURK Ot V10.3 HX OF BREAST MALIGNANCY 09/09/2019 FAITH TURK Ot V12.51 HX- VENOUS THROMBOSIS EMBOLISM 09/09/2019 FAITH TURK Ot V12.55 PERSONAL HISTORY OF PULMONARY EMBOLISM 09/09/2019 FAITH TURK Ot V45.71 ACQUIRED ABSENCE OF BREAST AND NIPPLE 09/09/2019 FAITH TURK Ot V58.61 ANTICOAGULANTS,LT,CURRENT USE 09/09/2019 FAITH TURK Ot V58.69 OTH MED,LT,CURRENT USE 09/09/2019 FAITH TURK Ot V67.2 CHEMOTHERAPY FOLLOW-UP 09/09/2019 FAITH TURK Ot 174.9 MALIGN NEOPL BREAST NOS 09/09/2019 MEGHA PANDA MD Ot 276.1 HYPOSMOLALITY 09/09/2019 MEGHA PANDA MD Ot 250.0 0 DIAB TJ WO COMPL, TYPE II OR UNSPEC TY 09/09/2019 MEGHA PANDA MD Ot 276.8 HYPOPOTASSEMIA 09/09/2019 MEGHA PANDA MD Ot 250.0 0 DIAB TJ WO COMPL, TYPE II OR UNSPEC TY 09/09/2019 MEGHA PANDA MD Ot V58.6 9 OTH MED,LT,CURRENT USE 09/09/2019 MEGHA PANDA MD Ot L03.9 0 CELLULITIS, UNSPECIFIED 09/09/2019 MEGHA PANDA MD Ot Z51.8 1 ENCOUNTER FOR THERAPEUTIC DRUG LEVEL MON 09/09/2019 FARZAD MOULTON, MEGHA Ku Ot Z79.2 ENVIRONMENTAL DIRECTOR (CURRENT) USE OF ANTIBIOTICS 09/09/2019 AGATHA ESPINAL Ot N39.0 URINARY TRACT INFECTION, SITE NOT SPECIF 09/09/2019 DANY ESPINAL DO Ot E03.9 HYPOTHYROIDISM, UNSPECIFIED 09/09/2019 DANY ESPINAL DO Ot I48.2 CHRONIC ATRIAL FIBRILLATION 09/09/2019 DANY ESPINAL DO, Ot N39.0 URINARY TRACT INFECTION, SITE NOT SPECIF 09/09/2019 DANY ESPINAL DO, Ot N39.0 URINARY TRACT INFECTION, SITE NOT SPECIF 09/09/2019 Ot 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 09/09/2019 Ot N28.1 CYST OF KIDNEY, ACQUIRED 09/09/2019 JOSELUIS BORGES Ot Z 08 ENCNTR FOR FOLLOW-UP EXAM AFTER TRTMT FO 09/09/2019 JOSELUIS BORGES Ot Z79.01 [facility] (CURRENT) USE OF ANTICOAGULANT 09/09/2019 JOSELUIS BORGES Ot Z85.3 PERSONAL HISTORY OF MALIGNANT NEOPLASM O 09/09/2019 JOSELUIS BORGES Ot Z86.718 PERSONAL HISTORY OF OTHER VENOUS THROMBO 09/09/2019 JOSELUIS BORGES Ot Z90.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 09/09/2019 JOSELUIS BORGES Ot Z12.31 ENCNTR SCREEN MAMMOGRAM FOR MALIGNANT NE 09/09/2019 DANY ESPINAL DO Ot 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 09/09/2019 DANY ESPINAL DO, Ot 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, 09/09/2019 JOSELUIS BORGES Ot R92.8 OTH ABN AND INCONCLUSIVE FINDINGS ON DX 09/09/2019 SHEELA BANUELOS MD Ot E78. 2 MIXED HYPERLIPIDEMIA 09/09/2019 SHEELA BANUELOS MD, Ot G25. 0 ESSENTIAL TREMOR 09/09/2019 SHEELA BANUELOS MD, Ot I10 ESSENTIAL (PRIMARY) HYPERTENSION 09/09/2019 SHEELA BANUELOS MD, Ot I48. 0 PAROXYSMAL ATRIAL FIBRILLATION 09/09/2019 SHEELA BANUELOS MD Ot R07. 9 CHEST PAIN, UNSPECIFIED 09/09/2019 MARSHA PAL, FRANCK Stanton Ot M79.604 PAIN IN RIGHT LEG 09/09/2019 TEDDYHENRIETTAAGATHA [place] [facility] DIRECTOR Ot N28.1 CYST OF KIDNEY, ACQUIRED 09/09/2019 ESPINALAGATHA RIOS [facility] DIRECTOR Ot R10.2 PELVIC AND PERINEAL PAIN 09/09/2019 INDIA MOULTON, ERVIN Lanier Ot N28.1 CYST OF KIDNEY, ACQUIRED 09/09/2019 FAITH TURK Ot B02.29 OTHER POSTHERPETIC NERVOUS SYSTEM INVOLV 09/09/2019 FAITH TURK Ot E11.9 TYPE 2 DIABETES MELLITUS WITHOUT COMPLIC 09/09/2019 FAITH TURK Ot E78.5 HYPERLIPIDEMIA, UNSPECIFIED 09/09/2019 FAITH TURK Ot G47.33 OBSTRUCTIVE SLEEP APNEA (ADULT) (PEDIATR 09/09/2019 FAITH TURK Ot I10 ESSENTIAL (PRIMARY) HYPERTENSION 09/09/2019 FAITH TURK Ot I27.20 PULMONARY HYPERTENSION, UNSPECIFIED 09/09/2019 FAITH TURK Ot I48.2 CHRONIC ATRIAL FIBRILLATION 09/09/2019 FAITH TURK Ot Z08 ENCNTR FOR FOLLOW-UP EXAM AFTER TRTMT FO 09/09/2019 FAITH TURK Ot Z79.01 [facility] (CURRENT) USE OF ANTICOAGULANT 09/09/2019 FAITH TURK Ot Z79.4 ENVIRONMENTAL DIRECTOR (CURRENT) USE OF INSULIN 09/09/2019 FAITH TURK Ot Z79.82 [facility] (CURRENT) USE OF ASPIRIN 09/09/2019 FAITH TURK Ot Z79.899 OTHER [facility] (CURRENT) DRUG THERAPY 09/09/2019 FAITH TURK Ot Z85.3 PERSONAL HISTORY OF MALIGNANT NEOPLASM O 09/09/2019 FAITH TURK Ot Z86.711 PERSONAL HISTORY OF PULMONARY EMBOLISM 09/09/2019 FAITH TURK Ot Z86.718 PERSONAL HISTORY OF OTHER VENOUS THROMBO 09/09/2019 FAITH TURK Ot Z90.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 09/09/2019 FAITH TURK Ot Z92.21 PERSONAL HISTORY OF ANTINEOPLASTIC CHEMO 09/09/2019 KO KENDRICK DO Ot M51.36 OTHER INTERVERTEBRAL DISC DEGENERATION, 09/09/2019 FAITH TURK Ot R92.8 OTH ABN AND INCONCLUSIVE FINDINGS ON DX 09/09/2019 FAITH UTRK Ot E11.9 TYPE 2 DIABETES MELLITUS WITHOUT COMPLIC 09/09/2019 FAITH TURK Ot E78.5 HYPERLIPIDEMIA, UNSPECIFIED 09/09/2019 FAITH TURK Ot I10 ESSENTIAL (PRIMARY) HYPERTENSION 09/09/2019 FAITH TURK Ot Z08 ENCNTR FOR FOLLOW-UP EXAM AFTER TRTMT FO 09/09/2019 FAITH TURK Ot Z79.01 [facility] (CURRENT) USE OF ANTICOAGULANT 09/09/2019 FAITH TURK Ot Z79.4 [facility] (CURRENT) USE OF INSULIN 09/09/2019 FAITH TURK Ot Z85.3 PERSONAL HISTORY OF MALIGNANT NEOPLASM O 09/09/2019 FAITH TURK Ot Z86.718 PERSONAL HISTORY OF OTHER VENOUS THROMBO 09/09/2019 FAITH TURK Ot Z90.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 09/09/2019 FAITH TURK Ot Z92.21 PERSONAL HISTORY OF ANTINEOPLASTIC CHEMO 09/09/2019 JOSELUIS BORGESP Ot C50.911 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 09/09/2019 JOSELUIS BORGESP Ot 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 09/09/2019 DANY ESPINAL DO Ot J32.9 CHRONIC SINUSITIS, UNSPECIFIED 09/09/2019 INDIA MOULTON, ERVIN Lanier Ot C92.0 0 ACUTE MYELOBLASTIC LEUKEMIA, NOT HAVING 09/09/2019 INDIA MOULTON, ERVIN Lanier Ot N28.1 CYST OF KIDNEY, ACQUIRED 09/09/2019 JOSELUIS BORGES [facility] DIRECTOR Ot 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 09/09/2019 JOSELUIS BORGES Ot R92.8 OTH ABN AND INCONCLUSIVE FINDINGS ON DX 09/09/2019 JOSELUIS BORGES Ot Z12.31 ENCNTR SCREEN MAMMOGRAM FOR MALIGNANT NE 09/09/2019 JOSELUIS BORGESP Ot Z85.3 PERSONAL HISTORY OF MALIGNANT NEOPLASM O 09/09/2019 Ot J01.01 ACU TE RECURRENT MAXILLARY SINUSITIS 09/09/2019 JOSELUIS BORGES Ot Z12.31 ENCNTR SCREEN MAMMOGRAM FOR MALIGNANT NE 09/09/2019 JOSELUIS BORGES COMMUNITY HEALTH DIRECTOR Ot Z85.3 PERSONAL HISTORY OF MALIGNANT NEOPLASM O 09/09/2019 YANG JASSO, WILLARD K Ot G25.0 ESSENTIAL TREMOR 09/09/2019 YANG JASSO, WILLARD K Ot I48.0 PAROXYSMAL ATRIAL FIBRILLATION 09/09/2019 YANG JASSO, WILLARD K Ot R06.00 DYSPNEA, UNSPECIFIED 09/09/2019 YANG JASSO, WILLARD K Ot R07.9 CHEST PAIN, UNSPECIFIED 09/09/2019 INDIA MOULTON, ERVIN Lanier Ot N28.1 CYST OF KIDNEY, ACQUIRED 09/09/2019 INDIA MOULTON, ERVIN Lanier Ot Z98.8 90 OTHER SPECIFIED POSTPROCEDURAL STATES 09/09/2019 FAITH TURK Ot Z12.31 ENCNTR SCREEN MAMMOGRAM FOR MALIGNANT NE 09/09/2019 FAITH TURK Ot D64.9 ANEMIA, UNSPECIFIED 09/09/2019 FAITH TURK N Ot E11.9 TYPE 2 DIABETES MELLITUS WITHOUT COMPLIC 09/09/2019 FAITH TRUK N Ot E66.9 OBESITY, UNSPECIFIED 09/09/2019 FAITH TURK Ot E78.5 HYPERLIPIDEMIA, UNSPECIFIED 09/09/2019 FAITH TURK N Ot G47.33 OBSTRUCTIVE SLEEP APNEA (ADULT) (PEDIATR 09/09/2019 FAITH TURK Ot I10 ESSENTIAL (PRIMARY) HYPERTENSION 09/09/2019 FAITH TURK Ot I27.20 PULMONARY HYPERTENSION, UNSPECIFIED 09/09/2019 FAITH TURK N Ot Z08 ENCNTR FOR FOLLOW-UP EXAM AFTER TRTMT FO 09/09/2019 FAITH TURK Ot Z68.35 BODY MASS INDEX (BMI) 35.0-35.9, ADULT 09/09/2019 FAITH TURK Ot Z79.01 ENVIRONMENTAL DIRECTOR (CURRENT) USE OF ANTICOAGULANT 09/09/2019 FAITH TURK Ot Z79.4 [facility] (CURRENT) USE OF INSULIN 09/09/2019 FAITH TURK Ot Z79.899 OTHER ENVIRONMENTAL DIRECTOR (CURRENT) DRUG THERAPY 09/09/2019 FAITH TURK Evy Ot Z85.3 PERSONAL HISTORY OF MALIGNANT NEOPLASM O 09/09/2019 FAITH TURK Evy Ot Z86.718 PERSONAL HISTORY OF OTHER VENOUS THROMBO 09/09/2019 FAITH TURK Evy Ot Z90.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 09/09/2019 FAITH TURK Ot Z92.21 PERSONAL HISTORY OF ANTINEOPLASTIC CHEMO 09/09/2019 SANGEETA MARSHALL MD Ot E11 .9 TYPE 2 DIABETES MELLITUS WITHOUT COMPLIC 09/09/2019 SANGEETA MARSHALL MD Ot F31 .9 BIPOLAR DISORDER, UNSPECIFIED 09/09/2019 SANGEETA MARSHALL MD Ot G47.30 SLEEP APNEA, UNSPECIFIED 09/09/2019 SANGEETA MARSHALL MD Ot G89.29 OTHER CHRONIC PAIN 09/09/2019 SANGEETA MARSHALL MD Ot H35.30 UNSPECIFIED MACULAR DEGENERATION 09/09/2019 SANGEETA MARSHALL MD Ot I11 .9 HYPERTENSIVE HEART DISEASE WITHOUT HEART 09/09/2019 SANGEETA MARSHALL MD Ot I25.10 ATHSCL HEART DISEASE OF [place] CORONARY 09/09/2019 SANGEETA MARSHALL MD Ot I25 .2 OLD MYOCARDIAL INFARCTION 09/09/2019 SANGEETA MARSHALL MD Ot I26.99 OTHER PULMONARY EMBOLISM WITHOUT ACUTE C 09/09/2019 SANGEETA MARSHALL MD Ot I48.91 UNSPECIFIED ATRIAL FIBRILLATION 09/09/2019 SANGEETA MARSHALL MD Ot I82.509 CHRONIC EMBOLISM AND THOMBOS UNSP DEEP V 09/09/2019 SANGEETA MARSHALL MD Ot J30 .9 ALLERGIC RHINITIS, UNSPECIFIED 09/09/2019 SANGEETA MARSHALL MD Ot J44 .9 CHRONIC OBSTRUCTIVE PULMONARY DISEASE, U 09/09/2019 SANGEETA MARSHALL MD Ot K21 .9 GASTRO-ESOPHAGEAL REFLUX DISEASE WITHOUT 09/09/2019 SANGEETA MARSHALL MD Ot K52 .9 NONINFECTIVE GASTROENTERITIS AND COLITIS 09/09/2019 SANGEETA MARSHALL MD Ot M19.90 UNSPECIFIED OSTEOARTHRITIS, UNSPECIFIED 09/09/2019 SANGEETA MARSHALL MD Ot M54 .9 DORSALGIA, UNSPECIFIED 09/09/2019 SANGEETA MARSHALL MD Ot M79 .7 FIBROMYALGIA 09/09/2019 SANGEETA MARSHALL MD Ot Z79 .4 [facility] (CURRENT) USE OF INSULIN 09/09/2019 SANGEETA MARSHALL MD Ot Z79.84 ENVIRONMENTAL DIRECTOR (CURRENT) USE OF ORAL HYPOGLYC 09/09/2019 SANGEETA MARSHALL MD Ot Z88 .0 ALLERGY STATUS TO PENICILLIN 09/09/2019 SANGEETA MARSHALL MD Ot Z88 .5 ALLERGY STATUS TO NARCOTIC AGENT STATUS 09/09/2019 SNAGEETA MARSHALL MD Ot Z88 .8 ALLERGY STATUS TO OTH DRUG/MEDS/BIOL SUB 09/09/2019 SANGEETA MARSHALL MD Ot E11 .9 TYPE 2 DIABETES MELLITUS WITHOUT COMPLIC 09/09/2019 SANGEETA MARSHALL MD Ot F31 .9 BIPOLAR DISORDER, UNSPECIFIED 09/09/2019 SANGEETA MARSHALL MD Ot G47.30 SLEEP APNEA, UNSPECIFIED 09/09/2019 SANGEETA MARSHALL MD Ot G89.29 OTHER CHRONIC PAIN 09/09/2019 SANGEETA MARSHALL MD Ot H35.30 UNSPECIFIED MACULAR DEGENERATION 09/09/2019 SANGEETA MARSHALL MD Ot I11 .9 HYPERTENSIVE HEART DISEASE WITHOUT HEART 09/09/2019 SANGEETA MARSHALL MD Ot I25.10 ATHSCL HEART DISEASE OF [place] CORONARY 09/09/2019 SANGEETA MARSHALL MD Ot I25 .2 OLD MYOCARDIAL INFARCTION 09/09/2019 SANGEETA MARSHALL MD Ot I26.99 OTHER PULMONARY EMBOLISM WITHOUT ACUTE C 09/09/2019 SANGEETA MARSHALL MD Ot I48.91 UNSPECIFIED ATRIAL FIBRILLATION 09/09/2019 SANGEETA MARSHALL MD Ot I82.509 CHRONIC EMBOLISM AND THOMBOS UNSP DEEP V 09/09/2019 SANGEETA MARSHALL MD Ot J30 .9 ALLERGIC RHINITIS, UNSPECIFIED 09/09/2019 SANGEETA MARSHALL MD Ot J44 .9 CHRONIC OBSTRUCTIVE PULMONARY DISEASE, U 09/09/2019 SANGEETA MARSHALL MD Ot K21 .9 GASTRO-ESOPHAGEAL REFLUX DISEASE WITHOUT 09/09/2019 SANGEETA MARSHALL MD Ot K52 .9 NONINFECTIVE GASTROENTERITIS AND COLITIS 09/09/2019 SANGEETA MARSHALL MD Ot M19.90 UNSPECIFIED OSTEOARTHRITIS, UNSPECIFIED 09/09/2019 SANGEETA MARSHALL MD Ot M54 .9 DORSALGIA, UNSPECIFIED 09/09/2019 SANGEETA MARSHALL MD, Ot M79 .7 FIBROMYALGIA 09/09/2019 SANGEETA MARSHALL MD, Ot Z79 .4 ENVIRONMENTAL DIRECTOR (CURRENT) USE OF INSULIN 09/09/2019 SANGEETA MARSHALL MD, Ot Z79.84 [facility] (CURRENT) USE OF ORAL HYPOGLYC 09/09/2019 SANGEETA MARSHALL MD, Ot Z88 .0 ALLERGY STATUS TO PENICILLIN 09/09/2019 SANGEETA MARSHALL MD, Ot Z88 .5 ALLERGY STATUS TO NARCOTIC AGENT STATUS 09/09/2019 SANGEETA MARSHALL MD, Ot Z88 .8 ALLERGY STATUS TO OTH DRUG/MEDS/BIOL SUB 10/20/2019 AGATHA ESPINAL [facility] HE[facility] DIRECTOR Ot J01.01 ACUTE RECURRENT MAXILLARY SINUSITIS 10/20/2019 AGATHA ESPINAL COMMUNITY HEALTH DIRECTOR Ot M47.812 SPONDYLOSIS W/O MYELOPATHY OR RADICULOPA 10/20/2019 AGATHA ESPINAL COMMUNITY HEALTH DIRECTOR Ot N30.11 INTERSTITIAL CYSTITIS (CHRONIC) WITH HEM 11/25/2019 ЮЛИЯ PORTILLO Ot E11.9 TYPE 2 DIABETES MELLITUS WITHOUT COMPLIC 11/25/2019 ЮЛИЯ PORTILLO Ot E78.00 PURE HYPERCHOLESTEROLEMIA, UNSPECIFIED 11/25/2019 ЮЛИЯ PORTILLO Ot F03.90 UNSPECIFIED DEMENTIA WITHOUT BEHAVIORAL 11/25/2019 ЮЛИЯ PORTILLO Ot F31.9 BIPOLAR DISORDER, UNSPECIFIED 11/25/2019 ЮЛИЯ PORTILLO Ot F41.9 ANXIETY DISORDER, UNSPECIFIED 11/25/2019 ЮЛИЯ PORTILLO Ot G47.30 SLEEP APNEA, UNSPECIFIED 11/25/2019 ЮЛИЯ PORTILLO Ot I 10 ESSENTIAL (PRIMARY) HYPERTENSION 11/25/2019 ЮЛИЯ PORTILLO Ot I25.10 ATHSCL HEART DISEASE OF [place] CORONARY 11/25/2019 ЮЛИЯ PORTILLO Ot I25.2 OLD MYOCARDIAL INFARCTION 11/25/2019 ЮЛИЯ PORTILLO Ot I48.91 UNSPECIFIED ATRIAL FIBRILLATION 11/25/2019 ЮЛИЯ PORTILLO Ot J18.9 PNEUMONIA, UNSPECIFIED ORGANISM 11/25/2019 ЮЛИЯ PORTILLO Ot J44.0 CHR OBSTRUCTIVE PULMON DISEASE WITH (ACU 11/25/2019 ЮЛИЯ PORTILLO Ot K21.9 GASTRO-ESOPHAGEAL REFLUX DISEASE WITHOUT 11/25/2019 ЮЛИЯ PORTILLO Ot M79.7 FIBROMYALGIA 11/25/2019 ЮЛИЯ PORTILLO Ot R 05 COUGH 11/25/2019 ЮЛИЯ PORTILLO Ot Z79.4 [facility] (CURRENT) USE OF INSULIN 11/25/2019 ЮЛИЯ PORTILLO Ot Z79.51 ENVIRONMENTAL DIRECTOR (CURRENT) USE OF INHALED STERO 11/25/2019 ЮЛИЯ PORTILLO Ot Z80.51 FAMILY HISTORY OF MALIGNANT NEOPLASM OF 11/25/2019 ЮЛИЯ PORTILLO Ot Z85.3 PERSONAL HISTORY OF MALIGNANT NEOPLASM O 11/25/2019 ЮЛИЯ PORTILLO Ot Z86.711 PERSONAL HISTORY OF PULMONARY EMBOLISM 11/25/2019 ЮЛИЯ PORTILLO Ot Z86.718 PERSONAL HISTORY OF OTHER VENOUS THROMBO 11/25/2019 ЮЛИЯ PORTILLO Ot Z87.440 PERSONAL HISTORY OF URINARY (TRACT) INFE 11/25/2019 ЮЛИЯ PORTILLO Ot Z87.891 PERSONAL HISTORY OF NICOTINE DEPENDENCE 11/25/2019 ЮЛИЯ PORTILLO Ot Z88.0 ALLERGY STATUS TO PENICILLIN 11/25/2019 ЮЛИЯ PORTILLO Ot Z88.5 ALLERGY STATUS TO NARCOTIC AGENT STATUS 11/25/2019 ЮЛИЯ PORTILLO Ot Z88.8 ALLERGY STATUS TO OTH DRUG/MEDS/BIOL SUB 11/25/2019 ЮЛИЯ PORTILLO Ot Z90.49 ACQUIRED ABSENCE OF OTHER SPECIFIED PART 11/25/2019 ЮЛИЯ PORTILLO Ot Z90.710 ACQUIRED ABSENCE OF BOTH CERVIX AND UTER 11/25/2019 ЮЛИЯ PORTILLO Ot Z90.89 ACQUIRED ABSENCE OF OTHER ORGANS 11/25/2019 ЮЛИЯ PORTILLO Ot Z99.89 DEPENDENCE ON OTHER ENABLING MACHINES AN 12/01/2019 ЮЛИЯ PORTILLO Ot E11.9 TYPE 2 DIABETES MELLITUS WITHOUT COMPLIC 12/01/2019 ЮЛИЯ PORTILLO Ot E78.00 PURE HYPERCHOLESTEROLEMIA, UNSPECIFIED 12/01/2019 ЮЛИЯ PORTILLO Ot F03.90 UNSPECIFIED DEMENTIA WITHOUT BEHAVIORAL 12/01/2019 ЮЛИЯ PORTILLO Ot F31.9 BIPOLAR DISORDER, UNSPECIFIED 12/01/2019 ЮЛИЯ PORTILLO Ot F41.9 ANXIETY DISORDER, UNSPECIFIED 12/01/2019 ЮЛИЯ PORTILLO Ot G47.30 SLEEP APNEA, UNSPECIFIED 12/01/2019 ЮЛИЯ PORTILLO Ot I 10 ESSENTIAL (PRIMARY) HYPERTENSION 12/01/2019 ЮЛИЯ PORTILLO Ot I25.10 ATHSCL HEART DISEASE OF [place] CORONARY 12/01/2019 ЮЛИЯ PORTILLO Ot I25.2 OLD MYOCARDIAL INFARCTION 12/01/2019 ЮЛИЯ PORTILLO Ot I48.91 UNSPECIFIED ATRIAL FIBRILLATION 12/01/2019 ЮЛИЯ PORTILLO Ot J18.9 PNEUMONIA, UNSPECIFIED ORGANISM 12/01/2019 ЮЛИЯ PORTILLO Ot J44.0 CHR OBSTRUCTIVE PULMON DISEASE WITH (ACU 12/01/2019 ЮЛИЯ PORTILLO Ot K21.9 GASTRO-ESOPHAGEAL REFLUX DISEASE WITHOUT 12/01/2019 ЮЛИЯ PORTILLO Ot M79.7 FIBROMYALGIA 12/01/2019 ЮЛИЯ PORTILLO Ot R 05 COUGH 12/01/2019 ЮЛИЯ PORTILLO Ot Z79.4 ENVIRONMENTAL DIRECTOR (CURRENT) USE OF INSULIN 12/01/2019 ЮЛИЯ PORTILLO Ot Z79.51 ENVIRONMENTAL DIRECTOR (CURRENT) USE OF INHALED STERO 12/01/2019 ЮЛИЯ PORTILLO Ot Z80.51 FAMILY HISTORY OF MALIGNANT NEOPLASM OF 12/01/2019 ЮЛИЯ PORTILLO Ot Z85.3 PERSONAL HISTORY OF MALIGNANT NEOPLASM O 12/01/2019 ЮЛИЯ PORTILLO Ot Z86.711 PERSONAL HISTORY OF PULMONARY EMBOLISM 12/01/2019 ЮЛИЯ PORTILLO Ot Z86.718 PERSONAL HISTORY OF OTHER VENOUS THROMBO 12/01/2019 ЮЛИЯ PORTILLO Ot Z87.440 PERSONAL HISTORY OF URINARY (TRACT) INFE 12/01/2019 ЮЛИЯ PORTILLO Ot Z87.891 PERSONAL HISTORY OF NICOTINE DEPENDENCE 12/01/2019 ЮЛИЯ PORTILLO Ot Z88.0 ALLERGY STATUS TO PENICILLIN 12/01/2019 ЮЛИЯ PORTILLO Ot Z88.5 ALLERGY STATUS TO NARCOTIC AGENT STATUS 12/01/2019 ЮЛИЯ PORTILLO Ot Z88.8 ALLERGY STATUS TO OTH DRUG/MEDS/BIOL SUB 12/01/2019 ЮЛИЯ PORTILLO Ot Z90.49 ACQUIRED ABSENCE OF OTHER SPECIFIED PART 12/01/2019 ЮЛИЯ PORTILLO Ot Z90.710 ACQUIRED ABSENCE OF BOTH CERVIX AND UTER 12/01/2019 ЮЛИЯ PORTILLO Ot Z90.89 ACQUIRED ABSENCE OF OTHER ORGANS 12/01/2019 ЮЛИЯ PORTILLO Ot Z99.89 DEPENDENCE ON OTHER ENABLING MACHINES AN 12/18/2019 KELY WEBSTER MD Ot E11. 9 TYPE 2 DIABETES MELLITUS WITHOUT COMPLIC 12/18/2019 KELY WEBSTER MD Ot E78. 00 PURE HYPERCHOLESTEROLEMIA, UNSPECIFIED 12/18/2019 KELY WEBSTER MD, Ot F31. 9 BIPOLAR DISORDER, UNSPECIFIED 12/18/2019 KELY WEBSTER MD, Ot F41. 9 ANXIETY DISORDER, UNSPECIFIED 12/18/2019 KELY WEBSTER MD Ot G47. 33 OBSTRUCTIVE SLEEP APNEA (ADULT) (PEDIATR 12/18/2019 KELY WEBSTER MD Ot G89. 29 OTHER CHRONIC PAIN 12/18/2019 KELY WEBSTER MD Ot I11. 0 HYPERTENSIVE HEART DISEASE WITH HEART FA 12/18/2019 KELY WEBSTER MD Ot I25. 10 ATHSCL HEART DISEASE OF [place] CORONARY 12/18/2019 KELY WEBSTER MD Ot I25. 2 OLD MYOCARDIAL INFARCTION 12/18/2019 KELY WEBSTER MD Ot I48. 0 PAROXYSMAL ATRIAL FIBRILLATION 12/18/2019 KELY WEBSTER MD Ot I50. 33 ACUTE ON CHRONIC DIASTOLIC (CONGESTIVE) 12/18/2019 KELY WEBSTER MD Ot I82.409 ACUTE EMBOLISM AND THOMBOS UNSP DEEP VN 12/18/2019 KELY WEBSTER MD Ot J44. 9 CHRONIC OBSTRUCTIVE PULMONARY DISEASE, U 12/18/2019 KELY WEBSTER MD Ot K21. 9 GASTRO-ESOPHAGEAL REFLUX DISEASE WITHOUT 12/18/2019 KELY WEBSTER MD Ot M19. 90 UNSPECIFIED OSTEOARTHRITIS, UNSPECIFIED 12/18/2019 KELY WEBSTER MD Ot M54. 9 DORSALGIA, UNSPECIFIED 12/18/2019 KELY WEBSTER MD Ot M79. 7 FIBROMYALGIA 12/18/2019 KELY WEBSTER MD Ot N39. 0 URINARY TRACT INFECTION, SITE NOT SPECIF 12/18/2019 KELY WEBSTER MD Ot Z79. 84 ENVIRONMENTAL DIRECTOR (CURRENT) USE OF ORAL HYPOGLYC 12/18/2019 KELY WEBSTER MD Ot Z79.891 ENVIRONMENTAL DIRECTOR (CURRENT) USE OF OPIATE ANALGE 12/18/2019 KELY WEBSTER MD Ot Z85. 3 PERSONAL HISTORY OF MALIGNANT NEOPLASM O 12/18/2019 KELY WEBSTER MD Ot Z88. 0 ALLERGY STATUS TO PENICILLIN 12/18/2019 KELY WEBSTER MD Ot Z88. 2 ALLERGY STATUS TO SULFONAMIDES STATUS 12/18/2019 KELY WEBSTER MD Ot Z88. 5 ALLERGY STATUS TO NARCOTIC AGENT STATUS 12/18/2019 KELY WEBSTER MD Ot Z92. 21 PERSONAL HISTORY OF ANTINEOPLASTIC CHEMO 12/18/2019 KELY WEBSTER MD Ot E11. 9 TYPE 2 DIABETES MELLITUS WITHOUT COMPLIC 12/18/2019 KELY WEBSTER MD Ot E78. 00 PURE HYPERCHOLESTEROLEMIA, UNSPECIFIED 12/18/2019 KELY WEBSTER MD Ot F31. 9 BIPOLAR DISORDER, UNSPECIFIED 12/18/2019 KELY WEBSTER MD Ot F41. 9 ANXIETY DISORDER, UNSPECIFIED 12/18/2019 KELY WEBSTER MD Ot G47. 33 OBSTRUCTIVE SLEEP APNEA (ADULT) (PEDIATR 12/18/2019 KELY WEBSTER MD Ot G89. 29 OTHER CHRONIC PAIN 12/18/2019 KELY WEBSTER MD Ot I11. 0 HYPERTENSIVE HEART DISEASE WITH HEART FA 12/18/2019 KELY WEBSTER MD Ot I25. 10 ATHSCL HEART DISEASE OF [place] CORONARY 12/18/2019 KELY WEBSTER MD Ot I25. 2 OLD MYOCARDIAL INFARCTION 12/18/2019 KELY WEBSTER MD Ot I48. 0 PAROXYSMAL ATRIAL FIBRILLATION 12/18/2019 KELY WEBSTER MD Ot I50. 33 ACUTE ON CHRONIC DIASTOLIC (CONGESTIVE) 12/18/2019 KELY WEBSTER MD Ot I82.409 ACUTE EMBOLISM AND THOMBOS UNSP DEEP VN 12/18/2019 KELY WEBSTER MD Ot J44. 9 CHRONIC OBSTRUCTIVE PULMONARY DISEASE, U 12/18/2019 KELY WEBSTER MD Ot K21. 9 GASTRO-ESOPHAGEAL REFLUX DISEASE WITHOUT 12/18/2019 KELY WEBSTER MD Ot M19. 90 UNSPECIFIED OSTEOARTHRITIS, UNSPECIFIED 12/18/2019 KELY WEBSTER MD, Ot M54. 9 DORSALGIA, UNSPECIFIED 12/18/2019 KELY WEBSTER MD Ot M79. 7 FIBROMYALGIA 12/18/2019 KELY WEBSTER MD, Ot N39. 0 URINARY TRACT INFECTION, SITE NOT SPECIF 12/18/2019 KELY WEBSTER MD Ot Z79. 84 ENVIRONMENTAL DIRECTOR (CURRENT) USE OF ORAL HYPOGLYC 12/18/2019 KELY WEBSTER MD Ot Z79.891 ENVIRONMENTAL DIRECTOR (CURRENT) USE OF OPIATE ANALGE 12/18/2019 KELY WEBSTER MD Ot Z85. 3 PERSONAL HISTORY OF MALIGNANT NEOPLASM O 12/18/2019 KELY WEBSTER MD Ot Z88. 0 ALLERGY STATUS TO PENICILLIN 12/18/2019 KELY WEBSTER MD Ot Z88. 2 ALLERGY STATUS TO SULFONAMIDES STATUS 12/18/2019 KELY WEBSTER MD Ot Z88. 5 ALLERGY STATUS TO NARCOTIC AGENT STATUS 12/18/2019 KELY WEBSTER MD Ot Z92. 21 PERSONAL HISTORY OF ANTINEOPLASTIC CHEMO 12/29/2019 AGATHA ESPINAL Ot M54.2 CERVICALGIA 01/01/2020 KELY WEBSTER MD Ot E11. 9 TYPE 2 DIABETES MELLITUS WITHOUT COMPLIC 01/01/2020 KELY WEBSTER MD Ot E78. 00 PURE HYPERCHOLESTEROLEMIA, UNSPECIFIED 01/01/2020 KELY WEBSTER MD Ot F31. 9 BIPOLAR DISORDER, UNSPECIFIED 01/01/2020 KELY WEBSTER MD Ot F41. 9 ANXIETY DISORDER, UNSPECIFIED 01/01/2020 KELY WEBSTER MD Ot G47. 33 OBSTRUCTIVE SLEEP APNEA (ADULT) (PEDIATR 01/01/2020 KELY WEBSTER MD Ot G89. 29 OTHER CHRONIC PAIN 01/01/2020 KELY WEBSTER MD Ot I11. 0 HYPERTENSIVE HEART DISEASE WITH HEART FA 01/01/2020 KELY WEBSTER MD Ot I25. 10 ATHSCL HEART DISEASE OF [place] CORONARY 01/01/2020 KELY WEBSTER MD Ot I25. 2 OLD MYOCARDIAL INFARCTION 01/01/2020 KELY WEBSTER MD Ot I48. 0 PAROXYSMAL ATRIAL FIBRILLATION 01/01/2020 KELY WEBSTER MD Ot I50. 33 ACUTE ON CHRONIC DIASTOLIC (CONGESTIVE) 01/01/2020 KELY WEBSTER MD, Ot I82.409 ACUTE EMBOLISM AND THOMBOS UNSP DEEP VN 01/01/2020 KELY WEBSTER MD, Ot J44. 9 CHRONIC OBSTRUCTIVE PULMONARY DISEASE, U 01/01/2020 KELY WEBSTER MD, Ot K21. 9 GASTRO-ESOPHAGEAL REFLUX DISEASE WITHOUT 01/01/2020 KELY WEBSTER MD, Ot M19. 90 UNSPECIFIED OSTEOARTHRITIS, UNSPECIFIED 01/01/2020 KELY WEBSTER MD, Ot M54. 9 DORSALGIA, UNSPECIFIED 01/01/2020 KELY WEBSTER MD, Ot M79. 7 FIBROMYALGIA 01/01/2020 KELY WEBSTER MD, Ot N39. 0 URINARY TRACT INFECTION, SITE NOT SPECIF 01/01/2020 KELY WEBSTER MD, Ot Z79. 84 ENVIRONMENTAL DIRECTOR (CURRENT) USE OF ORAL HYPOGLYC 01/01/2020 KELY WEBSTER MD, Ot Z79.891 ENVIRONMENTAL DIRECTOR (CURRENT) USE OF OPIATE ANALGE 01/01/2020 KELY WEBSTER MD Ot Z85. 3 PERSONAL HISTORY OF MALIGNANT NEOPLASM O 01/01/2020 KELY WEBSTER MD Ot Z88. 0 ALLERGY STATUS TO PENICILLIN 01/01/2020 KELY WEBSTER MD Ot Z88. 2 ALLERGY STATUS TO SULFONAMIDES STATUS 01/01/2020 KELY WEBSTER MD Ot Z88. 5 ALLERGY STATUS TO NARCOTIC AGENT STATUS 01/01/2020 KELY WEBSTER MD Ot Z92. 21 PERSONAL HISTORY OF ANTINEOPLASTIC CHEMO 01/01/2020 KELY WEBSTER MD Ot E11. 9 TYPE 2 DIABETES MELLITUS WITHOUT COMPLIC 01/01/2020 KELY WEBSTER MD Ot E78. 00 PURE HYPERCHOLESTEROLEMIA, UNSPECIFIED 01/01/2020 KELY WEBSTER MD, Ot F31. 9 BIPOLAR DISORDER, UNSPECIFIED 01/01/2020 KELY WEBSTER MD, Ot F41. 9 ANXIETY DISORDER, UNSPECIFIED 01/01/2020 KELY WEBSTER MD, Ot G47. 33 OBSTRUCTIVE SLEEP APNEA (ADULT) (PEDIATR 01/01/2020 KELY WEBSTER MD Ot G89. 29 OTHER CHRONIC PAIN 01/01/2020 KELY WEBSTER MD Ot I11. 0 HYPERTENSIVE HEART DISEASE WITH HEART FA 01/01/2020 KELY WEBSTER MD, Ot I25. 10 ATHSCL HEART DISEASE OF [place] CORONARY 01/01/2020 KELY WEBSTER MD, Ot I25. 2 OLD MYOCARDIAL INFARCTION 01/01/2020 KELY WEBSTER MD, Ot I48. 0 PAROXYSMAL ATRIAL FIBRILLATION 01/01/2020 KELY WEBSTER MD, Ot I50. 33 ACUTE ON CHRONIC DIASTOLIC (CONGESTIVE) 01/01/2020 KELY WEBSTER MD Ot I82.409 ACUTE EMBOLISM AND THOMBOS UNSP DEEP VN 01/01/2020 KELY WEBSTER MD, Ot J44. 9 CHRONIC OBSTRUCTIVE PULMONARY DISEASE, U 01/01/2020 KELY WEBSTER MD, Ot K21. 9 GASTRO-ESOPHAGEAL REFLUX DISEASE WITHOUT 01/01/2020 KELY WEBSTER MD, Ot M19. 90 UNSPECIFIED OSTEOARTHRITIS, UNSPECIFIED 01/01/2020 KELY WEBSTER MD, Ot M54. 9 DORSALGIA, UNSPECIFIED 01/01/2020 KELY WEBSTER MD Ot M79. 7 FIBROMYALGIA 01/01/2020 KELY WEBSTER MD, Ot N39. 0 URINARY TRACT INFECTION, SITE NOT SPECIF 01/01/2020 KELY WEBSTER MD Ot Z79. 84 ENVIRONMENTAL DIRECTOR (CURRENT) USE OF ORAL HYPOGLYC 01/01/2020 KELY WEBSTER MD Ot Z79.891 [facility] (CURRENT) USE OF OPIATE ANALGE 01/01/2020 KELY WEBSTER MD Ot Z85. 3 PERSONAL HISTORY OF MALIGNANT NEOPLASM O 01/01/2020 KELY WEBSTER MD Ot Z88. 0 ALLERGY STATUS TO PENICILLIN 01/01/2020 KELY WEBSTER MD Ot Z88. 2 ALLERGY STATUS TO SULFONAMIDES STATUS 01/01/2020 KELY WEBSTER MD Ot Z88. 5 ALLERGY STATUS TO NARCOTIC AGENT STATUS 01/01/2020 KELY WEBSTER MD Ot Z92. 21 PERSONAL HISTORY OF ANTINEOPLASTIC CHEMO 01/05/2020 AGATHA ESPINAL COMMUNITY HEALTH DIRECTOR Ot M54.2 CERVICALGIA 01/05/2020 AGATHA ESPINAL COMMUNITY HEALTH DIRECTOR Ot M54.2 CERVICALGIA 01/18/2020 AGATHA ESPINAL COMMUNITY HEALTH DIRECTOR Ot M54.2 CERVICALGIA 01/18/2020 AGATHA ESPINAL L COMMUNITY HEALTH DIRECTOR Ot M54.2 CERVICALGIA 01/21/2020 AGATHA ESPINAL Ot N39.0 URINARY TRACT INFECTION, SITE NOT SPECIF 01/22/2020 AGATHA ESPINAL Ot N39.0 URINARY TRACT INFECTION, SITE NOT SPECIF 01/22/2020 SIS ZUÑIGA MD Ot E11.9 TYPE 2 DIABETES MELLITUS WITHOUT COMPLIC 01/22/2020 SIS ZUÑIGA MD Ot E78.00 PURE HYPERCHOLESTEROLEMIA, UNSPECIFIED 01/22/2020 SIS ZUÑIGA MD Ot F31.9 BIPOLAR DISORDER, UNSPECIFIED 01/22/2020 SIS ZUÑIGA MD, Ot F41.9 ANXIETY DISORDER, UNSPECIFIED 01/22/2020 SIS ZUÑIGA MD Ot G47.30 SLEEP APNEA, UNSPECIFIED 01/22/2020 SIS ZUÑIGA MD Ot I10 ESSENTIAL (PRIMARY) HYPERTENSION 01/22/2020 SIS ZUÑIGA MD Ot I25.10 ATHSCL HEART DISEASE OF [place] CORONARY 01/22/2020 SIS ZUÑIGA MD, Ot I25.2 OLD MYOCARDIAL INFARCTION 01/22/2020 SIS ZUÑIGA MD Ot I48.91 UNSPECIFIED ATRIAL FIBRILLATION 01/22/2020 SIS ZUÑIGA MD Ot J44.9 CHRONIC OBSTRUCTIVE PULMONARY DISEASE, U 01/22/2020 SIS ZUÑIGA MD, Ot K21.9 GASTRO-ESOPHAGEAL REFLUX DISEASE WITHOUT 01/22/2020 SIS ZUÑIGA MD Ot K59.09 OTHER CONSTIPATION 01/22/2020 SIS ZUÑIGA MD Ot N39.0 URINARY TRACT INFECTION, SITE NOT SPECIF 01/22/2020 SIS ZUÑIGA MD Ot R10.9 UNSPECIFIED ABDOMINAL PAIN 01/22/2020 SIS ZUÑIGA MD Ot Z79.01 [facility] (CURRENT) USE OF ANTICOAGULANT 01/22/2020 SIS ZUÑIGA MD Ot Z79.4 [facility] (CURRENT) USE OF INSULIN 01/22/2020 SIS ZUÑIGA MD Ot Z79.51 ENVIRONMENTAL DIRECTOR (CURRENT) USE OF INHALED STERO 01/22/2020 SIS ZUÑIGA MD Ot Z80.51 FAMILY HISTORY OF MALIGNANT NEOPLASM OF 01/22/2020 SIS ZUÑIGA MD Ot Z85.3 PERSONAL HISTORY OF MALIGNANT NEOPLASM O 01/22/2020 SIS ZUÑIGA MD, Ot Z86.711 PERSONAL HISTORY OF PULMONARY EMBOLISM 01/22/2020 SIS ZUÑIGA MD, Ot Z86.718 PERSONAL HISTORY OF OTHER VENOUS THROMBO 01/22/2020 SIS ZUÑIGA MD, Ot Z87.891 PERSONAL HISTORY OF NICOTINE DEPENDENCE 01/22/2020 SIS ZUÑIGA MD Ot Z88.0 ALLERGY STATUS TO PENICILLIN 01/22/2020 SIS ZUÑIGA MD, Ot Z88.1 ALLERGY STATUS TO OTHER ANTIBIOTIC AGENT 01/22/2020 SIS ZUÑIGA MD, Ot Z88.5 ALLERGY STATUS TO NARCOTIC AGENT STATUS 01/22/2020 SIS ZUÑIGA MD, Ot Z88.8 ALLERGY STATUS TO OTH DRUG/MEDS/BIOL SUB 01/22/2020 SIS ZUÑIGA MD, Ot Z99.89 DEPENDENCE ON OTHER ENABLING MACHINES AN 01/23/2020 AGATHA ESPINAL COMMUNITY HEALTH DIRECTOR Ot N39.0 URINARY TRACT INFECTION, SITE NOT SPECIF 01/24/2020 AGATHA ESPINALP Ot N39.0 URINARY TRACT INFECTION, SITE NOT SPECIF 01/25/2020 SIS ZUÑIGA MD Ot E11.9 TYPE 2 DIABETES MELLITUS WITHOUT COMPLIC 01/25/2020 SIS ZUÑIGA MD Ot E78.00 PURE HYPERCHOLESTEROLEMIA, UNSPECIFIED 01/25/2020 SIS ZUÑIGA MD Ot F31.9 BIPOLAR DISORDER, UNSPECIFIED 01/25/2020 SIS ZUÑIGA MD, Ot F41.9 ANXIETY DISORDER, UNSPECIFIED 01/25/2020 SIS ZUÑIGA MD Ot G47.30 SLEEP APNEA, UNSPECIFIED 01/25/2020 SIS ZUÑIGA MD Ot I10 ESSENTIAL (PRIMARY) HYPERTENSION 01/25/2020 SIS ZUÑIGA MD Ot I25.10 ATHSCL HEART DISEASE OF [place] CORONARY 01/25/2020 SIS ZUÑIGA MD, Ot I25.2 OLD MYOCARDIAL INFARCTION 01/25/2020 SIS ZUÑIGA MD Ot I48.91 UNSPECIFIED ATRIAL FIBRILLATION 01/25/2020 SIS ZUÑIGA MD Ot J44.9 CHRONIC OBSTRUCTIVE PULMONARY DISEASE, U 01/25/2020 SIS ZUÑIGA MD Ot K21.9 GASTRO-ESOPHAGEAL REFLUX DISEASE WITHOUT 01/25/2020 SIS ZUÑIGA MD, Ot K59.09 OTHER CONSTIPATION 01/25/2020 SIS ZUÑIGA MD, Ot N39.0 URINARY TRACT INFECTION, SITE NOT SPECIF 01/25/2020 SIS ZUÑIGA MD, Ot R10.9 UNSPECIFIED ABDOMINAL PAIN 01/25/2020 SIS ZUÑIGA MD, Ot Z79.01 ENVIRONMENTAL DIRECTOR (CURRENT) USE OF ANTICOAGULANT 01/25/2020 SIS ZUÑIGA MD, Ot Z79.4 [facility] (CURRENT) USE OF INSULIN 01/25/2020 SIS ZUÑIGA MD, Ot Z79.51 [facility] (CURRENT) USE OF INHALED STERO 01/25/2020 SIS ZUÑIGA MD, Ot Z80.51 FAMILY HISTORY OF MALIGNANT NEOPLASM OF 01/25/2020 SIS ZUÑIGA MD, Ot Z85.3 PERSONAL HISTORY OF MALIGNANT NEOPLASM O 01/25/2020 SIS ZUÑIGA MD, Ot Z86.711 PERSONAL HISTORY OF PULMONARY EMBOLISM 01/25/2020 SIS ZUÑIGA MD, Ot Z86.718 PERSONAL HISTORY OF OTHER VENOUS THROMBO 01/25/2020 SIS ZUÑIGA MD, Ot Z87.891 PERSONAL HISTORY OF NICOTINE DEPENDENCE 01/25/2020 SIS ZUÑIGA MD, Ot Z88.0 ALLERGY STATUS TO PENICILLIN 01/25/2020 SIS ZUÑIGA MD Ot Z88.1 ALLERGY STATUS TO OTHER ANTIBIOTIC AGENT 01/25/2020 SIS ZUÑIGA MD, Ot Z88.5 ALLERGY STATUS TO NARCOTIC AGENT STATUS 01/25/2020 SIS ZUÑIGA MD, Ot Z88.8 ALLERGY STATUS TO OTH DRUG/MEDS/BIOL SUB 01/25/2020 ISS ZUÑIGA MD Ot Z99.89 DEPENDENCE ON OTHER ENABLING MACHINES AN 01/25/2020 AGATHA ESPINAL Ot N39.0 URINARY TRACT INFECTION, SITE NOT SPECIF 01/26/2020 SIS ZUÑIGA MD Ot E11.9 TYPE 2 DIABETES MELLITUS WITHOUT COMPLIC 01/26/2020 SIS ZUÑIGA MD Ot E78.00 PURE HYPERCHOLESTEROLEMIA, UNSPECIFIED 01/26/2020 SIS ZUÑIGA MD Ot F31.9 BIPOLAR DISORDER, UNSPECIFIED 01/26/2020 SIS ZUÑIGA MD, Ot F41.9 ANXIETY DISORDER, UNSPECIFIED 01/26/2020 SIS ZUÑIGA MD, Ot G47.30 SLEEP APNEA, UNSPECIFIED 01/26/2020 SIS ZUÑIGA MD, Ot I10 ESSENTIAL (PRIMARY) HYPERTENSION 01/26/2020 SIS ZUÑIGA MD, Ot I25.10 ATHSCL HEART DISEASE OF [place] CORONARY 01/26/2020 SIS ZUÑIGA MD, Ot I25.2 OLD MYOCARDIAL INFARCTION 01/26/2020 SIS ZUÑIGA MD Ot I48.91 UNSPECIFIED ATRIAL FIBRILLATION 01/26/2020 SIS ZUÑIGA MD, Ot J44.9 CHRONIC OBSTRUCTIVE PULMONARY DISEASE, U 01/26/2020 SIS ZUÑIGA MD, Ot K21.9 GASTRO-ESOPHAGEAL REFLUX DISEASE WITHOUT 01/26/2020 SIS ZUÑIGA MD, Ot K59.09 OTHER CONSTIPATION 01/26/2020 SIS ZUÑIGA MD, Ot N39.0 URINARY TRACT INFECTION, SITE NOT SPECIF 01/26/2020 SIS ZUÑIGA MD Ot R10.9 UNSPECIFIED ABDOMINAL PAIN 01/26/2020 SIS ZUÑIGA MD Ot Z79.01 [facility] (CURRENT) USE OF ANTICOAGULANT 01/26/2020 SIS ZUÑIGA MD Ot Z79.4 [facility] (CURRENT) USE OF INSULIN 01/26/2020 SIS ZUÑIGA MD, Ot Z79.51 [facility] (CURRENT) USE OF INHALED STERO 01/26/2020 SIS ZUÑIGA MD Ot Z80.51 FAMILY HISTORY OF MALIGNANT NEOPLASM OF 01/26/2020 SIS ZUÑIGA MD Ot Z85.3 PERSONAL HISTORY OF MALIGNANT NEOPLASM O 01/26/2020 SIS ZUÑIGA MD Ot Z86.711 PERSONAL HISTORY OF PULMONARY EMBOLISM 01/26/2020 SIS ZUÑIGA MD, Ot Z86.718 PERSONAL HISTORY OF OTHER VENOUS THROMBO 01/26/2020 SIS ZUÑIGA MD Ot Z87.891 PERSONAL HISTORY OF NICOTINE DEPENDENCE 01/26/2020 SIS ZUÑIGA MD Ot Z88.0 ALLERGY STATUS TO PENICILLIN 01/26/2020 SIS ZUÑIGA MD Ot Z88.1 ALLERGY STATUS TO OTHER ANTIBIOTIC AGENT 01/26/2020 SIS ZUÑIGA MD, Ot Z88.5 ALLERGY STATUS TO NARCOTIC AGENT STATUS 01/26/2020 SIS ZUÑIGA MD, Ot Z88.8 ALLERGY STATUS TO OTH DRUG/MEDS/BIOL SUB 01/26/2020 SIS ZUÑIGA MD, Ot Z99.89 DEPENDENCE ON OTHER ENABLING MACHINES AN 01/26/2020 ESPINAL, AGATHA L COMMUNITY HEALTH DIRECTOR Ot N39.0 URINARY TRACT INFECTION, SITE NOT SPECIF 01/27/2020 ESPINAL, AGATHA L COMMUNITY HEALTH DIRECTOR Ot R10.2 PELVIC AND PERINEAL PAIN 01/27/2020 ESPINAL, AGATHA L COMMUNITY HEALTH DIRECTOR Ot N39.0 URINARY TRACT INFECTION, SITE NOT SPECIF 01/27/2020 ESPINAL, AGATHA L COMMUNITY HEALTH DIRECTOR Ot M54.2 CERVICALGIA 01/28/2020 ESPINAL, AGATHA L COMMUNITY HEALTH DIRECTOR Ot M54.2 CERVICALGIA 02/01/2020 ESPINAL, AGATHA L COMMUNITY HEALTH DIRECTOR Ot N39.0 URINARY TRACT INFECTION, SITE NOT SPECIF 02/01/2020 ESPINAL, AGATHA L COMMUNITY HEALTH DIRECTOR Ot N39.0 URINARY TRACT INFECTION, SITE NOT SPECIF 02/03/2020 FARZAD MOULTON, MEGHA Ku Ot 786.2 COUGH 02/03/2020 RVAEN LEO WILL CALL ORDER CLERK Ot 729.5 PAIN IN LIMB 02/03/2020 RAVEN LEO WILL CALL ORDER CLERK Ot 786.05 SHORTNESS OF BREATH 02/03/2020 ERVIN OSBORNE MD Ot 593.2 CYST OF KIDNEY, ACQUIRED 02/03/2020 FARZAD MOULTON, MEGHA Ku Ot 428.0 CONGESTIVE HEART FAILURE NOS 02/03/2020 ERVIN OSBORNE MD Ot 753.1 0 CYSTIC KIDNEY DISEASE, UNSPECIFIED 02/03/2020 FAITH TURK Ot V10.3 HX OF BREAST MALIGNANCY 02/03/2020 FAITH TURK Ot V12.51 HX- VENOUS THROMBOSIS EMBOLISM 02/03/2020 FAITH TURK Ot V12.55 PERSONAL HISTORY OF PULMONARY EMBOLISM 02/03/2020 FAITH TURK Ot V45.71 ACQUIRED ABSENCE OF BREAST AND NIPPLE 02/03/2020 FAITH TURK Ot V58.61 ANTICOAGULANTS,LT,CURRENT USE 02/03/2020 FAITH TURK Ot V58.69 OTH MED,LT,CURRENT USE 02/03/2020 ROSALEEEDNA RABAGOSUJATA Ratliff Ot V67.2 CHEMOTHERAPY FOLLOW-UP 02/03/2020 FAITH TURK Ot 174.9 MALIGN NEOPL BREAST NOS 02/03/2020 MEGHA PANDA MD Ot 276.1 HYPOSMOLALITY 02/03/2020 MEGHA PANDA MD Ot 250.0 0 DIAB TJ WO COMPL, TYPE II OR UNSPEC TY 02/03/2020 MEGHA PANDA MD Ot 276.8 HYPOPOTASSEMIA 02/03/2020 MEGHA PANDA MD Ot 250.0 0 DIAB TJ WO COMPL, TYPE II OR UNSPEC TY 02/03/2020 MEGHA PANDA MD Ot V58.6 9 OTH MED,LT,CURRENT USE 02/03/2020 MEGHA PANDA MD Ot L03.9 0 CELLULITIS, UNSPECIFIED 02/03/2020 MEGHA PANDA MD Ot Z51.8 1 ENCOUNTER FOR THERAPEUTIC DRUG LEVEL MON 02/03/2020 MEGHA PANDA MD Ot Z79.2 [facility] (CURRENT) USE OF ANTIBIOTICS 02/03/2020 AGATHA ESPINAL Ot N39.0 URINARY TRACT INFECTION, SITE NOT SPECIF 02/03/2020 DANY ESPINAL DO Ot E03.9 HYPOTHYROIDISM, UNSPECIFIED 02/03/2020 DANY ESPINAL DO Ot I48.2 CHRONIC ATRIAL FIBRILLATION 02/03/2020 DANY ESPINAL DO Ot N39.0 URINARY TRACT INFECTION, SITE NOT SPECIF 02/03/2020 ESPINALDANY CASTRO DO Ot N39.0 URINARY TRACT INFECTION, SITE NOT SPECIF 02/03/2020 Ot 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 02/03/2020 Ot N28.1 CYST OF KIDNEY, ACQUIRED 02/03/2020 JOSELUIS BORGES Ot Z 08 ENCNTR FOR FOLLOW-UP EXAM AFTER TRTMT FO 02/03/2020 JOSELUIS BORGES Ot Z79.01 [facility] (CURRENT) USE OF ANTICOAGULANT 02/03/2020 JOSELUIS BORGES Ot Z85.3 PERSONAL HISTORY OF MALIGNANT NEOPLASM O 02/03/2020 JOSELUIS BORGES Ot Z86.718 PERSONAL HISTORY OF OTHER VENOUS THROMBO 02/03/2020 JOSELUIS BORGES Ot Z90.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 02/03/2020 JOSELUIS BORGES Ot Z12.31 ENCNTR SCREEN MAMMOGRAM FOR MALIGNANT NE 02/03/2020 DANY ESPINAL DO Ot 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 2 MIXED HYPERLIPIDEMIA 02/03/2020 LAKISHA MOULTON, SHEELA Short Ot G25. 0 ESSENTIAL TREMOR 02/03/2020 SHEELA BANUELOS MD Ot I10 ESSENTIAL (PRIMARY) HYPERTENSION 02/03/2020 LAKISHA MOULTON, SHEELA Short Ot I48. 0 PAROXYSMAL ATRIAL FIBRILLATION 02/03/2020 SHEELA BANUELOS MD Ot R07. 9 CHEST PAIN, UNSPECIFIED 02/03/2020 MARSHA DPM, FRANCK Stanton Ot M79.604 PAIN IN RIGHT LEG 02/03/2020 AGATHA ESPINAL COMMUNITY HEALTH DIRECTOR Ot N28.1 CYST OF KIDNEY, ACQUIRED 02/03/2020 AGATHA ESPINAL COMMUNITY HEALTH DIRECTOR Ot R10.2 PELVIC AND PERINEAL PAIN 02/03/2020 INDIA MOULTON, ERVIN Lanier Ot N28.1 CYST OF KIDNEY, ACQUIRED 02/03/2020 FAITH TURK Ot B02.29 OTHER POSTHERPETIC NERVOUS SYSTEM INVOLV 02/03/2020 FAITH TURK Ot E11.9 TYPE 2 DIABETES MELLITUS WITHOUT COMPLIC 02/03/2020 FAITH TURK Ot E78.5 HYPERLIPIDEMIA, UNSPECIFIED 02/03/2020 FAITH TURK Ot G47.33 OBSTRUCTIVE SLEEP APNEA (ADULT) (PEDIATR 02/03/2020 FAITH TURK Ot I10 ESSENTIAL (PRIMARY) HYPERTENSION 02/03/2020 FAITH TURK Ot I27.20 PULMONARY HYPERTENSION, UNSPECIFIED 02/03/2020 FAITH TURK Ot I48.2 CHRONIC ATRIAL FIBRILLATION 02/03/2020 FAITH TURK Ot Z08 ENCNTR FOR FOLLOW-UP EXAM AFTER TRTMT FO 02/03/2020 FAITH TURK Ot Z79.01 ENVIRONMENTAL DIRECTOR (CURRENT) USE OF ANTICOAGULANT 02/03/2020 EDNA TURKAN N Ot Z79.4 [facility] (CURRENT) USE OF INSULIN 02/03/2020 ROSALEEFAITH Ot Z79.82 [facility] (CURRENT) USE OF ASPIRIN 02/03/2020 ROSALEEFAITH Ot Z79.899 OTHER ENVIRONMENTAL DIRECTOR (CURRENT) DRUG THERAPY 02/03/2020 ROSALEE FAITH Ratliff Ot Z85.3 PERSONAL HISTORY OF MALIGNANT NEOPLASM O 02/03/2020 ROSALEE FAITH Ratliff Ot Z86.711 PERSONAL HISTORY OF PULMONARY EMBOLISM 02/03/2020 ROSALEEFAITH Ot Z86.718 PERSONAL HISTORY OF OTHER VENOUS THROMBO 02/03/2020 ROSALEEFAITH Ot Z90.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 02/03/2020 ROSALEEFAITH Ot Z92.21 PERSONAL HISTORY OF ANTINEOPLASTIC CHEMO 02/03/2020 KO KENDRICK DO Ot M51.36 OTHER INTERVERTEBRAL DISC DEGENERATION, 02/03/2020 ROSALEE FAITH Ratliff Ot R92.8 OTH ABN AND INCONCLUSIVE FINDINGS ON DX 02/03/2020 ROSALEEEDNASUJATA Evy Ot E11.9 TYPE 2 DIABETES MELLITUS WITHOUT COMPLIC 02/03/2020 ROSALEEFAITH Ot E78.5 HYPERLIPIDEMIA, UNSPECIFIED 02/03/2020 ROSALEEFAITH Ot I10 ESSENTIAL (PRIMARY) HYPERTENSION 02/03/2020 ROSALEEFAITH Ot Z08 ENCNTR FOR FOLLOW-UP EXAM AFTER TRTMT FO 02/03/2020 ROSALEEEDNASUJATA Evy Ot Z79.01 [facility] (CURRENT) USE OF ANTICOAGULANT 02/03/2020 ROSALEEFAITH Ot Z79.4 [facility] (CURRENT) USE OF INSULIN 02/03/2020 ROSALEEFAITH Ot Z85.3 PERSONAL HISTORY OF MALIGNANT NEOPLASM O 02/03/2020 ROSALEEEDNASUJATA Evy Ot Z86.718 PERSONAL HISTORY OF OTHER VENOUS THROMBO 02/03/2020 ROSALEEFAITH Ot Z90.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 02/03/2020 ROSALEEFAITH Ot Z92.21 PERSONAL HISTORY OF ANTINEOPLASTIC CHEMO 02/03/2020 JOSELUIS BORGES Ot C50.911 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 02/03/2020 JOSELUIS BORGES COMMUNITY HEALTH DIRECTOR Ot 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 02/03/2020 TEDDY CHAUHAN DANY Short Ot J32.9 CHRONIC SINUSITIS, UNSPECIFIED 02/03/2020 ERVIN OSBORNE MD Ot C92.0 0 ACUTE MYELOBLASTIC LEUKEMIA, NOT HAVING 02/03/2020 ERVIN OSBORNE MD Ot N28.1 CYST OF KIDNEY, ACQUIRED 02/03/2020 BORGES, JOSELUIS S COMMUNITY HEALTH DIRECTOR Ot 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 02/03/2020 JONY JOSELUIS S COMMUNITY HEALTH DIRECTOR Ot R92.8 OTH ABN AND INCONCLUSIVE FINDINGS ON DX 02/03/2020 JONY JOSELUIS S COMMUNITY HEALTH DIRECTOR Ot Z12.31 ENCNTR SCREEN MAMMOGRAM FOR MALIGNANT NE 02/03/2020 JONY JOSELUIS S COMMUNITY HEALTH DIRECTOR Ot Z85.3 PERSONAL HISTORY OF MALIGNANT NEOPLASM O 02/03/2020 Ot J01.01 ACU TE RECURRENT MAXILLARY SINUSITIS 02/03/2020 JONY JOSELUIS S COMMUNITY HEALTH DIRECTOR Ot Z12.31 ENCNTR SCREEN MAMMOGRAM FOR MALIGNANT NE 02/03/2020 REDD BORGESCAITIE S COMMUNITY HEALTH DIRECTOR Ot Z85.3 PERSONAL HISTORY OF MALIGNANT NEOPLASM O 02/03/2020 WILLARD PARR Ot G25.0 ESSENTIAL TREMOR 02/03/2020 WILLARD PARR Ot I48.0 PAROXYSMAL ATRIAL FIBRILLATION 02/03/2020 WILLARD PARR Ot R06.00 DYSPNEA, UNSPECIFIED 02/03/2020 WILLARD PARR Ot R07.9 CHEST PAIN, UNSPECIFIED 02/03/2020 ERVIN OSBORNE MD Ot N28.1 CYST OF KIDNEY, ACQUIRED 02/03/2020 ERVIN OSBORNE MD Ot Z98.8 90 OTHER SPECIFIED POSTPROCEDURAL STATES 02/03/2020 FAITH TURK Ot Z12.31 ENCNTR SCREEN MAMMOGRAM FOR MALIGNANT NE 02/03/2020 FAITH TURK Ot D64.9 ANEMIA, UNSPECIFIED 02/03/2020 FAITH TURK Ot E11.9 TYPE 2 DIABETES MELLITUS WITHOUT COMPLIC 02/03/2020 FAITH TURK Ot E66.9 OBESITY, UNSPECIFIED 02/03/2020 FAITH TURK Ot E78.5 HYPERLIPIDEMIA, UNSPECIFIED 02/03/2020 FAITH TURK Ot G47.33 OBSTRUCTIVE SLEEP APNEA (ADULT) (PEDIATR 02/03/2020 FAITH TURK Evy Ot I10 ESSENTIAL (PRIMARY) HYPERTENSION 02/03/2020 FAITH TURK Evy Ot I27.20 PULMONARY HYPERTENSION, UNSPECIFIED 02/03/2020 FAITH TURK Evy Ot Z08 ENCNTR FOR FOLLOW-UP EXAM AFTER TRTMT FO 02/03/2020 FAITH TURK Evy Ot Z68.35 BODY MASS INDEX (BMI) 35.0-35.9, ADULT 02/03/2020 FAITH TURK Evy Ot Z79.01 [facility] (CURRENT) USE OF ANTICOAGULANT 02/03/2020 FAITH TURK Evy Ot Z79.4 ENVIRONMENTAL DIRECTOR (CURRENT) USE OF INSULIN 02/03/2020 ROSALEE FAITH Evy Ot Z79.899 OTHER ENVIRONMENTAL DIRECTOR (CURRENT) DRUG THERAPY 02/03/2020 FAITH TURK Evy Ot Z85.3 PERSONAL HISTORY OF MALIGNANT NEOPLASM O 02/03/2020 FAITH TURK Evy Ot Z86.718 PERSONAL HISTORY OF OTHER VENOUS THROMBO 02/03/2020 FAITH TURK Evy Ot Z90.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 02/03/2020 FAITH TURK Evy Ot Z92.21 PERSONAL HISTORY OF ANTINEOPLASTIC CHEMO 02/03/2020 AGATHA ESPINAL COMMUNITY HEALTH DIRECTOR Ot J01.01 ACUTE RECURRENT MAXILLARY SINUSITIS 02/03/2020 AGATHA ESPINAL COMMUNITY HEALTH DIRECTOR Ot M47.812 SPONDYLOSIS W/O MYELOPATHY OR RADICULOPA 02/03/2020 AGATHA ESPINAL COMMUNITY HEALTH DIRECTOR Ot 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.11 INTERSTITIAL CYSTITIS (CHRONIC) WITH HEM 02/03/2020 AGATHA ESPINAL COMMUNITY HEALTH DIRECTOR Ot M54.2 CERVICALGIA 02/03/2020 AGATHA ESPINAL COMMUNITY HEALTH DIRECTOR Ot R10.2 PELVIC AND PERINEAL PAIN 02/03/2020 MEGHA PANDA MD Ot 786.2 COUGH 02/03/2020 RAVEN LEO APRN Ot 729.5 PAIN IN LIMB 02/03/2020 RAVEN LEO WILL CALL ORDER CLERK Ot 786.05 SHORTNESS OF BREATH 02/03/2020 IND[place] MOULTON, ERVIN Lanier Ot 593.2 CYST OF KIDNEY, ACQUIRED 02/03/2020 MEGHA PANDA MD Ot 428.0 CONGESTIVE HEART FAILURE NOS 02/03/2020 IND[place] MOULTON, ERVIN A Ot 753.1 0 CYSTIC KIDNEY DISEASE, UNSPECIFIED 02/03/2020 FAITH TURK Evy Ot V10.3 HX OF BREAST MALIGNANCY 02/03/2020 ROSALEE FAITH Ratliff Ot V12.51 HX- VENOUS THROMBOSIS EMBOLISM 02/03/2020 ROSALEE EDNASUJATA Evy Ot V12.55 PERSONAL HISTORY OF PULMONARY EMBOLISM 02/03/2020 ROSALEE FAITH Ratliff Ot V45.71 ACQUIRED ABSENCE OF BREAST AND NIPPLE 02/03/2020 ROSALEE FAITH Ratliff Ot V58.61 ANTICOAGULANTS,LT,CURRENT USE 02/03/2020 ROSALEE FAITH Ratliff Ot V58.69 OTH MED,LT,CURRENT USE 02/03/2020 ROSALEEFAITH Ot V67.2 CHEMOTHERAPY FOLLOW-UP 02/03/2020 FAITH TURK Ot 174.9 MALIGN NEOPL BREAST NOS 02/03/2020 MEGHA PANDA MD Ot 276.1 HYPOSMOLALITY 02/03/2020 MEGHA PANDA MD Ot 250.0 0 DIAB TJ WO COMPL, TYPE II OR UNSPEC TY 02/03/2020 MEGAH PANDA MD Ot 276.8 HYPOPOTASSEMIA 02/03/2020 MEGHA PANDA MD Ot 250.0 0 DIAB TJ WO COMPL, TYPE II OR UNSPEC TY 02/03/2020 MEGHA PANDA MD Ot V58.6 9 OTH MED,LT,CURRENT USE 02/03/2020 MEGHA PANDA MD Ot L03.9 0 CELLULITIS, UNSPECIFIED 02/03/2020 MEGHA PANDA MD Ot Z51.8 1 ENCOUNTER FOR THERAPEUTIC DRUG LEVEL MON 02/03/2020 MEGHA PANDA MD Ot Z79.2 [facility] (CURRENT) USE OF ANTIBIOTICS 02/03/2020 AGATHA ESPINAL Ot N39.0 URINARY TRACT INFECTION, SITE NOT SPECIF 02/03/2020 DANY ESPINAL DO Ot E03.9 HYPOTHYROIDISM, UNSPECIFIED 02/03/2020 DANY ESPINAL DO Ot I48.2 CHRONIC ATRIAL FIBRILLATION 02/03/2020 DANY ESPINAL DO Ot N39.0 URINARY TRACT INFECTION, SITE NOT SPECIF 02/03/2020 DANY ESPINAL DO Ot N39.0 URINARY TRACT INFECTION, SITE NOT SPECIF 02/03/2020 Ot 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 02/03/2020 Ot N28.1 CYST OF KIDNEY, ACQUIRED 02/03/2020 JOSELUIS BORGES COMMUNITY HEALTH DIRECTOR Ot Z 08 ENCNTR FOR FOLLOW-UP EXAM AFTER TRTMT FO 02/03/2020 JOSELUIS BORGES COMMUNITY HEALTH DIRECTOR Ot Z79.01 [facility] (CURRENT) USE OF ANTICOAGULANT 02/03/2020 JOSELUIS BORGES COMMUNITY HEALTH DIRECTOR Ot Z85.3 PERSONAL HISTORY OF MALIGNANT NEOPLASM O 02/03/2020 JOSELUIS BORGES COMMUNITY HEALTH DIRECTOR Ot Z86.718 PERSONAL HISTORY OF OTHER VENOUS THROMBO 02/03/2020 JOSELUIS BORGES COMMUNITY HEALTH DIRECTOR Ot Z90.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 02/03/2020 JOSELUIS BORGES COMMUNITY HEALTH DIRECTOR Ot Z12.31 ENCNTR SCREEN MAMMOGRAM FOR MALIGNANT NE 02/03/2020 DANY ESPINAL DO Ot 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 2 MIXED HYPERLIPIDEMIA 02/03/2020 SHEELA BANUELOS MD Ot G25. 0 ESSENTIAL TREMOR 02/03/2020 SHEELA BANUELOS MD Ot I10 ESSENTIAL (PRIMARY) HYPERTENSION 02/03/2020 SHEELA BANUELOS MD Ot I48. 0 PAROXYSMAL ATRIAL FIBRILLATION 02/03/2020 SHEELA BANUELOS MD Ot R07. 9 CHEST PAIN, UNSPECIFIED 02/03/2020 MARSHA DPM, FRANCK Stanton Ot M79.604 PAIN IN RIGHT LEG 02/03/2020 AGATHA ESPINALP Ot N28.1 CYST OF KIDNEY, ACQUIRED 02/03/2020 AGAHTA ESPINALP Ot R10.2 PELVIC AND PERINEAL PAIN 02/03/2020 INDIA MOULTON, ERVIN Lanier Ot N28.1 CYST OF KIDNEY, ACQUIRED 02/03/2020 FAITH TURK Ot B02.29 OTHER POSTHERPETIC NERVOUS SYSTEM INVOLV 02/03/2020 FAITH TURK Ot E11.9 TYPE 2 DIABETES MELLITUS WITHOUT COMPLIC 02/03/2020 FAITH TURK Ot E78.5 HYPERLIPIDEMIA, UNSPECIFIED 02/03/2020 ROSALEEFAITH Ot G47.33 OBSTRUCTIVE SLEEP APNEA (ADULT) (PEDIATR 02/03/2020 FAITH TURK Ot I10 ESSENTIAL (PRIMARY) HYPERTENSION 02/03/2020 FAITH TURK Ot I27.20 PULMONARY HYPERTENSION, UNSPECIFIED 02/03/2020 FAITH TURK Ot I48.2 CHRONIC ATRIAL FIBRILLATION 02/03/2020 FAITH TURK Ot Z08 ENCNTR FOR FOLLOW-UP EXAM AFTER TRTMT FO 02/03/2020 FAITH TURK Ot Z79.01 ENVIRONMENTAL DIRECTOR (CURRENT) USE OF ANTICOAGULANT 02/03/2020 FAITH TURK Ot Z79.4 [facility] (CURRENT) USE OF INSULIN 02/03/2020 FAITH TURK Ot Z79.82 ENVIRONMENTAL DIRECTOR (CURRENT) USE OF ASPIRIN 02/03/2020 FAITH TURK Ot Z79.899 OTHER ENVIRONMENTAL DIRECTOR (CURRENT) DRUG THERAPY 02/03/2020 FAITH TURK Ot Z85.3 PERSONAL HISTORY OF MALIGNANT NEOPLASM O 02/03/2020 FAITH TURK Ot Z86.711 PERSONAL HISTORY OF PULMONARY EMBOLISM 02/03/2020 FAITH TURK Ot Z86.718 PERSONAL HISTORY OF OTHER VENOUS THROMBO 02/03/2020 FAITH TURK Ot Z90.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 02/03/2020 FAITH TURK Ot Z92.21 PERSONAL HISTORY OF ANTINEOPLASTIC CHEMO 02/03/2020 KO KENDRICK DO Ot M51.36 OTHER INTERVERTEBRAL DISC DEGENERATION, 02/03/2020 FAITH TURK Ot R92.8 OTH ABN AND INCONCLUSIVE FINDINGS ON DX 02/03/2020 FAITH TURK Ot E11.9 TYPE 2 DIABETES MELLITUS WITHOUT COMPLIC 02/03/2020 FAITH TURK Ot E78.5 HYPERLIPIDEMIA, UNSPECIFIED 02/03/2020 FAITH TURK Ot I10 ESSENTIAL (PRIMARY) HYPERTENSION 02/03/2020 FAITH TURK Ot Z08 ENCNTR FOR FOLLOW-UP EXAM AFTER TRTMT FO 02/03/2020 FAITH TURK Ot Z79.01 [facility] (CURRENT) USE OF ANTICOAGULANT 02/03/2020 FAITH TURK Ot Z79.4 [facility] (CURRENT) USE OF INSULIN 02/03/2020 FAITH TURK Ot Z85.3 PERSONAL HISTORY OF MALIGNANT NEOPLASM O 02/03/2020 FAITH TURK Ot Z86.718 PERSONAL HISTORY OF OTHER VENOUS THROMBO 02/03/2020 FAITH TURK Ot Z90.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 02/03/2020 FAITH TURK Ot Z92.21 PERSONAL HISTORY OF ANTINEOPLASTIC CHEMO 02/03/2020 JOSELUIS BORGES S COMMUNITY HEALTH DIRECTOR Ot C50.911 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 02/03/2020 JOSELUIS BORGES S COMMUNITY HEALTH DIRECTOR Ot 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 02/03/2020 DANY ESPINAL DO Ot J32.9 CHRONIC SINUSITIS, UNSPECIFIED 02/03/2020 INDIA MOULTON, ERVIN Lanier Ot C92.0 0 ACUTE MYELOBLASTIC LEUKEMIA, NOT HAVING 02/03/2020 INDIA MOULTON, ERVIN Lanier Ot N28.1 CYST OF KIDNEY, ACQUIRED 02/03/2020 JONY JOSELUIS S COMMUNITY HEALTH DIRECTOR Ot 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 02/03/2020 REDD BORGESCAITIE S COMMUNITY HEALTH DIRECTOR Ot R92.8 OTH ABN AND INCONCLUSIVE FINDINGS ON DX 02/03/2020 JOSELUIS BORGES S COMMUNITY HEALTH DIRECTOR Ot Z12.31 ENCNTR SCREEN MAMMOGRAM FOR MALIGNANT NE 02/03/2020 JOSELUIS BORGES S COMMUNITY HEALTH DIRECTOR Ot Z85.3 PERSONAL HISTORY OF MALIGNANT NEOPLASM O 02/03/2020 Ot J01.01 ACU TE RECURRENT MAXILLARY SINUSITIS 02/03/2020 REDD BORGESCAITIE S COMMUNITY HEALTH DIRECTOR Ot Z12.31 ENCNTR SCREEN MAMMOGRAM FOR MALIGNANT NE 02/03/2020 JOSELUIS BORGES S COMMUNITY HEALTH DIRECTOR Ot Z85.3 PERSONAL HISTORY OF MALIGNANT NEOPLASM O 02/03/2020 WILLARD PARR Ot G25.0 ESSENTIAL TREMOR 02/03/2020 WILLARD PARR Ot I48.0 PAROXYSMAL ATRIAL FIBRILLATION 02/03/2020 WILLARD PARR Ot R06.00 DYSPNEA, UNSPECIFIED 02/03/2020 WILLARD PARR Ot R07.9 CHEST PAIN, UNSPECIFIED 02/03/2020 INDIA MOULTON, ERVIN Lanier Ot N28.1 CYST OF KIDNEY, ACQUIRED 02/03/2020 IDNIA MOULTON, ERVIN Lanier Ot Z98.8 90 OTHER SPECIFIED POSTPROCEDURAL STATES 02/03/2020 FAITH TURK Ot Z12.31 ENCNTR SCREEN MAMMOGRAM FOR MALIGNANT NE 02/03/2020 FAITH TURK Ot D64.9 ANEMIA, UNSPECIFIED 02/03/2020 FAITH TURK Ot E11.9 TYPE 2 DIABETES MELLITUS WITHOUT COMPLIC 02/03/2020 FAITH TURK Ot E66.9 OBESITY, UNSPECIFIED 02/03/2020 FAITH TURK Ot E78.5 HYPERLIPIDEMIA, UNSPECIFIED 02/03/2020 FAITH TURK Ot G47.33 OBSTRUCTIVE SLEEP APNEA (ADULT) (PEDIATR 02/03/2020 FAITH TURK Ot I10 ESSENTIAL (PRIMARY) HYPERTENSION 02/03/2020 FAITH TURK Ot I27.20 PULMONARY HYPERTENSION, UNSPECIFIED 02/03/2020 FAITH TURK Ot Z08 ENCNTR FOR FOLLOW-UP EXAM AFTER TRTMT FO 02/03/2020 FAITH TURK Ot Z68.35 BODY MASS INDEX (BMI) 35.0-35.9, ADULT 02/03/2020 FAITH TURK Ot Z79.01 [facility] (CURRENT) USE OF ANTICOAGULANT 02/03/2020 FAITH TURK Ot Z79.4 [facility] (CURRENT) USE OF INSULIN 02/03/2020 FAITH TURK Ot Z79.899 OTHER ENVIRONMENTAL DIRECTOR (CURRENT) DRUG THERAPY 02/03/2020 FAITH TURK Ot Z85.3 PERSONAL HISTORY OF MALIGNANT NEOPLASM O 02/03/2020 FAITH TURK Ot Z86.718 PERSONAL HISTORY OF OTHER VENOUS THROMBO 02/03/2020 FAITH TURK Ot Z90.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 02/03/2020 FAITH TURK Ot Z92.21 PERSONAL HISTORY OF ANTINEOPLASTIC CHEMO 02/03/2020 AGATHA ESPINAL COMMUNITY HEALTH DIRECTOR Ot J01.01 ACUTE RECURRENT MAXILLARY SINUSITIS 02/03/2020 AGATHA ESPINAL COMMUNITY HEALTH DIRECTOR Ot M47.812 SPONDYLOSIS W/O MYELOPATHY OR RADICULOPA 02/03/2020 AGATHA ESPINAL Ot N30.11 INTERSTITIAL CYSTITIS (CHRONIC) WITH HEM 02/03/2020 AGATHA ESPINAL Ot M54.2 CERVICALGIA 02/03/2020 AGATHA ESPINAL Ot R10.2 PELVIC AND PERINEAL PAIN 02/10/2020 FAITH TURK Evy Ot Z12.31 ENCNTR SCREEN MAMMOGRAM FOR MALIGNANT NE 02/19/2020 SIS ZUÑIGA MD Ot E11.9 TYPE 2 DIABETES MELLITUS WITHOUT COMPLIC 02/19/2020 SIS ZUÑIGA MD Ot E78.00 PURE HYPERCHOLESTEROLEMIA, UNSPECIFIED 02/19/2020 SIS ZUÑIGA MD, Ot F31.9 BIPOLAR DISORDER, UNSPECIFIED 02/19/2020 SIS ZUÑIGA MD, Ot F41.9 ANXIETY DISORDER, UNSPECIFIED 02/19/2020 SIS ZUÑIGA MD Ot G47.30 SLEEP APNEA, UNSPECIFIED 02/19/2020 SIS ZUÑIGA MD Ot I10 ESSENTIAL (PRIMARY) HYPERTENSION 02/19/2020 SIS ZUÑIGA MD, Ot I25.10 ATHSCL HEART DISEASE OF [place] CORONARY 02/19/2020 SIS ZUÑIGA MD, Ot I25.2 OLD MYOCARDIAL INFARCTION 02/19/2020 SIS ZUÑIGA MD Ot I48.91 UNSPECIFIED ATRIAL FIBRILLATION 02/19/2020 SIS ZUÑIGA MD, Ot J44.9 CHRONIC OBSTRUCTIVE PULMONARY DISEASE, U 02/19/2020 SIS ZUÑIGA MD Ot K21.9 GASTRO-ESOPHAGEAL REFLUX DISEASE WITHOUT 02/19/2020 SIS ZUÑIGA MD Ot K59.09 OTHER CONSTIPATION 02/19/2020 SIS ZUÑIGA MD Ot N39.0 URINARY TRACT INFECTION, SITE NOT SPECIF 02/19/2020 ISS ZUÑIGA MD Ot R10.9 UNSPECIFIED ABDOMINAL PAIN 02/19/2020 SIS ZUÑIGA MD Ot Z79.01 ENVIRONMENTAL DIRECTOR (CURRENT) USE OF ANTICOAGULANT 02/19/2020 SIS ZUÑIGA MD Ot Z79.4 ENVIRONMENTAL DIRECTOR (CURRENT) USE OF INSULIN 02/19/2020 SIS ZUÑIGA MD Ot Z79.51 [facility] (CURRENT) USE OF INHALED STERO 02/19/2020 SIS ZUÑIGA MD, Ot Z80.51 FAMILY HISTORY OF MALIGNANT NEOPLASM OF 02/19/2020 SIS ZUÑIGA MD, Ot Z85.3 PERSONAL HISTORY OF MALIGNANT NEOPLASM O 02/19/2020 SIS ZUÑIGA MD, Ot Z86.711 PERSONAL HISTORY OF PULMONARY EMBOLISM 02/19/2020 SIS ZUÑIGA MD, Ot Z86.718 PERSONAL HISTORY OF OTHER VENOUS THROMBO 02/19/2020 ISS ZUÑIGA MD, Ot Z87.891 PERSONAL HISTORY OF NICOTINE DEPENDENCE 02/19/2020 SIS ZUÑIGA MD, Ot Z88.0 ALLERGY STATUS TO PENICILLIN 02/19/2020 SIS ZUÑIGA MD, Ot Z88.1 ALLERGY STATUS TO OTHER ANTIBIOTIC AGENT 02/19/2020 SIS ZUÑIGA MD, Ot Z88.5 ALLERGY STATUS TO NARCOTIC AGENT STATUS 02/19/2020 SIS ZUÑIGA MD, Ot Z88.8 ALLERGY STATUS TO OTH DRUG/MEDS/BIOL SUB 02/19/2020 SIS ZUÑIGA MD, Ot Z99.89 DEPENDENCE ON OTHER ENABLING MACHINES AN 03/01/2020 AGATHA ESPINAL COMMUNITY HEALTH DIRECTOR Ot R10.2 PELVIC AND PERINEAL PAIN 03/14/2020 AGATHA ESPINAL COMMUNITY HEALTH DIRECTOR Ot M54.2 CERVICALGIA 03/16/2020 AGATHA ESPINAL COMMUNITY HEALTH DIRECTOR Ot E11.40 TYPE 2 DIABETES MELLITUS WITH DIABETIC N 03/16/2020 AGATHA ESPINAL COMMUNITY HEALTH DIRECTOR Ot I89.0 LYMPHEDEMA, NOT ELSEWHERE CLASSIFIED 03/16/2020 AGATHA ESPINAL COMMUNITY HEALTH DIRECTOR Ot M54.2 CERVICALGIA 03/16/2020 AGATHA ESPINAL L COMMUNITY HEALTH DIRECTOR Ot R32 UNSPECIFIED URINARY INCONTINENCE 03/16/2020 AGATHA ESPINAL COMMUNITY HEALTH DIRECTOR Ot Z86.718 PERSONAL HISTORY OF OTHER VENOUS THROMBO 03/16/2020 AGATHA ESPINAL COMMUNITY HEALTH DIRECTOR Ot Z87.441 PERSONAL HISTORY OF NEPHROTIC SYNDROME 05/02/2020 FAITH TURK Ot D64.9 ANEMIA, UNSPECIFIED 05/02/2020 FAITH TURK Ot E11.9 TYPE 2 DIABETES MELLITUS WITHOUT COMPLIC 05/02/2020 FAITH TURK Ot E66.9 OBESITY, UNSPECIFIED 05/02/2020 FAITH TURK Ot E78.5 HYPERLIPIDEMIA, UNSPECIFIED 05/02/2020 FAITH TURK Ot G47.33 OBSTRUCTIVE SLEEP APNEA (ADULT) (PEDIATR 05/02/2020 FAITH TURK Ot I10 ESSENTIAL (PRIMARY) HYPERTENSION 05/02/2020 FAITH TURK Ot I27.20 PULMONARY HYPERTENSION, UNSPECIFIED 05/02/2020 FAITH TURK Ot Z08 ENCNTR FOR FOLLOW-UP EXAM AFTER TRTMT FO 05/02/2020 FAITH TURK Ot Z68.35 BODY MASS INDEX (BMI) 35.0-35.9, ADULT 05/02/2020 FAITH TURK Ot Z79.01 [facility] (CURRENT) USE OF ANTICOAGULANT 05/02/2020 FAITH TURK Ot Z79.4 [facility] (CURRENT) USE OF INSULIN 05/02/2020 FAITH TURK Ot Z79.899 OTHER ENVIRONMENTAL DIRECTOR (CURRENT) DRUG THERAPY 05/02/2020 FAITH TURK Ot Z85.3 PERSONAL HISTORY OF MALIGNANT NEOPLASM O 05/02/2020 FAITH TURK Ot Z86.718 PERSONAL HISTORY OF OTHER VENOUS THROMBO 05/02/2020 FAITH TURK Ot Z90.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 05/02/2020 FAITH TURK Ot Z92.21 PERSONAL HISTORY OF ANTINEOPLASTIC CHEMO 05/03/2020 FARZAD MOULTON, MEGHA Ku Ot 428.0 CONGESTIVE HEART FAILURE NOS 05/03/2020 INDIA MOULTON, ERVIN Lanier Ot 753.1 0 CYSTIC KIDNEY DISEASE, UNSPECIFIED 05/03/2020 FAITH TURK Ot V10.3 HX OF BREAST MALIGNANCY 05/03/2020 FAITH TURK Ot V12.51 HX- VENOUS THROMBOSIS EMBOLISM 05/03/2020 FAITH TURK Ot V12.55 PERSONAL HISTORY OF PULMONARY EMBOLISM 05/03/2020 FAITH TURK Ot V45.71 ACQUIRED ABSENCE OF BREAST AND NIPPLE 05/03/2020 FAITH TURK Ot V58.61 ANTICOAGULANTS,LT,CURRENT USE 05/03/2020 FAITH TURK Ot V58.69 OTH MED,LT,CURRENT USE 05/03/2020 FAITH TURK Ot V67.2 CHEMOTHERAPY FOLLOW-UP 05/03/2020 FAITH TURK N Ot 174.9 MALIGN NEOPL BREAST NOS 05/03/2020 MEGHA PANDA MD Ot 276.1 HYPOSMOLALITY 05/03/2020 MEGHA PANDA MD Ot 250.0 0 DIAB TJ WO COMPL, TYPE II OR UNSPEC TY 05/03/2020 MEGHA PANDA MD Ot 276.8 HYPOPOTASSEMIA 05/03/2020 MEGHA PANDA MD Ot 250.0 0 DIAB TJ WO COMPL, TYPE II OR UNSPEC TY 05/03/2020 MEGHA PANDA MD Ot V58.6 9 OTH MED,LT,CURRENT USE 05/03/2020 MEGHA PANDA MD Ot L03.9 0 CELLULITIS, UNSPECIFIED 05/03/2020 MEGHA PANDA MD Ot Z51.8 1 ENCOUNTER FOR THERAPEUTIC DRUG LEVEL MON 05/03/2020 MEGHA PANDA MD Ot Z79.2 [facility] (CURRENT) USE OF ANTIBIOTICS 05/03/2020 AGATHA ESPINAL Ot N39.0 URINARY TRACT INFECTION, SITE NOT SPECIF 05/03/2020 ESPINALDANY CASTRO DO Ot E03.9 HYPOTHYROIDISM, UNSPECIFIED 05/03/2020 ESPINALDANY CASTRO DO Ot I48.2 CHRONIC ATRIAL FIBRILLATION 05/03/2020 DANY ESPINAL DO Ot N39.0 URINARY TRACT INFECTION, SITE NOT SPECIF 05/03/2020 ESPINALDANY CASTRO DO Ot N39.0 URINARY TRACT INFECTION, SITE NOT SPECIF 05/03/2020 Ot 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 05/03/2020 Ot N28.1 CYST OF KIDNEY, ACQUIRED 05/03/2020 JOSELUIS BORGES Ot Z 08 ENCNTR FOR FOLLOW-UP EXAM AFTER TRTMT FO 05/03/2020 JOSELUIS BORGES Ot Z79.01 ENVIRONMENTAL DIRECTOR (CURRENT) USE OF ANTICOAGULANT 05/03/2020 JOSELUIS BORGES Ot Z85.3 PERSONAL HISTORY OF MALIGNANT NEOPLASM O 05/03/2020 JOSELUIS BORGES Ot Z86.718 PERSONAL HISTORY OF OTHER VENOUS THROMBO 05/03/2020 JOSELUIS BORGES Ot Z90.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 05/03/2020 JOSELUIS BORGES Ot Z12.31 ENCNTR SCREEN MAMMOGRAM FOR MALIGNANT NE 05/03/2020 DANY ESPINAL DO Ot F02.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 2 MIXED HYPERLIPIDEMIA 05/03/2020 LAKISHA MOULTON, SHEELA Short Ot G25. 0 ESSENTIAL TREMOR 05/03/2020 SHEELA BANUELOS MD Ot I10 ESSENTIAL (PRIMARY) HYPERTENSION 05/03/2020 SHEELA BANUELOS MD Ot I48. 0 PAROXYSMAL ATRIAL FIBRILLATION 05/03/2020 SHEELA BANUELOS MD Ot R07. 9 CHEST PAIN, UNSPECIFIED 05/03/2020 MARSHA DPM, FRANCK Stanton Ot M79.604 PAIN IN RIGHT LEG 05/03/2020 AGATHA ESPINAL COMMUNITY HEALTH DIRECTOR Ot N28.1 CYST OF KIDNEY, ACQUIRED 05/03/2020 AGATHA ESPINALP Ot R10.2 PELVIC AND PERINEAL PAIN 05/03/2020 IND[place] MOULTON, ERVIN Lanier Ot N28.1 CYST OF KIDNEY, ACQUIRED 05/03/2020 FAITH TURK Ot B02.29 OTHER POSTHERPETIC NERVOUS SYSTEM INVOLV 05/03/2020 FAITH TURK Ot E11.9 TYPE 2 DIABETES MELLITUS WITHOUT COMPLIC 05/03/2020 FAITH TURK Ot E78.5 HYPERLIPIDEMIA, UNSPECIFIED 05/03/2020 FAITH TURK Ot G47.33 OBSTRUCTIVE SLEEP APNEA (ADULT) (PEDIATR 05/03/2020 FAITH TURK Ot I10 ESSENTIAL (PRIMARY) HYPERTENSION 05/03/2020 FAITH TURK Ot I27.20 PULMONARY HYPERTENSION, UNSPECIFIED 05/03/2020 FAITH TURK Ot I48.2 CHRONIC ATRIAL FIBRILLATION 05/03/2020 FAITH TURK Ot Z08 ENCNTR FOR FOLLOW-UP EXAM AFTER TRTMT FO 05/03/2020 FAITH TURK Ot Z79.01 ENVIRONMENTAL DIRECTOR (CURRENT) USE OF ANTICOAGULANT 05/03/2020 FAITH TURK Ot Z79.4 [facility] (CURRENT) USE OF INSULIN 05/03/2020 ROSALEEFAITH Ot Z79.82 [facility] (CURRENT) USE OF ASPIRIN 05/03/2020 ROSALEEFAITH Ot Z79.899 OTHER ENVIRONMENTAL DIRECTOR (CURRENT) DRUG THERAPY 05/03/2020 ROSALEEFAITH Ot Z85.3 PERSONAL HISTORY OF MALIGNANT NEOPLASM O 05/03/2020 ROSALEE EDNASUJATA Evy Ot Z86.711 PERSONAL HISTORY OF PULMONARY EMBOLISM 05/03/2020 ROSALEEFAITH Ot Z86.718 PERSONAL HISTORY OF OTHER VENOUS THROMBO 05/03/2020 ROSALEEFAITH Ot Z90.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 05/03/2020 ROSALEEEDNASUJATA Evy Ot Z92.21 PERSONAL HISTORY OF ANTINEOPLASTIC CHEMO 05/03/2020 KO KENDRICK DO Ot M51.36 OTHER INTERVERTEBRAL DISC DEGENERATION, 05/03/2020 ROSALEEFAITH Ot R92.8 OTH ABN AND INCONCLUSIVE FINDINGS ON DX 05/03/2020 ROSALEEFAITH Ot E11.9 TYPE 2 DIABETES MELLITUS WITHOUT COMPLIC 05/03/2020 ROSALEEFAITH Ot E78.5 HYPERLIPIDEMIA, UNSPECIFIED 05/03/2020 ROSALEEFAITH Ot I10 ESSENTIAL (PRIMARY) HYPERTENSION 05/03/2020 ROSALEEFAITH Ot Z08 ENCNTR FOR FOLLOW-UP EXAM AFTER TRTMT FO 05/03/2020 ROSALEEFAITH Ot Z79.01 [facility] (CURRENT) USE OF ANTICOAGULANT 05/03/2020 ROSALEEFAITH Ot Z79.4 [facility] (CURRENT) USE OF INSULIN 05/03/2020 ROSALEEFAITH Ot Z85.3 PERSONAL HISTORY OF MALIGNANT NEOPLASM O 05/03/2020 ROSALEEFAITH Ot Z86.718 PERSONAL HISTORY OF OTHER VENOUS THROMBO 05/03/2020 ROSALEEFAITH Ot Z90.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 05/03/2020 ROSALEEFAITH Ot Z92.21 PERSONAL HISTORY OF ANTINEOPLASTIC CHEMO 05/03/2020 JOSELUIS BORGESP Ot C50.911 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 05/03/2020 JOSELUIS BORGES COMMUNITY HEALTH DIRECTOR Ot 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 05/03/2020 DANY ESPINAL DO Ot J32.9 CHRONIC SINUSITIS, UNSPECIFIED 05/03/2020 INDIA MOULTON, ERVIN Lanier Ot C92.0 0 ACUTE MYELOBLASTIC LEUKEMIA, NOT HAVING 05/03/2020 INDIA MOULTON, ERVIN Lanier Ot N28.1 CYST OF KIDNEY, ACQUIRED 05/03/2020 BORGESJOSELUIS Devi COMMUNITY HEALTH DIRECTOR Ot 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 05/03/2020 JOSELUIS BORGES COMMUNITY HEALTH DIRECTOR Ot R92.8 OTH ABN AND INCONCLUSIVE FINDINGS ON DX 05/03/2020 JOSELUIS BORGES COMMUNITY HEALTH DIRECTOR Ot Z12.31 ENCNTR SCREEN MAMMOGRAM FOR MALIGNANT NE 05/03/2020 JOSELUIS BORGES COMMUNITY HEALTH DIRECTOR Ot Z85.3 PERSONAL HISTORY OF MALIGNANT NEOPLASM O 05/03/2020 Ot J01.01 ACU TE RECURRENT MAXILLARY SINUSITIS 05/03/2020 BORGESJOSELUIS Devi COMMUNITY HEALTH DIRECTOR Ot Z12.31 ENCNTR SCREEN MAMMOGRAM FOR MALIGNANT NE 05/03/2020 JOSELUIS BORGES COMMUNITY HEALTH DIRECTOR Ot Z85.3 PERSONAL HISTORY OF MALIGNANT NEOPLASM O 05/03/2020 WILLARD PARR Ot G25.0 ESSENTIAL TREMOR 05/03/2020 WILLARD PARR Ot I48.0 PAROXYSMAL ATRIAL FIBRILLATION 05/03/2020 WILLARD PARR Ot R06.00 DYSPNEA, UNSPECIFIED 05/03/2020 WILLARD PARR Ot R07.9 CHEST PAIN, UNSPECIFIED 05/03/2020 INDIA MOULTON, ERVIN Lanier Ot N28.1 CYST OF KIDNEY, ACQUIRED 05/03/2020 ERVIN OSBORNE MD Ot Z98.8 90 OTHER SPECIFIED POSTPROCEDURAL STATES 05/03/2020 AGATHA ESPINAL COMMUNITY HEALTH DIRECTOR Ot J01.01 ACUTE RECURRENT MAXILLARY SINUSITIS 05/03/2020 AGATHA ESPINAL COMMUNITY HEALTH DIRECTOR Ot M47.812 SPONDYLOSIS W/O MYELOPATHY OR RADICULOPA 05/03/2020 AGATHA ESPINAL COMMUNITY HEALTH DIRECTOR Ot N30.11 INTERSTITIAL CYSTITIS (CHRONIC) WITH HEM 05/03/2020 AGATHA ESPINAL COMMUNITY HEALTH DIRECTOR Ot R10.2 PELVIC AND PERINEAL PAIN 05/06/2020 FAITH TURK Ot E78.2 MIXED HYPERLIPIDEMIA 05/06/2020 FAITH TURK Ot I10 ESSENTIAL (PRIMARY) HYPERTENSION 05/06/2020 FAITH TURK Ot Z85.3 PERSONAL HISTORY OF MALIGNANT NEOPLASM O 05/06/2020 FAITH TURK Ot E78.2 MIXED HYPERLIPIDEMIA 05/06/2020 FAITH TURK Ot I10 ESSENTIAL (PRIMARY) HYPERTENSION 05/06/2020 FAITH TURK Ot Z85.3 PERSONAL HISTORY OF MALIGNANT NEOPLASM O Procedures Code Description Performed By Per formed On 88.72 DX U LTRASOUND-HEART 12/30/2012 99.62 HEAR T COUNTERSHOCK NEC 12/30/2012 37.22 LEFT HEART CARDIAC CATH 11/14/2014 88.53 LT H EART ANGIOCARDIOGRAM 11/14/2014 88.56 MARY ANNE ROGELIO ARTERIOGR-2 CATH 11/14/2014 [id number] RE POSITION R UP FEMUR WITH INTRAMED FIX, 09/04/2015 [id number] RE MOVAL OF INT FIX FROM R UP FEMUR, EXTE 09/16/2015 [id number] RE POSITION RIGHT UPPER FEMUR WITH INT FI 09/16/[id number] NGUYEN OF L UP LEG SUBCU/FASCIA WITH JUDI 10/17/2015 Results Test Result Range Complete blood count (CBC) with automate d white blood cell (WBC) differential - 03/04/17 22:25 Blood leukocytes automated count (number/volume) 12.6 10*3/uL 4.3-11.0 Blood erythrocytes automated count (number/volume) 4.79 10*6/uL 4.35-5.85 Venous blood hemoglobin measurement (mass/volume) 14.2 g/dL 11.5-16.0 Blood hematocrit (volume fraction) 43 % 35-52 Automated erythrocyte mean corpuscular volume 90 [ foz_us] 80-99 Automated erythrocyte mean corpuscular h emoglobin (mass per erythrocyte) 30 pg 25-34 Automated erythrocyte mean corpuscular h emoglobin concentration measurement (mass/volume) 33 g/dL 32-36 Automated erythrocyte distribution width ratio 14. 3 % 10.0- 14.5 Automated blood platelet count (count/volume) 262 10*3/uL [...] 10*3 1.0-4.0 Blood monocytes automated count (number/volume) 0. 8 10*3 0.0-1.0 Automated eosinophil count 0.2 10*3/uL 0 .0-0.3 Automated blood basophil count (count/volume) 0.1 10*3/uL 0.0-0.1 PT panel in platelet poor plasma by coag ulation assay - 03/04/17 22:25 Prothrombin time (PT) in platelet poor plasma by coagu lation assay 14.8 s 12.2-14.7 INR in platelet poor plasma or blood by coagulation as say 1.2 0.8-1.4 Activated partial thromboplastin time (a PTT) in platelet poor plasma bycoagulation assay - 03/04/17 22:25 Activated partial thromboplastin time (a PTT) in platelet poor plasma bycoagulation assay 30 s 24-35 Comprehensive metabolic panel - 03/04/17 22:25 Serum or plasma sodium measurement (moles/volume) 144 mmol/L 135-145 Serum or plasma potassium measurement (moles/volume) 2.9 mmol/L 3.6-5.0 Serum or plasma chloride measurement (moles/volume) 102 mmol/L 98-107 Carbon dioxide 29 mmol/L 21-32 Serum or plasma anion gap determination (moles/volume) 13 mmol/L 5-14 Serum or plasma urea nitrogen measurement (mass/volume ) 12 mg/dL 7-18 Serum or plasma creatinine measurement (mass/volume) 0.84 mg/dL 0.60-1.30 Serum or plasma urea nitrogen/creatinine mass ratio 14 NRG Serum or plasma creatinine measurement w ith calculation of estimated glomerular filtration rate > NRG Serum or plasma glucose measurement (mass/volume) 117 mg/dL 70-105 Serum or plasma calcium measurement (mass/volume) 9.5 mg/dL 8.5-10.1 Serum or plasma total bilirubin measurement (mass/volu me) 0.4 mg/dL 0.1-1.0 Serum or plasma alkaline phosphatase maryann surement (enzymatic activity/volume) 65 U/L 40-136 Serum or plasma aspartate aminotransfera se measurement (enzymatic activity/volume) 60 U/L 5-34 Serum or plasma alanine aminotransferase measurement (enzymatic activity/volume) 20 U/L 0-55 Serum or plasma protein measurement (mass/volume) 7.3 g/dL 6.4-8.2 Serum or plasma albumin measurement (mass/volume) 3.3 g/dL 3.2-4.5 Magnesium - 03/04/17 22:25 Magnesium 2.0 mg/dL 1.8-2.4 Serum or plasma troponin i.cardiac measu rement (mass/volume) - 03/04/17 22:25 Serum or plasma troponin i.cardiac measurement (mass/v olume) < ng/mL <0.30 Myoglobin, serum - 03/04/17 22:25 Myoglobin, serum 30.2 ng/mL 10.0-92.0 Digoxin - 03/04/17 22:25 Digoxin < ng/mL 0.80-2.00 Serum or plasma C reactive protein measu rement (mass/volume) - 03/04/17 22:25 Serum or plasma C reactive protein measurement (mass/v olume) 0.53 mg/dL 0.00-0.50 Complete blood count (CBC) with automate d white blood cell (WBC) differential - 03/05/17 04:50 Blood leukocytes automated count (number/volume) 14.9 10*3/uL 4.3-11.0 Blood erythrocytes automated count (number/volume) 4.20 10*6/uL 4.35-5.85 Venous blood hemoglobin measurement (mass/volume) 12.6 g/dL 11.5-16.0 Blood hematocrit (volume fraction) 38 % 35-52 Automated erythrocyte mean corpuscular volume 91 [ foz_us] 80-99 Automated erythrocyte mean corpuscular h emoglobin (mass per erythrocyte) 30 pg 25-34 Automated erythrocyte mean corpuscular h emoglobin concentration measurement (mass/volume) 33 g/dL 32-36 Automated erythrocyte distribution width ratio 14. 2 % 10.0- 14.5 Automated blood platelet count (count/volume) 243 10*3/uL [...] 10*3 1.0-4.0 Blood monocytes automated count (number/volume) 0. 8 10*3 0.0-1.0 Automated eosinophil count 0.1 10*3/uL 0 .0-0.3 Automated blood basophil count (count/volume) 0.1 10*3/uL 0.0-0.1 Whole blood basic metabolic panel - 02/23 12/11 04:50 Serum or plasma sodium measurement (moles/volume) 142 mmol/L 135-145 Serum or plasma potassium measurement (moles/volume) 3.6 mmol/L 3.6-5.0 Serum or plasma chloride measurement (moles/volume) 106 mmol/L 98-107 Carbon dioxide 23 mmol/L 21-32 Serum or plasma anion gap determination (moles/volume) 13 mmol/L 5-14 Serum or plasma urea nitrogen measurement (mass/volume ) 11 mg/dL 7-18 Serum or plasma creatinine measurement (mass/volume) 0.73 mg/dL 0.60-1.30 Serum or plasma urea nitrogen/creatinine mass ratio 15 NRG Serum or plasma creatinine measurement w ith calculation of estimated glomerular filtration rate > NRG Serum or plasma glucose measurement (mass/volume) 173 mg/dL 70-105 Serum or plasma calcium measurement (mass/volume) 9.2 mg/dL 8.5-10.1 Serum or plasma troponin i.cardiac measu rement (mass/volume) - 03/05/17 04:50 Serum or plasma troponin i.cardiac measurement (mass/v olume) < ng/mL <0.30 Lipid 1996 panel - 03/05/17 04:50 Serum or plasma triglyceride measurement (mass/volume) 107 mg/dL <150 Serum or plasma cholesterol measurement (mass/volume) 165 mg/dL < 200 Serum or plasma cholesterol in HDL measurement (mass/v olume) 61 mg/dL 40-60 Cholesterol in LDL [mass/volume] in serum or plasma by direct assay 81 mg/dL 1-129 Serum or plasma cholesterol in VLDL measurement (mass/ volume) 21 mg/dL 5-40 Capillary blood glucose measurement by g lucometer (mass/volume) - 03/05/17 09:40 Capillary blood glucose measurement by glucometer (mas s/volume) 201 mg/dL 70-110 Methicillin resistant Staphylococcus aur eus (MRSA) screening culture - 03/06/17 10:15 MRSA SCREEN RESULT MRSA ISOLATED NRG Capillary blood glucose measurement by g lucometer (mass/volume) - 03/13/17 06:19 Capillary blood glucose measurement by glucometer (mas s/volume) 186 mg/dL 70-110 Capillary blood glucose measurement by g lucometer (mass/volume) - 05/31/17 07:42 Capillary blood glucose measurement by glucometer (mas s/volume) 174 mg/dL 70-110 Methicillin resistant Staphylococcus aur eus (MRSA) screening culture - 09/04/17 12:10 Methicillin resistant Staphylococcus aureus (MRSA) scr eening culture NEG NRG Capillary blood glucose measurement by g lucometer (mass/volume) - 09/04/17 12:16 Capillary blood glucose measurement by glucometer (mas s/volume) 134 mg/dL 70-110 Complete blood count (CBC) with automate d white blood cell (WBC) differential - 09/13/17 19:50 Blood leukocytes automated count (number/volume) 18.0 10*3/uL 4.3-11.0 Blood erythrocytes automated count (number/volume) 4.74 10*6/uL 4.35-5.85 Venous blood hemoglobin measurement (mass/volume) 14.0 g/dL 11.5-16.0 Blood hematocrit (volume fraction) 43 % 35-52 Automated erythrocyte mean corpuscular volume 90 [ foz_us] 80-99 Automated erythrocyte mean corpuscular h emoglobin (mass per erythrocyte) 30 pg 25-34 Automated erythrocyte mean corpuscular h emoglobin concentration measurement (mass/volume) 33 g/dL 32-36 Automated erythrocyte distribution width ratio 14. 6 % 10.0- 14.5 Automated blood platelet count (count/volume) 277 10*3/uL [...] 10*3 1.0-4.0 Blood monocytes automated count (number/volume) 1. 2 10*3 0.0-1.0 Automated eosinophil count 0.1 10*3/uL 0 .0-0.3 Automated blood basophil count (count/volume) 0.1 10*3/uL 0.0-0.1 Blood manual differential performed dete ction - 09/13/17 19:50 Blood monocytes/100 leukocytes 3 % NRG Manual blood segmented neutrophils/100 leukocytes 66 % NRG Blood band neutrophils/100 leukocytes 1 % NRG Manual blood lymphocytes/100 leukocytes 27 % NRG Manual eosinophils/100 leukocytes in nose 1 % NRG Manual blood basophils/100 leukocytes 1 % NRG Blood erythrocyte morphology finding identification NORMAL NRG PT panel in platelet poor plasma by coag ulation assay - 09/13/17 19:50 Prothrombin time (PT) in platelet poor plasma by coagu lation assay 13.8 s 12.2-14.7 INR in platelet poor plasma or blood by coagulation as say 1.1 0.8-1.4 Activated partial thromboplastin time (a PTT) in platelet poor plasma bycoagulation assay - 09/13/17 19:50 Activated partial thromboplastin time (a PTT) in platelet poor plasma bycoagulation assay 27 s 24-35 Comprehensive metabolic panel - 09/13/17 19:50 Serum or plasma sodium measurement (moles/volume) 142 mmol/L 135-145 Serum or plasma potassium measurement (moles/volume) 4.2 mmol/L 3.6-5.0 Serum or plasma chloride measurement (moles/volume) 106 mmol/L 98-107 Carbon dioxide 27 mmol/L 21-32 Serum or plasma anion gap determination (moles/volume) 9 mmol/L 5-14 Serum or plasma urea nitrogen measurement (mass/volume ) 25 mg/dL 7-18 Serum or plasma creatinine measurement (mass/volume) 0.79 mg/dL 0.60-1.30 Serum or plasma urea nitrogen/creatinine mass ratio 32 NRG Serum or plasma creatinine measurement w ith calculation of estimated glomerular filtration rate > NRG Serum or plasma glucose measurement (mass/volume) 119 mg/dL 70-105 Serum or plasma calcium measurement (mass/volume) 9.5 mg/dL 8.5-10.1 Serum or plasma total bilirubin measurement (mass/volu me) 0.6 mg/dL 0.1-1.0 Serum or plasma alkaline phosphatase maryann surement (enzymatic activity/volume) 64 U/L 40-136 Serum or plasma aspartate aminotransfera se measurement (enzymatic activity/volume) 136 U/L 5-34 Serum or plasma alanine aminotransferase measurement (enzymatic activity/volume) 59 U/L 0-55 Serum or plasma protein measurement (mass/volume) 7.7 g/dL 6.4-8.2 Serum or plasma albumin measurement (mass/volume) 3.5 g/dL 3.2-4.5 Magnesium - 09/13/17 19:50 Magnesium 2.2 mg/dL 1.8-2.4 Serum or plasma creatine kinase measurem ent (enzymatic activity/volume) - 09/13/17 19:50 Serum or plasma creatine kinase measurem ent (enzymatic activity/volume) 21 U/L 29-168 Serum or plasma creatine kinase MB measu rement (enzymatic activity/volume) - 09/13/17 19:50 Serum or plasma creatine kinase MB measu rement (enzymatic activity/volume) 0.8 ng/mL <6.6 Serum or plasma troponin i.cardiac measu rement (mass/volume) - 09/13/17 19:50 Serum or plasma troponin i.cardiac measurement (mass/v olume) < ng/mL <0.30 Serum or plasma amylase measurement (enz ymatic activity/volume) - 09/13/17 19:50 Serum or plasma amylase measurement (enzymatic activit y/volume) 60 U/L 25-125 Serum or plasma lithium measurement (mol es/volume) - 09/13/17 19:50 BNP level 131.2 pg/mL <100.0 Lipase - 09/13/17 19:50 Lipase 73 U/L 8-78 Digoxin - 09/13/17 19:50 Digoxin < ng/mL 0.80-2.00 Complete blood count (CBC) with automate d white blood cell (WBC) differential - 09/14/17 02:21 Blood leukocytes automated count (number/volume) 18.5 10*3/uL 4.3-11.0 Blood erythrocytes automated count (number/volume) 4.34 10*6/uL 4.35-5.85 Venous blood hemoglobin measurement (mass/volume) 12.9 g/dL 11.5-16.0 Blood hematocrit (volume fraction) 39 % 35-52 Automated erythrocyte mean corpuscular volume 90 [ foz_us] 80-99 Automated erythrocyte mean corpuscular h emoglobin (mass per erythrocyte) 30 pg 25-34 Automated erythrocyte mean corpuscular h emoglobin concentration measurement (mass/volume) 33 g/dL 32-36 Automated erythrocyte distribution width ratio 14. 3 % 10.0- 14.5 Automated blood platelet count (count/volume) 245 10*3/uL [...] 10*3 1.0-4.0 Blood monocytes automated count (number/volume) 1. 2 10*3 0.0-1.0 Automated eosinophil count 0.1 10*3/uL 0 .0-0.3 Automated blood basophil count (count/volume) 0.0 10*3/uL 0.0-0.1 Comprehensive metabolic panel - 09/14/17 02:21 Serum or plasma sodium measurement (moles/volume) 139 mmol/L 135-145 Serum or plasma potassium measurement (moles/volume) 4.1 mmol/L 3.6-5.0 Serum or plasma chloride measurement (moles/volume) 105 mmol/L 98-107 Carbon dioxide 25 mmol/L 21-32 Serum or plasma anion gap determination (moles/volume) 9 mmol/L 5-14 Serum or plasma urea nitrogen measurement (mass/volume ) 28 mg/dL 7-18 Serum or plasma creatinine measurement (mass/volume) 0.75 mg/dL 0.60-1.30 Serum or plasma urea nitrogen/creatinine mass ratio 37 NRG Serum or plasma creatinine measurement w ith calculation of estimated glomerular filtration rate > NRG Serum or plasma glucose measurement (mass/volume) 196 mg/dL 70-105 Serum or plasma calcium measurement (mass/volume) 9.3 mg/dL 8.5-10.1 Serum or plasma total bilirubin measurement (mass/volu me) 0.3 mg/dL 0.1-1.0 Serum or plasma alkaline phosphatase maryann surement (enzymatic activity/volume) 66 U/L 40-136 Serum or plasma aspartate aminotransfera se measurement (enzymatic activity/volume) 138 U/L 5-34 Serum or plasma alanine aminotransferase measurement (enzymatic activity/volume) 93 U/L 0-55 Serum or plasma protein measurement (mass/volume) 6.7 g/dL 6.4-8.2 Serum or plasma albumin measurement (mass/volume) 3.1 g/dL 3.2-4.5 Lipid 1996 panel - 09/14/17 02:21 Serum or plasma triglyceride measurement (mass/volume) 51 mg/dL <150 Serum or plasma cholesterol measurement (mass/volume) 142 mg/dL < 200 Serum or plasma cholesterol in HDL measurement (mass/v olume) 62 mg/dL 40-60 Cholesterol in LDL [mass/volume] in serum or plasma by direct assay 69 mg/dL 1-129 Serum or plasma cholesterol in VLDL measurement (mass/ volume) 10 mg/dL 5-40 Serum or plasma troponin i.cardiac measu rement (mass/volume) - 09/14/17 02:21 Serum or plasma troponin i.cardiac measurement (mass/v olume) < ng/mL <0.30 Myoglobin, serum - 09/14/17 02:21 Myoglobin, serum 32.9 ng/mL 10.0-92.0 Serum or plasma troponin i.cardiac measu rement (mass/volume) - 09/14/17 08:05 Serum or plasma troponin i.cardiac measurement (mass/v olume) < ng/mL <0.30 Capillary blood glucose measurement by g lucometer (mass/volume) - 09/14/17 11:46 Capillary blood glucose measurement by glucometer (mas s/volume) 312 mg/dL 70-110 Complete blood count (CBC) with automate d white blood cell (WBC) differential - 03/08/18 10:48 Blood leukocytes automated count (number/volume) 12.7 10*3/uL 4.3-11.0 Blood erythrocytes automated count (number/volume) 4.12 10*6/uL 4.35-5.85 Venous blood hemoglobin measurement (mass/volume) 12.5 g/dL 11.5-16.0 Blood hematocrit (volume fraction) 38 % 35-52 Automated erythrocyte mean corpuscular volume 93 [ foz_us] 80-99 Automated erythrocyte mean corpuscular h emoglobin (mass per erythrocyte) 30 pg 25-34 Automated erythrocyte mean corpuscular h emoglobin concentration measurement (mass/volume) 33 g/dL 32-36 Automated erythrocyte distribution width ratio 14. 5 % 10.0- 14.5 Automated blood platelet count (count/volume) 236 10*3/uL [...] 10*3 1.0-4.0 Blood monocytes automated count (number/volume) 0. 8 10*3 0.0-1.0 Automated eosinophil count 0.2 10*3/uL 0 .0-0.3 Automated blood basophil count (count/volume) 0.0 10*3/uL 0.0-0.1 Complete blood count (CBC) with automate d white blood cell (WBC) differential - 03/11/18 10:17 Blood leukocytes automated count (number/volume) 13.9 10*3/uL 4.3-11.0 Blood erythrocytes automated count (number/volume) 4.14 10*6/uL 4.35-5.85 Venous blood hemoglobin measurement (mass/volume) 12.7 g/dL 11.5-16.0 Blood hematocrit (volume fraction) 39 % 35-52 Automated erythrocyte mean corpuscular volume 94 [ foz_us] 80-99 Automated erythrocyte mean corpuscular h emoglobin (mass per erythrocyte) 31 pg 25-34 Automated erythrocyte mean corpuscular h emoglobin concentration measurement (mass/volume) 33 g/dL 32-36 Automated erythrocyte distribution width ratio 14. 8 % 10.0- 14.5 Automated blood platelet count (count/volume) 252 10*3/uL [...] 10*3 1.0-4.0 Blood monocytes automated count (number/volume) 1. 0 10*3 0.0-1.0 Automated eosinophil count 0.3 10*3/uL 0 .0-0.3 Automated blood basophil count (count/volume) 0.0 10*3/uL 0.0-0.1 PT panel in platelet poor plasma by coag ulation assay - 03/11/18 10:17 Prothrombin time (PT) in platelet poor plasma by coagu lation assay 18.7 s 12.2-14.7 INR in platelet poor plasma or blood by coagulation as say 1.6 0.8-1.4 Activated partial thromboplastin time (a PTT) in platelet poor plasma bycoagulation assay - 03/11/18 10:17 Activated partial thromboplastin time (a PTT) in platelet poor plasma bycoagulation assay 35 s 24-35 Comprehensive metabolic panel - 03/11/18 10:17 Serum or plasma sodium measurement (moles/volume) 141 mmol/L 135-145 Serum or plasma potassium measurement (moles/volume) 4.0 mmol/L 3.6-5.0 Serum or plasma chloride measurement (moles/volume) 103 mmol/L 98-107 Carbon dioxide 29 mmol/L 21-32 Serum or plasma anion gap determination (moles/volume) 9 mmol/L 5-14 Serum or plasma urea nitrogen measurement (mass/volume ) 13 mg/dL 7-18 Serum or plasma creatinine measurement (mass/volume) 0.77 mg/dL 0.60-1.30 Serum or plasma urea nitrogen/creatinine mass ratio 17 NRG Serum or plasma creatinine measurement w ith calculation of estimated glomerular filtration rate > NRG Serum or plasma glucose measurement (mass/volume) 120 mg/dL 70-105 Serum or plasma calcium measurement (mass/volume) 9.3 mg/dL 8.5-10.1 Serum or plasma total bilirubin measurement (mass/volu me) 0.5 mg/dL 0.1-1.0 Serum or plasma alkaline phosphatase maryann surement (enzymatic activity/volume) 51 U/L 40-136 Serum or plasma aspartate aminotransfera se measurement (enzymatic activity/volume) 12 U/L 5-34 Serum or plasma alanine aminotransferase measurement (enzymatic activity/volume) 10 U/L 0-55 Serum or plasma protein measurement (mass/volume) 7.3 g/dL 6.4-8.2 Serum or plasma albumin measurement (mass/volume) 3.5 g/dL 3.2-4.5 Magnesium - 03/11/18 10:17 Magnesium 1.7 mg/dL 1.8-2.4 Serum or plasma troponin i.cardiac measu rement (mass/volume) - 03/11/18 10:17 Serum or plasma troponin i.cardiac measurement (mass/v olume) < ng/mL <0.30 Myoglobin, serum - 03/11/18 10:17 Myoglobin, serum 32.3 ng/mL 10.0-92.0 Lipase - 03/11/18 10:17 Lipase 9 U/L 8-78 Serum or plasma C reactive protein measu rement (mass/volume) - 03/11/18 10:17 Serum or plasma C reactive protein measurement (mass/v olume) 1.77 mg/dL 0.00-0.50 Serum or plasma lithium measurement (mol es/volume) - 03/11/18 10:17 BNP level 259.8 pg/mL <100.0 Digoxin - 03/11/18 10:17 Digoxin 0.39 ng/mL 0.80-2.00 Complete urinalysis with reflex to cultu re - 03/11/18 12:15 Urine color determination YELLOW NRG Urine clarity determination CLEAR NR G Urine pH measurement by test strip 5 5-9 Specific gravity of urine by test strip 1.020 1.016-1.022 Urine protein assay by test strip, semi-quantitative 3+ NEGATIVE Urine glucose detection by automated test strip NE GATIVE NEGATIVE Erythrocytes detection in urine sediment by light micr oscopy NEGATIVE NEGATIVE Urine ketones detection by automated test strip NE GATIVE NEGATIVE Urine nitrite detection by test strip NEGATIVE NEGATIVE Urine total bilirubin detection by test strip NEGA TIVE NEGATIVE Urine urobilinogen measurement by automated test strip (mass/volume) NORMAL NORMAL Urine leukocyte esterase detection by dipstick NEG ATIVE NEGATIVE Automated urine sediment erythrocyte cou nt by microscopy (number/high power field) NONE NRG Automated urine sediment leukocyte count by microscopy (number/high power field) NONE NRG Bacteria detection in urine sediment by light microsco py NEGATIVE NRG Squamous epithelial cells detection in u rine sediment by light microscopy 0-2 NRG Crystals detection in urine sediment by light microsco py NONE NRG Casts detection in urine sediment by light microscopy PRESENT NRG Mucus detection in urine sediment by light microscopy NEGATIVE NRG Complete urinalysis with reflex to culture NO NRG Hyaline casts detection in urine sediment by light ac roscopy 5-10 NRG Methicillin resistant Staphylococcus aur eus (MRSA) screening culture - 03/14/18 07:12 Methicillin resistant Staphylococcus aureus (MRSA) scr eening culture NEG NRG Complete blood count (CBC) with automate d white blood cell (WBC) differential - 03/14/18 07:20 Blood leukocytes automated count (number/volume) 12.3 10*3/uL 4.3-11.0 Blood erythrocytes automated count (number/volume) 4.07 10*6/uL 4.35-5.85 Venous blood hemoglobin measurement (mass/volume) 12.2 g/dL 11.5-16.0 Blood hematocrit (volume fraction) 38 % 35-52 Automated erythrocyte mean corpuscular volume 94 [ foz_us] 80-99 Automated erythrocyte mean corpuscular h emoglobin (mass per erythrocyte) 30 pg 25-34 Automated erythrocyte mean corpuscular h emoglobin concentration measurement (mass/volume) 32 g/dL 32-36 Automated erythrocyte distribution width ratio 14. 9 % 10.0- 14.5 Automated blood platelet count (count/volume) 262 10*3/uL [...] 10*3 1.0-4.0 Blood monocytes automated count (number/volume) 0. 7 10*3 0.0-1.0 Automated eosinophil count 0.2 10*3/uL 0 .0-0.3 Automated blood basophil count (count/volume) 0.0 10*3/uL 0.0-0.1 Whole blood basic metabolic panel - 02/24 07:20 Serum or plasma sodium measurement (moles/volume) 142 mmol/L 135-145 Serum or plasma potassium measurement (moles/volume) 4.8 mmol/L 3.6-5.0 Serum or plasma chloride measurement (moles/volume) 102 mmol/L 98-107 Carbon dioxide 27 mmol/L 21-32 Serum or plasma anion gap determination (moles/volume) 13 mmol/L 5-14 Serum or plasma urea nitrogen measurement (mass/volume ) 19 mg/dL 7-18 Serum or plasma creatinine measurement (mass/volume) 1.03 mg/dL 0.60-1.30 Serum or plasma urea nitrogen/creatinine mass ratio 18 NRG Serum or plasma creatinine measurement w ith calculation of estimated glomerular filtration rate 53 NRG Serum or plasma glucose measurement (mass/volume) 227 mg/dL 70-105 Serum or plasma calcium measurement (mass/volume) 9.8 mg/dL 8.5-10.1 Capillary blood glucose measurement by g lucometer (mass/volume) - 03/14/18 07:37 Capillary blood glucose measurement by glucometer (mas s/volume) 245 mg/dL 70-110 Complete blood count (CBC) with automate d white blood cell (WBC) differential - 03/16/18 21:10 Blood leukocytes automated count (number/volume) 15.2 10*3/uL 4.3-11.0 Blood erythrocytes automated count (number/volume) 3.93 10*6/uL 4.35-5.85 Venous blood hemoglobin measurement (mass/volume) 11.9 g/dL 11.5-16.0 Blood hematocrit (volume fraction) 37 % 35-52 Automated erythrocyte mean corpuscular volume 93 [ foz_us] 80-99 Automated erythrocyte mean corpuscular h emoglobin (mass per erythrocyte) 30 pg 25-34 Automated erythrocyte mean corpuscular h emoglobin concentration measurement (mass/volume) 33 g/dL 32-36 Automated erythrocyte distribution width ratio 14. 6 % 10.0- 14.5 Automated blood platelet count (count/volume) 254 10*3/uL [...] 10*3 1.0-4.0 Blood monocytes automated count (number/volume) 1. 2 10*3 0.0-1.0 Automated eosinophil count 0.2 10*3/uL 0 .0-0.3 Automated blood basophil count (count/volume) 0.0 10*3/uL 0.0-0.1 PT panel in platelet poor plasma by coag ulation assay - 03/16/18 21:10 Prothrombin time (PT) in platelet poor plasma by coagu lation assay 14.0 s 12.2-14.7 INR in platelet poor plasma or blood by coagulation as say 1.1 0.8-1.4 Activated partial thromboplastin time (a PTT) in platelet poor plasma bycoagulation assay - 03/16/18 21:10 Activated partial thromboplastin time (a PTT) in platelet poor plasma bycoagulation assay 29 s 24-35 Comprehensive metabolic panel - 03/16/18 21:10 Serum or plasma sodium measurement (moles/volume) 141 mmol/L 135-145 Serum or plasma potassium measurement (moles/volume) 3.3 mmol/L 3.6-5.0 Serum or plasma chloride measurement (moles/volume) 101 mmol/L 98-107 Carbon dioxide 27 mmol/L 21-32 Serum or plasma anion gap determination (moles/volume) 13 mmol/L 5-14 Serum or plasma urea nitrogen measurement (mass/volume ) 18 mg/dL 7-18 Serum or plasma creatinine measurement (mass/volume) 1.01 mg/dL 0.60-1.30 Serum or plasma urea nitrogen/creatinine mass ratio 18 NRG Serum or plasma creatinine measurement w ith calculation of estimated glomerular filtration rate 54 NRG Serum or plasma glucose measurement (mass/volume) 150 mg/dL 70-105 Serum or plasma calcium measurement (mass/volume) 9.2 mg/dL 8.5-10.1 Serum or plasma total bilirubin measurement (mass/volu me) 0.4 mg/dL 0.1-1.0 Serum or plasma alkaline phosphatase maryann surement (enzymatic activity/volume) 49 U/L 40-136 Serum or plasma aspartate aminotransfera se measurement (enzymatic activity/volume) 13 U/L 5-34 Serum or plasma alanine aminotransferase measurement (enzymatic activity/volume) 11 U/L 0-55 Serum or plasma protein measurement (mass/volume) 6.9 g/dL 6.4-8.2 Serum or plasma albumin measurement (mass/volume) 3.4 g/dL 3.2-4.5 Magnesium - 03/16/18 21:10 Magnesium 1.7 mg/dL 1.8-2.4 Serum or plasma lithium measurement (mol es/volume) - 03/16/18 21:10 BNP level 323.1 pg/mL <100.0 Serum or plasma troponin i.cardiac measu rement (mass/volume) - 03/16/18 21:10 Serum or plasma troponin i.cardiac measurement (mass/v olume) < ng/mL <0.30 Complete blood count (CBC) with automate d white blood cell (WBC) differential - 04/21/18 08:50 Blood leukocytes automated count (number/volume) 13.9 10*3/uL 4.3-11.0 Blood erythrocytes automated count (number/volume) 3.81 10*6/uL 4.35-5.85 Venous blood hemoglobin measurement (mass/volume) 11.4 g/dL 11.5-16.0 Blood hematocrit (volume fraction) 36 % 35-52 Automated erythrocyte mean corpuscular volume 93 [ foz_us] 80-99 Automated erythrocyte mean corpuscular h emoglobin (mass per erythrocyte) 30 pg 25-34 Automated erythrocyte mean corpuscular h emoglobin concentration measurement (mass/volume) 32 g/dL 32-36 Automated erythrocyte distribution width ratio 15. 1 % 10.0- 14.5 Automated blood platelet count (count/volume) 241 10*3/uL [...] 10*3 1.0-4.0 Blood monocytes automated count (number/volume) 0. 7 10*3 0.0-1.0 Automated eosinophil count 0.2 10*3/uL 0 .0-0.3 Automated blood basophil count (count/volume) 0.0 10*3/uL 0.0-0.1 PT panel in platelet poor plasma by coag ulation assay - 04/21/18 08:50 Prothrombin time (PT) in platelet poor plasma by coagu lation assay 19.5 s 12.2-14.7 INR in platelet poor plasma or blood by coagulation as say 1.6 0.8-1.4 Activated partial thromboplastin time (a PTT) in platelet poor plasma bycoagulation assay - 04/21/18 08:50 Activated partial thromboplastin time (a PTT) in platelet poor plasma bycoagulation assay 33 s 24-35 Comprehensive metabolic panel - 04/21/18 08:50 Serum or plasma sodium measurement (moles/volume) 139 mmol/L 135-145 Serum or plasma potassium measurement (moles/volume) 4.2 mmol/L 3.6-5.0 Serum or plasma chloride measurement (moles/volume) 103 mmol/L 98-107 Carbon dioxide 24 mmol/L 21-32 Serum or plasma anion gap determination (moles/volume) 12 mmol/L 5-14 Serum or plasma urea nitrogen measurement (mass/volume ) 14 mg/dL 7-18 Serum or plasma creatinine measurement (mass/volume) 0.81 mg/dL 0.60-1.30 Serum or plasma urea nitrogen/creatinine mass ratio 17 NRG Serum or plasma creatinine measurement w ith calculation of estimated glomerular filtration rate > NRG Serum or plasma glucose measurement (mass/volume) 283 mg/dL 70-105 Serum or plasma calcium measurement (mass/volume) 9.5 mg/dL 8.5-10.1 Serum or plasma total bilirubin measurement (mass/volu me) 0.5 mg/dL 0.1-1.0 Serum or plasma alkaline phosphatase maryann surement (enzymatic activity/volume) 54 U/L 40-136 Serum or plasma aspartate aminotransfera se measurement (enzymatic activity/volume) 17 U/L 5-34 Serum or plasma alanine aminotransferase measurement (enzymatic activity/volume) 12 U/L 0-55 Serum or plasma protein measurement (mass/volume) 7.3 g/dL 6.4-8.2 Serum or plasma albumin measurement (mass/volume) 3.5 g/dL 3.2-4.5 Magnesium - 04/21/18 08:50 Magnesium 2.0 mg/dL 1.8-2.4 Serum or plasma troponin i.cardiac measu rement (mass/volume) - 04/21/18 08:50 Serum or plasma troponin i.cardiac measurement (mass/v olume) < ng/mL <0.30 Serum or plasma lithium measurement (mol es/volume) - 04/21/18 08:50 BNP level 417.9 pg/mL <100.0 Myoglobin, serum - 04/21/18 08:50 Myoglobin, serum 37.5 ng/mL 10.0-92.0 Lipase - 04/21/18 08:50 Lipase 11 U/L 8-78 Complete urinalysis with reflex to cultu re - 04/21/18 08:58 Urine color determination YELLOW NRG Urine clarity determination CLEAR NR G Urine pH measurement by test strip 8 5-9 Specific gravity of urine by test strip 1.010 1.016-1.022 Urine protein assay by test strip, semi-quantitative 3+ NEGATIVE Urine glucose detection by automated test strip 2+ NEGATIVE Erythrocytes detection in urine sediment by light micr oscopy NEGATIVE NEGATIVE Urine ketones detection by automated test strip NE GATIVE NEGATIVE Urine nitrite detection by test strip NEGATIVE NEGATIVE Urine total bilirubin detection by test strip NEGA TIVE NEGATIVE Urine urobilinogen measurement by automated test strip (mass/volume) NORMAL NORMAL Urine leukocyte esterase detection by dipstick NEG ATIVE NEGATIVE Automated urine sediment erythrocyte cou nt by microscopy (number/high power field) NONE NRG Automated urine sediment leukocyte count by microscopy (number/high power field) NONE NRG Bacteria detection in urine sediment by light microsco py NEGATIVE NRG Squamous epithelial cells detection in u rine sediment by light microscopy NONE NRG Crystals detection in urine sediment by light microsco py NONE NRG Casts detection in urine sediment by light microscopy NONE NRG Mucus detection in urine sediment by light microscopy NEGATIVE NRG Complete urinalysis with reflex to culture NO NRG Capillary blood glucose measurement by g lucometer (mass/volume) - 04/21/18 15:49 Capillary blood glucose measurement by glucometer (mas s/volume) 165 mg/dL 70-110 Capillary blood glucose measurement by g lucometer (mass/volume) - 04/21/18 21:17 Capillary blood glucose measurement by glucometer (mas s/volume) 222 mg/dL 70-110 Capillary blood glucose measurement by g lucometer (mass/volume) - 04/22/18 05:09 Capillary blood glucose measurement by glucometer (mas s/volume) 191 mg/dL 70-110 Complete blood count (CBC) with automate d white blood cell (WBC) differential - 04/22/18 05:10 Blood leukocytes automated count (number/volume) 12.9 10*3/uL 4.3-11.0 Blood erythrocytes automated count (number/volume) 3.77 10*6/uL 4.35-5.85 Venous blood hemoglobin measurement (mass/volume) 11.4 g/dL 11.5-16.0 Blood hematocrit (volume fraction) 35 % 35-52 Automated erythrocyte mean corpuscular volume 93 [ foz_us] 80-99 Automated erythrocyte mean corpuscular h emoglobin (mass per erythrocyte) 30 pg 25-34 Automated erythrocyte mean corpuscular h emoglobin concentration measurement (mass/volume) 32 g/dL 32-36 Automated erythrocyte distribution width ratio 15. 1 % 10.0- 14.5 Automated blood platelet count (count/volume) 223 10*3/uL [...] 10*3 1.0-4.0 Blood monocytes automated count (number/volume) 0. 7 10*3 0.0-1.0 Automated eosinophil count 0.3 10*3/uL 0 .0-0.3 Automated blood basophil count (count/volume) 0.0 10*3/uL 0.0-0.1 Whole blood basic metabolic panel - 03/26 08/12 05:10 Serum or plasma sodium measurement (moles/volume) 139 mmol/L 135-145 Serum or plasma potassium measurement (moles/volume) 4.4 mmol/L 3.6-5.0 Serum or plasma chloride measurement (moles/volume) 105 mmol/L 98-107 Carbon dioxide 23 mmol/L 21-32 Serum or plasma anion gap determination (moles/volume) 11 mmol/L 5-14 Serum or plasma urea nitrogen measurement (mass/volume ) 12 mg/dL 7-18 Serum or plasma creatinine measurement (mass/volume) 0.75 mg/dL 0.60-1.30 Serum or plasma urea nitrogen/creatinine mass ratio 16 NRG Serum or plasma creatinine measurement w ith calculation of estimated glomerular filtration rate > NRG Serum or plasma glucose measurement (mass/volume) 189 mg/dL 70-105 Serum or plasma calcium measurement (mass/volume) 9.0 mg/dL 8.5-10.1 Lipid 1996 panel - 04/22/18 05:10 Serum or plasma triglyceride measurement (mass/volume) 97 mg/dL <150 Serum or plasma cholesterol measurement (mass/volume) 153 mg/dL < 200 Serum or plasma cholesterol in HDL measurement (mass/v olume) 53 mg/dL 40-60 Cholesterol in LDL [mass/volume] in serum or plasma by direct assay 86 mg/dL 1-129 Serum or plasma cholesterol in VLDL measurement (mass/ volume) 19 mg/dL 5-40 Capillary blood glucose measurement by g lucometer (mass/volume) - 04/22/18 11:12 Capillary blood glucose measurement by glucometer (mas s/volume) 237 mg/dL 70-110 Complete blood count (CBC) with automate d white blood cell (WBC) differential - 05/23/18 13:52 Blood leukocytes automated count (number/volume) 13.4 10*3/uL 4.3-11.0 Blood erythrocytes automated count (number/volume) 3.80 10*6/uL 4.35-5.85 Venous blood hemoglobin measurement (mass/volume) 11.4 g/dL 11.5-16.0 Blood hematocrit (volume fraction) 36 % 35-52 Automated erythrocyte mean corpuscular volume 94 [ foz_us] 80-99 Automated erythrocyte mean corpuscular h emoglobin (mass per erythrocyte) 30 pg 25-34 Automated erythrocyte mean corpuscular h emoglobin concentration measurement (mass/volume) 32 g/dL 32-36 Automated erythrocyte distribution width ratio 16. 3 % 10.0- 14.5 Automated blood platelet count (count/volume) 285 10*3/uL 130-400 Automated blood platelet mean volume measurement 11.7 [foz_us] 7.4-10.4 Automated blood neutrophils/100 leukocytes 76 % 42-75 Automated blood lymphocytes/100 leukocytes 14 % 12-44 Blood monocytes/100 leukocytes 7 % 0-12 Automated blood eosinophils/100 leukocytes 3 % 0-10 Automated blood basophils/100 leukocytes 0 % 0-10 Blood neutrophils automated count (number/volume) 10.2 10*3 1.8-7.8 Blood lymphocytes automated count (number/volume) 1.9 10*3 1.0-4.0 Blood monocytes automated count (number/volume) 0. 9 10*3 0.0-1.0 Automated eosinophil count 0.3 10*3/uL 0 .0-0.3 Automated blood basophil count (count/volume) 0.0 10*3/uL 0.0-0.1 Comprehensive metabolic panel - 05/23/18 13:52 Serum or plasma sodium measurement (moles/volume) 143 mmol/L 135-145 Serum or plasma potassium measurement (moles/volume) 4.1 mmol/L 3.6-5.0 Serum or plasma chloride measurement (moles/volume) 105 mmol/L 98-107 Carbon dioxide 26 mmol/L 21-32 Serum or plasma anion gap determination (moles/volume) 12 mmol/L 5-14 Serum or plasma urea nitrogen measurement (mass/volume ) 30 mg/dL 7-18 Serum or plasma creatinine measurement (mass/volume) 0.96 mg/dL 0.60-1.30 Serum or plasma urea nitrogen/creatinine mass ratio 31 NRG Serum or plasma creatinine measurement w ith calculation of estimated glomerular filtration rate 57 NRG Serum or plasma glucose measurement (mass/volume) 69 mg/dL 70-105 Serum or plasma calcium measurement (mass/volume) 9.4 mg/dL 8.5-10.1 Serum or plasma total bilirubin measurement (mass/volu me) 0.3 mg/dL 0.1-1.0 Serum or plasma alkaline phosphatase maryann surement (enzymatic activity/volume) 51 U/L 40-136 Serum or plasma aspartate aminotransfera se measurement (enzymatic activity/volume) 19 U/L 5-34 Serum or plasma alanine aminotransferase measurement (enzymatic activity/volume) 9 U/L 0-55 Serum or plasma protein measurement (mass/volume) 7.6 g/dL 6.4-8.2 Serum or plasma albumin measurement (mass/volume) 3.5 g/dL 3.2-4.5 Capillary blood glucose measurement by g lucometer (mass/volume) - 05/23/18 13:55 Capillary blood glucose measurement by glucometer (mas s/volume) 73 mg/dL 70-110 Capillary blood glucose measurement by g lucometer (mass/volume) - 05/23/18 14:41 Capillary blood glucose measurement by glucometer (mas s/volume) 93 mg/dL 70-110 Complete urinalysis with reflex to cultu re - 05/23/18 14:58 Urine color determination YELLOW NRG Urine clarity determination CLEAR NR G Urine pH measurement by test strip 5 5-9 Specific gravity of urine by test strip 1.010 1.016-1.022 Urine protein assay by test strip, semi-quantitative 3+ NEGATIVE Urine glucose detection by automated test strip NE GATIVE NEGATIVE Erythrocytes detection in urine sediment by light micr oscopy 1+ NEGATIVE Urine ketones detection by automated test strip NE GATIVE NEGATIVE Urine nitrite detection by test strip NEGATIVE NEGATIVE Urine total bilirubin detection by test strip NEGA TIVE NEGATIVE Urine urobilinogen measurement by automated test strip (mass/volume) NORMAL NORMAL Urine leukocyte esterase detection by dipstick 2+ NEGATIVE Automated urine sediment erythrocyte cou nt by microscopy (number/high power field) [HPF] NRG Automated urine sediment leukocyte count by microscopy (number/high power field) [HPF] NRG Bacteria detection in urine sediment by light microsco py FEW NRG Squamous epithelial cells detection in u rine sediment by light microscopy 0-2 NRG Crystals detection in urine sediment by light microsco py NONE NRG Casts detection in urine sediment by light microscopy PRESENT NRG Mucus detection in urine sediment by light microscopy NEGATIVE NRG Complete urinalysis with reflex to culture NO NRG Hyaline casts detection in urine sediment by light ac roscopy 0-2 NRG Capillary blood glucose measurement by g lucometer (mass/volume) - 06/19/18 16:07 Capillary blood glucose measurement by glucometer (mas s/volume) 88 mg/dL 70-110 Complete blood count (CBC) with automate d white blood cell (WBC) differential - 06/19/18 16:55 Blood leukocytes automated count (number/volume) 11.7 10*3/uL 4.3-11.0 Blood erythrocytes automated count (number/volume) 3.69 10*6/uL 4.35-5.85 Venous blood hemoglobin measurement (mass/volume) 11.2 g/dL 11.5-16.0 Blood hematocrit (volume fraction) 35 % 35-52 Automated erythrocyte mean corpuscular volume 94 [ foz_us] 80-99 Automated erythrocyte mean corpuscular h emoglobin (mass per erythrocyte) 30 pg 25-34 Automated erythrocyte mean corpuscular h emoglobin concentration measurement (mass/volume) 32 g/dL 32-36 Automated erythrocyte distribution width ratio 15. 8 % 10.0- 14.5 Automated blood platelet count (count/volume) 212 10*3/uL 130-400 Automated blood platelet mean volume measurement 12.1 [foz_us] 7.4-10.4 Automated blood neutrophils/100 leukocytes 69 % 42-75 Automated blood lymphocytes/100 leukocytes 18 % 12-44 Blood monocytes/100 leukocytes 9 % 0-12 Automated blood eosinophils/100 leukocytes 4 % 0-10 Automated blood basophils/100 leukocytes 0 % 0-10 Blood neutrophils automated count (number/volume) 8.1 10*3 1.8-7.8 Blood lymphocytes automated count (number/volume) 2.1 10*3 1.0-4.0 Blood monocytes automated count (number/volume) 1. 0 10*3 0.0-1.0 Automated eosinophil count 0.4 10*3/uL 0 .0-0.3 Automated blood basophil count (count/volume) 0.1 10*3/uL 0.0-0.1 Comprehensive metabolic panel - 06/19/18 16:55 Serum or plasma sodium measurement (moles/volume) 141 mmol/L 135-145 Serum or plasma potassium measurement (moles/volume) 3.0 mmol/L 3.6-5.0 Serum or plasma chloride measurement (moles/volume) 99 mmol/L 98-107 Carbon dioxide 29 mmol/L 21-32 Serum or plasma anion gap determination (moles/volume) 13 mmol/L 5-14 Serum or plasma urea nitrogen measurement (mass/volume ) 22 mg/dL 7-18 Serum or plasma creatinine measurement (mass/volume) 1.09 mg/dL 0.60-1.30 Serum or plasma urea nitrogen/creatinine mass ratio 20 NRG Serum or plasma creatinine measurement w ith calculation of estimated glomerular filtration rate 49 NRG Serum or plasma glucose measurement (mass/volume) 109 mg/dL 70-105 Serum or plasma calcium measurement (mass/volume) 9.5 mg/dL 8.5-10.1 Serum or plasma total bilirubin measurement (mass/volu me) 0.3 mg/dL 0.1-1.0 Serum or plasma alkaline phosphatase maryann surement (enzymatic activity/volume) 47 U/L 40-136 Serum or plasma aspartate aminotransfera se measurement (enzymatic activity/volume) 16 U/L 5-34 Serum or plasma alanine aminotransferase measurement (enzymatic activity/volume) 9 U/L 0-55 Serum or plasma protein measurement (mass/volume) 7.5 g/dL 6.4-8.2 Serum or plasma albumin measurement (mass/volume) 3.6 g/dL 3.2-4.5 Complete urinalysis with reflex to cultu re - 06/19/18 17:35 Urine color determination YELLOW NRG Urine clarity determination CLEAR NR G Urine pH measurement by test strip 7 5-9 Specific gravity of urine by test strip 1.010 1.016-1.022 Urine protein assay by test strip, semi-quantitative 2+ NEGATIVE Urine glucose detection by automated test strip NE GATIVE NEGATIVE Erythrocytes detection in urine sediment by light micr oscopy NEGATIVE NEGATIVE Urine ketones detection by automated test strip NE GATIVE NEGATIVE Urine nitrite detection by test strip NEGATIVE NEGATIVE Urine total bilirubin detection by test strip NEGA TIVE NEGATIVE Urine urobilinogen measurement by automated test strip (mass/volume) NORMAL NORMAL Urine leukocyte esterase detection by dipstick 1+ NEGATIVE Automated urine sediment erythrocyte cou nt by microscopy (number/high power field) NONE NRG Automated urine sediment leukocyte count by microscopy (number/high power field) [HPF] NRG Bacteria detection in urine sediment by light microsco py FEW NRG Squamous epithelial cells detection in u rine sediment by light microscopy 0-2 NRG Crystals detection in urine sediment by light microsco py NONE NRG Casts detection in urine sediment by light microscopy NONE NRG Mucus detection in urine sediment by light microscopy NEGATIVE NRG Complete urinalysis with reflex to culture YES NRG Bacterial urine culture - 06/19/18 17:35 Bacterial urine culture [id number] NRG COLONY COUNT >100,000/ML NR FTX;REPORTABLE SUSCEPTIBILITY PERFORMED BY [facility] FREE TEXT ENTRY 2 [facility] FINAL REPORT PRINTED 0999, [facility] Sensitivity Panel - 06/19/18 17:35 Gentamicin susceptibility test by minimum inhibitory c oncentration > NRG Trimethoprim/sulfamethoxazole susceptibi lity test by minimum inhibitoryconcentration R NRG Levofloxacin susceptibility test by minimum inhibitory concentration > NRG Ampicillin susceptibility test by minimum inhibitory c oncentration > NRG Cefazolin susceptibility test by minimum inhibitory co ncentration > NRG Ceftriaxone susceptibility test by minimum inhibitory concentration <= NRG Ciprofloxacin susceptibility test by minimum inhibitor y concentration > NRG Nitrofurantoin susceptibility test by mi nimum inhibitory concentration > NRG Cefepime susceptibility test by minimum inhibitory con centration S NRG Amikacin susceptibility test by minimum inhibitory con centration S NRG Ertapenem susceptibility test by minimum inhibitory co ncentration S NRG Amoxicillin and clavulanate potassium susc AC = NRG Complete blood count (CBC) with automate d white blood cell (WBC) differential - 09/12/18 10:23 Blood leukocytes automated count (number/volume) 11.0 10*3/uL 4.3-11.0 Blood erythrocytes automated count (number/volume) 4.09 10*6/uL 4.35-5.85 Venous blood hemoglobin measurement (mass/volume) 12.5 g/dL 11.5-16.0 Blood hematocrit (volume fraction) 37 % 35-52 Automated erythrocyte mean corpuscular volume 90 [ foz_us] 80-99 Automated erythrocyte mean corpuscular h emoglobin (mass per erythrocyte) 31 pg 25-34 Automated erythrocyte mean corpuscular h emoglobin concentration measurement (mass/volume) 34 g/dL 32-36 Automated erythrocyte distribution width ratio 15. 9 % 10.0- 14.5 Automated blood platelet count (count/volume) 242 10*3/uL 130-400 Automated blood platelet mean volume measurement 12.1 [foz_us] 7.4-10.4 Automated blood neutrophils/100 leukocytes 87 % 42-75 Automated blood lymphocytes/100 leukocytes 10 % 12-44 Blood monocytes/100 leukocytes 2 % 0-12 Automated blood eosinophils/100 leukocytes 1 % 0-10 Automated blood basophils/100 leukocytes 0 % 0-10 Blood neutrophils automated count (number/volume) 9.6 10*3 1.8-7.8 Blood lymphocytes automated count (number/volume) 1.1 10*3 1.0-4.0 Blood monocytes automated count (number/volume) 0. 3 10*3 0.0-1.0 Automated eosinophil count 0.1 10*3/uL 0 .0-0.3 Automated blood basophil count (count/volume) 0.0 10*3/uL 0.0-0.1 PT panel in platelet poor plasma by coag ulation assay - 09/12/18 10:23 Prothrombin time (PT) in platelet poor plasma by coagu lation assay 20.9 s 12.2-14.7 INR in platelet poor plasma or blood by coagulation as say 1.8 0.8-1.4 Activated partial thromboplastin time (a PTT) in platelet poor plasma bycoagulation assay - 09/12/18 10:23 Activated partial thromboplastin time (a PTT) in platelet poor plasma bycoagulation assay 33 s 24-35 Comprehensive metabolic panel - 09/12/18 10:23 Serum or plasma sodium measurement (moles/volume) 137 mmol/L 135-145 Serum or plasma potassium measurement (moles/volume) 4.4 mmol/L 3.6-5.0 Serum or plasma chloride measurement (moles/volume) 96 mmol/L 98-107 Carbon dioxide 26 mmol/L 21-32 Serum or plasma anion gap determination (moles/volume) 15 mmol/L 5-14 Serum or plasma urea nitrogen measurement (mass/volume ) 23 mg/dL 7-18 Serum or plasma creatinine measurement (mass/volume) 1.10 mg/dL 0.60-1.30 Serum or plasma urea nitrogen/creatinine mass ratio 21 NRG Serum or plasma creatinine measurement w ith calculation of estimated glomerular filtration rate 49 NRG Serum or plasma glucose measurement (mass/volume) 350 mg/dL 70-105 Serum or plasma calcium measurement (mass/volume) 9.8 mg/dL 8.5-10.1 Serum or plasma total bilirubin measurement (mass/volu me) 0.5 mg/dL 0.1-1.0 Serum or plasma alkaline phosphatase maryann surement (enzymatic activity/volume) 62 U/L 40-136 Serum or plasma aspartate aminotransfera se measurement (enzymatic activity/volume) 92 U/L 5-34 Serum or plasma alanine aminotransferase measurement (enzymatic activity/volume) 35 U/L 0-55 Serum or plasma protein measurement (mass/volume) 8.1 g/dL 6.4-8.2 Serum or plasma albumin measurement (mass/volume) 3.4 g/dL 3.2-4.5 CALCIUM CORRECTED 10.3 mg/dL 8.5-10.1 Magnesium - 09/12/18 10:23 Magnesium 2.5 mg/dL 1.8-2.4 Blood manual differential performed dete ction - 09/12/18 10:23 Blood monocytes/100 leukocytes 1 % NRG Manual blood segmented neutrophils/100 leukocytes 85 % NRG Blood band neutrophils/100 leukocytes 0 % NRG Manual blood lymphocytes/100 leukocytes 14 % NRG Manual eosinophils/100 leukocytes in nose 0 % NRG Manual blood basophils/100 leukocytes 0 % NRG Blood erythrocyte morphology finding identification NORMAL NRG Serum or plasma troponin i.cardiac measu rement (mass/volume) - 09/12/18 10:23 Serum or plasma troponin i.cardiac measurement (mass/v olume) < ng/mL <0.30 Myoglobin, serum - 09/12/18 10:23 Myoglobin, serum 42.4 ng/mL 10.0-92.0 Capillary blood glucose measurement by g lucometer (mass/volume) - 09/12/18 15:01 Capillary blood glucose measurement by glucometer (mas s/volume) 452 mg/dL 70-110 Capillary blood glucose measurement by g lucometer (mass/volume) - 09/12/18 19:43 Capillary blood glucose measurement by glucometer (mas s/volume) 343 mg/dL 70-110 Complete blood count (CBC) with automate d white blood cell (WBC) differential - 09/13/18 05:10 Blood leukocytes automated count (number/volume) 8.1 10*3/uL 4.3-11.0 Blood erythrocytes automated count (number/volume) 3.91 10*6/uL 4.35-5.85 Venous blood hemoglobin measurement (mass/volume) 11.5 g/dL 11.5-16.0 Blood hematocrit (volume fraction) 36 % 35-52 Automated erythrocyte mean corpuscular volume 91 [ foz_us] 80-99 Automated erythrocyte mean corpuscular h emoglobin (mass per erythrocyte) 29 pg 25-34 Automated erythrocyte mean corpuscular h emoglobin concentration measurement (mass/volume) 32 g/dL 32-36 Automated erythrocyte distribution width ratio 16. 1 % 10.0- 14.5 Automated blood platelet count (count/volume) 215 10*3/uL 130-400 Automated blood platelet mean volume measurement 11.9 [foz_us] 7.4-10.4 Automated blood neutrophils/100 leukocytes 78 % 42-75 Automated blood lymphocytes/100 leukocytes 16 % 12-44 Blood monocytes/100 leukocytes 5 % 0-12 Automated blood eosinophils/100 leukocytes 1 % 0-10 Automated blood basophils/100 leukocytes 0 % 0-10 Blood neutrophils automated count (number/volume) 6.3 10*3 1.8-7.8 Blood lymphocytes automated count (number/volume) 1.3 10*3 1.0-4.0 Blood monocytes automated count (number/volume) 0. 4 10*3 0.0-1.0 Automated eosinophil count 0.1 10*3/uL 0 .0-0.3 Automated blood basophil count (count/volume) 0.0 10*3/uL 0.0-0.1 Lipid 1996 panel - 09/13/18 05:10 Serum or plasma triglyceride measurement (mass/volume) 107 mg/dL <150 Serum or plasma cholesterol measurement (mass/volume) 145 mg/dL < 200 Serum or plasma cholesterol in HDL measurement (mass/v olume) 48 mg/dL 40-60 Cholesterol in LDL [mass/volume] in serum or plasma by direct assay 80 mg/dL 1-129 Serum or plasma cholesterol in VLDL measurement (mass/ volume) 21 mg/dL 5-40 Comprehensive metabolic panel - 09/13/18 05:10 Serum or plasma sodium measurement (moles/volume) 138 mmol/L 135-145 Serum or plasma potassium measurement (moles/volume) 3.8 mmol/L 3.6-5.0 Serum or plasma chloride measurement (moles/volume) 97 mmol/L 98-107 Carbon dioxide 29 mmol/L 21-32 Serum or plasma anion gap determination (moles/volume) 12 mmol/L 5-14 Serum or plasma urea nitrogen measurement (mass/volume ) 21 mg/dL 7-18 Serum or plasma creatinine measurement (mass/volume) 0.99 mg/dL 0.60-1.30 Serum or plasma urea nitrogen/creatinine mass ratio 21 NRG Serum or plasma creatinine measurement w ith calculation of estimated glomerular filtration rate 55 NRG Serum or plasma glucose measurement (mass/volume) 240 mg/dL 70-105 Serum or plasma calcium measurement (mass/volume) 8.8 mg/dL 8.5-10.1 Serum or plasma total bilirubin measurement (mass/volu me) 0.3 mg/dL 0.1-1.0 Serum or plasma alkaline phosphatase maryann surement (enzymatic activity/volume) 53 U/L 40-136 Serum or plasma aspartate aminotransfera se measurement (enzymatic activity/volume) 58 U/L 5-34 Serum or plasma alanine aminotransferase measurement (enzymatic activity/volume) 46 U/L 0-55 Serum or plasma protein measurement (mass/volume) 7.0 g/dL 6.4-8.2 Serum or plasma albumin measurement (mass/volume) 3.0 g/dL 3.2-4.5 CALCIUM CORRECTED 9.6 mg/dL 8.5-10.1 Serum or plasma creatine kinase measurem ent (enzymatic activity/volume) - 09/13/18 05:10 Serum or plasma creatine kinase measurem ent (enzymatic activity/volume) 34 U/L 29-168 Serum or plasma troponin i.cardiac measu rement (mass/volume) - 09/13/18 05:10 Serum or plasma troponin i.cardiac measurement (mass/v olume) < ng/mL <0.30 Myoglobin, serum - 09/13/18 05:10 Myoglobin, serum 49.3 ng/mL 10.0-92.0 Capillary blood glucose measurement by g lucometer (mass/volume) - 09/13/18 06:40 Capillary blood glucose measurement by glucometer (mas s/volume) 264 mg/dL 70-110 Capillary blood glucose measurement by g lucometer (mass/volume) - 09/13/18 09:27 Capillary blood glucose measurement by glucometer (mas s/volume) 246 mg/dL 70-110 Complete urinalysis with reflex to cultu re - 09/16/18 16:35 Urine color determination YELLOW NRG Urine clarity determination SLIGHTLY CLOUDY NRG Urine pH measurement by test strip 6 5-9 Specific gravity of urine by test strip 1.015 1.016-1.022 Urine protein assay by test strip, semi-quantitative 2+ NEGATIVE Urine glucose detection by automated test strip NE GATIVE NEGATIVE Erythrocytes detection in urine sediment by light micr oscopy 2+ NEGATIVE Urine ketones detection by automated test strip NE GATIVE NEGATIVE Urine nitrite detection by test strip POSITIVE NEGATIVE Urine total bilirubin detection by test strip NEGA TIVE NEGATIVE Urine urobilinogen measurement by automated test strip (mass/volume) NORMAL NORMAL Urine leukocyte esterase detection by dipstick 1+ NEGATIVE Automated urine sediment erythrocyte cou nt by microscopy (number/high power field) NONE NRG Automated urine sediment leukocyte count by microscopy (number/high power field) [HPF] NRG Bacteria detection in urine sediment by light microsco py LARGE NRG Squamous epithelial cells detection in u rine sediment by light microscopy >50 NRG Crystals detection in urine sediment by light microsco py NONE NRG Casts detection in urine sediment by light microscopy NONE NRG Mucus detection in urine sediment by light microscopy NEGATIVE NRG Complete urinalysis with reflex to culture YES NRG Yeast detection in urine sediment by light microscopy FEW NRG Bacterial urine culture - 09/16/18 16:35 Bacterial urine culture [id number] NRG COLONY COUNT >100,000/ML NRG FTX;REPORTABLE ID/SENSITIVITY REPORTED 09/18/18 12 :05 NRG RML Sensitivity Panel - 09/16/18 16:35 Gentamicin susceptibility test by minimum inhibitory c oncentration <= NRG Trimethoprim/sulfamethoxazole susceptibi lity test by minimum inhibitoryconcentration <= NRG Levofloxacin susceptibility test by minimum inhibitory concentration <= NRG Ampicillin susceptibility test by minimum inhibitory c oncentration R NRG Cefazolin susceptibility test by minimum inhibitory co ncentration <= NRG Ceftriaxone susceptibility test by minimum inhibitory concentration <= NRG Ciprofloxacin susceptibility test by minimum inhibitor y concentration <= NRG Meropenem susceptibility test by minimum inhibitory co ncentration <= NRG Nitrofurantoin susceptibility test by mi nimum inhibitory concentration 64 NRG Amoxicillin and clavulanate potassium susc AC <= NRG Complete blood count (CBC) with automate d white blood cell (WBC) differential - 09/16/18 17:19 Blood leukocytes automated count (number/volume) 9.6 10*3/uL 4.3-11.0 Blood erythrocytes automated count (number/volume) 3.89 10*6/uL 4.35-5.85 Venous blood hemoglobin measurement (mass/volume) 11.4 g/dL 11.5-16.0 Blood hematocrit (volume fraction) 36 % 35-52 Automated erythrocyte mean corpuscular volume 93 [ foz_us] 80-99 Automated erythrocyte mean corpuscular h emoglobin (mass per erythrocyte) 29 pg 25-34 Automated erythrocyte mean corpuscular h emoglobin concentration measurement (mass/volume) 32 g/dL 32-36 Automated erythrocyte distribution width ratio 16. 6 % 10.0- 14.5 Automated blood platelet count (count/volume) 253 10*3/uL 130-400 Automated blood platelet mean volume measurement 11.9 [foz_us] 7.4-10.4 Automated blood neutrophils/100 leukocytes 63 % 42-75 Automated blood lymphocytes/100 leukocytes 28 % 12-44 Blood monocytes/100 leukocytes 8 % 0-12 Automated blood eosinophils/100 leukocytes 1 % 0-10 Automated blood basophils/100 leukocytes 1 % 0-10 Blood neutrophils automated count (number/volume) 6.0 10*3 1.8-7.8 Blood lymphocytes automated count (number/volume) 2.7 10*3 1.0-4.0 Blood monocytes automated count (number/volume) 0. 8 10*3 0.0-1.0 Automated eosinophil count 0.1 10*3/uL 0 .0-0.3 Automated blood basophil count (count/volume) 0.1 10*3/uL 0.0-0.1 Comprehensive metabolic panel - 09/16/18 17:19 Serum or plasma sodium measurement (moles/volume) 141 mmol/L 135-145 Serum or plasma potassium measurement (moles/volume) 4.3 mmol/L 3.6-5.0 Serum or plasma chloride measurement (moles/volume) 97 mmol/L 98-107 Carbon dioxide 28 mmol/L 21-32 Serum or plasma anion gap determination (moles/volume) 16 mmol/L 5-14 Serum or plasma urea nitrogen measurement (mass/volume ) 49 mg/dL 7-18 Serum or plasma creatinine measurement (mass/volume) 1.35 mg/dL 0.60-1.30 Serum or plasma urea nitrogen/creatinine mass ratio 36 NRG Serum or plasma creatinine measurement w ith calculation of estimated glomerular filtration rate 38 NRG Serum or plasma glucose measurement (mass/volume) 159 mg/dL 70-105 Serum or plasma calcium measurement (mass/volume) 8.9 mg/dL 8.5-10.1 Serum or plasma total bilirubin measurement (mass/volu me) 0.2 mg/dL 0.1-1.0 Serum or plasma alkaline phosphatase maryann surement (enzymatic activity/volume) 59 U/L 40-136 Serum or plasma aspartate aminotransfera se measurement (enzymatic activity/volume) 23 U/L 5-34 Serum or plasma alanine aminotransferase measurement (enzymatic activity/volume) 30 U/L 0-55 Serum or plasma protein measurement (mass/volume) 7.1 g/dL 6.4-8.2 Serum or plasma albumin measurement (mass/volume) 3.2 g/dL 3.2-4.5 CALCIUM CORRECTED 9.5 mg/dL 8.5-10.1 Serum or plasma lithium measurement (mol es/volume) - 09/16/18 17:19 BNP level 329.6 pg/mL <100.0 Serum or plasma troponin i.cardiac measu rement (mass/volume) - 09/16/18 17:19 Serum or plasma troponin i.cardiac measurement (mass/v olume) < ng/mL <0.30 THYROID STIMULATING HORMONE - 09/16/18 1 7:19 THYROID STIMULATING HORMONE 0.21 u[iU]/mL 0.35-4.94 Digoxin - 09/16/18 17:19 Digoxin 0.88 ng/mL 0.80-2.00 Complete blood count (CBC) with automate d white blood cell (WBC) differential - 12/03/18 06:23 Blood leukocytes automated count (number/volume) 15.7 10*3/uL 4.3-11.0 Blood erythrocytes automated count (number/volume) 3.74 10*6/uL 4.35-5.85 Venous blood hemoglobin measurement (mass/volume) 11.4 g/dL 11.5-16.0 Blood hematocrit (volume fraction) 37 % 35-52 Automated erythrocyte mean corpuscular volume 98 [ foz_us] 80-99 Automated erythrocyte mean corpuscular h emoglobin (mass per erythrocyte) 31 pg 25-34 Automated erythrocyte mean corpuscular h emoglobin concentration measurement (mass/volume) 31 g/dL 32-36 Automated erythrocyte distribution width ratio 16. 7 % 10.0- 14.5 Automated blood platelet count (count/volume) 268 10*3/uL 130-400 Automated blood platelet mean volume measurement 11.8 [foz_us] 7.4-10.4 Automated blood neutrophils/100 leukocytes 83 % 42-75 Automated blood lymphocytes/100 leukocytes 10 % 12-44 Blood monocytes/100 leukocytes 4 % 0-12 Automated blood eosinophils/100 leukocytes 3 % 0-10 Automated blood basophils/100 leukocytes 0 % 0-10 Blood neutrophils automated count (number/volume) 13.0 10*3 1.8-7.8 Blood lymphocytes automated count (number/volume) 1.5 10*3 1.0-4.0 Blood monocytes automated count (number/volume) 0. 6 10*3 0.0-1.0 Automated eosinophil count 0.4 10*3/uL 0 .0-0.3 Automated blood basophil count (count/volume) 0.1 10*3/uL 0.0-0.1 Blood manual differential performed dete ction - 12/03/18 06:23 Blood monocytes/100 leukocytes 2 % NRG Manual blood segmented neutrophils/100 leukocytes 83 % NRG Blood band neutrophils/100 leukocytes 0 % NRG Manual blood lymphocytes/100 leukocytes 11 % NRG Manual eosinophils/100 leukocytes in nose 4 % NRG Manual blood basophils/100 leukocytes 0 % NRG Blood polychromasia detection by light microscopy SLIGHT NRG Blood anisocytosis detection by light microscopy S LIGHT NRG Blood macrocytes detection by light microscopy SLI GHT NRG Blood hypochromia detection by light microscopy SL IGHT NRG Blood target cells detection by light microscopy S LIGHT NRG PT panel in platelet poor plasma by coag ulation assay - 12/03/18 06:23 Prothrombin time (PT) in platelet poor plasma by coagu lation assay 24.4 s 12.2-14.7 INR in platelet poor plasma or blood by coagulation as say 2.2 0.8-1.4 Activated partial thromboplastin time (a PTT) in platelet poor plasma bycoagulation assay - 12/03/18 06:23 Activated partial thromboplastin time (a PTT) in platelet poor plasma bycoagulation assay 49 s 24-35 Whole blood basic metabolic panel - 9 06:23 Serum or plasma sodium measurement (moles/volume) 140 mmol/L 135-145 Serum or plasma potassium measurement (moles/volume) 4.2 mmol/L 3.6-5.0 Serum or plasma chloride measurement (moles/volume) 102 mmol/L 98-107 Carbon dioxide 24 mmol/L 21-32 Serum or plasma anion gap determination (moles/volume) 14 mmol/L 5-14 Serum or plasma urea nitrogen measurement (mass/volume ) 15 mg/dL 7-18 Serum or plasma creatinine measurement (mass/volume) 1.07 mg/dL 0.60-1.30 Serum or plasma urea nitrogen/creatinine mass ratio 14 NRG Serum or plasma creatinine measurement w ith calculation of estimated glomerular filtration rate 50 NRG Serum or plasma glucose measurement (mass/volume) 185 mg/dL 70-105 Serum or plasma calcium measurement (mass/volume) 9.4 mg/dL 8.5-10.1 Digoxin - 12/03/18 06:23 Digoxin < ng/mL 0.80-2.00 Complete blood count (CBC) with automate d white blood cell (WBC) differential - 12/29/18 00:51 Blood leukocytes automated count (number/volume) 13.7 10*3/uL 4.3-11.0 Blood erythrocytes automated count (number/volume) 3.40 10*6/uL 4.35-5.85 Venous blood hemoglobin measurement (mass/volume) 10.1 g/dL 11.5-16.0 Blood hematocrit (volume fraction) 33 % 35-52 Automated erythrocyte mean corpuscular volume 97 [ foz_us] 80-99 Automated erythrocyte mean corpuscular h emoglobin (mass per erythrocyte) 30 pg 25-34 Automated erythrocyte mean corpuscular h emoglobin concentration measurement (mass/volume) 31 g/dL 32-36 Automated erythrocyte distribution width ratio 16. 2 % 10.0- 14.5 Automated blood platelet count (count/volume) 271 10*3/uL 130-400 Automated blood platelet mean volume measurement 11.8 [foz_us] 7.4-10.4 Automated blood neutrophils/100 leukocytes 77 % 42-75 Automated blood lymphocytes/100 leukocytes 15 % 12-44 Blood monocytes/100 leukocytes 5 % 0-12 Automated blood eosinophils/100 leukocytes 3 % 0-10 Automated blood basophils/100 leukocytes 0 % 0-10 Blood neutrophils automated count (number/volume) 10.6 10*3 1.8-7.8 Blood lymphocytes automated count (number/volume) 2.0 10*3 1.0-4.0 Blood monocytes automated count (number/volume) 0. 7 10*3 0.0-1.0 Automated eosinophil count 0.4 10*3/uL 0 .0-0.3 Automated blood basophil count (count/volume) 0.0 10*3/uL 0.0-0.1 PT panel in platelet poor plasma by coag ulation assay - 12/29/18 01:33 Prothrombin time (PT) in platelet poor plasma by coagu lation assay 28.4 s 12.2-14.7 INR in platelet poor plasma or blood by coagulation as say 2.6 0.8-1.4 Activated partial thromboplastin time (a PTT) in platelet poor plasma bycoagulation assay - 12/29/18 01:33 Activated partial thromboplastin time (a PTT) in platelet poor plasma bycoagulation assay 48 s 24-35 Comprehensive metabolic panel - 12/29/18 01:33 Serum or plasma sodium measurement (moles/volume) 142 mmol/L 135-145 Serum or plasma potassium measurement (moles/volume) 3.6 mmol/L 3.6-5.0 Serum or plasma chloride measurement (moles/volume) 100 mmol/L 98-107 Carbon dioxide 29 mmol/L 21-32 Serum or plasma anion gap determination (moles/volume) 13 mmol/L 5-14 Serum or plasma urea nitrogen measurement (mass/volume ) 19 mg/dL 7-18 Serum or plasma creatinine measurement (mass/volume) 1.20 mg/dL 0.60-1.30 Serum or plasma urea nitrogen/creatinine mass ratio 16 NRG Serum or plasma creatinine measurement w ith calculation of estimated glomerular filtration rate 44 NRG Serum or plasma glucose measurement (mass/volume) 276 mg/dL 70-105 Serum or plasma calcium measurement (mass/volume) 9.0 mg/dL 8.5-10.1 Serum or plasma total bilirubin measurement (mass/volu me) 0.3 mg/dL 0.1-1.0 Serum or plasma alkaline phosphatase maryann surement (enzymatic activity/volume) 46 U/L 40-136 Serum or plasma aspartate aminotransfera se measurement (enzymatic activity/volume) 15 U/L 5-34 Serum or plasma alanine aminotransferase measurement (enzymatic activity/volume) 10 U/L 0-55 Serum or plasma protein measurement (mass/volume) 7.1 g/dL 6.4-8.2 Serum or plasma albumin measurement (mass/volume) 3.2 g/dL 3.2-4.5 CALCIUM CORRECTED 9.6 mg/dL 8.5-10.1 Magnesium - 12/29/18 01:33 Magnesium 2.1 mg/dL 1.8-2.4 Serum or plasma troponin i.cardiac measu rement (mass/volume) - 12/29/18 01:33 Serum or plasma troponin i.cardiac measurement (mass/v olume) < ng/mL <0.028 Myoglobin, serum - 12/29/18 01:33 Myoglobin, serum 38.9 ng/mL 10.0-92.0 Serum or plasma troponin i.cardiac measu rement (mass/volume) - 12/29/18 03:40 Serum or plasma troponin i.cardiac measurement (mass/v olume) < ng/mL <0.028 Influenza virus A and B antigen detectio n - 01/11/19 22:07 FLU RESULT NEGATIVE FOR INFLUENZA A AND B ANTIGENS BY IA NRG Complete blood count (CBC) with automate d white blood cell (WBC) differential - 01/11/19 22:12 Blood leukocytes automated count (number/volume) 13.3 10*3/uL 4.3-11.0 Blood erythrocytes automated count (number/volume) 3.40 10*6/uL 4.35-5.85 Venous blood hemoglobin measurement (mass/volume) 10.2 g/dL 11.5-16.0 Blood hematocrit (volume fraction) 33 % 35-52 Automated erythrocyte mean corpuscular volume 97 [ foz_us] 80-99 Automated erythrocyte mean corpuscular h emoglobin (mass per erythrocyte) 30 pg 25-34 Automated erythrocyte mean corpuscular h emoglobin concentration measurement (mass/volume) 31 g/dL 32-36 Automated erythrocyte distribution width ratio 16. 9 % 10.0- 14.5 Automated blood platelet count (count/volume) 300 10*3/uL 130-400 Automated blood platelet mean volume measurement 11.8 [foz_us] 7.4-10.4 Automated blood neutrophils/100 leukocytes 79 % 42-75 Automated blood lymphocytes/100 leukocytes 14 % 12-44 Blood monocytes/100 leukocytes 4 % 0-12 Automated blood eosinophils/100 leukocytes 3 % 0-10 Automated blood basophils/100 leukocytes 0 % 0-10 Blood neutrophils automated count (number/volume) 10.6 10*3 1.8-7.8 Blood lymphocytes automated count (number/volume) 1.8 10*3 1.0-4.0 Blood monocytes automated count (number/volume) 0. 6 10*3 0.0-1.0 Automated eosinophil count 0.4 10*3/uL 0 .0-0.3 Automated blood basophil count (count/volume) 0.0 10*3/uL 0.0-0.1 PT panel in platelet poor plasma by coag ulation assay - 01/11/19 22:12 Prothrombin time (PT) in platelet poor plasma by coagu lation assay 26.7 s 12.2-14.7 INR in platelet poor plasma or blood by coagulation as say 2.4 0.8-1.4 Activated partial thromboplastin time (a PTT) in platelet poor plasma bycoagulation assay - 01/11/19 22:12 Activated partial thromboplastin time (a PTT) in platelet poor plasma bycoagulation assay 52 s 24-35 Comprehensive metabolic panel - 01/11/19 22:12 Serum or plasma sodium measurement (moles/volume) 139 mmol/L 135-145 Serum or plasma potassium measurement (moles/volume) 3.7 mmol/L 3.6-5.0 Serum or plasma chloride measurement (moles/volume) 98 mmol/L 98-107 Carbon dioxide 29 mmol/L 21-32 Serum or plasma anion gap determination (moles/volume) 12 mmol/L 5-14 Serum or plasma urea nitrogen measurement (mass/volume ) 16 mg/dL 7-18 Serum or plasma creatinine measurement (mass/volume) 1.25 mg/dL 0.60-1.30 Serum or plasma urea nitrogen/creatinine mass ratio 13 NRG Serum or plasma creatinine measurement w ith calculation of estimated glomerular filtration rate 42 NRG Serum or plasma glucose measurement (mass/volume) 359 mg/dL 70-105 Serum or plasma calcium measurement (mass/volume) 9.5 mg/dL 8.5-10.1 Serum or plasma total bilirubin measurement (mass/volu me) 0.4 mg/dL 0.1-1.0 Serum or plasma alkaline phosphatase maryann surement (enzymatic activity/volume) 47 U/L 40-136 Serum or plasma aspartate aminotransfera se measurement (enzymatic activity/volume) 23 U/L 5-34 Serum or plasma alanine aminotransferase measurement (enzymatic activity/volume) 11 U/L 0-55 Serum or plasma protein measurement (mass/volume) 7.9 g/dL 6.4-8.2 Serum or plasma albumin measurement (mass/volume) 3.4 g/dL 3.2-4.5 CALCIUM CORRECTED 10.0 mg/dL 8.5-10.1 Magnesium - 01/11/19 22:12 Magnesium 2.3 mg/dL 1.8-2.4 Serum or plasma creatine kinase measurem ent (enzymatic activity/volume) - 01/11/19 22:12 Serum or plasma creatine kinase measurem ent (enzymatic activity/volume) 38 U/L 29-168 Blood lactic acid measurement (moles/vol ume) - 01/11/19 22:12 Blood lactic acid measurement (moles/volume) 2.35 mmol/L 0.50-2.00 Serum or plasma creatine kinase MB measu rement (enzymatic activity/volume) - 01/11/19 22:12 Serum or plasma creatine kinase MB measu rement (enzymatic activity/volume) 0.8 ng/mL <6.6 Serum or plasma troponin i.cardiac measu rement (mass/volume) - 01/11/19 22:12 Serum or plasma troponin i.cardiac measurement (mass/v olume) < ng/mL <0.028 DIGOXIN - 01/11/19 22:12 DIGOXIN < 0.30 0.80-2.00 Serum or plasma lithium measurement (mol es/volume) - 01/11/19 22:12 BNP level 201.3 pg/mL <100.0 Bacterial blood culture - 01/11/19 22:12 Bacterial blood culture NG NRG Bacterial blood culture - 01/11/19 22:27 Bacterial blood culture NG NRG Complete urinalysis with reflex to cultu re - 01/11/19 22:49 Urine color determination YELLOW NRG Urine clarity determination CLEAR NR G Urine pH measurement by test strip 7 5-9 Specific gravity of urine by test strip 1.010 1.016-1.022 Urine protein assay by test strip, semi-quantitative 2+ NEGATIVE Urine glucose detection by automated test strip 3+ NEGATIVE Erythrocytes detection in urine sediment by light micr oscopy NEGATIVE NEGATIVE Urine ketones detection by automated test strip NE GATIVE NEGATIVE Urine nitrite detection by test strip NEGATIVE NEGATIVE Urine total bilirubin detection by test strip NEGA TIVE NEGATIVE Urine urobilinogen measurement by automated test strip (mass/volume) NORMAL NORMAL Urine leukocyte esterase detection by dipstick NEG ATIVE NEGATIVE Automated urine sediment erythrocyte cou nt by microscopy (number/high power field) RARE NRG Automated urine sediment leukocyte count by microscopy (number/high power field) [HPF] NRG Bacteria detection in urine sediment by light microsco py FEW NRG Squamous epithelial cells detection in u rine sediment by light microscopy RARE NRG Crystals detection in urine sediment by light microsco py PRESENT NRG Casts detection in urine sediment by light microscopy NONE NRG Mucus detection in urine sediment by light microscopy NEGATIVE NRG Complete urinalysis with reflex to culture NO NRG Amorphous sediment detection in urine sediment by ligh t microscopy FEW PURA URATES NRG Renal epithelial cells detection in urin e sediment by light microscopy NONE NRG Serum or plasma lactate measurement (mol es/volume) - 01/12/19 00:35 Serum or plasma lactate measurement (moles/volume) 1.21 mmol/L 0.50-2.00 Capillary blood glucose measurement by g lucometer (mass/volume) - 01/12/19 01:25 Capillary blood glucose measurement by glucometer (mas s/volume) 147 mg/dL 70-110 Complete blood count (CBC) with automate d white blood cell (WBC) differential - 02/16/19 12:34 Blood leukocytes automated count (number/volume) 13.6 10*3/uL 4.3-11.0 Blood erythrocytes automated count (number/volume) 4.23 10*6/uL 4.35-5.85 Venous blood hemoglobin measurement (mass/volume) 12.5 g/dL 11.5-16.0 Blood hematocrit (volume fraction) 40 % 35-52 Automated erythrocyte mean corpuscular volume 93 [ foz_us] 80-99 Automated erythrocyte mean corpuscular h emoglobin (mass per erythrocyte) 30 pg 25-34 Automated erythrocyte mean corpuscular h emoglobin concentration measurement (mass/volume) 32 g/dL 32-36 Automated erythrocyte distribution width ratio 16. 8 % 10.0- 14.5 Automated blood platelet count (count/volume) 313 10*3/uL 130-400 Automated blood platelet mean volume measurement 11.6 [foz_us] 7.4-10.4 Automated blood neutrophils/100 leukocytes 75 % 42-75 Automated blood lymphocytes/100 leukocytes 17 % 12-44 Blood monocytes/100 leukocytes 5 % 0-12 Automated blood eosinophils/100 leukocytes 3 % 0-10 Automated blood basophils/100 leukocytes 0 % 0-10 Blood neutrophils automated count (number/volume) 10.2 10*3 1.8-7.8 Blood lymphocytes automated count (number/volume) 2.3 10*3 1.0-4.0 Blood monocytes automated count (number/volume) 0. 7 10*3 0.0-1.0 Automated eosinophil count 0.4 10*3/uL 0 .0-0.3 Automated blood basophil count (count/volume) 0.0 10*3/uL 0.0-0.1 Comprehensive metabolic panel - 02/16/19 12:34 Serum or plasma sodium measurement (moles/volume) 144 mmol/L 135-145 Serum or plasma potassium measurement (moles/volume) 3.8 mmol/L 3.6-5.0 Serum or plasma chloride measurement (moles/volume) 104 mmol/L 98-107 Carbon dioxide 26 mmol/L 21-32 Serum or plasma anion gap determination (moles/volume) 14 mmol/L 5-14 Serum or plasma urea nitrogen measurement (mass/volume ) 12 mg/dL 7-18 Serum or plasma creatinine measurement (mass/volume) 0.86 mg/dL 0.60-1.30 Serum or plasma urea nitrogen/creatinine mass ratio 14 NRG Serum or plasma creatinine measurement w ith calculation of estimated glomerular filtration rate > NRG Serum or plasma glucose measurement (mass/volume) 90 mg/dL 70-105 Serum or plasma calcium measurement (mass/volume) 10.0 mg/dL 8.5-10.1 Serum or plasma total bilirubin measurement (mass/volu me) 0.2 mg/dL 0.1-1.0 Serum or plasma alkaline phosphatase maryann surement (enzymatic activity/volume) 56 U/L 40-136 Serum or plasma aspartate aminotransfera se measurement (enzymatic activity/volume) 18 U/L 5-34 Serum or plasma alanine aminotransferase measurement (enzymatic activity/volume) 9 U/L 0-55 Serum or plasma protein measurement (mass/volume) 8.2 g/dL 6.4-8.2 Serum or plasma albumin measurement (mass/volume) 3.6 g/dL 3.2-4.5 CALCIUM CORRECTED 10.3 mg/dL 8.5-10.1 Lipase - 02/16/19 12:34 Lipase 23 U/L 8-78 Complete blood count (CBC) with automate d white blood cell (WBC) differential - 09/08/19 23:13 Blood leukocytes automated count (number/volume) 13.0 10*3/uL 4.3-11.0 Blood erythrocytes automated count (number/volume) 4.08 10*6/uL 4.35-5.85 Venous blood hemoglobin measurement (mass/volume) 12.0 g/dL 11.5-16.0 Blood hematocrit (volume fraction) 38 % 35-52 Automated erythrocyte mean corpuscular volume 93 [ foz_us] 80-99 Automated erythrocyte mean corpuscular h emoglobin (mass per erythrocyte) 29 pg 25-34 Automated erythrocyte mean corpuscular h emoglobin concentration measurement (mass/volume) 32 g/dL 32-36 Automated erythrocyte distribution width ratio 14. 1 % 10.0- 14.5 Automated blood platelet count (count/volume) 303 10*3/uL 130-400 Automated blood platelet mean volume measurement 11.8 [foz_us] 7.4-10.4 Automated blood neutrophils/100 leukocytes 67 % 42-75 Automated blood lymphocytes/100 leukocytes 22 % 12-44 Blood monocytes/100 leukocytes 6 % 0-12 Automated blood eosinophils/100 leukocytes 4 % 0-10 Automated blood basophils/100 leukocytes 0 % 0-10 Blood neutrophils automated count (number/volume) 8.6 10*3 1.8-7.8 Blood lymphocytes automated count (number/volume) 2.9 10*3 1.0-4.0 Blood monocytes automated count (number/volume) 0. 8 10*3 0.0-1.0 Automated eosinophil count 0.6 10*3/uL 0 .0-0.3 Automated blood basophil count (count/volume) 0.0 10*3/uL 0.0-0.1 Comprehensive metabolic panel - 09/08/19 23:13 Serum or plasma sodium measurement (moles/volume) 142 mmol/L 135-145 Serum or plasma potassium measurement (moles/volume) 3.6 mmol/L 3.6-5.0 Serum or plasma chloride measurement (moles/volume) 101 mmol/L 98-107 Carbon dioxide 30 mmol/L 21-32 Serum or plasma anion gap determination (moles/volume) 11 mmol/L 5-14 Serum or plasma urea nitrogen measurement (mass/volume ) 17 mg/dL 7-18 Serum or plasma creatinine measurement (mass/volume) 0.85 mg/dL 0.60-1.30 Serum or plasma urea nitrogen/creatinine mass ratio 20 NRG Serum or plasma creatinine measurement w ith calculation of estimated glomerular filtration rate > NRG Serum or plasma glucose measurement (mass/volume) 175 mg/dL 70-105 Serum or plasma calcium measurement (mass/volume) 9.2 mg/dL 8.5-10.1 Serum or plasma total bilirubin measurement (mass/volu me) 0.2 mg/dL 0.1-1.0 Serum or plasma alkaline phosphatase maryann surement (enzymatic activity/volume) 72 U/L 40-136 Serum or plasma aspartate aminotransfera se measurement (enzymatic activity/volume) 19 U/L 5-34 Serum or plasma alanine aminotransferase measurement (enzymatic activity/volume) 25 U/L 0-55 Serum or plasma protein measurement (mass/volume) 7.1 g/dL 6.4-8.2 Serum or plasma albumin measurement (mass/volume) 3.0 g/dL 3.2-4.5 CALCIUM CORRECTED 10.0 mg/dL 8.5-10.1 Magnesium - 09/08/19 23:13 Magnesium 2.0 mg/dL 1.6-2.4 PT panel in platelet poor plasma by coag ulation assay - 09/08/19 23:13 Prothrombin time (PT) in platelet poor plasma by coagu lation assay 14.5 s 12.2-14.7 INR in platelet poor plasma or blood by coagulation as say 1.1 0.8-1.4 Activated partial thromboplastin time (a PTT) in platelet poor plasma bycoagulation assay - 09/08/19 23:13 Activated partial thromboplastin time (a PTT) in platelet poor plasma bycoagulation assay 33 s 24-35 Serum or plasma troponin i.cardiac measu rement (mass/volume) - 09/08/19 23:13 Serum or plasma troponin i.cardiac measurement (mass/v olume) < ng/mL <0.028 Myoglobin, serum - 09/08/19 23:13 Myoglobin, serum 35.7 ng/mL 10.0-92.0 Serum or plasma lithium measurement (mol es/volume) - 09/08/19 23:13 BNP PT 51.3 pg/mL <100.0 Complete blood count (CBC) with automate d white blood cell (WBC) differential - 09/09/19 03:20 Blood leukocytes automated count (number/volume) 12.4 10*3/uL 4.3-11.0 Blood erythrocytes automated count (number/volume) 3.97 10*6/uL 4.35-5.85 Venous blood hemoglobin measurement (mass/volume) 11.7 g/dL 11.5-16.0 Blood hematocrit (volume fraction) 37 % 35-52 Automated erythrocyte mean corpuscular volume 93 [ foz_us] 80-99 Automated erythrocyte mean corpuscular h emoglobin (mass per erythrocyte) 29 pg 25-34 Automated erythrocyte mean corpuscular h emoglobin concentration measurement (mass/volume) 32 g/dL 32-36 Automated erythrocyte distribution width ratio 14. 2 % 10.0- 14.5 Automated blood platelet count (count/volume) 285 10*3/uL 130-400 Automated blood platelet mean volume measurement 11.8 [foz_us] 7.4-10.4 Automated blood neutrophils/100 leukocytes 70 % 42-75 Automated blood lymphocytes/100 leukocytes 20 % 12-44 Blood monocytes/100 leukocytes 5 % 0-12 Automated blood eosinophils/100 leukocytes 5 % 0-10 Automated blood basophils/100 leukocytes 0 % 0-10 Blood neutrophils automated count (number/volume) 8.7 10*3 1.8-7.8 Blood lymphocytes automated count (number/volume) 2.4 10*3 1.0-4.0 Blood monocytes automated count (number/volume) 0. 6 10*3 0.0-1.0 Automated eosinophil count 0.6 10*3/uL 0 .0-0.3 Automated blood basophil count (count/volume) 0.0 10*3/uL 0.0-0.1 Comprehensive metabolic panel - 09/09/19 03:20 Serum or plasma sodium measurement (moles/volume) 143 mmol/L 135-145 Serum or plasma potassium measurement (moles/volume) 3.7 mmol/L 3.6-5.0 Serum or plasma chloride measurement (moles/volume) 103 mmol/L 98-107 Carbon dioxide 29 mmol/L 21-32 Serum or plasma anion gap determination (moles/volume) 11 mmol/L 5-14 Serum or plasma urea nitrogen measurement (mass/volume ) 15 mg/dL 7-18 Serum or plasma creatinine measurement (mass/volume) 0.78 mg/dL 0.60-1.30 Serum or plasma urea nitrogen/creatinine mass ratio 19 NRG Serum or plasma creatinine measurement w ith calculation of estimated glomerular filtration rate > NRG Serum or plasma glucose measurement (mass/volume) 132 mg/dL 70-105 Serum or plasma calcium measurement (mass/volume) 9.1 mg/dL 8.5-10.1 Serum or plasma total bilirubin measurement (mass/volu me) 0.2 mg/dL 0.1-1.0 Serum or plasma alkaline phosphatase maryann surement (enzymatic activity/volume) 69 U/L 40-136 Serum or plasma aspartate aminotransfera se measurement (enzymatic activity/volume) 19 U/L 5-34 Serum or plasma alanine aminotransferase measurement (enzymatic activity/volume) 24 U/L 0-55 Serum or plasma protein measurement (mass/volume) 7.0 g/dL 6.4-8.2 Serum or plasma albumin measurement (mass/volume) 2.9 g/dL 3.2-4.5 CALCIUM CORRECTED 10.0 mg/dL 8.5-10.1 Lipid 1996 panel - 09/09/19 03:20 Serum or plasma triglyceride measurement (mass/volume) 88 mg/dL <150 Serum or plasma cholesterol measurement (mass/volume) 162 mg/dL < 200 Serum or plasma cholesterol in HDL measurement (mass/v olume) 49 mg/dL 40-60 Cholesterol in LDL [mass/volume] in serum or plasma by direct assay 102 mg/dL 1-129 Serum or plasma cholesterol in VLDL measurement (mass/ volume) 18 mg/dL 5-40 Serum or plasma troponin i.cardiac measu rement (mass/volume) - 09/09/19 05:35 Serum or plasma troponin i.cardiac measurement (mass/v olume) < ng/mL <0.028 Capillary blood glucose measurement by g lucometer (mass/volume) - 09/09/19 10:52 Capillary blood glucose measurement by glucometer (mas s/volume) 195 mg/dL 70-110 Complete urinalysis with reflex to cultu re - 09/09/19 11:32 Urine color determination YELLOW NRG Urine clarity determination CLEAR NR G Urine pH measurement by test strip 7 5-9 Specific gravity of urine by test strip 1.015 1.016-1.022 Urine protein assay by test strip, semi-quantitative 4+ NEGATIVE Urine glucose detection by automated test strip NE GATIVE NEGATIVE Erythrocytes detection in urine sediment by light micr oscopy NEGATIVE NEGATIVE Urine ketones detection by automated test strip NE GATIVE NEGATIVE Urine nitrite detection by test strip NEGATIVE NEGATIVE Urine total bilirubin detection by test strip NEGA TIVE NEGATIVE Urine urobilinogen measurement by automated test strip (mass/volume) NORMAL NORMAL Urine leukocyte esterase detection by dipstick 1+ NEGATIVE Automated urine sediment erythrocyte cou nt by microscopy (number/high power field) NONE NRG Automated urine sediment leukocyte count by microscopy (number/high power field) [HPF] NRG Bacteria detection in urine sediment by light microsco py MODERATE NRG Squamous epithelial cells detection in u rine sediment by light microscopy 25-50 NRG Crystals detection in urine sediment by light microsco py NONE NRG Casts detection in urine sediment by light microscopy NONE NRG Mucus detection in urine sediment by light microscopy NEGATIVE NRG Complete urinalysis with reflex to culture YES NRG Bacterial urine culture - 09/09/19 11:32 Bacterial urine culture 3 OR MORE NRG COLONY COUNT >100,000/ML NRG FTX;REPORTABLE (GRAM POSITIVE) SUGGESTING PROBABLE NRG FREE TEXT ENTRY 2 COLLECTION CONTAMINATION WITH SK IN DOREEN NRG FREE TEXT ENTRY 3 NO SUSCEPTIBILITY PERFORMED NRG Serum or plasma troponin i.cardiac measu rement (mass/volume) - 09/09/19 12:00 Serum or plasma troponin i.cardiac measurement (mass/v olume) < ng/mL <0.028 Capillary blood glucose measurement by g lucometer (mass/volume) - 09/09/19 16:10 Capillary blood glucose measurement by glucometer (mas s/volume) 131 mg/dL 70-110 Sputum Gram stain - 11/25/19 14:20 Sputum Gram stain Small amount of Mixed Bacterial Doreen NRG Bacterial sputum culture - 11/25/19 14:2 0 FREE TEXT EXTERNAL SEE COMMENTS NRG QUANTITY OF GROWTH . NRG MRSA AGAR AND FAXED 11/26/19 9:05 BY Marito ABBOTT NRG FREE TEXT ENTRY 2 PRELIM RAPID ID TEST AT [facility] 9:00 NRG FREE TEXT ENTRY 3 RML CONFIRMED ID 11/26/19 16:05 NRG CALL POSITIVES (F1 HELP) CALLED TO [facility] AT DR ESPINAL'S OFFICE NRG PBP2 PRESUMPTIVE MRSA; SCREENING AT [facility] NRG Bacterial sputum culture USUAL RESP NRG Dirithromycin susceptibility test by dis k diffusion - 11/25/19 14:20 Oxacillin susceptibility test by minimum inhibitory co ncentration > NRG Clindamycin susceptibility test by minimum inhibitory concentration R NRG Erythromycin susceptibility test by minimum inhibitory concentration > NRG Trimethoprim/sulfamethoxazole susceptibi lity test by minimum inhibitoryconcentration <= NRG Vancomycin susceptibility test by minimum inhibitory c oncentration 1 NRG Levofloxacin susceptibility test by minimum inhibitory concentration 4 NRG Rifampin susceptibility test by minimum inhibitory con centration <= NRG Cefazolin susceptibility test by minimum inhibitory co ncentration > NRG Linezolid susceptibility test by minimum inhibitory co ncentration 2 NRG Penicillin G susceptibility test by minimum inhibitory concentration > NRG Moxifloxacin susceptibility test by minimum inhibitory concentration 2 NRG Minocycline susc AC <= NRG Complete blood count (CBC) with automate d white blood cell (WBC) differential - 12/17/19 11:09 Blood leukocytes automated count (number/volume) 10.8 10*3/uL 4.3-11.0 Blood erythrocytes automated count (number/volume) 4.24 10*6/uL 4.35-5.85 Venous blood hemoglobin measurement (mass/volume) 12.6 g/dL 11.5-16.0 Blood hematocrit (volume fraction) 40 % 35-52 Automated erythrocyte mean corpuscular volume 95 [ foz_us] 80-99 Automated erythrocyte mean corpuscular h emoglobin (mass per erythrocyte) 30 pg 25-34 Automated erythrocyte mean corpuscular h emoglobin concentration measurement (mass/volume) 31 g/dL 32-36 Automated erythrocyte distribution width ratio 15. 6 % 10.0- 14.5 Automated blood platelet count (count/volume) 296 10*3/uL 130-400 Automated blood platelet mean volume measurement 11.3 [foz_us] 7.4-10.4 Automated blood neutrophils/100 leukocytes 72 % 42-75 Automated blood lymphocytes/100 leukocytes 18 % 12-44 Blood monocytes/100 leukocytes 6 % 0-12 Automated blood eosinophils/100 leukocytes 5 % 0-10 Automated blood basophils/100 leukocytes 1 % 0-10 Blood neutrophils automated count (number/volume) 7.7 10*3 1.8-7.8 Blood lymphocytes automated count (number/volume) 1.9 10*3 1.0-4.0 Blood monocytes automated count (number/volume) 0. 6 10*3 0.0-1.0 Automated eosinophil count 0.5 10*3/uL 0 .0-0.3 Automated blood basophil count (count/volume) 0.1 10*3/uL 0.0-0.1 Comprehensive metabolic panel - 12/17/19 11:09 Serum or plasma sodium measurement (moles/volume) 143 mmol/L 135-145 Serum or plasma potassium measurement (moles/volume) 4.1 mmol/L 3.6-5.0 Serum or plasma chloride measurement (moles/volume) 103 mmol/L 98-107 Carbon dioxide 28 mmol/L 21-32 Serum or plasma anion gap determination (moles/volume) 12 mmol/L 5-14 Serum or plasma urea nitrogen measurement (mass/volume ) 12 mg/dL 7-18 Serum or plasma creatinine measurement (mass/volume) 0.84 mg/dL 0.60-1.30 Serum or plasma urea nitrogen/creatinine mass ratio 14 NRG Serum or plasma creatinine measurement w ith calculation of estimated glomerular filtration rate > NRG Serum or plasma glucose measurement (mass/volume) 114 mg/dL 70-105 Serum or plasma calcium measurement (mass/volume) 9.6 mg/dL 8.5-10.1 Serum or plasma total bilirubin measurement (mass/volu me) 0.3 mg/dL 0.1-1.0 Serum or plasma alkaline phosphatase maryann surement (enzymatic activity/volume) 58 U/L 40-136 Serum or plasma aspartate aminotransfera se measurement (enzymatic activity/volume) 14 U/L 5-34 Serum or plasma alanine aminotransferase measurement (enzymatic activity/volume) 7 U/L 0-55 Serum or plasma protein measurement (mass/volume) 8.2 g/dL 6.4-8.2 Serum or plasma albumin measurement (mass/volume) 3.6 g/dL 3.2-4.5 CALCIUM CORRECTED 9.9 mg/dL 8.5-10.1 Magnesium - 12/17/19 11:09 Magnesium 2.0 mg/dL 1.6-2.4 Serum or plasma lithium measurement (mol es/volume) - 12/17/19 11:09 BNP PT 279.1 pg/mL <100.0 Serum or plasma troponin i.cardiac measu rement (mass/volume) - 12/17/19 11:09 Serum or plasma troponin i.cardiac measurement (mass/v olume) < ng/mL <0.028 Myoglobin, serum - 12/17/19 11:09 Myoglobin, serum 47.1 ng/mL 10.0-92.0 PT panel in platelet poor plasma by coag ulation assay - 12/17/19 11:49 Prothrombin time (PT) in platelet poor plasma by coagu lation assay 17.8 s 12.2-14.7 INR in platelet poor plasma or blood by coagulation as say 1.4 0.8-1.4 Activated partial thromboplastin time (a PTT) in platelet poor plasma bycoagulation assay - 12/17/19 11:49 Activated partial thromboplastin time (a PTT) in platelet poor plasma bycoagulation assay 36 s 24-35 Capillary blood glucose measurement by g lucometer (mass/volume) - 01/23/20 16:28 Capillary blood glucose measurement by glucometer (mas s/volume) 124 mg/dL 70-110 Serum or plasma troponin i.cardiac measu rement (mass/volume) - 12/17/19 18:11 Serum or plasma troponin i.cardiac measurement (mass/v olume) < ng/mL <0.028 Capillary blood glucose measurement by g lucometer (mass/volume) - 12/17/19 20:03 Capillary blood glucose measurement by glucometer (mas s/volume) 124 mg/dL 70-110 Complete blood count (CBC) with automate d white blood cell (WBC) differential - 12/18/19 04:55 Blood leukocytes automated count (number/volume) 9.1 10*3/uL 4.3-11.0 Blood erythrocytes automated count (number/volume) 3.66 10*6/uL 4.35-5.85 Venous blood hemoglobin measurement (mass/volume) 10.6 g/dL 11.5-16.0 Blood hematocrit (volume fraction) 34 % 35-52 Automated erythrocyte mean corpuscular volume 94 [ foz_us] 80-99 Automated erythrocyte mean corpuscular h emoglobin (mass per erythrocyte) 29 pg 25-34 Automated erythrocyte mean corpuscular h emoglobin concentration measurement (mass/volume) 31 g/dL 32-36 Automated erythrocyte distribution width ratio 15. 3 % 10.0- 14.5 Automated blood platelet count (count/volume) 273 10*3/uL 130-400 Automated blood platelet mean volume measurement 11.4 [foz_us] 7.4-10.4 Automated blood neutrophils/100 leukocytes 65 % 42-75 Automated blood lymphocytes/100 leukocytes 23 % 12-44 Blood monocytes/100 leukocytes 7 % 0-12 Automated blood eosinophils/100 leukocytes 4 % 0-10 Automated blood basophils/100 leukocytes 0 % 0-10 Blood neutrophils automated count (number/volume) 5.9 10*3 1.8-7.8 Blood lymphocytes automated count (number/volume) 2.1 10*3 1.0-4.0 Blood monocytes automated count (number/volume) 0. 7 10*3 0.0-1.0 Automated eosinophil count 0.4 10*3/uL 0 .0-0.3 Automated blood basophil count (count/volume) 0.0 10*3/uL 0.0-0.1 Comprehensive metabolic panel - 01/24/20 04:55 Serum or plasma sodium measurement (moles/volume) 143 mmol/L 135-145 Serum or plasma potassium measurement (moles/volume) 4.1 mmol/L 3.6-5.0 Serum or plasma chloride measurement (moles/volume) 103 mmol/L 98-107 Carbon dioxide 28 mmol/L 21-32 Serum or plasma anion gap determination (moles/volume) 12 mmol/L 5-14 Serum or plasma urea nitrogen measurement (mass/volume ) 13 mg/dL 7-18 Serum or plasma creatinine measurement (mass/volume) 0.91 mg/dL 0.60-1.30 Serum or plasma urea nitrogen/creatinine mass ratio 14 NRG Serum or plasma creatinine measurement w ith calculation of estimated glomerular filtration rate 60 NRG Serum or plasma glucose measurement (mass/volume) 69 mg/dL 70-105 Serum or plasma calcium measurement (mass/volume) 9.0 mg/dL 8.5-10.1 Serum or plasma total bilirubin measurement (mass/volu me) 0.3 mg/dL 0.1-1.0 Serum or plasma alkaline phosphatase amryann surement (enzymatic activity/volume) 48 U/L 40-136 Serum or plasma aspartate aminotransfera se measurement (enzymatic activity/volume) 20 U/L 5-34 Serum or plasma alanine aminotransferase measurement (enzymatic activity/volume) 8 U/L 0-55 Serum or plasma protein measurement (mass/volume) 6.9 g/dL 6.4-8.2 Serum or plasma albumin measurement (mass/volume) 2.8 g/dL 3.2-4.5 CALCIUM CORRECTED 10.0 mg/dL 8.5-10.1 Lipid 1996 panel - 12/18/19 04:55 Serum or plasma triglyceride measurement (mass/volume) 75 mg/dL <150 Serum or plasma cholesterol measurement (mass/volume) 131 mg/dL < 200 Serum or plasma cholesterol in HDL measurement (mass/v olume) 49 mg/dL 40-60 Cholesterol in LDL [mass/volume] in serum or plasma by direct assay 68 mg/dL 1-129 Serum or plasma cholesterol in VLDL measurement (mass/ volume) 15 mg/dL 5-40 Capillary blood glucose measurement by g lucometer (mass/volume) - 12/18/19 06:09 Capillary blood glucose measurement by glucometer (mas s/volume) 68 mg/dL 70-110 Capillary blood glucose measurement by g lucometer (mass/volume) - 12/18/19 11:07 Capillary blood glucose measurement by glucometer (mas s/volume) 152 mg/dL 70-110 Complete urinalysis with reflex to cultu re - 01/22/20 17:27 Urine color determination YELLOW NRG Urine clarity determination CLEAR NR G Urine pH measurement by test strip 8.0 5-9 Specific gravity of urine by test strip 1.025 1.016-1.022 Urine protein assay by test strip, semi-quantitative 3+ NEGATIVE Urine glucose detection by automated test strip NE GATIVE NEGATIVE Erythrocytes detection in urine sediment by light micr oscopy NEGATIVE NEGATIVE Urine ketones detection by automated test strip NE GATIVE NEGATIVE Urine nitrite detection by test strip NEGATIVE NEGATIVE Urine total bilirubin detection by test strip NEGA TIVE NEGATIVE Urine urobilinogen measurement by automated test strip (mass/volume) 0.2 mg/dL < = 1.0 Urine leukocyte esterase detection by dipstick TRA CE NEGATIVE Automated urine sediment erythrocyte cou nt by microscopy (number/high power field) NONE NRG Automated urine sediment leukocyte count by microscopy (number/high power field) [HPF] NRG Bacteria detection in urine sediment by light microsco py TRACE NRG Squamous epithelial cells detection in u rine sediment by light microscopy 5-10 NRG Crystals detection in urine sediment by light microsco py NONE NRG Casts detection in urine sediment by light microscopy NONE NRG Mucus detection in urine sediment by light microscopy NEGATIVE NRG Complete urinalysis with reflex to culture YES NRG Bacterial urine culture - 01/22/20 17:27 Bacterial urine culture [id number] NRG COLONY COUNT 30,000 CFU/ML NRG FTX;REPORTABLE SUSCEPTIBILITY REPORTED 3- 114 3 NRG FREE TEXT ENTRY 2 PRELIM RAPID ID TEST AT [facility] 14:45 NRG FREE TEXT ENTRY 3 RML CONFIRMED ID 01/24/20 14:05 NRG Dirithromycin susceptibility test by dis k diffusion - 01/22/20 17:27 Vancomycin susceptibility test by minimum inhibitory c oncentration 1 NRG Levofloxacin susceptibility test by minimum inhibitory concentration > NRG Ampicillin susceptibility test by minimum inhibitory c oncentration 4 NRG Nitrofurantoin susceptibility test by az nimum inhibitory concentration <= NRG Linezolid susceptibility test by minimum inhibitory co ncentration <= NRG Daptomycin susc AC 2 NRG Complete blood count (CBC) with automate d white blood cell (WBC) differential - 01/22/20 17:39 Blood leukocytes automated count (number/volume) 11.6 10*3/uL 4.3-11.0 Blood erythrocytes automated count (number/volume) 4.40 10*6/uL 4.35-5.85 Venous blood hemoglobin measurement (mass/volume) 12.6 g/dL 11.5-16.0 Blood hematocrit (volume fraction) 41 % 35-52 Automated erythrocyte mean corpuscular volume 92 [ foz_us] 80-99 Automated erythrocyte mean corpuscular h emoglobin (mass per erythrocyte) 29 pg 25-34 Automated erythrocyte mean corpuscular h emoglobin concentration measurement (mass/volume) 31 g/dL 32-36 Automated erythrocyte distribution width ratio 15. 0 % 10.0- 14.5 Automated blood platelet count (count/volume) 263 10*3/uL 130-400 Automated blood platelet mean volume measurement 12.0 [foz_us] 7.4-10.4 Automated blood neutrophils/100 leukocytes 71 % 42-75 Automated blood lymphocytes/100 leukocytes 21 % 12-44 Blood monocytes/100 leukocytes 5 % 0-12 Automated blood eosinophils/100 leukocytes 4 % 0-10 Automated blood basophils/100 leukocytes 0 % 0-10 Blood neutrophils automated count (number/volume) 8.2 10*3 1.8-7.8 Blood lymphocytes automated count (number/volume) 2.4 10*3 1.0-4.0 Blood monocytes automated count (number/volume) 0. 6 10*3 0.0-1.0 Automated eosinophil count 0.4 10*3/uL 0 .0-0.3 Automated blood basophil count (count/volume) 0.0 10*3/uL 0.0-0.1 Whole blood basic metabolic panel - 12/27 07/14 17:39 Serum or plasma sodium measurement (moles/volume) 141 mmol/L 135-145 Serum or plasma potassium measurement (moles/volume) 4.0 mmol/L 3.6-5.0 Serum or plasma chloride measurement (moles/volume) 98 mmol/L 98-107 Carbon dioxide 32 mmol/L 21-32 Serum or plasma anion gap determination (moles/volume) 11 mmol/L 5-14 Serum or plasma urea nitrogen measurement (mass/volume ) 14 mg/dL 7-18 Serum or plasma creatinine measurement (mass/volume) 1.29 mg/dL 0.60-1.30 Serum or plasma urea nitrogen/creatinine mass ratio 11 NRG Serum or plasma creatinine measurement w ith calculation of estimated glomerular filtration rate 40 NRG Serum or plasma glucose measurement (mass/volume) 79 mg/dL 70-105 Serum or plasma calcium measurement (mass/volume) 9.7 mg/dL 8.5-10.1 Complete blood count (CBC) with automate d white blood cell (WBC) differential - 05/12/20 15:18 Blood leukocytes automated count (number/volume) 14.3 10*3/uL 4.3-11.0 Blood erythrocytes automated count (number/volume) 4.41 10*6/uL 4.35-5.85 Venous blood hemoglobin measurement (mass/volume) 13.1 g/dL 11.5-16.0 Blood hematocrit (volume fraction) 41 % 35-52 Automated erythrocyte mean corpuscular volume 92 [ foz_us] 80-99 Automated erythrocyte mean corpuscular h emoglobin (mass per erythrocyte) 30 pg 25-34 Automated erythrocyte mean corpuscular h emoglobin concentration measurement (mass/volume) 32 g/dL 32-36 Automated erythrocyte distribution width ratio 16. 6 % 10.0- 14.5 Automated blood platelet count (count/volume) 269 10*3/uL 130-400 Automated blood platelet mean volume measurement 11.7 [foz_us] 7.4-10.4 Automated blood neutrophils/100 leukocytes 86 % 42-75 Automated blood lymphocytes/100 leukocytes 10 % 12-44 Blood monocytes/100 leukocytes 3 % 0-12 Automated blood eosinophils/100 leukocytes 1 % 0-10 Automated blood basophils/100 leukocytes 0 % 0-10 Blood neutrophils automated count (number/volume) 12.4 10*3 1.8-7.8 Blood lymphocytes automated count (number/volume) 1.4 10*3 1.0-4.0 Blood monocytes automated count (number/volume) 0. 4 10*3 0.0-1.0 Automated eosinophil count 0.1 10*3/uL 0 .0-0.3 Automated blood basophil count (count/volume) 0.1 10*3/uL 0.0-0.1 Comprehensive metabolic panel - 05/12/20 15:18 Serum or plasma sodium measurement (moles/volume) 141 mmol/L 135-145 Serum or plasma potassium measurement (moles/volume) 4.4 mmol/L 3.6-5.0 Serum or plasma chloride measurement (moles/volume) 101 mmol/L 98-107 Carbon dioxide 29 mmol/L 21-32 Serum or plasma anion gap determination (moles/volume) 11 mmol/L 5-14 Serum or plasma urea nitrogen measurement (mass/volume ) 15 mg/dL 7-18 Serum or plasma creatinine measurement (mass/volume) 0.84 mg/dL 0.60-1.30 Serum or plasma urea nitrogen/creatinine mass ratio 18 NRG Serum or plasma creatinine measurement w ith calculation of estimated glomerular filtration rate > NRG Serum or plasma glucose measurement (mass/volume) 82 mg/dL 70-105 Serum or plasma calcium measurement (mass/volume) 9.6 mg/dL 8.5-10.1 Serum or plasma total bilirubin measurement (mass/volu me) 0.3 mg/dL 0.1-1.0 Serum or plasma alkaline phosphatase maryann surement (enzymatic activity/volume) 57 U/L 40-136 Serum or plasma aspartate aminotransfera se measurement (enzymatic activity/volume) 31 U/L 5-34 Serum or plasma alanine aminotransferase measurement (enzymatic activity/volume) 13 U/L 0-55 Serum or plasma protein measurement (mass/volume) 8.4 g/dL 6.4-8.2 Serum or plasma albumin measurement (mass/volume) 3.4 g/dL 3.2-4.5 CALCIUM CORRECTED 10.1 mg/dL 8.5-10.1 PT panel in platelet poor plasma by coag ulation assay - 05/12/20 15:18 Prothrombin time (PT) in platelet poor plasma by coagu lation assay 16.6 s 12.2-14.7 INR in platelet poor plasma or blood by coagulation as say 1.3 0.8-1.4 Manual absolute plasma cell count - 04/25 07/14 15:18 Blood monocytes/100 leukocytes 3 % NRG Manual blood segmented neutrophils/100 leukocytes 79 % NRG Blood band neutrophils/100 leukocytes 6 % NRG Manual blood lymphocytes/100 leukocytes 12 % NRG Blood erythrocyte morphology finding identification NORMAL NRG Serum or plasma lithium measurement (mol es/volume) - 05/12/20 15:18 BNP PT 109.4 pg/mL <100.0 Complete urinalysis with reflex to cultu re - 05/12/20 15:26 Urine color determination YELLOW NRG Urine clarity determination SL CLOUDY N RG Urine pH measurement by test strip 7.0 5-9 Specific gravity of urine by test strip 1.010 1.016-1.022 Urine protein assay by test strip, semi-quantitative 2+ NEGATIVE Urine glucose detection by automated test strip NE GATIVE NEGATIVE Erythrocytes detection in urine sediment by light micr oscopy TRACE-I NEGATIVE Urine ketones detection by automated test strip NE GATIVE NEGATIVE Urine nitrite detection by test strip NEGATIVE NEGATIVE Urine total bilirubin detection by test strip NEGA TIVE NEGATIVE Urine urobilinogen measurement by automated test strip (mass/volume) 0.2 mg/dL < = 1.0 Urine leukocyte esterase detection by dipstick NEG ATIVE NEGATIVE Automated urine sediment erythrocyte cou nt by microscopy (number/high power field) RARE NRG Automated urine sediment leukocyte count by microscopy (number/high power field) NONE NRG Bacteria detection in urine sediment by light microsco py TRACE NRG Crystals detection in urine sediment by light microsco py NONE NRG Casts detection in urine sediment by light microscopy NONE NRG Mucus detection in urine sediment by light microscopy NEGATIVE NRG Complete urinalysis with reflex to culture NO NRG Arterial blood gas measurement - 0 17:04 Blood pCO2 55 mm[Hg] 35-45 Blood pO2 68 mm[Hg] 79-93 Arterial blood bicarbonate measurement (moles/volume) 34 mmol/L 23-27 Arterial blood base excess by calculation 8.5 mmol /L -2.5-2.5 Arterial blood oxygen saturation measurement 92 % 94-100 * Inhaled oxygen flow rate ROOM AIR NRG Arterial blood pH measurement with patient temperature correction 7.40 7.37-7.43 Arterial blood carbon dioxide, total measurement (mole s/volume) 35.2 mmol/L 21.0-31.0 Body site RT RAD NRG Assessment of wrist artery patency prior to arterial p uncture POS NRG Setting of ventilation mode NO NR G Measurement of body temperature 98.3 NRG Capillary blood glucose measurement by g lucometer (mass/volume) - 05/13/20 07:56 Capillary blood glucose measurement by glucometer (mas s/volume) 223 mg/dL 70-110 Encounters ACCT No. Visit Date/Time Discharge Status Pt. Type Provider Facility Loc./Unit Complaint [id number] 01/03/2018 14:30:00 01/03/2018 23:59:5 9 CLS [facility] [id number] 05/03/2020 10:15:00 23:59:59 CLS Outpatient FAITH TURK V ia [facility] ONC [id number] 02/04/2020 10:50:00 12:42:00 DIS Outpatient AGATHA ESPINAL [employer] HE[employer] DIRECTOR Via [facility] REHAB NECK PAIN;LYMPH EDEMA SEVERE R LE [id number] 02/01/2020 10:50:00 11:01:00 DIS Outpatient AGATHA ESPINAL COMMUNITY HEALTH DIRECTOR Via [facility] SDC CHRONIC UTI [id number] 01/25/2020 12:48:00 23:59:59 CLS Outpatient AGATHA ESPINAL COMMUNITY HEALTH DIRECTOR Via [facility] RAD PELVIC PAIN [id number] 01/22/2020 16:57:00 19:31:00 DIS Emergency SIS ZUÑIGA MD Via [facility] ER DRY MOUTH,RT SI DE PAIN, PAINFULL URINATION [id number] 12/17/2019 13:00:00 12:13:00 DIS Inpatient DARIN MOULTON, KELY Aleman Via [facility] 4TH CHF EXACERBATION [id number] 11/25/2019 10:48:00 15:00:00 DIS Emergency ЮЛИЯ PORTILLO Via [facility] ER COLD LIKE SYMPTOMS [id number] 10/15/2019 09:13:00 23:59:59 CLS Outpatient AGATHA ESPINAL COMMUNITY HEALTH DIRECTOR Via [facility] RAD INTERSTITIAL CY STITIS [id number] 09/08/2019 22:40:00 17:04:00 DIS Inpatient SANGEETA MARSHALL MD Via [facility] ICU CHEST PAIN [id number] 05/05/2019 07:54:00 00:01:00 DIS Outpatient ROSALEE FAITH Ratliff V ia [facility] ONC [id number] 06/17/2019 14:19:00 23:59:59 CLS Preadmit ROSALEE FAITH Ratliff Via [facility] RAD SCREENING [id number] 05/01/2019 12:27:00 23:59:59 CLS Outpatient ERVIN OSBORNE MD Via [facility] RAD LT RENAL CYST [id number] 02/24/2019 12:56:00 23:59:59 CLS Outpatient JOSELUIS BORGES Via [facility] RAD SCREENING [id number] 02/20/2019 11:09:00 14:40:00 DIS Outpatient ARI GASTELUM MD Via [facility] ENDO DYSPHAGIA [id number] 02/19/2019 05:39:00 10:11:00 DIS Outpatient ARI GASTELUM MD Via [facility] PREOP EGD [id number] 02/16/2019 12:01:00 13:56:00 DIS Emergency KIMO KUMAR MD Via [facility] ER TROUBLE SWALLOWING [id number] 01/11/2019 21:55:00 01:55:00 DIS Emergency NELLY SMITH DO a [facility] ER COPD [id number] 12/29/2018 00:33:00 04:35:00 DIS Emergency KIMO KUMAR MD Via [facility] ER CP [id number] 12/03/2018 05:43:00 09:07:00 DIS Emergency BRIAN HENDRICKSON MD Via [facility] ER NOSE BLEED [id number] 09/22/2018 07:07:00 23:59:59 CLS Outpatient JIN PARR Via [facility] CARD AF,BENIGN E SSESNTIAL TREMOR [id number] 09/16/2018 16:04:00 018 19:11:00 DIS Emergency JAYE MENG APRN Via [facility] ER GENERALIZED WEAKNESS [id number] 09/12/2018 12:29:00 018 14:20:00 DIS Inpatient YANG VALERA MD Via [facility] 4TH CHEST PAIN [id number] 08/21/2018 12:32:00 018 23:59:59 CLS Outpatient JOSELUIS BORGES Via [facility] RAD ABNORMAL SCREEN ING MAMMOGRAM [id number] 07/11/2018 08:25:00 018 12:18:00 DIS Outpatient YANG VALERA MD Via [facility] ENDO COLON SURVIELLANCE COLO N POLYPS [id number] 06/19/2018 15:54:00 018 18:30:00 DIS Emergency DAVIS THOMAS Via [facility] ER DIABETES [id number] 06/16/2018 05:31:00 018 15:35:00 DIS Outpatient YANG VALERA MD Via [facility] PREOP COLONOSCOPY [id number] 05/23/2018 13:51:00 018 16:41:00 DIS Emergency JAYE MENG APRN Via [facility] ER DROWSINESS/BS ISSUES [id number] 05/06/2018 12:55:00 018 23:59:59 CLS Outpatient FAITH TURK V ia [facility] ONC [id number] 04/23/2018 10:14:00 018 23:59:59 CLS Outpatient ERVIN OSBORNE MD Via [facility] RAD RV AML,LV RENAL CYST [id number] 04/21/2018 11:35:00 018 12:18:00 DIS Inpatient SANGEETA MARSHALL MD Via [facility] 4TH CP [id number] 03/28/2018 08:39:00 018 23:59:59 CLS Outpatient DANY ESPINAL DO Via [facility] RAD REFACTORY SINUS ITIS [id number] 03/16/2018 20:05:00 22:59:00 DIS Emergency NELLY SMITH DO [facility] ER NOSE SURGERY SATURDAY,HORTENCIA EMMA FLUIDS [id number] 03/14/2018 06:57:00 018 11:30:00 DIS Out[facility] [id number] 03/13/2018 14:51:00 018 15:26:00 DIS Outpatient CORBY SULTANA MD Via [facility] PREOP EPISTAXIS [id number] 03/11/2018 09:59:00 018 12:45:00 DIS Emergency MADHAVI MOULTON, BRIAN Dangelo Via [facility] ER VOMITING,TROUBL E BREATHING [id number] 03/08/2018 17:40:00 018 17:50:00 DIS Emergency DEEPA MOULTON, YANG Devi Via [facility] ER WOUND CARE NO CHARGE [id number] 03/08/2018 09:26:00 018 11:30:00 DIS Emergency DEEPA MOULTON, YANG Devi Via [facility] ER SINUS INFECTION,NOSE BL EEDS,SOB [id number] 02/10/2018 12:48:00 018 23:59:59 CLS Outpatient JOSELUIS BORGES Via [facility] RAD ABNORMAL SCREEN ING [id number] 09/13/2017 21:00:00 017 15:45:00 DIS Inpatient DANY ESPINAL DO Via [facility] ICU CHEST PAIN,PATCH SETTER EDVIN ATRIAL FIB [id number] 09/04/2017 11:43:00 017 16:40:00 DIS Outpatient FLAKITA MOULTON, ARVIND Aleman Via [facility] SDC TEMPORAL ARTERITIS/SEV ERE HEADACHE [id number] 08/09/2017 10:23:00 017 23:59:59 CLS Outpatient FAITH TURK Evy V ia [facility] RAD R92.8 [id number] 08/08/2017 00:25:00 017 23:59:59 CLS Preadmit FAITH TURK Via [facility] ONC [id number] 05/09/2017 12:00:00 017 00:01:00 DIS Outpatient EDNA TURKSUJATA Ratliff V ia [facility] ONC [id number] 07/25/2017 17:31:00 017 23:59:59 CLS Outpatient MIREILLE CHAUHANKO Via [facility] RAD BACK PAIN [id number] 05/31/2017 06:27:00 017 10:05:00 DIS Outpatient YANG VALERA MD Via [facility] ENDO RECTAL BLEEDING [id number] 05/29/2017 05:34:00 017 15:35:00 DIS Outpatient YANG VALERA MD Via [facility] PREOP COLONOSCOPY [id number] 05/09/2017 15:12:00 017 23:59:59 CLS Preadmit FAITH TURK Evy Via [facility] RAD SCREENING Z12.31 [id number] 04/23/2017 14:02:00 017 23:59:59 CLS Outpatient ERVIN OSBORNE MD Via [facility] RAD RT SM,LT RENAL CYST [id number] 04/12/2017 08:15:00 017 23:59:59 CLS Outpatient AGATHA ESPINAL COMMUNITY HEALTH DIRECTOR Via [facility] RAD ABDOMINAL/PELVI C PAIN [id number] 03/28/2017 10:22:00 017 23:59:59 CLS Outpatient FRANCK LARSON DPM Via [facility] RAD DVT [id number] 03/13/2017 06:00:00 017 11:25:00 DIS Outpatient FRANCK LARSON DPM Via [facility] SDC EQUINUS DEFORMITY RLE [id number] 03/06/2017 09:10:00 017 10:27:00 DIS Outpatient BLALUIZA PAL, FRANCK Stanton Via [facility] PREOP EQUINUS DEFORMITY RLE [id number] 03/05/2017 00:09:00 017 11:15:00 DIS Inpatient SANGEETA MARSHALL MD Via [facility] ICU CHEST PAIN [id number] 02/06/2017 11:50:00 017 23:59:59 CLS Outpatient SHEELA BANUELOS MD Via [facility] CARD AF,CHEST PAIN,HTN,HLP [id number] 08/14/2016 07:46:00 016 23:59:59 CLS Outpatient JOSELUIS BORGESP Via [facility] RAD ABNORMAL SCREEN ING MAMMO [id number] 08/07/2016 10:57:00 016 23:59:59 CLS Outpatient JOSELUIS BORGES COMMUNITY HEALTH DIRECTOR Via [facility] RAD SCREENING,CARCI NOMA OF RT FEMALE BREAST [id number] 05/28/2016 19:14:00 016 21:28:00 DIS Emergency JAYE MENG WILL CALL ORDER CLERK Via [facility] ER CHEST PAIN [id number] 05/22/2016 11:13:00 016 23:59:59 CLS Outpatient DANY ESPINAL DO Via [facility] RAD F02.81 [id number] 05/10/2016 12:33:00 016 23:59:59 CLS Outpatient JOSELUIS BORGES COMMUNITY HEALTH DIRECTOR Via [facility] ONC [id number] 03/19/2016 01:26:00 016 13:45:00 DIS Inpatient SANGEETA MARSHALL MD Via [facility] 4TH AMS; SUSPENDED UTI; FEV ER [id number] 03/08/2016 21:09:00 016 12:07:00 DIS Inpatient JOSE ELIAS NG DO, V ia [facility] 4TH SEPSIS,UTI,AMS [id number] 03/08/2016 01:39:00 03:44:00 DIS Emergency SARAH DO, NELLY K Vi a [facility] ER AMS,UTI,R LEG PAIN [id number] 03/01/2016 12:00:00 23:59:59 CLS Outpatient DANY ESPINAL DO Via [facility] HH POSSIBLE UTI [id number] 02/16/2016 14:52:00 23:59:59 CLS Outpatient DANY ESPINAL DO Via [facility] UTI, HYPOTHYROI DISM [id number] 01/30/2016 17:30:00 14:30:00 DIS Inpatient SANGEETA MARSHALL MD Via [facility] 4TH UTI,CONFUSION [id number] 01/28/2016 18:13:00 23:59:59 CLS Outpatient AGATHA ESPINAL [employer] DIRECTOR Via [facility] LAB UTI [id number] 11/15/2015 10:07:00 23:59:59 CLS Outpatient MEGHA PANDA MD Via [facility] GLC CELLULITIS, VANCO IV [id number] 10/15/2015 15:55:00 16:30:00 DIS Inpatient MEGHA PANDA MD Via [facility] 4TH EXTENSIVE CELLULITIS RT HIP,FEVER,S/P RT HIP IF [id number] 09/15/2015 14:20:00 14:37:00 DIS Inpatient MEGHA MATIAS MD [facility] 4TH HARDWARE FAILURE [id number] 09/08/2015 13:29:00 13:30:00 DIS Inpatient VENUS PARTIDA MD Via [facility] IRF RIGHT HIP FRACTURE, VIVEK SED [id number] 09/03/2015 18:45:00 11:15:00 DIS Inpatient MEGHA PANDA MD Via [facility] 4TH RIGHT HIP FRACTURE, VIVEK SED [id number] 07/05/2015 10:30:00 23:59:59 CLS Outpatient MEGHA PANDA MD Via [facility] DIABETES,CHRONIC DIURET IC USE [id number] 06/24/2015 10:40:00 23:59:59 CLS Outpatient MEGHA PANDA MD Via [facility] DM, HYPOPOTASSEMIA [id number] 06/17/2015 12:00:00 23:59:59 CLS Outpatient MEGHA PANDA MD Via [facility] HYPONATREMIA [id number] 05/20/2015 14:13:00 09:42:00 DIS Outpatient RAVEN LEO APRN Via [facility] REHAB MUSCULOSKELETAL CHEST AND SHOULDER PAIN [id number] 06/14/2015 11:45:00 14:36:00 DIS Outpatient JIN PARR Via [facility] CARD AFIB,HTN,SY NCOPE [id number] 06/08/2015 21:25:00 13:15:00 DIS Inpatient MEGHA PANDA MD Via [facility] SURGICAL HYPONATREMIA, AMS, WEAK NESS [id number] 05/25/2015 07:00:00 14:20:00 DIS Inpatient MEGHA PANDA MD Via [facility] SURGICAL FALL/CONTUSION [id number] 05/18/2015 14:02:00 23:59:59 CLS Outpatient FAITH TURK [facility] RAD BREAST CA [id number] 05/12/2015 13:11:00 23:59:59 CLS Outpatient FAITH TURK [facility] ONC [id number] 05/03/2015 13:04:00 23:59:59 CLS Outpatient ERVIN OSBORNE MD Via [facility] RAD LEFT RENAL CYST [id number] 04/08/2015 21:00:00 13:25:00 DIS Inpatient MEGHA PANDA MD Via [facility] ICU CHEST PAIN [id number] 01/10/2015 10:18:00 23:59:59 CLS Outpatient LAKISHA MOULTON, SHEELA Short Via [facility] REHAB LEG AND BACK PAIN [id number] 11/29/2014 09:14:00 23:59:59 CLS Outpatient MEGHA PANDA MD Via [facility] RAD F/U CHF [id number] 11/16/2014 10:19:00 12:59:00 DIS Emergency DANY HOLLIS DO Via [facility] ER CHEST PAINS [id number] 11/14/2014 15:42:00 16:15:00 DIS Inpatient MEGHA PANDA MD Via [facility] ICU CHEST AND SHOULDER PAIN [id number] 11/01/2014 14:09:00 23:59:59 CLS Outpatient ERVIN OSBORNE MD Via [facility] RAD LEFT RENAL CYST [id number] 10/28/2014 14:49:00 23:59:59 CLS Outpatient RAVEN LEO APRN Via [facility] RAD SOB,BLE PAIN [id number] 10/14/2014 12:15:00 23:59:59 CLS Outpatient MEGHA PANDA MD Via [facility] RAD COUGH [id number] 07/18/2014 12:07:00 23:59:59 CLS Outpatient [id number] 06/03/2014 21:01:00 07:38:00 DIS Outpatient CORBY SULTANA MD Via [facility] SLEEP MADELYN [id number] 06/01/2014 15:12:00 23:59:59 CLS Outpatient FAITH TURK [facility] RAD SCREENING [id number] 05/13/2014 13:29:00 014 23:59:59 CLS Outpatient FAITH TURK [facility] ONC [id number] 05/04/2014 13:59:00 06/10/2 014 23:59:59 CLS Outpatient ERVIN OSBORNE MD Via [facility] RAD LEFT RENAL CYST,RAML [id number] 12/16/2013 07:13:00 014 10:35:00 DIS Outpatient ARI GASTELUM MD Via [facility] SDC DYSPHAGIA [id number] 12/09/2013 07:36:00 014 23:59:59 CLS Outpatient ARI GASTELUM MD Via [facility] PREOP DYSPHAGIA [id number] 12/03/2013 13:16:00 014 23:59:59 CLS Outpatient JOSELUIS BORGES Via [facility] RAD SIX MONTH FOLLO W-UP [id number] 11/04/2013 14:02:00 23:59:59 CLS Outpatient ERVIN OSBORNE MD Via [facility] RAD LT RENAL CYST [id number] 06/01/2013 14:05:00 23:59:59 CLS Outpatient FAITH TURK [facility] RAD FOLLOW-UP,HX CA BREAST [id number] 04/28/2013 13:07:00 23:59:59 CLS Outpatient ERVIN OSBORNE MD Via [facility] RAD RENAL MASSES [id number] 03/23/2013 14:02:00 23:59:59 CLS Outpatient MEGHA PANDA MD Via [facility] LAB [id number] 03/23/2013 13:33:00 23:59:59 CLS Outpatient FAITH TURK [facility] ONC [id number] 05/13/2020 08:03:00 Document Registration [id number] 05/12/2020 15:41:00 Document Registration [id number] 07/09/2018 14:01:00 Document Registration [id number] 04/17/2016 09:14:00 Document Registration [id number] 09/06/2015 17:01:00 Document Registration [id number] 11/29/2014 09:14:00 Document Registration [id number] 01/01/2013 18:45:00 Document Registration [id number] 12/28/2012 17:05:00 Document Registration [id number] 12/01/2012 13:35:00 Document Registration [id number] 11/28/2012 12:10:00 Document Registration [id number] 09/16/2012 19:40:00 Document Registration [id number] 05/13/2012 05:38:00 Document Registration [id number] 05/08/2012 11:44:00 Document Registration [id number] 05/06/2012 12:30:00 Document Registration [id number] 04/29/2012 07:26:00 Document Registration [id number] 04/08/2012 13:03:00 Document Registration [id number] 03/26/2012 15:10:00 Document Registration [id number] 03/24/2012 10:29:00 Document Registration [id number] 12/17/2011 07:36:00 Document Registration [id number] 09/21/2011 21:48:00 Document Registration [id number] 09/06/2011 05:38:00 Document Registration [id number] 09/04/2011 09:37:00 Document Registration [id number] 07/18/2011 08:49:00 Document Registration [id number] 07/11/2011 06:30:00 Document Registration [id number] 04/30/2011 18:01:00 Document Registration [id number] 04/25/2011 13:30:00 Document Registration [id number] 03/12/2011 13:01:00 Document Registration [id number] 03/02/2011 13:14:00 Document Registration [id number] 02/19/2011 12:40:00 Document Registration [id number] 07/07/2010 15:10:00 Document Registration [id number] 04/07/2010 16:16:00 Document Registration [id number] 03/17/2010 15:02:00 Document Registration [id number] 03/07/2010 14:00:00 Document Registration [id number] 03/02/2010 12:39:00 Document Registration [id number] 03/02/2010 12:35:00 Document Registration [id number] 02/23/2010 09:02:00 Document Registration [id number] 02/13/2010 14:39:00 Document Registration [id number] 12/07/2009 10:08:00 Document Registration [id number] 12/07/2009 10:07:00 Document Registration [id number] 10/07/2009 12:26:00 Document Registration [id number] 09/28/2009 10:28:00 Document Registration [id number] 09/21/2009 11:39:00 Document Registration [id number] 08/30/2009 00:00:00 Document Registration [id number] 08/23/2009 13:57:00 Document Registration [id number] 08/17/2009 13:00:00 Document Registration [id number] 08/12/2009 12:31:00 Document Registration
[2020-05-13 08:21] LABS: ALBUMIN 3.3 GM/DL (3.2-4.5); CHLORIDE 99 MMOL/L (98-107); POTASSIUM 3.8 MMOL/L (3.6-5.0); SODIUM 140 MMOL/L (135-145)
[2020-05-13 08:21] LABS: BACTERIA,URINE MODERATE /HPF; WBC,URINE 25-50 /HPF
[2020-05-13 08:22] LABS: CALCIUM 9.5 MG/DL (8.5-10.1)
[2020-05-13 08:24] LABS: GLUCOSE 224 MG/DL (70-105); TOTAL PROTEIN 7.6 GM/DL (6.4-8.2)
[2020-05-13 08:25] LABS: CARBON DIOXIDE 31 MMOL/L (21-32)
[2020-05-13 08:26] LABS: BILIRUBIN,TOTAL 0.3 MG/DL (0.1-1.0); ERYTHROCYTE SEDIMENTATION RATE 70 MM/HR (0-30)
[2020-05-13 08:27] LABS: ALKALINE PHOSPHATASE 60 U/L (40-136); CREATININE SERUM 1.08 MG/DL (0.60-1.30); GFR ESTIMATED 49
[2020-05-13 08:29] LABS: BUN/CREATININE RATIO 15
[2020-05-13 08:30] LABS: ALANINE AMINOTRANSFERASE 12 U/L (0-55)
--- NOTE | 2020-05-13 08:42 | Diagnostic Imaging Report ---
PROCEDURE: CT head without contrast. TECHNIQUE: Multiple contiguous axial images were obtained through the brain without the use of intravenous contrast. Auto Exposure Controls were utilized during the CT exam to meet ALARA standards for radiation dose reduction. INDICATION: Weakness, pain at the base of the head, forgetfulness. Compared with head CT 05/12/2020. 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 Paranasal sinuses clear. Basilar cisterns patent. No sulcal effacement. No hemorrhage and no evidence for an elevation of the intracranial pressures. IMPRESSION: Stable chronic findings. Dictated by: Dictated on workstation # [id number]
--- NOTE | 2020-05-13 08:53 | Diagnostic Imaging Report ---
INDICATION: Head pain, nausea, confusion. COMPARISON: 05/12/2020 FINDINGS: Upper limits heart size, unchanged from prior. No focal consolidation, effusion or pneumothorax. Pulmonary vascularity, decreased. IMPRESSION: 1. Stable upper limits heart size. 2. Decreased or resolved vascular congestion. 3. No focal consolidation, pleural fluid or adverse change Dictated by: Dictated on workstation # [id number]
[2020-05-13] MEDS ORDERED: CEPH-507 PO (08:59)
[2020-05-13] MEDS ORDERED: CEPHALEXIN 250 MG (KEFLEX) CAP PO ONE (09:00)
[2020-05-13 09:06] VITALS: BP 150/90
== END 2020-05-13 09:06 | disposition home or self-care (01) ==
LOC: EDUNIT# 07:51 → ER 07:52
DX: N39.0 Urinary tract infection, site not specified (principal); R51 Headache; I48.91 Unspecified atrial fibrillation; J44.9 Chronic obstructive pulmonary disease, unspecified; I10 Essential (primary) hypertension; E11.9 Type 2 diabetes mellitus without complications; I25.2 Old myocardial infarction; I25.10 Atherosclerotic heart disease of native coronary artery without angina pectoris; K21.9 Gastro-esophageal reflux disease without esophagitis; F41.9 Anxiety disorder, unspecified; F31.9 Bipolar disorder, unspecified; Z79.01 Long term (current) use of anticoagulants; Z88.0 Allergy status to penicillin; Z88.1 Allergy status to other antibiotic agents; Z88.5 Allergy status to narcotic agent; Z88.8 Allergy status to other drugs, medicaments and biological substances; Z79.51 Long term (current) use of inhaled steroids; Z79.4 Long term (current) use of insulin; Z87.891 Personal history of nicotine dependence; Z86.711 Personal history of pulmonary embolism; Z86.718 Personal history of other venous thrombosis and embolism; Z85.3 Personal history of malignant neoplasm of breast; Z80.51 Family history of malignant neoplasm of kidney
CPT/HCPCS: 36415; 70450; 71045; 80053; 81000; 82962; 83735; 84484; 85025; 85652; 86141; 87077; 87088; 87186

== ENCOUNTER → 2020-05-31 | Outpatient (CLI) | payer MEDICARE, MEDICAID ==
[~2020-05-31] MED LIST changes: +CEPH-507 PO; +KETO120S13 TOP; +KETO120S13 TP; -KETO120S2 TOP; -KETO120S2 TP; +MULT-567 PO; -MULT1TAB69 PO
--- NOTE | 2020-05-31 22:15 | Diagnostic Imaging Report ---
Indication: Routine screening. Comparison is made with prior mammograms from 02/24/2019 and 08/21/2018. 2-D and 3-D unilateral left screening mammography was performed with CAD. Left breast remains heterogeneously dense, limiting the sensitivity of mammography. Benign calcifications are again noted. No malignant appearing microcalcifications are seen. No spiculated mass is detected. Left axilla is unremarkable. IMPRESSION: 1. BI-RADS Category 2. 2. No mammographic features suspicious for malignancy are identified. ACR BI-RADS Category 2: Benign findings. Result letter will be mailed to the patient. Note: At least 10% of breast cancer is not imaged by mammography. Dictated by: Dictated on workstation # [id number]
== END ==
LOC: RAD 13:07
PROVIDERS: ATTEND Internal Medicine Hematology & Oncology
DX: Z12.31 Encounter for screening mammogram for malignant neoplasm of breast (principal); Z85.3 Personal history of malignant neoplasm of breast
CPT/HCPCS: 77063

== ENCOUNTER → 2020-07-26 | Outpatient (CLI) | payer MEDICARE, MEDICAID ==
--- NOTE | 2020-07-26 15:20 | Diagnostic Imaging Report ---
INDICATION: Shoulder pain. FINDINGS: There is arthrosis of the acromioclavicular joint. There is chronic post traumatic deformity of the humeral head and neck. There are degenerative changes of the glenohumeral joint. There is no acute fracture or dislocation. The right lung is clear. IMPRESSION: Post traumatic and degenerative changes as described. Dictated by: Dictated on workstation # [id number]
== END ==
LOC: RAD 14:01
PROVIDERS: ATTEND Internal Medicine
DX: M19.011 Primary osteoarthritis, right shoulder (principal); Z87.828 Personal history of other (healed) physical injury and trauma
CPT/HCPCS: 73030

== ENCOUNTER 2020-08-17 08:47 | Outpatient (RCR) | payer MEDICARE, MEDICAID, OTHER ==
[~2020-08-17 08:47] MED LIST changes: +ASPI-1238 PO; -ASPI-983 PO; -CETI10TA21 PO; +CETI10TA49 PO
== END 2020-08-17 11:32 | disposition home or self-care (01) ==
PROVIDERS: ATTEND Internal Medicine
DX: I89.0 Lymphedema, not elsewhere classified (principal)

== ENCOUNTER → 2021-01-30 | Outpatient (CLI) | payer MEDICARE, MEDICAID ==
[~2021-01-30] MED LIST changes: +AMLO-250 PO; +AMLO-251 PO; -AMLO10TA7 PO; -AMLO5TAB9 PO; -CIPR500T4 PO; +CIPR500T5 PO; -CLON0.1T PO; -LACT10SO PO; +LACT10SO3 PO; -LISI-552 PO; +LISI20TA26 PO; -LISI40TA PO; +LISI40TA9 PO; +QUET25TA34 PO; -QUET25TA73 PO; +QUET50TA22 PO; -QUET50TA55 PO
== END ==
LOC: CARD 12:00
PROVIDERS: ATTEND Physician Assistant
DX: I11.9 Hypertensive heart disease without heart failure (principal); I08.0 Rheumatic disorders of both mitral and aortic valves
CPT/HCPCS: 93306

== ENCOUNTER 2021-03-22 18:15 | Observation (INO) | payer MEDICARE, MEDICAID ==
[~2021-03-22] VITALS: Ht 175.2 cm; Wt 127.8 kg
[~2021-03-22 18:15] MED LIST changes: +ACYC-112 PO; -ACYC800T PO; -CYAN50008 PO; +CYAN50009 PO
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
[2021-03-22] MEDS ORDERED: NITROGLYCERIN 2% OINT 1 GM UNIT DOSE PACKET TOP ONE (18:30)
[2021-03-22 19:08] LABS: BASOPHILS # (AUTO) 0.1 10^3/uL (0.0-0.1); BASOPHILS % (AUTO) 1 % (0-10); EOSINOPHILS # (AUTO) 0.2 10^3/uL (0.0-0.3); EOSINOPHILS % (AUTO) 2 % (0-10); HEMATOCRIT 38 % (35-52); HEMOGLOBIN 11.7 g/dL (11.5-16.0); LYMPHOCYTES # (AUTO) 1.9 10^3/uL (1.0-4.0); LYMPHOCYTES % (AUTO) 17 % (12-44); MEAN CORPUSCULAR HEMOGLOBIN 31 pg (25-34); MEAN CORPUSCULAR HGB CONC 31 g/dL (32-36); MEAN CORPUSCULAR VOLUME 98 fL (80-99); MEAN PLATELET VOLUME 12.1 fL (9.0-12.2); MONOCYTES # (AUTO) 0.7 10^3/uL (0.0-1.0); MONOCYTES % (AUTO) 6 % (0-12); NEUTROPHILS # (AUTO) 8.6 10^3/uL (1.8-7.8); NEUTROPHILS % (AUTO) 75 % (42-75); PLATELET COUNT 239 10^3/uL (130-400); WHITE BLOOD COUNT 11.5 10^3/uL (4.3-11.0)
[2021-03-22 19:20] LABS: INR 1.2 (0.8-1.4); PROTHROMBIN TIME PATIENT 15.3 SEC (12.2-14.7)
[2021-03-22 19:25] LABS: ALANINE AMINOTRANSFERASE 13 U/L (0-55); ALBUMIN 3.3 GM/DL (3.2-4.5); ALKALINE PHOSPHATASE 50 U/L (40-136); AMYLASE 26 U/L (25-125); BILIRUBIN,TOTAL 0.2 MG/DL (0.1-1.0); BUN/CREATININE RATIO 23; CARBON DIOXIDE 27 MMOL/L (21-32); CHLORIDE 100 MMOL/L (98-107); CREATINE KINASE 29 U/L (29-168); CREATININE SERUM 1.15 MG/DL (0.60-1.30); GFR ESTIMATED 46; GLUCOSE 103 MG/DL (70-105); LIPASE 34 U/L (8-78); MAGNESIUM 2.5 MG/DL (1.6-2.4); POTASSIUM 4.3 MMOL/L (3.6-5.0); SODIUM 142 MMOL/L (135-145); TOTAL PROTEIN 7.4 GM/DL (6.4-8.2)
--- NOTE | 2021-03-22 19:38 | Diagnostic Imaging Report ---
INDICATION: Atrial fibrillation. EXAMINATION: Frontal chest was obtained at 7:31 p.m. COMPARISON: 07/09/2020. FINDINGS: Heart is mildly enlarged. There is mild central vascular prominence without chance edema. There is no consolidation, pneumothorax or pleural fluid. IMPRESSION: Cardiomegaly and mild central vascular prominence. No acute infiltrate or pleural fluid. Dictated by: Dictated on workstation # [id number]
[2021-03-22 19:45] LABS: CREATINE KINASE MB 0.7 NG/ML (<6.6)
[2021-03-22] MEDS ORDERED: KETOROLAC 30 MG/ML VIAL IVP ONE (20:00)
[2021-03-22 20:33] VITALS: BP 126/70
[2021-03-22] MEDS: CATHETER FLUSH 10 ML SYR IV SCH (22:00)
[2021-03-22] MEDS ORDERED: ONDANSETRON 4 MG/2 ML (SDV) Z0FRAN IV PRN (22:00)
[2021-03-22] MEDS ORDERED: morphine INJ 4 MG/ML 1 ML (VIAL/SYRINGE) IV PRN (22:00)
[2021-03-22] MEDS ORDERED: CATHETER FLUSH 10 ML SYR IV PRN (22:00)
[2021-03-23] MEDS: NITROGLYCERIN 2% OINT 1 GM UNIT DOSE PACKET TOP SCH ×2 (00:42→05:30)
[2021-03-23 03:49] LABS: BASOPHILS # (AUTO) 0.1 10^3/uL (0.0-0.1); BASOPHILS % (AUTO) 1 % (0-10); EOSINOPHILS # (AUTO) 0.2 10^3/uL (0.0-0.3); EOSINOPHILS % (AUTO) 2 % (0-10); HEMATOCRIT 38 % (35-52); LYMPHOCYTES # (AUTO) 2.5 10^3/uL (1.0-4.0); LYMPHOCYTES % (AUTO) 22 % (12-44); MEAN CORPUSCULAR HEMOGLOBIN 30 pg (25-34); MEAN CORPUSCULAR HGB CONC 31 g/dL (32-36); MEAN CORPUSCULAR VOLUME 97 fL (80-99); MEAN PLATELET VOLUME 12.7 fL (9.0-12.2); MONOCYTES # (AUTO) 0.6 10^3/uL (0.0-1.0); MONOCYTES % (AUTO) 6 % (0-12); NEUTROPHILS % (AUTO) 70 % (42-75); PLATELET COUNT 242 10^3/uL (130-400); WHITE BLOOD COUNT 11.5 10^3/uL (4.3-11.0)
[2021-03-23 04:15] LABS: ALBUMIN 3.2 GM/DL (3.2-4.5); BILIRUBIN,TOTAL 0.3 MG/DL (0.1-1.0); CALCIUM 8.9 MG/DL (8.5-10.1); CREATININE SERUM 0.98 MG/DL (0.60-1.30); POTASSIUM 3.6 MMOL/L (3.6-5.0); TOTAL PROTEIN 7.1 GM/DL (6.4-8.2)
[2021-03-23] MEDS: CATHETER FLUSH 10 ML SYR IV SCH (05:30)
[2021-03-23] MEDS ORDERED: inSUlin ASPART (NovoLOG) 1 UNIT/0.01 ML (CHARGE PER UNIT) SC SCH (06:00)
--- NOTE | 2021-03-23 08:24 | Consultation-Cardiology ---
HPI-Cardiology Cardiology Consultation Date of Consultation 03/23/21 Date of Admission Time Seen by Provider: 08:08 Indication: Chest pain HPI Patient is a 75 y/o female with history of chronic afib, nonobstructive CAD, HTN. Present to the ER with complaints of chest pain. Reports chest pain started last night while sitting in chair, describes as sharp stabbing pain radiating to right side of chest. Some improvement with SL NG given in ER. Denies any associated dyspnea, dizziness or lightheadedness. . Home Medications & Allergies Allergies: Coded Allergies: Penicillins (Verified Allergy, Mild, 02/19/19) codeine (Verified Allergy, Mild, PT TAKES HYDROCODONE AT HOME, 02/19/19) nitrofurantoin (Verified Allergy, Mild, RASH, 02/19/19) ITCHING/RASH pregabalin (Verified Allergy, Unknown, 02/19/19) sulfur dioxide (Verified Allergy, Unknown, 02/19/19) Home Medication List Reviewed: Yes COY-Rswmbb-Palhha Hx Patient Social History Marital Status: single Employed/Student: student, part-time Recreational Drug Use: No Smoking Status: Former Smoker Type Used: Cigarettes 2nd Hand Smoke Exposure: No Recent Hopitalizations: No Have you traveled recently?: No Alcohol Use?: No Immunizations Up To Date Tetanus Booster (TDap): Unknown Date of Pneumonia Vaccine: Sep 05, 2012 Date of Influenza Vaccine: Aug 25, 2020 Past Medical History afib, HTN, HLP Family Medical History Significant Family History: No Pertinent Family Hx Family History: BULBAR POLIO G8 BROTHER Diabetes mellitus G8 BROTHER UNCLE FH: cancer G8 BROTHER FH: kidney cancer G8 SISTER Review of Systems-General Review of Systems Constitutional: no symptoms reported, see HPI EENTM: see HPI, no symptoms reported; No blurred vision, No double vision Respiratory: see HPI; No cough, No dyspnea on exertion, No short of breath Cardiovascular: see HPI, chest pain; No Hx of Intervention, No palpitations Musculoskeletal: no symptoms reported Skin: no symptoms reported Psychiatric/Neurological: No Symptoms Reported Reviewed Test Results Reviewed Test Results Lab Laboratory Tests 03/22/21 18:56: White Blood Count 11.5H, Red Blood Count 3.82, Hemoglobin 11.7, Hematocrit 38, Mean Corpuscular Volume 98, Mean Corpuscular Hemoglobin 31, Mean Corpuscular Hemoglobin Concent 31L, Red Cell Distribution Width 14.8H, Platelet Count 239, Mean Platelet Volume 12.1, Immature Granulocyte % (Auto) 1, Neutrophils (%) (Auto) 75, Lymphocytes (%) (Auto) 17, Monocytes (%) (Auto) 6, Eosinophils (%) (Auto) 2, Basophils (%) (Auto) 1, Neutrophils # (Auto) 8.6H, Lymphocytes # (Auto) 1.9, Monocytes # (Auto) 0.7, Eosinophils # (Auto) 0.2, Basophils # (Auto) 0.1, Immature Granulocyte # (Auto) 0.1, Prothrombin Time 15.3H, INR Comment 1.2, Activated Partial Thromboplast Time 33, Sodium Level 142, Potassium Level 4.3, Chloride Level 100, Carbon Dioxide Level 27, Anion Gap 15H, Blood Urea Nitrogen 27H, Creatinine 1.15, Estimat Glomerular Filtration Rate 46, BUN/Creatinine Ratio 23, Glucose Level 103, Calcium Level 9.0, Corrected Calcium 9.6, Magnesium Level 2.5H, Total Bilirubin 0.2, Aspartate Amino Transf (AST/SGOT) 25, Alanine Aminotransferase (ALT/SGPT) 13, Alkaline Phosphatase 50, Total Creatine Kinase 29, Creatine Kinase MB 0.7, Myoglobin 42.4, Troponin I < 0.028, B-Type Natriuretic Peptide 84.7, Total Protein 7.4, Albumin 3.3, Amylase Level 26, Lipase 34, TSH Plush Testing 0.50 03/22/21 21:28: Troponin I < 0.028 03/23/21 02:40: White Blood Count 11.5H, Red Blood Count 3.95, Hemoglobin 12.0, Hematocrit 38, Mean Corpuscular Volume 97, Mean Corpuscular Hemoglobin 30, Mean Corpuscular Hemoglobin Concent 31L, Red Cell Distribution Width 14.6H, Platelet Count 242, Mean Platelet Volume 12.7H, Immature Granulocyte % (Auto) 0, Neutrophils (%) (Auto) 70, Lymphocytes (%) (Auto) 22, Monocytes (%) (Auto) 6, Eosinophils (%) (Auto) 2, Basophils (%) (Auto) 1, Neutrophils # (Auto) 8.0H, Lymphocytes # (Auto) 2.5, Monocytes # (Auto) 0.6, Eosinophils # (Auto) 0.2, Basophils # (Auto) 0.1, Immature Granulocyte # (Auto) 0.0, Sodium Level 141, Potassium Level 3.6, Chloride Level 101, Carbon Dioxide Level 30, Anion Gap 10, Blood Urea Nitrogen 25H, Creatinine 0.98, Estimat Glomerular Filtration Rate 55, BUN/Creatinine Ratio 26, Glucose Level 99, Calcium Level 8.9, Corrected Calcium 9.5, Total Bilirubin 0.3, Aspartate Amino Transf (AST/SGOT) 30, Alanine Aminotransferase (ALT/SGPT) 17, Alkaline Phosphatase 49, Total Protein 7.1, Albumin 3.2, Triglycerides Level 81, Cholesterol Level 121, LDL Cholesterol Direct 70, VLDL Cholesterol 16, HDL Cholesterol 51 ECG Impression ECG Initial ECG Rhythm: A Fib/Flutter Physical Exam Physical Exam Vital Signs Vital Signs - First Documented 03/22/21 18:23 Temp 35.8 Pulse 69 Resp 20 B/P (MAP) 162/80 (107) Pulse Ox 96 O2 Delivery Room Air Capillary Refill : Less Than 3 Seconds Height, Weight, BMI Height: 5'9.00" Weight: 250lbs. 0.0oz. 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 EKG showing rate controlled afib. Cardiac enzymes have been negative. stress test done on August 2019 revealed no ischemia or infarct. Can follow up with stress test as outpatient. History of syncope, unknown etiology, extensive workup, no source was found, having occasional dizziness no further syncope was reported. Persistent atrial fibrillation-maintained on Xarelto, continue to monitor. [id number] score is 4, yearly risk patient is 4 percent, started on Xarelto, doing well. Continue on current medication. History of Patent hawkins ov[place], 1.1 cm with [id number] shunt per 2-D echocardiogram 2014, continue to monitor Moderate per 2D Echo done January 2021. Pulmonary hypertension, PA pressure of 40 mmHg, last echocardiogram was done in January 2021 she had calcified mitral valve with moderate mitral regurgitation, moderate aortic regurgitation and moderate tricuspid regurgitation, ejection fraction 55-60 percent. Continue to monitor Chronic DVT to lower extremity-no changes recommended at this time, maintained on Xarelto. History of chronic chest pain with a normal cardiac catheterization in 2010, repeat cardiac catheterization was done in October 2014 with IVUS done by Dr. Carney and showed 30-40 percent LAD stenosis, 10 percent left main stenosis otherwise nonobstructive disease. Patient was reassured Hypertension, restart home blood pressure medications and continue to monitor. Hyperlipidemia,controlled, continue to monitor as outpatient Mild bilateral carotid stenosis, last ultrasound was done in Jul 2020 Obesity, BMI is 35, discussed weight loss Benign essential tremor Diabetes mellitus, managed by Dr. Romero. History of renal cysts, has been followed by Dr. Sethi. History of breast cancer, followed and managed by Dr. Fernández. Bipolar disorder Mnires disease Anxiety Depression COPD/Obstructive sleep apnea not using BiPAP at this time. Degenerative joint disease, multiple hip surgeries, MRSA infection. Now followed and managed by primary care physician Thank you for allowing us to participate in the management of Ms Pringle. This is Emperatriz Devine PA-C, as a scribe for Dr. Pavon. Patient was seen and evaluated with Emperatriz, has been feeling better, had an episode of abdominal pain radiating to her chest with persistent chest pain that has resolved. No further episode of chest pain, no EKG changes, cardiac enzymes are negative, from the cardiac's standpoint patient is currently stable, I recommend evaluating stress test as an outpatient. Her episodes of pain could be related to GI causes. Chronic atrial fibrillation is controlled. Continue to monitor Monitor blood pressure and lipid Clinical Quality Measures AMI/AHF: ASA po Prior to arrival: Yes ([facility]) EMPERATRIZ SORIA Mar 23, 2021 08:24 SHEELA PAVON MD Mar 23, 2021 09:27
[2021-03-23] MEDS ORDERED: ASPIRIN E.C. 81 MG (ECOTRIN) TAB PO SCH (09:00)
[2021-03-23] MEDS ORDERED: NITR0.4T42 SL (10:06)
--- NOTE | 2021-04-12 15:26 | Discharge Summary ---
Discharge Summary Hospital Course Problems/Dx: (1) Chest pain Status: Acute Qualifiers: Qualified Codes: R07.9 - Chest pain, unspecified Hospital Course Date of Admission: Mar 22, 2021 at 20:45 Admission Diagnosis : Chest pain Family Physician/Provider: Lb Christine DO Date of Discharge: 03/23/21 Discharge Diagnosis: Chest pain Hospital Course: Agata Pringle is a 75 year old female who was admitted with chest pain. She underwent EKG and troponins which were normal. Cardology was consulted and assisted with her care. They recommended outpatient stress testing. Her symptoms resolved and she was discharged home in stable condition. Labs and Pending Lab Test: Home Meds Active Nitroglycerin 0.4 Mg Tab.subl 0.4 Mg SL PRN PRN Keflex (Cephalexin) 500 Mg Capsule 500 Mg PO BID Reported Myrbetriq (Mirabegron) 50 Mg Tab.er.24h 50 Mg PO DAILY Novolog Flexpen (Insulin Aspart) 300 Units/3 Ml Solution 3-5 Units SQ TIDAC Vitamin D3 (Cholecalciferol (Vitamin D3)) 125 Mcg Capsule 125 Mcg PO DAILY Triple Magnesium Complex (Magnesium Oxide,Aspartate,Citr) 400 Mg Capsule 400 Mg PO 1200 K-Tab ER (Potassium Chloride) 10 Meq Tablet.er 10 Meq PO DAILY Carvedilol 12.5 Mg Tablet 12.5 Mg PO BID Albuterol Sulfate 2.5 Mg/3 Ml Vial.neb 2.5 Mg NEB Q6H PRN Proair Hfa (Albuterol Sulfate) 1 Puff Puff 2 Puff IH Q6H PRN 1 PUFF = 90 MCG Claritin (Loratadine) 10 Mg Tablet 10 Mg PO DAILY PRN Vitamin C (Ascorbate Calcium) 500 Mg Tablet 500 Mg PO DAILY Multivitamins (Multivitamin) 1 Each Tablet 1 Tab PO DAILY Aleve (Naproxen Sodium) 220 Mg Tablet 220 Mg PO BID Tresiba Flextouch U-100 (Insulin Degludec) 100 Unit/1 Ml Insuln.pen 46 Unit SQ TH Famotidine 20 Mg Tablet 20 Mg PO DAILY Gabapentin 600 Mg Tablet 600 Mg PO TID Ocuvite Adult 50 Plus Softgel (C,E,Zinc,Copper 24/Om3/Lut/Rita) 1 Each Capsule 1 Cap PO DAILY Clonidine HCl 0.1 Mg Tablet 0.1 Mg PO 1200 PRN Clonidine HCl 0.1 Mg Tablet 0.1 Mg PO BID HYDROcodone/APAP 7.5/325 TAB (Acetaminophen/Hydrocodone Bitart) 1 Each Tablet 1 Tab PO BID PRN Fluticasone Propionate 16 Gm [place].susp 1 [place] NS BID PRN Tresiba Flextouch U-100 (Insulin Degludec) 100 Unit/1 Ml Insuln.pen 48 Unit SQ SUMOTUWEFRSA Amlodipine Besylate 5 Mg Tablet 5 Mg PO DAILY Xarelto Tablet (Rivaroxaban) 20 Mg Tablet 20 Mg PO HS Trospium Chloride 20 Mg Tablet 20 Mg PO BID TAKE ON AN EMPTY STOMACH Lisinopril 40 Mg Tablet 40 Mg PO DAILY Metformin HCl 500 Mg Tablet 500 Mg PO BID Oxcarbazepine 300 Mg Tablet 300 Mg PO DAILY Furosemide 40 Mg Tablet 80 Mg PO DAILY TAKES 2 (40MG) TABLETS Buspirone HCl 15 Mg Tablet 15 Mg PO TID Assessment/Pt Instructions Take medicaions as prescribed. Follow up with your PCP. Return with worsening symptoms. Discharge Planning: <30 minutes discharge planning Discharge Instructions Discharge Diet: No Restrictions Activity as Tolerated: Yes Consultations Cardiology Discharge Physical Examination Allergies: Coded Allergies: Penicillins (Verified Allergy, Mild, 02/19/19) codeine (Verified Allergy, Mild, PT TAKES HYDROCODONE AT HOME, 02/19/19) nitrofurantoin (Verified Allergy, Mild, RASH, 02/19/19) ITCHING/RASH pregabalin (Verified Allergy, Unknown, 02/19/19) sulfur dioxide (Verified Allergy, Unknown, 02/19/19) Discharge Summary Date of Admission Mar 22, 2021 at 20:45 Date of Discharge Mar 23, 2021 at 11:59 Discharge Date: Mar 23, 2021 Discharge Time: 1100 Admission Diagnosis Chest pain Consults/Procedures Consulations Cardiology Discharge Diagnosis (1) Chest pain Status: Acute Qualifiers: Qualified Codes: R07.9 - Chest pain, unspecified Clinical Quality Measures AMI/AHF: ASA po Prior to arrival: Yes ([facility]) KELY WEBSTER MD April 12, 2021 15:26
== END 2021-03-23 11:59 | disposition home or self-care (01) ==
LOC: EDUNIT# 18:15 → ER 18:17 → CSD 20:27 → UNDOADMOB 20:27 → CSD 20:45 → UNDODISOB 03-23 11:59
PROVIDERS: ADMIT Internal Medicine; ATTEND Internal Medicine
DX: R07.9 Chest pain, unspecified (principal); I48.20 Chronic atrial fibrillation, unspecified; I25.10 Atherosclerotic heart disease of native coronary artery without angina pectoris; I25.2 Old myocardial infarction; I11.0 Hypertensive heart disease with heart failure; I50.9 Heart failure, unspecified; I65.23 Occlusion and stenosis of bilateral carotid arteries; I08.3 Combined rheumatic disorders of mitral, aortic and tricuspid valves; E78.00 Pure hypercholesterolemia, unspecified; J44.9 Chronic obstructive pulmonary disease, unspecified; G47.30 Sleep apnea, unspecified; N39.0 Urinary tract infection, site not specified; K21.9 Gastro-esophageal reflux disease without esophagitis; M19.90 Unspecified osteoarthritis, unspecified site; M79.7 Fibromyalgia; G89.29 Other chronic pain; M54.9 Dorsalgia, unspecified; E11.9 Type 2 diabetes mellitus without complications; F31.9 Bipolar disorder, unspecified; F41.9 Anxiety disorder, unspecified; Z79.01 Long term (current) use of anticoagulants; Z88.0 Allergy status to penicillin; Z88.5 Allergy status to narcotic agent; Z79.4 Long term (current) use of insulin; Z79.891 Long term (current) use of opiate analgesic
CPT/HCPCS: 36415; 71045; 80053; 80061; 82150; 82550; 82553; 83690; 83735; 83874; 83880; 84443; 84484; 85025; 85610; 85730; 93005; 93041; 96374

== ENCOUNTER 2021-04-26 05:29 | Observation (INO) | payer MEDICARE, MEDICAID ==
[~2021-04-26] VITALS: Ht 170.2 cm; Wt 130.8 kg
[~2021-04-26 05:29] MED LIST changes: +NITR0.4T42 SL
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
[2021-04-26 05:51] LABS: BASOPHILS # (AUTO) 0.1 10^3/uL (0.0-0.1); BASOPHILS % (AUTO) 1 % (0-10); EOSINOPHILS # (AUTO) 0.3 10^3/uL (0.0-0.3); EOSINOPHILS % (AUTO) 3 % (0-10); HEMATOCRIT 38 % (35-52); HEMOGLOBIN 12.3 g/dL (11.5-16.0); LYMPHOCYTES # (AUTO) 2.2 10^3/uL (1.0-4.0); LYMPHOCYTES % (AUTO) 20 % (12-44); MEAN CORPUSCULAR HEMOGLOBIN 32 pg (25-34); MEAN CORPUSCULAR HGB CONC 33 g/dL (32-36); MEAN CORPUSCULAR VOLUME 97 fL (80-99); MONOCYTES # (AUTO) 0.8 10^3/uL (0.0-1.0); MONOCYTES % (AUTO) 8 % (0-12); NEUTROPHILS # (AUTO) 7.4 10^3/uL (1.8-7.8); NEUTROPHILS % (AUTO) 69 % (42-75); PLATELET COUNT 267 10^3/uL (130-400); WHITE BLOOD COUNT 10.8 10^3/uL (4.3-11.0)
[2021-04-26 06:05] LABS: ALBUMIN 3.6 GM/DL (3.2-4.5); CHLORIDE 99 MMOL/L (98-107); POTASSIUM 5.1 MMOL/L (3.6-5.0); SODIUM 139 MMOL/L (135-145)
[2021-04-26 06:06] LABS: CALCIUM 9.6 MG/DL (8.5-10.1)
[2021-04-26 06:07] LABS: GLUCOSE 168 MG/DL (70-105); TOTAL PROTEIN 8.2 GM/DL (6.4-8.2)
[2021-04-26 06:08] LABS: CARBON DIOXIDE 27 MMOL/L (21-32)
[2021-04-26 06:09] LABS: BILIRUBIN,TOTAL 0.3 MG/DL (0.1-1.0)
[2021-04-26 06:11] LABS: ALKALINE PHOSPHATASE 48 U/L (40-136); CREATININE SERUM 1.09 MG/DL (0.60-1.30); GFR ESTIMATED 49
[2021-04-26 06:12] LABS: BUN/CREATININE RATIO 17
[2021-04-26 06:14] LABS: ALANINE AMINOTRANSFERASE 15 U/L (0-55); MAGNESIUM 2.4 MG/DL (1.6-2.4)
[2021-04-26 06:15] LABS: CREATINE KINASE 37 U/L (29-168); CREATINE KINASE MB 0.7 NG/ML (<6.6); LIPASE 22 U/L (8-78)
[2021-04-26] MEDS ORDERED: NITROGLYCERIN 0.4 MG SL TABS BTL 25'S SL PRN (06:30)
--- NOTE | 2021-04-26 06:52 | Diagnostic Imaging Report ---
INDICATION: Chest pain Portable chest shows cardiomegaly with mild pulmonary venous distention. No infiltrates or effusions are seen. There are degenerative changes of the right shoulder joint. IMPRESSION: There is cardiomegaly with vascular congestion. The vascularity is increased slightly since a prior study from 03/22/2021. Dictated by: Dictated on workstation # [id number]
[2021-04-26 07:09] LABS: INR 1.9 (0.8-1.4)
[2021-04-26] MEDS ORDERED: FUROSEMIDE 40 MG/4 ML INJ (LASIX) IVP ONE (08:00)
[2021-04-26] MEDS ORDERED: CATHETER FLUSH 10 ML SYR IV PRN (08:15)
[2021-04-26] MEDS ORDERED: REGADENOSON 0.4 MG/5 ML SYR (LEXISCAN) IV ONE ×2 (08:44→10:00)
--- NOTE | 2021-04-26 09:34 | Consultation-Cardiology ---
HPI-Cardiology Cardiology Consultation Date of Consultation 04/26/21 Date of Admission Time Seen by Provider: 09:29 Indication: Chest pain HPI 75-year-old lady with history of paroxysmal atrial fibrillation, hypertension, mild coronary artery disease, was doing a home sleep study, had sudden onset of chest pressure in the retrosternal area radiating to the back, was severe, [facility] d an ambulance and she was given nitroglycerin and reported improvement, continue to have mild chest discomfort. No palpitation. No syncope or near syncopal episode, has chronic pedal edema which has been worsening recently Home Medications & Allergies Allergies: Coded Allergies: Penicillins (Verified Allergy, Mild, 02/19/19) codeine (Verified Allergy, Mild, PT TAKES HYDROCODONE AT HOME, 02/19/19) nitrofurantoin (Verified Allergy, Mild, RASH, 02/19/19) ITCHING/RASH pregabalin (Verified Allergy, Unknown, 02/19/19) sulfur dioxide (Verified Allergy, Unknown, 02/19/19) Home Medication List Reviewed: Yes HNK-Bcluvp-Bhtwhr Hx Patient Social History Marital Status: Employed/Student: retired Recreational Drug Use: No Smoking Status: Former Smoker Type Used: Cigarettes 2nd Hand Smoke Exposure: No Recent Hopitalizations: No Immunizations Up To Date Tetanus Booster (TDap): Unknown Date of Pneumonia Vaccine: Sep 05, 2012 Date of Influenza Vaccine: Aug 25, 2020 Past Medical History Discussed below Family Medical History Significant Family History: No Pertinent Family Hx Family History: BULBAR POLIO G8 BROTHER Diabetes mellitus G8 BROTHER UNCLE FH: cancer G8 BROTHER FH: kidney cancer G8 SISTER Review of Systems-General Review of Systems Constitutional: see HPI, malaise, weakness EENTM: see HPI, no symptoms reported Respiratory: see HPI; No cough; dyspnea on exertion; No hemoptysis; orthopnea; No phlegm; short of breath; No stridor, No wheezing, No other Cardiovascular: see HPI, chest pain, edema; No Hx of Intervention; palpitations; No syncope, No vascular heart diseas, No other Gastrointestinal: no symptoms reported, see HPI Genitourinary: no symptoms reported, see HPI Musculoskeletal: see HPI Skin: no symptoms reported, see HPI Psychiatric/Neurological: No Symptoms Reported, See HPI Reviewed Test Results Reviewed Test Results Lab Laboratory Tests Test 04/26/21 05:40 04/26/21 06:50 04/26/21 07:41 Range/Units White Blood Count 10.8 4.3-11.0 10^3/uL Red Blood Count 3.89 3.80-5.11 10^6/uL Hemoglobin 12.3 11.5-16.0 g/dL Hematocrit 38 35-52 % Mean Corpuscular Volume 97 80-99 fL Mean Corpuscular Hemoglobin 32 25-34 pg Mean Corpuscular Hemoglobin Concent 33 32-36 g/dL Red Cell Distribution Width 15.1 H 10.0-14.5 % Platelet Count 267 130-400 10^3/uL Mean Platelet Volume 12.0 9.0-12.2 fL Immature Granulocyte % (Auto) 0 % Neutrophils (%) (Auto) 69 42-75 % Lymphocytes (%) (Auto) 20 12-44 % Monocytes (%) (Auto) 8 0-12 % Eosinophils (%) (Auto) 3 0-10 % Basophils (%) (Auto) 1 0-10 % Neutrophils # (Auto) 7.4 1.8-7.8 10^3/uL Lymphocytes # (Auto) 2.2 1.0-4.0 10^3/uL Monocytes # (Auto) 0.8 0.0-1.0 10^3/uL Eosinophils # (Auto) 0.3 0.0-0.3 10^3/uL Basophils # (Auto) 0.1 0.0-0.1 10^3/uL Immature Granulocyte # (Auto) 0.0 0.0-0.1 10^3/uL Sodium Level 139 135-145 MMOL/L Potassium Level 5.1 H 3.6-5.0 MMOL/L Chloride Level 99 98-107 MMOL/L Carbon Dioxide Level 27 21-32 MMOL/L Anion Gap 13 5-14 MMOL/L Blood Urea Nitrogen 18 7-18 MG/DL Creatinine 1.09 0.60-1.30 MG/DL Estimat Glomerular Filtration Rate 49 BUN/Creatinine Ratio 17 Glucose Level 168 H 70-105 MG/DL Calcium Level 9.6 8.5-10.1 MG/DL Corrected Calcium 9.9 8.5-10.1 MG/DL Magnesium Level 2.4 1.6-2.4 MG/DL Total Bilirubin 0.3 0.1-1.0 MG/DL Aspartate Amino Transf (AST/SGOT) 30 5-34 U/L Alanine Aminotransferase (ALT/SGPT) 15 0-55 U/L Alkaline Phosphatase 48 40-136 U/L Total Creatine Kinase 37 29-168 U/L Creatine Kinase MB 0.7 <6.6 NG/ML Myoglobin 42.1 10.0-92.0 NG/ML Troponin I < 0.028 < 0.028 <0.028 NG/ML B-Type Natriuretic Peptide 161.7 H <100.0 PG/ML Total Protein 8.2 6.4-8.2 GM/DL Albumin 3.6 3.2-4.5 GM/DL Lipase 22 8-78 U/L Prothrombin Time 22.0 H 12.2-14.7 SEC INR Comment 1.9 H 0.8-1.4 Activated Partial Thromboplast Time 31 24-35 SEC Physical Exam Physical Exam Vital Signs Vital Signs - First Documented 04/26/21 05:32 Pulse 75 Resp 20 B/P (MAP) 185/92 (123) Capillary Refill : Less Than 3 Seconds Height, Weight, BMI Height: 5'9.00" Weight: 250lbs. 0.0oz. 113.657025gm; 39.00 BMI Method:Stated General Appearance: No Apparent Distress, WD/WN, Obese (MORBIDLY OBESE), Other (TALKATIVE, DOES NOT APPEAR TO BE IN ANY DISCOMFORT OR DISTRESS) Eyes: Bilateral Eye Normal Inspection, Bilateral Eye PERRL, Bilateral Eye EOMI HEENT: PERRL/EOMI, TMs Normal, Normal ENT Inspection, Pharynx Normal, Moist Mucous Membranes Neck: Full Range of Motion, Normal Inspection, Non Tender, Supple, Carotid Bruit Respiratory: Normal Breath Sounds, No Accessory Muscle Use, No Respiratory Distress, Decreased Breath Sounds (IN BASES) Cardiovascular: Systolic Murmur (1/6), Irregularly Irregular Gastrointestinal: Non Tender, Soft Back: Normal Inspection, No CVA Tenderness, No Vertebral Tenderness Extremity: Pedal Edema, Swelling (4+ EDEMA BILATERALLY, WITH CHRONIC VENOUS STASIS CHANGES BILATERALLY AND ERYTHEMA TO ANTERIOR ASPECT OF BILATERAL LOWER LEGS, ) Neurologic/Psychiatric: Alert, Oriented x3 (BUT SOMEWHAT POOR MEMORY), No Motor/Sensory Deficits, Normal Mood/Affect, welfare manager II-XII Norm as Tested Skin: Normal Color, Warm/Dry Lymphatic: No Adenopathy A/P-Cardiology Admission Diagnosis Chest pain Severe pulmonary hypertension Aortic valve stenosis Persistent atrial fibrillation Assessment/Plan Chest pain, nonspecific etiology, reporting some improvement at this time, EKG did not show any acute changes, cardiac enzymes were negative, I am planning to evaluate Lexiscan stress test today. Chronic DVT, worsening pedal edema recently, history of urinary incontinence. I will place a Baker cath and start on aggressive diuresis History of moderate aortic valve stenosis, normal left ventricular function with severe pulmonary hypertension, severe mitral regurgitation, moderate aortic regurgitation, I will repeat 2D echo History of patent foramen ovale, 1.1 cm with left to right shunt per 2D echo in May 2015. Continue to monitor Persistent atrial fibrillation, maintained on Xarelto, rate is controlled, continue to monitor [id number] score is 4, yearly risk patient is 4 percent, started on Xarelto, doing well. Continue on current medication. History of chronic chest pain with a normal cardiac catheterization in 2010, repeat cardiac catheterization was done in October 2014 with IVUS done by Dr. Carney and showed 30-40 percent LAD stenosis, 10 percent left main stenosis otherwise nonobstructive disease. Planning to repeat stress test Hypertension, on multiple blood pressure medications, continue to monitor. Hyperlipidemia,controlled, continue to monitor Mild bilateral carotid stenosis, last ultrasound was done in Jul 2020 Obesity, BMI is 35, discussed weight loss Benign essential tremor Diabetes mellitus, managed by Dr. Romero. History of renal cysts, has been followed by Dr. Sethi. History of breast cancer, followed and managed by Dr. Fernández. Bipolar disorder Mnires disease Anxiety Depression COPD/Obstructive sleep apnea not using BiPAP at this time. Degenerative joint disease, multiple hip surgeries, MRSA infection. Now followed and managed by primary care physician Clinical Quality Measures AMI/AHF: ASA po Prior to arrival: Yes (324MG ASA) SHEELA BANUELOS MD Apr 26, 2021 09:33
[2021-04-26 09:47] VITALS: BP 144/72
[2021-04-26 11:15] VITALS: BP 138/84
[2021-04-26] MEDS ORDERED: ONDANSETRON 4 MG/2 ML (SDV) Z0FRAN IV PRN (12:30)
[2021-04-26] MEDS ORDERED: morphine INJ 4 MG/ML 1 ML (VIAL/SYRINGE) IV PRN (12:30)
--- NOTE | 2021-04-26 12:51 | Cardiology Stress Test Report ---
Stress Test Report Date of Procedure/Referring: Date of Procedure: Apr 26, 2021 PCP Mary Frausto MD Admitting Physician Lb Christine DO Indications: Atrial fibrillation, Chest pain Baseline Blood Pressure: Blood Pressure Systolic: 138 Blood Pressure Diastolic: 84 Baseline Vitals Vital Signs Date Time Temp Pulse Resp B/P (MAP) Pulse Ox O2 Delivery O2 Flow Rate FiO2 04/26/21 05:32 95 Nasal Cannula 2.00 04/26/21 05:32 75 20 185/92 (123) 04/26/21 11:15 36.6 Baseline EKG: Baseline EKG: Atrial fibrillation Summary After explaining the procedure to the patient, she signed a consent and then brought to the stress nuclear laboratory. Patient received 0.4 mg Lexiscan for stress test, ECG, heart rate and blood pressure were monitored continuously. Resting and stress dose of radio tracer were injected, imaging was acquired and reviewed in short axis, horizontal long axis and vertical long axis views. TID: 1.02 SSS: 7 SDS: 6 EF: 72 1. Patient tolerated Lexiscan well 2. Baseline atrial fibrillation persisted during test 3. Breast attenuation with reversible ischemia involving the whole inferior wall and inferolateral wall 4. Normal left ventricular size, EF 72%, gated images are unreliable due to underlying atrial fibrillation SHEELA BANUELOS MD Apr 26, 2021 12:50
--- NOTE | 2021-04-26 13:10 | Conscious Sedation/ASA ---
Conscious Sedation Pre-Proced Time 13:09 ASA Score 3 For ASA 3 and 4: Consider anesthesia and medical clearance. Also, for patients with a history of failed moderate sedation consider anesthesia. Airway Lungs Heart ASA score ASA 1: a normal healthy patient ASA 2: a patient with a mild systemic disease (mid diabetes, controlled hypertension, obesity X ASA 3: a patient with a severe systemic disease that limits activity (angina, COPD, prior Myocardial infarction) ASA 4: a patient with an incapacitating disease that is a constant threat to life (CHF, renal failure) ASA 5: a moribund patient not expected to survive 24 hrs. (ruptured aneurysm) ASA 6: a declared brain- patient whose organs are being harvested. For emergent operations, add the letter E after the classification Mallampati Classification Grade 3 Sedation Plan Analgesia, Amnesia, Plan communicated to team members, Discussed options with patient/fam, Discussed risks with patient/fam The patient is an appropriate candidate to undergo the planned procedure, sedation, and anesthesia. The patient immediately re-assessed prior to indication. SHEELA BANUELOS MD Apr 26, 2021 1:09 pm
[2021-04-26] MEDS ORDERED: FLUC150T2 PO (15:33)
[2021-04-26] MEDS ORDERED: ESTR10TA9 VG (15:33)
[2021-04-26] MEDS ORDERED: CEPH250C PO (15:33)
[2021-04-26] MEDS ORDERED: METO2.5T PO (15:33)
[2021-04-26] MEDS ORDERED: MAGN400T50 PO (15:33)
[2021-04-26 16:00] VITALS: BP 156/77
[2021-04-26] MEDS ORDERED: inSUlin ASPART (NovoLOG) 1 UNIT/0.01 ML (CHARGE PER UNIT) SC SCH (16:00)
--- NOTE | 2021-04-26 16:07 | History & Physical-Hospitalist ---
History of Present Illness HPI/Chief Complaint Pt is a 75yoCF with a PMH of HTN, IDDMII, splenectomy, pHTN, h/o DVT, a fib, MADELYN, aortic valve stenosis who presented to the ER due chest pain. She reports it is in her mid chest and radiates to her neck, left arm. She was doing a home sleep study and the light started flashing orange. She called [facility] about this and they recommended she seek evaluation in the Er. She called EMS and was given aspirin and nitropaste which helped her pain. She was admitted for a stress test. This was negative and plan is to go to go cath. She now complaints of right sided abdominal pain. She stated it was upper quadrant to the nurse and lower quadrant to me. She was exquisitely tender when the nurse was examining her but was able to tolerate deep palpation with a stethoscope. She also complains of worsening redness in her legs (right worse than left) her swelling is about the same though. Source: patient Date Seen 04/26/21 Time Seen by a Provider: 16:04 Attending Physician Ilene Frausto MD PCP Lb Christine DO Referring Physician Date of Admission Apr 26, 2021 at 07:31 Home Medications & Allergies Home Medications Reviewed patient Home Medication Reconciliation performed by pharmacy medication reconciliations guitar technician and/or nursing. Patients Allergies have been reviewed. Allergies Allergies Coded Allergies Penicillins (Verified Allergy, Mild, 02/19/19) codeine (Verified Allergy, Mild, PT TAKES HYDROCODONE AT HOME, 02/19/19) nitrofurantoin (Verified Allergy, Mild, RASH, 02/19/19) ITCHING/RASH pregabalin (Verified Allergy, Unknown, 02/19/19) sulfur dioxide (Verified Allergy, Unknown, 02/19/19) Past Zghthdx-Eytdjn-Kowvfj Hx Patient Social History Marrital Status: Employed/Student: retired Smoking Status: Former Smoker Immunizations Up To Date Date of Influenza Vaccine: Aug 25, 2020 Tetanus Booster (TDap): Unknown Hepatitis A: No Hepatitis B: No PED Vaccines UTD: Yes Date of Pneumonia Vaccine: Sep 05, 2012 Seasonal Allergies Seasonal Allergies: Yes (pollen) Current Status Primary Language: Malian Past Medical History Surgeries: Abdominal, Amputation, Appendectomy, Bladder Surgery, Breast, Cardiac, Eye Surgery, Gallbladder, 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, Orthopedic, Tonsillectomy, Vascular Surgery Pneumonia, Chronic Bronchitis, Pulmonary Embolism, Sleep Apnea, COPD Currently Using CPAP: Yes Currently Using BIPAP: No Atrial Fibrillation, Chronic Edema/Swelling, Coronary Artery Disease, Deep Vein Thrombosis, Heart Attack, Heart Murmur, High Cholesterol, Hypertension, Syncope, Valvular Heart Disease Dementia, Vertigo 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 History: 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, Menopausal Sexually Transmitted Disease: No HIV/AIDS: No Renal Failure, UTI-Chronic Abdominal Hernia, Colitis, Gastroesophageal Reflux, Hemorrhoids, Ulcer Arthritis, Fibromyalgia, Chronic Back Pain, Fractures Diabetes, Insulin dep Cataract, Macular Degeneration Loss of Vision: Denies Hearing Impairment: Hard of Hearing Breast Did You Recieve Any Treatments: Yes What Type of Treatment Did You: Chemotherapy, Surgical Intervention Anxiety, Bipolar, Depression Pruritis Blood Disorders: Yes (DVT'S/ P.E.'S / PHLEBITIS) Adverse Reaction/Blood Tranf: No Family Medical History BULBAR POLIO G8 BROTHER Diabetes mellitus G8 BROTHER UNCLE FH: cancer G8 BROTHER FH: kidney cancer G8 SISTER No Pertinent Family Hx SOCIAL HISTORY: -ETOH--RARE USE -DRUGS-DENIES USE -SMOKING--SMOKED IN PAST, QUIT MANY YEARS AGO PAST SURGICAL / PROCEDURAL HISTORY: -ECHOCARDIOGRAM 12/18/19--EF 50-55%, MODERATE TO SEVERE MITRAL REGURG., MILD TO MODERATE AORTIC STENOSIS AND REGURG., MODERATE TRICUSPID REGURG -STRESS TEST 09/09/19--NO ISCHEMIA OR INFARCT, EF 61%, BASELINE ATRIAL FIB -CARDIAC CATH 07/18/11--NO SIGNIFICANT DISEASE/NO INTERVENTION -CARDIAC CATH BY DR. BLACKWELL--MILD CORONARY ARTERY DISEASE, NO INTERVENTION -CARDIOVERSION 1958--TONSILLECTOMY 1958--REMOVAL OF BENIGN TUMOR FROM RIGHT LEG 1962--SPLENECTOMY 1970--URETHROPLASTY 1986--HYSTERECTOMY 1987--CHOLECYSTECTOMY 1992--BILATERAL FOOT SURGERY--BUNIONECTOMY AND BONE SPURS 1994--RIGHT MASTECTOMY 1997--PORT REMOVED --COLONOSCOPY 2000--HERNIA REPAIR 2014--MRSA WOUND INFECTION/DEBRIDEMENT/WOUND VAC 2016--RIGHT ACHILLES TENDON LENGTHENING AND FLEXOR TENDON RELEASE ON TOES 2018--EGD 2018--YAG LASER BILATERAL EYES 2018--CYSTOSCOPY LEFT CARPAL TUNNEL BILATERAL CATARACT SURGERIES RIGHT HIP FRACTURE WITH MULTIPLE REVISIONS/DEBRIDEMENTS NASAL CAUTERIZATIONS APPENDECTOMY ADDITIONAL PAST MEDICAL HISTORY: -CHF -CHRONIC ANTICOAGULATION FOR CHRONIC ATRIAL FIBRILLATION, MULTIPLE DVT'S, P.E.'S AND PHLEBITIS -MILD BILATERAL CAROTID STENOSIS -P.F.O. -MITRAL VALVE, AORTIC VALVE AND TRICUSPIC VALVE REGURGITATION -CHRONIC LEG EDEMA/LYMPHEDEMA--RIGHT > LEFT -ARTHRITIS IN BACK -CHRONIC BACK AND NECK PAIN -CARPAL TUNNEL SYNDROME -RIGHT HUMERUS FRACTURE -CHRONIC RIGHT ARM PAIN -CHRONIC LEG PAIN -MULTIPLE RIGHT HIP SURGERIES/REVISIONS/DEBRIDEMENTS -RIGHT WRIST FRACTURE Review of Systems Constitutional: No chills; fever (new today) EENTM: no symptoms reported Respiratory: short of breath Cardiovascular: chest pain Gastrointestinal: abdominal pain; No constipation, No diarrhea, No nausea, No vomiting Genitourinary: no symptoms reported Musculoskeletal: no symptoms reported Skin: no symptoms reported Psychiatric/Neurological: No Symptoms Reported Physical Exam Physical Exam Vital Signs Vital Signs - First Documented 04/26/21 05:32 Pulse 75 Resp 20 B/P (MAP) 185/92 (123) Capillary Refill : Less Than 3 Seconds Height, Weight, BMI Height: 5'9.00" Weight: 250lbs. 0.0oz. 113.894153qz; 45.15 BMI Method:Stated General Appearance: No Apparent Distress, Chronically ill, Obese HEENT: PERRL/EOMI, Moist Mucous Membranes Neck: Normal Inspection, Supple Respiratory: Lungs Clear, No Accessory Muscle Use, No Respiratory Distress Cardiovascular: Systolic Murmur, Irregularly Irregular Gastrointestinal: Normal Bowel Sounds, Soft; No Guarding, No Rebound; Tenderness (right lower quadrant with palpation by hand) Extremity: No Calf Tenderness, No Pedal Edema Neurologic/Psychiatric: Alert, Oriented x3, Normal Mood/Affect Results Results/Procedures Labs Laboratory Tests 04/26/21 05:40 04/27/21 08:03 Patient resulted labs reviewed. Imaging: Reviewed Imaging Report Imaging [facility] [place], [place] NAME: ANDREW PALMER REC#: [id number] PT STATUS: REG ER : 1945 PHYSICIAN: NELLY SMITH DO ADMIT DATE: 04/26/21/ER Signed Date of Exam:04/26/21 CHEST 1 VIEW, AP/PA ONLY INDICATION: Chest pain Portable chest shows cardiomegaly with mild pulmonary venous distention. No infiltrates or effusions are seen. There are degenerative changes of the right shoulder joint. IMPRESSION: There is cardiomegaly with vascular congestion. The vascularity is increased slightly since a prior study from 03/22/2021. Dictated by: Dictated on workstation # [id number] Dict: 04/26/21 0634 Trans: 04/26/21 0704 [place] [id number] Interpreted by: SHAKIR NICHOLE MD Electronically signed by: SHAKIR NICHOLE MD 04/26/21 0704 Assessment/Plan Admission Diagnosis Chest pain Admission Status: Observation Assessment and Plan Chest pain CAD A fib HTN Aortic stenosis Cardiology consulted, appreciate recs positive stress, plan for cath today Monitor on telemetry Morphine for chest pain Continue home xarelto Abdominal pain Has already had her uterus and gallbladder out Surgery consulted appreciate recs Fentanyl for pain as is NPO UA ordered IDDMII Continue home insulin Fever asplenic Unsure of etiology Ppx antibiotics started due to asplenia DVT ppx: xarelto for home meds Diagnosis/Problems Diagnosis/Problems (1) IDDM (insulin dependent diabetes mellitus) Status: Acute (2) Chronic atrial fibrillation Status: Chronic (3) Hypertensive emergency Status: Acute (4) Chest pain Status: Acute Qualifiers: Chest pain type: unspecified Qualified Codes: R07.9 - Chest pain, unspecified (5) Asplenia (6) Generalized weakness Status: Acute Clinical Quality Measures AMI/AHF: ASA po Prior to arrival: Yes (324MG ASA) ILENE FRAUSTO MD Apr 26, 2021 16:07
[2021-04-26] MEDS: cefTRIAXone FOR IV USE 1,000 MG in WATER (STERILE) FOR INJECTION 10 ML IV SCH (16:14)
[2021-04-26] MEDS ORDERED: VANCOMYCIN INJECTION 0.1 MG in NS (IVPB) 250 ML IV SCH (16:15)
[2021-04-26] MEDS ORDERED: VANCOMYCIN 2000 MG/NS 500 ML IVPB IV NR ×2 (16:15)
[2021-04-26] MEDS ORDERED: FLUCONAZOLE 150 MG TABLET (ED ONLY) PO SCH (16:45)
[2021-04-26] MEDS ORDERED: RT-ALBUTEROL SULF 2.5 MG/3 ML PRE-MIX VIAL IH PRN (16:45)
[2021-04-26] MEDS: RIVAROXABAN 20 MG TABLET (XARELTO) PO SCH (17:21)
[2021-04-26] MEDS ORDERED: MIDAZOLAM 5 MG/5 ML (VERSED) VIAL ONE (17:49)
[2021-04-26] MEDS ORDERED: HEParin 1000 UNIT/ML (10ML VIAL) FOR BOLUS ONE (17:50)
[2021-04-26] MEDS ORDERED: NITRO DRIP 25000 MCG/D5W 250 ML IV ONE (17:50)
[2021-04-26] MEDS ORDERED: VERAPAMIL 5 MG/2 ML (CALAN) VIAL IV ONE (17:50)
[2021-04-26] MEDS ORDERED: fentaNYL INJ 100 MCG/2 ML AMP ONE (17:50)
[2021-04-26] MEDS ORDERED: ACETAMINOPHEN 650 MG SUPP (TYLENOL) PR NR (18:00)
[2021-04-26 20:00] VITALS: BP 130/60
[2021-04-26] MEDS: fentaNYL INJ 100 MCG/2 ML AMP IVP PRN (20:01)
[2021-04-26] MEDS ORDERED: NITROGLYCERIN 0.4 MG SL TABS BTL 25'S SL ONE ×2 (20:08→21:00)
[2021-04-26] MEDS ORDERED: NITROGLYCERIN 0.1 MG/PATCH (NITRO-DUR) TD ONE (21:00)
[2021-04-26] MEDS ORDERED: NITROGLYCERIN 2% OINT 1 GM UNIT DOSE PACKET ONE (21:16)
[2021-04-26] MEDS: cloNIDine 0.1 MG (CATAPRES) TAB PO SCH (21:30)
[2021-04-26] MEDS: GABAPENTIN 600 MG (NEURONTIN) TAB PO SCH (21:30)
[2021-04-26] MEDS: busPIRone 15 MG (BUSPAR) TABLET PO SCH (21:30)
[2021-04-26] MEDS: TROSPIUM 20 MG (SANCTURA) TAB PO SCH (21:30)
[2021-04-26] MEDS: inSUlin ASPART (NovoLOG) 1 UNIT/0.01 ML (CHARGE PER UNIT) SC SCH (21:31)
[2021-04-26] MEDS ORDERED: NITROGLYCERIN 2% OINT 1 GM UNIT DOSE PACKET TOP ONE (21:45)
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
[2021-04-26 23:58] VITALS: BP 147/67
[2021-04-27] VITALS (14 sets, daily range): BP systolic 104–144; BP diastolic 33–75
[2021-04-27] MEDS: fentaNYL INJ 100 MCG/2 ML AMP IVP PRN ×3 (03:46→14:26)
[2021-04-27] MEDS: inSUlin ASPART (NovoLOG) 1 UNIT/0.01 ML (CHARGE PER UNIT) SC SCH ×4 (05:54→21:09)
[2021-04-27] MEDS ORDERED: NS IV 1000 ML 1,000 ML IV SCH (08:00)
[2021-04-27] MEDS ORDERED: LIDOCAINE 1% INJ 20 ML 20 ML VIAL ONE (08:07)
[2021-04-27] MEDS ORDERED: HEParin (CATH LAB) 2,000 ML IV ONE (08:07)
--- NOTE | 2021-04-27 08:26 | Cardiology Progress Note ---
Subjective Date Seen by Provider: Apr 27, 2021 Time Seen by Provider: 08:24 Subjective/Events-last exam Patient is laying down in bed, having generalized fatigue, had fever last night Review of Systems General: No Chills, No Night Sweats; Fatigue; No Malaise, No Appetite, No Other HEENT: No Head Aches, No Visual Changes, No Eye Pain, No Ear Pain, No Dysphasia, No Sinus Congestion, No Post Nasal Drip, No Sore Throat, No Other Pulmonary: Dyspnea; No Cough, No Pleuritic Chest Pain, No Other Cardiovascular: Chest Pain; No: Palpitations, Orthopnea, Paroxysmal Noc. Dyspnea, Edema, Lt Headedness, Other Objective-Cardiology Exam Last Set of Vital Signs Vital Signs 04/27/21 07:29 Temp 36.6 Pulse 73 Resp 22 B/P (MAP) 144/75 (98) Pulse Ox 98 O2 Delivery Nasal Cannula O2 Flow Rate 2.00 Capillary Refill : Less Than 3 Seconds I&O Intake and Output 04/27/21 00:00 Intake Total 320 ml Output Total 3500 ml Balance -3180 ml Intake Oral 320 ml Output Urine Total 3500 ml General: Alert, Oriented X3, Cooperative HEENT: Atraumatic, PERRLA Neck: Supple, No JVD, No Thyromegaly Lungs: Clear to Auscultation, Normal Air Movement Heart: Regular Rate, Normal S1, Normal S2, No Murmurs Abdomen: Normal Bowel Sounds, Soft, No Tenderness, No Hepatosplenomegaly, No Masses Extremities: No Clubbing, No Cyanosis, No Edema, Normal Pulses, No Tenderness/Swelling Skin: No Rashes, No Breakdown, No Significant Lesion Neuro: Normal Gait, Normal Speech, Strength at 5/5 X4 Ext, Normal Tone, Sensation Intact Psych/Mental Status: Mental Status NL, Mood NL Results Lab Laboratory Tests Test 04/26/21 12:03 04/26/21 16:28 04/26/21 20:34 04/27/21 05:44 Range/Units Glucometer 174 H 146 H 148 H 177 H 70-110 MG/DL A/P-Cardiology Admission Diagnosis Chest pain Severe pulmonary hypertension Aortic valve stenosis Persistent atrial fibrillation Assessment/Plan Chest pain, nonspecific etiology, reporting some improvement at this time, EKG did not show any acute changes, abnormal stress test, planning to proceed with cardiac catheterization, procedure was canceled yesterday due to fever, afebrile today. Fever, history of MRSA, managed by primary care team Chronic DVT, worsening pedal edema recently, history of urinary incontinence. Continue with diuresis History of moderate aortic valve stenosis, normal left ventricular function with severe pulmonary hypertension, severe mitral regurgitation, moderate aortic regu rgitation, continue to monitor History of patent foramen ovale, 1.1 cm with left to right shunt per 2D echo in May 2015. Continue to monitor Persistent atrial fibrillation, maintained on Xarelto, rate is controlled, continue to monitor [id number] score is 4, yearly risk patient is 4 percent, started on Xarelto, doing well. Continue on current medication. History of chronic chest pain with a normal cardiac catheterization in 2010, repeat cardiac catheterization was done in October 2014 with IVUS done by Dr. Carney and showed 30-40 percent LAD stenosis, 10 percent left main stenosis otherwise nonobstructive disease. Planning to repeat cardiac catheterization- after having abnormal stress test Hypertension, on multiple blood pressure medications, continue to monitor. Hyperlipidemia,controlled, continue to monitor Mild bilateral carotid stenosis, last ultrasound was done in Jul 2020 Obesity, BMI is 35, discussed weight loss Benign essential tremor Diabetes mellitus, managed by Dr. Romero. History of renal cysts, has been followed by Dr. Sethi. History of breast cancer, followed and managed by Dr. Fernández. Bipolar disorder Mnires disease Anxiety Depression COPD/Obstructive sleep apnea not using BiPAP at this time. Degenerative joint disease, multiple hip surgeries, MRSA infection. Now followed and managed by primary care physician Clinical Quality Measures AMI/AHF: ASA po Prior to arrival: Yes (324MG ASA) SHEELA BANUELOS MD Apr 27, 2021 08:26
--- NOTE | 2021-04-27 08:26 | Conscious Sedation/ASA ---
Conscious Sedation Pre-Proced Time 08:26 ASA Score 3 For ASA 3 and 4: Consider anesthesia and medical clearance. Also, for patients with a history of failed moderate sedation consider anesthesia. Airway Lungs Heart ASA score ASA 1: a normal healthy patient ASA 2: a patient with a mild systemic disease (mid diabetes, controlled hypertension, obesity x ASA 3: a patient with a severe systemic disease that limits activity (angina, COPD, prior Myocardial infarction) ASA 4: a patient with an incapacitating disease that is a constant threat to life (CHF, renal failure) ASA 5: a moribund patient not expected to survive 24 hrs. (ruptured aneurysm) ASA 6: a declared brain- patient whose organs are being harvested. For emergent operations, add the letter E after the classification Mallampati Classification Grade 3 Sedation Plan Analgesia, Amnesia, Plan communicated to team members, Discussed options with patient/fam, Discussed risks with patient/fam The patient is an appropriate candidate to undergo the planned procedure, sedation, and anesthesia. The patient immediately re-assessed prior to indication. SHEELA BANUELOS MD Apr 27, 2021 08:26
[2021-04-27 08:33] LABS: HEMATOCRIT 35 % (35-52); HEMOGLOBIN 11.2 g/dL (11.5-16.0); MEAN CORPUSCULAR HEMOGLOBIN 31 pg (25-34); MEAN CORPUSCULAR HGB CONC 32 g/dL (32-36); MEAN CORPUSCULAR VOLUME 97 fL (80-99); MEAN PLATELET VOLUME 11.9 fL (9.0-12.2); PLATELET COUNT 218 10^3/uL (130-400); WHITE BLOOD COUNT 12.8 10^3/uL (4.3-11.0)
[2021-04-27] MEDS: cloNIDine 0.1 MG (CATAPRES) TAB PO SCH ×2 (08:41→20:51)
[2021-04-27] MEDS: FAMOTIDINE 20 MG (PEPCID) TABLET PO SCH (08:41)
[2021-04-27] MEDS: busPIRone 15 MG (BUSPAR) TABLET PO SCH ×3 (08:41→20:51)
[2021-04-27] MEDS: TROSPIUM 20 MG (SANCTURA) TAB PO SCH ×2 (08:41→20:51)
[2021-04-27] MEDS: GABAPENTIN 600 MG (NEURONTIN) TAB PO SCH ×3 (08:41→20:51)
[2021-04-27] MEDS: amLODIPine 5 MG (NORVASC) TAB PO SCH (08:41)
[2021-04-27] MEDS: FUROSEMIDE 40 MG (LASIX) TAB PO SCH (08:41)
[2021-04-27] MEDS: KCL 10 MEQ TAB (MICRO K) PO SCH (08:42)
[2021-04-27] MEDS: OXcarbazepine (TRILEPTAL) 300 MG TAB PO SCH (08:42)
[2021-04-27] MEDS: VITAMIN D3 125 MCG (5,000 UNITS) CAPSULE PO SCH (08:42)
[2021-04-27] MEDS: lisINopril 40 MG (PRINIVIL) TABLET PO SCH (08:42)
[2021-04-27 08:46] LABS: CHLORIDE 101 MMOL/L (98-107); POTASSIUM 4.1 MMOL/L (3.6-5.0); SODIUM 140 MMOL/L (135-145)
[2021-04-27 08:48] LABS: CALCIUM 9.1 MG/DL (8.5-10.1); GLUCOSE 178 MG/DL (70-105)
[2021-04-27 08:50] LABS: CARBON DIOXIDE 26 MMOL/L (21-32)
[2021-04-27 08:52] LABS: CREATININE SERUM 0.86 MG/DL (0.60-1.30); GFR ESTIMATED > 60
[2021-04-27 08:53] LABS: BUN/CREATININE RATIO 15
[2021-04-27] MEDS ORDERED: INSULIN DEGLUDEC 48 UNIT SQ SCH (09:00)
[2021-04-27] MEDS ORDERED: NON-FORMULARY MEDICATION 1 EA EA (Cholecalciferol (Vitamin D3) (Vitamin D3) 125 MCG) PO SCH (09:00)
[2021-04-27] MEDS ORDERED: NON-FORMULARY MEDICATION 1 EA EA (Mirabegron (Myrbetriq) 50 MG) PO SCH (09:00)
[2021-04-27] MEDS: HYDROcodone/APAP 7.5 MG/325 MG (LORTAB, LORCET PLUS) TABLET PO PRN ×2 (09:47→22:04)
--- NOTE | 2021-04-27 09:58 | Progress Note - Hospitalist ---
Subjective HPI/CC On Admission Date Seen by Provider: Apr 27, 2021 Time Seen by Provider: 09:53 Pt is a 75yoCF with a PMH of HTN, IDDMII, splenectomy, pHTN, h/o DVT, a fib, MADELYN, aortic valve stenosis who presented to the ER due chest pain. She reports it is in her mid chest and radiates to her neck, left arm. She was doing a home sleep study and the light started flashing orange. She called [facility] about this and they recommended she seek evaluation in the Er. She called EMS and was given aspirin and nitropaste which helped her pain. She was admitted for a stress test. This was negative and plan is to go to go cath. She now complaints of right sided abdominal pain. She stated it was upper quadrant to the nurse and lower quadrant to me. She was exquisitely tender when the nurse was examining her but was able to tolerate deep palpation with a stethoscope. She also complains of worsening redness in her legs (right worse than left) her swelling is about the same though. Subjective/Events-last exam Pt reports doing well but having back and neck pain. States it is about to kill her though she does not appear to be in any distress and is eating jello. Objective Exam Vital Signs Vital Signs Date Time Temp Pulse Resp B/P (MAP) Pulse Ox O2 Delivery O2 Flow Rate FiO2 04/27/21 08:00 92 Room Air 04/27/21 07:29 36.6 73 22 144/75 (98) 2.00 Capillary Refill : Less Than 3 Seconds General Appearance: No Apparent Distress, Chronically ill, Obese Respiratory: Lungs Clear, No Respiratory Distress Cardiovascular: No Murmur, Irregularly Irregular Gastrointestinal: Normal Bowel Sounds, Soft Neurologic/Psychiatric: Alert, Oriented x3 Results/Procedures Lab Laboratory Tests 04/27/21 08:03 Patient resulted labs reviewed. 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
[2021-04-27 10:01] LABS: BILIRUBIN,URINE NEGATIVE (NEGATIVE); CLARITY,URINE CLEAR; COLOR,URINE YELLOW; GLUCOSE, URINE (UA) NEGATIVE (NEGATIVE); KETONES,URINE NEGATIVE (NEGATIVE); LEUKOCYTE ESTERASE ,URINE TRACE (NEGATIVE); NITRITE,URINE NEGATIVE (NEGATIVE); PROTEIN,URINE 2+ (NEGATIVE)
[2021-04-27 10:10] LABS: BACTERIA,URINE TRACE /HPF; RBC,URINE 0-2 /HPF; SQUAMOUS EPITHELIAL CELL,UR 0-2 /HPF
[2021-04-27] MEDS ORDERED: MIDAZOLAM 5 MG/5 ML (VERSED) VIAL ONE (10:16)
[2021-04-27] MEDS ORDERED: fentaNYL INJ 100 MCG/2 ML AMP ONE (10:16)
[2021-04-27] MEDS ORDERED: NITRO DRIP 25000 MCG/D5W 250 ML IV ONE (11:32)
[2021-04-27] MEDS ORDERED: HEParin 1000 UNIT/ML (10ML VIAL) FOR BOLUS ONE (11:32)
[2021-04-27] MEDS ORDERED: VERAPAMIL 5 MG/2 ML (CALAN) VIAL IV ONE (11:32)
--- NOTE | 2021-04-27 12:09 | Cardiac Cath Report ---
Cardiac Cath Report Physician (s)/Armature Winder (s) Physician SHEELA BANUELOS MD Pre-Procedure Diagnosis Pre-Procedure Diagnosis: Chest pain, coronary artery disease Post-Procedure Note Procedure Start Date: Apr 27, 2021 Name of Procedure: Coronary angiogram Findings/Procedure Note PROCEDURE NOTE: 75-year-old lady admitted with recurrent chest pain, had an abnormal stress test, scheduled for cardiac catheterization. After explaining the procedure to the patient, all pros and cons were explained, all questions were answered. The patient signed the consent and then she was placed on the cardiac catheterization laboratory. Groin was prepped SL fashion local anesthesia was used. Sheath placed in the artery. Romulo right and left catheter were used to access the coronary system. At the end of the procedure the sheath was removed. Closure device FINDINGS: Hemodynamics LV not measured Aorta 144/70 mean of 92 ANATOMY: Left Main is free of obstructive disease Left Anterior Descending has 40 to 50% stenosis at the midportion nonobstructive disease Left Circumflex has mild disease nonobstructive disease Right Coronary Artery has mild disease nonobstructive disease CONCLUSION: 1. Mild coronary artery disease nonobstructive disease DISCUSSION AND RECOMMENDATION: Chest pain is probably noncardiac, abnormal stress test is probably due to extracardiac attenuation Anesthesia Type: Conscious Sedation Estimated blood loss (mL): 15 ml Contrast Amount: 27 ml Total Radiation Dose: 515 mGy Post-Procedure Diagnosis Post-operative diagnosis: Chest pain Coronary artery disease Hypertension Hyperlipidemia (1) Asplenia (2) Abdominal pain (3) Aortic stenosis (4) Chest pain (5) Chronic atrial fibrillation (6) HTN (hypertension) (7) IDDM (insulin dependent diabetes mellitus) (8) Chest wall pain (9) CHF (congestive heart failure) SHEELA BANUELOS MD Apr 27, 2021 12:09 pm
[2021-04-27] MEDS ORDERED: PATIENT MAY USE OWN MEDS, ALL PO SCH (12:15)
[2021-04-27] MEDS: NS IV 1000 ML 1,000 ML IV SCH (14:53)
--- NOTE | 2021-04-27 15:07 | Progress Note - Surgery ---
Subjective Time Seen by a Provider: 09:57 Subjective/Events-last exam Pt seen and examined, states she still has the RLQ and back pain. She appears comfortable but states its really bad. Review of Systems General: Fatigue, Malaise Pulmonary: No Dyspnea, No Cough Cardiovascular: Chest Pain, Palpitations Gastrointestinal: Abdominal Pain; No: Nausea, Vomiting Objective Exam Vital Signs Date Time Temp Pulse Resp B/P (MAP) Pulse Ox O2 Delivery O2 Flow Rate FiO2 04/27/21 13:00 66 04/27/21 08:00 92 Room Air 04/27/21 07:29 36.6 73 22 144/75 (98) 98 Nasal Cannula 2.00 04/27/21 07:00 76 04/27/21 03:05 36.9 73 18 139/66 (90) 94 Room Air 04/27/21 01:00 70 04/26/21 23:58 37.1 92 18 147/67 (93) 95 Room Air 04/26/21 23:04 93 Room Air 04/26/21 21:00 93 Room Air 04/26/21 20:09 36.9 04/26/21 20:00 36.9 89 18 130/60 (83) 93 Room Air 04/26/21 19:00 81 04/26/21 18:29 96 Room Air 04/26/21 18:04 38.7 04/26/21 17:46 38.4 04/26/21 16:00 38.2 87 16 156/77 (103) 91 Room Air I & O 04/27/21 06:59 Intake Total 320 ml Output Total 4100 ml Balance -3780 ml Capillary Refill : Less Than 3 Seconds General Appearance: No Apparent Distress, Chronically ill, Obese HEENT: PERRL/EOMI, Moist Mucous Membranes Neck: Normal Inspection, Supple Respiratory: Lungs Clear, No Respiratory Distress Cardiovascular: No Murmur, Irregularly Irregular Gastrointestinal: soft; No guarding; tenderness (mild in RLQ with deep palpation), hepatomegaly; No spleenomegaly Extremity: No Calf Tenderness, No Pedal Edema Neurologic/Psychiatric: Alert, Oriented x3 Skin: Normal Color, Warm/Dry Lymphatic: No Adenopathy Results Lab Laboratory Tests 04/26/21 16:28: Glucometer 146H 04/26/21 20:34: Glucometer 148H 04/27/21 05:44: Glucometer 177H 04/27/21 08:03: White Blood Count 12.8H, Red Blood Count 3.58L, Hemoglobin 11.2L, Hematocrit 35, Mean Corpuscular Volume 97, Mean Corpuscular Hemoglobin 31, Mean Corpuscular Hemoglobin Concent 32, Red Cell Distribution Width 14.9H, Platelet Count 218, Mean Platelet Volume 11.9, Sodium Level 140, Potassium Level 4.1, Chloride Level 101, Carbon Dioxide Level 26, Anion Gap 13, Blood Urea Nitrogen 13, Creatinine 0.86, Estimat Glomerular Filtration Rate > 60, BUN/Creatinine Ratio 15, Glucose Level 178H, Calcium Level 9.1 04/27/21 09:50: Urine Color YELLOW, Urine Clarity CLEAR, Urine pH 6.0, Urine Specific [place] 1.025H, Urine Protein 2+H, Urine Glucose (UA) NEGATIVE, Urine Ketones NEGATIVE, Urine Nitrite NEGATIVE, Urine Bilirubin NEGATIVE, Urine Urobilinogen 0.2, Urine Leukocyte Esterase TRACEH, Urine RBC (Auto) NEGATIVE, Urine RBC 0-2, Urine WBC 10-25H, Urine Squamous Epithelial Cells 0-2, Urine Crystals NONE, Urine Bacteria TRACE, Urine Casts NONE, Urine Mucus NEGATIVE, Urine Culture Indicated YES 04/27/21 10:39: Glucometer 216H Assessment/Plan Assessment/Plan Assessment/Plan UTI R RLQ Pain - most likely UTI Atrial Fibrillation Chest Pain Morbid Obesity Pt doing ok and I don't think she has any problem that needs surgical attention at this time. Pt is non-surgical and will sign off. Clinical Quality Measures AMI/AHF: ASA po Prior to arrival: Yes (324MG ASA) VENUS WRIGHT DO Apr 27, 2021 15:07
[2021-04-27] MEDS ORDERED: VANCOMYCIN 1,750 MG/NS 500 ML IVPB IV SCH ×2 (16:00)
[2021-04-27] MEDS: cefTRIAXone FOR IV USE 1,000 MG in WATER (STERILE) FOR INJECTION 10 ML IV SCH (16:37)
[2021-04-27] MEDS: RIVAROXABAN 20 MG TABLET (XARELTO) PO SCH (18:15)
[2021-04-28] VITALS: BP 110/53
[2021-04-28 03:45] LABS: HEMATOCRIT 32 % (35-52); HEMOGLOBIN 10.2 g/dL (11.5-16.0); MEAN CORPUSCULAR HEMOGLOBIN 32 pg (25-34); MEAN CORPUSCULAR HGB CONC 32 g/dL (32-36); MEAN CORPUSCULAR VOLUME 99 fL (80-99); MEAN PLATELET VOLUME 11.8 fL (9.0-12.2); PLATELET COUNT 205 10^3/uL (130-400); WHITE BLOOD COUNT 10.7 10^3/uL (4.3-11.0)
[2021-04-28 04:00] VITALS: BP 97/51
[2021-04-28 04:01] LABS: POTASSIUM 3.8 MMOL/L (3.6-5.0)
[2021-04-28 04:02] LABS: CALCIUM 8.7 MG/DL (8.5-10.1)
[2021-04-28] MEDS: NS IV 1000 ML 1,000 ML IV SCH ×2 (04:05→09:20)
[2021-04-28] MEDS: HYDROcodone/APAP 7.5 MG/325 MG (LORTAB, LORCET PLUS) TABLET PO PRN (04:05)
[2021-04-28 04:07] LABS: CREATININE SERUM 1.01 MG/DL (0.60-1.30)
[2021-04-28] MEDS: inSUlin ASPART (NovoLOG) 1 UNIT/0.01 ML (CHARGE PER UNIT) SC SCH ×2 (06:00→13:04)
--- NOTE | 2021-04-28 07:50 | Discharge Summary ---
Diagnosis/Chief Complaint Date of Admission Apr 26, 2021 at 07:31 Date of Discharge Admission Diagnosis Chest pain Primary Care Lb Christine DO Discharge Diagnosis (1) IDDM (insulin dependent diabetes mellitus) Status: Acute (2) Chronic atrial fibrillation Status: Chronic (3) Hypertensive emergency Status: Acute (4) Chest pain Status: Acute (5) Asplenia (6) Generalized weakness Status: Acute Discharge Summary Procedures/Consulations Dr Pavon- Cardiology Dr Howell- Surgery Discharge Physical Exam Allergies: Coded Allergies: Penicillins (Verified Allergy, Mild, 02/19/19) codeine (Verified Allergy, Mild, PT TAKES HYDROCODONE AT HOME, 02/19/19) nitrofurantoin (Verified Allergy, Mild, RASH, 02/19/19) ITCHING/RASH pregabalin (Verified Allergy, Unknown, 02/19/19) sulfur dioxide (Verified Allergy, Unknown, 02/19/19) Vitals & I&Os Vital Signs Date Time Temp Pulse Resp B/P (MAP) Pulse Ox O2 Delivery O2 Flow Rate FiO2 04/28/21 10:19 93 Nasal Cannula 1.00 04/28/21 08:00 37.0 58 18 114/83 (93) General Appearance: No Apparent Distress, WD/WN Cardiovascular: Regular Rate, Rhythm, No Murmur Gastrointestinal: Normal Bowel Sounds, Soft Neurologic/Psychiatric: Alert, Oriented x3 Hospital Course Pt was admitted due to chest pain that developed overnight during her home sleep study. She underwent stress testing that was positive and then had a subsequent cath which was negative. She developed a fever and abdominal pain and surgery was consulted. This resolved on it's own. She was treated with broad spectrum antibiotics due to not having a spleen. She is to continue on keflex at home as she has been. She was discharged home in stable condition to follow up with Dr Christine and Dr Pavon to follow up this hospital stay. Labs (last 24 hrs) Laboratory Tests 04/27/21 15:10: Glucometer 181H 04/27/21 20:54: Glucometer 128H 04/28/21 03:32: White Blood Count 10.7, Red Blood Count 3.24L, Hemoglobin 10.2L, Hematocrit 32L, Mean Corpuscular Volume 99, Mean Corpuscular Hemoglobin 32, Mean Corpuscular Hemoglobin Concent 32, Red Cell Distribution Width 15.4H, Platelet Count 205, Mean Platelet Volume 11.8, Sodium Level 142, Potassium Level 3.8, Chloride Level 103, Carbon Dioxide Level 26, Anion Gap 13, Blood Urea Nitrogen 15, Creatinine 1.01, Estimat Glomerular Filtration Rate 53, BUN/Creatinine Ratio 15, Glucose Level 108H, Calcium Level 8.7 Microbiology 04/27/21 MRSA Screen - Final, Complete MRSA not isolated Patient resulted labs reviewed. Pending Labs Laboratory Tests 04/28/21 03:32: White Blood Count 10.7, Red Blood Count 3.24, Hemoglobin 10.2, Hematocrit 32, Mean Corpuscular Volume 99, Mean Corpuscular Hemoglobin 32, Mean Corpuscular Hemoglobin Concent 32, Red Cell Distribution Width 15.4, Platelet Count 205, Mean Platelet Volume 11.8, Sodium Level 142, Potassium Level 3.8, Chloride Level 103, Carbon Dioxide Level 26, Anion Gap 13, Blood Urea Nitrogen 15, Creatinine 1.01, Estimat Glomerular Filtration Rate 53, BUN/Creatinine Ratio 15, Glucose Level 108, Calcium Level 8.7 Imaging: Reviewed Imaging Report Discussion & Recommendations Discharge Planning: >30 minutes discharge planning Discharge Home Medications: Active Scripts Active Reported Fluconazole 150 Mg Tablet 150 Mg PO Q72H Estradiol 10 Mcg Tablet 10 Mcg VG WED,SAT Cephalexin 250 Mg Capsule 250 Mg PO HS Metolazone 2.5 Mg Tablet 2.5 Mg PO MO,,FR Magnesium Oxide 400 Mg Tablet 400 Mg PO 1200 Myrbetriq (Mirabegron) 50 Mg Tab.er.24h 50 Mg PO DAILY Novolog Flexpen (Insulin Aspart) 300 Units/3 Ml Solution Units SQ AC USES PER SLIDING SCALE Vitamin D3 (Cholecalciferol (Vitamin D3)) 125 Mcg Capsule 125 Mcg PO DAILY K-Tab ER (Potassium Chloride) 10 Meq Tablet.er 10 Meq PO DAILY Carvedilol 12.5 Mg Tablet 12.5 Mg PO BID Albuterol Sulfate 2.5 Mg/3 Ml Vial.neb 2.5 Mg NEB Q6H PRN Proair Hfa (Albuterol Sulfate) 1 Puff Puff 2 Puff IH Q6H PRN Tresiba Flextouch U-100 (Insulin Degludec) 100 Unit/1 Ml Insuln.pen 48 Unit SQ DAILY Famotidine 20 Mg Tablet 20 Mg PO DAILY Gabapentin 600 Mg Tablet 600 Mg PO TID Ocuvite Adult 50 Plus Softgel (C,E,Zinc,Copper 24/Om3/Lut/Rita) 1 Each Capsule 1 Cap PO DAILY Clonidine HCl 0.1 Mg Tablet 0.1 Mg PO 1200 PRN Clonidine HCl 0.1 Mg Tablet 0.1 Mg PO BID HYDROcodone/APAP 7.5/325 TAB (Acetaminophen/Hydrocodone Bitart) 1 Each Tablet 1 Tab PO BID PRN Amlodipine Besylate 5 Mg Tablet 5 Mg PO DAILY Xarelto Tablet (Rivaroxaban) 20 Mg Tablet 20 Mg PO HS Trospium Chloride 20 Mg Tablet 20 Mg PO BID TAKE ON AN EMPTY STOMACH Lisinopril 40 Mg Tablet 40 Mg PO DAILY Metformin HCl 500 Mg Tablet 500 Mg PO BID Oxcarbazepine 300 Mg Tablet 300 Mg PO DAILY Furosemide 40 Mg Tablet 80 Mg PO DAILY TAKES 2 (40MG) TABLETS Buspirone HCl 15 Mg Tablet 15 Mg PO TID Instructions to patient/family Please see electronic discharge instructions given to patient. Clinical Quality Measures AMI/AHF: ASA po Prior to arrival: Yes (324MG ASA) Problem Qualifiers (1) Chest pain: Chest pain type: unspecified Qualified Codes: R07.9 - Chest pain, unspecified ILENE GORMAN MD Apr 28, 2021 07:49
[2021-04-28 08:00] VITALS: BP 114/83
--- NOTE | 2021-04-28 08:12 | Cardiology Progress Note ---
Subjective Date Seen by Provider: Apr 28, 2021 Time Seen by Provider: 08:10 Subjective/Events-last exam Patient is laying down in bed, feeling better. No new complaint Review of Systems General: No Chills, No Night Sweats, No Fatigue, No Malaise, No Appetite, No Other HEENT: No Head Aches, No Visual Changes, No Eye Pain, No Ear Pain, No Dysphasia, No Sinus Congestion, No Post Nasal Drip, No Sore Throat, No Other Pulmonary: No Dyspnea, No Cough, No Pleuritic Chest Pain, No Other Cardiovascular: No: Chest Pain, Palpitations, Orthopnea, Paroxysmal Noc. Dyspnea, Edema, Lt Headedness, Other Objective-Cardiology Exam Last Set of Vital Signs Vital Signs 04/28/21 04/28/21 04/28/21 00:00 04:00 07:00 Temp 37.1 Pulse 56 Resp 16 B/P (MAP) 97/51 (66) Pulse Ox 97 O2 Delivery Nasal Cannula O2 Flow Rate 2.00 Capillary Refill : Less Than 3 Seconds I&O Intake and Output 04/28/21 00:00 Intake Total 650 ml Output Total 1550 ml Balance -900 ml Intake Oral 650 ml Output Urine Total 1550 ml General: Alert, Oriented X3, Cooperative HEENT: Atraumatic, PERRLA Neck: Supple, No JVD, No Thyromegaly Lungs: Clear to Auscultation, Normal Air Movement Heart: Regular Rate, Normal S1, Normal S2, No Murmurs Abdomen: Normal Bowel Sounds, Soft, No Tenderness, No Hepatosplenomegaly, No Masses Extremities: No Clubbing, No Cyanosis, No Edema, Normal Pulses, No Tenderness/Swelling Skin: No Rashes, No Breakdown, No Significant Lesion Neuro: Normal Gait, Normal Speech, Strength at 5/5 X4 Ext, Normal Tone, Sensation Intact Psych/Mental Status: Mental Status NL, Mood NL Results Lab Laboratory Tests 04/28/21 03:32 A/P-Cardiology Admission Diagnosis Chest pain Severe pulmonary hypertension Aortic valve stenosis Persistent atrial fibrillation Assessment/Plan Chest pain, nonspecific etiology, reporting some improvement at this time, cardiac catheterization showed mild coronary artery disease nonobstructive disease Fever, history of MRSA, better today, managed by medical team Chronic DVT, chronic pedal edema, responded to diuretics. History of moderate aortic valve stenosis, normal left ventricular function with severe pulmonary hypertension, severe mitral regurgitation, moderate aortic regurgitation, continue to monitor History of patent foramen ovale, 1.1 cm with left to right shunt per 2D echo in May 2015. Continue to monitor Persistent atrial fibrillation, maintained on Xarelto, rate is controlled, continue to monitor [id number] score is 4, yearly risk patient is 4 percent, started on Xarelto, doing well. Continue on current medication. History of chronic chest pain with a normal cardiac catheterization in 2010, repeat cardiac catheterization was done in October 2014 with IVUS done by Dr. Carney and showed 30-40 percent LAD stenosis, 10 percent left main stenosis otherwise nonobstructive disease. Planning to repeat cardiac catheterization- after having abnormal stress test Hypertension, on multiple blood pressure medications, continue to monitor. Hyperlipidemia,controlled, continue to monitor Mild bilateral carotid stenosis, last ultrasound was done in Jul 2020 Obesity, BMI is 35, discussed weight loss Benign essential tremor Diabetes mellitus, managed by Dr. Romero. History of renal cysts, has been followed by Dr. Sethi. History of breast cancer, followed and managed by Dr. Fernández. Bipolar disorder Mnires disease Anxiety Depression COPD/Obstructive sleep apnea not using BiPAP at this time. Degenerative joint disease, multiple hip surgeries, MRSA infection. Now followed and managed by primary care physician Clinical Quality Measures AMI/AHF: ASA po Prior to arrival: Yes (324MG ASA) SHEELA BANUELOS MD Apr 28, 2021 8:11 am
[2021-04-28] MEDS: amLODIPine 5 MG (NORVASC) TAB PO SCH (08:29)
[2021-04-28] MEDS: FAMOTIDINE 20 MG (PEPCID) TABLET PO SCH (08:29)
[2021-04-28] MEDS: cloNIDine 0.1 MG (CATAPRES) TAB PO SCH (08:29)
[2021-04-28] MEDS: lisINopril 40 MG (PRINIVIL) TABLET PO SCH (08:29)
[2021-04-28] MEDS: busPIRone 15 MG (BUSPAR) TABLET PO SCH ×2 (08:30→13:04)
[2021-04-28] MEDS: KCL 10 MEQ TAB (MICRO K) PO SCH (08:30)
[2021-04-28] MEDS: FUROSEMIDE 40 MG (LASIX) TAB PO SCH (08:30)
[2021-04-28] MEDS: VITAMIN D3 125 MCG (5,000 UNITS) CAPSULE PO SCH (08:30)
[2021-04-28] MEDS ORDERED: METOLAZONE 2.5 MG (ZAROXOLYN) TAB PO SCH (08:30)
[2021-04-28] MEDS: TROSPIUM 20 MG (SANCTURA) TAB PO SCH (08:30)
[2021-04-28] MEDS: GABAPENTIN 600 MG (NEURONTIN) TAB PO SCH ×2 (08:30→13:04)
[2021-04-28] MEDS: OXcarbazepine (TRILEPTAL) 300 MG TAB PO SCH (08:30)
[2021-04-28 09:00] VITALS: BP 117/30
--- NOTE | 2021-04-28 10:27 | D/C HH Face to Face Order ---
D/C Face to Face Orders Instructions for Patient Via [facility], Patient Instructions/FollowUp: Please continue to take your medications as written. Please follow up with your primary care doctor in the next week and with Dr Pavon as scheduled. Physician to follow Patient: Dr Christine Discharge Diet for Home: Cardiac Diet Patient Data-Allergies,Ht & Wt Patient Allergies: Coded Allergies: Penicillins (Verified Allergy, Mild, 02/19/19) codeine (Verified Allergy, Mild, PT TAKES HYDROCODONE AT HOME, 02/19/19) nitrofurantoin (Verified Allergy, Mild, RASH, 02/19/19) ITCHING/RASH pregabalin (Verified Allergy, Unknown, 02/19/19) sulfur dioxide (Verified Allergy, Unknown, 02/19/19) Height (Feet): 5 Height (Inches): 9.00 Weight (Pounds): 250 Weight (Ounces): 0.0 Home Health Need/Face to Face Date of Face to Face: Apr 28, 2021 Clinical Findings: Generalized weakness and fatigue, Shortness of breath I have seen Pt [id number]: Yes Discharged To: Home Diagnosis/Conditions: CHF, aortic stenosis Patient is Homebound due to: Tiffanie fall risk due to instabilty, Muscle weakness Homebound Status Due to the above stated illness, injury or surgical procedure (medical condition or diagnosis) and associated clinical findings, the patient is homebound because of his/her inability to leave home except with aid of a supportive device and/or person AND leaving the home requires a considerable and taxing effort or is medically contraindicated. Pt req the following assistanc: Aid of another person, [facility] Nursing Orders Home Health Services Order: Nursing Services, Insecticide Mixer-Evaluate & Treat, Physical Therapy-Evaluate & Treat Home Health Infusion Therapy Line Start Date: Apr 26, 2021 Therapy Orders Therapy Orders: OT (must have SN or PT order), Physical Therapy Therapy Specific Orders: Eval assistive deivces, Teach enviro modifications/safety, Gait training, Increase strength/endurance Certify Stmt I certify that this patient is under my care and that I, a nurse practitioner or a physician; a boilermaker's assistant working with me, had a face to face encounter that - meets the physician face to face encounter requirements with this patient as dated. ILENE GORMAN MD Apr 28, 2021 10:27
[2021-04-28 11:00] VITALS: BP 97/64
[2021-04-28 12:00] VITALS: BP 114/52
[2021-04-28] MEDS ORDERED: TROUGH ORDER-PHARMACY XX NR (15:00)
[2021-04-29] MEDS ORDERED: fluCOnazole (DIFLUCAN) 100 MG TAB PO SCH (08:00)
== END 2021-04-28 13:50 | disposition home or self-care (01) ==
LOC: EDUNIT# 05:29 → ER 05:30 → CSD 07:31
PROVIDERS: ADMIT Family Medicine; ATTEND Family Medicine
DX: I25.10 Atherosclerotic heart disease of native coronary artery without angina pectoris (principal); E11.9 Type 2 diabetes mellitus without complications; I11.0 Hypertensive heart disease with heart failure; I50.9 Heart failure, unspecified; E78.5 Hyperlipidemia, unspecified; F41.9 Anxiety disorder, unspecified; F32.9 Major depressive disorder, single episode, unspecified; G47.33 Obstructive sleep apnea (adult) (pediatric); J44.9 Chronic obstructive pulmonary disease, unspecified; I35.0 Nonrheumatic aortic (valve) stenosis; E78.00 Pure hypercholesterolemia, unspecified; K21.9 Gastro-esophageal reflux disease without esophagitis; Q89.01 Asplenia (congenital); I16.0 Hypertensive urgency; G89.29 Other chronic pain; M54.9 Dorsalgia, unspecified; I48.19 Other persistent atrial fibrillation; I65.23 Occlusion and stenosis of bilateral carotid arteries; E66.9 Obesity, unspecified; Z68.42 Body mass index [BMI] 45.0-49.9, adult; R53.1 Weakness; Z79.51 Long term (current) use of inhaled steroids; Z79.84 Long term (current) use of oral hypoglycemic drugs; Z79.899 Other long term (current) drug therapy; Z87.891 Personal history of nicotine dependence
CPT/HCPCS: 36415; 51702; 71045; 78452; 80048; 80053; 81000; 82550; 82553; 82947; 83690; 83735; 83874; 83880; 84484; 85025; 85027; 85610; 85730; 87081; 87088; 93005; 93017; 93041; 93306; 93454; 94640; 94761

== ENCOUNTER → 2021-05-01 | Outpatient (CLI) | payer MEDICARE, MEDICAID ==
[~2021-05-01] MED LIST changes: +CEPH250C PO; +ESTR10TA9 VG; +FLUC150T2 PO; +MAGN400T50 PO
== END | disposition home or self-care (01) ==
LOC: ONC 11:07
PROVIDERS: ATTEND Internal Medicine Hematology & Oncology
DX: C50.911 Malignant neoplasm of unspecified site of right female breast (principal); I48.20 Chronic atrial fibrillation, unspecified; I25.10 Atherosclerotic heart disease of native coronary artery without angina pectoris; I08.0 Rheumatic disorders of both mitral and aortic valves; E78.2 Mixed hyperlipidemia; D64.9 Anemia, unspecified; E11.9 Type 2 diabetes mellitus without complications; E66.9 Obesity, unspecified; I27.20 Pulmonary hypertension, unspecified; Z90.11 Acquired absence of right breast and nipple; Z92.21 Personal history of antineoplastic chemotherapy; Z79.01 Long term (current) use of anticoagulants
CPT/HCPCS: 99213

== ENCOUNTER 2021-05-05 22:43 | Emergency (ER) | payer MEDICARE, MEDICAID ==
[~2021-05-05] VITALS: Ht 175.3 cm; Wt 108.9 kg
[2021-05-05 23:08] LABS: BASOPHILS # (AUTO) 0.1 10^3/uL (0.0-0.1); BASOPHILS % (AUTO) 1 % (0-10); EOSINOPHILS # (AUTO) 0.3 10^3/uL (0.0-0.3); EOSINOPHILS % (AUTO) 2 % (0-10); HEMATOCRIT 35 % (35-52); LYMPHOCYTES % (AUTO) 14 % (12-44); MEAN CORPUSCULAR HEMOGLOBIN 31 pg (25-34); MEAN CORPUSCULAR HGB CONC 31 g/dL (32-36); MEAN CORPUSCULAR VOLUME 101 fL (80-99); MEAN PLATELET VOLUME 11.4 fL (9.0-12.2); MONOCYTES # (AUTO) 1.1 10^3/uL (0.0-1.0); MONOCYTES % (AUTO) 8 % (0-12); NEUTROPHILS # (AUTO) 10.5 10^3/uL (1.8-7.8); NEUTROPHILS % (AUTO) 75 % (42-75); PLATELET COUNT 293 10^3/uL (130-400)
[2021-05-05 23:17] LABS: ALBUMIN 3.6 GM/DL (3.2-4.5); POTASSIUM 4.2 MMOL/L (3.6-5.0)
[2021-05-05 23:18] LABS: CALCIUM 9.9 MG/DL (8.5-10.1)
[2021-05-05 23:20] LABS: TOTAL PROTEIN 7.8 GM/DL (6.4-8.2)
[2021-05-05 23:21] LABS: BILIRUBIN,TOTAL 0.3 MG/DL (0.1-1.0)
[2021-05-05 23:23] LABS: CREATININE SERUM 1.01 MG/DL (0.60-1.30)
[2021-05-05 23:26] LABS: MAGNESIUM 2.1 MG/DL (1.6-2.4)
[2021-05-05 23:34] LABS: CREATINE KINASE MB 0.9 NG/ML (<6.6)
[2021-05-05 23:35] LABS: INR 1.3 (0.8-1.4)
[2021-05-06] MEDS ORDERED: KETOROLAC 30 MG/ML VIAL IVP ONE (00:15)
[2021-05-06] MEDS ORDERED: FUROSEMIDE 40 MG/4 ML INJ (LASIX) IVP ONE (00:15)
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
[2021-05-06 03:00] VITALS: BP 170/72
--- NOTE | 2021-05-06 06:13 | Diagnostic Imaging Report ---
INDICATION: Chest pain. TECHNIQUE: Single view chest 1100 p.m. CORRELATION STUDY: 04/26/2021 FINDINGS: Heart size is enlarged. Vasculature appears increased from prior. The lungs are clear with no consolidating infiltrate. There is no significant effusion or pneumothorax. Rather advanced degenerative changes of the right shoulder. IMPRESSION: 1. Cardiac enlargement with increased vascularity suggesting early fluid overload or failure. Dictated by: Dictated on workstation # [id number]
== END 2021-05-06 03:20 | disposition home or self-care (01) ==
LOC: EDUNIT# 22:43 → ER 22:45
DX: I11.0 Hypertensive heart disease with heart failure (principal); I50.9 Heart failure, unspecified; I48.20 Chronic atrial fibrillation, unspecified; E11.319 Type 2 diabetes mellitus with unspecified diabetic retinopathy without macular edema; J44.9 Chronic obstructive pulmonary disease, unspecified; F41.9 Anxiety disorder, unspecified; F31.9 Bipolar disorder, unspecified; I25.10 Atherosclerotic heart disease of native coronary artery without angina pectoris; I25.2 Old myocardial infarction; K21.9 Gastro-esophageal reflux disease without esophagitis; F03.90 Unspecified dementia, unspecified severity, without behavioral disturbance, psychotic disturbance, mood disturbance, and anxiety; G89.29 Other chronic pain; M54.9 Dorsalgia, unspecified; G47.30 Sleep apnea, unspecified; M79.7 Fibromyalgia; E66.9 Obesity, unspecified; Z68.35 Body mass index [BMI] 35.0-35.9, adult; Z99.89 Dependence on other enabling machines and devices; Z87.891 Personal history of nicotine dependence; Z95.9 Presence of cardiac and vascular implant and graft, unspecified; Z79.4 Long term (current) use of insulin; Z79.891 Long term (current) use of opiate analgesic; Z79.01 Long term (current) use of anticoagulants; Z79.899 Other long term (current) drug therapy
CPT/HCPCS: 36415; 71045; 80053; 82150; 82550; 82553; 83690; 83735; 83874; 83880; 84484; 85025; 85610; 85730; 93005; 93041

== ENCOUNTER 2021-05-18 17:01 | Inpatient (IN) | payer MEDICARE, MEDICAID ==
[~2021-05-18] VITALS: Ht 175.3 cm; Wt 130.0 kg
[2021-05-18 17:22] LABS: BASOPHILS % (AUTO) 0 % (0-10); EOSINOPHILS # (AUTO) 0.3 10^3/uL (0.0-0.3); EOSINOPHILS % (AUTO) 3 % (0-10); HEMATOCRIT 36 % (35-52); HEMOGLOBIN 10.9 g/dL (11.5-16.0); LYMPHOCYTES # (AUTO) 2.3 10^3/uL (1.0-4.0); LYMPHOCYTES % (AUTO) 24 % (12-44); MEAN CORPUSCULAR HEMOGLOBIN 31 pg (25-34); MEAN CORPUSCULAR HGB CONC 30 g/dL (32-36); MEAN CORPUSCULAR VOLUME 101 fL (80-99); MEAN PLATELET VOLUME 11.4 fL (9.0-12.2); MONOCYTES # (AUTO) 0.6 10^3/uL (0.0-1.0); MONOCYTES % (AUTO) 6 % (0-12); NEUTROPHILS # (AUTO) 6.5 10^3/uL (1.8-7.8); NEUTROPHILS % (AUTO) 66 % (42-75); PLATELET COUNT 246 10^3/uL (130-400); WHITE BLOOD COUNT 9.9 10^3/uL (4.3-11.0)
[2021-05-18 17:43] LABS: BILIRUBIN,URINE NEGATIVE (NEGATIVE); CLARITY,URINE CLEAR; COLOR,URINE YELLOW; GLUCOSE, URINE (UA) NEGATIVE (NEGATIVE); KETONES,URINE NEGATIVE (NEGATIVE); LEUKOCYTE ESTERASE ,URINE 2+ (NEGATIVE); NITRITE,URINE NEGATIVE (NEGATIVE); PH,URINE 5.5 (5-9); PROTEIN,URINE TRACE (NEGATIVE)
[2021-05-18 17:52] LABS: BACTERIA,URINE MODERATE /HPF; SQUAMOUS EPITHELIAL CELL,UR 0-2 /HPF; WBC,URINE 25-50 /HPF
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
[2021-05-18] MEDS ORDERED: cefTRIAXone 1,000 MG in WATER (STERILE) FOR INJECTION 10 ML IV STA (18:19)
--- NOTE | 2021-05-18 18:19 | Diagnostic Imaging Report ---
EXAMINATION: Chest 1 view HISTORY: Shortness of breath. Cough. COMPARISON: 05/05/2021. FINDINGS: Stable cardiomegaly with central pulmonary vascular congestion. No focal consolidation. No large pleural effusion or pneumothorax. No acute osseous abnormalities. IMPRESSION: 1. Cardiomegaly with central pulmonary vascular congestion. No overt pulmonary edema. Dictated by: Dictated on workstation # [id number]
[2021-05-18 19:04] LABS: ALBUMIN 3.7 GM/DL (3.2-4.5); POTASSIUM 3.9 MMOL/L (3.6-5.0)
[2021-05-18 19:05] LABS: CALCIUM 9.6 MG/DL (8.5-10.1)
[2021-05-18 19:06] LABS: TOTAL PROTEIN 8.1 GM/DL (6.4-8.2)
[2021-05-18 19:08] LABS: BILIRUBIN,TOTAL 0.3 MG/DL (0.1-1.0)
[2021-05-18 19:10] LABS: CREATININE SERUM 1.53 MG/DL (0.60-1.30)
[2021-05-18 20:20] VITALS: BP 135/72
[2021-05-18] MEDS: 1/2 NS W/KCL 20 MEQ/L 1,000 ML IV SCH (21:25)
[2021-05-19] VITALS (7 sets, daily range): BP systolic 137–149; BP diastolic 62–84
[2021-05-19] MEDS: 1/2 NS W/KCL 20 MEQ/L 1,000 ML IV SCH ×2 (06:26→16:39)
[2021-05-19 06:30] LABS: ALBUMIN 3.1 GM/DL (3.2-4.5); POTASSIUM 4.1 MMOL/L (3.6-5.0)
[2021-05-19 06:31] LABS: CALCIUM 8.7 MG/DL (8.5-10.1)
[2021-05-19 06:34] LABS: BILIRUBIN,TOTAL 0.3 MG/DL (0.1-1.0)
[2021-05-19] MEDS: inSUlin ASPART (NovoLOG) 1 UNIT/0.01 ML (CHARGE PER UNIT) SC SCH ×5 (06:35→19:51)
[2021-05-19 06:36] LABS: CREATININE SERUM 1.1 MG/DL (0.60-1.30)
[2021-05-19 07:20] LABS: BASOPHILS % (AUTO) 0 % (0-10); EOSINOPHILS # (AUTO) 0.3 10^3/uL (0.0-0.3); EOSINOPHILS % (AUTO) 3 % (0-10); HEMATOCRIT 36 % (35-52); HEMOGLOBIN 11.2 g/dL (11.5-16.0); LYMPHOCYTES # (AUTO) 1.5 10^3/uL (1.0-4.0); LYMPHOCYTES % (AUTO) 15 % (12-44); MEAN CORPUSCULAR HEMOGLOBIN 31 pg (25-34); MEAN CORPUSCULAR HGB CONC 31 g/dL (32-36); MEAN CORPUSCULAR VOLUME 100 fL (80-99); MEAN PLATELET VOLUME 11.2 fL (9.0-12.2); MONOCYTES # (AUTO) 0.5 10^3/uL (0.0-1.0); MONOCYTES % (AUTO) 5 % (0-12); NEUTROPHILS # (AUTO) 7.5 10^3/uL (1.8-7.8); NEUTROPHILS % (AUTO) 77 % (42-75); PLATELET COUNT 250 10^3/uL (130-400); WHITE BLOOD COUNT 9.8 10^3/uL (4.3-11.0)
[2021-05-19] MEDS: ACETAMINOPHEN 500 MG TAB (TYLENOL) PO PRN ×3 (07:50→22:21)
--- NOTE | 2021-05-19 09:32 | Physical Therapy Evaluation ---
PT Evaluation-General Medical Diagnosis Admission Date May 18, 2021 at 19:15 Medical Diagnosis: UTI/dehydration/acute renal insufficency Onset Date: May 18, 2021 Therapy Diagnosis Therapy Diagnosis: debility/weakness Height/Weight Height (Feet): 5 Height (Inches): 9.00 Weight (Pounds): 250 Weight (Ounces): 0.0 Precautions Precautions/Isolations: Standard Precautions Referral Physician: Yo Reason for Referral: Evaluation/Treatment Medical History Pertinent Medical History: Atrial Fib, Arthritis, Breast CA S/P Mastectomy, COPD, DM, Fractures, HTN Additional Medical History morbid obesity Current History ER secondary to inability to care for self and will dismiss to [place]. Reviewed History: Yes Social History Home: Assisted Living Prior Prior Level of Function SCALE: Activities may be completed with or without assistive devices. 2-Mylutdhetj-xtdzvhg completes the activity by him/herself with no assistance f rom a helper. 5-Set-up or Clean-up Assistance-helper sets up or cleans up; patient completes activity. [place] assists only prior to or following the activity. 4-Supervision or Touching Assistance-helper provides verbal cues and/or touching/steadying and/or contact guard assistance as patient completes activity. Assistance may be provided throughout the activity or intermittently. 3-Partial/Moderate Assistance-helper does LESS THAN HALF the effort. [place] lifts, holds or supports trunk or limbs, but provides less than half the effort. 2-Substantial/Maximal Assistance-helper does MORE THAN HALF the effort. [place] lifts or holds trunk or limbs and provides more than half the effort. 4-Uveuhsgbz-wkvjfm does ALL the effort. Patient does none of the effort to complete the activity. Or, the assistance of 2 or more helpers is required for the patient to complete the activity. If activity was not attempted, code reason: 7-Patient Refused. 9-Not Applicable-not attempted and the patient did not perform the activity before the current illness, exacerbation or injury. 10-Not Attempted due to Environmental Limitations-(lack of equipment, weather restraints, etc.). 88-Not Attempted due to Medical Conditions or Safety Concerns. Bed Mobility: 2 Transfers (B,C,W/C): 2 Gait: 2 Stairs: 9 Indoor Mobility (Ambulation): Needed Some Help Stairs: Not Applicalbe Prior Devices Use: Manual wheelchair, Walker PT Evaluation-Current Subjective Patient states,"I'm not getting up unless you have a Lift and a lot of people. I am not able to do anything." Objective Patient Orientation: Normal For Age Attachments: Baker Catheter, IV ROM/Strength ROM Lower Extremities bilateral LE limited due to obesity Strength Lower Extremities 2-/5 grossly bilateral LE Integumentary/Posture Integumentary refer to nursing notes Bowel Incontinence: Yes Bladder Incontinence: Yes Neuromuscular (Tone, Coordination, Reflexes) diminished coordination LE's due to weakness/debility Sensory Vision: Functional Hearing: Functional Transfers Roll Left to Right (QC): 1 (x 3) Sit to Lying (QC): 7 Lying to Sitting/Side of Bed(Q: 7 Sit to Stand (QC): 88 Chair/Sgw-ip-Cryrl Xfer(QC): 7 Patient refused to perform EOB or OOB activity. Gait Does the Patient Walk?: No and Walking Goal NOT indicated Assessment/Needs 75 y.o. female, is currently a [place] Lift transfer due to weakness/debility and morbid obesity. Nursing staff to perform [place] transfers due to patient not requiring skilled therapy intervention. Rehab Potential: Poor PT Plan Treatment/Plan Treatment Plan: Discontinue PT, goals met Treatment Duration: May 19, 2021 Frequency: 1 time per week Estimated Hrs Per Day: .25 hour per day Patient and/or Family Agrees t: Yes Discharge Recommendations Therapy Discharge Recommendati: Other, See Comments (longterm) Time/GCodes Time In: 902 Time Out: 917 Total Billed Treatment Time: 15 Total Billed Treatment 1 visit EVMod 15 min NATASHA TINEO PT May 19, 2021 09:32
--- NOTE | 2021-05-19 11:39 | Occupational Therapy Eval ---
OT Evaluation-General/PLF Medical Diagnosis Admission Date May 18, 2021 at 19:15 Medical Diagnosis: UTI/dehydration/acute renal insufficency Onset Date: May 18, 2021 Therapy Diagnosis Therapy Diagnosis: Decreased ADL status Height/Weight Height (Feet): 5 Height (Inches): 9.00 Weight (Pounds): 250 Weight (Ounces): 0.0 Precautions Precautions/Isolations: Standard Precautions Referral Physician: Yo Referral Reason: Activity Tolerance, Self Care, Evaluation/Treatment, Strengthening/ROM Medical History Pertinent Medical History: Atrial Fib, Arthritis, Breast CA S/P Mastectomy, COPD, DM, Fractures, HTN Additional Medical History arthritis, CTS, chronic LE pain. Current History dizziness/ generalized weakness that was progressing. Admitted to ED from [facility]. Dehydration with acute renal insufficiency. Reviewed History: Yes Social History Home: Assisted Living ADL-Prior Level of Function SCALE: Activities may be completed with or without assistive devices. 0-Zndhwevyxt-hbwsnui completes the activity by him/herself with no assistance from a helper. 5-Set-up or Clean-up Assistance-helper sets up or cleans up; patient completes activity. [place] assists only prior to or following the activity. 4-Supervision or Touching Assistance-helper provides verbal cues and/or touching/steadying and/or contact guard assistance as patient completes activity. Assistance may be provided throughout the activity or intermittently. 3-Partial/Moderate Assistance-helper does LESS THAN HALF the effort. [place] lifts, holds or supports trunk or limbs, but provides less than half the effort. 2-Substantial/Maximal Assistance-helper does MORE THAN HALF the effort. [place] lifts or holds trunk or limbs and provides more than half the effort. 3-Pecxkgeko-ypulwf does ALL the effort. Patient does none of the effort to complete the activity. Or, the assistance of 2 or more helpers is required for the patient to complete the activity. If activity was not attempted, code reason: 7-Patient Refused. 9-Not Applicable-not attempted and the patient did not perform the activity before the current illness, exacerbation or injury. 10-Not Attempted due to Environmental Limitations-(lack of equipment, weather restraints, etc.). 88-Not Attempted due to Medical Conditions or Safety Concerns. ADL PLOF Comments Pt required assist with dressing, bathing, toileting assist. Pt was able to transfer with mod I/ assist intermittently. Use of walker, w/c and TTB. Self Care: Needed Some Help Functional Cognition: Needed Some Help DME/Equipment: Bath Chair DME/Equipment Comments walker/ w/c. Drive Self: No OT Current Status Subjective Pt AxO, seen laying in bed. teacher aide present. Pt agrees to tx. present. Pt expresses 10/10 pain in spine/ coccyx. Denies repositioning. Agrees to evaluation. Mental Status/Objective Patient Orientation: Person, Place, Situation Attachments: Oxygen, Other-See Comments (pure wick) Current Glasses/Contacts: Yes Hearing Aids: No Dentures/Partials: No Hand Dominance: Right Upper Extremity ROM R shoulder decreased (~1/2 available AROM), distal WFL L WFL Upper Extremity Coordination decreased- tremors noted. Upper Extremity Sensation DNT Upper Extremity Strength Decreased BUE, though functional. Edema: slight BLE. ADL-Treatment Eating (QC): 6 Oral Hygiene (QC): 6 (in bed, per clinical judgment, would be IND) Shower/Bathe Self (QC): 1 (jordi necessary, TD per clinical judgment. ) On/Off Footwear (QC): 1 Toileting Hygiene (QC): 1 (completes roll in bed with min A and max cues for positioning. Pt is wiped after she states she had BM, no BM present.) Other Treatments Pt completes MMT/ ROM screening. Pt able to provide hx, clarifies at times. Pt expresses progressive weakness/ unable to get out of chair. Pt expresses pain/ weakness and denies OOB tasks with jordi lift. Pt educated to keep LEs elevated, pillows gathered and placed. Pt states she had BM. Pt rolls to L side with increased time, min A and cues for positioning. Pt is wiped TD. Educated on continued OT for generalized strengthening and adaptive techniques/ ADL tasks. Pt completes AROM of BUE and is educated on BLE and core strengthening activities. Pt agrees, pt left in bed with all needs met, call light in reach Education OT Patient Education: Correct positioning, Exercise program, Home exercise program, Purpose of tx/functional activities Teaching Recipient: Patient Teaching Methods: Demonstration, Discussion Response to Teaching: Verbalize Understanding, Return Demonstration OT Clinical Trials Specialist Goals Mcfp Goals Time Frame: May 26, 2021 Eating (QC): 6 Oral Hygiene (QC): 6 Toileting Hygiene (QC): 2 Shower/Bathe Self (QC): 2 Upper Body Dressing (QC): 5 Lower Body Dressing (QC): 2 On/Off Footwear (QC): 1 per / pt, above scores are PLOF. Additional Goals: 1-Demonstrate ADL Tasks, 2-Verbalize Understanding, 3- ImproveStrength/Brodie 1=Demonstrate adherence to instructed precautions during ADL tasks. 2=Patient will verbalize/demonstrate understanding of assistive devices/modif ications for ADL. 3=Patient will improve strength/tolerance for activity to enable patient to perform ADL's. OT Education/Plan Problem List/Assessment Assessment: Decreased Activ Tolerance, Decreased UE Strength, Dependent Transfers, Edema, Impaired Bed Mobility, Impaired Cognition, Impaired Coordination, Impaired Funct Balance, Impaired I ADL's, Impaired Self-Care Skills, Restricted Funct UE ROM Discharge Recommendations Plan/Recommendations: Follow-up Planned Therapy Discharge Recommendati: 24 Hour Supervision, Post Acute OT Treatment Plan/Plan of Care Treatment,Training & Education: Yes Patient would benefit from OT for education, treatment and training to promote independence in ADL's, mobility, safety and/or upper extremity function for ADL's. Plan of Care: ADL Retraining, Caregiver Training, Functional Mobility, UE Funct Exercise/Act, W/C Management Training Treatment Duration: May 26, 2021 Frequency: 5 times per week Estimated Hrs Per Day: .25 hour per day Agreement: Yes Rehab Potential: Guarded Time/GCodes Start Time: 11:17 Stop Time: 11:30 Total Time Billed (hr/min): 13 Billed Treatment Time JULIO Mondragon (13HUSAM SHAW OTR May 19, 2021 11:39
[2021-05-19] MEDS ORDERED: ONDANSETRON 4 MG/2 ML (SDV) Z0FRAN IVP PRN (12:45)
[2021-05-19] MEDS ORDERED: MECL-149 PO (12:55)
[2021-05-19] MEDS ORDERED: INSU100I23 SQ (13:07)
--- NOTE | 2021-05-19 13:30 | History & Physical-Hospitalist ---
History of Present Illness HPI/Chief Complaint Agata Pringle is a 75-year-old female with past medical history of hypertension, diabetes, obstructive sleep apnea, atrial fibrillation, aortic valve stenosis, history of DVT, history of splenectomy, who presented with weakness. This has been a chronic issue but has been worsening recently. She has also complained of dizziness. She denies any fevers or chills. She does have some right lower abdomen discomfort. She denies any nausea or vomiting. She denies any diarrhea. She denies any shortness of breath or cough. She does not think that she can take care of herself at home anymore and requests to be placed in a jail. Source: patient Exam Limitations: no limitations Date Seen 05/19/21 Time Seen by a Provider: 09:50 Attending Physician Michelle Ram DO PCP Lb Christine DO Referring Physician Date of Admission May 18, 2021 at 19:15 Home Medications & Allergies Home Medications Reviewed patient Home Medication Reconciliation performed by pharmacy medication reconciliations rvda master certified rv technician and/or nursing. Patients Allergies have been reviewed. Allergies Allergies Coded Allergies Penicillins (Verified Allergy, Mild, 02/19/19) codeine (Verified Allergy, Mild, PT TAKES HYDROCODONE AT HOME, 02/19/19) nitrofurantoin (Verified Allergy, Mild, RASH, 02/19/19) ITCHING/RASH pregabalin (Verified Allergy, Unknown, 02/19/19) sulfur dioxide (Verified Allergy, Unknown, 02/19/19) Past Pfhrqsj-Gbzgmi-Cchfbw Hx Patient Social History Tobacco Use?: No Smoking Status: Never a Smoker Smokeless Tobacco Frequency: Never a User Use of E-Cig and/or Vaping dev: No Substance use?: No Alcohol Use?: No Pt feels they are or have been: No Immunizations Up To Date Date of Influenza Vaccine: Aug 25, 2020 Tetanus Booster (TDap): Unknown Hepatitis A: No Hepatitis B: No PED Vaccines UTD: Yes Date of Pneumonia Vaccine: Sep 05, 2012 Seasonal Allergies Seasonal Allergies: Yes (pollen) Current Status Advance Directives: Yes Advance Directive Location: Home Communicates: Verbally Primary Language: Ukrainian Preferred Spoken Language: Ukrainian Is interpretation needed?: No Sensory deficits: Hearing impairment Implanted or Applied Medical D: None Past Medical History Surgeries: Abdominal, Amputation, Appendectomy, Bladder Surgery, Breast, Cardiac, Eye Surgery, Gallbladder, 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, Orthopedic, Tonsillectomy, Vascular Surgery Pneumonia, Chronic Bronchitis, Pulmonary Embolism, Sleep Apnea, COPD Currently Using CPAP: Yes Currently Using BIPAP: No Atrial Fibrillation, Chronic Edema/Swelling, Coronary Artery Disease, Deep Vein Thrombosis, Heart Attack, Heart Murmur, High Cholesterol, Hypertension, Syncope, Valvular Heart Disease Dementia, Vertigo 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, Menopausal Sexually Transmitted Disease: No HIV/AIDS: No Renal Failure, UTI-Chronic Abdominal Hernia, Colitis, Gastroesophageal Reflux, Hemorrhoids, Ulcer Arthritis, Fibromyalgia, Chronic Back Pain, Fractures Diabetes, Insulin dep Cataract, Macular Degeneration Loss of Vision: Denies Hearing Impairment: Hard of Hearing Breast Did You Recieve Any Treatments: Yes What Type of Treatment Did You: Chemotherapy, Surgical Intervention Anxiety, Bipolar, Depression Pruritis Blood Disorders: Yes (DVT'S/ P.E.'S / PHLEBITIS) Adverse Reaction/Blood Tranf: No Family Medical History Reviewed Nursing Family Hx BULBAR POLIO G8 BROTHER Diabetes mellitus G8 BROTHER UNCLE FH: cancer G8 BROTHER FH: kidney cancer G8 SISTER Cancer, Diabetes, Hypertension PT STATES SHE IS DNR/DNI Review of Systems Constitutional: no symptoms reported EENTM: no symptoms reported Respiratory: no symptoms reported Cardiovascular: no symptoms reported Gastrointestinal: abdominal pain Genitourinary: no symptoms reported Musculoskeletal: no symptoms reported Skin: no symptoms reported Psychiatric/Neurological: No Symptoms Reported Physical Exam Physical Exam Vital Signs Vital Signs - First Documented 05/18/21 17:08 Temp 36.2 Pulse 71 Resp 18 B/P (MAP) 138/99 (112) Pulse Ox 100 O2 Delivery Nasal Cannula O2 Flow Rate 2.00 Capillary Refill : Less Than 3 Seconds Height, Weight, BMI Height: 5'9.00" Weight: 250lbs. 0.0oz. [id number]; 42.30 BMI Method:Stated General Appearance: No Apparent Distress, Obese HEENT: PERRL/EOMI, Pharynx Normal Neck: Normal Inspection, Supple Respiratory: No Respiratory Distress, Decreased Breath Sounds Cardiovascular: Regular Rate, Rhythm, No Murmur Gastrointestinal: Normal Bowel Sounds, Soft, Tenderness Extremity: Non Tender, Pedal Edema Neurologic/Psychiatric: Alert, Oriented x3, No Motor/Sensory Deficits, Normal Mood/Affect Skin: Normal Color, Warm/Dry Results Results/Procedures Labs Laboratory Tests 05/18/21 17:00 05/18/21 18:20 05/19/21 05:40 05/19/21 07:11 Patient resulted labs reviewed. Imaging: Reviewed Imaging Report Assessment/Plan Admission Diagnosis Urinary tract infection Admission Status: Inpatient Order (span 2 midnights) Reason for Inpatient Admission: IV antibiotics Assessment and Plan UTI UA consistent with UTI Urine culture with gram negative swati Await cultures Started on Rocephin Acute kidney injury IV fluids T2DM Hold home insulin and metformin Give Levemir 20 units now Begin Levemir 30 units daily tomorrow Novolog 5 units with meals Sliding scale insulin Debility PT/OT Social work assisting with placement HTN MADELYN AFib Aortic stenosis History of DVT/PE Continue home meds Morbid obesity Clinically significant, no acute management needs DVT prophylaxis: Already receiving therapeutic anticoagulation Diagnosis/Problems Diagnosis/Problems (1) UTI (urinary tract infection) Status: Acute Qualifiers: Urinary tract infection type: site unspecified Hematuria presence: without hematuria Qualified Codes: N39.0 - Urinary tract infection, site not specified (2) VICKIE (acute kidney injury) (3) Generalized weakness Status: Acute (4) HTN (hypertension) Status: Chronic (5) Aortic stenosis Status: Chronic (6) Atrial fibrillation Status: Chronic (7) IDDM (insulin dependent diabetes mellitus) Status: Chronic (8) Morbid obesity Status: Chronic KELY WEBSTER MD May 19, 2021 13:30
--- NOTE | 2021-05-19 14:22 | Physical Therapy Daily Note ---
PT Daily Note-Current Subjective Patient continues to decline to perform EOB mobility stating, "I can't. My head is floating. I'm wet. You can clean me up." Mental Status Attachments: Oxygen, IV Transfers SCALE: Activities may be completed with or without assistive devices. 2-Mfblbryupa-qhugmvy completes the activity by him/herself with no assistance from a helper. 5-Set-up or Clean-up Assistance-helper sets up or cleans up; patient completes activity. [place] assists only prior to or following the activity. 4-Supervision or Touching Assistance-helper provides verbal cues and/or touching/steadying and/or contact guard assistance as patient completes a ctivity. Assistance may be provided throughout the activity or intermittently. 3-Partial/Moderate Assistance-helper does LESS THAN HALF the effort. [place] lifts, holds or supports trunk or limbs, but provides less than half the effort. 2-Substantial/Maximal Assistance-helper does MORE THAN HALF the effort. [place] lifts or holds trunk or limbs and provides more than half the effort. 6-Rivkspgvp-ildgzj does ALL the effort. Patient does none of the effort to complete the activity. Or, the assistance of 2 or more helpers is required for the patient to complete the activity. If activity was not attempted, code reason: 7-Patient Refused. 9-Not Applicable-not attempted and the patient did not perform the activity before the current illness, exacerbation or injury. 10-Not Attempted due to Environmental Limitations-(lack of equipment, weather restraints, etc.). 88-Not Attempted due to Medical Conditions or Safety Concerns. Roll Left & Right (QC): 1 (x 3 ) Sit to Lying (QC): 7 Lying to Sitting/Side of Bed(Q: 7 Sit to Stand (QC): 7 Chair/Iht-pc-Hiozx Xfer(QC): 7 Assessment SW requested PT to reassess secondary to patient telling SW she walks 25' with a walker and sleeps in a left chair. Findings remain the same. Patient does sleep in a lift chair, however, patient continued to state she has not walked or transferred her self for several weeks. Patient demands staff use a [place] Lift. PT attempted to educate patient on importance of performing OOB activity, however, patient states it will take her several days to even attempt. PT did cleanse and change patient. 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 PT Plan Treatment/Plan Treatment Plan: Discontinue PT Treatment Duration: May 19, 2021 Frequency: 1 time per week Estimated Hrs Per Day: .25 hour per day Patient and/or Family Agrees t: Yes Discharge Recommendations Therapy Discharge Recommendati: Other, See Comments ([facility] facility) Time/GCodes Time In: 1315 Time Out: 1330 Total Billed Treatment Time: 15 Total Billed Treatment 1 visit ReEval 15 min NATASHA TINEO PT May 19, 2021 14:22
[2021-05-19] MEDS: RIVAROXABAN 20 MG TABLET (XARELTO) PO SCH (16:38)
[2021-05-19] MEDS: TROSPIUM 20 MG (SANCTURA) TAB PO SCH (16:38)
[2021-05-19] MEDS ORDERED: cefTRIAXone 1,000 MG/SWFI 10 ML IV PUSH IV SCH ×2 (18:00)
[2021-05-19] MEDS: busPIRone 15 MG (BUSPAR) TABLET PO SCH (20:24)
[2021-05-19] MEDS: cloNIDine 0.1 MG (CATAPRES) TAB PO SCH (20:24)
[2021-05-19] MEDS: GABAPENTIN 600 MG (NEURONTIN) TAB PO SCH (20:24)
[2021-05-20] MEDS: 1/2 NS W/KCL 20 MEQ/L 1,000 ML IV SCH (04:52)
[2021-05-20 05:00] VITALS: BP 117/61
[2021-05-20] MEDS: inSUlin ASPART (NovoLOG) 1 UNIT/0.01 ML (CHARGE PER UNIT) SC SCH ×7 (06:05→21:00)
[2021-05-20] MEDS: TROSPIUM 20 MG (SANCTURA) TAB PO SCH ×2 (07:46→16:45)
[2021-05-20 08:00] VITALS: BP 181/84
[2021-05-20] MEDS: amLODIPine 5 MG (NORVASC) TAB PO SCH (08:38)
[2021-05-20] MEDS: GABAPENTIN 600 MG (NEURONTIN) TAB PO SCH ×3 (08:38→19:59)
[2021-05-20] MEDS: OXcarbazepine (TRILEPTAL) 300 MG TAB PO SCH (08:38)
[2021-05-20] MEDS: busPIRone 15 MG (BUSPAR) TABLET PO SCH ×3 (08:38→19:59)
[2021-05-20] MEDS: ACETAMINOPHEN 500 MG TAB (TYLENOL) PO PRN (08:38)
[2021-05-20] MEDS: FUROSEMIDE 40 MG (LASIX) TAB PO SCH (08:39)
[2021-05-20] MEDS: FAMOTIDINE 20 MG (PEPCID) TABLET PO SCH (08:39)
[2021-05-20] MEDS: lisINopril 40 MG (PRINIVIL) TABLET PO SCH (08:41)
[2021-05-20] MEDS: cloNIDine 0.1 MG (CATAPRES) TAB PO SCH ×2 (08:41→19:59)
[2021-05-20] MEDS ORDERED: ONDANSETRON 4 MG/2 ML (SDV) Z0FRAN IV PRN (09:45)
[2021-05-20] MEDS ORDERED: ANTACID SUSP 30 ML UDC (MYLANTA) PO PRN (09:45)
[2021-05-20] MEDS ORDERED: BISACODYL 10 MG SUPP (DULCOLAX) PR PRN (09:45)
[2021-05-20] MEDS ORDERED: ONDANSETRON 4 MG (ZOFRAN) ORAL DISSOLVE TAB PO PRN (09:45)
[2021-05-20] MEDS ORDERED: MILK OF MAGNESIA 400 MG/5 ML 30 ML UDC PO PRN (09:45)
[2021-05-20] MEDS: cefTRIAXone 2,000 MG in WATER (STERILE) FOR INJECTION 20 ML IV SCH (11:14)
[2021-05-20 12:00] VITALS: BP 142/67
--- NOTE | 2021-05-20 15:54 | Progress Note - Hospitalist ---
Subjective HPI/CC On Admission Date Seen by Provider: May 20, 2021 Time Seen by Provider: 09:10 Agata Pringle is a 75-year-old female with past medical history of hypertension, diabetes, obstructive sleep apnea, atrial fibrillation, aortic valve stenosis, history of DVT, history of splenectomy, who presented with weakness. This has been a chronic issue but has been worsening recently. She has also complained of dizziness. She denies any fevers or chills. She does have some right lower abdomen discomfort. She denies any nausea or vomiting. She denies any diarrhe a. She denies any shortness of breath or cough. She does not think that she can take care of herself at home anymore and requests to be placed in a alf. Subjective/Events-last exam She is haing some right leg pain which is chronic. She continues to feel weak. She wants to try to work with physical therapy. Objective Exam Vital Signs Vital Signs Date Time Temp Pulse Resp B/P (MAP) Pulse Ox O2 Delivery O2 Flow Rate FiO2 05/20/21 12:44 79 05/20/21 12:00 36.2 20 142/67 (92) 96 Nasal Cannula 2.00 Capillary Refill : Less Than 3 Seconds General Appearance: No Apparent Distress, Obese Respiratory: Lungs Clear, Normal Breath Sounds, No Respiratory Distress Cardiovascular: Regular Rate, Rhythm, No Murmur Gastrointestinal: Normal Bowel Sounds, Non Tender, Soft Extremity: Normal Inspection, Pedal Edema Neurologic/Psychiatric: Alert, Oriented x3, Normal Mood/Affect, Motor Weakness Skin: Normal Color, Warm/Dry Results/Procedures Lab Patient resulted labs reviewed. Imaging: Reviewed Imaging Report Assessment/Plan Assessment and Plan Assess & Plan/Chief Complaint UTI UA consistent with UTI Urine culture with multi-drug resistant Enterobacter cloacae Transition to Cefepime Acute kidney injury Improved, appears to be at baseline IV fluids T2DM Hold home insulin and metformin Continue Levemir Novolog with meals Sliding scale insulin Debility PT/OT Social work assisting with placement HTN MADELYN AFib Aortic stenosis History of DVT/PE Continue home meds Morbid obesity Clinically significant, no acute management needs DVT prophylaxis: Already receiving therapeutic anticoagulation Diagnosis/Problems Diagnosis/Problems (1) UTI (urinary tract infection) Status: Acute Qualifiers: Urinary tract infection type: site unspecified Hematuria presence: without hematuria Qualified Codes: N39.0 - Urinary tract infection, site not specified (2) VICKIE (acute kidney injury) Status: Acute (3) Generalized weakness Status: Acute (4) HTN (hypertension) Status: Chronic (5) Aortic stenosis Status: Chronic (6) Atrial fibrillation Status: Chronic (7) IDDM (insulin dependent diabetes mellitus) Status: Chronic (8) Morbid obesity Status: Chronic KELY WEBSTER MD May 20, 2021 15:54
[2021-05-20 16:00] VITALS: BP 129/60
[2021-05-20] MEDS: RIVAROXABAN 20 MG TABLET (XARELTO) PO SCH (16:36)
[2021-05-20] MEDS: CEFEPIME INJECTION 1,000 MG in WATER (STERILE) FOR INJECTION 10 ML IV SCH (17:00)
[2021-05-20 19:35] VITALS: BP 128/70
[2021-05-21] VITALS: BP 174/79
[2021-05-21] MEDS: CEFEPIME INJECTION 1,000 MG in WATER (STERILE) FOR INJECTION 10 ML IV SCH ×4 (00:02→16:20)
[2021-05-21 03:37] VITALS: BP 133/64
[2021-05-21] MEDS: inSUlin ASPART (NovoLOG) 1 UNIT/0.01 ML (CHARGE PER UNIT) SC SCH ×7 (05:37→21:15)
[2021-05-21] MEDS: TROSPIUM 20 MG (SANCTURA) TAB PO SCH ×2 (06:12→16:19)
[2021-05-21 07:46] VITALS: BP 136/61
[2021-05-21] MEDS: lisINopril 40 MG (PRINIVIL) TABLET PO SCH (08:27)
[2021-05-21] MEDS: GABAPENTIN 600 MG (NEURONTIN) TAB PO SCH ×3 (08:27→20:34)
[2021-05-21] MEDS: FAMOTIDINE 20 MG (PEPCID) TABLET PO SCH (08:27)
[2021-05-21] MEDS: cloNIDine 0.1 MG (CATAPRES) TAB PO SCH ×2 (08:27→20:34)
[2021-05-21] MEDS: OXcarbazepine (TRILEPTAL) 300 MG TAB PO SCH (08:27)
[2021-05-21] MEDS: busPIRone 15 MG (BUSPAR) TABLET PO SCH ×3 (08:27→20:34)
[2021-05-21] MEDS: FUROSEMIDE 40 MG (LASIX) TAB PO SCH (08:27)
[2021-05-21] MEDS: cefTRIAXone 2,000 MG in WATER (STERILE) FOR INJECTION 20 ML IV SCH (08:28)
[2021-05-21] MEDS: amLODIPine 5 MG (NORVASC) TAB PO SCH (08:28)
[2021-05-21 12:00] VITALS: BP 120/58
--- NOTE | 2021-05-21 12:53 | Progress Note - Hospitalist ---
Subjective HPI/CC On Admission Date Seen by Provider: May 21, 2021 Time Seen by Provider: 10:35 Agata Pringle is a 75-year-old female with past medical history of hypertension, diabetes, obstructive sleep apnea, atrial fibrillation, aortic valve stenosis, history of DVT, history of splenectomy, who presented with weakness. This has been a chronic issue but has been worsening recently. She has also complained of dizziness. She denies any fevers or chills. She does have some right lower abdomen discomfort. She denies any nausea or vomiting. She denies any diarrhe a. She denies any shortness of breath or cough. She does not think that she can take care of herself at home anymore and requests to be placed in a detention. Subjective/Events-last exam She is feeling about the same. She continues to feel weak. She had some chest discomfort but this is resolved. Objective Exam Vital Signs Vital Signs Date Time Temp Pulse Resp B/P (MAP) Pulse Ox O2 Delivery O2 Flow Rate FiO2 05/21/21 12:47 57 05/21/21 12:00 36.0 20 120/58 (78) 97 Nasal Cannula 2.00 Capillary Refill : Less Than 3 Seconds General Appearance: No Apparent Distress, Obese Respiratory: Lungs Clear, Normal Breath Sounds, No Respiratory Distress Cardiovascular: Regular Rate, Rhythm, No Murmur Gastrointestinal: Normal Bowel Sounds, Non Tender, Soft Extremity: Normal Inspection, Non Tender, Pedal Edema Neurologic/Psychiatric: Alert, Oriented x3, Normal Mood/Affect, Motor Weakness Skin: Normal Color, Warm/Dry Results/Procedures Lab Patient resulted labs reviewed. Imaging: Reviewed Imaging Report Assessment/Plan Assessment and Plan Assess & Plan/Chief Complaint UTI UA consistent with UTI Urine culture with multi-drug resistant Enterobacter cloacae Continue Cefepime T2DM Hold home insulin and metformin Continue Levemir Novolog with meals Sliding scale insulin Debility PT/OT Social work assisting with placement HTN MADELYN AFib Aortic stenosis History of DVT/PE Continue home meds Morbid obesity Clinically significant, no acute management needs DVT prophylaxis: Already receiving therapeutic anticoagulation Acute kidney injury, resolved Diagnosis/Problems Diagnosis/Problems (1) UTI (urinary tract infection) Status: Acute Qualifiers: Urinary tract infection type: site unspecified Hematuria presence: without hematuria Qualified Codes: N39.0 - Urinary tract infection, site not specified (2) VICKIE (acute kidney injury) Status: Acute (3) Generalized weakness Status: Acute (4) HTN (hypertension) Status: Chronic (5) Aortic stenosis Status: Chronic (6) Atrial fibrillation Status: Chronic (7) IDDM (insulin dependent diabetes mellitus) Status: Chronic (8) Morbid obesity Status: Chronic KELY WEBSTER MD May 21, 2021 12:53
[2021-05-21 16:00] VITALS: BP 124/58
[2021-05-21] MEDS: RIVAROXABAN 20 MG TABLET (XARELTO) PO SCH (16:19)
[2021-05-21 19:46] VITALS: BP 112/65
[2021-05-21] MEDS: MELATONIN 3 MG TABLET PO PRN (22:20)
[2021-05-22] VITALS (7 sets, daily range): BP systolic 113–154; BP diastolic 59–72
[2021-05-22] MEDS: CEFEPIME INJECTION 1,000 MG in WATER (STERILE) FOR INJECTION 10 ML IV SCH ×5 (00:51→23:31)
[2021-05-22 04:43] LABS: BASOPHILS % (AUTO) 0 % (0-10); EOSINOPHILS # (AUTO) 0.5 10^3/uL (0.0-0.3); EOSINOPHILS % (AUTO) 5 % (0-10); HEMATOCRIT 33 % (35-52); HEMOGLOBIN 10.4 g/dL (11.5-16.0); LYMPHOCYTES # (AUTO) 2.2 10^3/uL (1.0-4.0); LYMPHOCYTES % (AUTO) 22 % (12-44); MEAN CORPUSCULAR HEMOGLOBIN 32 pg (25-34); MEAN CORPUSCULAR HGB CONC 32 g/dL (32-36); MEAN CORPUSCULAR VOLUME 101 fL (80-99); MEAN PLATELET VOLUME 11.5 fL (9.0-12.2); MONOCYTES # (AUTO) 0.7 10^3/uL (0.0-1.0); MONOCYTES % (AUTO) 7 % (0-12); NEUTROPHILS # (AUTO) 6.7 10^3/uL (1.8-7.8); NEUTROPHILS % (AUTO) 66 % (42-75); PLATELET COUNT 236 10^3/uL (130-400); WHITE BLOOD COUNT 10.1 10^3/uL (4.3-11.0)
[2021-05-22 04:54] LABS: POTASSIUM 3.6 MMOL/L (3.6-5.0)
[2021-05-22 04:55] LABS: CALCIUM 8.6 MG/DL (8.5-10.1)
[2021-05-22 05:00] LABS: CREATININE SERUM 1.06 MG/DL (0.60-1.30)
[2021-05-22] MEDS: TROSPIUM 20 MG (SANCTURA) TAB PO SCH ×2 (05:32→15:46)
[2021-05-22] MEDS: inSUlin ASPART (NovoLOG) 1 UNIT/0.01 ML (CHARGE PER UNIT) SC SCH ×7 (05:56→20:03)
[2021-05-22] MEDS: lisINopril 40 MG (PRINIVIL) TABLET PO SCH (08:31)
[2021-05-22] MEDS: amLODIPine 5 MG (NORVASC) TAB PO SCH (08:32)
[2021-05-22] MEDS: busPIRone 15 MG (BUSPAR) TABLET PO SCH ×3 (08:32→20:02)
[2021-05-22] MEDS: OXcarbazepine (TRILEPTAL) 300 MG TAB PO SCH (08:32)
[2021-05-22] MEDS: FAMOTIDINE 20 MG (PEPCID) TABLET PO SCH (08:32)
[2021-05-22] MEDS: GABAPENTIN 600 MG (NEURONTIN) TAB PO SCH ×3 (08:32→20:02)
[2021-05-22] MEDS: cloNIDine 0.1 MG (CATAPRES) TAB PO SCH ×2 (08:32→20:02)
[2021-05-22] MEDS: FUROSEMIDE 40 MG (LASIX) TAB PO SCH (08:32)
--- NOTE | 2021-05-22 11:02 | Physical Therapy Evaluation ---
PT Evaluation-General Medical Diagnosis Admission Date May 18, 2021 at 19:15 Medical Diagnosis: UTI/dehydration/acute renal insufficency Onset Date: May 18, 2021 Therapy Diagnosis Therapy Diagnosis: debility Height/Weight Height (Feet): 5 Height (Inches): 9.00 Weight (Pounds): 250 Weight (Ounces): 0.0 Precautions Precautions/Isolations: Contact Isolation, Fall Prevention, Standard Precautions Referral Physician: Lisbet Reason for Referral: Evaluation/Treatment Referral Comments verbal order Medical History Pertinent Medical History: Atrial Fib, Arthritis, Breast CA S/P Mastectomy, COPD, DM, Fractures, HTN Current History inability to care for self Reviewed History: Yes Social History Home: Assisted Living Prior Prior Level of Function SCALE: Activities may be completed with or without assistive devices. 9-Xyivdfzcdb-drbdyru completes the activity by him/herself with no assistance from a helper. 5-Set-up or Clean-up Assistance-helper sets up or cleans up; patient completes activity. [place] assists only prior to or following the activity. 4-Supervision or Touching Assistance-helper provides verbal cues and/or touching/steadying and/or contact guard assistance as patient completes activity. Assistance may be provided throughout the activity or intermittently. 3-Partial/Moderate Assistance-helper does LESS THAN HALF the effort. [place] lifts, holds or supports trunk or limbs, but provides less than half the effort. 2-Substantial/Maximal Assistance-helper does MORE THAN HALF the effort. [place] lifts or holds trunk or limbs and provides more than half the effort. 4-Ckzvyfpcu-bxxnto does ALL the effort. Patient does none of the effort to complete the activity. Or, the assistance of 2 or more helpers is required for the patient to complete the activity. If activity was not attempted, code reason: 7-Patient Refused. 9-Not Applicable-not attempted and the patient did not perform the activity before the current illness, exacerbation or injury. 10-Not Attempted due to Environmental Limitations-(lack of equipment, weather restraints, etc.). 88-Not Attempted due to Medical Conditions or Safety Concerns. Bed Mobility: 3 Transfers (B,C,W/C): 3 Gait: 2 Stairs: 9 Wheelchair Mobility: 2 Indoor Mobility (Ambulation): Needed Some Help Stairs: Not Applicalbe Prior Devices Use: Manual wheelchair, Walker PT Evaluation-Current Subjective Patient agrees to participate with PT. Objective Patient Orientation: Normal For Age Attachments: Oxygen ROM/Strength ROM Lower Extremities bilateral LE WFL Strength Lower Extremities 3/5 grossly bilateral LE Integumentary/Posture Bowel Incontinence: Yes Bladder Incontinence: Yes Neuromuscular (Tone, Coordination, Reflexes) noted bilateral LE tremors Sensory Vision: Functional Hearing: Functional Hand Dominance: Right Transfers Roll Left to Right (QC): 1 Sit to Lying (QC): 1 Lying to Sitting/Side of Bed(Q: 1 (x 2) Sit to Stand (QC): 2 (x 2) Chair/Iew-gi-Pbdru Xfer(QC): 2 (x 2) patient able to stand with FWW EOB, however, unable to take a step safely and is very "shaky" requiring PT and OT to quickly have patient sit in recliner Gait Does the Patient Walk?: No and Walking Goal IS indicated Mode of Locomotion: Both Anticipated Mode of Locomotion: Both Balance Sitting Static: Fair Sitting Dynamic: Fair Standing Static: Poor Standing Dynamic: Poor Treatment Patient is up in recliner with [place] sling under patient for nursing staff to assist with returning to bed. Assessment/Needs 75 y.o. female, will be seen short term by skilled PT to address functional st rength and mobility. Patient requires time and encouragement to participate and comply with treatment plan. Rehab Potential: Guarded PT Jail Goals Hydroelectric Production Manager Goals PT Hydroelectric Production Manager Goals Time Frame: Jun 03, 2021 Roll Left & Right (QC): 3 Sit to Lying (QC): 3 Lying-Sitting on Side/Bed(QC): 3 Sit to Stand (QC): 3 Chair/Axn-oz-Tenay Xfer(QC): 3 Walk 10 feet (QC): 2 PT Plan Problem List Problem List: Activity Tolerance, Functional Strength, Safety, Balance, Gait, Transfer, Bed Mobility Treatment/Plan Treatment Plan: Continue Plan of Care Treatment Plan: Bed Mobility, Education, Functional Activity [place], Functional Strength, Gait, Safety, Therapeutic Exercise, Transfers Treatment Duration: Jun 03, 2021 Frequency: 6 times per week Estimated Hrs Per Day: .25 hour per day Patient and/or Family Agrees t: Yes Time/GCodes Time In: 1030 Time Out: 1045 Total Billed Treatment Time: 15 Total Billed Treatment 1 visit EVMod 15 min NATASHA TINEO PT May 22, 2021 11:01
--- NOTE | 2021-05-22 11:31 | Occupational Ther Daily Note ---
OT Current Status-Daily Note Subjective Pt alert, lying in bed. PT already in room, WEN working with PT for safety and pt's significant decrease in mobility. Pt c/o dizziness during treatment that requires recovery break. No c/o pain. Mental Status/Objective Patient Orientation: Person, Place, Time, Situation Attachments: IV ADL-Treatment Therapy Code Descriptions/Definitions Functional [place] Measure: 0=Not Assessed/NA 4=Minimal Assistance 1=Total Assistance 5=Supervision or Setup 2=Maximal Assistance 6=Modified [place] 3=Moderate Assistance 7=Complete IndependenceSCALE: Activities may be completed with or without assistive devices. 3-Bfjxlfsoii-mrlzvva completes the activity by him/herself with no assistance from a helper. 5-Set-up or Clean-up Assistance-helper sets up or cleans up; patient completes activity. [place] assists only prior to or following the activity. 4-Supervision or Touching Assistance-helper provides verbal cues and/or touching/steadying and/or contact guard assistance as patient completes activity. Assistance may be provided throughout the activity or intermittently. 3-Partial/Moderate Assistance-helper does LESS THAN HALF the effort. [place] lifts, holds or supports trunk or limbs, but provides less than half the effort. 2-Substantial/Maximal Assistance-helper does MORE THAN HALF the effort. [place] lifts or holds trunk or limbs and provides more than half the effort. 4-Rwitdvrrc-reqckk does ALL the effort. Patient does none of the effort to complete the activity. Or, the assistance of 2 or more helpers is required for the patient to complete the activity. If activity was not attempted, code reason: 7-Patient Refused. 9-Not Applicable-not attempted and the patient did not perform the activity before the current illness, exacerbation or injury. 10-Not Attempted due to Environmental Limitations-(lack of equipment, weather restraints, etc.). 88-Not Attempted due to Medical Conditions or Safety Concerns. Other Treatment Pt requires mod A x2 for supine to EOB. Max A to don/doff socks. Patient able to stand with FWW EOB, however, unable to take a step safely and is very "shaky" requiring PT and OT to quickly have patient sit in recliner. After session, pt sitting in recliner with call light/phone in reach. Therapy advises pt's to have pt sit for 1 hr or more to benefit pt. All needs met in room. OT Ship Pilot Dispatcher Goals Ship Pilot Dispatcher Goals Time Frame: May 26, 2021 Eating (QC): 6 Oral Hygiene (QC): 6 Toileting Hygiene (QC): 2 Shower/Bathe Self (QC): 2 Upper Body Dressing (QC): 5 Lower Body Dressing (QC): 2 On/Off Footwear (QC): 1 per / pt, above scores are PLOF. Additional Goals: 1-Demonstrate ADL Tasks, 2-Verbalize Understanding, 3-ImproveStrength/Brodie 1=Demonstrate adherence to instructed precautions during ADL tasks. 2=Patient will verbalize/demonstrate understanding of assistive devices/modifications for ADL. 3=Patient will improve strength/tolerance for activity to enable patient to perform ADL's. OT Education/Plan Problem List/Assessment Assessment: Decreased Activ Tolerance, Decreased Safety Aware, Decreased UE Strength, Dependent Transfers, Impaired Bed Mobility, Impaired Funct Balance, Impaired Self-Care Skills Discharge Recommendations Plan/Recommendations: Continue POC Treatment Plan/Plan of Care Patient would benefit from OT for education, treatment and training to promote independence in ADL's, mobility, safety and/or upper extremity function for ADL's. Plan of Care: ADL Retraining, Caregiver Training, Functional Mobility, UE Funct Exercise/Act, W/C Management Training Treatment Duration: May 26, 2021 Frequency: 5 times per week Estimated Hrs Per Day: .25 hour per day Agreement: Yes Rehab Potential: Guarded Time/GCodes Start Time: 10:30 Stop Time: 10:45 Total Time Billed (hr/min): 15 Billed Treatment Time 1 visit-FA 1 (15 min) GLORY VILLAR May 22, 2021 11:31
--- NOTE | 2021-05-22 12:56 | Progress Note - Hospitalist ---
Subjective HPI/CC On Admission Date Seen by Provider: May 22, 2021 Time Seen by Provider: 12:50 Agata Pringle is a 75-year-old female with past medical history of hypertension, diabetes, obstructive sleep apnea, atrial fibrillation, aortic valve stenosis, history of DVT, history of splenectomy, who presented with weakness. This has been a chronic issue but has been worsening recently. She has also complained of dizziness. She denies any fevers or chills. She does have some right lower abdomen discomfort. She denies any nausea or vomiting. She denies any diarrhea. She denies any shortness of breath or cough. She does not think that she can take care of herself at home anymore and requests to be placed in a half-way. Subjective/Events-last exam Pt reports doing well today. No complaints. Ready to work with physical therapy and states she is very motivated. Objective Exam Vital Signs Vital Signs Date Time Temp Pulse Resp B/P (MAP) Pulse Ox O2 Delivery O2 Flow Rate FiO2 05/22/21 11:42 36.6 61 20 154/67 (96) 94 Nasal Cannula 2.00 Capillary Refill : Less Than 3 Seconds General Appearance: No Apparent Distress, WD/WN Cardiovascular: Regular Rate, Rhythm, No Murmur Gastrointestinal: Normal Bowel Sounds, Soft Neurologic/Psychiatric: Alert, Oriented x3 Results/Procedures Lab Laboratory Tests 05/22/21 04:25 Patient resulted labs reviewed. Imaging: Reviewed Imaging Report Assessment/Plan Assessment and Plan Assess & Plan/Chief Complaint UTI UA consistent with UTI Urine culture with multi-drug resistant Enterobacter cloacae Continue Cefepime Pt requests urology consulted, placed discussed with Dr Sethi T2DM Continue Levemir Novolog with meals Sliding scale insulin BS well controlled Debility PT/OT Social work assisting with placement Accepted at [facility] for Saturday when next female room available HTN MADELYN AFib Aortic stenosis History of DVT/PE Continue home meds Morbid obesity Clinically significant, no acute management needs DVT prophylaxis: Already receiving therapeutic anticoagulation ILENE GORMAN MD May 22, 2021 12:56
[2021-05-22] MEDS: RIVAROXABAN 20 MG TABLET (XARELTO) PO SCH (17:25)
[2021-05-22] MEDS: MELATONIN 3 MG TABLET PO PRN (22:15)
[2021-05-23 03:25] VITALS: BP 128/65
[2021-05-23] MEDS: inSUlin ASPART (NovoLOG) 1 UNIT/0.01 ML (CHARGE PER UNIT) SC SCH ×7 (05:42→20:54)
[2021-05-23] MEDS: CEFEPIME INJECTION 1,000 MG in WATER (STERILE) FOR INJECTION 10 ML IV SCH ×4 (06:22→23:44)
[2021-05-23] MEDS: TROSPIUM 20 MG (SANCTURA) TAB PO SCH ×2 (06:22→17:39)
[2021-05-23 08:30] VITALS: BP 137/75
[2021-05-23] MEDS: cloNIDine 0.1 MG (CATAPRES) TAB PO SCH ×2 (08:52→20:53)
[2021-05-23] MEDS: GABAPENTIN 600 MG (NEURONTIN) TAB PO SCH ×3 (08:52→20:53)
[2021-05-23] MEDS: OXcarbazepine (TRILEPTAL) 300 MG TAB PO SCH (08:52)
[2021-05-23] MEDS: busPIRone 15 MG (BUSPAR) TABLET PO SCH ×3 (08:52→20:53)
[2021-05-23] MEDS: amLODIPine 5 MG (NORVASC) TAB PO SCH (08:52)
[2021-05-23] MEDS: lisINopril 40 MG (PRINIVIL) TABLET PO SCH (08:53)
[2021-05-23] MEDS: FUROSEMIDE 40 MG (LASIX) TAB PO SCH (08:53)
[2021-05-23] MEDS: FAMOTIDINE 20 MG (PEPCID) TABLET PO SCH (08:53)
--- NOTE | 2021-05-23 09:16 | Physical Therapy Daily Note ---
PT Daily Note-Current Subjective Patient agrees to PT. Mental Status Patient Orientation: Person, Time, Situation Attachments: Oxygen Transfers SCALE: Activities may be completed with or without assistive devices. 7-Vmbjdxfjky-csmjsnj completes the activity by him/herself with no assistance from a helper. 5-Set-up or Clean-up Assistance-helper sets up or cleans up; patient completes activity. [place] assists only prior to or following the activity. 4-Supervision or Touching Assistance-helper provides verbal cues and/or touching/steadying and/or contact guard assistance as patient completes activity. Assistance may be provided throughout the activity or intermittently. 3-Partial/Moderate Assistance-helper does LESS THAN HALF the effort. [place] lifts, holds or supports trunk or limbs, but provides less than half the effort. 2-Substantial/Maximal Assistance-helper does MORE THAN HALF the effort. [place] lifts or holds trunk or limbs and provides more than half the effort. 1-Zeadudgks-nnvxcl does ALL the effort. Patient does none of the effort to complete the activity. Or, the assistance of 2 or more helpers is required for the patient to complete the activity. If activity was not attempted, code reason: 7-Patient Refused. 9-Not Applicable-not attempted and the patient did not perform the activity before the current illness, exacerbation or injury. 10-Not Attempted due to Environmental Limitations-(lack of equipment, weather restraints, etc.). 88-Not Attempted due to Medical Conditions or Safety Concerns. Lying to Sitting/Side of Bed(Q: 2 Sit to Stand (QC): 2 Chair/Guo-gk-Uiykn Xfer(QC): 2 Patient is very shaky and unsteady with sit to stand and transfer to recliner. Patient able to utilize FWW for mobility. Exercises Seated Therapy Exercises: Ankle pumps, Long arc quads Seated Reps: 12 Assessment Patient up in recliner with needs met. Patient able to perform sit to stand to FWW and pivot to recliner PT Band Saw Marker Goals Band Saw Marker Goals PT Band Saw Marker Goals Time Frame: Jun 03, 2021 Roll Left & Right (QC): 3 Sit to Lying (QC): 3 Lying-Sitting on Side/Bed(QC): 3 Sit to Stand (QC): 3 Chair/Ckw-rk-Jmilf Xfer(QC): 3 Walk 10 feet (QC): 2 PT Plan Treatment/Plan Treatment Plan: Continue Plan of Care Treatment Plan: Bed Mobility, Education, Functional Activity [place], Functional Strength, Gait, Safety, Therapeutic Exercise, Transfers Treatment Duration: Jun 03, 2021 Frequency: 6 times per week Estimated Hrs Per Day: .25 hour per day Patient and/or Family Agrees t: Yes Time/GCodes Time In: 830 Time Out: 844 Total Billed Treatment Time: 14 Total Billed Treatment 1 visit FA 14 min NATASHA TINEO PT May 23, 2021 09:16
--- NOTE | 2021-05-23 09:31 | Occupational Ther Daily Note ---
OT Current Status-Daily Note Subjective Pt alert, sitting in recliner. Pt agrees to therapy. Pt c/o dizziness and nausea. Pt's was wondering if pt had told physician about her medication for dizziness, pt stated no. Instructed pt and to inquire this toward the physician. Mental Status/Objective Patient Orientation: Person, Place, Time, Situation Attachments: Baker Catheter (purwick), IV, Oxygen ADL-Treatment Pt eating breakfast with regular utensils. Therapy Code Descriptions/Definitions Functional [place] Measure: 0=Not Assessed/NA 4=Minimal Assistance 1=Total Assistance 5=Supervision or Setup 2=Maximal Assistance 6=Modified [place] 3=Moderate Assistance 7=Complete IndependenceSCALE: Activities may be completed with or without assistive devices. 6-Xrdlasvqin-arnwlyx completes the activity by him/herself with no assistance from a helper. 5-Set-up or Clean-up Assistance-helper sets up or cleans up; patient completes activity. [place] assists only prior to or following the activity. 4-Supervision or Touching Assistance-helper provides verbal cues and/or touching/steadying and/or contact guard assistance as patient completes activity. Assistance may be provided throughout the activity or intermittently. 3-Partial/Moderate Assistance-helper does LESS THAN HALF the effort. [place] lifts, holds or supports trunk or limbs, but provides less than half the effort. 2-Substantial/Maximal Assistance-helper does MORE THAN HALF the effort. [place] lifts or holds trunk or limbs and provides more than half the effort. 6-Tywnyouiq-zcabyk does ALL the effort. Patient does none of the effort to complete the activity. Or, the assistance of 2 or more helpers is required for the patient to complete the activity. If activity was not attempted, code reason: 7-Patient Refused. 9-Not Applicable-not attempted and the patient did not perform the activity before the current illness, exacerbation or injury. 10-Not Attempted due to Environmental Limitations-(lack of equipment, weather restraints, etc.). 88-Not Attempted due to Medical Conditions or Safety Concerns. Eating (QC): 6 Other Treatment Skilled instruction for B UE light resistance theraband exercises. Pt able to recall 1 exercises then WEN instructed pt on 4 more exercises and correct monique hnique. Pt fatigues quickly and only able to complete 1 set 10 reps of each exercise. Takes increased time and recovery breaks required. After session, pt sitting in recliner with call light/phone in reach. All needs met. OT Stunt Double Goals Stunt Double Goals Time Frame: May 26, 2021 Eating (QC): 6 Oral Hygiene (QC): 6 Toileting Hygiene (QC): 2 Shower/Bathe Self (QC): 2 Upper Body Dressing (QC): 5 Lower Body Dressing (QC): 2 On/Off Footwear (QC): 1 per / pt, above scores are PLOF. Additional Goals: 1-Demonstrate ADL Tasks, 2-Verbalize Understanding, 3- ImproveStrength/Brodie 1=Demonstrate adherence to instructed precautions during ADL tasks. 2=Patient will verbalize/demonstrate understanding of assistive devices/modifications for ADL. 3=Patient will improve strength/tolerance for activity to enable patient to perform ADL's. OT Education/Plan Problem List/Assessment Assessment: Decreased Activ Tolerance, Decreased UE Strength Discharge Recommendations Plan/Recommendations: Continue POC Treatment Plan/Plan of Care Patient would benefit from OT for education, treatment and training to promote independence in ADL's, mobility, safety and/or upper extremity function for ADL's. Plan of Care: ADL Retraining, Caregiver Training, Functional Mobility, UE Funct Exercise/Act, W/C Management Training Treatment Duration: May 26, 2021 Frequency: 5 times per week Estimated Hrs Per Day: .25 hour per day Agreement: Yes Rehab Potential: Guarded Time/GCodes Start Time: 09:15 Stop Time: 09:30 Total Time Billed (hr/min): 15 Billed Treatment Time 1 visit-EX 1 (15 min) GLORY VILLAR May 23, 2021 09:30
[2021-05-23 11:28] VITALS: BP 128/63
[2021-05-23] MEDS: ACETAMINOPHEN 325 MG TABLET PO PRN ×2 (11:33→17:39)
--- NOTE | 2021-05-23 11:59 | Progress Note - Hospitalist ---
Subjective HPI/CC On Admission Date Seen by Provider: May 23, 2021 Time Seen by Provider: 11:55 Agata Pringle is a 75-year-old female with past medical history of hypertension, diabetes, obstructive sleep apnea, atrial fibrillation, aortic valve stenosis, history of DVT, history of splenectomy, who presented with weakness. This has been a chronic issue but has been worsening recently. She has also complained of dizziness. She denies any fevers or chills. She does have some right lower abdomen discomfort. She denies any nausea or vomiting. She denies any diarrhe a. She denies any shortness of breath or cough. She does not think that she can take care of herself at home anymore and requests to be placed in a halfway. Subjective/Events-last exam Pt reports feeling ok today. No complaints. Still some dizziness but much improved. Objective Exam Vital Signs Vital Signs Date Time Temp Pulse Resp B/P (MAP) Pulse Ox O2 Delivery O2 Flow Rate FiO2 05/23/21 11:28 37.0 69 20 128/63 (84) 96 Nasal Cannula 2.00 Capillary Refill : Less Than 3 Seconds General Appearance: No Apparent Distress, Chronically ill, Obese Respiratory: Lungs Clear, No Respiratory Distress Cardiovascular: Regular Rate, Rhythm, No Murmur Neurologic/Psychiatric: Alert, Oriented x3 Results/Procedures Lab Patient resulted labs reviewed. Imaging: Reviewed Imaging Report Assessment/Plan Assessment and Plan Assess & Plan/Chief Complaint UTI UA consistent with UTI Urine culture with multi-drug resistant Enterobacter cloacae Continue Cefepime per sensitivities Urology consulted, agrees with management T2DM Continue Levemir Novolog with meals Sliding scale insulin BS well controlled Debility PT/OT Social work assisting with placement Accepted at [facility] for Saturday when next female room available and if insurance approves HTN MADELYN AFib Aortic stenosis History of DVT/PE Continue home meds Morbid obesity Clinically significant, no acute management needs DVT prophylaxis: Already receiving therapeutic anticoagulation ILENE GORMAN MD May 23, 2021 11:59
--- NOTE | 2021-05-23 12:21 | CONSULTATION REPORT ---
DATE OF SERVICE: 05/23/2021 ATTENDING PHYSICIAN: Dr. Frausto. SUMMARY: A 75-year-old white lady known to me for many years because of history of urinary tract infection. She was put on Keflex 250 daily, Premarin vaginal cream half a gram twice a week, vitamin C 500 mg daily, cranberry twice a day and increase fluids. She was just recently seen in my office 05/12/2021. She was doing very well on that regimen. However, she has been admitted with urinary tract infection and treated appropriately by Dr. Frausto. IMPRESSION: Urinary tract infections with history of urinary tract infections. RECOMMENDATIONS: Continue present management and previous management for prevention of stone as outlined above. She is to contact my office, will come see me in followup if she has any problem. Otherwise, keep her previous followup appointment given on 05/12/2021. Job ID: [id number] DocumentID: [id number] Dictated Date: 05/23/2021 09:12:14 Wire Welder Date: 05/23/2021 12:21:32 Dictated By: ERVIN OSBORNE MD
[2021-05-23 16:00] VITALS: BP 161/80
[2021-05-23] MEDS: RIVAROXABAN 20 MG TABLET (XARELTO) PO SCH (17:30)
[2021-05-23 19:53] VITALS: BP 126/71
[2021-05-23] MEDS: polyethylene glycoL POWDER 17 GM (MIRALAX) PACK PO PRN (20:53)
[2021-05-23] MEDS: MELATONIN 3 MG TABLET PO PRN (20:53)
[2021-05-24 00:02] VITALS: BP 126/65
[2021-05-24 04:31] VITALS: BP 117/71
[2021-05-24] MEDS: inSUlin ASPART (NovoLOG) 1 UNIT/0.01 ML (CHARGE PER UNIT) SC SCH ×4 (05:50→12:31)
[2021-05-24] MEDS: CEFEPIME INJECTION 1,000 MG in WATER (STERILE) FOR INJECTION 10 ML IV SCH ×2 (05:56→12:31)
[2021-05-24] MEDS: TROSPIUM 20 MG (SANCTURA) TAB PO SCH (05:56)
[2021-05-24 08:46] VITALS: BP 122/60
[2021-05-24] MEDS: FUROSEMIDE 40 MG (LASIX) TAB PO SCH (09:08)
[2021-05-24] MEDS: busPIRone 15 MG (BUSPAR) TABLET PO SCH ×2 (09:08→12:32)
[2021-05-24] MEDS: cloNIDine 0.1 MG (CATAPRES) TAB PO SCH (09:08)
[2021-05-24] MEDS: lisINopril 40 MG (PRINIVIL) TABLET PO SCH (09:08)
[2021-05-24] MEDS: polyethylene glycoL POWDER 17 GM (MIRALAX) PACK PO PRN (09:08)
[2021-05-24] MEDS: GABAPENTIN 600 MG (NEURONTIN) TAB PO SCH ×2 (09:08→12:32)
[2021-05-24] MEDS: OXcarbazepine (TRILEPTAL) 300 MG TAB PO SCH (09:08)
[2021-05-24] MEDS: amLODIPine 5 MG (NORVASC) TAB PO SCH (09:08)
[2021-05-24] MEDS: FAMOTIDINE 20 MG (PEPCID) TABLET PO SCH (09:08)
[2021-05-24] MEDS ORDERED: LEVO750T39 PO (09:21)
--- NOTE | 2021-05-24 09:22 | Discharge Inst-Skilled Nursing ---
Discharge Inst-Skilled NF Chief Complaint Agata Pringle is a 75-year-old female with past medical history of hypertension, diabetes, obstructive sleep apnea, atrial fibrillation, aortic valve stenosis, history of DVT, history of splenectomy, who presented with weakness. This has been a chronic issue but has been worsening recently. She has also complained of dizziness. She denies any fevers or chills. She does have some right lower abdomen discomfort. She denies any nausea or vomiting. She denies any diarrhea. She denies any shortness of breath or cough. She does not think that she can take care of herself at home anymore and requests to be placed in a [facility]. Consult/Follow Up/Orders Skilled NF Admit to: [facility] Certification ([facility]) I certify that SNF services are required to be given on an inpatient basis because of the above named patient's need for care home care on a continuing basis for the conditions(s) for which he/she was receiving inpatient hospital services prior to his/her transfer to the SNF. Nursing Home Facility Order: Nursing Services, Mergers And Acquisitions Manager-Evaluate & Treat, Physical Therapy-Evaluate & Treat Oxygen Delivery Method: Nasal Cannula Oxygen Flow Rate L/min (Range): 2 Discharge Diet: ADA Diet Daily Activity as Tolerated: Yes Resuscitation Status: Do Not Resuscitate New & Resume Previous Orders Ilene Frausto May 24, 2021 09:21 ILENE FRAUSTO MD May 24, 2021 09:22
[2021-05-24] MEDS ORDERED: HYDR-34 PO (10:25)
--- NOTE | 2021-05-24 10:59 | Discharge Summary ---
Diagnosis/Chief Complaint Date of Admission May 18, 2021 at 19:15 Date of Discharge Discharge Date: May 24, 2021 Admission Diagnosis Urinary tract infection Primary Care Lb Christine DO Discharge Diagnosis (1) UTI (urinary tract infection) Status: Acute (2) VICKIE (acute kidney injury) Status: Acute (3) Generalized weakness Status: Acute (4) HTN (hypertension) Status: Chronic (5) Aortic stenosis Status: Chronic (6) Atrial fibrillation Status: Chronic (7) IDDM (insulin dependent diabetes mellitus) Status: Chronic (8) Morbid obesity Status: Chronic Discharge Summary Discharge Physical Exam Allergies: Coded Allergies: Penicillins (Verified Allergy, Mild, 02/19/19) codeine (Verified Allergy, Mild, PT TAKES HYDROCODONE AT HOME, 02/19/19) nitrofurantoin (Verified Allergy, Mild, RASH, 02/19/19) ITCHING/RASH pregabalin (Verified Allergy, Unknown, 02/19/19) sulfur dioxide (Verified Allergy, Unknown, 02/19/19) Vitals & I&Os Vital Signs Date Time Temp Pulse Resp B/P (MAP) Pulse Ox O2 Delivery O2 Flow Rate FiO2 05/24/21 14:00 36.3 64 20 139/88 99 Nasal Cannula 2.00 General Appearance: No Apparent Distress, Chronically ill, Obese Respiratory: Lungs Clear, No Respiratory Distress Cardiovascular: Regular Rate, Rhythm, No Murmur Neurologic/Psychiatric: Alert, Oriented x3 Hospital Course Pt was admitted due to recurrent urinary tract infection. She was treated with IV abx until sensitivities were back and then transitioned to Levaquin for discharge. She was discharged to [facility] for skilled therapy to work on strengthening in hopes of returning home. Labs (last 24 hrs) Microbiology 05/18/21 Urine Culture - Final, Complete Enterobacter cloacae complex Patient resulted labs reviewed. Pending Labs Imaging: Reviewed Imaging Report Discussion & Recommendations Discharge Planning: >30 minutes discharge planning Discharge Home Medications: Active Scripts Active HYDROcodone/APAP 7.5/325 TAB (Acetaminophen/Hydrocodone Bitart) 1 Each Tablet 1 Tab PO Q6H PRN MDD 2 TABS Levofloxacin 750 Mg Tablet 750 Mg PO DAILY Reported Humalog Kwikpen (Insulin Lispro) 100 Unit/1 Ml Insuln.pen Unit SQ AC USE SLIDING SCALE Meclizine HCl 25 Mg Tablet 25 Mg PO Q8H PRN Fluconazole 150 Mg Tablet 150 Mg PO Q72H Estradiol 10 Mcg Tablet 10 Mcg VG SAT,SAT Metolazone 2.5 Mg Tablet 2.5 Mg PO MO,WE,FR Magnesium Oxide 400 Mg Tablet 400 Mg PO 1200 Myrbetriq (Mirabegron) 50 Mg Tab.er.24h 50 Mg PO DAILY Vitamin D3 (Cholecalciferol (Vitamin D3)) 125 Mcg Capsule 125 Mcg PO DAILY K-Tab ER (Potassium Chloride) 10 Meq Tablet.er 10 Meq PO DAILY Carvedilol 12.5 Mg Tablet 12.5 Mg PO BID Albuterol Sulfate 2.5 Mg/3 Ml Vial.neb 2.5 Mg NEB Q6H PRN Proair Hfa (Albuterol Sulfate) 1 Puff Puff 2 Puff IH Q6H PRN Tresiba Flextouch U-100 (Insulin Degludec) 100 Unit/1 Ml Insuln.pen 48 Unit SQ DAILY Famotidine 20 Mg Tablet 20 Mg PO DAILY Gabapentin 600 Mg Tablet 600 Mg PO TID Ocuvite Adult 50 Plus Softgel (C,E,Zinc,Copper 24/Om3/Lut/Rita) 1 Each Capsule 1 Cap PO DAILY Clonidine HCl 0.1 Mg Tablet 0.1 Mg PO 1200 PRN Clonidine HCl 0.1 Mg Tablet 0.1 Mg PO BID Amlodipine Besylate 5 Mg Tablet 5 Mg PO DAILY Xarelto Tablet (Rivaroxaban) 20 Mg Tablet 20 Mg PO HS Trospium Chloride 20 Mg Tablet 20 Mg PO BIDAC TAKE ON AN EMPTY STOMACH Lisinopril 40 Mg Tablet 40 Mg PO DAILY Metformin HCl 500 Mg Tablet 500 Mg PO BID Oxcarbazepine 300 Mg Tablet 300 Mg PO DAILY Furosemide 40 Mg Tablet 80 Mg PO DAILY TAKES 2 (40MG) TABLETS Buspirone HCl 15 Mg Tablet 15 Mg PO TID Instructions to patient/family Please see electronic discharge instructions given to patient. Copy Copies To 1: LB CHRISTINE DO Problem Qualifiers (1) UTI (urinary tract infection): Urinary tract infection type: site unspecified Hematuria presence: without hematuria Qualified Codes: N39.0 - Urinary tract infection, site not specified ILENE GORMAN MD May 24, 2021 10:59
[2021-05-24 12:34] VITALS: BP 139/88
[2021-05-24 14:00] VITALS: BP 139/88
== END 2021-05-24 14:00 | DRG 690 ==
LOC: EDUNIT# 17:01 → ER 17:02 → 4TH 19:15
PROVIDERS: ADMIT Internal Medicine; ATTEND Internal Medicine
DX: N39.0 Urinary tract infection, site not specified (principal); N17.9 Acute kidney failure, unspecified; I48.20 Chronic atrial fibrillation, unspecified; Z68.41 Body mass index [BMI] 40.0-44.9, adult; Z16.39 Resistance to other specified antimicrobial drug; E11.9 Type 2 diabetes mellitus without complications; R53.81 Other malaise; G47.33 Obstructive sleep apnea (adult) (pediatric); I35.0 Nonrheumatic aortic (valve) stenosis; E66.01 Morbid (severe) obesity due to excess calories; J44.9 Chronic obstructive pulmonary disease, unspecified; I25.10 Atherosclerotic heart disease of native coronary artery without angina pectoris; F03.90 Unspecified dementia, unspecified severity, without behavioral disturbance, psychotic disturbance, mood disturbance, and anxiety; E78.00 Pure hypercholesterolemia, unspecified; Z66 Do not resuscitate; K21.9 Gastro-esophageal reflux disease without esophagitis; M19.90 Unspecified osteoarthritis, unspecified site; M79.7 Fibromyalgia; I11.0 Hypertensive heart disease with heart failure; G89.29 Other chronic pain; Z20.822 Contact with and (suspected) exposure to COVID-19; M54.9 Dorsalgia, unspecified; F41.9 Anxiety disorder, unspecified; F32.9 Major depressive disorder, single episode, unspecified; I50.9 Heart failure, unspecified; E86.0 Dehydration; Z86.718 Personal history of other venous thrombosis and embolism; Z86.711 Personal history of pulmonary embolism; I25.2 Old myocardial infarction; Z88.0 Allergy status to penicillin; Z79.899 Other long term (current) drug therapy; Z79.4 Long term (current) use of insulin; Z85.3 Personal history of malignant neoplasm of breast; Z92.21 Personal history of antineoplastic chemotherapy
CPT/HCPCS: 36415; 71045; 80048; 80053; 81000; 82947; 85025; 86141; 87077; 87088; 87186; 87636; 93005; 94760; 96365

== ENCOUNTER 2021-06-01 08:53 | Emergency (ER) | payer MEDICARE, MEDICAID ==
[~2021-06-01] VITALS: Ht 175 cm; Wt 130.0 kg
[~2021-06-01 08:53] MED LIST changes: +INSU100I23 SQ; +LEVO750T39 PO; +MECL-149 PO
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
[2021-06-01] MEDS ORDERED: HYDROcodone/APAP 5 MG/325 MG (LORTAB) TAB PO ONE ×2 (09:15→14:00)
[2021-06-01 12:16] LABS: ALBUMIN 3.6 GM/DL (3.2-4.5); CHLORIDE 98 MMOL/L (98-107); POTASSIUM 5.3 MMOL/L (3.6-5.0); SODIUM 140 MMOL/L (135-145)
[2021-06-01 12:18] LABS: CALCIUM 9.9 MG/DL (8.5-10.1)
[2021-06-01 12:19] LABS: GLUCOSE 82 MG/DL (70-105); TOTAL PROTEIN 7.6 GM/DL (6.4-8.2)
[2021-06-01 12:20] LABS: CARBON DIOXIDE 30 MMOL/L (21-32)
[2021-06-01 12:21] LABS: BILIRUBIN,TOTAL 0.4 MG/DL (0.1-1.0)
[2021-06-01 12:22] LABS: ALKALINE PHOSPHATASE 41 U/L (40-136); CREATININE SERUM 1.28 MG/DL (0.60-1.30); GFR ESTIMATED 41
[2021-06-01 12:24] LABS: BASOPHILS # (AUTO) 0.1 10^3/uL (0.0-0.1); BASOPHILS % (AUTO) 1 % (0-10); EOSINOPHILS # (AUTO) 0.1 10^3/uL (0.0-0.3); EOSINOPHILS % (AUTO) 1 % (0-10); HEMATOCRIT 36 % (35-52); LYMPHOCYTES # (AUTO) 1.4 10^3/uL (1.0-4.0); LYMPHOCYTES % (AUTO) 16 % (12-44); MEAN CORPUSCULAR HEMOGLOBIN 31 pg (25-34); MEAN CORPUSCULAR HGB CONC 31 g/dL (32-36); MEAN CORPUSCULAR VOLUME 100 fL (80-99); MEAN PLATELET VOLUME 11.6 fL (9.0-12.2); MONOCYTES # (AUTO) 0.5 10^3/uL (0.0-1.0); MONOCYTES % (AUTO) 6 % (0-12); NEUTROPHILS # (AUTO) 6.7 10^3/uL (1.8-7.8); NEUTROPHILS % (AUTO) 76 % (42-75); PLATELET COUNT 241 10^3/uL (130-400); WHITE BLOOD COUNT 8.8 10^3/uL (4.3-11.0)
[2021-06-01 12:24] LABS: BUN/CREATININE RATIO 34
[2021-06-01 12:25] LABS: SALICYLATE < 5.0 MG/DL (5.0-20.0)
[2021-06-01 12:26] LABS: ALANINE AMINOTRANSFERASE 12 U/L (0-55)
[2021-06-01 12:51] LABS: ACETAMINOPHEN < 10 UG/ML (10-30)
[2021-06-01 13:19] LABS: BILIRUBIN,URINE NEGATIVE (NEGATIVE); CLARITY,URINE CLEAR; COLOR,URINE YELLOW; GLUCOSE, URINE (UA) NEGATIVE (NEGATIVE); KETONES,URINE NEGATIVE (NEGATIVE); LEUKOCYTE ESTERASE ,URINE NEGATIVE (NEGATIVE); NITRITE,URINE NEGATIVE (NEGATIVE); PROTEIN,URINE TRACE (NEGATIVE)
[2021-06-01 13:34] LABS: BACTERIA,URINE NEGATIVE /HPF; SQUAMOUS EPITHELIAL CELL,UR RARE /HPF
[2021-06-01 13:35] LABS: AMPHETAMINE SCREEN, URINE NEGATIVE (NEGATIVE); BARBITURATE SCREEN URINE NEGATIVE (NEGATIVE); BENZODIAZEPINES SCREEN URINE NEGATIVE (NEGATIVE); CANNABINOID SCREEN, URINE NEGATIVE (NEGATIVE); COCAINE SCREEN URINE NEGATIVE (NEGATIVE); METHADONE STAT NEGATIVE (NEGATIVE); METHAMPHETAMINE SCREEN URINE S NEGATIVE (NEGATIVE); OPIATE SCREEN URINE POSITIVE (NEGATIVE); OXYCODONE STAT NEGATIVE (NEGATIVE); PROPOXYPHENE STAT NEGATIVE (NEGATIVE); TRICYCLIC ANTIDEPRESSANTS SCRE NEGATIVE (NEGATIVE)
[2021-06-01 16:19] VITALS: BP 114/93
== END 2021-06-01 16:40 | disposition home or self-care (01) ==
LOC: EDUNIT# 08:53 → ER 08:54
DX: G89.29 Other chronic pain (principal); R45.851 Suicidal ideations; F31.9 Bipolar disorder, unspecified; R10.84 Generalized abdominal pain; I10 Essential (primary) hypertension; E11.9 Type 2 diabetes mellitus without complications; J44.9 Chronic obstructive pulmonary disease, unspecified; I25.10 Atherosclerotic heart disease of native coronary artery without angina pectoris; I25.2 Old myocardial infarction; I48.91 Unspecified atrial fibrillation; G47.33 Obstructive sleep apnea (adult) (pediatric); M54.9 Dorsalgia, unspecified; M79.7 Fibromyalgia; F03.90 Unspecified dementia, unspecified severity, without behavioral disturbance, psychotic disturbance, mood disturbance, and anxiety; K21.9 Gastro-esophageal reflux disease without esophagitis; F41.9 Anxiety disorder, unspecified; E66.9 Obesity, unspecified; Z99.89 Dependence on other enabling machines and devices; Z68.41 Body mass index [BMI] 40.0-44.9, adult; Z88.5 Allergy status to narcotic agent; Z99.3 Dependence on wheelchair; Z79.891 Long term (current) use of opiate analgesic; Z79.4 Long term (current) use of insulin; Z79.01 Long term (current) use of anticoagulants; Z79.899 Other long term (current) drug therapy
CPT/HCPCS: 36415; 51701; 80053; 80306; 80320; 80329; 81000; 84443; 85025; 93005

== ENCOUNTER 2021-07-05 10:30 | Emergency (ER) | payer MEDICARE, MEDICAID ==
[~2021-07-05] VITALS: Ht 165 cm; Wt 83.0 kg
[2021-07-05 10:59] LABS: BILIRUBIN,URINE NEGATIVE (NEGATIVE); CLARITY,URINE CLEAR; COLOR,URINE YELLOW; GLUCOSE, URINE (UA) NEGATIVE (NEGATIVE); KETONES,URINE TRACE (NEGATIVE); LEUKOCYTE ESTERASE ,URINE NEGATIVE (NEGATIVE); NITRITE,URINE NEGATIVE (NEGATIVE); PH,URINE 8.5 (5-9); PROTEIN,URINE 2+ (NEGATIVE)
[2021-07-05 11:03] LABS: BASOPHILS # (AUTO) 0.1 10^3/uL (0.0-0.1); BASOPHILS % (AUTO) 0 % (0-10); EOSINOPHILS # (AUTO) 0.2 10^3/uL (0.0-0.3); EOSINOPHILS % (AUTO) 2 % (0-10); HEMATOCRIT 36 % (35-52); HEMOGLOBIN 11.1 g/dL (11.5-16.0); LYMPHOCYTES % (AUTO) 9 % (12-44); MEAN CORPUSCULAR HEMOGLOBIN 31 pg (25-34); MEAN CORPUSCULAR HGB CONC 31 g/dL (32-36); MEAN CORPUSCULAR VOLUME 100 fL (80-99); MEAN PLATELET VOLUME 11.8 fL (9.0-12.2); MONOCYTES # (AUTO) 0.6 10^3/uL (0.0-1.0); MONOCYTES % (AUTO) 5 % (0-12); NEUTROPHILS % (AUTO) 84 % (42-75); PLATELET COUNT 276 10^3/uL (130-400); WHITE BLOOD COUNT 11.9 10^3/uL (4.3-11.0)
[2021-07-05 11:10] LABS: BACTERIA,URINE TRACE /HPF; SQUAMOUS EPITHELIAL CELL,UR 0-2 /HPF; WBC,URINE 0-2 /HPF
[2021-07-05 11:16] LABS: ALBUMIN 3.7 GM/DL (3.2-4.5); POTASSIUM 3.4 MMOL/L (3.6-5.0)
[2021-07-05 11:17] LABS: CALCIUM 9.8 MG/DL (8.5-10.1)
[2021-07-05 11:19] LABS: TOTAL PROTEIN 8.2 GM/DL (6.4-8.2)
[2021-07-05 11:20] LABS: BILIRUBIN,TOTAL 0.5 MG/DL (0.1-1.0)
[2021-07-05 11:22] LABS: CREATININE SERUM 0.83 MG/DL (0.60-1.30)
[2021-07-05] MEDS ORDERED: DEXTROSE 50% 50 ML (IMS) SYR IV ONE (11:30)
--- NOTE | 2021-07-05 11:52 | Diagnostic Imaging Report ---
CLINICAL INDICATION: Patient from [facility] with altered mental status. Patient yelling and constantly moving and throwing things in her room. EXAM: Axial CT scan of the brain without IV contrast with coronal and sagittal reformatted images. Auto Exposure Controls were utilized during the CT exam to meet ALARA standards for radiation dose reduction. COMPARISON: Head CT without contrast dated 05/13/2020. FINDINGS: There is no evidence of acute cerebral infarct, intracranial hemorrhage, or gross mass effect. There is no significant change to the diffuse brain parenchymal volume loss. 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 There is normal redmond-white matter distinction. There is no significant midline shift or herniation. There is no evidence of hydrocephalus. The basal cisterns are unremarkable. Hyperostosis frontalis interna is again seen. Otherwise, the skull, extracranial soft tissue, and orbits are unremarkable. The paranasal sinuses are unremarkable. Temporal bones show no significant abnormality. IMPRESSION: Stable CT scan of the brain with no interval acute intracranial process. Dictated by: Dictated on workstation # [id number]
[2021-07-05] MEDS ORDERED: LORazepam INJ 2 MG/ML (ATIVAN) VIAL IVP ONE ×2 (12:15→14:30)
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
[2021-07-05] MEDS ORDERED: HYDROcodone/APAP 5 MG/325 MG (LORTAB) TAB PO ONE ×2 (15:15→18:00)
[2021-07-05] MEDS ORDERED: OXcarbazepine (TRILEPTAL) 300 MG TAB PO STA (16:17)
[2021-07-05] MEDS ORDERED: LORA-404 PO (16:42)
[2021-07-05] MEDS ORDERED: OXCA300T18 PO (16:42)
[2021-07-05 18:51] VITALS: BP 143/58
== END 2021-07-05 18:51 | disposition home or self-care (01) ==
LOC: EDUNIT# 10:30 → ER 10:32
DX: E11.649 Type 2 diabetes mellitus with hypoglycemia without coma (principal); R45.4 Irritability and anger; F31.9 Bipolar disorder, unspecified; I10 Essential (primary) hypertension; J44.9 Chronic obstructive pulmonary disease, unspecified; F03.90 Unspecified dementia, unspecified severity, without behavioral disturbance, psychotic disturbance, mood disturbance, and anxiety; I48.91 Unspecified atrial fibrillation; G47.30 Sleep apnea, unspecified; K21.9 Gastro-esophageal reflux disease without esophagitis; M79.7 Fibromyalgia; F41.9 Anxiety disorder, unspecified; G89.29 Other chronic pain; M54.9 Dorsalgia, unspecified; I25.2 Old myocardial infarction; I25.10 Atherosclerotic heart disease of native coronary artery without angina pectoris; E66.9 Obesity, unspecified; Z68.30 Body mass index [BMI] 30.0-30.9, adult; Z99.89 Dependence on other enabling machines and devices; Z79.01 Long term (current) use of anticoagulants; Z79.4 Long term (current) use of insulin; Z79.891 Long term (current) use of opiate analgesic; Z79.899 Other long term (current) drug therapy
CPT/HCPCS: 36415; 51702; 70450; 80053; 81000; 82947; 85025; 86141

== ENCOUNTER 2021-08-09 17:03 | Inpatient (IN) | payer MEDICARE, MEDICAID ==
[~2021-08-09] VITALS: Ht 175 cm; Wt 119.7 kg
[~2021-08-09 17:03] MED LIST changes: -DOXY100C2; +DOXY100C5; +LORA-404 PO; -QUET25TA34 PO; +QUET25TA35 PO; -QUET50TA22 PO; +QUET50TA23 PO
[2021-08-09] MEDS ORDERED: cefTRIAXone 1,000 MG in WATER (STERILE) FOR INJECTION 10 ML IV ONE (17:15)
[2021-08-09] MEDS ORDERED: NS IV 500 ML 500 ML IV ONE (17:15)
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
[2021-08-09 17:41] LABS: BASOPHILS # (AUTO) 0.1 10^3/uL (0.0-0.1); BASOPHILS % (AUTO) 1 % (0-10); EOSINOPHILS # (AUTO) 0.6 10^3/uL (0.0-0.3); EOSINOPHILS % (AUTO) 5 % (0-10); HEMATOCRIT 33 % (35-52); HEMOGLOBIN 9.9 g/dL (11.5-16.0); LYMPHOCYTES # (AUTO) 2.2 10^3/uL (1.0-4.0); LYMPHOCYTES % (AUTO) 18 % (12-44); MEAN CORPUSCULAR HEMOGLOBIN 30 pg (25-34); MEAN CORPUSCULAR HGB CONC 30 g/dL (32-36); MEAN CORPUSCULAR VOLUME 101 fL (80-99); MEAN PLATELET VOLUME 11.7 fL (9.0-12.2); MONOCYTES # (AUTO) 0.9 10^3/uL (0.0-1.0); MONOCYTES % (AUTO) 8 % (0-12); NEUTROPHILS # (AUTO) 8.4 10^3/uL (1.8-7.8); NEUTROPHILS % (AUTO) 69 % (42-75); PLATELET COUNT 219 10^3/uL (130-400); WHITE BLOOD COUNT 12.2 10^3/uL (4.3-11.0)
[2021-08-09 17:52] LABS: ALBUMIN 3.5 GM/DL (3.2-4.5); POTASSIUM 4.3 MMOL/L (3.6-5.0)
[2021-08-09 17:54] LABS: CALCIUM 9.2 MG/DL (8.5-10.1)
[2021-08-09 17:55] LABS: TOTAL PROTEIN 7.3 GM/DL (6.4-8.2)
[2021-08-09 17:57] LABS: BILIRUBIN,TOTAL 0.3 MG/DL (0.1-1.0)
[2021-08-09 17:58] LABS: BILIRUBIN,URINE NEGATIVE (NEGATIVE); CLARITY,URINE CLEAR; COLOR,URINE YELLOW; GLUCOSE, URINE (UA) NEGATIVE (NEGATIVE); KETONES,URINE NEGATIVE (NEGATIVE); LEUKOCYTE ESTERASE ,URINE TRACE (NEGATIVE); NITRITE,URINE POSITIVE (NEGATIVE); PROTEIN,URINE TRACE (NEGATIVE)
[2021-08-09 17:59] LABS: CREATININE SERUM 1.53 MG/DL (0.60-1.30)
[2021-08-09 18:07] LABS: BACTERIA,URINE LARGE /HPF
[2021-08-09] MEDS ORDERED: LACTATED RINGERS 1,000 ML IV SCH (20:15)
[2021-08-09] MEDS ORDERED: CATHETER FLUSH 10 ML SYR IV PRN (20:15)
[2021-08-09 20:22] VITALS: BP 151/71
[2021-08-09] MEDS: inSUlin ASPART (NovoLOG) 1 UNIT/0.01 ML (CHARGE PER UNIT) SC SCH (22:01)
[2021-08-09] MEDS: RT-ALBUTEROL HFA 8.5 GM INHALER IH PRN (22:54)
[2021-08-09] MEDS ORDERED: FUROSEMIDE 40 MG/4 ML INJ (LASIX) IVP ONE (23:00)
[2021-08-09] MEDS ORDERED: FUROSEMIDE 40 MG/4 ML INJ (LASIX) ONE (23:00)
[2021-08-10] VITALS: BP 154/74
[2021-08-10 04:13] VITALS: BP 147/78
[2021-08-10 05:29] LABS: BASOPHILS # (AUTO) 0.1 10^3/uL (0.0-0.1); BASOPHILS % (AUTO) 0 % (0-10); EOSINOPHILS % (AUTO) 0 % (0-10); HEMATOCRIT 32 % (35-52); HEMOGLOBIN 9.7 g/dL (11.5-16.0); LYMPHOCYTES # (AUTO) 1.3 10^3/uL (1.0-4.0); LYMPHOCYTES % (AUTO) 9 % (12-44); MEAN CORPUSCULAR HEMOGLOBIN 30 pg (25-34); MEAN CORPUSCULAR HGB CONC 30 g/dL (32-36); MEAN CORPUSCULAR VOLUME 100 fL (80-99); MEAN PLATELET VOLUME 11.4 fL (9.0-12.2); MONOCYTES # (AUTO) 0.5 10^3/uL (0.0-1.0); MONOCYTES % (AUTO) 4 % (0-12); NEUTROPHILS # (AUTO) 12.4 10^3/uL (1.8-7.8); NEUTROPHILS % (AUTO) 86 % (42-75); PLATELET COUNT 231 10^3/uL (130-400); WHITE BLOOD COUNT 14.4 10^3/uL (4.3-11.0)
[2021-08-10 05:40] LABS: POTASSIUM 3.7 MMOL/L (3.6-5.0)
[2021-08-10 05:42] LABS: CALCIUM 8.9 MG/DL (8.5-10.1)
[2021-08-10 05:46] LABS: CREATININE SERUM 1.23 MG/DL (0.60-1.30)
[2021-08-10] MEDS: inSUlin ASPART (NovoLOG) 1 UNIT/0.01 ML (CHARGE PER UNIT) SC SCH ×5 (06:11→20:44)
[2021-08-10 06:12] LABS: ANISOCYTOSIS SLIGHT; HYPOCHROMASIA SLIGHT; LYMPHOCYTES % (MANUAL) 12 %; MONOCYTES % (MANUAL) 1 %; NEUTROPHILS % (MANUAL) 87 %; POIKILOCYTOSIS SLIGHT
[2021-08-10 08:00] VITALS: BP 174/74
[2021-08-10] MEDS ORDERED: SILV50CR28 TOP (11:39)
[2021-08-10] MEDS ORDERED: MELA5TAB14 PO (11:39)
[2021-08-10] MEDS ORDERED: HYDR-3817 PO (11:39)
[2021-08-10] MEDS ORDERED: POLY17PO6 PO (11:39)
[2021-08-10] MEDS ORDERED: FLUO10CA29 PO (11:39)
[2021-08-10] MEDS ORDERED: TRZ50T PO (11:39)
[2021-08-10] MEDS ORDERED: OLN5T PO (11:39)
[2021-08-10] MEDS ORDERED: DICL20GE TP (11:39)
[2021-08-10] MEDS ORDERED: RT-ALBUTEROL SULF 2.5 MG/3 ML PRE-MIX VIAL ONE (11:51)
[2021-08-10 12:00] VITALS: BP 153/79
[2021-08-10] MEDS ORDERED: FUROSEMIDE 40 MG/4 ML INJ (LASIX) IVP ONE (12:00)
[2021-08-10] MEDS: ALPRAZolam 0.25 MG (XANAX) TAB PO PRN ×2 (12:20→20:38)
[2021-08-10] MEDS ORDERED: CEFEPIME 1,000 MG/SWFI 10 ML IV PUSH IV SCH ×2 (14:00)
[2021-08-10] MEDS ORDERED: ALPRAZolam 0.5 MG (XANAX) TAB PO ONE (15:00)
[2021-08-10 16:00] VITALS: BP 172/80
[2021-08-10] MEDS: RIVAROXABAN 20 MG TABLET (XARELTO) PO SCH (16:12)
[2021-08-10] MEDS: HYDROcodone/APAP 7.5 MG/325 MG (LORTAB, LORCET PLUS) TABLET PO PRN ×2 (16:12→21:21)
[2021-08-10] MEDS ORDERED: cefTRIAXone 1,000 MG/SWFI 10 ML IV PUSH IV SCH ×2 (17:00)
[2021-08-10] MEDS: metFORMIN 500 MG (GLUCOPHAGE) TAB PO SCH (17:25)
[2021-08-10] MEDS: SIMETHICONE 80 MG (MYLICON) CHEW PO PRN (18:02)
--- NOTE | 2021-08-10 18:12 | History & Physical-Hospitalist ---
History of Present Illness HPI/Chief Complaint Agata Pringle is a 75 year old female with PMH HTN, AFib, CAD, aortic stenosis, DVT/PE, T2DM on insulin, MADELYN, morbid obesity, who presented with weakness. She was recently discharged from [facility]. Her reports that she hasn't left her chair since going home. She denies fevers and chills. She has had dysuria. She denies frequency and urgency. She has not been urinating very much. She reports abdominal pain. Source: patient, family Exam Limitations: no limitations Date Seen 08/10/21 Time Seen by a Provider: 10:30 Attending Physician Kely Webster MD PCP Lb Christine DO Referring Physician Date of Admission Aug 09, 2021 at 18:20 Home Medications & Allergies Home Medications Reviewed patient Home Medication Reconciliation performed by pharmacy medication reconciliations edger technician and/or nursing. Patients Allergies have been reviewed. Allergies Allergies Coded Allergies Penicillins (Verified Allergy, Mild, 02/19/19) codeine (Verified Allergy, Mild, PT TAKES HYDROCODONE AT HOME, 02/19/19) nitrofurantoin (Verified Allergy, Mild, RASH, 02/19/19) ITCHING/RASH pregabalin (Verified Allergy, Unknown, 02/19/19) sulfur dioxide (Verified Allergy, Unknown, 02/19/19) Past Tvllrgi-Ivjpvf-Smkjyz Hx Patient Social History Tobacco Use?: No Use of E-Cig and/or Vaping dev: No Substance use?: No Alcohol Use?: No Pt feels they are or have been: No Immunizations Up To Date Date of Influenza Vaccine: Aug 25, 2020 First/Initial COVID19 Vaccinat: January, Second COVID19 Vaccination Humaz: January, Tetanus Booster (TDap): Unknown Hepatitis A: No Hepatitis B: No PED Vaccines UTD: Yes Date of Pneumonia Vaccine: Sep 05, 2012 Seasonal Allergies Seasonal Allergies: Yes (pollen) Current Status Advance Directives: Unable to obtain Communicates: Verbally Primary Language: Kosovan Preferred Spoken Language: Kosovan Is interpretation needed?: No Sensory deficits: Vision impairment, Hearing impairment Past Medical History Surgeries: Abdominal, Amputation, Appendectomy, Bladder Surgery, Breast, Cardiac, Eye Surgery, Gallbladder, 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, Orthopedic, Tonsillectomy, Vascular Surgery Pneumonia, Chronic Bronchitis, Pulmonary Embolism, Sleep Apnea, COPD Currently Using CPAP: Yes Currently Using BIPAP: No Atrial Fibrillation, Chronic Edema/Swelling, Coronary Artery Disease, Deep Vein Thrombosis, Heart Attack, Heart Murmur, High Cholesterol, Hypertension, Syncope, Valvular Heart Disease Dementia, Vertigo [employer] History: 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, Menopausal Sexually Transmitted Disease: No HIV/AIDS: No Renal Failure, UTI-Chronic Abdominal Hernia, Colitis, Gastroesophageal Reflux, Hemorrhoids, Ulcer Arthritis, Fibromyalgia, Chronic Back Pain, Fractures Diabetes, Insulin dep Cataract, Macular Degeneration Loss of Vision: Denies Hearing Impairment: Hard of Hearing Breast Did You Recieve Any Treatments: Yes What Type of Treatment Did You: Chemotherapy, Surgical Intervention Anxiety, Bipolar, Depression Pruritis Blood Disorders: Yes (DVT'S/ P.E.'S / PHLEBITIS) Adverse Reaction/Blood Tranf: No Family Medical History BULBAR POLIO G8 BROTHER Diabetes mellitus G8 BROTHER UNCLE FH: cancer G8 BROTHER FH: kidney cancer G8 SISTER Cancer, Diabetes, Hypertension PT STATES SHE IS DNR/DNI Review of Systems Constitutional: weakness EENTM: no symptoms reported Respiratory: no symptoms reported Cardiovascular: no symptoms reported Gastrointestinal: abdominal pain Genitourinary: decreased output, dysuria Musculoskeletal: no symptoms reported Skin: no symptoms reported Psychiatric/Neurological: No Symptoms Reported Physical Exam Physical Exam Vital Signs Vital Signs - First Documented 08/09/21 17:05 Temp 36.7 Pulse 82 Resp 18 B/P (MAP) 151/71 (97) Pulse Ox 97 O2 Delivery Nasal Cannula O2 Flow Rate 3.00 Capillary Refill : Height, Weight, BMI Height: 5'9.00" Weight: 250lbs. 0.0oz. [id number]; 43.82 BMI Method:Stated General Appearance: No Apparent Distress, Obese HEENT: PERRL/EOMI, Pharynx Normal Neck: Normal Inspection, Supple Respiratory: Lungs Clear, Normal Breath Sounds, No Respiratory Distress Cardiovascular: Systolic Murmur, Irregularly Irregular Gastrointestinal: Normal Bowel Sounds, Soft, Tenderness Extremity: Pedal Edema, Swelling Neurologic/Psychiatric: Alert, Motor Weakness Skin: Warm/Dry, Ecchymosis (legs) Results Results/Procedures Labs Laboratory Tests 08/09/21 17:30 08/10/21 05:22 Patient resulted labs reviewed. Imaging: Reviewed Imaging Report Assessment/Plan Admission Diagnosis Urinary tract infection Admission Status: Observation Assessment and Plan Urinary tract infection Acute kidney injury UA consistent with UTI Started on Rocephin Transition to Cefepime due to history of resistance Started on IV fluids Appears fluid overloaded Begin Lasix Obtain chest xray Check BNP Check procalcitonin Debility PT/OT May need skilled placement again HTN AFib History of DVT/PE Bipolar disorder Continue home meds Anxiety Xanax as needed T2DM Decreased dose of Levemir Novolog with meals Sliding scale insulin Morbid obesity Clinically significant, no acute management needs DVT prophylaxis: already receiving therapeutic anticoagulation Diagnosis/Problems Diagnosis/Problems (1) UTI (urinary tract infection) Status: Acute Qualifiers: Urinary tract infection type: acute cystitis Hematuria presence: without hematuria Qualified Codes: N30.00 - Acute cystitis without hematuria (2) VICKIE (acute kidney injury) Status: Acute (3) Physical debility Status: Acute KELY WEBSTER MD Aug 10, 2021 18:12
--- NOTE | 2021-08-10 18:52 | Diagnostic Imaging Report ---
INDICATION: Shortness of air. COMPARISON: 05/18/2021. TECHNIQUE: Single radiograph of the chest dated August 10, 2021. FINDINGS: The cardiac silhouette is enlarged, appearing slightly more prominent than the prior examination. Significant central pulmonary vascular congestion is present, worsened since the prior examination. Increased interstitial opacities are noted throughout the lungs, bilaterally. No large-volume pleural effusion. No pneumothorax. No acute osseous abnormality. IMPRESSION: Developing interstitial opacities favored to relate to interstitial edema given worsening cardiomegaly and significant pulmonary vascular congestion. Recommend continued radiographic follow-up. Dictated by: Dictated on workstation # [id number]
[2021-08-10 20:00] VITALS: BP 160/80
[2021-08-10] MEDS: traZODone 50 MG (DESYREL) TAB PO SCH (20:38)
[2021-08-10] MEDS: cloNIDine 0.1 MG (CATAPRES) TAB PO SCH (20:38)
[2021-08-10] MEDS: OLANZapine 5 MG (ZyPREXA) TAB PO SCH (20:38)
[2021-08-10] MEDS: CEFEPIME 1,000 MG/SWFI 10 ML IV PUSH IV SCH ×2 (20:38)
[2021-08-10] MEDS: DICLOFENAC 1% GEL 100 GM (VOLTAREN) TUBE TP PRN (20:39)
[2021-08-11 00:11] VITALS: BP 138/73
[2021-08-11] MEDS: CEFEPIME 1,000 MG/SWFI 10 ML IV PUSH IV SCH ×8 (02:58→20:15)
[2021-08-11] MEDS: HYDROcodone/APAP 7.5 MG/325 MG (LORTAB, LORCET PLUS) TABLET PO PRN ×3 (03:36→22:27)
[2021-08-11] MEDS: SIMETHICONE 80 MG (MYLICON) CHEW PO PRN (03:41)
[2021-08-11 03:51] LABS: BASOPHILS # (AUTO) 0.1 10^3/uL (0.0-0.1); BASOPHILS % (AUTO) 0 % (0-10); EOSINOPHILS # (AUTO) 0.1 10^3/uL (0.0-0.3); EOSINOPHILS % (AUTO) 1 % (0-10); HEMATOCRIT 32 % (35-52); HEMOGLOBIN 9.8 g/dL (11.5-16.0); LYMPHOCYTES # (AUTO) 1.9 10^3/uL (1.0-4.0); LYMPHOCYTES % (AUTO) 13 % (12-44); MEAN CORPUSCULAR HEMOGLOBIN 31 pg (25-34); MEAN CORPUSCULAR HGB CONC 31 g/dL (32-36); MEAN CORPUSCULAR VOLUME 100 fL (80-99); MEAN PLATELET VOLUME 11.6 fL (9.0-12.2); MONOCYTES # (AUTO) 0.7 10^3/uL (0.0-1.0); MONOCYTES % (AUTO) 5 % (0-12); NEUTROPHILS # (AUTO) 11.6 10^3/uL (1.8-7.8); NEUTROPHILS % (AUTO) 80 % (42-75); PLATELET COUNT 225 10^3/uL (130-400); WHITE BLOOD COUNT 14.4 10^3/uL (4.3-11.0)
[2021-08-11 03:56] VITALS: BP 168/78
[2021-08-11 04:01] LABS: POTASSIUM 3.3 MMOL/L (3.6-5.0)
[2021-08-11 04:02] LABS: CALCIUM 9.1 MG/DL (8.5-10.1)
[2021-08-11 04:07] LABS: CREATININE SERUM 0.89 MG/DL (0.60-1.30)
[2021-08-11] MEDS: inSUlin ASPART (NovoLOG) 1 UNIT/0.01 ML (CHARGE PER UNIT) SC SCH ×7 (04:09→20:21)
[2021-08-11] MEDS: ALPRAZolam 0.25 MG (XANAX) TAB PO PRN (06:00)
[2021-08-11 08:00] VITALS: BP 156/84
[2021-08-11] MEDS ORDERED: FLUoxetine HCL 10 MG (PROzac) CAPSULE/TABLET PO SCH (09:00)
[2021-08-11] MEDS ORDERED: FUROSEMIDE 40 MG/4 ML INJ (LASIX) IVP SCH (09:00)
[2021-08-11] MEDS: lisINopril 40 MG (PRINIVIL) TABLET PO SCH (09:03)
[2021-08-11] MEDS: metFORMIN 500 MG (GLUCOPHAGE) TAB PO SCH ×2 (09:03→17:20)
[2021-08-11] MEDS: cloNIDine 0.1 MG (CATAPRES) TAB PO SCH ×2 (09:03→21:00)
[2021-08-11] MEDS: FAMOTIDINE 20 MG (PEPCID) TABLET PO SCH (09:03)
[2021-08-11] MEDS: amLODIPine 5 MG (NORVASC) TAB PO SCH (09:03)
[2021-08-11] MEDS ORDERED: ALPRAZolam 0.5 MG (XANAX) TAB ONE (09:24)
[2021-08-11] MEDS ORDERED: ALPRAZolam 0.5 MG (XANAX) TAB PO ONE (09:30)
[2021-08-11] MEDS ORDERED: ACETAMINOPHEN 325 MG TABLET PO PRN (09:45)
[2021-08-11] MEDS: LORazepam 0.5 MG (ATIVAN) TABLET PO PRN ×3 (09:51→22:27)
[2021-08-11] MEDS: RT-ALBUTEROL HFA 8.5 GM INHALER IH PRN (10:25)
--- NOTE | 2021-08-11 10:28 | Physical Therapy Evaluation ---
PT Evaluation-General Medical Diagnosis Admission Date Aug 09, 2021 at 18:20 Medical Diagnosis: UTI/VICKIE/physical debility Onset Date: Aug 09, 2021 Therapy Diagnosis Therapy Diagnosis: generalized weakness/debility Height/Weight Height (Feet): 5 Height (Inches): 9.00 Weight (Pounds): 250 Weight (Ounces): 0.0 Precautions Precautions/Isolations: Standard Precautions Referral Physician: Lennox Reason for Referral: Evaluation/Treatment Medical History Pertinent Medical History: Atrial Fib, Arthritis, Breast CA S/P Mastectomy, COPD, DM, Dementia, Fractures, HTN, Renal Insufficiency Current History EMS from home/recent dismissal from [place] (2 days prior) Reviewed History: Yes Social History Home: Apartment Current Living Status: Spouse Entry Into Home: Level Entry Prior Prior Level of Function SCALE: Activities may be completed with or without assistive devices. 8-Hevnhcwgbt-ulbdqtx completes the activity by him/herself with no assistance from a helper. 5-Set-up or Clean-up Assistance-helper sets up or cleans up; patient completes activity. [place] assists only prior to or following the activity. 4-Supervision or Touching Assistance-helper provides verbal cues and/or touching/steadying and/or contact guard assistance as patient completes activity. Assistance may be provided throughout the activity or intermittently. 3-Partial/Moderate Assistance-helper does LESS THAN HALF the effort. [place] lifts, holds or supports trunk or limbs, but provides less than half the effort. 2-Substantial/Maximal Assistance-helper does MORE THAN HALF the effort. [place] lifts or holds trunk or limbs and provides more than half the effort. 7-Zstttnrxt-mqeyls does ALL the effort. Patient does none of the effort to complete the activity. Or, the assistance of 2 or more helpers is required for the patient to complete the activity. If activity was not attempted, code reason: 7-Patient Refused. 9-Not Applicable-not attempted and the patient did not perform the activity before the current illness, exacerbation or injury. 10-Not Attempted due to Environmental Limitations-(lack of equipment, weather restraints, etc.). 88-Not Attempted due to Medical Conditions or Safety Concerns. Bed Mobility: 3 Transfers (B,C,W/C): 3 Gait: 3 Stairs: 9 Wheelchair Mobility: 2 Indoor Mobility (Ambulation): Needed Some Help Prior Devices Use: Manual wheelchair, Walker PT Evaluation-Current Subjective Patient agrees to PT. Objective Patient Orientation: Person, Time, Situation Attachments: Oxygen (BiPap), Baker Catheter ROM/Strength ROM Lower Extremities bilateral LE WFL Strength Lower Extremities 3-/5 grossly bilateral LE Integumentary/Posture Integumentary refer to nursing notes (noted bilateral LE edema and redness distal LE's) Bladder Incontinence: Baker Cath Posture WFL Neuromuscular (Tone, Coordination, Reflexes) diminished coordination due to inactivity Sensory Vision: Functional Hearing: Functional Transfers Roll Left to Right (QC): 2 Sit to Lying (QC): 2 Lying to Sitting/Side of Bed(Q: 2 Sit to Stand (QC): 1 Chair/Lyv-ch-Jczip Xfer(QC): 7 Gait Does the Patient Walk?: No and Walking Goal IS indicated Mode of Locomotion: Both Anticipated Mode of Locomotion: Both Walk 10 feet (QC): 88 Walk 50 ft with 2 Turns(QC): 9 Walk 150 ft (QC): 9 Walking 10ft/uneven surface-QC: 9 Distance: 5 side steps Gait Assistive Device: FWW Balance Sitting Static: Fair Sitting Dynamic: Fair Standing Static: Poor Standing Dynamic: Poor Picking up an Object (QC): 9 Assessment/Needs 75 y.o. female, will benefit from skilled PT to address functional strength and mobility to improve current LOF. Rehab Potential: Guarded PT Detention Goals Production Aide Goals PT Detention Goals Time Frame: Sep 02, 2021 Roll Left & Right (QC): 3 Sit to Lying (QC): 3 Lying-Sitting on Side/Bed(QC): 3 Sit to Stand (QC): 3 Chair/Fag-zp-Grtjs Xfer(QC): 3 Toilet Transfer (QC): 3 Walk 10 feet (QC): 3 PT Plan Problem List Problem List: Activity Tolerance, Functional Strength, Safety, Balance, Gait, Transfer, Bed Mobility Treatment/Plan Treatment Plan: Continue Plan of Care Treatment Plan: Bed Mobility, Education, Functional Activity Brodie, Functional Strength, Gait, Safety, Therapeutic Exercise, Transfers Treatment Duration: Sep 02, 2021 Frequency: 6 times per week Estimated Hrs Per Day: .25 hour per day Time/GCodes Time In: 837 Time Out: 848 Total Billed Treatment Time: 11 Total Billed Treatment 1 visit EVModC 11 min NATASHA TINEO PT Aug 11, 2021 10:28
--- NOTE | 2021-08-11 11:58 | Occupational Therapy Eval ---
OT Evaluation-General/PLF Medical Diagnosis Admission Date Aug 09, 2021 at 18:20 Medical Diagnosis: UTI/VICKIE/physical debility Onset Date: Aug 09, 2021 Therapy Diagnosis Therapy Diagnosis: decreased ADL status, weakness Height/Weight Height (Feet): 5 Height (Inches): 9.00 Weight (Pounds): 250 Weight (Ounces): 0.0 Precautions Precautions/Isolations: Standard Precautions Referral Physician: Lennox Referral Reason: Evaluation/Treatment Medical History Pertinent Medical History: Atrial Fib, Arthritis, Breast CA S/P Mastectomy, COPD, DM, Dementia, Fractures, HTN, Renal Insufficiency Additional Medical History morbid obesity, aortic stenosis, PNA, chronic bronchitis, DVT/PE, CAD, Vertigo, renal failure, arthritis, chronic back pain, fibromyalgia, cataract, macular degeneration, anxiety/depression, bipolar. Current History Presents with weakness, recently discharged home from [place] and per report she hadn't been up out of her chair. Social History Home: Apartment Current Living Status: Spouse Entry Into Home: Level Entry ADL-Prior Level of Function SCALE: Activities may be completed with or without assistive devices. 1-Agbccrllim-qvlkevr completes the activity by him/herself with no assistance from a helper. 5-Set-up or Clean-up Assistance-helper sets up or cleans up; patient completes activity. [place] assists only prior to or following the activity. 4-Supervision or Touching Assistance-helper provides verbal cues and/or touching/steadying and/or contact guard assistance as patient completes activity. Assistance may be provided throughout the activity or intermittently. 3-Partial/Moderate Assistance-helper does LESS THAN HALF the effort. [place] lifts, holds or supports trunk or limbs, but provides less than half the effort. 2-Substantial/Maximal Assistance-helper does MORE THAN HALF the effort. [place] lifts or holds trunk or limbs and provides more than half the effort. 6-Mepunqfdr-mimwxu does ALL the effort. Patient does none of the effort to complete the activity. Or, the assistance of 2 or more helpers is required for the patient to complete the activity. If activity was not attempted, code reason: 7-Patient Refused. 9-Not Applicable-not attempted and the patient did not perform the activity before the current illness, exacerbation or injury. 10-Not Attempted due to Environmental Limitations-(lack of equipment, weather restraints, etc.). 88-Not Attempted due to Medical Conditions or Safety Concerns. ADL PLOF Comments Pt indicates she was able to use FWW to perform functional mobility ~30', dress, shower and toilet self independently. Self Care: Independent Functional Cognition: Needed Some Help OT Current Status Subjective Pt laying in bed, at bedside. Pt agreeable to OT tx, attempting to take BiPAP mask off throughout session Mental Status/Objective Patient Orientation: Person, Confused Attachments: Baker Catheter, Oxygen (BiPAP) Current Upper Extremity ROM RUE shoulder flexion to approx 90 degrees, LUE WFL Upper Extremity Strength grossly 3/5 ADL-Treatment Toileting Hygiene (QC): 1 (catheter) Other Treatments Pt in bed, present. Pt and provide information about PLOF and home set up. Pt participates in UE screen, noted decreased ROM R shoulder, correlates this with injury several years ago when pt fractured her humerus. In order to increase BUE Strength and activity tolerance, pt completed x10 reps each of the following exercises: overhead press and front punch. Pt required moderate verbal and tactile cues with exercises, and max verbal cues to leave BiPAP mask alone as she kept attempting to remove it. Pt had difficulty staying on task with exercises, easily distracted. Post tx, pt in bed, call light in reach and all needs met, present. Education OT Patient Education: Correct positioning, Energy conservation, Exercise program, Modified ADL techniques, Progress toward Goal/Update tx plan, Purpose of tx/functional activities, Rehab process Teaching Recipient: Patient Teaching Methods: Discussion Response to Teaching: Reinforcement Needed OT Penitentiary Goals Penitentiary Goals Time Frame: Aug 25, 2021 Eating (QC): 6 Oral Hygiene (QC): 5 Toileting Hygiene (QC): 4 Shower/Bathe Self (QC): 4 Upper Body Dressing (QC): 4 Lower Body Dressing (QC): 4 On/Off Footwear (QC): 4 Additional Goals: 1-Demonstrate ADL Tasks, 2-Verbalize Understanding, 3- ImproveStrength/Brodie 1=Demonstrate adherence to instructed precautions during ADL tasks. 2=Patient will verbalize/demonstrate understanding of assistive devices/modifications for ADL. 3=Patient will improve strength/tolerance for activity to enable patient to perform ADL's. OT Education/Plan Problem List/Assessment Assessment: Decreased Activ Tolerance, Decreased Safety Aware, Decreased UE Strength, Impaired Cognition, Impaired Funct Balance, Impaired I ADL's, Impaired Self-Care Skills, Restricted Funct UE ROM Discharge Recommendations Plan/Recommendations: Continue POC Treatment Plan/Plan of Care Patient would benefit from OT for education, treatment and training to promote independence in ADL's, mobility, safety and/or upper extremity function for ADL's. Plan of Care: ADL Retraining, Functional Mobility, UE Funct Exercise/Act Treatment Duration: Aug 25, 2021 Frequency: 5 times per week Estimated Hrs Per Day: .25 hour per day Rehab Potential: Guarded Time/GCodes Start Time: 11:15 Stop Time: 11:30 Total Time Billed (hr/min): 15 Billed Treatment Time 1, MARCO GARCÍA OT Aug 11, 2021 11:58
[2021-08-11 12:00] VITALS: BP 139/73
--- NOTE | 2021-08-11 12:18 | Progress Note - Hospitalist ---
Subjective HPI/CC On Admission Date Seen by Provider: Aug 11, 2021 Time Seen by Provider: 09:35 Agata Pringle is a 75 year old female with PMH HTN, AFib, CAD, aortic stenosis, DVT/PE, T2DM on insulin, MADELYN, morbid obesity, who presented with weakness. She was recently discharged from [facility]. Her reports that she hasn't left her chair since going home. She denies fevers and chills. She has had dysuria. She denies frequency and urgency. She has not been urinating very much. She reports abdominal pain. Subjective/Events-last exam She is having chest pain. It is located in the center of her chest and radiating to her right shoulder. She is also short of breath. She is feeling anxious. She reports feeling nauseous. She has not vomited. Objective Exam Vital Signs Vital Signs Date Time Temp Pulse Resp B/P (MAP) Pulse Ox O2 Delivery O2 Flow Rate FiO2 08/11/21 10:26 86 28 93 32.00 08/11/21 08:00 36.9 156/84 (108) Nasal Cannula Capillary Refill : General Appearance: Anxious, Chronically ill, Mild Distress, Obese Respiratory: No Respiratory Distress, Crackles, Decreased Breath Sounds Cardiovascular: Regular Rate, Rhythm, No Murmur Gastrointestinal: Normal Bowel Sounds, Non Tender, Soft Extremity: Normal Inspection, Pedal Edema Neurologic/Psychiatric: Alert, Oriented x3, No Motor/Sensory Deficits, Normal Mood/Affect Skin: Normal Color, Warm/Dry Results/Procedures Lab Laboratory Tests 08/11/21 03:44 Patient resulted labs reviewed. Imaging: Reviewed Imaging Report Assessment/Plan Assessment and Plan Assess & Plan/Chief Complaint Chest pain EKG unremarkable Troponin normal Consult cardiology, appreciate assistance Urinary tract infection UA consistent with UTI Awaiting urine culture results, gram negative swati Continue Cefepime Acute kidney injury Creatinine improving Appears fluid overloaded Increase Lasix Chest xray with pulmonary edema Debility PT/OT May need skilled placement again HTN AFib History of DVT/PE Bipolar disorder Continue home meds Anxiety Ativan as needed Increase Prozac T2DM Continue Levemir and Metformin Novolog with meals Sliding scale insulin Morbid obesity Clinically significant, no acute management needs DVT prophylaxis: already receiving therapeutic anticoagulation Diagnosis/Problems Diagnosis/Problems (1) UTI (urinary tract infection) Status: Acute Qualifiers: Urinary tract infection type: acute cystitis Hematuria presence: without hematuria Qualified Codes: N30.00 - Acute cystitis without hematuria (2) VICKIE (acute kidney injury) Status: Acute (3) Physical debility Status: Acute (4) Pulmonary edema Status: Acute Qualifiers: Chronicity: acute Qualified Codes: J81.0 - Acute pulmonary edema (5) Acute exacerbation of CHF (congestive heart failure) Status: Acute (6) Chest pain Status: Acute KELY WEBSTER MD Aug 11, 2021 12:18
--- NOTE | 2021-08-11 13:58 | Consultation-Cardiology ---
HPI-Cardiology Cardiology Consultation Date of Consultation 08/11/21 Date of Admission Time Seen by Provider: 13:52 Indication: Chest pain HPI 75-year-old lady with history of coronary artery disease, hypertension, paroxysmal atrial fibrillation, aortic valve stenosis, was released from [facility] earlier this week, noted by her that she is more lethargic, brought to the emergency room and noted to have urinary tract infection, she was started on antibiotic, started to have worsening dyspnea. Had an episode of chest pain this morning described as dull in nature in the retrosternal area. I was called for evaluation, on my evaluation patient was on BiPAP, denied any active pain at this point. Home Medications & Allergies Allergies: Coded Allergies: Penicillins (Verified Allergy, Mild, 02/19/19) codeine (Verified Allergy, Mild, PT TAKES HYDROCODONE AT HOME, 02/19/19) nitrofurantoin (Verified Allergy, Mild, RASH, 02/19/19) ITCHING/RASH pregabalin (Verified Allergy, Unknown, 02/19/19) sulfur dioxide (Verified Allergy, Unknown, 02/19/19) Home Medication List Reviewed: Yes PYB-Nqzkua-Sgqwrk Hx Patient Social History Marital Status: Employed/Student: retired Type Used: Cigarettes 2nd Hand Smoke Exposure: No Recent Hopitalizations: No Have you traveled recently?: No Alcohol Use?: No Immunizations Up To Date Tetanus Booster (TDap): Unknown Date of Pneumonia Vaccine: Sep 05, 2012 Date of Influenza Vaccine: Aug 25, 2020 Past Medical History Discussed with Family Medical History Significant Family History: Cancer, Diabetes, Hypertension Family History: BULBAR POLIO G8 BROTHER Diabetes mellitus G8 BROTHER UNCLE FH: cancer G8 BROTHER FH: kidney cancer G8 SISTER Review of Systems-General Review of Systems Constitutional: malaise, weakness EENTM: no symptoms reported Respiratory: see HPI; No cough; dyspnea on exertion; No hemoptysis; orthopnea; No phlegm; short of breath; No stridor, No wheezing, No other Cardiovascular: see HPI, chest pain; No edema, No Hx of Intervention, No palpitations, No syncope, No vascular heart diseas, No other Gastrointestinal: no symptoms reported, see HPI, abdominal pain Genitourinary: see HPI, decreased output, dysuria Musculoskeletal: see HPI, joint pain, muscle stiffness, muscle weakness Skin: no symptoms reported, see HPI Psychiatric/Neurological: No Symptoms Reported, See HPI All Other Systems Reviewed Negative Unless Noted: No Reviewed Test Results Reviewed Test Results Lab Laboratory Tests Test 08/10/21 17:05 08/10/21 20:31 08/11/21 03:44 08/11/21 09:30 Range/Units Glucometer 130 H 125 H 70-110 MG/DL White Blood Count 14.4 H 4.3-11.0 10^3/uL Red Blood Count 3.20 L 3.80-5.11 10^6/uL Hemoglobin 9.8 L 11.5-16.0 g/dL Hematocrit 32 L 35-52 % Mean Corpuscular Volume 100 H 80-99 fL Mean Corpuscular Hemoglobin 31 25-34 pg Mean Corpuscular Hemoglobin Concent 31 L 32-36 g/dL Red Cell Distribution Width 14.6 H 10.0-14.5 % Platelet Count 225 130-400 10^3/uL Mean Platelet Volume 11.6 9.0-12.2 fL Immature Granulocyte % (Auto) 1 % Neutrophils (%) (Auto) 80 H 42-75 % Lymphocytes (%) (Auto) 13 12-44 % Monocytes (%) (Auto) 5 0-12 % Eosinophils (%) (Auto) 1 0-10 % Basophils (%) (Auto) 0 0-10 % Neutrophils # (Auto) 11.6 H 1.8-7.8 10^3/uL Lymphocytes # (Auto) 1.9 1.0-4.0 10^3/uL Monocytes # (Auto) 0.7 0.0-1.0 10^3/uL Eosinophils # (Auto) 0.1 0.0-0.3 10^3/uL Basophils # (Auto) 0.1 0.0-0.1 10^3/uL Immature Granulocyte # (Auto) 0.1 0.0-0.1 10^3/uL Sodium Level 141 135-145 MMOL/L Potassium Level 3.3 L 3.6-5.0 MMOL/L Chloride Level 94 L 98-107 MMOL/L Carbon Dioxide Level 39 H 21-32 MMOL/L Anion Gap 8 5-14 MMOL/L Blood Urea Nitrogen 19 H 7-18 MG/DL Creatinine 0.89 0.60-1.30 MG/DL Estimat Glomerular Filtration Rate 62 BUN/Creatinine Ratio 21 Glucose Level 153 H 70-105 MG/DL Calcium Level 9.1 8.5-10.1 MG/DL Troponin I < 0.028 <0.028 NG/ML Test 08/11/21 12:09 Range/Units Glucometer 176 H 70-110 MG/DL Physical Exam Physical Exam Vital Signs Vital Signs - First Documented 08/09/21 17:05 Temp 36.7 Pulse 82 Resp 18 B/P (MAP) 151/71 (97) Pulse Ox 97 O2 Delivery Nasal Cannula O2 Flow Rate 3.00 Capillary Refill : Height, Weight, BMI Height: 5'9.00" Weight: 250lbs. 0.0oz. [id number]; 43.82 BMI Method:Stated General Appearance: Anxious, Chronically ill, Mild Distress, Obese Eyes: Bilateral Eye Normal Inspection, Bilateral Eye PERRL, Bilateral Eye EOMI HEENT: PERRL/EOMI, Pharynx Normal Neck: Normal Inspection, Supple Respiratory: No Respiratory Distress, Crackles, Decreased Breath Sounds Cardiovascular: Regular Rate, Rhythm, No Murmur Gastrointestinal: Normal Bowel Sounds, Non Tender, Soft Back: Normal Inspection, No CVA Tenderness, No Vertebral Tenderness Extremity: Normal Inspection, Pedal Edema Neurologic/Psychiatric: Alert, Oriented x3, No Motor/Sensory Deficits, Normal Mood/Affect Skin: Normal Color, Warm/Dry Lymphatic: No Adenopathy A/P-Cardiology Admission Diagnosis Acute respiratory failure Chest pain Urinary tract infection Aortic stenosis Assessment/Plan Acute respiratory failure, combination of underlying COPD and fluid overload. Currently maintained on BiPAP. Started on gentle diuresis and monitor tolerance and response Urinary tract infection, managed by primary care physician Chest pain nonspecific etiology, has extensive history, cardiac catheterization was carried out in April 2021 showing mild disease nonobstructive disease. Patient has history of chronic chest pain with multiple cardiac catheterization done in the past including 2010, 2013 with Ivarest to the LAD, and the last cardiac catheterization was done in April 2021. Chronic pedal edema due to chronic venous insufficiency and chronic DVT. Usually patient respond to gentle diuresis Acute on chronic renal insufficiency, continue to monitor renal function closely. History of moderate aortic valve stenosis, normal left ventricular function with severe pulmonary hypertension, severe mitral regurgitation, moderate aortic regurgitation, last echo was done in April 2021. Continue to monitor History of patent foramen ovale detected in the previous echo. Continue to monitor Persistent atrial fibrillation, maintained on Xarelto, rate is controlled, continue to monitor [id number] score is 4, yearly risk patient is 4 percent, has been on Xarelto and tolerating it well. Continue to monitor Hypertension, continue to monitor Hyperlipidemia,controlled, continue to monitor Mild bilateral carotid stenosis, last ultrasound was done in Jul 2020 Obesity, BMI is 43, discussed weight loss Benign essential tremor Diabetes mellitus, managed by Dr. Romero. History of renal cysts, has been followed by Dr. Sethi. History of breast cancer, followed and managed by Dr. Fernández. Bipolar disorder Mnires disease Anxiety Depression COPD/Obstructive sleep apnea not using BiPAP at this time. Degenerative joint disease, multiple hip surgeries, MRSA infection. Now followed and managed by primary care physician SHEELA BANUELOS MD Aug 11, 2021 13:58
[2021-08-11 15:34] VITALS: BP 123/71
[2021-08-11] MEDS: FUROSEMIDE 40 MG/4 ML INJ (LASIX) IVP SCH (17:20)
[2021-08-11] MEDS: RIVAROXABAN 20 MG TABLET (XARELTO) PO SCH (17:20)
[2021-08-11 19:44] VITALS: BP 134/63
[2021-08-11] MEDS: traZODone 50 MG (DESYREL) TAB PO SCH (21:00)
[2021-08-11] MEDS: OLANZapine 5 MG (ZyPREXA) TAB PO SCH (21:00)
[2021-08-12] VITALS (7 sets, daily range): BP systolic 119–174; BP diastolic 58–83
[2021-08-12] MEDS: CEFEPIME 1,000 MG/SWFI 10 ML IV PUSH IV SCH ×2 (03:08)
[2021-08-12] MEDS: HYDROcodone/APAP 7.5 MG/325 MG (LORTAB, LORCET PLUS) TABLET PO PRN (05:10)
[2021-08-12] MEDS: LORazepam 0.5 MG (ATIVAN) TABLET PO PRN ×3 (05:10→20:56)
[2021-08-12] MEDS: inSUlin ASPART (NovoLOG) 1 UNIT/0.01 ML (CHARGE PER UNIT) SC SCH ×7 (06:24→20:57)
[2021-08-12] MEDS: FUROSEMIDE 40 MG/4 ML INJ (LASIX) IVP SCH ×2 (06:59→20:50)
[2021-08-12] MEDS ORDERED: FUROSEMIDE 40 MG (LASIX) TAB PO ONE (07:00)
[2021-08-12 07:22] LABS: BASOPHILS # (AUTO) 0.1 10^3/uL (0.0-0.1); BASOPHILS % (AUTO) 0 % (0-10); EOSINOPHILS % (AUTO) 0 % (0-10); HEMATOCRIT 32 % (35-52); HEMOGLOBIN 9.9 g/dL (11.5-16.0); LYMPHOCYTES # (AUTO) 0.6 10^3/uL (1.0-4.0); LYMPHOCYTES % (AUTO) 4 % (12-44); MEAN CORPUSCULAR HEMOGLOBIN 30 pg (25-34); MEAN CORPUSCULAR HGB CONC 31 g/dL (32-36); MEAN CORPUSCULAR VOLUME 98 fL (80-99); MEAN PLATELET VOLUME 11.5 fL (9.0-12.2); MONOCYTES # (AUTO) 0.7 10^3/uL (0.0-1.0); MONOCYTES % (AUTO) 4 % (0-12); NEUTROPHILS % (AUTO) 92 % (42-75); PLATELET COUNT 219 10^3/uL (130-400); WHITE BLOOD COUNT 17.5 10^3/uL (4.3-11.0)
[2021-08-12 07:29] LABS: POTASSIUM 3.1 MMOL/L (3.6-5.0)
[2021-08-12 07:30] LABS: CALCIUM 9.4 MG/DL (8.5-10.1)
[2021-08-12 07:34] LABS: CREATININE SERUM 0.81 MG/DL (0.60-1.30)
[2021-08-12] MEDS ORDERED: KCL 20 MEQ TAB (K-DUR) PO ONE (08:30)
[2021-08-12] MEDS: metFORMIN 500 MG (GLUCOPHAGE) TAB PO SCH ×2 (08:44→16:04)
[2021-08-12] MEDS: POTASSIUM CL 10MEQ/50ML IVPB 50 ML IV SCH (08:44)
[2021-08-12] MEDS: MAGNESIUM 1 GM/100 ML IVPB 100 ML IV SCH (08:45)
[2021-08-12] MEDS: KCL 20 MEQ TAB (K-DUR) PO SCH (08:45)
[2021-08-12] MEDS: amLODIPine 5 MG (NORVASC) TAB PO SCH (08:46)
[2021-08-12] MEDS: lisINopril 40 MG (PRINIVIL) TABLET PO SCH (08:46)
[2021-08-12] MEDS: cloNIDine 0.2 MG (CATAPRES) TAB PO SCH ×2 (08:46→20:56)
[2021-08-12] MEDS: FLUoxetine HCL 10 MG (PROzac) CAPSULE/TABLET PO SCH (08:46)
[2021-08-12] MEDS: FAMOTIDINE 20 MG (PEPCID) TABLET PO SCH (08:46)
[2021-08-12] MEDS: cefTRIAXone 2,000 MG in WATER (STERILE) FOR INJECTION 20 ML IV SCH ×2 (08:47→10:25)
[2021-08-12] MEDS ORDERED: hydrALAZINE (APESOLINE) 20 MG/ML VIAL IV PRN (10:30)
[2021-08-12] MEDS ORDERED: amLODIPine 5 MG (NORVASC) TAB PO ONE (10:30)
--- NOTE | 2021-08-12 11:14 | Physical Therapy Progress Note ---
Therapy Progress Note Pt on hold per nursing request. Will check back next available date for therapies. MALATHI GAMING STUCCO LABORER Aug 12, 2021 11:14
--- NOTE | 2021-08-12 11:53 | Cardiology Progress Note ---
Subjective Date Seen by Provider: Aug 12, 2021 Time Seen by Provider: 11:52 Subjective/Events-last exam Patient was seen at bedside, sleeping, maintained on BiPAP Review of Systems General: Other (Unable to provide review of system) Objective-Cardiology Exam Last Set of Vital Signs Vital Signs 08/12/21 08/12/21 08/12/21 08:01 10:33 10:57 Temp 35.9 Pulse 60 Resp 16 B/P (MAP) 119/58 (78) Pulse Ox 96 O2 Delivery NIV Bilevel O2 Flow Rate 30.00 I&O Intake and Output 08/12/21 00:00 Intake Total 870 ml Output Total 3900 ml Balance -3030 ml Intake Oral 870 ml Output Urine Total 3900 ml # Bowel Movements 3 General: Mild Distress HEENT: Atraumatic, PERRLA Neck: Supple Lungs: Normal Air Movement Heart: Regular Rate, Normal S1, Normal S2 Abdomen: Normal Bowel Sounds Extremities: No Clubbing, No Cyanosis Skin: No Rashes, No Breakdown Neuro: Normal Tone Results Lab Laboratory Tests 08/12/21 07:13 A/P-Cardiology Admission Diagnosis Acute respiratory failure Chest pain Urinary tract infection Aortic stenosis Assessment/Plan Acute respiratory failure, combination of underlying COPD and fluid overload. Currently maintained on BiPAP. Continue on diuretics and monitor tolerance and response Urinary tract infection, managed by primary care physician Chest pain nonspecific etiology, has extensive history, cardiac catheterization was carried out in April 2021 showing mild disease nonobstructive disease. Patient has history of chronic chest pain with multiple cardiac catheterization done in the past including 2010, 2013 with Ivarest to the LAD, and the last cardiac catheterization was done in April 2021. Chronic pedal edema due to chronic venous insufficiency and chronic DVT. Usually patient respond to gentle diuresis Acute on chronic renal insufficiency, continue to monitor renal function closely. History of moderate aortic valve stenosis, normal left ventricular function with severe pulmonary hypertension, severe mitral regurgitation, moderate aortic regurgitation, last echo was done in April 2021. Continue to monitor History of patent foramen ovale detected in the previous echo. Continue to monitor Persistent atrial fibrillation, maintained on Xarelto, rate is controlled, continue to monitor [id number] score is 4, yearly risk patient is 4 percent, has been on Xarelto and tolerating it well. Continue to monitor Hypertension, continue to monitor Hyperlipidemia,controlled, continue to monitor Mild bilateral carotid stenosis, last ultrasound was done in Jul 2020 Obesity, BMI is 43, discussed weight loss Benign essential tremor Diabetes mellitus, managed by Dr. Romero. History of renal cysts, has been followed by Dr. Sethi. History of breast cancer, followed and managed by Dr. Fernández. Bipolar disorder Mnires disease Anxiety Depression COPD/Obstructive sleep apnea not using BiPAP at this time. Degenerative joint disease, multiple hip surgeries, MRSA infection. Now followed and managed by primary care physician SHEELA BANUELOS MD Aug 12, 2021 11:53
--- NOTE | 2021-08-12 11:57 | Diagnostic Imaging Report ---
INDICATION: Hypoxia. TECHNIQUE: Single view chest 10:40 AM. CORRELATION STUDY: 08/10/2021 FINDINGS: Heart size enlarged, mediastinum prominent. Vascular congestion is present. Scattered bilateral pulmonary parenchymal opacities are again demonstrated, left greater than right, along with small effusions. Overall increased in severity. IMPRESSION: 1. Findings suggestive of congestive heart failure. Bilateral extensive patchy pulmonary densities again demonstrated, may reflect worsening edema versus infiltrate. Slight nodularity questioned. Follow-up imaging is recommended. Dictated by: Dictated on workstation # [id number]
--- NOTE | 2021-08-12 13:14 | Progress Note - Hospitalist ---
Subjective HPI/CC On Admission Date Seen by Provider: Aug 12, 2021 Time Seen by Provider: 10:50 Agata Pringle is a 75 year old female with PMH HTN, AFib, CAD, aortic stenosis, DVT/PE, T2DM on insulin, MADELYN, morbid obesity, who presented with weakness. She was recently discharged from [facility]. Her reports that she hasn't left her chair since going home. She denies fevers and chills. She has had dysuria. She denies frequency and urgency. She has not been urinating very much. She reports abdominal pain. Subjective/Events-last exam She is not feeling well this morning. She does not want to talk much and does not provide very much information. She denies pain. She is short of breath. She is anxious. She is not wanting to eat or drink. Objective Exam Vital Signs Vital Signs Date Time Temp Pulse Resp B/P (MAP) Pulse Ox O2 Delivery O2 Flow Rate FiO2 08/12/21 10:57 60 16 96 30.00 08/12/21 10:33 119/58 (78) NIV Bilevel 08/12/21 08:01 35.9 Capillary Refill : General Appearance: Anxious, Chronically ill, Obese Respiratory: No Respiratory Distress, Decreased Breath Sounds, Other (Wearing BiPAP) Cardiovascular: Regular Rate, Rhythm, No Murmur Gastrointestinal: Normal Bowel Sounds, Non Tender, Soft Extremity: Normal Inspection, Non Tender, Pedal Edema Neurologic/Psychiatric: Alert, Depressed Affect Skin: Normal Color, Warm/Dry Results/Procedures Lab Laboratory Tests 08/12/21 07:13 Patient resulted labs reviewed. Imaging: Reviewed Imaging Report Assessment/Plan Assessment and Plan Assess & Plan/Chief Complaint Acute respiratory failure with hypoxia Possibly due to fluid overload Continue Lasix Check COVID and flu Fully vaccinated for COVID Acute kidney injury Creatinine improving Appears fluid overloaded Continue Lasix Chest xray with pulmonary edema Klebsiella pneumoniae urinary tract infection Urine culture with Klebsiella Transition to Rocephin Debility PT/OT Will likely need skilled placement again HTN AFib History of DVT/PE Bipolar disorder Continue home meds Anxiety Ativan as needed Increased Prozac T2DM Continue Levemir and Metformin Novolog with meals Sliding scale insulin Morbid obesity Clinically significant, no acute management needs DVT prophylaxis: already receiving therapeutic anticoagulation Chest pain, resolved Diagnosis/Problems Diagnosis/Problems (1) UTI (urinary tract infection) Status: Acute Qualifiers: Urinary tract infection type: acute cystitis Hematuria presence: without hematuria Qualified Codes: N30.00 - Acute cystitis without hematuria (2) VICKIE (acute kidney injury) Status: Acute (3) Physical debility Status: Acute (4) Pulmonary edema Status: Acute Qualifiers: Chronicity: acute Qualified Codes: J81.0 - Acute pulmonary edema (5) Acute exacerbation of CHF (congestive heart failure) Status: Acute (6) Chest pain Status: Resolved Resolution Date/Time: 08/12/21 @ 13:14 KELY WEBSTER MD Aug 12, 2021 13:14
[2021-08-12] MEDS ORDERED: DEXTROSE 50% 50 ML (IMS) SYR IV PRN (16:30)
[2021-08-12] MEDS: RIVAROXABAN 20 MG TABLET (XARELTO) PO SCH (16:35)
[2021-08-12] MEDS: OLANZapine 5 MG (ZyPREXA) TAB PO SCH (20:56)
[2021-08-12] MEDS: traZODone 50 MG (DESYREL) TAB PO SCH (20:56)
[2021-08-13 04:17] VITALS: BP 138/65
[2021-08-13] MEDS: LORazepam 0.5 MG (ATIVAN) TABLET PO PRN ×2 (05:16→20:11)
[2021-08-13 05:49] LABS: BASOPHILS # (AUTO) 0.1 10^3/uL (0.0-0.1); BASOPHILS % (AUTO) 1 % (0-10); EOSINOPHILS # (AUTO) 0.3 10^3/uL (0.0-0.3); EOSINOPHILS % (AUTO) 3 % (0-10); HEMATOCRIT 30 % (35-52); HEMOGLOBIN 9.2 g/dL (11.5-16.0); LYMPHOCYTES # (AUTO) 1.7 10^3/uL (1.0-4.0); LYMPHOCYTES % (AUTO) 15 % (12-44); MEAN CORPUSCULAR HEMOGLOBIN 30 pg (25-34); MEAN CORPUSCULAR HGB CONC 31 g/dL (32-36); MEAN CORPUSCULAR VOLUME 97 fL (80-99); MEAN PLATELET VOLUME 12.1 fL (9.0-12.2); MONOCYTES # (AUTO) 0.8 10^3/uL (0.0-1.0); MONOCYTES % (AUTO) 7 % (0-12); NEUTROPHILS # (AUTO) 8.8 10^3/uL (1.8-7.8); NEUTROPHILS % (AUTO) 75 % (42-75); PLATELET COUNT 218 10^3/uL (130-400); WHITE BLOOD COUNT 11.7 10^3/uL (4.3-11.0)
[2021-08-13] MEDS: FUROSEMIDE 40 MG/4 ML INJ (LASIX) IVP SCH ×2 (05:55→17:14)
[2021-08-13 05:58] LABS: POTASSIUM 3.1 MMOL/L (3.6-5.0)
[2021-08-13 06:00] LABS: CALCIUM 9.3 MG/DL (8.5-10.1)
[2021-08-13 06:04] LABS: CREATININE SERUM 0.96 MG/DL (0.60-1.30)
[2021-08-13] MEDS: inSUlin ASPART (NovoLOG) 1 UNIT/0.01 ML (CHARGE PER UNIT) SC SCH ×7 (06:16→21:27)
[2021-08-13] MEDS: POTASSIUM CL 10MEQ/50ML IVPB 50 ML IV SCH (06:17)
[2021-08-13] MEDS: KCL 20 MEQ TAB (K-DUR) PO SCH (06:19)
[2021-08-13] MEDS: HYDROcodone/APAP 7.5 MG/325 MG (LORTAB, LORCET PLUS) TABLET PO PRN ×2 (06:33→20:11)
[2021-08-13] MEDS ORDERED: KCL 20 MEQ TAB (K-DUR) PO SCH ×2 (07:00→09:00)
[2021-08-13] MEDS: MAGNESIUM 1 GM/100 ML IVPB 100 ML IV SCH (07:02)
[2021-08-13] MEDS ORDERED: METOLAZONE 5 MG (ZAROXOLYN) TAB PO ONE (07:15)
[2021-08-13 07:37] VITALS: BP 182/81
[2021-08-13] MEDS: lisINopril 40 MG (PRINIVIL) TABLET PO SCH (07:52)
[2021-08-13] MEDS: metFORMIN 500 MG (GLUCOPHAGE) TAB PO SCH ×2 (07:52→17:15)
[2021-08-13] MEDS: FAMOTIDINE 20 MG (PEPCID) TABLET PO SCH (07:52)
[2021-08-13] MEDS: amLODIPine 10 MG (NORVASC) TAB PO SCH (07:52)
[2021-08-13] MEDS: cloNIDine 0.2 MG (CATAPRES) TAB PO SCH ×2 (07:52→20:11)
[2021-08-13] MEDS: FLUoxetine HCL 10 MG (PROzac) CAPSULE/TABLET PO SCH (07:52)
[2021-08-13] MEDS: cefTRIAXone 2,000 MG in WATER (STERILE) FOR INJECTION 20 ML IV SCH (07:53)
--- NOTE | 2021-08-13 10:20 | Cardiology Progress Note ---
Subjective Date Seen by Provider: Aug 13, 2021 Time Seen by Provider: 10:18 Subjective/Events-last exam Patient is awake and comfortable, feeling better. No new complaint Review of Systems General: No Chills, No Night Sweats; Fatigue; No Malaise, No Appetite, No Other HEENT: No Head Aches, No Visual Changes, No Eye Pain, No Ear Pain, No Dysphasia, No Sinus Congestion, No Post Nasal Drip, No Sore Throat, No Other Pulmonary: No Dyspnea, No Cough, No Pleuritic Chest Pain, No Other Cardiovascular: No: Chest Pain, Palpitations, Orthopnea, Paroxysmal Noc. Dyspnea, Edema, Lt Headedness, Other Objective-Cardiology Exam Last Set of Vital Signs Vital Signs 08/13/21 08/13/21 07:37 08:04 Temp 36.6 Pulse 70 Resp 24 B/P (MAP) 182/81 (114) Pulse Ox 94 O2 Delivery Nasal Cannula O2 Flow Rate 4.00 I&O Intake and Output 08/13/21 00:00 Intake Total 450 ml Output Total 1750 ml Balance -1300 ml Intake Oral 450 ml Output Urine Total 1750 ml General: Alert, Oriented X3, Cooperative HEENT: Atraumatic, PERRLA Neck: Supple, No JVD Lungs: Clear to Auscultation, Normal Air Movement Heart: Regular Rate, Normal S1, Normal S2 Abdomen: Normal Bowel Sounds Extremities: No Clubbing, No Cyanosis Skin: No Rashes, No Breakdown Neuro: Normal Speech, Normal Tone Psych/Mental Status: Mental Status NL, Mood NL Results Lab Laboratory Tests 08/13/21 05:20 A/P-Cardiology Admission Diagnosis Acute respiratory failure Chest pain Urinary tract infection Aortic stenosis Assessment/Plan Acute respiratory failure, combination of underlying COPD and fluid overload. Return to baseline today, feeling better, improving. Chronic pedal edema with fluid overload. Maintained on Lasix, I gave her additional Zaroxolyn today, has history of chronic DVT which keeping her baselin e as mild to moderate edema. Urinary tract infection, managed by primary care physician Chest pain nonspecific etiology, has extensive history, cardiac catheterization was carried out in April 2021 showing mild disease nonobstructive disease. Patient has history of chronic chest pain with multiple cardiac catheterization done in the past including 2010, 2013 with IVUS to the LAD, and the last cardiac catheterization was done in April 2021. Acute on chronic renal insufficiency, continue to monitor renal function closely. History of moderate aortic valve stenosis, normal left ventricular function with severe pulmonary hypertension, moderate to severe mitral regurgitation, moderate aortic regurgitation, last echo was done in April 2021. Continue to monitor History of patent foramen ovale detected in the previous echo. Continue to monitor Persistent atrial fibrillation, maintained on Xarelto, rate is controlled, continue to monitor [id number] score is 4, yearly risk patient is 4 percent, has been on Xarelto and tolerating it well. Continue to monitor Hypertension, continue to monitor Hyperlipidemia,controlled, continue to monitor Mild bilateral carotid stenosis, last ultrasound was done in Jul 2020 Obesity, BMI is 43, discussed weight loss Benign essential tremor Diabetes mellitus, managed by Dr. Romero. History of renal cysts, has been followed by Dr. Sethi. History of breast cancer, followed and managed by Dr. Fernández. Bipolar disorder Mnires disease Anxiety Depression COPD/Obstructive sleep apnea not using BiPAP at this time. Degenerative joint disease, multiple hip surgeries, MRSA infection. Now followed and managed by primary care physician SHEELA BANUELOS MD Aug 13, 2021 10:20
[2021-08-13 12:36] VITALS: BP 128/56
--- NOTE | 2021-08-13 12:38 | Progress Note - Hospitalist ---
Subjective HPI/CC On Admission Date Seen by Provider: Aug 13, 2021 Time Seen by Provider: 11:20 Agata Pringle is a 75 year old female with PMH HTN, AFib, CAD, aortic stenosis, DVT/PE, T2DM on insulin, MADELYN, morbid obesity, who presented with weakness. She was recently discharged from [facility]. Her reports that she hasn't left her chair since going home. She denies fevers and chills. She has had dysuria. She denies frequency and urgency. She has not been urinating very much. She reports abdominal pain. Subjective/Events-last exam She is feeling better today. She is still a bit short of breath. She is not as anxious. Objective Exam Vital Signs Vital Signs Date Time Temp Pulse Resp B/P (MAP) Pulse Ox O2 Delivery O2 Flow Rate FiO2 08/13/21 08:04 Nasal Cannula 4.00 08/13/21 07:37 36.6 70 24 182/81 (114) 94 Capillary Refill : General Appearance: No Apparent Distress, Obese Respiratory: No Respiratory Distress, Crackles, Decreased Breath Sounds Cardiovascular: Regular Rate, Rhythm, Systolic Murmur Gastrointestinal: Normal Bowel Sounds, Non Tender, Soft Extremity: Pedal Edema, Swelling Neurologic/Psychiatric: Alert, Oriented x3, Depressed Affect, Motor Weakness Skin: Normal Color, Warm/Dry Results/Procedures Lab Laboratory Tests 08/13/21 05:20 Patient resulted labs reviewed. Imaging: Reviewed Imaging Report Assessment/Plan Assessment and Plan Assess & Plan/Chief Complaint Acute respiratory failure with hypoxia Acute on chronic CHF exacerbation Acute kidney injury COVID and flu negative Fully vaccinated for COVID Continue Lasix Klebsiella pneumoniae urinary tract infection Continue Rocephin Debility PT/OT Will likely need skilled placement again HTN AFib History of DVT/PE Bipolar disorder Continue home meds Anxiety Ativan as needed Increased Prozac T2DM Continue Levemir and Metformin Novolog with meals Sliding scale insulin Morbid obesity Clinically significant, no acute management needs DVT prophylaxis: already receiving therapeutic anticoagulation Chest pain, resolved Diagnosis/Problems Diagnosis/Problems (1) UTI (urinary tract infection) Status: Acute Qualifiers: Urinary tract infection type: acute cystitis Hematuria presence: without hematuria Qualified Codes: N30.00 - Acute cystitis without hematuria (2) VICKIE (acute kidney injury) Status: Acute (3) Physical debility Status: Acute (4) Pulmonary edema Status: Acute Qualifiers: Chronicity: acute Qualified Codes: J81.0 - Acute pulmonary edema (5) Acute exacerbation of CHF (congestive heart failure) Status: Acute (6) Chest pain Status: Resolved Resolution Date/Time: 08/12/21 @ 13:14 KELY WEBSTER MD Aug 13, 2021 12:37
[2021-08-13 16:31] VITALS: BP 142/65
[2021-08-13] MEDS: RIVAROXABAN 20 MG TABLET (XARELTO) PO SCH (17:14)
[2021-08-13 19:55] VITALS: BP 168/73
[2021-08-13] MEDS: traZODone 50 MG (DESYREL) TAB PO SCH (20:11)
[2021-08-13] MEDS: OLANZapine 5 MG (ZyPREXA) TAB PO SCH (20:11)
[2021-08-13] MEDS: DICLOFENAC 1% GEL 100 GM (VOLTAREN) TUBE TP PRN (20:16)
[2021-08-14] VITALS (7 sets, daily range): BP systolic 129–174; BP diastolic 58–74
[2021-08-14] MEDS: LORazepam 0.5 MG (ATIVAN) TABLET PO PRN ×2 (04:05→20:32)
[2021-08-14] MEDS: HYDROcodone/APAP 7.5 MG/325 MG (LORTAB, LORCET PLUS) TABLET PO PRN ×3 (04:05→20:32)
[2021-08-14] MEDS: inSUlin ASPART (NovoLOG) 1 UNIT/0.01 ML (CHARGE PER UNIT) SC SCH ×7 (05:39→20:23)
[2021-08-14 05:49] LABS: BASOPHILS # (AUTO) 0.1 10^3/uL (0.0-0.1); BASOPHILS % (AUTO) 1 % (0-10); EOSINOPHILS # (AUTO) 0.6 10^3/uL (0.0-0.3); EOSINOPHILS % (AUTO) 5 % (0-10); HEMATOCRIT 30 % (35-52); HEMOGLOBIN 9.3 g/dL (11.5-16.0); LYMPHOCYTES # (AUTO) 1.6 10^3/uL (1.0-4.0); LYMPHOCYTES % (AUTO) 15 % (12-44); MEAN CORPUSCULAR HEMOGLOBIN 30 pg (25-34); MEAN CORPUSCULAR HGB CONC 31 g/dL (32-36); MEAN CORPUSCULAR VOLUME 99 fL (80-99); MEAN PLATELET VOLUME 11.6 fL (9.0-12.2); MONOCYTES # (AUTO) 0.9 10^3/uL (0.0-1.0); MONOCYTES % (AUTO) 8 % (0-12); NEUTROPHILS # (AUTO) 7.5 10^3/uL (1.8-7.8); NEUTROPHILS % (AUTO) 71 % (42-75); PLATELET COUNT 215 10^3/uL (130-400); WHITE BLOOD COUNT 10.7 10^3/uL (4.3-11.0)
[2021-08-14 06:06] LABS: POTASSIUM 3.5 MMOL/L (3.6-5.0)
[2021-08-14 06:08] LABS: CALCIUM 9.3 MG/DL (8.5-10.1)
[2021-08-14 06:12] LABS: CREATININE SERUM 0.93 MG/DL (0.60-1.30)
[2021-08-14] MEDS: POTASSIUM CL 10MEQ/50ML IVPB 50 ML IV SCH (06:21)
[2021-08-14] MEDS: KCL 20 MEQ TAB (K-DUR) PO SCH (06:22)
[2021-08-14] MEDS: MAGNESIUM 1 GM/100 ML IVPB 100 ML IV SCH (06:24)
[2021-08-14] MEDS ORDERED: KCL 20 MEQ TAB (K-DUR) PO ONE (06:30)
[2021-08-14] MEDS: FUROSEMIDE 40 MG/4 ML INJ (LASIX) IVP SCH ×2 (06:45→18:06)
--- NOTE | 2021-08-14 08:40 | Cardiology Progress Note ---
Subjective Date Seen by Provider: Aug 14, 2021 Time Seen by Provider: 10:58 Subjective/Events-last exam Pt reports that she believes she is starting to get better. States her legs have improved. Review of Systems General: No Chills; Other (fever) HEENT: No Head Aches, No Visual Changes Pulmonary: No Cough; Other (SOB) Cardiovascular: Lt Headedness (when she wakes up in the morning); No: Chest Pain, Palpitations Gastrointestinal: Nausea; No: Vomiting, Abdominal Pain Musculoskeletal: leg pain, foot pain Neurological: Other (tingling in her toes); No: Weakness, Numbness Objective-Cardiology Exam Last Set of Vital Signs Vital Signs 08/14/21 08/14/21 08/14/21 08/14/21 08:30 08:54 09:00 09:09 Temp 35.8 Pulse 66 Resp 22 B/P (MAP) 142/69 (93) Pulse Ox 96 O2 Delivery Nasal Cannula O2 Flow Rate 3.00 I&O Intake and Output 08/14/21 00:00 Intake Total 980 ml Output Total 2800 ml Balance -1820 ml Intake Oral 980 ml Output Urine Total 2800 ml # Bowel Movements 1 General: Alert, Oriented X3, Cooperative HEENT: Atraumatic, EOMI Neck: Supple, No JVD Lungs: Clear to Auscultation, Normal Air Movement Heart: Regular Rate, Normal S1, Normal S2, No Murmurs Abdomen: Soft, Other (questionable slight tenderness in all 4 quadrants) Extremities: No Clubbing, No Cyanosis, Other (Pedal edema. No pitting) Skin: No Rashes, No Breakdown Neuro: Normal Speech Psych/Mental Status: Mental Status NL, Mood NL Results Lab Laboratory Tests 08/14/21 05:32 A/P-Cardiology Admission Diagnosis Acute respiratory failure Chest pain Urinary tract infection Aortic stenosis Assessment/Plan Status post acute respiratory failure with fluid overload and exacerbation of COPD, better today, on nasal cannula, more awake. Chronic pedal edema with fluid overload. Maintained on Lasix, given additional Zaroxolyn yesterday, has history of chronic DVT which keeping her baseline as mild to moderate edema. Urinary tract infection, managed by primary care physician Chest pain nonspecific etiology, has extensive history, cardiac catheterization was carried out in April 2021 showing mild disease nonobstructive disease. Patient has history of chronic chest pain with multiple cardiac catheterization done in the past including 2010, 2013 with IVUS to the LAD, and the last cardiac catheterization was done in April 2021. Acute on chronic renal insufficiency, continue to monitor renal function closely. History of moderate aortic valve stenosis, normal left ventricular function with severe pulmonary hypertension, moderate to severe mitral regurgitation, moderate aortic regurgitation, last echo was done in April 2021. Continue to monitor History of patent foramen ovale detected in the previous echo. Continue to monitor Persistent atrial fibrillation, maintained on Xarelto, rate is controlled, continue to monitor [id number] score is 4, yearly risk patient is 4 percent, has been on Xarelto and tolerating it well. Continue to monitor Hypertension, continue to monitor Hyperlipidemia,controlled, continue to monitor Mild bilateral carotid stenosis, last ultrasound was done in Jul 2020 Obesity, BMI is 43, discussed weight loss Benign essential tremor Diabetes mellitus, managed by Dr. Romero. History of renal cysts, has been followed by Dr. Sethi. History of breast cancer, followed and managed by Dr. Fernández. Bipolar disorder Mnires disease Anxiety Depression COPD/Obstructive sleep apnea not using BiPAP at this time. Degenerative joint disease, multiple hip surgeries, MRSA infection. Now followed and managed by primary care physician Supervisory-Addendum Brief Verification & Attestation Participated in pt care: history, MDM, physical Personally performed: exam, history, MDM, supervision of care Care discussed with: Medical Student Procedures: n/a Results interpretation: Verified all documentation Verification and Attestation of Medical Student E/M Service A medical student performed and documented this service in my presence. I reviewed and verified all information documented by the medical student and made modifications to such information, when appropriate. I personally performed the physical exam and medical decision making. I made few changes using italic font Sheela Pavon Aug 14, 2021,11:00 REBA GLEZ Aug 14, 2021 08:40 SHEELA PAVON MD Aug 14, 2021 11:00
[2021-08-14] MEDS: metFORMIN 500 MG (GLUCOPHAGE) TAB PO SCH ×2 (08:58→17:54)
[2021-08-14] MEDS: lisINopril 40 MG (PRINIVIL) TABLET PO SCH (08:58)
[2021-08-14] MEDS: cloNIDine 0.2 MG (CATAPRES) TAB PO SCH ×2 (08:58→20:32)
[2021-08-14] MEDS: FLUoxetine HCL 10 MG (PROzac) CAPSULE/TABLET PO SCH (08:58)
[2021-08-14] MEDS: FAMOTIDINE 20 MG (PEPCID) TABLET PO SCH (08:58)
[2021-08-14] MEDS: cefTRIAXone 2,000 MG in WATER (STERILE) FOR INJECTION 20 ML IV SCH (08:58)
[2021-08-14] MEDS: amLODIPine 10 MG (NORVASC) TAB PO SCH (08:58)
--- NOTE | 2021-08-14 11:56 | Physical Therapy Daily Note ---
PT Daily Note-Current Subjective Patient agrees to PT. Spouse present Mental Status Patient Orientation: Person, Time Attachments: Oxygen, Baker Catheter Transfers SCALE: Activities may be completed with or without assistive devices. 4-Bpemadwoya-dbzircg completes the activity by him/herself with no assistance from a helper. 5-Set-up or Clean-up Assistance-helper sets up or cleans up; patient completes activity. [place] assists only prior to or following the activity. 4-Supervision or Touching Assistance-helper provides verbal cues and/or touching/steadying and/or contact guard assistance as patient completes activity. Assistance may be provided throughout the activity or intermittently. 3-Partial/Moderate Assistance-helper does LESS THAN HALF the effort. [place] lifts, holds or supports trunk or limbs, but provides less than half the effort. 2-Substantial/Maximal Assistance-helper does MORE THAN HALF the effort. [place] lifts or holds trunk or limbs and provides more than half the effort. 5-Lbsefjeyl-anlowj does ALL the effort. Patient does none of the effort to complete the activity. Or, the assistance of 2 or more helpers is required for the patient to complete the activity. If activity was not attempted, code reason: 7-Patient Refused. 9-Not Applicable-not attempted and the patient did not perform the activity before the current illness, exacerbation or injury. 10-Not Attempted due to Environmental Limitations-(lack of equipment, weather restraints, etc.). 88-Not Attempted due to Medical Conditions or Safety Concerns. Lying to Sitting/Side of Bed(Q: 2 Sit to Stand (QC): 2 Chair/Dtn-fx-Sdlwl Xfer(QC): 2 sit to stand x 4 sets to FWW with standing x 1 min each Exercises Standing: Sit to Stand (4 sets) Treatments SAO2 remains >90% with activity on 5L NC. Assessment Patient up in recliner with needs met. Patient had c/o SOA, however, patient SAO2 remains >90%. PT Title Manager Goals Title Manager Goals PT Senior Care Goals Time Frame: Sep 02, 2021 Roll Left & Right (QC): 3 Sit to Lying (QC): 3 Lying-Sitting on Side/Bed(QC): 3 Sit to Stand (QC): 3 Chair/Haf-zp-Ahfmq Xfer(QC): 3 Toilet Transfer (QC): 3 Walk 10 feet (QC): 3 PT Plan Treatment/Plan Treatment Plan: Continue Plan of Care Treatment Plan: Bed Mobility, Education, Functional Activity [place], Functional Strength, Gait, Safety, Therapeutic Exercise, Transfers Treatment Duration: Sep 02, 2021 Frequency: 6 times per week Estimated Hrs Per Day: .25 hour per day Time/GCodes Time In: 1055 Time Out: 1111 Total Billed Treatment Time: 16 Total Billed Treatment 1 visit FA 16 min NATASHA TINEO PT Aug 14, 2021 11:56
--- NOTE | 2021-08-14 11:57 | Occupational Ther Daily Note ---
OT Current Status-Daily Note Subjective Pt. alert in recliner. Pt c/o 9/10 pain, nursing aware. Pt.agrees to therapy. Mental Status/Objective Patient Orientation: Person, Place, Time, Situation ADL-Treatment Therapy Code Descriptions/Definitions Functional [place] Measure: 0=Not Assessed/NA 4=Minimal Assistance 1=Total Assistance 5=Supervision or Setup 2=Maximal Assistance 6=Modified [place] 3=Moderate Assistance 7=Complete IndependenceSCALE: Activities may be completed with or without assistive devices. 4-Cquntwklzd-dfgyhph completes the activity by him/herself with no assistance from a helper. 5-Set-up or Clean-up Assistance-helper sets up or cleans up; patient completes activity. [place] assists only prior to or following the activity. 4-Supervision or Touching Assistance-helper provides verbal cues and/or touching /steadying and/or contact guard assistance as patient completes activity. Assistance may be provided throughout the activity or intermittently. 3-Partial/Moderate Assistance-helper does LESS THAN HALF the effort. [place] lifts, holds or supports trunk or limbs, but provides less than half the effort. 2-Substantial/Maximal Assistance-helper does MORE THAN HALF the effort. [place] lifts or holds trunk or limbs and provides more than half the effort. 0-Kixtprele-dkbbor does ALL the effort. Patient does none of the effort to complete the activity. Or, the assistance of 2 or more helpers is required for the patient to complete the activity. If activity was not attempted, code reason: 7-Patient Refused. 9-Not Applicable-not attempted and the patient did not perform the activity before the current illness, exacerbation or injury. 10-Not Attempted due to Environmental Limitations-(lack of equipment, weather restraints, etc.). 88-Not Attempted due to Medical Conditions or Safety Concerns. Other Treatment Pt. required skilled instruction for correct technique. Pt. used medium resistance theraband to complete B UE exs to strengthen for daily functional tasks. Shoulder horizontal abd/add, bicep curl, tricep extension, internal/external rotation, shoulder abd/add 5 reps 2 sets. Pt. required 1 rest break between sets. Pt. educated to perform exs throughout day. Pt. in room. Pt. in recliner call light/phone in reach. All needs met in room. Education OT Patient Education: Exercise program Teaching Recipient: Patient Teaching Methods: Demonstration, Discussion Response to Teaching: Verbalize Understanding, Return Demonstration, Reinforce ment Needed OT Director Of Player Personnel Goals Director Of Player Personnel Goals Time Frame: Aug 25, 2021 Eating (QC): 6 Oral Hygiene (QC): 5 Toileting Hygiene (QC): 4 Shower/Bathe Self (QC): 4 Upper Body Dressing (QC): 4 Lower Body Dressing (QC): 4 On/Off Footwear (QC): 4 Additional Goals: 1-Demonstrate ADL Tasks, 2-Verbalize Understanding, 3- ImproveStrength/Brodie 1=Demonstrate adherence to instructed precautions during ADL tasks. 2=Patient will verbalize/demonstrate understanding of assistive devices/modifications for ADL. 3=Patient will improve strength/tolerance for activity to enable patient to perform ADL's. OT Education/Plan Problem List/Assessment Assessment: Decreased Activ Tolerance, Decreased UE Strength, Impaired Self- Care Skills, Restricted Funct UE ROM Discharge Recommendations Plan/Recommendations: Continue POC Treatment Plan/Plan of Care Patient would benefit from OT for education, treatment and training to promote independence in ADL's, mobility, safety and/or upper extremity function for ADL's. Plan of Care: ADL Retraining, Functional Mobility, UE Funct Exercise/Act Treatment Duration: Aug 25, 2021 Frequency: 5 times per week Estimated Hrs Per Day: .25 hour per day Rehab Potential: Guarded Time/GCodes Start Time: 11:38 Stop Time: 11:50 Total Time Billed (hr/min): 12 Billed Treatment Time 1 visit- Ex 1 (12 min) GLORY VILLAR Aug 14, 2021 11:57
[2021-08-14] MEDS: DICLOFENAC 1% GEL 100 GM (VOLTAREN) TUBE TP PRN (12:05)
--- NOTE | 2021-08-14 12:44 | Progress Note - Hospitalist ---
Subjective HPI/CC On Admission Date Seen by Provider: Aug 14, 2021 Time Seen by Provider: 12:41 Agata Pringle is a 75 year old female with PMH HTN, AFib, CAD, aortic stenosis, DVT/PE, T2DM on insulin, MADELYN, morbid obesity, who presented with weakness. She was recently discharged from [facility]. Her reports that she hasn't left her chair since going home. She denies fevers and chills. She has had dysuria. She denies frequency and urgency. She has not been urinating very much. She reports abdominal pain. Subjective/Events-last exam Pt reports doing better today but still very weak. Clarified with her . She was only out of [place] for about 2 days prior to return. They are agreeable to return to [place]. Objective Exam Vital Signs Vital Signs Date Time Temp Pulse Resp B/P (MAP) Pulse Ox O2 Delivery O2 Flow Rate FiO2 08/14/21 09:09 96 Nasal Cannula 3.00 08/14/21 09:00 142/69 (93) 08/14/21 08:54 66 08/14/21 08:30 35.8 22 Capillary Refill : General Appearance: No Apparent Distress, Chronically ill, Obese Respiratory: Lungs Clear, No Respiratory Distress Cardiovascular: Regular Rate, Rhythm, No Murmur Neurologic/Psychiatric: Alert, Oriented x3 Results/Procedures Lab Laboratory Tests 08/14/21 05:32 Patient resulted labs reviewed. Imaging: Reviewed Imaging Report Assessment/Plan Assessment and Plan Assess & Plan/Chief Complaint Acute respiratory failure with hypoxia Acute on chronic CHF exacerbation Acute kidney injury COVID and flu negative Fully vaccinated for COVID Continue Lasix- switch to oral Back to baseline oxygen requirement Klebsiella pneumoniae urinary tract infection Switch to oral abx per sensitivities Debility PT/OT Will likely need skilled placement again- SW working on placement HTN AFib History of DVT/PE Bipolar disorder Continue home meds Anxiety Ativan as needed Increased Prozac T2DM Continue Levemir and Metformin Novolog with meals Sliding scale insulin Morbid obesity Clinically significant, no acute management needs DVT prophylaxis: already receiving therapeutic anticoagulation Chest pain, resolved ILENE GORMAN MD Aug 14, 2021 12:44
[2021-08-14] MEDS: RIVAROXABAN 20 MG TABLET (XARELTO) PO SCH (17:54)
[2021-08-14] MEDS: traZODone 50 MG (DESYREL) TAB PO SCH (20:32)
[2021-08-14] MEDS: OLANZapine 5 MG (ZyPREXA) TAB PO SCH (20:32)
[2021-08-15] VITALS: BP 135/78
[2021-08-15] MEDS: HYDROcodone/APAP 7.5 MG/325 MG (LORTAB, LORCET PLUS) TABLET PO PRN ×3 (03:50→21:02)
[2021-08-15] MEDS: LORazepam 0.5 MG (ATIVAN) TABLET PO PRN ×2 (03:50→21:01)
[2021-08-15 04:00] VITALS: BP 145/77
[2021-08-15 05:37] LABS: BASOPHILS # (AUTO) 0.1 10^3/uL (0.0-0.1); BASOPHILS % (AUTO) 1 % (0-10); EOSINOPHILS # (AUTO) 0.7 10^3/uL (0.0-0.3); EOSINOPHILS % (AUTO) 6 % (0-10); HEMATOCRIT 31 % (35-52); HEMOGLOBIN 9.4 g/dL (11.5-16.0); LYMPHOCYTES # (AUTO) 1.4 10^3/uL (1.0-4.0); LYMPHOCYTES % (AUTO) 12 % (12-44); MEAN CORPUSCULAR HEMOGLOBIN 30 pg (25-34); MEAN CORPUSCULAR HGB CONC 30 g/dL (32-36); MEAN CORPUSCULAR VOLUME 98 fL (80-99); MEAN PLATELET VOLUME 11.5 fL (9.0-12.2); MONOCYTES # (AUTO) 0.7 10^3/uL (0.0-1.0); MONOCYTES % (AUTO) 6 % (0-12); NEUTROPHILS # (AUTO) 8.5 10^3/uL (1.8-7.8); NEUTROPHILS % (AUTO) 75 % (42-75); PLATELET COUNT 252 10^3/uL (130-400); WHITE BLOOD COUNT 11.4 10^3/uL (4.3-11.0)
[2021-08-15 05:50] LABS: POTASSIUM 3.7 MMOL/L (3.6-5.0)
[2021-08-15 05:51] LABS: CALCIUM 9.5 MG/DL (8.5-10.1)
[2021-08-15 05:55] LABS: CREATININE SERUM 0.88 MG/DL (0.60-1.30)
[2021-08-15] MEDS: MAGNESIUM 1 GM/100 ML IVPB 100 ML IV SCH (06:05)
[2021-08-15] MEDS: inSUlin ASPART (NovoLOG) 1 UNIT/0.01 ML (CHARGE PER UNIT) SC SCH ×7 (06:05→20:57)
[2021-08-15] MEDS: KCL 20 MEQ TAB (K-DUR) PO SCH (06:06)
[2021-08-15] MEDS: POTASSIUM CL 10MEQ/50ML IVPB 50 ML IV SCH (06:06)
[2021-08-15] MEDS: FUROSEMIDE 40 MG/4 ML INJ (LASIX) IVP SCH ×2 (06:24→17:15)
--- NOTE | 2021-08-15 07:49 | Cardiology Progress Note ---
Subjective Date Seen by Provider: Aug 15, 2021 Time Seen by Provider: 09:00 Subjective/Events-last exam Pt reports that she is doing fine this morning. No longer has otero catheter in place. Says that she feels that her legs are improving in size Review of Systems General: Chills; No Other (fever) HEENT: No Visual Changes, No Eye Pain Pulmonary: No Dyspnea, No Cough Cardiovascular: Chest Pain, Palpitations; No: Lt Headedness Gastrointestinal: No: Nausea, Vomiting, Abdominal Pain Genitourinary: No Dysuria, No Frequency Musculoskeletal: No: leg pain, foot pain Neurological: No: Weakness, Numbness Objective-Cardiology Exam Last Set of Vital Signs Vital Signs 08/15/21 11:59 Temp 35.2 Pulse 90 Resp 19 B/P (MAP) 138/64 (88) Pulse Ox 87 O2 Delivery Nasal Cannula O2 Flow Rate 4.00 I&O Intake and Output 08/15/21 00:00 Intake Total 1440 ml Output Total 2950 ml Balance -1510 ml Intake Oral 1420 ml IV Total 20 ml Output Urine Total 2950 ml # Voids 2 # Bowel Movements 1 General: Alert, Oriented X3, Cooperative HEENT: Atraumatic, EOMI Neck: Supple, No JVD Lungs: Clear to Auscultation, Normal Air Movement Heart: Regular Rate, Normal S1, Normal S2, No Murmurs Abdomen: Soft, Other (questionable slight tenderness in all 4 quadrants) Extremities: No Clubbing, No Cyanosis, Other (Pedal edema. No pitting) Skin: No Rashes, No Breakdown Neuro: Normal Speech Psych/Mental Status: Mental Status NL, Mood NL Results Lab Laboratory Tests 08/15/21 05:11 A/P-Cardiology Admission Diagnosis Acute respiratory failure Chest pain Urinary tract infection Aortic stenosis Assessment/Plan Status post acute respiratory failure with fluid overload and exacerbation of COPD, better today. On 3L O2 via [place]. That is what she is on at home. Chronic pedal edema with fluid overload, improving. Maintained on Lasix, has history of chronic DVT which keeping her baseline as mild to moderate edema. Urinary tract infection, managed by primary care physician Chest pain nonspecific etiology, has extensive history, cardiac catheterization was carried out in April 2021 showing mild disease nonobstructive disease. Patient has history of chronic chest pain with multiple cardiac catheterization done in the past including 2013 with IVUS to the LAD, and the last cardiac catheterization was done in April 2021. Acute on chronic renal insufficiency, continue to monitor renal function closely. History of moderate aortic valve stenosis, normal left ventricular function with severe pulmonary hypertension, moderate to severe mitral regurgitation, moderate aortic regurgitation, last echo was done in April 2021. Continue to monitor History of patent foramen ovale detected in the previous echo. Continue to monitor Persistent atrial fibrillation, maintained on Xarelto, rate is controlled, continue to monitor [id number] score is 4, yearly risk patient is 4 percent, has been on Xarelto and tolerating it well. Continue to monitor Hypertension, continue to monitor Hyperlipidemia,controlled, continue to monitor Mild bilateral carotid stenosis, last ultrasound was done in Jul 2020 Obesity, BMI is 43, discussed weight loss Benign essential tremor Diabetes mellitus, managed by Dr. Romero. History of renal cysts, has been followed by Dr. Sethi. History of breast cancer, followed and managed by Dr. Fernández. Bipolar disorder Mnires disease Anxiety Depression COPD/Obstructive sleep apnea not using BiPAP at this time. Degenerative joint disease, multiple hip surgeries, MRSA infection. Now followed and managed by primary care physician Supervisory-Addendum Brief Verification & Attestation Participated in pt care: history, MDM, physical Personally performed: exam, history, MDM, supervision of care Care discussed with: Medical Student Procedures: n/a Results interpretation: Verified all documentation Verification and Attestation of Medical Student E/M Service A medical student performed and documented this service in my presence. I reviewed and verified all information documented by the medical student and made modifications to such information, when appropriate. I personally performed the physical exam and medical decision making. Patient was seen at bedside, laying down comfortably More awake, feeling better Okay for discharge or transfer to jail Sheela Pavon, Aug 15, 2021,12:01 REBA GLEZ Aug 15, 2021 07:49 SHEELA PAVON MD Aug 15, 2021 12:02
[2021-08-15 08:00] VITALS: BP 164/74
[2021-08-15] MEDS: FAMOTIDINE 20 MG (PEPCID) TABLET PO SCH (09:24)
[2021-08-15] MEDS: metFORMIN 500 MG (GLUCOPHAGE) TAB PO SCH ×2 (09:24→17:16)
[2021-08-15] MEDS: FLUoxetine HCL 10 MG (PROzac) CAPSULE/TABLET PO SCH (09:24)
[2021-08-15] MEDS: cloNIDine 0.2 MG (CATAPRES) TAB PO SCH ×2 (09:24→21:01)
[2021-08-15] MEDS: CEPHALEXIN 250 MG (KEFLEX) CAP PO SCH ×2 (09:24→21:07)
[2021-08-15] MEDS: lisINopril 40 MG (PRINIVIL) TABLET PO SCH (09:24)
[2021-08-15] MEDS: amLODIPine 10 MG (NORVASC) TAB PO SCH (09:24)
--- NOTE | 2021-08-15 10:33 | Progress Note - Hospitalist ---
Subjective HPI/CC On Admission Date Seen by Provider: Aug 15, 2021 Time Seen by Provider: 10:31 Agata Pringle is a 75 year old female with PMH HTN, AFib, CAD, aortic stenosis, DVT/PE, T2DM on insulin, MADELYN, morbid obesity, who presented with weakness. She was recently discharged from [facility]. Her reports that she hasn't left her chair since going home. She denies fevers and chills. She has had dysuria. She denies frequency and urgency. She has not been urinating very much. She reports abdominal pain. Subjective/Events-last exam Pt reports doing well today. Just up with PT and now on the commode. PT reports she did very well with them and needed little assistance to ambulate from the bed to the commode. Objective Exam Vital Signs Vital Signs Date Time Temp Pulse Resp B/P (MAP) Pulse Ox O2 Delivery O2 Flow Rate FiO2 08/15/21 10:15 Nasal Cannula 3.00 08/15/21 08:00 36.4 67 18 164/74 (104) 97 Capillary Refill : General Appearance: No Apparent Distress, Chronically ill, Obese Respiratory: Lungs Clear, No Respiratory Distress Cardiovascular: Regular Rate, Rhythm, No Murmur Neurologic/Psychiatric: Alert, Oriented x3 Results/Procedures Lab Laboratory Tests 08/15/21 05:11 Patient resulted labs reviewed. Imaging: Reviewed Imaging Report Assessment/Plan Assessment and Plan Assess & Plan/Chief Complaint Acute respiratory failure with hypoxia Acute on chronic CHF exacerbation Acute kidney injury COVID and flu negative Fully vaccinated for COVID Continue oral Lasix Back to baseline oxygen requirement Klebsiella pneumoniae urinary tract infection Continue oral abx Debility PT/OT Did much better today, will monitor progress HTN AFib History of DVT/PE Bipolar disorder Continue home meds Anxiety Ativan as needed Increased Prozac T2DM Continue Levemir and Metformin Novolog with meals Sliding scale insulin Morbid obesity Clinically significant, no acute management needs DVT prophylaxis: already receiving therapeutic anticoagulation Chest pain, resolved ILENE GORMAN MD Aug 15, 2021 10:33
[2021-08-15 11:59] VITALS: BP 138/64
--- NOTE | 2021-08-15 11:59 | Physician Query Clarification ---
Physician Query-General Query to Physician: The medical record reflects the following clinical scenario: The patient, in the setting of History/Risk factors, HTN, AFib, CAD, aortic stenosis Clinical Findings Per Dr Bee's progress notes "normal left ventricular function", BNP 331, Admission Chest X-ray " developing interstitial opacities favored to relate to interstitial edema given worsening cardiomegaly and significant pulmonary vascular congestion" Treatment I and O, Lasix IV, Supplemental 02, Repeat Chest Xray, Cardiology consult Question: Can you further specify Acute on Chronic CHF exacerbation per the clinical indicators above? Please document your response in the Progress Notes or Discharge Summary. 1. Acute on Chronic Diastolic Heart Failure, present on admission 2. Other, with explanation of clinical findings 3. Clinically undetermined, no explanation for clinical findings Please clarify and document your clinical opinion in the Progress Notes and Discharge Summary including the definitive and/or presumptive diagnosis, (suspected or probable), related to the above clinical findings. Please include clinical findings supporting your diagnosis. In responding to this query, please exercise your independent professional judgment. The purpose of this communication is to more accurately reflect the complexity of your patients condition. The fact that a question is asked does not imply that any particular answer is desired or expected. Please remember a lack of response to the above will prompt a phone page by CDI/coding staff. Thank you for timely response to this clarification. Jaimee Giles MSN, RN Clinical Product Marketing Consultant [phone] [email or web address] PHYSICIAN RESPONSE: Based on the clinical findings in the record, please respond to the query above on this document as an addendum. Physician Response: Physician Response 1 If you have questions please contact: Dining Service Worker: Ext: Thank you for your time and cooperation. Clinical Product Marketing Consultant/Dining Service Worker This is a permanent part of the medical record JAIMEE GILES Aug 15, 2021 11:59 KELY WEBSTER MD Aug 18, 2021 09:21
--- NOTE | 2021-08-15 12:01 | Physical Therapy Daily Note ---
PT Daily Note-Current Subjective Patient agrees to PT. Mental Status Attachments: Oxygen Transfers SCALE: Activities may be completed with or without assistive devices. 7-Wszrrzlart-abcmyfv completes the activity by him/herself with no assistance from a helper. 5-Set-up or Clean-up Assistance-helper sets up or cleans up; patient completes activity. [place] assists only prior to or following the activity. 4-Supervision or Touching Assistance-helper provides verbal cues and/or touching/steadying and/or contact guard assistance as patient completes activity. Assistance may be provided throughout the activity or intermittently. 3-Partial/Moderate Assistance-helper does LESS THAN HALF the effort. [place] lifts, holds or supports trunk or limbs, but provides less than half the effort. 2-Substantial/Maximal Assistance-helper does MORE THAN HALF the effort. [place] lifts or holds trunk or limbs and provides more than half the effort. 6-Mozerhuaf-vidxcn does ALL the effort. Patient does none of the effort to complete the activity. Or, the assistance of 2 or more helpers is required for the patient to complete the activity. If activity was not attempted, code reason: 7-Patient Refused. 9-Not Applicable-not attempted and the patient did not perform the activity before the current illness, exacerbation or injury. 10-Not Attempted due to Environmental Limitations-(lack of equipment, weather restraints, etc.). 88-Not Attempted due to Medical Conditions or Safety Concerns. Lying to Sitting/Side of Bed(Q: 4 Sit to Stand (QC): 3 (x 4 sets due to use of commode) Chair/Sqb-ej-Ijupu Xfer(QC): 3 Toilet Transfer (QC): 3 Gait Training Does the Patient Walk?: Yes Distance: 25' Walk 10 feet (QC): 4 Gait Assistive Device: FWW slow, steady, functional gait sequence Exercises Standing: Sit to Stand (x 4 sets) Assessment Current Status: Good Progress Patient able to ambulate 25' with FWW and without difficulty. Patient did re quire assistance to cleanse after toilet use. PT Senior Technologist Goals Senior Care Goals PT Senior Technologist Goals Time Frame: Sep 02, 2021 Roll Left & Right (QC): 3 Sit to Lying (QC): 3 Lying-Sitting on Side/Bed(QC): 3 Sit to Stand (QC): 3 Chair/Yro-sk-Rlrep Xfer(QC): 3 Toilet Transfer (QC): 3 Walk 10 feet (QC): 3 PT Plan Treatment/Plan Treatment Plan: Continue Plan of Care Treatment Plan: Bed Mobility, Education, Functional Activity Bro[place], Functional Strength, Gait, Safety, Therapeutic Exercise, Transfers Treatment Duration: Sep 02, 2021 Frequency: 6 times per week Estimated Hrs Per Day: .25 hour per day Time/GCodes Time In: 822 Time Out: 845 Total Billed Treatment Time: 23 Total Billed Treatment 1 visit FA x 2 23 min NATASHA TINEO PT Aug 15, 2021 12:01
--- NOTE | 2021-08-15 13:03 | Occupational Ther Daily Note ---
OT Current Status-Daily Note Subjective Pt. alert in recliner. Pt. no c/o pain, agrees to therapy. Mental Status/Objective Patient Orientation: Person, Place, Time, Situation Attachments: IV, Oxygen ADL-Treatment Pt. agrees to perform oral hygiene. Pt. given materials, able to apply paste to brush and perform oral care by self seated recliner. Pt. handed warm rag able to wipe face by self. Pt. declined further sponge bath. Pt. in recliner, call light/phone in reach, in room. Therapy Code Descriptions/Definitions Functional [place] Measure: 0=Not Assessed/NA 4=Minimal Assistance 1=Total Assistance 5=Supervision or Setup 2=Maximal Assistance 6=Modified [place] 3=Moderate Assistance 7=Complete IndependenceSCALE: Activities may be completed with or without assistive devices. 3-Bzwwckitgt-rbpizzd completes the activity by him/herself with no assistance from a helper. 5-Set-up or Clean-up Assistance-helper sets up or cleans up; patient completes activity. [place] assists only prior to or following the activity. 4-Supervision or Touching Assistance-helper provides verbal cues and/or touching/steadying and/or contact guard assistance as patient completes activity. Assistance may be provided throughout the activity or intermittently. 3-Partial/Moderate Assistance-helper does LESS THAN HALF the effort. [place] lifts, holds or supports trunk or limbs, but provides less than half the effort. 2-Substantial/Maximal Assistance-helper does MORE THAN HALF the effort. [place] lifts or holds trunk or limbs and provides more than half the effort. 1-Mmlwukyqp-arphfm does ALL the effort. Patient does none of the effort to complete the activity. Or, the assistance of 2 or more helpers is required for the patient to complete the activity. If activity was not attempted, code reason: 7-Patient Refused. 9-Not Applicable-not attempted and the patient did not perform the activity before the current illness, exacerbation or injury. 10-Not Attempted due to Environmental Limitations-(lack of equipment, weather restraints, etc.). 88-Not Attempted due to Medical Conditions or Safety Concerns. Oral Hygiene (QC): 5 OT Car Checker Goals Car Checker Goals Time Frame: Aug 25, 2021 Eating (QC): 6 Oral Hygiene (QC): 5 Toileting Hygiene (QC): 4 Shower/Bathe Self (QC): 4 Upper Body Dressing (QC): 4 Lower Body Dressing (QC): 4 On/Off Footwear (QC): 4 Additional Goals: 1-Demonstrate ADL Tasks, 2-Verbalize Understanding, 3- ImproveStrength/Brodie 1=Demonstrate adherence to instructed precautions during ADL tasks. 2=Patient will verbalize/demonstrate understanding of assistive devices/modif ications for ADL. 3=Patient will improve strength/tolerance for activity to enable patient to perform ADL's. OT Education/Plan Problem List/Assessment Assessment: Decreased Activ Tolerance, Decreased UE Strength, Impaired Funct Balance, Impaired Self-Care Skills Discharge Recommendations Plan/Recommendations: Continue POC Treatment Plan/Plan of Care Patient would benefit from OT for education, treatment and training to promote independence in ADL's, mobility, safety and/or upper extremity function for ADL's. Plan of Care: ADL Retraining, Functional Mobility, UE Funct Exercise/Act Treatment Duration: Aug 25, 2021 Frequency: 5 times per week Estimated Hrs Per Day: .25 hour per day Rehab Potential: Guarded Time/GCodes Start Time: 12:30 Stop Time: 12:52 Total Time Billed (hr/min): 12 Billed Treatment Time 1 visit- ADL 1 (12 min) GLORY VILLAR Aug 15, 2021 13:03
[2021-08-15 15:30] VITALS: BP 154/69
[2021-08-15] MEDS: RIVAROXABAN 20 MG TABLET (XARELTO) PO SCH (17:15)
[2021-08-15 20:00] VITALS: BP 137/64
[2021-08-15] MEDS: traZODone 50 MG (DESYREL) TAB PO SCH (21:01)
[2021-08-15] MEDS: OLANZapine 5 MG (ZyPREXA) TAB PO SCH (21:01)
[2021-08-16 00:24] VITALS: BP 124/58
[2021-08-16] MEDS: LORazepam 0.5 MG (ATIVAN) TABLET PO PRN (02:06)
[2021-08-16] MEDS: HYDROcodone/APAP 7.5 MG/325 MG (LORTAB, LORCET PLUS) TABLET PO PRN ×2 (02:06→08:51)
[2021-08-16 03:40] VITALS: BP 116/53
[2021-08-16 06:52] LABS: BASOPHILS # (AUTO) 0.1 10^3/uL (0.0-0.1); BASOPHILS % (AUTO) 1 % (0-10); EOSINOPHILS # (AUTO) 0.5 10^3/uL (0.0-0.3); EOSINOPHILS % (AUTO) 4 % (0-10); HEMATOCRIT 31 % (35-52); HEMOGLOBIN 9.3 g/dL (11.5-16.0); LYMPHOCYTES # (AUTO) 1.9 10^3/uL (1.0-4.0); LYMPHOCYTES % (AUTO) 17 % (12-44); MEAN CORPUSCULAR HEMOGLOBIN 30 pg (25-34); MEAN CORPUSCULAR HGB CONC 30 g/dL (32-36); MEAN CORPUSCULAR VOLUME 98 fL (80-99); MEAN PLATELET VOLUME 11.9 fL (9.0-12.2); MONOCYTES # (AUTO) 0.7 10^3/uL (0.0-1.0); MONOCYTES % (AUTO) 6 % (0-12); NEUTROPHILS # (AUTO) 8.1 10^3/uL (1.8-7.8); NEUTROPHILS % (AUTO) 72 % (42-75); PLATELET COUNT 274 10^3/uL (130-400); WHITE BLOOD COUNT 11.3 10^3/uL (4.3-11.0)
[2021-08-16] MEDS: KCL 20 MEQ TAB (K-DUR) PO SCH (06:55)
[2021-08-16] MEDS: MAGNESIUM 1 GM/100 ML IVPB 100 ML IV SCH (06:55)
[2021-08-16] MEDS: POTASSIUM CL 10MEQ/50ML IVPB 50 ML IV SCH (06:55)
[2021-08-16 07:21] LABS: CALCIUM 9.1 MG/DL (8.5-10.1); CREATININE SERUM 1.02 MG/DL (0.60-1.30); MAGNESIUM 1.8 MG/DL (1.6-2.4); POTASSIUM 3.3 MMOL/L (3.6-5.0)
[2021-08-16] MEDS: inSUlin ASPART (NovoLOG) 1 UNIT/0.01 ML (CHARGE PER UNIT) SC SCH ×7 (07:28→21:42)
[2021-08-16 07:45] VITALS: BP 141/65
--- NOTE | 2021-08-16 08:28 | Cardiology Progress Note ---
Subjective Date Seen by Provider: Aug 16, 2021 Time Seen by Provider: 15:00 Subjective/Events-last exam Pt reports that she is doing fine this morning, Did state that she is having some SOB and dyspnea. On 3L of O2 at the moment which is how much she is on at home. Review of Systems General: No Chills, No Other (fever) HEENT: No Head Aches, No Visual Changes Pulmonary: Dyspnea; No Cough; Other (SOB) Cardiovascular: No: Chest Pain, Palpitations Gastrointestinal: No: Nausea, Vomiting, Abdominal Pain, Diarrhea, Constipation Musculoskeletal: shoulder pain, leg pain Neurological: No: Weakness, Numbness Objective-Cardiology Exam Last Set of Vital Signs Vital Signs 08/16/21 15:55 Temp 36.6 Pulse 56 Resp 18 B/P (MAP) 137/62 (87) Pulse Ox 96 O2 Delivery Nasal Cannula O2 Flow Rate 3.00 I&O Intake and Output 08/16/21 00:00 Intake Total 990 ml Output Total 1650 ml Balance -660 ml Intake Oral 990 ml Output Urine Total 1650 ml General: Alert, Oriented X3, Cooperative HEENT: Atraumatic, EOMI Neck: Supple, No JVD Lungs: Clear to Auscultation, Normal Air Movement Heart: Regular Rate, Normal S1, Normal S2, No Murmurs Abdomen: Soft, Other Extremities: No Cyanosis, Other (Pedal edema. No pitting edema) Skin: No Rashes, No Breakdown Neuro: Normal Speech Psych/Mental Status: Mental Status NL, Mood NL Results Lab Laboratory Tests 08/16/21 06:32 A/P-Cardiology Admission Diagnosis Acute respiratory failure Chest pain Urinary tract infection Aortic stenosis Assessment/Plan Status post acute respiratory failure with fluid overload and exacerbation of COPD. On 3L O2 via [place]. That is what she is on at home. Chronic pedal edema with fluid overload, improving. Maintained on Lasix, has history of chronic DVT which keeping her baseline as mild to moderate edema. Urinary tract infection, managed by primary care physician Hypokalemia, started on IV potassium chloride. Managed by medicine. Chest pain nonspecific etiology, has extensive history, cardiac catheterization was carried out in April 2021 showing mild disease nonobstructive disease. Patient has history of chronic chest pain with multiple cardiac catheterization done in the past including 2010, 2013 with IVUS to the LAD, and the last cardiac catheterization was done in April 2021. Acute on chronic renal insufficiency, continue to monitor renal function closely. History of moderate aortic valve stenosis, normal left ventricular function with severe pulmonary hypertension, moderate to severe mitral regurgitation, moderate aortic regurgitation, last echo was done in April 2021. Continue to monitor History of patent foramen ovale detected in the previous echo. Continue to monitor Persistent atrial fibrillation, maintained on Xarelto, rate is controlled, continue to monitor [id number] score is 4, yearly risk patient is 4 percent, has been on Xarelto and tolerating it well. Continue to monitor Hypertension, continue to monitor Hyperlipidemia,controlled, continue to monitor Mild bilateral carotid stenosis, last ultrasound was done in Jul 2020 Obesity, BMI is 43, discussed weight loss Benign essential tremor Diabetes mellitus, managed by Dr. Romero. History of renal cysts, has been followed by Dr. Sethi. History of breast cancer, followed and managed by Dr. Fernández. Bipolar disorder Mnires disease Anxiety Depression COPD/Obstructive sleep apnea not using BiPAP at this time. Degenerative joint disease, multiple hip surgeries, MRSA infection. Now followed and managed by primary care physician Supervisory-Addendum Brief Verification & Attestation Participated in pt care: history, MDM, physical Personally performed: exam, history, MDM, supervision of care Care discussed with: Medical Student Procedures: n/a Results interpretation: Verified all documentation Verification and Attestation of Medical Student E/M Service A medical student performed and documented this service in my presence. I reviewed and verified all information documented by the medical student and made modifications to such information, when appropriate. I personally performed the physical exam and medical decision making. Patient was seen at bedside, laying down comfortably, feeling better, breathing better. No new complaint Continue on current medication and monitor. Sheela Pavon, Aug 16, 2021,16:04 REBA GLEZ Aug 16, 2021 08:28 SHEELA PAVON MD Aug 16, 2021 16:05
[2021-08-16] MEDS: FLUoxetine HCL 10 MG (PROzac) CAPSULE/TABLET PO SCH (08:50)
[2021-08-16] MEDS: FUROSEMIDE 40 MG/4 ML INJ (LASIX) IVP SCH ×2 (08:50→16:56)
[2021-08-16] MEDS: metFORMIN 500 MG (GLUCOPHAGE) TAB PO SCH ×2 (08:51→16:55)
[2021-08-16] MEDS: CEPHALEXIN 250 MG (KEFLEX) CAP PO SCH ×2 (08:51→20:06)
[2021-08-16] MEDS: lisINopril 40 MG (PRINIVIL) TABLET PO SCH (08:51)
[2021-08-16] MEDS: FAMOTIDINE 20 MG (PEPCID) TABLET PO SCH (08:51)
[2021-08-16] MEDS: amLODIPine 10 MG (NORVASC) TAB PO SCH (08:51)
[2021-08-16] MEDS: cloNIDine 0.2 MG (CATAPRES) TAB PO SCH ×2 (08:51→20:06)
[2021-08-16] MEDS ORDERED: KCL 20 MEQ TAB (K-DUR) PO ONE ×2 (09:00→11:00)
[2021-08-16] MEDS ORDERED: POTASSIUM CL 10MEQ/50ML IVPB 50 ML IV SCH (09:00)
--- NOTE | 2021-08-16 09:46 | Physical Therapy Daily Note ---
PT Daily Note-Current Subjective Patient in bed pre tx, agrees to PT but doesn't want to try to ambulate, agrees to get into the recliner, has 10/10 pain in right shoulder. Appearance Patient in recliner post tx with nurse call, phone, tray, all needs met, family in room. Mental Status Patient Orientation: Person, Place, Situation Attachments: Oxygen Transfers SCALE: Activities may be completed with or without assistive devices. 4-Dkqkblnkqa-lrlzijh completes the activity by him/herself with no assistance from a helper. 5-Set-up or Clean-up Assistance-helper sets up or cleans up; patient completes activity. [place] assists only prior to or following the activity. 4-Supervision or Touching Assistance-helper provides verbal cues and/or to uching/steadying and/or contact guard assistance as patient completes activity. Assistance may be provided throughout the activity or intermittently. 3-Partial/Moderate Assistance-helper does LESS THAN HALF the effort. [place] lifts, holds or supports trunk or limbs, but provides less than half the effort. 2-Substantial/Maximal Assistance-helper does MORE THAN HALF the effort. [place] lifts or holds trunk or limbs and provides more than half the effort. 1-Qrcaddyna-ypsvng does ALL the effort. Patient does none of the effort to complete the activity. Or, the assistance of 2 or more helpers is required for the patient to complete the activity. If activity was not attempted, code reason: 7-Patient Refused. 9-Not Applicable-not attempted and the patient did not perform the activity before the current illness, exacerbation or injury. 10-Not Attempted due to Environmental Limitations-(lack of equipment, weather restraints, etc.). 88-Not Attempted due to Medical Conditions or Safety Concerns. Roll Left & Right (QC): 3 Lying to Sitting/Side of Bed(Q: 3 Sit to Stand (QC): 4 Chair/Cwe-fd-Tduni Xfer(QC): 4 Gait Training Distance: 10' Walk 10 feet (QC): 4 Gait Persons Needed: 1 Gait Assistive Device: FWW Patient's recliner was placed a little ways from bed so she had to ambulate to it and she did it without difficulty. Cues for hand placement when sitting. Exercises Seated Therapy Exercises: Ankle pumps, Long arc quads Seated Reps: 20 Treatments bed mobility and transfers, ambulation, LE strengthening Assessment Current Status: Fair Progress overall making progress with functional mobility PT Test And Turn Up Technician Goals Test And Turn Up Technician Goals PT Test And Turn Up Technician Goals Time Frame: Sep 02, 2021 Roll Left & Right (QC): 3 Sit to Lying (QC): 3 Lying-Sitting on Side/Bed(QC): 3 Sit to Stand (QC): 3 Chair/Vxr-ng-Rtfln Xfer(QC): 3 Toilet Transfer (QC): 3 Walk 10 feet (QC): 3 PT Plan Problem List Problem List: Activity Tolerance, Functional Strength, Safety, Balance, Gait, Transfer, Bed Mobility, ROM Treatment/Plan Treatment Plan: Continue Plan of Care Treatment Plan: Bed Mobility, Education, Functional Activity Brodie, Functional Strength, Gait, Safety, Therapeutic Exercise, Transfers Treatment Duration: Sep 02, 2021 Frequency: 6 times per week Estimated Hrs Per Day: .25 hour per day Safety Risks/Education Patient Education: Gait Training, Transfer Techniques, Correct Positioning, Safety Issues Teaching Recipient: Patient Teaching Methods: Demonstration, Discussion Response to Teaching: Reinforcement Needed Time/GCodes Time In: 919 Time Out: 935 Total Billed Treatment Time: 16 Total Billed Treatment 1 visit FA HEIDY AGUIRRE PT Aug 16, 2021 09:46
[2021-08-16 11:43] VITALS: BP 116/58
--- NOTE | 2021-08-16 11:53 | Occupational Ther Daily Note ---
OT Current Status-Daily Note Subjective Pt. dozing in recliner. Pt c/o pain, did not rate states always in pain. Pt. agrees to therapy. Mental Status/Objective Patient Orientation: Person, Place, Time, Situation Attachments: Oxygen ADL-Treatment Pt. stated desire to perform oral care. Pt. completed by self seated in recliner after oral hygiene items presented on bedside table. Pt. wiped face with when presented with warm/wet cloth but declined any other cleansing. Therapy Code Descriptions/Definitions Functional [place] Measure: 0=Not Assessed/NA 4=Minimal Assistance 1=Total Assistance 5=Supervision or Setup 2=Maximal Assistance 6=Modified [place] 3=Moderate Assistance 7=Complete IndependenceSCALE: Activities may be completed with or without assistive devices. 7-Nstgdvakim-cyvillv completes the activity by him/herself with no assistance from a helper. 5-Set-up or Clean-up Assistance-helper sets up or cleans up; patient completes activity. [place] assists only prior to or following the activity. 4-Supervision or Touching Assistance-helper provides verbal cues and/or touching/steadying and/or contact guard assistance as patient completes activity. Assistance may be provided throughout the activity or intermittently. 3-Partial/Moderate Assistance-helper does LESS THAN HALF the effort. [place] lifts, holds or supports trunk or limbs, but provides less than half the effort. 2-Substantial/Maximal Assistance-helper does MORE THAN HALF the effort. [place] lifts or holds trunk or limbs and provides more than half the effort. 0-Dmhagnolz-qbrxam does ALL the effort. Patient does none of the effort to complete the activity. Or, the assistance of 2 or more helpers is required for the patient to complete the activity. If activity was not attempted, code reason: 7-Patient Refused. 9-Not Applicable-not attempted and the patient did not perform the activity before the current illness, exacerbation or injury. 10-Not Attempted due to Environmental Limitations-(lack of equipment, weather restraints, etc.). 88-Not Attempted due to Medical Conditions or Safety Concerns. Oral Hygiene (QC): 5 Other Treatment Pt. required encouragement from therapy staff and to move and participate in therapy activities. Pt. stood CGA Mod A using FWW standing, alternating weight on feet 10 reps for 2 sets required one rest break between sets. Pt. seated in recliner, call light/phone in reach. Pt. in room. All needs met in room. OT Mcfp Goals Mcfp Goals Time Frame: Aug 25, 2021 Eating (QC): 6 Oral Hygiene (QC): 5 Toileting Hygiene (QC): 4 Shower/Bathe Self (QC): 4 Upper Body Dressing (QC): 4 Lower Body Dressing (QC): 4 On/Off Footwear (QC): 4 Additional Goals: 1-Demonstrate ADL Tasks, 2-Verbalize Understanding, 3- ImproveStrength/Brodie 1=Demonstrate adherence to instructed precautions during ADL tasks. 2=Patient will verbalize/demonstrate understanding of assistive devices/modifications for ADL. 3=Patient will improve strength/tolerance for activity to enable patient to perform ADL's. OT Education/Plan Problem List/Assessment Assessment: Decreased Activ Tolerance, Decreased Safety Aware, Decreased UE Strength, Impaired Funct Balance, Impaired Self-Care Skills Discharge Recommendations Plan/Recommendations: Continue POC Treatment Plan/Plan of Care Patient would benefit from OT for education, treatment and training to promote independence in ADL's, mobility, safety and/or upper extremity function for ADL's. Plan of Care: ADL Retraining, Functional Mobility, UE Funct Exercise/Act Treatment Duration: Aug 25, 2021 Frequency: 5 times per week Estimated Hrs Per Day: .25 hour per day Rehab Potential: Guarded Time/GCodes Start Time: 11:05 Stop Time: 11:25 Total Time Billed (hr/min): 20 Billed Treatment Time 1 visit- ADL 1 (20 min) GLORY VILLAR Aug 16, 2021 11:53
--- NOTE | 2021-08-16 14:23 | Progress Note - Hospitalist ---
Subjective HPI/CC On Admission Date Seen by Provider: Aug 16, 2021 Time Seen by Provider: 14:19 Agata Pringle is a 75 year old female with PMH HTN, AFib, CAD, aortic stenosis, DVT/PE, T2DM on insulin, MADELYN, morbid obesity, who presented with weakness. She was recently discharged from [facility]. Her reports that she hasn't left her chair since going home. She denies fevers and chills. She has had dysuria. She denies frequency and urgency. She has not been urinating very much. She reports abdominal pain. Subjective/Events-last exam Pt reports doing well. No complaints at this time. She feels like she is doing well with PT but still thinks SNF would be best. is at the bed side and planning to go tour the prison. Objective Exam Vital Signs Vital Signs Date Time Temp Pulse Resp B/P (MAP) Pulse Ox O2 Delivery O2 Flow Rate FiO2 08/16/21 11:43 36.3 57 20 116/58 (77) 98 Nasal Cannula 3.00 Capillary Refill : General Appearance: No Apparent Distress, Chronically ill, Obese Respiratory: Lungs Clear, No Respiratory Distress Cardiovascular: Regular Rate, Rhythm, No Murmur Neurologic/Psychiatric: Alert, Oriented x3 Results/Procedures Lab Laboratory Tests 08/16/21 06:32 Patient resulted labs reviewed. Imaging: Reviewed Imaging Report Assessment/Plan Assessment and Plan Assess & Plan/Chief Complaint Acute respiratory failure with hypoxia Acute on chronic CHF exacerbation Acute kidney injury COVID and flu negative Fully vaccinated for COVID Continue oral Lasix Back to baseline oxygen requirement Klebsiella pneumoniae urinary tract infection Continue oral abx Debility PT/OT Hopeful to DC to SNF soon, awaiting authorization from insurance HTN AFib History of DVT/PE Bipolar disorder Continue home meds Anxiety Ativan as needed Continue Prozac T2DM Continue Levemir and Metformin Novolog with meals Sliding scale insulin Morbid obesity Clinically significant, no acute management needs DVT prophylaxis: already receiving therapeutic anticoagulation Chest pain, resolved ILENE GORMAN MD Aug 16, 2021 14:23
[2021-08-16 15:55] VITALS: BP 137/62
[2021-08-16] MEDS: RIVAROXABAN 20 MG TABLET (XARELTO) PO SCH (16:55)
[2021-08-16] MEDS: traZODone 50 MG (DESYREL) TAB PO SCH (20:06)
[2021-08-16] MEDS: OLANZapine 5 MG (ZyPREXA) TAB PO SCH (20:06)
[2021-08-17] VITALS: BP 145/76
[2021-08-17] MEDS: LORazepam 0.5 MG (ATIVAN) TABLET PO PRN (01:50)
[2021-08-17] MEDS: HYDROcodone/APAP 7.5 MG/325 MG (LORTAB, LORCET PLUS) TABLET PO PRN ×3 (01:50→14:53)
[2021-08-17 01:56] VITALS: BP 145/76
[2021-08-17] MEDS: inSUlin ASPART (NovoLOG) 1 UNIT/0.01 ML (CHARGE PER UNIT) SC SCH ×4 (05:36→12:29)
[2021-08-17] MEDS: POTASSIUM CL 10MEQ/50ML IVPB 50 ML IV SCH (05:37)
[2021-08-17] MEDS: MAGNESIUM 1 GM/100 ML IVPB 100 ML IV SCH (05:37)
[2021-08-17] MEDS: KCL 20 MEQ TAB (K-DUR) PO SCH (05:38)
[2021-08-17] MEDS: FUROSEMIDE 40 MG/4 ML INJ (LASIX) IVP SCH (06:46)
--- NOTE | 2021-08-17 07:35 | Cardiology Progress Note ---
Subjective Date Seen by Provider: Aug 17, 2021 Time Seen by Provider: 08:56 Subjective/Events-last exam Pt reports that she is doing well. States that the size of her legs is about the same as yesterday. When asked denied having any other concerns. Review of Systems General: No Chills, No Other (fever) HEENT: No Head Aches, No Visual Changes Pulmonary: No Dyspnea, No Cough Cardiovascular: Edema; No: Chest Pain, Palpitations, Lt Headedness Gastrointestinal: No: Nausea, Vomiting, Abdominal Pain, Diarrhea, Constipation Genitourinary: No Dysuria; Incontinence Musculoskeletal: shoulder pain, leg pain, foot pain Neurological: No: Weakness, Numbness Objective-Cardiology Exam Last Set of Vital Signs Vital Signs 08/17/21 08/17/21 01:56 08:19 Temp 36.4 Pulse 70 Resp 20 B/P (MAP) 145/76 (99) Pulse Ox 98 O2 Delivery Nasal Cannula O2 Flow Rate 3.00 I&O Intake and Output 08/16/21 23:59 Intake Total 1210 ml Output Total 700 ml Balance 510 ml Intake Oral 1210 ml Output Urine Total 700 ml # Voids 1 General: Alert, Oriented X3, Cooperative HEENT: Atraumatic, EOMI Neck: Supple, No JVD Lungs: Clear to Auscultation, Normal Air Movement Heart: Regular Rate, Normal S1, Normal S2, No Murmurs Abdomen: Soft, Other (Mild tenderness in all 4 quadrants) Extremities: No Cyanosis, Other (Pedal edema. No pitting edema) Skin: No Rashes, No Breakdown Neuro: Normal Speech Psych/Mental Status: Mental Status NL, Mood NL A/P-Cardiology Admission Diagnosis Acute respiratory failure Chest pain Urinary tract infection Aortic stenosis Assessment/Plan Status post acute respiratory failure with fluid overload and exacerbation of COPD. On 3L O2 via [place]. That is what she is on at home. Hopeful to discharge to care facility soon. Waiting for insurance approval. Chronic pedal edema with fluid overload, improving. Maintained on Lasix, has history of chronic DVT which keeping her baseline as mild to moderate edema. Urinary tract infection, managed by primary care physician Hypokalemia, started on IV potassium chloride. Managed by medicine. Chest pain nonspecific etiology, has extensive history, cardiac catheterization was carried out in April 2021 showing mild disease nonobstructive disease. Patient has history of chronic chest pain with multiple cardiac catheterization done in the past including 2010, 2013 with IVUS to the LAD, and the last cardiac catheterization was done in April 2021. Acute on chronic renal insufficiency, continue to monitor renal function closely. History of moderate aortic valve stenosis, normal left ventricular function with severe pulmonary hypertension, moderate to severe mitral regurgitation, moderate aortic regurgitation, last echo was done in April 2021. Continue to monitor History of patent foramen ovale detected in the previous echo. Continue to monitor Persistent atrial fibrillation, maintained on Xarelto, rate is controlled, continue to monitor [id number] score is 4, yearly risk patient is 4 percent, has been on Xarelto and tolerating it well. Continue to monitor Hypertension, continue to monitor Hyperlipidemia,controlled, continue to monitor Mild bilateral carotid stenosis, last ultrasound was done in Jul 2020 Obesity, BMI is 43, discussed weight loss Benign essential tremor Diabetes mellitus, managed by Dr. Romero. History of renal cysts, has been followed by Dr. Sethi. History of breast cancer, followed and managed by Dr. Fernández. Bipolar disorder [place] disease Anxiety Depression COPD/Obstructive sleep apnea not using BiPAP at this time. Degenerative joint disease, multiple hip surgeries, MRSA infection. Now followed and managed by primary care physician Supervisory-Addendum Brief Verification & Attestation Participated in pt care: history, MDM, physical Personally performed: exam, history, MDM, supervision of care Care discussed with: Medical Student Procedures: n/a Results interpretation: Verified all documentation Verification and Attestation of Medical Student E/M Service A medical student performed and documented this service in my presence. I reviewed and verified all information documented by the medical student and made modifications to such information, when appropriate. I personally performed the physical exam and medical decision making. Sheela Pavon, Aug 17, 2021,08:56 REBA GLEZ Aug 17, 2021 07:35 SHEELA PAVON MD Aug 17, 2021 08:57
[2021-08-17 08:00] VITALS: BP 127/58
[2021-08-17] MEDS: cloNIDine 0.2 MG (CATAPRES) TAB PO SCH (08:06)
[2021-08-17] MEDS: FLUoxetine HCL 10 MG (PROzac) CAPSULE/TABLET PO SCH (08:06)
[2021-08-17] MEDS: CEPHALEXIN 250 MG (KEFLEX) CAP PO SCH (08:08)
[2021-08-17] MEDS: FAMOTIDINE 20 MG (PEPCID) TABLET PO SCH (08:08)
[2021-08-17] MEDS: amLODIPine 10 MG (NORVASC) TAB PO SCH (08:08)
[2021-08-17] MEDS: lisINopril 40 MG (PRINIVIL) TABLET PO SCH (08:08)
[2021-08-17] MEDS: metFORMIN 500 MG (GLUCOPHAGE) TAB PO SCH (08:08)
--- NOTE | 2021-08-17 10:12 | Discharge Inst-Skilled Nursing ---
Discharge Inst-Skilled NF Chief Complaint Agata Pringle is a 75 year old female with PMH HTN, AFib, CAD, aortic stenosis, DVT/PE, T2DM on insulin, MADELYN, morbid obesity, who presented with weakness. She was recently discharged from [facility]. Her reports that she hasn't left her chair since going home. She denies fevers and chills. She has had dysuria. She denies frequency and urgency. She has not been urinating very much. She reports abdominal pain. Consult/Follow Up/Orders Skilled NF Admit to: [facility] Certification (SNF) I certify that SNF services are required to be given on an inpatient basis because of the above named patient's need for shelter care on a continuing basis for the conditions(s) for which he/she was receiving inpatient hospital services prior to his/her transfer to the SNF. [facility] Facility Order: Nursing Services, Electric Detector Operator-Evaluate & Treat, Physical Therapy-Evaluate & Treat Oxygen Delivery Method: Nasal Cannula Oxygen Flow Rate L/min (Range): 3lpm Discharge Diet: Low Sodium Diet Daily Activity as Tolerated: Yes Resuscitation Status: Do Not Resuscitate New & Resume Previous Orders Ilene Frausto Aug 17, 2021 10:11 ILENE FRAUSTO MD Aug 17, 2021 10:12
[2021-08-17] MEDS ORDERED: CEPH250C PO (10:16)
[2021-08-17] MEDS ORDERED: INSU100V16 SC (10:16)
[2021-08-17] MEDS ORDERED: INSU100V5 SQ (10:16)
[2021-08-17] MEDS ORDERED: HYDR-3817 PO (10:17)
--- NOTE | 2021-08-17 12:30 | Discharge Summary ---
Diagnosis/Chief Complaint Date of Admission Aug 11, 2021 at 13:32 Date of Discharge Discharge Date: Aug 17, 2021 Admission Diagnosis Urinary tract infection Primary Care Lb Christine DO Discharge Diagnosis (1) UTI (urinary tract infection) Status: Acute (2) VICKIE (acute kidney injury) Status: Acute (3) Physical debility Status: Acute (4) Pulmonary edema Status: Acute (5) Acute exacerbation of CHF (congestive heart failure) Status: Acute (6) Chest pain Status: Resolved Discharge Summary Discharge Physical Exam Allergies: Coded Allergies: Penicillins (Verified Allergy, Mild, 02/19/19) codeine (Verified Allergy, Mild, PT TAKES HYDROCODONE AT HOME, 02/19/19) nitrofurantoin (Verified Allergy, Mild, RASH, 02/19/19) ITCHING/RASH pregabalin (Verified Allergy, Unknown, 02/19/19) sulfur dioxide (Verified Allergy, Unknown, 02/19/19) Vitals & I&Os Vital Signs Date Time Temp Pulse Resp B/P (MAP) Pulse Ox O2 Delivery O2 Flow Rate FiO2 08/17/21 17:00 08/17/21 08:19 98 Nasal Cannula 3.00 08/17/21 08:00 36.6 65 18 General Appearance: No Apparent Distress, Chronically ill, Obese Respiratory: Lungs Clear, No Respiratory Distress Cardiovascular: Regular Rate, Rhythm, No Murmur Neurologic/Psychiatric: Alert, Oriented x3 Hospital Course She was admitted to the hospital due to urinary tract infection and generalized weakness. [facility] for under 2 days before needing to return to the hospital. She was seen by physical therapy and Occupational Therapy to work on her debility. She elected to discharge to [facility] and rehab for continued skilled therapy. She had an uneventful hospital stay and is to follow-up with her primary care provider within the next week. Labs (last 24 hrs) Microbiology 08/09/21 Urine Culture - Final, Complete Klebsiella pneumoniae Patient resulted labs reviewed. Pending Labs Imaging: Reviewed Imaging Report Discussion & Recommendations Discharge Planning: >30 minutes discharge planning Discharge Home Medications: Active Scripts Active Hydrocodone-Acetamin 7.5-325 (Hydrocodone/Acetaminophen) 1 Each Tablet 1 Ea PO Q6H PRN Novolog (Insulin Aspart) 100 Unit/1 Ml Susp 5 Unit SC AC Levemir (Insulin Determir) 1,000 Units/10 Ml Soln 25 Unit SQ HS Cephalexin 250 Mg Capsule 500 Mg PO BID Reported Prozac (Fluoxetine HCl) 10 Mg Capsule 10 Mg PO DAILY Olanzapine 5 Mg Tablet 5 Mg PO HS Voltaren Arthritis Pain (Diclofenac Sodium) 20 Gm Gel..gram. 2 Gm TP BID PRN APPLY TO RIGHT HAND OR AREA OF PATIENTS CHOICE Silver Sulfadiazine 50 Gm Cream..g. 1 Applic TOP BID PRN APPLY A THIN LAYER Miralax (Polyethylene Glycol 3350) 17 Gm Powd.pack 17 Gm PO DAILY MAY HOLD FOR LOOSE STOOLS Melatonin 5 Mg Tablet 5 Mg PO HS Trazodone HCl 50 Mg Tablet 50 Mg PO HS Fluconazole 150 Mg Tablet 150 Mg PO Q72H Metolazone 2.5 Mg Tablet 2.5 Mg PO MO,WE,FR Magnesium Oxide 400 Mg Tablet 400 Mg PO 1200 Vitamin D3 (Cholecalciferol (Vitamin D3)) 125 Mcg Capsule 125 Mcg PO DAILY K-Tab ER (Potassium Chloride) 10 Meq Tablet.er 10 Meq PO DAILY Carvedilol 12.5 Mg Tablet 12.5 Mg PO BID Albuterol Sulfate 2.5 Mg/3 Ml Vial.neb 2.5 Mg NEB Q6H PRN Proair Hfa (Albuterol Sulfate) 1 Puff Puff 2 Puff IH Q6H PRN Famotidine 20 Mg Tablet 20 Mg PO DAILY Ocuvite Adult 50 Plus Softgel (C,E,Zinc,Copper 24/Om3/Lut/Rita) 1 Each Capsule 1 Cap PO DAILY Clonidine HCl 0.1 Mg Tablet 0.1 Mg PO BID Amlodipine Besylate 5 Mg Tablet 5 Mg PO DAILY Xarelto Tablet (Rivaroxaban) 20 Mg Tablet 20 Mg PO HS Lisinopril 40 Mg Tablet 40 Mg PO DAILY Metformin HCl 500 Mg Tablet 500 Mg PO BID Furosemide 40 Mg Tablet 40 Mg PO DAILY Instructions to patient/family Please see electronic discharge instructions given to patient. Problem Qualifiers (1) UTI (urinary tract infection): Urinary tract infection type: acute cystitis Hematuria presence: without hematuria Qualified Codes: N30.00 - Acute cystitis without hematuria (2) Pulmonary edema: Chronicity: acute Qualified Codes: J81.0 - Acute pulmonary edema ILENE GORMAN MD Aug 17, 2021 12:30
--- NOTE | 2021-08-17 12:48 | Occupational Ther Daily Note ---
OT Current Status-Daily Note Subjective Pt. alert in recliner. Pt. agrees to therapy. Mental Status/Objective Patient Orientation: Person, Place, Time, Situation Attachments: IV, Oxygen ADL-Treatment Pt. requests to use commode. Pt. Mod A. to stand from recliner, mind tubing, CGA for SPT to commode. Pt. required assist to cleanse buttocks after BM, Mod A. to stand for cleansing. Pt. states that previously injured shoulder impairs ability to cleanse self states at home uses LH cleansing device. CGA for SPT from commode to recliner. Pt. returned to recliner, call light/phone in reach. All needs met in room. Therapy Code Descriptions/Definitions Functional [place] Measure: 0=Not Assessed/NA 4=Minimal Assistance 1=Total Assistance 5=Supervision or Setup 2=Maximal Assistance 6=Modified [place] 3=Moderate Assistance 7=Complete IndependenceSCALE: Activities may be completed with or without assistive devices. 5-Gwrjmdyqru-xipkcky completes the activity by him/herself with no assistance from a helper. 5-Set-up or Clean-up Assistance-helper sets up or cleans up; patient completes activity. [place] assists only prior to or following the activity. 4-Supervision or Touching Assistance-helper provides verbal cues and/or touching/steadying and/or contact guard assistance as patient completes activity. Assistance may be provided throughout the activity or intermittently. 3-Partial/Moderate Assistance-helper does LESS THAN HALF the effort. [place] lifts, holds or supports trunk or limbs, but provides less than half the effort. 2-Substantial/Maximal Assistance-helper does MORE THAN HALF the effort. [place] lifts or holds trunk or limbs and provides more than half the effort. 9-Gwjakqpof-nwvvgb does ALL the effort. Patient does none of the effort to complete the activity. Or, the assistance of 2 or more helpers is required for the patient to complete the activity. If activity was not attempted, code reason: 7-Patient Refused. 9-Not Applicable-not attempted and the patient did not perform the activity before the current illness, exacerbation or injury. 10-Not Attempted due to Environmental Limitations-(lack of equipment, weather restraints, etc.). 88-Not Attempted due to Medical Conditions or Safety Concerns. Toileting Hygiene (QC): 2 Toilet Transfer (QC): 3 OT Correction Goals Correction Goals Time Frame: Aug 25, 2021 Eating (QC): 6 Oral Hygiene (QC): 5 Toileting Hygiene (QC): 4 Shower/Bathe Self (QC): 4 Upper Body Dressing (QC): 4 Lower Body Dressing (QC): 4 On/Off Footwear (QC): 4 Additional Goals: 1-Demonstrate ADL Tasks, 2-Verbalize Understanding, 3- ImproveStrength/Brodie 1=Demonstrate adherence to instructed precautions during ADL tasks. 2=Patient will verbalize/demonstrate understanding of assistive devices/modifications for ADL. 3=Patient will improve strength/tolerance for activity to enable patient to perform ADL's. OT Education/Plan Problem List/Assessment Assessment: Decreased Activ Tolerance, Decreased Safety Aware, Decreased UE Strength, Impaired Self-Care Skills Discharge Recommendations Plan/Recommendations: Continue POC Treatment Plan/Plan of Care Patient would benefit from OT for education, treatment and training to promote independence in ADL's, mobility, safety and/or upper extremity function for ADL's. Plan of Care: ADL Retraining, Functional Mobility, UE Funct Exercise/Act Treatment Duration: Aug 25, 2021 Frequency: 5 times per week Estimated Hrs Per Day: .25 hour per day Rehab Potential: Guarded Time/GCodes Start Time: 10:50 Stop Time: 11:01 Total Time Billed (hr/min): 11 Billed Treatment Time 1 visit- ADL 1 (11 min) GLORY VILLAR Aug 17, 2021 12:48
[2021-08-17] MEDS ORDERED: FUROSEMIDE 40 MG (LASIX) TAB PO SCH (17:00)
== END 2021-08-17 17:00 | DRG 682 ==
LOC: EDUNIT# 17:03 → ER 17:04 → 4TH 18:20 → OBSVTOIN 08-11 13:32 → 4TH 08-14 17:05
PROVIDERS: ADMIT Internal Medicine; ATTEND Internal Medicine
PROC: 5A09457 Assistance with Respiratory Ventilation, 24-96 Consecutive Hours, Continuous Positive Airway Pressure (ICD-10-PCS; principal; 2021-08-10)
DX: N17.9 Acute kidney failure, unspecified (principal); I50.33 Acute on chronic diastolic (congestive) heart failure; J96.00 Acute respiratory failure, unspecified whether with hypoxia or hypercapnia; I13.0 Hypertensive heart and chronic kidney disease with heart failure and stage 1 through stage 4 chronic kidney disease, or unspecified chronic kidney disease; N39.0 Urinary tract infection, site not specified; I48.21 Permanent atrial fibrillation; Z68.41 Body mass index [BMI] 40.0-44.9, adult; Z66 Do not resuscitate; Z20.822 Contact with and (suspected) exposure to COVID-19; E11.22 Type 2 diabetes mellitus with diabetic chronic kidney disease; N18.9 Chronic kidney disease, unspecified; Z79.4 Long term (current) use of insulin; E87.6 Hypokalemia; J44.9 Chronic obstructive pulmonary disease, unspecified; G47.33 Obstructive sleep apnea (adult) (pediatric); I27.20 Pulmonary hypertension, unspecified; I25.10 Atherosclerotic heart disease of native coronary artery without angina pectoris; E78.00 Pure hypercholesterolemia, unspecified; E78.5 Hyperlipidemia, unspecified; I08.0 Rheumatic disorders of both mitral and aortic valves; F03.90 Unspecified dementia, unspecified severity, without behavioral disturbance, psychotic disturbance, mood disturbance, and anxiety; K21.9 Gastro-esophageal reflux disease without esophagitis; M19.91 Primary osteoarthritis, unspecified site; M79.7 Fibromyalgia; M54.9 Dorsalgia, unspecified; E66.01 Morbid (severe) obesity due to excess calories; H35.30 Unspecified macular degeneration; F41.9 Anxiety disorder, unspecified; F31.9 Bipolar disorder, unspecified; I65.23 Occlusion and stenosis of bilateral carotid arteries; G25.0 Essential tremor; H81.09 Meniere's disease, unspecified ear; B96.1 Klebsiella pneumoniae [K. pneumoniae] as the cause of diseases classified elsewhere; Z88.0 Allergy status to penicillin; Z86.711 Personal history of pulmonary embolism; Z86.718 Personal history of other venous thrombosis and embolism; I25.2 Old myocardial infarction; Z85.3 Personal history of malignant neoplasm of breast; Z83.3 Family history of diabetes mellitus; Z82.49 Family history of ischemic heart disease and other diseases of the circulatory system
CPT/HCPCS: 36410; 36415; 51701; 71045; 76937; 80048; 80053; 81000; 82947; 83735; 83880; 84145; 84484; 85007; 85025; 85027; 87077; 87088; 87186; 87636; 93005; 94640; 94660; 94760; G0378

== ENCOUNTER → 2021-09-22 | Outpatient (CLI) | payer MEDICARE, MEDICAID ==
[~2021-09-22] MED LIST changes: +DICL20GE TP; +FLUO10CA29 PO; +HYDR-3817 PO; +INSU100V16 SC; -MAGN400T8 PO; +MELA5TAB14 PO; +MGX400T PO; +OLN5T PO; +SILV50CR28 TOP; +TRZ50T PO
[2021-09-22 20:33] LABS: BILIRUBIN,URINE NEGATIVE (NEGATIVE); CLARITY,URINE CLEAR; COLOR,URINE YELLOW; GLUCOSE, URINE (UA) NEGATIVE (NEGATIVE); KETONES,URINE NEGATIVE (NEGATIVE); LEUKOCYTE ESTERASE ,URINE NEGATIVE (NEGATIVE); NITRITE,URINE NEGATIVE (NEGATIVE); PROTEIN,URINE NEGATIVE (NEGATIVE)
[2021-09-22 20:54] LABS: BACTERIA,URINE TRACE /HPF; WBC,URINE 0-2 /HPF
== END ==
LOC: LABNPT 20:21
PROVIDERS: ATTEND Internal Medicine
DX: R82.79 Other abnormal findings on microbiological examination of urine (principal)
CPT/HCPCS: 81000

== ENCOUNTER → 2021-12-05 | Outpatient (CLI) | payer MEDICARE, MEDICAID ==
[~2021-12-05] MED LIST changes: +CYCL10TA25 PO; -CYCL10TA9 PO; -LEVO500T80 PO; +LEVO500T81 PO; +POTA-179 PO; -POTA20TA15 PO
--- NOTE | 2021-12-05 12:52 | Diagnostic Imaging Report ---
INDICATION: Routine screening. COMPARISON: 05/31/2020 and 02/24/2019. TECHNIQUE: Unilateral left 2D and 3D screening mammography was performed with CAD. FINDINGS: Scattered fibroglandular densities in the left breast are noted. Circumscribed benign nodules in the left breast are noted. Benign calcifications are noted. No spiculated mass or malignant-appearing microcalcifications are seen. The left axilla is unremarkable. IMPRESSION: No mammographic features suspicious for malignancy are identified. ACR BI-RADS Category 2: Benign findings. Result letter will be mailed to the patient. Note: At least 10% of breast cancer is not imaged by mammography. Dictated by: Dictated on workstation # [id number]
== END ==
LOC: RAD 10:45
PROVIDERS: ATTEND Internal Medicine
DX: Z12.31 Encounter for screening mammogram for malignant neoplasm of breast (principal)
CPT/HCPCS: 77063

== ENCOUNTER → 2022-09-05 | Outpatient (CLI) | payer MEDICARE, MEDICAID ==
[~2022-09-05] MED LIST changes: +BUPR-105 PO; -BUPR150T14 PO; -FLUC150T2 PO; +FLUC150T41 PO; +LEVO-55 PO; -LEVO500T81 PO; +LEVO750T PO; -LEVO750T39 PO
== END ==
LOC: CARD 13:38
PROVIDERS: ATTEND Internal Medicine Cardiovascular Disease
DX: I08.3 Combined rheumatic disorders of mitral, aortic and tricuspid valves (principal); I10 Essential (primary) hypertension
CPT/HCPCS: 93306

== ENCOUNTER → 2023-01-02 | Outpatient (CLI) | payer MEDICARE, MEDICAID ==
[~2023-01-02] MED LIST changes: +ALBU8.5H6 IH
--- NOTE | 2023-01-02 13:52 | Diagnostic Imaging Report ---
Indication: Routine screening. Comparison is made with prior mammogram from 12/05/2021 and 05/31/2020. Unilateral left 2-D and 3-D screening mammography was performed with CAD. CAD is utilized. The current study was also evaluated with a Computer Aided Detection (CAD) system. Scattered fibroglandular densities in the left breast are noted. Previously noted circumscribed nodules in the left breast have decreased in size. There are scattered benign calcifications. No spiculated mass or malignant-appearing microcalcifications are seen. Left axilla is unremarkable. IMPRESSION: BI-RADS Category 2 No mammographic features suspicious for malignancy are identified. ACR BI-RADS Category 2: Benign findings. Result letter will be mailed to the patient. Note: At least 10% of breast cancer is not imaged by mammography. Dictated by: Dictated on workstation # [id number]
== END ==
LOC: RAD 09:44
PROVIDERS: ATTEND Internal Medicine
DX: Z12.31 Encounter for screening mammogram for malignant neoplasm of breast (principal)
CPT/HCPCS: 77063

== ENCOUNTER 2023-04-10 06:46 | Emergency (ER) | payer MEDICARE, MEDICAID ==
[~2023-04-10] VITALS: Ht 175 cm; Wt 100.0 kg
[~2023-04-10 06:46] MED LIST changes: -INSU100I29 SC; +INSU100I30 SC
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
[2023-04-10] MEDS ORDERED: OXYMETAZOLINE (AFRIN) 0.05% NA 30 ML BTL SCH (07:15)
[2023-04-10] MEDS ORDERED: CEPH500T PO (09:19)
[2023-04-10 09:23] VITALS: BP 162/88
== END 2023-04-10 09:35 | disposition home or self-care (01) ==
LOC: EDUNIT# 06:46 → ER 06:48
DX: R04.0 Epistaxis (principal); I48.91 Unspecified atrial fibrillation; G47.30 Sleep apnea, unspecified; E11.9 Type 2 diabetes mellitus without complications; E66.9 Obesity, unspecified; Z68.32 Body mass index [BMI] 32.0-32.9, adult; Z79.4 Long term (current) use of insulin; Z79.01 Long term (current) use of anticoagulants; Z99.89 Dependence on other enabling machines and devices; Z99.81 Dependence on supplemental oxygen; Z88.0 Allergy status to penicillin; Z88.1 Allergy status to other antibiotic agents
CPT/HCPCS: 30901

== ENCOUNTER 2023-08-27 13:22 | Emergency (ER) | payer MEDICARE, MEDICAID ==
[~2023-08-27] VITALS: Ht 175.2 cm; Wt 100.2 kg
[~2023-08-27 13:22] MED LIST changes: +CEPH500T PO; +FAMO-356 PO; -FAMO20TA3 PO; -MECL-149 PO; +MECL-291 PO; +POTA-185 PO; -POTA10TA PO; -PROC10TA10 PO; +PROC10TA15 PO
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
--- NOTE | 2023-08-27 15:29 | Diagnostic Imaging Report ---
EXAMINATION: Pelvis, single view. Right hip, 2 views. COMPARISON: September 03, 2015. HISTORY: 77-year-old female, right hip pain. FINDINGS: The pubic symphysis and sacroiliac joints are normally aligned. The hips are not dislocated. There is no pronounced joint space loss of either hip, osteophyte formation, or subchondral cystic change. There is hardware at the level of the right proximal femur including cerclage wires. There is a healed prior fracture deformity of the right proximal femur without a residual fracture line. There is no identified acute fracture. There is no cortical or aggressive bone destruction. There are degenerative changes of the imaged lower lumbar spine at L4-L5 and L5-S1. There are areas of degenerative type enthesopathy. The bones are potentially demineralized. IMPRESSION: 1. Bone demineralization without radiographically apparent fracture. 2. Intact hardware in the right proximal femur with healed prior fracture deformity of the right proximal femur. 3. Degenerative changes of the imaged lower lumbar spine. Dictated by: Dictated on workstation # [id number]
[2023-08-27] MEDS ORDERED: LIDO1ADH78 TP (15:45)
[2023-08-27] MEDS ORDERED: LIDOCAINE 4% PATCH ONE (16:01)
[2023-08-27 16:08] VITALS: BP 188/75
[2023-08-28] MEDS ORDERED: LIDOCAINE 4% PATCH TOP SCH (09:00)
== END 2023-08-27 16:08 | disposition home or self-care (01) ==
LOC: EDUNIT# 13:22 → ER 13:24
DX: M25.551 Pain in right hip (principal); G89.29 Other chronic pain; E11.9 Type 2 diabetes mellitus without complications; E66.9 Obesity, unspecified; Z96.641 Presence of right artificial hip joint; Z68.32 Body mass index [BMI] 32.0-32.9, adult; Z79.4 Long term (current) use of insulin

== ENCOUNTER → 2023-10-16 | Outpatient (CLI) | payer MEDICARE, MEDICAID ==
[~2023-10-16] MED LIST changes: +LIDO1ADH78 TP
== END ==
LOC: LAB 19:57
PROVIDERS: ATTEND Internal Medicine
DX: M25.551 Pain in right hip (principal)